=== PATIENT | female | born 1975 | race Caucasian/White ===

== ENCOUNTER 2023-03-13 00:12 | Emergency (ER) | payer MEDICAID, SELFPAY ==
[2023-03-13 00:18] VITALS: BP 141/96; PULSE 80; RESP 17; TEMP 36.9; O2SAT 97; BMI 37.5
[2023-03-13 00:19] VITALS: BP 141/96
--- NOTE | 2023-03-13 00:24 | ECG_ITS ---
The 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
--- NOTE | 2023-03-13 00:47 | ED.CHESTPAI1 ---
HPI - Chest Pain General Chief Complaint: Chest Pain Stated Complaint: CHEST PAIN Time Seen by Provider: 03/13/23 00:36 Source: patient Mode of arrival: Wheelchair Limitations: no limitations History of Present Illness HPI narrative: This 47-year-old female who states she has a history of heart disease and underwent coronary catheterization in [place] earlier this year presents for evaluation of pain in her upper abdomen that radiates up into her chest and states that she has some tingling and numbness of her left 5th finger. The patient states the symptoms started after eating 2 chili dog several days ago. She did not tell her because she did not want to worry him. She has not had any episodes of shortness of breath dizziness or diaphoresis. She does take a proton pump inhibitor. She still has her gallbladder and her states that at one point they thought that her gallbladder was her problem but they ruled that out. She has not had a fever. She states she did have a coughing spell prior to coming to the hospital where she thought she was going to vomit but did not throw up. She has not had any vomiting or diarrhea. I did review prior records and on 06/18/2022 she had a right upper quadrant ultrasound that showed thickening of the gallbladder without stones or pericholecystic fluid. Related Data Home Medications Medication Instructions Recorded Confirmed aspirin 81 mg tablet,delayed mg 03/13/23 release (Lynn Low Dose Aspirin) bumetanide 0.5 mg tablet mg 03/13/23 empagliflozin 10 mg tablet mg 03/13/23 (Jardiance) famotidine 20 mg tablet mg 03/13/23 metoprolol succinate 100 mg mg PO 03/13/23 tablet,extended release 24 hr omeprazole 40 mg capsule,delayed mg 03/13/23 release rosuvastatin 10 mg tablet mg 03/13/23 spironolactone 25 mg tablet mg 03/13/23 Allergies Allergy/AdvReac Type Severity Reaction Status Date / Time codeine AdvReac Mild Nausea Verified 03/13/23 00:25 keflex AdvReac Intermediate Hallucinati Uncoded 03/13/23 00:25 ng Review of Systems ROS Status of ROS 10 or more systems reviewed and unremarkable except as noted in history and below PFSH PFSH Social History Smoking status: Current every day smoker Exam Narrative Exam Narrative: Nurses note and vital signs reviewed and patient is not hypoxic. General: The patient appears well and in no apparent distress. Patient is resting comfortably on cart. Skin: Warm, dry, no pallor noted. There is no rash noted. Head: Normocephalic, atraumatic Eye: Normal conjunctiva, no drainage, EOMI. PERRL. no scleral icterus Ears, Nose, Mouth, and Throat: oral mucosa is moist. edentulous Cardiovascular: Regular Rate and Rhythm Respiratory: Patient is in no distress, no accessory muscle use, lungs are clear to auscultation, no wheezing, rales or rhonchi Back: non-tender, no CVA tenderness bilaterally to percussion. GI: Obese, soft, mild tenderness in the epigastrium and RUQ, no pulsatile masses, bowel sounds are normal Musculoskeletal: The patient has no evidence of calf tenderness, no pitting edema, symmetrical pulses noted bilaterally Neurological: A&O x4, normal speech Psychiatric: Cooperative Constitutional Vital Signs, click to edit/add: Last Vital Signs Temp 98.4 F 03/13/23 00:18 Pulse 80 03/13/23 00:18 Resp 17 03/13/23 00:18 BP 123/78 03/13/23 02:30 Pulse Ox 97 03/13/23 00:18 O2 Del Method Room Air 03/13/23 00:18 Course Vital Signs Vital signs: Vital Signs Temperature 98.4 F 03/13/23 00:18 Pulse Rate 80 03/13/23 00:18 Respiratory Rate 17 03/13/23 00:18 Blood Pressure 141/96 H 03/13/23 00:18 Pulse Oximetry 97 03/13/23 00:18 Oxygen Delivery Method Room Air 03/13/23 00:18 Temperature 98.4 F 03/13/23 00:18 Pulse Rate 80 03/13/23 00:18 Respiratory Rate 17 03/13/23 00:18 Blood Pressure 123/78 03/13/23 02:30 Pulse Oximetry 97 03/13/23 00:18 Oxygen Delivery Method Room Air 03/13/23 00:18 MDM - Chest Pain MDM Narrative Medical decision making narrative: This 47-year-old female who states she has a history of heart disease but had a negative cardiac catheter earlier this year presents for evaluation of pain in her upper abdomen that radiates up into her chest and numbness of her left 5th finger. The pain has been ongoing for the past several days after she ate 2 chili dogs. She has not had any vomiting or diarrhea. She states she is supposed to be on Eliquis but is not currently taking. The reason she is supposed to be on Eliquis is because she had a deep vein thrombosis in her arm after her cardiac cath. The patient's physical exam was benign. Her lungs are clear, pulses are brisk and equal. Abdomen is soft with mild tenderness in the epigastrium and right upper quadrant. She did have an ultrasound of her gallbladder in the recent past that showed gallbladder wall thickening without stones or pericholecystic fluid. Arrival an EKG was done that was a sinus rhythm at 77 beats for minute. She was medicated with 324 mg baby aspirin and IV Pepcid. On reevaluation she states she is feeling somewhat better but was still having some burning in her upper abdomen. She was then medicated with Toradol with control of her pain. She has a normal troponin. Normal d-dimer. Her white blood cell count is elevated at 14 without any sign of infection. Glucose is mildly elevated at 175. The remainder of her electrolytes, LFTs and lipase are normal. After a brief stay in emergency Department she requested to be discharged home because she was feeling better and her needed to get to work. I encouraged her to follow closely with her family physician and monitor her by mouth intake as she may have some degree of gastritis or biliary dyskinesia. I reviewed her chest x-ray and it is clear with mild cardiomegaly, no focal infiltrate and normal mediastinum Medical Records Data Medical records narrative: The [address] [address] Patient Name: CHINMAY HANNAH MRN: [id number] date: 1975 Sex: F Assigned Patient Location: MAIN Current Patient Location: MAIN Accession/Order Number: [id number] Exam Date: 06/18/2022 11:27 Report Date: 06/18/2022 12:36 At the request of: ALISHA MARKER Procedure: US SINGLE QUAD RT UPPER EXAMINATION: US SINGLE QUAD RT UPPER HISTORY: Abdominal pain ; right upper quadrant pain, epigastric pain COMPARISON: No relevant comparison available. TECHNIQUE: Transabdominal evaluation of the right upper quadrant. FINDINGS: LIVER: Normal size and echotexture. Color Doppler demonstrates patent hepatic veins. PORTAL VEIN: Duplex Doppler demonstrates normal hepatopetal flow pattern with flow velocity averaging 27 cm/s. GALLBLADDER: [Compression wall thickening, 4 mm. No stones or free fluid. BILIARY: No abnormal dilation or stones. Common bile duct diameter is within normal limits. PANCREASE: No visible mass, abnormal atrophy, or duct dilation. KIDNEY: No hydronephrosis. No visible mass or stones. Size: 10.3 x 5.3 x 4.1 cm Other: Free fluid within right pleural space. IMPRESSION: 1. Abnormal wall thickening of gallbladder without stones, Momin's sign, or free fluid; chronic versus acute cholecystitis. 2. Small right pleural effusion. Electronically authenticated by: JT GRADY Date: 2022-06-18 12:36 Electronically authenticated by: JT GRADY Date: 06/18/2022 12:36 Lab Data Labs: Lab Results 03/13/23 03/13/23 Range/Units 00:45 00:46 WBC 14.1 H (4.0-11.0) 10^3/uL RBC 5.08 (4.20-5.40) 10^6/uL Hgb 15.6 (12.0-16.0) g/dL Hct 48.2 H (36.0-48.0) % MCV 94.9 (81.0-99.0) fL MCH 30.7 (26.7-34.0) pg MCHC 32.4 (29.9-35.2) g/dL RDW 12.2 (11.0-15.0) % Plt Count 295 (150-450) 10^3/uL MPV 9.7 (9.5-13.5) fL Neut % (Auto) 81.2 H (43.0-75.0) % Lymph % (Auto) 10.3 L (20.5-60.0) % [place] % (Auto) 5.5 (1.7-12.0) % Eos % (Auto) 2.2 (0.9-7.0) % Baso % (Auto) 0.5 (0.2-2.0) % Neut # (Auto) 11.4 H (1.4-6.5) 10^3/uL Lymph # (Auto) 1.5 (1.2-3.8) 10^3/uL [place] # (Auto) 0.8 (0.3-0.8) 10^3/uL Eos # (Auto) 0.3 (0.0-0.7) 10^3/uL Baso # (Auto) 0.1 (0.0-0.1) 10^3/uL Abs Immat Gran (auto) 0.04 H (0.00-0.03) 10^3/uL Imm/Tot Granulo (auto) 0.3 (0.0-0.5) % D-Dimer 0.28 (<=0.59) mg/L FEU Sodium 140 (136-145) mmol/L Potassium 4.1 (3.5-5.1) mmol/L Chloride 103 (98-107) mmol/L Carbon Dioxide 26.9 (21.0-32.0) mmol/L Anion Gap 14.2 BUN 19.0 H (7.0-18.0) mg/dL Creatinine 1.19 H (0.55-1.02) mg/dL Est GFR ( Amer) 58 L (>=60) Est GFR (Non-Af Amer) 48 L (>=60) BUN/Creatinine Ratio 16.0 Glucose 175 H (74-106) mg/dL Calcium 9.2 (8.5-10.1) mg/dL Total Bilirubin 0.2 (0.2-1.0) mg/dL AST 24 (15-37) U/L ALT 25 (14-59) U/L Alkaline Phosphatase 102 (46-116) U/L Troponin I High Sens 7.6 (4.0-51.3) pg/mL Total Protein 8.2 (6.4-8.2) g/dL Albumin 3.8 (3.4-5.0) g/dL Globulin 4.4 g/dL Albumin/Globulin Ratio 0.9 Lipase 53.0 (16.0-77.0) U/L ECG Data Attestation: I personally reviewed and interpreted this ECG as follows: (EKG interpretation sinus rhythm at 77 beats for minute, normal axis, diffusely flattened T waves, no acute ST segment elevation or T-wave inversion) Heart Score History: Slightly/Non-Suspicious ECG: Normal Age: >45-<65 years Risk Factors: 1 or 2 Risk Factors Troponin: <Normal Limit Total Heart Score Recommendations & Risks:: 2 Discharge Plan Discharge Chief Complaint: Chest Pain Clinical Impression: Gastritis, Non-cardiac chest pain Patient Disposition: Home, Self-Care Time of Disposition Decision: 02:48 Condition: Good Prescriptions / Home Meds: No Action metoprolol succinate 100 mg tablet extended release 24 hr PO omeprazole 40 mg capsule,delayed release(DR/EC) aspirin [Lynn Low Dose Aspirin] 81 mg tablet,delayed release (DR/EC) spironolactone 25 mg tablet famotidine 20 mg tablet bumetanide 0.5 mg tablet rosuvastatin 10 mg tablet Jardiance 10 mg tablet Instructions: Gastritis (DC), Diet for Stomach Ulcers and Gastritis (ED), Noncardiac Chest Pain (ED) Stand Alone Forms: Portal Instructions Referrals: Physician,Non-Staff, MD [Primary Care Provider] - 1 week
--- NOTE | 2023-03-13 00:51 | XR_ITS ---
The [place] [id number] Patient Name: CHINMAY HANNAH MRN: [id number] date: 1975 Sex: F Assigned Patient Location: ER Current Patient Location: Accession/Order Number: [id number] Exam Date: 03/13/2023 01:10 Report Date: 03/13/2023 03:10 At the request of: ALISHA MARKER Procedure: XR chest 1V EXAM: XR chest 1V HISTORY: CP COMPARISON: CTA chest, 07/15/2022. TECHNIQUE: AP upright portable chest x-ray. FINDINGS: The heart, mediastinum, lungs and pleural spaces appear within normal limits. XR/XR chest 1V IMPRESSION: Nonacute chest. Electronically authenticated by: DUKE OSMAN Date: 03/13/2023 03:10
[2023-03-13 01:06] LABS: Basophils Absolute Auto 0.1 10^3/uL (0.0-0.1); Basophils Percent Auto 0.5 % (0.2-2.0); Eosinophils Absolute Auto 0.3 10^3/uL (0.0-0.7); Eosinophils Percent Auto 2.2 % (0.9-7.0); Hematocrit 48.2 % (36.0-48.0); Hemoglobin 15.6 g/dL (12.0-16.0); Immature Granulocytes Abs Auto 0.04 10^3/uL (0.00-0.03); Immature Granulocytes Pct Auto 0.3 % (0.0-0.5); Lymphocytes Absolute Auto 1.5 10^3/uL (1.2-3.8); Lymphocytes Percent Auto 10.3 % (20.5-60.0); Mean Corpuscular HGB Conc 32.4 g/dL (29.9-35.2); Mean Corpuscular Hemoglobin 30.7 pg (26.7-34.0); Mean Corpuscular Volume 94.9 fL (81.0-99.0); Mean Platelet Volume 9.7 fL (9.5-13.5); Monocytes Absolute Auto 0.8 10^3/uL (0.3-0.8); Monocytes Percent Auto 5.5 % (1.7-12.0); Neutrophils Absolute Auto 11.4 10^3/uL (1.4-6.5); Neutrophils Percent Auto 81.2 % (43.0-75.0); Platelet Count 295 10^3/uL (150-450); Red Blood Count 5.08 10^6/uL (4.20-5.40); Red Cell Distribution Width 12.2 % (11.0-15.0); White Blood Count 14.1 10^3/uL (4.0-11.0)
[2023-03-13] MEDS: 0.9 % SODIUM CHLORIDE 1,000 ML 125 ML IV (01:08)
[2023-03-13] MEDS: ASPIRIN 81 MG TAB.CHEW 324 MG PO (01:09)
[2023-03-13] MEDS: PANTOPRAZOLE SODIUM 40 MG VIAL IV (01:09)
[2023-03-13 01:26] LABS: Alanine Aminotransferase 25 U/L (14-59); Albumin Globulin Ratio 0.9; Albumin Level 3.8 g/dL (3.4-5.0); Alkaline Phosphatase 102 U/L (46-116); Anion Gap 14.2; Aspartate Amino Transferase 24 U/L (15-37); Bilirubin Total 0.2 mg/dL (0.2-1.0); Calcium 9.2 mg/dL (8.5-10.1); Carbon Dioxide 26.9 mmol/L (21.0-32.0); Chloride 103 mmol/L (98-107); Estimated GFR (African America 58 (>=60); Estimated GFR (Non-African Ame 48 (>=60); Globulin 4.4 g/dL; Glucose 175 mg/dL (74-106); Potassium 4.1 mmol/L (3.5-5.1); Sodium 140 mmol/L (136-145); Total Protein 8.2 g/dL (6.4-8.2); Troponin I High Sensitivity 7.6 pg/mL (4.0-51.3)
[2023-03-13 01:30] VITALS: BP 115/72
[2023-03-13 02:01] VITALS: BP 146/103
[2023-03-13 02:10] LABS: D Dimer 0.28 mg/L FEU (<=0.59)
[2023-03-13 02:30] VITALS: BP 123/78
[2023-03-13] MEDS: KETOROLAC TROMETHAMINE 30 MG/ML VIAL IVP (02:41)
[2023-03-13 02:55] VITALS: BP 123/63; PULSE 78; RESP 15; O2SAT 97
== END 2023-03-13 02:58 | disposition home or self-care (01) ==
PROVIDERS: Emergency Provider Emergency Medicine
DX: R07.89 Other chest pain (principal); K29.70 Gastritis, unspecified, without bleeding; Z79.82 Long term (current) use of aspirin; Z79.899 Other long term (current) drug therapy; F17.200 Nicotine dependence, unspecified, uncomplicated; Z86.718 Personal history of other venous thrombosis and embolism
CPT/HCPCS: 36415; 71045; 80053; 83690; 84484; 85025; 85378; 93005; 96374; 96375; 99285

== ENCOUNTER 2023-06-02 02:52 | Emergency (ER) | payer MEDICAID, SELFPAY ==
[2023-06-02 02:55] VITALS: BP 158/92; PULSE 78; RESP 16; TEMP 36.2; O2SAT 99; BMI 39.7
--- OUTSIDE RECORDS SUMMARY | 2023-06-02 03:03 | XMS_ITS | CCD ---
Author Name Unknown Address [address] [place] [address] Organization [facility] Care Team Providers Care Lab Scientist Name Role Phone PIERSON EDILSON, EDILSON~[phone] PIERSON Attending Unavailable PIERSON EDILSON, EDILSON~[phone] PIERSON Primary Care Unavailable PIERSON EDILSON, EDILSON~[phone] PIERSON Attending Unavailable PIERSON EDILSON, EDILSON~[phone] PIERSON Primary Care Unavailable PIERSON EDILSON, EDILSON~[phone] PIERSON Primary Care Unavailable PIERSON EDILSON, EDILSON~[phone] PIERSON Attending Unavailable MIRELA, ALVA Primary Care Unavailable DR ISACC SABA Attending Unavailable DR ISACC SABA Admitting Unavailable DR ISACC SABA Consulting Unavailable CELINE KO Consulting Unavailable MIRELA, ALVA Primary Care Unavailable LINDSEY, ROBERT Consulting Unavailable LINDSEY, ROBERT Attending Unavailable LINDSEY, ROBERT Admitting Unavailable LIOR JIANG Consulting Unavailable MIRELA, ALVA Primary Care Unavailable LINDSEY, ROBERT Consulting Unavailable LINDSEY, ROBERT Attending Unavailable LINDSEY, ROBERT Admitting Unavailable HAYLEE KILPATRICK Consulting Unavailable NATHAN HARRIS Consulting Unavailable LINDSEY, ROBERT Consulting Unavailable LINDSEY, ROBERT Attending Unavailable LINDSEY, ROBERT Admitting Unavailable MIRELA, ALVA Primary Care Unavailable PAY ., DR LAGOS Admitting Unavailable MIRELA, ALVA Primary Care Unavailable LIZANDRO LATIF Consulting Unavailable PAY ., DR LAGOS Attending Unavailable GELACIO FRAZIER Consulting Unavailable DR ISACC SABA Attending Unavailable DR ISACC SABA Admitting Unavailable MIRELA, ALVA Primary Care Unavailable DR ISACC SABA Consulting Unavailable LIOR JIANG Consulting Unavailable MIRELA, ALVA Primary Care Unavailable BRIAR, DR SHARRI Briggs Attending Unavailable NADERER, DR SHARRI Briggs Admitting Unavailable ROMNEY, DR LIZANDRO Ojeda Consulting Unavailable NADERER, DR SHARRI Briggs Consulting Unavailable LINDSEY, ROBERT Consulting Unavailable EDDY MELGOZA Consulting Unavailable MARKER ., DR BRITO Admitting Unavailable MARKER ., DR BRITO Attending Unavailable ZIKIRSTENER, DR JT Gao Consulting Unavailable MIRELA, ALVA Primary Care Unavailable MARKER ., DR BRITO Consulting Unavailable MARLON ., PENNY Attending Unavailable MARLON ., PENNY Admitting Unavailable MIRELA, ALVA Primary Care Unavailable MARLON ., PENNY Consulting Unavailable OSWALDO QUIROZ Consulting Unavailable MARKER ., DR BRITO Consulting Unavailable MARKER ., DR BRITO Attending Unavailable MIRELA, ALVA Primary Care Unavailable MARKER ., DR BRITO Admitting Unavailable LINDSEY, ROBERT Attending Unavailable LINDSEY, ROBERT Admitting Unavailable LINDSEY, ROBERT Consulting Unavailable MIRELA, ALVA Primary Care Unavailable DILCIA, PEDRO Consulting Unavailable TRINITY ELLIS Consulting Unavailable MARKER ., DR BRITO Admjoselo Unavailable MARKER ., DR BRITO Consulting Unavailable MARKER ., DR BRITO Attending Unavailable MIRELA, ALVA Primary Care Unavailable Mejia Josi CLAROS Primary Care Provider MEJIA, JAVANHAMID Jennifer Referring Unavailable MEJIA, MUHAMID M Primary Care Unavailable SAHDYJAMAR Robles Referring Unavailable MEJIA, MUHAMID M Primary Care Unavailable SHADYJAMAR Referring Unavailable MEJIA, MUHAMID M Primary Care Unavailable TYRON GRANDA Referring Unavailable MEJIA, MUHAMID M Primary Care Unavailable TYRON GRANDA Referring Unavailable MEJIA, MUHAMID M Primary Care Unavailable SHADYJAMAR Attending Unavailable SHADY, JAMAR M Referring Unavailable MEJIA, MUHAMID M Primary Care Unavailable Allergies Allergy Classification Reported Allergen(s) Allergy Type Date of Onset Reaction(s) Facility (7 sources) Codeine; Translations: [CODEINE] Drug Allergy 1 Anaphylaxis [facility] Repository (1 source) Cephalexin Drug Allergy 2 [facility] Repository (5 sources) Cephalexin; Translations: [CEPHALEXIN] Drug Allergy 2 [facility] Medications Current Medications Medication Drug Class(es) Dates Sig (Normalized) Sig (Original) [id number] 200 actuat albuterol 0.09 mg/actuat metered dose inhaler (4 sources) beta2-Adrenergic Agonist Start: 05-12-2022 take 2 puff(s) by inhalation every four hours as needed VENTOLIN HFA 90 mcg/actuation inhaler 2 puffs every 4 (four) hours as needed. 0 05/12/2022 Active apixaban 5 mg oral tablet (5 sources) Factor Xa Inhibitor Start: 11-28-2022 End: 04-03-2023 take 1 tablet by mouth in the morning, then take 1 tablet by mouth at bedtime apixaban (ELIQUIS) 5 mg tablet Take 1 tablet (5 mg total) by mouth in the morning and 1 tablet (5 mg total) before bedtime. 180 tablet 1 04/03/2023 Active aspirin 81 mg delayed release oral tablet (5 sources) Platelet Aggregation Inhibitor, Nonsteroidal Anti-inflammatory Drug Start: 09-16-2022 End: 04-03-2023 take 1 tablet by mouth in the morning aspirin 81 mg Take 1 tablet (81 mg total) by mouth in the morning. 90 tablet 2 04/03/2023 Active bumetanide 0.5 mg oral tablet (5 sources) Loop Diuretic Start: 01-14-2023 End: 03-09-2023 take 1 tablet by mouth twice daily before mealtime bumetanide (BUMEX) 0.5 mg tablet Indications: Primary hypertension , Combined systolic and diastolic congestive heart failure, unspecified HF chronicity (CMS-HCC) , Acute combined systolic and diastolic congestive heart failure (CMS-HCC) , Cardiomegaly TAKE 1 TABLET BY MOUTH TWICE DAILY BEFORE MEALS 60 tablet 10 03/09/2023 Active empagliflozin 10 mg oral tablet (5 sources) Sodium-Glucose Cotransporter 2 Inhibitor Start: 09-03-2022 End: 04-03-2023 take 1 tablet by mouth in the morning empagliflozin (JARDIANCE) 10 mg tablet tablet Take 1 tablet (10 mg total) by mouth in the morning. 90 tablet 1 04/03/2023 Active famotidine 20 mg oral tablet (4 sources) Histamine-2 Receptor Antagonist Start: 06-14-2022 take 1 tablet by mouth in the morning, then take 1 tablet by mouth at bedtime famotidine (PEPCID) 20 mg tablet Take 1 tablet (20 mg total) by mouth in the morning and 1 tablet (20 mg total) before bedtime. 0 06/14/2022 Active 24 hr isosorbide mononitrate 30 mg extended release oral tablet (4 sources) Nitrate Vasodilator Start: 01-14-2023 take 1 tablet by mouth once daily isosorbide mononitrate (IMDUR) 30 mg 24 hr tablet Take 1 tablet (30 mg total) by mouth daily. 90 tablet 2 01/14/2023 Active 24 hr metoprolol succinate 100 mg extended release oral tablet (5 sources) beta-Adrenergic Polo Start: 09-03-2022 End: 04-03-2023 take 1 tablet by mouth every twenty-four hours in the morning metoprolol succinate XL (TOPROL XL) 100 mg 24 hr tablet Take 1 tablet (100 mg total) by mouth in the morning. 90 tablet 1 04/03/2023 Active nystatin 100 unt/mg topical powder (4 sources) Polyene Antifungal Start: 08-28-2022 nystatin (MYCOSTATIN) powder Indications: Candidiasis of skin Apply 1 Application topically in the morning and 1 Application at noon and 1 Application in the evening and 1 Application before bedtime. 15 g 0 08/28/2022 Active omeprazole 40 mg delayed release oral capsule (5 sources) Proton Pump Inhibitor Start: 01-14-2023 End: 05-07-2023 take 1 capsule by mouth in the morning omeprazole (PriLOSEC) 40 mg capsule TAKE 1 CAPSULE BY MOUTH IN THE MORNING 30 capsule 10 05/07/2023 Active ondansetron 4 mg oral tablet (4 sources) Serotonin-3 Receptor Antagonist Start: 07-30-2022 take 1 tablet by mouth every six hours for nausea ondansetron (ZOFRAN) 4 mg tablet take 1 tablet by mouth every 6 hours if needed for nausea or vomiting 0 07/30/2022 Active promethazine hydrochloride 12.5 mg oral tablet (4 sources) Phenothiazine Start: 11-08-2021 take 1 tablet by mouth every six hours as needed for nausea promethazine (PHENERGAN) 12.5 mg tablet Indications: Migraine without status migrainosus, not intractable, unspecified migraine type , Nausea Take 1 tablet (12.5 mg total) by mouth every 6 (six) hours as needed for nausea or vomiting. 30 tablet 0 11/08/2021 Active rosuvastatin calcium 10 mg oral tablet (4 sources) HMG-CoA Reductase Inhibitor Start: 01-14-2023 take 2 tablets by mouth in the morning rosuvastatin (CRESTOR) 10 mg tablet Indications: Primary hypertension , 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) , ASCVD (arteriosclerotic cardiovascular disease) , Dyslipidemia Take 2 tablets (20 mg total) by mouth in the morning. 90 tablet 3 01/14/2023 Active sacubitril 24 mg / valsartan 26 mg oral tablet (5 sources) Angiotensin 2 Receptor Polo Start: 09-15-2022 End: 04-03-2023 take 1 tablet by mouth in the morning sacubitriL-valsarta n (ENTRESTO) 24-26 mg tablet Take 1 tablet by mouth in the morning and 1 tablet before bedtime. 180 tablet 1 04/03/2023 Active spironolactone 25 mg oral tablet (4 sources) Aldosterone Antagonist Start: 01-14-2023 take 1 tablet by mouth in the morning spironolactone (ALDACTONE) 25 mg tablet Take 1 tablet (25 mg total) by mouth in the morning. 30 tablet 6 01/14/2023 Active Problems Active Problems Problem Classification Problem Date Documented Date Episodic/Chronic Abdominal pain (8 sources) Unspecified abdominal pain; Translations: [Epigastric pain] Onset: 06-14-2022 Episodic Aortic and peripheral arterial embolism or thrombosis (4 sources) Thrombosis of arteries of upper extremity; Translations: [Embolism and thrombosis of arteries of the upper extremities] Onset: 09-12-2022 09-14-2022 Chronic Chronic obstructive pulmonary disease and bronchiectasis (2 sources) Bronchitis, not specified as acute or chronic; Translations: [BRONCHITIS NOT SPEC ACUTE/CHRON] Onset: 12-24-2021 Episodic Congestive heart failure; nonhypertensive (19 sources) Heart failure, unspecified; Translations: [Congestive heart failure] Onset: 07-16-2022 03-06-2023 Chronic Coronary atherosclerosis and other heart disease (4 sources) Arteriosclerotic vascular disease; Translations: [Atherosclerotic heart disease of [place] coronary artery without angina pectoris] Onset: 09-12-2022 09-14-2022 Chronic Diabetes mellitus without complication (1 source) Prediabetes; Translations: [PREDIABETES] Onset: 07-16-2022 Episodic Disorders of lipid metabolism (4 sources) Dyslipidemia; Translations: [Hyperlipidemia, unspecified] Onset: 09-12-2022 09-12-2022 Chronic Esophageal disorders (4 sources) Gastroesophageal reflux disease; Translations: [Gastro-esophageal reflux disease without esophagitis] Onset: 06-08-2018 09-14-2022 Chronic Essential hypertension (6 sources) Essential (primary) hypertension; Translations: [Essential hypertension] Onset: 06-08-2018 03-06-2023 Chronic Gastritis and duodenitis (1 source) Gastritis, unspecified, without bleeding; Translations: [GASTRITIS UNS WITHOUT BLEEDING] Onset: 06-18-2022 Episodic Headache; including migraine (1 source) Migraine, unspecified, not intractable, without status migrainosus; Translations: [MIGRAINE UNS NOT INTRACT W/O SM] Onset: 11-08-2021 Chronic Headache; including migraine (3 sources) Headache; including migraine; Translations: [HEADACHE UNSPECIFIED] Onset: 11-06-2021 Hypertension with complications and secondary hypertension (1 source) Hypertensive heart disease with heart failure; Translations: [HTN HEART DISEASE W/HEART FAIL] Onset: 07-16-2022 Chronic Mood disorders (4 sources) Depressive disorder; Translations: [Depression] Onset: 06-08-2018 11-08-2021 Chronic Nausea and vomiting (4 sources) Nausea with vomiting, unspecified; Translations: [NAUSEA WITH VOMITING UNSPECIFIED] Onset: 06-09-2022 Episodic Osteoarthritis (10 sources) Bilateral primary osteoarthritis of knee; Translations: [Unilateral primary osteoarthritis, right hip] Onset: 12-11-2015 09-18-2021 Chronic Other aftercare (1 source) Other usp (current) drug therapy; Translations: [OTH NURSING HOME CURRENT DRUG THERAPY] Onset: 07-16-2022 Episodic Other and ill-defined heart disease (1 source) Cardiomegaly; Translations: [Cardiomegaly] 03-06-2023 Chronic Other connective tissue disease (1 source) Presence of artificial knee joint, bilateral; Translations: [PRESENCE ARTIFICIAL KNEE JNT BILAT] Onset: 09-20-2021 Chronic Other nervous system disorders (1 source) Other chronic pain; Translations: [OTHER CHRONIC PAIN] Onset: 04-24-2022 Chronic Other nutritional; endocrine; and metabolic disorders (1 source) Morbid (severe) obesity due to excess calories; Translations: [MORBID SEVERE OBES D/T EXCESS GUERDA] Onset: 07-16-2022 Chronic Other nutritional; endocrine; and metabolic disorders (1 source) Body mass index (BMI) 39.0-39.9, adult; Translations: [BODY MASS INDEX BMI 39.0-39.9 ADULT] Onset: 07-16-2022 Chronic Other nutritional; endocrine; and metabolic disorders (1 source) Body mass index (BMI) 37.0-37.9, adult; Translations: [BODY MASS INDEX BMI 37.0-37.9 ADULT] Onset: 06-18-2022 Chronic Other nutritional; endocrine; and metabolic disorders (1 source) Body mass index (BMI) 38.0-38.9, adult; Translations: [BODY MASS INDEX BMI 38.0-38.9 ADULT] Onset: 12-24-2021 Chronic Other nutritional; endocrine; and metabolic disorders (1 source) Body mass index (BMI) 40.0-44.9, adult; Translations: [BODY MASS INDEX BMI 40.0-44.9 ADULT] Onset: 09-20-2021 Chronic Other nutritional; endocrine; and metabolic disorders (4 sources) Morbid obesity; Translations: [Morbid (severe) obesity due to excess calories] Onset: 06-08-2018 09-14-2022 Chronic Other screening for suspected conditions (not mental disorders or infectious disease) (7 sources) Other specified abnormal findings of blood chemistry; Translations: [Serum creatinine raised] Onset: 04-24-2022 09-12-2022 Episodic Peripheral and visceral atherosclerosis (5 sources) Occlusion of artery; 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[place] arteries of extremities, other extremity] Onset: 09-30-2022 09-30-2022 Chronic Residual codes; unclassified (4 sources) Obstructive sleep apnea syndrome; Translations: [Obstructive sleep apnea (adult) (pediatric)] Onset: 06-08-2018 09-14-2022 Chronic Spondylosis; intervertebral disc disorders; other back problems (2 sources) Other intervertebral disc degeneration, lumbar region; Translations: [OTH IV DISC DEGEN LUMBAR REGION] Onset: 09-20-2021 Chronic Spondylosis; intervertebral disc disorders; other back problems (1 source) Radiculopathy, lumbar region; Translations: [Radiculopathy, lumbar region] Onset: 05-16-2023 Episodic Substance-related disorders (1 source) Nicotine dependence, cigarettes, uncomplicated; Translations: [NICOTINE DEPEND CIGARETTES UNCOMP] Onset: 07-16-2022 Chronic Unclassified (2 sources) COUGH, UNSPECIFIED; Translations: [COUGH, UNSPECIFIED] Onset: 05-14-2022 Unclassified (3 sources) LOW BACK PAIN, UNSPECIFIED; Translations: [LOW BACK PAIN, UNSPECIFIED] Onset: 09-20-2021 Unclassified (1 source) CONTACT W/AND (SUSP) EXPOS COVID-19; Translations: [CONTACT W/AND (SUSP) EXPOS COVID-19] Onset: 01-24-2022 Past or Other Problems Problem Classification Problem Date Documented Date Episodic/Chronic Fluid and electrolyte disorders (4 sources) Hypokalemia; Translations: [Hypokalemia] Onset: 09-13-2022 09-13-2022 Episodic Lymphadenitis (1 source) Nonspecific lymphadenitis, unspecified; Translations: [NONSPECIFIC LYMPHADENITIS UNS] Onset: 04-04-2022 Episodic Mood disorders (4 sources) Mood disorders Onset: 09-14-2022 09-14-2022 Other connective tissue disease (3 sources) Other specified soft tissue disorders; Translations: [OTHER SPEC SOFT TISSUE DISORDERS] Onset: 04-22-2022 Episodic Other connective tissue disease (4 sources) Pain in right arm; Translations: [Pain in right arm] Onset: 09-12-2022 09-12-2022 Episodic Other ear and sense organ disorders (3 sources) Otalgia, left ear; Translations: [OTALGIA LEFT EAR] Onset: 04-03-2022 Episodic Other nervous system disorders (4 sources) Paresthesia of skin; Translations: [PARESTHESIA OF SKIN] Onset: 01-22-2022 Episodic Other non-traumatic joint disorders (1 source) Pain in left shoulder; Translations: [PAIN IN LEFT SHOULDER] Onset: 01-24-2022 Episodic Other non-traumatic joint disorders (4 sources) Pain in unspecified knee; Translations: [Pain in joint, lower leg] Onset: 06-08-2018 11-08-2021 Episodic Pneumonia (except that caused by tuberculosis or sexually transmitted disease) (1 source) Pneumonia, unspecified organism; Translations: [PNEUMONIA UNSPECIFIED ORGANISM] Onset: 12-24-2021 Episodic Residual codes; unclassified (1 source) Edema, unspecified; Translations: [EDEMA UNSPECIFIED] Onset: 04-24-2022 Episodic Respiratory failure; insufficiency; arrest (adult) (4 sources) Hypercapnic respiratory failure; Translations: [Respiratory failure, unspecified with hypercapnia] Onset: 06-09-2018 11-08-2021 Episodic Unclassified (1 source) COUGH, UNSPECIFIED; Translations: [COUGH, UNSPECIFIED] Onset: 05-11-2022 Unclassified (1 source) LOW BACK PAIN, UNSPECIFIED; Translations: [LOW BACK PAIN, UNSPECIFIED] Onset: 09-13-2021 Results Test Name Value Interpretation Reference Range Facility MR LUMBAR SPINE WO CONTon MR LUMBAR SPINE WO CONT MR LUMBAR SPINE WO CONT MR LUMBAR SPINE WO CONT HISTORY: Lumbar radiculopathy. Pain, persistent despite conservative management. TECHNIQUE: Multiplanar multisequence MR of the lumbar spine was performed prior to and following the uncomplicated administration of ProHance intravenous contrast. COMPARISON: None. FINDINGS: Preserved lumbar vertebral body heights. No substantial listhesis. No suspicious bone marrow replacing process. Questionable nonacute left L4 pars fracture. Trace bone marrow edema about L2-L3, degenerative. Similarly, edema about left L4-5 posterior facet. Conus terminates at L1-2, no distal cord signal change. T12-L1:No substantial focal thecal sac or neural foraminal narrowing. L1-L2:Disc height loss, minimal disc bulge. Minimal thecal sac and neural foraminal narrowing. L2-L3:Disc height loss, marginal disc osteophyte extends the right greater than left foraminal and extra foraminal regions. Ligamentum flavum thickening. Mild thecal sac narrowing. Mild right greater than left neural foraminal narrowing. L3-L4:Diffuse disc bulge extends the left greater than right foraminal and extra foraminal regions. Ligamentum flavum thickening. Mild thecal sac narrowing. Mild left greater than right neural foraminal narrowing, peripheral displacement exiting L3 nerve, without overt impingement [series 7 image #13, annotated]. L4-L5:Diffuse disc bulge, marginal disc osteophyte extends into the right greater than left foraminal and extra foraminal regions. Ligamentum flavum thickening. Mild/moderate thecal sac narrowing. Mild/moderate bilateral neural foraminal narrowing. Posterior facet arthropathy.. L5-S1:Marginal disc osteophyte extends into the right greater than left foraminal and extra foraminal regions, superimposed central disc protrusion. Mild thecal sac narrowing. Mild bilateral neural foraminal narrowing. Bilateral posterior facet arthropathy. Paraspinal soft tissues grossly within normal IMPRESSION: 1. Multilevel discogenic degenerative changes, changes most noted at L2-3 and L4-5. 2. Posterior facet arthropathy about L4-5 and L5-S1. Questionable left L5 pars defect. I, Elvis Maciel MD have personally reviewed the image(s) and agree with and/or edited the report Finalized by Elvis Maciel MD on 05/27/2023 10:23 PM Normal [facility] MAMM SCREENING BILATERAL W C soaping machine back tender 05-15-2023 MAMM SCREENING BILATERAL W CAD MAMM SCREENING BILATERAL W CAD EXAM: MAMM SCREENING BILATERAL W CAD, 05/14/2023 2:55 PM CLINICAL INDICATIONS: Screening, Encounter for screening mammogram for malignant neoplasm of breast. COMPARISON: 05/09/2022 TECHNIQUE: Bilateral digital tomosynthesis MLO and CC views of the breasts were obtained, with creation of synthetic 2D views. Computer aided detection was utilized. FINDINGS: The breasts are almost entirely fatty. There are no suspicious masses, calcifications, or areas of architectural distortions. IMPRESSION: No mammographic evidence of malignancy. BI-RADS: BI-RADS 1 - Negative Recommendation: Routine screening mammogram in 1 year. Finalized by Angelito Mccray MD on 05/15/2023 8:34 AM 1 a MAMM 1 YR Normal [facility] AMYLASEon 07-15-2022 Amylase [Catalytic activity/Vol] 23 U/L Critically low 25-115 [facility] Comment on above: Performed By: #### C RAFY, LENO, LIPA, CMP ####[facility] [id number] Telephone, [place] [address]NkSherrie Coates BNPon 07-15-2022 Natriuretic peptide B (Bld) [Mass/Vol] 26612.0 pg/mL Critically high <=900.0 [facility] Comment on above: Performed By: #### B CERTIFIED ART THERAPIST ####[facility] [id number] Telephone, [place] [address]EnDr. Marcell Coates CARDIAC ISACC 3-6on 3 CK [Catalytic activity/Vol] 72 U/L Normal 26-192 [facility] Comment on above: Performed By: #### B MP #### [facility] [address], [place] [address] Dr. Marcell Coates CK.MB [Mass/Vol] 1.21 ng/mL Normal <=3.60 [facility] Comment on above: Performed By: #### B MP #### [facility] [address] [address] [address] Marcell Coates HSTROP 47.6 pg/mL Normal 4.0-51.3 [facility] Comment on above: Result Comment: CUT- OFF POINTS HAVE BEEN ESTABLISHED BASED ON THE FOURTH UNIVERSAL DEFINITIONS OF MYOCARDIAL INFARCTION. THE UPPER REFERENCE LIMIT (URL) OF TROPONIN, DEFINED THE 99TH PERCENTILE OF cTnI DISTRIBUTION IN A REFERENCE POPULATION, HAS BEEN CONFIRMED THE DECISION THRESHOLD FOR MO DIAGNOSIS. Performed By: #### B MP #### [facility] [address] [address] [address] Marcell Coates CARDIAC ISACC ADMITon 023 CK [Catalytic activity/Vol] 64 U/L Normal 26-192 [facility] Comment on above: Performed By: #### C MADM, LENO, LIPA, CMP ####[facility] [id number] Telephone, [place] [address]CzDr. Marcell Coates CK.MB [Mass/Vol] 1.33 ng/mL Normal <=3.60 [facility] Comment on above: Performed By: #### C MADM, LENO, LIPA, CMP ####[facility] [id number] [place] [id number]. Marcell Coates HSTROP 47.5 pg/mL Normal 4.0-51.3 [facility] Comment on above: Result Comment: CUT- OFF POINTS HAVE BEEN ESTABLISHED BASED ON THE FOURTH UNIVERSAL DEFINITIONS OF MYOCARDIAL INFARCTION. THE UPPER REFERENCE LIMIT (URL) OF TROPONIN, DEFINED THE 99TH PERCENTILE OF cTnI DISTRIBUTION IN A REFERENCE POPULATION, HAS BEEN CONFIRMED THE DECISION THRESHOLD FOR MO DIAGNOSIS. Performed By: #### C MADM, LENO, LIPA, CMP ####[facility] [id number] Telephone, [place] [address]AwDr. Marcell Coates CHASITY 44 ng/mL Normal 9-82 [facility] Comment on above: Performed By: #### C MADM, LENO, LIPA, CMP ####[facility] [id number] [place] [id number]. Marcell Coates CBC AUTO DIFFon 07-15-2022 BASO # 0.1 103/ul Normal 0.0-0.1 [facility] Comment on above: Performed By: #### B MP #### [facility] [address] [address] [address] Marcell Coates Basophils/100 WBC (Bld) 1.0 % Normal 0.2-2.0 [facility] Comment on above: Performed By: #### B MP #### [facility] [address] [place] [address] Dr. Marcell Coates EO # 0.4 103/ul Normal 0.0-0.7 [facility] Comment on above: Performed By: #### B MP #### [facility] [address] [place] [address] Dr. Marcell Coates Eosinophils/100 WBC (Bld) 3.0 % Normal 0.9-7.0 [facility] Comment on above: Performed By: #### B MP #### [facility] [address] [address] [address] Marcell Coates Erythrocyte distribution width (RBC) [Ratio] 14.2 % Normal 11.0-15.0 [facility] Comment on above: Performed By: #### B MP #### [facility] [address] [place] [address] Dr. Marcell Coates Hematocrit (Bld) [Volume fraction] 48.1 % Critically high 36.0-48.0 [facility] Comment on above: Performed By: #### B MP #### [facility] [address] [place] [address] Dr. Marcell Coates Hemoglobin (Bld) [Mass/Vol] 15.7 g/dL Normal 12.0-16.0 [facility] Comment on above: Performed By: #### B MP #### [facility] Laboratory [address] [place] [address] Dr. Marcell Coates IG # 0.03 10e3/ul Normal 0.00-0.03 [facility] Comment on above: Performed By: #### B MP #### [facility] [address] [place] [address] Dr. Marcell Coates IG % 0.2 % Normal 0.0-0.5 [facility] Comment on above: Performed By: #### B MP #### [facility] [address] [place] [address] Dr. Marcell Coates LYMPH # 3.8 103/ul Normal 1.2-3.8 [facility] Comment on above: Performed By: #### B MP #### [facility] [address] [place] [address] Dr. Marcell Coates Lymphocytes/100 WBC (Bld) 30.5 % Normal 20.5-60.0 [facility] Comment on above: Performed By: #### B MP #### [facility] [address] [place] [address] Dr. Marcell Coates MANUAL DIFF REQ NO Normal [facility] Comment on above: Performed By: #### B MP #### [facility] [address] [place] [address] Dr. Marcell Coates MCH (RBC) [Entitic mass] 29.1 pg Normal 26.7-34.0 [facility] Comment on above: Performed By: #### B MP #### [facility] [address] [place] [address] Dr. Marcell Coates MCHC (RBC) [Mass/Vol] 32.6 g/dL Normal 29.9-35.2 [facility] Comment on above: Performed By: #### B MP #### [facility] [address] [place] [address] Dr. Marcell Coates MCV (RBC) [Entitic vol] 89.2 fL Normal 81.0-99.0 [facility] Comment on above: Performed By: #### B MP #### [facility] [address] [address] [address] Marcell Coates MONO # 0.9 103/ul Critically high 0.3-0.[address] [facility] Comment on above: Performed By: #### B MP #### [facility] [address] [address] [address] Marcell Coates Monocytes/100 WBC (Bld) 6.9 % Normal 1.7-12.0 [facility] Comment on above: Performed By: #### B MP #### [facility] [address] [address] [address] Marcell Coates NEUT # 7.3 103/ul Critically high 1.4-6.[address] [facility] Comment on above: Performed By: #### B MP #### [facility] [address] [address] [address] Marcell Coates Neutrophils/100 WBC (Bld) 58.4 % Normal 43.0-75.0 [facility] Comment on above: Performed By: #### B MP #### [facility] [address] [address] [address] Marcell Coates Platelet mean volume (Bld) [Entitic vol] 9.9 fL Normal 9.5-13.5 [facility] Comment on above: Performed By: #### B MP #### [facility] [address] [address] [address] Marcell Coates PLT 288 103/ul Normal 150-450 [facility] Comment on above: Performed By: #### B MP #### [facility] [address] [address] [address] Marcell Coates RBC 5.39 106/ul Normal 4.20-5.40 [facility] Comment on above: Performed By: #### B MP #### [facility] [address] [address] [address] Marcell Coates WBC 12.5 103/ul Critically high 4.0-11.0 [facility] Comment on above: Performed By: #### B MP #### [facility] [address] [address] [address] Marcell Coates CTA CHEST WO W CONon 023 CTA CHEST WO W CON EXAMINATION: CTA CHAMP ST WO W CON HISTORY: SHORTNESS OF BREATH right upper quadrant abdominal pain COMPARISON: CT abdomen pelvis 06/09/2022, CT chest 12/22/2021 TECHNIQUE: CT angiography of the pulmonary arteries following the administration of 100 mL Omnipaque 350 intravenous contrast. Coronal and sagittal MIP (maximum intensity projection) images were performed. 3-D reconstruction. Dose reduction techniques were achieved by using automated exposure control and/or adjustment of mA and/or kV according to patient size and/or use of iterative reconstruction technique. FINDINGS: No evidence for acute pulmonary embolism, thoracic aortic aneurysm, or aortic dissection. Cardiomegaly with moderate pericardial effusion measuring up to 16 mm thick at the right pericardial region. Dilated left atrium measuring at least 5 cm in AP diameter. Central airway is patent. Moderate bilateral upper and lower lung interstitial edema and small right greater than left pleural effusions. No lung consolidation or pneumothorax. Small hiatal hernia. No acute bony abnormality. IMPRESSION: No evidence for acute pulmonary embolism, thoracic aortic aneurysm, or aortic dissection. Cardiomegaly with moderate pericardial effusion measuring up to 16 mm thick at the right pericardial region. Correlate clinically for heart congestion etiology. Moderate bilateral upper and lower lung interstitial edema and small right greater than left pleural effusions. Electronically authenticated by: TRINITY ELLIS Date: 2022-07-15 02:50 Normal [facility] LACTATE/LACTIC ACIDon 2022 Lactate [Moles/Vol] 1.2 mmol/L Normal 0.4-2.0 [facility] Comment on above: Performed By: #### L IPA, LENO, CMP #### [facility] [address] [address] [address] Marcell Coates LIPASEon 07-15-2022 Lipase [Catalytic activity/Vol] 116.0 U/L Normal 73.0-393.0 [facility] Comment on above: Performed By: #### B MP #### [facility] [address] [address] [address] Marcell Coates PROF 14(COMP METB)on 023 Albumin [Mass/Vol] 3.5 g/dL Normal 3.4-5.0 [facility] Comment on above: Performed By: #### C LENO HILLMAN, LIPA, CMP ####[facility] [address] [address]Dr. Marcell Coates Albumin/Globulin [Mass ratio] 1.1 {ratio} Normal [facility] Comment on above: Performed By: #### C LENO HILLMAN, LIPA, CMP ####[facility] [address] [address]Dr. Marcell Coates ALP [Catalytic activity/Vol] 106 U/L Normal 46-116 [facility] Comment on above: Performed By: #### C LENO HILLMAN, LIPA, CMP ####[facility] [address] [address]Dr. Marcell Coates ALT [Catalytic activity/Vol] 31 U/L Normal 14-59 [facility] Comment on above: Performed By: #### C RAFY, LENO, LIPA, CMP ####[facility] [address] [place], [place] [address]Dr. Marcell Coates Anion gap [Moles/Vol] 14.8 mmol/L Normal [facility] Comment on above: Performed By: #### C RAFY, LENO, LIPA, CMP ####[facility] [address] [address]Dr. Marcell Coates AST [Catalytic activity/Vol] 30 U/L Normal 15-37 [facility] Comment on above: Performed By: #### C RAFY, LENO, LIPA, CMP ####[facility] [address] [address]Dr. Marcell Coates Bilirubin [Mass/Vol] 0.4 mg/dL Normal 0.2-1.0 [facility] Comment on above: Performed By: #### C MADM, LENO, LIPA, CMP ####[facility] [address] [address]Dr. Marcell Coates Calcium [Mass/Vol] 8.8 mg/dL Normal 8.5-10.1 [facility] Comment on above: Performed By: #### C MADM, LENO, LIPA, CMP ####[facility] [address] [address]Dr. Marcell Coates Chloride [Moles/Vol] 106 mmol/L Normal 98-107 [facility] Comment on above: Performed By: #### C MADM, LENO, LIPA, CMP ####[facility] [address] [address]Dr. Marcell Coates CO2 [Moles/Vol] 26.6 mmol/L Normal 21.0-32.0 [facility] Comment on above: Performed By: #### C MADM, LENO, LIPA, CMP ####[facility] [address] [place], [place] [address]Dr. Marcell Coates Creatinine [Mass/Vol] 1.11 mg/dL Critically high 0.55-1.02 [facility] Comment on above: Performed By: #### C MADM, LENO, LIPA, CMP ####[facility] [address] [place], [place] [address]Dr. Marcell Coates EGFR-AF JAMAICAN >60 Normal >=60 [facility] Comment on above: Performed By: #### C MADM, LENO, LIPA, CMP ####[facility] [address] [address]Dr. Marcell Caotes EGFR-NON AF JAMAICAN 52 mL/min/1.73m2 Critically low >=60 [facility] Comment on above: Performed By: #### C MADM, LENO, LIPA, CMP ####[facility] [address] [address]Dr. Marcell Coates Globulin (S) [Mass/Vol] 3.1 g/dL Normal [facility] Comment on above: Performed By: #### C MADM, LENO, LIPA, CMP ####[facility] [address] [address]Dr. Marcell Coates Glucose [Mass/Vol] 126 mg/dL Critically high 74-106 [facility] Comment on above: Performed By: #### C MADM, LENO, LIPA, CMP ####[facility] [address] [address]Dr. Marcell Coates Potassium [Moles/Vol] 3.4 mmol/L Critically low 3.5-5.1 [facility] Comment on above: Performed By: #### C MADM, LENO, LIPA, CMP ####[facility] [address] [address]Dr. Marcell Coates Protein [Mass/Vol] 6.6 g/dL Normal 6.4-8.2 [facility] Comment on above: Performed By: #### C MADM, LENO, LIPA, CMP ####[facility] [address] [address]Dr. Marcell Coates Sodium [Moles/Vol] 144 mmol/L Normal 136-145 [facility] Comment on above: Performed By: #### C ANDRESM, LENO, LIPA, CMP ####[facility] [address] [address]Dr. Marcell Coates Urea nitrogen [Mass/Vol] 16.0 mg/dL Normal 7.0-18.0 [facility] Comment on above: Performed By: #### C RAFY, LENO, LIPA, CMP ####[facility] [address] [address]Dr. Marcell Coates Urea nitrogen/Creatinine [Mass ratio] 14.4 mg/mg Normal [facility] Comment on above: Performed By: #### C MADM, LENO, LIPA, CMP ####[facility] [address] [address]Dr. Marcell Coates XR ABD FLAT UP_PA Germaine 07-15 XR ABD FLAT UP_PA CH EXAM: XR ABD FLAT UP_PA CH HISTORY: Pain COMPARISON: Chest x-ray dated 05/11/2022. TECHNIQUE: Single frontal view of the chest as well as upright and supine views of the abdomen FINDINGS: Stable enlarged cardiac silhouette is seen. Mild prominence of the pulmonary vascular markings may be seen, which may represent pulmonary vascular congestion. Please correlate clinically. No significant pleural effusion or obvious pneumothorax is seen. Nonspecific bowel gas pattern is seen. No air-filled distended loops of bowel is seen to suggest bowel obstruction. Large volume of stool seen in the colon. No definite pathologic calcification is seen. No gross pneumoperitoneum is seen. The visualized osseous structures appear unremarkable. IMPRESSION: Mild prominence of the pulmonary vascular markings may be seen, which may represent pulmonary vascular congestion. Please correlate clinically. Large volume of stool seen in the colon. Electronically authenticated by: PEDRO HA Date: 2022-07-14 23:48 Normal [facility] US SINGLE QUAD RT UPPERon US SINGLE QUAD RT UPPER EXAMINATION: US SINGLE QUAD RT UPPER HISTORY: Abdominal pain ; right upper quadrant pain, epigastric pain COMPARISON: No relevant comparison available. TECHNIQUE: Transabdominal evaluation of the right upper quadrant. FINDINGS: LIVER: Normal size and echotexture. Color Doppler demonstrates patent hepatic veins. PORTAL VEIN: Duplex Doppler demonstrates normal hepatopetal flow pattern with flow velocity averaging 27 cm/s. GALLBLADDER: [Compression wall thickening, 4 mm. No stones or free fluid. BILIARY: No abnormal dilation or stones. Common bile duct diameter is within normal limits. PANCREASE: No visible mass, abnormal atrophy, or duct dilation. KIDNEY: No hydronephrosis. No visible mass or stones. Size: 10.3 x 5.3 x 4.1 cm Other: Free fluid within right pleural space. IMPRESSION: 1. Abnormal wall thickening of gallbladder without stones, Momin's sign, or free fluid; chronic versus acute cholecystitis. 2. Small right pleural effusion. Electronically authenticated by: JT GRADY Date: 2022-06-18 12:36 Normal [facility] AMYLASEon 06-14-2022 Amylase [Catalytic activity/Vol] 19 U/L Critically low 25-115 [facility] Comment on above: Performed By: #### L IPA, LENO, CMP #### [facility] [address] [address] [address] Marcell Coates CBC AUTO DIFFon 06-14-2022 BASO # 0.1 103/ul Normal 0.0-0.1 [facility] Comment on above: Performed By: #### B MP #### [facility] [address] [address] [address] Marcell Coates Basophils/100 WBC (Bld) 0.6 % Normal 0.2-2.0 [facility] Comment on above: Performed By: #### B MP #### [facility] [address] [place] [address] Dr. Marcell Coates EO # 0.3 103/ul Normal 0.0-0.7 [facility] Comment on above: Performed By: #### B MP #### [facility] [address] [place] [address] Dr. Marcell Coates Eosinophils/100 WBC (Bld) 1.8 % Normal 0.9-7.0 [facility] Comment on above: Performed By: #### B MP #### [facility] [address] [place] [address] Dr. Marcell Coates Erythrocyte distribution width (RBC) [Ratio] 14.2 % Normal 11.0-15.0 [facility] Comment on above: Performed By: #### B MP #### [facility] [address] [place] [address] Dr. Marcell Coates Hematocrit (Bld) [Volume fraction] 44.9 % Normal 36.0-48.0 [facility] Comment on above: Performed By: #### B MP #### [facility] [address] [place] [address] Dr. Marcell Coates Hemoglobin (Bld) [Mass/Vol] 14.8 g/dL Normal 12.0-16.0 [facility] Comment on above: Performed By: #### B MP #### [facility] [address] [place] [address] Dr. Marcell Coates IG # 0.18 10e3/ul Critically high 0.00-0.03 [facility] Comment on above: Performed By: #### B MP #### [facility] [address] [place] [address] Dr. Marcell Coates IG % 1.3 % Critically high 0.0-0.5 [facility] Comment on above: Performed By: #### B MP #### [facility] [address] [place] [address] Dr. Marcell Coates LYMPH # 3.4 103/ul Normal 1.2-3.8 [facility] Comment on above: Performed By: #### B MP #### [facility] [address] [place] [address] Dr. Marcell Coates Lymphocytes/100 WBC (Bld) 24.4 % Normal 20.5-60.0 [facility] Comment on above: Performed By: #### B MP #### [facility] [address] [place] [address] Dr. Marcell Coates MANUAL DIFF REQ NO Normal [facility] Comment on above: Performed By: #### B MP #### [facility] [address] [place] [address] Dr. Marcell Coates MCH (RBC) [Entitic mass] 29.4 pg Normal 26.7-34.0 [facility] Comment on above: Performed By: #### B MP #### [facility] [address] [place] [address] Dr. Marcell Coates MCHC (RBC) [Mass/Vol] 33.0 g/dL Normal 29.9-35.2 [facility] Comment on above: Performed By: #### B MP #### [facility] [address] [place] [address] Dr. Marcell Coates MCV (RBC) [Entitic vol] 89.3 fL Normal 81.0-99.0 [facility] Comment on above: Performed By: #### B MP #### [facility] [address] [place] [address] Dr. Marcell Coates MONO # 1.1 103/ul Critically high 0.3-0.8 [facility] Comment on above: Performed By: #### B MP #### [facility] [address] [place] [address] Dr. Marcell Coates Monocytes/100 WBC (Bld) 8.1 % Normal 1.7-12.0 [facility] Comment on above: Performed By: #### B MP #### [facility] [address] [place] [address] Dr. Marcell Coates NEUT # 8.9 103/ul Critically high 1.4-6.5 [facility] Comment on above: Performed By: #### B MP #### [facility] [address] [address] [address] Marcell Coates Neutrophils/100 WBC (Bld) 63.8 % Normal 43.0-75.0 [facility] Comment on above: Performed By: #### B MP #### [facility] [address] [address] [address] Marcell Coates Platelet mean volume (Bld) [Entitic vol] 10.2 fL Normal 9.5-13.5 [facility] Comment on above: Performed By: #### B MP #### [facility] [address] [place] [address] Dr. Marcell Coates PLT 284 103/ul Normal 150-450 [facility] Comment on above: Performed By: #### B MP #### [facility] [address] [place] [address] Dr. Marcell Coates RBC 5.03 106/ul Normal 4.20-5.40 [facility] Comment on above: Performed By: #### B MP #### [facility] [address] [address] [address] Marcell Coates WBC 13.9 103/ul Critically high 4.0-11.0 [facility] Comment on above: Performed By: #### B MP #### [facility] [address] [place] [address] Dr. Marcell Coates LIPASEon 06-14-2022 Lipase [Catalytic activity/Vol] 81.0 U/L Normal 73.0-393.0 [facility] Comment on above: Performed By: #### L LENO STERN, CMP #### [facility] [address] [address] [address] Marcell Coates PROF 14(COMP METB)on 023 Albumin [Mass/Vol] 3.5 g/dL Normal 3.4-5.0 [facility] Comment on above: Performed By: #### L LENO STERN, CMP #### [facility] [address] [place] [address] Dr. Marcell Coates Albumin/Globulin [Mass ratio] 1.3 {ratio} Normal [facility] Comment on above: Performed By: #### L LENO STERN, CMP #### [facility] [address] [address] [address] Marcell Coates ALP [Catalytic activity/Vol] 121 U/L Critically high 46-116 [facility] Comment on above: Performed By: #### L LENO STERN, CMP #### [facility] [address] [address] [address] Marcell Coates ALT [Catalytic activity/Vol] 32 U/L Normal 14-59 [facility] Comment on above: Performed By: #### L LENO STERN, CMP #### [facility] [address] [address] [address] Marcell Coates Anion gap [Moles/Vol] 16.4 mmol/L Normal [facility] Comment on above: Performed By: #### L LENO STERN, CMP #### [facility] [address] [address] [address] Marcell Coates AST [Catalytic activity/Vol] 31 U/L Normal 15-37 [facility] Comment on above: Performed By: #### L ELNO STERN, CMP #### [facility] [address] [address] [address] Marcell Coates Bilirubin [Mass/Vol] 0.5 mg/dL Normal 0.2-1.0 [facility] Comment on above: Performed By: #### L LENO STERN, CMP #### [facility] [address] [place] [address] Dr. Marcell Coates Calcium [Mass/Vol] 8.6 mg/dL Normal 8.5-10.1 [facility] Comment on above: Performed By: #### L LENO STERN, CMP #### [facility] [address] [address] [address] Marcell Coates Chloride [Moles/Vol] 104 mmol/L Normal 98-107 [facility] Comment on above: Performed By: #### L LENO STERN, CMP #### [facility] [address] [address] [address] Marcell Coates CO2 [Moles/Vol] 21.2 mmol/L Normal 21.0-32.0 [facility] Comment on above: Performed By: #### L LENO STERN, CMP #### [facility] [address] [address] [address] Marcell Coates Creatinine [Mass/Vol] 1.13 mg/dL Critically high 0.55-1.02 [facility] Comment on above: Performed By: #### L LENO STERN, CMP #### [facility] [address] [address] [address] Marcell Coates EGFR-AF JAMAICAN >60 Normal >=60 [facility] Comment on above: Performed By: #### L LENO STERN, CMP #### [facility] [address] [place] [address] Dr. Marcell Coates EGFR-NON AF JAMAICAN 51 mL/min/1.73m2 Critically low >=60 [facility] Comment on above: Performed By: #### L LENO STERN, CMP #### [facility] [address] [address] [address] Marcell Coates Globulin (S) [Mass/Vol] 2.6 g/dL Normal [facility] Comment on above: Performed By: #### L LENO STERN, CMP #### [facility] [address] [address] [address] Marcell Coates Glucose [Mass/Vol] 139 mg/dL Critically high 74-106 [facility] Comment on above: Performed By: #### L LENO STERN, CMP #### [facility] [address] [address] [address] Marcell Coates Potassium [Moles/Vol] 3.6 mmol/L Normal 3.5-5.1 [facility] Comment on above: Performed By: #### L LENO STERN, CMP #### [facility] [address] [address] [address] Marcell Coates Protein [Mass/Vol] 6.1 g/dL Critically low 6.4-8.2 [facility] Comment on above: Performed By: #### L LEENA LENO, CMP #### [facility] [address] [address] [address] Marcell Coates Sodium [Moles/Vol] 138 mmol/L Normal 136-145 [facility] Comment on above: Performed By: #### L IPA, LENO, CMP #### [facility] [address] [address] [address] Marecll Coates Urea nitrogen [Mass/Vol] 18.0 mg/dL Normal 7.0-18.0 [facility] Comment on above: Performed By: #### L LEENA LENO, CMP #### [facility] [address] [address] [address] Marcell Coates Urea nitrogen/Creatinine [Mass ratio] 15.9 mg/mg Normal [facility] Comment on above: Performed By: #### L LENO STERN, CMP #### [facility] [address] [place] [address] Dr. Marcell Coates TROPONIN, HIGH SENSITIVITYon 06-14-2022 HSTROP 36.3 pg/mL Normal 4.0-51.3 [facility] Comment on above: Result Comment: CUT- OFF POINTS HAVE BEEN ESTABLISHED BASED ON THE FOURTH UNIVERSAL DEFINITIONS OF MYOCARDIAL INFARCTION. THE UPPER REFERENCE LIMIT (URL) OF TROPONIN, DEFINED THE 99TH PERCENTILE OF cTnI DISTRIBUTION IN A REFERENCE POPULATION, HAS BEEN CONFIRMED THE DECISION THRESHOLD FOR MO DIAGNOSIS. Performed By: #### H STROPN ####[facility] [address] [address]Dr. Marcell Coates AMYLASEon 06-09-2022 Amylase [Catalytic activity/Vol] 22 U/L Critically low 25-115 [facility] Comment on above: Performed By: #### B MP #### [facility] [address] [address] [address] Marcell Coates CBC AUTO DIFFon 06-09-2022 BASO # 0.1 103/ul Normal 0.0-0.1 [facility] Comment on above: Performed By: #### C BC #### [facility] [address] [address] [address] Marcell Coates Basophils/100 WBC (Bld) 0.6 % Normal 0.2-2.0 [facility] Comment on above: Performed By: #### C BC #### [facility] [address] [place] [address] Dr. Marcell Coates EO # 0.5 103/ul Normal 0.0-0.7 [facility] Comment on above: Performed By: #### C BC #### [facility] [address] [place] [address] Dr. Marcell Coates Eosinophils/100 WBC (Bld) 4.0 % Normal 0.9-7.0 [facility] Comment on above: Performed By: #### C BC #### [facility] [address] [place] [address] Dr. Marcell Coates Erythrocyte distribution width (RBC) [Ratio] 13.9 % Normal 11.0-15.0 [facility] Comment on above: Performed By: #### C BC #### [facility] [address] [place] [address] Dr. Marcell Coates Hematocrit (Bld) [Volume fraction] 46.2 % Normal 36.0-48.0 [facility] Comment on above: Performed By: #### C BC #### [facility] [address] [place] [address] Dr. Marcell Coates Hemoglobin (Bld) [Mass/Vol] 15.2 g/dL Normal 12.0-16.0 [facility] Comment on above: Performed By: #### C BC #### [facility] [address] [place] [address] Dr. Marcell Coates IG # 0.02 10e3/ul Normal 0.00-0.03 [facility] Comment on above: Performed By: #### C BC #### [facility] [address] [place] [address] Dr. Marcell Coates IG % 0.2 % Normal 0.0-0.5 [facility] Comment on above: Performed By: #### C BC #### [facility] [address] [place] [address] Dr. Marcell Coates LYMPH # 3.8 103/ul Normal 1.2-3.8 [facility] Comment on above: Performed By: #### C BC #### [facility] [address] [place] [address] Dr. Marcell Coates Lymphocytes/100 WBC (Bld) 31.4 % Normal 20.5-60.0 [facility] Comment on above: Performed By: #### C BC #### [facility] [address] [place] [address] Dr. Marcell Coates MANUAL DIFF REQ NO Normal [facility] Comment on above: Performed By: #### C BC #### [facility] [address] [place] [address] Dr. Marcell Coates MCH (RBC) [Entitic mass] 29.6 pg Normal 26.7-34.0 [facility] Comment on above: Performed By: #### C BC #### [facility] [address] [place] [address] Dr. Marcell Coates MCHC (RBC) [Mass/Vol] 32.9 g/dL Normal 29.9-35.2 [facility] Comment on above: Performed By: #### C BC #### [facility] [address] [place] [address] Dr. Marcell Coates MCV (RBC) [Entitic vol] 90.1 fL Normal 81.0-99.0 [facility] Comment on above: Performed By: #### C BC #### [facility] [address] [place] [address] Dr. Marcell Coates MONO # 0.9 103/ul Critically high 0.3-0.[address] [facility] Comment on above: Performed By: #### C BC #### [facility] [address] [place] [address] Dr. Marcell Coates Monocytes/100 WBC (Bld) 7.7 % Normal 1.7-12.0 [facility] Comment on above: Performed By: #### C BC #### [facility] [address] [place] [address] Dr. Marcell Coates NEUT # 6.7 103/ul Critically high 1.4-6.[address] [facility] Comment on above: Performed By: #### C BC #### [facility] [address], [place] [address] Dr. Marcell Coates Neutrophils/100 WBC (Bld) 56.1 % Normal 43.0-75.0 [facility] Comment on above: Performed By: #### C BC #### [facility] [address] [id number] [address] Marcell Coates Platelet mean volume (Bld) [Entitic vol] 9.6 fL Normal 9.5-13.5 [facility] Comment on above: Performed By: #### C BC #### [facility] [address] [id number] Marcell Coates PLT 297 103/ul Normal 150-450 [facility] Comment on above: Performed By: #### C BC #### [facility] [address] [address] [address] Marcell Coates RBC 5.13 106/ul Normal 4.20-5.40 [facility] Comment on above: Performed By: #### C BC #### [facility] [address], [place] [address] Dr. Marcell Coates WBC 11.9 103/ul Critically high 4.0-11.0 [facility] Comment on above: Performed By: #### C BC #### [facility] [address] [place], [place] [id number] Dr. Marcell Coates CT ABD/PELVIS WO CONon 06-09 CT ABD/PELVIS WO CON EXAM: CT ABD/PELVIS WO CON 06/08/2022 11:13 PM EDT OH001 CLINICAL STATEMENT: UNSPECIFIED ABDOMINAL PAIN COMPARISON: No prior studies are available at the time of dictation. TECHNIQUE: Helically acquired images were obtained of the abdomen and pelvis without IV contrast. No oral contrast was administered. AEC is utilized. 2-D reconstructed images are provided. FINDINGS: The gallbladder is unremarkable. There are no radiopaque renal or ureteric calculi. There is no hydronephrosis or hydroureter. The upper abdominal solid organs are unremarkable. There is no bowel obstruction or free air. There is no ascites. There is no evidence of aortic aneurysm. There is no retroperitoneal adenopathy. There is no appendicitis or diverticulitis. There are no pelvic masses or loculated fluid collections. The bladder is decompressed. The lung bases are clear. Multilevel degenerative changes of the lumbosacral spine. There are no destructive bone lesions identified. IMPRESSION: No acute abnormality. Electronically authenticated by: OSWALDO QUIROZ Date: 2022-06-09 01:12 Normal [facility] URINE PROFILEon 3 Bilirubin Ql (U) Negative Normal NEGATIVE [facility] Comment on above: Performed By: #### B MP #### [facility] [address] [place] [address] Dr. Marcell Coates Clarity (U) CLEAR Normal CLEAR [facility] Comment on above: Performed By: #### B MP #### [facility] [address] [place] [address] Dr. Marcell Coates Color (U) LT. YELLOW Normal YELLOW [facility] Comment on above: Performed By: #### B MP #### [facility] [address] [place] [address] Dr. Marcell Coates ERUAHD A micrscopic examination will be performed if indicated. Normal [facility] Comment on above: Performed By: #### B MP #### [facility] [address] [place] [address] Dr. Marcell Coates Glucose Ql (U) Negative Normal NEGATIVE [facility] Comment on above: Performed By: #### B MP #### [facility] [address] [place] [address] Dr. Marcell Coates Hemoglobin Ql (U) Negative Normal NEGATIVE [facility] Comment on above: Performed By: #### B MP #### [facility] [address] [place] [address] Dr. Marcell Coates Ketones Ql (U) Negative Normal NEGATIVE [facility] Comment on above: Performed By: #### B MP #### [facility] [address] [place] [address] Dr. Marcell Coates LEUKOCYTES Negative Normal NEGATIVE [facility] Comment on above: Performed By: #### B MP #### [facility] [address] [place] [address] Dr. Marcell Coates Nitrite Ql (U) Negative Normal NEGATIVE [facility] Comment on above: Performed By: #### B MP #### [facility] [address] [place] [address] Dr. Marcell Coates pH (U) 6.0 [pH] Normal 5-9 [facility] Comment on above: Performed By: #### B MP #### [facility] [address] [place] [address] Dr. Marcell Coates Protein (U) [Mass/Vol] 30 mg/dL Abnormal NEGATIVE/ TRACE [facility] Comment on above: Performed By: #### B MP #### [facility] [address] [place] [address] Dr. Marcell Coates SPEC GRAVITY <=1.005 Abnormal 1.005-<=1.025 [facility] Comment on above: Performed By: #### B MP #### [facility] [address] [place] [address] Dr. Marcell Coates UR MICRO IND NOT INDICATED Normal [facility] Comment on above: Performed By: #### B MP #### [facility] [address] [place] [address] Dr. Marcell Coates Urobilinogen Qn (U) 0.2 {Jl'U}/dL Normal 0.2 - 1. 0 [facility] Comment on above: Performed By: #### B MP #### [facility] [address] [place] [address] Dr. Marcell Coates LIPASEon 06-09-2022 Lipase [Catalytic activity/Vol] 82.0 U/L Normal 73.0-393.0 [facility] Comment on above: Performed By: #### B MP #### [facility] [address] [place] [address] Dr. Marcell Coates PROF 14(COMP METB)on 023 Albumin [Mass/Vol] 3.6 g/dL Normal 3.4-5.0 [facility] Comment on above: Performed By: #### B MP #### [facility] [address] [place] [address] Dr. Marcell Coates Albumin/Globulin [Mass ratio] 1.2 {ratio} Normal [facility] Comment on above: Performed By: #### B MP #### [facility] [address] [place] [address] Dr. Marcell Coates ALP [Catalytic activity/Vol] 92 U/L Normal 46-116 [facility] Comment on above: Performed By: #### B MP #### [facility] [address] [place] [address] Dr. Marcell Coates ALT [Catalytic activity/Vol] 30 U/L Normal 14-59 [facility] Comment on above: Performed By: #### B MP #### [facility] [address] [place] [address] Dr. Marcell Coates Anion gap [Moles/Vol] 12.0 mmol/L Normal [facility] Comment on above: Performed By: #### B MP #### [facility] [address] [place] [address] Dr. Marcell Coates AST [Catalytic activity/Vol] 25 U/L Normal 15-37 [facility] Comment on above: Performed By: #### B MP #### [facility] [address] [place] [address] Dr. Marcell Coates Bilirubin [Mass/Vol] 0.4 mg/dL Normal 0.2-1.0 [facility] Comment on above: Performed By: #### B MP #### [facility] [address] [place] [address] Dr. Marcell Coates Calcium [Mass/Vol] 8.7 mg/dL Normal 8.5-10.1 [facility] Comment on above: Performed By: #### B MP #### [facility] [address] [place] [address] Dr. Marcell Coates Chloride [Moles/Vol] 103 mmol/L Normal 98-107 [facility] Comment on above: Performed By: #### B MP #### [facility] [address] [place] [address] Dr. Marcell Coates CO2 [Moles/Vol] 24.5 mmol/L Normal 21.0-32.0 [facility] Comment on above: Performed By: #### B MP #### [facility] [address] [address] [address] Marcell Coates Creatinine [Mass/Vol] 1.04 mg/dL Critically high 0.55-1.02 [facility] Comment on above: Performed By: #### B MP #### [facility] [address] [address] [address] Marcell Coates EGFR-AF JAMAICAN >60 Normal >=60 [facility] Comment on above: Performed By: #### B MP #### [facility] [address] [address] [address] Marcell Coates EGFR-NON AF J[place]ICAN 56 mL/min/1.73m2 Critically low >=60 [facility] Comment on above: Performed By: #### B MP #### [facility] [address] [place] [address] Dr. Marcell Coates Globulin (S) [Mass/Vol] 3.0 g/dL Normal [facility] Comment on above: Performed By: #### B MP #### [facility] [address] [address] [address] Marcell Coates Glucose [Mass/Vol] 109 mg/dL Critically high 74-106 [facility] Comment on above: Performed By: #### B MP #### [facility] [address] [address] [address] Marcell Coates Potassium [Moles/Vol] 3.5 mmol/L Normal 3.5-5.1 [facility] Comment on above: Performed By: #### B MP #### [facility] [address] [address] [address] Marcell Coates Protein [Mass/Vol] 6.6 g/dL Normal 6.4-8.2 [facility] Comment on above: Performed By: #### B MP #### [facility] [address] [place] [address] Dr. Marcell Coates Sodium [Moles/Vol] 136 mmol/L Normal 136-145 [facility] Comment on above: Performed By: #### B MP #### [facility] [address] [address] [address] Marcell Coates Urea nitrogen [Mass/Vol] 10.0 mg/dL Normal 7.0-18.0 [facility] Comment on above: Performed By: #### B MP #### [facility] [address] [address] [address] Marcell Coates Urea nitrogen/Creatinine [Mass ratio] 9.6 mg/mg Normal [facility] Comment on above: Performed By: #### B MP #### [facility] [address] [address] [address] Marcell Coates XR CHEST 1 Von 05-11-2022 XR CHEST 1 V EXAM: XR CHEST 1 V HISTORY: COUGH COMPARISON: 04/22/2022 and before TECHNIQUE: Chest single view. FINDINGS: Exam is limited by patient body habitus. Lines/tubes/devices: None. Cardiomediastinum: Cardiac silhouette appears stable, mildly to moderately enlarged. Stable mediastinal silhouette. Vasculature: Mild central congestion. Mildly increased interstitial markings can be related to congestion or infiltrates. Lungs/pleura: Hazy opacity over the lung bases likely from overlying soft tissue attenuation. Suspect opacity in the left lung base, which could be related to pleural effusion with adjacent atelectasis/consolidat ion. Possible trace right pleural effusion. No focal consolidation seen on the right. No visualized pneumothorax. Bones/soft tissues: Bony thorax appears grossly unchanged as seen. Regional soft tissues appear unremarkable. IMPRESSION: 1. Stable enlarged cardiac silhouette, could be related to cardiomegaly with or without pericardial effusion. 2. Similar increased interstitial markings, could be related to edema. 3. Possible left basilar pleural/parenchymal disease as described. FOLLOW-UP: Follow-up as clinically warranted. Electronically authenticated by: LIOR JIANG Date: 2022-05-11 03:02 Normal [facility] BNPon 04-22-2022 Natriuretic peptide B (Bld) [Mass/Vol] 9289.0 pg/mL Critically high <=450.0 [facility] Comment on above: Performed By: #### B CERTIFIED ART THERAPIST, BMP #### [facility] [address] [address] [address] Marcell Coates CBC AUTO DIFFon 04-22-2022 BASO # 0.1 103/ul Normal 0.0-0.1 [facility] Comment on above: Performed By: #### L LENO STERN, CMP #### [facility] [address] [address] [address] Marcell Coates Basophils/100 WBC (Bld) 0.6 % Normal 0.2-2.0 [facility] Comment on above: Performed By: #### L LENO STERN, CMP #### [facility] [address] [address] [address] Marcell Coates EO # 0.4 103/ul Normal 0.0-0.7 [facility] Comment on above: Performed By: #### L LENO STERN, CMP #### [facility] [address] [place] [address] Dr. Marcell Coates Eosinophils/100 WBC (Bld) 2.9 % Normal 0.9-7.0 [facility] Comment on above: Performed By: #### L LENO STERN, CMP #### [facility] [address] [place] [address] Dr. Marcell Coates Erythrocyte distribution width (RBC) [Ratio] 14.5 % Normal 11.0-15.0 [facility] Comment on above: Performed By: #### L LENO STERN, CMP #### [facility] [address] [place] [address] Dr. Marcell Coates Hematocrit (Bld) [Volume fraction] 41.6 % Normal 36.0-48.0 [facility] Comment on above: Performed By: #### L LENO STERN, CMP #### [facility] [address] [place] [address] Dr. Marcell Coates Hemoglobin (Bld) [Mass/Vol] 13.1 g/dL Normal 12.0-16.0 [facility] Comment on above: Performed By: #### L LENO STERN, CMP #### [facility] [address] [place] [address] Dr. Marcell Coates IG # 0.05 10e3/ul Critically high 0.00-0.03 [facility] Comment on above: Performed By: #### L IPA, LENO, CMP #### [facility] [address] [place] [address] Dr. Marcell Coates IG % 0.4 % Normal 0.0-0.5 [facility] Comment on above: Performed By: #### L IPA, LENO, CMP #### [facility] [address] [place] [address] Dr. Marcell Coates LYMPH # 3.1 103/ul Normal 1.2-3.8 [facility] Comment on above: Performed By: #### L IPA, LENO, CMP #### [facility] [address] [place] [address] Dr. Marcell Coates Lymphocytes/100 WBC (Bld) 22.1 % Normal 20.5-60.0 [facility] Comment on above: Performed By: #### L IPA, LENO, CMP #### [facility] [address] [place] [address] Dr. Marcell Coates MANUAL DIFF REQ NO Normal [facility] Comment on above: Performed By: #### L IPA, LENO, CMP #### [facility] [address] [place] [address] Dr. Marcell Coates MCH (RBC) [Entitic mass] 29.8 pg Normal 26.7-34.0 [facility] Comment on above: Performed By: #### L IPA, LENO, CMP #### [facility] [address] [place] [address] Dr. Marcell Coates MCHC (RBC) [Mass/Vol] 31.5 g/dL Normal 29.9-35.2 [facility] Comment on above: Performed By: #### L IPA, LENO, CMP #### [facility] [address] [place] [address] Dr. Marcell Coates MCV (RBC) [Entitic vol] 94.5 fL Normal 81.0-99.0 [facility] Comment on above: Performed By: #### L IPA, LENO, CMP #### [facility] [address] [place] [address] Dr. Marcell Coates MONO # 0.9 103/ul Critically high 0.3-0.[address] [facility] Comment on above: Performed By: #### L LENO STERN, CMP #### [facility] [address] [address] [address] Marcell Coates Monocytes/100 WBC (Bld) 6.1 % Normal 1.7-12.0 [facility] Comment on above: Performed By: #### L LENO STERN, CMP #### [facility] [address] [address] [address] Marcell Coates NEUT # 9.5 103/ul Critically high 1.4-6.[address] [facility] Comment on above: Performed By: #### L LENO STERN, CMP #### [facility] [address] [place] [address] Dr. Marcell Coates Neutrophils/100 WBC (Bld) 67.9 % Normal 43.0-75.0 [facility] Comment on above: Performed By: #### L LENO STERN, CMP #### [facility] [address] [place] [address] Dr. Marcell Coates Platelet mean volume (Bld) [Entitic vol] 10.0 fL Normal 9.5-13.5 [facility] Comment on above: Performed By: #### L LENO STERN, CMP #### [facility] [address] [place] [address] Dr. Marcell Coates PLT 285 103/ul Normal 150-450 [facility] Comment on above: Performed By: #### L LENO STERN, CMP #### [facility] [address] [place] [address] Dr. Marcell Coates RBC 4.40 106/ul Normal 4.20-5.40 [facility] Comment on above: Performed By: #### L LENO STERN, CMP #### [facility] [address] [place] [address] Dr. Marcell Coates WBC 13.9 103/ul Critically high 4.0-11.0 [facility] Comment on above: Performed By: #### L LENO STERN, CMP #### [facility] [address] [address] [address] Marcell Coates PROF CHEM 8 (BAS METB)on Anion gap [Moles/Vol] 15.0 mmol/L Normal [facility] Comment on above: Performed By: #### B CERTIFIED ART THERAPIST, BMP #### [facility] [address] [place] [address] Dr. Marcell Coates Calcium [Mass/Vol] 9.1 mg/dL Normal 8.5-10.1 [facility] Comment on above: Performed By: #### B CERTIFIED ART THERAPIST, BMP #### [facility] [address] [place] [address] Dr. Marcell Coates Chloride [Moles/Vol] 107 mmol/L Normal 98-107 [facility] Comment on above: Performed By: #### B CERTIFIED ART THERAPIST, BMP #### [facility] [address] [place] [address] Dr. Marcell Coates CO2 [Moles/Vol] 23.4 mmol/L Normal 21.0-32.0 [facility] Comment on above: Performed By: #### B CERTIFIED ART THERAPIST, BMP #### [facility] [address] [place] [address] Dr. Marcell Coates Creatinine [Mass/Vol] 1.00 mg/dL Normal 0.55-1.02 [facility] Comment on above: Performed By: #### B CERTIFIED ART THERAPIST, BMP #### [facility] [address] [place] [address] Dr. Marcell Coates EGFR-AF J[place]ICAN >60 Normal >=60 [facility] Comment on above: Performed By: #### B CERTIFIED ART THERAPIST, BMP #### [facility] [address] [place] [address] Dr. Marcell Coates EGFR-NON AF JAMAICAN 59 mL/min/1.73m2 Critically low >=60 [facility] Comment on above: Performed By: #### B CERTIFIED ART THERAPIST, BMP #### [facility] [address] [place] [address] Dr. Marcell Coates Glucose [Mass/Vol] 166 mg/dL Critically high 74-106 [facility] Comment on above: Performed By: #### B CERTIFIED ART THERAPIST, BMP #### [facility] [address] [address] [address] Marcell Coates Potassium [Moles/Vol] 3.4 mmol/L Critically low 3.5-5.1 [facility] Comment on above: Performed By: #### B CERTIFIED ART THERAPIST, BMP #### [facility] [address] [address] [address] Marcell Coates Sodium [Moles/Vol] 142 mmol/L Normal 136-145 [facility] Comment on above: Performed By: #### B CERTIFIED ART THERAPIST, BMP #### [facility] [address] [address] [address] Marcell oCates Urea nitrogen [Mass/Vol] 21.0 mg/dL Critically high 7.0-18.0 [facility] Comment on above: Performed By: #### B CERTIFIED ART THERAPIST, BMP #### [facility] [address] [address] [address] Marcell Coates Urea nitrogen/Creatinine [Mass ratio] 21.0 mg/mg Normal [facility] Comment on above: Performed By: #### B CERTIFIED ART THERAPIST, BMP #### [facility] [address] [address] [address] Marcell Coates TROPONIN, HIGH SENSITIVITYon 04-22-2022 HSTROP 48.9 pg/mL Normal 4.0-51.3 [facility] Comment on above: Result Comment: CUT- OFF POINTS HAVE BEEN ESTABLISHED BASED ON THE FOURTH UNIVERSAL DEFINITIONS OF MYOCARDIAL INFARCTION. THE UPPER REFERENCE LIMIT (URL) OF TROPONIN, DEFINED THE 99TH PERCENTILE OF cTnI DISTRIBUTION IN A REFERENCE POPULATION, HAS BEEN CONFIRMED THE DECISION THRESHOLD FOR MO DIAGNOSIS. Performed By: #### H STROPN ####[facility] [id number] [place] [id number]. Marcell Coates XR CHEST 1 Von 04-22-2022 XR CHEST 1 V EXAMINATION: XR CHES T 1 V HISTORY: Bilateral extremity swelling COMPARISON: Portable chest 01/22/2021 TECHNIQUE: Portable chest FINDINGS: In comparison with the prior study the heart is enlarged and there is questionable interstitial thickening. The lung parenchyma is free of consolidation or infiltrate. No pneumothorax or pleural effusion. The cardiac, mediastinal and hilar contours are normal. The visualized osseous structures exhibit no gross abnormality. IMPRESSION: Cardiac enlargement and interstitial thickening Electronically authenticated by: LIZANDRO LATIF Date: 2022-04-22 19:45 Normal [facility] CARDIAC ISACC 3-6on 2 CK [Catalytic activity/Vol] 63 U/L Normal 26-192 [facility] Comment on above: Performed By: #### C MREP ####[facility] [id number] [id number]. Marcell Coates CK.MB [Mass/Vol] 1.16 ng/mL Normal <=3.60 [facility] Comment on above: Performed By: #### C MREP ####[facility] [id number] [id number]. Marcell Coates HSTROP 27.4 pg/mL Normal 4.0-51.3 [facility] Comment on above: Result Comment: CUT- OFF POINTS HAVE BEEN ESTABLISHED BASED ON THE FOURTH UNIVERSAL DEFINITIONS OF MYOCARDIAL INFARCTION. THE UPPER REFERENCE LIMIT (URL) OF TROPONIN, DEFINED THE 99TH PERCENTILE OF cTnI DISTRIBUTION IN A REFERENCE POPULATION, HAS BEEN CONFIRMED THE DECISION THRESHOLD FOR MO DIAGNOSIS. Performed By: #### C MREP ####[facility] [id number] [place] [address]Dr. Marcell Coates CARDIAC ISACC ADMITon 022 CK [Catalytic activity/Vol] 67 U/L Normal 26-192 [facility] Comment on above: Performed By: #### C MADM, BMP ####[facility] [id number] [id number]. Marcell Coates CK.MB [Mass/Vol] 0.84 ng/mL Normal <=3.60 [facility] Comment on above: Performed By: #### C MADM, BMP ####[facility] [facility] [id number] [place] [id number]. Marcell Coates HSTROP 25.4 pg/mL Normal 4.0-51.3 [facility] Comment on above: Result Comment: CUT- OFF POINTS HAVE BEEN ESTABLISHED BASED ON THE FOURTH UNIVERSAL DEFINITIONS OF MYOCARDIAL INFARCTION. THE UPPER REFERENCE LIMIT (URL) OF TROPONIN, DEFINED THE 99TH PERCENTILE OF cTnI DISTRIBUTION IN A REFERENCE POPULATION, HAS BEEN CONFIRMED THE DECISION THRESHOLD FOR MO DIAGNOSIS. Performed By: #### C RAFY BMP ####[facility] [address] [place] [address]Dr. Marcell Coates CHASITY 44 ng/mL Normal 9-82 [facility] Comment on above: Performed By: #### C RAFY BMP ####[facility] [address] [place] [address]Dr. Marcell Coates CBC AUTO DIFFon 01-22-2022 BASO # 0.1 103/ul Normal 0.0-0.1 [facility] Comment on above: Performed By: #### L LENO STERN CMP #### [facility] [address] [place] [address] Dr. Marcell Coates Basophils/100 WBC (Bld) 0.7 % Normal 0.2-2.0 [facility] Comment on above: Performed By: #### L LENO STERN, CMP #### [facility] [address] [place] [address] Dr. Marcell Coates EO # 0.5 103/ul Normal 0.0-0.7 [facility] Comment on above: Performed By: #### L LENO STERN, CMP #### [facility] [address] [place] [address] Dr. Marcell Coates Eosinophils/100 WBC (Bld) 4.4 % Normal 0.9-7.0 [facility] Comment on above: Performed By: #### L ELNO STERN, CMP #### [facility] [address] [place] [address] Dr. Marcell Coates Erythrocyte distribution width (RBC) [Ratio] 13.3 % Normal 11.0-15.0 [facility] Comment on above: Performed By: #### L LENO STERN, CMP #### [facility] [address] [place] [address] Dr. Marcell Coates Hematocrit (Bld) [Volume fraction] 41.9 % Normal 36.0-48.0 [facility] Comment on above: Performed By: #### L LENO STERN, CMP #### [facility] [address] [address] [address] Marcell Coates Hemoglobin (Bld) [Mass/Vol] 14.2 g/dL Normal 12.0-16.0 [facility] Comment on above: Performed By: #### L IPA LENO, CMP #### [facility] [address] [address] [address] Marcell Coates IG # 0.03 10e3/ul Normal 0.00-0.03 [facility] Comment on above: Performed By: #### L IPA LENO, CMP #### [facility] [address] [place] [address] Dr. Marcell Coates IG % 0.2 % Normal 0.0-0.5 [facility] Comment on above: Performed By: #### L LEENA LENO, CMP #### [facility] [address] [place] [address] Dr. Marcell Coates LYMPH # 4.0 103/ul Critically high 1.2-3.[address] [facility] Comment on above: Performed By: #### L LENO STERN, CMP #### [facility] [address] [place] [address] Dr. Marcell Coates Lymphocytes/100 WBC (Bld) 32.9 % Normal 20.5-60.0 [facility] Comment on above: Performed By: #### L LENO STERN, CMP #### [facility] [address] [place] [address] Dr. Marcell Coates MANUAL DIFF REQ NO Normal The [facility] Comment on above: Performed By: #### L LEENA LENO, CMP #### [facility] [address] [address] [address] Marcell Coates MCH (RBC) [Entitic mass] 30.3 pg Normal 26.7-34.0 [facility] Comment on above: Performed By: #### L LEENA LENO, CMP #### [facility] [address] [address] [address] Marcell oCates MCHC (RBC) [Mass/Vol] 33.9 g/dL Normal 29.9-35.2 [facility] Comment on above: Performed By: #### L LENO STERN, CMP #### [facility] [address] [place] [address] Dr. Marcell Coates MCV (RBC) [Entitic vol] 89.5 fL Normal 81.0-99.0 [facility] Comment on above: Performed By: #### L LENO STERN, CMP #### [facility] [address] [place] [address] Dr. Marcell Coates MONO # 0.9 103/ul Critically high 0.3-0.[address] [facility] Comment on above: Performed By: #### L LENO STERN, CMP #### [facility] [address] [place] [address] Dr. Marcell Coates Monocytes/100 WBC (Bld) 7.3 % Normal 1.7-12.0 [facility] Comment on above: Performed By: #### L LENO STERN, CMP #### [facility] [address] [place] [address] Dr. Marcell Coates NEUT # 6.6 103/ul Critically high 1.4-6.[address] [facility] Comment on above: Performed By: #### L LENO STERN, CMP #### [facility] [address] [place] [address] Dr. Marcell Coates Neutrophils/100 WBC (Bld) 54.5 % Normal 43.0-75.0 [facility] Comment on above: Performed By: #### L LENO STERN, CMP #### [facility] [address] [place] [address] Dr. Marcell Coates Platelet mean volume (Bld) [Entitic vol] 10.0 fL Normal 9.5-13.5 [facility] Comment on above: Performed By: #### L LENO STERN, CMP #### [facility] [address] [place] [address] Dr. Marcell Coates PLT 250 103/ul Normal 150-450 [facility] Comment on above: Performed By: #### L LENO STERN, CMP #### [facility] [address] [place] [address] Dr. Marcell Coates RBC 4.68 106/ul Normal 4.20-5.40 [facility] Comment on above: Performed By: #### L LENO STERN, CMP #### [facility] [address] [place], [place] [address] Dr. Marcell Coates WBC 12.1 103/ul Critically high 4.0-11.0 [facility] Comment on above: Performed By: #### L LENO STERN CMP #### [facility] [id number] Marcell Coates [address] HEAD WO CONon 01-22-2022 CT HEAD WO CON NONCONTRAST HEAD CT COMPARISON: Head CT 11/06/2021. CLINICAL HISTORY: Left-sided numbness. TECHNIQUE: Routine noncontrast images of the brain obtained. CT examination of the head without IV contrast. Dose reduction techniques were achieved by using: automated exposure control and/or adjustment of mA and /or kV according to patient size and/or use of iterative reconstruction technique. FINDINGS: Paranasal sinuses and mastoid air cells are clear. Intraorbital contents are unremarkable. No acute bony abnormality. Intracranially, there is no evidence of hemorrhage, mass effect, or midline shift. Ventricles and cisternal spaces are age appropriate. IMPRESSION: No acute intracranial abnormality. Electronically authenticated by: HAYLEE KILPATRICK Date: 2022-01-22 01:46 Normal [facility] PROF CHEM 8 (BAS METB)on Anion gap [Moles/Vol] 13.4 mmol/L Normal [facility] Comment on above: Performed By: #### Coleen HILLMAN BMP ####[facility] [address] [place] [id number]. Marcell Coates Calcium [Mass/Vol] 9.6 mg/dL Normal 8.5-10.1 [facility] Comment on above: Performed By: #### Coleen HILLMAN BMP ####[facility] [address] [place] [id number]. Marcell Coates Chloride [Moles/Vol] 103 mmol/L Normal 98-107 [facility] Comment on above: Performed By: #### Coleen HILLMAN, BMP ####[facility] [address] [place] [id number]. Marcell Coates CO2 [Moles/Vol] 25.4 mmol/L Normal 21.0-32.0 [facility] Comment on above: Performed By: #### Coleen HILLMAN, BMP ####[facility] [address] [place] [id number]. Marcell Coates Creatinine [Mass/Vol] 0.97 mg/dL Normal 0.55-1.02 [facility] Comment on above: Performed By: #### Coleen HILLMAN, BMP ####[facility] [address] [place] [id number]. Marcell Coates EGFR-AF JAMAICAN >60 Normal >=60 [facility] Comment on above: Performed By: #### Coleen HILLMAN, BMP ####[facility] [address]xfbi[address] [place] [id number]. Marcell Coates EGFR-NON AF JAMAICAN >60 Normal >=60 [facility] Comment on above: Performed By: #### Coleen HILLMAN, BMP ####[facility] [address] [place] [id number]. Marcell Coates Glucose [Mass/Vol] 146 mg/dL Critically high 74-106 [facility] Comment on above: Performed By: #### Coleen HILLMAN, BMP ####[facility] [address] [place] [id number]. Marcell Coates Potassium [Moles/Vol] 3.8 mmol/L Normal 3.5-5.1 [facility] Comment on above: Performed By: #### Coleen HILLMAN, BMP ####[facility] [address]kt[address] [place] [id number]. Marcell Coates Sodium [Moles/Vol] 138 mmol/L Normal 136-145 [facility] Comment on above: Performed By: #### Coleen HILLMAN, BMP ####[facility] Jr[address]fvseok[address] [place] [id number]. Marcell Coates Urea nitrogen [Mass/Vol] 19.0 mg/dL Critically high 7.0-18.0 [facility] Comment on above: Performed By: #### Coleen HILLMAN, BMP ####[facility] [address] [place] [id number]. Marcell Coates Urea nitrogen/Creatinine [Mass ratio] 19.6 mg/mg Normal [facility] Comment on above: Performed By: #### C RAFY, BMP ####[facility] [address] [place] [phone]. Marcell Coates XR CHEST 1 Von 01-22-2022 XR CHEST 1 V EXAM: XR CHEST 1 V HISTORY: CHEST PAIN, UNSPECIFIED COMPARISON: Chest radiograph dated 12/22/2021. TECHNIQUE: One view of the chest was obtained. FINDINGS: The cardiac silhouette is stable in size. The lungs are clear. There is no significant pneumothorax or pleural effusion. No acute osseous abnormality is seen. IMPRESSION: 1. No acute cardiopulmonary abnormality. Electronically authenticated by: Minal HARRIS Date: 2022-01-22 01:40 Normal [facility] XR SHOULDER LT 2V or >on XR SHOULDER LT 2V or > EXAM: XR SHOULDER LT 2V or > HISTORY: Paresthesia COMPARISON: None. TECHNIQUE: 3 views of the left shoulder were obtained. FINDINGS: No acute fracture or dislocation is seen. The left humeral head is well-seated on the glenoid. The acromioclavicular and coracoclavicular distances are preserved. There are suspected hypoventilatory changes in the lungs. IMPRESSION: 1. No acute fracture or dislocation of the left shoulder is seen. If there is concern for internal derangement, a nonemergent outpatient MRI is recommended. Electronically authenticated by: Minal HARRIS Date: 2022-01-22 04:36 Normal [facility] CBC AUTO DIFFon 12-22-2021 BASO # 0.1 103/ul Normal 0.0-0.1 [facility] Comment on above: Performed By: #### C BC ####[facility] [address]dsburm[address] [place] [phone]. Marcell Coates Basophils/100 WBC (Bld) 0.6 % Normal 0.2-2.0 [facility] Comment on above: Performed By: #### C BC ####[facility] [address] [place] [address]Dr. Marcell Coates EO # 0.6 103/ul Normal 0.0-0.7 [facility] Comment on above: Performed By: #### C BC ####[facility] [address] [place] [address]Dr. Marcell Coates Eosinophils/100 WBC (Bld) 4.8 % Normal 0.9-7.0 [facility] Comment on above: Performed By: #### C BC ####[facility] [address] [place] [address]Dr. Marcell Coates Erythrocyte distribution width (RBC) [Ratio] 13.5 % Normal 11.0-15.0 [facility] Comment on above: Performed By: #### C BC ####[facility] [address] [place], [place] [address]Dr. Marcell Coates Hematocrit (Bld) [Volume fraction] 43.7 % Normal 36.0-48.0 [facility] Comment on above: Performed By: #### C BC ####[facility] [address] [place], [place] [address]Dr. Marcell Coates Hemoglobin (Bld) [Mass/Vol] 14.4 g/dL Normal 12.0-16.0 [facility] Comment on above: Performed By: #### C BC ####[facility] W[address] [place], [place] [address]Dr. Marcell Coates IG # 0.04 10e3/ul Critically high 0.00-0.03 [facility] Comment on above: Performed By: #### C BC ####[facility] [address] [place] [address]Dr. Marcell oCates IG % 0.3 % Normal 0.0-0.5 [facility] Comment on above: Performed By: #### C BC ####[facility] [address] [place], [place] [address]Dr. Marcell Coates LYMPH # 3.2 103/ul Normal 1.2-3.8 [facility] Comment on above: Performed By: #### C BC ####[facility] [address] [place], [place] [id number]. Marcell Coates Lymphocytes/100 WBC (Bld) 24.6 % Normal 20.5-60.0 [facility] Comment on above: Performed By: #### C BC ####[facility] [address] [place] [address]Dr. Marcell Coates MANUAL DIFF REQ NO Normal [facility] Comment on above: Performed By: #### C BC ####[facility] [address] [place] [address]Dr. Marcell Coates MCH (RBC) [Entitic mass] 29.9 pg Normal 26.7-34.0 [facility] Comment on above: Performed By: #### C BC ####[facility] [address]st[address] [place], [place] [address]Dr. Marcell Coates MCHC (RBC) [Mass/Vol] 33.0 g/dL Normal 29.9-35.2 [facility] Comment on above: Performed By: #### C BC ####[facility] [address] [place], [place] [address]Dr. Marcell Coates MCV (RBC) [Entitic vol] 90.9 fL Normal 81.0-99.0 [facility] Comment on above: Performed By: #### C BC ####[facility] [address]ej[address]ts[address] [place], [place] [address]Dr. Marcell Coates MONO # 1.2 103/ul Critically high 0.3-0.[address] [facility] Comment on above: Performed By: #### C BC ####[facility] [address] [place], [place] [address]Dr. Marcell Coates Monocytes/100 WBC (Bld) 9.1 % Normal 1.7-12.0 [facility] Comment on above: Performed By: #### C BC ####[facility] [address]em[address] [place], [place] [address]Dr. Marcell Coates NEUT # 7.9 103/ul Critically high 1.4-6.[address] [facility] Comment on above: Performed By: #### C BC ####[facility] [address] [place] [address] Marcell Coates Neutrophils/100 WBC (Bld) 60.6 % Normal 43.0-75.0 [facility] Comment on above: Performed By: #### C BC ####[facility] [address] [place] [id number]. Marcell Coates Platelet mean volume (Bld) [Entitic vol] 10.2 fL Normal 9.5-13.5 [facility] Comment on above: Performed By: #### C BC ####[facility] [address] [place] [id number]. Marcell Coates PLT 284 103/ul Normal 150-450 [facility] Comment on above: Performed By: #### C BC ####[facility] [address]nsy[address] [place] [id number]. Marcell Coates RBC 4.81 106/ul Normal 4.20-5.40 [facility] Comment on above: Performed By: #### C BC ####[facility] [address] [place] [id number]. Marcell Coates WBC 13.0 103/ul Critically high 4.0-11.0 [facility] Comment on above: Performed By: #### C BC ####[facility] [address] [place] [id number]. Marcell Coates CTA CHEST WO W CONon 022 CTA CHEST WO W CON EXAMINATION: CTA CHAMP ST WO W CON, 12/22/2021 1:54 AM EDT HISTORY: SHORTNESS OF BREATH COMPARISON: Chest x-ray earlier today TECHNIQUE: CT angiography of the chest was performed with IV contrast. MIP (maximum intensity projection) images or 3D post processing was performed. CT dose reduction technique was used, including Automated Exposure Control. FINDINGS: PULMONARY ARTERIES: There is excellent opacification of the pulmonary vasculature. No abnormal vascular cut-offs or filing defects to suggest presence of pulmonary emboli. Pulmonary trunk measures 2.8 CM. AORTA: Thoracic aorta is normal in course and caliber. Minimal atherosclerotic calcifications. Good enhancement of the aorta without evidence of dissection flap seen. MEDIASTINUM: Thyroid is grossly unremarkable. Trachea and central airways are patent. Heart appears mildly enlarged without pericardial effusion. Minimal coronary arterial calcification. A few mildly prominent mediastinal nodes, may be reactive. Mild peribronchial thickening suggested in the hilar regions without definite hilar adenopathy. PLEURAL CAVITY: No pneumothorax. No pleural effusion. LUNGS: No lobar consolidation is seen. There are a few small areas of groundglass infiltrate noted in the right upper more than left upper and left lower lobes. CHEST WALL/AXILLA: No axillary lymphadenopathy VISUALIZED UPPER ABDOMEN: No acute findings. BONES: No destructive lesions. Mild degenerative changes. IMPRESSION: 1. No evidence of pulmonary embolus or aortic dissection. 2. Heart is mildly enlarged. Minimal coronary arterial and aortic calcification. 3. A few small groundglass infiltrates in the bilateral lungs, likely infectious or inflammatory small airways process. Include atypical infections in the differential. 4. Mild perihilar peribronchial soft tissue thickening, can be seen with bronchitis. Electronically authenticated by: LIOR JIANG Date: 2021-12-22 03:52 Normal [facility] Covid-19 PCR (CVDTBH)on SARS-CoV-2 (COVID-19) RNA RUSSELL+probe Ql (Unsp spec) Not detected Normal NOT DETECTED [facility] Comment on above: Result Comment: When diagnostic testing is negative, the possibility of a false negative should be considered in the context of a patient's recent exposures and the presence of clinical signs and symptoms consistent with SARS-CoV-2. This test is not yet approved or cleared by the [place] FDA. When there are no FDA-approved or cleared tests available, and other criteria are met, FDA can make tests available under an emergency access mechanism called an Emergency Use Authorization (EUA). The EUA for this test is supported by the [place] of Health and Human Service's declaration that circumstances exist to justify the emergency use of in vitro diagnostics for the detection and/or diagnosis of the virus that causes COVID-19. This EUA will remain in effect for the duration of the COVID-19 declaration justifying emergency of IVDs, unless it is terminated or revoked by the FDA (after which the test may no longer be used). Performed By: #### L LENO STERN, CMP #### [facility] [address] [place] [address] Dr. Marcell Coates INFLUENZA A AND B AGon 12-22 INFLUENZA A AG Negative Normal NEGATIVE SEE COMMENT [facility] Comment on above: Performed By: #### I NFLUAB ####[facility] [address]fwvulyaoe[address] [place], [place] [address]Dr. Marcell Coates INFLUENZA B AG Negative Normal NEGATIVE SEE COMMENT [facility] Comment on above: Performed By: #### I NFLUAB ####[facility] [address] [place], [place] [address]Dr. Marcell Coates INFLUPOSH SEE BELOW Normal [facility] Comment on above: Result Comment: NOTE : Live attenuated influenzae vaccine viruses can cause a positive result for a rapid influenza diagnostic test if administered up to 7 days prior to rapid testing. Performed By: #### I NFLUAB ####[facility] [address] [place], [place] [address]Dr. Marcell Coates INFLUPOSHB SEE BELOW Normal [facility] Comment on above: Result Comment: NOTE : Live attenuated influenzae vaccine viruses can cause a positive result for a rapid influenza diagnostic test if administered up to 7 days prior to rapid testing. Performed By: #### I NFLUAB ####[facility] [address] [place], [place] [address]Dr. Marcell Coates INTERNAL CONTROLS Within Normal Limits Normal Wi thin Normal Limits [facility] Comment on above: Performed By: #### I NFLUAB ####[facility] [address] [place], [place] [address]DrSherrie Coates PROF CHEM 8 (BAS METB)on Anion gap [Moles/Vol] 14.3 mmol/L Normal [facility] Comment on above: Performed By: #### B MP #### [facility] [address] [place] [address] Dr. Marcell Coates Calcium [Mass/Vol] 9.0 mg/dL Normal 8.5-10.1 [facility] Comment on above: Performed By: #### B MP #### [facility] [address] [address] [address] Marcell Coates Chloride [Moles/Vol] 105 mmol/L Normal 98-107 [facility] Comment on above: Performed By: #### B MP #### [facility] [address] [address] [address] Marcell Coates CO2 [Moles/Vol] 24.6 mmol/L Normal 21.0-32.0 [facility] Comment on above: Performed By: #### B MP #### [facility] [address] [address] [address] Marcell Coates Creatinine [Mass/Vol] 1.19 mg/dL Critically high 0.55-1.02 [facility] Comment on above: Performed By: #### B MP #### [facility] [address] [address] [address] Marcell Coates EGFR-AF JAMAICAN 59 mL/min/1.73m2 Critically low >=60 [facility] Comment on above: Performed By: #### B MP #### [facility] [address] [address] [address] Marcell Coates EGFR-NON AF J[place]ICAN 48 mL/min/1.73m2 Critically low >=60 [facility] Comment on above: Performed By: #### B MP #### [facility] [address] [address] [address] Marcell Coates Glucose [Mass/Vol] 124 mg/dL Critically high 74-106 [facility] Comment on above: Performed By: #### B MP #### [facility] [address] [address] [address] Marcell Coates Potassium [Moles/Vol] 3.9 mmol/L Normal 3.5-5.1 [facility] Comment on above: Performed By: #### B MP #### [facility] [address] [address] [address] Marcell Coates Sodium [Moles/Vol] 140 mmol/L Normal 136-145 [facility] Comment on above: Performed By: #### B MP #### [facility] [address] [address] [address] Marcell Coates Urea nitrogen [Mass/Vol] 18.0 mg/dL Normal 7.0-18.0 [facility] Comment on above: Performed By: #### B MP #### [facility] [address] [address] [address] Marcell Coates Urea nitrogen/Creatinine [Mass ratio] 15.1 mg/mg Normal [facility] Comment on above: Performed By: #### B MP #### [facility] [address] [address] [address] Marcell Coates XR CHEST 1 Von 12-22-2021 XR CHEST 1 V EXAM: XR CHEST 1 V HISTORY: COUGH COMPARISON: None. TECHNIQUE: Chest single view. FINDINGS: Lines/tubes/devices: None. Cardiomediastinum: Heart size is mildly enlarged. Unremarkable mediastinal silhouette. Vasculature: Mild central vascular congestion. Mildly increased interstitial markings can be related to congestion or infiltrates. Lungs/pleura: No consolidation, sizeable effusion, or visible pneumothorax. Bones/soft tissues: Bony thorax appears grossly intact as seen. IMPRESSION: Mild cardiomegaly. Mild central vascular congestion. Mildly increased interstitial markings can be related to congestion or infiltrates. Electronically authenticated by: LIOR JIANG Date: 2021-12-22 01:41 Normal [facility] CBC AUTO DIFFon 11-07-2021 BASO # 0.1 103/ul Normal 0.0-0.1 [facility] Comment on above: Performed By: #### C BC ####[facility] [address] [place] [address]DrSherrie Coates Basophils/100 WBC (Bld) 1.0 % Normal 0.2-2.0 [facility] Comment on above: Performed By: #### C BC ####[facility] [address] [place] [address]DrSherrie Coates EO # 0.4 103/ul Normal 0.0-0.7 [facility] Comment on above: Performed By: #### C BC ####[facility] [address] [place] [id number] Coates Eosinophils/100 WBC (Bld) 3.7 % Normal 0.9-7.0 [facility] Comment on above: Performed By: #### C BC ####[facility] Wwywxetsvf[address] [place] [address]DrSherrie Coates Erythrocyte distribution width (RBC) [Ratio] 13.8 % Normal 11.0-15.0 [facility] Comment on above: Performed By: #### C BC ####[facility] Owcmhafipl026[address] [place] [address]Dr. Marcell Coates Hematocrit (Bld) [Volume fraction] 45.2 % Normal 36.0-48.0 [facility] Comment on above: Performed By: #### C BC ####[facility] Weygkrpgga4035 [place] [address]Dr. Marcell Coates Hemoglobin (Bld) [Mass/Vol] 15.2 g/dL Normal 12.0-16.0 [facility] Comment on above: Performed By: #### C BC ####[facility] Wotivfqnmw[address] [place], [place] [address]Dr. Marcell Coates IG # 0.03 10e3/ul Normal 0.00-0.03 [facility] Comment on above: Performed By: #### C BC ####[facility] Awslorwmig[address] [place], [place] [address]Dr. Marcell Coates IG % 0.3 % Normal 0.0-0.5 [facility] Comment on above: Performed By: #### C BC ####[facility] Zfeyjrogys[address] [place], [place] [address]DrSherrie Marcell Coates LYMPH # 4.0 103/ul Critically high 1.2-3.[address] [facility] Comment on above: Performed By: #### C BC ####[facility] Flsezgngqg[address] [place], [place] [address]DrSherrie Marcell Coates Lymphocytes/100 WBC (Bld) 34.8 % Normal 20.5-60.0 [facility] Comment on above: Performed By: #### C BC ####[facility] Nmouxvrtjg[address] [place], [place] [address]DrSherrie Marcell Jaxon MANUAL DIFF REQ NO Normal [facility] Comment on above: Performed By: #### C BC ####[facility] Xqrgjrdakh7[address] [place], [place] [address]DrSherrie Ansilvio Coaets MCH (RBC) [Entitic mass] 30.3 pg Normal 26.7-34.0 [facility] Comment on above: Performed By: #### C BC ####[facility] Wnvugdreiz3965 [place] [address]Dr. Marcell Jaxon MCHC (RBC) [Mass/Vol] 33.6 g/dL Normal 29.9-35.2 [facility] Comment on above: Performed By: #### C BC ####[facility] Epsvtpcryl[address] [place], [place] [address]Dr. Marcell Coates MCV (RBC) [Entitic vol] 90.2 fL Normal 81.0-99.0 [facility] Comment on above: Performed By: #### C BC ####[facility] Ykyegdkpvr124[address] [place], [place] [address]Dr. Marcell Coates MONO # 1.0 103/ul Critically high 0.3-0.[address] [facility] Comment on above: Performed By: #### C BC ####[facility] Azcbvzhykb[address] [place], [place] [address]Dr. Marcell Coates Monocytes/100 WBC (Bld) 8.7 % Normal 1.7-12.0 [facility] Comment on above: Performed By: #### C BC ####[facility] Hibkgljkai[address] [place], [place] [address]Dr. Marcell Coates NEUT # 5.9 103/ul Normal 1.4-6.5 [facility] Comment on above: Performed By: #### C BC ####[facility] Kbhcqhleya[address] [place], [place] [address]Dr. Marcell Coates Neutrophils/100 WBC (Bld) 51.5 % Normal 43.0-75.0 [facility] Comment on above: Performed By: #### C BC ####[facility] Gyckbftoxe7[address] [place], [place] [address]Dr. Marcell Coates Platelet mean volume (Bld) [Entitic vol] 9.7 fL Normal 9.5-13.5 [facility] Comment on above: Performed By: #### C BC ####[facility] Vxitmuriwf[address] [place], [place] [id number]. Marcell Coates PLT 326 103/ul Normal 150-450 [facility] Comment on above: Performed By: #### C BC ####[facility] Kohuxzilth0271 Telephone, [place] [address]Fw. Marcell Coates RBC 5.01 106/ul Normal 4.20-5.40 [facility] Comment on above: Performed By: #### C BC ####[facility] Tsiodulwoa4736 Telephone, [place] [address]Xv. Marcell Coates WBC 11.4 103/ul Critically high 4.0-11.0 [facility] Comment on above: Performed By: #### C BC ####[facility] Krdgkfkkqa96[address] [place] [id number]. Marcell Coates CT HEAD WO CONon 11-07-2021 CT HEAD WO CON NONCONTRAST CT SCAN OF THE HEAD CT HEAD WO CON HISTORY: HEADACHE TECHNIQUE: Multiple axial images are taken from the level the vertex down to the base of the skull without the use of IV contrast. Images were then reconstructed in the sagittal and coronal planes. This exam was performed according to our departmental dose-optimization program which includes use of Automated Exposure Control, adjustment of the mA and/or kV according to patient size and/or use of iterative reconstruction technique. COMPARISON: None. FINDINGS: Brain Parenchyma: No intracranial mass. No intracranial hemorrhage. Rivera-white matter within expected limits of normal for patient's age. Posterior fossa: Normal. Midline shift: None Extra-axial fluid collection: None Ventricles: Normal. Mastoid air cells: Normal. Sinuses: Normal. Cranium: No depressed skull fracture. Soft tissues: Normal. Orbits: Normal. IMPRESSION: 1. No noncontrast CT evidence for acute intracranial pathology. 2. If symptoms continue and if clinically indicated, MRI may help better delineate. Electronically authenticated by: CELINE KO Date: 2021-11-06 23:14 Normal [facility] PROF 14(COMP METB)on 022 Albumin [Mass/Vol] 4.1 g/dL Normal 3.4-5.0 [facility] Comment on above: Performed By: #### C MP ####[facility] Tbdybcjffs[address] [place], [place] [address]Dr. Marcell Jaxon Albumin/Globulin [Mass ratio] 1.1 {ratio} Normal [facility] Comment on above: Performed By: #### C MP ####[facility] Ubvkkqwxod3856 [place] [address]Dr. Marcell Jaxon ALP [Catalytic activity/Vol] 85 U/L Normal 46-116 [facility] Comment on above: Performed By: #### C MP ####[facility] Kcwlfghrek[address] [place], [place] [address]Dr. Marcell Jaxon ALT [Catalytic activity/Vol] 21 U/L Normal 14-59 [facility] Comment on above: Performed By: #### C MP ####[facility] Umlmhiesid76[address] [place], [place] [address]Dr. Ansilvio Jaxon Anion gap [Moles/Vol] 14.7 mmol/L Normal [facility] Comment on above: Performed By: #### C MP ####[facility] Xrmsqcnulw998[address] [place], [place] [address]Dr. Marcell Jaxon AST [Catalytic activity/Vol] 18 U/L Normal 15-37 [facility] Comment on above: Performed By: #### C MP ####[facility] Yaxwhzhhau99[address] [place], [place] [address]Dr. Ansilvio Jaxon Bilirubin [Mass/Vol] 0.3 mg/dL Normal 0.2-1.0 [facility] Comment on above: Performed By: #### C MP ####[facility] Xwwmjdlhtb[address] [place], [place] [address]Dr. Marcell Jaxon Calcium [Mass/Vol] 9.3 mg/dL Normal 8.5-10.1 [facility] Comment on above: Performed By: #### C MP ####[facility] Pkthlxeuir62[address] [place], [place] [address]Dr. Marcell Coates Chloride [Moles/Vol] 101 mmol/L Normal 98-107 [facility] Comment on above: Performed By: #### C MP ####[facility] Mzgnvzkszh[address] [place], [place] [address]Dr. Marcell Coates CO2 [Moles/Vol] 22.6 mmol/L Normal 21.0-32.0 [facility] Comment on above: Performed By: #### C MP ####[facility] Jdnkckfomz4853 [place] [address]Dr. Marcell Coates Creatinine [Mass/Vol] 1.25 mg/dL Critically high 0.55-1.02 [facility] Comment on above: Performed By: #### C MP ####[facility] Pglzboockr9852 [place] [address]Dr. Marcell Coates EGFR-AF JAMAICAN 55 mL/min/1.73m2 Critically low >=60 [facility] Comment on above: Performed By: #### C MP ####[facility] Mufqkvmmqd[address] [place], [place] [address]Dr. Marcell Coates EGFR-NON AF JAMAICAN 46 mL/min/1.73m2 Critically low >=60 [facility] Comment on above: Performed By: #### C MP ####[facility] Qvuxrkunan[address] [place], [place] [address]Dr. Marcell Coates Globulin (S) [Mass/Vol] 3.6 g/dL Normal [facility] Comment on above: Performed By: #### C MP ####[facility] Wkjplnpbmg[address] [place], [place] [address]Dr. Marcell Coates Glucose [Mass/Vol] 107 mg/dL Critically high 74-106 [facility] Comment on above: Performed By: #### C MP ####[facility] Tglyywktwq95[address] [place], [place] [address]Dr. Marcell Coates Potassium [Moles/Vol] 3.3 mmol/L Critically low 3.5-5.1 [facility] Comment on above: Performed By: #### C MP ####[facility] Ykiyyjnhkp[address] [place], [place] [address]Dr. Marcell Coates Protein [Mass/Vol] 7.7 g/dL Normal 6.4-8.2 [facility] Comment on above: Performed By: #### C MP ####[facility] Otkutucvlc[address] [place], [place] [address]DrSherrie Coates Sodium [Moles/Vol] 135 mmol/L Critically low 136-145 Th e [facility] Comment on above: Performed By: #### C MP ####[facility] Zeztiykgwt[address]88 [place] [address]Dr. Marcell Coates Urea nitrogen [Mass/Vol] 20.0 mg/dL Critically high 7.0-18.0 [facility] Comment on above: Performed By: #### C MP ####[facility] Srfaxvpeom0805 [place] [address]DrSherrie Coates Urea nitrogen/Creatinine [Mass ratio] 16.0 mg/mg Normal [facility] Comment on above: Performed By: #### C MP ####[facility] Ykksnjmocw9329 [place] [address]Dr. Marcell Coates CBC AUTO DIFFon 09-14-2021 BASO # 0.0 103/ul Normal 0.0-0.1 [facility] Comment on above: Performed By: #### L LENO STERN CMP #### [facility] [address] [place] [address] Dr. Marcell Coates Basophils/100 WBC (Bld) 0.1 % Critically low 0.2-2.0 [facility] Comment on above: Performed By: #### L LENO STERN, CMP #### [facility] [address] [place] [address] [address] Marcell Coates EO # 0.0 103/ul Normal 0.0-0.7 [facility] Comment on above: Performed By: #### L LENO STERN, CMP #### [facility] [address] [place] [address] Dr. Marcell Coates Eosinophils/100 WBC (Bld) 0.0 % Critically low 0.9-7.0 [facility] Comment on above: Performed By: #### L LENO STERN CMP #### [facility] [address] [place] [address] [address] Marcell Coates Erythrocyte distribution width (RBC) [Ratio] 12.8 % Normal 11.0-15.0 [facility] Comment on above: Performed By: #### L LENO STERN, CMP #### [facility] [address] [address] [address] Marcell Coates Hematocrit (Bld) [Volume fraction] 40.8 % Normal 36.0-48.0 [facility] Comment on above: Performed By: #### L IPA, LENO, CMP #### [facility] [address] [address] [address] Marcell Coates Hemoglobin (Bld) [Mass/Vol] 13.2 g/dL Normal 12.0-16.0 [facility] Comment on above: Performed By: #### L IPA, LENO, CMP #### [facility] [address] [place] [address] Dr. Marcell Coates IG # 0.07 10e3/ul Critically high 0.00-0.03 [facility] Comment on above: Performed By: #### L LEENA LENO, CMP #### [facility] [address] [place] [address] Dr. Marcell Coates IG % 0.6 % Critically high 0.0-0.[address] [facility] Comment on above: Performed By: #### L LENO STERN, CMP #### [facility] [address] [place] [address] Dr. Marcell Coates LYMPH # 1.6 103/ul Normal 1.2-3.8 [facility] Comment on above: Performed By: #### L LENO STERN, CMP #### [facility] [address] [place] [address] Dr. Marcell Coates Lymphocytes/100 WBC (Bld) 14.3 % Critically low 20.5-60.0 [facility] Comment on above: Performed By: #### L LEENA LENO, CMP #### [facility] [address] [address] [address] Marcell Coates MANUAL DIFF REQ NO Normal [facility] Comment on above: Performed By: #### L IPA, LENO, CMP #### [facility] [address] [place] [address] Dr. Marcell Coates MCH (RBC) [Entitic mass] 29.8 pg Normal 26.7-34.0 [facility] Comment on above: Performed By: #### L LENO STERN, CMP #### [facility] [address] [place] [address] Dr. Marcell Coates MCHC (RBC) [Mass/Vol] 32.4 g/dL Normal 29.9-35.2 [facility] Comment on above: Performed By: #### L LENO STERN, CMP #### [facility] [address] [place] [address] Dr. Marcell Coates MCV (RBC) [Entitic vol] 92.1 fL Normal 81.0-99.0 [facility] Comment on above: Performed By: #### L LENO STERN, CMP #### [facility] [address] [place] [address] Dr. Marcell Coates MONO # 0.3 103/ul Normal 0.3-0.8 [facility] Comment on above: Performed By: #### L LENO STERN, CMP #### [facility] [address] [place] [address] Dr. Marcell Coates Monocytes/100 WBC (Bld) 2.4 % Normal 1.7-12.0 [facility] Comment on above: Performed By: #### L LENO STERN, CMP #### [facility] [address] [place] [address] Dr. Marcell Coates NEUT # 9.3 103/ul Critically high 1.4-6.[address] [facility] Comment on above: Performed By: #### L LENO STERN, CMP #### [facility] [address] [place] [address] Dr. Marcell Coates Neutrophils/100 WBC (Bld) 82.6 % Critically high 43.0-75.0 [facility] Comment on above: Performed By: #### L LENO STERN, CMP #### [facility] [address] [place] [address] Dr. Marcell Coates Platelet mean volume (Bld) [Entitic vol] 9.8 fL Normal 9.5-13.5 [facility] Comment on above: Performed By: #### L LENO STERN, CMP #### [facility] [address] [address] [address] Marcell Coates PLT 292 103/ul Normal 150-450 [facility] Comment on above: Performed By: #### L LENO STERN, CMP #### [facility] [address] [address] [address] Marcell Coates RBC 4.43 106/ul Normal 4.20-5.40 [facility] Comment on above: Performed By: #### L LENO STERN, CMP #### [facility] [address] [place] [address] Dr. Marcell Coates WBC 11.3 103/ul Critically high 4.0-11.0 [facility] Comment on above: Performed By: #### L LENO STERN, CMP #### [facility] [address] [place] [address] Dr. Marcell Coates PROF CHEM 8 (BAS METB)on Anion gap [Moles/Vol] 13.8 mmol/L Normal [facility] Comment on above: Performed By: #### B MP #### [facility] [address] [place] [address] Dr. Marcell Coates Calcium [Mass/Vol] 8.9 mg/dL Normal 8.5-10.1 [facility] Comment on above: Performed By: #### B MP #### [facility] [address] [place] [address] Dr. Marcell Coates Chloride [Moles/Vol] 102 mmol/L Normal 98-107 [facility] Comment on above: Performed By: #### B MP #### [facility] [address] [place] [address] Dr. Marcell Coates CO2 [Moles/Vol] 24.3 mmol/L Normal 21.0-32.0 [facility] Comment on above: Performed By: #### B MP #### [facility] [address] [place] [address] Dr. Marcell Coates Creatinine [Mass/Vol] 1.15 mg/dL Critically high 0.55-1.02 [facility] Comment on above: Performed By: #### B MP #### [facility] [address] [address] [address] Marcell Coates EGFR-AF JAMAICAN >60 Normal >=60 [facility] Comment on above: Performed By: #### B MP #### [facility] [address] [address] [address] Marcell Coates EGFR-NON AF JAMAICAN 50 mL/min/1.73m2 Critically low >=60 [facility] Comment on above: Performed By: #### B MP #### [facility] [address] [address] [address] Marcell Coates Glucose [Mass/Vol] 317 mg/dL Critically high 74-106 T [facility] Comment on above: Performed By: #### B MP #### [facility] [address] [address] [address] Marcell Coates Potassium [Moles/Vol] 4.1 mmol/L Normal 3.5-5.1 [facility] Comment on above: Performed By: #### B MP #### [facility] [address] [address] [address] Marcell Coates Sodium [Moles/Vol] 136 mmol/L Normal 136-145 [facility] Comment on above: Performed By: #### B MP #### [facility] [address] [address] [address] Marcell Coates Urea nitrogen [Mass/Vol] 25.0 mg/dL Critically high 7.0-18.0 [facility] Comment on above: Performed By: #### B MP #### [facility] [address] [address] [address] Marcell Coates Urea nitrogen/Creatinine [Mass ratio] 21.7 mg/mg Normal [facility] Comment on above: Performed By: #### B MP #### [facility] [address] [address] [address] Marcell Coates CBC AUTO DIFFon 09-13-2021 BASO # 0.1 103/ul Normal 0.0-0.1 [facility] Comment on above: Performed By: #### C BC ####[facility] [address] [place] [address]Dr. Marcell Coates Basophils/100 WBC (Bld) 0.8 % Normal 0.2-2.0 [facility] Comment on above: Performed By: #### C BC ####[facility] [address]rvsiayt[address] [place] [address]Dr. Marcell Coates EO # 0.4 103/ul Normal 0.0-0.7 [facility] Comment on above: Performed By: #### C BC ####[facility] Qeirjytwse[address] [place], [place] [address]Dr. Marcell Coates Eosinophils/100 WBC (Bld) 4.1 % Normal 0.9-7.0 [facility] Comment on above: Performed By: #### C BC ####[facility] Vhtiznrtou[address] [place], [place] [address]Dr. Marcell Coates Erythrocyte distribution width (RBC) [Ratio] 13.3 % Normal 11.0-15.0 [facility] Comment on above: Performed By: #### C BC ####[facility] Vstzyjxsdf[address] [place], [place] [address]Dr. Marcell Coates Hematocrit (Bld) [Volume fraction] 41.5 % Normal 36.0-48.0 [facility] Comment on above: Performed By: #### C BC ####[facility] [address] [place], [place] [address]Dr. Marcell Coates Hemoglobin (Bld) [Mass/Vol] 13.6 g/dL Normal 12.0-16.0 [facility] Comment on above: Performed By: #### C BC ####[facility] Ovejvtnyab[address] [place], [place] [address]Dr. Marcell Coates IG # 0.02 10e3/ul Normal 0.00-0.03 [facility] Comment on above: Performed By: #### C BC ####[facility] Bqrofpfgqh[address] [place], [place] [address]Dr. Marcell Coates IG % 0.2 % Normal 0.0-0.5 [facility] Comment on above: Performed By: #### C BC ####[facility] [address]xf[address]rgub[address] [place] [id number]. Marcell Jaxon LYMPH # 3.9 103/ul Critically high 1.2-3.[address] [facility] Comment on above: Performed By: #### C BC ####[facility] R[address]cywzd[address] [place] [id number]. Marcell Jaxon Lymphocytes/100 WBC (Bld) 37.9 % Normal 20.5-60.0 [facility] Comment on above: Performed By: #### C BC ####[facility] Ifkrsuchum[address] [place] [id number]. Ansilvio Coates MANUAL DIFF REQ NO Normal [facility] Comment on above: Performed By: #### C BC ####[facility] Tsppoomyhy[address] [place] [address]Dr. Marcell Jaxon MCH (RBC) [Entitic mass] 30.2 pg Normal 26.7-34.0 [facility] Comment on above: Performed By: #### C BC ####[facility] [address]eyiinii[address] [place] [address]Dr. Marcell Jaxon MCHC (RBC) [Mass/Vol] 32.8 g/dL Normal 29.9-35.2 [facility] Comment on above: Performed By: #### C BC ####[facility] Xxijghggpy[address] [place] [id number]. Ansilvio Coates MCV (RBC) [Entitic vol] 92.2 fL Normal 81.0-99.0 [facility] Comment on above: Performed By: #### C BC ####[facility] [address]jyqzeds[address] [place] [id number]. Ansilvio Coates MONO # 0.8 103/ul Normal 0.3-0.8 [facility] Comment on above: Performed By: #### C BC ####[facility] Pypbbsqzox[address] [place] [address]Dr. Ansilvio Coates Monocytes/100 WBC (Bld) 8.1 % Normal 1.7-12.0 [facility] Comment on above: Performed By: #### C BC ####[facility] Xkvzljymke8176 [place] [id number]. Marcell Coates NEUT # 5.0 103/ul Normal 1.4-6.5 [facility] Comment on above: Performed By: #### C BC ####[facility] Lfxpcqsmgu37[address] [place] [id number]. Marcell Coates Neutrophils/100 WBC (Bld) 48.9 % Normal 43.0-75.0 [facility] Comment on above: Performed By: #### C BC ####[facility] Zvkgpkkgpu6[address] [place] [id number]. Marcell Jaxon Platelet mean volume (Bld) [Entitic vol] 9.5 fL Normal 9.5-13.5 [facility] Comment on above: Performed By: #### C BC ####[facility] [address]bx[address]xczfj[address] [place] [id number]. Ansilvio Jaxon PLT 288 103/ul Normal 150-450 [facility] Comment on above: Performed By: #### C BC ####[facility] Huoqecuzdi[address] [place] [id number]. Marcell Jaxon RBC 4.50 106/ul Normal 4.20-5.40 [facility] Comment on above: Performed By: #### C BC ####[facility] Evvxbaokdg6595 [place] [id number]. Marcell Coates WBC 10.2 103/ul Normal 4.0-11.0 [facility] Comment on above: Performed By: #### C BC ####[facility] [address]ckvxabb[address] [place] [id number] Marcell Jaxon CRPon 09-13-2021 CRP 1.0 mg/dL Normal <=1.0 [facility] Comment on above: Performed By: #### L LENO STERN, CMP #### [facility] [id number] Marcell Coates Covid-19 PCR (CVDTB)on 08-17 SARS-CoV-2 (COVID-19) RNA RUSSELL+probe Ql (Unsp spec) Not detected Normal NOT DETECTED [facility] Comment on above: Result Comment: When diagnostic testing is negative, the possibility of a false negative should be considered in the context of a patient's recent exposures and the presence of clinical signs and symptoms consistent with SARS-CoV-2. This test is not yet approved or cleared by the [place] FDA. When there are no FDA-approved or cleared tests available, and other criteria are met, FDA can make tests available under an emergency access mechanism called an Emergency Use Authorization (EUA). The EUA for this test is supported by the Humid System Operator of Health and Human Service's declaration that circumstances exist to justify the emergency use of in vitro diagnostics for the detection and/or diagnosis of the virus that causes COVID-19. This EUA will remain in effect for the duration of the COVID-19 declaration justifying emergency of IVDs, unless it is terminated or revoked by the FDA (after which the test may no longer be used). Performed By: #### L LENO STERN CMP #### [facility] [address] [place] [address] Dr. Marcell Coates GLYCOHEMOGLOBIN A1Con 2021 ADA RECOMMENDATION SEE BELOW Normal [facility] Comment on above: Result Comment: ADA RECOMMENDED LIMIT 4.0 - 6.0 ADA THERAPEUTIC TARGET < 7.0 ACTION SUGGESTED > 7.0 Performed By: #### B MP #### [facility] [address] [place] [address] Dr. Marcell Coates Glucose [Mass/Vol] 128 mg/dL Normal [facility] Comment on above: Performed By: #### B MP #### [facility] [address] [place] [address] Dr. Marcell Coates HbA1c (Bld) [Mass fraction] 6.1 % Normal 4.5-6.2 [facility] Comment on above: Performed By: #### B MP #### [facility] [address] [place] [address] Dr. Marcell Coates PROF CHEM 8 (BAS METB)on Anion gap [Moles/Vol] 13.5 mmol/L Normal [facility] Comment on above: Performed By: #### L LENO STERN, CMP #### [facility] [address] [address] [address] Marcell Coates Calcium [Mass/Vol] 8.6 mg/dL Normal 8.5-10.1 [facility] Comment on above: Performed By: #### L LENO STERN, CMP #### [facility] [address] [address] [address] Marcell Coates Chloride [Moles/Vol] 107 mmol/L Normal 98-107 [facility] Comment on above: Performed By: #### L LENO STERN, CMP #### [facility] [address] [place] [address] Dr. Marcell Coates CO2 [Moles/Vol] 25.5 mmol/L Normal 21.0-32.0 [facility] Comment on above: Performed By: #### L LENO STERN, CMP #### [facility] [address] [place] [address] Dr. Marcell Coates Creatinine [Mass/Vol] 1.25 mg/dL Critically high 0.55-1.02 [facility] Comment on above: Performed By: #### L LENO STERN, CMP #### [facility] [address] [address] [address] Marcell Coates EGFR-AF [place] 58 mL/min/1.73m2 Critically low >=60 [facility] Comment on above: Performed By: #### L LNEO STERN, CMP #### [facility] [address] [place] [address] Dr. Marcell Coates EGFR-NON AF [place] 47 mL/min/1.73m2 Critically low >=60 [facility] Comment on above: Performed By: #### L LENO STERN, CMP #### [facility] [address] [address] [address] Marcell Coaets Glucose [Mass/Vol] 154 mg/dL Critically high 74-106 [facility] Comment on above: Performed By: #### L LENO STERN, CMP #### [facility] [address] [place] [address] Dr. Marcell Coates Potassium [Moles/Vol] 4.0 mmol/L Normal 3.5-5.1 [facility] Comment on above: Performed By: #### L LENO STERN, CMP #### [facility] [address] [address] [address] Marcell Coates Sodium [Moles/Vol] 142 mmol/L Normal 136-145 [facility] Comment on above: Performed By: #### L LENO STERN, CMP #### [facility] [address] [address] [address] Marcell Coates Urea nitrogen [Mass/Vol] 18.0 mg/dL Normal 7.0-18.0 [facility] Comment on above: Performed By: #### L LENO STERN, CMP #### [facility] [address] [address] [address] Marcell Coates Urea nitrogen/Creatinine [Mass ratio] 14.4 mg/mg Normal [facility] Comment on above: Performed By: #### L LENO STERN, CMP #### [facility] [address] [address] [address] Marcell Coates SED [facility] ISLANDRENon 2021 SED RATE 16 mm/hr Normal <=20 [facility] Comment on above: Performed By: #### L LENO STERN, CMP #### [facility] [address] [place] [address] Dr. Marcell Coates XR HIP RT 2 3V W PELVISon XR HIP RT 2 3V W PELVIS EXAM: XR HIP RT 2 3V W PELVIS HISTORY: Right hip Pain COMPARISON: None. TECHNIQUE: Frontal view of the pelvis and 2 views of the right hip are obtained. FINDINGS: There is no focal soft tissue abnormality. Osseous mineralization is within normal limits. There is no acute fracture or dislocation. The femoral acetabular joints are normally maintained. Moderate right degenerative changes present with acetabular sclerosis and spurring most significantly superiorly. The sacroiliac joints and pubic symphysis are not abnormally widened. IMPRESSION: 1. No acute fracture or dislocation. 2. Moderate right degenerative change of the hips. Electronically authenticated by: EDDY MELGOZA Date: 2021-09-13 05:33 Normal [facility] XR LSPINE 2_3 VIEWSon 2021 XR LSPINE 2_3 VIEWS EXAMINATION: XR LSPI NE 2_3 VIEWS HISTORY: Pain COMPARISON: No relevant comparison available. FINDINGS: BONES: Levocurvature centered at L2-L3. Mild to moderate degenerative spondylosis most significant at L2-L3. Mild to moderate facet osteoarthropathy most significant at L5-S1. Bilateral hip osteoarthropathy DISC SPACES: Multilevel disc space narrowing most significant L4-L5 PARASPINOUS: Negative. No paraspinous abnormality is seen. OTHER: Negative. IMPRESSION: Mild to moderate degenerative change Electronically authenticated by: LIZANDRO PENDLETON Date: 2021-09-13 07:37 Normal [facility] CBC W/DIFFon 08-09-2020 BASOPHILS ABS AUTO [facility] 0.1 x10E3/uL Normal 0.0-0.2 [facility] Comment on above: Performed By: #### L AB293, LAB17 #### [facility] 1 , BASOPHILS RELATIVE AUTO [facility] 1 % Normal Not Estab. [facility] Comment on above: Performed By: #### L AB293, LAB17 #### [facility] 1 , Eosinophils (Bld) [#/Vol] 0.2 10*3/uL Normal 0.0-0.4 [facility] Comment on above: Performed By: #### L AB293, LAB17 #### [facility] 1 , Eosinophils/100 WBC (Bld) 3 % Normal Not Estab. [facility] Comment on above: Performed By: #### L AB293, LAB17 #### [facility] 1 , Erythrocyte distribution width (RBC) [Ratio] 11.9 % Normal 11.7-15.4 [facility] Comment on above: Performed By: #### L AB293, LAB17 #### [facility] 1 , Hematocrit (Bld) [Volume fraction] 43.8 % Normal 34.0-46.6 [facility] Comment on above: Performed By: #### L AB293, LAB17 #### [facility] , HEMOGLOBIN [facility] 14.9 g/dL Normal 11.1-15.9 [facility] Comment on above: Performed By: #### L AB293, LAB17 #### [facility] 1 , IMMATURE GRANS (ABS) 0.0 x10E3/uL Normal 0.0-0.1 [facility] Comment on above: Performed By: #### L AB293, LAB17 #### [facility] 1 , Immature granulocytes/100 WBC (Bld) 0 % Normal Not Estab. [facility] Comment on above: Performed By: #### L AB293, LAB17 #### [facility] 1 , Lymphocytes (Bld) [#/Vol] 2.4 10*3/uL Normal 0.7-3.1 [facility] Comment on above: Performed By: #### L AB293, LAB17 #### [facility] 1 , Lymphocytes/100 WBC (Bld) 26 % Normal Not Estab. [facility] Comment on above: Performed By: #### L AB293, LAB17 #### [facility] 1 , MCH (RBC) [Entitic mass] 31.2 pg Normal 26.6-33.0 [facility] Comment on above: Performed By: #### L AB293, LAB17 #### [facility] 1 , MCHC (RBC) [Mass/Vol] 34.0 g/dL Normal 31.5-35.7 [facility] Comment on above: Performed By: #### L AB293, LAB17 #### [facility] 1 , MCV [facility] 92 fL Normal 79-97 [facility] Comment on above: Performed By: #### L AB293, LAB17 #### [facility] 1 , Monocytes (Bld) [#/Vol] 0.5 10*3/uL Normal 0.1-0.9 [facility] Comment on above: Performed By: #### L AB293, LAB17 #### [facility] 1 , Monocytes/100 WBC (Bld) 6 % Normal Not Estab. [facility] Comment on above: Performed By: #### L AB293, LAB17 #### [facility] 1 , NEUTROPHIL ABS AUTO [facility] 6.1 x10E3/uL Normal 1.4-7.0 [facility] Comment on above: Performed By: #### L AB293, LAB17 #### [facility] 1 , NEUTROPHILS RELATIVE AUTO [facility] 64 % Normal Not Estab. [facility] Comment on above: Performed By: #### L AB293, LAB17 #### [facility] 1 , PLATELET COUNT [facility] 336 x10E3/uL Normal 150-450 [facility] Comment on above: Performed By: #### L AB293, LAB17 #### [facility] 1 , RED BLOOD CELL COUNT [facility] 4.77 x10E6/uL Normal 3.77-5.28 [facility] Comment on above: Performed By: #### L AB293, LAB17 #### [facility] 1 , WBC (Bld) [#/Vol] 9.4 10*3/uL Normal 3.4-10.8 [facility] Comment on above: Performed By: #### L AB293, LAB17 #### [facility] 1 , COMPREHENSIVE METABOLIC PANE Bulmaro 08-09-2020 Albumin [Mass/Vol] 4.8 g/dL Normal 3.8-4.8 [facility] Comment on above: Order Comment: Relea se to patient->Immediate Performed By: #### L AB293, LAB17 #### [facility] 1 , Albumin/Globulin [Mass ratio] 1.7 {ratio} Normal 1.2-2.2 [facility] Comment on above: Order Comment: Relea se to patient->Immediate Performed By: #### L AB293, LAB17 #### [facility] 1 , ALP [Catalytic activity/Vol] 74 U/L Normal 48-121 [facility] Comment on above: Order Comment: Relea se to patient->Immediate Result Comment: Pl ease note reference interval change Performed By: #### L AB293, LAB17 #### [facility] 1 , ALT [Catalytic activity/Vol] 13 U/L Normal 0-32 [facility] Comment on above: Order Comment: Relea se to patient->Immediate Result Comment: Perf ormed At: 01 [facility] [address] [place], [place] [id number] Aletha Menendez PhD [id number] Performed By: #### L AB293, LAB17 #### [facility] 1 , AST [Catalytic activity/Vol] 17 U/L Normal 0-40 [facility] Comment on above: Order Comment: Relea se to patient->Immediate Performed By: #### L AB293, LAB17 #### [facility] 1 , Bilirubin [Mass/Vol] 0.2 mg/dL Normal 0.0-1.2 [facility] Comment on above: Order Comment: Relea se to patient->Immediate Performed By: #### L AB293, LAB17 #### [facility] 1 , Calcium [Mass/Vol] 9.9 mg/dL Normal 8.7-10.2 [facility] Comment on above: Order Comment: Relea se to patient->Immediate Performed By: #### L AB293, LAB17 #### [facility] 1 , Chloride [Moles/Vol] 102 mmol/L Normal 96-106 [facility] Comment on above: Order Comment: Relea se to patient->Immediate Performed By: #### L AB293, LAB17 #### [facility] 1 , CO2 [Moles/Vol] 22 mmol/L Normal 20-29 [facility] Comment on above: Order Comment: Relea se to patient->Immediate Performed By: #### L AB293, LAB17 #### [facility] 1 , Creatinine [Mass/Vol] 0.85 mg/dL Normal 0.57-1.00 [facility] Comment on above: Order Comment: Relea se to patient->Immediate Performed By: #### L AB293, LAB17 #### [facility] 1 , EGFR IF NONAFRICN AM 82 mL/min/1.73 Normal >59 [facility] Comment on above: Order Comment: Relea se to patient->Immediate Performed By: #### L AB293, LAB17 #### [facility] 1 , GFR/1.73 sq M.predicted among blacks MDRD (S/P/Bld) [Vol rate/Area] 94 mL/min/{1.73_m2} Normal >59 [facility] Comment on above: Order Comment: Relea se to patient->Immediate Result Comment: [facility] currently reports eGFR in compliance with the current recommendations of the National Kidney [employer]. [facility] will update reporting as new guidelines are published from the NKF-ASN Task force. Performed By: #### L AB293, LAB17 #### [facility] 1 , Globulin (S) [Mass/Vol] 2.9 g/dL Normal 1.5-4.5 [facility] Comment on above: Order Comment: Relea se to patient->Immediate Performed By: #### L AB293, LAB17 #### [facility] 1 , Glucose [Mass/Vol] 91 mg/dL Normal 65-99 [facility] Comment on above: Order Comment: Relea se to patient->Immediate Performed By: #### L AB293, LAB17 #### [facility] 1 , Potassium [Moles/Vol] 4.2 mmol/L Normal 3.5-5.2 [facility] Comment on above: Order Comment: Relea se to patient->Immediate Performed By: #### L AB293, LAB17 #### [facility] 1 , Protein [Mass/Vol] 7.7 g/dL Normal 6.0-8.5 [facility] Comment on above: Order Comment: Relea se to patient->Immediate Performed By: #### L AB293, LAB17 #### [facility] 1 , Sodium [Moles/Vol] 139 mmol/L Normal 134-144 [facility] Comment on above: Order Comment: Relea se to patient->Immediate Performed By: #### L AB293, LAB17 #### [facility] 1 , Urea nitrogen [Mass/Vol] 14 mg/dL Normal 6-24 [facility] Comment on above: Order Comment: Relea se to patient->Immediate Performed By: #### L AB293, LAB17 #### [facility] 1 , Urea nitrogen/Creatinine [Mass ratio] 16 mg/mg Normal 9-23 [facility] Comment on above: Order Comment: Relea se to patient->Immediate Performed By: #### L AB293, LAB17 #### [facility] 1 , Encounters Encounter Date Encounter Type Care Provider Facility Start: 05-26-2023 End: 05-27-2023 [facility] Start: 05-16-2023 ambulatory [facility] Start: 05-14-2023 End: 05-15-2023 ambulatory JOSI OSUNA [facility] Start: 05-08-2023 End: 05-09-2023 ambulatory TYRON GRANDA [facility] Start: 05-07-2023 Refill Josi Osuna MD Work Phone: [facility] Start: 05-01-2023 End: 05-16-2023 Orders Only Josi Osuna MD Work Phone: [facility] Comment on above: Encounter for screen ing mammogram for malignant neoplasm of breast (Primary Dx) Start: 04-03-2023 Refill Hiro Kaba RN [facility] Start: 03-06-2023 Refill Josi Osuna MD Work Phone: [facility] Comment on above: Primary hypertension ; Combined systolic and diastolic congestive heart failure, unspecified HF chronicity ([facility]); Acute combined systolic and diastolic congestive heart failure ([facility]); Cardiomegaly Start: 07-29-2022 End: 07-29-[address] ALISHA GALVEZ . Facility:[facility] Start: 07-15-2022 End: 07-15-2022 ambulatory ROBERT PORTILLO Facility:[facility] Start: 07-10-2022 ambulatory EDILSON~[id number] [facility] Start: 06-18-2022 End: 06-19-[address] ALISHA GALVEZ . Facility:[facility] Start: 06-14-2022 ambulatory EDILSON~[id number] [facility] Start: 06-14-2022 End: 06-14-[address] ALISHA GALVEZ . Facility:[facility] Start: 06-09-2022 End: 06-09-2022 ambulatory PENNY MASON . Facility:[facility] Start: 05-14-2022 ambulatory EDILSON~[id number] [facility] Start: 05-11-2022 End: 05-11-[address] ISACC SABA Facility:[facility] Start: 04-22-2022 End: 04-22-[address] YOLIS ARDON . Facility:[facility] Start: 04-03-2022 End: 04-03-2022 ambulatory ROBERT PORTILLO Facility:[facility] Start: 01-22-2022 End: 01-22-2022 ambulatory ALVA DIETZ Facility:[facility] Start: 12-22-2021 End: 12-22-2021 ambulatory ALVA DIETZ Facility:[facility] Start: 11-06-2021 End: 11-07-2021 ambulatory ALVA MIRELA Facility:[facility] Start: 09-13-2021 End: 09-14-2021 ambulatory ALVA DIETZ Facility:[facility] Procedures Date Procedure Procedure Detail Performing Clinician Start: 09-14-2022 Adult depression scr eening assessment Josi Osuna MD Work Phone: Start: 05-09-2022 Mammography Josi As if Work Phone: Plan of Treatment Date Care Activity Detail Author Start: 05-09-2024 Screening for malign ant neoplasm of breast Mammogram [facility] Start: 02-02-2024 Tobacco Counseling Tobacco Counselin g [facility] Start: 11-29-2023 Adult BMI Screening Adult BMI Screen ing [facility] Start: 11-29-2023 Tobacco Screening Tobacco Screening [facility] Start: 09-15-2023 Depression Screening Depression Scre ening [facility] Start: 06-16-2023 End: 06-16-2023 Patient encounter procedure 06/16/2023 3:00 PM EDT Office Visit [facility] [address] [place] [address] [place] [address] Anusha Roberto MD [address] [facility] [address] [place] [address] [facility] Start: 05-14-2023 End: 05-14-2023 Patient encounter procedure 05/14/2023 3:15 PM EST Appointment [facility] D[facility]A [address] [place] [phone] [facility] Start: 05-12-2023 End: 05-12-2023 Patient encounter procedure 05/12/2023 2:45 PM EST [facility] [address] [place] [address] Arrived [facility] Comment on above: Arrived Start: 05-08-2023 Subsequent hospital visit by physician [facility] Start: 05-01-2023 End: 05-01-2024 DBT Breast - bilateral screening Mammography screening bilateral with CAD Imaging Routine Encounter for screening mammogram for malignant neoplasm of breast Expected: 05/01/2023, Expires: 05/01/2024 [facility] Work Phone: Comment on above: Expected: 05/01/2023 , Expires: 05/01/2024 Start: 03-31-2023 End: 03-31-2023 Patient encounter procedure 03/31/2023 11:00 AM EST Office Visit [facility] [address] [place] [phone] [place], [place] [address] [address] [facility] Start: 03-24-2023 End: 03-24-2023 Patient encounter procedure [facility] Start: 11-15-2022 COVID-19 Vaccine ( season) COVID-19 Vaccine ( season) [facility] Start: 11-15-2022 Influenza vaccination Influenza Vacc ine [facility] Start: 05-26-1991 Adult BMI Follow Up Plan Adult BMI Follow Up Plan [facility] Start: 1984 DTaP,Tdap and Td Vaccines (5 - Tdap) DTaP,Tdap and Td Vaccines (5 - Tdap) [facility] Immunizations Immunization Date Immunization Notes Care Provider Fa cility 05-15-2021 influenza, seasonal, injectable Josi Ousna MD Work Phone: [facility] 05-15-2021 influenza virus vaccine, unspecified formulation Josi Osuna MD Work Phone: [facility] 01-02-2021 Influenza, injectabl e, Madin [place] Canine Kidney, quadrivalent with preservative Josi Osuna MD Work Phone: [facility] 11-14-2020 COVID-19, mRNA, LNP- S, PF, 30mcg/0.3mL Dose Josi Osuna MD Work Phone: [facility] 11-26-2018 influenza, injectabl e, quadrivalent, preservative free Josi Osuna MD Work Phone: [facility] 12-03-2007 hepatitis B vaccine, adult dosage Josi Osuna MD Work Phone: [facility] 08-27-2007 hepatitis B vaccine, adult dosage Josi Osuna MD Work Phone: [facility] 07-27-2007 hepatitis B vaccine, adult dosage Josi Osuna MD Work Phone: [facility] 04-16-1982 measles, mumps and rubella virus vaccine Josi Osuna MD Work Phone: [facility] 10-31-1978 diphtheria, tetanus toxoids and pertussis vaccine Josi Osuna MD Work Phone: [facility] 10-31-1978 poliovirus vaccine, unspecified formulation Josi Osuna MD Work Phone: [facility] 12-01-1976 poliovirus vaccine, unspecified formulation Josi Osuna MD Work Phone: [facility] 07-05-1975 diphtheria, tetanus toxoids and pertussis vaccine Josi Osuna MD Work Phone: [facility] 07-05-1975 poliovirus vaccine, unspecified formulation Josi Osuna MD Work Phone: [facility] 09-29-1974 diphtheria, tetanus toxoids and pertussis vaccine Josi Osuna MD Work Phone: [facility] 09-29-1974 measles, mumps and rubella virus vaccine Josi Osuna MD Work Phone: [facility] 09-29-1974 poliovirus vaccine, unspecified formulation Josi Osuna MD Work Phone: [facility] 08-03-1974 diphtheria, tetanus toxoids and pertussis vaccine Josi Osuna MD Work Phone: [facility] 08-03-1974 poliovirus vaccine, unspecified formulation Josi Osuna MD Work Phone: [facility] Payers Date Payer Category Payer Medicaid [id number] 2022 Medicaid [place] [id number] 2022-Present [address] [place] [address] [id number] 1973 Unknown [id number] [id number] 1973 Unknown [id number] 2.16.840.1.193106.3.579.2.5 1973 Unknown [id number] 2.16.840.1.993429.3.579.2.5 1973 Unknown [id number] [id number] 1973 Unknown [id number] 2.16.840.1.470641.3.579.2.5 1973 Unknown [id number] 2.16.840.1.888870.3.579.2.5 1973 Unknown [id number] 2.16.840.1.742091.3.579.2.5 1973 Unknown [id number] 2.16.840.1.441366.3.579.2.5 1973 Unknown [id number] 2.16.840.1.226706.3.579.2.5 93 1973 Unknown [id number] 2.16.840.1.395755.3.579.2.5 93 1973 Unknown [id number] 2.16.840.1.696322.3.579.2.5 93 1973 Unknown [id number] 2.16.840.1.760109.3.579.2.5 93 1973 Unknown [id number] 2.16.840.1.840688.3.579.2.1 286 1973 Unknown [id number] 2.16.840.1.648020.3.579.2.1 286 1973 Unknown [id number] 2.16.840.1.371711.3.579.2.1 286 1973 Unknown [id number] 2.16.840.1.841291.3.579.2.1 286 1973 Unknown [id number] 2.16.840.1.251250.3.579.2.1 286 1973 Unknown [id number] 2.16.840.1.790315.3.579.2.1 286 1959 Unknown [id number] Private Health Insurance [id number] Social History Date Type Detail Facility Start: 08-22-2022 Tobacco smoking stat [facility] Smokes tobacco daily [facility] History of tobacco use Cigarette Smoker P [facility] Start: 08-22-2022 End: 11-28-2022 Cigarettes smoked current (pack per day) - Reported 0.5 [facility] Start: 08-22-2022 Tobacco use and exposure Smoke less tobacco non-user [facility] Start: 11-28-2022 Alcohol intake Lifetime non-d christina (finding) [facility] Start: 09-14-2022 End: 11-28-2022 Alcohol Use Disorder Identification Test - Consumption [AUDIT-C] [facility] How often to you hav e a drink containing alcohol? Never [facility] How many standard dr inks containing alcohol do you have on a typical day? Patient does not drink [facility]le[facility] Brown Start: 1975 Sex Assigned At Not on file P [employer] [facility] Goals Date Patient Goal Desired Activity /State Personal health goal Comment on above: Formatting of this n ote might be different from the original. Evaluation of progress towards goal: safe transition from PMH to TTH Clinical Notes 08-09-2020 to 04-03-2023 Telephone Encounter - Hiro Kaba RN - 04/03/2023 1:08 PM ESTTelephone Encounter - Hiro Kaba RN - 04/03/2023 1:08 PM EST Note Date & Type Note Facility 04-03-2023 Miscellaneous Notes Formattin g of this note might be different from the original. Images from the original note were not included. [facility] in this encounter [facility] 04-03-2023 Telephone encount er Note Images from the original note were not included. [facility] 08-09-2020 Note Encounter Department : [facility] Progress Notes by REMBERTO Mcclellan at 08/09/2020 3:00 PM Author: REMBERTO McclellanService: -Author Type: Nurse Practitioner Filed: 08/09/2020 4:11 PMEncounter Date: 08/09/2020tatus: Signed Sweatband Maker: REMBERTO Mcclellan (Nurse Practitioner) Chinmay Knight [address] [place] [id number] : 45 y.o.: 1975Phone: (home) Encounter Date: 08/09/2020 Assessment Assessment and Plan: ICD-10-CM 1.Essential hypertension [id number] tartrate 37.5 mg Tab CBC W/DIFF Comprehensive Metabolic Panel Diagnoses and all orders for this visit: Essential hypertension (Primary) (Chronic) - metoprolol tartrate 37.5 mg Tab Dispense: 30 tablet; Refill: 6 - CBC W/DIFF - Comprehensive Metabolic Panel Will increase patient metoprolol to 37.5mg and have patient call in 2 week with an update. Will draw some labs in the office today. [facility] Evaluation as of 08/09/2020: -Determined Barrier: Inadequate living arrangements Ernestina Knight has the listed barrier(s) addressed at today's visit. The following plan was discussed and agreed upon at today's visit: Pt to follow plan as described. -Clinical Goal(s): oPatient to maintain blood pressure below 130/80 and to keep a log for the next office visit. (New (Controlled)) Subjective: Chief Complaint Patient presents with -Hypertension Patient concerned about how much blood pressure medication she is taking. Hypertension This is a chronic problem. The current episode started more than 1 year ago. The problem is unchanged. The problem is uncontrolled. Pertinent negatives include no chest pain, headaches, malaise/fatigue, neck pain, orthopnea, palpitations or shortness of breath. The patient is here for the following problems were assessed/reviewed at today's visit. Pertinent data reviewed with patient at visit Current Outpatient Medications Ordered in [facility] MedicationSigDispenseRefill -hydroCHLOROthiazide (HYDRODIURIL) 25 mg tabletTake 25 mg by mouth 2 times a day. -lisinopriL (ZESTRIL) 40 mg tabletTake 40 mg by mouth daily. -metoprolol tartrate 37.5 mg TabTake 37.5 mg by mouth 2 times a day.30 tablet6 -topiramate (TOPAMAX) 25 mg tabletTake 50 mg by mouth daily. No current [facility]-ordered facility-administered medications on file. No Known Allergies Review of Systems Constitutional: Negative for malaise/fatigue. Respiratory: Negative for shortness of breath. Cardiovascular: Negative for chest pain, palpitations and orthopnea. Musculoskeletal: Negative for neck pain. Neurological: Negative for headaches. Objective: Vitals: BP 154/92 Pulse 94 Temp 98.7 ?F (37.1 ?C) Resp 18 Ht 5' 2 (1.575 m) Wt 214 lb (97.1 kg) SpO2 98% BMI 39.14 kg/m? Physical Exam Vitals and nursing note reviewed. Constitutional: Appearance: Normal appearance. HENT: Head: Normocephalic. Right Ear: Tympanic membrane normal. Left Ear: Tympanic membrane normal. Nose: Nose normal. Mouth/Throat: Mouth: Mucous membranes are moist. Pharynx: Oropharynx is clear. Eyes: Extraocular Movements: Extraocular movements intact. Conjunctiva/sclera: Conjunctivae normal. Cardiovascular: Rate and Rhythm: Normal rate and regular rhythm. Pulmonary: Effort: Pulmonary effort is normal. Breath sounds: Normal breath sounds. Musculoskeletal: Cervical back: Normal range of motion. Neurological: General: No focal deficit present. Mental Status: She is alert. Psychiatric: Mood and Affect: Mood normal. Behavior: Behavior normal. Thought Content: Thought content normal. Judgment: Judgment normal. No results found for this or any previous visit (from the past 12 hour(s)). I have reviewed and updated all preliminary medical information for accuracy with the patient and corrected and completed as necessary. Electronically Signed by: Landy SR 08/09/2020 [facility] 08-09-2020 Note Encounter Department : [facility] Progress Notes by REMBERTO Mcclellan at 08/09/2020 3:00 PM Author: REMBERTO McclellanService: -Author Type: Nurse Practitioner Filed: 08/10/2020 9:48 AMEncounter Date: 08/09/2020tatus: Signed Sweatband Maker: REMBERTO Mcclellan (Nurse Practitioner) Please inform patient that her labs are all normal. Please inform her that her kidney function is back to normal [facility] 08-09-2020 Note Encounter Department : [facility] Progress Notes by Maci Holden CMA at 08/09/2020 3:00 PM Author: Maci Holden CMAService: -Author Type: Browning Processor Filed: 08/10/2020 12:44 PMEncounter Date: 08/09/2020tatus: Signed Sweatband Maker: Maci Holden CMA (Browning Processor) Left VM for patient with results and advised to return call with questions or concerns. [facility] Evaluation note Diagnosis Primary hypertension Unspecified essential hypertension Combined systolic and diastolic congestive heart failure, unspecified HF chronicity ([facility]) Acute combined systolic and diastolic congestive heart failure ([facility]) Cardiomegaly [facility] Diagnosis Encounter for screening mammogram for malignant neoplasm of breast- Primary [facility] filedocumented in this encounter [facility] filedocumented in this encounter [facility]ructionsNot on filedocumented in this encounter [facility] SystemInstructionsNot on filedocumented in this [facility] Summary Purpose Family History No Family History Records FoundNo Family History Records FoundNo Family History Records FoundNo Family History Records Found Advance Directives No Advanced Directives Records FoundLatest Code Status on File Code Status Date Activated Date Inactivated Comments Full Code 09/13/2022 10:36 PM 09/15/2022 6:30 PM Code Status History Code Status Date Activated Date Inactivated Comments Full Code 09/12/2022 5:05 PM 09/13/2022 10:01 PM Additional Source Comments INFORMATION SOURCE (unrecogn ized section and content) DATE CREATED AUTHOR 08/12/2020 [facility] DATE CREATED AUTHOR AUTHOR'S ORGANIZ ATION 07/11/2022 [facility] DATE CREATED AUTHOR AUTHOR'S ORGANIZ ATION 07/30/2022 [facility] DATE CREATED AUTHOR AUTHOR'S ORGANIZ ATION 05/28/2023 [facility] Reason for Visit (unrecogniz ed section and content) Reason Comments Med Refill Reason Onset Date Comments Med Refill 04/03/2023 Care Teams (unrecognized sec tion and content) Lab Scientist Relationship Specialty Start Date End Date Josi Osuna MD [address] [place] [address] PCP - General Internal Medicine 09/12/22 Lab Scientist Relationship Specialty Start Date End Date Josi Osuna MD [address] [place] [address] PCP - General Internal Medicine 09/12/22 Lab Scientist Relationship Specialty Start Date End Date Josi Osuna MD [address] [place] [address] PCP - General Internal Medicine 09/12/22 FOR RECORDS PERTAINING TO PATIENTS WHO ARE OR HAVE BEEN ENROLLED IN A CHEMICAL DEPENDENCY/SUBSTANCEABUSE PROGRAM, SOME INFORMATION MAY BE OMITTED. This clinical summary was aggregated from multiple sources. Caution should be exercised in using it in the provision of clinical care. This summary normalizes information from multiple sources, and as a consequence, information in this document may materially change the coding, format and clinical context of patient data. In addition, data may be omitted in some cases. CLINICAL DECISIONS SHOULD BE BASED ON THE PRIMARY CLINICAL RECORDS. [employer] provides no warranty or guarantee of the accuracy or completeness of information in this document.
--- NOTE | 2023-06-02 03:21 | ED_ITS ---
HPI - Back Pain/Injury General Chief Complaint: Back Pain/Injury Stated Complaint: BACK PAIN Time Seen by Provider: 06/02/23 02:59 Source: patient Mode of arrival: walk-in Limitations: no limitations History of Present Illness HPI Narrative: Patient presents with increased low back pain for the last 24 hours that radiates into the right thigh and hip. She localizes the pain to the mid low back with radiation into the right lower back. No injury. She said that she has been having back pain for some time . She is seeing an ortho in [place] and had an MRI last week - has not had follow up to review the report - she is scheduled to see them on 06/04/23. She has been prescribed motrin 800mg and tizanidine 4mg and been taking as scheduled without any improvement. No bowel or bladder dysfunction. No paralysis or LE weakness or new sensory changes in the LE or groin/pelvis. Related Data Home Medications Medication Instructions Recorded Confirmed aspirin 81 mg tablet,delayed 81 mg 03/13/23 release (Lynn Low Dose Aspirin) bumetanide 0.5 mg tablet mg 03/13/23 empagliflozin 10 mg tablet mg 03/13/23 (Jardiance) famotidine 20 mg tablet mg 03/13/23 metoprolol succinate 100 mg mg PO 03/13/23 tablet,extended release 24 hr omeprazole 40 mg capsule,delayed mg 03/13/23 release rosuvastatin 10 mg tablet mg 03/13/23 spironolactone 25 mg tablet mg 03/13/23 apixaban 5 mg tablet (Eliquis) mg 06/02/23 isosorbide mononitrate 30 mg mg PO 06/02/23 tablet,extended release 24 hr tizanidine 4 mg tablet mg 06/02/23 Allergies Allergy/AdvReac Type Severity Reaction Status Date / Time codeine AdvReac Mild Nausea Verified 06/02/23 02:59 keflex AdvReac Intermediate Hallucinati Uncoded 06/02/23 02:59 ng [facility] PFS Social History Smoking status: Current every day smoker Exam Narrative Exam Narrative: Afebrile general: Alert, no acute distress, patient resting comfortably Skin: warm, intact, no pallor noted Head: Normocephalic, atraumatic Eye: Normal conjunctiva Respiratory: No acute distress Abdomen: Morbidly obese. Back: inspection of the back shows no obvious deformity, no swelling, no ecchymosis, contusion, abrasion, swelling, erythema, fluctuance or induration. Tenderness noted to midline lumbar and right paralumbar soft tissue. Straight leg raise on left is negative. Straight leg raise on right is positive. No CVA tenderness noted bilaterally. Musculoskeletal: No deformity noted to bilateral lower extremities. no cyanosi s or mottling noted. normal pulses at DP and PT 2+ bilaterally and symmetrically. Normal 5/5 strength at ankles with dorsiflexion and plantar flexion. Patient is able to ambulate. Normal sensation noted to both lower extremities. Neurological: AAOx4, normal sensory and motor observed. L5-S1 reflexes intact symmetrically. DTR 2+ at patellar bilaterally. Psychiatric: Cooperative and interactive. Constitutional Vital Signs, click to edit/add: Last Vital Signs Temp 97.2 F L 06/02/23 02:55 Pulse 78 06/02/23 02:55 Resp 16 06/02/23 02:55 BP 158/92 H 06/02/23 02:55 Pulse Ox 99 06/02/23 02:55 O2 Del Method Room Air 06/02/23 02:55 Course Vital Signs Vital signs: Vital Signs Temperature 97.2 F L 06/02/23 02:55 Pulse Rate 78 06/02/23 02:55 Respiratory Rate 16 06/02/23 02:55 Blood Pressure 158/92 H 06/02/23 02:55 Pulse Oximetry 99 06/02/23 02:55 Oxygen Delivery Method Room Air 06/02/23 02:55 Temperature 97.2 F L 06/02/23 02:55 Pulse Rate 78 06/02/23 02:55 Respiratory Rate 16 06/02/23 02:55 Blood Pressure 158/92 H 06/02/23 02:55 Pulse Oximetry 99 06/02/23 02:55 Oxygen Delivery Method Room Air 06/02/23 02:55 MDM - Back Pain/Injury MDM Narrative Medical decision making narrative: Patient without neurological deficit to suggest acute cauda equina syndrome or other acute neurosurgical emergency. Patient without history to necessitate CT scanning and already had MRI. No indication for imaging at this time. She was given IM Dilaudid for pain and discharged home. She needs to contact her orthopedist or her PCP later this morning to get prescribed meds, as they are managing her pain, not this ER. Discharge Plan Discharge Stand Alone Forms: Portal Instructions Chief Complaint: Back Pain/Injury Clinical Impression: Lumbar radiculopathy, Acute exacerbation of chronic low back pain Patient Disposition: Home, Self-Care Time of Disposition Decision: 03:28 Prescriptions / Home Meds: No Action metoprolol succinate 100 mg tablet extended release 24 hr PO omeprazole 40 mg capsule,delayed release(DR/EC) aspirin [Lynn Low Dose Aspirin] 81 mg tablet,delayed release (DR/EC) 81 mg spironolactone 25 mg tablet famotidine 20 mg tablet bumetanide 0.5 mg tablet rosuvastatin 10 mg tablet Jardiance 10 mg tablet tizanidine 4 mg tablet isosorbide mononitrate 30 mg tablet extended release 24 hr PO Eliquis 5 mg tablet Instructions: Lumbar Radiculopathy (ED), Back Pain (ED), Lower Back Exercises (ED) Referrals: Physician,Non-Staff, MD [Primary Care Provider] - 1 week
[2023-06-02] MEDS: HYDROMORPHONE HCL 2 MG/ML VIAL IM (03:48)
== END 2023-06-02 04:02 | disposition home or self-care (01) ==
PROVIDERS: Emergency Provider Emergency Medicine
DX: M54.16 Radiculopathy, lumbar region (principal); G89.29 Other chronic pain; M54.50 Low back pain, unspecified; F17.210 Nicotine dependence, cigarettes, uncomplicated; Z79.82 Long term (current) use of aspirin; Z79.01 Long term (current) use of anticoagulants; Z79.899 Other long term (current) drug therapy
CPT/HCPCS: 96372; 99284; J1170

== ENCOUNTER 2023-06-16 14:02 | Outpatient (OUT) | payer MEDICAID, SELFPAY ==
--- OUTSIDE RECORDS SUMMARY | 2023-06-16 14:07 | XMS_ITS | CCD ---
Author Organization [facility] Care Team Providers Care Speech Assistant Name Role Phone PIERSON EDILSON, EDILSON~[phone] PIERSON Attending Unavailable PIERSON EDILSON, EDILSON~[phone] PIERSON Primary Care Unavailable PIERSON EDILSON, EDILSON~[phone] PIERSON Attending Unavailable PIERSON EDILSON, EDILSON~[phone] PIERSON Primary Care Unavailable PIERSON EDILSON, EDILSON~[phone] PIERSON Primary Care Unavailable PIERSON EDILSON, EDILSON~[phone] PIERSON Attending Unavailable MIRELA, ALVA Primary Care Unavailable WANDY, DR ISACC Gao Attending Unavailable WANDY, DR ISACC Gao Admitting Unavailable WANDY, DR ISACC Gao Consulting Unavailable CELINE KO Consulting Unavailable MIRELA, [...] LAGOS Attending Unavailable GELACIO FRAZIER Consulting Unavailable WANDY, DR ISACC Gao Attending Unavailable DR ISACC SABA Admitting Unavailable MIRELA, ALVA Primary Care Unavailable DR ISACC SABA Consulting Unavailable LIOR JIANG Consulting Unavailable MIRELA, ALVA Primary Care Unavailable AZ, DR SHARRI Briggs Attending Unavailable [place], DR SHARRI Briggs Admitting Unavailable DR LIZANDRO PENDLETON V Consulting Unavailable [place], DR SHARRI Briggs Consulting Unavailable LINDSEY, ROBERT Consulting Unavailable EDDY MELGOZA Consulting Unavailable MARKER ., DR BRITO Admitting Unavailable MARKER ., DR BRITO Attending Unavailable MIGUEL A, DR JT Gao Consulting Unavailable MIRELA, ALVA [...] Consulting Unavailable MIRELA, ALVA Primary Care Unavailable PEDRO HA Consulting Unavailable TRINITY ELLIS Consulting Unavailable MARKER ., DR BRITO Admitting Unavailable MARKER ., DR BRITO Consulting Unavailable MARKER ., DR BRITO Attending Unavailable MIRELA, WILEY FORD Primary Care Unavailable Thao Yris CLAROS Primary Care Provider THAO, MUHAMID M Referring Unavailable THAO, MUHAMID M Primary Care Unavailable SHADYJAMAR Referring Unavailable THAO, MUHAMID M Primary Care Unavailable SHADYJAMAR Attending Unavailable SHADY, JAMAR Jennifer Referring Unavailable THAO, MUHAMID M Primary Care Unavailable SHADY, JAMAR Jennifer Referring Unavailable THAO, MUHAMID M Primary Care Unavailable TYRON GRANDA Referring Unavailable THAO, MUHAMID M Primary Care Unavailable TYRON GRANDA Referring Unavailable THAO, MUHAMID M Primary Care Unavailable Allergies Allergy Classification Reported Allergen(s) Allergy Type Date of Onset Reaction(s) Facility (7 sources) Codeine; Translations: [CODEINE] Drug Allergy 1 Anaphylaxis [facility] Repository (1 source) Cephalexin Drug Allergy 2 [facility] Repository (5 sources) Cephalexin; Translations: [CEPHALEXIN] Drug Allergy 2 [facility] Medications Current Medications Medication Drug Class(es) Dates Sig (Normalized) Sig (Original) [id number] 200 actuat albuterol 0.09 mg/actuat metered dose [...] vascular disease; Translations: [Atherosclerotic heart disease of [place] coronary artery without angina pectoris] Onset: 09-12-2022 [...] Other usp (current) drug therapy; Translations: [OTH ZOO CARETAKER CURRENT DRUG THERAPY] Onset: 07-16-2022 Episodic Other [...] Occlusion of artery; 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[place] arteries of extremities, other extremity] Onset: 09-30-2022 [...] Maciel MD on 05/27/2023 10:23 PM Normal [facility] MAMM SCREENING 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 W 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 05-15-2023 MAMM SCREENING BILATERAL W CAD MAMM [...] AM 1 a MAMM 1 YR Normal [facility] AMYLASEon 07-15-2022 Amylase [Catalytic activity/Vol] 23 U/L Critically low 25-115 [facility] Comment on above: Performed By: #### C MADM, LENO, LIPA, CMP ####[facility] [address] [place] [address]DrSherrie Coates BNPon 07-15-2022 Natriuretic peptide B (Bld) [Mass/Vol] 94203.0 pg/mL Critically high <=900.0 [facility] Comment on above: Performed By: #### B HOISTING MACHINE OPERATOR ####[facility] [address] [place] [address]Dr. Marcell Coates CARDIAC ISACC 3-6on 3 CK [Catalytic activity/Vol] 72 U/L Normal 26-192 [facility] Comment on above: Performed By: #### B MP #### [facility] [address] [address] [address] Marcell Coates CK.MB [Mass/Vol] 1.21 ng/mL Normal <=3.60 [facility] Comment on above: Performed By: #### B MP #### [facility] [address] [address] [address] Marcell Coates HSTROP 47.6 pg/mL Normal 4.0-51.3 [facility] Comment on above: Result Comment: CUT- OFF POINTS HAVE BEEN ESTABLISHED BASED ON THE FOURTH UNIVERSAL DEFINITIONS OF MYOCARDIAL INFARCTION. THE UPPER REFERENCE LIMIT (URL) OF TROPONIN, DEFINED THE 99TH PERCENTILE OF cTnI DISTRIBUTION IN A REFERENCE POPULATION, HAS BEEN CONFIRMED THE DECISION THRESHOLD FOR CT DIAGNOSIS. Performed By: #### B MP #### [facility] [address] [address] [address] Marcell Coates CARDIAC ISACC ADMITon 023 CK [Catalytic activity/Vol] 64 U/L Normal 26-192 [facility] Comment on above: Performed By: #### C MADM, LENO, LIPA, CMP ####[facility] [address] [place] [address]Dr. Marcell Coates CK.MB [Mass/Vol] 1.33 ng/mL Normal <=3.60 [facility] Comment on above: Performed By: #### C MADM, LENO, LIPA, CMP ####[facility] [address] [place] [address]Dr. Marcell Coates HSTROP 47.5 pg/mL Normal 4.0-51.3 [facility] Comment on above: Result Comment: CUT- OFF POINTS HAVE BEEN ESTABLISHED BASED ON THE FOURTH UNIVERSAL DEFINITIONS OF MYOCARDIAL INFARCTION. THE UPPER REFERENCE LIMIT (URL) OF TROPONIN, DEFINED THE 99TH PERCENTILE OF cTnI DISTRIBUTION IN A REFERENCE POPULATION, HAS BEEN CONFIRMED THE DECISION THRESHOLD FOR CT DIAGNOSIS. Performed By: #### C MADM, LENO, LIPA, CMP ####[facility] [address] [place] [id number]. Marcell Coates CHASITY 44 ng/mL Normal 9-82 [facility] Comment on above: Performed By: #### C LENO HILLMAN LIPA, CMP ####[facility] [address] [place], [place] [address]QoDr. Marcell Coates CBC AUTO DIFFon 07-15-2022 BASO # 0.1 103/ul Normal 0.0-0.1 [facility] Comment on above: Performed By: #### B MP #### [facility] [address] [address] [address] Marcell Coates Basophils/100 WBC (Bld) 1.0 % Normal 0.2-2.0 [facility] Comment on above: Performed By: #### B MP #### [facility] [address] [address] [address] Marcell Coates EO # 0.4 103/ul Normal 0.0-0.7 [facility] Comment on above: Performed By: #### B MP #### [facility] [address] [address] [address] Marcell Coates Eosinophils/100 WBC (Bld) 3.0 % Normal 0.9-7.0 [facility] Comment on above: Performed By: #### B MP #### [facility] [address] [address] [address] Marcell Coates Erythrocyte distribution width (RBC) [Ratio] 14.2 % Normal 11.0-15.0 [facility] Comment on above: Performed By: #### B MP #### [facility] [address] [address] [address] Marcell Coates Hematocrit (Bld) [Volume fraction] 48.1 % Critically high 36.0-48.0 [facility] Comment on above: Performed By: #### B MP #### [facility] [address] [address] [address] Marcell Coates Hemoglobin (Bld) [Mass/Vol] 15.7 g/dL Normal 12.0-16.0 [facility] Comment on above: Performed By: #### B MP #### [facility] [address] [place] [address] Dr. Marcell Coates IG # 0.03 10e3/ul Normal 0.00-0.03 [facility] Comment on above: Performed By: #### B MP #### [facility] [address] [place] [address] Dr. Marcell Coates IG % 0.2 % Normal 0.0-0.5 [facility] Comment on above: Performed By: #### B MP #### [facility] [address] [place] [address] Dr. Marcell Coates LYMPH # 3.8 103/ul Normal 1.2-3.8 [facility] Comment on above: Performed By: #### B MP #### [facility] [address] [place] [address] Dr. Marcell Coates Lymphocytes/100 WBC (Bld) 30.5 % Normal 20.5-60.0 [facility] Comment on above: Performed By: #### B MP #### [facility] [address] [place] [address] Dr. Marcell Coates MANUAL DIFF REQ NO Normal [facility] Comment on above: Performed By: #### B MP #### [facility] [address] [place] [address] Dr. Marcell Coates MCH (RBC) [Entitic mass] 29.1 pg Normal 26.7-34.0 [facility] Comment on above: Performed By: #### B MP #### [facility] [address] [place] [address] Dr. Marcell Coates MCHC (RBC) [Mass/Vol] 32.6 g/dL Normal 29.9-35.2 [facility] Comment on above: Performed By: #### B MP #### [facility] [address] [place] [address] Dr. Marcell Coates MCV (RBC) [Entitic vol] 89.2 fL Normal 81.0-99.0 [facility] Comment on above: Performed By: #### B MP #### [facility] [address] [address] [address] Marcell Coates MONO # 0.9 103/ul Critically high 0.3-0.8 [facility] Comment on above: Performed By: #### B MP #### [facility] [address] [address] [address] Marcell Coates Monocytes/100 WBC (Bld) 6.9 % Normal 1.7-12.0 [facility] Comment on above: Performed By: #### B MP #### [facility] [address] [address] [address] Marcell Coates NEUT # 7.3 103/ul Critically high 1.4-6.5 [facility] Comment on above: Performed By: #### B MP #### [facility] [address] [place] [address] Dr. Marcell Coates Neutrophils/100 WBC (Bld) 58.4 % Normal 43.0-75.0 [facility] Comment on above: Performed By: #### B MP #### [facility] [address] [place] [address] Dr. Marcell Coates Platelet mean volume (Bld) [Entitic vol] 9.9 fL Normal 9.5-13.5 [facility] Comment on above: Performed By: #### B MP #### [facility] [address] [place] [address] Dr. Marcell Coates PLT 288 103/ul Normal 150-450 [facility] Comment on above: Performed By: #### B MP #### [facility] [address] [place] [address] Dr. Marcell Coates RBC 5.39 106/ul Normal 4.20-5.40 [facility] Comment on above: Performed By: #### B MP #### [facility] [address] [place] [address] Dr. Marcell Coates WBC 12.5 103/ul Critically high 4.0-11.0 [facility] Comment on above: Performed By: #### B MP #### [facility] [address] [place] [address] Dr. Marcell Coates CTA CHEST WO W [...] by: TRINITY ELLIS Date: 2022-07-15 02:50 Normal [facility] LACTATE/LACTIC ACIDon 2022 Lactate [Moles/Vol] 1.2 mmol/L Normal 0.4-2.0 [facility] Comment on above: Performed By: #### L IPA, LENO, CMP #### [facility] [address] [address] [address] Marcell Coates LIPASEon 07-15-2022 Lipase [Catalytic activity/Vol] 116.0 U/L Normal 73.0-393.0 [facility] Comment on above: Performed By: #### B MP #### [facility] [address] [place] [address] Dr. Marcell Coates PROF 14(COMP METB)on 023 Albumin [Mass/Vol] 3.5 g/dL Normal 3.4-5.0 [facility] Comment on above: Performed By: #### C MADM, LENO, LIPA, CMP ####[facility] [address] [place] [address]Dr. Marcell Coates Albumin/Globulin [Mass ratio] 1.1 {ratio} Normal [facility] Comment on above: Performed By: #### C MADM, LENO, LIPA, CMP ####[facility] [address] [place] [address]Dr. Marcell Coates ALP [Catalytic activity/Vol] 106 U/L Normal 46-116 [facility] Comment on above: Performed By: #### C MADM, LENO, LIPA, CMP ####[facility] [address] [place] [address]Dr. Marcell Coates ALT [Catalytic activity/Vol] 31 U/L Normal 14-59 [facility] Comment on above: Performed By: #### C MADM, LENO, LIPA, CMP ####[facility] [address] [place], [place] [address]Dr. Marcell Coates Anion gap [Moles/Vol] 14.8 mmol/L Normal [facility] Comment on above: Performed By: #### C MADM, LENO, LIPA, CMP ####[facility] [address] [place], [place] [address]Dr. Marcell Coates AST [Catalytic activity/Vol] 30 U/L Normal 15-37 [facility] Comment on above: Performed By: #### C MADM, LENO, LIPA, CMP ####[facility] [address] [place], [place] [address]Dr. Marcell Coates Bilirubin [Mass/Vol] 0.4 mg/dL Normal 0.2-1.0 [facility] Comment on above: Performed By: #### C MADM, LENO, LIPA, CMP ####[facility] [address] [place], [place] [address]Dr. Marcell Coates Calcium [Mass/Vol] 8.8 mg/dL Normal 8.5-10.1 [facility] Comment on above: Performed By: #### C MADM, LENO, LIPA, CMP ####[facility] [address] [place] [address]Dr. Marcell Coates Chloride [Moles/Vol] 106 mmol/L Normal 98-107 [facility] Comment on above: Performed By: #### C MADM, LENO, LIPA, CMP ####[facility] [address] [place] [address]Dr. Marcell Coates CO2 [Moles/Vol] 26.6 mmol/L Normal 21.0-32.0 [facility] Comment on above: Performed By: #### C MADM, LENO, LIPA, CMP ####[facility] [address] [place] [address]Dr. Marcell Coates Creatinine [Mass/Vol] 1.11 mg/dL Critically high 0.55-1.02 [facility] Comment on above: Performed By: #### C MADM, LENO, LIPA, CMP ####[facility] [address] [place], [place] [address]Dr. Marcell Coates EGFR-AF CYMRAES >60 Normal >=60 [facility] Comment on above: Performed By: #### C MADM, LENO, LIPA, CMP ####[facility] [address] [place], [place] [address]Dr. Marcell Coates EGFR-NON AF CYMRAES 52 mL/min/1.73m2 Critically low >=60 [facility] Comment on above: Performed By: #### C MADM, LENO, LIPA, CMP ####[facility] [address] [place] [address]Dr. Marcell Coates Globulin (S) [Mass/Vol] 3.1 g/dL Normal [facility] Comment on above: Performed By: #### C MADM, LENO, LIPA, CMP ####[facility] [address] [place] [address]Dr. Marcell Coates Glucose [Mass/Vol] 126 mg/dL Critically high 74-106 [facility] Comment on above: Performed By: #### C MADM, LENO, LIPA, CMP ####[facility] [address] [place], [place] [address]Dr. Marcell Coates Potassium [Moles/Vol] 3.4 mmol/L Critically low 3.5-5.1 [facility] Comment on above: Performed By: #### C LENO HILLMAN, LIPA, CMP ####[facility] [address] [place] [address]Dr. Marcell Coates Protein [Mass/Vol] 6.6 g/dL Normal 6.4-8.2 [facility] Comment on above: Performed By: #### C RAFY, LENO, LIPA, CMP ####[facility] [address] [place] [address]Dr. Marcell Coates Sodium [Moles/Vol] 144 mmol/L Normal 136-145 [facility] Comment on above: Performed By: #### C RAFY, LENO, LIPA, CMP ####[facility] [address] [place] [address]Dr. Marcell Coates Urea nitrogen [Mass/Vol] 16.0 mg/dL Normal 7.0-18.0 [facility] Comment on above: Performed By: #### C RAFY, LENO, LIPA, CMP ####[facility] [address] [place] [address]Dr. Marcell Coates Urea nitrogen/Creatinine [Mass ratio] 14.4 mg/mg Normal [facility] Comment on above: Performed By: #### C RAFY, LENO, LIPA, CMP ####[facility] [address] [place] [address]Dr. Marcell Coates XR ABD FLAT UP_PA Germaine [...] PEDRO HA Date: 2022-07-14 23:48 Normal [facility] US SINGLE QUAD RT UPPERon US [...] JT GRADY Date: 2022-06-18 12:36 Normal [facility] AMYLASEon 06-14-2022 Amylase [Catalytic activity/Vol] 19 U/L Critically low 25-115 [facility] Comment on above: Performed By: #### L IPA, LENO, CMP #### [facility] [address] [address] [address] Marcell Coates CBC AUTO DIFFon 06-14-2022 BASO # 0.1 103/ul Normal 0.0-0.1 [facility] Comment on above: Performed By: #### B MP #### [facility] [address] [place], [place] [address] Dr. Marcell Coates Basophils/100 WBC (Bld) 0.6 % Normal 0.2-2.0 [facility] Comment on above: Performed By: #### B MP #### [facility] [address] [address] [address] Marcell Coates EO # 0.3 103/ul Normal 0.0-0.7 [facility] Comment on above: Performed By: #### B MP #### [facility] [address] [address] [address] Marcell Coates Eosinophils/100 WBC (Bld) 1.8 % Normal 0.9-7.0 [facility] Comment on above: Performed By: #### B MP #### [facility] [address] [place] [address] Dr. Marcell Coates Erythrocyte distribution width (RBC) [Ratio] 14.2 % Normal 11.0-15.0 [facility] Comment on above: Performed By: #### B MP #### [facility] [address] [place] [address] Dr. Marcell Coates Hematocrit (Bld) [Volume fraction] 44.9 % Normal 36.0-48.0 [facility] Comment on above: Performed By: #### B MP #### [facility] [address] [place] [address] Dr. Marcell Coates Hemoglobin (Bld) [Mass/Vol] 14.8 g/dL Normal 12.0-16.0 [facility] Comment on above: Performed By: #### B MP #### [facility] [address] [place] [address] Dr. Marcell Coates IG # 0.18 10e3/ul Critically high 0.00-0.03 [facility] Comment on above: Performed By: #### B MP #### [facility] [address] [place] [address] Dr. Marcell Coates IG % 1.3 % Critically high 0.0-0.5 [facility] Comment on above: Performed By: #### B MP #### [facility] [address] [place] [address] Dr. Marcell Coates LYMPH # 3.4 103/ul Normal 1.2-3.8 [facility] Comment on above: Performed By: #### B MP #### [facility] [address] [place] [address] Dr. Marcell Coates Lymphocytes/100 WBC (Bld) 24.4 % Normal 20.5-60.0 [facility] Comment on above: Performed By: #### B MP #### [facility] [address] [place] [address] Dr. Marcell Coates MANUAL DIFF REQ NO Normal [facility] Comment on above: Performed By: #### B MP #### [facility] [address] [place] [address] Dr. Marcell Coates MCH (RBC) [Entitic mass] 29.4 pg Normal 26.7-34.0 [facility] Comment on above: Performed By: #### B MP #### [facility] [address] [place] [address] Dr. Marcell Coates MCHC (RBC) [Mass/Vol] 33.0 g/dL Normal 29.9-35.2 [facility] Comment on above: Performed By: #### B MP #### [facility] [address] [place] [address] Dr. Marcell Coates MCV (RBC) [Entitic vol] 89.3 fL Normal 81.0-99.0 [facility] Comment on above: Performed By: #### B MP #### [facility] [address] [place] [address] Dr. Marcell Coates MONO # 1.1 103/ul Critically high 0.3-0.8 [facility] Comment on above: Performed By: #### B MP #### [facility] [address] [place] [address] Dr. Marcell Coates Monocytes/100 WBC (Bld) 8.1 % Normal 1.7-12.0 [facility] Comment on above: Performed By: #### B MP #### [facility] [address] [place] [address] Dr. Marcell Coates NEUT # 8.9 103/ul Critically high 1.4-6.5 [facility] Comment on above: Performed By: #### B MP #### [facility] [address] [place] [address] Dr. Marcell Coates Neutrophils/100 WBC (Bld) 63.8 % Normal 43.0-75.0 [facility] Comment on above: Performed By: #### B MP #### [facility] [address] [place] [address] Dr. Marcell Coates Platelet mean volume (Bld) [Entitic vol] 10.2 fL Normal 9.5-13.5 [facility] Comment on above: Performed By: #### B MP #### [facility] [address] [place] [address] Dr. Marcell Coates PLT 284 103/ul Normal 150-450 [facility] Comment on above: Performed By: #### B MP #### [facility] [address] [place] [address] Dr. Marcell Coates RBC 5.03 106/ul Normal 4.20-5.40 [facility] Comment on above: Performed By: #### B MP #### [facility] [address] [place] [address] Dr. Marcell Coates WBC 13.9 103/ul Critically high 4.0-11.0 [facility] Comment on above: Performed By: #### B MP #### [facility] [address] [place] [address] Dr. Marcell Coates LIPASEon 06-14-2022 Lipase [Catalytic activity/Vol] 81.0 U/L Normal 73.0-393.0 [facility] Comment on above: Performed By: #### L LENO STERN CMP #### [facility] [address] [place] [address] Dr. Marcell Coates PROF 14(COMP METB)on 023 Albumin [Mass/Vol] 3.5 g/dL Normal 3.4-5.0 [facility] Comment on above: Performed By: #### L LENO STERN, CMP #### [facility] [address] [place] [address] Dr. Marcell Coates Albumin/Globulin [Mass ratio] 1.3 {ratio} Normal [facility] Comment on above: Performed By: #### L IPA, LENO, CMP #### [facility] [address] [address] [address] Marcell Coates ALP [Catalytic activity/Vol] 121 U/L Critically high 46-116 [facility] Comment on above: Performed By: #### L IPA, LENO, CMP #### [facility] [address] [address] [address] Marcell Coates ALT [Catalytic activity/Vol] 32 U/L Normal 14-59 [facility] Comment on above: Performed By: #### L IPA, LENO, CMP #### [facility] [address] [address] [address] Marcell Coates Anion gap [Moles/Vol] 16.4 mmol/L Normal [facility] Comment on above: Performed By: #### L IPA, LENO, CMP #### [facility] [address] [place] [address] [address] Marcell Coates AST [Catalytic activity/Vol] 31 U/L Normal 15-37 [facility] Comment on above: Performed By: #### L IPA, LENO, CMP #### [facility] [address] [address] [address] Marcell Coates Bilirubin [Mass/Vol] 0.5 mg/dL Normal 0.2-1.0 [facility] Comment on above: Performed By: #### L IPA, LENO, CMP #### [facility] [address] [address] [address] Marcell Coates Calcium [Mass/Vol] 8.6 mg/dL Normal 8.5-10.1 [facility] Comment on above: Performed By: #### L IPA, LENO, CMP #### [facility] [address] [address] [address] Marcell Coates Chloride [Moles/Vol] 104 mmol/L Normal 98-107 [facility] Comment on above: Performed By: #### L IPA, LENO, CMP #### [facility] [address] [place] [address] [address] Marcell Coates CO2 [Moles/Vol] 21.2 mmol/L Normal 21.0-32.0 [facility] Comment on above: Performed By: #### L LENO STERN, CMP #### [facility] [address] [address] [address] Marcell Coates Creatinine [Mass/Vol] 1.13 mg/dL Critically high 0.55-1.02 [facility] Comment on above: Performed By: #### L LEENA LENO, CMP #### [facility] [address] [address] [address] Marcell Coates EGFR-AF CYMRAES >60 Normal >=60 [facility] Comment on above: Performed By: #### L LENO STERN, CMP #### [facility] [address] [place] [address] Dr. Marcell Coates EGFR-NON AF CYMRAES 51 mL/min/1.73m2 Critically low >=60 [facility] Comment on above: Performed By: #### L LENO STERN, CMP #### [facility] [address] [place] [address] Dr. Marcell Coates Globulin (S) [Mass/Vol] 2.6 g/dL Normal [facility] Comment on above: Performed By: #### L LENO STERN, CMP #### [facility] [address] [place] [address] Dr. Marcell Coates Glucose [Mass/Vol] 139 mg/dL Critically high 74-106 [facility] Comment on above: Performed By: #### L LENO STERN, CMP #### [facility] [address] [address] [address] Marcell Coates Potassium [Moles/Vol] 3.6 mmol/L Normal 3.5-5.1 [facility] Comment on above: Performed By: #### L LENO STERN, CMP #### [facility] [address] [place] [address] Dr. Marcell Coates Protein [Mass/Vol] 6.1 g/dL Critically low 6.4-8.2 [facility] Comment on above: Performed By: #### L LENO STERN, CMP #### [facility] [address] [place] [address] Dr. Marcell Coates Sodium [Moles/Vol] 138 mmol/L Normal 136-145 [facility] Comment on above: Performed By: #### L LENO STERN, CMP #### [facility] [address] [place] [address] Dr. Marcell Coates Urea nitrogen [Mass/Vol] 18.0 mg/dL Normal 7.0-18.0 [facility] Comment on above: Performed By: #### L LENO STERN CMP #### [facility] [address] [place] [address] Dr. Marcell Coates Urea nitrogen/Creatinine [Mass ratio] 15.9 mg/mg Normal [facility] Comment on above: Performed By: #### L LENO STERN CMP #### [facility] [address] [place] [address] Dr. Marcell Coates TROPONIN, HIGH SENSITIVITYon 06-14-2022 HSTROP 36.3 pg/mL Normal 4.0-51.3 [facility] Comment on above: Result Comment: CUT- OFF POINTS HAVE BEEN ESTABLISHED BASED ON THE FOURTH UNIVERSAL DEFINITIONS OF MYOCARDIAL INFARCTION. THE UPPER REFERENCE LIMIT (URL) OF TROPONIN, DEFINED THE 99TH PERCENTILE OF cTnI DISTRIBUTION IN A REFERENCE POPULATION, HAS BEEN CONFIRMED THE DECISION THRESHOLD FOR CT DIAGNOSIS. Performed By: #### H STROPN ####[facility] [id number] [address]Dr. Marcell Coates AMYLASEon 06-09-2022 Amylase [Catalytic activity/Vol] 22 U/L Critically low 25-115 [facility] Comment on above: Performed By: #### B MP #### [facility] [address] [place] [address] Dr. Marcell Coates CBC AUTO DIFFon 06-09-2022 BASO # 0.1 103/ul Normal 0.0-0.1 [facility] Comment on above: Performed By: #### C BC #### [facility] [address] [place] [address] Dr. Marcell Coates Basophils/100 WBC (Bld) 0.6 % Normal 0.2-2.0 [facility] Comment on above: Performed By: #### C BC #### [facility] [address] [place] [address] Dr. Marcell Coates EO # 0.5 103/ul Normal 0.0-0.7 [facility] Comment on above: Performed By: #### C BC #### [facility] [address] [place] [address] Dr. Marcell Coates Eosinophils/100 WBC (Bld) 4.0 % Normal 0.9-7.0 [facility] Comment on above: Performed By: #### C BC #### [facility] [address] [place] [address] Dr. Marcell Coates Erythrocyte distribution width (RBC) [Ratio] 13.9 % Normal 11.0-15.0 [facility] Comment on above: Performed By: #### C BC #### [facility] [address] [place] [address] Dr. Marcell Coates Hematocrit (Bld) [Volume fraction] 46.2 % Normal 36.0-48.0 [facility] Comment on above: Performed By: #### C BC #### [facility] [address] [place] [address] Dr. Marcell Coates Hemoglobin (Bld) [Mass/Vol] 15.2 g/dL Normal 12.0-16.0 [facility] Comment on above: Performed By: #### C BC #### [facility] [address] [place] [address] Dr. Marcell Coates IG # 0.02 10e3/ul Normal 0.00-0.03 [facility] Comment on above: Performed By: #### C BC #### [facility] [address] [place] [address] Dr. Marcell Coates IG % 0.2 % Normal 0.0-0.5 [facility] Comment on above: Performed By: #### C BC #### [facility] [address] [place] [address] Dr. Marcell Coates LYMPH # 3.8 103/ul Normal 1.2-3.8 [facility] Comment on above: Performed By: #### C BC #### [facility] [address] [address] [address] Marcell Coates Lymphocytes/100 WBC (Bld) 31.4 % Normal 20.5-60.0 [facility] Comment on above: Performed By: #### C BC #### [facility] [address] [address] [address] Marcell Coates MANUAL DIFF REQ NO Normal [facility] Comment on above: Performed By: #### C BC #### [facility] [address] [place] [address] Dr. Marcell Coates MCH (RBC) [Entitic mass] 29.6 pg Normal 26.7-34.0 [facility] Comment on above: Performed By: #### C BC #### [facility] [address] [place] [address] Dr. Marcell Coates MCHC (RBC) [Mass/Vol] 32.9 g/dL Normal 29.9-35.2 [facility] Comment on above: Performed By: #### C BC #### [facility] [address] [place] [address] Dr. Marcell Coates MCV (RBC) [Entitic vol] 90.1 fL Normal 81.0-99.0 [facility] Comment on above: Performed By: #### C BC #### [facility] [address] [place] [address] Dr. Marcell Coates MONO # 0.9 103/ul Critically high 0.3-0.8 [facility] Comment on above: Performed By: #### C BC #### [facility] [address] [place] [address] Dr. Marcell Coates Monocytes/100 WBC (Bld) 7.7 % Normal 1.7-12.0 [facility] Comment on above: Performed By: #### C BC #### [facility] [address] [place] [address] Dr. Marcell Coates NEUT # 6.7 103/ul Critically high 1.4-6.5 [facility] Comment on above: Performed By: #### C BC #### [facility] [address] [address] [address] Marcell Coates Neutrophils/100 WBC (Bld) 56.1 % Normal 43.0-75.0 [facility] Comment on above: Performed By: #### C BC #### [facility] [address] [address] [address] Marcell Coates Platelet mean volume (Bld) [Entitic vol] 9.6 fL Normal 9.5-13.5 [facility] Comment on above: Performed By: #### C BC #### [facility] [address] [address] [address] Marcell Coates PLT 297 103/ul Normal 150-450 [facility] Comment on above: Performed By: #### C BC #### [facility] [address] [place] [address] Dr. Marcell Coates RBC 5.13 106/ul Normal 4.20-5.40 [facility] Comment on above: Performed By: #### C BC #### [facility] [address] [address] [address] Marcell Coates WBC 11.9 103/ul Critically high 4.0-11.0 [facility] Comment on above: Performed By: #### C BC #### [facility] [address] [place], [place] [id number] Dr. Marcell Coates CT ABD/PELVIS WO CONon [...] OSWALDO QUIROZ Date: 2022-06-09 01:12 Normal [facility] ER URINE PROFILEon 3 Bilirubin Ql (U) Negative Normal NEGATIVE [facility] Comment on above: Performed By: #### B MP #### [facility] [address] [place] [address] Dr. Marcell Coates Clarity (U) CLEAR Normal CLEAR [facility] Comment on above: Performed By: #### B MP #### [facility] [address] [place] [address] Dr. Marcell Coates Color (U) LT. YELLOW Normal YELLOW [facility] Comment on above: Performed By: #### B MP #### [facility] [address] [place] [address] Dr. Marcell ASHTON A micrscopic examination will be performed if indicated. Normal [facility] Comment on above: Performed By: #### B MP #### [facility] [address] [place] [address] Dr. Marcell Coates Glucose Ql (U) Negative Normal NEGATIVE [facility] Comment on above: Performed By: #### B MP #### [facility] [address] [place] [address] Dr. Marcell Coates Hemoglobin Ql (U) Negative Normal NEGATIVE [facility] Comment on above: Performed By: #### B MP #### [facility] [address] [place] [address] Dr. Marcell Coates Ketones Ql (U) Negative Normal NEGATIVE [facility] Comment on above: Performed By: #### B MP #### [facility] [address] [place] [address] Dr. Marcell Coates LEUKOCYTES Negative Normal NEGATIVE [facility] Comment on above: Performed By: #### B MP #### [facility] [address] [place] [address] Dr. Marcell Coates Nitrite Ql (U) Negative Normal NEGATIVE [facility] Comment on above: Performed By: #### B MP #### [facility] [address] [place] [address] Dr. Marcell Coates pH (U) 6.0 [pH] Normal 5-9 [facility] Comment on above: Performed By: #### B MP #### [facility] [address] [place] [address] Dr. Marcell Coates Protein (U) [Mass/Vol] 30 mg/dL Abnormal NEGATIVE/ TRACE [facility] Comment on above: Performed By: #### B MP #### [facility] [address] [place] [address] Dr. Marcell Coates SPEC GRAVITY <=1.005 Abnormal 1.005-<=1.025 [facility] Comment on above: Performed By: #### B MP #### [facility] [address] [place] [address] Dr. Marcell Coates UR MICRO IND NOT INDICATED Normal [facility] Comment on above: Performed By: #### B MP #### [facility] [address] [place] [address] Dr. Marcell Coates Urobilinogen Qn (U) 0.2 {Jl'U}/dL Normal 0.2 - 1. 0 [facility] Comment on above: Performed By: #### B MP #### [facility] [address] [place] [address] Dr. Marcell Coates LIPASEon 06-09-2022 Lipase [Catalytic activity/Vol] 82.0 U/L Normal 73.0-393.0 [facility] Comment on above: Performed By: #### B MP #### [facility] [address] [place] [address] Dr. Marcell Coates PROF 14(COMP METB)on 023 Albumin [Mass/Vol] 3.6 g/dL Normal 3.4-5.0 [facility] Comment on above: Performed By: #### B MP #### [facility] [address] [place] [address] Dr. Marcell Coates Albumin/Globulin [Mass ratio] 1.2 {ratio} Normal [facility] Comment on above: Performed By: #### B MP #### [facility] [address] [address] [address] Marcell Coates ALP [Catalytic activity/Vol] 92 U/L Normal 46-116 [facility] Comment on above: Performed By: #### B MP #### [facility] [address] [address] [address] Marcell Coates ALT [Catalytic activity/Vol] 30 U/L Normal 14-59 [facility] Comment on above: Performed By: #### B MP #### [facility] [address] [place] [address] Dr. Marcell Coates Anion gap [Moles/Vol] 12.0 mmol/L Normal [facility] Comment on above: Performed By: #### B MP #### [facility] [address] [place] [address] Dr. Marcell Coates AST [Catalytic activity/Vol] 25 U/L Normal 15-37 [facility] Comment on above: Performed By: #### B MP #### [facility] [address] [place] [address] Dr. Marcell Coates Bilirubin [Mass/Vol] 0.4 mg/dL Normal 0.2-1.0 [facility] Comment on above: Performed By: #### B MP #### [facility] [address] [place] [address] Dr. Marcell Coates Calcium [Mass/Vol] 8.7 mg/dL Normal 8.5-10.1 [facility] Comment on above: Performed By: #### B MP #### [facility] [address] [place] [address] Dr. Marcell Coates Chloride [Moles/Vol] 103 mmol/L Normal 98-107 [facility] Comment on above: Performed By: #### B MP #### [facility] [address] [place] [address] Dr. Marcell Coates CO2 [Moles/Vol] 24.5 mmol/L Normal 21.0-32.0 [facility] Comment on above: Performed By: #### B MP #### [facility] [address] [address] [address] Marcell Coates Creatinine [Mass/Vol] 1.04 mg/dL Critically high 0.55-1.02 [facility] Comment on above: Performed By: #### B MP #### [facility] [address] [address] [address] Marcell Coates EGFR-AF CYMRAES >60 Normal >=60 [facility] Comment on above: Performed By: #### B MP #### [facility] [address] [address] [address] Marcell Coates EGFR-NON AF CYMRAES 56 mL/min/1.73m2 Critically low >=60 [facility] Comment on above: Performed By: #### B MP #### [facility] [address] [place] [address] Dr. Marcell Coates Globulin (S) [Mass/Vol] 3.0 g/dL Normal [facility] Comment on above: Performed By: #### B MP #### [facility] [address] [place] [address] Dr. Marcell Coates Glucose [Mass/Vol] 109 mg/dL Critically high 74-106 [facility] Comment on above: Performed By: #### B MP #### [facility] [address] [place] [address] Dr. Marcell Coates Potassium [Moles/Vol] 3.5 mmol/L Normal 3.5-5.1 [facility] Comment on above: Performed By: #### B MP #### [facility] [address] [address] [address] Marcell Coates Protein [Mass/Vol] 6.6 g/dL Normal 6.4-8.2 [facility] Comment on above: Performed By: #### B MP #### [facility] [address] [place] [address] Dr. Marcell Coates Sodium [Moles/Vol] 136 mmol/L Normal 136-145 [facility] Comment on above: Performed By: #### B MP #### [facility] [address] [address] [address] Marcell Coates Urea nitrogen [Mass/Vol] 10.0 mg/dL Normal 7.0-18.0 [facility] Comment on above: Performed By: #### B MP #### [facility] [address] [address] [address] Marcell Coates Urea nitrogen/Creatinine [Mass ratio] 9.6 mg/mg Normal [facility] Comment on above: Performed By: #### B MP #### [facility] [address] [address] [address] Marcell Coates XR CHEST 1 Von [...] LIOR JIANG Date: 2022-05-11 03:02 Normal [facility] BNPon 04-22-2022 Natriuretic peptide B (Bld) [Mass/Vol] 9289.0 pg/mL Critically high <=450.0 [facility] Comment on above: Performed By: #### B HOISTING MACHINE OPERATOR, BMP #### [facility] [address] [address] [address] Marcell Coates CBC AUTO DIFFon 04-22-2022 BASO # 0.1 103/ul Normal 0.0-0.1 [facility] Comment on above: Performed By: #### L LENO STERN, CMP #### [facility] [address] [place] [address] Dr. Marcell Coates Basophils/100 WBC (Bld) 0.6 % Normal 0.2-2.0 [facility] Comment on above: Performed By: #### L LENO STERN, CMP #### [facility] [address] [place] [address] Dr. Marcell Coates EO # 0.4 103/ul Normal 0.0-0.7 [facility] Comment on above: Performed By: #### L LENO STERN, CMP #### [facility] [address] [place] [address] Dr. Marcell Coates Eosinophils/100 WBC (Bld) 2.9 % Normal 0.9-7.0 [facility] Comment on above: Performed By: #### L LENO STERN, CMP #### [facility] [address] [place] [address] Dr. Marcell Coates Erythrocyte distribution width (RBC) [Ratio] 14.5 % Normal 11.0-15.0 [facility] Comment on above: Performed By: #### L LENO STERN, CMP #### [facility] [address] [place] [address] Dr. Marcell Coates Hematocrit (Bld) [Volume fraction] 41.6 % Normal 36.0-48.0 [facility] Comment on above: Performed By: #### L LENO STERN, CMP #### [facility] [address] [place] [address] Dr. Marcell Coates Hemoglobin (Bld) [Mass/Vol] 13.1 g/dL Normal 12.0-16.0 [facility] Comment on above: Performed By: #### L LENO STERN, CMP #### [facility] [address] [place] [address] Dr. Marcell Coates IG # 0.05 10e3/ul Critically high 0.00-0.03 [facility] Comment on above: Performed By: #### L LENO STERN, CMP #### [facility] [address] [address] [address] Marcell Coates IG % 0.4 % Normal 0.0-0.5 [facility] Comment on above: Performed By: #### L LEENA LENO, CMP #### [facility] [address] [address] [address] Marcell Coates LYMPH # 3.1 103/ul Normal 1.2-3.8 [facility] Comment on above: Performed By: #### L LENO STERN, CMP #### [facility] [address] [place] [address] Dr. Marcell Coates Lymphocytes/100 WBC (Bld) 22.1 % Normal 20.5-60.0 [facility] Comment on above: Performed By: #### L LENO STERN, CMP #### [facility] [address] [place] [address] Dr. Marcell Coates MANUAL DIFF REQ NO Normal [facility] Comment on above: Performed By: #### L LENO STERN, CMP #### [facility] [address] [place] [address] Dr. Marcell Coates MCH (RBC) [Entitic mass] 29.8 pg Normal 26.7-34.0 [facility] Comment on above: Performed By: #### L LENO STERN, CMP #### [facility] [address] [place] [address] Dr. Marcell Coates MCHC (RBC) [Mass/Vol] 31.5 g/dL Normal 29.9-35.2 [facility] Comment on above: Performed By: #### L LEENA LENO, CMP #### [facility] [address] [place] [address] Dr. Marcell Coates MCV (RBC) [Entitic vol] 94.5 fL Normal 81.0-99.0 [facility] Comment on above: Performed By: #### L LEENA LENO, CMP #### [facility] [address] [place] [address] Dr. Marcell Coates MONO # 0.9 103/ul Critically high 0.3-0.8 [facility] Comment on above: Performed By: #### L IPA LENO, CMP #### [facility] [address] [place] [address] Dr. Marcell Coates Monocytes/100 WBC (Bld) 6.1 % Normal 1.7-12.0 [facility] Comment on above: Performed By: #### L IPA, LENO, CMP #### [facility] [address] [place] [address] Dr. Marcell Coates NEUT # 9.5 103/ul Critically high 1.4-6.5 [facility] Comment on above: Performed By: #### L IPA LENO, CMP #### [facility] [address] [place] [address] Dr. Marcell Coates Neutrophils/100 WBC (Bld) 67.9 % Normal 43.0-75.0 [facility] Comment on above: Performed By: #### L LEENA LENO, CMP #### [facility] [address] [place] [address] Dr. Marcell Coates Platelet mean volume (Bld) [Entitic vol] 10.0 fL Normal 9.5-13.5 [facility] Comment on above: Performed By: #### L LENO STERN, CMP #### [facility] [address] [place] [address] Dr. Marcell Coates PLT 285 103/ul Normal 150-450 [facility] Comment on above: Performed By: #### L LEENA LENO, CMP #### [facility] [address] [place] [address] Dr. Marcell Coates RBC 4.40 106/ul Normal 4.20-5.40 [facility] Comment on above: Performed By: #### L IPA LENO, CMP #### [facility] [address] [place] [address] Dr. Marcell Coates WBC 13.9 103/ul Critically high 4.0-11.0 [facility] Comment on above: Performed By: #### L IPA LENO, CMP #### [facility] [address] [place] [address] Dr. Marcell Coates PROF CHEM 8 (BAS METB)on Anion gap [Moles/Vol] 15.0 mmol/L Normal [facility] Comment on above: Performed By: #### B HOISTING MACHINE OPERATOR, BMP #### [facility] [address] [place] [address] Dr. Marcell Coates Calcium [Mass/Vol] 9.1 mg/dL Normal 8.5-10.1 [facility] Comment on above: Performed By: #### B HOISTING MACHINE OPERATOR, BMP #### [facility] [address] [place] [address] Dr. Marcell Coates Chloride [Moles/Vol] 107 mmol/L Normal 98-107 [facility] Comment on above: Performed By: #### B HOISTING MACHINE OPERATOR, BMP #### [facility] [address] [place] [address] Dr. Marcell Coates CO2 [Moles/Vol] 23.4 mmol/L Normal 21.0-32.0 [facility] Comment on above: Performed By: #### B HOISTING MACHINE OPERATOR, BMP #### [facility] [address] [place] [address] Dr. Marcell Coates Creatinine [Mass/Vol] 1.00 mg/dL Normal 0.55-1.02 [facility] Comment on above: Performed By: #### B HOISTING MACHINE OPERATOR, BMP #### [facility] [address] [place] [address] Dr. Marcell Coates EGFR-AF CYMRAES >60 Normal >=60 [facility] Comment on above: Performed By: #### B HOISTING MACHINE OPERATOR, BMP #### [facility] [address] [place] [address] Dr. Marcell Coates EGFR-NON AF CYMRAES 59 mL/min/1.73m2 Critically low >=60 [facility] Comment on above: Performed By: #### B HOISTING MACHINE OPERATOR, BMP #### [facility] [address] [place] [address] Dr. Marcell Coates Glucose [Mass/Vol] 166 mg/dL Critically high 74-106 [facility] Comment on above: Performed By: #### B HOISTING MACHINE OPERATOR, BMP #### [facility] [address] [place] [address] Dr. Marcell Coates Potassium [Moles/Vol] 3.4 mmol/L Critically low 3.5-5.1 [facility] Comment on above: Performed By: #### B HOISTING MACHINE OPERATOR, BMP #### [facility] [address] [address] [address] Marcell Coates Sodium [Moles/Vol] 142 mmol/L Normal 136-145 [facility] Comment on above: Performed By: #### B HOISTING MACHINE OPERATOR, BMP #### [facility] [address] [address] [address] Marcell Coates Urea nitrogen [Mass/Vol] 21.0 mg/dL Critically high 7.0-18.0 [facility] Comment on above: Performed By: #### B HOISTING MACHINE OPERATOR, BMP #### [facility] [address] [address] [address] Marcell Coates Urea nitrogen/Creatinine [Mass ratio] 21.0 mg/mg Normal [facility] Comment on above: Performed By: #### B HOISTING MACHINE OPERATOR, BMP #### [facility] [address] [address] [address] Marcell Coates TROPONIN, HIGH SENSITIVITYon 04-22-2022 HSTROP 48.9 pg/mL Normal 4.0-51.3 [facility] Comment on above: Result Comment: CUT- OFF POINTS HAVE BEEN ESTABLISHED BASED ON THE FOURTH UNIVERSAL DEFINITIONS OF MYOCARDIAL INFARCTION. THE UPPER REFERENCE LIMIT (URL) OF TROPONIN, DEFINED THE 99TH PERCENTILE OF cTnI DISTRIBUTION IN A REFERENCE POPULATION, HAS BEEN CONFIRMED THE DECISION THRESHOLD FOR CT DIAGNOSIS. Performed By: #### H STROPN ####[facility] [id number] [address]Dr. Marcell Coates XR CHEST 1 Von 04-22-2022 [...] LIZANDRO LATIF Date: 2022-04-22 19:45 Normal [facility] CARDIAC ISACC 3-6on 2 CK [Catalytic activity/Vol] 63 U/L Normal 26-192 [facility] Comment on above: Performed By: #### C MREP ####[facility] [id number] [place], [place] [address]Az. Marcell Coates CK.MB [Mass/Vol] 1.16 ng/mL Normal <=3.60 [facility] Comment on above: Performed By: #### C MREP ####[facility] [id number] [id number]. Marcell Coates HSTROP 27.4 pg/mL Normal 4.0-51.3 [facility] Comment on above: Result Comment: CUT- OFF POINTS HAVE BEEN ESTABLISHED BASED ON THE FOURTH UNIVERSAL DEFINITIONS OF MYOCARDIAL INFARCTION. THE UPPER REFERENCE LIMIT (URL) OF TROPONIN, DEFINED THE 99TH PERCENTILE OF cTnI DISTRIBUTION IN A REFERENCE POPULATION, HAS BEEN CONFIRMED THE DECISION THRESHOLD FOR CT DIAGNOSIS. Performed By: #### C MREP ####[facility] [address] [place] [id number]. Marcell Coates CARDIAC ISACC ADMITon 022 CK [Catalytic activity/Vol] 67 U/L Normal 26-192 [facility] Comment on above: Performed By: #### C MADM, BMP ####[facility] [address] [place], [place] [address]Ii. Marcell Coates CK.MB [Mass/Vol] 0.84 ng/mL Normal <=3.60 [facility] Comment on above: Performed By: #### C MADM, BMP ####[facility] [address]ou[address]kdt[address] [place], [place] [address]Bf. Marcell Coates HSTROP 25.4 pg/mL Normal 4.0-51.3 [facility] Comment on above: Result Comment: CUT- OFF POINTS HAVE BEEN ESTABLISHED BASED ON THE FOURTH UNIVERSAL DEFINITIONS OF MYOCARDIAL INFARCTION. THE UPPER REFERENCE LIMIT (URL) OF TROPONIN, DEFINED THE 99TH PERCENTILE OF cTnI DISTRIBUTION IN A REFERENCE POPULATION, HAS BEEN CONFIRMED THE DECISION THRESHOLD FOR CT DIAGNOSIS. Performed By: #### C MADM, BMP ####[facility] [address] [place] [id number]. Marcell Coates CHASITY 44 ng/mL Normal 9-82 [facility] Comment on above: Performed By: #### C MADM, BMP ####[facility] [address] [place] [id number]. Marcell Coates CBC AUTO DIFFon 01-22-2022 BASO # 0.1 103/ul Normal 0.0-0.1 [facility] Comment on above: Performed By: #### L IPA, LENO, CMP #### [facility] [address] [place] [address] [address] Marcell Coates Basophils/100 WBC (Bld) 0.7 % Normal 0.2-2.0 [facility] Comment on above: Performed By: #### L IPA LENO, CMP #### [facility] [address] [place] [address] Dr. Marcell Coates EO # 0.5 103/ul Normal 0.0-0.7 [facility] Comment on above: Performed By: #### L IPA LENO, CMP #### [facility] [address] [place] [address] Dr. Marcell Coates Eosinophils/100 WBC (Bld) 4.4 % Normal 0.9-7.0 [facility] Comment on above: Performed By: #### L IPA, LENO, CMP #### [facility] [address] [place] [address] Dr. Marcell Coates Erythrocyte distribution width (RBC) [Ratio] 13.3 % Normal 11.0-15.0 [facility] Comment on above: Performed By: #### L IPA, LENO, CMP #### [facility] [address] [place] [address] Dr. Marcell Coates Hematocrit (Bld) [Volume fraction] 41.9 % Normal 36.0-48.0 [facility] Comment on above: Performed By: #### L IPA, LENO, CMP #### [facility] [address] [place] [address] Dr. Marcell Coates Hemoglobin (Bld) [Mass/Vol] 14.2 g/dL Normal 12.0-16.0 [facility] Comment on above: Performed By: #### L LENO STERN, CMP #### [facility] [address] [address] [address] Marcell Coates IG # 0.03 10e3/ul Normal 0.00-0.03 [facility] Comment on above: Performed By: #### L LENO STERN, CMP #### [facility] [address] [address] [address] Marcell Coates IG % 0.2 % Normal 0.0-0.5 [facility] Comment on above: Performed By: #### L LENO STERN, CMP #### [facility] [address] [place] [address] Dr. Marcell Coates LYMPH # 4.0 103/ul Critically high 1.2-3.8 [facility] Comment on above: Performed By: #### L LENO STERN, CMP #### [facility] [address] [place] [address] Dr. Marcell Coates Lymphocytes/100 WBC (Bld) 32.9 % Normal 20.5-60.0 [facility] Comment on above: Performed By: #### L LENO STERN, CMP #### [facility] [address] [place] [address] Dr. Marcell Coates MANUAL DIFF REQ NO Normal [facility] Comment on above: Performed By: #### L LENO STERN, CMP #### [facility] [address] [address] [address] Marcell Coates MCH (RBC) [Entitic mass] 30.3 pg Normal 26.7-34.0 [facility] Comment on above: Performed By: #### L LENO STERN, CMP #### [facility] [address] [address] [address] Marcell Coates MCHC (RBC) [Mass/Vol] 33.9 g/dL Normal 29.9-35.2 [facility] Comment on above: Performed By: #### L LENO STERN, CMP #### [facility] [address] [place] [address] Dr. Marcell Coates MCV (RBC) [Entitic vol] 89.5 fL Normal 81.0-99.0 [facility] Comment on above: Performed By: #### L IPA LENO, CMP #### [facility] [address] [address] [address] Marcell Coates MONO # 0.9 103/ul Critically high 0.3-0.8 [facility] Comment on above: Performed By: #### L IPA, LENO, CMP #### [facility] [address] [place] [address] Dr. Marcell Coates Monocytes/100 WBC (Bld) 7.3 % Normal 1.7-12.0 [facility] Comment on above: Performed By: #### L IPA LENO, CMP #### [facility] [address] [place] [address] Dr. Marcell Coates NEUT # 6.6 103/ul Critically high 1.4-6.5 [facility] Comment on above: Performed By: #### L IPA LENO, CMP #### [facility] [address] [place] [address] Dr. Marcell Coates Neutrophils/100 WBC (Bld) 54.5 % Normal 43.0-75.0 [facility] Comment on above: Performed By: #### L IPA LENO, CMP #### [facility] [address] [place] [address] Dr. Marcell Coates Platelet mean volume (Bld) [Entitic vol] 10.0 fL Normal 9.5-13.5 [facility] Comment on above: Performed By: #### L IPA LENO, CMP #### [facility] [address] [place] [address] Dr. Marcell Coates PLT 250 103/ul Normal 150-450 [facility] Comment on above: Performed By: #### L IPA, LENO, CMP #### [facility] [address] [place] [address] Dr. Marcell Coates RBC 4.68 106/ul Normal 4.20-5.40 [facility] Comment on above: Performed By: #### L LENO STERN, CMP #### [facility] [address] [place], [place] [address] Dr. Marcell Coates WBC 12.1 103/ul Critically high 4.0-11.0 [facility] Comment on above: Performed By: #### L LENO STERN, CMP #### [facility] [address] [place], [place] [address] HEAD WO CONon [...] HAYLEE KILPATRICK Date: 2022-01-22 01:46 Normal [facility] PROF CHEM 8 (BAS METB)on Anion gap [Moles/Vol] 13.4 mmol/L Normal [facility] Comment on above: Performed By: #### C RAFY BMP ####[facility] [address] [place] [address]DrSherrie Coates Calcium [Mass/Vol] 9.6 mg/dL Normal 8.5-10.1 [facility] Comment on above: Performed By: #### C RAFY BMP ####[facility] [address] [place] [address]DrSherrie Coates Chloride [Moles/Vol] 103 mmol/L Normal 98-107 [facility] Comment on above: Performed By: #### C RAFY, BMP ####[facility] [address] [place] [address]DrSherrie Coates CO2 [Moles/Vol] 25.4 mmol/L Normal 21.0-32.0 [facility] Comment on above: Performed By: #### Coleen HILLMAN, BMP ####[facility] [address] [place] [address]Dr. Marcell Coates Creatinine [Mass/Vol] 0.97 mg/dL Normal 0.55-1.02 [facility] Comment on above: Performed By: #### C RAFY, BMP ####[facility] [address] [place] [address]Dr. Ansilvio Jaxon EGFR-AF CYMRAES >60 Normal >=60 [facility] Comment on above: Performed By: #### C RAFY, BMP ####[facility] [address] [place] [address]Dr. Marcell Coates EGFR-NON AF CYMRAES >60 Normal >=60 [facility] Comment on above: Performed By: #### Coleen HILLMAN, BMP ####[facility] [address] [place] [address]Dr. Marcell Coates Glucose [Mass/Vol] 146 mg/dL Critically high 74-106 [facility] Comment on above: Performed By: #### Coleen HILLMAN, BMP ####[facility] [address] [place] [address]Dr. Marcell Coates Potassium [Moles/Vol] 3.8 mmol/L Normal 3.5-5.1 [facility] Comment on above: Performed By: #### Coleen HILLMAN, BMP ####[facility] [address] [place] [address]Dr. Marcell Coates Sodium [Moles/Vol] 138 mmol/L Normal 136-145 [facility] Comment on above: Performed By: #### C RAFY, BMP ####[facility] [address] [place] [address]Dr. Marcell Coates Urea nitrogen [Mass/Vol] 19.0 mg/dL Critically high 7.0-18.0 [facility] Comment on above: Performed By: #### Coleen HILLMAN, BMP ####[facility] [address] [place] [address]Dr. Marcell Coates Urea nitrogen/Creatinine [Mass ratio] 19.6 mg/mg Normal [facility] Comment on above: Performed By: #### C RAFY, [facility] ####[facility] [address] [place] [address]Dr. Marcell Coates XR CHEST 1 Von 01-22-2022 [...] Minal HARRIS Date: 2022-01-22 01:40 Normal [facility] XR SHOULDER LT 2V or >on [...] Minal HARRIS Date: 2022-01-22 04:36 Normal [facility] CBC AUTO DIFFon 12-22-2021 BASO # 0.1 103/ul Normal 0.0-0.1 [facility] Comment on above: Performed By: #### C BC ####[facility] [address] [place] [address]DrSherrie Marcell Coates Basophils/100 WBC (Bld) 0.6 % Normal 0.2-2.0 [facility] Comment on above: Performed By: #### C BC ####[facility] [address] [place] [address]DrSherrie Marcell Coates EO # 0.6 103/ul Normal 0.0-0.7 [facility] Comment on above: Performed By: #### C BC ####[facility] [address]uf[address] [place] [address]Dr. Marcell Coates Eosinophils/100 WBC (Bld) 4.8 % Normal 0.9-7.0 [facility] Comment on above: Performed By: #### C BC ####[facility] [address] [place], [place] [address]Dr. Marcell Coates Erythrocyte distribution width (RBC) [Ratio] 13.5 % Normal 11.0-15.0 [facility] Comment on above: Performed By: #### C BC ####[facility] Rot[address] [place], [place] [address]Dr. Marcell Coates Hematocrit (Bld) [Volume fraction] 43.7 % Normal 36.0-48.0 [facility] Comment on above: Performed By: #### C BC ####[facility] [address] [place], [place] [address]Dr. Marcell Coates Hemoglobin (Bld) [Mass/Vol] 14.4 g/dL Normal 12.0-16.0 [facility] Comment on above: Performed By: #### C BC ####[facility] [address] [place], [place] [address]Dr. Marcell Coates IG # 0.04 10e3/ul Critically high 0.00-0.03 [facility] Comment on above: Performed By: #### C BC ####[facility] [address] [place], [place] [address]Dr. Marcell Coates IG % 0.3 % Normal 0.0-0.5 [facility] Comment on above: Performed By: #### C BC ####[facility] [address]tr[address] [place], [place] [address]Dr. Marcell Coates LYMPH # 3.2 103/ul Normal 1.2-3.8 [facility] Comment on above: Performed By: #### C BC ####[facility] [address] [place], [place] [address]Dr. Marcell Coates Lymphocytes/100 WBC (Bld) 24.6 % Normal 20.5-60.0 [facility] Comment on above: Performed By: #### C BC ####[facility] [address] [place] [address]Dr. Marcell Coates MANUAL DIFF REQ NO Normal [facility] Comment on above: Performed By: #### C BC ####[facility] [address] [place] [address]Dr. Marcell Coates MCH (RBC) [Entitic mass] 29.9 pg Normal 26.7-34.0 [facility] Comment on above: Performed By: #### C BC ####[facility] [address] [place] [address]Dr. Marcell Coates MCHC (RBC) [Mass/Vol] 33.0 g/dL Normal 29.9-35.2 [facility] Comment on above: Performed By: #### C BC ####[facility] [address] [place], [place] [address]Dr. Marcell Coates MCV (RBC) [Entitic vol] 90.9 fL Normal 81.0-99.0 [facility] Comment on above: Performed By: #### C BC ####[facility] [address] [place], [place] [address]Dr. Marcell Coates MONO # 1.2 103/ul Critically high 0.3-0.8 [facility] Comment on above: Performed By: #### C BC ####[facility] [address] [place], [place] [address]Dr. Marcell Coates Monocytes/100 WBC (Bld) 9.1 % Normal 1.7-12.0 [facility] Comment on above: Performed By: #### C BC ####[facility] [address] [place], [place] [address]DrSherrie Coates NEUT # 7.9 103/ul Critically high 1.4-6.5 [facility] Comment on above: Performed By: #### C BC ####[facility] [address] [place], [place] [address]DrSherrie Coates Neutrophils/100 WBC (Bld) 60.6 % Normal 43.0-75.0 [facility] Comment on above: Performed By: #### C BC ####[facility] [address] [place] [address]Dr. Marcell Coates Platelet mean volume (Bld) [Entitic vol] 10.2 fL Normal 9.5-13.5 [facility] Comment on above: Performed By: #### C BC ####[facility] [address] [place], [place] [address]Nw. Marcell Coates PLT 284 103/ul Normal 150-450 [facility] Comment on above: Performed By: #### C BC ####[facility] Q[address]xyefbzp[address] [place], [place] [address]Mz. Marcell Coates RBC 4.81 106/ul Normal 4.20-5.40 [facility] Comment on above: Performed By: #### C BC ####[facility] [address]wg[address] [place] [address]Dr. Marcell Coates WBC 13.0 103/ul Critically high 4.0-11.0 [facility] Comment on above: Performed By: #### C BC ####[facility] V[address] [place], [place] [address]Lt. Marcell Coates CTA CHEST WO W CONon [...] LIOR JIANG Date: 2021-12-22 03:52 Normal [facility] Covid-19 PCR (CVDTB)on SARS-CoV-2 (COVID-19) RNA RUSSELL+probe Ql (Unsp spec) Not detected Normal NOT DETECTED [facility] Comment on above: Result Comment: When [...] for this test is supported by the Water Quality Manager of Health and Human Service's declaration that [...] By: #### L LENO STERN, CMP #### [facility] [address] [place] [address] Dr. Marcell Coates INFLUENZA A AND B AGon 12-22 INFLUENZA A AG Negative Normal NEGATIVE SEE COMMENT [facility] Comment on above: Performed By: #### I NFLUAB ####[facility] [address] [place] [address]Dr. Marcell Coates INFLUENZA B AG Negative Normal NEGATIVE SEE COMMENT [facility] Comment on above: Performed By: #### I NFLUAB ####[facility] [address] [place] [address]Dr. Marcell Coates INFLUPOSH SEE BELOW Normal [facility] Comment on above: Result Comment: NOTE : Live attenuated influenzae vaccine viruses can cause a positive result for a rapid influenza diagnostic test if administered up to 7 days prior to rapid testing. Performed By: #### I NFLUAB ####[facility] [address] [place] [address]Dr. Marcell Coates INFLUPOSHB SEE BELOW Normal [facility] Comment on above: Result Comment: NOTE : Live attenuated influenzae vaccine viruses can cause a positive result for a rapid influenza diagnostic test if administered up to 7 days prior to rapid testing. Performed By: #### I NFLUAB ####[facility] [address] [place], [place] [address]Dr. Marcell Coates INTERNAL CONTROLS Within Normal Limits Normal Wi thin Normal Limits [facility] Comment on above: Performed By: #### I NFLUAB ####[facility] [address] [place], [place] [address]DrSherrie Coates PROF CHEM 8 (BAS METB)on Anion gap [Moles/Vol] 14.3 mmol/L Normal [facility] Comment on above: Performed By: #### B MP #### [facility] [address] [place] [address] Dr. Marcell Coates Calcium [Mass/Vol] 9.0 mg/dL Normal 8.5-10.1 [facility] Comment on above: Performed By: #### B MP #### [facility] [address] [place] [address] [address] Marcell Coates Chloride [Moles/Vol] 105 mmol/L Normal 98-107 [facility] Comment on above: Performed By: #### B MP #### [facility] [address] [place] [address] Dr. Marcell Coates CO2 [Moles/Vol] 24.6 mmol/L Normal 21.0-32.0 [facility] Comment on above: Performed By: #### B MP #### [facility] [address] [place] [address] [address] Marcell Coates Creatinine [Mass/Vol] 1.19 mg/dL Critically high 0.55-1.02 [facility] Comment on above: Performed By: #### B MP #### [facility] [address] [place] [address] [address] Marcell Coates EGFR-AF CYMRAES 59 mL/min/1.73m2 Critically low >=60 [facility] Comment on above: Performed By: #### B MP #### [facility] [address] [place] [address] [address] Marcell Coates EGFR-NON AF CYMRAES 48 mL/min/1.73m2 Critically low >=60 [facility] Comment on above: Performed By: #### B MP #### [facility] [address] [place] [address] [address] Marcell Coates Glucose [Mass/Vol] 124 mg/dL Critically high 74-106 [facility] Comment on above: Performed By: #### B MP #### [facility] [address] [place] [address] [address] Marcell Coates Potassium [Moles/Vol] 3.9 mmol/L Normal 3.5-5.1 [facility] Comment on above: Performed By: #### B MP #### [facility] [address] [place] [address] [address] Marcell Coatse Sodium [Moles/Vol] 140 mmol/L Normal 136-145 [facility] Comment on above: Performed By: #### B MP #### [facility] [address] [place] [address] [address] Marcell Coates Urea nitrogen [Mass/Vol] 18.0 mg/dL Normal 7.0-18.0 [facility] Comment on above: Performed By: #### B MP #### [facility] [address] [place] [address] [address] Marcell Coates Urea nitrogen/Creatinine [Mass ratio] 15.1 mg/mg Normal [facility] Comment on above: Performed By: #### B MP #### [facility] [address] [place], [place] [address] Dr. Marcell Coates XR CHEST 1 Von [...] LIOR JIANG Date: 2021-12-22 01:41 Normal [facility] CBC AUTO DIFFon 11-07-2021 BASO # 0.1 103/ul Normal 0.0-0.1 [facility] Comment on above: Performed By: #### C BC ####[facility] [address]ob[address] [place] [address]DrSherrie Coates Basophils/100 WBC (Bld) 1.0 % Normal 0.2-2.0 [facility] Comment on above: Performed By: #### C BC ####[facility] [address] [place] [address]Dr. Marcell Coates EO # 0.4 103/ul Normal 0.0-0.7 [facility] Comment on above: Performed By: #### C BC ####[facility] [address]urt[address]osp[address] [place], [place] [address]BgSherrie Coates Eosinophils/100 WBC (Bld) 3.7 % Normal 0.9-7.0 [facility] Comment on above: Performed By: #### C BC ####[facility] [address] [place], [place] [address]WlSherrie Coates Erythrocyte distribution width (RBC) [Ratio] 13.8 % Normal 11.0-15.0 [facility] Comment on above: Performed By: #### C BC ####[facility] [address] [place] [address]Dr. Marcell Jaxon Hematocrit (Bld) [Volume fraction] 45.2 % Normal 36.0-48.0 [facility] Comment on above: Performed By: #### C BC ####[facility] N[address]ac[address] [place] [address]Dr. Marcell Coates Hemoglobin (Bld) [Mass/Vol] 15.2 g/dL Normal 12.0-16.0 [facility] Comment on above: Performed By: #### C BC ####[facility] [address] [place], [place] [address]DrSherrie Coates IG # 0.03 10e3/ul Normal 0.00-0.03 [facility] Comment on above: Performed By: #### C BC ####[facility] [address] [place], [place] [address]DrSherrie Coates IG % 0.3 % Normal 0.0-0.5 [facility] Comment on above: Performed By: #### C BC ####[facility] [address] [place], [place] [address]DrSherrie Coates LYMPH # 4.0 103/ul Critically high 1.2-3.8 [facility] Comment on above: Performed By: #### C BC ####[facility] [address]xs[address]dau[address] [place], [place] [address]DrSherrie Coates Lymphocytes/100 WBC (Bld) 34.8 % Normal 20.5-60.0 [facility] Comment on above: Performed By: #### C BC ####[facility] [address] [place], [place] [address]DrSherrie Coates MANUAL DIFF REQ NO Normal [facility] Comment on above: Performed By: #### C BC ####[facility] [address] [place], [place] [address]DrSherrie Coates MCH (RBC) [Entitic mass] 30.3 pg Normal 26.7-34.0 [facility] Comment on above: Performed By: #### C BC ####[facility] [address]pr[address] [place] [address]Dr. Marcell Coates MCHC (RBC) [Mass/Vol] 33.6 g/dL Normal 29.9-35.2 [facility] Comment on above: Performed By: #### C BC ####[facility] F[address]zjgnm[address] [place] [address]Dr. Marcell Jaxon MCV (RBC) [Entitic vol] 90.2 fL Normal 81.0-99.0 [facility] Comment on above: Performed By: #### C BC ####[facility] [address]yxgb[address] [place] [address]Dr. Marcell Coates MONO # 1.0 103/ul Critically high 0.3-0.8 [facility] Comment on above: Performed By: #### C BC ####[facility] [address]em[address]ok[address] [place] [address]Dr. Marcell Coates Monocytes/100 WBC (Bld) 8.7 % Normal 1.7-12.0 [facility] Comment on above: Performed By: #### C BC ####[facility] Y[address]xbpqbft[address] [place] [address]Dr. Marcell Coates NEUT # 5.9 103/ul Normal 1.4-6.5 [facility] Comment on above: Performed By: #### C BC ####[facility] [address]jtztse[address] [place] [address]Dr. Marcell Coates Neutrophils/100 WBC (Bld) 51.5 % Normal 43.0-75.0 [facility] Comment on above: Performed By: #### C BC ####[facility] [address]fflwtsru[address] [place] [address]DrSherrie Marcell Jaxon Platelet mean volume (Bld) [Entitic vol] 9.7 fL Normal 9.5-13.5 [facility] Comment on above: Performed By: #### C BC ####[facility] [address] [place] [address]Dr. Marcell Coates PLT 326 103/ul Normal 150-450 [facility] Comment on above: Performed By: #### C BC ####[facility] Ztevjctpht[address] [place], [place] [address]Pd. Marcell Coates RBC 5.01 106/ul Normal 4.20-5.40 [facility] Comment on above: Performed By: #### C BC ####[facility] [address]kwznrb64[address] [place], [place] [address]Mn. Marcell Coates WBC 11.4 103/ul Critically high 4.0-11.0 [facility] Comment on above: Performed By: #### C BC ####[facility] [address]sshylw[address] [place], [place] [address]Da. Mar[address] HEAD WO CONon 11-07-2021 [...] CELINE KO Date: 2021-11-06 23:14 Normal [facility] PROF 14(COMP METB)on 022 Albumin [Mass/Vol] 4.1 g/dL Normal 3.4-5.0 [facility] Comment on above: Performed By: #### C MP ####[facility] [address]wtfq[address] [place], [place] [address]Ar. Marcell Coates Albumin/Globulin [Mass ratio] 1.1 {ratio} Normal [facility] Comment on above: Performed By: #### C MP ####[facility] [address]in[address] [place] [address]Dr. Marcell Coates ALP [Catalytic activity/Vol] 85 U/L Normal 46-116 [facility] Comment on above: Performed By: #### C MP ####[facility] [address] [place], [place] [address]Dr. Marcell Coates ALT [Catalytic activity/Vol] 21 U/L Normal 14-59 [facility] Comment on above: Performed By: #### C MP ####[facility] By[address]fn[address] [place], [place] [address]Dr. Marcell Coates Anion gap [Moles/Vol] 14.7 mmol/L Normal [facility] Comment on above: Performed By: #### C MP ####[facility] [address] [place], [place] [address]Dr. Marcell Coates AST [Catalytic activity/Vol] 18 U/L Normal 15-37 [facility] Comment on above: Performed By: #### C MP ####[facility] [address]fgsivqu[address] [place], [place] [address]Dr. Marcell Coates Bilirubin [Mass/Vol] 0.3 mg/dL Normal 0.2-1.0 [facility] Comment on above: Performed By: #### C MP ####[facility] [address]sc[address] [place], [place] [address]Dr. Marcell Jaxon Calcium [Mass/Vol] 9.3 mg/dL Normal 8.5-10.1 [facility] System Comment on above: Performed By: #### C MP ####[facility] Cvlxos[address] [place], [place] [address]Dr. Marcell Jaxon Chloride [Moles/Vol] 101 mmol/L Normal 98-107 [facility] Comment on above: Performed By: #### C MP ####[facility] It[address]ub[address] [place], [place] [address]Dr. Marcell Coates CO2 [Moles/Vol] 22.6 mmol/L Normal 21.0-32.0 [facility] Comment on above: Performed By: #### C MP ####[facility] [address] [place] [id number]. Marcell Coates Creatinine [Mass/Vol] 1.25 mg/dL Critically high 0.55-1.02 [facility] Comment on above: Performed By: #### C MP ####[facility] [address] [place] [id number]. Marcell Jaxon EGFR-AF CYMRAES 55 mL/min/1.73m2 Critically low >=60 [facility] Comment on above: Performed By: #### C MP ####[facility] [address] [place] [address]Dr. Marcell Jaxon EGFR-NON AF CYMRAES 46 mL/min/1.73m2 Critically low >=60 [facility] Comment on above: Performed By: #### C MP ####[facility] [address] [place] [address]Dr. Ansilvio Coates Globulin (S) [Mass/Vol] 3.6 g/dL Normal [facility] Comment on above: Performed By: #### C MP ####[facility] [address] [place] [address]Dr. Marcell Jaxon Glucose [Mass/Vol] 107 mg/dL Critically high 74-106 [facility] Comment on above: Performed By: #### C MP ####[facility] [address]hwdh[address] [place] [address]Dr. Marcell Coates Potassium [Moles/Vol] 3.3 mmol/L Critically low 3.5-5.1 [facility] Comment on above: Performed By: #### C MP ####[facility] Ox[address]kgons[address] [place] [address]Dr. Marcell Coates Protein [Mass/Vol] 7.7 g/dL Normal 6.4-8.2 [facility] Comment on above: Performed By: #### C MP ####[facility] [address]qitoc[address] [place] [address]Dr. Marcell Coates Sodium [Moles/Vol] 135 mmol/L Critically low 136-145 [facility] Comment on above: Performed By: #### C MP ####[facility] [address]keabs[address] [place] [address]Dr. Marcell Coates Urea nitrogen [Mass/Vol] 20.0 mg/dL Critically high 7.0-18.0 [facility] Comment on above: Performed By: #### C MP ####[facility] [address] [place] [id number]. Marcell Coates Urea nitrogen/Creatinine [Mass ratio] 16.0 mg/mg Normal [facility] Comment on above: Performed By: #### C MP ####[facility] [address]ufre[address] [place] [address]Dr. Marcell Coates CBC AUTO DIFFon 09-14-2021 BASO # 0.0 103/ul Normal 0.0-0.1 [facility] Comment on above: Performed By: #### L LENO STERN, CMP #### [facility] [address] [place] [address] Dr. Marcell Coates Basophils/100 WBC (Bld) 0.1 % Critically low 0.2-2.0 [facility] Comment on above: Performed By: #### L LENO STERN, CMP #### [facility] [address] [place] [address] Dr. Marcell Coates EO # 0.0 103/ul Normal 0.0-0.7 [facility] Comment on above: Performed By: #### L LENO STERN, CMP #### [facility] [address] [place] [address] Dr. Marcell Coates Eosinophils/100 WBC (Bld) 0.0 % Critically low 0.9-7.0 [facility] Comment on above: Performed By: #### L LENO STERN, CMP #### [facility] [address] [place] [address] Dr. Marcell Coates Erythrocyte distribution width (RBC) [Ratio] 12.8 % Normal 11.0-15.0 [facility] Comment on above: Performed By: #### L LENO STERN, CMP #### [facility] [address] [place] [address] Dr. Marcell Coates Hematocrit (Bld) [Volume fraction] 40.8 % Normal 36.0-48.0 [facility] Comment on above: Performed By: #### L LENO STERN, CMP #### [facility] [address] [place] [address] Dr. Marcell Coates Hemoglobin (Bld) [Mass/Vol] 13.2 g/dL Normal 12.0-16.0 [facility] Comment on above: Performed By: #### L LENO STERN, CMP #### [facility] [address] [place] [address] Dr. Marcell Coates IG # 0.07 10e3/ul Critically high 0.00-0.03 [facility] Comment on above: Performed By: #### L LENO STERN, CMP #### [facility] [address] [place] [address] Dr. Marcell Coates IG % 0.6 % Critically high 0.0-0.5 [facility] Comment on above: Performed By: #### L LENO STERN, CMP #### [facility] [address] [place] [address] Dr. Marcell Coates LYMPH # 1.6 103/ul Normal 1.2-3.8 [facility] Comment on above: Performed By: #### L LENO STERN, CMP #### [facility] [address] [place] [address] Dr. Marcell Coates Lymphocytes/100 WBC (Bld) 14.3 % Critically low 20.5-60.0 [facility] Comment on above: Performed By: #### L LENO STERN, CMP #### [facility] [address] [place] [address] Dr. Marcell Coates MANUAL DIFF REQ NO Normal [facility] Comment on above: Performed By: #### L LENO STERN, CMP #### [facility] [address] [place] [address] Dr. Marcell Coates MCH (RBC) [Entitic mass] 29.8 pg Normal 26.7-34.0 [facility] Comment on above: Performed By: #### L LENO STERN, CMP #### [facility] [address] [place] [address] Dr. Marcell Coates MCHC (RBC) [Mass/Vol] 32.4 g/dL Normal 29.9-35.2 [facility] Comment on above: Performed By: #### L IPA, LENO, CMP #### [facility] [address] [place] [address] Dr. Marcell Coates MCV (RBC) [Entitic vol] 92.1 fL Normal 81.0-99.0 [facility] Comment on above: Performed By: #### L IPA, LENO, CMP #### [facility] [address] [place] [address] Dr. Marcell Coates MONO # 0.3 103/ul Normal 0.3-0.8 [facility] Comment on above: Performed By: #### L IPA, LENO, CMP #### [facility] [address] [place] [address] Dr. Marcell Coates Monocytes/100 WBC (Bld) 2.4 % Normal 1.7-12.0 [facility] Comment on above: Performed By: #### L IPA, LENO, CMP #### [facility] [address] [place] [address] Dr. Marcell Coates NEUT # 9.3 103/ul Critically high 1.4-6.5 [facility] Comment on above: Performed By: #### L IPA, LENO, CMP #### [facility] [address] [place] [address] Dr. Marcell Coates Neutrophils/100 WBC (Bld) 82.6 % Critically high 43.0-75.0 [facility] Comment on above: Performed By: #### L IPA, LENO, CMP #### [facility] [address] [place] [address] Dr. Marcell Coates Platelet mean volume (Bld) [Entitic vol] 9.8 fL Normal 9.5-13.5 [facility] Comment on above: Performed By: #### L IPA, LENO, CMP #### [facility] [address] [place] [address] Dr. Marcell Cotaes PLT 292 103/ul Normal 150-450 [facility] Comment on above: Performed By: #### L LENO STERN, CMP #### [facility] [address] [place] [address] Dr. Marcell Coates RBC 4.43 106/ul Normal 4.20-5.40 [facility] Comment on above: Performed By: #### L LENO STERN, CMP #### [facility] [address] [place] [address] Dr. Marcell Coates WBC 11.3 103/ul Critically high 4.0-11.0 [facility] Comment on above: Performed By: #### L LENO STERN, CMP #### [facility] [address] [place] [address] Dr. Marcell Coates PROF CHEM 8 (BAS METB)on Anion gap [Moles/Vol] 13.8 mmol/L Normal [facility] Comment on above: Performed By: #### B MP #### [facility] [address] [place] [address] Dr. Marcell Coates Calcium [Mass/Vol] 8.9 mg/dL Normal 8.5-10.1 [facility] Comment on above: Performed By: #### B MP #### [facility] [address] [place] [address] Dr. Marcell Coates Chloride [Moles/Vol] 102 mmol/L Normal 98-107 [facility] Comment on above: Performed By: #### B MP #### [facility] [address] [place] [address] Dr. Marcell Coates CO2 [Moles/Vol] 24.3 mmol/L Normal 21.0-32.0 [facility] Comment on above: Performed By: #### B MP #### [facility] [address] [place] [address] Dr. Marcell Coates Creatinine [Mass/Vol] 1.15 mg/dL Critically high 0.55-1.02 [facility] Comment on above: Performed By: #### B MP #### [facility] [address] [place] [address] Dr. Marcell Coates EGFR-AF CYMRAES >60 Normal >=60 [facility] Comment on above: Performed By: #### B MP #### [facility] [address] [place] [address] [address] Marcell Coates EGFR-NON AF CYMRAES 50 mL/min/1.73m2 Critically low >=60 [facility] Comment on above: Performed By: #### B MP #### [facility] [address] [place] [address] [address] Marcell Coates Glucose [Mass/Vol] 317 mg/dL Critically high 74-106 [facility] Comment on above: Performed By: #### B MP #### [facility] [address] [place] [address] [address] Marcell Coates Potassium [Moles/Vol] 4.1 mmol/L Normal 3.5-5.1 [facility] Comment on above: Performed By: #### B MP #### [facility] [address] [place] [address] [address] Marcell Coates Sodium [Moles/Vol] 136 mmol/L Normal 136-145 [facility] Comment on above: Performed By: #### B MP #### [facility] [address] [place] [address] [address] Marcell Coates Urea nitrogen [Mass/Vol] 25.0 mg/dL Critically high 7.0-18.0 [facility] Comment on above: Performed By: #### B MP #### [facility] [address] [place] [address] [address] Marcell Coates Urea nitrogen/Creatinine [Mass ratio] 21.7 mg/mg Normal [facility] Comment on above: Performed By: #### B MP #### [facility] [id number] [address] Marcell Coates CBC AUTO DIFFon 09-13-2021 BASO # 0.1 103/ul Normal 0.0-0.1 [facility] Comment on above: Performed By: #### C BC ####[facility] [address] [place] [address]Dr. Marcell Coates Basophils/100 WBC (Bld) 0.8 % Normal 0.2-2.0 [facility] Comment on above: Performed By: #### C BC ####[facility] [address] [place], [place] [address]Dr. Marcell Coates EO # 0.4 103/ul Normal 0.0-0.7 [facility] Comment on above: Performed By: #### C BC ####[facility] T[address] [place], [place] [address]Dr. Marcell Coates Eosinophils/100 WBC (Bld) 4.1 % Normal 0.9-7.0 [facility] Comment on above: Performed By: #### C BC ####[facility] [address] [place], [place] [address]Dr. Marcell Coates Erythrocyte distribution width (RBC) [Ratio] 13.3 % Normal 11.0-15.0 [facility] Comment on above: Performed By: #### C BC ####[facility] [address] [place], [place] [address]Dr. Marcell Coates Hematocrit (Bld) [Volume fraction] 41.5 % Normal 36.0-48.0 [facility] Comment on above: Performed By: #### C BC ####[facility] [address] [place], [place] [address]Dr. Marcell Coates Hemoglobin (Bld) [Mass/Vol] 13.6 g/dL Normal 12.0-16.0 [facility] Comment on above: Performed By: #### C BC ####[facility] Op[address]fe[address] [place], [place] [address]Dr. Marcell Coates IG # 0.02 10e3/ul Normal 0.00-0.03 [facility] Comment on above: Performed By: #### C BC ####[facility] [address] [place], [place] [address]Dr. Marcell Coates IG % 0.2 % Normal 0.0-0.5 [facility] Comment on above: Performed By: #### C BC ####[facility] [address] [place], [place] [address]DrSherrie Coates LYMPH # 3.9 103/ul Critically high 1.2-3.8 [facility] Comment on above: Performed By: #### C BC ####[facility] [address] [place] [address]Dr. Marcell Coates Lymphocytes/100 WBC (Bld) 37.9 % Normal 20.5-60.0 [facility] Comment on above: Performed By: #### C BC ####[facility] [address]umz[address] [place] [address]DrSherrie Coates MANUAL DIFF REQ NO Normal [facility] Comment on above: Performed By: #### C BC ####[facility] [address] [place] [address]Dr. Marcell Coates MCH (RBC) [Entitic mass] 30.2 pg Normal 26.7-34.0 [facility] Comment on above: Performed By: #### C BC ####[facility] [address] [place], [place] [address]Dr. aMrcell Coates MCHC (RBC) [Mass/Vol] 32.8 g/dL Normal 29.9-35.2 [facility] Comment on above: Performed By: #### C BC ####[facility] [address] [place], [place] [address]DrSherrie Coates MCV (RBC) [Entitic vol] 92.2 fL Normal 81.0-99.0 [facility] Comment on above: Performed By: #### C BC ####[facility] [address] [place], [place] [address]Dr. Marcell Coates MONO # 0.8 103/ul Normal 0.3-0.8 [facility] Comment on above: Performed By: #### C BC ####[facility] I[address] [place], [place] [address]DrSherrie Coates Monocytes/100 WBC (Bld) 8.1 % Normal 1.7-12.0 [facility] Comment on above: Performed By: #### C BC ####[facility] [address] [place], [place] [address]DrSherrie Coates NEUT # 5.0 103/ul Normal 1.4-6.5 [facility] Comment on above: Performed By: #### C BC ####[facility] [address] [place] [address]Dr. Marcell Coates Neutrophils/100 WBC (Bld) 48.9 % Normal 43.0-75.0 [facility] Comment on above: Performed By: #### C BC ####[facility] [address]vpjewz[address] [place] [address]Dr. Marcell Coates Platelet mean volume (Bld) [Entitic vol] 9.5 fL Normal 9.5-13.5 [facility] Comment on above: Performed By: #### C BC ####[facility] [address]ra[address] [place] [address]Dr. Marcell Coates PLT 288 103/ul Normal 150-450 [facility] Comment on above: Performed By: #### C BC ####[facility] [address] [place] [address]Dr. Marcell Coates RBC 4.50 106/ul Normal 4.20-5.40 [facility] Comment on above: Performed By: #### C BC ####[facility] [address] [place] [address]Dr. Marcell Coates WBC 10.2 103/ul Normal 4.0-11.0 [facility] Comment on above: Performed By: #### C BC ####[facility] [address] [place] [address]Dr. Marcell Coates CRPon 09-13-2021 CRP 1.0 mg/dL Normal <=1.0 [facility] Comment on above: Performed By: #### L IPA, LENO, CMP #### [facility] [id number] Marcell Coates [facility]17 SARS-CoV-2 (COVID-19) RNA RUSSELL+probe Ql (Unsp spec) Not detected Normal NOT DETECTED [facility] Comment on above: Result Comment: When [...] for this test is supported by the [place] of Health and Human Service's declaration that [...] By: #### L LENO STERN, CMP #### [facility] [address] [place] [address] Dr. Marcell Coates GLYCOHEMOGLOBIN A1Con 2021 ADA RECOMMENDATION SEE BELOW Normal [facility] Comment on above: Result Comment: ADA RECOMMENDED LIMIT 4.0 - 6.0 ADA THERAPEUTIC TARGET < 7.0 ACTION SUGGESTED > 7.0 Performed By: #### B MP #### [facility] [address] [place] [address] Dr. Marcell Coates Glucose [Mass/Vol] 128 mg/dL Normal [facility] Comment on above: Performed By: #### B MP #### [facility] [address] [place] [address] Dr. Marcell Coates HbA1c (Bld) [Mass fraction] 6.1 % Normal 4.5-6.2 [facility] Comment on above: Performed By: #### B MP #### [facility] [address] [place] [address] Dr. Marcell Coates PROF CHEM 8 (BAS METB)on Anion gap [Moles/Vol] 13.5 mmol/L Normal [facility] Comment on above: Performed By: #### L LENO STERN, CMP #### [facility] [address] [place] [address] Dr. Marcell Coates Calcium [Mass/Vol] 8.6 mg/dL Normal 8.5-10.1 [facility] Comment on above: Performed By: #### L LENO STERN, CMP #### [facility] [address] [place] [address] Dr. Marcell Coates Chloride [Moles/Vol] 107 mmol/L Normal 98-107 [facility] Comment on above: Performed By: #### L LENO STERN, CMP #### [facility] [address] [place] [address] Dr. Marcell Coates CO2 [Moles/Vol] 25.5 mmol/L Normal 21.0-32.0 [facility] Comment on above: Performed By: #### L LENO STERN, CMP #### [facility] [address] [place] [address] Dr. Marcell Coates Creatinine [Mass/Vol] 1.25 mg/dL Critically high 0.55-1.02 [facility] Comment on above: Performed By: #### L LENO STERN, CMP #### [facility] [address] [place] [address] Dr. Marcell Coates EGFR-AF CYMRAES 58 mL/min/1.73m2 Critically low >=60 [facility] Comment on above: Performed By: #### L LENO STERN, CMP #### [facility] [address] [place] [address] Dr. Marcell Coates EGFR-NON AF CYMRAES 47 mL/min/1.73m2 Critically low >=60 [facility] Comment on above: Performed By: #### L LENO STERN, CMP #### [facility] [address] [place] [address] Dr. Marcell Coates Glucose [Mass/Vol] 154 mg/dL Critically high 74-106 [facility] Comment on above: Performed By: #### L LENO STERN, CMP #### [facility] [address] [place] [address] Dr. Marcell Coates Potassium [Moles/Vol] 4.0 mmol/L Normal 3.5-5.1 [facility] Comment on above: Performed By: #### L LENO STERN, CMP #### [facility] [address] [address] [address] Marcell Coates Sodium [Moles/Vol] 142 mmol/L Normal 136-145 [facility] Comment on above: Performed By: #### L LENO STERN, CMP #### [facility] [address] [address] [address] Marcell Coates Urea nitrogen [Mass/Vol] 18.0 mg/dL Normal 7.0-18.0 [facility] Comment on above: Performed By: #### L LENO STERN, CMP #### [facility] [address] [address] [address] Marcell Coates Urea nitrogen/Creatinine [Mass ratio] 14.4 mg/mg Normal [facility] Comment on above: Performed By: #### L LENO STERN, CMP #### [facility] [address] [place] [address] [address] Marcell Coates [facility] SED RATE 16 mm/hr Normal <=20 [facility] Comment on above: Performed By: #### L LENO STERN, CMP #### [facility] [address] [address] [address] Marcell Coates XR HIP RT 2 [...] by: EDDY MELGOZA Date: 2021-09-13 05:33 Normal [facility] XR LSPINE 2_3 VIEWSon 2021 XR [...] by: LIZANDRO PENDLETON Date: 2021-09-13 07:37 Normal [facility] CBC W/DIFFon 08-09-2020 BASOPHILS ABS AUTO [facility] 0.1 x10E3/uL Normal 0.0-0.2 [facility] Comment on above: Performed By: #### L AB293, LAB17 #### [facility] 1 , BASOPHILS RELATIVE AUTO [facility] 1 % Normal Not Estab. [facility] Comment on above: Performed By: #### L AB293, LAB17 #### [facility] 1 , Eosinophils (Bld) [#/Vol] 0.2 10*3/uL Normal 0.0-0.4 [facility] Comment on above: Performed By: #### L AB293, LAB17 #### [facility] 1 , Eosinophils/100 WBC (Bld) 3 % Normal Not Estab. [facility] Comment on above: Performed By: #### L AB293, LAB17 #### [facility] 1 , Erythrocyte distribution width (RBC) [Ratio] 11.9 % Normal 11.7-15.4 [facility] Comment on above: Performed By: #### L AB293, LAB17 #### [facility] 1 , Hematocrit (Bld) [Volume fraction] 43.8 % Normal 34.0-46.6 [facility] Comment on above: Performed By: #### L AB293, LAB17 #### [facility] 1 , HEMOGLOBIN [facility] 14.9 g/dL Normal 11.1-15.9 [facility] Comment on above: Performed By: #### L AB293, LAB17 #### [facility] 1 , IMMATURE GRANS (ABS) 0.0 x10E3/uL Normal 0.0-0.1 [facility] Comment on above: Performed By: #### L AB293, LAB17 #### [facility] 1 , Immature granulocytes/100 WBC (Bld) 0 % Normal Not Estab. [facility] Comment on above: Performed By: #### L AB293, LAB17 #### [facility] 1 , Lymphocytes (Bld) [#/Vol] 2.4 10*3/uL Normal 0.7-3.1 [facility] Comment on above: Performed By: #### L AB293, LAB17 #### [facility] 1 , Lymphocytes/100 WBC (Bld) 26 % Normal Not Estab. [facility] Comment on above: Performed By: #### L AB293, LAB17 #### [facility] 1 , MCH (RBC) [Entitic mass] 31.2 pg Normal 26.6-33.0 [facility] Comment on above: Performed By: #### L AB293, LAB17 #### [facility] 1 , MCHC (RBC) [Mass/Vol] 34.0 g/dL Normal 31.5-35.7 [facility] Comment on above: Performed By: #### L AB293, LAB17 #### [facility] 1 , MCV [facility] 92 fL Normal 79-97 [facility] Comment on above: Performed By: #### L AB293, LAB17 #### [facility] 1 , Monocytes (Bld) [#/Vol] 0.5 10*3/uL Normal 0.1-0.9 [facility] Comment on above: Performed By: #### L AB293, LAB17 #### [facility] 1 , Monocytes/100 WBC (Bld) 6 % Normal Not Estab. [facility] Comment on above: Performed By: #### L AB293, LAB17 #### [facility] 1 , NEUTROPHIL ABS AUTO [facility] 6.1 x10E3/uL Normal 1.4-7.0 [facility] Comment on above: Performed By: #### L AB293, LAB17 #### [facility] 1 , NEUTROPHILS RELATIVE AUTO [facility] 64 % Normal Not Estab. [facility] Comment on above: Performed By: #### L AB293, LAB17 #### [facility] 1 , PLATELET COUNT [facility] 336 x10E3/uL Normal 150-450 [facility] Comment on above: Performed By: #### L AB293, LAB17 #### [facility] 1 , RED BLOOD CELL COUNT [facility] 4.77 x10E6/uL Normal 3.77-5.28 [facility] Comment on above: Performed By: #### L AB293, LAB17 #### [facility] 1 , WBC (Bld) [#/Vol] 9.4 10*3/uL Normal 3.4-10.8 [facility] Comment on above: Performed By: #### L AB293, LAB17 #### [facility] 1 , COMPREHENSIVE METABOLIC PANE Bulmaro 08-09-2020 Albumin [Mass/Vol] 4.8 g/dL Normal 3.8-4.8 [facility] Comment on above: Order Comment: Relea se to patient->Immediate Performed By: #### L AB293, LAB17 #### [facility] 1 , Albumin/Globulin [Mass ratio] 1.7 {ratio} Normal 1.2-2.2 [facility] Comment on above: Order Comment: Relea se to patient->Immediate Performed By: #### L AB293, LAB17 #### [facility] 1 , ALP [Catalytic activity/Vol] 74 U/L Normal 48-121 [facility] Comment on above: Order Comment: Relea se to patient->Immediate Result Comment: Pl ease note reference interval change Performed By: #### L AB293, LAB17 #### [facility] 1 , ALT [Catalytic activity/Vol] 13 U/L Normal 0-32 [facility] Comment on above: Order Comment: Relea se to patient->Immediate Result Comment: Perf ormed At: [address] [facility] [address] [id number] Aletha Menendez PhD [id number] Performed By: #### L AB293, LAB17 #### [facility] 1 , AST [Catalytic activity/Vol] 17 U/L Normal 0-40 [facility] Comment on above: Order Comment: Relea se to patient->Immediate Performed By: #### L AB293, LAB17 #### [facility] 1 , Bilirubin [Mass/Vol] 0.2 mg/dL Normal 0.0-1.2 [facility] Comment on above: Order Comment: Relea se to patient->Immediate Performed By: #### L AB293, LAB17 #### [facility] 1 , Calcium [Mass/Vol] 9.9 mg/dL Normal 8.7-10.2 [facility] Comment on above: Order Comment: Relea se to patient->Immediate Performed By: #### L AB293, LAB17 #### [facility] 1 , Chloride [Moles/Vol] 102 mmol/L Normal 96-106 [facility] Comment on above: Order Comment: Relea se to patient->Immediate Performed By: #### L AB293, LAB17 #### [facility] 1 , CO2 [Moles/Vol] 22 mmol/L Normal 20-29 The [facility] Comment on above: Order Comment: Relea se to patient->Immediate Performed By: #### L [id number], [id number] #### [facility] , Creatinine [Mass/Vol] 0.85 mg/dL Normal 0.57-1.00 [facility] Comment on above: Order Comment: Relea se to patient->Immediate Performed By: #### L [id number], [id number] #### [facility] , EGFR IF NONAFRICN AM 82 mL/min/1.73 Normal >59 [facility] Comment on above: Order Comment: Relea se to patient->Immediate Performed By: #### L [id number], LAB17 #### [facility] , GFR/1.73 sq M.predicted among blacks MDRD (S/P/Bld) [Vol rate/Area] 94 mL/min/{1.73_m2} Normal >59 [facility] Comment on above: Order Comment: Relea se to patient->Immediate Result Comment: [facility] currently reports eGFR in compliance with the current recommendations of the National Kidney Foundation. [facility] will update reporting as new guidelines are published from the NKF-ASN Task force. Performed By: #### L AB293, LAB17 #### [facility] , Globulin (S) [Mass/Vol] 2.9 g/dL Normal 1.5-4.5 [facility] Comment on above: Order Comment: Relea se to patient->Immediate Performed By: #### L AB293, LAB17 #### [facility] , Glucose [Mass/Vol] 91 mg/dL Normal 65-99 [facility] Comment on above: Order Comment: Relea se to patient->Immediate Performed By: #### L AB293, LAB17 #### [facility] , Potassium [Moles/Vol] 4.2 mmol/L Normal 3.5-5.2 [facility] Comment on above: Order Comment: Relea se to patient->Immediate Performed By: #### L AB293, LAB17 #### [facility] , Protein [Mass/Vol] 7.7 g/dL Normal 6.0-8.5 [facility] Comment on above: Order Comment: Relea se to patient->Immediate Performed By: #### L AB293, LAB17 #### [facility] , Sodium [Moles/Vol] 139 mmol/L Normal 134-144 [facility] Comment on above: Order Comment: Relea se to patient->Immediate Performed By: #### L AB293, LAB17 #### [facility] , Urea nitrogen [Mass/Vol] 14 mg/dL Normal 6-24 [facility] Comment on above: Order Comment: Relea se to patient->Immediate Performed By: #### L AB293, LAB17 #### [facility] , Urea nitrogen/Creatinine [Mass ratio] 16 mg/mg Normal 9-23 [facility] Comment on above: Order Comment: Relea se to patient->Immediate Performed By: #### L AB293, LAB17 #### [facility] , Encounters Encounter Date Encounter Type Care Provider Facility Start: 05-26-2023 End: 05-27-2023 ambulatory [facility] Start: 05-16-2023 End: 06-16-2023 ambulatory [facility] Start: 05-14-2023 End: 05-15-2023 ambulatory DARNELLID M THAO [facility] Start: 05-08-2023 End: 05-09-2023 ambulatory TYRON GRANDA [facility] Start: 05-07-2023 Refill Yris Ba MD Work Phone: [facility] Start: 05-01-2023 End: 05-16-2023 Orders Only Yris Ba MD Work Phone: [facility] Comment on above: Encounter for screen ing mammogram for malignant neoplasm of breast (Primary Dx) Start: 04-03-2023 Refill Hiro Kaba RN [facility] Start: 03-06-2023 Refill Yris Ba MD Work Phone: [facility] Comment on above: Primary hypertension ; Combined systolic and diastolic congestive heart failure, unspecified HF chronicity ([facility]); Acute combined systolic and diastolic congestive heart failure ([facility]); Cardiomegaly Start: 07-29-2022 End: 07-29-[address] ALISHA GALVEZ . Facility:[facility] Start: 07-15-2022 End: 07-15-2022 ambulatory ROBERT PORTILLO Facility:[facility] Start: 07-10-2022 ambulatory EDILSON~[id number] 9 [facility] Start: 06-18-2022 End: 06-19-[address] ALISHA GALVEZ . Facility:[facility] Start: 06-14-2022 [id number] [facility] Start: 06-14-2022 End: 06-14-[address] ALISHA GALVEZ . Facility:[facility] Start: 06-09-2022 End: 06-09-2022 ambulatory PENNY MASON . Facility:[facility] Start: 05-14-2022 [facility][id number] [facility] Start: 05-11-2022 End: 05-11-[address] ISACC SABA Facility:[facility] Start: 04-22-2022 End: 04-22-[address] YOLIS ARDON . Facility:[facility] Start: 04-03-2022 End: 04-03-2022 ambulatory ROBERT PORTILLO Facility:[facility] Start: 01-22-2022 End: 01-22-2022 ambulatory ALVA DIETZ Facility:[facility] Start: 12-22-2021 End: 12-22-2021 ambulatory ALVA DIETZ Facility:[facility] Start: 11-06-2021 End: 11-07-2021 ambulatory ALVA DIETZ Facility:[facility] Start: 09-13-2021 End: 09-14-2021 ambulatory ALVA DIETZ Facility:[facility] Procedures Date Procedure Procedure Detail Performing Clinician Start: 09-14-2022 Adult depression scr eening assessment Yris Ba MD Work Phone: Start: 05-09-2022 Mammography Yris As if Work Phone: Plan of Treatment Date Care Activity Detail Author Start: 05-09-2024 Screening for malign ant neoplasm of breast Mammogram [facility] Start: 02-02-2024 Tobacco Counseling Tobacco Counselin g [facility] Start: 11-29-2023 Adult BMI Screening Adult BMI Screen ing [facility] Start: 11-29-2023 Tobacco Screening Tobacco Screening [facility] Start: 09-15-2023 Depression Screening Depression Scre ening [facility] Start: 06-16-2023 End: 06-16-2023 Patient encounter procedure 06/16/2023 3:00 PM EDT Office Visit [facility] [address] [place] [address] [place] [address] [place] [address] [place] [address] [place] [id number] [facility] Start: 05-14-2023 End: 05-14-2023 Patient encounter procedure 05/14/2023 3:15 PM EST Appointment [facility] - [facility] DEXA [address] [place] [id number] [facility] DEXA Start: 05-12-2023 End: 05-12-2023 Patient encounter procedure 05/12/2023 2:45 PM EST Appointment [facility] [address] [place] [address] Arrived [facility] Comment on above: Arrived Start: 05-08-2023 Subsequent hospital visit by physician [facility] Start: 05-01-2023 End: 05-01-2024 DBT Breast - bilateral screening Mammography screening bilateral with CAD Imaging Routine Encounter for screening mammogram for malignant neoplasm of breast Expected: 05/01/2023, Expires: 05/01/2024 [facility] Work Phone: Comment on above: Expected: 05/01/2023 , Expires: 05/01/2024 Start: 03-31-2023 End: 03-31-2023 Patient encounter procedure 03/31/2023 11:00 AM EST Office Visit [facility] [address] [place] [id number] [place], [place] [address] [address] [facility] Start: 03-24-2023 End: 03-24-2023 Patient encounter procedure [facility] Start: 11-15-2022 COVID-19 Vaccine ( season) COVID-19 Vaccine ( season) [facility] Start: 11-15-2022 Influenza vaccination Influenza Vacc ine [facility] Start: 05-26-1991 Adult BMI Follow Up Plan Adult BMI Follow Up Plan [facility] Start: 1984 DTaP,Tdap and Td Vaccines (5 - Tdap) DTaP,Tdap and Td Vaccines (5 - Tdap) [facility] Immunizations Immunization Date Immunization Notes Care Provider Fa cility 05-15-2021 influenza, seasonal, injectable Yris Ba MD Work Phone: [facility] 05-15-2021 influenza virus vaccine, unspecified formulation Yris Ba MD Work Phone: [facility] 01-02-2021 Influenza, injectabl e, [place] Canine Kidney, quadrivalent with preservative Yris Ba MD Work Phone: [facility] 11-14-2020 COVID-19, mRNA, LNP- S, PF, 30mcg/0.3mL Dose Yris Ba MD Work Phone: [facility] 11-26-2018 influenza, injectabl e, quadrivalent, preservative free Yris Ba MD Work Phone: [facility] 12-03-2007 hepatitis B vaccine, adult dosage Yris Ba MD Work Phone: [facility] 08-27-2007 hepatitis B vaccine, adult dosage Yris Ba MD Work Phone: [facility] 07-27-2007 hepatitis B vaccine, adult dosage Yris Ba MD Work Phone: [facility] 04-16-1982 measles, mumps and rubella virus vaccine Yris Ba MD Work Phone: [facility] 10-31-1978 diphtheria, tetanus toxoids and pertussis vaccine Yris Ba MD Work Phone: [facility] 10-31-1978 poliovirus vaccine, unspecified formulation Yris Ba MD Work Phone: [facility] 12-01-1976 poliovirus vaccine, unspecified formulation Yris Ba MD Work Phone: [facility] 07-05-1975 diphtheria, tetanus toxoids and pertussis vaccine Yris Ba MD Work Phone: [facility] 07-05-1975 poliovirus vaccine, unspecified formulation Yris Ba MD Work Phone: [facility] 09-29-1974 diphtheria, tetanus toxoids and pertussis vaccine Yris Ba MD Work Phone: [facility] 09-29-1974 measles, mumps and rubella virus vaccine Yris Ba MD Work Phone: [facility] 09-29-1974 poliovirus vaccine, unspecified formulation Yris Ba MD Work Phone: [facility] 08-03-1974 diphtheria, tetanus toxoids and pertussis vaccine Yris Ba MD Work Phone: [facility] 08-03-1974 poliovirus vaccine, unspecified formulation Yris Ba MD Work Phone: [facility] Payers Date Payer Category Payer Medicaid [id number] 2022 Medicaid [place] [id number] 2022-Present [address] [place] [address] [id number] 1973 Unknown [id number] [id number] 1973 Unknown [id number] 2.16.840.1.699174.3.579.2.5 1973 Unknown [id number] 2.16.840.1.642307.3.579.2.5 93 1973 Unknown [id number] 2.16.840.1.280355.3.579.2.5 1973 Unknown [id number] 2.16.840.1.010537.3.579.2.5 1973 Unknown [id number] 2.16.840.1.261186.3.579.2.5 1973 Unknown [id number] 2.16.840.1.540315.3.579.2.5 1973 Unknown [id number] 2.16.840.1.473767.3.579.2.5 1973 Unknown [id number] 2.16.840.1.689305.3.579.2.5 93 1973 Unknown [id number] 2.16.840.1.196748.3.579.2.5 93 1973 Unknown [id number] 2.16.840.1.562834.3.579.2.5 93 1973 Unknown [id number] 2.16.840.1.740181.3.579.2.5 93 1973 Unknown [id number] 2.16.840.1.267062.3.579.2.1 286 1973 Unknown [id number] 2.16.840.1.485515.3.579.2.1 286 1973 Unknown [id number] 2.16.840.1.342724.3.579.2.1 286 1973 Unknown [id number] 2.16.840.1.028300.3.579.2.1 286 1973 Unknown [id number] 2.16.840.1.125180.3.579.2.1 286 1973 Unknown [id number] 2.16.840.1.055107.3.579.2.1 286 1959 Unknown [id number] Private Health Insurance [id number] Social History Date Type Detail Facility Start: 08-22-2022 Tobacco smoking stat [facility] Smokes tobacco daily [facility] History of tobacco use Cigarette Smoker [facility] Start: 08-22-2022 End: 11-28-2022 Cigarettes smoked current (pack per day) - Reported 0.5 [facility] Start: 08-22-2022 Tobacco use and exposure Smoke less tobacco non-user [facility] Start: 11-28-2022 Alcohol intake Lifetime non-d christina (finding) [facility] Start: 09-14-2022 End: 11-28-2022 Alcohol Use Disorder Identification Test - Consumption [AUDIT-C] [facility] How often to you hav e a drink containing alcohol? Never [facility] How many standard dr inks containing alcohol do you have on a typical day? Patient does not drink [facility] Start: 1975 Sex Assigned At Not on file [facility] [employer] [facility] [employer] Goals Date Patient Goal Desired Activity /State [...] were not included. documented in this encounter [facility] 04-03-2023 Telephone encount er Note Images from the original note were not included. [facility] 08-09-2020 Note Encounter Department : [facility] Progress Notes by REMBERTO Mcclellan at 08/09/2020 3:00 PM Author: REMBERTO McclellanService: -Author Type: Nurse Practitioner Filed: 08/09/2020 4:11 PMEncounter Date: 08/09/2020tatus: Signed Shirt Creaser: REMBERTO Mcclellan (Nurse Practitioner) Chinmay Knight [address] [facility] [address] : 45 y.o.: 1975Phone: (home) Encounter Date: 08/09/2020 Assessment Assessment and Plan: ICD-10-CM 1.Essential hypertension W21rxiduvekjy tartrate 37.5 mg Tab CBC W/DIFF Comprehensive Metabolic Panel Diagnoses and all orders for this visit: Essential hypertension (Primary) (Chronic) - metoprolol tartrate 37.5 mg Tab Dispense: 30 tablet; Refill: 6 - CBC W/DIFF - Comprehensive Metabolic Panel Will increase patient metoprolol to 37.5mg and have patient call in 2 week with an update. Will draw some labs in the office today. [facility] Evaluation as of 08/09/2020: -Determined Barrier: Inadequate [...] at visit Current Outpatient Medications Ordered in [facility] MedicationSigDispenseRefill -hydroCHLOROthiazide (HYDRODIURIL) 25 mg tabletTake 25 mg by mouth 2 times a day. -lisinopriL (ZESTRIL) 40 mg tabletTake 40 mg by mouth daily. -metoprolol tartrate 37.5 mg TabTake 37.5 mg by mouth 2 times a day.30 tablet6 -topiramate (TOPAMAX) 25 mg tabletTake 50 mg by mouth daily. No current [facility]-ordered facility-administered medications on file. No Known [...] necessary. Electronically Signed by: Landy SR 08/09/2020 [facility] 08-09-2020 Note Encounter Department : [facility] Progress Notes by REMBERTO Mcclellan at 08/09/2020 3:00 PM Author: REMBERTO McclellanService: -Author Type: Nurse Practitioner Filed: 08/10/2020 9:48 AMEncounter Date: 08/09/2020tatus: Signed Shirt Creaser: REMBERTO Mcclellan (Nurse Practitioner) Please inform patient that her labs are all normal. Please inform her that her kidney function is back to normal [facility] 08-09-2020 Note Encounter Department : [facility] Progress Notes by Maci Holden CMA at 08/09/2020 3:00 PM Author: Tari Zavala: -Author Type: City Bailiff Filed: 08/10/2020 12:44 PMEncounter Date: 08/09/2020tatus: Signed Shirt Creaser: Maci Holden CMA (City Bailiff) Left VM for patient with results and advised to return call with questions or concerns. [facility] Evaluation note Diagnosis Primary hypertension Unspecified essential hypertension Combined systolic and diastolic congestive heart failure, unspecified HF chronicity ([facility]) Acute combined systolic and diastolic congestive heart failure ([facility]) Cardiomegaly [facility] Encounter for screening mammogram for malignant neoplasm of breast- Primary documented in this [facility] filedocumented in this encounter [facility] on filedocumented in this encounter [facility]Not on filedocumented in this encounter [facility] on filedocumented in this [facility] Summary Purpose Family History No Family [...] section and content) DATE CREATED AUTHOR 08/12/2020 [facility] DATE CREATED AUTHOR AUTHOR'S ORGANIZ ATION 07/11/2022 [facility] DATE CREATED AUTHOR AUTHOR'S ORGANIZ ATION 07/30/2022 [facility] DATE CREATED AUTHOR AUTHOR'S ORGANIZ ATION 06/16/2023 [facility] Reason for Visit (unrecogniz ed section and content) Reason Comments Med Refill Reason Onset Date Comments Med Refill 04/03/2023 Care Teams (unrecognized sec tion and content) Speech Assistant Relationship Specialty Start Date End Date Yris Ba MD [address] [place] [address] PCP - General Internal Medicine 09/12/22 Speech Assistant Relationship Specialty Start Date End Date Yris Ba MD [address] [place] [address] PCP - General Internal Medicine 09/12/22 Speech Assistant Relationship Specialty Start Date End Date Yris Ba MD [address] [place] [address] PCP - General Internal Medicine 09/12/22 FOR [...] BE BASED ON THE PRIMARY CLINICAL RECORDS. [facility]. provides no warranty or guarantee of the accuracy or completeness of information in this document.
--- NOTE | 2023-06-16 14:58 | P.CN_ITS ---
Consult Note: HPI Data of Consult Patient: new to practice Consult date: 06/16/23 Requesting Physician: Kendrick Aguilar MD Primary Care Provider: Non-Staff Physician, Consult Narrative Reason for consult: low back, right leg pain Narrative: 48yof who presents for evaluation. worsening low back pain with radiation into right lower extremity. ongoing for months, but continuing to worsen. imaging shows disc bulging at multiple levels with stenosis at l3-4, l4-5, l5-s1. has engaged in >6 weeks of provider directed home exercise program, with no benefit. uses nsaids, without benefit. has tried cbd gummies, with some benefit. denies adverse med side effects. cc:: CC: Kendrick Aguilar MD Review of Systems ROS Status of ROS 10 or more systems reviewed and unremark able except as noted in history and below PFSH PFSH Social History Smoking status: Current every day smoker Meds Home Medications and Allergies Home Medications ?Medication ?Instructions ?Recorded ?Confirmed ?Type aspirin 81 mg tablet,delayed 81 mg 03/13/23 History release (Lynn Low Dose Aspirin) bumetanide 0.5 mg tablet mg 03/13/23 History empagliflozin 10 mg tablet mg 03/13/23 History (Jardiance) famotidine 20 mg tablet mg 03/13/23 History metoprolol succinate 100 mg mg PO 03/13/23 History tablet,extended release 24 hr omeprazole 40 mg capsule,delayed mg 03/13/23 History release rosuvastatin 10 mg tablet mg 03/13/23 History spironolactone 25 mg tablet mg 03/13/23 History apixaban 5 mg tablet (Eliquis) mg 06/02/23 History isosorbide mononitrate 30 mg mg PO 06/02/23 History tablet,extended release 24 hr tizanidine 4 mg tablet mg 06/02/23 History Allergies Allergy/AdvReac Type Severity Reaction Status Date / Time codeine AdvReac Mild Nausea Verified 06/02/23 02:59 keflex AdvReac Intermediate Hallucinati Uncoded 06/02/23 02:59 ng Exam Narrative Exam Narrative: Psych-alert and oriented x 3. Attentive and appropriate, constitutionally normal, displays normal mood and affect per situation. There are no obvious deficits in memory, reasoning, or intellect.? Skin-no obvious rashes, bruising, erythema noted to the patient's area of pain.? Extremities- extremities are warm with minimal edema and palpable pulses. Lumbar-tenderness to palpation noted in the lumbar spine and paraspinal musculature. Pain is elicited with flexion, extension, and lateral rotation of the lumbar spine. Range of motion is diminished with these motions. Facet loading maneuvers are positive.? Strength-noted to be unremarkable with the exception of decreased strength rated at 4 out of 5 in right quadriceps femoris, anterior tibialis. Sensory-no notable sensory deficits in the bilateral lower extremities to touch or pinprick in all dermatomal distributions with the exception to decreased sensation to the right L3, 4, 5 dermatomal distribution Coordination remains intact.? Gait remains non-antalgic Assessment and Plan Assessment and Plan (1) Lumbar stenosis with neurogenic claudication: Plan 48yof who presents for evaluation. worsening low back and right leg pain. failed conservative measures, as noted. imaging reviewed, as noted. given symptoms and imaging, prudent to attempt right l3-4, l4-5 tfesi under fluoroscopic guidance. will do with ivcs due to extreme anxiety. she is in agreement. meds reviewed. will have her trial lyrica 50mg tid. follow up after procedure.
== END 2023-06-16 14:03 | disposition home or self-care (01) ==
LOC: PM 14:03
PROVIDERS: Visit Provider Anesthesiology
DX: M48.062 Spinal stenosis, lumbar region with neurogenic claudication (principal)
CPT/HCPCS: G0463

== ENCOUNTER 2023-07-07 07:28 | Day surgery (SDC) | payer MEDICAID, SELFPAY ==
--- OUTSIDE RECORDS SUMMARY | 2023-07-07 07:31 | XMS_ITS | CCD ---
Author Organization [facility] Care Team Providers Care Door Cutter Name Role Phone PIERSON EDILSON, EDILSON~[phone] PIERSON Attending Unavailable PIERSON EDILSON, EDILSON~[phone] PIERSON Primary Care Unavailable PIERSON EDILSON, EDILSON~[phone] PIERSON Attending Unavailable PIERSON EDILSON, EDILSON~[phone] PIERSON Primary Care Unavailable PIERSON EDILSON, EDILSON~[phone] PIERSON Primary Care Unavailable PIERSON EDILSON, EDILSON~[phone] PIERSON Attending Unavailable MIRELA, ALVA Primary Care [...] Unavailable WANDY, DR ISACC Gao Admitting Unavailable MIRELA, ALVA Primary Care Unavailable DR ISACC SABA Consulting Unavailable LIOR JIANG Consulting Unavailable MIRELA, ALVA Primary Care Unavailable DR SHARRI BERNARDO Attending Unavailable [place], DR SHARRI Briggs Admitting Unavailable DR LIZANDRO PENDLETON V Consulting Unavailable [place], DR SHARRI Briggs Consulting Unavailable LINDSEY, ROBERT Consulting Unavailable EDDY MELGOZA Consulting Unavailable MARKER ., DR BRITO Admitting Unavailable MARKER ., DR BRITO Attending Unavailable ZIISSAC, DR JT Gao Consulting Unavailable MIRELA, ALVA [...] Unavailable Mejia Josi CLAROS Primary Care Provider [phone] MEJIA, JAVANHAMID M Referring Unavailable MEJIA, MUHAMID M Primary Care Unavailable SHADYJAMAR Referring Unavailable MEJIA, MUHAMID M Primary Care Unavailable SHADYJAMAR Attending Unavailable SHADY, JAMRA M Referring Unavailable MEJIA, MUHAMID M Primary Care Unavailable SHADY, JAMAR M Referring Unavailable MEJIA, MUHAMID M Primary Care Unavailable TYRON GRANDA Referring Unavailable MEJIA, MUHAMID M Primary Care Unavailable TYRON GRANDA Referring Unavailable MEJIA, MUHAMID M Primary Care Unavailable Lauren CLAROS, Kendrick Reaves Attending Unavailable Allergies Allergy Classification Reported Allergen(s) Allergy Type Date of Onset Reaction(s) Facility (7 sources) Codeine; Translations: [CODEINE] Drug Allergy 1 Anaphylaxis [facility] Repository (1 source) Cephalexin Drug Allergy 2 [facility] Repository (5 sources) Cephalexin; Translations: [CEPHALEXIN] Drug Allergy 2 [facility] Medications Current Medications Medication Drug Class(es) Dates Sig (Normalized) Sig (Original) [id number] 200 actuat albuterol 0.09 mg/actuat metered dose [...] vascular disease; Translations: [Atherosclerotic heart disease of [place] coronary artery without angina pectoris] Onset: 09-12-2022 [...] 09-18-2021 Chronic Other aftercare (1 source) Other intermediate manager (current) drug therapy; Translations: [OTH PENITENTIARY CURRENT DRUG THERAPY] Onset: 07-16-2022 Episodic Other [...] Occlusion of artery; 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[place] arteries of extremities, other extremity] Onset: 09-30-2022 [...] Maciel MD on 05/27/2023 10:23 PM Normal [facility] 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 05-15-2023 MAMM SCREENING BILATERAL W CAD MAMM [...] AM 1 a MAMM 1 YR Normal [facility] AMYLASEon 07-15-2022 Amylase [Catalytic activity/Vol] 23 U/L Critically low 25-115 [facility] Comment on above: Performed By: #### C MADM, LENO, LIPA, CMP ####[facility] [place] [address] [place] [address]DrSherrie Coates BNPon 07-15-2022 Natriuretic peptide B (Bld) [Mass/Vol] 24391.0 pg/mL Critically high <=900.0 [facility] Comment on above: Performed By: #### B MEDICAL ASSISTANT FLOAT ####[facility] [address] [place] [id number]. Marcell Coates CARDIAC ISACC 3-6on 3 CK [Catalytic activity/Vol] 72 U/L Normal 26-192 [facility] [place] Comment on above: Performed By: #### B MP #### [facility] Laboratory [address] [address] [address] Marcell Coates CK.MB [Mass/Vol] 1.21 ng/mL Normal <=3.60 [facility] Comment on above: Performed By: #### B MP #### [facility] Laboratory [address] [address] [address] Marcell Coates HSTROP 47.6 pg/mL Normal 4.0-51.3 [facility] Comment on above: Result Comment: CUT- OFF POINTS HAVE BEEN ESTABLISHED BASED ON THE FOURTH UNIVERSAL DEFINITIONS OF MYOCARDIAL INFARCTION. THE UPPER REFERENCE LIMIT (URL) OF TROPONIN, DEFINED THE 99TH PERCENTILE OF cTnI DISTRIBUTION IN A REFERENCE POPULATION, HAS BEEN CONFIRMED THE DECISION THRESHOLD FOR [place] DIAGNOSIS. Performed By: #### B MP #### [facility] [place] Laboratory [address] [address] [address] Marcell Coates CARDIAC ISACC ADMITon 023 CK [Catalytic activity/Vol] 64 U/L Normal 26-192 [facility] Comment on above: Performed By: #### C MADM, LENO, LIPA, CMP ####[facility] [address] [place] [address]Dr. Marcell Coates CK.MB [Mass/Vol] 1.33 ng/mL Normal <=3.60 [facility] Comment on above: Performed By: #### C MADM, LENO, LIPA, CMP ####[facility] [address] [place] [address]Dr. Marcell Coates HSTROP 47.5 pg/mL Normal 4.0-51.3 [facility] [place] Comment on above: Result Comment: CUT- OFF POINTS HAVE BEEN ESTABLISHED BASED ON THE FOURTH UNIVERSAL DEFINITIONS OF MYOCARDIAL INFARCTION. THE UPPER REFERENCE LIMIT (URL) OF TROPONIN, DEFINED THE 99TH PERCENTILE OF cTnI DISTRIBUTION IN A REFERENCE POPULATION, HAS BEEN CONFIRMED THE DECISION THRESHOLD FOR [place] DIAGNOSIS. Performed By: #### C MADM, LENO, LIPA, CMP ####[facility] [address] [place], [place] [address]CqDr. Marcell Coates CHASITY 44 ng/mL Normal 9-82 [facility] [place] Comment on above: Performed By: #### C LENO HILLMAN LIPA, CMP ####[facility] [address] [place], [place] [address]RyDr. Marcell Coates CBC AUTO DIFFon 07-15-2022 BASO # 0.1 103/ul Normal 0.0-0.1 [facility] Comment on above: Performed By: #### B MP #### [facility] Laboratory [address] [address] [address] Marcell Coates Basophils/100 WBC (Bld) 1.0 % Normal 0.2-2.0 [facility] Comment on above: Performed By: #### B MP #### [facility] Laboratory [address] [address] [address] Marcell Coates EO # 0.4 103/ul Normal 0.0-0.7 [facility] Comment on above: Performed By: #### B MP #### [facility] Laboratory [address] [address] [address] Marcell Coates Eosinophils/100 WBC (Bld) 3.0 % Normal 0.9-7.0 [facility] Comment on above: Performed By: #### B MP #### [facility] Laboratory [address] [address] [address] Marcell Coates Erythrocyte distribution width (RBC) [Ratio] 14.2 % Normal 11.0-15.0 [facility] [place] Comment on above: Performed By: #### B MP #### [facility] Laboratory [address] [address] [address] Marcell Coates Hematocrit (Bld) [Volume fraction] 48.1 % Critically high 36.0-48.0 [facility] Comment on above: Performed By: #### B MP #### [facility] Laboratory [address] [address] [address] Marcell Coates Hemoglobin (Bld) [Mass/Vol] 15.7 g/dL Normal 12.0-16.0 [facility] [place] Comment on above: Performed By: #### B MP #### [facility] Laboratory [address] [place] [address] Dr. Marcell Coates IG # 0.03 10e3/ul Normal 0.00-0.03 [facility] Comment on above: Performed By: #### B MP #### [facility] Laboratory [address] [place] [address] Dr. Marcell Coates IG % 0.2 % Normal 0.0-0.5 [facility] Comment on above: Performed By: #### B MP #### [facility] Laboratory [address] [place] [address] Dr. Marcell Coates LYMPH # 3.8 103/ul Normal 1.2-3.8 [facility] Comment on above: Performed By: #### B MP #### [facility] Laboratory [address] [place] [address] Dr. Marcell Coates Lymphocytes/100 WBC (Bld) 30.5 % Normal 20.5-60.0 [facility] Comment on above: Performed By: #### B MP #### [facility] Laboratory [address] [place] [address] Dr. Marcell Coates MANUAL DIFF REQ NO Normal [facility] Comment on above: Performed By: #### B MP #### [facility] Laboratory [address] [place] [address] Dr. Marcell Coates MCH (RBC) [Entitic mass] 29.1 pg Normal 26.7-34.0 [facility] Comment on above: Performed By: #### B MP #### [facility] Laboratory [address] [place] [address] Dr. Marcell Coates MCHC (RBC) [Mass/Vol] 32.6 g/dL Normal 29.9-35.2 [facility] Comment on above: Performed By: #### B MP #### [facility] Laboratory [address] [place] [address] Dr. Marcell Coates MCV (RBC) [Entitic vol] 89.2 fL Normal 81.0-99.0 [facility] Comment on above: Performed By: #### B MP #### [facility] Laboratory [address] [address] [address] Marcell Coates MONO # 0.9 103/ul Critically high 0.3-0.8 The [facility] Comment on above: Performed By: #### B MP #### [facility] Laboratory [address] [address] [address] Marcell Coates Monocytes/100 WBC (Bld) 6.9 % Normal 1.7-12.0 [facility] Comment on above: Performed By: #### B MP #### [facility] Laboratory [address] [address] [address] Marcell Coates NEUT # 7.3 103/ul Critically high 1.4-6.5 [facility] Comment on above: Performed By: #### B MP #### [facility] Laboratory [address] [place] [address] Dr. Marcell Coates Neutrophils/100 WBC (Bld) 58.4 % Normal 43.0-75.0 [facility] Comment on above: Performed By: #### B MP #### [facility] Laboratory [address] [place] [address] Dr. Marcell Coates Platelet mean volume (Bld) [Entitic vol] 9.9 fL Normal 9.5-13.5 [facility] Comment on above: Performed By: #### B MP #### [facility] Laboratory [address] [place] [address] Dr. Marcell Coates PLT 288 103/ul Normal 150-450 [facility] Comment on above: Performed By: #### B MP #### [facility] Laboratory [address] [place] [address] Dr. Marcell Coates RBC 5.39 106/ul Normal 4.20-5.40 [facility] Comment on above: Performed By: #### B MP #### [facility] Laboratory [address] [place] [address] Dr. Marcell Coates WBC 12.5 103/ul Critically high 4.0-11.0 [facility] Comment on above: Performed By: #### B MP #### [facility] Laboratory [address] [place] [address] Dr. Marcell Coates CTA CHEST WO W [...] TRINITY ELLIS Date: 2022-07-15 02:50 Normal [facility] LACTATE/LACTIC ACIDon 2022 Lactate [Moles/Vol] 1.2 mmol/L Normal 0.4-2.0 [facility] Comment on above: Performed By: #### L IPA, LENO, CMP #### [facility] Laboratory [address] [address] [address] Marcell Coates LIPASEon 07-15-2022 Lipase [Catalytic activity/Vol] 116.0 U/L Normal 73.0-393.0 [facility] Comment on above: Performed By: #### B MP #### [facility] Laboratory [address] [place] [address] Dr. Marcell Coates PROF 14(COMP METB)on 023 Albumin [Mass/Vol] 3.5 g/dL Normal 3.4-5.0 [facility] Comment on above: Performed By: #### C MADM, LENO, LIPA, CMP ####[facility] [address] [address]Dr. Marcell Coates Albumin/Globulin [Mass ratio] 1.1 {ratio} Normal [facility] Comment on above: Performed By: #### C MADM, LENO, LIPA, CMP ####[facility] [address] [place] [address]Dr. Marcell Coates ALP [Catalytic activity/Vol] 106 U/L Normal 46-116 [facility] [place] Comment on above: Performed By: #### C MADM, LENO, LIPA, CMP ####[facility] [address] [place], [place] [address]Dr. Marcell Coates ALT [Catalytic activity/Vol] 31 U/L Normal 14-59 [facility] Comment on above: Performed By: #### C MADM, LENO, LIPA, CMP ####[facility] [address] [place], [place] [address]Dr. Marcell Coates Anion gap [Moles/Vol] 14.8 mmol/L Normal [facility] Comment on above: Performed By: #### C MADM, LENO, LIPA, CMP ####[facility] [address] [place], [place] [address]Dr. Marcell Coates AST [Catalytic activity/Vol] 30 U/L Normal 15-37 [facility] Comment on above: Performed By: #### C MADM, LENO, LIPA, CMP ####[facility] [address] [place], [place] [address]Dr. Ansilvio Coates Bilirubin [Mass/Vol] 0.4 mg/dL Normal 0.2-1.0 [facility] Comment on above: Performed By: #### C MADM, LENO, LIPA, CMP ####[facility] [address] [place], [place] [address]Dr. Marcell Coates Calcium [Mass/Vol] 8.8 mg/dL Normal 8.5-10.1 The [facility] Comment on above: Performed By: #### C MADM, LENO, LIPA, CMP ####[facility] [address] [address]Dr. Marcell Coates Chloride [Moles/Vol] 106 mmol/L Normal 98-107 [facility] Comment on above: Performed By: #### C MADM, LENO, LIPA, CMP ####[facility] [address] [place] [address]Dr. Marcell Coates CO2 [Moles/Vol] 26.6 mmol/L Normal 21.0-32.0 [facility] Comment on above: Performed By: #### C MADM, LENO, LIPA, CMP ####[facility] [address] [address]Dr. Marcell Coates Creatinine [Mass/Vol] 1.11 mg/dL Critically high 0.55-1.02 [facility] Comment on above: Performed By: #### C MADM, LENO, LIPA, CMP ####[facility] [address] [place] [address]Dr. Marcell Coates EGFR-AF LIBERIAN >60 Normal >=60 [facility] Comment on above: Performed By: #### C MADM, LENO, LIPA, CMP ####[facility] [place] [address] [place], [place] [address]Dr. Marcell Coates EGFR-NON AF LIBERIAN 52 mL/min/1.73m2 Critically low >=60 [facility] Comment on above: Performed By: #### C MADM, LENO, LIPA, CMP ####[facility] [address] [address]Dr. Marcell Coates Globulin (S) [Mass/Vol] 3.1 g/dL Normal [facility] Comment on above: Performed By: #### C MADM, LENO, LIPA, CMP ####[facility] [address] [place] [address]Dr. Marcell Coates Glucose [Mass/Vol] 126 mg/dL Critically high 74-106 [facility] Comment on above: Performed By: #### C MADM, LENO, LIPA, CMP ####[facility] [address] [address]Dr. Marcell Coates Potassium [Moles/Vol] 3.4 mmol/L Critically low 3.5-5.1 [facility] Comment on above: Performed By: #### C RAFY, LEON, LIPA, CMP ####[facility] [address] [place] [id number]. Marcell Coates Protein [Mass/Vol] 6.6 g/dL Normal 6.4-8.2 [facility] Comment on above: Performed By: #### C MADM, LENO, LIPA, CMP ####[facility] [address] [place] [id number]. Marcell Coates Sodium [Moles/Vol] 144 mmol/L Normal 136-145 [facility] Comment on above: Performed By: #### C ANDRESM, LENO, LIPA, CMP ####[facility] [address] [address]Dr. Marcell Coates Urea nitrogen [Mass/Vol] 16.0 mg/dL Normal 7.0-18.0 [facility] Comment on above: Performed By: #### C RAFY, LENO, LIPA, CMP ####[facility] [address] [place] [address]Dr. Marcell Coates Urea nitrogen/Creatinine [Mass ratio] 14.4 mg/mg Normal [facility] Comment on above: Performed By: #### C RAFY, LENO, LIPA, CMP ####[facility] [address] [place] [address]Dr. Marcell Coates XR ABD FLAT UP_PA Germaine [...] PEDRO HA Date: 2022-07-14 23:48 Normal [facility] US SINGLE QUAD RT UPPERon US SINGLE [...] JT GRADY Date: 2022-06-18 12:36 Normal [facility] AMYLASEon 06-14-2022 Amylase [Catalytic activity/Vol] 19 U/L Critically low 25-115 [facility] Comment on above: Performed By: #### L IPA, LENO, CMP #### [facility] Laboratory [address] [address] [address] Marcell Coates CBC AUTO DIFFon 06-14-2022 BASO # 0.1 103/ul Normal 0.0-0.1 [facility] Comment on above: Performed By: #### B MP #### [facility] Laboratory [address] [address] [address] Marcell Coates Basophils/100 WBC (Bld) 0.6 % Normal 0.2-2.0 [facility] Comment on above: Performed By: #### B MP #### [facility] Laboratory [address] [address] [address] Marcell Coates EO # 0.3 103/ul Normal 0.0-0.7 [facility] Comment on above: Performed By: #### B MP #### [facility] Laboratory [address] [address] [address] Marcell Coates Eosinophils/100 WBC (Bld) 1.8 % Normal 0.9-7.0 [facility] Comment on above: Performed By: #### B MP #### [facility] Laboratory [address] [address] [address] Marcell Coates Erythrocyte distribution width (RBC) [Ratio] 14.2 % Normal 11.0-15.0 [facility] Comment on above: Performed By: #### B MP #### [facility] Laboratory [address] [place] [address] Dr. Marcell Coates Hematocrit (Bld) [Volume fraction] 44.9 % Normal 36.0-48.0 [facility] Comment on above: Performed By: #### B MP #### [facility] Laboratory [address] [address] [address] Marcell Coates Hemoglobin (Bld) [Mass/Vol] 14.8 g/dL Normal 12.0-16.0 [facility] Comment on above: Performed By: #### B MP #### [facility] Laboratory [address] [address] [address] Marcell Coates IG # 0.18 10e3/ul Critically high 0.00-0.03 [facility] Comment on above: Performed By: #### B MP #### [facility] Laboratory [address] [address] [address] Mracell Coates IG % 1.3 % Critically high 0.0-0.5 [facility] Comment on above: Performed By: #### B MP #### [facility] Laboratory [address] [address] [address] Marcell Cotaes LYMPH # 3.4 103/ul Normal 1.2-3.8 [facility] Comment on above: Performed By: #### B MP #### [facility] Laboratory [address] [place] [address] Dr. Marcell Coates Lymphocytes/100 WBC (Bld) 24.4 % Normal 20.5-60.0 [facility] Comment on above: Performed By: #### B MP #### [facility] Laboratory [address] [place] [address] Dr. Marcell Coates MANUAL DIFF REQ NO Normal [facility] Comment on above: Performed By: #### B MP #### [facility] Laboratory [address] [place] [address] Dr. Marcell Coates MCH (RBC) [Entitic mass] 29.4 pg Normal 26.7-34.0 [facility] Comment on above: Performed By: #### B MP #### [facility] Laboratory [address] [place] [address] Dr. Marcell Coates MCHC (RBC) [Mass/Vol] 33.0 g/dL Normal 29.9-35.2 [facility] Comment on above: Performed By: #### B MP #### [facility] Laboratory [address] [place] [address] Dr. Marcell Coates MCV (RBC) [Entitic vol] 89.3 fL Normal 81.0-99.0 [facility] Comment on above: Performed By: #### B MP #### [facility] Laboratory [address] [place] [address] Dr. Marcell Coates MONO # 1.1 103/ul Critically high 0.3-0.8 [facility] Comment on above: Performed By: #### B MP #### [facility] Laboratory [address] [place] [address] Dr. Marcell Coates Monocytes/100 WBC (Bld) 8.1 % Normal 1.7-12.0 [facility] Comment on above: Performed By: #### B MP #### [facility] Laboratory [address] [place] [id number] Dr. Marcell Coates NEUT # 8.9 103/ul Critically high 1.4-6.5 [facility] Comment on above: Performed By: #### B MP #### [facility] [address] [address] [address] Marcell Coates Neutrophils/100 WBC (Bld) 63.8 % Normal 43.0-75.0 [facility] Comment on above: Performed By: #### B MP #### [facility] [address] [address] [address] Marcell Coates Platelet mean volume (Bld) [Entitic vol] 10.2 fL Normal 9.5-13.5 [facility] Comment on above: Performed By: #### B MP #### [facility] [address] [address] [address] Marcell Coates PLT 284 103/ul Normal 150-450 [facility] Comment on above: Performed By: #### B MP #### [facility] [address] [place] [address] Dr. Marcell Coates RBC 5.03 106/ul Normal 4.20-5.40 [facility] Comment on above: Performed By: #### B MP #### [facility] [address] [place] [address] Dr. Marcell Coates WBC 13.9 103/ul Critically high 4.0-11.0 [facility] Comment on above: Performed By: #### B MP #### [facility] [address] [place] [address] Dr. Marcell Coates LIPASEon 06-14-2022 Lipase [Catalytic activity/Vol] 81.0 U/L Normal 73.0-393.0 [facility] Comment on above: Performed By: #### L LENO STERN, CMP #### [facility] [address] [place] [address] Dr. Marcell Coates PROF 14(COMP METB)on 023 Albumin [Mass/Vol] 3.5 g/dL Normal 3.4-5.0 [facility] Comment on above: Performed By: #### L LENO STERN, CMP #### [facility] [address] [place] [address] Dr. Marcell Coates Albumin/Globulin [Mass ratio] 1.3 {ratio} Normal [facility] Comment on above: Performed By: #### L IPA, LENO, CMP #### [facility] [address] [address] [address] Marcell Coates ALP [Catalytic activity/Vol] 121 U/L Critically high 46-116 [facility] Comment on above: Performed By: #### L IPA, LENO, CMP #### [facility] [address] [address] [address] Marcell Coates ALT [Catalytic activity/Vol] 32 U/L Normal 14-59 [facility] Comment on above: Performed By: #### L IPA, LENO, CMP #### [facility] [address] [address] [address] Marcell Coates Anion gap [Moles/Vol] 16.4 mmol/L Normal [facility] Comment on above: Performed By: #### L IPA, LENO, CMP #### [facility] [address] [address] [address] Marcell Coates AST [Catalytic activity/Vol] 31 U/L Normal 15-37 [facility] Comment on above: Performed By: #### L IPA LENO, CMP #### [facility] [address] [address] [address] Marcell Coates Bilirubin [Mass/Vol] 0.5 mg/dL Normal 0.2-1.0 [facility] Comment on above: Performed By: #### L IPA, LENO, CMP #### [facility] [address] [address] [address] Marcell Coates Calcium [Mass/Vol] 8.6 mg/dL Normal 8.5-10.1 [facility] Comment on above: Performed By: #### L IPA, LENO, CMP #### [facility] [address] [address] [address] Marcell Coates Chloride [Moles/Vol] 104 mmol/L Normal 98-107 [facility] Comment on above: Performed By: #### L IPA, LENO, CMP #### [facility] [address] [address] [address] Marcell Coates CO2 [Moles/Vol] 21.2 mmol/L Normal 21.0-32.0 [facility] Comment on above: Performed By: #### L LENO STERN, CMP #### [facility] [address] [place] [address] Dr. Marcell Coates Creatinine [Mass/Vol] 1.13 mg/dL Critically high 0.55-1.02 [facility] Comment on above: Performed By: #### L LENO STERN, CMP #### [facility] [address] [address] [address] Marcell Coates EGFR-AF LIBERIAN >60 Normal >=60 [facility] Comment on above: Performed By: #### L LENO STERN, CMP #### [facility] [address] [place] [address] Dr. Marcell Coates EGFR-NON AF LIBERIAN 51 mL/min/1.73m2 Critically low >=60 [facility] Comment on above: Performed By: #### L LENO STERN, CMP #### [facility] [address] [place] [address] Dr. Marcell Coates Globulin (S) [Mass/Vol] 2.6 g/dL Normal [facility] Comment on above: Performed By: #### L LENO STERN, CMP #### [facility] [address] [place] [address] Dr. Marcell Coates Glucose [Mass/Vol] 139 mg/dL Critically high 74-106 [facility] Comment on above: Performed By: #### L LENO STERN, CMP #### [facility] [address] [place] [address] Dr. Marcell Coates Potassium [Moles/Vol] 3.6 mmol/L Normal 3.5-5.1 [facility] Comment on above: Performed By: #### L LENO STERN, CMP #### [facility] [address] [place] [address] Dr. Marcell Coates Protein [Mass/Vol] 6.1 g/dL Critically low 6.4-8.2 [facility] Comment on above: Performed By: #### L LENO STERN, CMP #### [facility] [address] [address] [address] Marcell Coates Sodium [Moles/Vol] 138 mmol/L Normal 136-145 [facility] Comment on above: Performed By: #### L LENO STERN, CMP #### [facility] [address] [place] [address] Dr. Marcell Coates Urea nitrogen [Mass/Vol] 18.0 mg/dL Normal 7.0-18.0 [facility] Comment on above: Performed By: #### L LENO STERN CMP #### [facility] [address] [place] [address] Dr. Marcell Coates Urea nitrogen/Creatinine [Mass ratio] 15.9 mg/mg Normal [facility] Comment on above: Performed By: #### L LENO STERN CMP #### [facility] [address] [place] [address] Dr. Marcell Coates TROPONIN, HIGH SENSITIVITYon 06-14-2022 HSTROP 36.3 pg/mL Normal 4.0-51.3 [facility] Comment on above: Result Comment: CUT- OFF POINTS HAVE BEEN ESTABLISHED BASED ON THE FOURTH UNIVERSAL DEFINITIONS OF MYOCARDIAL INFARCTION. THE UPPER REFERENCE LIMIT (URL) OF TROPONIN, DEFINED THE 99TH PERCENTILE OF cTnI DISTRIBUTION IN A REFERENCE POPULATION, HAS BEEN CONFIRMED THE DECISION THRESHOLD FOR [place] DIAGNOSIS. Performed By: #### H STROPN ####[facility] [id number] [address] Marcell Coatse AMYLASEon 06-09-2022 Amylase [Catalytic activity/Vol] 22 U/L Critically low 25-115 [facility] Comment on above: Performed By: #### B MP #### [facility] [address] [place] [address] Dr. Marcell Coates CBC AUTO DIFFon 06-09-2022 BASO # 0.1 103/ul Normal 0.0-0.1 [facility] Comment on above: Performed By: #### C BC #### [facility] [address] [place] [address] Dr. Marcell Coates Basophils/100 WBC (Bld) 0.6 % Normal 0.2-2.0 [facility] Comment on above: Performed By: #### C BC #### [facility] [address] [place] [address] Dr. Marcell Coates EO # 0.5 103/ul Normal 0.0-0.7 [facility] Comment on above: Performed By: #### C BC #### [facility] [address] [place] [address] Dr. Marcell Coates Eosinophils/100 WBC (Bld) 4.0 % Normal 0.9-7.0 [facility] Comment on above: Performed By: #### C BC #### [facility] [address] [place] [address] Dr. Marcell Coates Erythrocyte distribution width (RBC) [Ratio] 13.9 % Normal 11.0-15.0 [facility] Comment on above: Performed By: #### C BC #### [facility] [address] [place] [address] Dr. Marcell Coates Hematocrit (Bld) [Volume fraction] 46.2 % Normal 36.0-48.0 [facility] Comment on above: Performed By: #### C BC #### [facility] [address] [place] [address] Dr. Marcell Coates Hemoglobin (Bld) [Mass/Vol] 15.2 g/dL Normal 12.0-16.0 [facility] Comment on above: Performed By: #### C BC #### [facility] [address] [place] [address] Dr. Marcell Coates IG # 0.02 10e3/ul Normal 0.00-0.03 [facility] Comment on above: Performed By: #### C BC #### [facility] [address] [place] [address] Dr. Marcell Coates IG % 0.2 % Normal 0.0-0.5 [facility] Comment on above: Performed By: #### C BC #### [facility] [address] [place] [address] Dr. Marcell Coates LYMPH # 3.8 103/ul Normal 1.2-3.8 [facility] Comment on above: Performed By: #### C BC #### [facility] [address] [address] [address] Marcell Coates Lymphocytes/100 WBC (Bld) 31.4 % Normal 20.5-60.0 [facility] Comment on above: Performed By: #### C BC #### [facility] [address] [place] [address] Dr. Marcell Coates MANUAL DIFF REQ NO Normal [facility] Comment on above: Performed By: #### C BC #### [facility] [address] [place] [address] Dr. Marcell Coates MCH (RBC) [Entitic mass] 29.6 pg Normal 26.7-34.0 [facility] Comment on above: Performed By: #### C BC #### [facility] [address] [place] [address] Dr. Marcell Coates MCHC (RBC) [Mass/Vol] 32.9 g/dL Normal 29.9-35.2 [facility] Comment on above: Performed By: #### C BC #### [facility] [address] [place] [address] Dr. Marcell Coates MCV (RBC) [Entitic vol] 90.1 fL Normal 81.0-99.0 [facility] Comment on above: Performed By: #### C BC #### [facility] [address] [place] [address] Dr. Marcell Coates MONO # 0.9 103/ul Critically high 0.3-0.8 [facility] Comment on above: Performed By: #### C BC #### [facility] [address] [place] [address] Dr. Marcell Coates Monocytes/100 WBC (Bld) 7.7 % Normal 1.7-12.0 [facility] Comment on above: Performed By: #### C BC #### [facility] [address] [place] [address] Dr. Marcell Coates NEUT # 6.7 103/ul Critically high 1.4-6.5 [facility] Comment on above: Performed By: #### C BC #### [facility] [address] [place], [place] [address] Dr. Marcell Coates Neutrophils/100 WBC (Bld) 56.1 % Normal 43.0-75.0 [facility] Comment on above: Performed By: #### C BC #### [facility] [address] [address] [address] Marcell Coates Platelet mean volume (Bld) [Entitic vol] 9.6 fL Normal 9.5-13.5 [facility] Comment on above: Performed By: #### C BC #### [facility] [address] [address] [address] Marcell Coates PLT 297 103/ul Normal 150-450 [facility] Comment on above: Performed By: #### C BC #### [facility] [address] [place] [address] Dr. Marcell Coates RBC 5.13 106/ul Normal 4.20-5.40 [facility] Comment on above: Performed By: #### C BC #### [facility] [address] [id number] [address] Marcell Coates WBC 11.9 103/ul Critically high 4.0-11.0 [facility] Comment on above: Performed By: #### C BC #### [facility] [address] [place], [place] [id number] Dr. Marcell Coates CT ABD/PELVIS WO CONon [...] OSWALDO QUIROZ Date: 2022-06-09 01:12 Normal [facility] ER URINE PROFILEon 3 Bilirubin Ql (U) Negative Normal NEGATIVE [facility] Comment on above: Performed By: #### B MP #### [facility] [address] [place] [address] Dr. Marcell Coates Clarity (U) CLEAR Normal CLEAR [facility] Comment on above: Performed By: #### B MP #### [facility] [address] [place] [address] Dr. Marcell Coates Color (U) LT. YELLOW Normal YELLOW [facility] Comment on above: Performed By: #### B MP #### [facility] [address] [place] [address] Dr. Marcell Coates ERULOR A micrscopic examination will be performed if indicated. Normal [facility] Comment on above: Performed By: #### B MP #### [facility] [address] [place] [address] Dr. Marcell Coates Glucose Ql (U) Negative Normal NEGATIVE [facility] Comment on above: Performed By: #### B MP #### [facility] [address] [place] [address] Dr. Marcell Coates Hemoglobin Ql (U) Negative Normal NEGATIVE [facility] Comment on above: Performed By: #### B MP #### [facility] [address] [place] [address] Dr. Marcell Coates Ketones Ql (U) Negative Normal NEGATIVE [facility] Comment on above: Performed By: #### B MP #### [facility] [address] [place] [address] Dr. Marcell Coates LEUKOCYTES Negative Normal NEGATIVE The [facility] Comment on above: Performed By: #### B MP #### [facility] [address] [place] [address] Dr. Marcell Coates Nitrite Ql (U) Negative Normal NEGATIVE [facility] Comment on above: Performed By: #### B MP #### [facility] [address] [place] [address] Dr. Marcell Coates pH (U) 6.0 [pH] Normal 5-9 [facility] Comment on above: Performed By: #### B MP #### [facility] [address] [place] [address] Dr. Marcell Coates Protein (U) [Mass/Vol] 30 mg/dL Abnormal NEGATIVE/ TRACE [facility] Comment on above: Performed By: #### B MP #### [facility] [address] [place] [address] Dr. Marcell Coates SPEC GRAVITY <=1.005 Abnormal 1.005-<=1.025 [facility] Comment on above: Performed By: #### B MP #### [facility] [address] [place] [address] Dr. Marcell Coates UR MICRO IND NOT INDICATED Normal [facility] Comment on above: Performed By: #### B MP #### [facility] [address] [place] [address] Dr. Marcell Coates Urobilinogen Qn (U) 0.2 {Jl'U}/dL Normal 0.2 - 1. 0 [facility] Comment on above: Performed By: #### B MP #### [facility] [address] [place] [address] Dr. Marcell Coates LIPASEon 06-09-2022 Lipase [Catalytic activity/Vol] 82.0 U/L Normal 73.0-393.0 [facility] Comment on above: Performed By: #### B MP #### [facility] [address] [place] [address] Dr. Marcell Coates PROF 14(COMP METB)on 023 Albumin [Mass/Vol] 3.6 g/dL Normal 3.4-5.0 [facility] Comment on above: Performed By: #### B MP #### [facility] [address] [place] [address] Dr. Marcell Coates Albumin/Globulin [Mass ratio] 1.2 {ratio} Normal [facility] Comment on above: Performed By: #### B MP #### [facility] [address] [address] [address] Marcell Coates ALP [Catalytic activity/Vol] 92 U/L Normal 46-116 [facility] Comment on above: Performed By: #### B MP #### [facility] [address] [address] [address] Marcell Coates ALT [Catalytic activity/Vol] 30 U/L Normal 14-59 [facility] Comment on above: Performed By: #### B MP #### [facility] [address] [address] [address] Marcell Coates Anion gap [Moles/Vol] 12.0 mmol/L Normal [facility] Comment on above: Performed By: #### B MP #### [facility] [address] [place] [address] Dr. Marcell Coates AST [Catalytic activity/Vol] 25 U/L Normal 15-37 [facility] Comment on above: Performed By: #### B MP #### [facility] [address] [place] [address] Dr. Marcell Coates Bilirubin [Mass/Vol] 0.4 mg/dL Normal 0.2-1.0 [facility] Comment on above: Performed By: #### B MP #### [facility] [address] [place] [address] Dr. Marcell Coates Calcium [Mass/Vol] 8.7 mg/dL Normal 8.5-10.1 [facility] Comment on above: Performed By: #### B MP #### [facility] [address] [address] [address] Marcell Coates Chloride [Moles/Vol] 103 mmol/L Normal 98-107 [facility] Comment on above: Performed By: #### B MP #### [facility] [address] [address] [address] Marcell Coates CO2 [Moles/Vol] 24.5 mmol/L Normal 21.0-32.0 [facility] Comment on above: Performed By: #### B MP #### [facility] [address] [address] [address] Marcell Coates Creatinine [Mass/Vol] 1.04 mg/dL Critically high 0.55-1.02 [facility] Comment on above: Performed By: #### B MP #### [facility] [address] [address] [address] Marcell Coates EGFR-AF LIBERIAN >60 Normal >=60 [facility] Comment on above: Performed By: #### B MP #### [facility] [address] [address] [address] Marcell Coates EGFR-NON AF LIBERIAN 56 mL/min/1.73m2 Critically low >=60 [facility] Comment on above: Performed By: #### B MP #### [facility] [address] [address] [address] Marcell Coates Globulin (S) [Mass/Vol] 3.0 g/dL Normal [facility] Comment on above: Performed By: #### B MP #### [facility] [address] [address] [address] Marcell Coates Glucose [Mass/Vol] 109 mg/dL Critically high 74-106 [facility] Comment on above: Performed By: #### B MP #### [facility] [address] [address] [address] Marcell Coates Potassium [Moles/Vol] 3.5 mmol/L Normal 3.5-5.1 [facility] Comment on above: Performed By: #### B MP #### [facility] [address] [address] [address] Marcell Coates Protein [Mass/Vol] 6.6 g/dL Normal 6.4-8.2 [facility] Comment on above: Performed By: #### B MP #### [facility] [address] [address] [address] Marcell Coates Sodium [Moles/Vol] 136 mmol/L Normal 136-145 [facility] Comment on above: Performed By: #### B MP #### [facility] [address] [address] [address] Marcell Coates Urea nitrogen [Mass/Vol] 10.0 mg/dL Normal 7.0-18.0 [facility] Comment on above: Performed By: #### B MP #### [facility] [address] [address] [address] Marcell Coates Urea nitrogen/Creatinine [Mass ratio] 9.6 mg/mg Normal [facility] Comment on above: Performed By: #### B MP #### [facility] [address] [address] [address] Marcell Coates XR CHEST 1 Von [...] LIOR JIANG Date: 2022-05-11 03:02 Normal [facility] BNPon 04-22-2022 Natriuretic peptide B (Bld) [Mass/Vol] 9289.0 pg/mL Critically high <=450.0 [facility] Comment on above: Performed By: #### B MEDICAL ASSISTANT FLOAT, BMP #### [facility] [address] [address] [address] Marcell Coates CBC AUTO DIFFon 04-22-2022 BASO # 0.1 103/ul Normal 0.0-0.1 [facility] Comment on above: Performed By: #### L LENO STERN, CMP #### [facility] [facility] [place] [facility] [address] [place] [address] Dr. Marcell Coates Basophils/100 WBC (Bld) 0.6 % Normal 0.2-2.0 [facility] Comment on above: Performed By: #### L LENO STERN, CMP #### [facility] [address] [place] [address] Dr. Marcell Coates EO # 0.4 103/ul Normal 0.0-0.7 [facility] Comment on above: Performed By: #### L LENO STERN, CMP #### [facility] [address] [place] [address] Dr. Marcell Coates Eosinophils/100 WBC (Bld) 2.9 % Normal 0.9-7.0 [facility] Comment on above: Performed By: #### L LENO STERN, CMP #### [facility] [address] [place] [address] Dr. Marcell Coates Erythrocyte distribution width (RBC) [Ratio] 14.5 % Normal 11.0-15.0 [facility] Comment on above: Performed By: #### L LENO STERN, CMP #### [facility] [address] [place] [address] Dr. Marcell Coates Hematocrit (Bld) [Volume fraction] 41.6 % Normal 36.0-48.0 [facility] Comment on above: Performed By: #### L LENO STERN, CMP #### [facility] [address] [place] [address] Dr. Marcell Coates Hemoglobin (Bld) [Mass/Vol] 13.1 g/dL Normal 12.0-16.0 [facility] Comment on above: Performed By: #### L LENO STERN, CMP #### [facility] [address] [place] [address] Dr. Marcell Coates IG # 0.05 10e3/ul Critically high 0.00-0.03 [facility] Comment on above: Performed By: #### L LENO STERN, CMP #### [facility] [address] [address] [address] Marcell Coates IG % 0.4 % Normal 0.0-0.5 [facility] Comment on above: Performed By: #### L IPA, LENO, CMP #### [facility] [address] [address] [address] Marcell Coates LYMPH # 3.1 103/ul Normal 1.2-3.8 [facility] Comment on above: Performed By: #### L IPA, LENO, CMP #### [facility] [address] [place] [address] Dr. Marcell Coates Lymphocytes/100 WBC (Bld) 22.1 % Normal 20.5-60.0 [facility] Comment on above: Performed By: #### L LEENA LENO, CMP #### [facility] [address] [place] [address] Dr. Marcell Coates MANUAL DIFF REQ NO Normal [facility] Comment on above: Performed By: #### L LEENA LENO, CMP #### [facility] [address] [place] [address] Dr. Marcell Coates MCH (RBC) [Entitic mass] 29.8 pg Normal 26.7-34.0 [facility] Comment on above: Performed By: #### L LEENA LENO, CMP #### [facility] [address] [place] [address] Dr. Marcell Coates MCHC (RBC) [Mass/Vol] 31.5 g/dL Normal 29.9-35.2 [facility] Comment on above: Performed By: #### L IPA LENO, CMP #### [facility] [address] [place] [address] Dr. Marcell Coates MCV (RBC) [Entitic vol] 94.5 fL Normal 81.0-99.0 [facility] Comment on above: Performed By: #### L IPA, LENO, CMP #### [facility] [address] [place] [address] Dr. Marcell Coates MONO # 0.9 103/ul Critically high 0.3-0.8 [facility] Comment on above: Performed By: #### L LENO STERN, CMP #### [facility] [address] [place] [address] Dr. Marcell Coates Monocytes/100 WBC (Bld) 6.1 % Normal 1.7-12.0 [facility] Comment on above: Performed By: #### L LEENA LENO, CMP #### [facility] [address] [place] [address] Dr. Marcell Coates NEUT # 9.5 103/ul Critically high 1.4-6.5 [facility] Comment on above: Performed By: #### L LENO STERN, CMP #### [facility] [address] [place] [address] Dr. Marcell Coates Neutrophils/100 WBC (Bld) 67.9 % Normal 43.0-75.0 [facility] Comment on above: Performed By: #### L LENO STERN, CMP #### [facility] [address] [place] [address] Dr. Marcell Coates Platelet mean volume (Bld) [Entitic vol] 10.0 fL Normal 9.5-13.5 [facility] Comment on above: Performed By: #### L LENO STERN, CMP #### [facility] [address] [place] [address] Dr. Marcell Coates PLT 285 103/ul Normal 150-450 [facility] Comment on above: Performed By: #### L LENO STERN, CMP #### [facility] [address] [place] [address] Dr. Marcell Coates RBC 4.40 106/ul Normal 4.20-5.40 [facility] Comment on above: Performed By: #### L LENO STERN, CMP #### [facility] [address] [place] [address] Dr. Marcell Coates WBC 13.9 103/ul Critically high 4.0-11.0 [facility] Comment on above: Performed By: #### L LENO STERN, CMP #### [facility] [address] [place] [address] Dr. Marcell Coates PROF CHEM 8 (BAS METB)on Anion gap [Moles/Vol] 15.0 mmol/L Normal [facility] Comment on above: Performed By: #### B MEDICAL ASSISTANT FLOAT, BMP #### [facility] [address] [place] [address] Dr. Marcell Coates Calcium [Mass/Vol] 9.1 mg/dL Normal 8.5-10.1 [facility] Comment on above: Performed By: #### B MEDICAL ASSISTANT FLOAT, BMP #### [facility] [address] [place] [address] Dr. Marcell Coates Chloride [Moles/Vol] 107 mmol/L Normal 98-107 [facility] Comment on above: Performed By: #### B MEDICAL ASSISTANT FLOAT, BMP #### [facility] [address] [place] [address] Dr. Marcell Coates CO2 [Moles/Vol] 23.4 mmol/L Normal 21.0-32.0 [facility] Comment on above: Performed By: #### B MEDICAL ASSISTANT FLOAT, BMP #### [facility] [address] [place] [address] Dr. Marcell Coates Creatinine [Mass/Vol] 1.00 mg/dL Normal 0.55-1.02 [facility] Comment on above: Performed By: #### B MEDICAL ASSISTANT FLOAT, BMP #### [facility] [address] [place] [address] Dr. Marcell Coates EGFR-AF LIBERIAN >60 Normal >=60 [facility] Comment on above: Performed By: #### B MEDICAL ASSISTANT FLOAT, BMP #### [facility] [address] [place] [address] Dr. Marcell Coates EGFR-NON AF LIBERIAN 59 mL/min/1.73m2 Critically low >=60 [facility] Comment on above: Performed By: #### B MEDICAL ASSISTANT FLOAT, BMP #### [facility] [address] [place] [address] Dr. Marcell Coates Glucose [Mass/Vol] 166 mg/dL Critically high 74-106 [facility] Comment on above: Performed By: #### B MEDICAL ASSISTANT FLOAT, BMP #### [facility] [address] [address] [address] Marcell Coates Potassium [Moles/Vol] 3.4 mmol/L Critically low 3.5-5.1 [facility] Comment on above: Performed By: #### B MEDICAL ASSISTANT FLOAT, BMP #### [facility] [address] [address] [address] Marcell Coates Sodium [Moles/Vol] 142 mmol/L Normal 136-145 [facility] Comment on above: Performed By: #### B MEDICAL ASSISTANT FLOAT, BMP #### [facility] [address] [address] [address] Marcell Coates Urea nitrogen [Mass/Vol] 21.0 mg/dL Critically high 7.0-18.0 [facility] Comment on above: Performed By: #### B MEDICAL ASSISTANT FLOAT, BMP #### [facility] [address] [address] [address] Marcell Coates Urea nitrogen/Creatinine [Mass ratio] 21.0 mg/mg Normal [facility] Comment on above: Performed By: #### B MEDICAL ASSISTANT FLOAT, BMP #### [facility] [address] [address] [address] Marcell Coates TROPONIN, HIGH SENSITIVITYon 04-22-2022 HSTROP 48.9 pg/mL Normal 4.0-51.3 [facility] Comment on above: Result Comment: CUT- OFF POINTS HAVE BEEN ESTABLISHED BASED ON THE FOURTH UNIVERSAL DEFINITIONS OF MYOCARDIAL INFARCTION. THE UPPER REFERENCE LIMIT (URL) OF TROPONIN, DEFINED THE 99TH PERCENTILE OF cTnI DISTRIBUTION IN A REFERENCE POPULATION, HAS BEEN CONFIRMED THE DECISION THRESHOLD FOR [place] DIAGNOSIS. Performed By: #### H STROPN ####[facility] [id number] [id number]. Marcell Coates XR CHEST 1 Von 04-22-2022 [...] LIZANDRO LATIF Date: 2022-04-22 19:45 Normal The [facility] CARDIAC ISACC 3-6on 2 CK [Catalytic activity/Vol] 63 U/L Normal 26-192 [facility] Comment on above: Performed By: #### C MREP ####[facility] [address] [place], [place] [address]Qj. Marcell Coates CK.MB [Mass/Vol] 1.16 ng/mL Normal <=3.60 [facility] Comment on above: Performed By: #### C MREP ####[facility] [address] [place], [place] [address]Go. Marcell Coates HSTROP 27.4 pg/mL Normal 4.0-51.3 [facility] Comment on above: Result Comment: CUT- OFF POINTS HAVE BEEN ESTABLISHED BASED ON THE FOURTH UNIVERSAL DEFINITIONS OF MYOCARDIAL INFARCTION. THE UPPER REFERENCE LIMIT (URL) OF TROPONIN, DEFINED THE 99TH PERCENTILE OF cTnI DISTRIBUTION IN A REFERENCE POPULATION, HAS BEEN CONFIRMED THE DECISION THRESHOLD FOR [place] DIAGNOSIS. Performed By: #### C MREP ####[facility] [address] [place], [place] [address]Wu. Marcell Coates CARDIAC ISACC ADMITon 022 CK [Catalytic activity/Vol] 67 U/L Normal -192 [facility] Comment on above: Performed By: #### C MADM, BMP ####[facility] [id number] [place], [place] [address]Mf. Marcell Coates CK.MB [Mass/Vol] 0.84 ng/mL Normal <=3.60 [facility] Comment on above: Performed By: #### C MADM, BMP ####[facility] [address] [place], [place] [address]Qe. Marcell Coates HSTROP 25.4 pg/mL Normal 4.0-51.3 [facility] Comment on above: Result Comment: CUT- OFF POINTS HAVE BEEN ESTABLISHED BASED ON THE FOURTH UNIVERSAL DEFINITIONS OF MYOCARDIAL INFARCTION. THE UPPER REFERENCE LIMIT (URL) OF TROPONIN, DEFINED THE 99TH PERCENTILE OF cTnI DISTRIBUTION IN A REFERENCE POPULATION, HAS BEEN CONFIRMED THE DECISION THRESHOLD FOR [place] DIAGNOSIS. Performed By: #### C MADM, BMP ####[facility] [id number] [address]Dr. Marcell Coates CHASITY 44 ng/mL Normal 9-82 [facility] Comment on above: Performed By: #### C MADM, BMP ####[facility] [id number] [id number]. Marcell Coates CBC AUTO DIFFon 01-22-2022 BASO # 0.1 103/ul Normal 0.0-0.1 [facility] Comment on above: Performed By: #### L IPALENO, CMP #### [facility] [address] [address] [address] Marcell Coates Basophils/100 WBC (Bld) 0.7 % Normal 0.2-2.0 [facility] Comment on above: Performed By: #### L LEENA LENO, CMP #### [facility] [address] [place] [address] Dr. Marcell Coates EO # 0.5 103/ul Normal 0.0-0.7 [facility] Comment on above: Performed By: #### L LENO STERN, CMP #### [facility] [address] [place] [address] Dr. Marcell Coates Eosinophils/100 WBC (Bld) 4.4 % Normal 0.9-7.0 [facility] Comment on above: Performed By: #### L LEENA LENO, CMP #### [facility] [address] [place] [address] Dr. Marcell Coates Erythrocyte distribution width (RBC) [Ratio] 13.3 % Normal 11.0-15.0 [facility] Comment on above: Performed By: #### L LENO STERN, CMP #### [facility] [address] [place] [address] Dr. Marcell Coates Hematocrit (Bld) [Volume fraction] 41.9 % Normal 36.0-48.0 [facility] Comment on above: Performed By: #### L IPA LENO, CMP #### [facility] [address] [place] [address] Dr. Marcell Coates Hemoglobin (Bld) [Mass/Vol] 14.2 g/dL Normal 12.0-16.0 [facility] Comment on above: Performed By: #### L LENO STERN, CMP #### [facility] [address] [place] [address] Dr. Marcell Coates IG # 0.03 10e3/ul Normal 0.00-0.03 [facility] Comment on above: Performed By: #### L LENO STERN, CMP #### [facility] [address] [place] [address] Dr. Marcell Coates IG % 0.2 % Normal 0.0-0.5 [facility] Comment on above: Performed By: #### L LENO STERN, CMP #### [facility] [address] [place] [address] Dr. Marcell Coates LYMPH # 4.0 103/ul Critically high 1.2-3.8 [facility] Comment on above: Performed By: #### L LENO STERN, CMP #### [facility] [address] [place] [address] Dr. Marcell Coates Lymphocytes/100 WBC (Bld) 32.9 % Normal 20.5-60.0 [facility] Comment on above: Performed By: #### L LENO STERN, CMP #### [facility] [address] [place] [address] Dr. Marcell Coates MANUAL DIFF REQ NO Normal [facility] Comment on above: Performed By: #### L LENO STERN, CMP #### [facility] [address] [place] [address] Dr. Marcell Coates MCH (RBC) [Entitic mass] 30.3 pg Normal 26.7-34.0 [facility] Comment on above: Performed By: #### L LENO STERN, CMP #### [facility] [address] [place] [address] Dr. Marcell Coates MCHC (RBC) [Mass/Vol] 33.9 g/dL Normal 29.9-35.2 [facility] Comment on above: Performed By: #### L LENO STERN, CMP #### [facility] [address] [place] [address] Dr. Marcell Coates MCV (RBC) [Entitic vol] 89.5 fL Normal 81.0-99.0 [facility] Comment on above: Performed By: #### L IPA, LENO, CMP #### [facility] [address] [place] [address] Dr. Marcell Coates MONO # 0.9 103/ul Critically high 0.3-0.8 [facility] Comment on above: Performed By: #### L IPA, LENO, CMP #### [facility] [address] [place] [address] Dr. Marcell Coates Monocytes/100 WBC (Bld) 7.3 % Normal 1.7-12.0 [facility] Comment on above: Performed By: #### L IPA LENO, CMP #### [facility] [address] [place] [address] Dr. Marcell Coates NEUT # 6.6 103/ul Critically high 1.4-6.5 [facility] Comment on above: Performed By: #### L IPA LENO, CMP #### [facility] [address] [place] [address] Dr. Marcell Coates Neutrophils/100 WBC (Bld) 54.5 % Normal 43.0-75.0 [facility] Comment on above: Performed By: #### L IPA LENO, CMP #### [facility] [address] [place] [address] Dr. Marcell Coates Platelet mean volume (Bld) [Entitic vol] 10.0 fL Normal 9.5-13.5 [facility] Comment on above: Performed By: #### L IPA LENO, CMP #### [facility] [address] [place] [address] Dr. Marcell Coates PLT 250 103/ul Normal 150-450 [facility] Comment on above: Performed By: #### L IPA LENO, CMP #### [facility] [address] [place] [address] Dr. Marcell Coates RBC 4.68 106/ul Normal 4.20-5.40 [facility] Comment on above: Performed By: #### L LENO STERN, CMP #### [facility] [address] [address] [address] Marcell Coates WBC 12.1 103/ul Critically high 4.0-11.0 [facility] Comment on above: Performed By: #### L LENO STERN, CMP #### [facility] [address] [address] [address] HEAD WO CONon [...] HAYLEE KILPATRICK Date: 2022-01-22 01:46 Normal [facility] PROF CHEM 8 (BAS METB)on Anion gap [Moles/Vol] 13.4 mmol/L Normal [facility] Comment on above: Performed By: #### C RAFY BMP ####[facility] [id number] [address]DrSherrie Coates Calcium [Mass/Vol] 9.6 mg/dL Normal 8.5-10.1 [facility] Comment on above: Performed By: #### C RAFY BMP ####[facility] [id number] [address]DrSherrie Coates Chloride [Moles/Vol] 103 mmol/L Normal 98-107 [facility] Comment on above: Performed By: #### C RAFY, BMP ####[facility] [id number] [address]DrSherrie Coates CO2 [Moles/Vol] 25.4 mmol/L Normal 21.0-32.0 [facility] Comment on above: Performed By: #### Coleen HILLMAN, BMP ####[facility] [id number] [address]Dr. Marcell Coates Creatinine [Mass/Vol] 0.97 mg/dL Normal 0.55-1.02 [facility] Comment on above: Performed By: #### Coleen HILLMAN, BMP ####[facility] [address] [address]Dr. Marcell Coates EGFR-AF LIBERIAN >60 Normal >=60 [facility] Comment on above: Performed By: #### Coleen HILLMAN, BMP ####[facility] [id number] [address]Dr. Marcell Coates EGFR-NON AF LIBERIAN >60 Normal >=60 [facility] Comment on above: Performed By: #### Coleen HILLMAN BMP ####[facility] [address] [address]Dr. Marcell Coates Glucose [Mass/Vol] 146 mg/dL Critically high 74-106 [facility] Comment on above: Performed By: #### Coleen HILLMAN, BMP ####[facility] [id number] [place], [place] [address]Dr. Marcell Coates Potassium [Moles/Vol] 3.8 mmol/L Normal 3.5-5.1 [facility] Comment on above: Performed By: #### Coleen HILLMAN, BMP ####[facility] [id number] [address]Dr. Marcell Coates Sodium [Moles/Vol] 138 mmol/L Normal 136-145 [facility] Comment on above: Performed By: #### Coleen HILLMAN, BMP ####[facility] [id number] [address]Dr. Marcell Coates Urea nitrogen [Mass/Vol] 19.0 mg/dL Critically high 7.0-18.0 [facility] Comment on above: Performed By: #### Coleen HILLMAN, BMP ####[facility] [address] [address]Dr. Marcell Coates Urea nitrogen/Creatinine [Mass ratio] 19.6 mg/mg Normal [facility] Comment on above: Performed By: #### C LILLY HILLMAN ####[facility] [address] [id number]. Marcell Coates XR CHEST 1 Von 01-22-2022 [...] Minal HARRIS Date: 2022-01-22 01:40 Normal [facility] XR SHOULDER LT 2V or >on XR [...] Minal HARRIS Date: 2022-01-22 04:36 Normal [facility] CBC AUTO DIFFon 12-22-2021 BASO # 0.1 103/ul Normal 0.0-0.1 [facility] Comment on above: Performed By: #### C BC ####[facility] [id number] [id number]. Marcell Coates Basophils/100 WBC (Bld) 0.6 % Normal 0.2-2.0 [facility] Comment on above: Performed By: #### C BC ####[facility] [address] [id number]. Ansilvio Coates EO # 0.6 103/ul Normal 0.0-0.7 [facility] Comment on above: Performed By: #### C BC ####[facility] [address] [address]Dr. Marcell Coates Eosinophils/100 WBC (Bld) 4.8 % Normal 0.9-7.0 [facility] Comment on above: Performed By: #### C BC ####[facility] [id number] [address] [place], [place] [address]Dr. Marcell Coates Erythrocyte distribution width (RBC) [Ratio] 13.5 % Normal 11.0-15.0 [facility] Comment on above: Performed By: #### C BC ####[facility] Tfrbpax[address] [place], [place] [address]Dr. Marcell Coates Hematocrit (Bld) [Volume fraction] 43.7 % Normal 36.0-48.0 [facility] Comment on above: Performed By: #### C BC ####[facility] Qxvgamegoa[address] [place], [place] [address]Dr. Marcell Coates Hemoglobin (Bld) [Mass/Vol] 14.4 g/dL Normal 12.0-16.0 [facility] Comment on above: Performed By: #### C BC ####[facility] Ummmbajv[address] [place], [place] [address]Dr. Marcell Coates IG # 0.04 10e3/ul Critically high 0.00-0.03 [facility] Comment on above: Performed By: #### C BC ####[facility] Tjqastjzuc[address] [place], [place] [address]Dr. Marcell Coates IG % 0.3 % Normal 0.0-0.5 The [facility] Comment on above: Performed By: #### C BC ####[facility] Klxbmffrce[address] [place], [place] [address]Dr. Marcell Coates LYMPH # 3.2 103/ul Normal 1.2-3.8 The [facility] Comment on above: Performed By: #### C BC ####[facility] Itzsbjudhu[address] [place], [place] [address]Dr. Marcell Jaxon Lymphocytes/100 WBC (Bld) 24.6 % Normal 20.5-60.0 [facility] Comment on above: Performed By: #### C BC ####[facility] [address] [place] [address]Dr. Marcell Coates MANUAL DIFF REQ NO Normal [facility] Comment on above: Performed By: #### C BC ####[facility] O[address]rjwfgdz[address] [place] [phone]. Marcell Coates MCH (RBC) [Entitic mass] 29.9 pg Normal 26.7-34.0 [facility] Comment on above: Performed By: #### C BC ####[facility] [address]viu[address] [address]Dr. Marcell Coates MCHC (RBC) [Mass/Vol] 33.0 g/dL Normal 29.9-35.2 The [facility] Comment on above: Performed By: #### C BC ####[facility] Ebkwjqihce[address] [place], [place] [address]Dr. Marcell Coates MCV (RBC) [Entitic vol] 90.9 fL Normal 81.0-99.0 [facility] Comment on above: Performed By: #### C BC ####[facility] Jhyhuscjwx[address] [place], [place] [address]DrSherrie Coates MONO # 1.2 103/ul Critically high 0.3-0.8 [facility] Comment on above: Performed By: #### C BC ####[facility] Jprqzcymrg[address] [place], [place] [address]Dr. Marcell Coates Monocytes/100 WBC (Bld) 9.1 % Normal 1.7-12.0 The [facility] Comment on above: Performed By: #### C BC ####[facility] Z[address]xsu[address] [place], [place] [address]DrSherrie Coates NEUT # 7.9 103/ul Critically high 1.4-6.5 [facility] Comment on above: Performed By: #### C BC ####[facility] U[address]bxbabx[address] [place], [place] [address]DrSherrie Coates Neutrophils/100 WBC (Bld) 60.6 % Normal 43.0-75.0 [facility] Comment on above: Performed By: #### C BC ####[facility] [address] [place] [phone]. Marcell Coates Platelet mean volume (Bld) [Entitic vol] 10.2 fL Normal 9.5-13.5 [facility] Comment on above: Performed By: #### C BC ####[facility] [address]ls[address]hm[address] [place], [place] [address]As. Marcell Coates PLT 284 103/ul Normal 150-450 [facility] Comment on above: Performed By: #### C BC ####[facility] [address]wv[address] [place] [phone]. Marcell Coates RBC 4.81 106/ul Normal 4.20-5.40 [facility] Comment on above: Performed By: #### C BC ####[facility] Gomsaku[address] [place] [phone]. Marcell Coates WBC 13.0 103/ul Critically high 4.0-11.0 [facility] Comment on above: Performed By: #### C BC ####[facility] [address]xdkmr[address] [place] [phone]. Marcell Coates CTA CHEST WO W CONon [...] LIOR JIANG Date: 2021-12-22 03:52 Normal The [facility] Covid-19 PCR (CVDTB)on SARS-CoV-2 (COVID-19) RNA RUSSELL+probe Ql (Unsp spec) Not detected Normal NOT DETECTED The [facility] Comment on above: Result Comment: When diagnostic [...] for this test is supported by the Manager Skilled of Health and Human Service's declaration that [...] By: #### L LENO STERN, CMP #### [facility] Laboratory [address] [place] [address] Dr. Marcell Coates INFLUENZA A AND B AGon 12-22 INFLUENZA A AG Negative Normal NEGATIVE SEE COMMENT The [facility] Comment on above: Performed By: #### I NFLUAB ####[facility] [address] [place] [address]Dr. Marcell Coates INFLUENZA B AG Negative Normal NEGATIVE SEE COMMENT The [facility] Comment on above: Performed By: #### I NFLUAB ####[facility] D[address]xtmmlzv[address] [place] [address]Dr. Marcell Coates INFLUPOSH SEE BELOW Normal The [facility] Comment on above: Result Comment: NOTE : Live attenuated influenzae vaccine viruses can cause a positive result for a rapid influenza diagnostic test if administered up to 7 days prior to rapid testing. Performed By: #### I NFLUAB ####[facility] [address]co[address] [place], [place] [address]Dr. Marcell Coates INFLUPOSHB SEE BELOW Normal The [facility] Comment on above: Result Comment: NOTE : Live attenuated influenzae vaccine viruses can cause a positive result for a rapid influenza diagnostic test if administered up to 7 days prior to rapid testing. Performed By: #### I NFLUAB ####[facility] Vbvgbavejl[address] [place], [place] [address]Dr. Marcell Coates INTERNAL CONTROLS Within Normal Limits Normal Wi thin Normal Limits The [facility] Comment on above: Performed By: #### I NFLUAB ####[facility] [address]muex[address] [place], [place] [address]Dr. Marcell Coates PROF CHEM 8 (BAS METB)on Anion gap [Moles/Vol] 14.3 mmol/L Normal [facility] Comment on above: Performed By: #### B MP #### [facility] Laboratory [address] [place] [address] Dr. Marcell Coates Calcium [Mass/Vol] 9.0 mg/dL Normal 8.5-10.1 [facility] Comment on above: Performed By: #### B MP #### [facility] Laboratory [address] [place] [address] Dr. Marcell Coates Chloride [Moles/Vol] 105 mmol/L Normal 98-107 The [facility] Comment on above: Performed By: #### B MP #### [facility] Laboratory [address] [place] [address] Dr. Marcell Coates CO2 [Moles/Vol] 24.6 mmol/L Normal 21.0-32.0 [facility] Comment on above: Performed By: #### B MP #### [facility] Laboratory [address] [address] [address] Marcell Coates Creatinine [Mass/Vol] 1.19 mg/dL Critically high 0.55-1.02 [facility] Comment on above: Performed By: #### B MP #### [facility] Laboratory [address] [address] [address] Marcell Coates EGFR-AF LIBERIAN 59 mL/min/1.73m2 Critically low >=60 [facility] Comment on above: Performed By: #### B MP #### [facility] Laboratory [address] [address] [address] Marcell Coates EGFR-NON AF LIBERIAN 48 mL/min/1.73m2 Critically low >=60 [facility] Comment on above: Performed By: #### B MP #### [facility] Laboratory [address] [address] [address] Marcell Coates Glucose [Mass/Vol] 124 mg/dL Critically high 74-106 [facility] Comment on above: Performed By: #### B MP #### [facility] Laboratory [address] [address] [address] Marcell Coates Potassium [Moles/Vol] 3.9 mmol/L Normal 3.5-5.1 [facility] Comment on above: Performed By: #### B MP #### [facility] Laboratory [address] [address] [address] Marcell Coates Sodium [Moles/Vol] 140 mmol/L Normal 136-145 [facility] Comment on above: Performed By: #### B MP #### [facility] Laboratory [address] [address] [address] Marcell Coates Urea nitrogen [Mass/Vol] 18.0 mg/dL Normal 7.0-18.0 [facility] Comment on above: Performed By: #### B MP #### [facility] Laboratory [address] [address] [address] Marcell Coates Urea nitrogen/Creatinine [Mass ratio] 15.1 mg/mg Normal [facility] Comment on above: Performed By: #### B MP #### [facility] Laboratory [id number] Marcell Coates XR CHEST 1 Von [...] LIOR JIANG Date: 2021-12-22 01:41 Normal The [facility] CBC AUTO DIFFon 11-07-2021 BASO # 0.1 103/ul Normal 0.0-0.1 [facility] Comment on above: Performed By: #### C BC ####[facility] [address] [place] [phone] Coates Basophils/100 WBC (Bld) 1.0 % Normal 0.2-2.0 The [facility] Comment on above: Performed By: #### C BC ####[facility] [address] [place] [phone]. Marcell Coates EO # 0.4 103/ul Normal 0.0-0.7 The [facility] Comment on above: Performed By: #### C BC ####[facility] [address]brvik[address] [place], [place] [address]QhSherrie Coates Eosinophils/100 WBC (Bld) 3.7 % Normal 0.9-7.0 The [facility] Comment on above: Performed By: #### C BC ####[facility] [address]re[address]xm[address] [place] [phone] Coates Erythrocyte distribution width (RBC) [Ratio] 13.8 % Normal 11.0-15.0 [facility] Comment on above: Performed By: #### C BC ####[facility] [address]rgk[address] [place] [address]Dr. Marcell Jaxon Hematocrit (Bld) [Volume fraction] 45.2 % Normal 36.0-48.0 [facility] Comment on above: Performed By: #### C BC ####[facility] [address] [place] [address]Dr. Marcell Coates Hemoglobin (Bld) [Mass/Vol] 15.2 g/dL Normal 12.0-16.0 [facility] Comment on above: Performed By: #### C BC ####[facility] [address]vtpliiuh[address] [place], [place] [address]Dr. Marcell Coates IG # 0.03 10e3/ul Normal 0.00-0.03 [facility] Comment on above: Performed By: #### C BC ####[facility] Abrenux[address] [place], [place] [address]Dr. Marcell Coates IG % 0.3 % Normal 0.0-0.5 [facility] Comment on above: Performed By: #### C BC ####[facility] U[address]vgrrrbiw[address] [place], [place] [address]DrSherrie Coates LYMPH # 4.0 103/ul Critically high 1.2-3.8 [facility] Comment on above: Performed By: #### C BC ####[facility] Nagwbrrx[address] [place], [place] [address]Dr. Marcell Coates Lymphocytes/100 WBC (Bld) 34.8 % Normal 20.5-60.0 The [facility] Comment on above: Performed By: #### C BC ####[facility] H[address] [place], [place] [address]DrSherrie Coates MANUAL DIFF REQ NO Normal [facility] Comment on above: Performed By: #### C BC ####[facility] [address]fhuq[address] [place], [place] [address]Dr. Marcell Coates MCH (RBC) [Entitic mass] 30.3 pg Normal 26.7-34.0 [facility] Comment on above: Performed By: #### C BC ####[facility] [address]wt[address] [place] [phone]. Marcell Jaxon MCHC (RBC) [Mass/Vol] 33.6 g/dL Normal 29.9-35.2 The [facility] Comment on above: Performed By: #### C BC ####[facility] [address]ke[address] [place] [phone]. Marcell Coates MCV (RBC) [Entitic vol] 90.2 fL Normal 81.0-99.0 [facility] Comment on above: Performed By: #### C BC ####[facility] [address] [place] [address]Dr. Marcell Coates MONO # 1.0 103/ul Critically high 0.3-0.8 [facility] Comment on above: Performed By: #### C BC ####[facility] G[address]wcy[address] [place] [address]Dr. Marcell Coates Monocytes/100 WBC (Bld) 8.7 % Normal 1.7-12.0 [facility] Comment on above: Performed By: #### C BC ####[facility] [address]hr[address]cpjy[address] [place], [place] [address]Dr. Marcell Coates NEUT # 5.9 103/ul Normal 1.4-6.5 [facility] Comment on above: Performed By: #### C BC ####[facility] [address]ogoexvj[address] [place], [place] [address]Dr. Marcell Coates Neutrophils/100 WBC (Bld) 51.5 % Normal 43.0-75.0 [facility] Comment on above: Performed By: #### C BC ####[facility] Ky[address] [place], [place] [id number] Coates Platelet mean volume (Bld) [Entitic vol] 9.7 fL Normal 9.5-13.5 [facility] Comment on above: Performed By: #### C BC ####[facility] [address]hsxs[address] [place] [phone]. Marcell Coates PLT 326 103/ul Normal 150-450 [facility] Comment on above: Performed By: #### C BC ####[facility] [address]vddo67[address] [place], [place] [address]Yp. Marcell Coates RBC 5.01 106/ul Normal 4.20-5.40 [facility] Comment on above: Performed By: #### C BC ####[facility] [address]fqfiqrn[address] [place], [place] [address]Vl. Marcell Coates WBC 11.4 103/ul Critically high 4.0-11.0 [facility] Comment on above: Performed By: #### C BC ####[facility] [address]gcm[address] [place], [place] [address]Uw. Mar[address] Co[address] CT HEAD WO CONon 11-07-2021 [...] CELINE KO Date: 2021-11-06 23:14 Normal [facility] PROF 14(COMP METB)on 022 Albumin [Mass/Vol] 4.1 g/dL Normal 3.4-5.0 [facility] Comment on above: Performed By: #### C MP ####[facility] [address]xccbnl30[address] [place], [place] [address]Lx. Marcell Coates Albumin/Globulin [Mass ratio] 1.1 {ratio} Normal [facility] Comment on above: Performed By: #### C MP ####[facility] J[address]zqkb[address] [place] [address]Dr. Marcell Coates ALP [Catalytic activity/Vol] 85 U/L Normal 46-116 [facility] Comment on above: Performed By: #### C MP ####[facility] Y[address]fqvkrrh[address] [place] [address]Dr. Marcell Jaxon ALT [Catalytic activity/Vol] 21 U/L Normal 14-59 [facility] Comment on above: Performed By: #### C MP ####[facility] Kj[address]cxc[address] [place], [place] [address]Dr. Marcell Coates Anion gap [Moles/Vol] 14.7 mmol/L Normal [facility] Comment on above: Performed By: #### C MP ####[facility] [address]iezwp[address] [place], [place] [address]Dr. Marcell Coates AST [Catalytic activity/Vol] 18 U/L Normal 15-37 [facility] Comment on above: Performed By: #### C MP ####[facility] Vpqcmspsuv[address] [place], [place] [address]Dr. Ansilvio Jaxon Bilirubin [Mass/Vol] 0.3 mg/dL Normal 0.2-1.0 [facility] Comment on above: Performed By: #### C MP ####[facility] Umphkofsvx[address] [place], [place] [address]Dr. Marcell Coates Calcium [Mass/Vol] 9.3 mg/dL Normal 8.5-10.1 [facility] Comment on above: Performed By: #### C MP ####[facility] [address]lpcdwgt[address] [place], [place] [address]Dr. Marcell Coates Chloride [Moles/Vol] 101 mmol/L Normal 98-107 [facility] Comment on above: Performed By: #### C MP ####[facility] [address]ztnx[address] [place] [address]Dr. Marcell Coates CO2 [Moles/Vol] 22.6 mmol/L Normal 21.0-32.0 [facility] Comment on above: Performed By: #### C MP ####[facility] X[address]qexj[address] [place] [phone]. Marcell Coates Creatinine [Mass/Vol] 1.25 mg/dL Critically high 0.55-1.02 [facility] Comment on above: Performed By: #### C MP ####[facility] [address]prgdns[address] [place] [phone]. Marcell Coates EGFR-AF LIBERIAN 55 mL/min/1.73m2 Critically low >=60 [facility] Comment on above: Performed By: #### C MP ####[facility] [address]otzipp[address] [place] [phone]. Marcell Jaxon EGFR-NON AF LIBERIAN 46 mL/min/1.73m2 Critically low >=60 [facility] Comment on above: Performed By: #### C MP ####[facility] [address]xldcid[address] [place] [phone]. Marcell Jaxon Globulin (S) [Mass/Vol] 3.6 g/dL Normal [facility] Comment on above: Performed By: #### C MP ####[facility] [address]strnajy[address] [place] [phone]. Marcell Jaxon Glucose [Mass/Vol] 107 mg/dL Critically high 74-106 T [facility] Comment on above: Performed By: #### C MP ####[facility] [address]xgifv[address] [place] [phone]. Marcell Jaxon Potassium [Moles/Vol] 3.3 mmol/L Critically low 3.5-5.1 [facility] Comment on above: Performed By: #### C MP ####[facility] [address]zmp[address] [place] [phone]. Marcell Jaxon Protein [Mass/Vol] 7.7 g/dL Normal 6.4-8.2 [facility] Comment on above: Performed By: #### C MP ####[facility] [address]iyfxahn[address] [place] [phone]. Ansilvio Coates Sodium [Moles/Vol] 135 mmol/L Critically low 136-145 [facility] Comment on above: Performed By: #### C MP ####[facility] [address]btxluv[address] [place] [address]Dr. Marcell Coates Urea nitrogen [Mass/Vol] 20.0 mg/dL Critically high 7.0-18.0 [facility] Comment on above: Performed By: #### C MP ####[facility] [address]zfw[address] [place] [address]Dr. Marcell Coates Urea nitrogen/Creatinine [Mass ratio] 16.0 mg/mg Normal [facility] Comment on above: Performed By: #### C MP ####[facility] Fdvqjxwuvm[address] [place] [address]Dr. Marcell Coates CBC AUTO DIFFon 09-14-2021 BASO # 0.0 103/ul Normal 0.0-0.1 [facility] Comment on above: Performed By: #### L LENO STERN, CMP #### [facility] Laboratory [address] [address] [address] Marcell Coates Basophils/100 WBC (Bld) 0.1 % Critically low 0.2-2.0 [facility] Comment on above: Performed By: #### L LENO STERN, CMP #### [facility] Laboratory [address] [place] [address] Dr. Marcell Coates EO # 0.0 103/ul Normal 0.0-0.7 [facility] Comment on above: Performed By: #### L LENO STERN, CMP #### [facility] Laboratory [address] [address] [address] Marcell Coates Eosinophils/100 WBC (Bld) 0.0 % Critically low 0.9-7.0 [facility] Comment on above: Performed By: #### L LENO STERN, CMP #### [facility] Laboratory [address] [place] [address] Dr. Marcell Coates Erythrocyte distribution width (RBC) [Ratio] 12.8 % Normal 11.0-15.0 [facility] Comment on above: Performed By: #### L LENO STERN, CMP #### [facility] Laboratory [address] [place] [address] Dr. Marcell Coates Hematocrit (Bld) [Volume fraction] 40.8 % Normal 36.0-48.0 [facility] Comment on above: Performed By: #### L LENO STERN, CMP #### [facility] Laboratory [address] [place] [address] Dr. Marcell Coates Hemoglobin (Bld) [Mass/Vol] 13.2 g/dL Normal 12.0-16.0 [facility] Comment on above: Performed By: #### L LENO STERN, CMP #### [facility] Laboratory [address] [place] [address] Dr. Marcell Coates IG # 0.07 10e3/ul Critically high 0.00-0.03 [facility] Comment on above: Performed By: #### L LENO STERN, CMP #### [facility] Laboratory [address] [place] [address] Dr. Marcell Coates IG % 0.6 % Critically high 0.0-0.5 [facility] Comment on above: Performed By: #### L LENO STERN, CMP #### [facility] Laboratory [address] [place] [address] Dr. Marcell Coates LYMPH # 1.6 103/ul Normal 1.2-3.8 The [facility] Comment on above: Performed By: #### L LENO STERN, CMP #### [facility] Laboratory [address] [place] [address] Dr. Marcell Coates Lymphocytes/100 WBC (Bld) 14.3 % Critically low 20.5-60.0 [facility] Comment on above: Performed By: #### L LENO STERN, CMP #### [facility] Laboratory [address] [place] [address] Dr. Marcell Coates MANUAL DIFF REQ NO Normal [facility] Comment on above: Performed By: #### L LENO STERN, CMP #### [facility] Laboratory [address] [place] [address] Dr. Marcell Coates MCH (RBC) [Entitic mass] 29.8 pg Normal 26.7-34.0 [facility] Comment on above: Performed By: #### L LENO STERN, CMP #### [facility] [address] [address] [address] Marcell Coates MCHC (RBC) [Mass/Vol] 32.4 g/dL Normal 29.9-35.2 The [facility] Comment on above: Performed By: #### L IPA, LENO, CMP #### [facility] Laboratory [address] [place] [address] Dr. Marcell Coates MCV (RBC) [Entitic vol] 92.1 fL Normal 81.0-99.0 The [facility] Comment on above: Performed By: #### L IPA, LENO, CMP #### [facility] Laboratory [address] [place] [address] Dr. Marcell Coates MONO # 0.3 103/ul Normal 0.3-0.8 The [facility] Comment on above: Performed By: #### L IPA, LENO, CMP #### [facility] Laboratory [address] [place] [address] Dr. Marcell Coates Monocytes/100 WBC (Bld) 2.4 % Normal 1.7-12.0 [facility] Comment on above: Performed By: #### L IPA, LENO, CMP #### [facility] Laboratory [address] [place] [address] Dr. Marcell Coates NEUT # 9.3 103/ul Critically high 1.4-6.5 [facility] Comment on above: Performed By: #### L IPA, LENO, CMP #### [facility] [address] [place] [address] Dr. Marcell Coates Neutrophils/100 WBC (Bld) 82.6 % Critically high 43.0-75.0 The [facility] Comment on above: Performed By: #### L IPA, LENO, CMP #### [facility] [address] [place] [address] Dr. Marcell Coates Platelet mean volume (Bld) [Entitic vol] 9.8 fL Normal 9.5-13.5 [facility] Comment on above: Performed By: #### L IPA, LENO, CMP #### [facility] [address] [place] [address] Dr. Marcell Coates PLT 292 103/ul Normal 150-450 [facility] Comment on above: Performed By: #### L LENO STERN, CMP #### [facility] [address] [place] [address] Dr. Marcell Coates RBC 4.43 106/ul Normal 4.20-5.40 [facility] Comment on above: Performed By: #### L LENO STERN, CMP #### [facility] [address] [place] [address] Dr. Marcell Coates WBC 11.3 103/ul Critically high 4.0-11.0 [facility] Comment on above: Performed By: #### L LENO STERN, CMP #### [facility] [address] [place] [address] Dr. Marcell Coates PROF CHEM 8 (BAS METB)on Anion gap [Moles/Vol] 13.8 mmol/L Normal [facility] Comment on above: Performed By: #### B MP #### [facility] [address] [place] [address] Dr. Marcell Coates Calcium [Mass/Vol] 8.9 mg/dL Normal 8.5-10.1 [facility] Comment on above: Performed By: #### B MP #### [facility] [address] [place] [address] Dr. Marcell Coates Chloride [Moles/Vol] 102 mmol/L Normal 98-107 The [facility] Comment on above: Performed By: #### B MP #### [facility] Laboratory [address] [place] [address] Dr. Marcell Coates CO2 [Moles/Vol] 24.3 mmol/L Normal 21.0-32.0 [facility] Comment on above: Performed By: #### B MP #### [facility] Laboratory [address] [place] [address] Dr. Marcell Coates Creatinine [Mass/Vol] 1.15 mg/dL Critically high 0.55-1.02 [facility] Comment on above: Performed By: #### B MP #### [facility] [address] [place] [address] Dr. Marcell Coates EGFR-AF LIBERIAN >60 Normal >=60 [facility] Comment on above: Performed By: #### B MP #### [facility] Laboratory [address] [address] [address] Marcell Coates EGFR-NON AF LIBERIAN 50 mL/min/1.73m2 Critically low >=60 [facility] Comment on above: Performed By: #### B MP #### [facility] [address] [address] [address] Marcell Coates Glucose [Mass/Vol] 317 mg/dL Critically high 74-106 T [facility] Comment on above: Performed By: #### B MP #### [facility] [address] [address] [address] Marcell Coates Potassium [Moles/Vol] 4.1 mmol/L Normal 3.5-5.1 [facility] Comment on above: Performed By: #### B MP #### [facility] [address] [address] [address] Marcell Coates Sodium [Moles/Vol] 136 mmol/L Normal 136-145 [facility] Comment on above: Performed By: #### B MP #### [facility] [address] [address] [address] Marcell Coates Urea nitrogen [Mass/Vol] 25.0 mg/dL Critically high 7.0-18.0 [facility] Comment on above: Performed By: #### B MP #### [facility] [address] [address] [address] Marcell Coates Urea nitrogen/Creatinine [Mass ratio] 21.7 mg/mg Normal [facility] Comment on above: Performed By: #### B MP #### [facility] [id number] Marcell Coates CBC AUTO DIFFon 09-13-2021 BASO # 0.1 103/ul Normal 0.0-0.1 [facility] Comment on above: Performed By: #### C BC ####[facility] [address] [address]Dr. Marcell Coates Basophils/100 WBC (Bld) 0.8 % Normal 0.2-2.0 [facility] Comment on above: Performed By: #### C BC ####[facility] [address] [place], [place] [address]Dr. Marcell Coates EO # 0.4 103/ul Normal 0.0-0.7 The [facility] Comment on above: Performed By: #### C BC ####[facility] [address] [place], [place] [address]Dr. Marcell Coates Eosinophils/100 WBC (Bld) 4.1 % Normal 0.9-7.0 The [facility] Comment on above: Performed By: #### C BC ####[facility] [address] [place], [place] [address]Dr. Marcell Coates Erythrocyte distribution width (RBC) [Ratio] 13.3 % Normal 11.0-15.0 The [facility] Comment on above: Performed By: #### C BC ####[facility] [address] [place], [place] [address]Dr. Marcell Coates Hematocrit (Bld) [Volume fraction] 41.5 % Normal 36.0-48.0 The [facility] Comment on above: Performed By: #### C BC ####[facility] [address] [place], [place] [address]Dr. Marcell Coates Hemoglobin (Bld) [Mass/Vol] 13.6 g/dL Normal 12.0-16.0 The [facility] Comment on above: Performed By: #### C BC ####[facility] [address] [place], [place] [address]Dr. Marcell Coates IG # 0.02 10e3/ul Normal 0.00-0.03 The [facility] Comment on above: Performed By: #### C BC ####[facility] [address] [place], [place] [address]Dr. Marcell Coates IG % 0.2 % Normal 0.0-0.5 The [facility] Comment on above: Performed By: #### C BC ####[facility] [address] [place], [place] [address]Dr. Marcell Coates LYMPH # 3.9 103/ul Critically high 1.2-3.8 [facility] Comment on above: Performed By: #### C BC ####[facility] [address] [address]Dr. Marcell Coates Lymphocytes/100 WBC (Bld) 37.9 % Normal 20.5-60.0 The [facility] Comment on above: Performed By: #### C BC ####[facility] [address] [place], [place] [address]Dr. Marcell Coates MANUAL DIFF REQ NO Normal [facility] Comment on above: Performed By: #### C BC ####[facility] [address] [place], [place] [address]Dr. Marcell Coates MCH (RBC) [Entitic mass] 30.2 pg Normal 26.7-34.0 The [facility] Comment on above: Performed By: #### C BC ####[facility] [address] [place], [place] [address]Dr. Marcell Coates MCHC (RBC) [Mass/Vol] 32.8 g/dL Normal 29.9-35.2 The [facility] Comment on above: Performed By: #### C BC ####[facility] [address] [place], [place] [address]Dr. Marcell Coates MCV (RBC) [Entitic vol] 92.2 fL Normal 81.0-99.0 The [facility] Comment on above: Performed By: #### C BC ####[facility] [address] [place], [place] [address]Dr. Marcell Coates MONO # 0.8 103/ul Normal 0.3-0.8 The [facility] Comment on above: Performed By: #### C BC ####[facility] [address] [place], [place] [address]Dr. Marcell Coates Monocytes/100 WBC (Bld) 8.1 % Normal 1.7-12.0 The [facility] Comment on above: Performed By: #### C BC ####[facility] [address] [place], [place] [address]Dr. Marcell Coates NEUT # 5.0 103/ul Normal 1.4-6.5 The [facility] Comment on above: Performed By: #### C BC ####[facility] [address] [id number]. Marcell Jaxon Neutrophils/100 WBC (Bld) 48.9 % Normal 43.0-75.0 The [facility] Comment on above: Performed By: #### C BC ####[facility] [address] [id number]. Marcell Coates Platelet mean volume (Bld) [Entitic vol] 9.5 fL Normal 9.5-13.5 The [facility] Comment on above: Performed By: #### C BC ####[facility] [address] [id number]. Marcell Coates PLT 288 103/ul Normal 150-450 The [facility] Comment on above: Performed By: #### C BC ####[facility] [address] [id number]. Marcell Coates RBC 4.50 106/ul Normal 4.20-5.40 The [facility] Comment on above: Performed By: #### C BC ####[facility] [address] [id number]. Marcell Coates WBC 10.2 103/ul Normal 4.0-11.0 The [facility] Comment on above: Performed By: #### C BC ####[facility] [address] [id number]. Marcell Coates CRPon 09-13-2021 CRP 1.0 mg/dL Normal <=1.0 The [facility] Comment on above: Performed By: #### L IPA, LENO, CMP #### [facility] Laboratory [id number] Marcell Coates Covid-19 PCR (CVDTB)on 08-17 SARS-CoV-2 (COVID-19) RNA RUSSELL+probe Ql (Unsp spec) Not detected Normal NOT DETECTED The [facility] Comment on above: Result Comment: When diagnostic [...] for this test is supported by the Manager Skilled of Health and Human Service's declaration that [...] By: #### L LENO STERN CMP #### [facility] Laboratory [address] [place] [address] Dr. Marcell Coates GLYCOHEMOGLOBIN A1Con 2021 ADA RECOMMENDATION SEE BELOW Normal [facility] Comment on above: Result Comment: ADA RECOMMENDED LIMIT 4.0 - 6.0 ADA THERAPEUTIC TARGET < 7.0 ACTION SUGGESTED > 7.0 Performed By: #### B MP #### [facility] Laboratory [address] [place] [address] Dr. Marcell Coates Glucose [Mass/Vol] 128 mg/dL Normal [facility] Comment on above: Performed By: #### B MP #### [facility] Laboratory [address] [place] [address] Dr. Marcell Coates HbA1c (Bld) [Mass fraction] 6.1 % Normal 4.5-6.2 [facility] Comment on above: Performed By: #### B MP #### [facility] Laboratory [address] [place] [address] Dr. Marcell Coates PROF CHEM 8 (BAS METB)on Anion gap [Moles/Vol] 13.5 mmol/L Normal [facility] Comment on above: Performed By: #### L LENO STERN, CMP #### [facility] Laboratory [address] [place] [address] Dr. Marcell Coates Calcium [Mass/Vol] 8.6 mg/dL Normal 8.5-10.1 [facility] Comment on above: Performed By: #### L LENO STERN, CMP #### [facility] Laboratory [address] [place] [address] Dr. Marcell Coates Chloride [Moles/Vol] 107 mmol/L Normal 98-107 [facility] Comment on above: Performed By: #### L LENO STERN, CMP #### [facility] Laboratory [address] [place] [address] Dr. Marcell Coates CO2 [Moles/Vol] 25.5 mmol/L Normal 21.0-32.0 [facility] Comment on above: Performed By: #### L LENO STENR, CMP #### [facility] Laboratory [address] [place] [address] Dr. Marcell Coates Creatinine [Mass/Vol] 1.25 mg/dL Critically high 0.55-1.02 [facility] Comment on above: Performed By: #### L LENO STERN, CMP #### [facility] Laboratory [address] [place] [address] Dr. Marcell Coates EGFR-AF LIBERIAN 58 mL/min/1.73m2 Critically low >=60 [facility] Comment on above: Performed By: #### L LENO STERN, CMP #### [facility] Laboratory [address] [place] [address] Dr. Marcell Coates EGFR-NON AF LIBERIAN 47 mL/min/1.73m2 Critically low >=60 [facility] Comment on above: Performed By: #### L LENO STERN, CMP #### [facility] Laboratory [address] [place] [address] Dr. Marcell Coates Glucose [Mass/Vol] 154 mg/dL Critically high 74-106 [facility] Comment on above: Performed By: #### L LENO STERN, CMP #### [facility] Laboratory [address] [place] [address] Dr. Marcell Coates Potassium [Moles/Vol] 4.0 mmol/L Normal 3.5-5.1 [facility] Comment on above: Performed By: #### L LENO STERN, CMP #### [facility] [address] [address] [address] Marcell Coates Sodium [Moles/Vol] 142 mmol/L Normal 136-145 [facility] Comment on above: Performed By: #### L LENO STERN, CMP #### [facility] [address] [address] [address] Marcell Coates Urea nitrogen [Mass/Vol] 18.0 mg/dL Normal 7.0-18.0 [facility] Comment on above: Performed By: #### L LENO STERN, CMP #### [facility] [address] [address] [address] Marcell Coates Urea nitrogen/Creatinine [Mass ratio] 14.4 mg/mg Normal [facility] Comment on above: Performed By: #### L LENO STERN, CMP #### [facility] [address] [place] [address] Dr. Marcell Coates [facility] SED RATE 16 mm/hr Normal <=20 [facility] Comment on above: Performed By: #### L LENO STERN, CMP #### [facility] Laboratory [address] [place] [address] Dr. Marcell Coates XR HIP RT 2 [...] by: EDDY MELGOZA Date: 2021-09-13 05:33 Normal [facility] XR LSPINE 2_3 VIEWSon 2021 XR LSPINE [...] LIZANDRO PENDLETON Date: 2021-09-13 07:37 Normal [facility] CBC W/DIFFon 08-09-2020 BASOPHILS ABS AUTO [facility] 0.1 x10E3/uL Normal 0.0-0.2 [facility] Comment on above: Performed By: #### L AB293, LAB17 #### [facility] 1 , BASOPHILS RELATIVE AUTO [facility] 1 % Normal Not Estab. [facility] Comment on above: Performed By: #### L AB293, LAB17 #### [facility] 1 , Eosinophils (Bld) [#/Vol] 0.2 10*3/uL Normal 0.0-0.4 [facility] Comment on above: Performed By: #### L AB293, LAB17 #### [facility] 1 , Eosinophils/100 WBC (Bld) 3 % Normal Not Estab. [facility] Comment on above: Performed By: #### L AB293, LAB17 #### [facility] 1 , Erythrocyte distribution width (RBC) [Ratio] 11.9 % Normal 11.7-15.4 [facility] Comment on above: Performed By: #### L AB293, LAB17 #### [facility] 1 , Hematocrit (Bld) [Volume fraction] 43.8 % Normal 34.0-46.6 [facility] Comment on above: Performed By: #### L AB293, LAB17 #### [facility] 1 , HEMOGLOBIN [facility] 14.9 g/dL Normal 11.1-15.9 [facility] Comment on above: Performed By: #### L AB293, LAB17 #### [facility] 1 , IMMATURE GRANS (ABS) 0.0 x10E3/uL Normal 0.0-0.1 [facility] Comment on above: Performed By: #### L [id number], LAB17 #### [facility] 1 , Immature granulocytes/100 WBC (Bld) 0 % Normal Not Estab. [facility] Comment on above: Performed By: #### L AB293, LAB17 #### [facility] 1 , Lymphocytes (Bld) [#/Vol] 2.4 10*3/uL Normal 0.7-3.1 [facility] Comment on above: Performed By: #### L AB293, LAB17 #### [facility] 1 , Lymphocytes/100 WBC (Bld) 26 % Normal Not Estab. [facility] Comment on above: Performed By: #### L AB293, LAB17 #### [facility] 1 , MCH (RBC) [Entitic mass] 31.2 pg Normal 26.6-33.0 [facility] Comment on above: Performed By: #### L AB293, LAB17 #### [facility] 1 , MCHC (RBC) [Mass/Vol] 34.0 g/dL Normal 31.5-35.7 [facility] Comment on above: Performed By: #### L [id number], LAB17 #### [facility] 1 , MCV [facility] 92 fL Normal 79-97 [facility] Comment on above: Performed By: #### L AB293, LAB17 #### [facility] 1 , Monocytes (Bld) [#/Vol] 0.5 10*3/uL Normal 0.1-0.9 [facility] Comment on above: Performed By: #### L AB293, LAB17 #### [facility] 1 , Monocytes/100 WBC (Bld) 6 % Normal Not Estab. [facility] Comment on above: Performed By: #### L AB293, LAB17 #### [facility] 1 , NEUTROPHIL ABS AUTO [facility] 6.1 x10E3/uL Normal 1.4-7.0 [facility] Comment on above: Performed By: #### L AB293, LAB17 #### [facility] 1 , NEUTROPHILS RELATIVE AUTO [facility] 64 % Normal Not Estab. [facility] Comment on above: Performed By: #### L AB293, LAB17 #### [facility] 1 , PLATELET COUNT [facility] 336 x10E3/uL Normal 150-450 [facility] Comment on above: Performed By: #### L [id number], LAB17 #### [facility] 1 , RED BLOOD CELL COUNT [facility] 4.77 x10E6/uL Normal 3.77-5.28 [facility] Comment on above: Performed By: #### L AB293, LAB17 #### [facility] 1 , WBC (Bld) [#/Vol] 9.4 10*3/uL Normal 3.4-10.8 [facility] Comment on above: Performed By: #### L [id number], LAB17 #### [facility] 1 , COMPREHENSIVE METABOLIC PANE Bulmaro 08-09-2020 Albumin [Mass/Vol] 4.8 g/dL Normal 3.8-4.8 [facility] Comment on above: Order Comment: Relea se to patient->Immediate Performed By: #### L [id number], LAB17 #### [facility] 1 , Albumin/Globulin [Mass ratio] 1.7 {ratio} Normal 1.2-2.2 [facility] Comment on above: Order Comment: Relea se to patient->Immediate Performed By: #### L [id number], LAB17 #### [facility] 1 , ALP [Catalytic activity/Vol] 74 U/L Normal 48-121 [facility] Comment on above: Order Comment: Relea se to patient->Immediate Result Comment: Pl ease note reference interval change Performed By: #### L [id number], [id number] #### [facility] , ALT [Catalytic activity/Vol] 13 U/L Normal 0-32 [facility] Comment on above: Order Comment: Relea se to patient->Immediate Result Comment: Perf ormed At: [address] [facility] [address] [id number] Aletha Menendez PhD [id number] Performed By: #### L AB293, LAB17 #### [facility] , AST [Catalytic activity/Vol] 17 U/L Normal 0-40 [facility] Comment on above: Order Comment: Relea se to patient->Immediate Performed By: #### L AB293, LAB17 #### [facility] , Bilirubin [Mass/Vol] 0.2 mg/dL Normal 0.0-1.2 [facility] Comment on above: Order Comment: Relea se to patient->Immediate Performed By: #### L AB293, LAB17 #### [facility] , Calcium [Mass/Vol] 9.9 mg/dL Normal 8.7-10.2 [facility] Comment on above: Order Comment: Relea se to patient->Immediate Performed By: #### L AB293, LAB17 #### [facility] , Chloride [Moles/Vol] 102 mmol/L Normal 96-106 [facility] Comment on above: Order Comment: Relea se to patient->Immediate Performed By: #### L AB293, LAB17 #### [facility] , CO2 [Moles/Vol] 22 mmol/L Normal 20-29 [facility] Comment on above: Order Comment: Relea se to patient->Immediate Performed By: #### L AB293, LAB17 #### [facility] , Creatinine [Mass/Vol] 0.85 mg/dL Normal 0.57-1.00 [facility] Comment on above: Order Comment: Relea se to patient->Immediate Performed By: #### L AB293, LAB17 #### [facility] , EGFR IF NONAFRICN AM 82 mL/min/1.73 Normal >59 [facility] Comment on above: Order Comment: Relea se to patient->Immediate Performed By: #### L AB293, LAB17 #### [facility] , GFR/1.73 sq M.predicted among blacks MDRD (S/P/Bld) [Vol rate/Area] 94 mL/min/{1.73_m2} Normal >59 [facility] Comment on above: Order Comment: Relea se to patient->Immediate Result Comment: [facility] currently reports eGFR in compliance with the current recommendations of the [employer]. [facility] will update reporting as new guidelines are published from the NKF-ASN Task force. Performed By: #### L AB293, LAB17 #### [facility] , Globulin (S) [Mass/Vol] 2.9 g/dL Normal 1.5-4.5 [facility] Comment on above: Order Comment: Relea se to patient->Immediate Performed By: #### L AB293, LAB17 #### [facility] , Glucose [Mass/Vol] 91 mg/dL Normal 65-99 [facility] Comment on above: Order Comment: Relea se to patient->Immediate Performed By: #### L AB293, LAB17 #### [facility] , Potassium [Moles/Vol] 4.2 mmol/L Normal 3.5-5.2 [facility] Comment on above: Order Comment: Relea se to patient->Immediate Performed By: #### L AB293, LAB17 #### [facility] , Protein [Mass/Vol] 7.7 g/dL Normal 6.0-8.5 [facility] Comment on above: Order Comment: Relea se to patient->Immediate Performed By: #### L AB293, LAB17 #### [facility] , Sodium [Moles/Vol] 139 mmol/L Normal 134-144 [facility] Comment on above: Order Comment: Relea se to patient->Immediate Performed By: #### L AB293, LAB17 #### [facility] , Urea nitrogen [Mass/Vol] 14 mg/dL Normal 6-24 [facility] Comment on above: Order Comment: Relea se to patient->Immediate Performed By: #### L AB293, LAB17 #### [facility] , Urea nitrogen/Creatinine [Mass ratio] 16 mg/mg Normal 9-23 [facility] Comment on above: Order Comment: Relea se to patient->Immediate Performed By: #### L AB293, LAB17 #### [facility] , Encounters Encounter Date Encounter Type Care Provider Facility Start: 06-16-2023 End: 06-17-2023 ambulatory Kendrick Aguilar MD Facility:[facility] Start: 05-26-2023 End: 05-27-2023 ambulatory JAMAR CARUSO [facility] Start: 05-16-2023 End: 06-16-2023 ambulatory JAMAR CARUSO [facility] Start: 05-14-2023 End: 05-15-2023 ambulatory JOSI OSUNA [facility] Start: 05-08-2023 End: 05-09-2023 ambulatory TYRON GRANDA [facility] Start: 05-07-2023 Refill Josi Osuna MD Work Phone: [facility] Start: 05-01-2023 End: 05-16-2023 Orders Only Josi Osuna MD Work Phone: [facility] Comment on above: Encounter for screen ing mammogram for malignant neoplasm of breast (Primary Dx) Start: 04-03-2023 Refill Hiro Kaba RN [facility] Start: 03-06-2023 Refill Josi Osuna MD Work Phone: [facility] Comment on above: Primary hypertension ; Combined systolic and diastolic congestive heart failure, unspecified HF chronicity (CMS-HCC); Acute combined systolic and diastolic congestive heart failure ([facility]-HCC); Cardiomegaly Start: 07-29-2022 End: 07-29-[address] ALISHA GALVEZ . Facility:[facility] Start: 07-15-2022 End: 07-15-2022 ambulatory ROBERT PORTILLO Facility:[facility] Start: 07-10-2022 ambulatory EDILSON~[id number] [facility] Start: 06-18-2022 End: 06-19-[address] ALISHA GALVEZ . Facility:[facility] Start: 06-14-2022 ambulatory EDILSON~[id number] PIERSON PIERSON [facility] Start: 06-14-2022 End: 06-14-[address] ALISHA GALVEZ . Facility:[facility] Start: 06-09-2022 End: 06-09-2022 ambulatory PENNY MASON . Facility:[facility] Start: 05-14-2022 [facility][id number] [facility] Start: 05-11-2022 End: 05-11-[address] ISACC SABA Facility:[facility] Start: 04-22-2022 End: 04-22-[address] YOLIS ARDON . Facility:[facility] Start: 04-03-2022 End: 04-03-2022 ambulatory ROBERTTANYA PORTILLO Facility:[facility] Start: 01-22-2022 End: 01-22-2022 ambulatory [...] for malign ant neoplasm of breast Mammogram [facility] Start: 02-02-2024 Tobacco Counseling Tobacco Counselin g [facility] Start: 11-29-2023 Adult BMI Screening Adult BMI Screen ing [facility] Start: 11-29-2023 Tobacco Screening Tobacco Screening [facility] Start: 09-15-2023 Depression Screening Depression Scre ening [facility] Start: 06-16-2023 End: 06-16-2023 Patient encounter procedure 06/16/2023 3:00 PM EDT Office Visit [facility] [address] [place] [address] [place] [address] Anusha Roberto MD [address] [facility] [address] [place] [address] [facility] Start: 05-14-2023 End: 05-14-2023 Patient encounter procedure 05/14/2023 3:15 PM EST Appointment [facility] - M[facility] DEXA [address] [place] [address] [facility] Start: 05-12-2023 End: 05-12-2023 Patient encounter procedure 05/12/2023 2:45 PM EST [facility] [address] [place] [id number] Arrived [facility] Comment on above: Arrived Start: 05-08-2023 Subsequent hospital visit by physician [facility] Start: 05-01-2023 End: 05-01-2024 DBT Breast - bilateral screening Mammography screening bilateral with CAD Imaging Routine Encounter for screening mammogram for malignant neoplasm of breast Expected: 05/01/2023, Expires: 05/01/2024 Shilo Work Phone: Comment on above: Expected: 05/01/2023 , Expires: 05/01/2024 Start: 03-31-2023 End: 03-31-2023 Patient encounter procedure 03/31/2023 11:00 AM EST Office Visit [facility] [address] [place] [id number] Tyron Granda, JOHANA [address] Julien Wh[address] [address] [facility] Start: 03-24-2023 End: 03-24-2023 Patient encounter procedure [facility] Start: 11-15-2022 COVID-19 Vaccine ( season) COVID-19 Vaccine ( season) [facility] Start: 11-15-2022 Influenza vaccination Influenza Vacc ine [facility] Start: 05-26-1991 Adult BMI Follow Up Plan Adult BMI Follow Up Plan [facility] Start: 1984 DTaP,Tdap and Td Vaccines (5 - Tdap) DTaP,Tdap and Td Vaccines (5 - Tdap) [facility] Immunizations Immunization Date Immunization Notes Care Provider Fa cility 05-15-2021 influenza, seasonal, injectable Josi Osuna MD Work Phone: [facility] 05-15-2021 influenza virus vaccine, unspecified formulation Josi Osuna MD Work Phone: [facility] 01-02-2021 Influenza, injectabl e, Madin Fernanda Canine Kidney, quadrivalent with preservative Josi Osuna MD Work Phone: [facility] 11-14-2020 COVID-19, mRNA, LNP- S, PF, 30mcg/0.3mL Dose Josi Osuna MD Work Phone: [facility] 11-26-2018 influenza, injectabl e, quadrivalent, preservative free Josi Osuna MD Work Phone: [facility] 12-03-2007 hepatitis B vaccine, adult dosage Josi Osuna MD Work Phone: [facility] 08-27-2007 hepatitis B vaccine, adult dosage Josi Osuna MD Work Phone: [facility] 07-27-2007 hepatitis B vaccine, adult dosage Josi Osuna MD Work Phone: [facility] 04-16-1982 measles, mumps and rubella virus vaccine Josi Osuna MD Work Phone: [facility] 10-31-1978 diphtheria, tetanus toxoids and pertussis vaccine Josi Osuna MD Work Phone: [facility] 10-31-1978 poliovirus vaccine, unspecified formulation Josi Osuna MD Work Phone: [facility] 12-01-1976 poliovirus vaccine, unspecified formulation Josi Osuna MD Work Phone: [facility] 07-05-1975 diphtheria, tetanus toxoids and pertussis vaccine Josi Osuna MD Work Phone: [facility] 07-05-1975 poliovirus vaccine, unspecified formulation Josi Osuna MD Work Phone: [facility] 09-29-1974 diphtheria, tetanus toxoids and pertussis vaccine Josi Osuna MD Work Phone: [facility] 09-29-1974 measles, mumps and rubella virus vaccine Josi Osuna MD Work Phone: [facility] 09-29-1974 poliovirus vaccine, unspecified formulation Josi Osuna MD Work Phone: [facility] 08-03-1974 diphtheria, tetanus toxoids and pertussis vaccine Josi Osuna MD Work Phone: [facility] 08-03-1974 poliovirus vaccine, unspecified formulation Josi Osuna MD Work Phone: [facility] Payers Date Payer Category Payer Unknown 2022 Medicaid [id number] 2022 Medicaid [place] [id number] 2022-Present [address] [place] [address] [id number] 1973 Unknown [id number] [id number] 1973 Unknown [id number] 2.16.840.1.474603.3.579.2.5 1973 Unknown [id number] 2.16.840.1.864963.3.579.2.5 1973 Unknown [id number] 2.16.840.1.221718.3.579.2.5 1973 Unknown [id number] 2.16.840.1.163389.3.579.2.5 1973 Unknown [id number] 2.16.840.1.528081.3.579.2.5 1973 Unknown [id number] 2.16.840.1.090553.3.579.2.5 1973 Unknown [id number] 2.16.840.1.684938.3.579.2.5 93 1973 Unknown [id number] 2.16.840.1.331009.3.579.2.5 93 1973 Unknown [id number] 2.16.840.1.711656.3.579.2.5 93 1973 Unknown [id number] 2.16.840.1.162036.3.579.2.5 93 1973 Unknown [id number] 2.16.840.1.341432.3.579.2.5 93 1973 Unknown [id number] 2.16.840.1.610389.3.579.2.1 286 1973 Unknown [id number] 2.16.840.1.187707.3.579.2.1 286 1973 Unknown [id number] 2.16.840.1.979902.3.579.2.1 286 1973 Unknown [id number] 2.16.840.1.640618.3.579.2.1 286 1973 Unknown [id number] 2.16.840.1.724199.3.579.2.1 286 1973 Unknown [id number] 2.16.840.1.051817.3.579.2.1 286 1973 Unknown [id number] 2.16.840.1.004937.3.579.2.1 1959 Unknown [id number] Private Health Insurance [id number] Social History Date Type Detail Facility Start: 08-22-2022 [facility] History of tobacco use Cigarette Smoker P [facility] Start: 08-22-2022 End: 11-28-2022 Cigarettes smoked current (pack per day) - Reported 0.5 [facility] Start: 08-22-2022 Tobacco use and exposure Smoke less tobacco non-user [facility] Start: 11-28-2022 Alcohol intake Lifetime non-d christina (finding) [facility] Start: 09-14-2022 End: 11-28-2022 Alcohol Use Disorder Identification Test - Consumption [AUDIT-C] [facility] How often to you hav e a drink containing alcohol? Never [facility] How many standard dr inks containing alcohol do you have on a typical day? Patient does not drink [facility] Start: 1975 Sex Assigned At Not on file P [facility] Goals Date Patient Goal Desired [...] were not included. documented in this encounter [facility] 04-03-2023 Telephone encount er Note Images from the original note were not included. [facility] 08-09-2020 Note Encounter Department : [facility] Progress Notes by REMBERTO Mcclellan at 08/09/2020 3:00 PM Author: REMBERTO McclellanService: -Author Type: Nurse Practitioner Filed: 08/09/2020 4:11 PMEncounter Date: 08/09/2020tatus: Signed Stamp Machine Servicer: REMBERTO Mcclellan (Nurse Practitioner) Karen Knight [address] [place] [address] : 45 y.o.: 1975Phone: (home) Encounter Date: 08/09/2020 Assessment Assessment and Plan: ICD-10-CM 1.Essential hypertension [id number] tartrate 37.5 mg Tab CBC W/DIFF Comprehensive Metabolic Panel Diagnoses and all orders for this visit: Essential hypertension (Primary) (Chronic) - metoprolol tartrate 37.5 mg Tab Dispense: 30 tablet; Refill: 6 - CBC W/DIFF - Comprehensive Metabolic Panel Will increase patient metoprolol to 37.5mg and have patient call in 2 week with an update. Will draw some labs in the office today. [facility] Evaluation as of 08/09/2020: -Determined Barrier: Inadequate [...] at visit Current Outpatient Medications Ordered in [facility] MedicationSigDispenseRefill -hydroCHLOROthiazide (HYDRODIURIL) 25 mg tabletTake 25 mg by mouth 2 times a day. -lisinopriL (ZESTRIL) 40 mg tabletTake 40 mg by mouth daily. -metoprolol tartrate 37.5 mg TabTake 37.5 mg by mouth 2 times a day.30 tablet6 -topiramate (TOPAMAX) 25 mg tabletTake 50 mg by mouth daily. No current [facility]-ordered facility-administered medications on file. No Known [...] necessary. Electronically Signed by: Landy SR 08/09/2020 [facility] 08-09-2020 Note Encounter Department : [facility] Progress Notes by REMBERTO Mcclellan at 08/09/2020 3:00 PM Author: REMBERTO McclellanService: -Author Type: Nurse Practitioner Filed: 08/10/2020 9:48 AMEncounter Date: 08/09/2020tatus: Signed Stamp Machine Servicer: REMBERTO Mcclellan (Nurse Practitioner) Please inform patient that her labs are all normal. Please inform her that her kidney function is back to normal [facility] 08-09-2020 Note Encounter Department : [facility] Progress Notes by Maci Holden CMA at 08/09/2020 3:00 PM Author: Maci Holden CMAService: -Author Type: Vice President Of Brand Management Filed: 08/10/2020 12:44 PMEncounter Date: 08/09/2020tatus: Signed Stamp Machine Servicer: Maci Holden CMA (Vice President Of Brand Management) Left VM for patient with results and advised to return call with questions or concerns. [facility] Evaluation note Diagnosis Primary hypertension Unspecified essential hypertension Combined systolic and diastolic congestive heart failure, unspecified HF chronicity (CMS-HCC) Acute combined systolic and diastolic congestive heart failure (CMS-HCC) Cardiomegaly documented in this encounter [facility]* Diagnosis Encounter for screening mammogram for malignant neoplasm of breast- Primary documented [facility] this [facility] System[facility]ructionsNot on filedocumented in this encounter [facility] SystemInstructionsNot on filedocumented in this encounter [facility] SystemInstructionsNot on filedocumented in this encounter [facility] SystemInstructionsNot on filedocumented in this encounter [facility] Summary Purpose Family History No Family [...] section and content) DATE CREATED AUTHOR 08/12/2020 [facility] DATE CREATED AUTHOR AUTHOR'S ORGANIZ ATION 07/11/2022 [facility] DATE CREATED AUTHOR AUTHOR'S ORGANIZ ATION 07/30/2022 [facility] DATE CREATED AUTHOR AUTHOR'S ORGANIZ ATION 06/16/2023 [facility] DATE CREATED AUTHOR AUTHOR'S ORGANIZ ATION 06/24/2023 [facility] Reason for Visit (unrecogniz ed section and content) Reason Comments Med Refill Reason Onset Date Comments Med Refill 04/03/2023 Care Teams (unrecognized sec tion and content) Door Cutter Relationship Specialty Start Date End Date Josi Osuna MD [address] [place] [address] PCP - General Internal Medicine 09/12/22 Door Cutter Relationship Specialty Start Date End Date Josi Osuna MD [address] [place] [address] PCP - General Internal Medicine 09/12/22 Door Cutter Relationship Specialty Start Date End Date Josi Osuna MD [address] [place] [address] PCP - General Internal Medicine 09/12/22 FOR [...] BE BASED ON THE PRIMARY CLINICAL RECORDS. [facility]. provides no warranty or guarantee of the accuracy or completeness of information in this document.
[2023-07-07 07:47] VITALS: BP 147/62; PULSE 75; TEMP 36.6; O2SAT 99
[2023-07-07] MEDS: 0.9 % SODIUM CHLORIDE 500 ML IV (08:04)
--- NOTE | 2023-07-07 08:49 | P.ON_ITS ---
Date of procedure: 07/07/23 Pre-op diagnosis: Lumbar stenosis with neurogenic claudication Post-op diagnosis: same as pre-op Procedure: Procedure: Right L3-4, L4-5 transforaminal epidural steroid injection Medications: Bupivacaine 0.25% 2cc, lidocaine 2% 1cc, dexamethasone 10mg The patient was seen and examined in the preoperative holding area.? Informed consent was obtained and placed on the chart.? Patient was brought to the medical procedure unit and placed in the prone position where a timeout was completed verifying the correct patient, procedure site, position, and planned special equipment using sterile aseptic technique.? Under direct fluoroscopic visualization a 25-gauge Quincke tipped spinal needle was advanced to the designated neural foramen where contrast dye was injected to show adequate spread.? The needle was inserted at level right L3-4. There was no evidence of vascular or adverse uptake.? Epidural spread was appreciated.? The above- mentioned injectate was then placed in a 1.5 mL aliquot preceded by negative aspiration.? The needle was removed. The needle was inserted and the procedure repeated at level right L4-5.? The surgery site was covered.? Patient was taken to the postprocedural recovery area and monitored for an appropriate length of time before found suitable for discharge in the accompaniment of a responsible adult. Anesthesia: MAC Surgeon: Kendrick Aguilar Pathology: none sent Condition: stable Disposition: no change
[2023-07-07] MEDS: BUPIVACAINE HCL 0.25% PF 25 MG/10 ML VIAL INJ (08:51)
[2023-07-07] MEDS: DEXAMETHASONE SOD PHOS 10 MG/ML VIAL INJ (08:51)
[2023-07-07] MEDS: 0.9 % SODIUM CHLORIDE 10 ML SYRINGE - SALINE FLUSH INJ (08:51)
[2023-07-07 08:52] VITALS: BP 162/91; PULSE 69; TEMP 36.8; O2SAT 97
[2023-07-07] MEDS: LIDOCAINE HCL 2% PF 100 MG/5 ML VIAL 3 ML INJ (08:52)
[2023-07-07] MEDS: IOHEXOL 240 MG/ML - 10 ML VIAL 24 MG INJ (08:52)
[2023-07-07 09:00] VITALS: BP 153/102; PULSE 71; TEMP 36.8; O2SAT 98
== END 2023-07-07 09:18 | disposition home or self-care (01) ==
PROVIDERS: Visit Provider Anesthesiology
PROC: (CPT 1992; principal; 2023-07-07 08:30)
DX: M48.062 Spinal stenosis, lumbar region with neurogenic claudication (principal)
CPT/HCPCS: 64483; 64484; J1100; J2704; Q9966

== ENCOUNTER 2024-03-15 20:29 | Emergency (ER) | payer MEDICAID, SELFPAY ==
[2024-03-15 20:34] VITALS: BP 136/93; PULSE 88; TEMP 36.4; O2SAT 97; BMI 39.9
--- OUTSIDE RECORDS SUMMARY | 2024-03-15 20:38 | XMS_ITS | CCD ---
Author Organization [facility] Informat ion Partnership [facility] Care Team Providers Care 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 Name Role Phone PIERSON EDILSON, [phone] PIERSON Attending Unavailable PIERSON EDILSON, EDILSON~[phone] PIERSON Primary Care Unavailable PIERSON EDILSON, [phone] PIERSON Attending Unavailable PIERSON EDILSON, EDILSON~[phone] PIERSON Primary Care Unavailable PIERSON EDILSON, EDILSON~[phone] PIERSON Primary Care Unavailable PIERSON EDILSON, [phone] PIERSON Attending Unavailable MIRELA, ALVA Primary Care [...] ROBERT Admitting Unavailable HAYLEE KILPATRICK Consulting Unavailable KIMBERLY NATHAN Consulting Unavailable LINDSEY, ROBERT Consulting Unavailable LINDSEY, [...] Care Unavailable DR SHARRI BERNARDO Attending Unavailable NADERER, DR SHARRI Briggs Admitting Unavailable BATTLET[place], DR LIZANDRO Ojeda Consulting Unavailable NADERER, DR SHARRI Briggs Consulting Unavailable LINDSEY, ROBERT Consulting Unavailable EDDY MELGOZA Consulting Unavailable MARKER ., DR BRITO Admitting Unavailable MARKER ., DR BRITO Attending Unavailable ZIEBER, DR JT Gao Consulting Unavailable MIRELA, ALVA [...] Mejia Josi CLAROS Primary Care Provider MEJIA, MUHAMID M Referring Unavailable MEJIA, MUHAMID M Primary Care Unavailable SHADYJAMAR Referring Unavailable MEJIA, MUHAMID M Primary Care Unavailable SHADYJAMAR Attending Unavailable SHADY, JAMAR M Referring Unavailable MEJIA, MUHAMID M Primary Care Unavailable SHADYJAMAR Referring Unavailable MEJIA, MUHAMID M Primary Care Unavailable TYRON WAGNER Referring Unavailable MEJIA, MUHAMID M Primary Care Unavailable TYRON WAGNER Referring Unavailable MEJIA, MUHAMID M Primary Care Unavailable DEWAYNE Hernadez Primary Care Provide r Ly, DO Natalie Gonzalez Attending Provider [phone] Claudine Jay Primary Care Provider LyDO Natalie Attending Provider DEWAYNE Hernadez Primary Care Provide r DEWAYNE Hernadez Referring Provider MD Fletcher Flores Attending Provider TRAVIS BOWSER Attending Unavailabl e JOSI BA Referring Unavailable SATYA, CLAUDINE C Primary Care Unavailable Ly, Natalie Gonzalez Admitting Unavailable Kastor, Claudine Isabell Referring Unavailab le Kastor, Claudine Isabell Primary Care Unavailab le LyNatalie Attending Unavailable Kastor, Claudine Isabell Primary Care Unavailab le Ly, Natalie Gonzalez Attending Unavailable Ly, Natalie Gonzalez Admitting Unavailable Kastor, Claudine Isabell Primary Care Unavailab le Fletcher Flores Attending Unavailab Fletcher Polk Admitting Unavailab le Duarte REMBERTO, Lesley Roldan Attending Darcy Waterman MD, Maged Kaplan Attending Estee Aguilar MD, Kendrick Reaves Attending Unavailable Lauren CLAROS, Kendrick Reaves Attending Unavailable Duarte REMBERTO, Lesley Roldan Attending Darcy Waterman MD, Maged Kaplan Attending Estee Waterman MD, Maged Kaplan Attending Estee perry Allergies Allergy Classification Reported Allergen(s) Allergy Type Date of Onset Reaction(s) Facility (17 sources) Codeine; Translations: [CODEINE] Drug Allergy 1 [address]axis [facility] Repository (1 source) Cephalexin Drug Allergy 2 [facility] Repository (14 sources) Cephalexin; Translations: [CEPHALEXIN] Drug Allergy 2 [facility] (1 source) Cephalexin Drug Allergy 4 [facility] Repository Medications Current Medications Medication Drug Class(es) Dates Sig (Normalized) Sig (Original) [id number] 200 actuat albuterol 0.09 mg/actuat metered dose inhaler (10 sources) beta2-Adrenergic Agonist Start: 05-12-2022 take 2 puff(s) by inhalation every four hours as needed VENTOLIN HFA 90 mcg/actuation inhaler 2 puffs every 4 (four) hours as needed. 05/12/2022 Active apixaban 5 mg oral tablet (11 sources) Factor Xa Inhibitor Start: 10-10-2023 End: 01-06-2024 take 1 tablet by mouth once daily Apixaban (Eliquis) 5 mg tablet Active 5 MG PO Daily November 06, 2023 12:00am Start: 11-28-2022 End: 04-03-2023 take 1 tablet by mouth in the morning, then take 1 tablet by mouth at bedtime apixaban (ELIQUIS) 5 mg tablet Take 1 tablet (5 mg total) by mouth in the morning and 1 tablet (5 mg total) before bedtime. 180 tablet 1 04/03/2023 Active aspirin 81 mg delayed release oral tablet (13 sources) Platelet Aggregation Inhibitor, Nonsteroidal Anti-inflammatory Drug Start: 11-06-2023 take 1 tablet by mouth once daily in the morning aspirin 81 mg take 1 tablet by mouth every morning 30 tablet 10 12/05/2023 Active Start: 09-16-2022 End: 04-03-2023 take 1 tablet by mouth in the morning aspirin 81 mg Take 1 tablet (81 mg total) by mouth in the morning. 90 tablet 2 04/03/2023 Active bumetanide 0.5 mg oral tablet (13 sources) Loop Diuretic Start: 01-14-2023 End: 03-09-2023 take 0.5 mg by mouth twice daily Bumetanide Active 0.5 MG PO Twice daily November 06, 2023 12:00am empagliflozin 10 mg oral tablet (13 sources) Sodium-Glucose Cotransporter 2 Inhibitor Start: 09-03-2022 End: 04-03-2023 take 1 tablet by mouth once daily Empagliflozin (Jardiance) 10 mg tablet Active 10 MG PO Daily November 06, 2023 12:00am famotidine 20 mg oral tablet (10 sources) Histamine-2 Receptor Antagonist Start: 06-14-2022 take 1 tablet by mouth in the morning, then take 1 tablet by mouth at bedtime famotidine (PEPCID) 20 mg tablet Take 1 tablet (20 mg total) by mouth in the morning and 1 tablet (20 mg total) before bedtime. 06/14/2022 Active 24 hr isosorbide mononitrate 30 mg extended release oral tablet (13 sources) Nitrate Vasodilator Start: 11-05-2023 End: 02-03-2024 take 1 tablet by mouth once daily isosorbide mononitrate (IMDUR) 30 mg 24 hr tablet Indications: Cardiomyopathy, unspecified type (CMS-HCC) TAKE 1 TABLET BY MOUTH ONCE DAILY 90 tablet 3 02/03/2024 Active Start: 01-14-2023 take 1 tablet by marisol th once daily isosorbide mononitrate (IMDUR) 30 mg 24 hr tablet Take 1 tablet (30 mg total) by mouth daily. 90 tablet 2 01/14/2023 Active losartan potassium 25 mg oral tablet (2 sources) Angiotensin 2 Receptor Polo Start: 01-06-2024 take 1 tablet by mouth in the morning losartan (COZAAR) 25 mg tablet Take 1 tablet (25 mg total) by mouth in the morning. 90 tablet 2 01/06/2024 Active osmotic 24 hr metFORMIN hydrochloride 500 mg extended release oral tablet (2 sources) Biguanide take 1 tablet by mouth once daily at breakfast metFORMIN (FORTAMET) 500 MG (OSM) 24 hr tablet Take 1 tablet (500 mg total) by mouth daily with breakfast. Active 24 hr metoprolol succinate 100 mg extended release oral tablet (13 sources) beta-Adrenergic Polo Start: 11-06-2023 take 100 mg by mouth once daily Metoprolol Succinate Active 100 MG PO Daily November 06, 2023 12:00am Start: 09-03-2022 End: 04-03-2023 take 1 tablet by mouth every twenty-four hours in the morning metoprolol succinate XL (TOPROL XL) 100 mg 24 hr tablet Take 1 tablet (100 mg total) by mouth in the morning. 90 tablet 1 04/03/2023 Active nystatin 100 unt/mg topical powder (10 sources) Polyene Antifungal Start: 08-28-2022 nystatin (MYCOSTATIN) powder Indications: Candidiasis of skin Apply 1 Application topically in the morning and 1 Application at noon and 1 Application in the evening and 1 Application before bedtime. 15 g 08/28/2022 Active omeprazole 40 mg delayed release oral capsule (13 sources) Proton Pump Inhibitor Start: 01-14-2023 End: 05-07-2023 take 40 mg by mouth once daily Omeprazole Active 40 MG PO Daily November 06, 2023 12:00am ondansetron 4 mg oral tablet (10 sources) Serotonin-3 Receptor Antagonist Start: 07-30-2022 take 1 tablet by mouth every six hours for nausea ondansetron (ZOFRAN) 4 mg tablet take 1 tablet by mouth every 6 hours if needed for nausea or vomiting 07/30/2022 Active pregabalin 100 mg oral capsule (2 sources) Start: 11-06-2023 take 100 mg by mouth once daily Pregabalin Active 100 MG PO Daily November 06, 2023 12:00am promethazine hydrochloride 12.5 mg oral tablet (10 sources) Phenothiazine Start: 11-08-2021 take 1 tablet by mouth every six hours as needed for nausea promethazine (PHENERGAN) 12.5 mg tablet Indications: Migraine without status migrainosus, not intractable, unspecified migraine type , Nausea Take 1 tablet (12.5 mg total) by mouth every 6 (six) hours as needed for nausea or vomiting. 30 tablet 11/08/2021 Active rosuvastatin calcium 10 mg oral tablet (12 sources) HMG-CoA Reductase Inhibitor Start: 11-06-2023 take 20 mg by mouth once daily Rosuvastatin Active 20 MG PO Daily November 06, 2023 12:00am Start: 08-15-2023 rosuvastatin ( CRESTOR) 10 mg tablet Indications: Primary hypertension , 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) , ASCVD (arteriosclerotic cardiovascular disease) , Dyslipidemia TAKE 2 TABLETS BY MOUTH EACH MORNING 60 tablet 10 08/15/2023 Active Start: 01-14-2023 take 2 tablets by mo uth in the morning rosuvastatin (CRESTOR) 10 mg tablet Indications: Primary hypertension , 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) , ASCVD (arteriosclerotic cardiovascular disease) , Dyslipidemia Take 2 tablets (20 mg total) by mouth in the morning. 90 tablet 3 01/14/2023 Active sacubitril 24 mg / valsartan 26 mg oral tablet (9 sources) Angiotensin 2 Receptor Polo Start: 09-15-2022 End: 01-06-2024 take 1 tablet by mouth in the morning sacubitriL-valsartan (ENTRESTO) 24-26 mg tablet Take 1 tablet by mouth in the morning and 1 tablet before bedtime. 180 tablet 1 04/03/2023 01/06/2024 Discontinued spironolactone 25 mg oral tablet (13 sources) Aldosterone Antagonist Start: 01-14-2023 End: 01-02-2024 take 1 tablet by mouth in the morning spironolactone (ALDACTONE) 25 mg tablet take 1 tablet by mouth in the morning 30 tablet 10 01/02/2024 Active Problems Active Problems Problem Classification Problem Date Documented Date Episodic/Chronic Abdominal pain (8 sources) Unspecified abdominal pain; Translations: [Epigastric pain] Onset: 06-14-2022 Episodic Aortic and peripheral arterial embolism or thrombosis (10 sources) Thrombosis of arteries of upper extremity; Translations: [Embolism and thrombosis of arteries of the upper extremities] Onset: 09-12-2022 09-14-2022 Chronic Chronic obstructive pulmonary disease and bronchiectasis (2 sources) Bronchitis, not specified as acute or chronic; Translations: [BRONCHITIS NOT SPEC ACUTE/CHRON] Onset: 12-24-2021 Episodic Congestive heart failure; nonhypertensive (20 sources) Heart failure, unspecified; Translations: [Congestive heart failure] Onset: 07-16-2022 03-06-2023 Chronic Coronary atherosclerosis and other heart disease (10 sources) Arteriosclerotic vascular disease; Translations: [Atherosclerotic heart disease of [place] coronary artery without angina pectoris] Onset: 09-12-2022 09-14-2022 Chronic Diabetes mellitus without complication (1 source) Prediabetes; Translations: [PREDIABETES] Onset: 07-16-2022 Episodic Disorders of lipid metabolism (10 sources) Dyslipidemia; Translations: [Hyperlipidemia, unspecified] Onset: 09-12-2022 09-12-2022 Chronic Esophageal disorders (10 sources) Gastroesophageal reflux disease; Translations: [Gastro-esophageal reflux disease without esophagitis] Onset: 06-08-2018 09-14-2022 Chronic Essential hypertension (16 sources) Essential (primary) hypertension; Translations: [Essential hypertension] [...] W/HEART FAIL] Onset: 07-16-2022 Chronic Mood disorders (10 sources) Depressive disorder; Translations: [Depression] Onset: 06-08-2018 11-08-2021 Chronic Nausea and vomiting (4 sources) Nausea with vomiting, unspecified; Translations: [NAUSEA WITH VOMITING UNSPECIFIED] Onset: 06-09-2022 Episodic Osteoarthritis (20 sources) Bilateral primary osteoarthritis of knee; Translations: [Unilateral primary osteoarthritis, right hip] Onset: 12-11-2015 09-18-2021 Chronic Other aftercare (1 source) Other assistant terminal manager (current) drug therapy; Translations: [OTH PENITENTIARY CURRENT DRUG THERAPY] Onset: 07-16-2022 Episodic Other and ill-defined heart disease (1 source) Cardiomegaly; Translations: [Cardiomegaly] 03-06-2023 Chronic Other connective tissue disease (1 source) Presence of artificial knee joint, bilateral; Translations: [PRESENCE ARTIFICIAL KNEE JNT BILAT] Onset: 09-20-2021 Chronic Other lower respiratory disease (6 sources) Dyspnea; Translations: [Shortness of breath] 01-06-2024 Episodic Other lower respiratory disease (1 source) Shortness of breath; Translations: [Shortness of breath] Onset: 01-06-2024 Episodic Other nervous system disorders (1 source) Other [...] Chronic Other nutritional; endocrine; and metabolic disorders (10 sources) Morbid obesity; Translations: [Morbid (severe) obesity due to excess calories] Onset: 06-08-2018 09-14-2022 Chronic Eva-; endo-; and myocarditis; cardiomyopathy (except that caused by tuberculosis or sexually transmitted disease) (1 source) Cardiomyopathy; Translations: [Cardiomyopathy, unspecified] 02-03-2024 Chronic Peripheral and visceral atherosclerosis (11 sources) Occlusion of artery; 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[place] arteries of extremities, other extremity] Onset: 09-30-2022 09-30-2022 Chronic Residual codes; unclassified (10 sources) Obstructive sleep apnea syndrome; Translations: [Obstructive [...] Documented Date Episodic/Chronic Fluid and electrolyte disorders (10 sources) Hypokalemia; Translations: [Hypokalemia] Onset: 09-13-2022 09-13-2022 Episodic Lymphadenitis (1 source) Nonspecific lymphadenitis, unspecified; Translations: [NONSPECIFIC LYMPHADENITIS UNS] Onset: 04-04-2022 Episodic Mood disorders (10 sources) Mood disorders Onset: 09-14-2022 09-14-2022 Other connective tissue disease (3 sources) Other specified soft tissue disorders; Translations: [OTHER SPEC SOFT TISSUE DISORDERS] Onset: 04-22-2022 Episodic Other connective tissue disease (10 sources) Pain in right arm; Translations: [Pain [...] Onset: 01-24-2022 Episodic Other non-traumatic joint disorders (10 sources) Pain in unspecified knee; Translations: [Pain in joint, lower leg] Onset: 06-08-2018 11-08-2021 Episodic Other screening for suspected conditions (not mental disorders or infectious disease) (14 sources) Other specified abnormal findings of blood chemistry; Translations: [Serum creatinine raised] Onset: 04-24-2022 09-12-2022 Episodic Pneumonia (except that caused by tuberculosis or sexually transmitted disease) (1 source) Pneumonia, unspecified organism; Translations: [PNEUMONIA UNSPECIFIED ORGANISM] Onset: 12-24-2021 Episodic Residual codes; unclassified (1 source) Edema, unspecified; Translations: [EDEMA UNSPECIFIED] Onset: 04-24-2022 Episodic Respiratory failure; insufficiency; arrest (adult) (10 sources) Hypercapnic respiratory failure; Translations: [Respiratory failure, unspecified with hypercapnia] Onset: 06-09-2018 11-08-2021 Episodic Unclassified (1 source) COUGH, UNSPECIFIED; Translations: [COUGH, UNSPECIFIED] Onset: 05-11-2022 Unclassified (1 source) LOW BACK PAIN, UNSPECIFIED; Translations: [LOW BACK PAIN, UNSPECIFIED] Onset: 09-13-2021 Results Test Name Value Interpretation Reference Range Facility Capillary blood glucose melissa urement by glucometer (mass/volume)Ordered By: Natalie Garcia on 12-09-2023 Glucose [Mass/Vol] 137 mg/dL Normal [facility] Comment on above: Random Glucose Refer ence Range is dependent on time and content of last meal. Glucose of more than 200 mg/dL in a nonstressed, ambulatory subject supports the diagnosis of Diabetes Mellitus. Result Comment: [facility] om Glucose Reference Range is dependent on time and content of last meal. Glucose of more than 200 mg/dL in a nonstressed, ambulatory subject supports the diagnosis of Diabetes Mellitus. Performed By: #### G LULS #### Point of Care testing , Glucose Poct Glucometerson 0 12-09-2023 Commemt1 Glu2: Cleaned Meter Normal [facility] Comment on above: Result Comment: PERF ORMED BY: [facility] [address] [place] [address] PATHOLOGIST YARD SPOTTER CASSIDY LEONARDO M.D. Performed By: #### G LULS #### Point of Care testing , [place] 12-09-2023 L Specimen: [id number] Received: 12/09/23 Status: LILIANA Olson Num: [id number] Spec Type: Surgical Subm Dr: Natalie Garcia DO Tissues: A Colon Biopsy (SIGMOID POLYPS) Procedures: HE/2, Gross/Micro L4 Age/ Patient Sex Location Account Attending Physician Karen Knight 48/F [id number] Natalie Garcia DO SPEC NUM: [id number] RECD: 12/09/23 STATUS: LILIANA OLSON NUM: [id number] ANGUS: 12/09/[address]: Natalie Garcia DO ENTERED: 12/09/[address] [facility] DR: SPEC TYPE: Surgical DEPT: S ENTERED BY: [id number] RECV BY: [id number] ORDERED: HE/2, Gross/Micro L4 ORDERED: HE/2, Gross/Micro L4 Pathological Diagnosis Colon, sigmoid, polypectomy: - Fragments of hyperplastic polyp and tubular adenoma. Clinical Information Screen Gross Description Received in formalin with the patient's name and sigmoid polyps and consists of four sandy tissue fragments ranging from 0.1 to 0.3 cm in greatest dimension. The specimen is filtered entirely submitted in cassette A1. Microscopic Description Microscopic examination is performed. CPT Codes 32461 -------- -------- Specimen: [id number] Received: 12/09/23 Status: LILIANA Olson Num: [id number] Spec Type: Surgical Subm Dr: Natalie Garcia DO Tissues: A Colon Biopsy (SIGMOID POLYPS) Procedures: HE/Carlitos, Gross/Micro L4 -------- Patient: EugeneKaren M [id number] (Continued) -------- Signed (signature on file) Jeremy Spencer MD 12/15/23 1447 Normal [facility] No Panel InformationOrdered By: Natalie Garcia on 12-09-2023 Bedside Glucose Comment Glu2: cleaned meter [facility] MR LUMBAR SPINE WO CONTon MR LUMBAR [...] Maciel MD on 05/27/2023 10:23 PM Normal [facility] MAMM SCREENING BILATERAL W C eviscerator 05-15-2023 MAMM SCREENING BILATERAL W CAD MAMM [...] AM 1 a MAMM 1 YR Normal [facility] AMYLASEon 07-15-2022 Amylase [Catalytic activity/Vol] 23 U/L Critically low 25-[address] [facility] Comment on above: Performed By: #### C MADM, LENO, LIPA, CMP ####[facility] [address] [place] [id number]. Marcell Coates BNPon 07-15-2022 Natriuretic peptide B (Bld) [Mass/Vol] 40170.0 pg/mL Critically high <=900.[address] [facility] Comment on above: Performed By: #### B SALVAGE MACHINE OPERATOR ####[facility] [address] [id number]. Marcell Coates CARDIAC ISACC 3-6on 3 CK [Catalytic activity/Vol] 72 U/L Normal 26-[address] [facility] Comment on above: Performed By: #### B MP #### [facility] [address] [address] [address] Marcell Coates CK.MB [Mass/Vol] 1.21 ng/mL Normal <=3.60 [facility] Comment on above: Performed By: #### B MP #### [facility] [address] [address] [address] Marcell Coates HSTROP 47.6 pg/mL Normal 4.0-51.[address] [facility] Comment on above: Result Comment: CUT- OFF POINTS HAVE BEEN ESTABLISHED BASED ON THE FOURTH UNIVERSAL DEFINITIONS OF MYOCARDIAL INFARCTION. THE UPPER REFERENCE LIMIT (URL) OF TROPONIN, DEFINED THE 99TH PERCENTILE OF cTnI DISTRIBUTION IN A REFERENCE POPULATION, HAS BEEN CONFIRMED THE DECISION THRESHOLD FOR NC DIAGNOSIS. Performed By: #### B MP #### [facility] [address] [address] [address] Marcell Coates CARDIAC ISACC ADMITon 023 CK [Catalytic activity/Vol] 64 U/L Normal 26-[address] [facility] Comment on above: Performed By: #### C MADM, LENO, LIPA, CMP ####[facility] [address] [address]DrSherrie Coates CK.MB [Mass/Vol] 1.33 ng/mL Normal <=3.60 [facility] Comment on above: Performed By: #### C MADM, LENO, LIPA, CMP ####[facility] [address] [place] [address]DrSherrie Coates HSTROP 47.5 pg/mL Normal 4.0-51.[address] [facility] Comment on above: Result Comment: CUT- OFF POINTS HAVE BEEN ESTABLISHED BASED ON THE FOURTH UNIVERSAL DEFINITIONS OF MYOCARDIAL INFARCTION. THE UPPER REFERENCE LIMIT (URL) OF TROPONIN, DEFINED THE 99TH PERCENTILE OF cTnI DISTRIBUTION IN A REFERENCE POPULATION, HAS BEEN CONFIRMED THE DECISION THRESHOLD FOR NC DIAGNOSIS. Performed By: #### C MADM, LENO, LIPA, CMP ####[facility] [address] [address]Dr. Marcell Coates CHASITY 44 ng/mL Normal 9-[address] [facility] Comment on above: Performed By: #### C MADM, LENO, LIPA, CMP ####[facility] [address] [place], [place] [address]QtDr. Marcell Coates CBC AUTO DIFFon 07-15-2022 BASO # 0.1 103/ul Normal 0.0-0.1 [facility] Comment on above: Performed By: #### B MP #### [facility] [address] [id number] Marcell Coates Basophils/100 WBC (Bld) 1.0 % Normal 0.2-2.0 [facility] Comment on above: Performed By: #### B MP #### [facility] [address] [address] [address] Marcell Coates EO # 0.4 103/ul Normal 0.0-0.7 [facility] Comment on above: Performed By: #### B MP #### [facility] [address] [address] [address] Marcell Coates Eosinophils/100 WBC (Bld) 3.0 % Normal 0.9-7.0 [facility] Comment on above: Performed By: #### B MP #### [facility] [address] [address] [address] Marcell Coates Erythrocyte distribution width (RBC) [Ratio] 14.2 % Normal 11.0-15.0 [facility] Comment on above: Performed By: #### B MP #### [facility] [address] [address] [address] Marcell Coates Hematocrit (Bld) [Volume fraction] 48.1 % Critically high 36.0-48.0 [facility] Comment on above: Performed By: #### B MP #### [facility] [address] [address] [address] Marcell Coates Hemoglobin (Bld) [Mass/Vol] 15.7 g/dL Normal 12.0-16.0 [facility] Comment on above: Performed By: #### B MP #### [facility] [address] [address] [address] Marcell Coates IG # 0.03 10e3/ul Normal 0.00-0.03 [facility] Comment on above: Performed By: #### B MP #### [facility] [address] [place] [address] Dr. Marcell Coates IG % 0.2 % Normal 0.0-0.5 [facility] Comment on above: Performed By: #### B MP #### [facility] [address] [place] [address] Dr. Marcell Coates LYMPH # 3.8 103/ul Normal 1.2-3.8 [facility] Comment on above: Performed By: #### B MP #### [facility] [address] [place] [address] Dr. Marcell Coates Lymphocytes/100 WBC (Bld) 30.5 % Normal 20.5-60.0 [facility] Comment on above: Performed By: #### B MP #### [facility] [address] [place] [address] Dr. Marcell Coates MANUAL DIFF REQ NO Normal [facility] Comment on above: Performed By: #### B MP #### [facility] [address] [place] [address] Dr. Marcell Coates MCH (RBC) [Entitic mass] 29.1 pg Normal 26.7-34.0 [facility] Comment on above: Performed By: #### B MP #### [facility] [address] [place] [address] Dr. Marcell Coates MCHC (RBC) [Mass/Vol] 32.6 g/dL Normal 29.9-35.2 [facility] Comment on above: Performed By: #### B MP #### [facility] [address] [place] [address] Dr. Marcell Coates MCV (RBC) [Entitic vol] 89.2 fL Normal 81.0-99.[address] [facility] Comment on above: Performed By: #### B MP #### [facility] [address] [place] [address] Dr. Marcell Coates MONO # 0.9 103/ul Critically high 0.3-0.8 [facility] Comment on above: Performed By: #### B MP #### [facility] [address] [address] [address] Marcell Coates Monocytes/100 WBC (Bld) 6.9 % Normal 1.7-12.0 [facility] Comment on above: Performed By: #### B MP #### [facility] [address] [address] [address] Marcell Coates NEUT # 7.3 103/ul Critically high 1.4-6.5 [facility] [place] Comment on above: Performed By: #### B MP #### [facility] [address] [address] [address] Marcell Coates Neutrophils/100 WBC (Bld) 58.4 % Normal 43.0-75.0 [facility] Comment on above: Performed By: #### B MP #### [facility] [address] [place] [address] Dr. Marcell Coates Platelet mean volume (Bld) [Entitic vol] 9.9 fL Normal 9.5-13.5 [facility] Comment on above: Performed By: #### B MP #### [facility] [address] [address] [address] Marcell Coates PLT 288 103/ul Normal 150-[address] [facility] Comment on above: Performed By: #### B MP #### [facility] [address] [place] [address] Dr. Marcell Coates RBC 5.39 106/ul Normal 4.20-5.[address] [facility] Comment on above: Performed By: #### B MP #### [facility] [address] [place] [address] Dr. Marcell Coates WBC 12.5 103/ul Critically high 4.0-11.0 [facility] Comment on above: Performed By: #### B MP #### [facility] [address] [place] [address] Dr. Marcell Coates CTA CHEST WO W CONon 01-2 023 CTA CHEST WO W CON EXAMINATION: CTA CHEST WO W CON HISTORY: SHORTNESS OF BREATH [...] TRINITY ELLIS Date: 2022-07-15 02:50 Normal [facility] LACTATE/LACTIC ACIDon 2022 Lactate [Moles/Vol] 1.2 mmol/L Normal 0.4-2.0 [facility] Comment on above: Performed By: #### L IPA, LENO, CMP #### [facility] [address] [address] [address] Marcell Coates LIPASEon 07-15-2022 Lipase [Catalytic activity/Vol] 116.0 U/L Normal 73.0-393.0 [facility] Comment on above: Performed By: #### B MP #### [facility] [address] [place], [place] [address] Dr. Marcell Coates PROF 14(COMP METB)on 023 Albumin [Mass/Vol] 3.5 g/dL Normal 3.4-5.0 [facility] Comment on above: Performed By: #### C MADM, LENO, LIPA, CMP ####[facility] [address] [place], [place] [address]RlDr. Marcell Coates Albumin/Globulin [Mass ratio] 1.1 {ratio} Normal [facility] Comment on above: Performed By: #### C ANDRESM, LENO, LIPA, CMP ####[facility] [address] [address]Dr. Marcell Coates ALP [Catalytic activity/Vol] 106 U/L Normal 46-116 [facility] Comment on above: Performed By: #### C MADM, LENO, LIPA, CMP ####[facility] [address] [address]Dr. Marcell Coates ALT [Catalytic activity/Vol] 31 U/L Normal 14-59 [facility] Comment on above: Performed By: #### C ANDRESM, LENO, LIPA, CMP ####[facility] [address] [address]Dr. Marcell Coates Anion gap [Moles/Vol] 14.8 mmol/L Normal [facility] Comment on above: Performed By: #### C MADM, LENO, LIPA, CMP ####[facility] [address] [place], [place] [address]Dr. Marcell Coates AST [Catalytic activity/Vol] 30 U/L Normal 15-37 [facility] Comment on above: Performed By: #### C MADM, LENO, LIPA, CMP ####[facility] [address] [address]Dr. Marcell Coates Bilirubin [Mass/Vol] 0.4 mg/dL Normal 0.2-1.0 [facility] Comment on above: Performed By: #### C MADM, LENO, LIPA, CMP ####[facility] [address] [address]Dr. Marcell Coates Calcium [Mass/Vol] 8.8 mg/dL Normal 8.5-10.1 [facility] Comment on above: Performed By: #### C MADM, LENO, LIPA, CMP ####[facility] [address] [address]Dr. Ansilvio Coates Chloride [Moles/Vol] 106 mmol/L Normal 98-107 [facility] Comment on above: Performed By: #### C MADM, LENO, LIPA, CMP ####[facility] [address] [address]Dr. Marcell Coates CO2 [Moles/Vol] 26.6 mmol/L Normal 21.0-32.0 [facility] Comment on above: Performed By: #### C MADM, LENO, LIPA, CMP ####[facility] [address] [place], [place] [address]Dr. Marcell Coates Creatinine [Mass/Vol] 1.11 mg/dL Critically high 0.55-1.02 [facility] Comment on above: Performed By: #### C MADM, LENO, LIPA, CMP ####[facility] [address] [place], [place] [address]Dr. Marcell Coates EGFR-AF MALDIVIAN >60 Normal >=60 [facility] Comment on above: Performed By: #### C MADM, LENO, LIPA, CMP ####[facility] [address] [place], [place] [address]Dr. Marcell Coates EGFR-NON AF MALDIVIAN 52 mL/min/1.73m2 Critically low >=[address] [facility] Comment on above: Performed By: #### C RAFY, LENO, LIPA, CMP ####[facility] [address] [place], [place] [address]Dr. Marcell Coates Globulin (S) [Mass/Vol] 3.1 g/dL Normal [facility] Comment on above: Performed By: #### C MADM, LENO, LIPA, CMP ####[facility] [address] [address]Dr. Marcell Coates Glucose [Mass/Vol] 126 mg/dL Critically high 74-106 [facility] Comment on above: Performed By: #### C MADM, LENO, LIPA, CMP ####[facility] [address] [place], [place] [address]Dr. Marcell Coates Potassium [Moles/Vol] 3.4 mmol/L Critically low 3.5-5.[address] [facility] Comment on above: Performed By: #### C MADM, LENO, LIPA, CMP ####[facility] [address] [place], [place] [address]Hs. Marcell Coates Protein [Mass/Vol] 6.6 g/dL Normal 6.4-8.2 [facility] Comment on above: Performed By: #### C MADM, LENO, LIPA, CMP ####[facility] [address] [place], [place] [address]Xt. Marcell Coates Sodium [Moles/Vol] 144 mmol/L Normal 136-145 [facility] Comment on above: Performed By: #### C MADM, LENO, LIPA, CMP ####[facility] [address] [address]Dr. Marcell Coates Urea nitrogen [Mass/Vol] 16.0 mg/dL Normal 7.0-18.0 [facility] Comment on above: Performed By: #### C MADM, LENO, LIPA, CMP ####[facility] [address] [address]Dr. Marcell Coates Urea nitrogen/Creatinine [Mass ratio] 14.4 mg/mg Normal [facility] Comment on above: Performed By: #### C MADM, LENO, LIPA, CMP ####[facility] [address] [id number]. Marcell Coates XR ABD FLAT UP_PA Germaine [...] in the colon. Electronically authenticated by: PEDRO LITTLERYLAN Date: 2022-07-14 23:[address] [facility] US SINGLE QUAD RT UPPERon US [...] JT GRADY Date: 2022-06-18 12:[address] [facility] AMYLASEon 06-14-2022 Amylase [Catalytic activity/Vol] 19 U/L Critically low 25-[address] [facility] Comment on above: Performed By: #### L IPA, LENO, CMP #### [facility] [address] [address] [address] Marcell Coates CBC AUTO DIFFon 06-14-2022 BASO # 0.1 103/ul Normal 0.0-0.1 [facility] Comment on above: Performed By: #### B MP #### [facility] [address] [address] [address] Marcell Coates Basophils/100 WBC (Bld) 0.6 % Normal 0.2-2.[address] [facility] Comment on above: Performed By: #### B MP #### [facility] [address] [address] [address] Marcell Coates EO # 0.3 103/ul Normal 0.0-0.[address] [facility] Comment on above: Performed By: #### B MP #### [facility] [address] [address] [address] Marcell Coates Eosinophils/100 WBC (Bld) 1.8 % Normal 0.9-7.0 [facility] Comment on above: Performed By: #### B MP #### [facility] [address] [address] [address] Marcell Coates Erythrocyte distribution width (RBC) [Ratio] 14.2 % Normal 11.0-15.0 [facility] Comment on above: Performed By: #### B MP #### [facility] [address] [place] [address] Dr. Marcell Coates Hematocrit (Bld) [Volume fraction] 44.9 % Normal 36.0-48.0 [facility] Comment on above: Performed By: #### B MP #### [facility] [address] [place] [address] Dr. Marcell Coates Hemoglobin (Bld) [Mass/Vol] 14.8 g/dL Normal 12.0-16.0 [facility] Comment on above: Performed By: #### B MP #### [facility] [address] [place] [address] Dr. Marcell Coates IG # 0.18 10e3/ul Critically high 0.00-0.03 [facility] Comment on above: Performed By: #### B MP #### [facility] [address] [place] [address] Dr. Marcell Coates IG % 1.3 % Critically high 0.0-0.5 [facility] Comment on above: Performed By: #### B MP #### [facility] [address] [place] [address] Dr. Marcell Coates LYMPH # 3.4 103/ul Normal 1.2-3.8 [facility] Comment on above: Performed By: #### B MP #### [facility] [address] [place] [address] Dr. Marcell Coates Lymphocytes/100 WBC (Bld) 24.4 % Normal 20.5-60.[address] [facility] Comment on above: Performed By: #### B MP #### [facility] [address] [place] [address] Dr. Marcell Coates MANUAL DIFF REQ NO Normal [facility] [place] Comment on above: Performed By: #### B MP #### [facility] [address] [place] [address] Dr. Marcell Coates MCH (RBC) [Entitic mass] 29.4 pg Normal 26.7-34.0 [facility] Comment on above: Performed By: #### B MP #### [facility] [address] [place] [address] Dr. Marcell Coates MCHC (RBC) [Mass/Vol] 33.0 g/dL Normal 29.9-35.2 [facility] Comment on above: Performed By: #### B MP #### [facility] [address] [place] [address] Dr. Marcell Coates MCV (RBC) [Entitic vol] 89.3 fL Normal 81.0-99.0 [facility] Comment on above: Performed By: #### B MP #### [facility] [address] [place] [address] Dr. Marcell Coates MONO # 1.1 103/ul Critically high 0.3-0.8 [facility] Comment on above: Performed By: #### B MP #### [facility] [address] [place] [address] Dr. Marcell Coates Monocytes/100 WBC (Bld) 8.1 % Normal 1.7-12.0 [facility] Comment on above: Performed By: #### B MP #### [facility] [address] [place] [address] Dr. Marcell Coates NEUT # 8.9 103/ul Critically high 1.4-6.5 [facility] [place] Comment on above: Performed By: #### B MP #### [facility] [address] [place] [address] Dr. Marcell Coates Neutrophils/100 WBC (Bld) 63.8 % Normal 43.0-75.0 [facility] Comment on above: Performed By: #### B MP #### [facility] [address] [address] [address] Marcell Coates Platelet mean volume (Bld) [Entitic vol] 10.2 fL Normal 9.5-13.5 [facility] Comment on above: Performed By: #### B MP #### [facility] [address] [place] [address] Dr. Marcell Coates PLT 284 103/ul Normal 150-[address] [facility] Comment on above: Performed By: #### B MP #### [facility] [address] [address] [address] Marcell Coates RBC 5.03 106/ul Normal 4.20-5.40 [facility] Comment on above: Performed By: #### B MP #### [facility] [address] [place] [address] Dr. Marcell Coates WBC 13.9 103/ul Critically high 4.0-11.0 [facility] Comment on above: Performed By: #### B MP #### [facility] [address] [place] [address] Dr. Marcell Coates LIPASEon 06-14-2022 Lipase [Catalytic activity/Vol] 81.0 U/L Normal 73.0-393.0 [facility] Comment on above: Performed By: #### L LENO STERN, CMP #### [facility] [address] [place] [address] Dr. Marcell Coates PROF 14(COMP METB)on 023 Albumin [Mass/Vol] 3.5 g/dL Normal 3.4-5.0 [facility] Comment on above: Performed By: #### L LENO STERN, CMP #### [facility] [address] [place] [address] Dr. Marcell Coates Albumin/Globulin [Mass ratio] 1.3 {ratio} Normal [facility] Comment on above: Performed By: #### L LENO STERN, CMP #### [facility] [address] [place] [address] Dr. Marcell Coates ALP [Catalytic activity/Vol] 121 U/L Critically high 46-116 [facility] Comment on above: Performed By: #### L IPA, LENO, CMP #### [facility] [address] [place] [address] Dr. Marcell Coates ALT [Catalytic activity/Vol] 32 U/L Normal 14-59 [facility] Comment on above: Performed By: #### L IPA, LENO, CMP #### [facility] [address] [place] [address] Dr. Marcell Coates Anion gap [Moles/Vol] 16.4 mmol/L Normal [facility] Comment on above: Performed By: #### L IPA LENO, CMP #### [facility] [address] [place] [address] Dr. Marcell Coates AST [Catalytic activity/Vol] 31 U/L Normal 15-37 [facility] Comment on above: Performed By: #### L IPA LENO, CMP #### [facility] [address] [place] [address] Dr. Marcell Coates Bilirubin [Mass/Vol] 0.5 mg/dL Normal 0.2-1.0 [facility] Comment on above: Performed By: #### L IPA LENO, CMP #### [facility] [address] [place] [address] Dr. Marcell Coates Calcium [Mass/Vol] 8.6 mg/dL Normal 8.5-10.1 [facility] Comment on above: Performed By: #### L IPA LENO, CMP #### [facility] [address] [place] [address] Dr. Marcell Coates Chloride [Moles/Vol] 104 mmol/L Normal 98-107 [facility] Comment on above: Performed By: #### L IPA LENO, CMP #### [facility] [address] [place] [address] Dr. Marcell Coates CO2 [Moles/Vol] 21.2 mmol/L Normal 21.0-32.0 [facility] Comment on above: Performed By: #### L IPA LENO, CMP #### [facility] [address] [place] [address] Dr. Marcell Coates Creatinine [Mass/Vol] 1.13 mg/dL Critically high 0.55-1.02 [facility] Comment on above: Performed By: #### L LENO STERN, CMP #### [facility] [address] [address] [address] Marcell Coates EGFR-AF MALDIVIAN >60 Normal >=60 [facility] Comment on above: Performed By: #### L LENO STERN, CMP #### [facility] [address] [address] [address] Marcell Coates EGFR-NON AF MALDIVIAN 51 mL/min/1.73m2 Critically low >=60 [facility] Comment on above: Performed By: #### L LENO STERN, CMP #### [facility] [address] [place] [address] Dr. Marcell Coates Globulin (S) [Mass/Vol] 2.6 g/dL Normal [facility] Comment on above: Performed By: #### L LENO STERN, CMP #### [facility] [address] [place] [address] Dr. Marcell Coates Glucose [Mass/Vol] 139 mg/dL Critically high 74-106 [facility] Comment on above: Performed By: #### L LENO STERN, CMP #### [facility] [address] [place] [address] Dr. Marcell Coates Potassium [Moles/Vol] 3.6 mmol/L Normal 3.5-5.1 [facility] Comment on above: Performed By: #### L LENO STERN, CMP #### [facility] [address] [place] [address] Dr. Marcell Coates Protein [Mass/Vol] 6.1 g/dL Critically low 6.4-8.2 [facility] Comment on above: Performed By: #### L LENO STERN, CMP #### [facility] [address] [address] [address] Marcell Coates Sodium [Moles/Vol] 138 mmol/L Normal 136-145 [facility] Comment on above: Performed By: #### L LENO STERN, CMP #### [facility] [address] [address] [address] Marcell Coates Urea nitrogen [Mass/Vol] 18.0 mg/dL Normal 7.0-18.0 [facility] Comment on above: Performed By: #### L LENO STERN, CMP #### [facility] [address] [address] [address] Marcell Coates Urea nitrogen/Creatinine [Mass ratio] 15.9 mg/mg Normal [facility] Comment on above: Performed By: #### L LENO STERN, CMP #### [facility] [address] [address] [address] Marcell Coates TROPONIN, HIGH SENSITIVITYon 06-14-2022 HSTROP 36.3 pg/mL Normal 4.0-51.3 [facility] Comment on above: Result Comment: CUT- OFF POINTS HAVE BEEN ESTABLISHED BASED ON THE FOURTH UNIVERSAL DEFINITIONS OF MYOCARDIAL INFARCTION. THE UPPER REFERENCE LIMIT (URL) OF TROPONIN, DEFINED THE 99TH PERCENTILE OF cTnI DISTRIBUTION IN A REFERENCE POPULATION, HAS BEEN CONFIRMED THE DECISION THRESHOLD FOR NC DIAGNOSIS. Performed By: #### H STROPN ####[facility] [address] [place] [address]Dr. Marcell Coates AMYLASEon 06-09-2022 Amylase [Catalytic activity/Vol] 22 U/L Critically low 25-115 [facility] Comment on above: Performed By: #### B MP #### [facility] [address] [address] [address] Marcell Coates CBC AUTO DIFFon 06-09-2022 BASO # 0.1 103/ul Normal 0.0-0.1 [facility] Comment on above: Performed By: #### C BC #### [facility] [address] [address] [address] Marcell Coates Basophils/100 WBC (Bld) 0.6 % Normal 0.2-2.[address] [facility] Comment on above: Performed By: #### C BC #### [facility] [address] [address] [address] Marcell Coates EO # 0.5 103/ul Normal 0.0-0.7 [facility] Comment on above: Performed By: #### C BC #### [facility] [address] [place] [address] Dr. Marcell Coates Eosinophils/100 WBC (Bld) 4.0 % Normal 0.9-7.0 [facility] Comment on above: Performed By: #### C BC #### [facility] [address] [place] [address] Dr. Marcell Coates Erythrocyte distribution width (RBC) [Ratio] 13.9 % Normal 11.0-15.0 [facility] Comment on above: Performed By: #### C BC #### [facility] [address] [place] [address] Dr. Marcell Coates Hematocrit (Bld) [Volume fraction] 46.2 % Normal 36.0-48.0 [facility] Comment on above: Performed By: #### C BC #### [facility] [address] [place] [address] Dr. Marcell Coates Hemoglobin (Bld) [Mass/Vol] 15.2 g/dL Normal 12.0-16.0 [facility] Comment on above: Performed By: #### C BC #### [facility] [address] [place] [address] Dr. Marcell Coates IG # 0.02 10e3/ul Normal 0.00-0.03 [facility] Comment on above: Performed By: #### C BC #### [facility] [address] [place] [address] Dr. Marcell Coates IG % 0.2 % Normal 0.0-0.[address] [facility] Comment on above: Performed By: #### C BC #### [facility] [address] [place] [address] Dr. Marcell Coates LYMPH # 3.8 103/ul Normal 1.2-3.[address] [facility] Comment on above: Performed By: #### C BC #### [facility] [address] [place] [address] Dr. Marcell Coates Lymphocytes/100 WBC (Bld) 31.4 % Normal 20.5-60.0 [facility] Comment on above: Performed By: #### C BC #### [facility] [address] [place] [address] Dr. Marcell Coates MANUAL DIFF REQ NO Normal [facility] [place] Comment on above: Performed By: #### C BC #### [facility] [address] [place] [address] Dr. Marcell Coates MCH (RBC) [Entitic mass] 29.6 pg Normal 26.7-34.0 [facility] Comment on above: Performed By: #### C BC #### [facility] [address] [place] [address] Dr. Marcell Coates MCHC (RBC) [Mass/Vol] 32.9 g/dL Normal 29.9-35.2 [facility] Comment on above: Performed By: #### C BC #### [facility] [address] [place] [address] Dr. Marcell Coates MCV (RBC) [Entitic vol] 90.1 fL Normal 81.0-99.0 [facility] Comment on above: Performed By: #### C BC #### [facility] [address] [place] [address] Dr. Marcell Coates MONO # 0.9 103/ul Critically high 0.3-0.8 [facility] [place] Comment on above: Performed By: #### C BC #### [facility] [address] [place] [address] Dr. Marcell Coates Monocytes/100 WBC (Bld) 7.7 % Normal 1.7-12.[address] [facility] Comment on above: Performed By: #### C BC #### [facility] [address] [place] [address] Dr. Marcell Coates NEUT # 6.7 103/ul Critically high 1.4-6.5 [facility] [place] Comment on above: Performed By: #### C BC #### [facility] [address] [place] [address] Dr. Marcell Coates Neutrophils/100 WBC (Bld) 56.1 % Normal 43.0-75.[address] [facility] Comment on above: Performed By: #### C BC #### [facility] [address] [place], [place] [address] Dr. Marcell Coates Platelet mean volume (Bld) [Entitic vol] 9.6 fL Normal 9.5-13.5 [facility] Comment on above: Performed By: #### C BC #### [facility] [address] [place], [place] [address] Dr. Marcell Coates PLT 297 103/ul Normal 150-[address] [facility] Comment on above: Performed By: #### C BC #### [facility] [address] [place], [place] [address] Dr. Marcell Coates RBC 5.13 106/ul Normal 4.20-5.[address] [facility] Comment on above: Performed By: #### C BC #### [facility] [address] [place] [address] [address] [address] Marcell Coates WBC 11.9 103/ul Critically high 4.0-11.0 [facility] Comment on above: Performed By: #### C BC #### [facility] [address] [place] [address] ABD/PELVIS WO CONon [...] No acute abnormality. Electronically authenticated by: OSWALDO SAID Date: 2022-06-09 01:12 Normal [facility] ER URINE PROFILEon 3 Bilirubin Ql (U) Negative Normal NEGATIVE [facility] Comment on above: Performed By: #### B MP #### [facility] [address] [place] [address] Dr. Marcell Coates Clarity (U) CLEAR Normal CLEAR [facility] Comment on above: Performed By: #### B MP #### [facility] [address] [address] [address] Marcell Coates Color (U) LT. YELLOW Normal YELLOW [facility] Comment on above: Performed By: #### B MP #### [facility] [address] [place] [address] Dr. Marcell ASHTON A micrscopic examination will be performed if indicated. Normal [facility] Comment on above: Performed By: #### B MP #### [facility] [address] [place] [address] Dr. Marcell Coates Glucose Ql (U) Negative Normal NEGATIVE [facility] [place] [facility] Comment on above: Performed By: #### B MP #### [facility] [address] [place] [address] Dr. Marcell Coates Hemoglobin Ql (U) Negative Normal NEGATIVE [facility] Comment on above: Performed By: #### B MP #### [facility] [address] [place] [address] Dr. Marcell Coates Ketones Ql (U) Negative Normal NEGATIVE [facility] [place] [facility] Comment on above: Performed By: #### B MP #### [facility] [address] [place] [address] Dr. Marcell Coates LEUKOCYTES Negative Normal NEGATIVE [facility] Comment on above: Performed By: #### B MP #### [facility] [address] [place] [address] Dr. Marcell Coates Nitrite Ql (U) Negative Normal NEGATIVE [facility] [place] [facility] Comment on above: Performed By: #### B MP #### [facility] [address] [place] [address] Dr. Marcell Coates pH (U) 6.0 [pH] Normal 5-9 [facility] Comment on above: Performed By: #### B MP #### [facility] [address] [place] [address] Dr. Marcell Coates Protein (U) [Mass/Vol] 30 mg/dL Abnormal NEGAT CASEY/ TRACE [facility] Comment on above: Performed By: #### B MP #### [facility] [address] [place] [address] Dr. Marcell Coates SPEC GRAVITY <=1.005 Abnormal 1.005-<=1.025 [facility] Comment on above: Performed By: #### B MP #### [facility] [address] [place] [address] Dr. Marcell Coates UR MICRO IND NOT INDICATED Normal [facility] Comment on above: Performed By: #### B MP #### [facility] [facility] [address] [place] [address] Dr. Marcell Coates Urobilinogen Qn (U) 0.2 {Jl'U}/dL Normal 0.2 - 1. 0 [facility] Comment on above: Performed By: #### B MP #### [facility] [address] [place] [address] Dr. Marcell Coates LIPASEon 06-09-2022 Lipase [Catalytic activity/Vol] 82.0 U/L Normal 73.0-393.0 [facility] Comment on above: Performed By: #### B MP #### [facility] [address] [place] [address] Dr. Marcell Coates PROF 14(COMP METB)on 023 Albumin [Mass/Vol] 3.6 g/dL Normal 3.4-5.0 [facility] Comment on above: Performed By: #### B MP #### [facility] [address] [place] [address] Dr. Marcell Coates Albumin/Globulin [Mass ratio] 1.2 {ratio} Normal [facility] Comment on above: Performed By: #### B MP #### [facility] [address] [place] [address] Dr. Marcell Coates ALP [Catalytic activity/Vol] 92 U/L Normal 46-116 [facility] Comment on above: Performed By: #### B MP #### [facility] [address] [place] [address] Dr. Marcell Coates ALT [Catalytic activity/Vol] 30 U/L Normal 14-59 [facility] Comment on above: Performed By: #### B MP #### [facility] [address] [address] [address] Marcell Coates Anion gap [Moles/Vol] 12.0 mmol/L Normal Th [facility] Comment on above: Performed By: #### B MP #### [facility] [address] [place] [address] Dr. Marcell Coates AST [Catalytic activity/Vol] 25 U/L Normal 15-37 [facility] Comment on above: Performed By: #### B MP #### [facility] [address] [place] [address] Dr. Marcell Coates Bilirubin [Mass/Vol] 0.4 mg/dL Normal 0.2-1.0 [facility] Comment on above: Performed By: #### B MP #### [facility] [address] [place] [address] Dr. Marcell Coates Calcium [Mass/Vol] 8.7 mg/dL Normal 8.5-10.1 [facility] Comment on above: Performed By: #### B MP #### [facility] [address] [address] [address] Marcell Coates Chloride [Moles/Vol] 103 mmol/L Normal 98-107 [facility] Comment on above: Performed By: #### B MP #### [facility] [address] [address] [address] Marcell Coates CO2 [Moles/Vol] 24.5 mmol/L Normal 21.0-32.0 [facility] Comment on above: Performed By: #### B MP #### [facility] [address] [place] [address] Dr. Marcell Coates Creatinine [Mass/Vol] 1.04 mg/dL Critically high 0.55-1.02 [facility] Comment on above: Performed By: #### B MP #### [facility] [address] [address] [address] Marcell Coates EGFR-AF MALDIVIAN >60 Normal >=60 [facility] Comment on above: Performed By: #### B MP #### [facility] [address] [address] [address] Marcell Coates EGFR-NON AF MALDIVIAN 56 mL/min/1.73m2 Critically low >=60 [facility] Comment on above: Performed By: #### B MP #### [facility] [address] [address] [address] Marcell Coates Globulin (S) [Mass/Vol] 3.0 g/dL Normal [facility] Comment on above: Performed By: #### B MP #### [facility] [address] [address] [address] Marcell Coates Glucose [Mass/Vol] 109 mg/dL Critically high 74-106 [facility] Comment on above: Performed By: #### B MP #### [facility] [address] [address] [address] Marcell Coates Potassium [Moles/Vol] 3.5 mmol/L Normal 3.5-5.1 [facility] Comment on above: Performed By: #### B MP #### [facility] [address] [address] [address] Marcell Coates Protein [Mass/Vol] 6.6 g/dL Normal 6.4-8.2 [facility] Comment on above: Performed By: #### B MP #### [facility] [address] [address] [address] Marcell Coates Sodium [Moles/Vol] 136 mmol/L Normal 136-145 [facility] Comment on above: Performed By: #### B MP #### [facility] [address] [address] [address] Marcell Coates Urea nitrogen [Mass/Vol] 10.0 mg/dL Normal 7.0-18.0 [facility] Comment on above: Performed By: #### B MP #### [facility] [address] [address] [address] Marcell Coates Urea nitrogen/Creatinine [Mass ratio] 9.6 mg/mg Normal [facility] Comment on above: Performed By: #### B MP #### [facility] [address] [address] [address] Marcell Coates XR CHEST 1 Von [...] be related to pleural effusion with adjacent atelectasis/consolida tion. Possible trace right pleural effusion. No focal [...] LIOR JIANG Date: 2022-05-11 03:[address] [facility] BNPon 04-22-2022 Natriuretic peptide B (Bld) [Mass/Vol] 9289.0 pg/mL Critically high <=450.[address] [facility] Comment on above: Performed By: #### B SALVAGE MACHINE OPERATOR, BMP #### [facility] [address] [place] [address] Dr. Marcell Coates CBC AUTO DIFFon 04-22-2022 BASO # 0.1 103/ul Normal 0.0-0.1 [facility] Comment on above: Performed By: #### L IPA, LENO, CMP #### [facility] [address] [address] [address] Marcell Coates Basophils/100 WBC (Bld) 0.6 % Normal 0.2-2.[address] [facility] Comment on above: Performed By: #### L LENO STERN, CMP #### [facility] [address] [place] [address] Dr. Marcell Coates EO # 0.4 103/ul Normal 0.0-0.[address] [facility] Comment on above: Performed By: #### L LENO STERN, CMP #### [facility] [address] [place] [address] Dr. Marcell Coates Eosinophils/100 WBC (Bld) 2.9 % Normal 0.9-7.[address] [facility] Comment on above: Performed By: #### L LENO STERN, CMP #### [facility] [address] [place] [address] Dr. Marcell Coates Erythrocyte distribution width (RBC) [Ratio] 14.5 % Normal 11.0-15.0 [facility] Comment on above: Performed By: #### L LENO STERN, CMP #### [facility] [address] [place] [address] Dr. Marcell Coates Hematocrit (Bld) [Volume fraction] 41.6 % Normal 36.0-48.0 [facility] Comment on above: Performed By: #### L LENO STERN, CMP #### [facility] [address] [place] [address] Dr. Marcell Coates Hemoglobin (Bld) [Mass/Vol] 13.1 g/dL Normal 12.0-16.[address] [facility] Comment on above: Performed By: #### L LENO STERN, CMP #### [facility] [address] [place] [address] Dr. Marcell Coates IG # 0.05 10e3/ul Critically high 0.00-0.03 [facility] Comment on above: Performed By: #### L LENO STERN, CMP #### [facility] [address] [place] [address] Dr. Marcell Coates IG % 0.4 % Normal 0.0-0.5 [facility] Comment on above: Performed By: #### L IPA, LENO, CMP #### [facility] [address] [place] [address] Dr. Marcell Coates LYMPH # 3.1 103/ul Normal 1.2-3.8 [facility] Comment on above: Performed By: #### L IPA, LENO, CMP #### [facility] [address] [place] [address] Dr. Marcell Coates Lymphocytes/100 WBC (Bld) 22.1 % Normal 20.5-60.0 [facility] Comment on above: Performed By: #### L IPA, LENO, CMP #### [facility] [address] [place] [address] Dr. Marcell Coates MANUAL DIFF REQ NO Normal [facility] Comment on above: Performed By: #### L IPA, LENO, CMP #### [facility] [address] [place] [address] Dr. Marcell Coates MCH (RBC) [Entitic mass] 29.8 pg Normal 26.7-34.0 [facility] Comment on above: Performed By: #### L IPA, LENO, CMP #### [facility] [address] [place] [address] Dr. Marcell Coates MCHC (RBC) [Mass/Vol] 31.5 g/dL Normal 29.9-35.[address] [facility] Comment on above: Performed By: #### L IPA, LENO, CMP #### [facility] [address] [place] [address] Dr. Marcell Coates MCV (RBC) [Entitic vol] 94.5 fL Normal 81.0-99.[address] [facility] Comment on above: Performed By: #### L IPA, LENO, CMP #### [facility] [address] [place] [address] Dr. Marcell Coates MONO # 0.9 103/ul Critically high 0.3-0.8 [facility] Comment on above: Performed By: #### L IPA, LENO, CMP #### [facility] [address] [place] [address] Dr. Marcell Coates Monocytes/100 WBC (Bld) 6.1 % Normal 1.7-12.0 [facility] Comment on above: Performed By: #### L LENO STERN, CMP #### [facility] [address] [address] [address] Marcell Coates NEUT # 9.5 103/ul Critically high 1.4-6.5 [facility] [place] Comment on above: Performed By: #### L LENO STERN, CMP #### [facility] [address] [place] [address] Dr. Marcell Coates Neutrophils/100 WBC (Bld) 67.9 % Normal 43.0-75.0 [facility] Comment on above: Performed By: #### L LENO STERN, CMP #### [facility] [address] [place] [address] Dr. Marcell Coates Platelet mean volume (Bld) [Entitic vol] 10.0 fL Normal 9.5-13.5 [facility] Comment on above: Performed By: #### L LENO STERN, CMP #### [facility] [address] [place] [address] Dr. Marcell Coates PLT 285 103/ul Normal 150-450 [facility] Comment on above: Performed By: #### L LENO STERN, CMP #### [facility] [address] [place] [address] Dr. Marcell Coates RBC 4.40 106/ul Normal 4.20-5.40 [facility] Comment on above: Performed By: #### L LENO STERN, CMP #### [facility] [address] [place] [address] Dr. Marcell Coates WBC 13.9 103/ul Critically high 4.0-11.0 [facility] Comment on above: Performed By: #### L LENO STERN, CMP #### [facility] [address] [place] [address] Dr. Marcell Coates PROF CHEM 8 (BAS METB)on Anion gap [Moles/Vol] 15.0 mmol/L Normal [facility] Comment on above: Performed By: #### B SALVAGE MACHINE OPERATOR, BMP #### [facility] [address] [address] [address] Marcell Coates Calcium [Mass/Vol] 9.1 mg/dL Normal 8.5-10.1 [facility] Comment on above: Performed By: #### B SALVAGE MACHINE OPERATOR, BMP #### [facility] [address] [address] [address] Marcell Coates Chloride [Moles/Vol] 107 mmol/L Normal 98-107 [facility] Comment on above: Performed By: #### B SALVAGE MACHINE OPERATOR, BMP #### [facility] [address] [address] [address] Marcell Coates CO2 [Moles/Vol] 23.4 mmol/L Normal 21.0-32.0 [facility] Comment on above: Performed By: #### B SALVAGE MACHINE OPERATOR, BMP #### [facility] [address] [place] [address] Dr. Marcell Coates Creatinine [Mass/Vol] 1.00 mg/dL Normal 0.55-1.02 [facility] Comment on above: Performed By: #### B SALVAGE MACHINE OPERATOR, BMP #### [facility] [address] [place] [address] Dr. Marcell Coates EGFR-AF MALDIVIAN >60 Normal >=60 [facility] Comment on above: Performed By: #### B SALVAGE MACHINE OPERATOR, BMP #### [facility] [address] [place] [address] Dr. Marcell Coates EGFR-NON AF MALDIVIAN 59 mL/min/1.73m2 Critically low >=60 [facility] Comment on above: Performed By: #### B SALVAGE MACHINE OPERATOR, BMP #### [facility] [address] [place] [address] Dr. Marcell Coates Glucose [Mass/Vol] 166 mg/dL Critically high 74-106 [facility] Comment on above: Performed By: #### B SALVAGE MACHINE OPERATOR, BMP #### [facility] [address] [address] [address] Marcell Coates Potassium [Moles/Vol] 3.4 mmol/L Critically low 3.5-5.1 [facility] Comment on above: Performed By: #### B SALVAGE MACHINE OPERATOR, BMP #### [facility] [address] [place], [place] [address] Dr. Marcell Coates Sodium [Moles/Vol] 142 mmol/L Normal 136-145 [facility] Comment on above: Performed By: #### B SALVAGE MACHINE OPERATOR, BMP #### [facility] [address] [place], [place] [address] Dr. Marcell Coates Urea nitrogen [Mass/Vol] 21.0 mg/dL Critically high 7.0-18.0 [facility] Comment on above: Performed By: #### B SALVAGE MACHINE OPERATOR, BMP #### [facility] [address] [place], [place] [address] Dr. Marcell Coates Urea nitrogen/Creatinine [Mass ratio] 21.0 mg/mg Normal [facility] Comment on above: Performed By: #### B SALVAGE MACHINE OPERATOR, BMP #### [facility] [address] [address] [address] Marcell Coates TROPONIN, HIGH SENSITIVITYon 04-22-2022 HSTROP 48.9 pg/mL Normal 4.0-51.3 [facility] Comment on above: Result Comment: CUT- OFF POINTS HAVE BEEN ESTABLISHED BASED ON THE FOURTH UNIVERSAL DEFINITIONS OF MYOCARDIAL INFARCTION. THE UPPER REFERENCE LIMIT (URL) OF TROPONIN, DEFINED THE 99TH PERCENTILE OF cTnI DISTRIBUTION IN A REFERENCE POPULATION, HAS BEEN CONFIRMED THE DECISION THRESHOLD FOR NC DIAGNOSIS. Performed By: #### H STROPN ####[facility] [address] [place], [place] [address]EaDr. Marcell Coates XR CHEST 1 Von 04-22-2022 [...] LIZANDRO LATIF Date: 2022-04-22 19:45 Normal [facility] CARDIAC ISACC 3-6on 2 CK [Catalytic activity/Vol] 63 U/L Normal 26-192 [facility] Comment on above: Performed By: #### C MREP ####[facility] [address] [address]Dr. Marcell Coates CK.MB [Mass/Vol] 1.16 ng/mL Normal <=3.60 [facility] Comment on above: Performed By: #### C MREP ####[facility] [address] [address]Dr. Marcell Coates HSTROP 27.4 pg/mL Normal 4.0-51.[address] [facility] Comment on above: Result Comment: CUT- OFF POINTS HAVE BEEN ESTABLISHED BASED ON THE FOURTH UNIVERSAL DEFINITIONS OF MYOCARDIAL INFARCTION. THE UPPER REFERENCE LIMIT (URL) OF TROPONIN, DEFINED THE 99TH PERCENTILE OF cTnI DISTRIBUTION IN A REFERENCE POPULATION, HAS BEEN CONFIRMED THE DECISION THRESHOLD FOR NC DIAGNOSIS. Performed By: #### C MREP ####[facility] [address] [place], [place] [address]Dr. Marcell Coates CARDIAC ISACC ADMITon 022 CK [Catalytic activity/Vol] 67 U/L Normal 26-192 [facility] Comment on above: Performed By: #### C RAFY BMP ####[facility] [address] [place], [place] [address]Dr. Marcell Coates CK.MB [Mass/Vol] 0.84 ng/mL Normal <=3.60 [facility] Comment on above: Performed By: #### C MADM, BMP ####[facility] [address] [place], [place] [address]Dr. Marcell Coates HSTROP 25.4 pg/mL Normal 4.0-51.[address] [facility] Comment on above: Result Comment: CUT- OFF POINTS HAVE BEEN ESTABLISHED BASED ON THE FOURTH UNIVERSAL DEFINITIONS OF MYOCARDIAL INFARCTION. THE UPPER REFERENCE LIMIT (URL) OF TROPONIN, DEFINED THE 99TH PERCENTILE OF cTnI DISTRIBUTION IN A REFERENCE POPULATION, HAS BEEN CONFIRMED THE DECISION THRESHOLD FOR NC DIAGNOSIS. Performed By: #### C MADM, BMP ####[facility] [address] [place], [place] [address]Dr. Marcell Coates CHASITY 44 ng/mL Normal 9-[address] [facility] Comment on above: Performed By: #### C MADM, BMP ####[facility] [address] [address]Dr. Marcell Coates CBC AUTO DIFFon 01-22-2022 BASO # 0.1 103/ul Normal 0.0-0.1 [facility] Comment on above: Performed By: #### L ELNO STERN, CMP #### [facility] [address] [place] [address] Dr. Marcell Coates Basophils/100 WBC (Bld) 0.7 % Normal 0.2-2.[address] [facility] Comment on above: Performed By: #### L LENO STERN, CMP #### [facility] [address] [place] [address] Dr. Marcell Coates EO # 0.5 103/ul Normal 0.0-0.[address] [facility] Comment on above: Performed By: #### L LENO STERN, CMP #### [facility] [address] [place] [address] Dr. Marcell Coates Eosinophils/100 WBC (Bld) 4.4 % Normal 0.9-7.0 [facility] Comment on above: Performed By: #### L LENO STERN, CMP #### [facility] [address] [place] [address] Dr. Marcell Coates Erythrocyte distribution width (RBC) [Ratio] 13.3 % Normal 11.0-15.0 [facility] Comment on above: Performed By: #### L LENO STERN, CMP #### [facility] [address] [place] [address] Dr. Marcell Coates Hematocrit (Bld) [Volume fraction] 41.9 % Normal 36.0-48.[address] [facility] Comment on above: Performed By: #### L LENO STERN, CMP #### [facility] [address] [place] [address] Dr. Marcell Coates Hemoglobin (Bld) [Mass/Vol] 14.2 g/dL Normal 12.0-16.[address] [facility] Comment on above: Performed By: #### L LENO STERN, CMP #### [facility] [address] [address] [address] Marcell Coates IG # 0.03 10e3/ul Normal 0.00-0.03 [facility] Comment on above: Performed By: #### L IPA, LENO, CMP #### [facility] [address] [address] [address] Marcell Coates IG % 0.2 % Normal 0.0-0.[address] [facility] Comment on above: Performed By: #### L IPA, LENO, CMP #### [facility] [address] [address] [address] Marcell Coates LYMPH # 4.0 103/ul Critically high 1.2-3.8 [facility] Comment on above: Performed By: #### L IPA, LENO, CMP #### [facility] [address] [place] [address] Dr. Marcell Coates Lymphocytes/100 WBC (Bld) 32.9 % Normal 20.5-60.0 [facility] Comment on above: Performed By: #### L IPA, LENO, CMP #### [facility] [address] [address] [address] Marcell Coates MANUAL DIFF REQ NO Normal [facility] Comment on above: Performed By: #### L IPA, LENO, CMP #### [facility] [address] [address] [address] Marcell Coates MCH (RBC) [Entitic mass] 30.3 pg Normal 26.7-34.0 [facility] Comment on above: Performed By: #### L IPA, LENO, CMP #### [facility] [address] [address] [address] Marcell Coates MCHC (RBC) [Mass/Vol] 33.9 g/dL Normal 29.9-35.2 [facility] Comment on above: Performed By: #### L IPA, LENO, CMP #### [facility] [address] [place] [address] Dr. Marcell Coates MCV (RBC) [Entitic vol] 89.5 fL Normal 81.0-99.0 [facility] Comment on above: Performed By: #### L IPA LENO, CMP #### [facility] [address] [place] [address] Dr. Marcell Coates MONO # 0.9 103/ul Critically high 0.3-0.8 [facility] Comment on above: Performed By: #### L IPA, LENO, CMP #### [facility] [address] [place] [address] Dr. Marcell Coates Monocytes/100 WBC (Bld) 7.3 % Normal 1.7-12.0 [facility] Comment on above: Performed By: #### L IPA, LENO, CMP #### [facility] [address] [place] [address] Dr. Marcell Coates NEUT # 6.6 103/ul Critically high 1.4-6.5 [facility] Comment on above: Performed By: #### L IPA LENO, CMP #### [facility] [address] [place] [address] Dr. Marcell Coates Neutrophils/100 WBC (Bld) 54.5 % Normal 43.0-75.[address] [facility] Comment on above: Performed By: #### L IPA LENO, CMP #### [facility] [address] [place] [address] Dr. Marcell Coates Platelet mean volume (Bld) [Entitic vol] 10.0 fL Normal 9.5-13.5 [facility] Comment on above: Performed By: #### L LEENA LENO, CMP #### [facility] [address] [place] [address] Dr. Marcell Coates PLT 250 103/ul Normal 150-[address] [facility] Comment on above: Performed By: #### L IPA LENO, CMP #### [facility] [address] [place] [address] Dr. Marcell Coates RBC 4.68 106/ul Normal 4.20-5.[address] [facility] Comment on above: Performed By: #### L IPA LENO, CMP #### [facility] [address] [place] [address] Dr. Marcell Coates WBC 12.1 103/ul Critically high 4.0-11.0 [facility] Comment on above: Performed By: #### L LENO STERN, CMP #### [facility] [address] [address] [address] HEAD WO CONon [...] HAYLEE KILPATRICK Date: 2022-01-22 01:[address] [facility] PROF CHEM 8 (BAS METB)on Anion gap [Moles/Vol] 13.4 mmol/L Normal [facility] Comment on above: Performed By: #### Coleen HILLMAN BMP ####[facility] [address] [address]Dr. Marcell Coates Calcium [Mass/Vol] 9.6 mg/dL Normal 8.5-10.1 [facility] Comment on above: Performed By: #### Coleen HILLMAN, BMP ####[facility] [address] [address]Dr. Marcell Coates Chloride [Moles/Vol] 103 mmol/L Normal 98-[address] [facility] Comment on above: Performed By: #### Coleen HILLMAN, BMP ####[facility] [address] [address]Dr. Marcell Coates CO2 [Moles/Vol] 25.4 mmol/L Normal 21.0-32.0 [facility] Comment on above: Performed By: #### Coleen HILLMAN, BMP ####[facility] [address] [id number]. Marcell Coates Creatinine [Mass/Vol] 0.97 mg/dL Normal 0.55-1.02 [facility] Comment on above: Performed By: #### Coleen HILLMAN, BMP ####[facility] [address] [place], [place] [address]Go. Marcell Coates EGFR-AF MALDIVIAN >60 Normal >=60 [facility] Comment on above: Performed By: #### C RAFY, BMP ####[facility] [address] [place] [id number]. Marcell Coates EGFR-NON AF MALDIVIAN >60 Normal >=60 [facility] Comment on above: Performed By: #### Coleen HILLMAN, BMP ####[facility] [address] [place] [id number]. Marcell Coates Glucose [Mass/Vol] 146 mg/dL Critically high 74-106 [facility] Comment on above: Performed By: #### Coleen HILLMAN, BMP ####[facility] [address] [place] [id number]. Marcell Coates Potassium [Moles/Vol] 3.8 mmol/L Normal 3.5-5.1 [facility] Comment on above: Performed By: #### Coleen HILLMAN, BMP ####[facility] [address] [place] [id number]. Marcell Coates Sodium [Moles/Vol] 138 mmol/L Normal 136-145 [facility] Comment on above: Performed By: #### Coleen HILLMAN, BMP ####[facility] [address] [place] [id number]. Marcell Coates Urea nitrogen [Mass/Vol] 19.0 mg/dL Critically high 7.0-18.0 [facility] Comment on above: Performed By: #### Coleen HILLMAN, BMP ####[facility] [address] [place] [id number]. Marcell Coates Urea nitrogen/Creatinine [Mass ratio] 19.6 mg/mg Normal [facility] Comment on above: Performed By: #### C MADM, BMP ####[facility] [address] [place] [id number]. Marcell Coates XR CHEST 1 Von 01-22-2022 [...] Minal HARRIS Date: 2022-01-22 01:[address] [facility] XR SHOULDER LT 2V or >on [...] Minal HARRIS Date: 2022-01-22 04:[address] [facility] CBC AUTO DIFFon 12-22-2021 BASO # 0.1 103/ul Normal 0.0-0.[address] [facility] Comment on above: Performed By: #### C BC ####[facility] [address] [place] [address]Dr. Marcell Coates Basophils/100 WBC (Bld) 0.6 % Normal 0.2-2.[address] [facility] Comment on above: Performed By: #### C BC ####[facility] [address] [place] [id number] Coates EO # 0.6 103/ul Normal 0.0-0.[address] [facility] Comment on above: Performed By: #### C BC ####[facility] [address] [place] [id number] Coates Eosinophils/100 WBC (Bld) 4.8 % Normal 0.9-7.0 [facility] Comment on above: Performed By: #### C BC ####[facility] [address] [place] [address]Dr. Marcell Coates Erythrocyte distribution width (RBC) [Ratio] 13.5 % Normal 11.0-15.0 [facility] Comment on above: Performed By: #### C BC ####[facility] Pfpllrrvzv[address] [place], [place] [address]Dr. Marcell Coates Hematocrit (Bld) [Volume fraction] 43.7 % Normal 36.0-48.[address] [facility] Comment on above: Performed By: #### C BC ####[facility] Nqzjxpvj[address] [place], [place] [address]Dr. Marcell Coates Hemoglobin (Bld) [Mass/Vol] 14.4 g/dL Normal 12.0-16.[address] [facility] Comment on above: Performed By: #### C BC ####[facility] Givtxzpmxy[address] [place], [place] [address]Dr. Marcell Coates IG # 0.04 10e3/ul Critically high 0.00-0.03 [facility] Comment on above: Performed By: #### C BC ####[facility] Comhljtnbj[address] [place], [place] [address]Dr. Marcell Coates IG % 0.3 % Normal 0.0-0.5 [facility] Comment on above: Performed By: #### C BC ####[facility] Wwonlfdrgb[address] [place], [place] [address]Dr. Marcell Coates LYMPH # 3.2 103/ul Normal 1.2-3.[address] [facility] Comment on above: Performed By: #### C BC ####[facility] Okdneabefh6[address] [place], [place] [address]Dr. Marcell Coates Lymphocytes/100 WBC (Bld) 24.6 % Normal 20.5-60.[address] [facility] Comment on above: Performed By: #### C BC ####[facility] [address] [place] [address]. Ansilvio Coates MANUAL DIFF REQ NO Normal [facility] [place] Comment on above: Performed By: #### C BC ####[facility] [address]xv[address]iflknb[address] [place] [address]Dr. Marcell Coates MCH (RBC) [Entitic mass] 29.9 pg Normal 26.7-34.[address] [facility] Comment on above: Performed By: #### C BC ####[facility] Ipkfqhuwbr[address] [place], [place] [address]Dr. Marcell Jaxon MCHC (RBC) [Mass/Vol] 33.0 g/dL Normal 29.9-35.[address] [facility] Comment on above: Performed By: #### C BC ####[facility] Typnlhcerq[address] [place], [place] [address]Dr. Marcell Jaxon MCV (RBC) [Entitic vol] 90.9 fL Normal 81.0-99.[address] [facility] Comment on above: Performed By: #### C BC ####[facility] Zrdlkcttlk[address] [place], [place] [address]Dr. Marcell Jaxon MONO # 1.2 103/ul Critically high 0.3-0.8 [facility] [place] Comment on above: Performed By: #### C BC ####[facility] Phkzzqivac[address] [place], [place] [address]Dr. Ansilvio Coates Monocytes/100 WBC (Bld) 9.1 % Normal 1.7-12.[address] [facility] Comment on above: Performed By: #### C BC ####[facility] Ozkgtzdbhb[address] [place], [place] [address]Dr. Ansilvio Jaxon NEUT # 7.9 103/ul Critically high 1.4-6.5 [facility] [place] Comment on above: Performed By: #### C BC ####[facility] Zyvnutynwj[address] [place], [place] [address]Dr. Marcell Coates Neutrophils/100 WBC (Bld) 60.6 % Normal 43.0-75.[address] [facility] Comment on above: Performed By: #### C BC ####[facility] Nruckfbjys27[address] [place], [place] [address]Dr. Marcell Coates Platelet mean volume (Bld) [Entitic vol] 10.2 fL Normal 9.5-13.[address] [facility] Comment on above: Performed By: #### C BC ####[facility] Xguisqotyr[address] [place], [place] [address]Vf. Marcell Coates PLT 284 103/ul Normal 150-[address] [facility] Comment on above: Performed By: #### C BC ####[facility] Fqrdpqwlcj1042 [place], [place] [address]Gu. Marcell Coates RBC 4.81 106/ul Normal 4.20-5.[address] [facility] Comment on above: Performed By: #### C BC ####[facility] Nqkgnrbpdb0831 [place], [place] [address]Bm. Marcell Coates WBC 13.0 103/ul Critically high 4.0-11.0 [facility] Comment on above: Performed By: #### C BC ####[facility] Meygkvlupk034[address] [place], [place] [address]Dy. Marcell Coates CTA CHEST WO W CONon 022 CTA CHEST WO W CON EXAMINATION: CTA CHEST WO W CON, 12/22/2021 1:54 AM EDT [...] LIOR JIANG Date: 2021-12-22 03:[address] [facility] Covid-19 PCR (CVDTB)on SARS-CoV-2 (COVID-19) RNA RUSSELL+probe Ql (Unsp spec) Not detected Normal NOT DETECTED [facility] Comment on above: Result Comment: When [...] for this test is supported by the [place] of Health and Human Service's declaration that [...] longer be used). Performed By: #### L IPA, LENO, CMP #### [facility] [address] [place], [place] [address] Dr. Marcell Coates INFLUENZA A AND B AGon 12-22 INFLUENZA A AG Negative Normal NEGATIVE SEE COMMENT [facility] Comment on above: Performed By: #### I NFLUAB ####[facility] Qqbfofhrbw0580 [place], [place] [address]BoDr. Marcell Coates INFLUENZA B AG Negative Normal NEGATIVE SEE COMMENT [facility] Comment on above: Performed By: #### I NFLUAB ####[facility] [address] [place] [address]Dr. Marcell Coates INFLUPOSH SEE BELOW Normal [facility] Comment on above: Result Comment: NOTE : Live attenuated influenzae vaccine viruses can cause a positive result for a rapid influenza diagnostic test if administered up to 7 days prior to rapid testing. Performed By: #### I NFLUAB ####[facility] [address]dxelvg[address] [place] [address]Dr. Marcell Coaets INFLUPOSHB SEE BELOW Normal [facility] Comment on above: Result Comment: NOTE : Live attenuated influenzae vaccine viruses can cause a positive result for a rapid influenza diagnostic test if administered up to 7 days prior to rapid testing. Performed By: #### I NFLUAB ####[facility] Ghoqzgqgiw[address] [place], [place] [address]Dr. Marcell Coates INTERNAL CONTROLS Within Normal Limits Normal Wi thin Normal Limits [facility] Comment on above: Performed By: #### I NFLUAB ####[facility] Hwalmprtus[address] [place] [address]DrSherrie Coates PROF CHEM 8 (BAS METB)on Anion gap [Moles/Vol] 14.3 mmol/L Normal [facility] Comment on above: Performed By: #### B MP #### [facility] [address] [place] [address] [address] Marcell Coates Calcium [Mass/Vol] 9.0 mg/dL Normal 8.5-10.1 [facility] Comment on above: Performed By: #### B MP #### [facility] [address] [place] [address] [address] Marcell Coates Chloride [Moles/Vol] 105 mmol/L Normal 98-107 [facility] Comment on above: Performed By: #### B MP #### [facility] [address] [place] [address] [address] Marcell Coates CO2 [Moles/Vol] 24.6 mmol/L Normal 21.0-32.0 [facility] Comment on above: Performed By: #### B MP #### [facility] [address] [place] [address] [address] Marcell Coates Creatinine [Mass/Vol] 1.19 mg/dL Critically high 0.55-1.02 [facility] Comment on above: Performed By: #### B MP #### [facility] [address] [place] [address] [address] Marcell Coates EGFR-AF MALDIVIAN 59 mL/min/1.73m2 Critically low >=60 [facility] Comment on above: Performed By: #### B MP #### [facility] [address] [place] [address] [address] Marcell Coates EGFR-NON AF MALDIVIAN 48 mL/min/1.73m2 Critically low >=60 [facility] Comment on above: Performed By: #### B MP #### [facility] [address] [place] [address] [address] Marcell Coates Glucose [Mass/Vol] 124 mg/dL Critically high 74-106 T [facility] Comment on above: Performed By: #### B MP #### [facility] [address] [place] [address] [address] Marcell Coates Potassium [Moles/Vol] 3.9 mmol/L Normal 3.5-5.1 [facility] Comment on above: Performed By: #### B MP #### [facility] [address] [place] [address] [address] Marcell Coates Sodium [Moles/Vol] 140 mmol/L Normal 136-145 [facility] Comment on above: Performed By: #### B MP #### [facility] [address] [place] [address] [address] Marcell Coates Urea nitrogen [Mass/Vol] 18.0 mg/dL Normal 7.0-18.0 [facility] Comment on above: Performed By: #### B MP #### [facility] [address] [place] [address] [address] Marcell Coates Urea nitrogen/Creatinine [Mass ratio] 15.1 mg/mg Normal [facility] Comment on above: Performed By: #### B MP #### [facility] [address] [place] [id number] Marcell Coates XR CHEST 1 Von [...] LIOR JIANG Date: 2021-12-22 01:[address] [facility] CBC AUTO DIFFon 11-07-2021 BASO # 0.1 103/ul Normal 0.0-0.1 [facility] Comment on above: Performed By: #### C BC ####[facility] [address] [place] [address]Dr. Marcell Coates Basophils/100 WBC (Bld) 1.0 % Normal 0.2-2.[address] [facility] Comment on above: Performed By: #### C BC ####[facility] Rnxfnadyxx7206 [place] [address]Dr. Marcell Coates EO # 0.4 103/ul Normal 0.0-0.[address] [facility] Comment on above: Performed By: #### C BC ####[facility] Wldrxvdaza36[address] [place] [address]Dr. Marcell Coates Eosinophils/100 WBC (Bld) 3.7 % Normal 0.9-7.[address] [facility] Comment on above: Performed By: #### C BC ####[facility] Onwufmnxqi[address] [place] [address]Dr. Marcell Coates Erythrocyte distribution width (RBC) [Ratio] 13.8 % Normal 11.0-15.[address] [facility] Comment on above: Performed By: #### C BC ####[facility] Ktmelnerae[address] [place] [address]Dr. Marcell Coates Hematocrit (Bld) [Volume fraction] 45.2 % Normal 36.0-48.0 [facility] Comment on above: Performed By: #### C BC ####[facility] Igcqgicwxp65[address] [place] [address]DrSherrie Nolansilvio Jaxon Hemoglobin (Bld) [Mass/Vol] 15.2 g/dL Normal 12.0-16.[address] [facility] Comment on above: Performed By: #### C BC ####[facility] Mksvfxlezx[address] [place], [place] [address]DrSherrie Coates IG # 0.03 10e3/ul Normal 0.00-0.03 [facility] Comment on above: Performed By: #### C BC ####[facility] Kcmhpzpqdz[address] [place], [place] [address]DrSherrie Coates IG % 0.3 % Normal 0.0-0.5 [facility] Comment on above: Performed By: #### C BC ####[facility] Auargiptde[address] [place], [place] [address]DrSherrie Coates LYMPH # 4.0 103/ul Critically high 1.2-3.8 [facility] [place] Comment on above: Performed By: #### C BC ####[facility] Pqqlupqfwj[address] [place], [place] [address]DrSherrie Coates Lymphocytes/100 WBC (Bld) 34.8 % Normal 20.5-60.0 [facility] Comment on above: Performed By: #### C BC ####[facility] Zigoadlqhl[address] [place], [place] [address]DrSherrie Coates MANUAL DIFF REQ NO Normal [facility] [place] Comment on above: Performed By: #### C BC ####[facility] Xbptiumejx4522[address] [place], [place] [address]DrSherrie Coates MCH (RBC) [Entitic mass] 30.3 pg Normal 26.7-34.[address] [facility] Comment on above: Performed By: #### C BC ####[facility] Cgswdrbwqa2216[address] [place], [place] [address]DrSherrie Coates MCHC (RBC) [Mass/Vol] 33.6 g/dL Normal 29.9-35.[address] [facility] Comment on above: Performed By: #### C BC ####[facility] Daoyaqtnwy[address]654 [place] [address]DrSherrie Coates MCV (RBC) [Entitic vol] 90.2 fL Normal 81.0-99.[address] [facility] Comment on above: Performed By: #### C BC ####[facility] Fgwnkiabad[address] [place], [place] [address]DrSherrie Coates MONO # 1.0 103/ul Critically high 0.3-0.8 [facility] [place] Comment on above: Performed By: #### C BC ####[facility] Kwbrnbynvy[address] [place], [place] [address]DrSherrie Coates Monocytes/100 WBC (Bld) 8.7 % Normal 1.7-12.[address] [facility] Comment on above: Performed By: #### C BC ####[facility] Sphxfcpado0420[address] [place], [place] [address]DrSherrie Coates NEUT # 5.9 103/ul Normal 1.4-6.[address] [facility] Comment on above: Performed By: #### C BC ####[facility] Vpugwctqwl[address] [place], [place] [address]DrSherrie Coates Neutrophils/100 WBC (Bld) 51.5 % Normal 43.0-75.[address] [facility] Comment on above: Performed By: #### C BC ####[facility] Yrsnfsdujm6617[address] [place], [place] [address]DrSherrie Coates Platelet mean volume (Bld) [Entitic vol] 9.7 fL Normal 9.5-13.[address] [facility] Comment on above: Performed By: #### C BC ####[facility] Lwqazkgewq[address] [place], [place] [address]DrSherrie Coates PLT 326 103/ul Normal 150-[address] [facility] Comment on above: Performed By: #### C BC ####[facility] Gpavwfbdxv[address] [place], [place] [address]DrSherrie Coates RBC 5.01 106/ul Normal 4.20-5.40 [facility] Comment on above: Performed By: #### C BC ####[facility] Tuxsbsgyvw6186 [place], [place] [address]Fu. Marcell Jaxon WBC 11.4 103/ul Critically high 4.0-11.0 [facility] Comment on above: Performed By: #### C BC ####[facility] Bokmfsjwiz[address] [place] [id number] Marcell Coates CT HEAD WO CONon 11-07-2021 [...] CELINE KO Date: 2021-11-06 23:[address] [facility] PROF 14(COMP METB)on 022 Albumin [Mass/Vol] 4.1 g/dL Normal 3.4-5.0 [facility] Comment on above: Performed By: #### C MP ####[facility] Iwqurmrnry27[address] [place], [place] [address]PkSherrie Coates Albumin/Globulin [Mass ratio] 1.1 {ratio} Normal [facility] Comment on above: Performed By: #### C MP ####[facility] [address]prfir[address] [place] [id number] Coates ALP [Catalytic activity/Vol] 85 U/L Normal 46-116 [facility] Comment on above: Performed By: #### C MP ####[facility] Rqaklqutsx14[address] [place] [address]Dr. Marcell Coates ALT [Catalytic activity/Vol] 21 U/L Normal 14-59 [facility] Comment on above: Performed By: #### C MP ####[facility] Gerhkyufgz[address] [place] [address]Dr. Marcell Coates Anion gap [Moles/Vol] 14.7 mmol/L Normal Th [facility] Comment on above: Performed By: #### C MP ####[facility] Gukqczxdzk4[address] [place], [place] [address]Dr. Marcell Coates AST [Catalytic activity/Vol] 18 U/L Normal 15-37 [facility] Comment on above: Performed By: #### C MP ####[facility] Ysuuznjihu[address] [place], [place] [address]Dr. Marcell aJxon Bilirubin [Mass/Vol] 0.3 mg/dL Normal 0.2-1.0 [facility] Comment on above: Performed By: #### C MP ####[facility] Hsjkbcxgxx[address] [place], [place] [address]Dr. Marcell Jaxon Calcium [Mass/Vol] 9.3 mg/dL Normal 8.5-10.1 [facility] Comment on above: Performed By: #### C MP ####[facility] Cbabcwzudq[address] [place], [place] [address]Dr. Marcell Jaxon Chloride [Moles/Vol] 101 mmol/L Normal 98-[address] [facility] Comment on above: Performed By: #### C MP ####[facility] Pat[address]udgn[address] [place], [place] [address]Dr. Marcell Jaxon CO2 [Moles/Vol] 22.6 mmol/L Normal 21.0-32.0 [facility] Comment on above: Performed By: #### C MP ####[facility] [address]esh[address] [place], [place] [address]Dr. Marcell Jaxon Creatinine [Mass/Vol] 1.25 mg/dL Critically high 0.55-1.02 [facility] Comment on above: Performed By: #### C MP ####[facility] Dbdkmycehd7164 [place] [address]Dr. Marcell Coates EGFR-AF MALDIVIAN 55 mL/min/1.73m2 Critically low >=60 [facility] Comment on above: Performed By: #### C MP ####[facility] Ytvxlwnqke[address] [place] [address]Dr. Marcell Coates EGFR-NON AF MALDIVIAN 46 mL/min/1.73m2 Critically low >=60 [facility] Comment on above: Performed By: #### C MP ####[facility] [address]pcea[address] [place] [address]Dr. Marcell Coates Globulin (S) [Mass/Vol] 3.6 g/dL Normal [facility] Comment on above: Performed By: #### C MP ####[facility] [address]ralnewuy[address] [place] [address]Dr. Marcell Coates Glucose [Mass/Vol] 107 mg/dL Critically high 74-106 T [facility] Comment on above: Performed By: #### C MP ####[facility] Qkfaurhawd[address] [place] [address]Dr. Marcell Coates Potassium [Moles/Vol] 3.3 mmol/L Critically low 3.5-5.1 [facility] Comment on above: Performed By: #### C MP ####[facility] Skfybfgnvs27[address] [place] [address]Dr. Marcell Coates Protein [Mass/Vol] 7.7 g/dL Normal 6.4-8.2 [facility] Comment on above: Performed By: #### C MP ####[facility] [address]lojxiyeop[address] [place] [address]Dr. Marcell Coates Sodium [Moles/Vol] 135 mmol/L Critically low 136-145 Th [facility] Comment on above: Performed By: #### C MP ####[facility] Shnvwvbizm22[address] [place] [address]Dr. Marcell Coates Urea nitrogen [Mass/Vol] 20.0 mg/dL Critically high 7.0-18.0 [facility] Comment on above: Performed By: #### C MP ####[facility] Zfdkzeskcj80[address] [place] [address]Dr. Marcell Coates Urea nitrogen/Creatinine [Mass ratio] 16.0 mg/mg Normal [facility] Comment on above: Performed By: #### C MP ####[facility] Sf[address]wvwkzcs[address] [place] [address]Dr. Marcell Coates CBC AUTO DIFFon 09-14-2021 BASO # 0.0 103/ul Normal 0.0-0.1 [facility] Comment on above: Performed By: #### L LENO STERN, CMP #### [facility] [address] [place] [address] Dr. Marcell Coates Basophils/100 WBC (Bld) 0.1 % Critically low 0.2-2.0 [facility] Comment on above: Performed By: #### L LENO STERN, CMP #### [facility] [address] [place] [address] Dr. Marcell Coates EO # 0.0 103/ul Normal 0.0-0.[address] [facility] Comment on above: Performed By: #### L LENO STERN, CMP #### [facility] [address] [place] [address] Dr. Marcell Coates Eosinophils/100 WBC (Bld) 0.0 % Critically low 0.9-7.0 [facility] Comment on above: Performed By: #### L LENO STERN, CMP #### [facility] [address] [place] [address] Dr. Marcell Coates Erythrocyte distribution width (RBC) [Ratio] 12.8 % Normal 11.0-15.[address] [facility] Comment on above: Performed By: #### L LENO STERN, CMP #### [facility] [address] [place] [address] Dr. Marcell Coates Hematocrit (Bld) [Volume fraction] 40.8 % Normal 36.0-48.0 [facility] Comment on above: Performed By: #### L LENO STERN, CMP #### [facility] [address] [place] [address] [address] Marcell Coates Hemoglobin (Bld) [Mass/Vol] 13.2 g/dL Normal 12.0-16.0 [facility] Comment on above: Performed By: #### L IPA, LENO, CMP #### [facility] [address] [place] [address] Dr. Marcell Coates IG # 0.07 10e3/ul Critically high 0.00-0.03 [facility] Comment on above: Performed By: #### L IPA, LENO, CMP #### [facility] [address] [place] [address] Dr. Marcell Coates IG % 0.6 % Critically high 0.0-0.5 [facility] Comment on above: Performed By: #### L LEENA LENO, CMP #### [facility] [address] [place] [address] Dr. Marcell Coates LYMPH # 1.6 103/ul Normal 1.2-3.[address] [facility] Comment on above: Performed By: #### L LENO STERN, CMP #### [facility] [address] [place] [address] Dr. Marcell Coates Lymphocytes/100 WBC (Bld) 14.3 % Critically low 20.5-60.0 [facility] Comment on above: Performed By: #### L LEENA LENO, CMP #### [facility] [address] [place] [address] Dr. Marcell Coates MANUAL DIFF REQ NO Normal [facility] [place] Comment on above: Performed By: #### L IPA LENO, CMP #### [facility] [address] [place] [address] Dr. Marcell Coates MCH (RBC) [Entitic mass] 29.8 pg Normal 26.7-34.0 [facility] Comment on above: Performed By: #### L IPA, LENO, CMP #### [facility] [address] [place] [address] Dr. Marcell Coates MCHC (RBC) [Mass/Vol] 32.4 g/dL Normal 29.9-35.2 [facility] Comment on above: Performed By: #### L LENO STERN, CMP #### [facility] [address] [place] [address] Dr. Marcell Coates MCV (RBC) [Entitic vol] 92.1 fL Normal 81.0-99.0 [facility] Comment on above: Performed By: #### L LENO STERN, CMP #### [facility] [address] [place] [address] Dr. Marcell Coates MONO # 0.3 103/ul Normal 0.3-0.[address] [facility] Comment on above: Performed By: #### L LENO STERN, CMP #### [facility] [address] [place] [address] Dr. Marcell Coates Monocytes/100 WBC (Bld) 2.4 % Normal 1.7-12.[address] [facility] Comment on above: Performed By: #### L LENO STERN, CMP #### [facility] [address] [place] [address] Dr. Marcell Coates NEUT # 9.3 103/ul Critically high 1.4-6.5 [facility] [place] Comment on above: Performed By: #### L LENO STERN, CMP #### [facility] [address] [place] [address] Dr. Marcell Coates Neutrophils/100 WBC (Bld) 82.6 % Critically high 43.0-75.[address] [facility] Comment on above: Performed By: #### L LENO STERN, CMP #### [facility] [address] [place] [address] Dr. Marcell Coates Platelet mean volume (Bld) [Entitic vol] 9.8 fL Normal 9.5-13.[address] [facility] Comment on above: Performed By: #### L LENO STERN, CMP #### [facility] [address] [place] [address] Dr. Marcell Coates PLT 292 103/ul Normal 150-[address] [facility] Comment on above: Performed By: #### L LENO STERN, CMP #### [facility] [address] [place] [address] Dr. Marcell Coates RBC 4.43 106/ul Normal 4.20-5.40 [facility] Comment on above: Performed By: #### L LENO STERN, CMP #### [facility] [address] [place] [address] [address] Marcell Coates WBC 11.3 103/ul Critically high 4.0-11.0 [facility] Comment on above: Performed By: #### L LENO STERN, CMP #### [facility] [address] [place] [address] [address] Marcell Coates PROF CHEM 8 (BAS METB)on Anion gap [Moles/Vol] 13.8 mmol/L Normal [facility] Comment on above: Performed By: #### B MP #### [facility] [address] [place] [address] Dr. Marcell Coates Calcium [Mass/Vol] 8.9 mg/dL Normal 8.5-10.1 [facility] Comment on above: Performed By: #### B MP #### [facility] [address] [place] [address] [address] Marcell Coates Chloride [Moles/Vol] 102 mmol/L Normal 98-107 [facility] Comment on above: Performed By: #### B MP #### [facility] [address] [place] [address] [address] Marcell Coates CO2 [Moles/Vol] 24.3 mmol/L Normal 21.0-32.0 [facility] Comment on above: Performed By: #### B MP #### [facility] [address] [place] [address] [address] Marcell Coates Creatinine [Mass/Vol] 1.15 mg/dL Critically high 0.55-1.02 [facility] Comment on above: Performed By: #### B MP #### [facility] [address] [place] [address] Dr. Marcell Coates EGFR-AF MALDIVIAN >60 Normal >=60 [facility] Comment on above: Performed By: #### B MP #### [facility] [address] [place] [address] [address] Marcell Coates EGFR-NON AF MALDIVIAN 50 mL/min/1.73m2 Critically low >=60 [facility] Comment on above: Performed By: #### B MP #### [facility] [address] [place] [address] [address] Marcell Coates Glucose [Mass/Vol] 317 mg/dL Critically high 74-106 T [facility] [place] Comment on above: Performed By: #### B MP #### [facility] [address] [address] [address] Marcell Coates Potassium [Moles/Vol] 4.1 mmol/L Normal 3.5-5.1 [facility] Comment on above: Performed By: #### B MP #### [facility] [address] [address] [address] Marcell Coates Sodium [Moles/Vol] 136 mmol/L Normal 136-145 [facility] Comment on above: Performed By: #### B MP #### [facility] [address] [address] [address] Marcell Coates Urea nitrogen [Mass/Vol] 25.0 mg/dL Critically high 7.0-18.0 [facility] Comment on above: Performed By: #### B MP #### [facility] [address] [address] [address] Marcell Coates Urea nitrogen/Creatinine [Mass ratio] 21.7 mg/mg Normal [facility] Comment on above: Performed By: #### B MP #### [facility] [address] [address] [address] Marcell Coates CBC AUTO DIFFon 09-13-2021 BASO # 0.1 103/ul Normal 0.0-0.1 [facility] Comment on above: Performed By: #### C BC ####[facility] [address] [address]Dr. Marcell Coates Basophils/100 WBC (Bld) 0.8 % Normal 0.2-2.0 [facility] Comment on above: Performed By: #### C BC ####[facility] [address] [address]Dr. Marcell Coates EO # 0.4 103/ul Normal 0.0-0.[address] [facility] Comment on above: Performed By: #### C BC ####[facility] [address] [place], [place] [address]Dr. Marcell Coates Eosinophils/100 WBC (Bld) 4.1 % Normal 0.9-7.[address] [facility] Comment on above: Performed By: #### C BC ####[facility] [address] [place], [place] [address]Dr. Marcell Coates Erythrocyte distribution width (RBC) [Ratio] 13.3 % Normal 11.0-15.[address] [facility] Comment on above: Performed By: #### C BC ####[facility] [address] [place], [place] [address]Dr. Marcell Coates Hematocrit (Bld) [Volume fraction] 41.5 % Normal 36.0-48.[address] [facility] Comment on above: Performed By: #### C BC ####[facility] [address] [place], [place] [address]Dr. Marcell Coates Hemoglobin (Bld) [Mass/Vol] 13.6 g/dL Normal 12.0-16.[address] [facility] Comment on above: Performed By: #### C BC ####[facility] [address] [place], [place] [address]Dr. Marcell Coates IG # 0.02 10e3/ul Normal 0.00-0.[address] [facility] Comment on above: Performed By: #### C BC ####[facility] [address] [place], [place] [address]Dr. Marcell Coates IG % 0.2 % Normal 0.0-0.[address] [facility] Comment on above: Performed By: #### C BC ####[facility] [address] [place], [place] [address]Dr. Marcell Coates LYMPH # 3.9 103/ul Critically high 1.2-3.8 The [facility] Comment on above: Performed By: #### C BC ####[facility] [address] [id number]. Marcell Jaxon Lymphocytes/100 WBC (Bld) 37.9 % Normal 20.5-60.[address] [facility] Comment on above: Performed By: #### C BC ####[facility] [address] [address]Dr. Ansilvio Coates MANUAL DIFF REQ NO Normal [facility] Comment on above: Performed By: #### C BC ####[facility] [address] [id number]. Marcell Jaxon MCH (RBC) [Entitic mass] 30.2 pg Normal 26.7-34.[address] [facility] Comment on above: Performed By: #### C BC ####[facility] [address] [place], [place] [address]Dr. Marcell Jaxon MCHC (RBC) [Mass/Vol] 32.8 g/dL Normal 29.9-35.[address] [facility] Comment on above: Performed By: #### C BC ####[facility] [address] [address]Dr. Ansilvio Coates MCV (RBC) [Entitic vol] 92.2 fL Normal 81.0-99.[address] [facility] Comment on above: Performed By: #### C BC ####[facility] [address] [place], [place] [address]Dr. Marcell Coates MONO # 0.8 103/ul Normal 0.3-0.[address] [facility] Comment on above: Performed By: #### C BC ####[facility] [address] [address]Dr. Ansilvio Coates Monocytes/100 WBC (Bld) 8.1 % Normal 1.7-12.[address] [facility] Comment on above: Performed By: #### C BC ####[facility] [address] [place], [place] [address]Dr. Marcell Coates NEUT # 5.0 103/ul Normal 1.4-6.[address] [facility] Comment on above: Performed By: #### C BC ####[facility] [address] [id number]. Marcell Coates Neutrophils/100 WBC (Bld) 48.9 % Normal 43.0-75.[address] [facility] Comment on above: Performed By: #### C BC ####[facility] [address] [id number]. Marcell Coates Platelet mean volume (Bld) [Entitic vol] 9.5 fL Normal 9.5-13.[address] [facility] Comment on above: Performed By: #### C BC ####[facility] [address] [id number]. Marcell Jaxon PLT 288 103/ul Normal 150-[address] [facility] Comment on above: Performed By: #### C BC ####[facility] [address] [address]Dr. Marcell Jaxon RBC 4.50 106/ul Normal 4.20-5.[address] [facility] Comment on above: Performed By: #### C BC ####[facility] [address] [id number]. Marcell Coates WBC 10.2 103/ul Normal 4.0-11.[address] [facility] Comment on above: Performed By: #### C BC ####[facility] [address] [id number]. Marcell Jaxon CRPon 09-13-2021 CRP 1.0 mg/dL Normal <=1.[address] [facility] Comment on above: Performed By: #### L LENO STERN, CMP #### [facility] [address] [address] [address] Marcell Coates Covid-19 PCR (CVDTB)on 08-17 SARS-CoV-2 (COVID-19) RNA RUSSELL+probe Ql (Unsp spec) Not detected Normal NOT DETECTED [facility] Comment on above: Result Comment: When [...] for this test is supported by the [employer] Operator of Health and Human Service's declaration [...] By: #### L LENO STERN, CMP #### [facility] [address] [place] [address] Dr. Marcell Coates GLYCOHEMOGLOBIN A1Con 2021 ADA RECOMMENDATION SEE BELOW Normal [facility] Comment on above: Result Comment: ADA RECOMMENDED LIMIT 4.0 - 6.0 ADA THERAPEUTIC TARGET < 7.0 ACTION SUGGESTED > 7.0 Performed By: #### B MP #### [facility] [address] [place] [address] Dr. Marcell Coates Glucose [Mass/Vol] 128 mg/dL Normal [facility] Comment on above: Performed By: #### B MP #### [facility] [address] [place] [address] Dr. Marcell Coates HbA1c (Bld) [Mass fraction] 6.1 % Normal 4.5-6.2 [facility] Comment on above: Performed By: #### B MP #### [facility] [address] [place] [address] Dr. Marcell Coates PROF CHEM 8 (BAS METB)on Anion gap [Moles/Vol] 13.5 mmol/L Normal [facility] Comment on above: Performed By: #### L LENO STERN, CMP #### [facility] [address] [place] [address] Dr. Marcell Coates Calcium [Mass/Vol] 8.6 mg/dL Normal 8.5-10.1 [facility] Comment on above: Performed By: #### L LENO STERN, CMP #### [facility] [address] [address] [address] Marcell Coates Chloride [Moles/Vol] 107 mmol/L Normal 98-107 [facility] Comment on above: Performed By: #### L LENO STERN, CMP #### [facility] [address] [address] [address] Marcell Coates CO2 [Moles/Vol] 25.5 mmol/L Normal 21.0-32.0 [facility] Comment on above: Performed By: #### L LENO STERN, CMP #### [facility] [address] [address] [address] Marcell Coates Creatinine [Mass/Vol] 1.25 mg/dL Critically high 0.55-1.02 [facility] Comment on above: Performed By: #### L LENO STERN, CMP #### [facility] [address] [address] [address] Marcell Coates EGFR-AF MALDIVIAN 58 mL/min/1.73m2 Critically low >=60 [facility] Comment on above: Performed By: #### L LENO STERN, CMP #### [facility] [address] [address] [address] Marcell Coates EGFR-NON AF MALDIVIAN 47 mL/min/1.73m2 Critically low >=60 [facility] Comment on above: Performed By: #### L LENO STERN, CMP #### [facility] [address] [address] [address] Marcell Coates Glucose [Mass/Vol] 154 mg/dL Critically high 74-106 [facility] Comment on above: Performed By: #### L LENO STERN, CMP #### [facility] [address] [address] [address] Marcell Coates Potassium [Moles/Vol] 4.0 mmol/L Normal 3.5-5.1 [facility] Comment on above: Performed By: #### L LENO STERN, CMP #### [facility] [address] [address] [address] Marcell Coates Sodium [Moles/Vol] 142 mmol/L Normal 136-145 [facility] Comment on above: Performed By: #### L LENO STERN, CMP #### [facility] [address] [address] [address] Marcell Coates Urea nitrogen [Mass/Vol] 18.0 mg/dL Normal 7.0-18.0 [facility] Comment on above: Performed By: #### L IPA LENO, CMP #### [facility] [address] [address] [address] Marcell Coates Urea nitrogen/Creatinine [Mass ratio] 14.4 mg/mg Normal [facility] Comment on above: Performed By: #### L LEENA LENO, CMP #### [facility] [address] [place] [address] Dr. Marcell Coates [facility] 16 mm/hr Normal <=20 [facility] Comment on above: Performed By: #### L LENO STERN, CMP #### [facility] [address] [place] [address] Dr. Marcell Coates XR HIP RT 2 [...] EDDY MELGOZA Date: 2021-09-13 05:33 Normal [facility] XR LSPINE 2_3 VIEWSon 2021 XR LSPINE 2_3 VIEWS EXAMINATION: XR LSPINE 2_3 VIEWS HISTORY: Pain COMPARISON: No relevant [...] LIZANDRO PENDLETON Date: 2021-09-13 07:[address] [facility] CBC W/DIFFon 08-09-2020 BASOPHILS ABS AUTO [facility] 0.1 x10E3/uL Normal 0.0-0.2 [facility] Comment on above: Performed By: #### L AB293, LAB17 #### [facility] 1 , BASOPHILS RELATIVE AUTO [facility] 1 % Normal Not Estab. [facility] Comment on above: Performed By: #### L AB293, LAB17 #### [facility] 1 , Eosinophils (Bld) [#/Vol] 0.2 10*3/uL Normal 0.0-0.4 [facility] Comment on above: Performed By: #### L AB293, LAB17 #### [facility] 1 , Eosinophils/100 WBC (Bld) 3 % Normal Not Estab. [facility] Comment on above: Performed By: #### L AB293, LAB17 #### [facility] 1 , Erythrocyte distribution width (RBC) [Ratio] 11.9 % Normal 11.7-15.4 [facility] Comment on above: Performed By: #### L AB293, LAB17 #### [facility] 1 , Hematocrit (Bld) [Volume fraction] 43.8 % Normal 34.0-46.6 [facility] Comment on above: Performed By: #### L AB293, LAB17 #### [facility] 1 , HEMOGLOBIN [facility] 14.9 g/dL Normal 11.1-15.9 [facility] Comment on above: Performed By: #### L AB293, LAB17 #### [facility] 1 , IMMATURE GRANS (ABS) 0.0 x10E3/uL Normal 0.0-0.1 [facility] Comment on above: Performed By: #### L AB293, LAB17 #### [facility] 1 , Immature granulocytes/100 WBC (Bld) 0 % Normal Not Estab. [facility] Comment on above: Performed By: #### L AB293, LAB17 #### [facility] 1 , Lymphocytes (Bld) [#/Vol] 2.4 10*3/uL Normal 0.7-3.1 [facility] Comment on above: Performed By: #### L AB293, LAB17 #### [facility] 1 , Lymphocytes/100 WBC (Bld) 26 % Normal Not Estab. [facility] Comment on above: Performed By: #### L AB293, LAB17 #### [facility] 1 , MCH (RBC) [Entitic mass] 31.2 pg Normal 26.6-33.0 [facility] Comment on above: Performed By: #### L AB293, LAB17 #### [facility] 1 , MCHC (RBC) [Mass/Vol] 34.0 g/dL Normal 31.5-35.7 [facility] Comment on above: Performed By: #### L AB293, LAB17 #### [facility] 1 , MCV [facility] 92 fL Normal 79-97 [facility] Comment on above: Performed By: #### L AB293, LAB17 #### [facility] 1 , Monocytes (Bld) [#/Vol] 0.5 10*3/uL Normal 0.1-0.9 [facility] Comment on above: Performed By: #### L AB293, LAB17 #### [facility] 1 , Monocytes/100 WBC (Bld) 6 % Normal Not Estab. [facility] Comment on above: Performed By: #### L AB293, LAB17 #### [facility] 1 , NEUTROPHIL ABS AUTO [facility] 6.1 x10E3/uL Normal 1.4-7.0 [facility] Comment on above: Performed By: #### L AB293, LAB17 #### [facility] 1 , NEUTROPHILS RELATIVE AUTO [facility] 64 % Normal Not Estab. [facility] Comment on above: Performed By: #### L AB293, LAB17 #### [facility] 1 , PLATELET COUNT [facility] 336 x10E3/uL Normal 150-450 [facility] Comment on above: Performed By: #### L AB293, LAB17 #### [facility] 1 , RED BLOOD CELL COUNT [facility] 4.77 x10E6/uL Normal 3.77-5.28 [facility] Comment on above: Performed By: #### L AB293, LAB17 #### [facility] 1 , WBC (Bld) [#/Vol] 9.4 10*3/uL Normal 3.4-10.8 [facility] Comment on above: Performed By: #### L AB293, LAB17 #### [facility] 1 , COMPREHENSIVE METABOLIC PANE Bulmaro 08-09-2020 Albumin [Mass/Vol] 4.8 g/dL Normal 3.8-4.8 [facility] Comment on above: Order Comment: Relea se to patient->Immediate Performed By: #### L AB293, LAB17 #### [facility] 1 , Albumin/Globulin [Mass ratio] 1.7 {ratio} Normal 1.2-2.2 [facility] Comment on above: Order Comment: Relea se to patient->Immediate Performed By: #### L AB293, LAB17 #### [facility] 1 , ALP [Catalytic activity/Vol] 74 U/L Normal 48-121 [facility] Comment on above: Order Comment: Relea se to patient->Immediate Result Comment: Pl ease note reference interval change Performed By: #### L AB293, LAB17 #### [facility] 1 , ALT [Catalytic activity/Vol] 13 U/L Normal 0-32 [facility] Comment on above: Order Comment: Relea se to patient->Immediate Result Comment: Perf ormed At: [address] [facility] [address] [id number] Aletha Menendez PhD [id number] Performed By: #### L AB293, LAB17 #### [facility] 1 , AST [Catalytic activity/Vol] 17 U/L Normal 0-40 [facility] Comment on above: Order Comment: Relea se to patient->Immediate Performed By: #### L AB293, LAB17 #### [facility] 1 , Bilirubin [Mass/Vol] 0.2 mg/dL Normal 0.0-1.2 [facility] Comment on above: Order Comment: Relea se to patient->Immediate Performed By: #### L AB293, LAB17 #### [facility] 1 , Calcium [Mass/Vol] 9.9 mg/dL Normal 8.7-10.2 [facility] Comment on above: Order Comment: Relea se to patient->Immediate Performed By: #### L AB293, LAB17 #### [facility] 1 , Chloride [Moles/Vol] 102 mmol/L Normal 96-106 [facility] Comment on above: Order Comment: Relea se to patient->Immediate Performed By: #### L AB293, LAB17 #### [facility] 1 , CO2 [Moles/Vol] 22 mmol/L Normal 20-29 [facility] Comment on above: Order Comment: Relea se to patient->Immediate Performed By: #### L AB293, LAB17 #### [facility] 1 , Creatinine [Mass/Vol] 0.85 mg/dL Normal 0.57-1.00 [facility] Comment on above: Order Comment: Relea se to patient->Immediate Performed By: #### L AB293, LAB17 #### [facility] 1 , EGFR IF NONAFRICN AM 82 mL/min/1.73 Normal >59 [facility] Comment on above: Order Comment: Relea se to patient->Immediate Performed By: #### L AB293, LAB17 #### [facility] 1 , GFR/1.73 sq M.predicted among blacks MDRD (S/P/Bld) [Vol rate/Area] 94 mL/min/{1.73_m2} Normal >59 [facility] Comment on above: Order Comment: Relea se to patient->Immediate Result Comment: [facility] currently reports eGFR in compliance with the current recommendations of the [employer] Kid[employer]. [facility] will update reporting as new guidelines are published from the NKF-ASN Task force. Performed By: #### L AB293, LAB17 #### [facility] 1 , Globulin (S) [Mass/Vol] 2.9 g/dL Normal 1.5-4.5 [facility] Comment on above: Order Comment: Relea se to patient->Immediate Performed By: #### L AB293, LAB17 #### [facility] 1 , Glucose [Mass/Vol] 91 mg/dL Normal 65-99 [facility] Comment on above: Order Comment: Relea se to patient->Immediate Performed By: #### L AB293, LAB17 #### [facility] 1 , Potassium [Moles/Vol] 4.2 mmol/L Normal 3.5-5.2 [facility] Comment on above: Order Comment: Relea se to patient->Immediate Performed By: #### L AB293, LAB17 #### [facility] 1 , Protein [Mass/Vol] 7.7 g/dL Normal 6.0-8.5 [facility] Comment on above: Order Comment: Relea se to patient->Immediate Performed By: #### L AB293, LAB17 #### [facility] 1 , Sodium [Moles/Vol] 139 mmol/L Normal 134-144 [facility] Comment on above: Order Comment: Relea se to patient->Immediate Performed By: #### L AB293, LAB17 #### [facility] 1 , Urea nitrogen [Mass/Vol] 14 mg/dL Normal 6-24 [facility] Comment on above: Order Comment: Relea se to patient->Immediate Performed By: #### L AB293, LAB17 #### [facility] 1 , Urea nitrogen/Creatinine [Mass ratio] 16 mg/mg Normal 9-23 [facility] Comment on above: Order Comment: Relea se to patient->Immediate Performed By: #### L AB293, LAB17 #### [facility] 1 , Vital Signs Date Time Vital Sign Value Performing Clinician Rip siu 01-06-2024 11:030400 Body height 157.5 cm Travis Bowser MD Work Phone: [facility] [employer] [facility] 01-06-2024 11:03-0400 Body mass index (BMI) [Ratio] 38.59 kg/m2 Travis Bowser MD Work Phone: [facility] [employer] [facility] 01-06-2024 11:03040 Body weight 95.71 kg Travis Bowser MD Work Phone: [facility] [employer] [facility] 01-06-2024 11:03-0400 Diastolic blood pressure 79 mm[Hg] Travis Bowser MD Work Phone: [facility] [employer] [facility] 01-06-2024 11:03-0400 Heart rate 70 /min Travis Bowser MD Work Phone: [facility] 01-06-2024 11:03-0400 SaO2% (BldA) [Mass fraction] 93 % Travis Bowser MD Work Phone: [facility] 01-06-2024 11:03-0400 Systolic blood pressure 127 mm[Hg] Travis Bowser MD Work Phone: [facility] 12-09-2023 13:25-0400 Diastolic blood pressure 68 mm[Hg] SALVAGE MACHINE OPERATOR-C Claudine Kastor Work Phone: [facility] 12-09-2023 13:25-0400 Heart rate 66 /min SALVAGE MACHINE OPERATOR-C Claudine Kastor Work Phone: [facility] 12-09-2023 13:25-0400 Respiratory rate 18 /min SALVAGE MACHINE OPERATOR-C Claudine Kastor Work Phone: [facility] 12-09-2023 13:25-0400 SaO2% (BldA) [Mass fraction] 100 % SALVAGE MACHINE OPERATOR-C Claudine Kastor Work Phone: [facility] 12-09-2023 13:25-0400 Systolic blood pressure 128 mm[Hg] SALVAGE MACHINE OPERATOR-C Claudine Kastor Work Phone: [facility] 12-09-2023 10:51-0400 Body height 157.48 cm SALVAGE MACHINE OPERATOR-C Claudine Kastor Work Phone: [facility] 12-09-2023 10:51-0400 Body weight 97.52 kg SALVAGE MACHINE OPERATOR-C Claudine Kastor Work Phone: [facility] 11-06-2023 08:51-0400 Body height 157.48 cm DEWAYNE Hernadez Work Phone: [facility] 11-06-2023 08:51-0400 Body weight 97.06 kg DEWAYNE Hernadez Work Phone: [facility] Encounters Encounter Date Encounter Type Care Provider Facility Start: 02-27-2024 End: 02-27-2024 ambulatory Maged Waterman MD Facility:[facility] Start: 02-05-2024 End: 02-05-2024 ambulatory Lesley Ylui Lanza PAD MAKING MACHINE OPERATOR-SIMULATION ANALYST Facility:[facility] Start: 01-30-2024 End: 02-03-2024 Refill Romeo Lisa Darlene VASQUEZ-SIMULATION ANALYST [facility] Phone[facility] Comment on above: Med Refill Start: 01-29-2024 End: 01-29-2024 ambulatory Maged Waterman MD Facility:[facility] Start: 01-06-2024 End: 01-06-2024 ambulatory TRAVIS BOWSER [facility] Start: 01-06-2024 End: 01-06-2024 Office outpatient visit 25 minutes Travis Bowser MD Work Phone: [facility] Comment on above: Primary hypertension (Primary Dx); Left ventricular failure ([facility]); 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 heart failure ([facility]); Shortness of breath; Acute systolic congestive heart failure ([facility]); Acute on chronic HFrEF (heart failure with reduced ejection fraction) ([facility]) Start: 01-02-2024 End: 01-02-2024 Telephone encounter Michelle Goodwin MA [facility] Start: 01-01-2024 End: 01-07-2024 Refill Josi Ba MD Work Phone: [facility] Comment on above: Med Refill Start: 12-26-2023 End: 12-26-2023 Telephone encounter Mary Vance CMA [facility] Start: 12-22-2023 Registered Recurring DEWAYNE Hernadez Work Phone: [facility] Start: 12-22-2023 ambulatory Claudine Isabell Satya Facility:[facility] Start: 12-17-2023 Non-patient / Non-visit SALVAGE MACHINE OPERATOR-C Claudine Kastor Work Phone: [facility] Work Phone: Start: 12-12-2023 End: 12-12-2023 ambulatory Maged Waterman MD Facility:[facility] Start: 12-09-2023 Non-patient / Non-visit SALVAGE MACHINE OPERATOR-C Claudine Kastor Work Phone: [facility] Work Phone: Start: 12-09-2023 End: 12-09-2023 Admission to same day surgery center SALVAGE MACHINE OPERATOR-C Claudine Kastor Work Phone: [facility] Work Phone: Start: 12-09-2023 End: 12-09-2023 ambulatory SALVAGE MACHINE OPERATOR-C Claudine Whyte Kastor Work Phone: [facility] Work Phone: Start: 11-27-2023 End: 11-27-2023 ambulatory Lesley Lanza APRN-SIMULATION ANALYST Facility:[facility] Start: 11-06-2023 End: 11-06-2023 ambulatory SALVAGE MACHINE OPERATOR-C Claudine Godfreytor Work Phone: [facility] Work Phone: Start: 11-06-2023 End: 11-06-2023 Departed Referred SALVAGE MACHINE OPERATOR-C Claudine Kastor Work Phone: [facility] Work Phone: Start: 09-29-2023 Non-patient / Non-visit SALVAGE MACHINE OPERATOR-C Claudine Kastor Work Phone: [facility] Work Phone: Start: 07-07-2023 End: 07-07-2023 ambulatory [facility] Start: 06-16-2023 End: 06-16-2023 ambulatory Kendrick Aguilar MD Facility[facility] Start: 05-26-2023 End: 05-27-2023 ambulatory JAMAR Rodriguez [facility] Start: 05-16-2023 End: 06-16-2023 ambulatory JAMAR Rodriguez SHADY [facility] Start: 05-14-2023 End: 05-15-2023 ambulatory JOSI BA [facility] Start: 05-08-2023 End: 05-09-2023 ambulatory TYRON WAGNER [facility] Start: 05-07-2023 Refill Josi Ba MD Work Phone: [facility] Start: 05-01-2023 End: 05-16-2023 Orders Only Josi Ba MD Work Phone: [facility] Comment on above: Encounter for screen ing mammogram for malignant neoplasm of breast (Primary Dx) Start: 04-03-2023 Refill Hiro Kaba RN [facility] Start: 03-06-2023 Refill Josi Ba MD Work Phone: [facility] Comment on above: Primary hypertension ; Combined systolic and diastolic congestive heart failure, unspecified HF chronicity ([facility]); Acute combined systolic and diastolic congestive heart failure ([facility]); Cardiomegaly Start: 07-29-2022 End: 07-29-[address] ALISHA GALVEZ . Facility:[facility] Start: 07-15-2022 End: 07-15-2022 ambulatory ROBERT PORTILLO Facility:[facility] Start: 07-10-2022 ambulatory EDILSON~[id number] KENNA PIERSON [facility] Start: 06-18-2022 End: 06-19-[address] ALISHA GALVEZ . Facility:[facility] Start: 06-14-2022 ambulatory EDILSON~[id number] KENNA PIERSON [facility] Start: 06-14-2022 End: 06-14-[address] ALISHA GALVEZ . Facility:[facility] Start: 06-09-2022 End: 06-09-2022 ambulatory PENNY MASON . Facility:[facility] Start: 05-14-2022 ambulatory [id number] KNENA WAGGONER [facility] Start: 05-11-2022 End: 05-11-[address] ISACC SABA Facility:[facility] Start: 04-22-2022 End: 04-22-[address] YOLIS ARDON . Facility:[facility] Start: 04-03-2022 End: 04-03-2022 ambulatory ROBERT PORTILLO Facility:[facility] Start: 01-22-2022 End: 01-22-2022 ambulatory ALVA MIRELA Facility:[facility]1 Start: 12-22-2021 End: 12-22-2021 ambulatory ALVA MIRELA Facility:[facility]1 Start: 11-06-2021 End: 11-07-2021 ambulatory ALVA MIRELA Facility:[facility]1 Start: 09-13-2021 End: 09-14-2021 ambulatory ALVA MIRELA Facility:[facility]1 Procedures Date Procedure Procedure Detail Performing Clinician Start: 01-06-2024 Follow-up visit Follow-up BOLIVAR BOWSER Start: 12-09-2023 Screening colonoscopy N P-C Claudine Hernadez Work Phone: Start: 05-14-2023 Mammography Mary ayala CMA Start: 09-14-2022 Adult depression scr eening assessment Josi Ba MD Work Phone: Start: 05-09-2022 Mammography Josi As if Work Phone: Plan of Treatment Date Care Activity Detail Author Start: 05-14-2025 Screening for malign ant neoplasm of breast [facility] Start: 01-05-2025 Adult BMI Screening [facility] Start: 05-14-2024 Adult BMI Screening Adult [facility] Screen ing [facility] Start: 05-09-2024 Screening for malign ant neoplasm of breast [facility]ammogram [facility] Start: 02-02-2024 Tobacco Counseling Tobacco Counselin g [facility] Start: 01-06-2024 End: 01-05-2025 Echo complete W/O contrast Echo complete W/O contrast Echocardiography Routine Primary hypertension Left ventricular failure (CMS-HCC) 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) Shortness of breath Expected: 01/06/2024, Expires: 01/05/2025 [facility] Work Phone: Comment on above: Expected: 01/06/2024 , Expires: 01/05/2025 Start: 01-06-2024 End: 01-05-2025 NM Heart Perfusion W stress and W radionuclide IV Nuc stress Lexiscan Cardiac Services Routine Primary hypertension Left ventricular failure (CMS-HCC) 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) Shortness of breath Expected: 01/06/2024, Expires: 01/05/2025 [facility] Comment on above: Expected: 01/06/2024 , Expires: 01/05/2025 Start: 01-06-2024 End: 01-06-2024 Patient encounter procedure 01/06/2024 11:00 AM EDT Office Visit [facility] [address] [place] [phone] Travis Bowser MD Formerly [facility], [id number] [place] [address] [facility] Start: 12-09-2023 [facility] Start: 11-29-2023 Adult BMI Screening Adult BMI Screen ing [facility] [employer] [facility] Start: 11-29-2023 Tobacco Screening Tobacco Screening [facility] Start: 11-16-2023 COVID-19 Vaccine ( season) COVID-19 Vaccine ( season) [facility] Start: 11-16-2023 COVID-19 Vaccine ( season) COVID-19 Vaccine ( season) [facility] Start: 11-16-2023 Influenza vaccination Influenza Vacc ine [facility] Start: 09-15-2023 Depression Screening Depression Scre ening [facility] Start: 06-16-2023 End: 06-16-2023 Patient encounter procedure 06/16/2023 3:00 PM EDT Office Visit [facility] [address] [place] [phone] Anusha Roberto MD [address] [facility] [address] [place] [id number] [facility] Start: 05-26-2023 Administration of varicella zoster vaccine Zoster (Shingles) Vaccine (1 of 2) [facility] Start: 05-14-2023 End: 05-14-2023 Patient encounter procedure 05/14/2023 3:15 PM EST Appointment [facility]A [address] [place] [id number] [facility] Start: 05-12-2023 End: 05-12-2023 Patient encounter procedure 05/12/2023 2:45 PM EST Appointment [facility] [address] [place] [phone] Arrived [facility] Comment on above: Arrived Start: 05-08-2023 Subsequent hospital visit by physician [facility] Start: 05-01-2023 End: 05-01-2024 DBT Breast - bilateral screening Mammography screening bilateral with CAD Imaging Routine Encounter for screening mammogram for malignant neoplasm of breast Expected: 05/01/2023, Expires: 05/01/2024 [facility] Work Phone: Comment on above: Expected: 05/01/2023 , Expires: 05/01/2024 Start: 03-31-2023 End: 03-31-2023 Patient encounter procedure 03/31/2023 11:00 AM EST Office Visit [facility] [address] [place] [phone] Tyron Wagner PA [address] [place] [address] [facility] Start: 03-24-2023 End: 03-24-2023 Patient encounter procedure [facility] Start: 11-15-2022 COVID-19 Vaccine ( season) COVID-19 Vaccine ( season) [facility] Start: 11-15-2022 Influenza vaccination Influenza Vacc ine [facility] Start: 05-26-1991 Adult BMI Follow Up Plan Adult BMI F ollow Up Plan [facility] Start: 1984 DTaP,Tdap and Td Vaccines (5 - Tdap) DTaP,Tdap and Td Vaccines (5 - Tdap) [facility] Patient Education Colon Polypect eduardo (DC) Know your Meds [facility] Work Phone: Immunizations Immunization Date Immunization Notes Care Provider Fa cility 05-15-2021 influenza, seasonal, injectable Josi Ba MD Work Phone: [facility] 05-15-2021 influenza virus vaccine, unspecified formulation Josi Ba MD Work Phone: [facility] 01-02-2021 Influenza, injectabl e, Madin Fernanda Canine Kidney, quadrivalent with preservative Josi Ba MD Work Phone: [facility] 11-14-2020 COVID-19, mRNA, LNP- S, PF, 30mcg/0.3mL Dose Josi Ba MD Work Phone: [facility] 11-26-2018 influenza, injectabl e, quadrivalent, preservative free Josi Ba MD Work Phone: [facility] 12-03-2007 hepatitis B vaccine, adult dosage Josi Ba MD Work Phone: [facility] 08-27-2007 hepatitis B vaccine, adult dosage Josi Ba MD Work Phone: [facility] 07-27-2007 hepatitis B vaccine, adult dosage Josi Ba MD Work Phone: [facility] 04-16-1982 measles, mumps and rubella virus vaccine Josi Ba MD Work Phone: [facility] 10-31-1978 diphtheria, tetanus toxoids and pertussis vaccine Josi Ba MD Work Phone: [facility] 10-31-1978 poliovirus vaccine, unspecified formulation Josi Ba MD Work Phone: [facility] 12-01-1976 poliovirus vaccine, unspecified formulation Josi Ba MD Work Phone: [facility] 07-05-1975 diphtheria, tetanus toxoids and pertussis vaccine Josi Ba MD Work Phone: [facility] 07-05-1975 poliovirus vaccine, unspecified formulation Josi Ba MD Work Phone: [facility] 09-29-1974 diphtheria, tetanus toxoids and pertussis vaccine Josi Ba MD Work Phone: [facility] 09-29-1974 measles, mumps and rubella virus vaccine Josi Ba MD Work Phone: [facility] 09-29-1974 poliovirus vaccine, unspecified formulation Josi Ba MD Work Phone: [facility] 08-03-1974 diphtheria, tetanus toxoids and pertussis vaccine Josi Ba MD Work Phone: [facility] 08-03-1974 poliovirus vaccine, unspecified formulation Josi Ba MD Work Phone: [facility] Payers Date Payer Category Payer Self-pay 2023 Unknown 2022 Medicaid [id number] 2022 Medicaid [id number] 1975 Unknown [id number] 2.16.84 0.1.101658.3.579.2.593 1973 Unknown [id number] 2.16.84 0.1.741784.3.579.2.593 1973 Unknown [id number] 2.16.84 0.1.672881.3.579.2.593 1973 Unknown [id number] 2.16.84 0.1.436209.3.579.2.593 1973 Unknown [id number] 2.16.84 0.1.729897.3.579.2.593 1973 Unknown [id number] 2.16.84 0.1.267875.3.579.2.593 1973 Unknown [id number] 2.16.84 0.1.488679.3.579.2.593 1973 Unknown [id number] 2.16.84 0.1.117680.3.579.2.593 1973 Unknown [id number] 2.16.84 0.1.016877.3.579.2.593 1973 Unknown [id number] 2.16.84 0.1.455122.3.579.2.593 1973 Unknown [id number] 2.16.84 0.1.973397.3.579.2.593 1973 Unknown [id number] 2.16.84 0.1.940040.3.579.2.593 1973 Unknown [id number] 2.16.8 40.1.093429.3.579.2.1286 1973 Unknown [id number] .16.8 40.1.125132.3.579.2.1286 1973 Unknown [id number] 2.16.8 40.1.364981.3.579.2.1286 1973 Unknown [id number] 2.16.8 40.1.252298.3.579.2.1286 1973 Unknown [id number] .16.8 40.1.026521.3.579.2.1286 1973 Unknown [id number] 2.16.8 40.1.221877.3.579.2.1286 1973 Unknown [id number] 2.16.8 40.1.482950.3.579.2.1286 1973 Unknown [id number] 2.16. 840.1.975021.3.579.2.196 1973 Unknown [id number] 2.16. 840.1.298683.3.579.2.196 1973 Unknown [id number] 2.16. 840.1.203075.3.579.2.196 1973 Unknown [id number] 2.16. 840.1.828716.3.579.2.196 1973 Unknown [id number] 2.16. 840.1.897014.3.579.2.196 1973 Unknown [id number] 2.16. 840.1.296138.3.579.2.196 1973 Unknown [id number] 2.16. 840.1.430763.3.579.2.196 1959 Unknown [id number] Private Health Insurance [id number] Unknown [id number] 2.16.8 40.1.827239.3.579.2.531 Unknown [id number] 2.16.8 40.1.184038.3.579.2.531 Unknown [id number] 2.16.8 40.1.921490.3.579.2.531 Social History Date Type Detail Facility Start: 08-22-2022 [facility] History of tobacco use Cigarette Smoker P [facility] Start: 08-22-2022 End: 01-06-2024 Cigarettes smoked current (pack per day) - Reported 0.5 [facility] Start: 08-22-2022 Tobacco use and exposure Smoke less tobacco non-user [facility] Start: 11-28-2022 End: 05-14-2023 Alcohol intake Lifetime non-drinker (finding) [facility] Start: 09-14-2022 End: 01-06-2024 Alcohol Use Disorder Identification Test - Consumption [AUDIT-C] [facility] How often to you hav e a drink containing alcohol? Never [facility] How many standard dr inks containing alcohol do you have on a typical day? Patient does not drink [facility] Start: 1975 Sex Assigned At Not on file P [facility] Start: 12-09-2023 Tobacco smoking stat [facility] Smoker (finding) [facility] Start: 1975 Sex Assigned At Female F [facility] Start: 10-20-2014 Sex Female (finding) [facility] Goals Date Patient Goal Desired Activity /State Personal health goal Comment on above: Formatting of this n ote might be different from the original. Evaluation of progress towards goal: safe transition from PMH to TTH Clinical Notes 08-09-2020 to 01-06-2024 Travis Bowser MD - 01/06/2024 11:00 AM EDTTelephone Encounter - Michelle Goodwin MA - 01/02/2024 11:55 AM EDTTelephone Encounter - Michelle Goodwin MA - 01/02/2024 11:55 AM EDT Note Date & Type Note Facility 01-06-2024 History of Presen t illness Narrative Karen Griffithsheldon Knight Date of visit: 01/06/2024 Date of : 1975 Age: 48 y.o. Patient Active Problem List Diagnosis Knee pain, chronic Degenerative arthritis of left knee Hypertension Morbid obesity ([facility]) Osteoarthritis Depression GERD (gastroesophageal reflux disease) ABBEY (obstructive sleep apnea) Respiratory failure with hypercapnia ([facility]) Combined systolic and diastolic congestive heart failure ([facility]) Left ventricular failure ([facility]) Right arm pain ASCVD (arteriosclerotic cardiovascular disease) Dyslipidemia Acute on chronic HFrEF (heart failure with reduced ejection fraction) ([facility]) 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 180 tablet 0 aspirin 81 mg take 1 tablet by mouth every morning 30 tablet 10 bumetanide (BUMEX) 0.5 mg tablet TAKE 1 TABLET BY MOUTH TWICE DAILY BEFORE MEALS 60 tablet 10 empagliflozin (JARDIANCE) 10 mg tablet tablet Take 1 tablet (10 mg total) by mouth in the morning. 90 tablet 1 famotidine (PEPCID) 20 mg tablet Take 1 tablet (20 mg total) by mouth in the morning and 1 tablet (20 mg total) before bedtime. isosorbide mononitrate (IMDUR) 30 mg 24 hr tablet take 1 tablet by mouth once daily 90 tablet 0 metFORMIN (FORTAMET) 500 MG (OSM) 24 hr tablet Take 1 tablet (500 mg total) by mouth daily with breakfast. metoprolol succinate XL (TOPROL XL) 100 mg 24 hr tablet Take 1 tablet (100 mg total) by mouth in the morning. 90 tablet 1 nystatin (MYCOSTATIN) powder Apply 1 Application topically in the morning and 1 Application at noon and 1 Application in the evening and 1 Application before bedtime. 15 g 0 omeprazole (PriLOSEC) 40 mg capsule TAKE 1 CAPSULE BY MOUTH IN THE MORNING 30 capsule 10 ondansetron (ZOFRAN) 4 mg tablet take 1 tablet by mouth every 6 hours if needed for nausea or vomiting promethazine (PHENERGAN) 12.5 mg tablet Take 1 tablet (12.5 mg total) by mouth every 6 (six) hours as needed for nausea or vomiting. 30 tablet 0 rosuvastatin (CRESTOR) 10 mg tablet TAKE 2 TABLETS BY MOUTH EACH MORNING 60 tablet 10 spironolactone (ALDACTONE) 25 mg tablet take 1 tablet by mouth in the morning 30 tablet 10 VENTOLIN HFA 90 mcg/actuation inhaler 2 puffs every 4 (four) hours as needed. sacubitriL-valsartan (ENTRESTO) 24-26 mg tablet Take 1 tablet by mouth in the morning and 1 tablet before bedtime. (Patient not taking: Reported on 01/06/2024) 180 tablet 1 No current facility-administered medications for this visit. Chief Complaint Patient presents with Follow-up Congestive Heart Failure History of Present Illness Karen Knight was seen in follow-up in the [facility] office. Records are reviewed. She is a 48-year-old obese woman with diabetes, modest essential hypertension, nonischemic cardiomyopathy, small-vessel obstructive coronary artery disease. She initially presented in August of 2022 with worsening breathlessness pedal edema and chest pain. Echocardiogram revealed ejection fraction on the order of 25-30% with [id number] tricuspid regurgitation and estimates of elevation right-sided pressures. She was transferred to [facility] underwent cardiac catheterization ultimately through a right femoral artery approach. Right radial approach was attempted although this suggested that the right radial artery was thrombosed. She was placed ultimately on Eliquis by vascular surgery. She was started on guideline directed therapy although never wound up starting be Entresto due to cost. She has been good about taking her diuretics and has not had further problems with volume overload. She has been lost to cardiology and vascular follow-up since She continues to have a vague chest pain sensation and was referred for stress testing by ?. She was only able to walk 3 minutes on a standard Ted protocol without ischemia and stress test was stopped. She reports overall that she is feeling reasonably well. She denies palpitations syncope or near-syncope. Past Medical History: Diagnosis Date Arthritis CHF (congestive heart failure) ([facility]) Diabetes mellitus type 2, controlled ([facility]) GERD (gastroesophageal reflux disease) Hypertension Obesity Shortness of breath No data recorded No data recorded No data recorded Past Surgical History: Procedure Laterality Date Coronary angiogram and right heart and left ventricular gram/pressure N/A 09/03/2022 Performed by Victor Hugo Jiménez MD at [facility] HYSTERECTOMY OOPHORECTOMY REPLACEMENT TOTAL KNEE BILATERAL Family History Problem Relation Age of Onset Breast cancer Mother 67 Heart disease Mother Gerardo Breast Cancer Mother No Known Problems Father No Known Problems Sister Social History Socioeconomic History Marital status: Spouse name: Not on file Number of children: Not on file Years of education: Not on file Highest education level: Not on file Occupational History Not on file Tobacco Use Smoking status: Every Day Current packs/day: 0.50 Types: Cigarettes Smokeless tobacco: Never Vaping Use Vaping status: Never Used Substance and Sexual Activity Alcohol use: Never Drug use: Never Sexual activity: Defer Partners: Male control/protection: Surgical Other Topics Concern Caffeine Use Yes Social History Narrative Not on file Social Drivers of Health Financial Resource Strain: Not on file Food Insecurity: No Food Insecurity (11/28/2022) Hunger Screening Food Insecurity - Worry: Never True Food Insecurity - Inability: Never True Transportation Needs: Not on file Physical Activity: Not on file Stress: Not on file Social Connections: Not on file Interpersonal Safety: Not on file Housing Instability: Not on file Review of Systems Review of Systems Constitutional: Negative for malaise/fatigue and weight gain. HENT: Negative for hearing loss and nosebleeds. Eyes: Negative for blurred vision and double vision. Respiratory: Negative for shortness of breath, sleep disturbances due to breathing and wheezing. Endocrine: Negative for polydipsia. Skin: Negative for color change, itching and rash. Musculoskeletal: Negative for back pain, falls, joint swelling, muscle cramps and muscle weakness. Gastrointestinal: Negative for heartburn, hematochezia and melena. Genitourinary: Negative for hematuria. Neurological: Negative for dizziness, headaches, light-headedness, loss of balance, numbness, seizures and tremors. Psychiatric/Behavioral: Negative for altered mental status, depression and memory loss. CARDIOVASCULAR: Please review HPI. Physical Examination General appearance: Alert, oriented and cooperative. In no acute distress. Skin: Warm and dry to touch. Head: Normocephalic, without obvious abnormality, atraumatic. Ears, Nose, Mouth, Throat: Throat clear without erythema or exudate. Dentition intact. Eyes: Conjunctivae unremarkable, EOM intact. Neck: No JVD, No carotid bruit. Neck supple, trachea midline. Respiratory: Clear to auscultation bilaterally, no use of accessory muscles. Cardiovascular: RRR with normal S1 and S2 with no murmurs. Gastrointestinal: Soft, non-tender. Bowel sounds normal. Musculoskeletal: No peripheral edema. Absent right radial pulse. Brisk ulnar pulse. Good capillary refill fingers and thumb Neurologic: Oriented to time, person and place, affect appropriate. No focal/major motor defects noted. Psychiatric: Appropriate mood, memory and judgement. VITAL SIGNS: Ht 157.5 cm (5' 2 ) Wt 95.7 kg (211 lb) LMP (LMP Unknown) BMI 38.59 kg/m Orders Placed or Reconciled This Encounter Medications metFORMIN (FORTAMET) 500 MG (OSM) 24 hr tablet Sig: Take 1 tablet (500 mg total) by mouth daily with breakfast. There are no discontinued medications. IMPRESSIONS/PLAN 1. Primary hypertension 2. Left ventricular failure (CMS-HCC) 3. 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) 4. Shortness of breath 1. Nonischemic dilated cardiomyopathy. She actually has not particularly volume overloaded. She is not able to afford Entresto and I have started her on Cozaar 25 daily. I would continue her on the spironolactone and metoprolol succinate. I have made no change in her current diuretic. Repeat echocardiogram to re discuss AICD placement is pending. She has declined to consider this in the past 2. Chronic systolic congestive failure as noted 3. Chest pain. She has small-vessel obstructive coronary disease. I have rescheduled her stress testing with Lexiscan. 4. She has evidence of pulmonary hypertension although at the time her wedge was markedly elevated. Hopefully will be able to get and estimates of PA systolic pressures on echo 5. Encouraged to quit smoking 6. Dyslipidemia on therapy 7. Now chronically occluded right radial artery. I have discontinued the Eliquis TODAYS ORDERS No orders of the defined types were placed in this encounter. FOLLOW UP No follow-ups on file. PCP: CLAUDINE HERNADEZ APRN-LANRE Referring Physician: Josi Ba MD [address] [facility] [place] [address] documented in this encounter [facility] 01-02-2024 Miscellaneous Notes Called patient to remind them to bring their most current copy of their medication list with them to their appt. Patient verbalizes understanding. documented in this encounter [facility] 01-02-2024 Telephone encounter Note Called patient to remind them to bring their most current copy of their medication list with them to their appt. Patient verbalizes understanding. [facility] 01-01-2024 Miscellaneous Notes Discontinued at visit with FRS on 01/05 documented in this encounter [facility] 01-01-2024 Telephone encounter Note Discontinued at visit with FRS on 10/22 [facility] 12-26-2023 Miscellaneous Notes PHONED PT TO SCHEDULE APPT PER [facility], LM ON VM TO CALL OFFICE TO SCHEDULE APPT. documented in this encounter [facility] 12-26-2023 Telephone encounter Note PHONED PT TO SCHEDULE APPT PER [facility], MISAEL ON VM TO CALL OFFICE TO SCHEDULE APPT. [facility] 12-09-2023 Procedure note [facility] 04-03-2023 Miscellaneous Notes Images from the original note were not included. documented in this encounter [facility] 04-03-2023 Telephone encounter Note Images from the original note were not included. [facility] 08-09-2020 Note Encounter Department : [facility] Progress Notes by REMBERTO Mcclellan at 08/09/2020 3:00 PM Author: REMBERTO McclellanService: -Author Type: Nurse Practitioner Filed: 08/09/2020 4:11 PMEncounter Date: 08/09/2020tatus: Signed Wire Threader: REMBERTO Mcclellan (Nurse Practitioner) Karen Stein [address] [place] [address] : 45 y.o.: 1975Phone: (home) Encounter Date: 08/09/2020 Assessment Assessment and Plan: ICD-10-CM 1.Essential hypertension [id number] tartrate 37.5 mg Tab CBC W/DIFF Comprehensive Metabolic Panel Diagnoses and all orders for this visit: Essential hypertension (Primary) (Chronic) - metoprolol tartrate 37.5 mg Tab Dispense: 30 tablet; Refill: 6 - CBC W/DIFF - Comprehensive Metabolic Panel Will increase patient metoprolol to 37.5mg and have patient call in 2 week with an update. Will draw some labs in the office today. [facility] Evaluation as of 08/09/2020: -Determined Barrier: Inadequate [...] at visit Current Outpatient Medications Ordered in [facility] MedicationSigDispenseRefill -hydroCHLOROthiazide (HYDRODIURIL) 25 mg tabletTake 25 mg by mouth 2 times a day. -lisinopriL (ZESTRIL) 40 mg tabletTake 40 mg by mouth daily. -metoprolol tartrate 37.5 mg TabTake 37.5 mg by mouth 2 times a day.30 tablet6 -topiramate (TOPAMAX) 25 mg tabletTake 50 mg by mouth daily. No current [facility]-ordered facility-administered medications on file. No Known [...] necessary. Electronically Signed by: Landy SR 08/09/2020 [facility] 08-09-2020 Note Encounter Department : [facility] Progress Notes by REMBERTO Mcclellan at 08/09/2020 3:00 PM Author: REMBERTO McclellanSermaritae: -Author Type: Nurse Practitioner Filed: 08/10/2020 9:48 AMEncounter Date: 08/09/2020tatus: Signed Wire Threader: REMBERTO Mcclellan (Nurse Practitioner) Please inform patient that her labs are all normal. Please inform her that her kidney function is back to normal [facility] 08-09-2020 Note Encounter Department : [facility] Progress Notes by Maci Holden CMA at 08/09/2020 3:00 PM Author: Maci Holden CMAService: -Author Type: Wireless Watcher Filed: 08/10/2020 12:44 PMEncounter Date: 08/09/2020tatus: Signed Wire Threader: Maci Holden CMA (Wireless Watcher) Left VM for patient with results and advised to return call with questions or concerns. [facility] Evaluation note Diagnosis Primary hypertension Unspecified essential hypertension Combined systolic and diastolic congestive heart failure, unspecified HF chronicity (CMS-HCC) Acute combined systolic and diastolic congestive heart failure (CMS-HCC) Cardiomegaly documented in this encounter [facility]* Diagnosis Encounter for screening mammogram for malignant neoplasm of breast- Primary [facility] in this encounter [facility] noteNo assessment information available [facility] Work Phone: Evaluation note* Diagnosis Primary hypertension- Primary Unspecified essential hypertension Left ventricular failure (CMS-HCC) Left heart failure 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) Shortness of breath Acute systolic congestive heart failure (CMS-HCC) Acute on chronic HFrEF (heart failure with reduced ejection fraction) (CMS-HCC) documented in this encounter [facility]* Diagnosis Cardiomyopathy, unspecified type (CMS-HCC)- Primary documented in this encounter [facility] SystemHistory and physical note Author Natalie Garcia [facility] December 09, 2023 12:25pm Note Date/Time December 09, 2023 11:55am [facility] [address] [place] [address] Gastroenterology H&P Signed Patient: Karen Knight MR#: [id number] : 1975 Acct:[id number] Age/Sex: 48 / F Adm Date: 4 Loc: Room: Type: [facility] Attending Dr: Natalie Garcia DO Copies to: DO Claudine Etienne [facility]~ Date of Service: 12/09/2023 HISTORY & PHYSICAL: Patient's history with special attention to the cardiovascular, pulmonary systems and the current problem was reviewed with the patient immediately prior to the procedure. Present medications and doses reviewed in the EMR. Allergies and pertinent laboratory tests were also reviewedat this time in the EMR. The physical examination, as below, was then performed. Indication, assessment and HPI: 48-year-old female who presents for screening colonoscopy. last colonoscopy several yrs ago. Family history of GI malignancy? No PHYSICAL EXAMINATION General appearance: cooperative, NAD Skin: No jaundice, no rash or lesions Head: NCAT Eyes: Anicteric Neck: Supple Lungs: Normal respiratory effort, no use of accessory muscles Abdomen: Soft, nondistended Neuro: No focal deficits, Ox3. REVIEW OF SYSTEMS Constitutional: Denies malaise, fevers Cardiovascular: Denies chest pain, palpitations Respiratory: Denies shortness of breath, wheezing Gastrointestinal: As per HPI Genitourinary: Denies dysuria, polyuria Musculoskeletal: Denies joint swelling, joint stiffness Neurological: Denies confusion, numbness, tingling Endocrine: Denies fatigue Written informed consent obtained from the patient. Risks (including but not limited to perforation, infection, bloating, bleeding, need for emergent surgeryand loss of life), benefits and alternatives explained and questions answered. The patient verbalized understanding. Based on history patient is an appropriate candidate for the procedure. Natalie Garcia DO Present medication and doses reviewed in the EMR Documented By: Natalie Garcia DO 12/09/23 1154 Signed By: <Electronically signed by Natalie Garcia DO> 12/09/23 1225 [facility] Work Phone: InstructionsNot on filedocumented in this encounter [facility] filed[facility] in [facility] filedocumented in this encounter [facility] on filedocumented in this encounter [facility]Not on filedocumented in this encounter [facility] on filedocumented in this encounter [facility] on filedocumented in this encounter [facility] Summary Purpose Family History No Family History Records Found Relationship Condition Age at Onset Recorded Date/T lanre mother Heart disease Unknown brother Congestive heart failure Unknown father Congestive heart failure Unknown family member Diabetes mellitus Unknown Advance Directives No Advanced Directives Records FoundLatest Code Status on File Code Status Date Activated Date Inactivated Comments Full Code 09/13/2022 10:36 PM 09/15/2022 6:30 PM Code Status History Code Status Date Activated Date Inactivated Comments Full Code 09/12/2022 5:05 PM 09/13/2022 10:01 PM Advance Directive Response Recorded Date/ Time Advance Directives No November 06, 2023 9:07am Date Activated Date Inactivated Comments 09/13/2022 10:36 PM 09/15/2022 6:30 PM Date Activated Date Inactivated Comments 09/12/2022 5:05 PM 09/13/2022 10:01 PM Date Activated Date Inactivated Comments 09/13/2022 10:36 PM 09/15/2022 6:30 PM Date Activated Date Inactivated Comments 09/12/2022 5:05 PM 09/13/2022 10:01 PM Chief Complaint and Reason for Visit Chief Complaint Screening Screening Chief Complaint Screening Screening Screening Amb Documentation BH Additional Source Comments INFORMATION SOURCE (unrecogn ized section and content) DATE CREATED AUTHOR 08/12/2020 [facility] DATE CREATED AUTHOR AUTHOR'S ORGANIZ ATION 07/11/2022 [facility] DATE CREATED AUTHOR AUTHOR'S ORGANIZ ATION 07/30/2022 [facility] DATE CREATED AUTHOR AUTHOR'S ORGANIZ ATION 06/16/2023 [facility] DATE CREATED AUTHOR AUTHOR'S ORGANIZ ATION [facility]/2024 [facility] DATE CREATED AUTHOR AUTHOR'S ORGANIZ ATION 01/09/2024 [facility] DATE CREATED AUTHOR AUTHOR'S ORGANIZ ATION 03/08/2024 [facility] Reason for Visit (unrecogniz ed section and content) Reason Comments Med Refill Reason Onset Date Comments Med Refill 04/03/2023 Reason Comments Follow-up Congestive Heart Failure Care Teams (unrecognized sec tion and content) Team Status: Active Member Role Status Dates DEWAYNE Quick Primary Care Provider Act casey Team Status: Inactive Member Role Status Dates Natalie Garcia DO Attending Provider Active St art: November 06, 2023 End: November 06, 2023 DEWAYNE Quick Primary Care Provider, Referring Provider Active Start: November 06, 2023 End: November 06, 2023 Team Status: Inactive Member Role Status Dates DEWAYNE Quick Primary Care Provider Act casey Start: December 09, 2023 End: December 09, 2023 Natalie Garcia DO Attending Provider Active St art: December 09, 2023 End: December 09, 2023 Team Status: Active Member Role Status Dates DEWAYNE Quick Primary Care Provider Active Start: November 162023 Natalie Garcia DO Attending Provider, Other Provider Active Start: December 09, 2023 Team Status: Active Member Role Status Dates DEWAYNE Quick Primary Care Provider Act casey Start: December 17, 2023 Leah Hess LPN Attending Provider Active St art: December 17, 2023 Team Status: Active Member Role Status Dates DEWAYNE Quick Primary Care Provider Act casey Start: December 22, 2023 Fletcher Flores MD Attending Provider Active Start: December 22, 2023 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 Relationship Specialty Start Date End Date Josi Ba MD [address] [place] [address] PCP - General Internal Medicine 09/12/22 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 Relationship Specialty Start Date End Date Josi Ba MD [address] [place] [address] PCP - General Internal Medicine 09/12/22 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 Relationship Specialty Start Date End Date Josi Ba MD [address] [place] [address] PCP - General Internal Medicine 09/12/22 Team Status: Active Member Role Status Dates Natalie Garcia DO Attending Provider Active St art: September 29, 2023 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 Relationship Specialty Start Date End Date Josi aB MD [address] [place] [address] PCP - General Internal Medicine 09/12/22 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 Relationship Specialty Start Date End Date Josi Ba MD [address] [place] [address] PCP - General Internal Medicine 09/12/22 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 Relationship Specialty Start Date End Date Claudine Hernadez APRN-CNP [address] [place] [address] PCP - General Nurse Practitioner 01/06/24 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 Relationship Specialty Start Date End Date Claudine Hernadez APRN-CNP [address] [place] [address] PCP - General Nurse Practitioner 01/06/24 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 Relationship Specialty Start Date End Date Claudine Hernadez APRN-CNP [address] [place] [address] PCP - General Nurse Practitioner 01/06/24 FOR RECORDS PERTAINING TO PATIENTS WHO ARE [...] BE BASED ON THE PRIMARY CLINICAL RECORDS. [facility] [employer] [facility]. provides no warranty or guarantee of the accuracy or completeness of information in this document.
--- NOTE | 2024-03-15 20:40 | XR_ITS ---
The [address] [address] Patient Name: CHINMAY HANNAH MRN: [id number] date: 1975 Sex: F Assigned Patient Location: ER Current Patient Location: ED.MAIN Accession/Order Number: [id number] Exam Date: 03/15/2024 21:12 Report Date: 03/15/2024 21:37 At the request of: ALISHA MARKER Procedure: XR chest 2V EXAMINATION: XR chest 2V HISTORY: cough COMPARISON: No relevant comparison available. FINDINGS: LUNGS: No significant pulmonary parenchymal abnormalities. VASCULATURE: No increased pulmonary vasculature. PLEURA: No pneumothorax, effusion, or pleural thickening. CARDIAC: No cardiomegaly or cardiac silhouette abnormality. MEDIASTINUM: No visible mass or adenopathy. BONES: No fracture or visible bone lesion. OTHER: Negative. XR/XR chest 2V IMPRESSION: 1. No acute cardiopulmonary process. Electronically authenticated by: JT GRADY Date: 03/15/2024 21:37
--- NOTE | 2024-03-15 20:40 | ED.URI1 ---
HPI - URI/Sore Throat General Chief Complaint: Upper Respiratory Infection Stated Complaint: SORE THROAT Time Seen by Provider: 03/15/24 20:35 Source: patient Limitations: no limitations History of Present Illness HPI Narrative: This 48-year-old female presents for evaluation of fever, cough, body aches, headache and pain in her chest with coughing for the past 2 days. She also states that her tongue hurts. She denies any specific shortness of breath. She has intermittently taken Tylenol for her pain. She is on Eliquis. She denies any nausea vomiting or diarrhea. She denies any flank pain or urinary symptoms. She does not have any neck pain or stiffness. She does not have any skin rash. Related Data Home Medications ?Medication ?Instructions ?Recorded ?Confirmed aspirin 81 mg tablet,delayed 81 mg PO DAILY 03/13/23 03/15/24 release (Lynn Low Dose Aspirin) bumetanide 0.5 mg tablet 1 mg PO DAILY 03/13/23 03/15/24 empagliflozin 10 mg tablet 10 mg PO DAILY 03/13/23 03/15/24 (Jardiance) metoprolol succinate 100 mg 100 mg PO DAILY 03/13/23 07/07/23 tablet,extended release 24 hr omeprazole 40 mg capsule,delayed 40 mg PO DAILY 03/13/23 07/07/23 release rosuvastatin 10 mg tablet 20 mg PO DAILY 03/13/23 07/07/23 spironolactone 25 mg tablet 25 mg PO DAILY 03/13/23 07/07/23 isosorbide mononitrate 30 mg 30 mg PO DAILY 06/02/23 03/15/24 tablet,extended release 24 hr Allergies Allergy/AdvReac Type Severity Reaction Status Date / Time codeine AdvReac Mild Nausea Verified 03/15/24 20:37 keflex AdvReac Intermediate Hallucinati Uncoded 03/15/24 20:37 ng Review of Systems ROS Status of ROS 10 or more systems reviewed and unremarkable except as noted in history and below [facility] Medical History (Updated 03/15/24 @ 21:25 by Khushbu Hernandez MD) Osteoarthritis ?M19.90 - Unspecified osteoarthritis, unspecified site (ICD-10) Heartburn ?R12 - Heartburn (ICD-10) Smoker ?F17.200 - Nicotine dependence, unspecified, uncomplicated (ICD-10) HTN (hypertension) ?I10 - Essential (primary) hypertension (ICD-10) CHF (congestive heart failure) ?I50.9 - Heart failure, unspecified (ICD-10) Surgical History (Updated 07/07/23 @ 13:37 by Sonya Denis RN) History of hysterectomy ?Z90.710 - Acquired absence of both cervix and uterus (ICD-10) History of shoulder surgery ?Z98.890 - Other specified postprocedural states (ICD-10) History of knee replacement ?Z96.659 - Presence of unspecified artificial knee joint (ICD-10) Social History Smoking status: Current every day smoker Little interest or pleasure in doing things: not at all Feeling down, depressed, or hopeless: not at all Exam Narrative Exam Narrative: Vital signs and Nursing Notes reviewed: Patient is afebrile with a normal pulse, blood pressure is mildly elevated 136/93, she is not hypoxic with pulse ox of 97% on room air General: Awake, alert, oriented, no acute distress, overweight female, she is speaking complete sentences. There is no muffled sound to her voice HEENT: Normocephalic atraumatic, mucous membranes are moist and pink, there is a coating on the tongue that may be thrush, eyes are clear, normal conjunctiva, vision is grossly intact, posterior pharynx is erythematous with a normal-appearing uvula, no sign of any peritonsillar abscess or swelling of the tongue, uvula or pharyngeal soft tissues. Her speech is clear, there is no pooling of secretions, trismus or drooling. Neck: Supple, no meningeal signs, mild anterior cervical lymphadenopathy Chest: Lungs are clear to auscultation with good air entry, there is no wheezing rhonchi or rales appreciated no accessory muscle use, patient is speaking in complete sentences-no chest wall tenderness to palpation CVS: Regular rate and rhythm S1-S2, no murmurs rubs or gallops, pulses are brisk and equal bilaterally ABD: Soft, nondistended, nontender, no rebound guarding or rigidity, bowel sounds are normal, no pulsatile masses appreciated Extremities: Moving all extremities, no lower extremity tenderness or swelling noted, negative Homans' sign, pulses are brisk and equal bilaterally Skin: Normal in appearance without rash,pallor, petechiae or purpura Neuro: No focal deficits Constitutional Vital Signs, click to edit/add: Last Vital Signs Temp 97.6 F 03/15/24 20:34 Pulse 88 03/15/24 20:34 Resp 18 03/15/24 20:34 BP 136/93 H 03/15/24 20:34 Pulse Ox 97 03/15/24 20:34 O2 Del Method Room Air 03/15/24 20:34 Course Vital Signs Vital signs: Vital Signs Temperature 97.6 F 03/15/24 20:34 Pulse Rate 88 03/15/24 20:34 Respiratory Rate 18 03/15/24 20:34 Blood Pressure 136/93 H 03/15/24 20:34 Pulse Oximetry 97 03/15/24 20:34 Oxygen Delivery Method Room Air 03/15/24 20:34 Temperature 97.6 F 03/15/24 20:34 Pulse Rate 88 03/15/24 20:34 Respiratory Rate 18 03/15/24 20:34 Blood Pressure 136/93 H 03/15/24 20:34 Pulse Oximetry 97 03/15/24 20:34 Oxygen Delivery Method Room Air 03/15/24 20:34 MDM - URI/Sore Throat MDM Narrative Medical decision making narrative: This 48-year-old female with a history of type 2 diabetes, hypertension, hyperlipidemia presents for evaluation of 2 days of sore throat, nasal congestion and a cough. He has not had a fever or chills. She states that her tongue hurts. She has a coating on her tongue which is questionable thrush. She was medicated emergency department with Tylenol and a dose of Diflucan as nystatin is not available at this time. She is negative for strep, flu and COVID-19. Two-view chest x-ray was reviewed by myself and does not show any acute infiltrate. She was medicated with a dose of amoxicillin for the pharyngitis and will be discharged home with amoxicillin and nystatin suspension for the thrush. She was encouraged room plenty of fluids monitor her blood glucose closely and return the emergency department as needed for ongoing or worsening symptoms. Lab Data Labs: Lab Results 03/15/24 Range/Units 20:42 Influenza Type A Ag Negative Influenza Type B Ag Negative SARS-CoV-2 Ag (CV2AG) Negative (NEGATIVE) Streptococcus Screen Negative Discharge Plan Discharge Chief Complaint: Upper Respiratory Infection Clinical Impression: Pharyngitis, Oral thrush Patient Disposition: Home, Self-Care Time of Disposition Decision: 21:24 Condition: Good Prescriptions / Home Meds: No Action metoprolol succinate 100 mg tablet extended release 24 hr 100 mg PO DAILY omeprazole 40 mg capsule,delayed release(DR/EC) 40 mg PO DAILY aspirin [Lynn Low Dose Aspirin] 81 mg tablet,delayed release (DR/EC) 81 mg PO DAILY spironolactone 25 mg tablet 25 mg PO DAILY bumetanide 0.5 mg tablet 1 mg PO DAILY rosuvastatin 10 mg tablet 20 mg PO DAILY Jardiance 10 mg tablet 10 mg PO DAILY isosorbide mononitrate 30 mg tablet extended release 24 hr 30 mg PO DAILY Print Language: Maltese Instructions: Pharyngitis (ED), Oral Candidiasis (ED) Referrals: Physician,Non-Staff, MD [Primary Care Provider] - 1 week
[2024-03-15 21:00] LABS: Internal Control Within Normal Limits; Strep A Antigen Screen Negative
[2024-03-15] MEDS: ACETAMINOPHEN 325 MG TABLET 650 MG PO (21:01)
[2024-03-15 21:07] LABS: Influenza Virus A Antigen Negative; Influenza Virus B Antigen Negative; Internal Control Within Normal Limits; SARS-CoV-2 Ag NEGATIVE (NEGATIVE)
[2024-03-15] MEDS: AMOXICILLIN 500 MG CAPSULE PO (21:35)
[2024-03-15] MEDS: FLUCONAZOLE 150 MG TABLET PO (21:36)
[2024-03-16 09:46] LABS: BOX Test Reference Lab FIRELANDS
--- NOTE | 2024-03-22 12:28 | PC.NURSE ---
Strep culture reviewed by Loida VAUGHN. patient was already placed on nystatin and amoxil. no change in treatment.
== END 2024-03-15 21:40 | disposition home or self-care (01) ==
PROVIDERS: Emergency Provider Emergency Medicine
DX: J02.9 Acute pharyngitis, unspecified (principal); B37.0 Candidal stomatitis; Z79.01 Long term (current) use of anticoagulants; Z90.710 Acquired absence of both cervix and uterus; F17.200 Nicotine dependence, unspecified, uncomplicated; E11.9 Type 2 diabetes mellitus without complications; I10 Essential (primary) hypertension; E78.5 Hyperlipidemia, unspecified; Z79.84 Long term (current) use of oral hypoglycemic drugs
CPT/HCPCS: 36415; 71046; 87070; 87081; 87804; 87811; 87880; 99284

== ENCOUNTER 2024-05-08 04:52 | Emergency (ER) | payer MEDICAID, SELFPAY ==
[2024-05-08 04:56] VITALS: BP 187/89; PULSE 80; TEMP 36.7; O2SAT 98; BMI 39.9
--- OUTSIDE RECORDS SUMMARY | 2024-05-08 04:58 | XMS_ITS | CCD ---
Author Organization [facility]iniSy[facility] Care Team Providers Care Registered Nurse Nursery Name Role Phone PIERSON EDILSON, EDILSON~[phone] PIERSON Attending Unavailable PIERSON EDILSON, EDILSON~[phone] PIERSON Primary Care Unavailable PIERSON EDILSON, EDILSON~[phone] PIERSON Attending Unavailable PIERSON EDILSON, EDILSON~[phone] PIERSON Primary Care Unavailable PIERSON EDILSON, EDILSON~[phone] PIERSON Primary Care Unavailable PIERSON EDILSON, EDILSON~[phone] PIERSON Attending Unavailable MIRELA, ALVA Primary Care [...] Admitting Unavailable MIRELA, ALVA Primary Care Unavailable SABA, DR ISACC Gao Consulting Unavailable LIOR JIANG Consulting Unavailable MIRELA, ALVA Primary Care Unavailable NADERER, DR SHARRI Briggs Attending Unavailable NADERER, DR SHARRI Briggs Admitting Unavailable HELDER, DR LIZANDRO Ojeda Consulting Unavailable NADERER, DR [...] Attending Unavailable MIRELA, ALVA Primary Care Unavailable THAO, MUHAMID M Referring Unavailable THAO, MUHAMID M Primary Care Unavailable SHADY, JAMAR M Referring Unavailable THAO, MUHAMID M Primary Care Unavailable SHADY, JAMAR M Attending Unavailable SHADY, JAMAR M Referring Unavailable THAO, MUHAMID M Primary Care Unavailable SHADY, JAMAR M Referring Unavailable THAO, MUHAMID M Primary Care Unavailable TYRON WAGNER Referring Unavailable THAO, MUHAMID M Primary Care Unavailable TYRON WAGNER Referring Unavailable THAO, MUHAMID M Primary Care Unavailable DEWAYNE Hernadez Primary Care Provide r DO Natalie Garcia Attending Provider [phone] DO Natalie Garcia Attending Provider [phone] DEWAYNE Hernadez Primary Care Provide r DEWAYNE Hernadez Referring Provider MD Fletcher Flores Attending Provider [phone] TRAVIS BOWSER Attending Unavailabl e THAOJOSI M Referring Unavailable KASTOR, CLAUDINE C Primary Care Unavailable Kastor, Claudine Isabell Primary Care Unavailab le Ly, Natalie L Attending Unavailable Ly, Natalie L Admitting Unavailable Marker, Khushbu Frederick Attending Unavailable Marker, Khushbu Frederick Admitting Unavailable Kastor, Claudine Isabell Primary Care Unavailab le Fletcher Flores Attending Unavailab le Fletcher Flores Admitting Unavailab le Ly, Natalie L Admitting Unavailable Kastor, Claudine Isabell Referring Unavailab le Kastor, Claudine Isabell Primary Care Unavailab le Ly, Natalie Gonzalez Attending Unavailable Marker DO, Khushbu Frederick Attending Provider [phone] Lauren CLAROS, Kendrick Reaves Attending Unavailable Lauren CLAROS, Kendrick Reaves Attending Unavailable [place] RECESSING MACHINE OPERATOR-BOOM WORKER, Lesley Roldan Attending U salina Lanza APRN-BOOM WORKER, Lesley Roldan Attending U salina Waterman MD, Murali Kaplan Attending Estee Waterman MD, Murali Kaplan Attending Estee Lanza APRN-BOOM WORKER, Lesley Roldan Attending U salina Waterman MD, Murali Kaplan Attending Estee perry Provider, None Primary Care Unavailable Travis Bowser Attending Unavailabl e Travis Bowser Admitting Unavailabl e Provider, None Primary Care Unavailable Thao Santana Attending Unavailable Thao Santana Admitting Unavailable Provider, None Primary Care Unavailable Romeo Resendez Attending Unavailable Romeo Resendez Admitting Unavailable Provider, None Primary Care Unavailable [place] Attending Unavailable [place], Lesley M Admitting Unavailable Provider, None Primary Care Unavailable [place], Lesley M Attending Unavailable [place], Lesley M Admitting Unavailable [place], Lesley M Attending Unavailable [place], Lesley M Admitting Unavailable Provider, None Primary Care Unavailable Provider, None Primary Care Unavailable [place], Lesley M Attending Unavailable [place], Lesley M Admitting Unavailable Provider, None Primary Care Unavailable MURALI WATERMAN Attending Unavailable MURALI WATERMAN Admitting Unavailable Provider, None Primary Care Unavailable MURALI WATERMAN Attending Unavailable MURALI WATERMAN Admitting Unavailable Provider, None Primary Care Unavailable MURALI WATERMAN Attending Unavailable MURALI WATERMAN Admitting Unavailable Provider, None Primary Care Unavailable Romeo Meneses Attending Unavaila ble Romeo Meneses Admitting Unavaila ble Provider, None Primary Care Unavailable Claudine Hernadez Attending Unavailable Claudine Hernadez Admitting Unavailable Josi Ba MD Primary Care Provider Claudine Jay Primary Care Provider JESSE BECKMAN Referring Unavailable Allergies Allergy Classification Reported Allergen(s) Allergy Type Date of Onset Reaction(s) Facility (20 sources) Codeine; Translations: [CODEINE] Drug Allergy 1 Anaphylaxis [facility] Repository (2 sources) Cephalexin; Translations: [Keflex] Drug Allergy 2 [facility] Repository (20 sources) Cephalexin; Translations: [CEPHALEXIN] Drug Allergy 2 Hallucinations [facility] Repository (1 source) ALLERGIES NOT ON FILE; Translations: [ALLERGIES NOT ON FILE] Propensity to adverse reactions (disorder) [facility] Repository Medications Current Medications Medication Drug Class(es) Dates Sig (Normalized) Sig (Original) [id number] 200 actuat albuterol 0.09 mg/actuat metered dose inhaler (17 sources) beta2-Adrenergic Agonist Start: 05-12-2022 take 2 puff(s) by inhalation every four hours as needed VENTOLIN HFA 90 mcg/actuation inhaler 2 puffs every 4 (four) hours as needed. 05/12/2022 Active apixaban 5 mg oral tablet (20 sources) Factor Xa Inhibitor Start: 11-28-2022 End: 01-06-2024 take 1 tablet by mouth in the morning, then take 1 tablet by mouth at bedtime apixaban (ELIQUIS) 5 mg tablet Take 1 tablet (5 mg total) by mouth in the morning and 1 tablet (5 mg total) before bedtime. 180 tablet 10/10/2023 01/06/2024 Discontinued aspirin 81 mg delayed release oral tablet (20 sources) Platelet Aggregation Inhibitor, Nonsteroidal Anti-inflammatory Drug Start: 09-16-2022 End: 12-05-2023 take 1 tablet by mouth once daily in the morning aspirin 81 mg take 1 tablet by mouth every morning 30 tablet 10 12/05/2023 Active bumetanide 0.5 mg oral tablet (20 sources) Loop Diuretic Start: 01-14-2023 End: 03-09-2023 [...] 03/09/2023 Active empagliflozin 10 mg oral tablet (20 sources) Sodium-Glucose Cotransporter 2 Inhibitor Start: 09-03-2022 End: 04-03-2023 take 1 tablet by mouth in the morning empagliflozin (JARDIANCE) 10 mg tablet tablet Take 1 tablet (10 mg total) by mouth in the morning. 90 tablet 1 04/03/2023 Active famotidine 20 mg oral tablet (17 sources) Histamine-2 Receptor Antagonist Start: 06-14-2022 take 1 tablet by mouth in the morning, then take 1 tablet by mouth at bedtime famotidine (PEPCID) 20 mg tablet Take 1 tablet (20 mg total) by mouth in the morning and 1 tablet (20 mg total) before bedtime. 06/14/2022 Active 24 hr isosorbide mononitrate 30 mg extended release oral tablet (20 sources) Nitrate Vasodilator Start: 01-14-2023 End: 02-03-2024 take 1 tablet by mouth once daily isosorbide mononitrate (IMDUR) 30 mg 24 hr tablet Indications: Cardiomyopathy, unspecified type ([facility]) TAKE 1 TABLET BY MOUTH ONCE DAILY 90 tablet 3 02/03/2024 Active losartan potassium 25 mg oral tablet [...] succinate 100 mg extended release oral tablet (20 sources) beta-Adrenergic Polo Start: 11-06-2023 take 1 tablet by mouth once daily Metoprolol Succinate 100 mg tablet extended release 24 hr Active 100 MG PO Daily November 05, 2023 11:00pm Start: 09-03-2022 End: 04-03-2023 take 1 tablet by mouth every twenty-four hours in the morning metoprolol succinate XL (TOPROL XL) 100 mg 24 hr tablet Take 1 tablet (100 mg total) by mouth in the morning. 90 tablet 1 04/03/2023 Active nystatin 100 unt/mg topical powder (17 sources) Polyene Antifungal Start: 08-28-2022 nystatin (MYCOSTATIN) powder Indications: Candidiasis of skin Apply 1 Application topically in the morning and 1 Application at noon and 1 Application in the evening and 1 Application before bedtime. 15 g 08/28/2022 Active omeprazole 40 mg delayed release oral capsule (20 sources) Proton Pump Inhibitor Start: 01-14-2023 End: 05-07-2023 take 1 capsule by mouth in the morning omeprazole (PriLOSEC) 40 mg capsule TAKE 1 CAPSULE BY MOUTH IN THE MORNING 30 capsule 10 05/07/2023 Active ondansetron 4 mg oral tablet (17 sources) Serotonin-3 Receptor Antagonist Start: 07-30-2022 take 1 tablet by mouth every six hours for nausea ondansetron (ZOFRAN) 4 mg tablet take 1 tablet by mouth every 6 hours if needed for nausea or vomiting 07/30/2022 Active pregabalin 100 mg oral capsule (3 sources) Start: 11-06-2023 take 1 capsule by mouth once daily Pregabalin 100 mg capsule Active 100 MG PO Daily November 05, 2023 11:00pm promethazine hydrochloride 12.5 mg oral tablet (17 sources) Phenothiazine Start: 11-08-2021 take 1 tablet by mouth every six hours as needed for nausea promethazine (PHENERGAN) 12.5 mg tablet Indications: Migraine without status migrainosus, not intractable, unspecified migraine type , Nausea Take 1 tablet (12.5 mg total) by mouth every 6 (six) hours as needed for nausea or vomiting. 30 tablet 11/08/2021 Active rosuvastatin calcium 10 mg oral tablet (20 sources) HMG-CoA Reductase Inhibitor Start: 11-06-2023 take 20 mg by mouth once daily Rosuvastatin Active 20 MG PO Daily November 06, 2023 12:00am Start: 01-14-2023 End: 08-15-2023 rosuvastatin (CRESTOR) 10 mg tablet Indications: Primary hypertension , 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 heart failure ([facility]) , ASCVD (arteriosclerotic cardiovascular disease) , Dyslipidemia TAKE 2 TABLETS BY MOUTH EACH MORNING 60 tablet 08/15/2023 Active sacubitril 24 mg / valsartan 26 mg oral tablet (16 sources) Angiotensin 2 Receptor Polo Start: 09-15-2022 End: 01-06-2024 take 1 tablet by mouth in the morning sacubitriL-valsartan (ENTRESTO) 24-26 mg tablet Take 1 tablet by mouth in the morning and 1 tablet before bedtime. 180 tablet 1 04/03/2023 01/06/2024 Discontinued spironolactone 25 mg oral tablet (20 sources) Aldosterone Antagonist Start: 01-14-2023 End: 01-02-2024 take 1 tablet by mouth in the morning spironolactone (ALDACTONE) 25 mg tablet take 1 tablet by mouth in the morning 30 tablet 01/02/2024 Active Problems Active Problems Problem Classification Problem Date Documented Date Episodic/Chronic Abdominal pain (8 sources) Unspecified abdominal pain; Translations: [Epigastric pain] Onset: 06-14-2022 Episodic Aortic and peripheral arterial embolism or thrombosis (17 sources) Thrombosis of arteries of upper extremity; Translations: [Embolism and thrombosis of arteries of the upper extremities] Onset: 09-12-2022 09-14-2022 Chronic Chronic obstructive pulmonary disease and bronchiectasis (2 sources) Bronchitis, not specified as acute or chronic; Translations: [BRONCHITIS NOT SPEC ACUTE/CHRON] Onset: 12-24-2021 Episodic Congestive heart failure; nonhypertensive (20 sources) Heart failure, unspecified; Translations: [Left ventricular failure, unspecified] Onset: 07-16-2022 08-01-2022 Chronic Coronary atherosclerosis and other heart disease (18 sources) Arteriosclerotic vascular disease; Translations: [Atherosclerotic heart disease of [place] coronary artery without angina pectoris] Onset: 09-12-2022 09-14-2022 Chronic Diabetes mellitus without complication (1 source) Prediabetes; Translations: [PREDIABETES] Onset: 07-16-2022 Episodic Disorders of lipid metabolism (18 sources) Dyslipidemia; Translations: [Hyperlipidemia, unspecified] Onset: 09-12-2022 09-12-2022 Chronic Esophageal disorders (17 sources) Gastroesophageal reflux disease; Translations: [Gastro-esophageal reflux disease without esophagitis] Onset: 06-08-2018 09-14-2022 Chronic Essential hypertension (20 sources) Essential (primary) hypertension; Translations: [Hypertensive disorder] Onset: 06-08-2018 09-14-2022 Chronic Gastritis and duodenitis (1 source) Gastritis, [...] W/HEART FAIL] Onset: 07-16-2022 Chronic Mood disorders (17 sources) Depressive disorder; Translations: [Depression] Onset: 06-08-2018 11-08-2021 Chronic Nausea and vomiting (4 sources) Nausea with vomiting, unspecified; Translations: [NAUSEA WITH VOMITING UNSPECIFIED] Onset: 06-09-2022 Episodic Osteoarthritis (20 sources) Bilateral primary osteoarthritis of knee; Translations: [Unilateral primary osteoarthritis, right hip] Onset: 12-11-2015 09-18-2021 Chronic Other aftercare (1 source) Other detention (current) drug therapy; Translations: [[employer] TECHNOLOGY PROFESSOR CURRENT DRUG THERAPY] Onset: 07-16-2022 Episodic Other and ill-defined heart disease (1 source) Cardiomegaly; Translations: [Cardiomegaly] 03-06-2023 Chronic Other connective tissue disease (1 source) Presence of artificial knee joint, bilateral; Translations: [PRESENCE ARTIFICIAL KNEE JNT BILAT] Onset: 09-20-2021 Chronic Other lower respiratory disease (1 source) Shortness [...] Chronic Other nutritional; endocrine; and metabolic disorders (17 sources) Morbid obesity; Translations: [Morbid (severe) obesity due to excess calories] Onset: 06-08-2018 09-14-2022 Chronic Eva-; endo-; and myocarditis; cardiomyopathy (except that caused by tuberculosis or sexually transmitted disease) (1 source) Cardiomyopathy; Translations: [Cardiomyopathy, unspecified] 02-03-2024 Chronic Peripheral and visceral atherosclerosis (19 sources) Unspecified atherosclerosis of [place] arteries of extremities, other extremity; Translations: [Occlusion of artery] Onset: 09-30-2022 09-30-2022 Chronic Residual codes; unclassified (17 sources) Obstructive sleep apnea syndrome; Translations: [Obstructive [...] Documented Date Episodic/Chronic Fluid and electrolyte disorders (17 sources) Hypokalemia; Translations: [Hypokalemia] Onset: 09-13-2022 09-13-2022 Episodic Lymphadenitis (1 source) Nonspecific lymphadenitis, unspecified; Translations: [NONSPECIFIC LYMPHADENITIS UNS] Onset: 04-04-2022 Episodic Mood disorders (17 sources) Mood disorders Onset: 09-14-2022 09-14-2022 Other connective tissue disease (3 sources) Other specified soft tissue disorders; Translations: [OTHER SPEC SOFT TISSUE DISORDERS] Onset: 04-22-2022 Episodic Other connective tissue disease (17 sources) Pain in right arm; Translations: [Pain in right arm] Onset: 09-12-2022 09-12-2022 Episodic Other ear and sense organ disorders (3 sources) Otalgia, left ear; Translations: [OTALGIA LEFT EAR] Onset: 04-03-2022 Episodic Other lower respiratory disease (6 sources) Dyspnea; Translations: [Shortness of breath] 01-06-2024 Episodic Other nervous system disorders (4 sources) Paresthesia of skin; Translations: [PARESTHESIA OF SKIN] Onset: 01-22-2022 Episodic Other non-traumatic joint disorders (1 source) Pain in left shoulder; Translations: [PAIN IN LEFT SHOULDER] Onset: 01-24-2022 Episodic Other non-traumatic joint disorders (17 sources) Pain in unspecified knee; Translations: [Pain in joint, lower leg] Onset: 06-08-2018 11-08-2021 Episodic Other screening for suspected conditions (not mental disorders or infectious disease) (20 sources) Other specified abnormal findings of blood chemistry; Translations: [Encounter for screening mammogram for malignant neoplasm of breast] Onset: 04-24-2022 09-12-2022 Episodic Pneumonia (except that caused by tuberculosis or sexually transmitted disease) (1 source) Pneumonia, unspecified organism; Translations: [PNEUMONIA UNSPECIFIED ORGANISM] Onset: 12-24-2021 Episodic Residual codes; unclassified (1 source) Edema, unspecified; Translations: [EDEMA UNSPECIFIED] Onset: 04-24-2022 Episodic Respiratory failure; insufficiency; arrest (adult) (17 sources) Hypercapnic respiratory failure; Translations: [Respiratory failure, unspecified with hypercapnia] Onset: 06-09-2018 11-08-2021 Episodic Unclassified (1 source) COUGH, UNSPECIFIED; Translations: [COUGH, UNSPECIFIED] Onset: 05-11-2022 Unclassified (1 source) LOW BACK PAIN, UNSPECIFIED; Translations: [LOW BACK PAIN, UNSPECIFIED] Onset: 09-13-2021 Results Test Name Value Interpretation Reference Range Facility Progress Note - Provideron 0 04-12-2024 Progress Note - Provider [id number] [id number] Summary[facility] 04-06-2024 Coding Summary HTMLBase 64 [id number] WQ+[id number] 1kZ3MXAXsAPdrbAJEKNPn DUoShmxKeFR4rlUVrVJRu IC8+IJ7eAMGpGygsfQOgn 7B3zYU3B41iid9iLStutE J5MNVfIiTcljjyx7lorQe 6IDcuNmluOyBt OYTwkW41AWT3rC81Gs94q IYggEOep5hfhVl9UtKfNW JsZZS9yCphYThfk6PjMFW pL71txCIha6C1 VMNoaLgkpULpIfXttDO7y G4bDJpmdcayg3svpsanUq m4dg73qBAwe5B9rPG2I8Q nkoU6MTHxfTRi WvqiwOXBsC7fyudgv0zlo cioBkCsFVKrDBx2BFg0UF RemAyfCyGnMP07RSN8CIH fcyXlO6EgZRFq yDdxDnM6h4A4Qj4WY9IZV ycpV8MMGJYVIWsdwXD+PC 25qi90G6MeHelgLqd1FRF eOGT0uUT3oU9w HQEvICrcw1J4pAW8M2Nnd oUafc9ki3tmNINkRAvpM8 9aiQMry0X6ZZJxiGL5XWF muMjoPsHjnA97 Oyc+BVExeDiwr5ByVkufj 7nxj3ndlCx5GpqmZOBvqt XieRkgFHA8i5ZpAa4mSHV scMN6xMC9nI6z FsYxSgP0GJlxH895EvSxf DSrBmoxV31oE7SxfCO+PH TlQjg3CRCnxOqyRS3yA4E hZGRpbmctbGVm vMrpJS4lOVSsqwbyMYJdj O9kDSFfU4w7GaFwEzX4WY inH7DhGXRjjkwdTu20aF1 zCpKqZiX4HCva X4UiccQ6XCTsdPFrABtjV QF8S51fz6E3XTUpJOByAP F0bBG4oX8xoKhlchteoSJ mdDsgdmVydGlj XUcuVTinW801SPObwThfR kNvZGluZyBEYXRlOiAgMD EvMjEvMjAyNTwvdGQ+PHR jNTR0fLbuUCJq cZXvDOjlQj5cxVsqdGovC Z9rRDOfkydyXLVfcM4bJY SomRFvtTkkDJ1ePFVvmnl pm392GhEuXMF2 GKZxkKJtN0QwcD6mCoJdY ZCpIPCmD9CaqJQaDMcpQ0 60VBsrVfO6VXErowFuB6F sLWFsaWduOiB0 c9G6Dg5Ig4RgsbakS6Bvq COhMmWeBsmrTCz9D7KhBx wvdHI+FL11LOOeXM63OUs 8EIS4eShrWKjy BTLqP3IjpR7mRxOkWWYvL GRkOyc+PHRhYmxlIHdpZH RoPScxMDAlJyBzdHlsZT0 hCo6sYTFtBFAt zQgduLQrRlFga5rhODKpZ DvwGW3cjDotL6FspOP9GA Gad3n8Gi08V35lI3YdsGN +TYWosTY2eVM5 gN2uYwQtKzQ8GKrmO271D mCkjFIfZcoki6nwp6ptmE k0UnV0JHOziyMnlYlcWOZ 2j7UcLw67Y19x IHdpZHRoPSIxNSUiIHZhb Zvicq7epH6pYp9+PGNvbC J5iDN5rW2rQlQbBrY9FYx xS806QrMwjAMz Gbkxc5adp7uwhYc6KbVcZ VSiofPlgCtcQNH1h9AeFe 89I7JqwLmba1OqFiw3nw4 8jLZir5I7mQT2 D9UoGUSjxkmqyKGyjQqdG J4bBZUxakmiKFRdvU3iLJ VfD1e7FpQwIkI2MXanE1N logA6IYUiwJNj HOIcrBTIhG5osxpoh5jof xknCzQkHHYfMOe9OMu6BV LfkBvnByYfVGK9DxV4PKX 0hSGqsC2xeCgv atizlU8yMdf+SAH3vQZys PBXQC9qIeuscOT+PHRkIH S2wTtuWEriWGDflL1jDNO iP4d9OyYoXgS6 DNveM9AfjlD2IQUmxZGrQ KJarMEEhY7itmqqq5jjte qcVtVdCDWwTCx6VUq1LFC saWduOiBsZWZ0 GkY7LTO5qHLxuF4bhLczk pyumW4yWvk+QmlydGggRG T3ASo0K2ThHht5GHWahOo zZG3cwUKwJGuk Xg3zqTeksQkdYC6vNMKia jcsj655RmVaw9jhBGYfpH EfKTuxJAW9M68ng8E1SAD rFBUyTXP5vNZ4 mG7hpJghfkdznQZhdFxso qLndJkzPLslGVxsZ877IX PkmTsxHyOnAVm7R4BsDlu 3HEHqcQnlNZ8m jVHuTPmaSn7dvBjtbLvgV F5yFWLgjwmeq728WyVju8 bbCTDshKMqGLylRUT9D39 da4I4BPJoOCDn WWE8qJS2aQ9phVvgyaooz GVmdDsgdmVydGljYWwtYW rdJ347VSJqwBrsHhIsnNr 3M8EhJfq8ZVEc dMdvJC9faGPdJAlwOi3fc EyijMmiMN0vITJklxerv9 09IoZfq5ixCCWwiETzRVb eVJB3R21aa5A8 OPZrCYZlPNF6qDE8dJ8qf GlnbjogbGVmdDsgdmVydG exXHgaFArhC979NNAkiTv nPlBhdGllbnQg RIunFGq3U0ThCxihqQB+P H37AUUoHM75bQEvnOCws9 hizTh6MgYmDLFkMKU1jYu hANohh1ThOUIu S51rbERny6J2PJLepNhbn MRqCaHcgVD5cJ5hQGberf xvp1urkuxtOjvhy2gldd1 4hF64K29kCLvn ZHRoPSIzMCUiIHZhbGlnb j6goJ8jIx3+DKJfgIG9jE G2aT3xJYGySiQ0VWcfR53 9InRvcCIvPjxj q4ght3iboQk2WhI3KZJbo xHctEipLRH2b4HsIl54F9 9sIHdpZHRoPSIyMCUiIHZ onScqfm8pjF7n Ii8+KRMeiJS4sZN2fH5iT qMpGyG8LYorE161BoCsxA JtBkmjG56jF0OsgOH+PHR zOml9XSLrxOer KY7wiBZiIBezNv1rPPY4Y aZlJjGpIRhyX8SgDRLmgy hpofothKM4RGMcGGKuwY7 1Xv8wxVdlGCWz zMAMrC9wyyimx4zgxglhX bVqBECrXIz9MEb5JSDccL vsFjQuXPZ9PzG0YAY8kHD ilC2ylIcanvpm dM2xT0NbVUTxgjjeDc68j W6eGdOnDpO4ZSitFbt+SE SAIN0NROTTXYGXTSRtCCP VAK03BN35aIZo g2S0mVE9K3CiDADykrmge frwgSA5LBOgSPYjlM45kS XjNQxpTq9by9Q7e913JWN yRJNvzM29Is8u tYpjTYYfgLBLiX4zjiqvz 3tbtzowFuAdNULgTMz9TB r6EGLahDxfWaDnBJZ1PmB 4VYH9vYXftF3c dLyipuhhwT7bUdw+MDMvM NIdQWu7BCmndAO+PHRkIH H6aJqeIBnaPDXtgT6lUPR gA6h6BfNkChX1 YNszM2UlPXNyyqtrCc67c R4nVfExEgZ2VVpgY7Pwim Y0FFVqzERqSZjmWCX9Z23 qs7O4NFGoULGy OWG3iXX0rS3raHdxusdmw GVmdDsgdmVydGljYWwtYW qiJ624OYWcwWudNlTdZHl wMSAsYT06ZN88 mVGpl6S6vOB1M2YqZRQlg dwwhceltBB1VZYsSWRhvV 81fFGgCAbtGw9no1O8j84 6FPXgWSKakT70 Gr1sjKjbQZZceCGSzL8pa tfqr2ahctxmCtOpJFWsDI t3VNr0XDThsVlfUqXeRRL 6CfM3DVA2yETt sN4cuSpenqyshC7tJlw+R bATKXbAQR72FX25gCCrp6 G3yEY8B6PzPJUymgebwct tuLV8YGZfLNZx hA23kLRgPLglNe5dk2E6d 965GARwPVLazN18Jh1fnX lnJQYqnLEWzS2jdibwk4y vcjogIzAwMDAw OPe5VXd6XLKosSucYrRbG AX6OcV4LLM2kSIhxI5rnZ ssikiymF0zBcy+Z8U3Z9U kPjwvdHI+PC90 GYBqKE95xZCrpIPxa2dje It8EyBlQGJgNEW7pNjiKG iya9LkMJGpR75vlRZsd4G 6IGNvbGxhcHNl VbAnuLK6hC7aIGyhunniq 5odofkzFfhqt6uonr53lN 52V88sRBawPPDeCEEjHMH ySOSubLnmya0b nS6rOh3+ALGftUC0zHE1o R6xToXuVoB4OKazJ796Jd OysHFaArkfh8bhy6sifEu 9IjIwJSIgdmFs qQpmZJZ6u8QiZw69R28pB HdpZHRoPSIyMCUiIHZhbG suws6yhL1fJy3+JO7vz0v ufk07nR37nRH+ SIMjAYZ2lCvvZTyvOZOod X1vDQtzBfT6RXFsSmLtoR 47rGIvPHmeAp2aiUqeuXv dFX5vTYVmciel s850GqAmq6zjSHYwdCRbE VvbXNB3L13qn5S2IOOdGG FnNUU5iZO5bE5faVfgzms gbGVmdDsgdmVy tSqcNDynDAzcJ806ICEtn HrpLhZixMLlS3znciQTZT 1lOjwvdGQ+WHCvOEI9pGg xOEnvNNPmvS5z BGDdK7b8AtZaCgU3FDcgL 0EssvL5TILnjEIzXKDdoN HHpK9zdtkqw6wvxesbNyJ yMKLtOIj6GCf2 WGJqiIibEzZbPUV7BhK3T QP6oRAupK0ybQvvytkifY 9wOyc+RklOOjwvdGQ+PHR jTSM5rVemNZay EUYvjZ4eLVYgH9h1KcMbP cC0NAmnC0BlzkN3EGAxeM GmNMMplBMYvV3htqvmn4p vcjogIzAwMDAw JHx8LXp9BIJkaCypAyQrI SO8WqB7HVJ5mSAesR8wjN qodwlmwX8yApx+TVJOOjw vdGQ+PHRkIHN0 xDrjMVagJRIlzK3vONHeT 0l1LhRiUqJ3NBgzQ1Stni Y3NFOryAViQEYaiUJBvA2 flzmlq2lpjvad HkKoPVHeLFu1DMj1CKIpo LjvAaCxGFV7ZiC8FWE3fW WooN9cgLvnkyannE8tMzn +YTQ8XHO3XZ06 MR61F6BvJqlitKQszTH+P HRhYmxlIHdpZHRoPScxMD RnXsBflGyxVZ3iIi8yLCY yLWNvbGxhcHNl OiB (more content not included)... [facility] Strep A Culture Onlyon 03-15 Strep A Culture Only Strep A Only Cult No Group A Beta Streptococcus Isolated 2 Days ORGANISM: Ana albicans (O:CANALB) Quantity of Growth Moderate Growth PERFORMED BY: [facility] [place] [id number] PATHOLOGIST DETECTIVE WEN DAVIS M.D. Normal [facility] Comment on above: Performed By: #### C LOI #### [facility] [address] [place] [address] [facility] Coding Summaryon 03-08-2024 Coding Summary HTMLBase 64 YqpybckzRJw8cEb+PGhlY WQ+YA4FTBQtY86ehWPnlL 0bV1YKEXfMPzdvEFPFSQe WZoYdruSwSK8yhTWdPZGy IC8+BZ2qTZJlLllftMKou 8U9aBY5U22rvo8rFWtfhW L5DFDaCgQvgegrr8exyVz 6IDcuNmluOyBt CMSwfI43BCJ9fW79Hu59f GSghCEjj8yirRv0QaQsIU NnVSB6yZczORzbf9BqRZG zO93mwNTcv0G2 XIGjnKcspBWuUcPiqPN1n R0lGLidvbulk8yctnxdLi r6zp31eDHoh9T3vPC9H9D ybyH2SNHtiJFa QyoesHJHnT5rcaeun5gow wmaEcMzCXVaHCk5UZc4WR TosDzpVfFgPL80KVF1YIZ ysiLfZ6NeYZCp ySleOnI4u2F8Rp3EC9EBN ruvW1AQXOEPQAqbiHV+PC 61rv83O0KkBiaaPgv2BLV yFWU2aPI3xQ6f IAQbPFzbc2W9lQC1N4Bjq fEgpd3vd6svOMWjMIenB5 8jyJTmp4R2BIKgjCR6JLN frLliFkYvnC96 Oyc+HRZlcNely8BgGpiiw 9xxs3aceNp9DfbiZQMrvf BdjBbeDYP4i8MqEv9kJZR llKR1wEA1dT2k FnHbDmH8MEhrY398MfIml VVgVdxzU85jX6WtwXY+PH AoKcx2DMMrkYgwDF7xV6L hZGRpbmctbGVm gBwkQN4iFPMkttzvBBLtn J5yFPBfV7g2FsBiGjN5VA zdW0MeNIJfylqcDv28tF5 dErMeHcH6DHuv D0AhmjV6ATSzlGTvXDayG ZD1W87av1T4IKKtBVBeBR A9oLB8iJ5npSsqiykejAO mdDsgdmVydGlj MAhoKDgvJ933KIGceHuxI kNvZGluZyBEYXRlOiAgMT IvMjMvMjAyNDwvdGQ+PHR lHFE2kXawGOQz gRJkXFeeBz0jyAmdoEraL A7gMSBwvygvFZHmpQ9dNG WtqSDauGipVF1mVOSvwrc qu903UhEwBLW9 GAIbgTGrD8PrqL3lZoKeJ HAaIBYjP7LlxVTxVAfxK9 07WRmjNeJ6SHIddnUlI0J sLWFsaWduOiB0 s4G7Kr6Qp6PkzantQ0Yrv BPiCfUvAhhzANd6J5MyGy wvdHI+AQ36RAHpQY91QYy 4WIW6xQyhUDej OMZuE8SnmS1uTpQjPFNiJ GRkOyc+PHRhYmxlIHdpZH RoPScxMDAlJyBzdHlsZT0 nJt4hAQZzGOSn qJqyuBNzRmUve9yzFPYuB JbmFW1csTejC3YadKU3FQ Rag1e0Cf59Y00yU6IowLJ +IOUqeLK4yDV7 uV8sYbXgJlX2CScuU190I oDdyNVrZdnmp9sin6abaL t2PxA6AHLcwcRffKawLEU 0l3EvKf81O32p IHdpZHRoPSIxNSUiIHZhb Lctok1yfB1qOz6+PGNvbC W1aKQ0hV5fViGeYzH4VMn bP981UcCluABm Xhecb0quc1gfsZf6BgLwR IHdxpNruHfpVRW6m4HjFq 83S4AavHxvm7PyXnf0es5 6sDTqe4S5uOA1 H2OjGIVpnrvijZPshOghQ V6iGQNyoznvBFRymQ3rKT VuH9r2JvBcXwP9VElaE2T zqnZ1MQXruHTm ACBpoKZUzI5nchgkv3num pxiAkDwOMEpHQv0VQj9RV JcvOvfOdOyUOF4OlE0WMX 7gQHmbN0hqIuz zotqrQ5cSuz+JYE0jYByu SUJVC5dPdvuyWU+PHRkIH M2bAgrYDbdODDxgT4wQZC cV8d0EoSeTkW0 ZSrpQ5QplaJ1JOCmwUJlR SNxxZCBfP8cmbrbw3ljjg fqPwHuEMGuQMk5AJr0ECZ saWduOiBsZWZ0 NcO2PZU6xEVwlE4nbZfei yadcE7rMxv+QmlydGggRG P9CRe1Z6QnVyu3GPIyjIe zPB4erEFqGHvf Ut6svEesmYknNJ9uHRJim clty428WiWik6faYYFacM UuEQtiSYE7S29uf3K9KFB qSWLeSWK8fLF7 aY3mnWvshwnddLZzaZgur [id number] EdoTkbWhJeKNo8K2SvMgk 4FZWrnUtbDK8y xKYtVQqlPu0ihKsxzCfeK N2uMFZtmluph851VeKtc5 feGWUoxKGkLTtfGVD1M67 fp8I8MOQrPKOj JPB3tMQ2gW9koZuqrliez GVmdDsgdmVydGljYWwtYW ivL179INKgvDqhTlTjzJb 0I3TfImw5OOCp sQziIV9peDWwRStyXs4ht IbatWymZH3pYZOjuoprn0 71JsDkg5xwJXPffGUgFHz wIRS2L53tq0X2 JDGdJDZbQWX1sPF0sS8ms GlnbjogbGVmdDsgdmVydG hgIGexJBagZ622WVEcvEw nPlBhdGllbnQg GTldLEj8P2EfIlmusZV+P A23USXoWG54aFKasXFie7 wtxTa3FzCrGFAfFHY6yNk dTCzch8AeHDJp O41oeWPaw2H2DGGoqCqsd MKlEnPedXV6gM1fOLpxzf aov2frccymZbrsd6jmmu8 4pT17K83uBHnp ZHRoPSIzMCUiIHZhbGlnb i7szC1jAk6+OMUnaNO6jL F1oO7bGMUdDhB1LUxiR51 9InRvcCIvPjxj l2hju9jckCz4QxQ7GKTtl dUtwXofLUD2m4TxTf52U2 9sIHdpZHRoPSIyMCUiIHZ hcMyshe0zuB5m Ii8+CDLkeFQ2nNC1pC4pY jMhKwS7JUxyK477QnWvuD EnTnlvN81mF2HtzTO+PHR cTnc7DQPijJgb JI1juNUvCOefVe7fLJX7B jXfCmLmSPsoK2WcLHHcsy zkwgkqgNO5DGVbJHMkzR7 2Uu3lgPhoVOCd yIEThZ4gejkia0zyfyawW iNlGXWfBMk3PTt1DZUjvE azLrBdBAQ2QvM2CUN2cEX onY3ghAgyztdu jI7uI1JjBSGnxhtuTv13n C0xBxMqJvR7IAeqIgy+SE STKA6MMGOQBGQRJCLpPSO UCZ57YI23cFBq v4Y8fSQ2M6IySJCxjeoqc ekgpBD2VJNpDCTlxS40hZ VfCLvhTn4om7E8c073IRM vBBUloK12Wl3k zOzyGNBgoVDHiA7ynxjnx 3xtqnlsXeRlJNArEUx4SB u4XRJobIscDgNrGIT0RtI 5SDM4gPQgsR3g pJouoxxnkR9uBwx+MDMvM QIiSBj1EAfnnJJ+PHRkIH K6mYneEUijJZTezL8vRFD pK4z9GoYkSwC9 LUdtF6FrERYvdugmWi08c X9lXeRmQzN7MFiqG5Hygb O2ZOAilIGeHWtbKPA2F27 ra9V5WOKbATCn NJX4xKJ6qO3ujGsshlfcl GVmdDsgdmVydGljYWwtYW keE917QACwoMsgNkYiCTb hEFZgFE11PC61 oTEpt7V1kIE0J7HiJXFdf wkgxvnrzYV4EZLiVEHssB 95hIOgPKtoDi9yb9G4a90 1QAPiJRDktM06 Sz7ovGkqXTRzqFCJmY1cd uuan3ihqzhzMrYyLXJcMG z1VKn7OELzmQlmFjAhALW 8IsL4FYC2cRZz sM5icWhioqvtqD3uDbb+R fDSTStCOI93YI98fUWjt3 O1oEA3A8XpBKJelkwkhqb wqGV2FNLuRFOt kX63yZWqHDimCn2be2Y7q 631FPNwYVDylG53Ax4ddY rcSVPzsGGCxI5wyptrx6z vcjogIzAwMDAw DGt1IEs8SPFtzRjhSyRoF TO9NlJ1GSH4yVBspE7dhJ pkhqrliZ4yVoa+VDA8TDU 2xkqmtot2M6Dz PjwvdHI+HW60MQClTF00n BTpoGMfn5knfOq6BkJrGB GwTKU5pBhuWPsew2KxQAO eW92snYWoy7K5 QLLoqWjlvNYxKrErsIH3g U6ySDteafahd2uzjendVv pba3snaj21oN05E90rHRl pZHRoPSIzMCUi ZSCgfPhmfg1buQ6rBi1+P DZiqYM7cWO8lN2fPpAyYd L5ZRlsU299EsNjmHAaQmu rb4jie3xvgOb4 MeUoWVUtyqRtvRceQHE7z 6IsEo56D81lMUhxOPAuQP ObCIBcITWrlQkzza6xvO6 wIi8+QH3wm8lr fc52mF44xUR+UBVpLUP2s PrdMVdmEMOecX9aLDnxAe S4WBPzCdYibV98nBGrOJc fRs4xrCzncRvg GP6vXGSdvrorb911LaQjd 5wzTYVoiVEvBVydAQA7O6 9de7Z3CEUqMDPwZZL5hHA 4fS2zuEyvqxnn bGVmdDsgdmVydGljYWwtY WyoZ552CLLenRtlYgKovT DcX7jnpaLFYZ9lWaeyoIP +FUKlBHO3mAsc FLizECQagH4fVLVnF0e6P xGoSxO0SMydE5HmoqF4LF DhrKUmSXUvdARSmR7idke ey0xalpvvGxOg OWUiKMp6DOc3GOSmgAfkB cDzLFO3CfV2RQK4xIMubW 7tbYuyjgpdiH1uWvz+Rkl OOjwvdGQ+PHRk XLJ0gQosSKsxNBWxcF5lQ HDxV9z2ZqNaCwD1HYllK2 DtbvF1XLNjiKNyVSXkyXC VgU6ruzcqg1ky xbelHmRpUZKrESe1VMg1D JWrdRtoKvAwOOL9UkQ1FB B2lUWbiD5anKawcgxjmC2 wOyc+TVJOOjwv dGQ+TFVhHBB8yRkgJNqiV ENfaW6qRHTcU5u4ByKzOk E4CArpO0OaclH2SQJbhCU lIWAupMQGlR3d olvey5ghmrggWlSlZNFrI Xz2ZAw8AIZxjQuyYxUvUP X3FnV8OLJ3jIUbjX5agRf mkgehgC5hPdm+ VPB8DVH9CG15JS81I8HjV jwvdGFibGU+PHRhYmxlIH dpZHRoPScxMDAlJyBzdHl dAJ3mMb1pYDEk LWN (more content not included)... [facility] Coding Summaryon 03-03-2024 Coding Summary HTMLBase 64 ShxhwknaFCl3tPh+PGhlY WQ+BE4VKRFpQ32xvRVbhL 0pG4KEWMiVDwvnURFKRMp ZYpYiyhYsKP8yaYTaHCRl IC8+PQ9zSMToAxvghCFpp 4I5aJV1N90dvc4zUXlmaN P9QGGsHzMzfjufv2dufLg 6IDcuNmluOyBt XVXsuW15YHW5uP16Oo96n YSflNRvf8zahVh9PvPxVN EdSWS9xPizUWusg3HrTXK kA33sqLGix0L5 IKXutDtccPWyDaWzsTA0d E8mSVujcgktv9txgedxCd z0eo18fZRdt6K5mTI6P5Q nrmZ5MMWgaQAt XmlfaDXJoD9uqvmcm7bhi fxiAvXpGZJsRZp1OVh2MD MfrMtwOoUlGK44AUT3OAO iraIhQ0NmDVQf xVmhWjM0e9M7Ar6SM4RIE epiY3CHGJHBUZscmZK+PC 63ef50O4ZnMgijPal2NZC rFKL7tXL2rQ2s TMUmMEovf4O7nGV9V8Ymi aQort1ec6sgYNOaMZayK5 1gsNLnt1U8CWReeGG2GBD mdYnkMyJwyT29 Oyc+YOQxyPmti3JnUbaoo 6brq8gpxUo5EilfEEFljn TwiGzhDOC0y9SzSu5iZNE jtPI0vXQ7mQ0k YpEyGpX3FBqjR984GdLwj ULoUqtmA77lV8LykFU+PH XmMav9UBKpdEakQO0dR1F hZGRpbmctbGVm kHgcFD0nURXonyokSRSmh R0dENMdW4y1MjUdAiZ6KZ moS5YpUONrwpurGh48aK9 dRkLdXcQ8ZGwf L7SpwxL1SAMisNXmUYsyS WY2E12jq3F6EALbCOWxPQ L6bJV9aC9xdLuoqfnjcVR mdDsgdmVydGlj ADflUGoqZ276GXEtaMngC kNvZGluZyBEYXRlOiAgMT IvMTgvMjAyNDwvdGQ+PHR kOLY2zBjdESWf sILvOLodPk4hpEcbbRdzK K1jPLBppqqeJTXqqR4lYN PbzEPupXbcQI5zKXSxcaq zr731WxHjODG7 AUWqeRLzJ8TqdQ2wKeXmC FPnMDRoU9WfiIImXHnrC0 33ARruNfY2BVDdhsRdF7U sLWFsaWduOiB0 w6U0Gl1Tn7ZtjsxgR0Jhc GVbWbZpVrvqTZk7L3VfBx wvdHI+RL93QFTfVZ77PNd 1VOA5hXlvVFqz SCSiJ7UyvT9gRaBcMOXlA GRkOyc+PHRhYmxlIHdpZH RoPScxMDAlJyBzdHlsZT0 yZb0wJKUoAZJc jYqvvZFhXlIzu3veIUQvD MtcKV5rmAlcN9GfnSM5IJ Rlj6k7Yb92V02nL1QhcVS +KKQeuCO5mGQ4 sP3aIlSrWnT2WOsrV491H sNviQRmTsdcs4cop7vlrW g5ErI1XFLntnAkhRhaFJT 3y2DnMe87J12m IHdpZHRoPSIxNSUiIHZhb Wdzok1irW0dTw8+PGNvbC F7cIC2cX1qDmLiZgG9UHb mQ834JgEthKJa Unczu6lte5oklHq3XbXpY OJroeRitEqpZFY0b8QyGk 32U6YyrRmcc0DdNlt8xt8 7mYNct3G0vAK1 X9ChUEXilxkkzBMtkOplT T2sGMTulrymCJDbbQ1hIR LuG5g9QcOsQqQ6PIezO0W wcdO1IWBrhSQg PNMysFHYaV7dzbhak3bpf efvKgSwOPOvUSc5CCf5YV EqdEipKlVaCYJ2NdW0XWZ 3aYHvvA3jaBiw jkijlI1hHfg+AAI2bXUly KLZCZ9oMicoqZH+PHRkIH S2bUdxLNuzKCDixE3oFOD fL6m9OmIjIjX7 GTmsS9HtpgO7SYNrcELrT FCytGQJiG0raktdr6nveh bzSfNhQICkTBs9IFp1LJP saWduOiBsZWZ0 RlY9YWP5iXScwF5ymJqbh erjjC7vEuu+QmlydGggRG I1BSz0O6UyFgp6PXQsnId lJZ3hyPLlKUyn Zs9ddXwybOgzZM6zXHMhq widw504JzXtf5kjQGEpiZ VzIFuvXTB4H61le3R6HEG fJLGaLLR7tQW0 fW6buBvqhshtdCJquCegi eWmdNjiGGumQRejG436GA EmcZujHvUzDJp1F1ZfFdd 0XGZotYvpLT6c zJImOOcyJi7piUotgXbuS X9dFIWobpqfu872JaIpx8 zhYPFobRYsJCstTHE5T14 ii3T9EPMmGQYi XHP2kIK2uH4tsPeznisdj GVmdDsgdmVydGljYWwtYW omC128TVHdcLcsCpUzvUv 5R1UlFrl9IYVv mHvyNC7jsYErNBsfPy1zt NvwnNnuUD9bMXRlnhgyi1 13OvMkn2pcVOJqlOEmTQv jLMI8V83od2N2 VBAeFHQfXDS9cWL6wZ2hf GlnbjogbGVmdDsgdmVydG clDGjsFXwjF000AWJqpLe nPlBhdGllbnQg QWpdEUw7U7RrKwqchKM+P B19ZNZwOB10aFNcpHVcr4 miwCi5GoXtBOSoSCP4jSl mWRmib3DkDRBs D17thCIrs7D9MLHgmAekv TWyTzJviDG2pU2kKDnuhv pnn5ibgecfAmhsl6qvjk4 5fU91B09yMSgd ZHRoPSIzMCUiIHZhbGlnb b3ylY2uPo3+YLRhfMU3bH A8zZ2bPCBrMyK9IJmdO00 9InRvcCIvPjxj p4vwp2lymPo1RoG3GBExx aLmtSzaBFO2f9StRt70T6 9sIHdpZHRoPSIyMCUiIHZ sgAerzd9hmA9g Ii8+HJUzdBC7oCJ5iI4mE bBrHdF4MOijZ111BiElwB AfSlmwN77iI2PrkYR+PHR gIes2IEWggYgn RQ8haWQpTWadZn8nQQY3P bSpYuKhFGcwM0PqMBVysg trxcqjgME4MQIbDYVrxC3 7Ly8gjGwcLWMq eDYGjY9tukagn8jgrwlzQ iEpRJUpHLy8DYb1MBEwxZ hfEsXnNIA4CeR4EEW6tID aiM6zeWhxgitk fN7gJ7PfEFMltqgrVr54j U0iKwBnBuK1MAqfHrf+SE BHLN3ZFJJTAWBGZPYmKCM PAU08MH46wLCw q4O5rNR1I8YvABZdbzvld xfhrTA7NEDnPKVmzN81yS LqEStlBc3kr7M4o403DKF uGBNpbS18Pk0u hXimLXVcoLCAxA6leanyu 7eqzmakPiMtRFBkUTx7SU y4SQNdpHexPsSoTPT9YkR 1FTS2cZJhzM3v yBkhlwgmqQ9kGtr+MDMvM ZFfVSk7DGlzaKS+PHRkIH P6dXuxYFaeIFDzeY3vHCX xT8q6JfSpLnA4 MZkoM6FtBATwycpfGu31i E1gYpMzUlG9BIcuJ8Ekbq Z4QTRubDNaCZzmBGX9T78 fe7P6HGKeUAIe JWM9hXS4qR4lcJmncubwo GVmdDsgdmVydGljYWwtYW ruB368LGLquAewTgVbXVb nDJZrZI59AA91 mWOte8V9eZY8G2NmNNRjz giwpbyqdVH1BEHwKTKkrU 95aHKoGWwcXh9wn3V2k66 0NVFzWCQioF78 Gq8idHxrQFJnwEXPjA9bx rbfb8wqtbupKcMcYYXnTV c7ODa6AYPklWzxZgFePKF 2LsM1CWB2zGXe rA9brVjlipeboO3mKtk+R zATYDgZOR63LO75jZXyc4 K4oJP3O6KfOTDhuzifjuv gfPT2KLVkZFJk jD96sCMyRBraJf5ba6G6z 601ZEOzVUEglV74Yp7irN xbUGIqhIRDuH1idyzvn1k vcjogIzAwMDAw EDk8KXx6TMFqsReyXxFgR MB6EpZ9YFT6gCRvrW3jsL cjprxcsZ6cUgm+LCI8NZF 5bdsvwkg1Q3Rl PjwvdHI+QA61XPPuKY70j IZhhXGlq4pcfJe3QuHsSB QrBDE9uUxxTVorq6EcBYR tG35uiDTfo7B7 ELBrqKuvfZAiGnKdxFB3v B7hZWsivcgyq7xwfvcsUw mwo5feid02jR48Y73zFKz pZHRoPSIzMCUi JFVswUmpfd1voK5uMj1+P WDnxPV7zDD1qI2yUrWnOs K5SAxlN525NgVxwMOvDvm rg3xnv7jmpVk7 RjJnKZMailZicKncLII7w 6ZnNa30N74vJEaoTPPxJK EdUZFxDFSnvVdikd8dgU5 wIi8+WW2nr4hy xs15jF37tUA+IJVdAYR6n MieMTmwGTBudU6yEXgfWr X3VOGiBhBjfW05kQXmJLd bAg7wyUpfbRye YC9oEJMyypbsq085ZgEvk 0syDJFskIOtPUgeFZU7M8 8cq7M4CEJpVESfNBI1gJF 8bP0xuLrxsejg bGVmdDsgdmVydGljYWwtY HatB613HZCaeTyjEfTvcP KbH7ktaqGOKX5fVshaaMC +ROMpOED9jIuo CEwoGLZicM1qTHYwM4e7B dVcGqR1VIqrP5GpijX4LV NleBGeMEPehLYDmG0wvey qg4gkieszKoDv MWYxWQe9CQf6WAIlbKqgY tFjDGI3MsE9MPF1rBCnkU 4pbCttthjqvP4aQxz+Rkl OOjwvdGQ+PHRk YWC7qCgyZJtdWSCgkL3iC NSbP1e6IuBfYdS2QDkyE9 DgmbY4KMVchZCmITLfqBE AtV4dpdfff7os ljwiQpSvVANmQYz4TQb0G GTlsPqxVqPcSGV5HbT9AZ A5xAKxrQ1tiGeuqcxfbQ9 wOyc+TVJOOjwv dGQ+BBUuQDA8tNpmNWnaJ UNqaZ6wVZCmO4w4QdZrVg S8BUurQ1NfmtP1LSSznLG jPWNcwUCAqA4d wwnef0rqhmleYtDaYYGaQ Qk3HHr6ZNFgvCwsWkSwSO F2XeE2KZA9lNUfkQ8shZx zehmvxD7gEhm+ QPP3QFW2OH33CT72P2LxP jwvdGFibGU+PHRhYmxlIH dpZHRoPScxMDAlJyBzdHl rLO2bLc8kRHGz LWN (more content not included)... [facility] Consent [facility] 03-01-2024 Consent Forms [id number]. [id number] [facility] Anesthesia Noteon 02-27-2024 Anesthesia Note Patient: CHINMAY KNIGHT Age: 48 years Sex: FEMALE : 1975 Associated Diagnoses: None Author: Shahab Rivera MD Postoperative Information Anesthetic utilized: Monitored anesthesia care. Health Status Allergies: Allergic Reactions (All) Moderate Keflex- Pruritus. Unknown Codeine- No reactions were documented. Canceled/Inactive Reactions (All) No known allergies Physical Examination Vital Signs (last 24 hrs) Last Charted Temp Temporal L 36 DegC (FEB 26:48) Heart Rate Monitored 70 bpm (FEB 26:) Resp Rate 18 br/min (FEB 26:) SBP H 146 mmHg (FEB 26:) DBP H 92 mmHg (FEB 26:) Weight 98.2 kg (FEB 26:48) Assessment Anesthetic outcome No anesthetic complications noted. Patient discharged prior to post-anesthesia visit. No known anesthesia issues. Uneventful MAC. . [Electronically Signed on: 02/27/2024 10:36 EST] Shahab Rivera MD [Verified on: 02/27/2024 10:36 EST] Shahab Rivera MD [facility] Anesthesia Note Patient: CHINMAY KNIGHT Age: 48 years Sex: FEMALE : 1975 Associated Diagnoses: None Author: Shahab Rivera MD Preoperative Information Anesthesia history: Patient history: No nausea and vomiting with anesthesia, No prior anesthesia problems, No problems with local anesthetics. Review of Systems Constitutional: Negative. Respiratory: No shortness of breath. Cardiovascular: No chest pain. Health Status Allergies: Allergic Reactions (All) Moderate Keflex- Pruritus. Unknown Codeine- No reactions were documented. Canceled/Inactive Reactions (All) No known allergies Current medications: Home Medications (10) Active Aspirin Low Dose 81 mg oral delayed release tablet 81 mg = 1 tab(s), Oral, Daily bumetanide 0.5 mg oral tablet 0.5 mg = 1 tab(s), Oral, BID isosorbide mononitrate 30 mg oral tablet, extended release 30 mg = 1 tab(s), Oral, qAM Jardiance 10 mg oral tablet 10 mg = 1 tab(s), Oral, qAM metFORMIN 500 mg oral tablet 500 mg = 1 tab(s), Oral, BID Metoprolol Succinate ER 100 mg oral tablet, extended release 100 mg = 1 tab(s), Oral, Daily omeprazole 40 mg oral delayed release capsule 40 mg = 1 cap(s), Oral, Daily pregabalin 100 mg oral capsule 100 mg = 1 cap(s), Oral, TID rosuvastatin 10 mg oral tablet 10 mg = 1 tab(s), Oral, Daily spironolactone 25 mg oral tablet 25 mg = 1 tab(s), Oral, Daily Problem list: All Problems No Chronic Problems / Cerner NKP Tobacco user / SNOMED CT 959903951 / Probable Histories Family History: No family history items have been selected or recorded. Procedure history: Facet joint nerve block ([id number]) on 01/30/2024 at 48 Years. Comments: 01/30/2024 10:50 REJI - Renee Dean MA Bilateral L345 Foot ([id number]). Social History Electronic Cigarette/Vaping Assessment Electronic Cigarette Use: Use, within last 90 days. Type: Nicotine infused. Comment: Reports occasional use Alcohol Assessment Use: Current. Comment: Reports occasional social use Tobacco Assessment Current everyday tobacco user Tobacco Use:. 1ppd per day. Substance Abuse Assessment Substance use: Never. . Social & Psychosocial Habits Alcohol 02/05/2024 Alcohol Use: Current Comment: Reports occasional social use - 09/01/2023 15:07 - Charmaine Loja RN Substance Use 02/05/2024 Substance use: Never Tobacco 02/05/2024 Smoking tobacco use: Current everyday tobacco Number used per day: 1ppd Electronic Cigarette/Vaping 02/05/2024 Electronic Cigarette Use: Use, within last 90 days Type: Nicotine infused Comment: Reports occasional use - 09/01/2023 15:08 - Charmaine Loja RN . Physical Examination Vital Signs (last 24 hrs) Last Charted Temp Temporal L 36 DegC (FEB 26:48) Heart Rate Peripheral 77 bpm (FEB 26:) Resp Rate 16 br/min (FEB 26) SBP H 147 mmHg (FEB 26) DBP H 87 mmHg (FEB 26:) Weight 98.2 kg (FEB 26:) General: Alert and oriented, No acute distress. Airway: Mallampati classification: III (soft palate, base of uvula visible). Mouth: Adequate opening, Dentures ( Upper and lower dentures ). Respiratory: Respirations are non-labored. Cardiovascular: Normal rate, Regular rhythm. Neurologic: Alert, Oriented. Review / Management Laboratory Results Plan [place] [employer] (ASA) physical status classification: Class III. Anesthetic Preoperative Plan Anesthesia: Monitored anesthesia care. Anesthetic plan, risks, benefits, and alternatives discussed with the patient and/or family. Patient verbalized understanding. Informed consent was given. Consent was signed by the patient. [Electronically Signed on: 02/27/2024 08:40 EST] Shahab Rivera MD [Verified on: 02/27/2024 08:40 EST] Shahab Rivera MD [facility] Inpatient Patient Summaryon 02-27-2024 Inpatient [place] [address] Patient Discharge Instructions Name: CHINMAY KNIGHT : 1975 Patient Address: [address] [address] Primary Care Provider: Name: Provider, None Phone: After you are discharged if you find you have any questions, please, call [phone] ext [phone] to speak to a nurse. Discharge Diagnosis: Prescription Information: If you have been given a prescription for narcotics, seek immediate medical attention if you have any difficulty breathing or any sudden status changes such as confusion and sleepiness. If you or anyone you know is experiencing suicidal thoughts, mental health, alcohol and/or drug addiction problems; contact the [facility] 07/10 Crisis Hotline -Text 4HHMJ df 618452. If you received any narcotics, sedation, or any other medication that causes drowsiness for the next 24 hours, unless otherwise directed: ? Do not drive a car. ? Do not operate machinery such as power tools, lawn mowers, drills, sewing machines, or stoves ? Avoid alcoholic beverages and drugs for allergies, nerves, or sleep ? Do not make important personal or business decisions or sign any legal documents [facility] would like to thank you for allowing us to assist you with your healthcare needs. The following includes patient education materials and information regarding your injury/illness. CHINMAY KNIGHT has been given the following list of follow-up instructions, prescriptions, and patient education materials: Follow-up Instructions Medications During the course of your visit, your medication list was updated with the most current information. The details of those changes are reflected below: Medications to Continue That Have Not Changed Other Medications aspirin (Aspirin Low Dose 81 mg oral delayed release tablet) 1 tab(s) Oral (given by mouth) every day. bumetanide (bumetanide 0.5 mg oral tablet) 1 tab(s) Oral (given by mouth) 2 times per day. empagliflozin (Jardiance 10 mg oral tablet) 1 tab(s) Oral (given by mouth) once a day (in the morning). isosorbide mononitrate (isosorbide mononitrate 30 mg oral tablet, extended release) 1 tab(s) Oral (given by mouth) once a day (in the morning). metFORMIN (metFORMIN 500 mg oral tablet) 1 tab(s) Oral (given by mouth) 2 times per day. metoprolol (Metoprolol Succinate ER 100 mg oral tablet, extended release) 1 tab(s) Oral (given by mouth) every day. omeprazole (omeprazole 40 mg oral delayed release capsule) 1 cap(s) Oral (given by mouth) every day. pregabalin (pregabalin 100 mg oral capsule) 1 cap(s) Oral (given by mouth) 3 times per day for 30 Days. Refills: 0. rosuvastatin (rosuvastatin 10 mg oral tablet) 1 tab(s) Oral (given by mouth) every day. spironolactone (spironolactone 25 mg oral tablet) 1 tab(s) Oral (given by mouth) every day. It is important to always keep an active list of medications available so that you can share with other providers and manage your medications appropriately. As an additional courtesy, we are also providing you with your final active medications list that you can keep with you. aspirin (Aspirin Low Dose 81 mg oral delayed release tablet) 1 tab(s) Oral (given by mouth) every day. bumetanide (bumetanide 0.5 mg oral tablet) 1 tab(s) Oral (given by mouth) 2 times per day. empagliflozin (Jardiance 10 mg oral tablet) 1 tab(s) Oral (given by mouth) once a day (in the morning). isosorbide mononitrate (isosorbide mononitrate 30 mg oral tablet, extended release) 1 tab(s) Oral (given by mouth) once a day (in the morning). metFORMIN (metFORMIN 500 mg oral tablet) 1 tab(s) Oral (given by mouth) 2 times per day. metoprolol (Metoprolol Succinate ER 100 mg oral tablet, extended release) 1 tab(s) Oral (given by mouth) every day. omeprazole (omeprazole 40 mg oral delayed release capsule) 1 cap(s) Oral (given by mouth) every day. pregabalin (pregabalin 100 mg oral capsule) 1 cap(s) Oral (given by mouth) 3 times per day for 30 Days. Refills: 0., OARRS reviewed 02/05/2024 rosuvastatin (rosuvastatin 10 mg oral tablet) 1 tab(s) Oral (given by mouth) every day. spironolactone (spironolactone 25 mg oral tablet) 1 tab(s) Oral (given by mouth) every day. Take only the medications listed above. Contact your doctor prior to taking any medications not on this list. Diet & Activity Patient Activity Level: Patient Diet: Patient Activity Restrictions: Comment: Patient education materials, if any, will display below Viruses or Bacteria What?s got you sick? Antibiotics only treat bacterial infections. Viral illnesses cannot be treated with antibiotics. When an antibiotic is not prescribed, ask your healthcare professional for tips on how to relieve symptoms and feel better. Usual Cause Illness Viruses Bacteria Antibiotic Needed Cold/Runny Nose NO Bronchitis/Chest Cold (in otherwise (more content not included)... Normal [facility] MAGR Intraoperative Recordon 02-27-2024 MAGR Intraoperative Record MAGR Intra-Op Record Summary Primary Physician: MURALI WATERMAN MD Finalized Date/Time: 02/27/24 09:06:32 Pt. Name: CHINMAY KNIGHT/Sex: 1975 FEMALE Med Rec #: [id number] Physician: MURALI WATERMAN MD Financial #: [id number] Pt. Type: D Room/Bed: / Admit/Disch: 02/27/24 06:37:50 - Institution: Case Times MAGR Entry 1 Patient In Room Time 02/27/24 08:41:00 Out Room Time 02/27/24 09:06:00 Anesthesia Start Time 02/27/24 08:40:00 Stop Time 02/27/24 09:06:00 Surgery Start Time 02/27/24 08:45:00 Stop Time 02/27/24 09:04:00 Last Modified By: Noemy Bermudez RN 02/27/24 09:06:27 Case Attendance MAGR Entry 1 Entry 2 Entry 3 Case Attendee Shahab Rivera MD, Monica MA Kokinda, Diane RN Role Performed Anesthesiologist of Air Chipper Air Chipper Record Time In 02/27/24 08:41:00 02/27/24 08:41:00 02/27/24 08:41:00 Time Out 02/27/24 09:06:00 02/27/24 09:06:00 02/27/24 09:06:00 Procedure Radiofrequency Radiofrequency Radiofrequency Ablation(Bilateral) Ablation(Bilateral) Ablation(Bilateral) Last Modified By: Noemy Bermudez RN, Diane RN Kokinda, Diane RN 02/27/24 09:06:20 02/27/24 09:06:20 02/27/24 09:06:20 Entry 4 Entry 5 Entry 6 Case Attendee Maine García RN, James RT (R) Merlin Lemos RT (R) Role Performed Air Chipper Solid Waste Technician Solid Waste Technician Time In 02/27/24 08:41:00 02/27/24 08:41:00 02/27/24 08:41:00 Time Out 02/27/24 09:06:00 02/27/24 09:06:00 02/27/24 09:06:00 Procedure Radiofrequency Radiofrequency Radiofrequency Ablation(Bilateral) Ablation(Bilateral) Ablation(Bilateral) Last Modified By: Noemy Bermudez RN, Diane RN Kokinda, Diane RN 02/27/24 09:06:20 02/27/24 09:06:20 02/27/24 09:06:20 Entry 7 Entry 8 Case Attendee Rukhsana Bang CST, THOMAS F MD Role Performed Scrub Personnel Surgeon - Primary Time In 02/27/24 08:41:00 02/27/24 08:41:00 Time Out 02/27/24 09:06:00 02/27/24 09:06:00 Procedure Radiofrequency Radiofrequency Ablation(Bilateral) Ablation(Bilateral) Last Modified By: Noemy Bermudez RN, Diane RN 02/27/24 09:06:20 02/27/24 09:06:20 Surgical Procedures MAGR Pre-Care Text: A.20 Verifies operative procedure, surgical site, and laterality Im.150 Develops individualized plan of care Entry 1 Procedure Radiofrequency Ablation Primary Procedure Yes Primary Surgeon MURALI WATERMAN MD Modifiers Bilateral Surgeon Comment BILATERAL LUMBAR Start 02/27/24 08:45:00 RADIOFREQUENCY ABLATION L3, L4, L5 Stop 02/27/24 09:04:00 Anesthesia Type MAC Surgical Service Pain Management Wound Class Clean Technique Details Closure Technique N/A Entire procedure No was performed via laparoscope or robotic assistance Last Modified By: Noemy Bermudez RN 02/27/24 09:06:22 Post-Care Text: O.730 The patient's care is consistent with the individualized perioperative plan of care General Case Data MAGR Pre-Care Text: A.350.1 Classifies surgical wound Entry 1 Case Information OR MAGR OR 02 Case Level None Wound Class Clean Specialty Pain Management ASA Class 3 Diagnosis Preop Diagnosis LUMBAR PAIN Postop Same As Preop Yes Postop Diagnosis LUMBAR PAIN Blunt or No Is the procedure No penetrating injury considered occured prior to Emergent/Urgent? the start of the procedure: Last Modified By: Noemy Bermudez RN 02/27/24 09:06:23 Post-Care Text: O.760 Patient receives consistent and comparable care regardless of the setting Time Out MAGR Entry 1 Procedure(s) Radiofrequency Ablation(Bilateral) Time Out Checklist Verifications Team Introductions Yes Confirmed Identity, Yes Completed Procedure, Incision Site, and Consent(s) Presence of Yes Site Verification, Yes Necessary Site Marking, Site Procedural Marking Equipment, Devices, Alternative, and/or and Implants Site Marking Verified Exception in Accordance with Facility Policy Anesthesia Review Antibiotic Received n/a All Anesthesia Yes Within an Concerns Addressed Appropriate Time Interval Prior to Surgical Incision Surgeon Review Anticipated Blood Yes Expected Case Yes Loss Risk Addressed Duration Addressed Critical and Yes Non-Routine Steps to be Performed Addressed Nurse Review Equipment Yes Fire Risk Yes Checks/Concerns Assessment Addressed Completed and Interventions Performed Diagnostic and Yes Sterilization n/a Radiological Test Concerns Addressed Results Displayed are Appropriate and Labeled Other Concerns n/a Addressed Time Out Shahab Rivera MD, Time Out Time 02/27/24 08:44:00 Participants Guilherme Cornell RT (R), Renee Dean MA, [place], Regina CSFA LOG CHIPPER, MURALI WATERMAN MD, Noemy Bermudez RN, Merlin Lemos RT (R) Last Modified By: Noemy Bermudez RN 02/27/24 08:44:35 Patient Positioning MAGR Pre-Care Text: A.280 Identifies baseline musculoskeletal status Im.40 Positions the patient Im.80 Applies (more content not included)... Normal [facility] MAGR Preoperative Recordon 1 04-29-2023 MAGR Preoperative Record MAGR Pre-Op Record Summary Primary Physician: MURALI WATERMAN MD Finalized Date/Time: 02/27/24 09:17:57 Pt. Name: CHINMAY KNIGHT /Sex: 1975 FEMALE Med Rec #: [id number] Physician: MURALI WATERMAN MD Financial #: [id number] Pt. Type: D Room/Bed: / Admit/Disch: 02/27/24 06:37:50 - Institution: Pre-Op Case Times MAGR Pre-Care Text: Patient will be optimally prepared for surgery. Patient is free from s/s of injury. Provide information to patient/family related to plan of care. Verify patient allergies. Confirm identity and verify consent before the operative or invasive procedure. Entry 1 Patient Arrival Time 02/27/24 06:42:00 Preop Departure 02/27/24 08:25:00 Last Modified By: Marta Sousa RN 02/27/24 09:17:54 Post-Care Text: Patient is prepared mentally and physically and is ready for surgery. The patient remains free from s/s of injury. Patient/family express understanding of plan of care and participate in decisions affecting his or her perioperrative plan of care. Allergies documented appropriately. Patient identifiers and consent correct. General Comments: Pt arrives to psw ambulatory. PT denies cp, sob, cough or flu like symptoms. PT denies pacemaker/defibillato r or sleep apnea. Finalized By: Marta Sousa RN Document Signatures Signed By: Marta Sousa RN 02/27/24 09:17 [facility] POCT Glucose Levelon 024 Glucose [Mass/Vol] 195 mg/dL High [address] [place] [address] Comment on above: Result Comment: OPR_ ID=[email or web address],TGC FLAG = False,Meter:[id number] Pit Slagman:[id number] [address] Performed By: #### 4 [id number] ####[facility] (DEFAULT)[address] [place] [address] Glucose [Mass/Vol] 211 mg/dL High [address] [place] [address] Comment on above: Result Comment: OPR_ ID=IN_LIST,TGC FLAG = False,Meter:[id number] Pit Slagman:[id number] [address] Performed By: #### [id number] ####[facility] (DEFAULT)[address] [place] [id number] Patient Handouton 02-27-2024 Patient Handout [facility] Progress Note - Provideron 1 04-12-2023 Progress Note - Provider [id number]#1. [id number] [facility] Coding Summaryon 02-10-2024 Coding Summary HTMLBase 64 AmofysrjKRx8iJo+PGhlY WQ+ZN6MMFMtU01cpZSewF 8bU0WWMZbERyfgRUOWITv RZkHzgwKhVS9vbQVbTZGk IC8+EY7tGSMhEwyhvLScy 6C2bMK3T02kie1wSPyhtE B4JRLmWnTnmkwvp1ndcVh 6IDcuNmluOyBt OQZkwZ97JQX5kU04To69t BRpxIEdr5ypiTz0XpNdPP PxTRS7eKywSZctk7OrUZY bS73xlGLwn7Z5 UPJupBjtbKEiRcCgqBP6m Y5xSVuzwdafo4ccjtowOo n1ww81hWEbj0O9gHO6D3P ixmR6DSYobXMi WrynqJGQsT1ripjmf6mbk vvuXkHxGXWnRFc0CYe9KL GrbGovRhOsCE01JJK9TFZ tdfZsK6ItRPHg vToiHoU4p3I2Rp5LJ1LHA opnF2JNSZFUIEeyyMM+PC 02jk98B0IxWqiiGmf1UIT eECC4kXY2tQ3u FKSkSXckj1M0xFN9N1Oix qXifp8zk1zoWQRyTUoeS5 1ixMNgj7Q4SWQcmRN4BLR dcWklQpUrvD59 Oyc+AGEqeUagq2DfGybwa 5wdb4drdVy1YuniTCEdqq AnrQdgRSF6k3GzSu7mLNC yaRN2aTY6eI9b FtTfLnS1WCnyB237RdYzp QNrQlsxQ76gR9FcqQR+PH PzErl8JSLcjRhsJM2fM4D hZGRpbmctbGVm xKykQQ6oQFQxdbvfLOUys G3kOHPyE1e3TgXvPnU3BX orS5XxWSOfpisqGi63dZ2 fEqIzKnI4CLcl M7LxvjE7DQAusWChCBicZ OG8H74bc5V4XPBiOPWdFU T1uVT6yL4chWktskudfFF mdDsgdmVydGlj HTjsVJulC923QBIhkLxgF kNvZGluZyBEYXRlOiAgMT EvMjYvMjAyNDwvdGQ+PHR yVHO9xOnkAWEd aEWaIBlsOz1shWsvdRcnK P3fYMYkprzeIQIwlE7tFU NzeCHvyWbxED3tVJZsnvq mq056MnRhSGL5 AVPdmXXgM9KffY0jWcOdW ZJrHNBtC0UiaSCsMGiwS5 85IMkaNmA8ASAiixYzC1V sLWFsaWduOiB0 g3P8Rh1Rp6NrhfejA5Dmo PPnCeHwEpedWUh6Q7OyWs wvdHI+TI15ILToII61POx 1XUP6fAgjFInx KZCyZ0GpsJ6bOzVyAUHfX GRkOyc+PHRhYmxlIHdpZH RoPScxMDAlJyBzdHlsZT0 aDh1iWSYyROAh vDvofGWqAjQym9gcSYGqU ZyoGZ8bzSgeD6VctFL2ME Kre8e6Ex68M97cP1NdzRP +TGEpnHJ4qIT6 iY7lPtUqZbE5TTwuL841A yQcwBQtQomrj5feq8zxhM q6JdR7YMNbexLloYdbQBZ 0z3VtKz34E01n IHdpZHRoPSIxNSUiIHZhb Modnu1iuX9pZj0+PGNvbC Q0sLR3nO0mJfWkWrP8XYc uX163FyKyxHGg Qoczk6sfn5rfgNv4TsZmT OAgbsZdoZqoASH8s3YlJt 48E4RuiRait0KcXqj4ly6 9iYBkn4D7tAW4 E0QsLRWdplmsnGOrzTptE X7xRNVipxmlBNHtaQ8qZR QvP0s8ArGdTnF1SBcwA0W ujgY0DUZtcTIw SYIlrHKSlL8jjbkvr2req pekMoRiCEMjNJl3WEr4CO WsgIjqAtOzPUR4YoC8BMU 5zTWgtY5taHxx gmkrvG4gShx+AIS9uYNqs NTWKQ4nFkysaCS+PHRkIH E6gDjhAKdcYGHxbE6jETX lE2p6ChBpRaP2 QVdkH4TdmmR6ENQfkSYnY CDtvJETzA0uqadjl5sloz bqMdQuBTZkEOe6YDv8BGF saWduOiBsZWZ0 KvS6ZIM9iHAmgG2kuGlhn pxowC5kDsk+QmlydGggRG P8VQm7L4FaNee6FQMdjOt bXN0haOEwZPvj Kw8bxHgyeEqvXY4jGCNrw ddic418FvSuk9keNRJkyO NaPOwkFNW3A27sm2C5RHR aLABtBQK6zPE4 bI5vjWtupevtwWXdaDdzy jHqnUlsBPabIXfgY685QO QcgHnnLzJcAWr0I2RwMgc 3WHCneEeaBM6o hPGrVYgxNu2ydRgwfVxmN Q9qVOVbgjqal869SxBgl4 tuCTWeiQXqHVehHRT1I66 fs1H1SWOrLLQe KHX1xEX4tS1ioTbozkbio GVmdDsgdmVydGljYWwtYW xqN842FKJyaPjqKiKnfYb 2X6JnTsv7VMGn sByqMT3krOPvPKmhLv0ya ShrhOfcBH4cBEZrhwdxb1 62FqIml1yaLZEnbIDeCRx eAGZ1N82cs2L2 TWIiIWYiVOO0qBL8oM6za GlnbjogbGVmdDsgdmVydG szBHazRCeaX819FOCrqNc nPlBhdGllbnQg KKdmOCj8K1WhQgmfhXV+P N43YIHwDQ58wXJqaBYsw9 wirEy4TkDhNPXeVSF6wSv sOHcni4CwBQBq T43unVLuw1Z8GRSvhQlrf CEjMuLpsUA3rP4dENfkvi eyg9gxiiswMwtws7lonu0 9sI85I33jNEkc ZHRoPSIzMCUiIHZhbGlnb h7qtP3eCk5+PXKxcJL0sF Y6mJ7eFPHyNyQ5JPxpM81 9InRvcCIvPjxj b1rsq4cgjOs9ZpD6BUUhd xNdgJzjCNJ4q4XoHx64L8 9sIHdpZHRoPSIyMCUiIHZ ryKuwzz8qcQ1l Ii8+JEGglCD3qXB0jO8gJ tPdKpI3BPqsI647JiYbhD TyRnloF11yG3BmbOW+PHR nRjz1EJUhzDpf VI6ljQJlVIoiCq0pFOQ2Y lTkLjWjKJjgI6HpECGyjy vgvbcpkOJ4DBUoKYVtkA4 2Ap4umPgvHHJq cDKQwW7izatmp6tkegerX bPsETIgCEn2WKw3ZKZjfW glQsUyHLS0KyZ4IRW2kTS mbF6wfZeuynxf vG6nB7TzWVTesaoeCe68x T6lXlEcHkP8JDheXvt+SE IGRW8PRZJBDAEMLMJgVWH TCK52HE37oQTv m5V4eQD7C7OdOGYyhphcf njvqZR5HMUkEZRogO03zD XdWSefIc7jx4K2i004TCA tYSRfeB34Cj3i pWujINQlcVOBqD2eienzm 1chddoxJdZoCPCbUFj7LU u6EEDckFkuBcPjOHP4IsM 5AWV7pGNqpS9x tPuyjtvmbR0oDim+MDMvM UPrTMu8YNpjiQD+PHRkIH S2fMkjTWamXNSoiE2cVOO eO2l8RmGaLmN4 SKguV1HxSOMdnmtkMy80x A9dLzRbRlW7QFqhN6Bkkf O6PRFxkIEhYXikEXJ5W41 pt7O5QAMeKCOv NNA4nAR2hE6srQpkutxsg GVmdDsgdmVydGljYWwtYW geP518XDIujVvqTrDxYLe tXIJcBE80AU28 bXCbp5E6hNH3V9ZpGWGsy gcveugbwDB4XBVfWUGgxK 70nXGxNKllCj2cx3O0w05 4STWuNXGssQ79 Iz4imUiyBZIexVXSlR7zy dqnf9hvbvwjUpKmUWKbOR v8RQx7WOXxbYdyInOnPNL 4PyK9RYG7eIOb wR4gbPhoaddqvE9qTfs+R aJNJGvGLR66EK22rHWcq3 I3kOK7P3TaDWFofxltuvj cbAB3LTDsUMHg cO60rOCuVHsfHl4yp2D8i 340LKBeUNSifR32Ep9lzW xwAXZnzSKHlB7xpumry4a vcjogIzAwMDAw BKm1MUq0WJKqoWruIpCyD HQ0JdL8QFZ7xRSktG7zgP wtxwthaN4pUqg+JYX2YTN 2ukipmfi5Y0Aw PjwvdHI+AD16SGKlDL02o RNuoUKwh0eowOo5RyLgFA RsCXN4vDlaUHcev2DbESD bA14fvAApu0R2 WISmfRwmgBZyJgXftGX0k S4hGLwricvky4fddwqnPi neo3paez85bO33V67yYRk pZHRoPSIzMCUi ZTNahZlcou0cgJ5kZa2+P OLyxAV7yEM3tS8cMoZiNp I1FMbeO952UdSeePEoFav hz3iqe3fbuBj7 MwWvVPFgxwSqoYpxQBJ4d 6FqSq71R30kXScsOHYpKU SbCXBdKXFnzMnrvc6xoP9 wIi8+DN7xj5dx ez18cZ24zWZ+WURuNRM1p BlsUFrkANKcjH0vMAthFs T3SLRrCkLkyW58fWMxJQd xVa8uzDdaoFwx GV6cYHMwezbwt923NePay 8dySYKwsDVtKTueWRT6S3 6kw7P1OPJmQUUrNDY6aIA 0jV4whZulxzzo bGVmdDsgdmVydGljYWwtY TohD774JVSqlSreCvUmnZ WeR2ivwdMVIE0jKpbgyFU +MTKsQZB0wPom BDdxKQCxtU8eKWRyW3k7W fPtWaO2KPvbO4SeuyG3WT ApqBBlQRBafGLKeE8zmnk rm8vecruzCeFx RQNgVUu6KCa2ULDtqJczA vFlDTV7GyF8QAH4rRVtoN 3kqZysofgkxQ8hFva+Rkl OOjwvdGQ+PHRk FAT5qWbuATukLFDnhX7aX AUwG3r1XxSdJeV7BGrvO6 NfbiZ3QUVvlBSfDUWzhSW BjE2dnijzu3vw jdttQeWmYFHxGJa3PLx3B ZEmyRezTsLkJHF0AmM7FL C2rZGftI5inVlsmqaffX3 wOyc+TVJOOjwv dGQ+OESfTZK1hHpvWCjaR ZGgqC0bIJJeB5t1CfRoJl F6XWvtB5NsucP1NGTcfRJ eHALjuWGOjN6c emlpn8dmwqbnRdUnRJOeB Sa7OTu6USTfyAfzMpLsJY Y2HuQ7BEK8aLMdeY3snNl lkezggW8qVpg+ TQB4ZRL7WA06NC15N8SrO jwvdGFibGU+PHRhYmxlIH dpZHRoPScxMDAlJyBzdHl sOQ4wXl4wQVCb LWN (more content not included)... [facility] Coding Summaryon 02-09-2024 Coding Summary HTMLBase 64 ZrlmzzumYCc6rYg+PGhlY WQ+WF9UKTNsD50csMQgyC 4xR6XVXVsIPrweKSZUZIc NCpItwvYsWT1oaIBtYCQw IC8+RW6uPENsWuruhXOqs 6K8jMP9G47jfo5iYKzidC Z0RNYkBjYazzkcq3valIe 6IDcuNmluOyBt YJDksE38EBE3dJ60Hs12n XWztUQnf4gpoQh3RqArEA UwVVB4hZzcCWceh6VbHZU yB61moUGsd6O4 RNLyqDidqJZnLcEqtXL7c K0gWWtaafdwk3vogcodAh s4rx84nFAuq0N3uWQ8L3Y xutW2NOUmjCBi AohrxLBJbG9dmxxlx5lzp wmsIfJwMPQyBIt0TMi7UU QbuYezPmLfKE58EPB0SUF qelFiA6FxWMXs eZhwMnG6e2P4Bz3BE9GMW ygjG2CSTXOCFAprrZP+PC 15sw70U1LlHrgwDot2JPE kLPS6xHB0vP5s DOVsAAwmv1O3dAM0P3Mld jUsmi8kq1vbOCGsEAfhU1 8lfEJgn1X9VIMjyOT8EWT fbPxbJzVeyF12 Oyc+ILRurBydh9IwXqtco 2qrm2gagEx4KkagBQHagn RkwRzpDUP0g7YlAs3vCTP qaHP2eXG8vB8p VqWlQxO7JXrzB455HqMds LJrWovdS00jS9XjoQP+PH QdNsc7CQXtrMrrKG2zN5M hZGRpbmctbGVm xWtgQW0oRLVcvcdbJSEbx U1tGZVwK7m2QnHgSbZ9MB cpH7DsHLXmcutaHp00hQ6 zMhJoHnL5LNxn P7NhujH2OHVqdEEbPJmyQ BB8Z19ht3M3EOCrAMPgAD L1kUS5iW1toIaerrnthVY mdDsgdmVydGlj FDpqJFdlY445TGZnvSadM kNvZGluZyBEYXRlOiAgMT EvMjUvMjAyNDwvdGQ+PHR bNTV5aDnvKSBe uUTeHOnzIu9kqAmwcRfxB V6wEWGkalsxRNKyuF6mDZ JuiCMbiNthRM8dFTZungo aq483AbEpJUG0 YXEevUEfB1PnhS0pShNyJ XVaHLPtU3DkaMRuNXiuY8 61FBseYqU5GDDvwqXmN4Y sLWFsaWduOiB0 j5R6Wq8Xf4JabtehM2Jyf QTjLqWgSacrSTl6N9IbAv wvdHI+TD97RLQvRU04SRp 0ECG1pFpeFGcj KSLsA5EhkY0uGbAxEWYuL GRkOyc+PHRhYmxlIHdpZH RoPScxMDAlJyBzdHlsZT0 dYc4yPZPvWPAn bBfupGCqGsSrn8mnJOOiU ZvxYV2etOhsF2LvqWM9JI Zuq6e9Af98A12lF7CheOR +PONwqCD3aJI1 iO2pGbEdNxY9LSryF332J qExbROrGwggk3ccc4eyaX o4CaJ6UOXnofKniZalKWR 7p0VcGu81E71x IHdpZHRoPSIxNSUiIHZhb Lnmih7wkD6kTd0+PGNvbC M4bCA8nC1zKqLaInV9VHa zK854JxAflQSk Acofp6xax2orhRl5UvDlJ EQuidQffKzlTOS8m3MkRp 02V8VowDgse6ToJwr2me2 5eMMvl1D0tQF8 X6ZeJPZoptmprXPvoXhzI G6dKCFxkrxpVUTzeD1wXV PqY4s5YrToTfO5CJmcM7Y zevG5SOUdcSBh NXMnuIJBbZ9hvwizs5wlf gxqVcGiDPUmUZg9TXh2OW XqoPzdMeUmWXE9YjU6FSV 7aGRkeP7jfDlj njarnL3uIaz+VIB3iZYzt KFRQK0wIwzdvME+PHRkIH E9tVduWOzqXHEuiK8kKAK eX7g7LqMtEpH0 CQpjO1SsjqX9NOBizUBkI VYruCHPqQ8nnqgqy4ofxj bzSnSmZKMcCYk3SYt5DXB saWduOiBsZWZ0 PfW1TVU9tTJmbI6taFfep ckbgN5cDna+QmlydGggRG L2RZc4B4DaRcm8MRVcgIs pRG2tiKFrGPev Bu7zkLjhtDnpUS2qHEJxq well430VbCqp8wsMBQnpW CjRHpcNKD1G03lh7I4XPE qXKHuGFL2wNC2 oC1tcJodbefcaWVtnLzqo sOpxDjeEUqlJRnnE536UY JpsQywXdDlUTq5R4RsArc 0FRNacDuiRO4u lTQiHRacPh6esUoclHwxS P8sVZYjecxqh374AbGok3 gkTBFgoMJeMDjqKUZ2J88 yc4Q7GNRcCWQn SKR9fQL0wH3xlZtblnxpn GVmdDsgdmVydGljYWwtYW lmT243FSAnjAffPiOdkIf 6M1OqRxp5FDGj jEpgJV2liYVcYIceKk1sr TtrzEdzAY6jAIIzwghge7 52RtEpa0ojEGLgxHJmKHm rGZW6J84ao6Z7 FUPyUCYlSZW4fYK1wF7zy GlnbjogbGVmdDsgdmVydG hlADzpNOihZ495QCDoaFo nPlBhdGllbnQg DDbiNCb6A6ZjTohltWD+P Y50AIRvRN40pKPytSQkf0 afcCl3GiWcFJVbGVQ8vTo lCOhph5XsZXDr Q11gnEViy2X6HIDyjYqxm VYeUoOduMS4wL5yYFsoxd wqg1pvuztyYvupp4aswq4 4nA33I21oJXhl ZHRoPSIzMCUiIHZhbGlnb d5ovC9wVo9+YUMudXN2sE O0wV4wTUEgVrD0WHorM90 9InRvcCIvPjxj o9bje1ckvCa3AhF8ORGfa tTorGpnEHC4t9WcEr34C8 9sIHdpZHRoPSIyMCUiIHZ weUmiim5krN6b Ii8+HLXfzRO4bKY4iE2yE sBlEaF0RNogQ335HzWidU WeTlqmJ43tG3AkaXR+PHR xGli3XHGdrLjt WT3ueZLrKRuqZg8nWFR8Q pJsWoYwBVurG8PiGBEgdd wtfblegDD1VPGmDCMxxL6 6Cn4faAguNZGv jXYIoH6dzwned1tbfagsD nGjRMPiIHr3DCk3PBTvlB ccFcTdQCJ3EtW8DGB7rIP isN2tfAakyxss zB1cH4HgWSBjnsocCh69y C8xRcSzZpD4IDhgSmf+SE TUJW3OPRGOEXQWAZHwGVL RBV76GY15kZQy a5S7lIV6F2UhZIZwyyhtg rtrkQJ6OGKyNLAsuE33zY WlLLunKb6ei6Z4n794IOH mVFYpwN16Pi0c lKvmVDAbrHUSnJ6vurrao 5qammiqYsWlKISbCEy3JQ m9MBJfcWueZvVeGBX7XrQ 3YUQ5wTPpjN5c tZjtxatstH3lCvq+MDMvM WFhAKa4YKmolBK+PHRkIH G2eMgjBDraRLImcH8oSNK iU5t1LpIkQbQ2 BAjoW1BnYOAuivdxDm39l P6sZxByBiG9RJydW2Guvd O6VHYibKEzXQkkDCB4C63 tk3L5GZTvFVWs ASE8qVK1bS9qoKwswwtja GVmdDsgdmVydGljYWwtYW swS537YKRbpJvaTiFgOIn bOGHwWV20QS42 pDJld0B5mAG8H8WfUNFcj dniaxkdcDV7MFGiRCWcyW 34kEErBKqyOq7ww6C1n35 8QRYuGIQzpU93 Ci8vpDgiTKYmpDIWaD1fv oxji2qfskghIdLpORAjRJ d2NVk8SZPhvFznEhRoDIL 1BtB1NQA0rABy eV4tfXpkajvtiZ5nXtk+R ySWKWlXNL83TP73vAVwr2 K9eAL4O6KeQKEcvnjsgcg ouEU2FELuCGZl zT37wOIzBUxiTr2ig1I2x 867YZVhDOSnqC79Tk2lfL dzNEEbgTHWgR7syxole1g vcjogIzAwMDAw KZr1HWn5OWEzwDhbWdRlZ XX7AgS9QYF7xLEtwT6dsB swqdvcqR1zRhb+N4R1X2Z kPjwvdHI+PC90 HEDcUH62hIWfgURmx8obc Ru1VlXoLNTnLKJ6sIjsQD kzv8TzCSLgQ39icUUkc8F 6IGNvbGxhcHNl GcTitWB4wI3gKPvekzypj 5hpkzmkKsnxd6dmwu76qO 56O34vJBttKDEjXMUqTOS zECZczKdvkq7n lN7gWn9+XXArkOZ7eGX4x D4cPpBmMeJ1DXcuU262Wt EqeSMqWsghv0pgw6ksbDy 9IjIwJSIgdmFs fRnsUVB2u0IiTi42R63zX HdpZHRoPSIyMCUiIHZhbG yvnc2ahQ7mAp8+IR5eo6n iad75xZ84zZL+ PNTgOEC4yLkgQHvfBGIiu H6vXFjuRpZ9JMLtNcEuvS 24zHRcNEdmXn7wkIjlbGz hTQ4rGZNwafpe q716NeApz7ktKIGeiULwY FqsDGX9M81kc2X7WEAoWV IdPIU4aPV8iI3afOtobgb gbGVmdDsgdmVy pYvnSHjsJYgaV329TIEqr CndWrXmdBYnT1risoSWPA 1lOjwvdGQ+KZCsOJN7pHw mRMhrLLIbfC9m QRXyX5n0HgShJeK4XIgiM 0MzcoI6OWViiWGdGLIajJ UCbT8ickbou2mdvajtDeQ dQYWfNQt8WCg1 UZQcnCfzDxGiQEP6TnU3L LG2rEEphO4yaOgwbazepO 9wOyc+RklOOjwvdGQ+PHR uUAE0zXbmJCih PTKxtW1zROBjS4m4CnImH lS9ZDhxD3RteeE6OLHorC JkGSAfzQTJsK3jwkkzq6g vcjogIzAwMDAw ZBf8MQu2ICTvzDpaGhYdG PG4QyL9WFE6yOXldL9coI nazwtusY4mDlb+TVJOOjw vdGQ+PHRkIHN0 aMhqAPmrZJSkgR7pUSJiD 5s8IdBlOvZ1LVrcI3Kkxu G7JYLyzARvYMDhlIYBtB8 tmzobk8ofpbdw TwAnEUVaWFn7FJd3TQCwu KuoMiYwXNE4TyD3GFP9kO EnhS7wcUepdscycV7qUyr +TRM4AFM3KW11 KZ07Z8IoEhwcmNRybJW+P HRhYmxlIHdpZHRoPScxMD BzZpCytAdcWO3dXr2iAEB yLWNvbGxhcHNl OiB (more content not included)... [facility]ent [facility] 02-02-2024 Consent Forms [id number]#[id number] [facility] Inpatient Patient Summaryon 01-30-2024 Inpatient Patient Summary [facility] [address] [id number] Patient Discharge Instructions Name: CHINMAY KNIGHT : 1975 Patient Address: [address] [id number] Primary Care Provider: Name: Provider, None Phone: After you are discharged if you find you have any questions, please, call [phone] ext [phone] to speak to a nurse. Discharge Diagnosis: Prescription Information: If you have been given a prescription for narcotics, seek immediate medical attention if you have any difficulty breathing or any sudden status changes such as confusion and sleepiness. If you or anyone you know is experiencing suicidal thoughts, mental health, alcohol and/or drug addiction problems; contact the [facility] 07/10 Crisis Hotline -text [id number] qp [phone]. If you received any narcotics, sedation, or any other medication that causes drowsiness for the next 24 hours, unless otherwise directed: ? Do not drive a car. ? Do not operate machinery such as power tools, lawn mowers, drills, sewing machines, or stoves ? Avoid alcoholic beverages and drugs for allergies, nerves, or sleep ? Do not make important personal or business decisions or sign any legal documents [facility] would like to thank you for allowing us to assist you with your healthcare needs. The following includes patient education materials and information regarding your injury/illness. CHINMAY KNIGHT has been given the following list of follow-up instructions, prescriptions, and patient education materials: Follow-up Instructions Medications During the course of your visit, your medication list was updated with the most current information. The details of those changes are reflected below: Medications to Continue That Have Not Changed Other Medications ALPRAZolam (Xanax 0.5 mg oral tablet) take 1-2 tab(s) Oral 1 hour prior to procedure. Refills: 0. aspirin (Aspirin Low Dose 81 mg oral delayed release tablet) 1 tab(s) Oral (given by mouth) every day. bumetanide (bumetanide 0.5 mg oral tablet) 1 tab(s) Oral (given by mouth) 2 times per day. empagliflozin (Jardiance 10 mg oral tablet) 1 tab(s) Oral (given by mouth) once a day (in the morning). fluconazole (Diflucan 150 mg oral tablet) 1 tab(s) Oral (given by mouth) once. Take one tab now and repeat in three days. Refills: 0. isosorbide mononitrate (isosorbide mononitrate 30 mg oral tablet, extended release) 1 tab(s) Oral (given by mouth) once a day (in the morning). metFORMIN (metFORMIN 500 mg oral tablet) 1 tab(s) Oral (given by mouth) 2 times per day. metoprolol (Metoprolol Succinate ER 100 mg oral tablet, extended release) 1 tab(s) Oral (given by mouth) every day. omeprazole (omeprazole 40 mg oral delayed release capsule) 1 cap(s) Oral (given by mouth) every day. pregabalin (Lyrica 100 mg oral capsule) 1 cap(s) Oral (given by mouth) 3 times per day. pregabalin (pregabalin 100 mg oral capsule) 1 cap(s) Oral (given by mouth) 3 times per day for 30 Days. Refills: 0. rosuvastatin (rosuvastatin 10 mg oral tablet) 1 tab(s) Oral (given by mouth) every day. spironolactone (spironolactone 25 mg oral tablet) 1 tab(s) Oral (given by mouth) every day. It is important to always keep an active list of medications available so that you can share with other providers and manage your medications appropriately. As an additional courtesy, we are also providing you with your final active medications list that you can keep with you. ALPRAZolam (Xanax 0.5 mg oral tablet) take 1-2 tab(s) Oral 1 hour prior to procedure. Refills: 0. aspirin (Aspirin Low Dose 81 mg oral delayed release tablet) 1 tab(s) Oral (given by mouth) every day. bumetanide (bumetanide 0.5 mg oral tablet) 1 tab(s) Oral (given by mouth) 2 times per day. empagliflozin (Jardiance 10 mg oral tablet) 1 tab(s) Oral (given by mouth) once a day (in the morning). fluconazole (Diflucan 150 mg oral tablet) 1 tab(s) Oral (given by mouth) once. Take one tab now and repeat in three days. Refills: 0. isosorbide mononitrate (isosorbide mononitrate 30 mg oral tablet, extended release) 1 tab(s) Oral (given by mouth) once a day (in the morning). metFORMIN (metFORMIN 500 mg oral tablet) 1 tab(s) Oral (given by mouth) 2 times per day. metoprolol (Metoprolol Succinate ER 100 mg oral tablet, extended release) 1 tab(s) Oral (given by mouth) every day. omeprazole (omeprazole 40 mg oral delayed release capsule) 1 cap(s) Oral (given by mouth) every day. pregabalin (Lyrica 100 mg oral capsule) 1 cap(s) Oral (given by mouth) 3 times per day. pregabalin (pregabalin 100 mg oral capsule) 1 cap(s) Oral (given by mouth) 3 times per day for 30 Days. Refills: 0., OARRS reviewed 11/27/23 rosuvastatin (rosuvastatin 10 mg oral tablet) 1 tab(s) Oral (given by mouth) every day. spironolactone (spironolactone 25 mg oral tablet) 1 tab(s) Oral (given by mouth) every day. Take onl (more content not included)... [facility] Intraoperative Record [facility]R Intra-Op Record Summary Primary Physician: MURALI WATERMAN MD Finalized Date/Time: 01/30/24 10:23:16 Pt. Name: CHINMAY KNIGHT/Sex: 1975 FEMALE Med Rec #: [id number] Physician: MURALI WATERMAN MD Financial #: [id number] Pt. Type: D Room/Bed: / Admit/Disch: 01/30/24 09:04:47 - Institution: Case Times MAGR Entry 1 Patient In Room Time 01/30/24 10:14:00 Out Room Time 01/30/24 10:23:00 Anesthesia Start Time 01/30/24 10:16:00 Stop Time 01/30/24 10:20:00 Surgery Start Time 01/30/24 10:16:00 Stop Time 01/30/24 10:20:00 Last Modified By: Maine García RN 01/30/24 10:23:12 Case Attendance MAGR Entry 1 Entry 2 Entry 3 Case Attendee Renee Dean MA, Kelly RN Rukhsana Bang CST Role Performed Air Chipper Air Chipper Scrub Personnel Time In 01/30/24 10:14:00 01/30/24 10:14:00 01/30/24 10:14:00 Time Out 01/30/24 10:22:00 01/30/24 10:22:00 01/30/24 10:22:00 Procedure Medial Branch Medial Branch Medial Branch Block(Bilateral) Block(Bilateral) Block(Bilateral) Last Modified By: Maine García RN, Erica RN Baumer, Erica RN 01/30/24 10:20:27 01/30/24 10:20:27 01/30/24 10:20:27 Entry 4 Entry 5 Entry 6 Case Attendee Aaron Dias THOMAS F MD Baumer, Erica RN Role Performed Scrub Personnel Surgeon - Primary Air Chipper Time In 01/30/24 10:14:00 01/30/24 10:14:00 01/30/24 10:14:00 Time Out 01/30/24 10:22:00 01/30/24 10:22:00 01/30/24 10:22:00 Procedure Medial Branch Medial Branch Medial Branch Block(Bilateral) Block(Bilateral) Block(Bilateral) Last Modified By: Maine García RN, Erica RN Baumer, Erica RN 01/30/24 10:20:27 01/30/24 10:20:27 01/30/24 10:20:27 Entry 7 Case Attendee Georgina Rodriguez RT (R) Role Performed Solid Waste Technician Time In 01/30/24 10:14:00 Time Out 01/30/24 10:22:00 Procedure Medial Branch Block(Bilateral) Last Modified By: Maine García RN 01/30/24 10:20:27 Surgical Procedures MAGR Pre-Care Text: A.20 Verifies operative procedure, surgical site, and laterality Im.150 Develops individualized plan of care Entry 1 Procedure Medial Branch Block Primary Procedure Yes Primary Surgeon MURALI WATERMAN MD Modifiers Bilateral Surgeon Comment BILATERAL LUMBAR MEDIAL Start 01/30/24 10:16:00 BRANCH BLOCK L3, L4, L5 Stop 01/30/24 10:20:00 Anesthesia Type Local Surgical Service Pain Management Wound Class Clean Technique Details Closure Technique N/A Entire procedure No was performed via laparoscope or robotic assistance Last Modified By: Maine García RN 01/30/24 10:20:29 Post-Care Text: O.730 The patient's care is consistent with the individualized perioperative plan of care General Case Data MAGR Pre-Care Text: A.350.1 Classifies surgical wound Entry 1 Case Information OR MAGR OR 02 Case Level None Wound Class Clean Specialty Pain Management ASA Class 3 Diagnosis Preop Diagnosis LUMBAR PAIN Postop Same As Preop Yes Postop Diagnosis LUMBAR PAIN Blunt or No Is the procedure No penetrating injury considered occured prior to Emergent/Urgent? the start of the procedure: Last Modified By: Maine García RN 01/30/24 10:14:29 Post-Care Text: O.760 Patient receives consistent and comparable care regardless of the setting Time Out MAGR Entry 1 Procedure(s) Medial Branch Block(Bilateral) Time Out Checklist Verifications Team Introductions Yes Confirmed Identity, Yes Completed Procedure, Incision Site, and Consent(s) Presence of Yes Site Verification, Yes Necessary Site Marking, Site Procedural Marking Equipment, Devices, Alternative, and/or and Implants Site Marking Verified Exception in Accordance with Facility Policy Anesthesia Review Antibiotic Received n/a All Anesthesia Case does not involve Within an Concerns Addressed an anesthesia Appropriate Time professional Interval Prior to Surgical Incision Surgeon Review Anticipated Blood No Expected Case No Loss Risk Addressed Duration Addressed Critical and No Non-Routine Steps to be Performed Addressed Nurse Review Equipment Yes Fire Risk Yes Checks/Concerns Assessment Addressed Completed and Interventions Performed Diagnostic and n/a Sterilization n/a Radiological Test Concerns Addressed Results Displayed are Appropriate and Labeled Other Concerns n/a Addressed Time Out Georgina Rodriguez RT Time Out Time 01/30/24 10:15:00 Participants (R), Rukhsana Bang CST, Renee Dean MA, MURALI WATERMAN MD, Maine García RN, Hyacinth Clark RN Last Modified By: Maine García RN 01/30/24 10:16:24 Patient Positioning MAGR Pre-Care Text: A.280 Identifies baseline musculoskeletal status Im.40 Positions the patient Im.80 Applies safety devices Entry 1 Procedure Medial Branch Body Position Prone Block(Bilateral) Left Arm Position Resting at Side Right Arm Position Resting at Side Left Leg Position Extended Right (more content not included)... [facility] Preoperative Record MAGR Pre-Op Record Summary Primary Physician: MURALI WATERMAN MD Finalized Date/Time: 01/30/24 10:30:46 Pt. Name: CHINMAY KNIGHT /Sex: 1975 FEMALE Med Rec #: [id number] Physician: MURALI WATERMAN MD Financial #: [id number] Pt. Type: D Room/Bed: / Admit/Disch: 01/30/24 09:04:47 - 01/30/24 10:30:00 Institution: Pre-Op Case Times MAGR Pre-Care Text: Patient will be optimally prepared for surgery. Patient is free from s/s of injury. Provide information to patient/family related to plan of care. Verify patient allergies. Confirm identity and verify consent before the operative or invasive procedure. Entry 1 Patient Arrival Time 01/30/24 09:14:00 Preop Departure 01/30/24 10:08:00 Last Modified By: Marta Sousa RN 01/30/24 10:30:44 Post-Care Text: Patient is prepared mentally and physically and is ready for surgery. The patient remains free from s/s of injury. Patient/family express understanding of plan of care and participate in decisions affecting his or her perioperrative plan of care. Allergies documented appropriately. Patient identifiers and consent correct. General Comments: Pt arrives to [facility]. Pt denies SOB,cp,cough and flu like symptoms. Pt also denies pacemaker,defibrillat or. Pt does have sleep apnea. Pt is a diabetic Finalized By: Marta Sousa RN Document Signatures Signed By: Marta Sousa RN 01/30/24 10:30 [facility] POCT Glucose Levelon 024 Glucose [Mass/Vol] 125 mg/dL High 74-118 [facility] Comment on above: Result Comment: OPR_ ID=[email or web address],TGC FLAG = False,Meter:[id number] Pit Slagman:[id number] Ager Jacey Performed By: #### [id number] ####[facility] (DEFAULT)[address] [place] [address] Patient Handouton 01-30-2024 Patient Handout Normal [facility] Coding Summaryon 01-19-2024 Coding Summary HTMLBase 64 NczjcjkwXFy6eNr+PGhlY WQ+NY7LFEMvZ72zjULvzN 1fA4VZBDeFNbjoFBQPFHx DCwWyksMzMC1qiIUjALFa IC8+MN9lFNFqStlbhJBry 5M1iAY1B61cmq6pSYbhtJ Q6SPSsEbUrabtdw9ifqAn 6IDcuNmluOyBt RPYjvS99YPJ1qC54Af90u SCrgAIuu9muxZa0NeCmFA AiAPS9kJufQJcbj9GhRTT sV62wrOSwo6A3 EXRxiAyqyVAcWpWlqZR7l K7dPGqtxwkag0hmzmvkOx z7zh55kZKlv4W2sGP1Z3G uaoO6JHStmBUf NqekfLEVsS6smrufz8htg jecGfUrCWFeEBa9JSk4NO DnnApwMjFjGH14LCK0UWB spqQeS6EnOPFx aNdnAnC4w4R8Zf1HB2DGL lldL8VNQJJIVAjujQR+PC 36gm17U2ElXovnLhi9VTO mALM9fYU2bT3c CRTyPCrap3S8tQO0S1Dyu mDhyb0wn2wlZRNxQNgjJ9 8jwLIfc0E1OAErnMA6TTT ajGhyTrFblJ96 Oyc+GEXaqAoal2ZzCvvov 9gak4oudIh6EfhbAALhdw EyoCktRHB2c2TtPi8zXPX izCC2uGT9lU0e LkMaNsH6AWjkD414VlPst PQjTqdzU16qA6NevIE+PH BdHgp3UVEidThfSX1tQ1U hZGRpbmctbGVm vHmiBN5zUFCiiqhhXOGni T4iCICxP2c6FeQlDyS8XI kkQ3GeNPNvdumzAq99fI3 tEqNmCrA3FDcc Q4LouvW6YMXsaJPzMGnjL LZ3S55nr2Q1FFTzRRPuRS P4mEH4lH7ekRmwtalyoNJ mdDsgdmVydGlj YUfoDOmyW556ICAahHnsE kNvZGluZyBEYXRlOiAgMT EvMDQvMjAyNDwvdGQ+PHR iHRT3tCdgZVHb jXDeIKanJd2nvRkotGjdO U0fCIInfejpNCPisL3mZI PqkQBicRzbPA3qZVPmmcr bg481CfLyOCV8 GMAtaIRaD0PdoB5wIjCqH DQySBBbO1WqmNDoNCnuK5 89JKklSkP9IWTfizYrU7K sLWFsaWduOiB0 o6G0Yn2Cx9VkqvhmM3Tvz XAaSxCaUhoqEOs0A9SdKr wvdHI+DM10DOCmTF32GZc 3BVX5zCyxTJfs HAGdT1SliL9mEpRsSFCrK GRkOyc+PHRhYmxlIHdpZH RoPScxMDAlJyBzdHlsZT0 lDo1xXYRpVJZh hThmmJTbScYkl8rwFZQqK MlnAE2heJtdW3XbeGF0PF Ulj9d1Mv44Z08kL1XsuTB +AYXhwQU5sXH8 tY5iVrPhKmG3HXsgG255M xNeaDDdGezcm9ucs8soaM c1PxW4RIZsucQqbJhkZJY 5m0KnEr65E35h IHdpZHRoPSIxNSUiIHZhb Hxcml0yfW9hLw6+PGNvbC J9qFR1vK9gXyZjDaZ0CMi vP721FyAhtJIo Eytgr1gqb3phmIv3OsYeU DKawgTscZugJET1h6QuJi 61T4XdeVwbj5LkHdm7il2 1dVPux8J9dCJ2 W2KmLUScveszaLRarEezE B1eJDGqekcaDCYqsC4sIQ ObM5p8KpJrLaH2TEfwC1T evkG0VIUxoJMj LQRzeTWQrF9jxzqww5kbk vjlFmJiRCYaFJj4MUl5JX IofXbtPfAtNUF8VnY5KRF 6qYEvfY4eeIch whmsaE2dLld+KCR1bIWkj ASNNT5dXzbpsFL+PHRkIH V0kAssRJtoNNPflU2dFOP xJ1d9EdStRvT3 DQklA8FdrtX0ZJTjtTGwF AQufZRKvW1vowqhn4nles fpCgVrXVIvLGk7BTr6UXH saWduOiBsZWZ0 BtE9IIZ4gAUrgU9jzHnoi mtmpV4vDfx+QmlydGggRG G1SLp2P5EvMsc0WRSjgMg vGU2ugEUcCPqc Mz8rlOggpAegVN3pTGBde lfji743RuEdb1ahELDrkD PaANamVHU8T85ww5D1NQP mWDIzKQX4lAJ3 yG8raWnqotjqgPLnzHrbe sZgyMvsYVrdNNjyA610QP IodNffPqHfGXb5D5DwMil 2KVZkgStzYF4b tEAiGXicIo4pbWvjdYuuI A2ePNCnzjmga913IrIze8 zdCFQlhRXcPDmvTTW5I67 kr7U9YRFlBFYg NBZ0sAT0uW5tkFthoprcs GVmdDsgdmVydGljYWwtYW tfM490EPTxbEmfKpBppAr 7B7KdEqw5NFEt jCskDJ8sdQNhFVczJy6rn RlykPxrYW3oAXAwjiqll5 44SgLxx5nzXJJtjSZxQPk iIOG7C55mg6R0 HRUjIRUzEKN7tDA7yT8js GlnbjogbGVmdDsgdmVydG qgNWibFOnbX066AGIoqXq nPlBhdGllbnQg GWwjJDz9T3AvOtoksED+P V79EXKlAI94tHNmaUHlr7 rbmTz2PxLfFMCpYNC0gWm iZMbil3WlAOAa K36wjXRtz5A7FYLbrHhhf WYmDvPgsIG7wF7sPBaxpj jzw0mcnfkdOawol0qytg8 7eZ34G47rXPmc ZHRoPSIzMCUiIHZhbGlnb s4peD5mVy2+WUWiaEE9yB Q2vH1lRUBnXaU4UKtpJ41 9InRvcCIvPjxj z7uyq8avvBd4QjY7XDJze zXvmElwDDS7b6RjAo64J9 9sIHdpZHRoPSIyMCUiIHZ lxNexyu6rlT8d Ii8+RXVmgXT8tRO6qL9pT pDdNnT2AChtB263TqTldL HoZsraB82iL1MfoVP+PHR nBfp3SOItqNdx UU4tiWUbUQqjEw7hUOT4E pKgClRyBUwiX2LxKFWkqk bxisbdaAT2YFHyPGKtcH7 8Sb0wgTcoSJPd iUKUzO6nvekkc0kmtcesH dFtUKAuDNq8TTz6DUTamD xgBwJcYRD8RmL1YMK0yVJ gmB1kvTpkqcji yW5wZ4SuAGSuswitDn84x C5nPkImEtX4PNbxKge+SE JTYU3CSAPNBDZYSIFpSSH TRD85VD22zYPf u1U5gVQ7E0PkPBRyeziul ilijIW4WZRuSGStiH32iV LtVAtkQt6dd2C2s090YFP pHJZhtM70Qx1u kHceWFPczULQmX4cvleds 3mdurvtIaSxXPKjLAq4YD a8JBYquCanUxKyGNP3CcS 6BHN6gKVtqH5h hCaevjctpT4qGep+MDMvM PPuIUj9ADxweHY+PHRkIH Y7bCxfZQmpDUUfkE6zCOA qJ0a8QcSqWmC9 QAvfL7IoYGTlnqiiBe37d W1tIuSjZzA9IOixX5Bpww X5ZOUrkZNmHXwtPUU8Y78 ko8L5QENwTRHo PHR7lMG0zR5npHiikwbky GVmdDsgdmVydGljYWwtYW ltB430MMZqzAvwTsByFLn vJQQoKP04ZH82 fZAvt9I1qVZ7H4RzHGBtk vqwmzikbSI1YQWlGCNhmC 65oBZyHCnfPo7nz8V5b92 7RDUtAHYvzG82 Qq9mrWuiDSQlmIJQzG4bk nuok0gukgjeOuHgXQIbBD k7RGk3DTMzzZljByAdJIZ 0RjQ3ALF7fVEa zW2cuBatimllxE0tQco+R pACHSkANC73WA46sWHap4 W5iCG8X1JwIQVljojipip zgJL4EALzMVUv sP80wFXwJFtjWp4fs0H6q 663WPAkQGJqnS30Gu8zrF tpFILenHPWuV6jwwxud1a vcjogIzAwMDAw ASm0OQd2VDPrxAciQyMkU HT6NzR5TOX8lTMuwA4ksW wmpzsqdD6mZae+E5T3sEM 0aWVudCBpbiBh IEJlZDwvdGQ+YL10jw07C 6CbMedeJet1ZVWzYYB9vJ X2fP9cVWTkVLnde6X8iRX 5H1SqerLanl0v g0zaFZArFBfwF27upZAir 6I3QGHucBA4XYVbfKhmCt XorZ90Hen+JVQfiWfte8J eKwrdf6feq0ta eSu5PdLnARZlyzEulUsgM OM6x2KdJs21Q52yINzaQE RoPSIzMCUiIHZhbGlnbj0 yoD0mMf6+PGNv sNA6mIQ6dC0eDjZtFhX8V EzvU147JwHwiMLeIcszf8 kqf3eszBl8KkPzUEHgbsF aoNonOJP8y3As Ru67C7TgbIful9MoFlw2f w81aGEut5P0hKL3E7KiUG JfdkxweVNwzTlmGI0tPJT uchnuFSZpkM1r YQQtK6w0RbVgObX7OSbbI 9GikfB0AIAbdOFlLFZjaT EMbA9ehfzja0joqknuFxU gBCEvDZn7HOr2 FSObkSoyGsEsSQM3FvX2S FY1eEIeaR1ueRlewitdwI 9wOyc+CLi5c4twuXKaRR6 ufYE5BS12CM37 tRMbt8J8eZR0V1KvNQTmp eqcnawysPK8LMGhVZNyaT 95Sr5hjJytAg7tFXGwKLK 9JSTtnPVlK6Pt pM0jQgCmRVJmTKZlS8Dqn YHmYTeaI540DUvmZgM5MC WaacSoS9WsEGZhcLauEmF 1u1I4If7GDF57 AO76SK77kASbk7H7tBO9X 6JsWLIkavngywnsuOD2XG YfBWJhiH58Ky1xmMsnHe5 mUBKfHZH9SPBs qNJnH5OdaU4tJlLaMLHhA AYlA9VguQFyFAtrK501DN mfCaY1CNWtwaFxV9ExHMC gqPjuToF9b6J6 Iw7HRz04OJ51MH39yLZhv 0L3gVX5T9KzAZFtkxnnes fsrJK1WMCgKHBapL22Gl2 doLsrTb1iPKHi BYL8HSYfiXBbD2BhcJ1uK ySmHFUmWVKtC7VduMXiOZ wiB697IAyuAxX8LCNmaeB cL6CmPVVqpNlu ScL9e1N8Jd8SAIizdjl3Y 3RkPjwvdHI+ZC47AJSmCV 84aOBxvJCsr6zxnPm7TqR rQJFqLKH9xAns PSd (more content not included)... [facility] 01-08-2024 Provider Orders [id number] [facility]24 Consent Forms [id number]#[facility]. [facility]24 Stress Test [id number]#1 .[facility] 01-05-2024 CV Stress ECG _Patient was brought to the cardiac testing area. Resting blood pressure was 168/98 with a pulse of 72 in sinus rhythm. Baseline cardiogram shows sinus rhythm with nonspecific ST changes. Patient was able exercised 3 minutes and 3 seconds on a standard Ted protocol terminated secondary to fatigue. Maximal heart rate was 116 bpm which is less than 80% of maximum predicted heart rate. There were no ischemic ECG changes. Impression: 1. Indeterminate Ted exercise stress test secondary to inability to achieve 85% of maximum predicted heart rate. 2. No ECG evidence of ischemia at 75% maximum predicted heart rate. 3. Poor exercise tolerance Final Signed (Electronic Signature): Travis Bowser MD 01/05/24 11:24 a Technologist: BRENDAN [facility] Coding Summaryon 12-29-2023 Coding Summary HTMLBase 64 WshkkujtDIx8sOr+PGhlY WQ+RI1BMAQmB03zmCTklB 6oJ9EVXFfQYdfdGLYJFBm DNnDsifMmDM6huLNrLISh IC8+LR1tDYGiRqhioAGdf 3Y2eQY9I95dfq9qFRdznS D2PFPoRmNsthebe0xtjSd 6IDcuNmluOyBt UEBhrZ38ZSQ6yI48Cf67v WQbzYIjb9bcwVr5SdJvYO SiQDI6hNldLBpgp1VbDBW iO35ctUUxj2O0 LKGcoQprsIQrPwPhgLH3e H0eDAhgfhbft7bswdqqEy u3aq86gTKua4T5oIM6N7L ovdE6KJClnMUt AcixzWCMaZ2qxxozk6hyv kfeNuSfORCqZMc1TRk2FM YgtDmoYwIiFY67TXQ4TFW ialGaN0NpJDQi iXoaPhG3j4L5Ki3GJ5LAG gmdN7SAURMPQQqdgDY+PC 80qz93W8NsBliaEmm0CZU xKKV1iOO8xW2i MRIjZWcow0P0eMR5V7Vuy nCnoy2ay7qaDGFuVTijK7 4sxIWgd1C0PNBgiDO2HXP haCwuCvXhnM29 Oyc+EXHxqItiv3ErIcbgc 6lao0aabQm7MxvvJIIoai EseUtsPCR7b9KbFj1nYRO jiTS2pZD3vE8y BfOmHcZ9HYiwZ251BtGcf FAyEutvU94kG8HvaKL+PH ZbVsz2WNGxaLzhXM6tT9O hZGRpbmctbGVm aMvsVM0pRPQrmnnlCEWlh N2bNMFoK9h7QpVxHeC9DQ pcH8QcKBGgrfdqXh48bR7 hGfDpTzX6VUbm S9GimpD2WDGtuMEdVQzrW TL8O81gs9O8UEYyRZCrGC F7uDH6bY0lcYahjsumeIE mdDsgdmVydGlj YFcgJHiyR168CRNtbZgaV kNvZGluZyBEYXRlOiAgMT AvMTQvMjAyNDwvdGQ+PHR eHSQ3kBraUPIv aSUfFYtfVf3itRyzwEgkY Q3bUEXlukilKCXilZ5oJV FhrWPbmJelZN6uFEXmuea mb725DnZrMKD3 IFGjdGAeR7MsvW5iLuAeJ UTcZZOyE7KblQZaZBdxD5 19TOmhSsZ0STNygiPgP4X sLWFsaWduOiB0 h8X3Fw2Zg4MfewhzB8Ewv KMgPbZxLsxjKVe0P5ZxTn wvdHI+EB24MXFcPT26CQp 2ALK7sEmrUQvo TJXbB4RrhJ4wGgVpDNApK GRkOyc+PHRhYmxlIHdpZH RoPScxMDAlJyBzdHlsZT0 nWe4mCFHtIZCt eTzpsRDdYxRam4hvGLInC LqqQN8icOdyA3CncLT4FO Laf2e1Re95T35zU6OvjJH +ZUQzwOK2eQK6 fS9cBtJvHlD0DFiqJ021K yZxoQMgOojbk3hny8xwdX a4WrP2WVEtxjAdbLjrYBS 1q0IzMv16B32l IHdpZHRoPSIxNSUiIHZhb Ruruu6lxN2lNl6+PGNvbC R9tBZ5qZ7wEnMrFmG8GUt eE119XpYdbVPl Nvksz3kyu0utuCm5SmKkD MFwqeJlfDarJWV8f8YeRr 55W7TpwMszl6TqBhm7ix4 9bXYno2O8aGC4 K5FoQMSzivcfmNNlqVkcL R2xNGIhgtdtADAbzM2kQK XxS6x5ImHyOiX4LUpmI6M qfrH1VCRjeOBb CKTsdATPwH8waxpsk4prf exhUhRhEBXlEXu2NRo0KS OyoYiqWgPqOYQ3NuJ1TKM 2dGTgwB9lzTso swskfB7oZmk+MFI1dTUsu IFZZJ9hFwztuLG+PHRkIH X6dZkvTQjdVOAwmZ9mOLG gO3e9SfQuWoN7 VUicN2RsigO9UFJqnLDkQ SSpxXVGlS5ghevsc8xuvh xoMtYcCCXhXDw3GAk8CKH saWduOiBsZWZ0 KsP1VIQ5oLCdaC7ahWuba zheoH4sMyb+QmlydGggRG F6PRk9I4BjYun1HNPgwEl sBN3ugYJaWWig Lb1pcGzyqEacEH3xLFSxm rgsl362FaZam4ohEYTolF OvTImsBYM7R30pz6K9ZAR nYXIwOWZ3pKH6 eP3rkCsbiqhwnLVvkUlmt eYolPydQEizJYnmZ875YM VxnXkgIdEvIPo1J0EdDqm 1MFVjgVweJW5l aWMlOVfhOp8vcJjzsYtrA C4kJXZbydhfo764LyFol5 tvKRVwwQHbWVvsCIE0S94 zz4T1EPXgJEBj CNK0pNF9bA9auIfnowzcw GVmdDsgdmVydGljYWwtYW goB069ZCZpyEjyFdRykBq 5F7WtZll7HIJy gWszND9pvWFxPJhlXi4ut WczgJzjUK0tXQXjsslvi5 90RcGbl9avZUQqqIQnNDi rCET2R18sr3G4 NXElJGWrQEZ4oQV7vR1kl GlnbjogbGVmdDsgdmVydG erQWwtYBrgZ741BITysBr nPlBhdGllbnQg SBxmFEf2X4QaJnibhVU+P A27EJXiYW82tJVviIKsa9 mzkQj3NkQmSZBbYCY9sJl fLJzxg1NsPKRl C69prGQax8M0PZTqyExhi JLvIjQecHV8aB2lDLrglf vob4mifezkRtqxx7ryxf4 9aZ22I46fWDee ZHRoPSIzMCUiIHZhbGlnb s2mpG9xJt4+WXRxtOT0pS I3sO0fHNOwUnZ9OObfJ40 9InRvcCIvPjxj i8wwz8rblDq1UkW6NFZif bEsaFrtUTT3t9IdSo08V7 9sIHdpZHRoPSIyMCUiIHZ hvLammb1msP7c Ii8+ZZEqkEQ5nSM1pA5zC xVjWtQ9EGkiU206CeUxgQ BkGltcU01pY9DydIT+PHR uBqn2FUFvtWjp ND5ihAGfQQwhMj7nTLO1C oEhFgLvFEwfG0MsREZxue zrumjgqCD7XQClGMYxkW3 5Hy0rbNnlARVb jASYeW7okwmsy4hzfetzH rHiINWxIRy3XZa5QPCouR nhQwMyUBE9XuC3MEJ7rZD kfE2bfVrtqlco yV6yG4LdPLVptqxxEg52k X6hBgGdVpR9VEggQjj+SE LTUN3NNHKPCLZABQKaERS DDN89FU21kKPh b3R3uMD2G5CxEIPbjyuwe qmkcYU0IGRuTPZddD69hL SyLTmxFl1ym7T0p600GOL gRXUrmF15Dd9y uHnyRMNraKJGcJ6pidwho 6dwedkeLoMdVHZrXGz9TL a9YGFdfEssJxQuGUM7AwQ 2DSQ2tUIhwK4s sRorcdwffF2sPup+MDMvM FSpUAu5PUyqgKE+PHRkIH W8aCbeSFkpGPDxjN5kJGU dP1z7FbPhPpT0 FNxsP4UbPGWtwsoqCl59v P9jKcObRcK4UUviO8Pxnf A3BVVepEReZQzbLGH0K21 hg8Y9TLHpOWId HII6rYZ9oI8dhYszedoxd GVmdDsgdmVydGljYWwtYW shA496BSHitCnoCeVfRPy lPABuRT05OW02 gKRgw9Y3pFJ1M2NcEZMyz yxbquoqbIV7BTHwPIJkwB 93gGMrWAnwFb0py8M4y42 2DFAiEVXzgQ43 Ws4vxZxlKXRvgZYHuF9le fbmh9zdvaosDfRiRFMeNB s4ETs1YZOxdIicSsNyJTB 3KiS0MUI2xQWa zI6bdPrfdrhvrK6nPcx+R jSHHGoQQZ71SK36yHDsa5 X0uFX2Q7FeAWSqcbjzmlr qqPK1LXDiBJEs rB24zIArUKsuQs5rc1O9f 858EWLhRBKxdK81Gr5peR xvPNOttUTGmA7ridbfr0w vcjogIzAwMDAw EDl1HPg9LHNpiOqrFhTxD SL9LpB6HJL8lCQbpU3rkC grlawcvC2bOyf+PLK2EZY 4ohpygwn7J8Nu PjwvdHI+CQ78BCDiKZ34e DDvqPNgq7zbhUo1DiSeHZ OhGFX8gYvmTIccm6LqHLT dN31hrFKjo5U4 VVSlcVqrfVLyWuGtyOK2z N9cMMekdaikg5lzzyzuJy jbr0rkty65oB46J15lBVt pZHRoPSIzMCUi HRFegJaozb1caP1tJf4+P NQwaMJ6uNC5iH2tWqHnJu A7EUnsB110JkLjbPNmPcc zy4csd7qshTd1 QuQnNEDdynMvdPmtVJR4r 5JfZv41D74tSBnzDEBcSR UzNDTgFAHcrIdwmu4rnU6 wIi8+VG3dm5qa af03cH12uPM+KRBdSIW6p WogERynWUVlxX0jZWpzJe I1AFXuQzFlkA46fOToMBf uCb9pfQarzZrh ZY7tTMPawojsr275DtPrz 7vyCNUpdWArPXkcBSW6S7 4oa4J5CKSqMVEhBKD6zVF 4zQ3wfGnujjyk bGVmdDsgdmVydGljYWwtY YisQ330PXTzgOgiEiWqjP GuL0djveGHCC9xCwhftXM +SYFaBSC0xGda CMasMHItsT1vJPSdL3m7F dSgLqQ8DLudW3RtnvQ1VZ MyoPUdXQEdbYPJoL0obfi rx1iwwnvbPgOx KWSaATa1TFm4XPJjgBjaV cYaHHT9TtZ1BZA3wFFjwC 7yuMwimvvvnU3wMyr+Rkl OOjwvdGQ+PHRk SKW6mDiwEJkoUGZcvE3hV FGiZ7l2PzQcGnT7YTgzU1 ZkljL7GTQgeWHxIMPxjTO YzV0ttybig7gl emuaHmXyCJCdRKr6ZXt6R EVqpJbqErQbKLH7DjB3RF I2uLQupQ1qmCpobyuhyD2 wOyc+TVJOOjwv dGQ+URIgSWQ6bFoxAYduZ ANxuF3dRHJwK1f4KfSyNr X2WCscN6LdwfP7UANveHE nTDAfjZOYyD9i grasx9phbwrcXpOxUPShT Ww5WZa3FAOlcRnfTqKsDO G7UnK8MFL5mAOruG1jzBf kujfzbV3iVnw+ OIJ1PSH5SS06QG17M3LoA jwvdGFibGU+PHRhYmxlIH dpZHRoPScxMDAlJyBzdHl tVI6rYw9kCYJt LWN (more content not included)... [facility] 12-29-2023 Provider Orders [id number]#1 .[id number] [facility] Progress Note - Nurseon 12-15 Progress Note - Nurse Patient left voicemail notifying office of her shoulder pain. Patient reports pain started two days ago without injury. Patient reports bruise on the front of her shoulder with a knot. Reports she was seen by her PCP yesterday and her PCP recommended she call pain management. Called patient back and scheduled follow up appointment. Recommended patient seek treatment in Urgent care or ER if the pain becomes unmanageable. [Electronically Signed on: 12/26/2023 10:51 EDT] Felicia Sauceda RN [Verified on: 12/26/2023 10:51 EDT] Felicia Sauceda RN [facility] Consent Formson 12-15-2023 Consent Forms [id number]#1. 00OTGTIFF [facility] Inpatient Patient Summaryon 12-12-2023 Inpatient [place] [address] Patient Discharge Instructions Name: CHINMAY KNIGHT : 1975 Patient Address: [address] [address] Primary Care Provider: Name: Provider, None Phone: After you are discharged if you find you have any questions, please, call [phone] ext [phone] to speak to a nurse. Discharge Diagnosis: Prescription Information: If you have been given a prescription for narcotics, seek immediate medical attention if you have any difficulty breathing or any sudden status changes such as confusion and sleepiness. If you or anyone you know is experiencing suicidal thoughts, mental health, alcohol and/or drug addiction problems; contact the [facility] 07/10 Crisis Hotline -Text 4HIJC al 660038. If you received any narcotics, sedation, or any other medication that causes drowsiness for the next 24 hours, unless otherwise directed: ? Do not drive a car. ? Do not operate machinery such as power tools, lawn mowers, drills, sewing machines, or stoves ? Avoid alcoholic beverages and drugs for allergies, nerves, or sleep ? Do not make important personal or business decisions or sign any legal documents [facility] would like to thank you for allowing us to assist you with your healthcare needs. The following includes patient education materials and information regarding your injury/illness. CHINMAY KNIGHT has been given the following list of follow-up instructions, prescriptions, and patient education materials: Follow-up Instructions Medications During the course of your visit, your medication list was updated with the most current information. The details of those changes are reflected below: Medications to Continue That Have Not Changed Other Medications apixaban (Eliquis 5 mg oral tablet) 1 tab(s) Oral (given by mouth) 2 times per day. aspirin (Aspirin Low Dose 81 mg oral delayed release tablet) 1 tab(s) Oral (given by mouth) every day. bumetanide (bumetanide 0.5 mg oral tablet) 1 tab(s) Oral (given by mouth) 2 times per day. empagliflozin (Jardiance 10 mg oral tablet) 1 tab(s) Oral (given by mouth) once a day (in the morning). fluconazole (Diflucan 150 mg oral tablet) 1 tab(s) Oral (given by mouth) once. Take one tab now and repeat in three days. Refills: 0. isosorbide mononitrate (isosorbide mononitrate 30 mg oral tablet, extended release) 1 tab(s) Oral (given by mouth) once a day (in the morning). metoprolol (Metoprolol Succinate ER 100 mg oral tablet, extended release) 1 tab(s) Oral (given by mouth) every day. omeprazole (omeprazole 40 mg oral delayed release capsule) 1 cap(s) Oral (given by mouth) every day. pregabalin (Lyrica 100 mg oral capsule) 1 cap(s) Oral (given by mouth) 3 times per day. pregabalin (pregabalin 100 mg oral capsule) 1 cap(s) Oral (given by mouth) 3 times per day for 30 Days. Refills: 0. rosuvastatin (rosuvastatin 10 mg oral tablet) 1 tab(s) Oral (given by mouth) every day. spironolactone (spironolactone 25 mg oral tablet) 1 tab(s) Oral (given by mouth) every day. It is important to always keep an active list of medications available so that you can share with other providers and manage your medications appropriately. As an additional courtesy, we are also providing you with your final active medications list that you can keep with you. apixaban (Eliquis 5 mg oral tablet) 1 tab(s) Oral (given by mouth) 2 times per day. aspirin (Aspirin Low Dose 81 mg oral delayed release tablet) 1 tab(s) Oral (given by mouth) every day. bumetanide (bumetanide 0.5 mg oral tablet) 1 tab(s) Oral (given by mouth) 2 times per day. empagliflozin (Jardiance 10 mg oral tablet) 1 tab(s) Oral (given by mouth) once a day (in the morning). fluconazole (Diflucan 150 mg oral tablet) 1 tab(s) Oral (given by mouth) once. Take one tab now and repeat in three days. Refills: 0. isosorbide mononitrate (isosorbide mononitrate 30 mg oral tablet, extended release) 1 tab(s) Oral (given by mouth) once a day (in the morning). metoprolol (Metoprolol Succinate ER 100 mg oral tablet, extended release) 1 tab(s) Oral (given by mouth) every day. omeprazole (omeprazole 40 mg oral delayed release capsule) 1 cap(s) Oral (given by mouth) every day. pregabalin (Lyrica 100 mg oral capsule) 1 cap(s) Oral (given by mouth) 3 times per day. pregabalin (pregabalin 100 mg oral capsule) 1 cap(s) Oral (given by mouth) 3 times per day for 30 Days. Refills: 0., OARRS reviewed 11/27/23 rosuvastatin (rosuvastatin 10 mg oral tablet) 1 tab(s) Oral (given by mouth) every day. spironolactone (spironolactone 25 mg oral tablet) 1 tab(s) Oral (given by mouth) every day. Take only the medications listed above. Contact your doctor prior to taking any medications not on this list. Diet & Activity Patient Activity Level: Patient Diet: Patient Activity Restrictions: Comment: Dallin (more content not included)... [facility]R Intraoperative Recordon 12-12-2023 MAGR Intraoperative Record MAGR Intra-Op Record Summary Primary Physician: MURALI WATERMAN MD Finalized Date/Time: 12/12/23 12:39:40 Pt. Name: CHINMAY KNIGHT /Sex: 1975 FEMALE Med Rec #: [id number] Physician: MURALI WATERMAN MD Financial #: [id number] Pt. Type: D Room/Bed: / Admit/Disch: 12/12/23 11:37:50 - Institution: Case Times MAGR Entry 1 Patient In Room Time 12/12/23 12:31:00 Out Room Time 12/12/23 12:39:00 Anesthesia Start Time 12/12/23 12:34:00 Stop Time 12/12/23 12:38:00 Surgery Start Time 12/12/23 12:34:00 Stop Time 12/12/23 12:38:00 Last Modified By: Crissy Arnold RN 12/12/23 12:39:20 Case Attendance MAGR Entry 1 Entry 2 Entry 3 Case Attendee Renee Dean MA, Kelly RN Heintschel, Sara L RT (R) Role Performed Air Chipper Air Chipper Solid Waste Technician Time In 12/12/23 12:31:00 12/12/23 12:31:00 12/12/23 12:31:00 Time Out 12/12/23 12:39:00 12/12/23 12:39:00 12/12/23 12:39:00 Procedure Medial Branch Medial Branch Medial Branch Block(Bilateral) Block(Bilateral) Block(Bilateral) Last Modified By: Catalina RN, Crissy Enriquezp RN, Crissy Zoep RN, Crissy 12/12/23 12:39:37 12/12/23 12:39:37 12/12/23 12:39:37 Entry 4 Entry 5 Entry 6 Case Attendee Georgina Rodriguez RT (R) Aaron Dias THOMAS F MD Role Performed Solid Waste Technician Scrub Personnel Surgeon - Primary Time In 12/12/23 12:31:00 12/12/23 12:31:00 12/12/23 12:31:00 Time Out 12/12/23 12:39:00 12/12/23 12:39:00 12/12/23 12:39:00 Procedure Medial Branch Medial Branch Medial Branch Block(Bilateral) Block(Bilateral) Block(Bilateral) Last Modified By: Catalina RN, Crissy Arnold RN, Crissy Arnold RN, Crissy 12/12/23 12:39:37 12/12/23 12:39:37 12/12/23 12:39:37 Entry 7 Entry 8 Entry 9 Case Attendee Noemy Bermudez RN RN, Agatha Diaz RT (R) M CT Role Performed Air Chipper Air Chipper Solid Waste Technician Time In 12/12/23 12:31:00 12/12/23 12:31:00 12/12/23 12:31:00 Time Out 12/12/23 12:39:00 12/12/23 12:39:00 12/12/23 12:39:00 Procedure Medial Branch Medial Branch Medial Branch Block(Bilateral) Block(Bilateral) Block(Bilateral) Last Modified By: Catalina RN, Crissy Arnold RN, Crissy Arnold RN, Crissy 12/12/23 12:39:37 12/12/23 12:39:37 12/12/23 12:39:37 Surgical Procedures MAGR Pre-Care Text: A.20 Verifies operative procedure, surgical site, and laterality Im.150 Develops individualized plan of care Entry 1 Procedure Medial Branch Block Primary Procedure Yes Primary Surgeon MURALI WATERMAN MD Modifiers Bilateral Surgeon Comment BILATERAL LUMBAR MEDIAL Start 12/12/23 12:34:00 BRANCH BLOCK L3, L4, L5 Stop 12/12/23 12:38:00 Anesthesia Type Local Surgical Service Pain Management Wound Class Clean Technique Details Closure Technique N/A Entire procedure No was performed via laparoscope or robotic assistance Last Modified By: Crissy Arnold RN 12/12/23 12:39:30 Post-Care Text: O.730 The patient's care is consistent with the individualized perioperative plan of care General Case Data MAGR Pre-Care Text: A.350.1 Classifies surgical wound Entry 1 Case Information OR MAGR OR 02 Case Level None Wound Class Clean Specialty Pain Management ASA Class N/A Diagnosis Preop Diagnosis LUMBAR PAIN Postop Same As Preop Yes Postop Diagnosis LUMBAR PAIN Blunt or No Is the procedure No penetrating injury considered occured prior to Emergent/Urgent? the start of the procedure: Last Modified By: Crissy Arnold RN 12/12/23 12:35:06 Post-Care Text: O.760 Patient receives consistent and comparable care regardless of the setting Time Out MAGR Entry 1 Procedure(s) Medial Branch Block(Bilateral) Time Out Checklist Verifications Team Introductions Yes Confirmed Identity, Yes Completed Procedure, Incision Site, and Consent(s) Presence of Yes Site Verification, Yes Necessary Site Marking, Site Procedural Marking Equipment, Devices, Alternative, and/or and Implants Site Marking Verified Exception in Accordance with Facility Policy Anesthesia Review Antibiotic Received n/a All Anesthesia Case does not involve Within an Concerns Addressed an anesthesia Appropriate Time professional Interval Prior to Surgical Incision Surgeon Review Anticipated Blood No Expected Case No Loss Risk Addressed Duration Addressed Critical and No Non-Routine Steps to be Performed Addressed Nurse Review Equipment Yes Fire Risk Yes Checks/Concerns Assessment Addressed Completed and Interventions Performed Diagnostic and n/a Sterilization n/a Radiological Test Concerns Addressed Results Displayed are Appropriate and Labeled Other Concerns n/a Addressed Time Out Barb Ruiz RT Time Out Time 12/12/23 12:33:00 Participants (R), Aaron Dias, Renee Dean MA, MURALI WATERMAN MD, Hyacinth Clark RN, Catalina MATA, Mayur Woodward Sarah E RT (R) M CT Last Modified By: Crissy Arnold RN 12/12/23 12:33 (more content not included)... [facility] MAGR Preoperative Recordon 0 12-12-2023 MAGR Preoperative Record MAGR Pre-Op Record Summary Primary Physician: MURALI WATERMAN MD Finalized Date/Time: 12/12/23 12:51:12 Pt. Name: CHINMAY KNIGHT /Sex: 1975 FEMALE Med Rec #: [id number] Physician: MURALI WATERMAN MD Financial #: [id number] Pt. Type: D Room/Bed: / Admit/Disch: 12/12/23 11:37:50 - Institution: Pre-Op Case Times MAGR Pre-Care Text: Patient will be optimally prepared for surgery. Patient is free from s/s of injury. Provide information to patient/family related to plan of care. Verify patient allergies. Confirm identity and verify consent before the operative or invasive procedure. Entry 1 Patient Arrival Time 12/12/23 11:47:00 Preop Departure 12/12/23 12:23:00 Last Modified By: Megan Hamlin RN 12/12/23 12:51:10 Post-Care Text: Patient is prepared mentally and physically and is ready for surgery. The patient remains free from s/s of injury. Patient/family express understanding of plan of care and participate in decisions affecting his or her perioperrative plan of care. Allergies documented appropriately. Patient identifiers and consent correct. General Comments: Pt arrives to [facility]. Pt denies SOB,cp ,cough and flu like symptoms. pr also denies pacemaker,defibrillat or. Pt does have sleep apneabut does not use machine. Pt is a diabetic Finalized By: Megan Hamlin RN Document Signatures Signed By: Megan Hamlin RN 12/12/23 12:51 Normal [facility] POCT Glucose Levelon 024 Glucose [Mass/Vol] 137 mg/dL High 74-118 [facility] Comment on above: Result Comment: OPR_ ID=[email or web address],TGC FLAG = False,Meter:[id number] Pit Slagman:[id number] B[address] Mari Performed By: #### [id number] ####[facility] (DEFAULT)[address] [place] [address] Patient Handouton 12-12-2023 Patient Handout Normal [facility] Capillary blood glucose melissa urement by glucometer (mass/volume)Ordered By: Natalie Garcia on 12-09-2023 Glucose [Mass/Vol] 137 mg/dL Normal [facility] Comment on above: Random Glucose Refer ence Range is dependent on time and content of last meal. Glucose of more than 200 mg/dL in a nonstressed, ambulatory subject supports the diagnosis of Diabetes Mellitus. Result Comment: Paia Glucose Reference Range is dependent on time and content of last meal. Glucose of more than 200 mg/dL in a nonstressed, ambulatory subject supports the diagnosis of Diabetes Mellitus. Performed By: #### G LULS #### Point of Care testing , Glucose Poct Glucometerson 0 12-09-2023 Commemt1 Glu2: Cleaned Meter Normal [facility] Comment on above: Result Comment: PERF ORMED BY: [facility] [address] [place] [address] PATHOLOGIST DETECTIVE CASSIDY LEONARDO M.D. Performed By: #### G LULS #### Point of Care testing , [place] 12-09-2023 L Specimen: [id number] Received: 12/09/23 Status: LILIANA Olson Num: [id number] Spec Type: Surgical Subm Dr: Natalie Garcia DO Tissues: A Colon Biopsy (SIGMOID POLYPS) Procedures: HE/2, Gross/Micro L4 Age/ Patient Sex Location Account Attending Physician Chinmay Knight 48/F [id number] Natalie Garcia DO SPEC NUM: [id number] RECD: 12/09/23 STATUS: LILIANA OLSON NUM: [id number] ANGUS: 12/09/[address]: Natalie Garcia DO ENTERED: 12/09/[address] [facility] [address]: SPEC TYPE: Surgical DEPT: S ENTERED BY: [id number] RECV BY: [id number] ORDERED: HE/2, Gross/Micro L4 ORDERED: HE/2, Gross/Micro [...] Description Microscopic examination is performed. CPT Codes 73374 -------- -------- Specimen: [id number] Received: 12/09/23 Status: LILIANA Olson Num: [id number] Spec Type: Surgical Subm Dr: Natalie Garcia DO Tissues: A Colon Biopsy (SIGMOID POLYPS) Procedures: Chris SORIA/Charles L4 -------- Patient: Chinmay Knight [id number] (Continued) -------- Signed (signature on file) Jeremy Spencer MD 12/15/23 4742 Normal [facility] No Panel InformationOrdered By: Natalie Garcia on 12-09-2023 Bedside Glucose Comment Glu2: cleaned meter [facility] Consent Formson 12-04-2023 Consent Forms [id number]#1. [facility] Cont[facility] Substances Agreem entson 12-04-2023 Controlled Substances Agreements [id number]#1 .00[facility] Outside Recordson 12-04-2023 Outside Records [id number]#1. 00[facility] Progress Note - Provideron 0 12-04-2023 Progress Note - Provider [id number]#1. 00[facility] Coding Summaryon 12-03-2023 Coding Summary HTMLBase 64 NbkieiakWVl5wRc+PGhlY WQ+GE7XXFOvY20zuYJijP 5kI9IVTFwUGrhlAKKUBRm KMnShnbGbOJ0lgQVvBYUr IC8+HZ3hFNBaBqbjtGCwz 3J6kHH0Y87unt1pBHvuyS T6OLKuApEozzfvq8hocWt 6IDcuNmluOyBt SGUbnR46ZGE8xR26Bt73a GLpkIMbn8xusFm0RlBiDQ SjOMQ3wRciEGnnv3PoJWZ aY99heGNus1K6 CCUorEwnmKSoAgTlxVB8f D7zTUdbhxppg3sotberSu j0sq69pTXov4Z8kRV3R8K hejV4UIJcpFJa ZuiucDQJeX8cvkqfe1kgu ltzQqFlGFHrKBn4RFd9BD IotRnkQuKuCS04UTJ0KYD szxZyH1OwQRFx hDzhPvH4z5Z8Ou5RM9UYH thsE7IAIRRWEXloxPJ+PC 77oy55U2RxPrnzIps5ZWN zEEI2uLM8vP6q IQCzFWjuv5H1sGS0Q6Ncc hIudp4bt3dzBRYgYPueL1 6qdNKxd8I3BQQxzRK3SPJ qiMkuOoUrhC71 Oyc+HXYxvZrrh7OxJzbii 7ylw9thnTe5UtpqZSSbgu IeeOouKGW4b5TwAd0bUMV qzBE5yPM4sW7b HeZiJvY3RByxI557CjNvk MDbMywgA66iV7AhqZE+PH OwEbv6KOGoyCinIH0xS7B hZGRpbmctbGVm xHyfVW7vFLKmmilaSUJkd H9aSDTuW1e5BeWlLcL2WD lfN4KaKBPepaidNz09fY2 oVhMdMgN2BRmy Q7XgfbY8FHXpcVZhWTccE NE1L93jo8P8SRVrGREzJI E5wLC4hT4ywCixczgfqIY mdDsgdmVydGlj WAqyYUwrX885OUZrjVfvT kNvZGluZyBEYXRlOiAgMD kvMTgvMjAyNDwvdGQ+PHR rOTZ8yXbuLDEi fHJtTUzpEn0koSiedJllW U2tOLJgzomfZKEetH2qXT SgkWIyxQkkYY1ePSNbhbs is657VzCjQSS0 JQJaiPClH4HbmB0rWaVfR EFzOIMeB3MpzJZjCIjwL4 36ZNdaRtM9GZObvoVrF4K sLWFsaWduOiB0 f0F1Kk4Ve4WwspwdR1Pol HWaAbWnYuawBRj4E3CtVg wvdHI+DP24WPNlBB75UTw 2SGQ0hXyuRYsg ZMImK9CozS6bBrYxMKSdO GRkOyc+PHRhYmxlIHdpZH RoPScxMDAlJyBzdHlsZT0 yQh0bMCVsSLTj fYqzoIDnKwUzd7ljUWYjU ZbhVU5czVdzU8CmnRZ2FR Fns4c2Xo90E95dX2KlmPN +BVEnpRM4cZF0 bX3hUhGwZcX6KSamN983A iQwcCMhJrpoj1kyk9pcuO j0RiQ5MKAavlLzfDtkWTK 2i3RwYg97H31f IHdpZHRoPSIxNSUiIHZhb Zyhlf8nlG9zWr6+PGNvbC Y8aHR3kG0tBlDzPvJ8QGo rB691VzLutBVw Unabz5jgm0eugWk8JfDwJ UWcxoUhkMotKIV3y5DrSo 51P3CbfBvvr0FsErl6fo1 6aRQob0H2sLU6 B9JcFDPfkqiakYGohSssS T1eVZUfbjjsEOFnxO4eHM MvR4l9LcRdQfI9SMiqB7A tuqG8MOFivTLg QJCtsMVAnU2tssoef2tyy wntItPhRLDvXLa4OEd4FP UvuZfhOlUbAAY8BrJ9CCD 4sDAjxP1aeFwl snkpgP7vIna+JXX8tDBya SKXXV2aSarttQS+PHRkIH O9yMpqVZfvTXCxwX8hJOE qV0n6OoKqUeI9 FUvoJ7XwleG0THFwrCUgA UNubBHIsI7axoopu6ztri roQcZfAEYzCTw7ENr7QSX saWduOiBsZWZ0 YeL7IEW7zJTbrX7woVsby mopdJ0fFsk+QmlydGggRG X7YRn5K7JvGya7RTEmfZz fHD1loVYzSEdv Ys4ynHrhmFpuFO8gOWGgt ofri653BwUjh8usLSUdsY ZpHTfwYPY0R52aw5I0RBW zOIYkVCT7eTX4 kG8exQkwexbaxHLjdZscc aDngZqcTPzvTEqjX109IQ DczCqjGlZeNYw3U1DwCnl 2UBOceCynCJ1o tJMkGApaRw3gfSqyaTnwD P1sCRKgkwgkr655KjEqj2 rjCDDboQVjSFyyIRR0E11 lj3V2EHAaOWMu LRZ8zOP6rY6ooTxtfjrbn GVmdDsgdmVydGljYWwtYW kwW749PLQkzXrfGaMojTu 5N7VnIal4OCAj kZzvSL1syHAcXZwgZu1ij WvnaTzkDR0iRLMyihhjl0 97FpQyi3nhCGJyyQOyDBd dZNW0P53bp5P1 HSQuBJNsEWH4oVU4hU8js GlnbjogbGVmdDsgdmVydG fpOGgcSYriV849ESVmcDv nPlBhdGllbnQg KEaoZNl0Q0HnPbvqeKH+P O92LCJyGV12aNJncOMkk0 alsAw4LmIkVHMrYOM4fUz bCUaqk8RrPSWh K98xqYUgo3A0QFBzkLyzl JSjBiYrcFE4rC8wYRldtb ohs3ruqlwdBcoye6zhuy5 1oO58H87eSSfw ZHRoPSIzMCUiIHZhbGlnb g9qxJ7nBw2+LMLftZE9fO C1iU0aXDBmWmE3DHuxN48 9InRvcCIvPjxj b3esy6alvMv9PrE0VSPwp fKcfFbgPWG0q5OhAr65K7 9sIHdpZHRoPSIyMCUiIHZ zeXfjps0sdY4j Ii8+HLFdmSP3xNP6bI4dO fCfRxF1VJtbS308EoDebO NnQltfK82cM6SleUH+PHR lNyr9EOIcfIca PQ7thJCyYIikGv7rYXW1K mBlYiKuYHdgZ1NxLJLlws neqjichXJ9SGFpZRXxiZ8 5Gj0pgRpaEEKi gBOEbM2pwmhpu9pjcyxqJ lUcCURwXYu7BKy4USTttC jyAdKhZCZ8WuL6ZPD4mNR byO1cmQunkxth mS4jT2NhCRAbxausNs58g S1fRcXuInH5GXxwLpl+SE BODK8VBNFENNDVQQWbFOV NXJ71OO26wYAu r6X5yQR6I0JiZBObkmlpl pylpBI9ZTAbLYJnrC31nM PfGQzaWf7ju2D7q827RJK wSTNndH19Yp6c uDdjBLRzuESOxA8hgftko 8ucsfzvJdAwNPNbUNd6RV g3EWNhkBciMpAlJPD9XjE 1QCE5zXXesI3u aWcdlpqqaD5dCpm+MDMvM JQgBNq0PGmfqKJ+PHRkIH T0yZjtBSpiUWXwzU5aIUW rL6p4EkArSiE3 ZIylI9VbUWPgfzqxQk32a G7sEuUxZvE5QYapB1Stlc K2EPQvvPLkKKqvNZK2T39 id7E1HNOhLDOe VTE0lAI7eT0dnAfymbdan GVmdDsgdmVydGljYWwtYW eoU207ZNAjcKyaCrYuFUv jISNsBS35QP57 lVZra3X5kXZ5R7FpYMVpa trktfmnmGG2CBTyWLWwlD 64rJCgQJakZv9yc4X4w85 5WVUrJRUnmP08 Il9gvJlvMJCacPDSkZ8mc selp8uzybnlHbSvKZWzRY j1QHz9CMQagYwbPtTpQVR 6VfN7DCJ0oXRa wF7kmVacblqpoD8gWyq+R jVEVAvZPM34QT22rIUcx0 P6sDR2D0NyERFhprpkvpf tfWR8ZKBcITSc hE34bTJbLMwlCg6wl8Y5g 203CBQjDOSqgS21Qv4szW fvLZNtyECJmF3fwnvnx4w vcjogIzAwMDAw HTk8XMl8JGGnuDtdFiHdA LS3FpI0LLT1qHQzbE0unC tgmulplF3eJij+C8X2Z3X kPjwvdHI+PC90 AGEuND54pMLshGHzh6emt Sb2ByEuFNXdUOC0sBmyIZ dok8ImIVViI91huFEkj1Q 6IGNvbGxhcHNl EmCygAN5cV8wLMjdlmfmm 9qvlmpjIlgoy2hwui67bU 62T99cLXznJLPtRDHyHRX pXLGihHavrb9p rB0iLl5+ZEYyaRL6xXG6z A7xOuGnUpS9KKnkE346Ix SfoEOrFtcms9rhz5qsgRs 9IjIwJSIgdmFs dPolKZN5u9FjKd31P49vA HdpZHRoPSIyMCUiIHZhbG zyft4dmK8lQc1+YV9kg3i lnp17hF23aJK+ IOJiVYN7aMcvXAacVFSsy K0lCHanZmO2LFXwGwPplA 30tKXkHMxiMp7zfCjhqUj oQD1cQXIgbpyh f465LvQkq9quENDawFWbQ KcsAYW5R51lm6I9DSRlHU NiISD2tIW4yI6qvMzugws gbGVmdDsgdmVy iUpeKAjzPUsaQ521RTJsh QfbWuSgnEVoY6hliiWZJK 1lOjwvdGQ+GZUvPCV1oHa nDNqcPGPssC6h VTVoG2u4WwJkDyB3EZzpG 9BzqfP8IBEtrZBfZZOhsW DDiB2avfuye4kotwaaMnQ qHJHvWNm2IDf4 BDYouOfsIaDhOCK1KsB2O HS8pHYfjS3nnIpppnwqzQ 9wOyc+RklOOjwvdGQ+PHR rYMO9nDxbGTux OLOqsZ9tDVZuD4a1GfHrH vF0YUsvF5UtesQ1DIQfiL RlDDPviMMBbV7bpucyl7u vcjogIzAwMDAw IYf7IIe3YIBgoZccXdBbC SM5AxO7JUW8xSInwH3kzM dplcnorD8eFcs+TVJOOjw vdGQ+PHRkIHN0 qCzrGKbxCVHcgP7uTMHgF 2n6UoHyJuH1RDgrQ1Dcrx F2RDJvfAGfYNFbyJITyH1 cxuaga2qxqivc DmVtNQRcNEd3JEi6IESdz IzmAaRkZJO0ZmC8UOM5fW EedR7zrTvvkvhviH2jQao +SNJ4TNN1UM10 LD39K0WrVpbfaIJacCO+P HRhYmxlIHdpZHRoPScxMD FwXuGzcTewMP6iGs1jPUG yLWNvbGxhcHNl OiB (more content not included)... [facility] Coding Summaryon 09-15-2023 Coding Summary HTMLBase 64 YtliznclCKn5gJx+PGhlY WQ+KG7LMZSoG12ibQDlwC 9oG1RVAPzCOvlmNRBKMHo BNvIbwkPnPX9imHZtJLRr IC8+SA2lINZxFgtfuHQqi 0Z4iMZ1S33tdw9iCBmrkM D0SHBcEsXvmjasp8cliZj 6IDcuNmluOyBt IGCdnS01TXT6dW33Qf61d UTsnCOey4dghFi5DoUwOR SsXGU7qLedDHdzo2LkTHE tZ91ipXQrt8Q1 YVMxqCoquQQvRsFzbTT0z Y1rDXshadqkj3mybzawWa g7xx29eZCnc0G2yGT1Q0V qnkZ9BOXguBTm YroyeAPKtN0hqxhul9gys uyuUdImDKPqXPn6AAg6ZU ZhdDcaTjBmQZ40YFB7IDW qcjWmG3XtNNLn bMzgBqX4g9O1Hb2LL0MUH lrmU1YNWVWSDIvblWZ+PC 83nz26L8AhWddjYow6BDY nBXG3lEF2nO8w LANyVPgnw7N7fNO5D7Gbz xUnxx4db3lcBWYcAZleZ0 5xiFVqh9D7ORWxfVC7BHU unCukZkWlaA01 Oyc+ZYLmcCeys6UlLcxsk 5knn8ivnNh6HnooHGSxrs WbwLgsWUP3u3DtNw0cSGM ihZI6eMX1rD6w NiHvIgO8QZksM833WzJai DBzXxgaO21yN2FofHP+PH LzKws9TZOudUacFJ2kI1U hZGRpbmctbGVm vHggTA5bCNNomyooVSWox X3lJXTrA6c3GmHnFnJ7CF ifD4McJGDjxxaqVr10cU6 oYqXgXcT6EKic M7PvrpX5FBIkpHMbASzsW YF0A32zr3G1TLCiNNUvSH C3tQQ1oB2ckAacbupsnTM mdDsgdmVydGlj YHeaSDwgA969DKMdgQqgN kNvZGluZyBEYXRlOiAgMD cvMDEvMjAyNDwvdGQ+PHR uDKK2sApoFJRq zNKdCQrzVx0zcMpauXvbP N5iJZQuwotuODIpoE8yHH UliXUgvHjbQA4cTODxpzi gy619AwQlVIT5 HKDxoXIeJ7AhuK8iVoTaK PImMRXtF0VefWOpHEndA7 44GFduZqO7DXHnaiUeO6K sLWFsaWduOiB0 x0I5Kg1Vr1GcxepxL1Yps BTfVkJiVzhvIJe6W3ZpTf wvdHI+YY65WBWcBU62GFi 7RGR6aRvfQRhr SKVsL3XpgR3aNkOhXFTwY GRkOyc+PHRhYmxlIHdpZH RoPScxMDAlJyBzdHlsZT0 zXz6rMVLcGMVw vMisjSSpFdJsn6wqFPUmE LqfEM2gqJgdV1WrpWC5IN Spp3e4Ii51Z81fB9WerZM +WTDmuDB9dZN8 sM2xGzHlEzI9NAxjT945L dMwvSYvXsycj2dvp0byyM e4GmN3AYIpvzJwrJjlEIT 1a9QlOg71B96y IHdpZHRoPSIxNSUiIHZhb Drkrr8uvX9wYx6+PGNvbC Q7eVC2nL0hWgBpBiA2QBg xE688JzJdvZLa Rknru3yts1peuBo9SnAmP YZodsXizHqtOYT8j9OrAf 79K4LkrUobc8PrQwp9vx0 3nVSwz0Y1pJS6 R7BkAWOpbykicAUghEhwE S5xUHIqoqwcTWFriS8vEM BxJ1m1JeQvOxF2RBcwM1D wprG8VTNpxGDh DPRehNKYkD9tullwr9ulz yonKsXlRBPhWEy3VZu2PY LpkDggXpHvRYZ2NiN5YNT 9jSTgdH8tjEql xazmtL4nLma+ZTS5fEZao KAESC6tJfkgeLD+PHRkIH U9aCrpMBqhZJLrkR2hHAK yD3e2MfBuZpG8 ZPtbZ1IgoeH0LACltBQzC OVioVUIrZ3zcfspy5jylc rnYeLmKOMgHRx4KWp9KGW saWduOiBsZWZ0 MaF1NJP9zAPbwS1caKjmt dgkgX0mGwo+QmlydGggRG A7TGg6M3RyVdz9ULLzpIt bMB6aaWBjZYyx Zc2wcYukjMmnOB1zEVJqy nsjj999UhWam2mqBELpqG TzDXfjSTI5W78we4N5ZPP gCJTfSOO7xAQ1 gC1chXlutqcafICqiHisl wRgbCedUHxmXKhbK512AQ XymKzgIpUqTJc7Q1KpTxy 0EWJcbUahXK6e qATgGRzcUh6taNcyxAklS B7lKWDfriiug396QnZjb8 siHRDynYQpVLruUIY5H39 dv1M3HOFdRUKl RLI4vGQ7bX4ugPlyyupgz GVmdDsgdmVydGljYWwtYW pcB924RSKpaDfjGdFvvEp 3V3QzGzx1MBYq mSrmPO6cdUXkRZabJc1dy KkeoRccFS6dQGGfvcrsb0 99CvFma5qwBEBfbDCeDEx qAPM5U72eq8H2 XHAlEXQqAPC0tTV7yH7hy GlnbjogbGVmdDsgdmVydG vpVVclFWdqA051TDVkiVg nPlBhdGllbnQg RQblWEl8V1HfBqkzkZE+P N83WHEiKB07nBGnjFNjc9 nvfYx0WrLwVJSxQON0lNe rIJjjo7VgMJUm J54yjIHvu3M6DLHjfPllk BQzSoTcpGN0vQ0zOXqjia hch0xddgjcNicip5aids7 4aC77Z62pXGax ZHRoPSIzMCUiIHZhbGlnb g9lhE3hXy0+RYHnvVO0iI Q4qY2bEGNsRcT4OExtI30 9InRvcCIvPjxj b9wbd2bksCq4IeD1AITwy jGkkGilTGQ5e4TjBo89E1 9sIHdpZHRoPSIyMCUiIHZ whJlwba6lxC1m Ii8+OJKrpLL9kAY7vB7qL zVmScX7RUpgU860EiJxoW McIxsxX51wQ9BjjZD+PHR oHgz2TGCkrJqw RM8zqVVrMXunNu9nJPF7U mThOyVnPAxdM0StTDFkvc cappwadXM6UIMxHUAqfY1 3Xj5qpWmvVXWs jJEIrS6yofayr2kzqkixP fZnHGVqFAe1IKx5ELEmtK ypTsFlXVB2XyO7MXR1fIE atE5bhVaiqezd hC3fU7ThBKZscrydQb36n I0wTaTjTjY6ECxuWhh+SE WSZS5ZGBLJEDWPAGIzMVQ UTB23AR61fDZx e2G6rKO7J6HjJZPulazgw pvugPQ1CVOpCKEzfT33sF BxFQsyJr2dk5Y8h186LRI zZHPhkS43Ni5c xUysHJEzkWEHeF7ypygju 8pzdnggNrRlJYFiBXi3WW p7MXPkwQmaXhHlXTX6ZyX 6QVR0qOAueX2s bIxvwblbgF7kBnb+MDMvM VIbJJu3INntaNB+PHRkIH U0rWiqEZhcVOAngU6mIRE gP7t2FhZdRuD0 SEryT8SwIGSlhybnBe01x I9kWiCvVmT5MIoeL4Xnja J7PRCnyNZxURhvJEZ2J60 oz3B2KZBxDCVk HYH9jQK7fW7grOjfeiptn GVmdDsgdmVydGljYWwtYW fxK339FRXfxXsbCgWmIHv gOPKnTY13YK04 dMPak0A8fLN3S9MoWJTcv erfphkhrGJ0GLDgGTRwiO 38cYJwZOanZm6xw9S1a43 0OJOzUPOubN04 Tf6wiYxkXUTqbFORlB8kc lkjc5xhozmaDdDxLTXxWZ u5HQj3PSFdtDryPqDwPRH 7KmD5TLA9mKZg uS6akTygykebaC9qMlo+R fHDLRmYZM47FM29nBThb5 R6dGS1Y5TcOFGesgblftd srGP6GMPcPMSy uJ00uETaVSljHo6cs8U9l 456UPOfLMWbdA93Dw8lnH neKTSjfNCQgM8jzairh7k vcjogIzAwMDAw NKg3FCj8DXKrbFnyVjUnH AG3VwD3BHX0pAIbgU9wcH cedpwesM7fLnj+J3N9R4L kPjwvdHI+PC90 BDZrOV28qOBcaFJzt1tfi Su8ZhGjLUEiUNZ8aNkxDN fvh5FcAETqY83xgOTxv8I 6IGNvbGxhcHNl QsRvyPK5qI5rYGeupqcfz 1gjeytxDlfej4tdgc93hA 09G03fIJpmJQKrDIEqJDQ yYRFzvOgbyg4b fU1hUo5+NCYocWB0tJC1i V6oErTaRbG6RBkmZ716Tp RjkIHkKumlj6eya8rjhSa 9IjIwJSIgdmFs tGerNBX4a7TxOc48M94vB HdpZHRoPSIyMCUiIHZhbG typt9otL4jLq4+PW2om8n ifo02fS31yBY+ EBTbNSB0zUarJCubFXRsq W9kTIcwQaV0JDXjWuVmtS 92jWHoXJrnYu4ekRfqwOv pDV2eMUIbhaix n349DzHqo7szTAZjoEBcN VfvUGG6Q22vg6W5ISVyUT TfSLC0sUW2lJ7fkKqcnay gbGVmdDsgdmVy lErzOJyjMUbxD281JCOva JvbJeQnqMRxL6xtvlIQYE 1lOjwvdGQ+ZKKaNAK1yNq vSImlRHDlfK6j XAUqP1k9ZnJaNlN0NLinJ 5CcvsK5OYMttRGoRRBtiI XUfC0gajkiq3lgtdsjPlK pPVTrAKg8NHy5 HINifLomEwGnIGQ0PvE5K YP9vKBavW4xiCrarppvjT 9wOyc+RklOOjwvdGQ+PHR hCSE8kKyeVGgs FTYnuN5nDYPsI3c9MwYeZ xL5QBycB0BgujW8LQRnzH WdGQKzdXDJaB3kchbbu2y vcjogIzAwMDAw XSg3BGm6NSGzzEwkPgFyO JH9GyQ9QWQ2lRQtoX1ieA glyfuqkC7pCvi+TVJOOjw vdGQ+PHRkIHN0 nKaaRFrhNJVydA6cSPVqN 3a9ClWxAfL7EVpeK2Dlhe B6EJJpzNFmJHUpiVHLyY8 cmexcg1whbtay DyInIPEhOGd2CWh6SEZea UbeBzMwQQC6MsJ2TST2dI ZkqT5nrXrsiwipxV2mPiu +NFK9EMG6TE72 OX48R0MhStiyzAEqsVG+P HRhYmxlIHdpZHRoPScxMD OwFxPhnQbiZK2oXl0bCFS yLWNvbGxhcHNl OiB (more content not included)... Normal [facility] C Urineon 09-03-2023 C Urine Urine Culture ordere d as a result of parameters set on specific urine dip and urine microsopic results. Mixed skin, or urogenital wally. Clinically insignificant Normal [facility] Comment on above: Performed By: #### 5 [id number] ####[facility] (DEFAULT)[address] [place] [address] ED Clinical Summaryon 2023 ED Clinical Summary [facility] ? Urgent Care [address] [place] [address] Clinical Summary PERSON INFORMATION Name: CHINMAY KNIGHT Age: 48 Years Sex: FEMALE : 1975 MRN: Acct#: Visit Reason: UC - Genital Itching/Lesions; UC - Urinary Frequency; GENITAL ITCHINESS Arrival: 09/01/2023 14:44:59 Discharge: 09/01/2023 15:34:00 LOS: 000 00:50 Check In: 09/01/2023 14:44:59 Checkout: 09/01/2023 15:34:00 Address: [address] [facility] [id number] PCP: Provider, None PROVIDER INFORMATION Provider Role Assigned Unassigned Romeo Meneses ED PA 09/01/2023 14:49:39 Freedom RN, Charmaine Gonzalez ED Nurse 09/01/2023 14:49:45 VITALS INFORMATION Vital Sign Triage Latest Temperature Tympanic Temperature Temporal Artery Pulse Rate O2 Sat 96 % 96 % Respiratory Rate Blood Pressure /80 mmHg /80 mmHg MEDICAL INFORMATION Medications Given: Allergy Information: Keflex; codeine PHYSICIAN DOCUMENTATION DISCHARGE INFORMATION: Discharge Disposition: Home Discharge Location: Home PATIENT EDUCATION INFORMATION Instructions: Vaginal Yeast Infection, Adult Follow-Up: With: Address: When: Follow up with primary care provider Within 3 to 5 days Comments: Diagnosis is vaginal yeast infection and abnormal urinalysis. From history and discussion we are treating for vaginal yeast infection. I provided you with oral medication and vaginal suppositories use as prescribed. Urinalysis is negative for acute infection, but will be cultured, any positive findings we will notify you. Follow-up with your own primary care provider for reevaluation of your complaints and diagnoses. Return for worsening symptoms or concerns. DIAGNOSIS: 1:Yeast infection of the vagina; 2:Abnormal urinalysis Patient Understands: Yes - Patient/family/caregi marcello verbalizes understanding of instructions given Comment: Normal [facility] ED Patient Summaryon 024 ED Patient Summary [facility] ? Urgent Care [address] [place] [id number] PATIENT DISCHARGE INSTRUCTIONS Patient Information Name: CHINMAY KNIGHT Age: 48 Years Date of : 1975 Reason For Visit: UC - Genital Itching/Lesions; UC - Urinary Frequency; GENITAL ITCHINESS Arrival Time: 09/01/2023 14:44:59 Primary Care Physician: Provider, None Attending Physician: Romeo Meneses Comment: Patient Education With: Address: When: Follow up with primary care provider Within 3 to 5 days Comments: Diagnosis is vaginal yeast infection and abnormal urinalysis. From history and discussion we are treating for vaginal yeast infection. I provided you with oral medication and vaginal suppositories use as prescribed. Urinalysis is negative for acute infection, but will be cultured, any positive findings we will notify you. Follow-up with your own primary care provider for reevaluation of your complaints and diagnoses. Return for worsening symptoms or concerns. Vaginal Yeast Infection, Adult Vaginal yeast infection is a condition that causes vaginal discharge as well as soreness, swelling, and redness (inflammation) of the vagina. This is a common condition. Some women get this infection frequently. What are the causes? This condition is caused by a change in the normal balance of the yeast (Ana) and normal bacteria that live in the vagina. This change causes an overgrowth of yeast, which causes the inflammation. What increases the risk? The condition is more likely to develop in women who: ? Take antibiotic medicines. ? Have diabetes. ? Take control pills. ? Are . ? Douche often. ? Have a weak body defense system (immune system). ? Have been taking steroid medicines for a long time. ? Frequently wear tight clothing. What are the signs or symptoms? Symptoms of this condition include: ? White, thick, creamy vaginal discharge. ? Swelling, itching, redness, and irritation of the vagina. The lips of the vagina (labia) may be affected as well. ? Pain or a burning feeling while urinating. ? Pain during sex. How is this diagnosed? This condition is diagnosed based on: ? Your medical history. ? A physical exam. ? A pelvic exam. Your health care provider will examine a sample of your vaginal discharge under a microscope. Your health care provider may send this sample for testing to confirm the diagnosis. How is this treated? This condition is treated with medicine. Medicines may be agbz-kxo-dycinlq or prescription. You may be told to use one or more of the following: ? Medicine that is taken by mouth (orally). ? Medicine that is applied as a cream (topically). ? Medicine that is inserted directly into the vagina (suppository). Follow these instructions at home: ? Take or apply dppy-lky-vomsmjk and prescription medicines only as told by your health care provider. ? Do not use tampons until your health care provider approves. ? Do not have sex until your infection has cleared. Sex can prolong or worsen your symptoms of infection. Ask your health care provider when it is safe to resume sexual activity. ? Keep all follow-up visits. This is important. How is this prevented? ? Do not wear tight clothes, such as pantyhose or tight pants. ? Wear breathable cotton underwear. ? Do not use douches, perfumed soap, creams, or powders. ? Wipe from front to back after using the toilet. ? If you have diabetes, keep your blood sugar levels under control. ? Ask your health care provider for other ways to prevent yeast infections. Contact a health care provider if: ? You have a fever. ? Your symptoms go away and then return. ? Your symptoms do not get better with treatment. ? Your symptoms get worse. ? You have new symptoms. ? You develop blisters in or around your vagina. ? You have blood coming from your vagina and it is not your menstrual period. ? You develop pain in your abdomen. Summary ? Vaginal yeast infection is a condition that causes discharge as well as soreness, swelling, and redness (inflammation) of the vagina. ? This condition is treated with medicine. Medicines may be rxqh-vec-dhetbfl or prescription. ? Take or apply ssxu-obl-blghhcx and prescription medicines only as told by your health care provider. ? Do not douche. Resume sexual activity or use of tampons as instructed by your health care provider. ? Contact a health care provider if your symptoms do not get better with treatment or your symptoms go away and then return. This information is not intended to replace advice given to you by your health care provider. Make sure you discuss any questions you have with your health care provider. Document Revised: 05/21/2021 Document Reviewed: 05/21/2021 [employer] Patient Education ? 2022 [employer] Medication In (more content not included)... [facility] UA [id number] 09-01-2023 UA Bacteria Rare [facility] Comment on above: Order Comment: Urina lysis Microscopic order added on by Discern Expert Rules system. Performed By: #### 5 [id number], [id number] ####[facility] (DEFAULT)[address] [place] [address] UA RBC 3-5 [facility] Comment on above: Order Comment: Urina lysis Microscopic order added on by Discern Expert Rules system. Performed By: #### 5 [id number], [id number] ####[facility] (DEFAULT)[address] [place] [address] UA Squam Epi Few [facility] Comment on above: Order Comment: Urina lysis Microscopic order added on by [employer] Expert Rules system. Performed By: #### 5 [id number], [id number] ####[facility] (DEFAULT)[address] [place] [address] UA WBC 25-30 [facility] Comment on above: Order Comment: Urina lysis Microscopic order added on by [employer] Expert Rules system. Performed By: #### 5 [id number], [id number] ####[facility] (DEFAULT)[address] [place] [address] UA w Culture if Ind Standard on 09-01-2023 Breakpoint UA [facility] Comment on above: Performed By: #### 5 [id number], [id number] ####[facility] (DEFAULT)[address] [place] [address] Color (U) Yellow [facility] Comment on above: Performed By: #### 5 [id number], [id number], [id number] ####[facility] (DEFAULT)[address] [place] [address] Culture? Indicated Invalid Interpretation [facility] Comment on above: Result Comment: Resu lt created by rule GL_MAGR_ADD_UA_CULT Result created by rule GL_MAGR_ADD_UA_CULT Result created by rule GL_MAGR_ADD_UA_CULT1 Result created by rule GL_MAGR_ADD_UA_CULT Performed By: #### 5 [id number], [id number] ####[facility] (DEFAULT)[address] [place] [address] Glucose (U) [Mass/Vol] mg/dL Normal [facility] Comment on above: Performed By: #### 5 [id number], [id number], [id number] ####[facility] (DEFAULT)[address] [place] [address] Ketones Ql (U) Negative Normal [facility] Comment on above: Performed By: #### 5 [id number], [id number], [id number] ####[facility] (DEFAULT)[address] [place] [address] Micro? Indicated Invalid Interpretation Code [facility] Comment on above: Result Comment: Resu lt created by rule GL_MAGR_ADD_UA_MICRO Performed By: #### 5 [id number], [id number], [id number] ####[facility] (DEFAULT)[address] [place] [address] UA Bilirubin Negative Normal [facility] Comment on above: Performed By: #### 5 [id number], [id number], [id number] ####[facility] (DEFAULT)[address] [place] [address] UA Blood Negative Normal NEGATIVE [facility] Comment on above: Performed By: #### 5 [id number], [id number], [id number] ####[facility] (DEFAULT)[address] [place] [address] UA Clarity CLEAR Normal CLEAR [facility] Comment on above: Performed By: #### 5 [id number], [id number], [id number] ####[facility] (DEFAULT)[address] [place] [address] UA Leuk Est SMALL Abnormal NEGATIVE [facility] Comment on above: Performed By: #### 5 [id number], [id number], [id number] ####[facility] (DEFAULT)[address] [place] [address] UA Nitrite Negative Normal NEGATIVE [facility] Comment on above: Performed By: #### 5 [id number], [id number], [id number] ####[facility] (DEFAULT)[address] [place] [address] 21712 UA pH 6.0 Normal 5-8 [facility] Comment on above: Performed By: #### 5 [id number], [id number], [id number] ####[facility] (DEFAULT)[address] [place] [address]8098 UA Protein Negative Normal NEGATIVE [facility] Comment on above: Performed By: #### 5 [id number], [id number], [id number] ####[facility] (DEFAULT)[address] [place] [address] UA Spec Grav >=1.030 Normal 1.001-1.035 [facility] Comment on above: Performed By: #### 5 [id number], [id number], [id number] ####[facility] (DEFAULT)[address] [place] [address] UA Urobilinogen 0.2 mg/dL Normal 0.2-1.0 [facility] Comment on above: Performed By: #### 5 [id number], [id number], [id number] ####[facility] (DEFAULT)[address] [place] [address] Urine Source Clean Catch Normal [facility] Comment on above: Performed By: #### 5 [id number], [id number], [id number] ####[facility] (DEFAULT)[address] [place] [address] Urgent Care [place] 024 Urgent Care Record [facility] ? Urgent Care [address] [place] [address] PATIENT DISCHARGE INSTRUCTIONS Patient Information Name: CHINMAY KNIGHT Age: 48 Years Date of : 1975 Reason For Visit: Itching; GENITAL ITCHINESS Arrival Time: 09/01/2023 14:44:59 Primary Care Physician: Provider, None Attending Physician: Romeo Meneses Comment: Visit Diagnosis: Diagnoses This Visit Abnormal urinalysis (R82.90) Itching ([id number]) Yeast infection of the vagina (B37.31) If you received any narcotics, sedation, or any other medication that causes drowsiness for the next 24 hours, unless otherwise directed: ? Do not drive a car. ? Do not operate machinery such as power tools, lawn mowers, drills, sewing machines, or stoves ? Avoid alcoholic beverages and drugs for allergies, nerves, or sleep ? Do not make important personal or business decisions or sign any legal documents With: Address: When: Follow up with primary care provider Within 3 to 5 days Comments: Diagnosis is vaginal yeast infection and abnormal urinalysis. From history and discussion we are treating for vaginal yeast infection. I provided you with oral medication and vaginal suppositories use as prescribed. Urinalysis is negative for acute infection, but will be cultured, any positive findings we will notify you. Follow-up with your own primary care provider for reevaluation of your complaints and diagnoses. Return for worsening symptoms or concerns. Medication Information: The exam and treatment you received today in the [facility] were for an urgent problem and are not intended as complete care. It is important for you to follow up with a doctor, nurse practitioner, or physician?s medical assistant ob gyn for ongoing care. If your symptoms become worse or you do not improve as expected and you are unable to reach your usual health care provider, you should return to the Emergency Department, we are available 24 hours a day. For those patients who have received Radiology results, the interpretation of your X-ray as given to you by our Urgent Care physician is only a preliminary report. The Radiologist will review your films and if there is a change in the diagnosis you will be notified by phone. Please make sure you have provided a working phone number so we can reach you if necessary. In the event that you had a lab culture while you were a patient in the Urgent Care, you will be notified by phone if there is a need to change your antibiotic. Please make sure you have provided a working phone number so we can reach you if necessary. [facility] has provided you with a complete list of medications post discharge. 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 Any specific questions regarding your chronic medications and dosages should be discussed with your primary care physician(s) and/or pharmacist. New Medications [id number], [address], [place] [id number], [phone] fluconazole (Diflucan 150 mg oral tablet) 1 tab(s) Oral (given by mouth) once. Take one tab now and repeat in three days. Refills: 0. miconazole topical (Micon 7 vaginal suppository) 1 suppository(ies) Vaginal once a day (at bedtime) for 7 Days. Refills: 0. Additional medications on your home medication list not specifically addressed. Please contact the ordering physician if you have questions about these medications. apixaban (Eliquis 5 mg oral tablet) 1 tab(s) Oral (given by mouth) 2 times per day. aspirin (Aspirin Low Dose 81 mg oral delayed release tablet) 1 tab(s) Oral (given by mouth) every day. bumetanide (bumetanide 0.5 mg oral tablet) 1 tab(s) Oral (given by mouth) 2 times per day. empagliflozin (Jardiance 10 mg oral tablet) 1 tab(s) Oral (given by mouth) once a day (in the morning). isosorbide mononitrate (isosorbide mononitrate 30 mg oral tablet, extended release) 1 tab(s) Oral (given by mouth) once a day (in the morning). metoprolol (Metoprolol Succinate ER 100 mg oral tablet, extended release) 1 tab(s) Oral (given by mouth) every day. omeprazole (omeprazole 40 mg oral delayed release capsule) 1 cap(s) Oral (given by mouth) every day. pregabalin (pregabalin 100 mg oral capsule) 1 cap(s) Oral (given by mouth) 3 times per day. rosuvastatin (rosuvastatin 10 mg oral tablet) 1 tab(s) Oral (given by mouth) every day. spironolactone (spironolactone 25 mg oral tablet) 1 tab(s) Oral (given by mouth) every day. Visit Information Allergies: Substance Reaction Symptoms Type Comments codeine Drug Keflex Pruritus Drug Vital Signs: Vitals and Measurements this Visit (last charted value for your 09/01/2023 visit) No vitals and measurements documented Problems List: Problem Onset Comments Tobacco user Patient Education Vaginal Yeast Infection, Adult (Inserted Image. Un (more content not included)... [facility] Coding Summaryon 08-21-2023 Coding Summary HTMLBase 64 UhqygxawWNp9yHk+PGhlY WQ+CA6CPYXzN79xdEVunS 1qJ9PWKWuLZceiHNMNIJy IBkHtjnQbFC6rxEUnDCDa IC8+SZ6hVWPbJrltoXItg 0R9jUO6G59nzt0wYNslpO X1NXClAnVssqfbp8cuwUq 6IDcuNmluOyBt MRQdcL59JYC6rR19Cn04f UCveTWlt8wunQm4WdRwTV NpVST3aZypQDzqs9JpBKH oK05nnBWdm1T6 PIHieBylgDDyDaWggRW5a Z8sBHbjwnsyo0juygbyJs o8rd52tCAgf6H4rKK5N7Y nzvP0WYRwjWLc FsslePDEqQ4hzlbtc8ceu ldjEjZjSUUzTIc8XIo1EO QwaTtqBeZjOD31MLH6WGM kurUlY2FeEQWj hCtaUaD9b9M1Pg0YA2UYM tyaA6AFEESCDRnvhCQ+PC 09iu46A3MrLpicZwl6JDQ wWSH2uQR4eN6p RMUrIShtt9L8pBP7O8Wom fLkji4ac5ydGSFxAKsaT0 8reLSlu9I6YFCknTO4XQW yaVjiSsRyoC25 Oyc+AYVwmTbwr1MjBlbfg 1gte3dxqUb3YhbjDJMwbd KyzExdTZM4p8ZzLe4iBGD otWJ9iNM3zI2q XiAtYlL9VKlxO963FlXcg IFcHkauJ88pX9GtrZY+PH BkXee9OCVfwLgvGK1rB1K hZGRpbmctbGVm oWurMU1bXOPgpcltZPRuj Q0iCWJfY7d5CaTzJsX2TI gbF7RzWTGlbgmpGa26hN2 mNmKsWaU8ITnr G6AzhlV0VGUxbRMkUTicZ JR7A94gr9U8FZPjYIUvXD F2oOI9yG3qzUuxnhlcvFY mdDsgdmVydGlj PFdmKZtuF047EIXffWqtG kNvZGluZyBEYXRlOiAgMD YvMDYvMjAyNDwvdGQ+PHR xNNG7xPknLNRi dCKnNHqlOq7xwCrnhDkzE C2zTUAxiffuZYEhhV9wOQ EouFXxiXnnAI6gMLSarbz dr352ZdSkGOI0 MAUysCJnT9UauN9gBpZmG CBdMBCrQ3IngWSgAFnkD0 26PGeqPkZ7TWYhxoAiW4E sLWFsaWduOiB0 c6T1Xd0Vh4NyswpaV8Ysz VLuBjKeDnfrICp8J6IxIs wvdHI+WL19WGBrPM34YHz 3DGK3bNzcTKkz YXVvR8JtvP6jIiIpSZMpP GRkOyc+PHRhYmxlIHdpZH RoPScxMDAlJyBzdHlsZT0 sFc5nINKyXPRk kKequILhMfGcq9qzMFNjK UkmTR2qrTioV3FqbOG1EI Lyd3l4Ql28P33aA5FkbWY +XBDctZV9hWP6 jG9hKvArMvX9ISezP628A cBjwSNlOqqzn1qao9ufvY o7LtL4XLDumaGojHjrIJW 1d8HkXa78G24n IHdpZHRoPSIxNSUiIHZhb Rebwk6rvS4hSl3+PGNvbC Y3kMP7bM0zJmBjSuF0ZHa hS645YwYtdSQl Sfupr3vcy8wbyEe4CnMjY PAsmcCmmGevPCF6a2BtJz 70O2ZphItok3SqXfb5cc0 5gKTtj3U1mWZ8 H0QuXAPhhvpsnGTsiDefT T4zQFYlpjmqUCDmwH3zQX UgQ1q4JrHtUeK4BZraT9U txtZ0LWMvtKWc MXKbuCVZxE6ylirsc3osy dkvZxDtLNZcHCr7ITm3GB KwyAyzGzBoLKY5GpZ4NYP 3lCPazT3ceAkz nbdzuK0bRsg+OBS4pLUlx OLHLZ8qOiuvyKA+PHRkIH B4cZxiRHytFLFfvM3pINA nX9a8SxPlOvX8 AXwgJ3FtnlJ1YPJcjBJtM KFyvXYWnK7bphasl4axiu rwFuVjMTQoNMe5JHf4UKG saWduOiBsZWZ0 WaJ2CKX0vUQucC3qkGqbk bctzT9hGwt+QmlydGggRG T6CWr3N7ZeZjw9DEAssSx cIF5flXLeFTad Ak3pwQkfcLtlTN4sNQQlw hdlc356JvNjs0jwOGPhrX NxCQmmRVZ1E51un0X9LQB fOZMsBNR8kGC0 wJ1czFwqhlqolBNocHgxu fHgrRqyLNyhCMvtI007ZG ZwyOrtCpBiZZf9L9SjWen 3BWVpyFcvDP4h dKXfAWviOk6huNiqoNtfW I6iKVGixfmqr368LhNlp8 hsAWWlwCPhOIkpVGY8R86 qh1N1CRRgHSMz ACL2aEO2rI8zvDktcuapk GVmdDsgdmVydGljYWwtYW tjH350JBZujCzpRjBhqFe 7M6RjXoq9ZQLi vMbwKP8vlVQgZKlbRt1yb NwbxGpfTL8bYDOfzffdg3 69RsOow3wpRYWohCWhCRm qWMC8S59zh0P5 CVPcTYBqBMR2yVF7hA7jb GlnbjogbGVmdDsgdmVydG iyPXvsFXwkG946KSZwmFl nPlBhdGllbnQg QBiiBTc1R0QySbtcxGR+P U18CVTmDH95lVRbiPRcw3 burDv0CgNsODQjRFB0mSn yHVgmg1CjKGBi O85fgGCug9Z5RBNrsOiou KLhMpEjrYJ6cP3zFQrwbs rhq7kizeccHkche7snhi7 8gV87D02bMAxk ZHRoPSIzMCUiIHZhbGlnb s0hwA1kTs9+BVPrgFD7sR X7oG0lOLWgAyR3WPqsR82 9InRvcCIvPjxj q2ogw9xxlPl0IoV9ZQLwz qVsrYxoPXP0f7NmHl24P5 9sIHdpZHRoPSIyMCUiIHZ quQeshz2jkA7j Ii8+FRYdiAS4qFQ4qU8kC fYqHvZ6CAfjK023ZzAekC AaCihyC48lA2PsnNC+PHR lPnn8FCZkeGxp YR3ffFNsYZrwSb8pDXB6J hSzXmFlGEjjR6BhLAXatl tzqvuutFN9AFGfFQJczA3 4Ln7vwWjdUCBv hWMEaB5dqgqie7xambtjV nJhXSQqKWg7BYq8CYHmlK okAkPzIAC8LbS7VQZ2bNF qeZ7azJglktdu hP1fE4UkSEEousofBt12z Y6hWsLhInI9RDnbAot+SE XIWY8AFHQVDCNSGPQiTAi vdGQ+PHRkIHN0 mXguBWuwEPCrjA2gMGDwG 3j8SgRqAcP8AVjhD7FlCB EtkxjwEz66iZ3iFmGwSeN 0VQxaW8VjrtY7 HHPtgKEiIWarOFL0M43yp 8T8SZMbGDRkWKS3fBC9hG 1hbGlnbjogbGVmdDsgdmV ydGljYWwtYWxp F479XKBqpMhyKqObQwHzP cU1UcM5Q5DmTvq8EKHmpW ouDV3foSDhXIioKe7edOn zoFaaGZ3bCLMr cwbiKBKxqF6lCJUixSRhb TaeEF2aJOLyxutfg109Gz NlBPK4DHUdtVSeF1CiyF5 yOiAjMDAwMDAw T1NeaCCgPZmuB259TQklJ oN8PBJbxwRxN5XfPGVpuC vrOfV7d5G5Sp03BUGPDTF yczwvdGQ+PHRk FIJ5pAtqNKcfKSMzaO5yC TXbI5e2AmCnFkP6NRzwY9 LeHMRoyfuhSm78eZ4iOiH kUzU3UKhcB8Ku vfP8LNCthPWyBKrfIEU1T 34rm0B0XQEfDRVmWPU5cI S6qP4lyYrblmybyAAhhFt gdmVydGljYWwt SRfiL887AJUgnHugUoWKR UFMRTwvdGQ+GSUqVYT9jY viBBunNJZnlY3jZTRyA1s 5TlHwUrS6CNnc G4VnKHNouyxxGz40xH6iD zQgIlY1ERbzC1SdxeY9QW SyeMNnBInqTYK4L51it1W 8PTFzSPLpHBQ5 tGR9wU0joUjfucftsXThi DsgdmVydGljYWwtYWxpZ2 21VQBbnUrjRlKtZKGyGZ7 jeTwvdGQ+PC90 to34J6VuRoahKyc5GZWhH RS9uKM4nE3yHQPiZTtbd6 I8jGB1Q5JbgiLefe8lf9w dWLEzELvpM70y iSDrc0O7KDTodGE3PMHtc MboZgNfhU59Kbh+PGNvbG yic5QgYajaa8slf5jqfAp 9IjMwJSIgdmFs vLjpKXJ1u9UwLo71Q54bW HdpZHRoPSIzMCUiIHZhbG auez1mxU0kZv8+PGNvbCB 8sND9aI7wRaAa CuV5OHbaW618BiTwsCViD jvcd9brm4wwwWs3SwNfAY ZhkrTemMbyJUW4a7HzCa0 6S9YzpPwdr8Wb Uor8ph29yCUnu1C8uES4F 3BhZGRpbmctbGVmdDogMC 1yJHFvwvygCGPfgN4pFAL eD1f2YxYzPpA2 FQvrG6BbdoU2QQOeqFAhZ BZskSFDdO6qpbpue7mfhm amAwGdSRJkVLw2MLe1DGU saWduOiBsZWZ0 AzI6HMP2mMVheE1edRpzb ebsnT1rMfv+HOk4y3yzkM AkNN9kfFO6EF63GJ97sRB nx1O7oNG5P1Ul RGWqrsamkmkptNV0DDEjR ESeyW35Ba8faSfrSa4zXR BrXLU7WBJreDFvP9KdmJ4 yOiAjMDAwMDAw M2DwrZSgZVknE159RHgxU rO1EQTxxkDyF2XeOJTrxE pyDfJ4n1F1Ja5OUF97DG7 6EJ44gYQyv6I0 uWQ2O5ZiSTLpoltjmvfoe GE3TIHhZYBszA26Gp5wpH lnZp4gDPGzFBV8RBOqcAM jI5KylM8hEiSz JGZbUWPfS6CgvUCpBTzxJ 175IZxvSzU8XOBrawMgV4 OyUVEydNxdIaN1p5B4Tm5 NJd89FV19BY34 xGVvr0R4tSL2T8HbAYJjo qtccugjrII7TQOvKWBghB 78Ol5poIltTy9iHHYsMAE 1CJSefTZaU0Cc xP3kVbChJPQyGCWcQ4Nkk FUbNTfjY923CTehLbD6SJ LfdfCtP7WxGFVolHooBtH 2o1X8Fw0YZRkj apo2Q1OcFrumaOF+PC90Y GYeXP68pQEvlQOtb3vdlJ q9JkFsYSIeKDX8eLvpKQk hl1KxMIFsM48i bGF (more content not included)... [facility] Coding Summaryon 07-31-2023 Coding Summary HTMLBase 64 IqehvvikPXk5rFw+PGhlY WQ+IS5LQUFwZ72vnDAzyG 8aT4NNGRiJXsikLUJYLPm XZlFqexNbWU6jaPCtMDQu IC8+OG7lMOHwUsolqLAnw 1U8aQX4T78dhd4vCUxwzT B9QYLjHlYhlzieq8hdlSj 6IDcuNmluOyBt QDRreL31ZVW7yG33Sn13x KWqsVQiq4qonWq0XpFbEW FfRRL4kRyeVHcjq0SnYVP yN06hqDVoj3V2 DNAsyGivdOAkHiPflXH0k X2sNFahrcaap2llmsnqWp h0ec10iTLkp3P5oQP4R3Z ykjH0OKBeeOYl IdchqVARwX7usnygi3rkr xagKyQxXKZzUHz6TBw7PZ JivIydNfRsGO30HON9EBV jgeKkS2WpXQKh nAxqZyQ1n0T9Bt4PL5MHR ooqM7AFJLZPRXoutFL+PC 61kf96B0TrFcycBqp8GBR nLAK1gSA0aE8s BYQcYJvic3A4eJW6Z0Gza hDyfs4ae3hwOWMpEFpmB8 2udNBxl8E0MHHykUP7NYN yeUjzMkDwgL84 Oyc+EUWzhXjwb4PmFasyp 0lyb5scoPb5QxrnIVFipy RmyIusPXP3z5CmMy4pEES isGG7mMU6cF6e QzYxRrJ5PJxqB401HvRxm ZGkCaibX44tP5XrqYT+PH AdBnz9KIFfsMxpGO0mE1Y hZGRpbmctbGVm fIjkKQ7rDSNmcvpsWPTmg L8rJXKuN3o4GrUlWqS4TY stK7EzVAFdthseUz66uL0 zVuUqViV5EBzp C4XcaqR7WBVrsQUqMLpvN DE5I41hu5F7GUMpOMLkHW W6nKW3oO8koVvdldomhVV mdDsgdmVydGlj CIamDVrnR722KMZdxWyzS kNvZGluZyBEYXRlOiAgMD UvMTYvMjAyNDwvdGQ+PHR tLXI9mMgrPLSb lYPlQOxjEq1aoZtmkGxqL O4rCXFusfiiRQRlzU2jLB AbyPSkqEliWZ2jWRKabrg us933SgSoDTB4 XNYvrKHaU0TyjE6wBwUcC QLvJJGqQ0HojCGmINnxA4 58VVhhCnA8BENkhwYyY1M sLWFsaWduOiB0 e4G2Gj1Ot3NejrchV7Gli GSoFlWkBobpZFg1Q3FaWl wvdHI+WB95ZXGeGW60UIf 5VOK8rArsXXma OQQzA5BeuI0xXmKxVPXjG GRkOyc+PHRhYmxlIHdpZH RoPScxMDAlJyBzdHlsZT0 vIx9nCBDvHCUk aYbxzSJlNvJoa0esOHNnK NadFJ9fdIufT7CuvTF1VQ Ios7q5Nn55J14kC1JblRD +XHNrqPY9kXS9 xM2sOnQsBdQ5CIviV455U xHryXWjMajyd7yvd4keoA y9IlM6HYMxgjEyhVwiPWD 3j0YbIw12G93h IHdpZHRoPSIxNSUiIHZhb Mvrxv9ebP9cNr2+PGNvbC P0tTL0dW2yObQnKdM7BJs wJ751UwIimTFl Yixoa6enz2qdtQc1OdLmU TDoyeLttWyrPPR4s8KdYs 07M8XxvNjxo7EcVdf0dl7 9dJJex8C1zUG1 F7XzNIWgporvkCRwnJpsM X4yHVKudljaAXUrpX9aCU EaF4c1MiXmKcF8JOjfT8X rlrB4JCDtyIIk ECShhZPTsT2lmikvy3mfk tffZpLhNSCoKZu6HBw6AB JvwMilKjOoPAT7CoF6JAB 6oORfeK8mmNmn cpwcvW1aJcx+LBI7yFPex VPEYI5qEtcutPT+PHRkIH N4nFnxWKupTHHjuZ5zDFH jA0i5PsPbWpJ9 WSmdJ7AwdeT3AMRgcKMyX SSsrPUOrX7yiiipf3vnkh arTrElJZJzFCd0XRs0KXQ saWduOiBsZWZ0 WuF5JUU2rNVbdN9dqSyci pfjfE1uYze+QmlydGggRG R7FHa3E3JvFps2THOcbDl wLZ4ncKCeONds Uo3grPvveKiwZQ3dRHEdm fpoa124BjMfb6mlYVWgaH DlWIpsSKE2P26wo2F9LDO iYYJfUBA7kEA4 oV1tsUnrifqawEZipPnvq iLlmWfcBQluBXjhT476QQ YrcFpeEtJbSVz9D5VhNfb 6NHQudGbvSK2a rHDfJWftVa8ecDijpVybJ L8hQKPhgdyuh211HdEtw1 cnNOSpxYJbGBjyZCG6P42 zy5V3RVFxGRVy HAK0xZD2jV3eyQkiyflgq GVmdDsgdmVydGljYWwtYW daS951JSXcpRbtDqYulOu 8O0FjNob7NIKm bDnpTB4llFLmUQopWi1xt VuwyKcqLP1aOFNcdntmi7 79YvHsb6juWEDrpJGtNTe uHSJ6B76eq5E0 HUXlWSDjCDD7rUQ4zX0el GlnbjogbGVmdDsgdmVydG vkQKdeGVkuD768STRbpFt nPlBhdGllbnQg HVpdJZo7P6GzSrrvoAT+P G69UFUvSM60lOVttQGdt7 iryHo0QeBmYLShDJX5tRn jWAkzn7BhUNSz P00xyOAqw9B8XIGttItjv JXuRlBqtNZ8uD6kJZoubk cno9qokgspXlmex1xqdl7 7qV69A80nAZpk ZHRoPSIzMCUiIHZhbGlnb r8shV8dYj9+ACQbgGQ4xB X6lL3cGOOeUtJ5IVfvH41 9InRvcCIvPjxj b3eqi7agsTy1EoF1XKXdf pRacCeoYRS1t9CsJx60P0 9sIHdpZHRoPSIyMCUiIHZ xyOtcfn4qnR1a Ii8+XFRxdAK5iBZ3fO9oN oIsIsV7RXojR650BwLmmB VjMghmW75bH7XieFP+PHR tFha9YDZqwLfy YF8dcOHnNWgzAx2cNBR6G kEbIoAiZQirD2XzMBVzgb mageopdHT6FXVoJGQxiY3 7Jn0mcEroZQPe xAYTkU5nedmmh6bpfkvvP xOsGWKtMZk3VRl1QQKmuC omGcGvJAG5QpK7BTW1cKZ uiE6whSruantq zA0gR8NlMAWbmffiSz53u A5oWcLfExA3MZuvJpk+SE KFQM2RWDFTLZFQLHYyWAw vdGQ+PHRkIHN0 nMvfXGhxPEQsgK4xYYMaZ 4z1RaVdPyD6SZjaI4TjZB DtcxcbPy90yE8lBlUxZuN 6SHacN8CghsW5 HWWzpLImEFluNOS2T87hf 3M7XCXqHHOxCXY9aKX3yV 1hbGlnbjogbGVmdDsgdmV ydGljYWwtYWxp M099KPPjnMswTcBtZlCbZ vO9GhF2K1BpOwl5OCRxkH jaTG9lrSBoLPtbUw6ouBi tdMbfVW8xFDTy upbgBYXagV1vEJNkhABkz ZihIK4uXTUfzpccs547Xk CjMTD8LVKbnCVkA2ZueL4 yOiAjMDAwMDAw E4ZyxHGxYDywW474SWdtR tV3HWSlcgFqR5OwMPTfyL czJiS2o3Y3Rw66DFSQHQC yczwvdGQ+PHRk KNE6bBpaCFtuQZLweK0tM CZcI6p9CwSnYcS8SNgaR1 UcKBTmqiatGv00rE9pPqR sKaC1BEmwX3Lq jkE1OTBroOYzDAxzBWG9L 50qs4C6VBCdRZIeHLL5vJ F2oP3qmWujfztllJHpmZg gdmVydGljYWwt OVzmQ399EEHazTqaVqGZW UFMRTwvdGQ+IGOjKEH9oM swFTunGWScpU3gYCCqM4d 2WeCcQpG4AAen Q4LuNZSojwomLq95aN6cF zLfQmD5HCjsV0QvmrS1FX OhcWDkXNphDRZ3P18rc7J 1SSGyGMUePBA6 zSZ5nF3gdWppfvvnaLFnc DsgdmVydGljYWwtYWxpZ2 05TGVnjDtoSmKoGSOiJH2 jeTwvdGQ+PC90 fm01U7UfVudjJax8DAFmG UL4uAN3nA4tIBEzWRfat3 Y8eGM3Y9XgylThqw5pr7e xMZWmHNcbM89r mMLap1F4MEFwcZK8UEMqx QrbYhPijL49Szp+PGNvbG wbd8WcNmtct0kxm5szrPj 9IjMwJSIgdmFs mShjMQH0v4OlSq67O65yS HdpZHRoPSIzMCUiIHZhbG aqif8keJ3uKd7+PGNvbCB 5uDN5cT8zPsJf ZyD7HOisR283EuVklGYbS jlqe4tjx2wvoGu4EjIfQY YwwbKprEbzXMU2z2KoLy4 3N2PzlKmgc4Dv Bxs9el36pRXbg9I9oAK3H 3BhZGRpbmctbGVmdDogMC 8sEOBnajlzDENzrO2eSHR eF6q3QkTtQgF0 EPgrN6HajrM0CYIswHHhV YMflLQPxY9mljjso9qsht ysUeLtORBeOLd4OWc6UJH saWduOiBsZWZ0 HgH1WNX2mZJvrP2fsCzee bvggM6vKxt+HWv2i1fcjY DmRY7zpHJ0ZC71UD31aFH ic4I2gLP9F2Jn MMLivtsiokuewRL5EXRzE XQeoW17Fa6lxKxfWk3zXY KzTAG5BTOmmBKkB6QqfA2 yOiAjMDAwMDAw Y5BovJIwTGdrQ314RWdyV iQ2LIIriyCkK8CeFIHduI faHyT1e8K8Jt8BPU33LF1 9VI81ySBwc3Q9 dDV7K8LqZAVwlkmgnhnyk ZH5TDXmLHLupB38Kv8raV nuUa5yDKRzQEY5WSPwkVS pZ7DfrJ9tSmAq XRHwQLEeW9PdyKUfJYveW 189UWwgYlY2KIWwfcVoO4 SrVNAhyTmxVpD8d5P5Bv7 IIg28GR53EY16 zZPle4W9pRQ8R7WvQFLjv zdaxjgxfLQ0HRBgQXXgcS 60Uz0lsSwxLc3tHAAqODK 6XYZgjABwB4Sh nI0cEwRfQGTrBZOuP0Sow TApRSneY619JBbsOoV2WX BmphSpL4ZnIKRplTokFxE 2i5E5Kb0XYFoi avi8X7BdWbitbKM+PC90Y HIkPT97iFJklHOdu3dpzB h4NhZvVPYcJMA2yDbxEFe xa3DhCPTgS01j bGF (more content not included)... [facility] Coding Summary HTMLBase 64 LnkirvytHJp7aNc+PGhlY WQ+PG4KKOJfF38evZUnxH 1wQ9JRKXpGYiluJSOZVUw NHrNjruLsXI3psFLlFFTt IC8+OY8eIWAfVjvpoNMjc 7E6dQM9G87cin8dOGejpI A7BBQpAnYxqpahk2nybWl 6IDcuNmluOyBt TUXstU69QSR0aJ12Tp00k VKugVZls1goxSa4PyUpPV IpMRT5xUbrKJivl1DuPNQ vS36qcZGzx9I2 JFZflDrhlMTlMuHqrFQ4s L2zTLsvqirzk8elsaihQj z5kn05eJGit3D8jNT7O2F hqsW6CCLbcLXj WejaoLHVuS1rdinmb9cmj apcMqHdRDEjDRz1FTg6VP ExnNmkSwOvJP45UKZ1LNF eywNoS2XfMOUj sGfbXrQ2e8R9Ms8MO0DWN fnwH6BURLXTXVdbiQL+PC 01ez57A0LaLppoMfh3MXX eRNF7mDS6eD7c AKPxCChnu6K6yFZ2K5Dnj dRsik9qn9ilNZUiTNkkL9 6wkOUcz1B0TNSqqWW1DWG xzAguLcXetA69 Oyc+AFZfsHsyn1PuUutlm 0opd7zdiBw3NpukSMGyhf AxpErvYAD1l0TxRh2uRZU nnZH7bGF6mO0i NcLwNjH2DLcvY307FgWln VPhKaltV12aR5AmjHA+PH DbEjf8ROPyeLdoWN9zV0I hZGRpbmctbGVm tRyfHA8rTKZmbkjbZMQgn P3pAEYbH6u3RuVzKjH3OT ftO0XvIHYvahltBv59eY5 oPbTbVkE1OXxb M0AxhkG5NFEvjBDjLBtcL RI0E34ik6B7CRQsRVJlGW D2oXF7bJ0uwElksasxuFP mdDsgdmVydGlj EUldTRzxF799ZQZvhGxkN kNvZGluZyBEYXRlOiAgMD UvMTYvMjAyNDwvdGQ+PHR bAXA2iAaeVMEt tMCyZRvvIb2hcXfmvTypG B8bAFAfrcljWIDrsD6kGD DmuVQynJmdKO5uFLBovsz fk259XuWdGMU3 YPLpaNGaV5DzlL0rIbJxF MHkPAFbK0VkgCNbYJzkS7 46QIlpPvQ1SJIgpwRhG5A sLWFsaWduOiB0 x0Y8Ae3Sq1KhqlbrK5Srs JJnGaJnUdjvIHk1G4BhDv wvdHI+CH14XJVzAY37IPt 5JKH3rLbkCTjb ALGcS9XyaX6qRdVrKEHwV GRkOyc+PHRhYmxlIHdpZH RoPScxMDAlJyBzdHlsZT0 uDp6uCMLmUTXg kXwpbEIoKdHeh6luNRZmY PahER9dlGkpW5WulHF2JN Vsg4d1Ba13J72uK7IsoQQ +MLWmrTI3oOG8 qT5jCgAfXjS0EGmgE720Z yFqaVVsRjzvn5ysg5ajdY e6PpB3EFNrniEbuQlkLVL 3z0YcNm43S72y IHdpZHRoPSIxNSUiIHZhb Txjfe7frV0rBw3+PGNvbC K4kLZ3oG9lFeZnKvK7XUf vZ211AzLjgBVs Aclkd3gdt5ntvDp8EcGlG DWpgiCuzHdyIXZ9k2CeKu 70H9OtkUlre7EbBxs1ul8 9vCYph2U4bVW9 S2SyRMAcdivjjCEjmMvjI J6uGRDjldjyNXRymT5yLI OwK6t9XmGkBfL6TOzvZ1N yqkD1ZOCnnRXz ZUVioYTJpR5edbskc9rqb mfsIqFdNQJcBOh7GFj3QI QfkXyoYsRaWOY8HfE2QHX 0rYAloA5tvQfe bczvaA4mXca+VIB6nTAqw EZCZI1lRpwwrKB+PHRkIH A5dHsjGNeiWXSbqK0rUXR qN5q4GaXeLdD0 XYjgA4LgvmC5BJFzqDEdJ NFfzYWQxR8nkwglh0droq jkCmBoXLJdMVj7PFy3KVL saWduOiBsZWZ0 MoA9WGC4iEUvgS3ilIubx lwubF3yKkj+QmlydGggRG G2KEb7E8PqAue6YXSgfIa mAZ2xnPGyYYvx Xu1neGjjaDybYU1wPUKfb suue573WlTxg3xvSJBcnG ExRQajNDG0U44ib8S8JDE wMOAoJNA1xKV1 yJ6xfOeanzfypCZjiSrxa zNmyWtrZJcsELncL937CH RxmGffDwJuPBc1L2DrRuo 5MOZimQjmFL0o oGWtJRmxFm5xbPirsSxkB A4qNEDpatwey727AkYtp1 nnNBQnhUWiTFlqYLO6N36 qk2L6GZIgQUJu LWM4qNB8dU3wzHjhadjri GVmdDsgdmVydGljYWwtYW doI499XKRxqBauJzCvkAl 7H0DrYip8PKGu rShkWX6igWRvTNqiMm7hh VdljFiySK7tHETqbixgn9 31IdGmj9fsYGKdpKMpXHt pWEW8G98aa3U3 YVVjDSQiEAF1sIJ7rJ3za GlnbjogbGVmdDsgdmVydG sbDYokIUrfV552RUXemBy nPlBhdGllbnQg XJxyTPw9F6NcKdctvAO+P Z54RKZcQN73hAJcbQKhv8 qaiMm3HhUsNQWzOJK8oAe hMBpji1LiMDZv Y24tsTMhp6Z4DEQseUfbd GSkIiCpgJL6bQ7dGIwsps nbp9dfcvsoHikdi7pxxc8 3fX30O00yMVkx ZHRoPSIzMCUiIHZhbGlnb m3gcG6jEc6+RRBxyUE6eX H2tJ3cIZJhPkU9EEerM25 9InRvcCIvPjxj u2slf0qfaBh5AeV3JZGdz rYhlRyeYUW7h1MdCl06K8 9sIHdpZHRoPSIyMCUiIHZ qpNwnht9auA0n Ii8+IXSddLY4aXJ6jD8iR dPgLsV8JDttU128RrSwvA HvEgwaJ01mZ8RhiWJ+PHR yAmu5UUTjhMhp OZ6bpDFoLFwtHc3mAJN0Y dQiViDvRWlgV5UxXQEhos cgjtzeiEM2AWMuYWYjoE3 8Cr7brHciSHCe mMJFoX6hocbvp1krrexxP oZbGDOuUVr5MLr0CKPlxZ unXhYzOWT9EgV9EGG8qRS yhH1gtKwkhidz xR6zB5CpLAWiaepzNk42u L6pMpYwYjD7VNaiTeh+SE ORJN3ZZAWFTVDBTOJnYQr vdGQ+PHRkIHN0 cBysAVxoTEBtqD4lMFPoD 6q9FcVfRqU5KJmhM0MpDP GiiiwcHl31rC8pJzKvWyV 1JWzpJ7TszwJ7 HMXphCRmNYgsYHT7E13us 0F2XWQdVQCuFCB6yGX0sY 1hbGlnbjogbGVmdDsgdmV ydGljYWwtYWxp J238JPAutNlfKbJgSjZgM nX6MmM2W4CaHle2XTPakT yeEB3nyQKgVQpuPw7jhNp orTkuON5qLKPn gkrmQPTibW9cKASgzXEsq RzgWV6rXMBrufnix099Ll HfTZW2FXTxmVMmQ8UlvS5 yOiAjMDAwMDAw F4KelYTcXZtlE508DMjfQ iY7LKKfbqMzZ5VmVDFseG xoNwD2a3G9Kt52XGKXYMU yczwvdGQ+PHRk OEG4xZafYBmrDHIrjB5zC HPyD9m7ZdHuVsQ9LMgmM9 PkLUPjztahTy57oQ3aPrN mAuC3UByvZ2Dk eqG6UQKjqAQuRPknTWA7U 21vr1M1RKVgGDGnOPI3wN N2oK4rzQmvewcwiNLewCu gdmVydGljYWwt TGizL886GEQylPmoPfOXP UFMRTwvdGQ+AVHvSXU7rW mvTXnpFDNghG4cQWHrZ4d 1BoJjSjT4CDel J0HcLCXxkuqsQy97cA2pX aTxIwQ1HUhhB7MncxE5NL OenNDgXResGDX7L10kt6X 4FFOdRBUrHBO3 yOG0yH7ecTxfwokhzVOoz DsgdmVydGljYWwtYWxpZ2 52HIRjbZvwCeSvDQYlKA5 jeTwvdGQ+PC90 dk71N7EuDvvuQma1OYYmI GZ9fOV5oK4aHGPaCOsot4 E4sVI5G8CyxmGkdh2vo6j xTQWzHGcaB97n fXLni6X9XLPpvHL7XAIwz PciEaBiuG81Nbu+PGNvbG did4HpZtohu8ooi7lzpGb 9IjMwJSIgdmFs gEhaHUI0j7TpBm84V20rG HdpZHRoPSIzMCUiIHZhbG mhnh8mwN7iHe7+PGNvbCB 8aVK6qV5zBiZo MkS3PWudV537OcQhqLSyD srwn1yqr6kfiVs3CjJbAL CjfwDqxLocXXE0e1AkTb4 5V9DtcRgbd7Kn Ruh2sk16zMIya2T7eDX2S 3BhZGRpbmctbGVmdDogMC 5aXFKivmgbSHYiyD7aFTY pU2o7XnYlPmZ1 OHcaT5FgcsG5YBUmdKRyQ IHycHNCmU0boxflj5wbxe fdUkFnDIOyKPk8WUb7RSN saWduOiBsZWZ0 WuL5YVJ3eHDdkC7imOruw fsfuH4oJnr+BYz6h9bmlS XzOO7gyMI2XN79RD40pWS kq6A9lYJ9I2Uw HCXpxtsqqblkeXC8EHYkN NFoiV82Mm1sbBwtMp8dXV LsABI3GGLtlFAsC2GanZ6 yOiAjMDAwMDAw B7UvoFXpXNbvU312ZOvjY iX5AKIttxUjI9UkDNDkbT dwSxD2m8F7Az8LJE26XK0 7SL70yVTpq5O2 aOD7D8EfOEHcrzniwwbke CK1MKXhJQQeqA64Hp6soJ kjHc0rBMFyLRJ6BWMhhQP tY6LeuF0yCgLn HPOvTFFdD3XsiYPcZMcvL 024IZowPbS6BDGwnlUwC3 ZjEJQzwLesHcS5m5D0Ru9 VEn77ZN72ZZ38 xGJfp9X9fEZ5Z8MtCDBuw zgqviwapQB4EEAnFXYwhP 14Ms4sxDguZa1jWAAcMKE 9HKBcnSNkM5Rj oF5yMfTwHPVdVQSyS9Xnb RIpKKnzJ825UOmjJjH6ZH KdfwSpC9QoEJNyuBgzEnI 7b7C7Ho8UJMbg apf7U8JkYykwhHA+PC90Y ZIlFU65yUWkjYUzr3rlrN e1RmBbTVOyFIU6iHdoSJt gm8RoUSLkJ15y bGF (more content not included)... [facility] Coding Queryon 07-26-2023 Coding Query The diagnosis of S/P foot surgery is an accessory diagnosis and is not covered by Medicaid. Can you please review and add additional diagnosis information - if there isn't anything definitive you can add the patient's signs and symptoms to the ED note. Thanks. Thao Santana MD [Transcribed on: 07/26/2023 14:52 EDT] [facility] Consent Formson 07-25-2023 Consent Forms [id number] [facility] ED Clinical Summaryon 2023 ED Clinical Summary [facility] - Emergency Department [address] [place] [address] ED Clinical Summary PERSON INFORMATION Name: CHINMAY KNIGHT Age: 48 Years Sex: FEMALE : 1975 MRN: Acct#: Visit Reason: Upper respiratory infection; Facial pain; Facial swelling; Cough; COUGH, HEADACHE, FACIAL SWELLING Arrival: 07/24/2023 21:29:22 Discharge: 07/25/2023 01:01:00 LOS: 000 03:32 Check In: 07/24/2023 21:29:22 Checkout:07/25/2023 01:01:00 Address: [address] [facility] [address] PCP: Provider, None PROVIDER INFORMATION Provider Role Assigned Unassigned Baljit Cope [employer] Nurse 07/24/2023 21:33:10 Romeo Resendez DO ED Provider 07/24/2023 21:33:55 VITALS INFORMATION Vital Sign Triage Latest Temperature Tympanic Temperature Temporal Artery Pulse Rate 84 bpm 78 bpm O2 Sat 99 % 99 % Respiratory Rate 18 br/min 18 br/min Blood Pressure /89 mmHg /89 mmHg MEDICAL INFORMATION Medications Given: Medication Dose Route clindamycin 600 mg IV Piggyback Sodium Chloride 0.9% intravenous solution 1,000 mL 1000 mL Initial Volume 125 mL/hr IV Left Antecubital Fossa ketorolac 30 mg IV Push iohexol (Omnipaque 350 100 ml) 350 mg IV Push insulin regular 5 unit(s) IV Push Allergy Information: No known allergies PHYSICIAN DOCUMENTATION DISCHARGE INFORMATION: Discharge Disposition: Home Discharge Location: Home PATIENT EDUCATION INFORMATION Instructions: Sinus Infection, Adult, Lbvv-yh-Ipnz; Diabetes Mellitus and Nutrition, Adult; Hyperglycemia, Lsgg-oe-Wtos Follow-Up: With: Address: When: Romeo Addison [address] [place] [address] Business (1) In 2 days 07/27/2023 With: Address: When: [facility] [place] [facility] In 2 days 07/26/2023 Comments: home you have a sinus infection; warm compresses take the antibiotic ibuprofen for discomfort reduce your smoking; recheck: [facility], 48 hours, walk in 9 am-7 pm you have a physician in [place]. Continue with that physician, until you locate a physician around here. You may call DR ADDISON'S office, here in [facility], to see about continuing with him. watch your diet, as a diabetic you need to be careful about what you eat You are welcomed to return anytime, especially if fever, increased pain, vomiting [facility] BRIEN< ER PHYSICIAN< [facility] DIAGNOSIS: Facial swelling; Hyperglycemia; Sinusitis, acute Patient Understands: Yes - Patient/family/caregi marcello verbalizes understanding of instructions given Comment: Normal [facility] ED Patient Summaryon 024 ED Patient Summary [facility] - Emergency Department [address] [place] [address] PATIENT DISCHARGE INSTRUCTIONS Patient Information Name: CHINMAY KNIGHT Age: 48 Years Date of : 1975 Reason For Visit: Upper respiratory infection; Facial pain; Facial swelling; Cough; COUGH, HEADACHE, FACIAL SWELLING Arrival Time: 07/24/2023 21:29:22 Primary Care Physician: Provider, None Attending Physician: Romeo Resendez DO Comment: Visit Diagnosis: Diagnoses This Visit Cough ([id number]) Facial pain ([id number]) Facial swelling ([id number]) Facial swelling (R22.0) Hyperglycemia (R73.9) Sinusitis, acute (J01.90) Upper respiratory infection ([id number]) The Pharmacy at [facility] is open Friday through Friday from 9A to 6P and Friday and Friday from 9A to 5P Prescription Information: If you have been given a prescription for narcotics, seek immediate medical attention if you have any difficulty breathing or any sudden status changes such as confusion and sleepiness. If you or anyone you know is experiencing suicidal thoughts, mental health, alcohol and/or drug addiction problems; contact the [facility] 07/10 Crisis Hotline -Text 4HCCY to 074630. If you received any narcotics, sedation, or any other medication that causes drowsiness for the next 24 hours, unless otherwise directed: ? Do not drive a car. ? Do not operate machinery such as power tools, lawn mowers, drills, sewing machines, or stoves ? Avoid alcoholic beverages and drugs for allergies, nerves, or sleep ? Do not make important personal or business decisions or sign any legal documents With: Address: When: Romeo Addison [address] [place], [place] [id number] Business (1) In 2 days 07/27/2023 With: Address: When: [facility] In 2 days 07/26/2023 Comments: home you have a sinus infection; warm compresses take the antibiotic ibuprofen for discomfort reduce your smoking; recheck: [facility], 48 hours, walk in 9 am-7 pm you have a physician in [place]. Continue with that physician, until you locate a physician around here. You may call DR ADDISON'S office, here in [facility], to see about continuing with him. watch your diet, as a diabetic you need to be careful about what you eat You are welcomed to return anytime, especially if fever, increased pain, vomiting T H BRIEN< ER PHYSICIAN< [facility] Medication Information: The exam and treatment you received today in the [facility] Emergency Department were for an urgent problem and are not intended as complete care. It is important for you to follow up with a doctor, nurse practitioner, or physician?s medical assistant ob gyn for ongoing care. If your symptoms become worse or you do not improve as expected and you are unable to reach your usual health care provider, you should return to the Emergency Department, we are available 24 hours a day. For those patients who have received Radiology results, the interpretation of your X-ray as given to you by our Emergency Department physician is only a preliminary report. The Radiologist will review your films and if there is a change in the diagnosis you will be notified by phone. Please make sure you have provided a working phone number so we can reach you if necessary. In the event that you had a lab culture while you were a patient in the Emergency Department, you will be notified by phone if there is a need to change your antibiotic. Please make sure you have provided a working phone number so we can reach you if necessary. [facility] Emergency Department has provided you with a complete list of medications post discharge. 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 Any specific questions regarding your chronic medications and dosages should be discussed with your primary care physician(s) and/or pharmacist. New Medications [id number], [address], [place] [id number], [phone] clindamycin (clindamycin 300 mg oral capsule) 1 cap(s) Oral (given by mouth) 2 times a day (scheduled) for 6 Days. Refills: 0. Medications to Continue That Have Not Changed Other Medications apixaban (Eliquis 5 mg oral tablet) 1 tab(s) Oral (given by mouth) 2 times a day (scheduled). aspirin (Aspirin Low Dose 81 mg oral delayed release tablet) bumetanide (bumetanide 0.5 mg oral tablet) empagliflozin (Jardiance 10 mg oral tablet) isosorbide mononitrate (isosorbide mononitrate 30 mg oral tablet, extended release) metoprolol (Metoprolol Succinate ER 100 mg oral tablet, extended release) omeprazole (omeprazole 40 mg oral delayed release capsule) pregabalin (pregabalin 100 mg oral capsule) rosuvastatin (rosuvastatin 10 mg oral tablet) spironolactone (s (more content not included)... Normal [facility] HgbA1c Standardon 07-25-2023 .Hb 15.6 Invalid Interpretation Code [facility] Comment on above: Performed By: #### 1 [id number], [id number], 1206440358, 2922929, 64062565, 4332020171, [id number] ####[facility] (DEFAULT)[address] [place] [address] .Hgb A1c 1.18 g/dL Invalid Interpretation Code [facility] Comment on above: Performed By: #### 1 [id number], [id number], 8515426933, 3511644, 99285016, 7656101975, [id number] ####[facility] (DEFAULT)[address] [place] [address] Glucose [Mass/Vol] 212 mg/dL Invalid Interpretation Code [facility] Comment on above: Performed By: #### 1 [id number], [id number], 8010085559, 6431853, 30952283, 9498117651, 8973738294 ####[facility] (DEFAULT)[address] [place] [address] HbA1c (Bld) [Mass fraction] 9.0 % High 4.6-6.2 [facility] Comment on above: Performed By: #### 1 [id number], 8035466655, 3033748877, 1501662, 11220977, 4583343051, 8200057604 ####[facility] (DEFAULT)[address] [place] [address] POCT Glucose Levelon 024 Glucose [Mass/Vol] 267 mg/dL High 74-118 [facility] Comment on above: Result Comment: OPR_ ID=[email or web address],TGC FLAG = False,Meter:[id number] Pit Slagman:Alonso Smiley Performed By: #### 4 [id number] ####[facility] (DEFAULT)[address] [place] [address] .Auto Diff 07-24-2023 Auto [place] % 8 % Normal -12 [facility] Comment on above: Performed By: #### 1 [id number], 3564769076, 1445987813, 2244289, 76873298, 5816366380, 6031372811 #### [facility] (DEFAULT) [address] [place] [address] Baso Abs# 0.1 x10 Normal 0.0-0.2 [facility] Comment on above: Performed By: #### 1 [id number], 1994674593, 1523510333, 3013286, 09392755, 1549624582, 4917838548 #### [facility] (DEFAULT) [address] [place] [address] Basophils/100 WBC (Bld) 0.8 % Normal 0.2-2.0 [facility] Comment on above: Performed By: #### 1 [id number], 4780622155, 8909982338, 9447976, 84090944, 3421703912, 4479347369 #### [facility] (DEFAULT) [address] [place] [address] Eos Abs# 0.3 x10 Normal 0.0-0.4 [facility] Comment on above: Performed By: #### 1 [id number], 2789427904, 5834425068, 1885072, 65244158, 3210929551, 8597700413 #### [facility] (DEFAULT) [address] [place] [address] Eosinophils/100 WBC (Bld) 2.3 % Normal 0.9-4.0 [facility] Comment on above: Performed By: #### 1 [id number], 7872676173, 9713976539, 0948415, 90716882, 1296388777, 7416417422 #### [facility] (DEFAULT) [address] [place] [address]291 Lymph Abs# 2.6 x10 Normal 1.3-2.9 [facility] Comment on above: Performed By: #### 1 634783752, 7248099378, 6841343539, 3396790, 74345864, 7892347127, 9073521825 #### [facility] (DEFAULT) [address] [place] [address]76 Lymphocytes/100 WBC (Bld) 18 % Normal 14-48 [facility] Comment on above: Performed By: #### 1 [id number], 0752465053, 7968453144, 0682997, 81092009, 4433089597, 6238274186 #### [facility] (DEFAULT) [address] [place] [address] [place] Abs# 1.1 x10 High 0.0-0.8 [facility] Comment on above: Performed By: #### 1 [id number], 0454713585, 0672756115, 4309341, 17650488, 9673872905, 9363879391 #### [facility] (DEFAULT) [address] [place], [place] [address] Neut Abs# 10.1 x10 High 1.5-9.2 [facility] Comment on above: Performed By: #### 1 029639114, 5427767688, 6130781863, 0996414, 05864976, 2087020869, 9951338358 #### [facility] (DEFAULT) [address] [place], [place] [address] Neutrophils/100 WBC (Bld) 71 % Normal 44-88 [facility] Comment on above: Performed By: #### 1 909092300, 8284518390, 3696611327, 0280365, 76677707, 1282738955, 8838528707 #### [facility] (DEFAULT) [address] [place], [place] [address] CBC w/ Auto Diffon 4 Erythrocyte distribution width (RBC) [Ratio] 14.2 % Normal 11.5-15.0 [facility] Comment on above: Performed By: #### 1 619798925, 3959318558, 9433355790, 6114321, 81359857, 6173218292, 7708992212 #### [facility] (DEFAULT) [address] [place], [place] [address] Hematocrit (Bld) [Volume fraction] 45.4 % High 33.7-40.4 [facility] Comment on above: Performed By: #### 1 [id number], 3751710139, 4749186995, 7402053, 83985875, 7736162495, 1041526188 #### [facility] (DEFAULT) [address] [place] [address]88 Hemoglobin (Bld) [Mass/Vol] 15.1 g/dL Normal 11.3-15.9 [facility] Comment on above: Performed By: #### 1 353458041, 7811474028, 0181490985, 9215225, 46879817, 0545169456, 2465159552 #### [facility] (DEFAULT) [address] [place] [address] Man Diff? Auto Invalid Interpretation Code [facility] Comment on above: Performed By: #### 1 407543419, 6527664133, 6168034540, 5605538, 41254564, 3930136872, 4445699192 #### [facility] (DEFAULT) [address] [place] [address] MCH (RBC) [Entitic mass] 30 pg Normal 24-34 [facility] Comment on above: Performed By: #### 1 433773982, 0992055036, 7190784583, 0953898, 11561248, 5751396775, 9870281928 #### [facility] (DEFAULT) [address] [place] [address] MCHC (RBC) [Mass/Vol] 33 g/dL Normal 26-[address] [facility] Comment on above: Performed By: #### 1 179105861, 3299310123, 8075621069, 1347781, 22687654, 2463023235, 1283921584 #### [facility] (DEFAULT) [address] [place] [address] 13940 MCV (RBC) [Entitic vol] 92 fL Normal 81-100 [facility] Comment on above: Performed By: #### 1 077710016, 1350180594, 6806628736, 5911198, 95492378, 1999288722, 8741461903 #### [facility] (DEFAULT) [address] [place] [address] 25982 Platelet 275 x10 Normal 138-427 [facility] Comment on above: Performed By: #### 1 119843122, 2447117710, 6348138313, 2245971, 51534156, 3563266175, 2573476859 #### [facility] (DEFAULT) [address] [place] [address] Platelet mean volume (Bld) [Entitic vol] 9.0 fL Normal 6.3-10.2 [facility] Comment on above: Performed By: #### 1 060650211, 0688486619, 5926250894, 5340847, 08291649, 3614912429, 9121919291 #### [facility] (DEFAULT) [address] [place] [address] RBC 4.93 x10 Normal 3.70-5.30 [facility] Comment on above: Performed By: #### 1 034324457, 5988197369, 0416914238, 2581325, 24046226, 0933156754, 1988060346 #### [facility] (DEFAULT) [address] [place] [address] WBC 14.3 x10 High 3.5-10.5 [facility] Comment on above: Performed By: #### 1 390437489, 6621041974, 1841541691, 5270843, 30941482, 1225393284, 8922222418 #### [facility] (DEFAULT) [address] [place] [address] [facility] Standardon 07-24-2023 eGFR Non AA 48 mL/min/1.73m2 Invalid Interpretation Code [facility] Comment on above: Performed By: #### 1 468178963, 2227175614, 9848985047, 7151188, 29594090, 7384569454, 1368904465 ####[facility] (DEFAULT)[address] [place] [address] 45053 eGFR AA 58 mL/min/1.73m2 Invalid Interpretation Code [facility] Comment on above: Performed By: #### 1 794198642, 8051618055, 7083733199, 2256683, 44449157, 1949378446, 9686791199 ####[facility] (DEFAULT)[address] [place] [address] Albumin [Mass/Vol] 4.4 g/dL Normal 3.5-5.0 [facility] Comment on above: Performed By: #### 1 418075068, 1640560694, 3720716594, 8530304, 56745212, 1085604817, 9039541666 ####[facility] (DEFAULT)[address] [place] [address] 64458 Albumin/Globulin [Mass ratio] 0.9 {ratio} Low 1.4-2.6 [facility] Comment on above: Performed By: #### 1 044304279, 8644677741, 6894485729, 1834051, 32543554, 5182542696, 3499531262 ####[facility] (DEFAULT)[address] [place] [address] Alk Phos 107 IU/L High 32-91 [facility] Comment on above: Performed By: #### 1 673116977, 8233339483, 1339147759, 6828631, 24144299, 5356343220, 6264404897 ####[facility] (DEFAULT)[address] [place] [address] ALT [Catalytic activity/Vol] 16.0 U/L Normal 14.0-54.0 [facility] Comment on above: Performed By: #### 1 755521092, 2503701289, 8741807447, 2428912, 37278648, 5001253128, 2103745513 ####[facility] (DEFAULT)[address] [place] [address] Anion gap [Moles/Vol] 12.8 mmol/L Normal 5.0-19.0 [facility] Comment on above: Performed By: #### 1 992113810, 7232036051, 9656823417, 5630962, 33967127, 6220709369, 1975105017 ####[facility] (DEFAULT)[address] [place] [address] 08582 AST [Catalytic activity/Vol] 17 U/L Normal 15-41 [facility] Comment on above: Performed By: #### 1 081241207, 2548813622, 1683894416, 7317579, 94787493, 8698450039, 8135376495 ####[facility] (DEFAULT)[address] [place] [address] Bili Total 0.3 mg/dL Normal 0.3-1.2 [facility] Comment on above: Performed By: #### 1 651826392, 9782784584, 2917952619, 3656588, 66750604, 1055235985, 4455095423 ####[facility] (DEFAULT)[address] [place] [address] 84768 Calcium [Mass/Vol] 9.5 mg/dL Normal 8.9-10.3 [facility] Comment on above: Performed By: #### 1 459185158, 3003745285, 8949822327, 0373375, 09575603, 6217234019, 7304879716 ####[facility] (DEFAULT)[address] [place] [address]5039 Chloride [Moles/Vol] 102 mmol/L Normal 101-111 [facility] Comment on above: Performed By: #### 1 094287935, 7434877811, 3154080033, 4951124, 13302331, 2554752950, 2119356832 ####[facility] (DEFAULT)[address] [place] [address] 74538 CO2 [Moles/Vol] 27 mmol/L Normal 21-32 [facility] Comment on above: Performed By: #### 1 599743984, 8150060915, 5779281105, 9084384, 55388026, 3955419217, 4681864267 ####[facility] (DEFAULT)[address] [place] [address]497 Creatinine [Mass/Vol] 1.19 mg/dL Normal 0.60-1.[address] [facility] Comment on above: Performed By: #### 1 449517261, 1254264035, 7327262615, 2001364, 62087160, 8433409819, 1224276566 ####[facility] (DEFAULT)[address] [place] [address] 25216 Globulin (S) [Mass/Vol] 4.6 g/dL High 1.5-4.3 [facility] Comment on above: Performed By: #### 1 270404373, 7331500844, 3652434181, 1872342, 81477590, 5338660965, 1352970988 ####[facility] (DEFAULT)[address] [place] [address] 61716 Glucose [Mass/Vol] 301.0 mg/dL High 74.0-118.0 [facility] Comment on above: Performed By: #### 1 313735814, 5222517957, 5815258618, 4481241, 51450821, 5982331639, 6375998072 ####[facility] (DEFAULT)[address] [place] [address] 31815 Osmolality 289 mOsm/L Invalid Interpretation Code [facility] Comment on above: Performed By: #### 1 503640059, 3492492132, 0185321937, 6684043, 31773793, 7980530037, 1155323227 ####[facility] (DEFAULT)[address] [place] [address] 46504 Potassium [Moles/Vol] 3.8 mmol/L Normal 3.6-5.[address] [facility] Comment on above: Performed By: #### 1 908751695, 7707068944, 3055234849, 7237499, 19946570, 1545894773, 8799540901 ####[facility] (DEFAULT)[address] [place] [address] 62221 Protein [Mass/Vol] 9.0 g/dL High 6.5-8.1 [facility] Comment on above: Performed By: #### 1 470637492, 6478308716, 7962459088, 6293660, 40777782, 9206151555, 0519576279 ####[facility] (DEFAULT)[address] [place] [address] 95209 Sodium [Moles/Vol] 138.0 mmol/L Normal 136.0-144.[address] [facility] Comment on above: Performed By: #### 1 062736631, 3629316499, 3639202538, 1995140, 68373014, 1038715606, 6324614221 ####[facility] (DEFAULT)[address] [place] [address] Urea nitrogen [Mass/Vol] 19 mg/dL Normal 8-26 [facility] Comment on above: Performed By: #### 1 742904529, 6962003945, 3250464624, 4338540, 76941097, 5768580722, 0803971772 ####[facility] (DEFAULT)[address] [place] [address] Urea nitrogen/Creatinine [Mass ratio] 15.9 mg/mg Normal 4.6-16.2 [facility] Comment on above: Performed By: #### 1 756144757, 2827789129, 4348253114, 3537795, 43988563, 4799661940, 2427896916 ####[facility] (DEFAULT)[address] [place] [address] CT Maxillofacial w/ Contrast on 07-24-2023 CT Maxillofacial w/ Contrast EXAMINATION: CT Maxillofacial w/ Contrast HISTORY: swelling right face COMPARISON: None. TECHNIQUE: Axial CT scans of the maxillofacial structures were obtained after IV administration of contrast. MPR images were obtained. Dose reduction techniques were achieved by using automated exposure control and/or adjustment of mA and/or kV according to patient size and/or use of iterative reconstruction technique. FINDINGS: The visualized intracranial contents appear normal. Intraorbital contents appear normal. Opacification of the frontal recesses and near-complete opacification of the ethmoidal air cells bilaterally. An air-fluid level in the right maxillary sinus. Partial opacification of the left maxilla sinus with an air-fluid level. The computer methods analyst spaces, parotid glands and parapharyngeal spaces appear normal. The nasopharynx, oropharynx and visualized hypopharynx show no abnormal mass or mucosal thickening. A 0.7 x 0.9 cm benign lipoma in the right longus colli muscle superiorly. The oral tongue appears normal. The visualized submandibular glands and the visualized floor of the mouth appear normal. No abnormal fluid collection to suggest an abscess. The patient is edentulous. Middle ear cavities and left mastoid air clear. Canal wall up right mastoidectomy is shown. IMPRESSION: Air-fluid levels in the maxillary sinuses. In a proper clinical presentation, this finding may represent acute sinusitis. Near complete opacification of the ethmoidal air cells bilaterally. The patient is edentulous. No evidence of an abscess. Final Dictated by: Remy Norwood MD Dictated DT/TM: 07/24/23 11:55 Signed (Electronic Signature): Remy Norwood MD 07/25/23 0:04 am Technologist: MONTSE Lion [facility] ED Note - Physicianon 2023 ED Note - Physician Patient: CHINMAY KNIGHT Age: 48 years Sex: FEMALE : 1975 Associated Diagnoses: Facial swelling; Hyperglycemia; Sinusitis, acute Author: Romeo Resendez DO Basic Information Time seen: Date & time 07/24/2023 22:12:00. History source: Patient. Arrival mode: Private vehicle, walking. History limitation: None. History of Present Illness The patient presents with This patient, states that she is a nondiabetic, but is on Jardiance, and has a history of some cardiac issues, presents to the emergency room left facial congestion and swelling she states it is just uncomfortable particularly on the right side of her face. She states she has not had this before, she has had all her teeth out she states she does not believe it is her teeth. She states that this has been present for about a week and slowly increase in her right face, she has been really congested, she has not seen her physician, who is in [place], she is now living in for [place] because she had a break-up with her . She denies any trauma. She states that she is not short of breath, she has had occasional cough, has been nonproductive to productive mostly a little bit of yellow. She denies any vomiting, diarrhea, urinary symptomatology, she denies generalized headaches, she denies any chest pain. On exam, she is pleasant alert, seen in room #7, gives her own history, appears uncomfortable, but not writhing around the bed, with fullness over the right maxillary sinus, there is no lesions inside the mouth, she is a dentulous, neck is supple, there is no anterior posterior supraclavicular nodes, there is no open sores around her face area, face is symmetric to move. Her pharynx is otherwise symmetric, no RPA PPA or AIR TRAFFIC CONTROLLER, tympanic membrane canal pinna and mastoids are normal, there are no anterior posterior supraclavicular nodes, her lungs are clear there is no expiratory wheeze or rales or rhonchi or paradoxical chest motion, heart rate and rhythm is regular PMI left chest, the abdomen is soft line discomfort, somewhat overweight, skin is warm and dry, and so I told her we would obtain a CT of the face to make sure this as to whether this is sinus or dental or some other cause, and we would also check her labs so forth. Her neurologic exam symmetric and intact, and her diabetes history was not apparent to her. She did not know why she was taken Jardiance. There is diabetes in the family.. Medical Decision Making Orders Launch Orders Laboratory: CMP Standard (Order): Blood, Stat collect, 07/24/2023 22:21 EDT, Lab Collect CBC w/ Auto Diff (Order): Blood, Stat collect, 07/24/2023 22:21 EDT, Lab Collect Pharmacy: clindamycin (Order): 600 mg, IV Piggyback, Acid Wash Operator ketorolac (Order): 30 mg, IV Push, Once Sodium Chloride 0.9% intravenous solution 1000 mL (Order): 125 mL/hr, IV Radiology: XR Chest 2 Views (Order): 07/24/2023 22:21 EDT Stat, cough, Allow Modification Per Radiologist, Transport Mode: Wheelchair CT Maxillofacial w/ Contrast (Order): 07/24/2023 22:23 EDT Stat, swelling right face, Allow Modification Per Radiologist, Transport Mode: Cart, No, Launch Orders Patient Care: Glucose POC (RE) (Order): 07/24/2023 23:38 EDT, Launch Orders Pharmacy: insulin regular (Order): 5 unit(s), IV Push, Once, Launch Orders Laboratory: A1c Standard (Order): Blood, Stat collect, 07/25/2023 0:07 EDT, Lab Collect. Results review: Interpretation Abnormal results 14.3 wbc. 301 glu, Recheck glucose of 276 after insulin. Chest X-Ray: No acute disease process, interpretation by Emergency Physician. Radiology results: CT demonstrates sinusitis, with soft tissue swelling over the right maxillary sinus which would be consistent with sinusitis.. Reexamination/ Reevaluation Vital signs Patient felt better after treatment, was discharged home with instructions, and she states she does not have a doctor I told her to make sure she follows up with her doctor in [place] until such time as she does develop relationship with a physician in this area. [place] is not that far away. Impression and Plan Diagnosis Facial swelling (SWA61-NZ R22.0, Discharge, Medical) Hyperglycemia (SZC36-LK R73.9, Discharge, Medical) Sinusitis, acute (YHT20-PS J01.90, Discharge, Medical) Plan Condition: Improved. Disposition: Discharged: time 07/25/2023 00:52:00. Prescriptions Patient was given the following educational materials: Hyperglycemia, Rubq-cf-Jwpd, Diabetes Mellitus and Nutrition, Adult, Diabetes Mellitus and Nutrition, Adult, Hyperglycemia, Anjs-ve-Jnyc, Sinus Infection, Adult, Isiv-cn-Vday. Follow up with: Romeo Addison In 2 days 07/27/2023; [facility] In 2 days 07/26/2023 home you have a sinus infection; warm compresses take the antibiotic ibuprofen for discomfort reduce your smoking; recheck: [facility], 48 hours, walk in 9 am-7 pm you have a physician in [place]. Continue with that physician, until you locate a physician around he (more content not included)... [facility] ED Note-Nursingon 07-24-2023 ED Note-Nursing private vehicle arrival from home with c/o cough with facial swelling and pain for one week. expiratory wheezing appreciated t/o. maintains ra saturation. rr even unlabored. eliquis rx r/t pmh that includes dvt to left arm. gown provided. afebrile. tolerating po. tolerated 20g via us guided to left ac. please see emar. pending imaging. oriented to call light. no distress. [facility] 07-24-2023 Tube Collected Yes Invalid Interpretation Code [facility] Comment on above: Performed By: #### 1 [id number], [id number], 7237806108, 4303299, 53298356, 0392867813, [id number] #### [facility] (DEFAULT) [address] [place] [address]3612 POCT Glucose Levelon 024 Glucose [Mass/Vol] 318 mg/dL High 74-118 [facility] Comment on above: Result Comment: OPR_ ID=IN_LIST,TGC FLAG = False,Meter:[id number] Pit Slagman:Alisa Morley Performed By: #### 4 [id number] #### [facility] (DEFAULT) [address] [place] [address] 61392 XR Chest 2 Viewson XR Chest 2 Views EXAM: XR Chest 2 Views HISTORY: Cough. COMPARISON: March 13, 2023. TECHNIQUE: PA and lateral views of the chest. FINDINGS: The lungs are clear of consolidations and no effusions are identified. The heart size is at the upper limits of normal and the osseous structures appear intact. IMPRESSION: 1. No acute pulmonary findings. 2. Borderline cardiomegaly. Final Dictated by: Lizandro Hinkle MD Dictated DT/TM: 07/24/23 11:32 Signed (Electronic Signature): Lizandro Hinkle MD 07/24/23 11:34 p Technologist: SUSAN Lion [facility] ED Clinical Summaryon 2023 ED Clinical Summary [facility] - Emergency Department [address] [place] [address] ED Clinical Summary PERSON INFORMATION Name: CHINMAY KNIHGT Age: 48 Years Sex: FEMALE : 1975 MRN: Acct#: Visit Reason: Foot pain; LT SWOLLEN AND BRUISED, PAINFUL Arrival: 07/21/2023 13:58:12 Discharge: 07/21/2023 15:30:00 LOS: 000 01:32 Check In: 07/21/2023 13:58:12 Checkout:07/21/2023 15:30:00 Address: [address] [facility] [id number] PCP: Provider, None PROVIDER INFORMATION Provider Role Assigned Unassigned Thao Santana MD ED Provider 07/21/2023 14:01:58 Chary Berry RN ED Nurse 07/21/2023 14:40:44 VITALS INFORMATION Vital Sign Triage Latest Temperature Tympanic Temperature Temporal Artery 37 DegC Pulse Rate 90 bpm 90 bpm O2 Sat 99 % 99 % Respiratory Rate 20 br/min 20 br/min Blood Pressure /106 mmHg /106 mmHg MEDICAL INFORMATION Medications Given: Allergy Information: No known allergies PHYSICIAN DOCUMENTATION DISCHARGE INFORMATION: Discharge Disposition: Home Discharge Location: Home PATIENT EDUCATION INFORMATION Instructions: Foot Sprain Follow-Up: With: Address: When: Provider, None [address] [place] [address] Within 3 to 5 days DIAGNOSIS: 1:S/P foot surgery Patient Understands: Yes - Patient/family/caregi marcello verbalizes understanding of instructions given Comment: Normal [facility] ED Patient Summaryon 024 ED Patient Summary [facility] - Emergency Department [address] [place] [id number] PATIENT DISCHARGE INSTRUCTIONS Patient Information Name: CHINMAY KNIGHT Age: 48 Years Date of : 1975 Reason For Visit: Foot pain; LT SWOLLEN AND BRUISED, PAINFUL Arrival Time: 07/21/2023 13:58:12 Primary Care Physician: Provider, None Attending Physician: Thao Santana MD Comment: Visit Diagnosis: Diagnoses This Visit Foot pain ([id number]) S/P foot surgery (Z98.890) The Pharmacy at [facility] is open Friday through Friday from 9A to 6P and Friday and Friday from 9A to 5P Prescription Information: If you have been given a prescription for narcotics, seek immediate medical attention if you have any difficulty breathing or any sudden status changes such as confusion and sleepiness. If you or anyone you know is experiencing suicidal thoughts, mental health, alcohol and/or drug addiction problems; contact the [facility] 07/10 Crisis Hotline -Text 1PZEO ra 220092. If you received any narcotics, sedation, or any other medication that causes drowsiness for the next 24 hours, unless otherwise directed: ? Do not drive a car. ? Do not operate machinery such as power tools, lawn mowers, drills, sewing machines, or stoves ? Avoid alcoholic beverages and drugs for allergies, nerves, or sleep ? Do not make important personal or business decisions or sign any legal documents With: Address: When: Provider, None [address] [place] [address] Within 3 to 5 days Medication Information: The exam and treatment you received today in the [facility] Emergency Department were for an urgent problem and are not intended as complete care. It is important for you to follow up with a doctor, nurse practitioner, or physician?s medical assistant ob gyn for ongoing care. If your symptoms become worse or you do not improve as expected and you are unable to reach your usual health care provider, you should return to the Emergency Department, we are available 24 hours a day. For those patients who have received Radiology results, the interpretation of your X-ray as given to you by our Emergency Department physician is only a preliminary report. The Radiologist will review your films and if there is a change in the diagnosis you will be notified by phone. Please make sure you have provided a working phone number so we can reach you if necessary. In the event that you had a lab culture while you were a patient in the Emergency Department, you will be notified by phone if there is a need to change your antibiotic. Please make sure you have provided a working phone number so we can reach you if necessary. [facility] Emergency Department has provided you with a complete list of medications post discharge. 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 Any specific questions regarding your chronic medications and dosages should be discussed with your primary care physician(s) and/or pharmacist. Additional medications on your home medication list not specifically addressed. Please contact the ordering physician if you have questions about these medications. apixaban (Eliquis 5 mg oral tablet) 1 tab(s) Oral (given by mouth) 2 times a day (scheduled). Visit Information Allergies: Substance Reaction Symptoms Type Comments No known allergies Drug Vital Signs: Vitals and Measurements this Visit (last charted value for your 07/21/2023 visit) Vital Signs This Visit Temperature Temporal Artery: 37 DegC Peripheral Pulse Rate: 90 bpm Respiratory Rate: 20 br/min Systolic Blood Pressure: 165 mmHg Diastolic Blood Pressure: 106 mmHg SpO2: 99 % Oxygen Therapy: Room air Measurements This Visit Height/Length Measured: 152.40 cm Weight Measured: 117.93 kg Weight Dosin.930 kg Body Mass Index: 50.78 kg/m2 Problems List: Problem Onset Comments No Problems found Patient Education Foot Sprain A foot sprain is an injury to one of the ligaments in the feet. Ligaments are strong tissues that connect bones to each other. The ligament can be stretched too much. In some cases, it may tear. A tear can be either partial or complete. The severity of the sprain depends on how much of the ligament was damaged or torn. What are the causes? This condition is usually caused by suddenly twisting or pivoting your foot. What increases the risk? You are more likely to develop this condition if: ? You play a sport, such as basketball or football. ? You exercise or play a sport without first warming up your muscles. ? You start a new workout or sport. ? You suddenly increase how long or hard you exercise or play a sport. ? You have injured your foot or ankle before. What are the signs or symptoms? Symptoms of this condition start soon after an (more content not included)... [facility] XR Foot Complete Lefton XR Foot Complete Left EXAM: XR Foot Complete Left HISTORY: trauam COMPARISON: None. TECHNIQUE: 3 views of the right foot. FINDINGS: Distal tibial and fibular fixation hardware is noted, appears grossly intact. No acute fracture or dislocation. Mild degenerative change of the first metatarsophalangeal joint. No radiodense foreign body, or appreciable soft tissue gas. IMPRESSION: No acute osseous abnormality. 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 Marcell Coates BNPon 07-15-2022 Natriuretic peptide B (Bld) [Mass/Vol] 57366.0 pg/mL Critically high <=900.0 [facility] Comment on above: Performed By: #### B APPLIANCE MECHANIC ####[facility] [address] [place] [address]Dr. Marcell Coates CARDIAC ISACC 3-6on 3 CK [Catalytic activity/Vol] 72 U/L Normal 26-192 [facility] Comment on above: Performed By: #### B MP #### [facility] [address] [place] [address] [address] Marcell HERNÁNDEZ.MB [Mass/Vol] 1.21 ng/mL Normal <=3.60 [facility] Comment on above: Performed By: #### B MP #### [facility] [address] [place] [address] [address] Marcell Coates HSTROP 47.6 pg/mL Normal 4.0-51.3 [facility] Comment on above: Result Comment: CUT- OFF POINTS HAVE BEEN ESTABLISHED BASED ON THE FOURTH UNIVERSAL DEFINITIONS OF MYOCARDIAL INFARCTION. THE UPPER REFERENCE LIMIT (URL) OF TROPONIN, DEFINED THE 99TH PERCENTILE OF cTnI DISTRIBUTION IN A REFERENCE POPULATION, HAS BEEN CONFIRMED THE DECISION THRESHOLD FOR NM DIAGNOSIS. Performed By: #### B MP #### [facility] [address] [place] [address] [address] Marcell Coates CARDIAC SIACC ADMITon 023 CK [Catalytic activity/Vol] 64 U/L Normal 26-192 [facility] Comment on above: Performed By: #### C LENO HILLMAN, LIPA, CMP ####[facility] [address] [place] [address]Dr. Marcell Coates CK.MB [Mass/Vol] 1.33 ng/mL Normal <=3.60 [facility] Comment on above: Performed By: #### C RAFY, LENO, LIPA, CMP ####[facility] [address] [place] [address]Dr. Marcell Coates HSTROP 47.5 pg/mL Normal 4.0-51.3 [facility] Comment on above: Result Comment: CUT- OFF POINTS HAVE BEEN ESTABLISHED BASED ON THE FOURTH UNIVERSAL DEFINITIONS OF MYOCARDIAL INFARCTION. THE UPPER REFERENCE LIMIT (URL) OF TROPONIN, DEFINED THE 99TH PERCENTILE OF cTnI DISTRIBUTION IN A REFERENCE POPULATION, HAS BEEN CONFIRMED THE DECISION THRESHOLD FOR NM DIAGNOSIS. Performed By: #### C ANDRESM, LENO, LIPA, CMP ####[facility] [address] [place] [address]Dr. Marcell Coates CHASITY 44 ng/mL Normal 9-82 [facility] Comment on above: Performed By: #### C LENO HILLMAN, LIPA, CMP ####[facility] [address] [place] [address]Dr. Marcell Coates CBC AUTO DIFFon 07-15-2022 BASO # 0.1 103/ul Normal 0.0-0.1 [facility] Comment on above: Performed By: #### B MP #### [facility] [address] [place] [address] Dr. Marcell Coates Basophils/100 WBC (Bld) 1.0 % Normal 0.2-2.0 [facility] Comment on above: Performed By: #### B MP #### [facility] [address] [place] [address] Dr. Marcell Coates EO # 0.4 103/ul Normal 0.0-0.7 [facility] Comment on above: Performed By: #### B MP #### [facility] [address] [place] [address] Dr. Marcell Coates Eosinophils/100 WBC (Bld) 3.0 % Normal 0.9-7.0 [facility] Comment on above: Performed By: #### B MP #### [facility] [address] [place] [address] Dr. Marcell Coates Erythrocyte distribution width (RBC) [Ratio] 14.2 % Normal 11.0-15.0 [facility] Comment on above: Performed By: #### B MP #### [facility] [address] [place] [address] Dr. Marcell Coates Hematocrit (Bld) [Volume fraction] 48.1 % Critically high 36.0-48.0 [facility] Comment on above: Performed By: #### B MP #### [facility] [address] [place] [address] Dr. Marcell Coates Hemoglobin (Bld) [Mass/Vol] 15.7 g/dL Normal 12.0-16.0 [facility] Comment on above: Performed By: #### B MP #### [facility] [address] [place] [address] Dr. Marcell Coates IG # 0.03 10e3/ul Normal 0.00-0.03 [facility] Comment on above: Performed By: #### B MP #### [facility] [address] [place] [address] Dr. Marcell Coates IG % 0.2 % Normal 0.0-0.5 [facility] Comment on above: Performed By: #### B MP #### [facility] [address] [place] [address] Dr. Marcell Coates LYMPH # 3.8 103/ul Normal 1.2-3.8 [facility] Comment on above: Performed By: #### B MP #### [facility] [address] [place] [address] Dr. Marcell Coates Lymphocytes/100 WBC (Bld) 30.5 % Normal 20.5-60.0 [facility] Comment on above: Performed By: #### B MP #### [facility] [address] [place] [address] Dr. Marcell Coates MANUAL DIFF REQ NO Normal [facility] Comment on above: Performed By: #### B MP #### [facility] [address] [place] [address] Dr. Marcell Coates MCH (RBC) [Entitic mass] 29.1 pg Normal 26.7-34.0 [facility] Comment on above: Performed By: #### B MP #### [facility] [address] [place] [address] Dr. Marcell Coates MCHC (RBC) [Mass/Vol] 32.6 g/dL Normal 29.9-35.2 [facility] Comment on above: Performed By: #### B MP #### [facility] [address] [place] [address] Dr. Marcell Coates MCV (RBC) [Entitic vol] 89.2 fL Normal 81.0-99.0 [facility] Comment on above: Performed By: #### B MP #### [facility] [address] [place] [address] Dr. Marcell Coates MONO # 0.9 103/ul Critically high 0.3-0.8 [facility] Comment on above: Performed By: #### B MP #### [facility] [address] [place] [address] Dr. Marcell Coates Monocytes/100 WBC (Bld) 6.9 % Normal 1.7-12.0 [facility] Comment on above: Performed By: #### B MP #### [facility] [address] [place] [address] Dr. Marcell Coates NEUT # 7.3 103/ul Critically high 1.4-6.5 [facility] Comment on above: Performed By: #### B MP #### [facility] [address] [place] [address] Dr. Marcell Coates Neutrophils/100 WBC (Bld) 58.4 % Normal 43.0-75.0 [facility] Comment on above: Performed By: #### B MP #### [facility] [address] [place] [address] Dr. Marcell Coates Platelet mean volume (Bld) [Entitic vol] 9.9 fL Normal 9.5-13.5 [facility] Comment on above: Performed By: #### B MP #### [facility] [address] [place] [address] [address] Marcell Coates PLT 288 103/ul Normal 150-450 [facility] Comment on above: Performed By: #### B MP #### [facility] [address] [place] [address] [address] Marcell Coates RBC 5.39 106/ul Normal 4.20-5.40 [facility] Comment on above: Performed By: #### B MP #### [facility] [address] [place] [address] [address] Marcell Coates WBC 12.5 103/ul Critically high 4.0-11.0 [facility] Comment on above: Performed By: #### B MP #### [facility] [address] [place] [address] [address] Marcell Coates CTA CHEST WO W [...] by: TRINITY ELLIS Date: 2022-07-15 02:50 Normal [facility] LACTATE/LACTIC ACIDon 2022 Lactate [Moles/Vol] 1.2 mmol/L Normal 0.4-2.0 [facility] Comment on above: Performed By: #### L IPA, LENO, CMP #### [facility] [address] [address] [address] Marcell Coates LIPASEon 07-15-2022 Lipase [Catalytic activity/Vol] 116.0 U/L Normal 73.0-393.0 [facility] Comment on above: Performed By: #### B MP #### [facility] [address] [address] [address] Marcell Coates PROF 14(COMP METB)on 023 Albumin [Mass/Vol] 3.5 g/dL Normal 3.4-5.0 [facility] Comment on above: Performed By: #### C MADM, LENO, LIPA, CMP ####[facility] [address] [place] [id number] Coates Albumin/Globulin [Mass ratio] 1.1 {ratio} Normal [facility] Comment on above: Performed By: #### C MADM, LENO, LIPA, CMP ####[facility] [address] [place] [id number]. Marcell Coates ALP [Catalytic activity/Vol] 106 U/L Normal 46-116 [facility] Comment on above: Performed By: #### C MADM, LENO, LIPA, CMP ####[facility] [address] [place] [id number]. Marcell Coates ALT [Catalytic activity/Vol] 31 U/L Normal 14-59 [facility] Comment on above: Performed By: #### C MADM, LENO, LIPA, CMP ####[facility] [address] [place] [id number] Coates Anion gap [Moles/Vol] 14.8 mmol/L Normal [facility] Comment on above: Performed By: #### C MADM, LENO, LIPA, CMP ####[facility] [address] [place] [address]Dr. Marcell Coates AST [Catalytic activity/Vol] 30 U/L Normal 15-37 [facility] Comment on above: Performed By: #### C MADM, LENO, LIPA, CMP ####[facility] [address] [place] [address]Dr. Marcell Coates Bilirubin [Mass/Vol] 0.4 mg/dL Normal 0.2-1.0 [facility] Comment on above: Performed By: #### C MADM, LENO, LIPA, CMP ####[facility] [address] [place], [place] [address]Dr. Marcell Coates Calcium [Mass/Vol] 8.8 mg/dL Normal 8.5-10.1 [facility] Comment on above: Performed By: #### C MADM, LENO, LIPA, CMP ####[facility] [address] [place], [place] [address]Dr. Marcell Coates Chloride [Moles/Vol] 106 mmol/L Normal 98-107 [facility] Comment on above: Performed By: #### C MADM, LENO, LIPA, CMP ####[facility] [address] [place], [place] [address]Dr. Marcell Coates CO2 [Moles/Vol] 26.6 mmol/L Normal 21.0-32.0 [facility] Comment on above: Performed By: #### C MADM, LENO, LIPA, CMP ####[facility] [address] [place] [address]Dr. Marcell Coates Creatinine [Mass/Vol] 1.11 mg/dL Critically high 0.55-1.02 [facility] Comment on above: Performed By: #### C MADM, LENO, LIPA, CMP ####[facility] [address] [place] [address]Dr. Marcell Coates EGFR-AF EGYPTIAN >60 Normal >=60 [facility] Comment on above: Performed By: #### C MADM, LENO, LIPA, CMP ####[facility] [address] [place] [address]Dr. Marcell Coates EGFR-NON AF EGYPTIAN 52 mL/min/1.73m2 Critically low >=60 [facility] Comment on above: Performed By: #### C MADM, LENO, LIPA, CMP ####[facility] [address] [place] [address]Dr. Marcell Coates Globulin (S) [Mass/Vol] 3.1 g/dL Normal [facility] Comment on above: Performed By: #### C MADM, LENO, LIPA, CMP ####[facility] [address] [place] [address]Dr. Marcell Coates Glucose [Mass/Vol] 126 mg/dL Critically high 74-106 [facility] Comment on above: Performed By: #### C MADJennifer, LENO, LIPA, CMP ####[facility] [address] [place] [address]Dr. Marcell Coates Potassium [Moles/Vol] 3.4 mmol/L Critically low 3.5-5.1 [facility] Comment on above: Performed By: #### C MADM, LENO, LIPA, CMP ####[facility] [address] [place] [address]Dr. Marcell Coates Protein [Mass/Vol] 6.6 g/dL Normal 6.4-8.2 [facility] Comment on above: Performed By: #### C MADM, LENO, LIPA, CMP ####[facility] [address] [place] [address]Dr. Marcell Coates Sodium [Moles/Vol] 144 mmol/L Normal 136-145 [facility] Comment on above: Performed By: #### C MADM, LENO, LIPA, CMP ####[facility] [address] [place] [address]Dr. Marcell Coates Urea nitrogen [Mass/Vol] 16.0 mg/dL Normal 7.0-18.0 [facility] Comment on above: Performed By: #### C MADJennifer, LENO, LIPA, CMP ####[facility] [address] [place], [place] [address]Ou. Marcell Coates Urea nitrogen/Creatinine [Mass ratio] 14.4 mg/mg Normal [facility] Comment on above: Performed By: #### C MADM, LENO, LIPA, CMP ####[facility] [address] [place], [place] [address]Gy. Marcell Coates XR ABD FLAT UP_PA Germaine [...] PEDRO HA Date: 2022-07-14 23:48 Normal [facility] US SINGLE QUAD RT UPPERon US [...] JT GRADY Date: 2022-06-18 12:36 Normal [facility] AMYLASEon 06-14-2022 Amylase [Catalytic activity/Vol] 19 U/L Critically low 25-115 [facility] Comment on above: Performed By: #### L IPA, LENO, CMP #### [facility] [address] [address] [address] Marcell Coates CBC AUTO DIFFon 06-14-2022 BASO # 0.1 103/ul Normal 0.0-0.1 [facility] Comment on above: Performed By: #### B MP #### [facility] [address] [place] [address] Dr. Marcell Coates Basophils/100 WBC (Bld) 0.6 % Normal 0.2-2.0 [facility] Comment on above: Performed By: #### B MP #### [facility] [address] [address] [address] Marcell Coates EO # 0.3 103/ul Normal 0.0-0.7 [facility] Comment on above: Performed By: #### B MP #### [facility] [address] [place] [address] Dr. Marcell Coates Eosinophils/100 WBC (Bld) 1.8 % Normal 0.9-7.0 [facility] Comment on above: Performed By: #### B MP #### [facility] [address] [place] [address] Dr. Marcell Coates Erythrocyte distribution width (RBC) [Ratio] 14.2 % Normal 11.0-15.0 [facility] Comment on above: Performed By: #### B MP #### [facility] [address] [place] [address] Dr. Marcell Coates Hematocrit (Bld) [Volume fraction] 44.9 % Normal 36.0-48.0 [facility] Comment on above: Performed By: #### B MP #### [facility] [address] [address] [address] Marcell Coates Hemoglobin (Bld) [Mass/Vol] 14.8 g/dL Normal 12.0-16.0 [facility] Comment on above: Performed By: #### B MP #### [facility] [address] [address] [address] Marcell Coates IG # 0.18 10e3/ul Critically high 0.00-0.03 [facility] Comment on above: Performed By: #### B MP #### [facility] [address] [address] [address] Marcell Coates IG % 1.3 % Critically high 0.0-0.5 [facility] Comment on above: Performed By: #### B MP #### [facility] [address] [address] [address] Marcell Coates LYMPH # 3.4 103/ul Normal 1.2-3.8 [facility] Comment on above: Performed By: #### B MP #### [facility] [address] [address] [address] Marcell Coates Lymphocytes/100 WBC (Bld) 24.4 % Normal 20.5-60.0 [facility] Comment on above: Performed By: #### B MP #### [facility] [address] [address] [address] Marcell Coates MANUAL DIFF REQ NO Normal [facility] Comment on above: Performed By: #### B MP #### [facility] [address] [address] [address] Marcell Coates MCH (RBC) [Entitic mass] 29.4 pg Normal 26.7-34.0 [facility] Comment on above: Performed By: #### B MP #### [facility] [address] [address] [address] Marcell Coates MCHC (RBC) [Mass/Vol] 33.0 g/dL Normal 29.9-35.2 [facility] Comment on above: Performed By: #### B MP #### [facility] [address] [address] [address] Marcell Coates MCV (RBC) [Entitic vol] 89.3 fL Normal 81.0-99.0 [facility] Comment on above: Performed By: #### B MP #### [facility] [address] [address] [address] Marcell Coates MONO # 1.1 103/ul Critically high 0.3-0.8 [facility] Comment on above: Performed By: #### B MP #### [facility] [address] [address] [address] Marcell Coates Monocytes/100 WBC (Bld) 8.1 % Normal 1.7-12.0 [facility] Comment on above: Performed By: #### B MP #### [facility] [address] [place] [address] Dr. Marcell Coates NEUT # 8.9 103/ul Critically high 1.4-6.5 [facility] Comment on above: Performed By: #### B MP #### [facility] [address] [place] [address] Dr. Marcell Coates Neutrophils/100 WBC (Bld) 63.8 % Normal 43.0-75.0 [facility] Comment on above: Performed By: #### B MP #### [facility] [address] [place], [place] [address] Dr. Marcell Coates Platelet mean volume (Bld) [Entitic vol] 10.2 fL Normal 9.5-13.5 [facility] Comment on above: Performed By: #### B MP #### [facility] [address] [place] [address] Dr. Marcell Coates PLT 284 103/ul Normal 150-450 [facility] Comment on above: Performed By: #### B MP #### [facility] [address] [place] [address] Dr. Marcell Coates RBC 5.03 106/ul Normal 4.20-5.40 [facility] Comment on above: Performed By: #### B MP #### [facility] [address] [place] [address] Dr. Marcell Coates WBC 13.9 103/ul Critically high 4.0-11.0 [facility] Comment on above: Performed By: #### B MP #### [facility] [address] [address] [address] Marcell Coates LIPASEon 06-14-2022 Lipase [Catalytic activity/Vol] 81.0 U/L Normal 73.0-393.0 [facility] Comment on above: Performed By: #### L IPA LENO, CMP #### [facility] [address] [place] [address] Dr. Marcell Coates PROF 14(COMP METB)on 023 Albumin [Mass/Vol] 3.5 g/dL Normal 3.4-5.0 [facility] Comment on above: Performed By: #### L IPA LENO, CMP #### [facility] [address] [place] [address] Dr. Marcell Coates Albumin/Globulin [Mass ratio] 1.3 {ratio} Normal [facility] Comment on above: Performed By: #### L IPA LENO, CMP #### [facility] [address] [place] [address] Dr. Marcell Coates ALP [Catalytic activity/Vol] 121 U/L Critically high 46-116 [facility] Comment on above: Performed By: #### L IPA LENO, CMP #### [facility] [address] [place] [address] Dr. Marcell Coates ALT [Catalytic activity/Vol] 32 U/L Normal 14-59 [facility] Comment on above: Performed By: #### L IPA LENO, CMP #### [facility] [address] [place] [address] Dr. Marcell Coates Anion gap [Moles/Vol] 16.4 mmol/L Normal [facility] Comment on above: Performed By: #### L IPA, LENO, CMP #### [facility] [address] [address] [address] Marcell Coates AST [Catalytic activity/Vol] 31 U/L Normal 15-37 [facility] Comment on above: Performed By: #### L IPA, LENO, CMP #### [facility] [address] [address] [address] Marcell Coates Bilirubin [Mass/Vol] 0.5 mg/dL Normal 0.2-1.0 [facility] Comment on above: Performed By: #### L IPA, LENO, CMP #### [facility] [address] [place] [address] Dr. Marcell Coates Calcium [Mass/Vol] 8.6 mg/dL Normal 8.5-10.1 [facility] Comment on above: Performed By: #### L IPA, LENO, CMP #### [facility] [address] [address] [address] Marcell Coates Chloride [Moles/Vol] 104 mmol/L Normal 98-107 [facility] Comment on above: Performed By: #### L IPA LENO, CMP #### [facility] [address] [place] [address] Dr. Marcell Coates CO2 [Moles/Vol] 21.2 mmol/L Normal 21.0-32.0 [facility] Comment on above: Performed By: #### L IPA LENO, CMP #### [facility] [address] [place] [address] Dr. Marcell Coates Creatinine [Mass/Vol] 1.13 mg/dL Critically high 0.55-1.02 [facility] Comment on above: Performed By: #### L IPA LENO, CMP #### [facility] [address] [place] [address] Dr. Marcell Coates EGFR-AF EGYPTIAN >60 Normal >=60 [facility] Comment on above: Performed By: #### L IPA, LENO, CMP #### [facility] [address] [place] [address] Dr. Marcell Coates EGFR-NON AF EGYPTIAN 51 mL/min/1.73m2 Critically low >=60 [facility] Comment on above: Performed By: #### L IPA, LENO, CMP #### [facility] [address] [place] [address] Dr. Marcell Coates Globulin (S) [Mass/Vol] 2.6 g/dL Normal [facility] Comment on above: Performed By: #### L LENO STERN, CMP #### [facility] [address] [place] [address] Dr. Marcell Coates Glucose [Mass/Vol] 139 mg/dL Critically high 74-106 [facility] Comment on above: Performed By: #### L LENO STERN, CMP #### [facility] [address] [place] [address] Dr. Marcell Coates Potassium [Moles/Vol] 3.6 mmol/L Normal 3.5-5.1 [facility] Comment on above: Performed By: #### L LENO STERN, CMP #### [facility] [address] [place] [address] Dr. Marcell Coates Protein [Mass/Vol] 6.1 g/dL Critically low 6.4-8.2 [facility] Comment on above: Performed By: #### L LENO STERN, CMP #### [facility] [address] [place] [address] Dr. Marcell Coates Sodium [Moles/Vol] 138 mmol/L Normal 136-145 [facility] Comment on above: Performed By: #### L LENO STERN, CMP #### [facility] [address] [place] [address] Dr. Marcell Coates Urea nitrogen [Mass/Vol] 18.0 mg/dL Normal 7.0-18.0 [facility] Comment on above: Performed By: #### L LENO STERN, CMP #### [facility] [address] [place] [address] Dr. Marcell Coates Urea nitrogen/Creatinine [Mass ratio] 15.9 mg/mg Normal [facility] Comment on above: Performed By: #### L LENO STERN, CMP #### [facility] [address] [place] [address] Dr. Marcell Coates TROPONIN, HIGH SENSITIVITYon 06-14-2022 HSTROP 36.3 pg/mL Normal 4.0-51.3 [facility] Comment on above: Result Comment: CUT- OFF POINTS HAVE BEEN ESTABLISHED BASED ON THE FOURTH UNIVERSAL DEFINITIONS OF MYOCARDIAL INFARCTION. THE UPPER REFERENCE LIMIT (URL) OF TROPONIN, DEFINED THE 99TH PERCENTILE OF cTnI DISTRIBUTION IN A REFERENCE POPULATION, HAS BEEN CONFIRMED THE DECISION THRESHOLD FOR NM DIAGNOSIS. Performed By: #### H STROPN ####[facility] [id number] [address]Dr. Marcell Coates AMYLASEon 06-09-2022 Amylase [Catalytic activity/Vol] 22 U/L Critically low 25-115 [facility] Comment on above: Performed By: #### B MP #### [facility] [address] [address] [address] Marcell Coates CBC AUTO DIFFon 06-09-2022 BASO # 0.1 103/ul Normal 0.0-0.1 [facility] Comment on above: Performed By: #### C BC #### [facility] [address] [place] [address] Dr. Marcell Coates Basophils/100 WBC (Bld) 0.6 % Normal 0.2-2.0 [facility] Comment on above: Performed By: #### C BC #### [facility] [address] [place] [address] Dr. Marcell Coates EO # 0.5 103/ul Normal 0.0-0.7 [facility] Comment on above: Performed By: #### C BC #### [facility] [address] [place] [address] Dr. Marcell Coates Eosinophils/100 WBC (Bld) 4.0 % Normal 0.9-7.0 [facility] Comment on above: Performed By: #### C BC #### [facility] [address] [place] [address] Dr. Marcell Coates Erythrocyte distribution width (RBC) [Ratio] 13.9 % Normal 11.0-15.0 [facility] Comment on above: Performed By: #### C BC #### [facility] [address] [place] [address] Dr. Marcell Coates Hematocrit (Bld) [Volume fraction] 46.2 % Normal 36.0-48.0 [facility] Comment on above: Performed By: #### C BC #### [facility] [address] [place] [address] Dr. Marcell Coates Hemoglobin (Bld) [Mass/Vol] 15.2 g/dL Normal 12.0-16.0 [facility] Comment on above: Performed By: #### C BC #### [facility] [address] [place] [address] Dr. Marcell Coates IG # 0.02 10e3/ul Normal 0.00-0.03 [facility] Comment on above: Performed By: #### C BC #### [facility] [address] [place] [address] Dr. Marcell Coates IG % 0.2 % Normal 0.0-0.5 [facility] Comment on above: Performed By: #### C BC #### [facility] [address] [place] [address] Dr. Marcell Coates LYMPH # 3.8 103/ul Normal 1.2-3.8 [facility] Comment on above: Performed By: #### C BC #### [facility] [address] [place] [address] Dr. Marcell Coates Lymphocytes/100 WBC (Bld) 31.4 % Normal 20.5-60.0 [facility] Comment on above: Performed By: #### C BC #### [facility] [address] [place] [address] Dr. Marcell Coates MANUAL DIFF REQ NO Normal [facility] Comment on above: Performed By: #### C BC #### [facility] [address] [place] [address] Dr. Marcell Coates MCH (RBC) [Entitic mass] 29.6 pg Normal 26.7-34.0 [facility] Comment on above: Performed By: #### C BC #### [facility] [address] [place] [address] Dr. Marcell Coates MCHC (RBC) [Mass/Vol] 32.9 g/dL Normal 29.9-35.2 [facility] Comment on above: Performed By: #### C BC #### [facility] [address] [address] [address] Marcell Coates MCV (RBC) [Entitic vol] 90.1 fL Normal 81.0-99.0 [facility] Comment on above: Performed By: #### C BC #### [facility] [address] [place] [address] Dr. Marcell Coates MONO # 0.9 103/ul Critically high 0.3-0.8 [facility] Comment on above: Performed By: #### C BC #### [facility] [address] [place] [address] Dr. Marcell Coates Monocytes/100 WBC (Bld) 7.7 % Normal 1.7-12.0 [facility] Comment on above: Performed By: #### C BC #### [facility] [address] [place] [address] Dr. Marcell Coates NEUT # 6.7 103/ul Critically high 1.4-6.5 [facility] Comment on above: Performed By: #### C BC #### [facility] [address] [place] [address] Dr. Marcell Coates Neutrophils/100 WBC (Bld) 56.1 % Normal 43.0-75.0 [facility] Comment on above: Performed By: #### C BC #### [facility] [address] [place] [address] Dr. Marcell Coates Platelet mean volume (Bld) [Entitic vol] 9.6 fL Normal 9.5-13.5 [facility] Comment on above: Performed By: #### C BC #### [facility] [address] [place] [address] Dr. Marcell Coates PLT 297 103/ul Normal 150-450 [facility] Comment on above: Performed By: #### C BC #### [facility] [address] [place] [address] Dr. Marcell Coates RBC 5.13 106/ul Normal 4.20-5.40 [facility] Comment on above: Performed By: #### C BC #### [facility] [address] [place] [address] Dr. Marcell Coates WBC 11.9 103/ul Critically high 4.0-11.0 [facility] Comment on above: Performed By: #### C BC #### [facility] [address] [place] [address] ABD/PELVIS WO CONon [...] OSWALDO QUIROZ Date: 2022-06-09 01:12 Normal [facility] ER URINE PROFILEon 3 Bilirubin Ql (U) Negative Normal NEGATIVE [facility] Comment on above: Performed By: #### B MP #### [facility] [address] [place] [address] Dr. Marcell Coates Clarity (U) CLEAR Normal CLEAR [facility] Comment on above: Performed By: #### B MP #### [facility] [address] [place] [address] Dr. Marcell Coates Color (U) LT. YELLOW Normal YELLOW [facility] Comment on above: Performed By: #### B MP #### [facility] [address] [place] [address] Dr. Marcell Coates ERUAHD A micrscopic examination will be performed if indicated. Normal [facility] Comment on above: Performed By: #### B MP #### [facility] [address] [address] [address] Marcell Coates Glucose Ql (U) Negative Normal NEGATIVE [facility] Comment on above: Performed By: #### B MP #### [facility] [address] [address] [address] Marcell Coates Hemoglobin Ql (U) Negative Normal NEGATIVE [facility] Comment on above: Performed By: #### B MP #### [facility] [address] [address] [address] Marcell Coates Ketones Ql (U) Negative Normal NEGATIVE [facility] Comment on above: Performed By: #### B MP #### [facility] [address] [place] [address] Dr. Marcell Coates LEUKOCYTES Negative Normal NEGATIVE [facility] Comment on above: Performed By: #### B MP #### [facility] [address] [place] [address] Dr. Marcell Coates Nitrite Ql (U) Negative Normal NEGATIVE [facility] Comment on above: Performed By: #### B MP #### [facility] [address] [place] [address] Dr. Marcell Coates pH (U) 6.0 [pH] Normal 5-9 [facility] Comment on above: Performed By: #### B MP #### [facility] [address] [place] [address] Dr. Marcell Coates Protein (U) [Mass/Vol] 30 mg/dL Abnormal NEGAT CASEY/ TRACE [facility] Comment on above: Performed By: #### B MP #### [facility] [address] [place] [address] Dr. Marcell Coates SPEC GRAVITY <=1.005 Abnormal 1.005-<=1.02 5 [facility] Comment on above: Performed By: #### B MP #### [facility] [address] [place] [address] Dr. Marcell Coates UR MICRO IND NOT INDICATED Normal [facility] Comment on above: Performed By: #### B MP #### [facility] [address] [place] [address] Dr. Marcell Coates Urobilinogen Qn (U) 0.2 {Jl'U}/dL Normal 0.2 - 1. 0 [facility] Comment on above: Performed By: #### B MP #### [facility] [address] [place] [address] Dr. Marcell Coates LIPASEon 06-09-2022 Lipase [Catalytic activity/Vol] 82.0 U/L Normal 73.0-393.0 [facility] Comment on above: Performed By: #### B MP #### [facility] [address] [place] [address] Dr. Marcell Coates PROF 14(COMP METB)on 023 Albumin [Mass/Vol] 3.6 g/dL Normal 3.4-5.0 [facility] Comment on above: Performed By: #### B MP #### [facility] [address] [place] [address] Dr. Marcell Coates Albumin/Globulin [Mass ratio] 1.2 {ratio} Normal [facility] Comment on above: Performed By: #### B MP #### [facility] [address] [place] [address] Dr. Marcell Coates ALP [Catalytic activity/Vol] 92 U/L Normal 46-116 [facility] Comment on above: Performed By: #### B MP #### [facility] [address] [place] [address] Dr. Marcell Coates ALT [Catalytic activity/Vol] 30 U/L Normal 14-59 [facility] Comment on above: Performed By: #### B MP #### [facility] [address] [place] [address] Dr. Marcell Coates Anion gap [Moles/Vol] 12.0 mmol/L Normal [facility] Comment on above: Performed By: #### B MP #### [facility] [address] [place] [address] Dr. Marcell Coates AST [Catalytic activity/Vol] 25 U/L Normal 15-37 [facility] Comment on above: Performed By: #### B MP #### [facility] [address] [address] [address] Marcell Coates Bilirubin [Mass/Vol] 0.4 mg/dL Normal 0.2-1.0 [facility] Comment on above: Performed By: #### B MP #### [facility] [address] [address] [address] Marcell Coates Calcium [Mass/Vol] 8.7 mg/dL Normal 8.5-10.1 [facility] Comment on above: Performed By: #### B MP #### [facility] [address] [address] [address] Marcell Coates Chloride [Moles/Vol] 103 mmol/L Normal 98-107 [facility] Comment on above: Performed By: #### B MP #### [facility] [address] [place] [address] Dr. Marcell Coates CO2 [Moles/Vol] 24.5 mmol/L Normal 21.0-32.0 [facility] Comment on above: Performed By: #### B MP #### [facility] [address] [address] [address] Marcell Coates Creatinine [Mass/Vol] 1.04 mg/dL Critically high 0.55-1.02 [facility] Comment on above: Performed By: #### B MP #### [facility] [address] [place] [address] Dr. Marcell Coates EGFR-AF EGYPTIAN >60 Normal >=60 [facility] Comment on above: Performed By: #### B MP #### [facility] [address] [place] [address] Dr. Marcell Coates EGFR-NON AF EGYPTIAN 56 mL/min/1.73m2 Critically low >=60 [facility] Comment on above: Performed By: #### B MP #### [facility] [address] [place] [address] Dr. Marcell Coates Globulin (S) [Mass/Vol] 3.0 g/dL Normal [facility] Comment on above: Performed By: #### B MP #### [facility] [address] [address] [address] Marcell Coates Glucose [Mass/Vol] 109 mg/dL Critically high 74-106 [facility] Comment on above: Performed By: #### B MP #### [facility] [address] [address] [address] Marcell Coates Potassium [Moles/Vol] 3.5 mmol/L Normal 3.5-5.1 [facility] Comment on above: Performed By: #### B MP #### [facility] [address] [address] [address] Marcell Coates Protein [Mass/Vol] 6.6 g/dL Normal 6.4-8.2 [facility] Comment on above: Performed By: #### B MP #### [facility] [address] [address] [address] Marcell Coates Sodium [Moles/Vol] 136 mmol/L Normal 136-145 [facility] Comment on above: Performed By: #### B MP #### [facility] [address] [address] [address] Marcell Coates Urea nitrogen [Mass/Vol] 10.0 mg/dL Normal 7.0-18.0 [facility] Comment on above: Performed By: #### B MP #### [facility] [address] [address] [address] Marcell Coates Urea nitrogen/Creatinine [Mass ratio] 9.6 mg/mg Normal [facility] Comment on above: Performed By: #### B MP #### [facility] [address] [address] [address] Marcell Coates XR CHEST 1 Von [...] LIOR JIANG Date: 2022-05-11 03:02 Normal [facility] BNPon 04-22-2022 Natriuretic peptide B (Bld) [Mass/Vol] 9289.0 pg/mL Critically high <=450.0 [facility] Comment on above: Performed By: #### B APPLIANCE MECHANIC, BMP #### [facility] [address] [place] [address] Dr. Marcell Coates CBC AUTO DIFFon 04-22-2022 BASO # 0.1 103/ul Normal 0.0-0.1 [facility] Comment on above: Performed By: #### L LENO STERN, CMP #### [facility] [address] [place] [address] Dr. Marcell Coates Basophils/100 WBC (Bld) 0.6 % Normal 0.2-2.0 [facility] Comment on above: Performed By: #### L LENO STERN, CMP #### [facility] [address] [place] [address] Dr. Marcell Coates EO # 0.4 103/ul Normal 0.0-0.7 [facility] Comment on above: Performed By: #### L LENO STERN, CMP #### [facility] [address] [place] [address] Dr. Marcell Coates Eosinophils/100 WBC (Bld) 2.9 % Normal 0.9-7.0 [facility] Comment on above: Performed By: #### L LENO STERN, CMP #### [facility] [address] [place] [address] Dr. Marcell Coates Erythrocyte distribution width (RBC) [Ratio] 14.5 % Normal 11.0-15.0 [facility] Comment on above: Performed By: #### L LENO STERN, CMP #### [facility] [address] [place] [address] Dr. Marcell Coates Hematocrit (Bld) [Volume fraction] 41.6 % Normal 36.0-48.0 [facility] Comment on above: Performed By: #### L LENO STERN, CMP #### [facility] [address] [place] [address] Dr. Marcell Coates Hemoglobin (Bld) [Mass/Vol] 13.1 g/dL Normal 12.0-16.0 [facility] Comment on above: Performed By: #### L LENO STERN, CMP #### [facility] [address] [place] [address] Dr. Marcell Coates IG # 0.05 10e3/ul Critically high 0.00-0.03 [facility] Comment on above: Performed By: #### L LENO STERN, CMP #### [facility] [address] [place] [address] Dr. Marcell Coates IG % 0.4 % Normal 0.0-0.5 [facility] Comment on above: Performed By: #### L LENO STERN, CMP #### [facility] [address] [place] [address] Dr. Marcell Coates LYMPH # 3.1 103/ul Normal 1.2-3.8 [facility] Comment on above: Performed By: #### L LENO STERN, CMP #### [facility] [address] [place] [address] Dr. Marcell Coates Lymphocytes/100 WBC (Bld) 22.1 % Normal 20.5-60.0 [facility] Comment on above: Performed By: #### L LENO STERN, CMP #### [facility] [address] [place] [address] Dr. Marcell Coates MANUAL DIFF REQ NO Normal [facility] Comment on above: Performed By: #### L LENO STERN, CMP #### [facility] [address] [place] [address] Dr. Marcell Coates MCH (RBC) [Entitic mass] 29.8 pg Normal 26.7-34.0 [facility] Comment on above: Performed By: #### L IPA, LENO, CMP #### [facility] [address] [place] [address] Dr. Marcell Coates MCHC (RBC) [Mass/Vol] 31.5 g/dL Normal 29.9-35.2 [facility] Comment on above: Performed By: #### L IPA, LENO, CMP #### [facility] [address] [place] [address] Dr. Marcell Coates MCV (RBC) [Entitic vol] 94.5 fL Normal 81.0-99.0 [facility] Comment on above: Performed By: #### L IPA LENO, CMP #### [facility] [address] [place] [address] Dr. Marcell Coates MONO # 0.9 103/ul Critically high 0.3-0.8 [facility] Comment on above: Performed By: #### L IPA LENO, CMP #### [facility] [address] [place] [address] Dr. Marcell Coates Monocytes/100 WBC (Bld) 6.1 % Normal 1.7-12.0 [facility] Comment on above: Performed By: #### L IPA LENO, CMP #### [facility] [address] [place] [address] Dr. Marcell Coates NEUT # 9.5 103/ul Critically high 1.4-6.5 [facility] [facility] Comment on above: Performed By: #### L IPA, LENO, CMP #### [facility] [address] [place] [address] Dr. Marcell Coates Neutrophils/100 WBC (Bld) 67.9 % Normal 43.0-75.0 [facility] Comment on above: Performed By: #### L IPA, LENO, CMP #### [facility] [address] [place] [address] Dr. Marcell Coates Platelet mean volume (Bld) [Entitic vol] 10.0 fL Normal 9.5-13.5 [facility] Comment on above: Performed By: #### L LENO STERN, CMP #### [facility] [address] [place] [address] Dr. Marcell Coates PLT 285 103/ul Normal 150-450 [facility] Comment on above: Performed By: #### L LENO STERN, CMP #### [facility] [address] [place] [address] Dr. Marcell Coates RBC 4.40 106/ul Normal 4.20-5.40 [facility] Comment on above: Performed By: #### L LENO STERN, CMP #### [facility] [address] [place] [address] Dr. Marcell Coates WBC 13.9 103/ul Critically high 4.0-11.0 [facility] Comment on above: Performed By: #### L LENO STERN, CMP #### [facility] [address] [place] [address] Dr. Marcell Coates PROF CHEM 8 (BAS METB)on Anion gap [Moles/Vol] 15.0 mmol/L Normal [facility] Comment on above: Performed By: #### B APPLIANCE MECHANIC, BMP #### [facility] [address] [place] [address] Dr. Marcell Coates Calcium [Mass/Vol] 9.1 mg/dL Normal 8.5-10.1 [facility] Comment on above: Performed By: #### B APPLIANCE MECHANIC, BMP #### [facility] [address] [place] [address] Dr. Marcell Coates Chloride [Moles/Vol] 107 mmol/L Normal 98-107 [facility] Comment on above: Performed By: #### B APPLIANCE MECHANIC, BMP #### [facility] [address] [place] [address] Dr. Marcell Coates CO2 [Moles/Vol] 23.4 mmol/L Normal 21.0-32.0 [facility] Comment on above: Performed By: #### B APPLIANCE MECHANIC, BMP #### [facility] [address] [address] [address] Marcell Coates Creatinine [Mass/Vol] 1.00 mg/dL Normal 0.55-1.02 [facility] Comment on above: Performed By: #### B APPLIANCE MECHANIC, BMP #### [facility] [address] [place] [address] Dr. Marcell Coates EGFR-AF EGYPTIAN >60 Normal >=60 [facility] Comment on above: Performed By: #### B APPLIANCE MECHANIC, BMP #### [facility] [address] [address] [address] Marcell Coates EGFR-NON AF EGYPTIAN 59 mL/min/1.73m2 Critically low >=60 [facility] Comment on above: Performed By: #### B APPLIANCE MECHANIC, BMP #### [facility] [address] [place] [address] Dr. Marcell Coates Glucose [Mass/Vol] 166 mg/dL Critically high 74-106 [facility] Comment on above: Performed By: #### B APPLIANCE MECHANIC, BMP #### [facility] [address] [place] [address] Dr. Marcell Coates Potassium [Moles/Vol] 3.4 mmol/L Critically low 3.5-5.1 [facility] Comment on above: Performed By: #### B APPLIANCE MECHANIC, BMP #### [facility] [address] [place] [address] Dr. Marcell Coates Sodium [Moles/Vol] 142 mmol/L Normal 136-145 [facility] Comment on above: Performed By: #### B APPLIANCE MECHANIC, BMP #### [facility] [address] [place] [address] Dr. Marcell Coates Urea nitrogen [Mass/Vol] 21.0 mg/dL Critically high 7.0-18.0 [facility] Comment on above: Performed By: #### B APPLIANCE MECHANIC, BMP #### [facility] [address] [place] [address] Dr. Marcell Coates Urea nitrogen/Creatinine [Mass ratio] 21.0 mg/mg Normal [facility] Comment on above: Performed By: #### B APPLIANCE MECHANIC, BMP #### [facility] [address] [address] [address] Marcell Coates TROPONIN, HIGH SENSITIVITYon 04-22-2022 HSTROP 48.9 pg/mL Normal 4.0-51.3 [facility] Comment on above: Result Comment: CUT- OFF POINTS HAVE BEEN ESTABLISHED BASED ON THE FOURTH UNIVERSAL DEFINITIONS OF MYOCARDIAL INFARCTION. THE UPPER REFERENCE LIMIT (URL) OF TROPONIN, DEFINED THE 99TH PERCENTILE OF cTnI DISTRIBUTION IN A REFERENCE POPULATION, HAS BEEN CONFIRMED THE DECISION THRESHOLD FOR NM DIAGNOSIS. Performed By: #### H STROPN ####[facility] [address] [address]Dr. Marcell Coates XR CHEST 1 Von 04-22-2022 [...] LIZANDRO LATIF Date: 2022-04-22 19:45 Normal [facility] CARDIAC ISACC 3-6on 2 CK [Catalytic activity/Vol] 63 U/L Normal 26-192 [facility] Comment on above: Performed By: #### C MREP ####[facility] [address] [address]Dr. Marcell Coates CK.MB [Mass/Vol] 1.16 ng/mL Normal <=3.60 [facility] Comment on above: Performed By: #### C MREP ####[facility] [address] [address]Dr. Marcell Coates HSTROP 27.4 pg/mL Normal 4.0-51.3 [facility] Comment on above: Result Comment: CUT- OFF POINTS HAVE BEEN ESTABLISHED BASED ON THE FOURTH UNIVERSAL DEFINITIONS OF MYOCARDIAL INFARCTION. THE UPPER REFERENCE LIMIT (URL) OF TROPONIN, DEFINED THE 99TH PERCENTILE OF cTnI DISTRIBUTION IN A REFERENCE POPULATION, HAS BEEN CONFIRMED THE DECISION THRESHOLD FOR NM DIAGNOSIS. Performed By: #### C MREP ####[facility] [address] [place], [place] [address]Wl. Marcell Coates CARDIAC ISACC ADMITon 022 CK [Catalytic activity/Vol] 67 U/L Normal 26-192 [facility] Comment on above: Performed By: #### C MADM, BMP ####[facility] [address] [id number]. Marcell Coates CK.MB [Mass/Vol] 0.84 ng/mL Normal <=3.60 [facility] Comment on above: Performed By: #### C MADM, BMP ####[facility] [address] [place] [id number]. Marcell Coates HSTROP 25.4 pg/mL Normal 4.0-51.3 [facility] Comment on above: Result Comment: CUT- OFF POINTS HAVE BEEN ESTABLISHED BASED ON THE FOURTH UNIVERSAL DEFINITIONS OF MYOCARDIAL INFARCTION. THE UPPER REFERENCE LIMIT (URL) OF TROPONIN, DEFINED THE 99TH PERCENTILE OF cTnI DISTRIBUTION IN A REFERENCE POPULATION, HAS BEEN CONFIRMED THE DECISION THRESHOLD FOR NM DIAGNOSIS. Performed By: #### C MADM, BMP ####[facility] [address] [place] [id number]. Marcell Coates CHASITY 44 ng/mL Normal 9-82 [facility] Comment on above: Performed By: #### C MADM, BMP ####[facility] [address] [place] [id number] Coates CBC AUTO DIFFon 01-22-2022 BASO # 0.1 103/ul Normal 0.0-0.1 [facility] Comment on above: Performed By: #### L IPA, LENO, CMP #### [facility] [address] [address] [address] Marcell Coates Basophils/100 WBC (Bld) 0.7 % Normal 0.2-2.0 [facility] Comment on above: Performed By: #### L IPA, LENO, CMP #### [facility] [address] [address] [address] Marcell Coates EO # 0.5 103/ul Normal 0.0-0.7 [facility] Comment on above: Performed By: #### L LENO STERN, CMP #### [facility] [address] [place] [address] Dr. Marcell Coates Eosinophils/100 WBC (Bld) 4.4 % Normal 0.9-7.0 [facility] Comment on above: Performed By: #### L LENO STERN, CMP #### [facility] [address] [place] [address] Dr. Marcell Coates Erythrocyte distribution width (RBC) [Ratio] 13.3 % Normal 11.0-15.0 [facility] Comment on above: Performed By: #### L LENO STERN, CMP #### [facility] [address] [place] [address] Dr. Marcell Coates Hematocrit (Bld) [Volume fraction] 41.9 % Normal 36.0-48.0 [facility] Comment on above: Performed By: #### L LENO STERN, CMP #### [facility] [address] [place] [address] Dr. Marcell Coates Hemoglobin (Bld) [Mass/Vol] 14.2 g/dL Normal 12.0-16.0 [facility] Comment on above: Performed By: #### L LENO STENR, CMP #### [facility] [address] [place] [address] Dr. Marcell Coates IG # 0.03 10e3/ul Normal 0.00-0.03 [facility] Comment on above: Performed By: #### L LENO STERN, CMP #### [facility] [address] [place] [address] Dr. Marcell Coates IG % 0.2 % Normal 0.0-0.5 [facility] Comment on above: Performed By: #### L LENO STERN, CMP #### [facility] [address] [place] [address] Dr. Marcell Coates LYMPH # 4.0 103/ul Critically high 1.2-3.8 [facility] Comment on above: Performed By: #### L LENO STERN, CMP #### [facility] [address] [place] [address] Dr. Marcell Coates Lymphocytes/100 WBC (Bld) 32.9 % Normal 20.5-60.0 [facility] Comment on above: Performed By: #### L LENO STERN, CMP #### [facility] [address] [place] [address] Dr. Marcell Coates MANUAL DIFF REQ NO Normal [facility] Comment on above: Performed By: #### L LENO STERN, CMP #### [facility] [address] [address] [address] Marcell Coates MCH (RBC) [Entitic mass] 30.3 pg Normal 26.7-34.0 [facility] Comment on above: Performed By: #### L LENO STERN, CMP #### [facility] [address] [place] [address] Dr. Marcell Coates MCHC (RBC) [Mass/Vol] 33.9 g/dL Normal 29.9-35.2 [facility] Comment on above: Performed By: #### L LENO STERN, CMP #### [facility] [address] [place] [address] Dr. Marcell Coates MCV (RBC) [Entitic vol] 89.5 fL Normal 81.0-99.0 [facility] Comment on above: Performed By: #### L LENO STERN, CMP #### [facility] [address] [place] [address] Dr. Marcell Coates MONO # 0.9 103/ul Critically high 0.3-0.8 [facility] Comment on above: Performed By: #### L LENO STERN, CMP #### [facility] [address] [place] [address] Dr. Marcell Coates Monocytes/100 WBC (Bld) 7.3 % Normal 1.7-12.0 [facility] Comment on above: Performed By: #### L LENO STERN, CMP #### [facility] [address] [place] [address] Dr. Marcell Coates NEUT # 6.6 103/ul Critically high 1.4-6.5 [facility] Comment on above: Performed By: #### L LENO STERN, CMP #### [facility] [address] [address] [address] Marcell Coates Neutrophils/100 WBC (Bld) 54.5 % Normal 43.0-75.0 [facility] Comment on above: Performed By: #### L IPA LENO, CMP #### [facility] [address] [address] [address] Marcell Coates Platelet mean volume (Bld) [Entitic vol] 10.0 fL Normal 9.5-13.5 [facility] Comment on above: Performed By: #### L LEENA LENO, CMP #### [facility] [address] [address] [address] Marcell Coates PLT 250 103/ul Normal 150-450 [facility] Comment on above: Performed By: #### L LEENA LENO, CMP #### [facility] [address] [address] [address] Marcell Coates RBC 4.68 106/ul Normal 4.20-5.40 [facility] Comment on above: Performed By: #### L LENO STERN, CMP #### [facility] [address] [address] [address] Marcell Coates WBC 12.1 103/ul Critically high 4.0-11.0 [facility] Comment on above: Performed By: #### L LENO STERN, CMP #### [facility] [address] [place] [address] HEAD WO CONon [...] acute intracranial abnormality. Electronically authenticated by: HAYLEE GLENNYANJALI Date: 2022-01-22 01:46 Normal [facility] PROF CHEM 8 (BAS METB)on Anion gap [Moles/Vol] 13.4 mmol/L Normal [facility] Comment on above: Performed By: #### C RAFY, BMP ####[facility] [address] [address]Dr. Marcell Coates Calcium [Mass/Vol] 9.6 mg/dL Normal 8.5-10.1 [facility] Comment on above: Performed By: #### C RAFY, BMP ####[facility] [address] [address]Dr. Marcell Coates Chloride [Moles/Vol] 103 mmol/L Normal 98-107 [facility] Comment on above: Performed By: #### C RAFY, BMP ####[facility] [address] [place], [place] [address]Dr. Marcell Coates CO2 [Moles/Vol] 25.4 mmol/L Normal 21.0-32.0 [facility] Comment on above: Performed By: #### C RAFY, BMP ####[facility] [address] [place], [place] [address]Dr. Marcell Coates Creatinine [Mass/Vol] 0.97 mg/dL Normal 0.55-1.02 [facility] Comment on above: Performed By: #### C RAFY, BMP ####[facility] [address] [address]Dr. Ansilvio Jaxon EGFR-AF EGYPTIAN >60 Normal >=60 [facility] Comment on above: Performed By: #### C RAFY, BMP ####[facility] [address] [address]Dr. Marcell Coates EGFR-NON AF EGYPTIAN >60 Normal >=60 [facility] Comment on above: Performed By: #### C RAFY, BMP ####[facility] [address] [place], [place] [address]Dr. Marcell Coates Glucose [Mass/Vol] 146 mg/dL Critically high 74-106 [facility] Comment on above: Performed By: #### C RAFY, BMP ####[facility] [address] [address]Dr. Marcell Coates Potassium [Moles/Vol] 3.8 mmol/L Normal 3.5-5.1 [facility] Comment on above: Performed By: #### C RAFY, BMP ####[facility] [address] [address]Dr. Marcell Coates Sodium [Moles/Vol] 138 mmol/L Normal 136-145 [facility] Comment on above: Performed By: #### C RAFY, BMP ####[facility] [address] [address]Dr. Marcell Coates Urea nitrogen [Mass/Vol] 19.0 mg/dL Critically high 7.0-18.0 [facility] Comment on above: Performed By: #### Coleen HILLMAN, BMP ####[facility] [address] [address]Dr. Marcell Coates Urea nitrogen/Creatinine [Mass ratio] 19.6 mg/mg Normal [facility] Comment on above: Performed By: #### C RAFY, BMP ####[facility] [address] [place], [place] [address]Dr. Marcell Coates XR CHEST 1 Von 01-22-2022 [...] Minal HARRIS Date: 2022-01-22 01:40 Normal [facility] XR SHOULDER LT 2V or >on [...] Minal HARRIS Date: 2022-01-22 04:36 Normal [facility] CBC AUTO DIFFon 12-22-2021 BASO # 0.1 103/ul Normal 0.0-0.1 [facility] Comment on above: Performed By: #### C BC ####[facility] [address] [address]Dr. Marcell Coates Basophils/100 WBC (Bld) 0.6 % Normal 0.2-2.0 [facility] Comment on above: Performed By: #### C BC ####[facility] [address] [place], [place] [address]Dr. Marcell Coates EO # 0.6 103/ul Normal 0.0-0.7 [facility] Comment on above: Performed By: #### C BC ####[facility] [address] [place], [place] [address]Dr. Marcell Coates Eosinophils/100 WBC (Bld) 4.8 % Normal 0.9-7.0 [facility] Comment on above: Performed By: #### C BC ####[facility] [address] [place], [place] [address]Dr. Marcell Coates Erythrocyte distribution width (RBC) [Ratio] 13.5 % Normal 11.0-15.0 [facility] Comment on above: Performed By: #### C BC ####[facility] [address] [place], [place] [address]Dr. Marcell Coates Hematocrit (Bld) [Volume fraction] 43.7 % Normal 36.0-48.0 [facility] Comment on above: Performed By: #### C BC ####[facility] [address] [place], [place] [address]Dr. Marcell Coates Hemoglobin (Bld) [Mass/Vol] 14.4 g/dL Normal 12.0-16.0 [facility] Comment on above: Performed By: #### C BC ####[facility] [address] [address]DrSherrie Coates IG # 0.04 10e3/ul Critically high 0.00-0.03 [facility] Comment on above: Performed By: #### C BC ####[facility] [address] [address]DrSherrie Coates IG % 0.3 % Normal 0.0-0.5 [facility] Comment on above: Performed By: #### C BC ####[facility] [address] [address]DrSherrie Coates LYMPH # 3.2 103/ul Normal 1.2-3.8 [facility] Comment on above: Performed By: #### C BC ####[facility] [address] [place] [address]DrSherrie Coates Lymphocytes/100 WBC (Bld) 24.6 % Normal 20.5-60.0 [facility] Comment on above: Performed By: #### C BC ####[facility] [address] [place] [address]DrSherrie Coates MANUAL DIFF REQ NO Normal [facility] Comment on above: Performed By: #### C BC ####[facility] [address] [id number] Coates MCH (RBC) [Entitic mass] 29.9 pg Normal 26.7-34.0 [facility] Comment on above: Performed By: #### C BC ####[facility] [address] [id number] Coates MCHC (RBC) [Mass/Vol] 33.0 g/dL Normal 29.9-35.2 [facility] Comment on above: Performed By: #### C BC ####[facility] [address] [place] [id number] Coates MCV (RBC) [Entitic vol] 90.9 fL Normal 81.0-99.0 [facility] Comment on above: Performed By: #### C BC ####[facility] [address] [place] [id number]. Marcell Coates MONO # 1.2 103/ul Critically high 0.3-0.8 [facility] Comment on above: Performed By: #### C BC ####[facility] [address] [id number]. Marcell Coates Monocytes/100 WBC (Bld) 9.1 % Normal 1.7-12.0 [facility] Comment on above: Performed By: #### C BC ####[facility] [address] [place] [address]Dr. Marcell Coates NEUT # 7.9 103/ul Critically high 1.4-6.5 [facility] Comment on above: Performed By: #### C BC ####[facility] [address] [place] [address]Dr. Marcell Coates Neutrophils/100 WBC (Bld) 60.6 % Normal 43.0-75.0 [facility] Comment on above: Performed By: #### C BC ####[facility] [address] [place], [place] [address]Dr. Marcell Coates Platelet mean volume (Bld) [Entitic vol] 10.2 fL Normal 9.5-13.5 [facility] Comment on above: Performed By: #### C BC ####[facility] [address] [place] [id number]. Marcell Coates PLT 284 103/ul Normal 150-450 [facility] Comment on above: Performed By: #### C BC ####[facility] [address] [id number]. Ansilvio Jaxon RBC 4.81 106/ul Normal 4.20-5.40 [facility] Comment on above: Performed By: #### C BC ####[facility] [address] [place] [id number]. Marcell Coates WBC 13.0 103/ul Critically high 4.0-11.0 [facility] Comment on above: Performed By: #### C ####[facility] [address] [place], [place] [address]HoSherrie Coates CTA CHEST WO W CONon 022 [...] LIOR JIANG Date: 2021-12-22 03:52 Normal [facility] Covid-19 PCR (CVDTBH)on SARS-CoV-2 (COVID-19) RNA RUSSELL+probe Ql (Unsp spec) Not detected Normal NOT DETECTED [facility] Comment on above: Result Comment: When [...] for this test is supported by the [place] of [employer] and Human Service's declaration that [...] By: #### L LENO STERN, CMP #### [facility] [address] [place], [place] [address] Dr. Marcell Coates INFLUENZA A AND B AGon 12-22 INFLUENZA A AG Negative Normal NEGATIVE SEE COMMENT [facility] Comment on above: Performed By: #### I NFLUAB ####[facility] [address] [place] [address]DrSherrie Coates INFLUENZA B AG Negative Normal NEGATIVE SEE COMMENT [facility] Comment on above: Performed By: #### I NFLUAB ####[facility] [address] [place] [id number]. Marcell Coates INFLUPOSH SEE BELOW Normal [facility] Comment on above: Result Comment: NOTE : Live attenuated influenzae vaccine viruses can cause a positive result for a rapid influenza diagnostic test if administered up to 7 days prior to rapid testing. Performed By: #### I NFLUAB ####[facility] [address] [place], [place] [address]Cd. Marcell Coates INFLUPOSHB SEE BELOW Normal [facility] Comment on above: Result Comment: NOTE : Live attenuated influenzae vaccine viruses can cause a positive result for a rapid influenza diagnostic test if administered up to 7 days prior to rapid testing. Performed By: #### I NFLUAB ####[facility] [address] [place] [address]Dr. Marcell Coates INTERNAL CONTROLS Within Normal Limits Normal Wi thin Normal Limits [facility] Comment on above: Performed By: #### I NFLUAB ####[facility] [address] [place] [address]Dr. Marcell Coates PROF CHEM 8 (BAS METB)on Anion gap [Moles/Vol] 14.3 mmol/L Normal [facility] Comment on above: Performed By: #### B MP #### [facility] [address] [address] [address] Marcell Coates Calcium [Mass/Vol] 9.0 mg/dL Normal 8.5-10.1 [facility] Comment on above: Performed By: #### B MP #### [facility] [address] [address] [address] Marcell Coates Chloride [Moles/Vol] 105 mmol/L Normal 98-107 [facility] Comment on above: Performed By: #### B MP #### [facility] [address] [address] [address] Marcell Coates CO2 [Moles/Vol] 24.6 mmol/L Normal 21.0-32.0 [facility] Comment on above: Performed By: #### B MP #### [facility] [address] [address] [address] Marcell Coates Creatinine [Mass/Vol] 1.19 mg/dL Critically high 0.55-1.02 [facility] Comment on above: Performed By: #### B MP #### [facility] [address] [address] [address] Marcell Coates EGFR-AF EGYPTIAN 59 mL/min/1.73m2 Critically low >=60 [facility] Comment on above: Performed By: #### B MP #### [facility] [address] [address] [address] Marcell Coates EGFR-NON AF EGYPTIAN 48 mL/min/1.73m2 Critically low >=60 [facility] Comment on above: Performed By: #### B MP #### [facility] [address] [address] [address] Marcell Coates Glucose [Mass/Vol] 124 mg/dL Critically high 74-106 [facility] Comment on above: Performed By: #### B MP #### [facility] [address] [address] [address] Marcell Coates Potassium [Moles/Vol] 3.9 mmol/L Normal 3.5-5.1 [facility] Comment on above: Performed By: #### B MP #### [facility] [address] [address] [address] Marcell Coates Sodium [Moles/Vol] 140 mmol/L Normal 136-145 [facility] Comment on above: Performed By: #### B MP #### [facility] [address] [address] [address] Marcell Coates Urea nitrogen [Mass/Vol] 18.0 mg/dL Normal 7.0-18.0 [facility] Comment on above: Performed By: #### B MP #### [facility] [address] [address] [address] Marcell Coates Urea nitrogen/Creatinine [Mass ratio] 15.1 mg/mg Normal [facility] Comment on above: Performed By: #### B MP #### [facility] [address] [address] [address] Marcell Coates XR CHEST 1 Von [...] by: LIOR JIANG Date: 2021-12-22 01:41 Normal [facility] CBC AUTO DIFFon 11-07-2021 BASO # 0.1 103/ul Normal 0.0-0.1 [facility] Comment on above: Performed By: #### C BC ####[facility] [address] [id number]. Marecll Coates Basophils/100 WBC (Bld) 1.0 % Normal 0.2-2.0 [facility] Comment on above: Performed By: #### C BC ####[facility] [address] [place], [place] [id number]. Marcell Coates EO # 0.4 103/ul Normal 0.0-0.7 [facility] Comment on above: Performed By: #### C BC ####[facility] [address] [id number]. Marcell Coates Eosinophils/100 WBC (Bld) 3.7 % Normal 0.9-7.0 [facility] Comment on above: Performed By: #### C BC ####[facility] [address]nmr[address] [place], [place] [address]Dr. Marcell Coates Erythrocyte distribution width (RBC) [Ratio] 13.8 % Normal 11.0-15.0 [facility] Comment on above: Performed By: #### C BC ####[facility] Zzbqsrtfn[address] [place], [place] [address]Dr. Marcell Coates Hematocrit (Bld) [Volume fraction] 45.2 % Normal 36.0-48.0 [facility] Comment on above: Performed By: #### C BC ####[facility] [address] [place], [place] [address]Dr. Marcell Coates Hemoglobin (Bld) [Mass/Vol] 15.2 g/dL Normal 12.0-16.0 [facility] Comment on above: Performed By: #### C BC ####[facility] Alztbmxv[address] [place], [place] [address]Dr. Marcell Coates IG # 0.03 10e3/ul Normal 0.00-0.03 [facility] Comment on above: Performed By: #### C BC ####[facility] Rjjldataor[address] [place], [place] [address]Dr. Marcell Coates IG % 0.3 % Normal 0.0-0.5 [facility] Comment on above: Performed By: #### C BC ####[facility] [address] [id number]. Marcell Coates LYMPH # 4.0 103/ul Critically high 1.2-3.8 [facility] Comment on above: Performed By: #### C BC ####[facility] [address] [id number]. Marcell Coates Lymphocytes/100 WBC (Bld) 34.8 % Normal 20.5-60.0 [facility] Comment on above: Performed By: #### C BC ####[facility] [address] [address]Dr. Marcell Coates MANUAL DIFF REQ NO Normal [facility] Comment on above: Performed By: #### C BC ####[facility] [address] [address]Dr. Marcell Coates MCH (RBC) [Entitic mass] 30.3 pg Normal 26.7-34.0 [facility] Comment on above: Performed By: #### C BC ####[facility] [address]fc[address] [id number]. Marcell Coates MCHC (RBC) [Mass/Vol] 33.6 g/dL Normal 29.9-35.2 [facility] Comment on above: Performed By: #### C BC ####[facility] [address] [id number]. Marcell Coates MCV (RBC) [Entitic vol] 90.2 fL Normal 81.0-99.0 [facility] Comment on above: Performed By: #### C BC ####[facility] [address] [id number]. Marcell Coates MONO # 1.0 103/ul Critically high 0.3-0.8 [facility] Comment on above: Performed By: #### C BC ####[facility] [address] [address]Dr. Marcell Coates Monocytes/100 WBC (Bld) 8.7 % Normal 1.7-12.0 [facility] Comment on above: Performed By: #### C BC ####[facility] [address] [address]Dr. Marcell Coates NEUT # 5.9 103/ul Normal 1.4-6.5 [facility] Comment on above: Performed By: #### C BC ####[facility] [address] [address]Dr. Marcell Coates Neutrophils/100 WBC (Bld) 51.5 % Normal 43.0-75.0 [facility] Comment on above: Performed By: #### C BC ####[facility] [address] [address]Dr. Marcell Coates Platelet mean volume (Bld) [Entitic vol] 9.7 fL Normal 9.5-13.5 [facility] Comment on above: Performed By: #### C BC ####[facility] [address] [address]Dr. Marcell Coates PLT 326 103/ul Normal 150-450 [facility] Comment on above: Performed By: #### C BC ####[facility] [address] [id number]. Marcell Coates RBC 5.01 106/ul Normal 4.20-5.40 [facility] Comment on above: Performed By: #### C BC ####[facility] [address] [address]Dr. Marcell Coates WBC 11.4 103/ul Critically high 4.0-11.0 [facility] Comment on above: Performed By: #### C BC ####[facility] [address] [address]Dr. Marcell Coates CT HEAD WO CONon 11-07-2021 [...] CELINE KO Date: 2021-11-06 23:14 Normal [facility] PROF 14(COMP METB)on 022 Albumin [Mass/Vol] 4.1 g/dL Normal 3.4-5.0 [facility] Comment on above: Performed By: #### C MP ####[facility] [address] [address]Dr. Marcell Coates Albumin/Globulin [Mass ratio] 1.1 {ratio} Normal [facility] Comment on above: Performed By: #### C MP ####[facility] [address] [address]Dr. Marcell Coates ALP [Catalytic activity/Vol] 85 U/L Normal 46-116 [facility] Comment on above: Performed By: #### C MP ####[facility] [address] [address]Dr. Marcell Coates ALT [Catalytic activity/Vol] 21 U/L Normal 14-59 [facility] Comment on above: Performed By: #### C MP ####[facility] [address] [address]Dr. Marcell Coates Anion gap [Moles/Vol] 14.7 mmol/L Normal [facility] Comment on above: Performed By: #### C MP ####[facility] [address] [address]Dr. Marcell Coates AST [Catalytic activity/Vol] 18 U/L Normal 15-37 [facility] Comment on above: Performed By: #### C MP ####[facility] [address] [id number]. Marcell Coates Bilirubin [Mass/Vol] 0.3 mg/dL Normal 0.2-1.0 [facility] Comment on above: Performed By: #### C MP ####[facility] [address] [address]Dr. Marclel Coates Calcium [Mass/Vol] 9.3 mg/dL Normal 8.5-10.1 [facility] Comment on above: Performed By: #### C MP ####[facility] [address] [place], [place] [address]Dr. Marcell Coates Chloride [Moles/Vol] 101 mmol/L Normal 98-107 [facility] Comment on above: Performed By: #### C MP ####[facility] [address]vs[address] [place], [place] [address]Dr. Marcell Coates CO2 [Moles/Vol] 22.6 mmol/L Normal 21.0-32.0 [facility] Comment on above: Performed By: #### C MP ####[facility] Cpvriv[address]pe[address] [place], [place] [address]Dr. Marcell Coates Creatinine [Mass/Vol] 1.25 mg/dL Critically high 0.55-1.02 [facility] Comment on above: Performed By: #### C MP ####[facility] X[address]wjp[address] [place], [place] [address]Dr. Marcell Coates EGFR-AF EGYPTIAN 55 mL/min/1.73m2 Critically low >=60 [facility] Comment on above: Performed By: #### C MP ####[facility] [address] [address]Dr. Marcell Coates EGFR-NON AF EGYPTIAN 46 mL/min/1.73m2 Critically low >=60 [facility] Comment on above: Performed By: #### C MP ####[facility] [address]ms[address] [place], [place] [address]Dr. Marcell Coates Globulin (S) [Mass/Vol] 3.6 g/dL Normal [facility] Comment on above: Performed By: #### C MP ####[facility] [address] [id number]. Marcell Coates Glucose [Mass/Vol] 107 mg/dL Critically high 74-106 [facility] Comment on above: Performed By: #### C MP ####[facility] [address] [place], [place] [address]Dk. Marcell Coates Potassium [Moles/Vol] 3.3 mmol/L Critically low 3.5-5.1 [facility] Comment on above: Performed By: #### C MP ####[facility] [address] [address]Dr. Marcell Coates Protein [Mass/Vol] 7.7 g/dL Normal 6.4-8.2 [facility] Comment on above: Performed By: #### C MP ####[facility] [address] [address]Dr. Marcell Coates Sodium [Moles/Vol] 135 mmol/L Critically low 136-145 [facility] Comment on above: Performed By: #### C MP ####[facility] [address] [address]Dr. Marcell Coates Urea nitrogen [Mass/Vol] 20.0 mg/dL Critically high 7.0-18.0 [facility] Comment on above: Performed By: #### C MP ####[facility] [address] [address]DrSherrie Coates Urea nitrogen/Creatinine [Mass ratio] 16.0 mg/mg Normal [facility] Comment on above: Performed By: #### C MP ####[facility] [address] [id number] Coates CBC AUTO DIFFon 09-14-2021 BASO # 0.0 103/ul Normal 0.0-0.1 [facility] Comment on above: Performed By: #### L IPA, LENO, CMP #### [facility] [id number] Marcell Coates Basophils/100 WBC (Bld) 0.1 % Critically low 0.2-2.0 [facility] Comment on above: Performed By: #### L LENO STERN, CMP #### [facility] [address] [place] [address] Dr. Marcell Coates EO # 0.0 103/ul Normal 0.0-0.7 [facility] Comment on above: Performed By: #### L LENO STERN, CMP #### [facility] [address] [place] [address] Dr. Marcell Coates Eosinophils/100 WBC (Bld) 0.0 % Critically low 0.9-7.0 [facility] Comment on above: Performed By: #### L LENO STERN, CMP #### [facility] [address] [place] [address] Dr. Marcell Coates Erythrocyte distribution width (RBC) [Ratio] 12.8 % Normal 11.0-15.0 [facility] Comment on above: Performed By: #### L LENO STERN, CMP #### [facility] [address] [place] [address] Dr. Marcell Coates Hematocrit (Bld) [Volume fraction] 40.8 % Normal 36.0-48.0 [facility] Comment on above: Performed By: #### L LENO STERN, CMP #### [facility] [address] [place] [address] Dr. Marcell Coates Hemoglobin (Bld) [Mass/Vol] 13.2 g/dL Normal 12.0-16.0 [facility] Comment on above: Performed By: #### L LENO STERN, CMP #### [facility] [address] [place] [address] Dr. Marcell Coates IG # 0.07 10e3/ul Critically high 0.00-0.03 [facility] Comment on above: Performed By: #### L LENO STERN, CMP #### [facility] [address] [place] [address] Dr. Marcell Coates IG % 0.6 % Critically high 0.0-0.5 [facility] Comment on above: Performed By: #### L LENO STERN, CMP #### [facility] [address] [address] [address] Marcell Coates LYMPH # 1.6 103/ul Normal 1.2-3.8 [facility] Comment on above: Performed By: #### L LENO STERN, CMP #### [facility] [address] [place] [address] Dr. Marcell Coates Lymphocytes/100 WBC (Bld) 14.3 % Critically low 20.5-60.0 [facility] Comment on above: Performed By: #### L LENO STERN, CMP #### [facility] [address] [address] [address] Marcell Coates MANUAL DIFF REQ NO Normal [facility] Comment on above: Performed By: #### L LENO STERN, CMP #### [facility] [address] [place] [address] Dr. Marcell Coates MCH (RBC) [Entitic mass] 29.8 pg Normal 26.7-34.0 [facility] Comment on above: Performed By: #### L LENO STERN, CMP #### [facility] [address] [place] [address] Dr. Marcell Coates MCHC (RBC) [Mass/Vol] 32.4 g/dL Normal 29.9-35.2 [facility] Comment on above: Performed By: #### L LENO STERN, CMP #### [facility] [address] [place] [address] Dr. Marcell Coates MCV (RBC) [Entitic vol] 92.1 fL Normal 81.0-99.0 [facility] Comment on above: Performed By: #### L LENO STERN, CMP #### [facility] [address] [place] [address] Dr. Marcell Coates MONO # 0.3 103/ul Normal 0.3-0.8 [facility] Comment on above: Performed By: #### L LENO STERN, CMP #### [facility] [address] [place] [address] Dr. Marcell Coates Monocytes/100 WBC (Bld) 2.4 % Normal 1.7-12.0 [facility] Comment on above: Performed By: #### L IPALENO, CMP #### [facility] [address] [address] [address] Marcell Coates NEUT # 9.3 103/ul Critically high 1.4-6.5 [facility] Comment on above: Performed By: #### L IPA LENO, CMP #### [facility] [address] [place] [address] Dr. Marcell Coates Neutrophils/100 WBC (Bld) 82.6 % Critically high 43.0-75.0 [facility] Comment on above: Performed By: #### L LENO STERN, CMP #### [facility] [address] [place] [address] Dr. Marcell Coates Platelet mean volume (Bld) [Entitic vol] 9.8 fL Normal 9.5-13.5 [facility] Comment on above: Performed By: #### L ELNO STERN, CMP #### [facility] [address] [place] [address] Dr. Marcell Coates PLT 292 103/ul Normal 150-450 [facility] Comment on above: Performed By: #### L LENO STERN, CMP #### [facility] [address] [place] [address] Dr. Marcell Coates RBC 4.43 106/ul Normal 4.20-5.40 [facility] Comment on above: Performed By: #### L LENO STERN, CMP #### [facility] [address] [place] [address] Dr. Marcell Coates WBC 11.3 103/ul Critically high 4.0-11.0 [facility] Comment on above: Performed By: #### L LENO SETRN, CMP #### [facility] [address] [place] [address] Dr. Marcell Coates PROF CHEM 8 (BAS METB)on Anion gap [Moles/Vol] 13.8 mmol/L Normal [facility] Comment on above: Performed By: #### B MP #### [facility] [address] [place] [address] Dr. Marcell Coates Calcium [Mass/Vol] 8.9 mg/dL Normal 8.5-10.1 [facility] Comment on above: Performed By: #### B MP #### [facility] [address] [address] [address] Marcell Coates Chloride [Moles/Vol] 102 mmol/L Normal 98-107 [facility] Comment on above: Performed By: #### B MP #### [facility] [address] [address] [address] Marcell Coates CO2 [Moles/Vol] 24.3 mmol/L Normal 21.0-32.0 [facility] Comment on above: Performed By: #### B MP #### [facility] [address] [place] [address] Dr. Marcell Coates Creatinine [Mass/Vol] 1.15 mg/dL Critically high 0.55-1.02 [facility] Comment on above: Performed By: #### B MP #### [facility] [address] [address] [address] Marcell Coates EGFR-AF EGYPTIAN >60 Normal >=60 [facility] Comment on above: Performed By: #### B MP #### [facility] [address] [place] [address] Dr. Marcell Coates EGFR-NON AF EGYPTIAN 50 mL/min/1.73m2 Critically low >=60 [facility] Comment on above: Performed By: #### B MP #### [facility] [address] [address] [address] Marcell Coates Glucose [Mass/Vol] 317 mg/dL Critically high 74-106 [facility] Comment on above: Performed By: #### B MP #### [facility] [address] [address] [address] Marcell Coates Potassium [Moles/Vol] 4.1 mmol/L Normal 3.5-5.1 [facility] Comment on above: Performed By: #### B MP #### [facility] [address] [address] [address] Marcell Coates Sodium [Moles/Vol] 136 mmol/L Normal 136-145 [facility] Comment on above: Performed By: #### B MP #### [facility] [address] [address] [address] Marcell Coates Urea nitrogen [Mass/Vol] 25.0 mg/dL Critically high 7.0-18.0 [facility] Comment on above: Performed By: #### B MP #### [facility] [address] [address] [address] Marcell Coates Urea nitrogen/Creatinine [Mass ratio] 21.7 mg/mg Normal [facility] Comment on above: Performed By: #### B MP #### [facility] [address] [address] [address] Marcell Coates CBC AUTO DIFFon 09-13-2021 BASO # 0.1 103/ul Normal 0.0-0.1 [facility] Comment on above: Performed By: #### C BC ####[facility] [address] [place], [place] [address]Dr. Marcell Coates Basophils/100 WBC (Bld) 0.8 % Normal 0.2-2.0 [facility] Comment on above: Performed By: #### C BC ####[facility] [address] [place], [place] [address]Dr. Marcell Coates EO # 0.4 103/ul Normal 0.0-0.7 [facility] Comment on above: Performed By: #### C BC ####[facility] [address] [place], [place] [address]Dr. Marcell Coates Eosinophils/100 WBC (Bld) 4.1 % Normal 0.9-7.0 [facility] Comment on above: Performed By: #### C BC ####[facility] [address]unghbf[address] [place], [place] [address]DrSherrie Coates Erythrocyte distribution width (RBC) [Ratio] 13.3 % Normal 11.0-15.0 [facility] Comment on above: Performed By: #### C BC ####[facility] Itktmztpnl[address] [place], [place] [address]DrSherrie Coates Hematocrit (Bld) [Volume fraction] 41.5 % Normal 36.0-48.0 [facility] Comment on above: Performed By: #### C BC ####[facility] [address] [address]DrSherrie Marcell Coates Hemoglobin (Bld) [Mass/Vol] 13.6 g/dL Normal 12.0-16.0 [facility] Comment on above: Performed By: #### C BC ####[facility] [address] [place], [place] [address]DrSherrie Coates IG # 0.02 10e3/ul Normal 0.00-0.03 [facility] Comment on above: Performed By: #### C BC ####[facility] [address]iyh[address] [place], [place] [address]DrSherrie Coates IG % 0.2 % Normal 0.0-0.5 [facility] Comment on above: Performed By: #### C BC ####[facility] [address] [place], [place] [address]DrSherrie Coates LYMPH # 3.9 103/ul Critically high 1.2-3.8 [facility] Comment on above: Performed By: #### C BC ####[facility] [address] [place], [place] [address]DrSherrie Ansilvio Coates Lymphocytes/100 WBC (Bld) 37.9 % Normal 20.5-60.0 [facility] Comment on above: Performed By: #### C BC ####[facility] [address] [place], [place] [address]DrSherrie Coates MANUAL DIFF REQ NO Normal [facility] Comment on above: Performed By: #### C BC ####[facility] [address]qnbgbp[address] [place], [place] [address]DrSherrie Coates MCH (RBC) [Entitic mass] 30.2 pg Normal 26.7-34.0 [facility] Comment on above: Performed By: #### C BC ####[facility] [address]oriq[address] [place], [place] [address]DrSherrie Coates MCHC (RBC) [Mass/Vol] 32.8 g/dL Normal 29.9-35.2 [facility] Comment on above: Performed By: #### C BC ####[facility] [address] [address]DrSherrie Coates MCV (RBC) [Entitic vol] 92.2 fL Normal 81.0-99.0 [facility] Comment on above: Performed By: #### C BC ####[facility] [address]mp[address] [place], [place] [address]DrSherrie Coates MONO # 0.8 103/ul Normal 0.3-0.8 [facility] Comment on above: Performed By: #### C BC ####[facility] [address]oxyrrf[address] [place], [place] [address]DrSherrie Coates Monocytes/100 WBC (Bld) 8.1 % Normal 1.7-12.0 [facility] Comment on above: Performed By: #### C BC ####[facility] Ntkvhtsy[address] [place], [place] [address]Dr. Marcell Coates NEUT # 5.0 103/ul Normal 1.4-6.5 [facility] Comment on above: Performed By: #### C BC ####[facility] [address]xoc[address] [place], [place] [address]DrSherrie Coates Neutrophils/100 WBC (Bld) 48.9 % Normal 43.0-75.0 [facility] Comment on above: Performed By: #### C BC ####[facility] [address]stakudoha[address] [place], [place] [address]DrSherrie Coates Platelet mean volume (Bld) [Entitic vol] 9.5 fL Normal 9.5-13.5 [facility] Comment on above: Performed By: #### C BC ####[facility] [address]xvi[address] [place], [place] [address]DrSherrie Coates PLT 288 103/ul Normal 150-450 [facility] Comment on above: Performed By: #### C BC ####[facility] [address]iusyct[address] [place], [place] [address]DrSherrie Coates RBC 4.50 106/ul Normal 4.20-5.40 [facility] Comment on above: Performed By: #### C BC ####[facility] [address] [id number] Coates WBC 10.2 103/ul Normal 4.0-11.0 [facility] Comment on above: Performed By: #### C BC ####[facility] [address] [place], [place] [address]PrSherrie Coates CRPon 09-13-2021 CRP 1.0 mg/dL Normal <=1.0 [facility] Comment on above: Performed By: #### L LENO STERN CMP #### [facility] [address] [address] [address] Marcell Coates Covid-19 PCR ([facility])on 08-17 SARS-CoV-2 (COVID-19) RNA RUSSELL+probe Ql (Unsp spec) Not detected Normal NOT DETECTED [facility] Comment on above: Result Comment: When [...] for this test is supported by the Inspector Scales of Health and Human Service's declaration that [...] By: #### L LENO STERN CMP #### [facility] [address] [address] [address] Marcell Coates GLYCOHEMOGLOBIN A1Con 2021 ADA RECOMMENDATION SEE BELOW Normal [facility] Comment on above: Result Comment: ADA RECOMMENDED LIMIT 4.0 - 6.0 ADA THERAPEUTIC TARGET < 7.0 ACTION SUGGESTED > 7.0 Performed By: #### B MP #### [facility] [address] [place] [address] Dr. Marcell Coates Glucose [Mass/Vol] 128 mg/dL Normal [facility] Comment on above: Performed By: #### B MP #### [facility] [address] [address] [address] Marcell Coates HbA1c (Bld) [Mass fraction] 6.1 % Normal 4.5-6.2 [facility] Comment on above: Performed By: #### B MP #### [facility] [address] [place] [address] Dr. Marcell Coates PROF CHEM 8 (BAS METB)on Anion gap [Moles/Vol] 13.5 mmol/L Normal [facility] Comment on above: Performed By: #### L LENO STERN, CMP #### [facility] [address] [place] [address] Dr. Marcell Coates Calcium [Mass/Vol] 8.6 mg/dL Normal 8.5-10.1 [facility] Comment on above: Performed By: #### L LENO STERN, CMP #### [facility] [address] [place] [address] Dr. Marcell Coates Chloride [Moles/Vol] 107 mmol/L Normal 98-107 [facility] Comment on above: Performed By: #### L LENO STERN, CMP #### [facility] [address] [place] [address] Dr. Marcell Coates CO2 [Moles/Vol] 25.5 mmol/L Normal 21.0-32.0 [facility] Comment on above: Performed By: #### L LENO STERN, CMP #### [facility] [address] [place] [address] Dr. Marcell Coates Creatinine [Mass/Vol] 1.25 mg/dL Critically high 0.55-1.02 [facility] Comment on above: Performed By: #### L LENO STERN, CMP #### [facility] [address] [place], [place] [id number] Dr. Marcell Coates EGFR-AF EGYPTIAN 58 mL/min/1.73m2 Critically low >=60 [facility] Comment on above: Performed By: #### L LENO STERN, CMP #### [facility] [address] [place] [address] Dr. Marcell Coates EGFR-NON AF EGYPTIAN 47 mL/min/1.73m2 Critically low >=60 [facility] Comment on above: Performed By: #### L LENO STERN, CMP #### [facility] [address] [place] [address] Dr. Marcell Coates Glucose [Mass/Vol] 154 mg/dL Critically high 74-106 [facility] Comment on above: Performed By: #### L LENO STERN, CMP #### [facility] [address] [place] [address] Dr. Marcell Coates Potassium [Moles/Vol] 4.0 mmol/L Normal 3.5-5.1 [facility] Comment on above: Performed By: #### L LENO STERN, CMP #### [facility] [address] [place] [address] Dr. Marcell Coates Sodium [Moles/Vol] 142 mmol/L Normal 136-145 [facility] Comment on above: Performed By: #### L LENO STERN, CMP #### [facility] [address] [place] [address] Dr. Marcell Coates Urea nitrogen [Mass/Vol] 18.0 mg/dL Normal 7.0-18.0 [facility] Comment on above: Performed By: #### L LENO STERN, CMP #### [facility] [address] [place] [address] Dr. Marcell Coates Urea nitrogen/Creatinine [Mass ratio] 14.4 mg/mg Normal [facility] Comment on above: Performed By: #### L LENO STERN, CMP #### [facility] [address] [place] [address] Dr. Marcell Coates SED RATE [facility] 2021 SED RATE 16 mm/hr Normal <=20 [facility] Comment on above: Performed By: #### L IPA, LENO, CMP #### [facility] [address] [address] [address] Marcell Coates XR HIP RT 2 [...] EDDY MELGOZA Date: 2021-09-13 05:33 Normal [facility] XR LSPINE 2_3 VIEWSon 2021 XR [...] LIZANDRO PENDLETON Date: 2021-09-13 07:37 Normal [facility] CBC W/DIFFon 08-09-2020 BASOPHILS ABS AUTO [facility] 0.1 x10E3/uL Normal 0.0-0.2 [facility] Comment on above: Performed By: #### L [id number], LAB17 #### [facility] 1 , BASOPHILS RELATIVE AUTO [facility] 1 % Normal Not Estab. [facility] Comment on above: Performed By: #### L [id number], LAB17 #### [facility] 1 , Eosinophils (Bld) [#/Vol] 0.2 10*3/uL Normal 0.0-0.4 [facility] Comment on above: Performed By: #### L [id number], LAB17 #### [facility] 1 , Eosinophils/100 WBC (Bld) 3 % Normal Not Estab. [facility] Comment on above: Performed By: #### L [id number], LAB17 #### [facility] 1 , Erythrocyte distribution width (RBC) [Ratio] 11.9 % Normal 11.7-15.4 [facility] Comment on above: Performed By: #### L [id number], LAB17 #### [facility] 1 , Hematocrit (Bld) [Volume fraction] 43.8 % Normal 34.0-46.6 [facility] Comment on above: Performed By: #### L [id number], LAB17 #### [facility] 1 , HEMOGLOBIN [facility] 14.9 g/dL Normal 11.1-15.9 [facility] Comment on above: Performed By: #### L [id number], LAB17 #### [facility] 1 , IMMATURE GRANS (ABS) 0.0 x10E3/uL Normal 0.0-0.1 [facility] Comment on above: Performed By: #### L [id number], LAB17 #### [facility] 1 , Immature granulocytes/100 WBC (Bld) 0 % Normal Not Estab. [facility] Comment on above: Performed By: #### L [id number], LAB17 #### [facility] 1 , Lymphocytes (Bld) [#/Vol] 2.4 10*3/uL Normal 0.7-3.1 [facility] Comment on above: Performed By: #### L [id number], LAB17 #### [facility] 1 , Lymphocytes/100 WBC (Bld) 26 % Normal Not Estab. [facility] Comment on above: Performed By: #### L [id number], LAB17 #### [facility] 1 , MCH (RBC) [Entitic mass] 31.2 pg Normal 26.6-33.0 [facility] Comment on above: Performed By: #### L [id number], LAB17 #### [facility] 1 , MCHC (RBC) [Mass/Vol] 34.0 g/dL Normal 31.5-35.7 [facility] Comment on above: Performed By: #### L [id number], LAB17 #### [facility] 1 , MCV [facility] 92 fL Normal 79-97 [facility] Comment on above: Performed By: #### L [id number], LAB17 #### [facility] 1 , Monocytes (Bld) [#/Vol] 0.5 10*3/uL Normal 0.1-0.9 [facility] Comment on above: Performed By: #### L [id number], LAB17 #### [facility] 1 , Monocytes/100 WBC (Bld) 6 % Normal Not Estab. [facility] Comment on above: Performed By: #### L AB293, LAB17 #### [facility] 1 , NEUTROPHIL ABS AUTO [facility] 6.1 x10E3/uL Normal 1.4-7.0 [facility] Comment on above: Performed By: #### L [id number], LAB17 #### [facility] 1 , NEUTROPHILS RELATIVE AUTO [facility] 64 % Normal Not Estab. [facility] Comment on above: Performed By: #### L AB293, LAB17 #### [facility] 1 , PLATELET COUNT [facility] 336 x10E3/uL Normal 150-450 [facility] Comment on above: Performed By: #### L [id number], LAB17 #### [facility] 1 , RED BLOOD CELL COUNT [facility] 4.77 x10E6/uL Normal 3.77-5.28 [facility] Comment on above: Performed By: #### L [id number], LAB17 #### [facility] 1 , WBC (Bld) [#/Vol] 9.4 10*3/uL Normal 3.4-10.8 [facility] Comment on above: Performed By: #### L AB293, LAB17 #### [facility] 1 , COMPREHENSIVE METABOLIC PANE Bulmaro 08-09-2020 Albumin [Mass/Vol] 4.8 g/dL Normal 3.8-4.8 [facility] Comment on above: Order Comment: Relea se to patient->Immediate Performed By: #### L AB293, LAB17 #### [facility] 1 , Albumin/Globulin [Mass ratio] 1.7 {ratio} Normal 1.2-2.2 [facility] Comment on above: Order Comment: Relea se to patient->Immediate Performed By: #### L AB293, LAB17 #### [facility] 1 , ALP [Catalytic activity/Vol] 74 U/L Normal 48-121 [facility] Comment on above: Order Comment: Relea se to patient->Immediate Result Comment: Pl ease note reference interval change Performed By: #### L AB293, LAB17 #### [facility] 1 , ALT [Catalytic activity/Vol] 13 U/L Normal 0-32 [facility] Comment on above: Order Comment: Relea se to patient->Immediate Result Comment: Perf ormed At: [address] [id number] Aletha Menendez PhD [id number] Performed By: #### L [id number], LAB17 #### [facility] 1 , AST [Catalytic activity/Vol] 17 U/L Normal 0-40 [facility] Comment on above: Order Comment: Relea se to patient->Immediate Performed By: #### L AB293, LAB17 #### [facility] 1 , Bilirubin [Mass/Vol] 0.2 mg/dL Normal 0.0-1.2 [facility] Comment on above: Order Comment: Relea se to patient->Immediate Performed By: #### L AB293, LAB17 #### [facility] 1 , Calcium [Mass/Vol] 9.9 mg/dL Normal 8.7-10.2 [facility] Comment on above: Order Comment: Relea se to patient->Immediate Performed By: #### L AB293, LAB17 #### [facility] 1 , Chloride [Moles/Vol] 102 mmol/L Normal 96-106 [facility] Comment on above: Order Comment: Relea se to patient->Immediate Performed By: #### L AB293, LAB17 #### [facility] 1 , CO2 [Moles/Vol] 22 mmol/L Normal 20-29 [facility] Comment on above: Order Comment: Relea se to patient->Immediate Performed By: #### L AB293, LAB17 #### [facility] 1 , Creatinine [Mass/Vol] 0.85 mg/dL Normal 0.57-1.00 [facility] Comment on above: Order Comment: Relea se to patient->Immediate Performed By: #### L AB293, LAB17 #### [facility] 1 , EGFR IF NONAFRICN AM 82 mL/min/1.73 Normal >59 [facility] Comment on above: Order Comment: Relea se to patient->Immediate Performed By: #### L [id number], LAB17 #### [facility] 1 , GFR/1.73 sq M.predicted among blacks MDRD (S/P/Bld) [Vol rate/Area] 94 mL/min/{1.73_m2} Normal >59 [facility] Comment on above: Order Comment: Relea se to patient->Immediate Result Comment: [facility] currently reports eGFR in compliance with the current recommendations of the [employer] Kid[employer]. [facility] will update reporting as new guidelines are published from the NKF-ASN Task force. Performed By: #### L AB293, LAB17 #### [facility] 1 , Globulin (S) [Mass/Vol] 2.9 g/dL Normal 1.5-4.5 [facility] Comment on above: Order Comment: Relea se to patient->Immediate Performed By: #### L AB293, LAB17 #### [facility] 1 , Glucose [Mass/Vol] 91 mg/dL Normal 65-99 [facility] Comment on above: Order Comment: Relea se to patient->Immediate Performed By: #### L AB293, LAB17 #### [facility] 1 , Potassium [Moles/Vol] 4.2 mmol/L Normal 3.5-5.2 [facility] Comment on above: Order Comment: Relea se to patient->Immediate Performed By: #### L AB293, LAB17 #### [facility] 1 , Protein [Mass/Vol] 7.7 g/dL Normal 6.0-8.5 [facility] Comment on above: Order Comment: Relea se to patient->Immediate Performed By: #### L AB293, LAB17 #### [facility] 1 , Sodium [Moles/Vol] 139 mmol/L Normal 134-144 [facility] Comment on above: Order Comment: Relea se to patient->Immediate Performed By: #### L AB293, LAB17 #### [facility] 1 , Urea nitrogen [Mass/Vol] 14 mg/dL Normal - [facility] Comment on above: Order Comment: Relea se to patient->Immediate Performed By: #### L AB293, LAB17 #### [facility] 1 , Urea nitrogen/Creatinine [Mass ratio] 16 mg/mg Normal - [facility] Comment on above: Order Comment: Relea se to patient->Immediate Performed By: #### L AB293, LAB17 #### [facility] 1 , Vital Signs Date Time Vital Sign Value Performing Clinician Rip siu 01-06-2024 11:03-0400 Body height 157.5 cm Travis Bowser MD Work Phone: [facility] 01-06-2024 11:03-0400 Body mass index (BMI) [Ratio] 38.59 kg/m2 Travis Bowser MD Work Phone: [facility] 01-06-2024 11:03-0400 Body weight 95.71 kg Travis Bowser MD Work Phone: [facility] 01-06-2024 11:03-0400 Diastolic blood pressure 79 mm[Hg] Travis Bowser MD Work Phone: [facility] 01-06-2024 11:03-0400 Heart rate 70 /min Travis Bowser MD Work Phone: [facility] 01-06-2024 11:03-0400 SaO2% (BldA) [Mass fraction] 93 % Travis Bowser MD Work Phone: [facility] 01-06-2024 11:03-0400 Systolic blood pressure 127 mm[Hg] Travis Bowser MD Work Phone: [facility] 12-09-2023 13:25-0400 Diastolic blood pressure 68 mm[Hg] DEWAYNE Hernadez Work Phone: [facility] 12-09-2023 13:25-0400 Heart rate 66 /min APPLIANCE MECHANIC-C Claudine Kastor Work Phone: [facility] 12-09-2023 13:25-0400 Respiratory rate 18 /min APPLIANCE MECHANIC-C Claudine Kastor Work Phone: [facility] 12-09-2023 13:25-0400 SaO2% (BldA) [Mass fraction] 100 % APPLIANCE MECHANIC-C Claudine Kastor Work Phone: [facility] 12-09-2023 13:25-0400 Systolic blood pressure 128 mm[Hg] APPLIANCE MECHANIC-C Claudine Kastor Work Phone: [facility] 12-09-2023 10:51-0400 Body height 157.48 cm APPLIANCE MECHANIC-C Claudine Kastor Work Phone: [facility] 12-09-2023 10:51-0400 Body weight 97.52 kg APPLIANCE MECHANIC-C Claudine Kastor Work Phone: [facility] 11-06-2023 08:51-0400 Body height 157.48 cm APPLIANCE MECHANIC-C Claudine Kastor Work Phone: [facility] 11-06-2023 08:51-0400 Body weight 97.06 kg APPLIANCE MECHANIC-C Claudine Kastor Work Phone: [facility] Encounters Encounter Date Encounter Type Care Provider Facility Start: 04-30-2024 End: 04-30-2024 ambulatory J[facility] Start: 04-01-2024 End: 04-01-2024 ambulatory None Provider Facility:[facility] Start: 03-31-2024 End: 04-01-2024 ambulatory Lesley Lanza APRN-BOOM WORKER Facility:[facility] Start: 03-15-2024 End: 03-15-2024 ambulatory Khushbu Hernandez Facility:[facility] Start: 03-15-2024 End: 03-15-2024 Departed Referred Khushbu Hernandez DO Work Phone: [facility] Start: 02-27-2024 End: 02-27-2024 ambulatory None Provider Facility:[facility] Start: 02-27-2024 End: 02-27-2024 ambulatory Murali Waterman MD Facility:[facility] Start: 02-11-2024 End: 02-11-2024 ambulatory None Provider Facility:[facility] Start: 02-05-2024 End: 02-05-2024 ambulatory None Provider Facility:[facility] Start: 02-05-2024 End: 02-05-2024 ambulatory Lesley Yuli Myla RECESSING MACHINE OPERATOR-BOOM WORKER Facility:[facility] Start: 01-30-2024 End: 02-03-2024 Refill Romeo Colon APRN-BOOM WORKER Work Phone: [facility] Comment on above: Med Refill Start: 01-30-2024 End: 01-30-2024 ambulatory None Provider Facility:[facility] Start: 01-29-2024 End: 01-29-2024 ambulatory Murali Waterman MD Facility:[facility] Start: 01-06-2024 End: 01-06-2024 ambulatory TRAVIS BOWSER [facility] Start: 01-06-2024 End: 01-06-2024 Office outpatient visit 25 minutes Travis Bowser MD Work Phone: [facility] Comment on above: Primary hypertension (Primary Dx); Left ventricular failure (CMS-HCC); 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); Shortness of breath; Acute systolic congestive heart failure (CMS-HCC); Acute on chronic HFrEF (heart failure with reduced ejection fraction) ([facility]-HCC) Start: 01-05-2024 End: 01-09-2024 ambulatory None Provider Facility:[facility] Start: 01-02-2024 End: 01-02-2024 Telephone encounter Michelle Goodwin MA [facility] Start: 01-01-2024 End: 01-07-2024 Refill Josi Ba MD Work Phone: [facility] Comment on above: Med Refill Start: 12-26-2023 End: 12-26-2023 Telephone encounter Mary Vance CMA [facility] Start: 12-22-2023 Registered Recurring APPLIANCE MECHANIC-C Claudinerod Godfreyjose Work Phone: [facility] Start: 12-22-2023 ambulatory Claudine Rhodes acility:[facility] Start: 12-17-2023 Non-patient / Non-visit APPLIANCE MECHANIC-C Claudine Satya Work Phone: [facility] Work Phone: Start: 12-12-2023 End: 12-12-2023 ambulatory None Provider Facility:[facility] Start: 12-12-2023 End: 12-12-2023 ambulatory Murali Waterman MD Facility:[facility] Start: 12-09-2023 Non-patient / Non-visit APPLIANCE MECHANIC-C Claudine Satya Work Phone: [facility] Work Phone: Start: 12-09-2023 End: 12-09-2023 Admission to same day surgery center APPLIANCE MECHANIC-C Claudine Satya Work Phone: [facility] Work Phone: Start: 12-09-2023 End: 12-09-2023 ambulatory APPLIANCE MECHANIC-C Claudine Hernadez Work Phone: [facility] Work Phone: Start: 12-04-2023 End: 12-05-2023 Refill Zara Bazan RECESSING MACHINE OPERATOR-BOOM WORKER Work Phone: [facility] Start: 11-27-2023 End: 11-27-2023 ambulatory None Provider Facility:[facility] Start: 11-27-2023 End: 11-27-2023 ambulatory Lesley Lanza RECESSING MACHINE OPERATOR-BOOM WORKER Facility:[facility] Start: 11-06-2023 End: 11-06-2023 ambulatory APPLIANCE MECHANIC-C Claudine Hernadez Work Phone: [facility] Work Phone: Start: 11-06-2023 End: 11-06-2023 Departed Referred APPLIANCE MECHANIC-C Claudine Hernadez Work Phone: [facility] Work Phone: Start: 11-03-2023 End: 11-05-2023 Refill Aubrey Sanchez RECESSING MACHINE OPERATOR-BOOM WORKER Work Phone: [facility] Comment on above: Med Refill Start: 10-09-2023 End: 10-10-2023 Refill Germnaia Hameed RN [facility] Comment on above: Med Refill Start: 09-29-2023 Non-patient / Non-visit APPLIANCE MECHANIC-Coleen Hernadez Work Phone: [facility] Work Phone: Start: 09-01-2023 End: 09-01-2023 ambulatory None Provider Facility:[facility] Start: 08-15-2023 End: 08-18-2023 Refill Janell Rivera RECESSING MACHINE OPERATOR-BOOM WORKER Work Phone: [facility] Comment on above: Med Refill Start: 07-24-2023 End: 07-25-2023 Emergency department patient visit None Provider Facility:[facility] Start: 07-21-2023 End: 07-21-2023 Emergency department patient visit None Provider Facility:[facility] Start: 07-07-2023 End: 07-07-2023 ambulatory [facility] Start: 06-16-2023 End: 06-16-2023 ambulatory Kendrick Aguilar MD Facility: [facility] Start: 05-26-2023 End: 05-27-2023 [facility] Start: 05-16-2023 End: 06-16-2023 ambulatory JAMAR M SHADY [facility] Start: 05-14-2023 End: 05-15-2023 ambulatory JOSI BA [facility] Start: 05-08-2023 End: 05-09-2023 ambulatory TYRON WAGNER [facility] Start: 05-07-2023 Refill Josi Ba MD Work Phone: [facility] Start: 05-01-2023 End: 05-16-2023 ambulatory JAMAR CARUSO [facility] Comment on above: Encounter for screen ing mammogram for malignant neoplasm of breast (Primary Dx) Start: 04-03-2023 Refill Hiro Kaba RN [facility] Start: 03-07-2023 Refill Aubrey Velazquez sser RECESSING MACHINE OPERATOR-BOOM WORKER Work Phone: [facility] Comment on above: Med Refill Start: 03-06-2023 Refill Josi Ba MD Work Phone: [facility] Comment on above: Primary hypertension ; Combined systolic and diastolic congestive heart failure, unspecified HF chronicity (CMS-HCC); Acute combined systolic and diastolic congestive heart failure (CMS-HCC); Cardiomegaly Start: 07-29-2022 End: 07-29-[address] KHUSHBU HERNANDEZ . Facility:[facility] Start: 07-15-2022 End: 07-15-2022 ambulatory ROBERT DIAS Facility:[facility] Start: 07-10-2022 ambulatory EDILSON~[id number] KENNA PIERSON EDILSON [facility] Start: 06-18-2022 End: 06-19-[address] KHUSHBU HERNANDEZ . Facility:[facility] Start: 06-14-2022 ambulatory EDILSON~[id number] KENNA PIERSON EDILSON [facility] Start: 06-14-2022 End: 06-14-[address] KHUSHBU HERNANDEZ . Facility:[facility] Start: 06-09-2022 End: 06-09-2022 ambulatory PENNY MASON . Facility:[facility] Start: 05-14-2022 ambulatory EDILSON~[id number] KENNA WAGGONER [facility] Start: 05-11-2022 End: 05-11-[address] ISACC SABA Facility:[facility] Start: 04-22-2022 End: 04-22-[address] YOLIS ARDON . Facility:[facility] Start: 04-03-2022 End: 04-03-2022 ambulatory ROBERT DIAS Facility:[facility] Start: 01-22-2022 End: 01-22-2022 ambulatory ALVAOlivia DIETZ Facility:[facility] Start: 12-22-2021 End: 12-22-2021 ambulatory ALVA MIRELA Facility:[facility] Start: 11-06-2021 End: 11-07-2021 ambulatory ALVA MIRELA Facility:[facility] Start: 09-13-2021 End: 09-14-2021 ambulatory ALVA MIRELA Facility:[facility] Procedures Date Procedure Procedure Detail Performing Clinician Start: 01-06-2024 Follow-up visit Follow-up BOLIVAR BOWSER Start: 12-09-2023 Screening colonoscopy N P-C Claudine Hernadez Work Phone: Start: 05-14-2023 Mammography Janell Rivera RECESSING MACHINE OPERATOR-BOOM WORKER Work Phone: Start: 09-14-2022 Adult depression scr eening assessment Aubrey Sanchez RECESSING MACHINE OPERATOR-BOOM WORKER Work Phone: Start: 05-09-2022 Mammography Aubrey byers RECESSING MACHINE OPERATOR-BOOM WORKER Work Phone: Plan of Treatment Date Care Activity Detail Author Start: 05-14-2025 Screening for malign ant neoplasm of breast Mammogram [facility] Start: 01-05-2025 Adult [facility] Start: 05-14-2024 Adult BMI Screening Adult BMI Screen ing [employer] [facility] Start: 05-09-2024 Screening for malign ant neoplasm of breast [facility] Start: 03-15-2024 Group A Streptococcu s Culture Group A Streptococcus Culture [facility] Start: 02-02-2024 Tobacco Counseling Tobacco Counselin g [facility] Start: 01-06-2024 End: 01-05-2025 Echo complete W/O contrast Echo complete W/O contrast Echocardiography Routine Primary hypertension Left ventricular failure (CMS-HCC) 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) Shortness of breath Expected: 01/06/2024, Expires: 01/05/2025 [email or web address] Work Phone: Comment on above: Expected: 01/06/2024 , Expires: 01/05/2025 Start: 01-06-2024 End: 01-05-2025 NM Heart Perfusion W stress and W radionuclide IV Nuc stress [facility] Routine Primary hypertension Left ventricular failure (CMS-HCC) 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) Shortness of breath Expected: 01/06/2024, Expires: 01/05/2025 [facility] Comment on above: Expected: 01/06/2024 , Expires: 01/05/2025 Start: 01-06-2024 End: 01-06-2024 Patient encounter procedure 01/06/2024 11:00 AM EDT Office Visit [facility] [address] [place] [phone] Travis Bowser MD [address] [place] [address] [facility] Start: 12-09-2023 [facility] Start: 11-29-2023 Adult BMI Screening Adult BMI Screen ing [facility] [employer] [facility] Start: 11-29-2023 Tobacco Screening Tobacco Screening [facility] [employer] [employer] [facility] Start: 11-16-2023 COVID-19 Vaccine ( season) COVID-19 Vaccine ( season) [facility] Start: 11-16-2023 COVID-19 Vaccine ( season) COVID-19 Vaccine ( season) [facility] [employer] [facility] Start: 11-16-2023 Influenza vaccination Influenza Vacc ine [facility] Start: 09-15-2023 Depression Screening [facility] Start: 06-16-2023 End: 06-16-2023 Patient encounter procedure 06/16/2023 3:00 PM EDT Office Visit [facility] [phone] [place] [phone] Anusha Roberto MD [facility] [address] [place] [id number] [facility] Start: 05-26-2023 Administration of varicella zoster vaccine Zoster (Shingles) Vaccine (1 of 2) [facility] Start: 05-14-2023 End: 05-14-2023 Patient encounter procedure 05/14/2023 3:15 PM EST Appointment [facility] - M[facility]ogram DEXA [address] [place] [id number] [facility] DEXA Start: 05-12-2023 End: 05-12-2023 Patient encounter procedure 05/12/2023 2:45 PM EST Appointment [facility] [address] [place] [phone] Arrived [facility] Comment on above: Arrived Start: 05-08-2023 Subsequent hospital visit by physician [facility] Start: 05-01-2023 End: 05-01-2024 DBT Breast - bilateral screening Mammography screening bilateral with CAD Imaging Routine Encounter for screening mammogram for malignant neoplasm of breast Expected: 05/01/2023, Expires: 05/01/2024 Shilo Work Phone: Comment on above: Expected: 05/01/2023 , Expires: 05/01/2024 Start: 03-31-2023 End: 03-31-2023 Patient encounter procedure 03/31/2023 11:00 AM EST Office Visit [facility] [address] [place] [phone] Tyron Wagner PA [address] [place] [phone] [facility] Start: 03-24-2023 End: 03-24-2023 Patient encounter procedure [facility] Start: 11-15-2022 COVID-19 Vaccine ( season) COVID-19 Vaccine ( season) [facility] [employer] [facility] Start: 11-15-2022 Influenza vaccination Influenza Vacc ine [facility] Start: 05-26-1991 Adult BMI Follow Up Plan Adult BMI F ollow Up Plan [facility] Start: 1984 DTaP,Tdap and Td Vaccines (5 - Tdap) DTaP,Tdap and Td Vaccines (5 [facility]ap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 Occurrences starting 10/10/2023 until 10/08/2024 [facility] Comment on above: 1 Occurrences starti ng 10/10/2023 until 10/08/2024 End: 10-08-2024 Lipid panel Lipid panel Lab Routine 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 Occurrences starting 10/10/2023 until 10/08/2024 [facility] Comment on above: 1 Occurrences starti ng 10/10/2023 until 10/08/2024 End: 10-08-2024 Magnesium [Mass/volume] in Serum or Plasma Magnesium Lab Routine 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 Occurrences starting 10/10/2023 until 10/08/2024 [facility] Comment on above: 1 Occurrences starti ng 10/10/2023 until 10/08/2024 Patient Education Colon Polypect eduardo (DC) Know your Meds [facility] Work Phone: Immunizations Immunization Date Immunization Notes Care Provider Sabrina richey 05-15-2021 influenza, seasonal, injectable Mischell Laura RECESSING MACHINE OPERATOR-BOOM WORKER Work Phone: [facility] 05-15-2021 influenza virus vaccine, unspecified formulation Mischell Laura RECESSING MACHINE OPERATOR-BOOM WORKER Work Phone: [facility] 01-02-2021 Influenza, injectabl e, Madin Fernanda Canine Kidney, quadrivalent with preservative Mischell Laura RECESSING MACHINE OPERATOR-BOOM WORKER Work Phone: [facility] 11-14-2020 COVID-19, mRNA, LNP- S, PF, 30mcg/0.3mL Dose Mischell Laura RECESSING MACHINE OPERATOR-BOOM WORKER Work Phone: [facility] 11-26-2018 influenza, injectabl e, quadrivalent, preservative free Mischell Laura RECESSING MACHINE OPERATOR-BOOM WORKER Work Phone: [facility] 12-03-2007 hepatitis B vaccine, adult dosage Mischell Laura RECESSING MACHINE OPERATOR-BOOM WORKER Work Phone: [facility] 08-27-2007 hepatitis B vaccine, adult dosage Mischell Laura RECESSING MACHINE OPERATOR-BOOM WORKER Work Phone: [facility] 07-27-2007 hepatitis B vaccine, adult dosage Mischell Laura RECESSING MACHINE OPERATOR-BOOM WORKER Work Phone: [facility] 04-16-1982 measles, mumps and rubella virus vaccine Mischell Laura RECESSING MACHINE OPERATOR-BOOM WORKER Work Phone: [facility] 10-31-1978 diphtheria, tetanus toxoids and pertussis vaccine Mischell Laura RECESSING MACHINE OPERATOR-BOOM WORKER Work Phone: [facility] 10-31-1978 poliovirus vaccine, unspecified formulation Mischell Laura RECESSING MACHINE OPERATOR-BOOM WORKER Work Phone: [facility] 12-01-1976 poliovirus vaccine, unspecified formulation Mischell Laura RECESSING MACHINE OPERATOR-BOOM WORKER Work Phone: [facility] 07-05-1975 diphtheria, tetanus toxoids and pertussis vaccine Mischell Laura RECESSING MACHINE OPERATOR-BOOM WORKER Work Phone: [facility] 07-05-1975 poliovirus vaccine, unspecified formulation Mischell Laura RECESSING MACHINE OPERATOR-BOOM WORKER Work Phone: [facility] 09-29-1974 diphtheria, tetanus toxoids and pertussis vaccine Mischell Laura RECESSING MACHINE OPERATOR-BOOM WORKER Work Phone: [facility] 09-29-1974 measles, mumps and rubella virus vaccine Mischell Laura RECESSING MACHINE OPERATOR-BOOM WORKER Work Phone: [facility] 09-29-1974 poliovirus vaccine, unspecified formulation Mischell Laura RECESSING MACHINE OPERATOR-BOOM WORKER Work Phone: [facility] 08-03-1974 diphtheria, tetanus toxoids and pertussis vaccine Mischell Laura RECESSING MACHINE OPERATOR-BOOM WORKER Work Phone: [facility] 08-03-1974 poliovirus vaccine, unspecified formulation Mischell Laura RECESSING MACHINE OPERATOR-BOOM WORKER Work Phone: [facility] Payers Date Payer Category Payer Self-pay 2023 Unknown 2022 Medicaid [id number] 2022 Medicaid [id number] 1975 Unknown [id number] 2.16.84 0.1.301045.3.579.2.593 1975 Unknown [id number] 2.16.84 0.1.099304.3.579.2.593 1973 Unknown [id number] 2.16.84 0.1.254476.3.579.2.593 1973 Unknown [id number] 2.16.84 0.1.434157.3.579.2.593 1973 Unknown [id number] 2.16.84 0.1.155698.3.579.2.593 1973 Unknown [id number] 2.16.84 0.1.954142.3.579.2.593 1973 Unknown [id number] 2.16.84 0.1.159758.3.579.2.593 1973 Unknown [id number] 2.16.84 0.1.902969.3.579.2.593 1973 Unknown [id number] 2.16.84 0.1.409394.3.579.2.593 1973 Unknown [id number] 2.16.84 0.1.165913.3.579.2.593 1973 Unknown [id number] 2.16.84 0.1.663646.3.579.2.593 1973 Unknown [id number] 2.16.84 0.1.448291.3.579.2.593 1973 Unknown [id number] 2.16.8 40.1.969068.3.579.2.1286 1973 Unknown [id number] 2.16.8 40.1.806502.3.579.2.1286 1973 Unknown [id number] 2.16.8 40.1.642905.3.579.2.128 1973 Unknown [id number] 2.16.8 40.1.963244.3.579.2.128 1973 Unknown [id number] 2.16.8 40.1.500708.3.579.2.128 1973 Unknown [id number] 2.16.8 40.1.209183.3.579.2.128 1973 Unknown [id number] 2.16.8 40.1.064090.3.579.2.128 1973 Unknown [id number] 2.16. 840.1.135590.3.579.2.196 1973 Unknown [id number] 2.16. 840.1.679979.3.579.2.196 1973 Unknown [id number] 2.16. 840.1.121094.3.579.2. 1973 Unknown [id number] 2.16. 840.1.192338.3.579.2. 1973 Unknown [id number] 2.16. 840.1.613100.3.579.2. 1973 Unknown [id number] 2.16. 840.1.941386.3.579.2. 1973 Unknown [id number] 2.16. 840.1.640162.3.579.2. 1973 Unknown [id number] 2.16. 840.1.457811.3.579.2. 1973 Unknown [id number] 2.16.8 40.1.017735.3.579.2. 1973 Unknown [id number] 2.16.8 40.1.010446.3.579.2. 1973 Unknown [id number] 2.16.8 40.1.722021.3.579.2. 1973 Unknown [id number] 2.16.8 40.1.737662.3.579.2. 1973 Unknown [id number] 2.16.8 40.1.891326.3.579.2. 1973 Unknown [id number] 2.16.8 40.1.952928.3.579.2. 1973 Unknown [id number] 2.16.8 40.1.939009.3.579.2. 1973 Unknown [id number] 2.16.8 40.1.070087.3.579.2. 1973 Unknown [id number] 2.16.8 40.1.747702.3.579.2.718 1973 Unknown [id number] 2.16.8 40.1.664278.3.579.2.718 1973 Unknown [id number] 2.16.8 40.1.172601.3.579.2.718 1973 Unknown [id number] 2.16.8 40.1.786570.3.579.2.718 1959 Unknown [id number] Private Health Insurance [id number] Unknown [id number] 2.16.8 40.1.531634.3.579.2.531 Unknown [id number] 2.16.8 40.1.614790.3.579.2.531 Unknown [id number] 2.16.8 40.1.107411.3.579.2.531 Unknown [id number] 2.16.8 40.1.473174.3.579.2.531 Social History Date Type Detail Facility Start: 12-09-2023 End: 12-09-2023 Tobacco smoking status NHIS Smoker (finding) [facility] Start: 1975 Sex Assigned At Female F [facility] Start: 03-17-2024 Sex Patient sex un known (finding) [facility] Start: 08-22-2022 Tobacco smoking stat [facility] Smokes tobacco daily [facility] History of tobacco use Cigarette Smoker P [facility] Start: 08-22-2022 End: 01-06-2024 Cigarettes smoked current (pack per day) - Reported 0.5 [facility] Start: 08-22-2022 Tobacco use and exposure Smoke less tobacco non-user [facility] Start: 11-28-2022 End: 05-14-2023 Alcohol intake Lifetime non-drinker (finding) [facility] Start: 09-14-2022 End: 01-06-2024 Alcohol Use Disorder Identification Test - Consumption [AUDIT-C] [facility] How often to you hav e a drink containing alcohol? Never [facility] How many standard dr inks containing alcohol do you have on a typical day? Patient does not drink [facility] [employer] [facility] Start: 1975 Sex Assigned At Not on file P [employer] [facility] Start: 10-20-2014 Sex Female (finding) [facility] Goals Date Patient Goal Desired Activity /State Personal health goal Comment on above: Formatting of this n ote might be different from the original. Evaluation of progress towards goal: safe transition from PMH to TTH Clinical Notes 08-09-2020 to 03-01-2024 Travis Bowser MD - 01/06/2024 11:00 AM EDTTelephone Encounter - Michelle Goodwin MA - 01/02/2024 11:55 AM EDTTelephone Encounter - Michelle Goodwin MA - 01/02/2024 11:55 AM EDT Note Date & Type Note Facility 03-01-2024 Note [id number] Note [facility] SURGERY Clinical Discharge Summary PERSON INFORMATION Name CHINMAY KNIGHT Age 48 Years 1975 Sex FEMALE Language Kuwaiti PCP Provider, None Marital Status Other Med Service Pain Management Surgery Acct# Arrival 02/27/2024 06:37:50 Visit Reason LUMBAR PAIN Acuity LOS 007 17:50 Address: [address] [place] [address] Comment: PROVIDER INFORMATION VITALS INFORMATION Vital Sign Triage Latest Temp Oral Temp Temporal Temp Intravascular Temp Axillary Temp Rectal 02 Sat 100 % 100 % Respiratory Rate Peripheral Pulse Rate Apical Heart Rate Blood Pressure / 87 mmHg / 87 mmHg Comment: MEDICAL INFORMATION Allergy Info: Keflex; codeine Prescriptions Given: aspirin (Aspirin Low Dose 81 mg oral delayed release tablet) 1 tab(s) Oral (given by mouth) every day. bumetanide (bumetanide 0.5 mg oral tablet) 1 tab(s) Oral (given by mouth) 2 times per day. empagliflozin (Jardiance 10 mg oral tablet) 1 tab(s) Oral (given by mouth) once a day (in the morning). isosorbide mononitrate (isosorbide mononitrate 30 mg oral tablet, extended release) 1 tab(s) Oral (given by mouth) once a day (in the morning). metFORMIN (metFORMIN 500 mg oral tablet) 1 tab(s) Oral (given by mouth) 2 times per day. metoprolol (Metoprolol Succinate ER 100 mg oral tablet, extended release) 1 tab(s) Oral (given by mouth) every day. omeprazole (omeprazole 40 mg oral delayed release capsule) 1 cap(s) Oral (given by mouth) every day. pregabalin (pregabalin 100 mg oral capsule) 1 cap(s) Oral (given by mouth) 3 times per day for 30 Days. Refills: 0., OARRS reviewed 02/05/2024 rosuvastatin (rosuvastatin 10 mg oral tablet) 1 tab(s) Oral (given by mouth) every day. spironolactone (spironolactone 25 mg oral tablet) 1 tab(s) Oral (given by mouth) every day. Medication List: Medications to Continue That Have Not Changed Other Medications aspirin (Aspirin Low Dose 81 mg oral delayed release tablet) 1 tab(s) Oral (given by mouth) every day. bumetanide (bumetanide 0.5 mg oral tablet) 1 tab(s) Oral (given by mouth) 2 times per day. empagliflozin (Jardiance 10 mg oral tablet) 1 tab(s) Oral (given by mouth) once a day (in the morning). isosorbide mononitrate (isosorbide mononitrate 30 mg oral tablet, extended release) 1 tab(s) Oral (given by mouth) once a day (in the morning). metFORMIN (metFORMIN 500 mg oral tablet) 1 tab(s) Oral (given by mouth) 2 times per day. metoprolol (Metoprolol Succinate ER 100 mg oral tablet, extended release) 1 tab(s) Oral (given by mouth) every day. omeprazole (omeprazole 40 mg oral delayed release capsule) 1 cap(s) Oral (given by mouth) every day. pregabalin (pregabalin 100 mg oral capsule) 1 cap(s) Oral (given by mouth) 3 times per day for 30 Days. Refills: 0. rosuvastatin (rosuvastatin 10 mg oral tablet) 1 tab(s) Oral (given by mouth) every day. spironolactone (spironolactone 25 mg oral tablet) 1 tab(s) Oral (given by mouth) every day. Medications to Continue That Have Not Changed Other Medications aspirin (Aspirin Low Dose 81 mg oral delayed release tablet) 1 tab(s) Oral (given by mouth) every day. bumetanide (bumetanide 0.5 mg oral tablet) 1 tab(s) Oral (given by mouth) 2 times per day. empagliflozin (Jardiance 10 mg oral tablet) 1 tab(s) Oral (given by mouth) once a day (in the morning). isosorbide mononitrate (isosorbide mononitrate 30 mg oral tablet, extended release) 1 tab(s) Oral (given by mouth) once a day (in the morning). metFORMIN (metFORMIN 500 mg oral tablet) 1 tab(s) Oral (given by mouth) 2 times per day. metoprolol (Metoprolol Succinate ER 100 mg oral tablet, extended release) 1 tab(s) Oral (given by mouth) every day. omeprazole (omeprazole 40 mg oral delayed release capsule) 1 cap(s) Oral (given by mouth) every day. pregabalin (pregabalin 100 mg oral capsule) 1 cap(s) Oral (given by mouth) 3 times per day for 30 Days. Refills: 0. rosuvastatin (rosuvastatin 10 mg oral tablet) 1 tab(s) Oral (given by mouth) every day. spironolactone (spironolactone 25 mg oral tablet) 1 tab(s) Oral (given by mouth) every day. Medications to Continue That Have Not Changed Other Medications aspirin (Aspirin Low Dose 81 mg oral delayed release tablet) 1 tab(s) Oral (given by mouth) every day. bumetanide (bumetanide 0.5 mg oral tablet) 1 tab(s) Oral (given by mouth) 2 times per day. empagliflozin (Jardiance 10 mg oral tablet) 1 tab(s) Oral (given by mouth) once a day (in the morning). isosorbide mononitrate (isosorbide mononitrate 30 mg oral tablet, extended release) 1 tab(s) Oral (given by mouth) once a day (in the morning). metFORMIN (metFORMIN 500 mg oral tablet) 1 tab(s) Oral (given by mouth) 2 times per day. metoprolol (Metoprolol Succinate ER 100 mg oral tablet, extended release) 1 tab(s) Oral (given by mouth) every day. omeprazole (omeprazole 40 mg oral delayed release capsule) 1 cap(s) Oral (given by mouth) every day. pregabalin (more content not included)... [facility] 02-26-2024 Note [id number] The patient?s history of present illness, physical findings and plan of care have been reviewed. There are no changes. [Electronically Signed on: 02/27/2024 07:33 EST] MURALI [place] MD [Electronically Signed on: 02/27/2024 07:26 EST] Renee Dean MA [Verified on: 02/27/2024 07:33 EST] MURALI [place] MD [Transcribed on: 02/26/2024 12:31 EST] [facility] 02-02-2024 Note [id number] [facility] 01-30-2024 Note [facility] SURGERY Clinical Discharge Summary PERSON INFORMATION Name CHINMAY KNIGHT Age 48 Years 1975 Sex FEMALE Language Kuwaiti PCP Provider, None Marital Status Other Med Service Pain Management Surgery Acct# Arrival 01/30/2024 09:04:47 Visit Reason LUMBAR PAIN Acuity LOS 003 19:01 Address: [address] [facility] [facility] [address] Comment: PROVIDER INFORMATION VITALS INFORMATION Vital Sign Triage Latest Temp Oral Temp Temporal Temp Intravascular Temp Axillary Temp Rectal 02 Sat 97 % 97 % Respiratory Rate Peripheral Pulse Rate Apical Heart Rate Blood Pressure / 79 mmHg / 79 mmHg Comment: MEDICAL INFORMATION Allergy Info: Keflex; codeine Prescriptions Given: ALPRAZolam (Xanax 0.5 mg oral tablet) take 1-2 tab(s) Oral 1 hour prior to procedure. Refills: 0. aspirin (Aspirin Low Dose 81 mg oral delayed release tablet) 1 tab(s) Oral (given by mouth) every day. bumetanide (bumetanide 0.5 mg oral tablet) 1 tab(s) Oral (given by mouth) 2 times per day. empagliflozin (Jardiance 10 mg oral tablet) 1 tab(s) Oral (given by mouth) once a day (in the morning). fluconazole (Diflucan 150 mg oral tablet) 1 tab(s) Oral (given by mouth) once. Take one tab now and repeat in three days. Refills: 0. isosorbide mononitrate (isosorbide mononitrate 30 mg oral tablet, extended release) 1 tab(s) Oral (given by mouth) once a day (in the morning). metFORMIN (metFORMIN 500 mg oral tablet) 1 tab(s) Oral (given by mouth) 2 times per day. metoprolol (Metoprolol Succinate ER 100 mg oral tablet, extended release) 1 tab(s) Oral (given by mouth) every day. omeprazole (omeprazole 40 mg oral delayed release capsule) 1 cap(s) Oral (given by mouth) every day. pregabalin (Lyrica 100 mg oral capsule) 1 cap(s) Oral (given by mouth) 3 times per day. pregabalin (pregabalin 100 mg oral capsule) 1 cap(s) Oral (given by mouth) 3 times per day for 30 Days. Refills: 0., OARRS reviewed 11/27/23 rosuvastatin (rosuvastatin 10 mg oral tablet) 1 tab(s) Oral (given by mouth) every day. spironolactone (spironolactone 25 mg oral tablet) 1 tab(s) Oral (given by mouth) every day. Medication List: Medications to Continue That Have Not Changed Other Medications ALPRAZolam (Xanax 0.5 mg oral tablet) take 1-2 tab(s) Oral 1 hour prior to procedure. Refills: 0. aspirin (Aspirin Low Dose 81 mg oral delayed release tablet) 1 tab(s) Oral (given by mouth) every day. bumetanide (bumetanide 0.5 mg oral tablet) 1 tab(s) Oral (given by mouth) 2 times per day. empagliflozin (Jardiance 10 mg oral tablet) 1 tab(s) Oral (given by mouth) once a day (in the morning). fluconazole (Diflucan 150 mg oral tablet) 1 tab(s) Oral (given by mouth) once. Take one tab now and repeat in three days. Refills: 0. isosorbide mononitrate (isosorbide mononitrate 30 mg oral tablet, extended release) 1 tab(s) Oral (given by mouth) once a day (in the morning). metFORMIN (metFORMIN 500 mg oral tablet) 1 tab(s) Oral (given by mouth) 2 times per day. metoprolol (Metoprolol Succinate ER 100 mg oral tablet, extended release) 1 tab(s) Oral (given by mouth) every day. omeprazole (omeprazole 40 mg oral delayed release capsule) 1 cap(s) Oral (given by mouth) every day. pregabalin (Lyrica 100 mg oral capsule) 1 cap(s) Oral (given by mouth) 3 times per day. pregabalin (pregabalin 100 mg oral capsule) 1 cap(s) Oral (given by mouth) 3 times per day for 30 Days. Refills: 0. rosuvastatin (rosuvastatin 10 mg oral tablet) 1 tab(s) Oral (given by mouth) every day. spironolactone (spironolactone 25 mg oral tablet) 1 tab(s) Oral (given by mouth) every day. Medications to Continue That Have Not Changed Other Medications ALPRAZolam (Xanax 0.5 mg oral tablet) take 1-2 tab(s) Oral 1 hour prior to procedure. Refills: 0. aspirin (Aspirin Low Dose 81 mg oral delayed release tablet) 1 tab(s) Oral (given by mouth) every day. bumetanide (bumetanide 0.5 mg oral tablet) 1 tab(s) Oral (given by mouth) 2 times per day. empagliflozin (Jardiance 10 mg oral tablet) 1 tab(s) Oral (given by mouth) once a day (in the morning). fluconazole (Diflucan 150 mg oral tablet) 1 tab(s) Oral (given by mouth) once. Take one tab now and repeat in three days. Refills: 0. isosorbide mononitrate (isosorbide mononitrate 30 mg oral tablet, extended release) 1 tab(s) Oral (given by mouth) once a day (in the morning). metFORMIN (metFORMIN 500 mg oral tablet) 1 tab(s) Oral (given by mouth) 2 times per day. metoprolol (Metoprolol Succinate ER 100 mg oral tablet, extended release) 1 tab(s) Oral (given by mouth) every day. omeprazole (omeprazole 40 mg oral delayed release capsule) 1 cap(s) Oral (given by mouth) every day. pregabalin (Lyrica 100 mg oral capsule) 1 cap(s) Oral (given by mouth) 3 times per day. pregabalin (pregabalin 100 mg oral capsule) 1 cap(s) Oral (given by mouth) 3 times per day for 30 Days. Refills: 0. rosuvastatin (rosuvastatin 10 mg oral tablet) 1 tab( (more content not included)... [facility] 01-06-2024 History of Presen t illness Narrative Chinmay Knight Date of visit: 01/06/2024 Date of : 1975 Age: 48 y.o. Patient Active Problem List Diagnosis Knee pain, chronic Degenerative arthritis of left knee Hypertension Morbid obesity ([facility]) Osteoarthritis Depression GERD (gastroesophageal reflux disease) ABBYE (obstructive sleep apnea) Respiratory failure with hypercapnia ([facility]) Combined systolic and diastolic congestive heart failure ([facility]) Left ventricular failure ([facility]) Right arm pain ASCVD (arteriosclerotic cardiovascular disease) Dyslipidemia Acute on chronic HFrEF (heart failure with reduced ejection fraction) ([facility]) Radial artery thrombosis ([facility] Elevated serum creatinine Hypokalemia CHF (congestive heart failure) ([facility]) Occlusion of right radial artery ([facility]) Shortness of breath Allergies Allergen Reactions Codeine [...] Congestive Heart Failure History of Present Illness Chinmay Knight was seen in follow-up in the [facility] office. Records are reviewed. She is a 48-year-old obese woman with diabetes, modest essential hypertension, nonischemic cardiomyopathy, small-vessel obstructive coronary artery disease. She initially presented in August of 2022 with worsening breathlessness pedal edema and chest pain. Echocardiogram revealed ejection fraction on the order of 25-30% with [id number] tricuspid regurgitation and estimates of elevation right-sided pressures. She was transferred to [facility] underwent cardiac catheterization ultimately through a right [...] Diagnosis Date Arthritis CHF (congestive heart failure) ([facility]) Diabetes mellitus type 2, controlled ([facility]) GERD (gastroesophageal reflux disease) Hypertension Obesity Shortness of breath No data recorded No data recorded No data recorded Past Surgical History: Procedure Laterality Date Coronary angiogram and right heart and left ventricular gram/pressure N/A 09/03/2022 Performed by Victor Hugo Jiménez MD at [facility] HYSTERECTOMY OOPHORECTOMY REPLACEMENT TOTAL [...] APRN-LANRE Referring Physician: Josi Ba MD [address] [facility] [place] [address] documented in this encounter [facility] 01-02-2024 Miscellaneous Notes Called patient to remind them to bring their most current copy of their medication list with them to their appt. Patient verbalizes understanding. documented in this encounter [facility] 01-02-2024 Telephone encounter Note Called patient to remind them to bring their most current copy of their medication list with them to their appt. Patient verbalizes understanding. [facility] 01-01-2024 Miscellaneous Notes Discontinued at visit with FRS on 01/05 documented in this encounter [facility] 01-01-2024 Telephone encounter Note Discontinued at visit with FRS on 01/05 [facility] 12-26-2023 Miscellaneous Notes [facility] TO [facility]EDU[facility] APPT. documented in this encounter [facility] 12-26-2023 Telephone encounter Note PHONED PT TO SCHEDULE APPT [facility] MISAEL ON VM TO CALL OFFICE TO SCHEDULE APPT. [facility] 12-22-2023 Note Patient called repor ting her relief obtained after the procedure performed on 12/12/2023. Patient states she felt greater than 80% relief for two hours after the procedure. [Electronically Signed on: 12/22/2023 15:12 EDT] Agatha Solorzano [Verified on: 12/22/2023 15:12 EDT] Agatha Solorzano [facility] 12-15-2023 Note [id number] [facility] 12-12-2023 Note [facility] SURGERY Clinical Discharge Summary PERSON INFORMATION Name CHINMAY KNIGHT Age 48 Years 1975 Sex FEMALE Language Kuwaiti PCP Provider, None Marital Status Other Med Service Pain Management Surgery Acct# Arrival 12/12/2023 11:37:50 Visit Reason LUMBAR PAIN Acuity LOS 002 02:44 Address: [address] [facility] [place] [id number] Comment: PROVIDER INFORMATION VITALS INFORMATION Vital Sign Triage Latest Temp Oral Temp Temporal Temp Intravascular Temp Axillary Temp Rectal 02 Sat 96 % 96 % Respiratory Rate Peripheral Pulse Rate Apical Heart Rate Blood Pressure / 81 mmHg / 81 mmHg Comment: MEDICAL INFORMATION Allergy Info: Keflex; codeine Prescriptions Given: apixaban (Eliquis 5 mg oral tablet) 1 tab(s) Oral (given by mouth) 2 times per day. aspirin (Aspirin Low Dose 81 mg oral delayed release tablet) 1 tab(s) Oral (given by mouth) every day. bumetanide (bumetanide 0.5 mg oral tablet) 1 tab(s) Oral (given by mouth) 2 times per day. empagliflozin (Jardiance 10 mg oral tablet) 1 tab(s) Oral (given by mouth) once a day (in the morning). fluconazole (Diflucan 150 mg oral tablet) 1 tab(s) Oral (given by mouth) once. Take one tab now and repeat in three days. Refills: 0. isosorbide mononitrate (isosorbide mononitrate 30 mg oral tablet, extended release) 1 tab(s) Oral (given by mouth) once a day (in the morning). metoprolol (Metoprolol Succinate ER 100 mg oral tablet, extended release) 1 tab(s) Oral (given by mouth) every day. omeprazole (omeprazole 40 mg oral delayed release capsule) 1 cap(s) Oral (given by mouth) every day. pregabalin (Lyrica 100 mg oral capsule) 1 cap(s) Oral (given by mouth) 3 times per day. pregabalin (pregabalin 100 mg oral capsule) 1 cap(s) Oral (given by mouth) 3 times per day for 30 Days. Refills: 0., [facility] reviewed 11/27/23 rosuvastatin (rosuvastatin 10 mg oral tablet) 1 tab(s) Oral (given by mouth) every day. spironolactone (spironolactone 25 mg oral tablet) 1 tab(s) Oral (given by mouth) every day. Medication List: Medications to Continue That Have Not Changed Other Medications apixaban (Eliquis 5 mg oral tablet) 1 tab(s) Oral (given by mouth) 2 times per day. aspirin (Aspirin Low Dose 81 mg oral delayed release tablet) 1 tab(s) Oral (given by mouth) every day. bumetanide (bumetanide 0.5 mg oral tablet) 1 tab(s) Oral (given by mouth) 2 times per day. empagliflozin (Jardiance 10 mg oral tablet) 1 tab(s) Oral (given by mouth) once a day (in the morning). fluconazole (Diflucan 150 mg oral tablet) 1 tab(s) Oral (given by mouth) once. Take one tab now and repeat in three days. Refills: 0. isosorbide mononitrate (isosorbide mononitrate 30 mg oral tablet, extended release) 1 tab(s) Oral (given by mouth) once a day (in the morning). metoprolol (Metoprolol Succinate ER 100 mg oral tablet, extended release) 1 tab(s) Oral (given by mouth) every day. omeprazole (omeprazole 40 mg oral delayed release capsule) 1 cap(s) Oral (given by mouth) every day. pregabalin (Lyrica 100 mg oral capsule) 1 cap(s) Oral (given by mouth) 3 times per day. pregabalin (pregabalin 100 mg oral capsule) 1 cap(s) Oral (given by mouth) 3 times per day for 30 Days. Refills: 0. rosuvastatin (rosuvastatin 10 mg oral tablet) 1 tab(s) Oral (given by mouth) every day. spironolactone (spironolactone 25 mg oral tablet) 1 tab(s) Oral (given by mouth) every day. Medications to Continue That Have Not Changed Other Medications apixaban (Eliquis 5 mg oral tablet) 1 tab(s) Oral (given by mouth) 2 times per day. aspirin (Aspirin Low Dose 81 mg oral delayed release tablet) 1 tab(s) Oral (given by mouth) every day. bumetanide (bumetanide 0.5 mg oral tablet) 1 tab(s) Oral (given by mouth) 2 times per day. empagliflozin (Jardiance 10 mg oral tablet) 1 tab(s) Oral (given by mouth) once a day (in the morning). fluconazole (Diflucan 150 mg oral tablet) 1 tab(s) Oral (given by mouth) once. Take one tab now and repeat in three days. Refills: 0. isosorbide mononitrate (isosorbide mononitrate 30 mg oral tablet, extended release) 1 tab(s) Oral (given by mouth) once a day (in the morning). metoprolol (Metoprolol Succinate ER 100 mg oral tablet, extended release) 1 tab(s) Oral (given by mouth) every day. omeprazole (omeprazole 40 mg oral delayed release capsule) 1 cap(s) Oral (given by mouth) every day. pregabalin (Lyrica 100 mg oral capsule) 1 cap(s) Oral (given by mouth) 3 times per day. pregabalin (pregabalin 100 mg oral capsule) 1 cap(s) Oral (given by mouth) 3 times per day for 30 Days. Refills: 0. rosuvastatin (rosuvastatin 10 mg oral tablet) 1 tab(s) Oral (given by mouth) every day. spironolactone (spironolactone 25 mg oral tablet) 1 tab(s) Oral (given by mouth) every day. Medications to Continue That Have Not Changed Other Medications apixaban (Eliquis 5 mg oral tablet) 1 tab(s) Oral (given by mouth) 2 times per day. aspirin (Aspirin Low Dose 81 m (more content not included)... [facility] 12-11-2023 Note [id number] The history of present illness has been reviewed. There are no changes document. [Electronically Signed on: 12/12/2023 11:54 EDT] MURALI WATERMAN MD [Verified on: 12/12/2023 11:54 EDT] MURALI WATERMAN MD [Transcribed on: 12/11/2023 13:21 EDT] [facility] 12-09-2023 Procedure note [facility] 11-03-2023 Miscellaneous Notes Please sign and route. Thank you CAITLIN 11/28/22 - Letter mailed documented in this encounter [facility] 11-03-2023 Telephone encounter Note Please sign and route. Thank you CAITLIN 11/28/22 - Letter mailed [facility] 10-09-2023 Miscellaneous Notes Received call from [facility] unsure how a refill was sent with [facility] context, she is a patient of [facility]. OV 11/28/22 CBC and CMP 09/15/22 Labs pended, message sent ot patient in mychart Lab work needs diagnosis. Thanks. 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 OV 11/28/22 CBC and CMP 09/15/22 Labs pended, message sent ot patient in mychart [facility] 10-09-2023 Telephone encounter Note [facility] work needs diagnosis. [facility]. 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 This is a common condition. Some women get this infection frequently. What are the causes? This condition is caused by a change in the normal balance of the yeast (Ana) and normal bacteria that live in the vagina. This change causes an overgrowth of yeast, which causes the inflammation. What increases the risk? The condition is more likely to develop in women who: ? Take antibiotic medicines. ? Have diabetes. ? Take control pills. ? Are . ? Douche often. ? Have a weak body defense system (immune system). ? Have been taking steroid medicines for a long time. ? Frequently wear tight clothing. What are the signs or symptoms? Symptoms of this condition include: ? White, thick, creamy vaginal discharge. ? Swelling, itching, redness, and irritation of the vagina. The lips of the vagina (labia) may be affected as well. ? Pain or a burning feeling while urinating. ? Pain during sex. How is this diagnosed? This condition is diagnosed based on: ? Your medical history. ? A physical exam. ? A pelvic exam. Your health care provider will examine a sample of your vaginal discharge under a microscope. Your health care provider may send this sample for testing to confirm the diagnosis. How is this treated? This condition is treated with medicine. Medicines may be wanc-mha-rkxhqqi or prescription. You may be told to use one or more of the following: ? Medicine that is taken by mouth (orally). ? Medicine that is applied as a cream (topically). ? Medicine that is inserted directly into the vagina (suppository). Follow these instructions at home: ? Take or apply okme-hsw-jvopcaw and prescription medicines only as told by your health care provider. ? Do not use tampons until your health care provider approves. ? Do not have sex until your infection has cleared. Sex can prolong or worsen your symptoms of infection. Ask your health care provider when it is safe to resume sexual activity. ? Keep all follow-up visits. This is important. How is this prevented? ? Do not wear tight clothes, such as pantyhose or tight pants. ? Wear breathable cotton underwear. ? Do not use douches, perfumed soap, creams, or powders. ? Wipe from front to back after using the toilet. ? If you have diabetes, keep your blood sugar levels under control. ? Ask your health care provider for other ways to prevent yeast infections. Contact a health care provider if: ? You have a fever. ? Your symptoms go away and then return. ? Your symptoms do not get better with treatment. ? Your symptoms get worse. ? You have new symptoms. ? You develop blisters in or around your vagina. ? You have blood coming from your vagina and it is not your menstrual period. ? You develop pain in your abdomen. Summary ? Vaginal yeast infection is a condition that causes discharge as well as soreness, swelling, and redness (inflammation) of the vagina. ? This condition is treated with medicine. Medicines may be wwav-dtv-nucxwud or prescription. ? Take or apply dbft-zxw-qzixaer and prescription medicines only as told by your health care provider. ? Do not douche. Resume sexual activity or use of tampons as instructed by your health care provider. ? Contact a health care provider if your symptoms do not get better with treatment or your symptoms go away and then return. This information is not intended to replace advice given to you by your health care provider. Make sure you discuss any questions you have with your health care provider. Document Revised: 05/21/2021 Document Reviewed: 05/21/2021 [employer] Patient Education ? 2022 [employer]yo. [facility] 08-15-2023 Miscellaneous Notes pcp name on rx. Sending to pcp office for refill. documented in this encounter [facility] [employer] [facility] 08-15-2023 Telephone encounter Note pcp name on rx. Sending to pcp office for refill. [facility] 07-25-2023 Note Education Materials Endocrinology Diabetes Mellitus and Nutrition, Adult When you have diabetes, or diabetes mellitus, it is very important to have healthy eating habits because your blood sugar (glucose) levels are greatly affected by what you eat and drink. Eating healthy foods in the right amounts, at about the same times every day, can help you: ? Manage your blood glucose. ? Lower your risk of heart disease. ? Improve your blood pressure. ? Reach or maintain a healthy weight. What can affect my meal plan? Every person with diabetes is different, and each person has different needs for a meal plan. Your health care provider may recommend that you work with a dietitian to make a meal plan that is best for you. Your meal plan may vary depending on factors such as: ? The calories you need. ? The medicines you take. ? Your weight. ? Your blood glucose, blood pressure, and cholesterol levels. ? Your activity level. ? Other health conditions you have, such as heart or kidney disease. How do carbohydrates affect me? Carbohydrates, also called carbs, affect your blood glucose level more than any other type of food. Eating carbs raises the amount of glucose in your blood. It is important to know how many carbs you can safely have in each meal. This is different for every person. Your dietitian can help you calculate how many carbs you should have at each meal and for each snack. How does alcohol affect me? Alcohol can cause a decrease in blood glucose (hypoglycemia), especially if you use insulin or take certain diabetes medicines by mouth. Hypoglycemia can be a life-threatening condition. Symptoms of hypoglycemia, such as sleepiness, dizziness, and confusion, are similar to symptoms of having too much alcohol. ? Do not drink alcohol if: ? Your health care provider tells you not to drink. ? You are , may be , or are planning to become . ? If you drink alcohol: ? Limit how much you have to: ? 0?1 drink a day for women. ? 0?2 drinks a day for men. ? Know how much alcohol is in your drink. In the [place] one drink equals one 12 oz bottle of beer (355 mL), one 5 oz glass of wine (148 mL), or one 1? oz glass of hard liquor (44 mL). ? Keep yourself hydrated with water, diet soda, or unsweetened iced tea. Keep in mind that regular soda, juice, and other mixers may contain a lot of sugar and must be counted as carbs. What are tips for following this plan? Reading food labels ? Start by checking the serving size on the Nutrition Facts label of packaged foods and drinks. The number of calories and the amount of carbs, fats, and other nutrients listed on the label are based on one serving of the item. Many items contain more than one serving per package. ? Check the total grams (g) of carbs in one serving. ? Check the number of grams of saturated fats and trans fats in one serving. Choose foods that have a low amount or none of these fats. ? Check the number of milligrams (mg) of salt (sodium) in one serving. Most people should limit total sodium intake to less than 2,300 mg per day. ? Always check the nutrition information of foods labeled as low-fat or nonfat. These foods may be higher in added sugar or refined carbs and should be avoided. ? Talk to your dietitian to identify your daily goals for nutrients listed on the label. Shopping ? Avoid buying canned, pre-made, or processed foods. These foods tend to be high in fat, sodium, and added sugar. ? Shop around the outside edge of the grocery store. This is where you will most often find fresh fruits and vegetables, bulk grains, fresh meats, and fresh dairy products. Cooking ? Use low-heat cooking methods, such as baking, instead of high-heat cooking methods, such as deep frying. ? Cook using healthy oils, such as olive, canola, or sunflower oil. ? Avoid cooking with butter, cream, or high-fat meats. Meal planning ? Eat meals and snacks regularly, preferably at the same times every day. Avoid going long periods of time without eating. ? Eat foods that are high in fiber, such as fresh fruits, vegetables, beans, and whole grains. ? Eat 4?6 oz (112?168 g) of lean protein each day, such as lean meat, chicken, fish, eggs, or tofu. One ounce (oz) (28 g) of lean protein is equal to: ? 1 oz (28 g) of meat, chicken, or fish. ? 1 egg. ? ? cup (62 g) of tofu. ? Eat some foods each day that contain healthy fats, such as avocado, nuts, seeds, and fish. What foods should I eat? Fruits Berries. Apples. Oranges. Peaches. Apricots. Plums. Grapes. Mangoes. Papayas. Pomegranates. Kiwi. Cherries. Vegetables Leafy greens, including lettuce, spinach, kale, chard, carl greens, mustard greens, and cabbage. Beets. Cauliflower. Broccoli. Carrots. Green beans. Tomatoes. Peppers. Onions. Cucumbers. Craig sprouts. Grains Whole grains, such as whole-wheat or whole-grain bread, crackers, tortillas, cereal, and pasta. (more content not included)... [facility] 07-21-2023 Note Education Materials Orthopedics Foot Sprain A foot sprain is an injury to one of the ligaments in the feet. Ligaments are strong tissues that connect bones to each other. The ligament can be stretched too much. In some cases, it may tear. A tear can be either partial or complete. The severity of the sprain depends on how much of the ligament was damaged or torn. What are the causes? This condition is usually caused by suddenly twisting or pivoting your foot. What increases the risk? You are more likely to develop this condition if: ? You play a sport, such as basketball or football. ? You exercise or play a sport without first warming up your muscles. ? You start a new workout or sport. ? You suddenly increase how long or hard you exercise or play a sport. ? You have injured your foot or ankle before. What are the signs or symptoms? Symptoms of this condition start soon after an injury and include: ? Pain, especially in the arch of your foot. ? Bruising. ? Swelling. ? Being unable to walk or use your foot to support body weight. How is this diagnosed? This condition is diagnosed with a medical history and physical exam. You may also have imaging tests, such as: ? X-rays to check for broken bones (fractures). ? An MRI to see if the ligament is torn. How is this treated? Treatment for this condition depends on the severity of the sprain. Mild sprains and major sprains can be treated with: ? Rest, ice, pressure (compression), and elevation (RICE). Elevation means raising your injured foot. ? Keeping your foot in a fixed position (immobilization) for a period of time. This is done if your ligament is overstretched or partially torn. Your health care provider will apply a bandage, splint, or walking boot to keep your foot from moving until it heals. ? Using crutches or a scooter for a few weeks to avoid bearing weight on your foot while it is healing. ? Physical therapy exercises to improve movement and strength in your foot. Major sprains may also be treated with: ? Surgery. This is done if your ligament is fully torn and a procedure is needed to reconnect it to the bone. ? A cast or splint. This will be needed after surgery. A cast or splint will need to stay on your foot while it heals. Follow these instructions at home: If you have a bandage, splint, or boot: ? Wear it as told by your health care provider. Remove it only as told by your health care provider. ? Loosen it if your toes tingle, become numb, or turn cold and blue. ? Keep it clean and dry. If you have a cast: ? Do not put pressure on any part of the cast until it is fully hardened. This may take several hours. ? Do not stick anything inside the cast to scratch your skin. Doing that increases your risk for infection. ? Check the skin around the cast every day. Tell your health care provider about any concerns. ? You may put lotion on dry skin around the edges of the cast. Do not put lotion on the skin underneath the cast. ? Keep it clean and dry. Bathing ? Do not take baths, swim, or use a hot tub until your health care provider approves. Ask your health care provider if you may take showers. You may only be allowed to take sponge baths. ? If the bandage, splint, boot, or cast is not waterproof: ? Do not let it get wet. ? Cover it with a watertight covering when you take a bath or shower. Managing pain, stiffness, and swelling ? If directed, put ice on the injured area. To do this: ? If you have a removable bandage, splint, or boot, remove it as told by your health care provider. ? Put ice in a plastic bag. ? Place a towel between your skin and the bag, or between your cast and the bag. ? Leave the ice on for 20 minutes, 2?3 times per day. ? Remove the ice if your skin turns bright red. This is very important. If you cannot feel pain, heat, or cold, you have a greater risk of damage to the area. ? Move your toes often to reduce stiffness and swelling. ? Elevate the injured area above the level of your heart while you are sitting or lying down. Activity ? Do not use the injured foot to support your body weight until your health care provider says that you can. Use crutches or a scooter as told by your health care provider. ? Ask your health care provider what activities are safe for you. Do exercises as told by your health care provider. ? Gradually increase how much and how far you walk until your health care provider says it is safe to return to full activity. Driving ? Ask your health care provider if the medicine prescribed to you requires you to avoid driving or using machinery. ? Ask your health care provider when it is safe to drive if you have a bandage, splint, boot, or cast on your foot. General instructions ? Take yxdo-azp-rhysdmr and prescription medicines only as told by your health care provider. ? When you can walk without pain, w (more content not included)... [facility] 04-03-2023 Miscellaneous Notes Images from the original note were not included. documented in this encounter [facility] [employer] 04-03-2023 Telephone encounter Note Images from the original note were not included. [facility] [employer] [facility] 08-09-2020 Note Encounter Department : [facility]IMARY [facility] Progress Notes by LandyREMBERTO Zamudio at 08/09/2020 3:00 PM Author: REMBERTO McclellanService: -Author Type: Nurse Practitioner Filed: 08/09/2020 4:11 PMEncounter Date: 08/09/2020tatus: Signed Key Account Manager: REMBERTO Mcclellan (Nurse Practitioner) Chinmay Knight [address] [facility] [id number] : 45 y.o.: 1975Phone: (home) Encounter Date: 08/09/2020 Assessment Assessment and Plan: ICD-10-CM 1.Essential hypertension [id number] tartrate 37.5 mg Tab CBC W/DIFF Comprehensive Metabolic Panel Diagnoses and all orders for this visit: Essential hypertension (Primary) (Chronic) - metoprolol tartrate 37.5 mg Tab Dispense: 30 tablet; Refill: 6 - CBC W/DIFF - Comprehensive Metabolic Panel Will increase patient metoprolol to 37.5mg and have patient call in 2 week with an update. Will draw some labs in the office today. [facility] Evaluation as of 08/09/2020: -Determined Barrier: [...] at visit Current Outpatient Medications Ordered in [facility] MedicationSigDispenseRefill -hydroCHLOROthiazide (HYDRODIURIL) 25 mg tabletTake 25 mg by mouth 2 times a day. -lisinopriL (ZESTRIL) 40 mg tabletTake 40 mg by mouth daily. -metoprolol tartrate 37.5 mg TabTake 37.5 mg by mouth 2 times a day.30 tablet6 -topiramate (TOPAMAX) 25 mg tabletTake 50 mg by mouth daily. No current [facility]-ordered facility-administered medications on file. No [...] necessary. Electronically Signed by: Landy SR 08/09/2020 [facility] 08-09-2020 Note Encounter Department : [facility] PHYSICIAN [facility] PRIMARY CARE Progress Notes by REMBERTO Mcclellan at 08/09/2020 3:00 PM Author: REMBERTO McclellanService: -Author Type: Nurse Practitioner Filed: 08/10/2020 9:48 AMEncounter Date: 5/26/2021Status: Signed Key Account Manager: REMBERTO Mcclellan (Nurse Practitioner) Please inform patient that her labs are all normal. Please inform her that her kidney function is back to normal [facility] 08-09-2020 Note Encounter Department : [facility] Progress Notes by Maci Holden CMA at 08/09/2020 3:00 PM Author: Maci Holden CMAService: -Author Type: [employer] Filed: 08/10/2020 12:44 PMEncounter Date: 08/09/2020tatus: Signed Key Account Manager: Maci Holden CMA ([employer]) Left VM for patient with results and advised to return call with questions or concerns. [facility] Evaluation note No assessment inform [facility] Work Phone: Evaluation note Diagnosis Primary hypertension Unspecified essential hypertension Combined systolic and diastolic congestive heart failure, unspecified HF chronicity ([facility]) Acute combined systolic and diastolic congestive heart failure ([facility]) Cardiomegaly documented in this encounter [facility] Diagnosis Primary hypertension Unspecified essential hypertension 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 heart failure ([facility]) ASCVD (arteriosclerotic cardiovascular disease) Unspecified cardiovascular disease Dyslipidemia Other and unspecified hyperlipidemia documented in this encounter [facility] Diagnosis Encounter for screening mammogram for malignant neoplasm of breast- Primary documented in this encounter [facility] Diagnosis 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)- Primary Occlusion of right radial artery ([facility]) Embolism and thrombosis of unspecified artery documented in this encounter [facility] Diagnosis Primary hypertension- Primary Unspecified essential hypertension Left ventricular failure (CMS-HCC) Left heart failure 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) Shortness of breath Acute systolic congestive heart failure ([facility]) Acute on chronic HFrEF (heart failure with reduced ejection fraction) ([facility]) documented in this encounter [facility] Diagnosis Cardiomyopathy, unspecified type ([facility])- Primary documented in this encounter [facility] System[facility] and [facility] note Author Natalie Garcia [facility] December 09, 2023 12:25pm Note Date/Time December 09, 2023 11:55am [facility] [address] [place] [address] Gastroenterology H&P Signed Patient: Chinmay Knight MR#: [id number] : 1975 Acct:[id number] Age/Sex: 48 / F Adm Date: 4 Loc: Room: Type: [facility] Attending Dr: Natalie Garcia DO Copies to: Natalie Garcia DO Claudine Whyte Epifaniojose BOOM WORKER~ Date of Service: 12/09/2023 HISTORY & PHYSICAL: [...] EMR Documented By: Natalie Garcia DO 12/09/23 1150 Signed By: <Electronically signed by Natalie Garcia DO> 12/09/23 0222 [facility] Work Phone: InstructionsNot on filedocumented in [...] [facility] Summary Purpose Family History Relationship Condition Age at Onset Recorded Date/T lanre mother Heart disease Unknown brother Congestive heart failure Unknown father Congestive heart failure Unknown family member Diabetes mellitus Unknown Advance Directives Advance Directive Response Recorded Date/ Time Advance Directives No November 06, 2023 9:07am Advance Directive Response Recorded Date/ Time Advance Directives No November 06, 2023 8:07am Latest Code Status on File Code Status Date Activated Date Inactivated Comments Full Code 09/13/2022 10:36 PM 09/15/2022 6:30 PM Code Status History Code Status Date Activated Date Inactivated Comments Full Code 09/12/2022 5:05 PM 09/13/2022 10:01 PM Date [...] Complaint Screening Screening Screening Amb Documentation BH Chief Complaint Admit Date Unknown March 15, 2024 8:42pm Additional Source Comments INFORMATION SOURCE (unrecogn ized section and content) DATE CREATED AUTHOR 08/12/2020 [facility] DATE CREATED AUTHOR AUTHOR'S ORGANIZ ATION 07/11/2022 [facility] DATE CREATED AUTHOR AUTHOR'S ORGANIZ ATION 07/30/2022 [facility] DATE CREATED AUTHOR AUTHOR'S ORGANIZ ATION 06/16/2023 [facility] DATE CREATED AUTHOR AUTHOR'S ORGANIZ ATION 01/08/2024 [facility] DATE CREATED AUTHOR AUTHOR'S ORGANIZ ATION 03/18/2024 [facility] DATE CREATED AUTHOR AUTHOR'S ORGANIZ ATION 04/10/2024 [facility] DATE CREATED AUTHOR AUTHOR'S ORGANIZ ATION 04/13/2024 [facility] DATE CREATED AUTHOR AUTHOR'S ORGANIZ ATION 05/05/2024 [facility] Care Teams (unrecognized sec tion and content) Team Status: Active Member Role Status Dates Claudine Hernadez NP-C Primary Care Provider Act casey Team Status: Inactive Member Role Status Dates Natalie Garcia DO Attending Provider Active St art: November 06, 2023 End: November 06, 2023 Claudine Hernadez NP-Coleen Primary Care Provider, Referring Provider Active Start: November 06, 2023 End: November 06, 2023 Team Status: Inactive Member Role Status Dates JOSIAH QuickC Primary Care Provider Act casey Start: December 09, 2023 End: December 09, 2023 Natalie Garcia DO Attending Provider Active St art: December 09, 2023 End: December 09, 2023 Team Status: Active Member Role Status Dates Claudine Hernadez NP-C Primary Care Provider Active Start: November 162023 Natalie Garcia DO Attending Provider, Other Provider Active Start: December 09, 2023 Team Status: Active Member Role Status Dates JOSIAH QuickC Primary Care Provider Act casey Start: December 17, 2023 Leah Hess LPN Attending Provider Active St art: December 17, 2023 Team Status: Active Member Role Status Dates Claudine Hernadez NP-C Primary Care Provider Act casey Start: December 22, 2023 Fletcher Flores MD Attending Provider Active Start: December 22, 2023 Team Status: Active Member Role Status Dates Natalie Garcia DO Attending Provider Active St art: Mary 15th, 2024 Team Status: Inactive Member Role Status Dates Khushbu Frederick Mary , DO Attending Provider Active Start: March 15, 2024 End: March 15, 2024 Registered Nurse Nursery Relationship Specialty Start Date End Date Josi Ba MD [address] [place] [id number] PCP - General Internal Medicine 09/12/22 Registered Nurse Nursery Relationship Specialty Start Date End Date Josi Ba MD [address], [place] [address] PCP - General Internal Medicine 09/12/22 Registered Nurse Nursery Relationship Specialty Start Date End Date Josi Ba MD [address], [place] [address] PCP - General Internal Medicine 09/12/22 Registered Nurse Nursery Relationship Specialty Start Date End Date Josi Ba MD [address], [place] [address] PCP - General Internal Medicine 09/12/22 Registered Nurse Nursery Relationship Specialty Start Date End Date Josi Ba MD [address], [place] [address] PCP - General Internal Medicine 09/12/22 Registered Nurse Nursery Relationship Specialty Start Date End Date Josi Ba MD [address], [place] [address] PCP - General Internal Medicine 09/12/22 Registered Nurse Nursery Relationship Specialty Start Date End Date Claudine Hernadez, RECESSING MACHINE OPERATOR-BOOM WORKER [address] [place] [id number] PCP - General Nurse Practitioner 01/06/24 Registered Nurse Nursery Relationship Specialty Start Date End Date Claudine Hernadez REMBERTO [address]orne [address] [place] [address] PCP - General Nurse Practitioner 01/06/24 Registered Nurse Nursery Relationship Specialty Start Date End Date Satya Claudine REMBERTO [address]orne [address] [place] [address] PCP - General Nurse Practitioner 01/06/24 Goals (unrecognized section and content) Goals may be documented in a n alternate section Reason for Visit (unrecogniz ed section and content) Reason Comments Med Refill Reason Onset Date Comments Med Refill 04/03/2023 Reason Onset Date Comments Med Refill 10/09/2023 Reason Comments Follow-up Congestive Heart Failure FOR RECORDS PERTAINING TO PATIENTS WHO ARE [...] BE BASED ON THE PRIMARY CLINICAL RECORDS. [facility]. provides no warranty or guarantee of the accuracy or completeness of information in this document.
--- NOTE | 2024-05-08 05:17 | ED.GENADUL1 ---
HPI HPI - General Adult General Chief complaint: Back Pain/Injury Stated complaint: back pain Time Seen by Provider: 05/08/24 05:03 Source: patient Mode of arrival: walk-in Limitations: no limitations History of Present Illness HPI narrative: 48-year-old female to the emergency department with chief complaint of chronic back pain. Patient reports that for several years she has had back pain for which she has seen pain management. She has undergone ablations. She has been on several different medications. She reports nothing has worked for her. She reports that she was losing sleep tonight due to the pain and decided something needed to be done and she would come to the emergency department. She reports that she has an upcoming appointment with a spine surgeon, is in the process of establishing with a new pain management group but she does not believe the old one was helping her, recently switched primary care to Monisha Brody. Patient reports that nothing has helped her pain. She denies any bowel/bladder incontinence or retention. No change in her symptoms today. No falls or injuries. Related Data Home Medications ?Medication ?Instructions ?Recorded ?Confirmed aspirin 81 mg tablet,delayed 81 mg PO DAILY 03/13/23 05/08/24 release (Lynn Low Dose Aspirin) bumetanide 0.5 mg tablet 1 mg PO DAILY 03/13/23 05/08/24 empagliflozin 10 mg tablet 10 mg PO DAILY 03/13/23 05/08/24 (Jardiance) metoprolol succinate 100 mg 100 mg PO DAILY 03/13/23 05/08/24 tablet,extended release 24 hr omeprazole 40 mg capsule,delayed 40 mg PO DAILY 03/13/23 05/08/24 release rosuvastatin 10 mg tablet 20 mg PO DAILY 03/13/23 05/08/24 spironolactone 25 mg tablet 25 mg PO DAILY 03/13/23 05/08/24 isosorbide mononitrate 30 mg 30 mg PO DAILY 06/02/23 05/08/24 tablet,extended release 24 hr Previous Rx's ?Medication ?Instructions ?Recorded cyclobenzaprine 10 mg tablet 10 mg PO BID PRN muscle spasm #10 05/08/24 tabs Allergies Allergy/AdvReac Type Severity Reaction Status Date / Time codeine AdvReac Mild Nausea Verified 03/15/24 20:37 keflex AdvReac Intermediate Hallucinati Uncoded 03/15/24 20:37 ng Opioid HPI Opioid Management Most Recent Opioid Data: Last Pain Scale 8 05/08/24 05:05 05/08/24 Review of Systems ROS Status of ROS 10 or more systems reviewed and unremarkable except as noted in history and below [facility] Medical History (Updated 05/08/24 @ 05:16 by Jefferson Parada MD) Osteoarthritis ?M19.90 - Unspecified osteoarthritis, unspecified site (ICD-10) Heartburn ?R12 - Heartburn (ICD-10) Smoker ?F17.200 - Nicotine dependence, unspecified, uncomplicated (ICD-10) HTN (hypertension) ?I10 - Essential (primary) hypertension (ICD-10) CHF (congestive heart failure) ?I50.9 - Heart failure, unspecified (ICD-10) Surgical History (Updated 07/07/23 @ 13:37 by Sonya Denis RN) History of hysterectomy ?Z90.710 - Acquired absence of both cervix and uterus (ICD-10) History of shoulder surgery ?Z98.890 - Other specified postprocedural states (ICD-10) History of knee replacement ?Z96.659 - Presence of unspecified artificial knee joint (ICD-10) Social History Smoking status: Current every day smoker Little interest or pleasure in doing things: not at all Feeling down, depressed, or hopeless: not at all Exam Narrative Exam Narrative: VITALS: I have reviewed the triage vital signs. GENERAL: Morbidly obese adult female in no distress NEURO: Alert and oriented. Moves all extremities. Sensation intact in the upper and lower extremities. Normal gait. EYES: PERRL. No scleral icterus or conjunctival injection. No discharge. HENT: Normocephalic, atraumatic. Hearing is grossly intact. Nares grossly patent and without discharge. Mucous membranes moist. NECK: No JVD. Patient moves neck without restriction. CARDIO: Rhythm regular. Normal rate. Pulses equal bilaterally in the upper and lower extremity. No lower extremity edema. PULM: No respiratory distress. No conversational dyspnea. GI/: Abdomen is soft and non-tender. Normoactive bowel sounds. EXTREMITIES: Symmetric muscle bulk. No joint swelling. No clubbing, cyanosis, or deformity. SKIN: Warm and dry. Normal turgor. No rash or lesions appreciated. PSYCH: Mood, affect, and interaction is appropriate to the setting. Constitutional Vital Signs, click to edit/add: Last Vital Signs Temp 98.1 F 05/08/24 04:56 Pulse 80 05/08/24 04:56 Resp 20 05/08/24 04:56 BP 187/89 H 05/08/24 04:56 Pulse Ox 98 05/08/24 04:56 O2 Del Method Room Air 05/08/24 04:56 Course Vital Signs Vital signs: Vital Signs Temperature 98.1 F 05/08/24 04:56 Pulse Rate 80 05/08/24 04:56 Respiratory Rate 20 05/08/24 04:56 Blood Pressure 187/89 H 05/08/24 04:56 Pulse Oximetry 98 05/08/24 04:56 Oxygen Delivery Method Room Air 05/08/24 04:56 Temperature 98.1 F 05/08/24 04:56 Pulse Rate 80 05/08/24 04:56 Respiratory Rate 20 05/08/24 04:56 Blood Pressure 187/89 H 05/08/24 04:56 Pulse Oximetry 98 05/08/24 04:56 Oxygen Delivery Method Room Air 05/08/24 04:56 Medical Decision Making MDM Narrative Medical decision making narrative: 48-year-old female to the emergency department with chief complaint of chronic back pain. Vital stable, the patient is afebrile. History and exam do not reveal any evidence of cord compressing lesion/cauda equina syndrome. Her pain is chronic in nature. She has seen several different providers across different systems for this. She has had ablations with pain management. By her own admission she reports that nothing has worked to help her pain in the past. She reports dissatisfaction with how her caregivers have treated her pain. Long discussion was had with the patient about chronic pain and the appropriateness of treatment in the emergency department for chronic pain. She would like a shot of something to get her pain level down and may be something for home until she can see her primary care doctor. I believe this is reasonable. She is given a shot of Norflex and prescribed Flexeril. I do not believe that narcotic pain medications are appropriate in this patient's care at this time. Return precautions were discussed. She already has spine surgery/pain management/PCP follow-up scheduled upcoming. All questions were answered. The patient was discharged home. Medical Records Medical records reviewed: Yes I reviewed the patient's medical records Discharge Plan Discharge Chief Complaint: Back Pain/Injury Clinical Impression: Chronic back pain Patient Disposition: Home, Self-Care Time of Disposition Decision: 05:16 Condition: Good Mode of Transportation: Private Vehicle Prescriptions / Home Meds: New cyclobenzaprine 10 mg tablet 10 mg PO BID PRN (Reason: muscle spasm) Qty: 10 0RF No Action metoprolol succinate 100 mg tablet extended release 24 hr 100 mg PO DAILY omeprazole 40 mg capsule,delayed release(DR/EC) 40 mg PO DAILY aspirin [Lynn Low Dose Aspirin] 81 mg tablet,delayed release (DR/EC) 81 mg PO DAILY spironolactone 25 mg tablet 25 mg PO DAILY bumetanide 0.5 mg tablet 1 mg PO DAILY rosuvastatin 10 mg tablet 20 mg PO DAILY Jardiance 10 mg tablet 10 mg PO DAILY isosorbide mononitrate 30 mg tablet extended release 24 hr 30 mg PO DAILY Print Language: Estonian Instructions: Chronic Pain (ED), Non-pharmacological Pain Management Therapies for Adults (ED) Additional Instructions: Call the office of your primary care doctor to arrange for follow-up within the above-stated timeframe. Your ED visit was focused on your acute issue and does not replace primary care. You should review your labs, imaging, and diagnoses from this ED visit with your primary care physician. There may be non-emergent/ incidental findings that need further evaluation. You should review your vital signs including blood pressure with your PCP. If you were prescribed medications you should discuss possible side-effects and drug interactions with your pharmacist. Call 911 or go to the nearest Emergency Department if you develop any new or worsening symptoms. Seek immediate medical attention if you develop: increasing pain, numbness, tingling, weakness, loss of motion in your arms or legs, loss of control of your urine or stool, fever, abdominal pain, chest pain, shortness of breath, or any new or worsening symptoms. Referrals: MONISHA BRODY [Nurse Practitioner] - 1 week
[2024-05-08] MEDS: ORPHENADRINE 60 MG/ 2 ML VIAL IM (05:27)
[2024-05-08 05:28] VITALS: BP 164/90
== END 2024-05-08 05:30 | disposition home or self-care (01) ==
PROVIDERS: Emergency Provider Student in an Organized Health Care Education/Training Program; PCP Internal Medicine
DX: M54.50 Low back pain, unspecified (principal)
CPT/HCPCS: 96372; 99284; J2360

== ENCOUNTER 2024-06-10 14:04 | Emergency (ER) | payer MEDICAID, SELFPAY ==
[2024-06-10] VITALS (10 sets, daily range): BP systolic 170–200; BP diastolic 90–115; PULSE 70–94; TEMP 36.7; O2SAT 92–98; BMI 39.3
--- NOTE | 2024-06-10 14:15 | ECG_ITS ---
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 Measurements Intervals [place] Rate: 72 P: 17 MN: 172 QRS: 69 QRSD: 94 T: 90 QT: 402 QTc: 427 Interpretive Statements 1100 Sinus rhythm [address] depression [address] & [place] abnormality Abnormal ECG Compared to ECG 03/13/2023 00:24:03 No significant changes Electronically Signed On 06-11-2024 19:18:33 EDT by LOPEZ LOVE M.D.
--- NOTE | 2024-06-10 14:16 | ED_ITS ---
HPI - Abdominal Pain General Chief Complaint: Abdominal Pain Stated Complaint: DIARRHEA NAUSEA Time Seen by Provider: 06/10/24 14:06 Source: patient and family Mode of arrival: walk-in History of Present Illness HPI narrative: Patient is a 49-year-old female who presents to the emergency department today for epigastric abdominal pain that began yesterday. She denies fevers, cough or congestion. She reports feeling nauseous but has not had any vomiting. She had an episode of diarrhea yesterday with no blood in her stool. She states the pain does not radiate although she has chronic back pain so it is difficult for her to tell. She did not take any medications prior to arrival. She is noted to be hypertensive at arrival, she did not take her blood pressure medication today. She reports a previous hysterectomy, no history of other abdominal surgeries. Related Data Home Medications ?Medication ?Instructions ?Recorded ?Confirmed aspirin 81 mg tablet,delayed 81 mg PO DAILY 03/13/23 05/08/24 release (Lynn Low Dose Aspirin) bumetanide 0.5 mg tablet 1 mg PO DAILY 03/13/23 05/08/24 empagliflozin 10 mg tablet 10 mg PO DAILY 03/13/23 05/08/24 (Jardiance) metoprolol succinate 100 mg 100 mg PO DAILY 03/13/23 05/08/24 tablet,extended release 24 hr omeprazole 40 mg capsule,delayed 40 mg PO DAILY 03/13/23 05/08/24 release rosuvastatin 10 mg tablet 20 mg PO DAILY 03/13/23 05/08/24 spironolactone 25 mg tablet 25 mg PO DAILY 03/13/23 05/08/24 isosorbide mononitrate 30 mg 30 mg PO DAILY 06/02/23 05/08/24 tablet,extended release 24 hr Previous Rx's ?Medication ?Instructions ?Recorded cyclobenzaprine 10 mg tablet 10 mg PO BID PRN muscle spasm #10 05/08/24 tabs hyoscyamine sulfate 0.125 mg 0.125 mg PO Q6H PRN abdominal pain 06/10/24 tablet (Levsin) #12 tabs ondansetron 4 mg disintegrating 4 mg PO Q6H PRN nausea and 06/10/24 tablet vomiting #12 tabs Allergies Allergy/AdvReac Type Severity Reaction Status Date / Time codeine AdvReac Mild Nausea Verified 03/15/24 20:37 keflex AdvReac Intermediate Hallucinati Uncoded 03/15/24 20:37 ng Review of Systems ROS Constitutional Denies: fever or chills Ears, nose, mouth, and throat Denies: throat pain or nasal congestion Cardiovascular Denies: chest pain Respiratory Denies: shortness of breath Gastrointestinal Reports: abdominal pain and nausea; Denies: vomiting or diarrhea Musculoskeletal Denies: back pain Integumentary/Breast Denies: rash Neurological Denies: numbness in extremities or weakness in extremities Hematologic/Lymphatic Denies: easy bruising or easy bleeding PFSH PFS Medical History (Updated 06/10/24 @ 16:11 by JOHANA Houser) Osteoarthritis ?M19.90 - Unspecified osteoarthritis, unspecified site (ICD-10) Heartburn ?R12 - Heartburn (ICD-10) Smoker ?F17.200 - Nicotine dependence, unspecified, uncomplicated (ICD-10) HTN (hypertension) ?I10 - Essential (primary) hypertension (ICD-10) CHF (congestive heart failure) ?I50.9 - Heart failure, unspecified (ICD-10) Surgical History (Updated 07/07/23 @ 13:37 by Sonya Denis RN) History of hysterectomy ?Z90.710 - Acquired absence of both cervix and uterus (ICD-10) History of shoulder surgery ?Z98.890 - Other specified postprocedural states (ICD-10) History of knee replacement ?Z96.659 - Presence of unspecified artificial knee joint (ICD-10) Social History Smoking status: Current every day smoker Little interest or pleasure in doing things: not at all Feeling down, depressed, or hopeless: not at all Exam Narrative Exam Narrative: Gen.: Awake, alert, in no distress Head: Normocephalic, atraumatic ENT: Moist mucous membranes Respiratory: No respiratory distress Gastrointestinal: Abdomen is soft, obese, tender in the epigastrium and right u pper quadrant with no guarding or rebound Extremities: Moves extremities equally Psych: Normal mood and affect Neuro: No focal neuro deficit Skin: Warm, dry, intact Constitutional Vital Signs, click to edit/add: Last Vital Signs Temp 98.1 F 06/10/24 14:08 Pulse 70 06/10/24 15:29 Resp 12 06/10/24 15:29 BP 170/90 H 06/10/24 16:07 Pulse Ox 98 06/10/24 15:29 Course Vital Signs Vital signs: Vital Signs Temperature 98.1 F 06/10/24 14:08 Pulse Rate 82 06/10/24 14:08 Respiratory Rate 18 06/10/24 14:08 Blood Pressure 200/109 H 06/10/24 14:08 Pulse Oximetry 97 06/10/24 14:08 Temperature 98.1 F 06/10/24 14:08 Pulse Rate 70 06/10/24 15:29 Respiratory Rate 12 06/10/24 15:29 Blood Pressure 170/90 H 06/10/24 16:07 Pulse Oximetry 98 06/10/24 15:29 MDM - Abdominal Pain MDM Narrative Medical decision making narrative: Patient treated with IV fluids and medication for pain. Laboratory studies reviewed and noted within normal limits including bilirubin and LFTs, lipase. CT of the abdomen and pelvis with no evidence of acute process. Patient may be having biliary colic, she should follow closely with her PCP for reevaluation to determine if she needs a HIDA scan. She is on omeprazole at home and will be given Levsin and Zofran. Follow-up with PCP and return to the ER if symptoms change or worsen SHARED APC VISIT, PHYSICIAN ATTESTATION: [id number] I performed a substantive part of the MDM during the patient?s E/M visit. I personally evaluated and examined the patient. I personally made or approved the documented management plan and acknowledge its risk of complications. Medical Records Attestation: I reviewed the patient's medical records. Lab Data Attestation: I reviewed the patient's lab results. Labs: Lab Results 06/10/24 06/10/24 Range/Units 14:34 15:22 WBC 10.6 (4.0-11.0) 10^3/uL RBC 5.08 (4.20-5.40) 10^6/uL Hgb 15.7 (12.0-16.0) g/dL Hct 47.0 (36.0-48.0) % MCV 92.5 (81.0-99.0) fL MCH 30.9 (26.7-34.0) pg MCHC 33.4 (29.9-35.2) g/dL RDW 12.9 (11.0-15.0) % Plt Count 281 (150-450) 10^3/uL MPV 10.0 (9.5-13.5) fL Neut % (Auto) 60.7 (43.0-75.0) % Lymph % (Auto) 27.2 (20.5-60.0) % Stevens % (Auto) 7.8 (1.7-12.0) % Eos % (Auto) 3.1 (0.9-7.0) % Baso % (Auto) 0.9 (0.2-2.0) % Neut # (Auto) 6.4 (1.4-6.5) 10^3/uL Lymph # (Auto) 2.9 (1.2-3.8) 10^3/uL Stevens # (Auto) 0.8 (0.3-0.8) 10^3/uL Eos # (Auto) 0.3 (0.0-0.7) 10^3/uL Baso # (Auto) 0.1 (0.0-0.1) 10^3/uL Abs Immat Gran (auto) 0.03 (0.00-0.03) 10^3/uL Imm/Tot Granulo (auto) 0.3 (0.0-0.5) % Sodium 141 (136-145) mmol/L Potassium 3.7 (3.5-5.1) mmol/L Chloride 104 (98-107) mmol/L Carbon Dioxide 27.0 (21.0-32.0) mmol/L Anion Gap 13.7 BUN 18.0 (7.0-18.0) mg/dL Creatinine 1.27 H (0.55-1.02) mg/dL Est GFR ( Amer) 54 L (>=60 mL/min/1.73m^2) Est GFR (Non-Af Amer) 44 L (>=60 mL/min/1.73m^2) BUN/Creatinine Ratio 14.2 Glucose 145 H (74-106) mg/dL Lactate 1.5 (0.4-2.0) mmol/L Calcium 9.4 (8.5-10.1) mg/dL Total Bilirubin 0.3 (0.2-1.0) mg/dL AST 20 (15-37) U/L ALT 25 (14-59) U/L Alkaline Phosphatase 112 (46-116) U/L Troponin I High Sens 10.4 (4.0-51.3) pg/mL Total Protein 7.9 (6.4-8.2) g/dL Albumin 4.0 (3.4-5.0) g/dL Globulin 3.9 g/dL Albumin/Globulin Ratio 1.0 Lipase 55.0 (16.0-77.0) U/L Urine Color Lt. yellow (YELLOW) Urine Clarity Sl cloudy (CLEAR) Urine pH 6.0 (5.0-9.0) Ur Specific [place] 1.010 (1.005-1.025) Urine Protein Trace (NEG/TRACE) mg/dL Urine Glucose (UA) >=1000 A (NEGATIVE) mg/dL Urine Ketones Negative (NEGATIVE) mg/dL Urine Occult Blood Negative (NEGATIVE) Urine Nitrite Negative (NEGATIVE) Urine Bilirubin Negative (NEGATIVE) Urine Urobilinogen 0.2 (0.2-1.0) EU/dL Ur Leukocyte Esterase Negative (NEGATIVE) Urine RBC 0-2 (0-2) #/HPF Urine WBC 0-2 A (NONE SEEN) #/HPF Ur Squamous Epith Cells Many A (NONE/RARE) #/LPF Urine Crystals None seen (None Seen) #/HPF Urine Bacteria Large A (NONE SEEN) #/HPF Urine Casts None seen (NONE SEEN) #/LPF Urine Mucus Trace A (NONE SEEN) Ur Culture Indicated? Yes-[facility] [place] CT scan - abdomen: Attestation: I have reviewed the pertinent imaging results. ECG Data Attestation: I personally reviewed and interpreted this ECG as follows: Discharge Plan Discharge Chief Complaint: Abdominal Pain Clinical Impression: Abdominal pain Patient Disposition: Home, Self-Care Time of Disposition Decision: 16:11 Condition: Good Prescriptions / Home Meds: New hyoscyamine sulfate [Levsin] 0.125 mg tablet 0.125 mg PO Q6H PRN (Reason: abdominal pain) Qty: 12 0RF ondansetron 4 mg tablet,disintegrating 4 mg PO Q6H PRN (Reason: nausea and vomiting) Qty: 12 0RF No Action cyclobenzaprine 10 mg tablet 10 mg PO BID PRN (Reason: muscle spasm) Qty: 10 0RF metoprolol succinate 100 mg tablet extended release 24 hr 100 mg PO DAILY omeprazole 40 mg capsule,delayed release(DR/EC) 40 mg PO DAILY aspirin [Lynn Low Dose Aspirin] 81 mg tablet,delayed release (DR/EC) 81 mg PO DAILY spironolactone 25 mg tablet 25 mg PO DAILY bumetanide 0.5 mg tablet 1 mg PO DAILY rosuvastatin 10 mg tablet 20 mg PO DAILY Jardiance 10 mg tablet 10 mg PO DAILY isosorbide mononitrate 30 mg tablet extended release 24 hr 30 mg PO DAILY Print Language: [place] Instructions: Acute Abdominal Pain (ED) Referrals: LEONORA LR [Primary Care Provider] - 1 week
[2024-06-10] MEDS: 0.9 % SODIUM CHLORIDE 1,000 ML 999 ML IV (14:42)
[2024-06-10] MEDS: HYDROMORPHONE HCL 0.5 MG/0.5 ML SYRINGE IV (14:42)
[2024-06-10] MEDS: ONDANSETRON PF 4 MG/2 ML VIAL IV (14:43)
[2024-06-10] MEDS: HYOSCYAMINE SULFATE 0.125 MG TAB.SUBL SL (14:43)
[2024-06-10 14:49] LABS: Basophils Absolute Auto 0.1 10^3/uL (0.0-0.1); Basophils Percent Auto 0.9 % (0.2-2.0); Eosinophils Absolute Auto 0.3 10^3/uL (0.0-0.7); Eosinophils Percent Auto 3.1 % (0.9-7.0); Hemoglobin 15.7 g/dL (12.0-16.0); Immature Granulocytes Abs Auto 0.03 10^3/uL (0.00-0.03); Immature Granulocytes Pct Auto 0.3 % (0.0-0.5); Lymphocytes Absolute Auto 2.9 10^3/uL (1.2-3.8); Lymphocytes Percent Auto 27.2 % (20.5-60.0); Mean Corpuscular HGB Conc 33.4 g/dL (29.9-35.2); Mean Corpuscular Hemoglobin 30.9 pg (26.7-34.0); Mean Corpuscular Volume 92.5 fL (81.0-99.0); Monocytes Absolute Auto 0.8 10^3/uL (0.3-0.8); Monocytes Percent Auto 7.8 % (1.7-12.0); Neutrophils Absolute Auto 6.4 10^3/uL (1.4-6.5); Neutrophils Percent Auto 60.7 % (43.0-75.0); Platelet Count 281 10^3/uL (150-450); Red Blood Count 5.08 10^6/uL (4.20-5.40); Red Cell Distribution Width 12.9 % (11.0-15.0); White Blood Count 10.6 10^3/uL (4.0-11.0)
[2024-06-10 15:10] LABS: Lactate/Lactic Acid 1.5 mmol/L (0.4-2.0)
[2024-06-10 15:16] LABS: Alanine Aminotransferase 25 U/L (14-59); Alkaline Phosphatase 112 U/L (46-116); Anion Gap 13.7; Aspartate Amino Transferase 20 U/L (15-37); BUN Creatinine Ratio 14.2; Bilirubin Total 0.3 mg/dL (0.2-1.0); Calcium 9.4 mg/dL (8.5-10.1); Chloride 104 mmol/L (98-107); Estimated GFR (African America 54 (>=60 mL/min/1.73m^2); Estimated GFR (Non-African Ame 44 (>=60 mL/min/1.73m^2); Globulin 3.9 g/dL; Glucose 145 mg/dL (74-106); Potassium 3.7 mmol/L (3.5-5.1); Sodium 141 mmol/L (136-145); Total Protein 7.9 g/dL (6.4-8.2); Troponin I High Sensitivity 10.4 pg/mL (4.0-51.3)
[2024-06-10 15:36] LABS: Bilirubin Urine NEGATIVE (NEGATIVE); Blood Urine NEGATIVE (NEGATIVE); Clarity Urine SL CLOUDY (CLEAR); Color Urine LT. YELLOW (YELLOW); Glucose Urine UA >=1000 mg/dL (NEGATIVE); Ketones Urine NEGATIVE (NEGATIVE); Leukocyte Esterase Urine NEGATIVE (NEGATIVE); Nitrite Urine NEGATIVE (NEGATIVE); Protein Urine TRACE mg/dL (NEG/TRACE); Urobilinogen Urine 0.2 EU/dL (0.2-1.0)
[2024-06-10 15:45] LABS: Bacteria Urine LARGE #/HPF (NONE SEEN); Cast Seen? NONE SEEN #/LPF (NONE SEEN); Crystals Seen? None Seen #/HPF (None Seen); Mucus Urine TRACE (NONE SEEN); RBC Urine 0-2 #/HPF (0-2); Squamous Epithelial Cell Urine MANY #/LPF (NONE/RARE); Urine Culture Indicated YES-FRMC; WBC Urine 0-2 #/HPF (NONE SEEN)
== END 2024-06-10 16:25 | disposition home or self-care (01) ==
PROVIDERS: Physician Assistant; Emergency Provider Emergency Medicine; PCP Internal Medicine
DX: R10.13 Epigastric pain (principal); Z90.710 Acquired absence of both cervix and uterus; Z96.659 Presence of unspecified artificial knee joint; F17.200 Nicotine dependence, unspecified, uncomplicated; R19.7 Diarrhea, unspecified
CPT/HCPCS: 36415; 74177; 80053; 81001; 83605; 83690; 84484; 85025; 87086; 93005; 96361; 96374; 96375; 99285; J1171; J2405; Q9967

== ENCOUNTER 2024-07-01 09:48 | Outpatient (OUT) | payer MEDICAID, SELFPAY ==
--- OUTSIDE RECORDS SUMMARY | 2024-07-01 10:00 | XMS_ITS | CCD ---
Author Organization [facility] [place] CliniSynj Care Team Providers Care Formula Mixer Name Role Phone PIERSON EDILSON, EDILSON~[phone] PIERSON Attending Unavailable PIERSON EDILSON, EDILSON~[phone] PIERSON Primary Care Unavailable PIERSON EDILSON, EDILSON~[phone] PIERSON Attending Unavailable PIERSON EDILSON, EDILSON~[phone] PIERSON Primary Care Unavailable PIERSON EDILSON, EDILSON~[phone] PIERSON Primary Care Unavailable PIERSON EDILSON, EDILSON~[phone] PIERSON Attending Unavailable MIRELA, ALVA Primary Care [...] Admitting Unavailable MIRELA, ALVA Primary Care Unavailable WANDY, DR ISACC Gao Consulting Unavailable LIOR JIANG Consulting Unavailable MIRELA, ALVA Primary Care Unavailable [place], DR SHARRI Briggs Attending Unavailable [place], DR SHARRI Briggs Admitting Unavailable HELDER, DR LIZANDRO Ojeda Consulting Unavailable DR SHARRI BERNARDO Consulting Unavailable LINDSEY, ROBERT Consulting Unavailable EDDY MELGOZA Consulting Unavailable MARKER ., DR BRITO Admitting Unavailable MARKER ., DR BRITO Attending Unavailable ZIKIRSTENER, DR JT Gao Consulting Unavailable MIRELA, ALVA Primary Care Unavailable MARKER ., DR BRITO Consulting Unavailable MARLON ., PENNY Attending Unavailable MARLON ., PENNY Admitting Unavailable MIRELA, ALVA Primary Care Unavailable MARLON ., PENNY Consulting Unavailable SAID, BINOR Consulting Unavailable MARKER ., DR BRITO Consulting [...] Unavailable THAO, MUHAMID M Primary Care Unavailable SHADYBIANCAON M Referring Unavailable THAO, MUHAMID M Primary Care Unavailable TYRON WAGNER Referring Unavailable THAO, MUHAMID M Primary Care Unavailable PECLANDONPATYRON DURAN Referring Unavailable THAO, MUHAMID M Primary Care Unavailable Satya, BUSINESS PLANNING ANALYST-C Claudine Isabell Primary Care Provide r Ly, DO Natalie Gonzalez Attending Provider Ly, DO Natalie Gonzalez Attending Provider Satya BUSINESS PLANNING ANALYST-C Claudine Isabell Primary Care Provide r DIMITRIOS Hernadez-C Claudine Isabell Referring Provider MD Fletcher Flores Attending Provider TRAVIS BOWSER Attending Unavailabl e THAO, MUHAMID M Referring Unavailable KASTOR, CLAUDINE C Primary Care Unavailable Marker Khushbu RAYO Attending Provider Lauren CLAROS, Kendrick Reaves Attending Unavailable Lauren CLAROS, Kendrick Reaves Attending Unavailable [place] MANAGER POKER-PURE CULTURE OPERATOR, Lesley Roldan Attending U salina [place] MANAGER POKER-PURE CULTURE OPERATOR, Lesley Roldan Attending U salina Waterman MD, Murali Kaplan Attending Estee Waterman MD, Murali Kaplan Attending Estee labjeet [place] MANAGER POKER-PURE CULTURE OPERATOR, Lesley Roldan Attending U salina Waterman MD, Murali Kaplan Attending Estee perry Provider, None Primary Care Unavailable Travis Bowser R Attending Unavailabl e Nick, Travis R Admitting Unavailabl e Provider, None Primary Care Unavailable Thao Santana Attending Unavailable Thao Santana Admitting Unavailable Provider, None Primary Care Unavailable Romeo Resendez Attending Unavailable Romeo Resendez Admitting Unavailable Provider, None Primary Care Unavailable [place], Lesley M Attending Unavailable [place], Lesley M Admitting Unavailable Provider, None Primary Care Unavailable [place], Lesley M Attending Unavailable [place], Lesley M Admitting Unavailable [place], Lesley M Attending Unavailable [place], Lesley M Admitting Unavailable Provider, None Primary Care Unavailable Provider, None Primary Care Unavailable [place], Lesley M Attending Unavailable [place], Lesley M Admitting Unavailable Provider, None Primary Care Unavailable MURALI WATERMAN F Attending Unavailable KINDL, MURALI F Admitting Unavailable Provider, None Primary Care Unavailable KINDL, MURALI F Attending Unavailable KINDL, MURALI F Admitting Unavailable Provider, None Primary Care Unavailable KINDLisa MURALI F Attending Unavailable KINDL, MURALI F Admitting Unavailable Provider, None Primary Care Unavailable Romeo Meneses Attending Unavaila ble Romeo Meneses Admitting Unavaila ble Provider, None Primary Care Unavailable Claudine Hernadez Attending Unavailable Claudine Hernadez Admitting Unavailable Josi Ba MD Primary Care Provider Claudine Jay Primary Care Provider JESSE BECKMAN Referring Unavailable Khushbu Hernandez DO Attending Provider [phone] Kerri Varela PA-C Attending Provider [phone] LyNatalie L Admitting Unavailable Radha Natalie L Attending Unavailable Claudine Hernadez Primary Care Unavailab jeet MarkerKhushbu Admitting Unavailable Marker, Khushbu Frederick Attending Unavailable Kerri Varela Admitting Unavailable Kerri Varela Attending Unavailable Fletcher Flores Admitting Unavailab le MarkFletcher shanks Attending Unavailab le Kastor, Claudine Isabell Primary Care Unavailab le Ly, Natalie Gonzalez Admitting Unavailable Ly, Natalie Gonzalez Attending Unavailable [facility] Referring Unavailab le KastorClaudine Primary Care Unavailab le Allergies Allergy Classification Reported Allergen(s) Allergy Type Date of Onset Reaction(s) Facility (20 sources) Codeine; Translations: [CODEINE] Drug Allergy 1 Anaphylaxis [facility] Repository (2 sources) Cephalexin; Translations: [Keflex] Drug Allergy 2 [facility] Repository (20 sources) Cephalexin; Translations: [CEPHALEXIN] Drug Allergy 2 Hallucinations [facility] Repository (1 source) ALLERGIES NOT ON FILE; Translations: [ALLERGIES NOT ON FILE] Propensity to adverse reactions (disorder) [facility] Repository Medications Current Medications Medication Drug Class(es) Dates Sig (Normalized) Sig (Original) [id number] 200 actuat albuterol 0.09 mg/actuat metered dose [...] MG PO Daily November 06, 2023 12:00am aspirin 81 mg delayed release oral tablet (20 sources) Platelet Aggregation Inhibitor, Nonsteroidal Anti-inflammatory Drug Start: 09-16-2022 End: 12-05-2023 take 1 tablet by mouth once daily Aspirin 81 mg tablet,delayed release (DR/EC) Active 81 MG PO Daily November 06, 2023 12:00am bumetanide 0.5 mg oral tablet (20 sources) Loop Diuretic Start: 11-06-2023 take 1 tablet by mouth twice daily Bumetanide 0.5 mg tablet Active 0.5 MG PO Twice daily November 06, 2023 12:00am Start: 01-14-2023 End: 03-09-2023 take 1 tablet [...] (20 sources) Sodium-Glucose Cotransporter 2 Inhibitor Start: 11-06-2023 take 1 tablet by mouth [...] 02-03-2024 take 1 tablet by mouth once daily, then take 1 tablet by mouth every twenty-four hours Isosorbide Mononitrate 30 mg tablet extended release 24 hr Active 30 MG PO Daily November 06, 2023 12:00am losartan potassium 25 mg oral tablet (2 [...] hr Active 100 MG PO Daily November 06, [...] capsule (20 sources) Proton Pump Inhibitor Start: 11-06-2023 take 1 capsule by mouth once daily Omeprazole 40 mg capsule,delayed release(DR/EC) Active 40 MG PO Daily November 06, 2023 12:00am Start: 01-14-2023 End: 05-07-2023 take 1 capsule [...] 07/30/2022 Active pregabalin 100 mg oral capsule (4 sources) Start: 11-06-2023 take 1 capsule by mouth once daily Pregabalin 100 mg capsule Active 100 MG PO Daily November 06, 2023 12:00am promethazine hydrochloride 12.5 mg oral tablet (17 [...] sources) HMG-CoA Reductase Inhibitor Start: 11-06-2023 take 2 tablets by mouth once daily Rosuvastatin 10 mg tablet Active 20 MG PO Daily November 06, 2023 12:00am Start: 11-06-2023 take 20 mg by mouth [...] End: 01-02-2024 take 1 tablet by mouth once daily Spironolactone 25 mg tablet Active 25 MG PO Daily November 06, 2023 12:00am Problems Active Problems Problem Classification Problem Date [...] vascular disease; Translations: [Atherosclerotic heart disease of [place] coronary artery without angina pectoris] Onset: 09-12-2022 [...] 09-18-2021 Chronic Other aftercare (1 source) Other termite control servicer (current) drug therapy; Translations: [OTH CARE HOME CURRENT DRUG THERAPY] Onset: 07-16-2022 Episodic [...] visceral atherosclerosis (19 sources) Unspecified atherosclerosis of [place] arteries of extremities, other extremity; Translations: [Occlusion [...] Test Name Value Interpretation Reference Range Facility Urine Cultureon 06-10-2024 Bacteria identified Cx Nom (U) <9,000 colonies/ml mixed bacterial skin contaminants 2 Days PERFORMED BY: [facility] [address] [place] [address] PATHOLOGIST STRUCTURAL ARCHITECT WEN DAVIS M.D. Normal [facility] Comment on above: Performed By: #### C UU #### [facility] [address] [id number] [facility] Progress Note - Provideron 0 04-12-2024 Progress Note - Provider [id number] [email or web address] C[facility] Summaryon 04-06-2024 Coding Summary HTMLBase 64 JxvaikyjXNa0kDw+PGhlY WQ+XT9FXNBmY32heHOirO 7hS0NNTBbPVfjpKBBNAEy OQlFgjiIoRO2brJCrBCBp IC8+SS8zUAKuEkreiSZlp 5Y7bCC2S45pjl7cLVorgH F3GCHxWzInzqfyd2hkzTr 6IDcuNmluOyBt GFNlbA94GQG2tE28Mb19g OCclGSdy2nzbRo7QfSrIE YsXJN9gViqNUzpe9RkONF vG03emULyk9B0 JZKxvPlpsDSlOrHriXJ2l M8hLGoazftvz3spnljrQc u2wk80dEAyn1U6cAR4G1L mtsW2ATFojDOn IlyyaNTTuR0jbcyfp5hsb utnXyXcPSDyPUr8ZXq7RD XviOncQvNwEV43YRX9XJZ zlpNaN7JqTZBo kUjpDmH2u7P2Kl1KH8PGS iedT0ANMXWNSFbrzAP+PC 06rz23L9VcKnjkJyp6DSE oRON0bVO3bJ2r QWZxLQmpt4Y7rHL7N1Lkt wOghw1dd1fsZNSrAHpgP8 5tpWZzf8P6ZMQwtZB5EWE xnFlfGjEuaK93 Oyc+ZKVmhEbgk1MmLkkmt 3tjj3mvuWd2YnktXGHtfl XwfTijQBT8o4QnXo4gVLR biHC7ePS4iD5v BiNvKsD0EXufQ075DwKvj AYgHnvvH07jL7WwvSX+PH ZlCto5OQLkeNwpFG0kP2I hZGRpbmctbGVm eYlrFZ8vFWKhhuczRIQyj G8oVJYyF3l3FdVyHzU8ZX dtQ6EnNGGvzvyvDn76eC4 uPxHhXfH9ZDrg W3JffyW7IEUntLXwPJyaJ ON4G82fi5J6ZYWkGYZqSW Z0fEU9oN4cdJjsdqoodCU mdDsgdmVydGlj HQtiBVwgI391YLWmdNmoO kNvZGluZyBEYXRlOiAgMD EvMjEvMjAyNTwvdGQ+PHR uCEF8pRebAYVf xGUwPGsjWp4rkIamaBbtC U9kGDQqtppaPHTznD9oIY JtvPAuiZneWH8gMNFbuab ax207WmHoUBR8 ALUqhEZcM8PybX2nHiCkD KPwWNQtN0HtnGJkHFqmV9 23ZUkqWjA6UIIzhlJfC9W sLWFsaWduOiB0 p4L6Jm4Nu1ZryataB9Yyn VYeClUyMubuQPh0M3ReCs wvdHI+TQ58YZWbKS00ITb 6IRG9nVnbRClf IAXmI2QbiP1bVdDqGQWwN GRkOyc+PHRhYmxlIHdpZH RoPScxMDAlJyBzdHlsZT0 fCz3oLTZeRCEv nLlzjFEsEwMrb1bvBYXjF MjpSH2hyHfhO4KbhXQ9RX Zsk8r1Pd82R70eS3FleWQ +CVBhnDO8kFG0 bT7nZsJyPqJ0GShbF305I nWncSAfYvgid8ikd2ychN a5RxL2MAVvscQkrZtvUMF 0r9ZkMg68U76x IHdpZHRoPSIxNSUiIHZhb Rwnpb3boV0pCw8+PGNvbC T8oIH9wS0dZwTpTbQ2ORi pL943GpCrvLWj Dsued6rmm7qyfWr9QrJwW EDodsEmlEucJTS3h0HiQz 65Z1TemUomb2KpRsr9gu7 7eCNzb9P6sGH5 W7EaUDEnhrucoTUsuCxtZ J9bXPVytprrDBXhuB7gWL KiA8g0UgLqXqL6SHyqI9B ctbZ1KKZziATx NEOzeHQUyS4ranaws4vtg zhtCoLpVAOfYPy9QOb9TW NofDtvAdBrZNO2LgH8ZNC 4iCRvhP2pnSgr nbomaG3pJce+MBN0bXAxy OSPCN0eQnwmlHP+PHRkIH N1zIhvUIjePTVffN2jRMA pT7i2ZfBkAzI2 OHacA3FylmY2FQEmqSRkE IJfoYZHsG9chjezq0nqit ncDrArMVEdEZq6VBe0OWS saWduOiBsZWZ0 KuY5IHN5nXApaE9ljJmld qileH7vRbx+QmlydGggRG Z6VWc3E4PzRxq3TZQslOe nCU9flWWjWRfz Ke8uaEcikMtqHP9bCBMed wvhm068GyMpm7jtTJDjvO QtVCfbEYB0G17ha4N7SFH vKJZfOKT4fSR9 uP1axFyhfkkvoWIxpUfrj bBgoFwsTXjsBWiaG500SV LxwVdcVhGjVLj3K4VxGtv 3GXGwvEpjHL9k oIIpQRqkKf2tdWzmjPxaZ W4dTLHbwklwk594EwDjk9 esSYNedJVeFHsjSCJ6G76 hu9E3LPIfGHHw OPI3aTQ6lP0itGcocxspi GVmdDsgdmVydGljYWwtYW tdI725DXMyhFmrPzAyeKd 9V9FcBfs6DBLf pSvwYT3nnHFnXHazNz4hn ShskDznFX0vOSXfbhonz1 95PnQrr5mgWYOrbFFcEMi bXJP6P40ca5C1 CYDlLMCoLEF0gAL0dH7un GlnbjogbGVmdDsgdmVydG llYXnyZJgiV734PNJkxSn nPlBhdGllbnQg OUunLDl8M7LqCmxleJO+P B56ZHRoHI30hASgtVWnm2 fkqTj5FwTfGYOrFPW3wWx dEQowh2YgOBAj Q85qoFIsi1N3RJIeqCxsf TIeHqYpuHF9nO5pXVtdhh awt6gajpplYfaph4epnw2 8zN07E33mVIvn ZHRoPSIzMCUiIHZhbGlnb m4uoF5sIz7+UWVwrVU1vK A2hT6xRBZeDnY7ZGwcZ05 9InRvcCIvPjxj x7zqt6ithHq9FoD1RQVrr rFcyRjiLMT5i5ZsSb50N2 9sIHdpZHRoPSIyMCUiIHZ gpJqirh4hzD2w Ii8+XTMwyCK7qPR2cV2yT iJmAfB9PArtW094DlGilL NjNybzM90xP3PewCH+PHR oSyc9TKFtuGla VV9fbYIyVVziKu8nRJW4P hNqAuHyHNebE9VdMRLbyn xwptdnhJJ5JKIlLGNuvQ7 7Re7gbZtiXIOr yNZVeG7nytpwp4chyhtaK gVfTTOtTZq5VJw8UYAqyK swYiAfXZM0NhA9QHU6wZY xlD5kkAqtnaip kX5bP9AiCHQmftqwYt13d A1kXuCrBxI7WZmzBsr+SE RSYR1CUCALVWXLXZQoGVA FYM91UK56hNOl p7A6uIE8W4KrIIJcwcfgl uadvXK0ULUbAJOwhL92cF KfDHmnJk5ff8W0b906MFE gAKHwpG21Fv9t qXbxIYVdcPCWqY9imkjtb 8kiqdqtGmIbKPQyKNl4KW e6UOWqhYvrTlVeDMB3XxM 9IFW5nFDnnI5f lFywcrwksY1pYks+MDMvM LIyFVi7EYsmbSA+PHRkIH Z3fTzbFFpoYKBsfQ2oULA pS5o2UbAoLyY0 RFrpR0ExVGMiznacQh36v T4xZcNvWiY6FWvzE4Yane H1MNPjkQOoOZxpQGG5V65 bh6Y0JUFjLZFf LTH2dBZ8lS3ihBcxwpbko GVmdDsgdmVydGljYWwtYW ikG093RFTuqYuxRhSqWDa nFHTwDZ92JS56 pMOsn9S4lIU5S2IsXSVnf gxjvsvqvDX6ZCHhPYGunV 83hWPoCPovAq3tp8S6a29 6JUItSOIgvH21 Sf1ujAjcDWIaoVKRrX3vf mciv1xckoqvUiIqNPUbIX q8XVy7YBJzwDdoVvShBQY 3SoP8XBF9iMTp tK8isFdxinlvkQ8uBvo+R sQDXGnGGT09IR74pHVuv6 Q9zIC8Y0WlDANmzfkfkyl ewNL2AUPrYAKn sW21xINdSIqxXk1hl6B2t 722HXTeDAQvzK32Ra2bsO geFGCoyCPIyJ6bokmph4x vcjogIzAwMDAw PRq1HFj0RWUizGxdDkJbC TM1KnC5YSK0hUBysY3kaP plddhfnK0bTtv+S4G2I8O kPjwvdHI+PC90 BGEgES66gEUjnRAko0ims Pb7VlYyAGPaFPF9zUnqOZ mhq9TlOLMyV62wvFOzl6O 6IGNvbGxhcHNl JyEwoBN1dE0hJWcusbkrq 9meohucLqtml3gclv95cG 15K55zFHnqXVZxXZXkPLY bXEJftXoseq5u tU5tXm1+GXZfcZE4pEX1v M6qJbJwLzT1PSnfP665Kr CplBCkFyoax6fwr1wkeFr 9IjIwJSIgdmFs nUeiINJ8m9XuTh97H81pN HdpZHRoPSIyMCUiIHZhbG nlru6lkM7dLs1+NW3jk6e nup00rF22qPK+ IYQiZVW2jLdbBSxrPPKkz P3nAJheJnI1SGKlUzKvkZ 23pTDdRUfvEw5txWvoeOr nUQ6aEHDbzvhx p404BbQwy7xqRSRwyXPgU WsuXNY0Y22cf0U3GUSoEC FwTEX1oZF3oC2inCyismv gbGVmdDsgdmVy sIhsKBprVWydG479MWSln JcdJgIfkLBzO6skpfXRDI 1lOjwvdGQ+XCHxLZF6gQk cITktBPJhoA2n DQXdZ6k1JtFpQcS4TXkwY 9XkjlE4QQYhgZYwCVYunL DEiX2nucpyv5irtaqmPpD lGNFdILp1KMi3 LJWevPejNdWhAAO1TjC9U SQ7dUHmkW7dkInkaegljA 9wOyc+RklOOjwvdGQ+PHR zKRE1jYpsDNfj LJZskY8pVNGjK9v8NfDuP oL3SVsiF4QjgxX3ICHkxR RtSCTfqPEUcY4aojsxk4q vcjogIzAwMDAw XHi6IIo3BJXitLgbYoPcY YK5EwB3ARA9nYLhbZ1zrX rbbwlvpV4fOqo+TVJOOjw vdGQ+PHRkIHN0 bSpmEYwrPPQiyK1dUZTgR 1a6RaAgMiN9VTyzD6Eqhc D3NTEpuNTqNCIlfAGOhV4 xcuteq4crgbrj KmDwIFBzDAs3TBv2DBNkj OdvDmFiNHJ3DuK8AVR2iR QmaB1orSxbdyjhmB9hTld +EYT3HAE6VF41 SM30X9MvCxwugVYulQZ+P HRhYmxlIHdpZHRoPScxMD FzKqWzhAmrUT8sRw4hOVU yLWNvbGxhcHNl OiB (more content not included)... Normal [facility] S. pyogenes Org specific cx Ql (Unsp spec)Ordered By: Khushbu Marker on 03-15-2024 Group A Streptococcus Culture Abnormal [facility] Strep A Culture Onlyon 03-15 Strep A Culture Only Strep A Only Cult No Group A Beta Streptococcus Isolated 2 Days ORGANISM: Ana albicans (O:CANALB) Quantity of Growth Moderate Growth PERFORMED BY: [place] [address] PATHOLOGIST STRUCTURAL ARCHITECT WEN DAVIS M.D. Normal [facility] Comment on above: Performed By: #### C USTA #### [address] Coding Summaryon 03-08-2024 Coding Summary HTMLBase 64 OsennzxeOKc0wTp+PGhlY WQ+XQ0DYLJdJ00xiLSfxL 2bY4FTERqMZhukEUCDGFn HYvRdxcIxWD7fuVSeEYVn IC8+RA3rANCwOeevmZNub 3G6cTR3E43frr6vMOfykX Z0LRWzMdTvjqixo8ylfKr 6IDcuNmluOyBt UXQqkC61MZC1fO87Oa63r QYhoINdb2loeLx9RgSbOV UcHXV6uTtzHAusu9WkNRB qW56uzQOat6M8 DNTvfYpkxIWhCtPskAX4b H9fLLfxucxmy1tflmkjSu k6fz38fJWly2G6xNR3W1L myoB8XCHsnITe QutuiHRLoI7jyhyzw1bwf temRoSnMQWrMAn5GRe1LM LkrGwlXgDeZX61SQH1YDJ axkRhI0JoLLZx iFlkSkI1c8H4Nw8LJ9GMV lzvA2WEROLTWLdjvDW+PC 70dr81Q3YqTflcOyf7VEJ lYDR8dBY1sO2a QNHaMSbph4L2sPB6Z3Uje dWfwc1bb2nrLQLnGSqbM4 3faYYio5E9TAAruED2GWJ odLoeFmMtdP52 Oyc+NTSaiVtwh3RzHapay 5dhb6wqxHh2FfizPIVean JtgScyHAF5z4UpSq4rMRF jzGA9wPJ2iW4u MwZsDhB5RNzjP594ZnDzx YZgLrahC83jX5GskWH+PH GxQvt8FBEpeMhhRY2fY5Z hZGRpbmctbGVm hNydWC3iZNLjftgnLMAlc U1gHWCrK8e6RrDyJrW5AR ffZ0JaQXRchddvTi01vI9 bCiGrXrQ8DWku Z2SewcH9GRVqhTDnGXdfI LC9R21oz2M5WAIyJAIaZJ R0bPH1uI2krXdpuzwyxCF mdDsgdmVydGlj AEqhOQakR250WUFkvQjtG kNvZGluZyBEYXRlOiAgMT IvMjMvMjAyNDwvdGQ+PHR wHWX5qHkkMMEm hNTcERsvTo7tzIylrAjmN Q8rYMWujpdfTZQvnZ6cDH KitYJsjHxvLI5sFBEgwor ji710JuXeEQF8 ZUKoqTKyP5SzeL1jXgDyK AIvCVXpM0SmoLEnRCihF1 54NXxzIeW0RQGfoyXmT7H sLWFsaWduOiB0 t6G6Ex4Lf7KespbxE7Uyo XSgUeSaYsdoRKl9H0QrUb wvdHI+BL43ASFpHW41CPj 0TTG2cUsmWLbf PUXyL0FetH7rLpTpORWiP GRkOyc+PHRhYmxlIHdpZH RoPScxMDAlJyBzdHlsZT0 gWo7xYLUdGNDq gSkunLBsJdMkx7iwDUNjD VxuGR3wlCxyV4QowHA1HG Wnp1m1Nu39D73vQ6HkgNB +NFMunVN9kCU1 fJ4sPiVrPxP4XOucP287F pLpiXMhEpwzg5efe6rcrH n8TtC4KNZzcsRchFhgOFI 8s2YpHs37C15z IHdpZHRoPSIxNSUiIHZhb Lzwek6ieG2qXn5+PGNvbC S6dDA6dI2bLrNpWaH1BLw fF765YxIsfFKn Wofge1mid7ntaEj3UpOlL ETtviDpdQvyJNP7c7CdQd 41E7WiyTubp4FjCwn5ba8 8tWNrx3S9zLC6 J0OnEDHwiaznnKEwbGijK Q6hMAGauxybKCTqhL1wTM OkX3d7AdHrUrZ6IMhmO0H bitK3FBOdlEAd NPNacGNEwU5dmjfkd6uxq vvvVpChBPDbPHe3QGf9CR BmiOsoQgAiQOE5RdU3GQE 6mQZehT0exBdg yatusH2rDil+KKG4eRTaw TPWDC3xAzwtqAT+PHRkIH S9cFbqDUcoAFPryZ0qJIK sE5i9LnUdPoT6 SNawL6MbzfL3ODJvePYyD HFscUVIjK3rmxddh6chiw raQxFyCKLmZDf4HHb6JDL saWduOiBsZWZ0 UyX0EYY7rNGlgN1fdMuzc kvceY1nCae+QmlydGggRG K3MAb2S6QaGeh2VCZrmMg gPO9qwOFdJPfa Th6xyOwsnZypYZ9eIPAwt refl482LpCiy5jdDNWbuX QxFKwxCZA1L43zn8G0AIU uQWLoMNF0fPQ4 aX8osBhepevjhHEcmImlb hKouEegWJjqTLplC066TX UtsJyxTiRkIDp7S7AoHwp 2IFQcfTxlMV3q fIHbJHrsJa8yfPsqaSzpC I2oHVAuanwog514GzNhy4 icSMJmrNWkBBsfFPB5K92 bm2B1JHItDSLi NOV8lFF7yK6ffFlwdbicd GVmdDsgdmVydGljYWwtYW cbI556FJWjpUvfQgDorXs 2A0QoBov4IRKe kOajBE6nqGJgFFvsSq7bb OseeTluZO7aEIZijqtbm1 55EcBlp6euSOYhnKOyODn iXSL0C76ib3A0 CHSzRHLlRBU3dIG5bX3xr GlnbjogbGVmdDsgdmVydG wkPGtbTMcpB356DVCtuGw nPlBhdGllbnQg TXouRUi9S1BqAryxyBH+P V58PKXvWG31vEYabAZhu7 bwhIe0PeGcNTCqEAR5dTi jOUyuf2SeECSu X42ihCZgp1A5IAEffTuqm OHeQjRzyXE5hA3kDZgoie quc6uhinbxBtxdh9ytqu9 7kV79H56nTBot ZHRoPSIzMCUiIHZhbGlnb m9ajH5eJu0+ONWvvER7iY F0kG2nMYSyEjW6OPdnL84 9InRvcCIvPjxj j2nmq1mvhYg8ZoS6TUEim aTogSnoJTD5i1QbHc84U0 9sIHdpZHRoPSIyMCUiIHZ spGoyis8ktW8c Ii8+PYXjzTC7jMV5dP4zH lDyTtZ0XXbxI037HcWwbK NdShqdK97wK4IpsTO+PHR oAks8PWTgfObl HA3mhSShZHqvMc7uSLY2M rAfAwWnXValT7MmIXGlbg rtkelpdAO3NHNgAFJisY8 4Ni2nzCzuXKBo uQZKaZ9mtnodd5bbzympF xHsSSErJQi0CYy6TCKrfE jnOgBhOTD6CaY8UUJ9vFF eiQ9scFobvxwu vM8pG0ZqQPFpnqbaDs44p S1cYoKfIzO0BPjoDdb+SE GPSJ8VGRMQQAVWSBVjKFC CPQ79GJ44oRAk c8W2wOP2U0XtXVBmebztd ihpbBR1DWChCGEjgP00lE AkFIznRe5ni8Y9d118SIW xURVmpP53Sh9t hHdzAZGryLOAdT7nupztl 2gpqnhhTsYvJSTlNTh0ED g8AZFrgUorOkQiYIF5ArF 2SZN8nMVfvZ4n lMzlfgibmC0dOzo+MDMvM AUbQYi2NFumlUB+PHRkIH F9vLkiARpdPVKrhV2wNGC xN7t3VuIkRnE0 TIysB2PwJIOtukclNn67v U2bUoMuRqM0XLjeK0Xdzg W9YABukZByZUjbUJG1I16 dp5P7KJSqZYMc FCJ3qKL1rJ2owSzvqxpos GVmdDsgdmVydGljYWwtYW unE526LOLhsJsbQcRjRPc dOMOyDO70BN70 zNOot6B1wCE3A8IbABYwf wuwfzbmmWS6QKTmFSQlzK 47rSPcMMzwBr2us4J4z17 7UFZkYYYqoV03 Qy0fuZdwJYYjrYDWcB2nx xgko5yxvzzmDsLrECAmNB x6JGu3JZCtzVniGsBbSQF 2NoN5OAA5dGSw oW9kxQnstbnamI5nOgu+R rSKAHkIJY40SP38cTUlg7 Z6kKH4D6IlMBUjmpwnsnp jpOK5UGOdRTGo mI01oDFhWKkkFe6hf7C1l 176VAAsHTPrvA38Fx1kzJ caIAOaqMTUqL2zsxqni9c vcjogIzAwMDAw ITw0UVr1YZGwfAhbTkCtO TQ4DfF8EUZ3fKWlxJ8qpS nddiozzW7jSww+LRB6WUS 4dnmxyvj9C8Gv PjwvdHI+MZ07IPSpJC23v KKpoODpu4vzlTg2ZnIdDD VrKYQ9uVydVVsgl6OcMEE yN69wbCTah8Y2 MMTdrCyftIBnNfDceKT2j W2bZEybvaxzh6yocxxiMk qse1nsqa53qD25E58fEUt pZHRoPSIzMCUi UZFrvOaryw1ypK7lFr9+P GPebGD6qFC4gM4bVnMeAj V6TKtgR961QlMsxEAbZzd rf7ymo6rwzMb9 IiCtUCDppcZdrHkjOTT7f 7EyLe02D73iZTxbWUAmAW XwVTIlZCBlrUxqtp9efS7 wIi8+YH6bp3gm xg95qA95hVI+MBMoCXW3d NxfTAorMIAqjX2rFOcrLl P2FGArUmTgrB36rESoMEt aIg9zwBmrhRaw DA3mHWTzufsxw004UqLwn 9doNKLdwWKhKJhmDSS6Y8 2vi8J4TZBsVWJgWKS1tYJ 4eD3kkHmmsvkw bGVmdDsgdmVydGljYWwtY YkpL966BYUrvBsqEeWhsG JiQ9uqxsLGYO0cKpccnJE +ZMKwSQO7gIuw AWzhJFPzbP6kOVPqG2c4U gZxPgO8QFihX6QvjzB2CU KmvNRqGSFnzJLPfN8goom so9hmvtylDgLa OQGkYAg0FLs5DWCyqEwrM iDlNZD1SxE3DAK1xNLotF 0fbCozcznwsZ6nFod+Rkl OOjwvdGQ+PHRk VEQ8iRppTMvgAEGtvV1mB WTmC8t3MzNhYjE0LMunA7 FszaI1TAZngWVeUKJwySE GgP0eynzgp6iu zrqmBiQiFRCwZNt9SHx2H GPirEpmOuJlQPQ4MnH6HJ T1hURjxN1bsCnpnmlhrQ7 wOyc+TVJOOjwv dGQ+TLNoZAU3lQwyVSrzD PBbvT3wVCUzG8q5HgWxOk D5DLfmA2TlzwD7RHMipGB mEPGtqOJXlJ4m gwioh6azlgtaXhTaFCMcJ Vf7AFy1UGSzxFacQoVwPN F5QoM1KVO3iPMerQ8riXq vihfjnI4eQai+ STG4HZG8IT19IH47C9GgX jwvdGFibGU+PHRhYmxlIH dpZHRoPScxMDAlJyBzdHl kKK9uXs0uKQRv LWN (more content not included)... [facility] Coding Summaryon 03-03-2024 Coding Summary HTMLBase 64 StbdbayvAXc1vOs+PGhlY WQ+CK7EUTEiC48mgXIgsS 5mE5QMWZmYHegwBIJEGNt DZhPadbVuBP3rkIKtJBVx IC8+JE2vPHOfSnlfjMNen 1X8cIM6J22kpa2gZZcxwQ M8KKDbEbYptbxnp3cynLf 6IDcuNmluOyBt NKEryH61VNS3xE60Pf87f AVnlEHnf5zvlMv6MuInWT JlSFR5eTpxHVzkf0ApHKN cH61qfFZoc4W1 UYGfjRxdaKZcPnXqvMS4o N5kITxrbrzyb5txodnyJk v4ot00rDQep0G0nQU5P0E fozT9MNQlmEOa KqxwhGLPcI5abjyln2dkq rqvEsOaWWUhNUz3QSg0XQ OlzQsaTwAzYT43ZFS0HNG uarZwI1KaUCAn iSnbAqN9m1C3Ai9BP4XOV humW9ZUEOXFTGoymVV+PC 32hh81A8WdTnaxFpv4BZQ jCGF8zNF5wW2q KMSbMArsu8M2sHG5C0Nqr wWaxt9bu1mwRDLyKRteN3 0sjXTzt4K2MXVfmKL9TXV yyRpxEhOmiG75 Oyc+LHPdyOxpe6LoJorhs 4gem6nicEf5CoywBVRsdv UogHtdOQY2d2EoQj0yVMB abTA4gZV8hB9b EaNkLqI1BDotN968HfQia LUsWfrdA43wQ2EtfMH+PH TdNxj0JYUmdAdzUW7cC0U hZGRpbmctbGVm qSrwTX5oEKCdfowuVRTin H2kXSBoR5x9CdMxOfJ9SK llQ8OfNOYthaecNn25zP4 yOoDbSyX3EQyy R2CduaI5DQChsHOhZDcwR MZ8R52nv3V3NZZmYSLfJO P7hAZ2qW1vjBsyxmyivOC mdDsgdmVydGlj TVsiMEyvS853KNOrsYenT kNvZGluZyBEYXRlOiAgMT IvMTgvMjAyNDwvdGQ+PHR oJSQ3eSfyEBNf yGJbNYqbDk4hxUafiQqzI K5tCVXolgjoPFFqiB1uMN TcgRCmrQczMR7uRWXpciy xt868PnQsWXA2 WENwsLZpL8CxnQ7jQlBpR KHcYOGrX2NtkXWjITgeF1 92MPioLvK6EFAkevWoD2G sLWFsaWduOiB0 r7J2Qh5Js3ZytlsqZ7Mvt IAwUpHuDlpoARg0V2RkKh wvdHI+AP68IPRxNE82QTm 0SYA2jAplDDjc EMIrF0RdeA2oFfOdODFiO GRkOyc+PHRhYmxlIHdpZH RoPScxMDAlJyBzdHlsZT0 xTo7aHTCmRRKo cQbciQQmLsMex4qsNPGhB JaiGQ6gkNcwW5VgvLQ0WM Ear1q6Sh50D62mG6GapQK +ZYWdrTQ5eFP0 vL3jGqSmMdR4SCneG944O lQuwYXrRfylp5azb0cdwW b4JuR9VWArwmGrsHneKGW 8k8LmAx30X74v IHdpZHRoPSIxNSUiIHZhb Ryulf8asM4zCe1+PGNvbC Z3zPE0iQ6rUlGeNjK5IWm oI977KpQzgKEr Latid5bqp3xehKi5UaEzK FMaheVrbZqrDJR2p7MsGb 67D2CtlCxda6AyJtz4tb9 6xLNyk6A3aGI0 E3RdYEMiufeczHVvlUqfJ M0zNDGxulbgNRKtsA2iVR BoK0s3CdSwCaN2YOpuO8I vqoE7QULnqJCp RYEstZRTrS5zhiwnb1ony qgqIsVlKROjXZo5NXn6PF CwsNwfMsUuMZH8TnQ2SEU 4nQRccN3cyYzo wywzbI4gFcg+DOO5rZEoh HOSYX0uTnpkgZV+PHRkIH N9fNwrAJofIGGaaI2uGJY dQ4k2WgTeMbU9 PFxpY8JhvsI2XNYkoQZaV JPgsIOJaT2qzookr8ozmu rsMhCsPNJdWKl9UUd7TDJ saWduOiBsZWZ0 MkJ9ZOM2iEGcvL3kyUqhi hlozV7qEzi+QmlydGggRG Q9JQd1G7DpVft1DENotVv eBH1lcYRuZRyx Qg2vfNwlaBchRK5bNNNcj rvxq902HvPkv2ubMRIjiX AhZHorZVH1T50ib8M9ULZ uLMObAAF5wQY6 fH6amSxoxzuycJNagWrzt oHlfEfyKUvvHMafP506WO LouVrmGvLjDMm6P8JmMcj 1ZEAlbLipDO1h mUEiHYbqDm8utReyqVwaN V0uFGOzclntl328JkInw9 ieGSLjcIBbZBxmCKK6Y63 oy2T2JYDxJMCg ZPP1aMW6pE4jtLhtzaiyg GVmdDsgdmVydGljYWwtYW nvK836XSJbkYdpYlRkrGi 6A9UeHza4PJDn nTftQU3miBGuMCqyFq6ak IoxzYndUN2mAUSnbxlpr0 89QvDiq0pnFVTzaPEdJXi rWEB8E45pd9M0 DUUzMHXvHLT2rJH1cK3si GlnbjogbGVmdDsgdmVydG skFOoaCAwsS543GFJruKl nPlBhdGllbnQg OCpnXYl8U2XzGvmxdQV+P N62WVRrCV80iZThhOUwd2 nlwSm2RoMbPZHbHDH7hYk xWSkqq1AoGHWr H86qbCGlz8J2SMHoaTwsi JUeFwQxjOH3cC9jPLaidq vop3csukjiMtyeg1lpdv3 6tK16C44hQAsb ZHRoPSIzMCUiIHZhbGlnb h7kuG5vVe5+KIGmrQF3kZ V5bS1yPEPuVwJ3XVbiH96 9InRvcCIvPjxj n2njs0eomHh4AoJ3UVVyh tGffByzOEB3g8VfKd36U6 9sIHdpZHRoPSIyMCUiIHZ ugOwgpr1xaZ8z Ii8+HRHnlTL9eHY3eC1bN jJsKeK6NManU102AxJbbL ArOorlN48qA8XlpIW+PHR iKrx2RBIxxWcy SK4wtEKzBQbxTd8uGYE7N gTaHmHyQDrmV7YgUMEvdw oudvsccMU3GFQhBXQouL0 6Ow8jjZhzIFRi yOLUpP2tqiosy4hwkbgpP gKzHMViLQp0ODw8WLVzoO soTxBcZBF5HdR1EEL0lLY hsA6ebNjtbyio uA1uJ2QjKZPujmhtZr85f F6vFnWxCmO0RCwdUhu+SE DGBL7KSIUSFTLIETJcHQW RBA00DD73rWUl u2L6xTA8N6RyZNWgnezdu qcmsKU1YDZvDWIowI30aU ZoIKupGq2xb2Y5a476BLJ xZWKbnW25Zi6x tLuvQTHwyLEBoJ9snkodi 5zktxckYgAdZIQqUWs5BQ d7PTJueAmyHrWoSCN0SwT 8ZDD5jXPuaV2n yMogjopcyC9cVzt+MDMvM YBiGEp5ZHxaaJL+PHRkIH Z1sYdlOYhgFKAdjN4iFLZ uO2a6AfVnTmO1 NHnmY9ZwNTVddxkqNu79r K0rXnQfRgY6WAtnD3Aamo J7NJFjcSMgHKelDJC4H09 vn3T5BBMrDHJz YOL2zTH1fX1gzBsboqjif GVmdDsgdmVydGljYWwtYW hzO538AXBmyDhuUtApUXf eZASpYO97OP04 vOAwh8P5tHC1R6AmLZFjp ihxjdcmyPN3CZQqUAMzyL 98lCLfACxdNa2px9V3g02 2JPJaAPHziD40 Hv7ygBoxVZJgxPBYtQ5hs rrxt2ugiobqIhOjERPxDK h9MTi0DSRvhVdvYoSpBHX 2RmC4GQA8kSPp wJ0spUukelptyE8pVqh+R hVJBDsVAS12ET30pPBjf6 J5zME6U6XwAWHaidpksas doWN8CWPxSYUg cP29dCXnZDhbAi3ix2U2b 137EZBlPYWkyR91Gr6vzI scXFKgyRPLjZ9pocbib2f vcjogIzAwMDAw JXw7HVd4JFCagMkgBnNiS TZ8ZmB2HUY9mABayD9nzN iogcltcA8gHyd+DXB7MQU 9jtejxqb7Z2Wg PjwvdHI+VG58EHMoFL13m PJvtMFve2uljXy6RnSvUW QxNTE7qDeoKTmld6DyUZX uX51vkLOtm3K0 XEBbkEqxqWBuIwCckOC1p E1aPSzfsbqjo1fdmqagIx exu2rqvx31kJ14N17iOFx pZHRoPSIzMCUi PBAvuLatke0htV2gEt4+P WZrsMG2gRD7mS0aXzNjDc H1EJxpX103QySmrZPeAme do7uvb8pvjJu6 OwHvKUUbjbKwkGylBQL1n 9IjLh95B80lSRqgPBFxLG LeWSEaJDMlsYcpti9dnF5 wIi8+VL2lb2ov qb60gN35bTA+EUHjTPH7k CgaMJpgQXKtaS3bHOvtBn J2VHDnEtEmsW13cZFsLSb iGx7alBotdRib OI0kNEPazufur475BoJtx 6gnTXNmqUZvRNpuNKW7E7 9bn5W0POGyMPQsZPD9pDM 8pI4luEvcbted bGVmdDsgdmVydGljYWwtY XlcB084XNIqoUspBxRhlT BmY5mvxyAJFQ6iSyslxTM +IUQmKFM1bVdu RIssLXZppW1vKJSnZ2j7Q mDtMdG9SOxlC9OsbkD4OG TyxKImJNSbxOGLjB1jniy uu8cesfbdQlDh MMQwVMt8DQh9GOKjmDeqT tGwYGL5CyA7APU7qRJbpT 9bmVakapulvR0tFyh+Rkl OOjwvdGQ+PHRk AWR8iZrqFMwvSLDmiM6oY ZDfE1m7XwKoPbA5LVuzV9 UwpaP8OYJkhIXiXWHxlXU KkF4gsshje0sg fyxzUsYgDBLsSBf8ECo0G BQjdUmkNxTwBTD1BvX2RC G2vXRnaI9ixVfbzziejF9 wOyc+TVJOOjwv dGQ+VZDhHVJ7fAznOWmdM PCqhT5dADSwJ9m2ToYdNk X7DJemJ0CzwmK6NOYemDA zNONozVHMfH0v sgvcs6xuvhewNmXgDDRcP Vf6HBk4SJZlzZkfOhBrLA V4MvF4UNQ6oAVyxC2ouYu aokxfmP8cMam+ URS2FVX2HN05XE81H1FyF jwvdGFibGU+PHRhYmxlIH dpZHRoPScxMDAlJyBzdHl hXK0uAc6rQVKq LWN (more content not included)... [facility] Consent Formson 03-01-2024 Consent Forms [id number]. 00OTGTIFF [facility] Anesthesia Noteon 02-27-2024 Anesthesia Note Patient: CHINMAY [...] Charted Temp Temporal L 36 DegC (FEB 26 06:48) Heart Rate Monitored 70 bpm (FEB 26:) [...] on: 02/27/2024 10:36 EST] Shahab Rivera MD [facility] Anesthesia Note Patient: CHINMAY KNIGHT Age: 48 [...] Cerner NKP Tobacco user / SNOMED CT [id number] / Probable Histories Family History: No family history items have been selected or recorded. Procedure history: Facet joint nerve block ([id number]) on 01/30/2024 at 48 Years. Comments: 01/30/2024 10:50 REJI - Renee Dean MA Bilateral L345 Foot ([id number]). Social History Electronic Cigarette/Vaping Assessment Electronic Cigarette [...] Reports occasional use - 09/01/2023 15:08 - Freedom MATA, Charmaine Balderas Physical Examination Vital Signs (last 24 hrs) Last Charted Temp Temporal L 36 DegC (FEB 26:48) Heart Rate Peripheral 77 bpm (FEB 26:48) Resp Rate 16 br/min (FEB 26:) SBP H 147 mmHg (FEB 26:) DBP H 87 mmHg (FEB 26:) Weight 98.2 kg (FEB 26:) General: Alert and oriented, No acute distress. Airway: Mallampati classification: III (soft palate, base of uvula visible). Mouth: Adequate opening, Dentures ( Upper and lower dentures ). Respiratory: Respirations are non-labored. Cardiovascular: Normal rate, Regular rhythm. Neurologic: Alert, Oriented. Review / Management Laboratory Results Plan [place] [employer] (ASA) physical status classification: Class III. Anesthetic Preoperative Plan Anesthesia: Monitored anesthesia care. Anesthetic plan, risks, benefits, and alternatives discussed with the patient and/or family. Patient verbalized understanding. Informed consent was given. Consent was signed by the patient. [Electronically Signed on: 02/27/2024 08:40 EST] Shahab Rivera MD [Verified on: 02/27/2024 08:40 EST] Shahab Rivera MD [facility] Inpatient Patient Summaryon 02-27-2024 Inpatient Patient Summary [place] [id number] Patient Discharge Instructions Name: CHINMAY KNIGHT : 1975 Patient Address: [address] [address] Primary Care Provider: Name: Provider, None Phone: After you are discharged if you find you have any questions, please, call [phone] ext [phone] to speak to a nurse. Discharge Diagnosis: Prescription Information: If you have been given a prescription for narcotics, seek immediate medical attention if you have any difficulty breathing or any sudden status changes such as confusion and sleepiness. If you or anyone you know is experiencing suicidal thoughts, mental health, alcohol and/or drug addiction problems; contact the [facility] 07/10 Crisis Hotline -Text 4HOPE to 405451. If you received any narcotics, sedation, or [...] business decisions or sign any legal documents [facility] would like to thank you for allowing [...] (in otherwise (more content not included)... Normal [facility] MAGR Intraoperative Recordon 02-27-2024 MAGR Intraoperative Record MAGR Intra-Op Record Summary Primary Physician: MURALI WATERMAN MD Finalized Date/Time: 02/27/24 09:06:32 Pt. Name: CAMDEN CHINMAY FLOYD /Sex: 1975 FEMALE Med Rec #: [id number] Physician: MURALI WATERMAN MD Financial #: [id number] Pt. Type: D Room/Bed: / Admit/Disch: 02/27/24 [...] Kokinda, Diane RN Role Performed Anesthesiologist of Silk Screen Cutter Silk Screen Cutter Record Time In 02/27/24 08:41:00 02/27/24 08:41:00 02/27/24 08:41:00 Time Out 02/27/24 09:06:00 02/27/24 09:06:00 02/27/24 09:06:00 Procedure Radiofrequency Radiofrequency Radiofrequency Ablation(Bilateral) Ablation(Bilateral) Ablation(Bilateral) Last Modified By: Noemy Bermudez RN, Diane RN Kokinda, Diane RN 02/27/24 09:06:20 02/27/24 09:06:20 02/27/24 09:06:20 Entry 4 Entry 5 Entry 6 Case Attendee Maine García RN Guilherme Cornell RT (R) Merlin Lemos RT (R) Role Performed Silk Screen Cutter Seasonal Driver Seasonal Driver Time In 02/27/24 08:41:00 02/27/24 08:41:00 02/27/24 08:41:00 Time Out 02/27/24 09:06:00 02/27/24 09:06:00 02/27/24 09:06:00 Procedure Radiofrequency Radiofrequency Radiofrequency Ablation(Bilateral) Ablation(Bilateral) Ablation(Bilateral) Last Modified By: Noemy Bermudez RN, Diane RN Kokinda, Diane RN 02/27/24 09:06:20 02/27/24 09:06:20 02/27/24 09:06:20 Entry 7 Entry 8 Case Attendee Rukhsana Bang MILIEU THERAPIST MURALI WATERMAN MD Role Performed Scrub Personnel Surgeon - [...] (R), Renee Dean MA, Truitt, Regina CSFA MILIEU THERAPIST, MURALI WATERMAN MD, Noemy Bermudez RN, Merlin Lemos RT (R) Last Modified By: Noemy Bermudez RN 02/27/24 08:44:35 Patient Positioning MAGR Pre-Care Text: A.280 Identifies baseline musculoskeletal status Im.40 Positions the patient Im.80 Applies (more content not included)... Normal [facility] MAGR Preoperative Recordon 1 04-29-2023 MAGR Preoperative Record MAGR Pre-Op Record Summary Primary Physician: MURALI WATERMAN MD Finalized Date/Time: 02/27/24 09:17:57 Pt. Name: CHINMAY KNIGHT FLOYD /Sex: 1975 FEMALE Med Rec #: [id number] Physician: MURALI WATERMAN MD Financial #: [id number] Pt. Type: D Room/Bed: / Admit/Disch: 02/27/24 [...] consent correct. General Comments: [facility] arrives to [facility] ambulatory. PT denies cp, sob, cough or flu like symptoms. PT denies pacemaker/defibillato r or sleep apnea. Finalized By: Marta Sousa RN Document Signatures Signed By: Marta Sousa RN 02/27/24 09:17 [facility] POCT Glucose Levelon 024 Glucose [Mass/Vol] 195 mg/dL High [address] [place] [address] Comment on above: Result Comment: OPR_ ID=IN_LIST,TGC FLAG = False,Meter:[id number] Structural Rigger:[id number] [address] Performed By: #### 4 [id number] ####[facility] (DEFAULT)[address] [place] [id number] Glucose [Mass/Vol] 211 mg/dL High [address] [place] [address] Comment on above: Result Comment: OPR_ ID=IN_LIST,TGC FLAG = False,Meter:[id number] Structural Rigger:[id number] [address] Performed By: #### 4 [id number] ####[facility] (DEFAULT)[address] [place] [address] Patient Handouton 02-27-2024 Patient Handout [facility] Progress Note - Provideron 1 04-12-2023 Progress Note - Provider [id number]. [id number] [facility] Coding Summaryon 02-10-2024 Coding Summary HTMLBase 64 OjlefcbpCMg4qYi+PGhlY WQ+TW1SPSZmS15loFXacR 4cN0QJOVhEYsztTYTCSPm TOdSplgLcJN9jiNAzGMBe IC8+XF4eSGScGorbjSBhj 2C1dYT0T65zpw7jPJxntI B7FJXpVeAetcjwx3trqHw 6IDcuNmluOyBt AKHhzK75PPZ9jM35Rd46s VDsoKWim5xlkFd0LvBpNP JeZGR3xNheXLkyf0CbSFL rL57lqOQvc0A2 DEDoeQxabFUfMkRndTW8p T9oKSxfzfwox3qedjmkCw u4wp57oMIul2D4qDR0W3E mkjA3QQEwhARg RlnneTHHhA6zuvozi3nil ssuFaEvRYOfHJa2PUe6TQ XacUsfVzGeQR07HBC3ESV lxcMbG1UkZXQh tGejYxT5r5J4Fq7II7VBF rhmJ2KQEANCBVgriYZ+PC 64ld35Y6JcGclvCdl3SOZ eLBY5uCE3cW0s QGExLRsxm8V5lJU2R9Wkc nCtkq6yl1oaVNSlUGlyM8 1jyCAcc6Q5PNLlsUI0PMD fqJeuKdJrsV26 Oyc+AJXekNkvw6AsOvamm 7inu3lnoTs7NqnxFNVgnq JicVlhLTH4t1MoIe5gSEB bzUR2rCZ8fF4f VnSeXeI5DQhiX021KoKiq DCeGewzU41iF3JzzKR+PH IgZqm6IDSifQtjSG7qP3G hZGRpbmctbGVm fEyxRC9uDSEdxoxnSTSdl H0kFANpV9p3IbHeZzA6GT gyL8DbELIaylsjLt61zR1 dBfGbAbW0AKyy W7VwjwX2MCXccJQpNDjbZ QK3M95of8I8JHScVJJrFE F9tRZ8mX6lxWijuvaysGK mdDsgdmVydGlj YSiiXLllV042OLBfvKzfJ kNvZGluZyBEYXRlOiAgMT EvMjYvMjAyNDwvdGQ+PHR nEDP8jPquBWSq cJRcCGubEy8gdHpfuKvzB G8iQFOwyohmHPMkaB7bMO HagTJmyGjiHU7eTOSnagg st837UlYbCSJ3 IMAvsURpW1BzaD7oFrBuT LPaVEGpV2QesXNwJVivC5 57MIahEbU2ZTEwvoByO7V sLWFsaWduOiB0 h7Y9Ht3Pe9OkeueaI1Ngv LGlPeXjQpbuRUd9U7NbJi wvdHI+RF85SQRvEL12KXb 5RUD9qVxvKGjg ARYcX1YjiW8rRaJtXOWyS GRkOyc+PHRhYmxlIHdpZH RoPScxMDAlJyBzdHlsZT0 cNf7cLJXdQEZs pSgvvRDtHdNcc1gaCJQlZ NkxDT3wtZuxR5MdpOH2AM Zlm2k0Ep35G77qF4IawZZ +IOLcoII1kYU0 nY8cYvSwIlW2USctH453O jJcyAQuOngwr8tos7tasD z1VcH9LTKqvmEocMhxPZP 2n7NkHu51K27z IHdpZHRoPSIxNSUiIHZhb Pgefo9fcP3iKd8+PGNvbC Z3kNK7xW7fWxWpXaB7NCi hC670UbThbPXs Szhiy9luz2uqrLo7HxGwE OZxkgTxaIduBXL2a3ArVs 33Y2ImbDnxq1OaMaz3zi6 6rEFhf3V7dKV7 V2IwGZOaalkfbYCseSltW N2bWHEnamnmCAUhmQ0pAB CyK6n7TrVgKzA9STjhB6M fesZ0LMEwrUMo KGVitGZNoY2aerwdm5evv ajsRgHzATPmAFy3UEx9NJ TylIvhFpItSXH3BpG6WKL 3kVAzpW0xpTme vgktqH7fWfb+PWL1qMBjk TYYAS7jJdfbzXE+PHRkIH F4jEgxJKlwMQDnwL1uQKE lR7q9YjBzEvB3 GWaoS4WzzfV9XYAwkOTuL HElnXCFoR7fkqcdc8eqbh tmGfXlRCKfZQh3KWe1LVA saWduOiBsZWZ0 WxO6WKU8uMJbeV0opTgzu qgyoD5xCdk+QmlydGggRG O3BOh4W6JgBfb2CMZnfCe pRD8ebECeWUdi Cr2uuQcuxRxoXA9rSJCtt vbfg261HmKkd4doDIRbtS ZlVUitCIK2H87oq3N7HUF iIHEnKFV2wJJ8 oS5slLzjaxejdJTbyBihw oDpaQqfDGnhHSbcI792XQ DkmHqjWcVjAMv0D5TeEcu 9ZKRpoUroHG8b eDMbBZvxSy0guFrymTeaG N2wKOQpivdcc082EyLry6 geEFSbmZTvLQeoOXM7I48 pn6P9OEMrWSXf SFR2kXX8fH5wrWmfjiixw GVmdDsgdmVydGljYWwtYW mmJ073CGKcsZvlCuBiqSg 8I4ImLwx4YHVm pGqzSJ5hqDTzVJaxOq7an YdtrZqvBB0uKJLdacexm2 51SwNpi9ypNZWidLCeUTe wMJC2K39ue0Y2 YBUgGSKoNOF9zST3yZ6wi GlnbjogbGVmdDsgdmVydG vwCQbuVQjrD400UOSewDo nPlBhdGllbnQg SSxoOUr5P1AvYeeziQH+P H78UJMuML48wBXuzOJrn9 fkoSk7ZiAmTSEpYZR0bVj xDRoxr9RnNYIj G98ddHVoa6J8VKEjhHozz BRaLwIjnWE0vB7xSGnbek nnu8eodimiWraqq3sduo8 5oR58T34iDEed ZHRoPSIzMCUiIHZhbGlnb q9igS9gFt4+HRKbtZD5qR W0eU3uCANkVmC8GEviY27 9InRvcCIvPjxj b6hoz2apuIz6AaJ6PIFef dJwtEbvRHL2e8YmWl39V6 9sIHdpZHRoPSIyMCUiIHZ ktLpmcj8jnW5b Ii8+XDFnjMN9hQU5tO0aJ iSjSaQ6VBfpY263KkXktW ThHdjjH77lP2LcjVW+PHR rKaw0VVWrtXiv BM3nbTAuLSexMm3nMQI5E xKqShMlLSniH9IlLNAofi ctvcyjxMT5IFNgSEPikB9 7Iz4fzHnmIVDk xMJWnP3nmjlfl0lnowiuH kPiNZYmVMg0WAu3UEBbfH svRhIrVFZ0TfD2JBT4cDK dxY4vyQxobozq nY2rS0UzCBIpmozaIm80i A7yImEqHaT6PWjwCzr+SE TOWA9RNEYPHTJFGGPwKTQ BZN03YG43bZHh b3F5bTO2Q8YgRFIckpblq zwwuLK7PYVdMKOynC36pR IuJOyvPw5mj9J7v052HYV hTHBbvT08Fq2q dBlpZLKbpXDGiH4szfzjv 0kxvlakLiIzZENaZFt8WT a8QZUvmYjzZmIeUYS3DgP 6LDR1xXDbtI3z tHcthnpblE8eBxd+MDMvM HIuCGr3SYtktJD+PHRkIH V1hOkcMEvtISJviS1pNAP bN7z0AkJwHqU6 JKxlD2QoLYNiqwghKl43e V1zHpItLyD5HSycD2Iuiz T0SKPemDYzVOfmDDS3B50 qb4C3HSEeAEEg VJH0fLE5uH2cyMzamekhw GVmdDsgdmVydGljYWwtYW djN334MLDqnYjtCsBoTGk gRGIuOD97PI91 rVCtx7I2zJO0M1OdOWPpc bvgkccxkVX3EFHjTEEryH 43eXXzRKwhXq3ye0D2l10 6CGQwYFOweG14 Yu0hiMnrAOYifGIDgV2fj fbfz9fzyhakOmOrUGYcZM r0DOz5DMPnxSyoHcKyZJV 9QoN8ZVA6sHCg dL5wnTbvkqswjI1pRhl+R mTXYLbFAV54ML01hAYzn0 E7qSF1H8TwAAAhmiuurad mxPP8HSYeDODc wR63vTQoEYlzKr4dy7H5j 182NLAoPDVvwS90Sg2arH uiMADgkBAFqY9ezduuq2v vcjogIzAwMDAw EJa8UKl6OVOkwRbuEqBlM LZ7NjR6YEN3tDLkwE2zoB tlorbmbU8hMqc+BJW9WJB 0tjfmlyg3E2Sw PjwvdHI+ZM49AACgRP73h OIaoLZao3rzdSq3VgWaZG AaHZI0rXpiCEnbl7TvIUM rO31zuOLsd8Y9 SFIycAlftKRjMnYsbDQ9c P1fMPqllouue8ntivbwHo msf1ytfj25fB14G82pROy pZHRoPSIzMCUi YKShfXfepj7alD0aGk2+P XFxnPQ7xWA4lZ9aMbVjTj A6ZEqhY325BiPmfKTxDpt ov3lfq9mbjMf7 BkRkEMItwnNknOgfIBZ2r 4FbCt14L81vOQeuXIFaWO TuLUVwDMZzgNaoyv9ohU3 wIi8+WK8qq6eg lh30rU73aYS+FMUlNST3w XwuEFimTGTesU3xVRqzQj O9HZWnDoGclE78sFXxUYh kHi6ahDgigDst VG9mWJZgpcrqv104ZpBuq 1kcIBLkbIEoSEysLPN0P7 8ql0X9YJAwBVLmSWU0zGL 0yP4iwInyakgq bGVmdDsgdmVydGljYWwtY IrrM414KOEupVaqJkYqzK VcY4pzrnUPIP9mBwcgaCQ +XBAeCCK4tUwp ZHauFJPxzE8vIWJmH6e5J rRdPwZ1YUdeA7BicyU3PO PgtPGjHECgxFWPgE8cpuk os7gpodrbNtPb WTNyZMs0CVk8ADSsvApsE hLxLRL0WnK1QZR0aFNhlN 9gyOsscanurW7bUgv+Rkl OOjwvdGQ+PHRk JQP4uVrzONxgQYYphC6bG VUpR0q1GqWdGvM6YGxtH2 CkvdE2VZSupLJtEPLjbVW LlH9ewxiub3wg bafbNnUlMZNaNKn6ZKb5Y VAelDvxAgMqNDI9ZtP7VD R7cRSyuM6leOrofvtahB5 wOyc+TVJOOjwv dGQ+RFFcGCC9kHqnTPsrD QHttU6pMLLgU9b5UpXvYv I3LDzeO2FqslZ1DYQroTU gLCWvsHSUvP1f onoxc6jxfywxMjLyFXEeN Bo0WCy4IBFxkMrsFcNpSK R1HfJ3WDI3qVCffZ0nyIg vxuarsK4aGmf+ WNA7QMP3GX52MY05V7WsZ jwvdGFibGU+PHRhYmxlIH dpZHRoPScxMDAlJyBzdHl vYA6dUj4vHJYq LWN (more content not included)... [facility] Coding Summaryon 02-09-2024 Coding Summary HTMLBase 64 MzpsgfowXJn3lJs+PGhlY WQ+AQ0DXOEeN71lkTGifJ 7sL3ZEHKiLZvctIGETXKw LWkQvyqQnTY3bbHWeHANy IC8+TK0zMYQoEdlkcRCwp 0D3yJV8P37ydi9oERpxaL K7ENUzJaVsfsbcy7oalXw 6IDcuNmluOyBt RVJynR38QBR6xF59Ds90k EEtkJUye6ruzHj2JlJzKY SoZGW3pJvhDIvrb6GzQYJ uT68anGZdy5H9 IEPzxUstaNJaGmSgnBE2d N9mGTawvpasv5qkibisBa x9uy36tCKgl5O9xSR5G6K oghH1RQKwwSRs EbzgePFBoE1idpbfy8adg hzvJwVrWMJxMVn7CPo9CI FepJdwYnJqZN41NSJ4WCC mxmYwC3TqSYBx tFtmQzZ9k8Z0Hb3JJ6QNL rjnY0CQKGONSMvzhZC+PC 67rf91A9TzDtknEdr6DGT yFEQ1bHH5sI2f YLZfCRmim1W5zAY6J5Obv uFehf3ck5dlPHUnAGksG6 5ckPCuy5E1BIMvjFS3HFL mdEbxLfFxsY98 Oyc+OTYfkWdlc1WzRljss 9eik4pesYs7IepjBXWfhm BuaQebNMH2p8AcHn5aCAU atKU0qKY7nC1i OyFlJhG3XBqaW966LoVom DVyGvdoD39iT5FxzOR+PH SnYtj9YYBxvXqsMH2bK6X hZGRpbmctbGVm uDcoER0uZJZnfqbkYJRhr U0yPTCvV6h3YsGuPqR5TC ncX1KaSGMswkelFi30xB5 aKeAtOiH1CIdt P9KivvL0QKKgfKOmAVvbX JI1I24wb4Y2PSUaHDBfVM I3fZU6mE4ceUczcqvxbGB mdDsgdmVydGlj PCehINgbC514JOKveYmdJ kNvZGluZyBEYXRlOiAgMT EvMjUvMjAyNDwvdGQ+PHR uSAW3tTdvAEDw aYHxBEsxTz5jjZphlQfpA A8sFEHstccxZSTizJ1hWB EgeKGkfGauLS2zVHHokhy ke974YvNcQSF3 UKFydBBiP1YvvN5aDhOxC PUvMTXvU9YyvQMcVAtdQ5 91JJuxUsQ2IALnyjXhM5X sLWFsaWduOiB0 s2F7Vj4Qh8LsoukoR5Iwp HCgYsLmVxjzFLu5D5UfXd wvdHI+BM72LIGjUW09SYl 8FHN7mYspMToa RTBgZ0MdtZ6dTwFuNPHeS GRkOyc+PHRhYmxlIHdpZH RoPScxMDAlJyBzdHlsZT0 sOx2pFFFyIGIs kCwacHIyBcVsq0vpFQDnZ YrtJN6wjHfiZ1UptZJ7AH Kpp9w0Mf61Z31xA7CilYK +ZXXzsZK5uYM8 pE8cKgGrFmP6LVknW917K lSgiEByXjgrq2oew0nmpO n7YwP9OXEdhxCbiWjhCBM 2d6CfAj18N75t IHdpZHRoPSIxNSUiIHZhb Ravld3fiI6aIn4+PGNvbC A0iWW7eF7oEfRdHtO2MTv qY541TdDhiOSa Bcycv6ecc5yjfKf0PsMhG EVjvsRitSlzLGT8n1BpIc 57U7JhfKbbp3KdHmm8xf5 3gQXyd6Q3nUJ1 D3QaWRJwmppdeSHwgZtoA Q3jHYIxwegxCRDxrS1sQK QcE0h0HoCgLlX3PZunS6F btcU0CIUcvIBx VLOuhXIUyS3osyobe5tei frzIyUrKYKoYDk7MVl5AJ IkqKvgVuXjEXW0RvE2LII 5zTEjjH4igPjj ncogbW5aTec+POZ2jOAmm RNSWO6zAjjpmGJ+PHRkIH C0kVxjKSmvJMSydE4pUCI yJ2d8BcXwZnF0 TSiyA1GdajE2WWZrhXIcX KMciYIMjJ6qvgbvb0ltmr viTbHpGQHuRVw8BUm8ZVY saWduOiBsZWZ0 AiM2FMY4jKXmyQ4pwJjat keixG7lPqv+QmlydGggRG L5YAq3A3MbXhr3KLEfmOn xYI8bpPSrIJxn Jb9oqIpmzWahQB6wXPQlo ipnz041WbKtz4lgCSRuoT GfTOgbWNF6O30sz7B8UUY sHMFzSTA0eYB6 zA6vlApigkhrkXYwtYsfc sOjlCceMQfuGHofZ167EC QhzIfhDyYcJBo4K1OiCcn 7WYOplLswSD2n fZTzLZseEx4pvYrduYsdI L2lRZXjpkqxt567PxVin4 ynLYEpwQEaIVfmWVG2S65 bm7W5VSBlXOOo NHP2nZN3iR9iqDuuwkbls GVmdDsgdmVydGljYWwtYW uoK037TVPwmQvkJwEcrAu 2A3LuUtz5YKSy kNxeCM1hyVUzQIdqQy9om SdgzUstIR8oTTTteoqkd5 75ErGwm5tkDEJddTEvRCz zSNX9C85lz6G9 IPLnKGBcSPW1sZJ8cU4ya GlnbjogbGVmdDsgdmVydG gdENtlDCcsT358NXVbsNe nPlBhdGllbnQg TJiqOSj0J4UvInrksXY+P K07ARZnUY26tVGrzHFer0 boeFv0IwOgSCUfMPH1bLk wVPbba0JiQGSh Y23eaTSwg9F3METmxDpza FEoBwScjPC8eH5pFRwgtt fvr5acgzlyJkkvg0vmqp0 9lM64K73xJWsq ZHRoPSIzMCUiIHZhbGlnb n0ioU5sHf8+RIXaeOA4vI A0dA5aUGIwAnS2JSgxY65 9InRvcCIvPjxj g1gsa4wohWf2UzB3MDCqe xAaiAkrRYM1y1RmRd03K6 9sIHdpZHRoPSIyMCUiIHZ plZnlpg6ekS6k Ii8+SADwhZG9yIN4lF5dM iVlTyG0GMqpV727YbNcpH GcGsiiO86cP1LieJT+PHR fUll4BQPmjXlj YS6wqHIaBLbrEp2bXVA4N xQyVcDvGJquO6QoUPAwxn gvnjueuIH1AFXyQGNuhK9 6Bp7thOgsMWWi dXXQtJ9qenwfr9tfqqazX cMdKVSpJGl8KQz1AQDflY gmHqCmGAL1JiT6CXS2gNW ibW5ssAfffyib xD7wA7FnAYHccproGe05g U3xZwTaBsV2ELojPcq+SE FIOT6IKSZPYBKNUOKpKCA TLM56WI71vNZv q8A8iMA5Z4NrOBWxnknkw nljmXU7RUQyMUMdqU48hL LcSBuhIb5ex4C2t864PHG mVPJmnL25Du7l rStzLKRerZVGvV0ynnhmf 7pofbmkSeEpOEIbCSk5NY h3HKTgwXowZpDrZBJ0MlX 9RVU9mKZmuM9u cGwwelcxgU0eHzy+MDMvM FXxGFy9DKqqsME+PHRkIH U8iVejLPicJJTjzM1hTJM bO2s1OxVvLkY8 ADniH4IqKQFgpxnlYz74d W4pFlHwZwF5KVfgQ3Wxdt P1XRGewZZlPHqxCWI9P82 ph3R2ZFMfFACx CGY0uAJ6vM9ihPfoyxnlb GVmdDsgdmVydGljYWwtYW nqF805TMSdhYrhDkZgCKr bTMQpDX93HK34 uTXui6B7xXU3P2YlZZVwx uobrbyzmJV4MGXbFZTulF 21sYJnUTzjFk6fj6P3s78 5DVEoQMLzwR75 Ge8xqJotPTRqtQYLfQ9cm mhyy4ghmgmiImBhJXRnFR b9EKk8BIQmmPgfXaPaVVD 6NoS4MBF6sYGo kB7eiOpyehxtvW1pOyb+R jJSPGzTPM54HU80lGNkf9 F6gUC5K4LtXAEdvpqrdiq njVK3YOQpEDAi lC93hQYcRYmfUa8om4P6a 109OHOjFMVlmM95Ok2qzA czWOKezSCAlU1cdwnmy2k vcjogIzAwMDAw QAz6DCh4ZVDueFfaTdZrN OE8ChS6GCU9bCUrfM1mhK dtuxjlxN1yHak+K5X6Y3G kPjwvdHI+PC90 VQKxLA02cIDbuKWpm1npx Ui7SoEnNSRgSEE0hYrgFT jih1NsRAQfY89buCBxu0Y 6IGNvbGxhcHNl GdJmtWY0iX2kLNbwvrpza 3tlkvbvBgckb2pukz68fH 70R14mNWpcDPUfKUSvZYK cVUAhaAfcus8d zP6jVx1+OZWibEA3cDB7u O4tPfAdXsL3MGoeG758Tv JqvBSuNlbik0zkg9duqCd 9IjIwJSIgdmFs hYwfSFH3e9LzJj34M01rV HdpZHRoPSIyMCUiIHZhbG xocf0esJ5bQb0+LM8iw9d wzm06dX73tNV+ GOLeKNV5mIvlWZapXUArp V9vXHcmIiZ4PQPjTtIgeY 76eUBkYBfqDj2xeSlduOv gBU7tJAUjofto j216PaYbh9rdITUfjZJkE KdkVWJ4C83wf1L3WXSzRA GuHNA2cAJ4iI0tjBacmju gbGVmdDsgdmVy nJaoGXpnCKnaK335JFJaa LscAnVttZEzN4rrbzPRIC 1lOjwvdGQ+DYLtFTX4wLd rDFruBCSdxK4u USWrC9e7DaYfPiN6FYdlO 2GirmK9XLIjaLUhZBWewN DNkI8abzqmr2dcfnmlTsC rUTHeDLg2SQx1 EZQuiKrzDcMgYAO8LvT6T KI7aSEulT5vaHchkfzleY 9wOyc+RklOOjwvdGQ+PHR sOXT9aCevYRhp AZImyU2tFDJuB3z1KkXsU zW9HKcqA7UsdrD6HVOoiH SqUBLrdKPPzR6npgixz9y vcjogIzAwMDAw ZVt8CAg5VIRloGqrJtLbP DE7UwO5HSB2jXBgxN0doI uxilxirQ6aHnp+TVJOOjw vdGQ+PHRkIHN0 vMngNQhwSFJnqG0dUDXaY 1v1SmUoSpA9VYjqV1Trbd M7JZHqoKQbXVJepNTKxS1 duktwf0erewkl OfYjQQItOJp7OKu3CFUzp QnvDxHeLZU4HfK2HER1pS ExiM7vrNwwqoyyzH2hIvk +ANL4VJU8VN62 IT85Q1XvWwsdlIQfdDU+P HRhYmxlIHdpZHRoPScxMD FoZwWqcQzrYP4fDc5sUOI yLWNvbGxhcHNl OiB (more content not included)... [facility] Consent Formson 02-02-2024 Consent Forms [id number]. [id number] [facility] Inpatient Patient Summaryon 01-30-2024 [place] [address] Patient Discharge Instructions Name: CHINMAY KNIGHT : 1975 Patient Address: [address] [address] Primary Care Provider: Name: Provider, None Phone: After you are discharged if you find you have any questions, please, call [phone] ext [phone] to speak to a nurse. Discharge Diagnosis: Prescription Information: If you have been given a prescription for narcotics, seek immediate medical attention if you have any difficulty breathing or any sudden status changes such as confusion and sleepiness. If you or anyone you know is experiencing suicidal thoughts, mental health, alcohol and/or drug addiction problems; contact the [facility] 07/10 Crisis Hotline -Text 4HPXR cv [phone]. If you received any narcotics, sedation, or [...] business decisions or sign any legal documents [facility] would like to thank you for allowing [...] Take onl (more content not included)... Normal [facility] MAGR Intraoperative Recordon 01-30-2024 MAGR Intraoperative Record MAGR Intra-Op Record Summary Primary Physician: MURALI WATERMAN MD Finalized Date/Time: 01/30/24 10:23:16 Pt. Name: CHINMAY KNIGHT /Sex: 1975 FEMALE Med Rec #: [id number] Physician: MURALI WATERMAN MD Financial #: [id number] Pt. Type: D Room/Bed: / Admit/Disch: 01/30/24 [...] Case Attendee Renee Dean MA, Kelly RN Truitt, Regina CSFA CST Role Performed Silk Screen Cutter Silk Screen Cutter Scrub Personnel Time In 01/30/24 10:14:00 01/30/24 [...] Role Performed Scrub Personnel Surgeon - Primary Silk Screen Cutter Time In 01/30/24 10:14:00 01/30/24 10:14:00 01/30/24 10:14:00 Time Out 01/30/24 10:22:00 01/30/24 10:22:00 01/30/24 10:22:00 Procedure Medial Branch Medial Branch Medial Branch Block(Bilateral) Block(Bilateral) Block(Bilateral) Last Modified By: Maine García RN, Erica RN Baumer, Erica RN 01/30/24 10:20:27 01/30/24 10:20:27 01/30/24 10:20:27 Entry 7 Case Attendee Georgina Rodriguez RT (R) Role Performed Seasonal Driver Time In 01/30/24 10:14:00 Time Out 01/30/24 [...] Time 01/30/24 10:15:00 Participants (R), Rukhsana Bang MILIEU THERAPIST, Renee Dean MA, MURALI WATERMAN MD, [place] [...] Position Extended Right (more content not included)... [facility] Pre-Op Record Summary Primary Physician: MURALI WATERMAN MD Finalized Date/Time: 01/30/24 10:30:46 Pt. Name: CHINMAY KNIGHT/Sex: 1975 FEMALE Med Rec #: [id number] Physician: MURALI WATERMAN MD Financial #: [id number] Pt. Type: D Room/Bed: / Admit/Disch: 01/30/24 [...] Signed By: Marta Sousa RN 01/30/24 10:30 [facility] POCT Glucose Levelon 024 Glucose [Mass/Vol] 125 mg/dL High 74-118 [facility] Comment on above: Result Comment: OPR_ ID=[email or web address],TGC FLAG = False,Meter:[id number] Structural Rigger:[id number] Ager Jacey Performed By: #### [id number] ####[facility] (DEFAULT)[address] [place] [address] Patient Handouton 01-30-2024 Patient Handout [facility] Coding Summaryon 01-19-2024 Coding Summary HTMLBase 64 IfjovnuiWUk2pXe+PGhlY WQ+GH1LMLQkO73plUAdfW 8gZ2ZWFZgUHstaMKKVUUa GTeBbmiBlVY0bqIBoMINp IC8+DC0hQLPqLbdftLXpj 5M3mWW3V05qgs6tQVtmyC U9DWZkKtUdzxpxw3fglTe 6IDcuNmluOyBt HNTnnQ23QKL7jX04Mn96j NBdiXOfd9iaoSr5QfEvUQ MoOYA5gAnvXQavr2QaMBS qF31gqLMmk1U1 BPOjwEzydJJcOmHfcBV6y U7wMXzjjvsef0vovnheVu j2jh27nBLqa4Y9hUV6W5Z wmxQ2PVHpqUFi XovrxEUOpS2mavgzb1fcr fcmTbUqZWQqUTy5BUj8OA CzlQkpOhNxOS52HGE8XYE tsuOcT8KlMOZg eBntAvQ6u6M6Ju2VN2QAC snlH9ZHEQRKFOaqsFS+PC 10my86R1NiMrscCcp6MES gBTE2kNU1uC0f KCZoNCawp3D6sPQ1R8Xcv rEwdn1rs6pkSEUgKQmqL4 8dsXZdb9Y9ZEUoiKI8OZN aeYruTxQqxN73 Oyc+HJNiyJjim8YmNkoyq 5rnx1vlcAj1BgleJAZeax UscNyiCVC1l2OcPi2hDSU stFE5bHX7fQ5h PtLmKsV8SHvlT792HsDyx YOcApwpE01dF9UyuUY+PH OdHyu6CJOnwIcbXC6iZ9N hZGRpbmctbGVm rGzvNY0jZOOmozepBDFog M6gJZIrK2v8PbPuXtD7XK tkE1FvJXTssdwhYi20jJ8 cDpVoBbL6QEbr N2ApafA9GQZpsLDmSWvkW GC1Y50jz2A5EIGlNCRvWP E1dRL6nK8oyNzubwdkrEI mdDsgdmVydGlj PZjbBWvzY503NDSwmBiuI kNvZGluZyBEYXRlOiAgMT EvMDQvMjAyNDwvdGQ+PHR vFDY3sPqzZSZm tIJfCObtEq3myXewlPjaH S4gZPHokobkWDRzoS6fGQ GnhQTheOwmVY5eEUJutqy wd380BhZaNPY9 XIHwoDZqM6YjwW8jLgHqL YVaBPCfE3OpcXCbUHuyS7 39FSsgHwU0JTOroxMxN3E sLWFsaWduOiB0 s8L5Is9La2WmznkpF1Buz YIpHwXiSgffSTb5W3SkWl wvdHI+NW96MHAjFU69SFp 5DXR0kAotGJor HAOfQ6GosD3sGtPaQZRmP GRkOyc+PHRhYmxlIHdpZH RoPScxMDAlJyBzdHlsZT0 xTe0rHRIjKFEn dYezsNJyXiDdj3nlUDFgX HlpSV3koRbyD9ZwaHV9OK Tcv0p8Vu68X43uZ1AwuQW +PDRmbVF7zFI5 nH8bZiPhLxY1BBgiM290N yQbrGHwZgvfm2vxc5eurU l4GtV0MXLneoOwsGbiWVX 5h4YiUh14E61i IHdpZHRoPSIxNSUiIHZhb Aeokb4dnG6wVx8+PGNvbC X3bRR0aB0dTyQvSnL3RYl lB214PcJzsMYf Pjhvq1hyi4dvzFm0PfUpM FOydzDmzNstHQO6c1WuXx 27V4ZlmVppr2KtIov3uf4 5jEMpd5D3yJR5 F0OlMEWaqhqclZXulBcbK B6zNCCrignxVDCcaB5sZK GgR8e9QbYeNvF1VWlqB7Z jceH3DRLjeCCx AIJrqAEOeC3licpdm6ckt lgtHaKoXDEiXRz4KPy2OK KflYbmQeVtYXV9NnV0YER 0mOMisD2obMqu kuxzjC1aOkb+QEM8gVJpc RIEDX2mVxnbrQS+PHRkIH L7zLuwFJjpRVQzvZ2sJIJ qJ0w3JrPjZwG8 MItfT5AoccZ3OQHzwACwR GGvbYUHtF3mdsxpw1hpen fqThMhBCTjISe5ESv4CQW saWduOiBsZWZ0 FwI9WSS2qMHdbU6qePari eyiaC8bAer+QmlydGggRG O5JMm9S1UhPmm7UIPmoLd mMQ0yzUBxNIyt Ws2zeCvxqLzeUK9bARFvn mobo693CwPbn9trYYFjhW IbSHqqYFG6A36ig4Q8UYN oUOMtQJM7gHJ6 lJ6awVpfefzuwFFxfMpey iUtkJcrUVeyUYboG858ZL MpwVodNiExCJr3W3JpVsp 1SQNulOyrGM6s uSLbEUkwQr6iuPmmgGqpV T9xIMGejvbcq235ThWdu2 jxLPWlxFRwUIwmRVD0E37 km6P6FEDeWGTn DJE0zJZ2wI9jtLbixmumg GVmdDsgdmVydGljYWwtYW nhL402ALOfyCmdRyHmqRr 6M9ZdNqb2TAXm nCqkVQ1juUIhFTiwPh8rp BzohRrjQV0eFYNfssiwh3 76CbIsk5uyJZRxaSKxTZi lELF2M24gx2A9 PDSxMKErHTS8sST0fI7cc GlnbjogbGVmdDsgdmVydG luQSrjGXwhL029PMDbbYf nPlBhdGllbnQg MXikAKi0D4ZaBzhtjDO+P K84BKBfIM25xXEejXKak5 dtsNm4VnRmCIWuHVC4yWp bVPgvu7UrCWBk H43tfOIpk2V9NBSyjBmtp BGuEqYtbIG7wR0wRXhbif tja3ywtypuYuoer3vikd0 3rJ53F48eWBin ZHRoPSIzMCUiIHZhbGlnb s7pzY1rGb9+HAHtfGO0iX O2lP2dQMJkYdE4UWblM82 9InRvcCIvPjxj e8kbx0qaiJc8GlA6VYXlm vDulFuhHLP6n5LjVa78M6 9sIHdpZHRoPSIyMCUiIHZ hlJfkds4qvS6v Ii8+IRMvxIW3rAK6iH4lZ mPmUyN9REcaE898FdBzwF XfPsvuL69iD3ZyuSL+PHR gVby7XAMknSsh KF2axBCcPJnxIh1zKPV1B yYpEaCvSUaaV3GlPZMhkp mucjxufFZ9THXeGOHynF7 9Co4qgKjjGVOc iNWKqT5bdalwk4tfndlmX lBwZOSwCJc2WNx7PJKdwH joRmFjIHK7XqQ7ECF2xCZ zjJ6qqOfgllti sB7hH9NuLVOwglahFj61v E0hHeLsHtS1WLdiMwk+SE HIOY3VKUJTGARVLVOrGYM TLB41PS12oXUp b7G7bDB9F0IuQDVyehwam gfapNZ1HJRqCWIkdS15wK AyEEutWs1nj3M2h505YJW eZGMvmH39Rz6a zBwzIZEjkABYdC4sgajic 0lluyiaTeVbDSOgHUx2DU h2RMHeiQuxQkCqLJR1AxA 8YZC0xYFdvS8i aPbnqpzgbQ1bCpu+MDMvM ZHoBKn1QVcbsCU+PHRkIH T1cIezIHnrPNFnpM9kIJU pX3p3NgUcRjE1 OOxdT6QuTXDcoclbAx91r U6rKwPjReP8KKrmJ7Solb X3KBJveBEyFIclART7M72 ku2B5TFRqJWLj ZGJ5bGT9nU5iiVhzryzbm GVmdDsgdmVydGljYWwtYW opJ043GVGxzBdvXwHxDPl lHRRuVI24AP15 qPCzd7Y8uEP4X7VqVJWri gokjyfccWX1SJOqEROjsN 04fGDyJZklPv3gk7T7i94 0TNWeZPGhjZ90 Dh7hsHthWEZspEXHgL7pf ijrh8ydlhqcGpKjEARaVC s8DYx2QDRjoQdsOiWkZNN 8BlY3IMQ9oOQl sX8xtJqogoiisR8xZrt+R yIGXYnVAW66AS43kAOrx4 U7fDR8I8JtUJGumvpzfoj knVW2WRFeSVGc rO18bRHkMQbxTd4bx6V4k 617LQBwOQPusX19Zs1zbE zdNLNmlASJxD6zxabed6i vcjogIzAwMDAw VPi6HFt6QGMplGelInBtD DV5CcB2PSU8yNSytH2lgH tpsalmjM5iPlo+Q2I3wBD 0aWVudCBpbiBh IEJlZDwvdGQ+VV08do63L 8BsNfbvSic2VGSxTTJ6bZ J6fH3cVTLoLGpsa4M0xKV 6F4SinpHyeg9c i3euNRYuEQtnV54kvHXfo 2E9CCNykLE1OBCspLkaQd GcfK64Gnr+ZXJabWayq1E tVykgl8xnw5db lJw1GyJhDUIvgwSivUsgG LR7a8KhJw71V19fZCfrQW RoPSIzMCUiIHZhbGlnbj0 xcZ4hBm5+PGNv kDY0yKU0dI1dUsRsCrB1S YmxI581TcVbnWWmIerrb5 pld1yfyMy9SbUpYHPecqV qcUlhGOF7z9Xo Bx80M7FpoYolt7RuRtl6r o73gXFhq8H0aGZ7L1OjEK OfcnxoiNDrtMuzBE9oHFO nmolpUTQjeB3k FXReO3w2QzWiFoH5DKcgI 6AptuW8UTYkxRDyJNQqkL YDsT0yqdiuq7oopaxsQaW wHGJlLEj8PIo5 LOSouAuhEbZiSEX1TnO5P TP2cNDglC6dgGodigjgyU 9wOyc+ULx4v7bccCEwKT2 tcLN0VR29CZ76 cQLml0O3pBH4A7QhYOYil roewefazCT3SAQdQOCcpD 80Gd9odTpoBv8zITZdIEK 1VBOjnZZmJ0Dj zY3nIpVjMOSkHPSgG7Clr LChOBirW249GXgxNeO1HR MibqHyR2GtAGSxrIpcRaU 2v8H2Np3PPB97 NS40AQ36rJAea4B2hEK2R 1PeIVHrgwkrgovnaQB3HD DkCIPncK07Gw1jaOliWm8 nCCEbDMA5USLb eTJkF2CemZ1uMaJyUGWgQ HSgK7NunJBbXJmnC838XG qgXfK3GSTfwwUgN0OpUBP cgCtkVjV0m4I0 Fq5BAj93JV60HJ73wZJbt 7E8uYE6G5XgLKOnmnevwt bpaFG1HVSxNDKeaM38Tx5 igJjhTl2tXXWh MFZ1ZDVlkFJnU4ArsI3sB bRuNVIaEPGdN8TqiGAeJI kuB456ESqgAnE7OWJforD jH5TbGWDncOxg DuX3m2O9Et1YDFnwhyf3Z 3RkPjwvdHI+EY68YECwQV 40bZPsiHTeu3kdwXb7EfQ rXQTfYBD1tXvc PSd (more content not included)... [facility] Provider Orderson 01-08-2024 Provider Orders [id number] #1.00OTGTIFF [facility] Consent Formson 01-06-2024 Consent Forms [id number]#1. 00OTGTIFF [facility] Stress Teston 01-06-2024 Stress Test [id number]#1 .00OTGTIFF [facility] CV Stress ECGon 01-05-2024 CV Stress ECG [...] Travis Bowser MD 01/05/24 11:24 a Technologist: [facility] Coding Summaryon 12-29-2023 Coding Summary HTMLBase 64 LdsodzxyAPi8uJs+PGhlY WQ+SS2VRKByC99hrWUmtL 2cC6LJKKrLYuytHHLEEWg GVxQagdZuYO0cvOWjAUWn IC8+EY2lTZRiIoqwyGJak 6G1dHL2S52npw4mGVuyyC G8HVAsTlGqzenfm0vqtVi 6IDcuNmluOyBt NEKcjG88VMM4lB22Xl22j BZurGHnc3sapVo0RiRgVQ YtRUD5nUkjHTrcf9GsTZA qP88gfVZyx4C8 LRTqhEeqbBZfEnEqpSE8n G1rWDwjhyirv4abyqyhDo y1ty07qGEgq8T4cAF4I8T neeL6EZHtdCLb LiineWCRdP0chthsc1wrt zerGpHbQALqAVy8UHz7SN XweDynVrQtTA92CPN1CLO lluQqJ6AkTVFk aDtpHoX8r9I8Ax4ST4EHK wciV1PTFWDZEXpwaOQ+PC 95bp80Z9EzMxrfCiq1BDV qLCM3kOY2fP2l CIHxGCmyi7A9wYA4P1Iir rPjjx7sa1vhCZJqDUseY9 8huEGeg1B4VYAijPC1JGG bmXmbYqQmxV90 Oyc+CSMybPkfa3KxMmvxz 5dmd9wngPm1BdxfHCInmz QriLumBGO2h7GcWp0gJKJ jcSV7aBA0wG9e LfAbIvF5PLmoT467BtZrv FFmOqwmH58jM5AtcPS+PH KaReu1TPFzdUuhNQ7tA3F hZGRpbmctbGVm dAamMZ8zZLPrgnelOEXwv S4oRMThT3s8JnFfAeW7GL ueO2GmJTUbvmqsTr38qI3 hAfYlSgN4WRcw U0ZguuO7UEYukDMlESprW PW6S58pd7V0BFHuPKOmLG L1ySO4oZ8ykMakiktzePO mdDsgdmVydGlj ARjxWOaoG914HRUoqShyJ kNvZGluZyBEYXRlOiAgMT AvMTQvMjAyNDwvdGQ+PHR pRTL7xDrmSRCu tPSmPVklMc7wnVfsnXpyW G4tKLGemwnyXYFexM3aRC WvpMNptIhlWT1lCXYeydv em326UqQuRFL1 LMNeuMTdR7IwrP8tPpQsD CLtGYVfY9YbhEAdNRtoJ4 15RVynXnG5GBFgdcEcB5M sLWFsaWduOiB0 u5S9Zv6Gz0UkufshE8Frp XGfJfZrBbsoGLy6M5ZhVg wvdHI+TR01CGMgGX90ZBc 5ESM4zOatJIhc URLeA8HofK0dJdAjQXWjW GRkOyc+PHRhYmxlIHdpZH RoPScxMDAlJyBzdHlsZT0 sYw6sIYRlRGCg fGcfxTRaMzMah8deDXSrG VclIC5siQchU2PhpUZ2GV Tlw1z2Am83N16bC0HnpYH +XVVohQU7kJL1 tL8kAyAwVjT5ROmrI507J fQnfEQdJfehp7qes9rieM o9BhH6YUQhvyUfyLohLKF 5q9BhAm70N63t IHdpZHRoPSIxNSUiIHZhb Bqcfv3roK3mXs4+PGNvbC T4wJG4dV4uGmLqKpU9GGt sL280DkJvxEDr Fketd2ovx4vfxLc9MjPaL GYirnVnvTqjWDL9d4VcOx 94V6OqmNmwi4XmQga1rz3 4gKTcs5N7wHU1 U5PmJCTbplrzqUYguLthI V9xAROskugmWUYpnE5bWA PrW7b4RxBzQhF5FSzcA1U jxeE0ZWBzjQKi DQTzrGBPlJ8qbwkht0lfz azcJuBaDZQaZBs3LOv4CE JgkQijXcGyAUB5YtY7VKY 3dERkoI4wcHst uoowaV9qJqh+CYU4bYCun AIEUB7wMiwzsAL+PHRkIH X2yBrqULzgPWItjB1nPFU nS1w1YpUsFjO6 QTfeV8OekyA4BIMxeNTuW IIxaDESsW9ugphue0pwig laHsHuEFMwINp6HOx3ZGO saWduOiBsZWZ0 KwX4CQO3iIDctT3mlXtxy xpxzT8mDer+QmlydGggRG K5IIl6L0VqHdg6UUQcxVr sCO7enBQpGIco Pu9ubKkfdZnvWG4nUGUon jbml728GvIyj7dhAPUqoX IcOFvpAEG2C61xb2V4CXJ hHKZdIPK5tOZ0 kN4peSpxrelqfIDezKeni eShhHkeSLzeHPsrK779CL BtaAzdKtUyEKr2Z5JeRfx 5TSPqjTczVW3w hVKcBFeiFc8pzIojxDwbM I3oUDLvedvfu302ViMee0 alAURbsSRnYUseQJI9E40 zi3Q0TWRoJPFc IBU7jLD9fT2xtIbcnvslv GVmdDsgdmVydGljYWwtYW agZ568QFAkwVpmAySukYw 7X7ZfFox1RELq kLbtTH3hvPGdIOvnZf2ku ZoamEqtYH7fHISmsufcr8 66ZcVkb4iiTPIqbOMgKRv kAVL9C10ru4J4 GXDdNTNcJHL2uLD5gK7vi GlnbjogbGVmdDsgdmVydG aeQXvxMKfjD864VMBiuOd nPlBhdGllbnQg TRrlEEa4L8BzAhikfNZ+P M29DMHnOQ39jCTpuRClc6 kuuAb4AzBrKLNmWEC7kBr mAFhfb4VqVGNx A27laSSzg8T1AZKjgSxst HVyKiEfxDK9tT1zJXuait apf3rzqbnkMbkib6byik7 1eX65X78xFOlp ZHRoPSIzMCUiIHZhbGlnb c5lyN6vDr6+YXKduKM6eJ B5cM0nCRUsOnH7IArxP29 9InRvcCIvPjxj t5wmi7oxuRx6JvE9XEKsd vIqxRthKUC5p1DrXt54T7 9sIHdpZHRoPSIyMCUiIHZ kpQualx1hfP9e Ii8+OKRaiFL3dUM5oI4tY dZjLwW4GGguJ044XyYaoC CmSdaiO86iF8JuqGO+PHR lBjh3HHJgsQjl OH5arIFiYZstXc4gWWJ5M gMwCbCkODslF5MsMSEzew ztvbtrxHN7BJHdLPZhrF1 5Rx3kjPxvHXWf yRKJgQ6wggqvt8xwaupyW xXxQCBoJPw9SLt2GPVnxG nfKsLkIGD7HlP1LUY0sZO vwL0inHunxoyu oX9uG1BsCQWqjdrlCp19d T0eDsAtYyO2THukMow+SE WHKZ7CWBSMIPYFZVEeTYH YGM98FI97hEMb y9H6xWT3T5FxKWDfdjcin pxnjED5FRBdEEMpfN49mX DoIYmuLe3et1O3h222WNG dMRZylM25Oy9z eIkpOYOycRRWdL5goqzwh 8lrongpIxAkNZXxIRo1KR d8PJSdmDfuVzVkWAS7GpF 8DLN4zBUuzA3f vFxvunqumX3rYuk+MDMvM EFlPLd5GRptkKT+PHRkIH P5wFddOFbeUFIwxT3yYIB uI7c4IfSyYtA7 VUuyF0WsYQZppcenMu31m I4tQlTdExK8TCibA5Bpnn B2YZQibEOeFNriVFU1V81 vj8M5KNRnFAZj ANT0sDN5pD5ylIxxtvtnc GVmdDsgdmVydGljYWwtYW wyQ217WVFfiKxgMaFcRXk wKPXaUV42MM73 zDTny2V1eME3E6SyPDDna agefhdkoTD5UYNtLRUwtZ 84kZWqGOipSj5co1S4z19 1MPClYHRhgQ71 Il7dhIquUWQbtUZJmT1cw xyfy3kuuzlhDsKyVEDgQJ o9BNk3OPRyjOtaWsLpRFS 2ZrY4JFN0mSOf zF6hhSnererglB6wRjp+R bKWEGdVNK95YO90rCYde3 O2vSP5J5XmAHZlrywnjte qsDM1SWEqUGKv aV15mIPkZJsiBg7if4E0l 853XPMwZZMpdE68Wq3luT dfDVRvlMFOaR2oqskot9w vcjogIzAwMDAw TSo4JBb5WJVvsLeuSpBuX HB0KdP3ARI5xMNhdR0muP xwnhiafW9zZkd+WZP3LFW 9zbyqekw1J9Oe PjwvdHI+AH82RSXkAF09n HSnuEXez8dijMb5MuWdOW IbJUN9jCuuQIudl5HcLCM vV32smEEdq8G2 QTPskIaxgQEmLdEhgCD8j O6hMNjbakewa3nosnkfOx lpz6qsjk18eV86H28kFUc pZHRoPSIzMCUi OYHytXfgun3lqC0eZh7+P UJauVJ4kXK6gF0jNbKxEi U0KRncQ755KnDuvCHhPgd eb5bvr5tspQw4 JxTeSEQstwHzfXdiFAZ1n 4DtJh93S84aTDhwKCSgOV XfUPVyBJOodNgmvp6yqQ1 wIi8+OM1gm2fs eg01nD41pPX+NJYqZDW4t QepZXngDEJvqN5vVGrtWv W0XJBhPnUpaZ23yGWmFFo jYi8fgYuwvYex GA9uKHGnvzgxe525RsXra 5vuAVNsaWEfPYiuEFJ9V7 2xt2B5YWAlYXQvLPE9zRF 4mD7tvFclmsrt bGVmdDsgdmVydGljYWwtY LnjA198FLQjpRlkEuUzrV TiK7mdhaESKZ8eAazkfIE +VPZgFRN6nPyb PBblNSUfwN2fTIJtG1l2N qSjGxS6NMlhN2MdznS9RE WniKZpIWRhzUDMgQ1sqgh aw4neygveRqFj DWYpKWf3KPc3IWRfzAywH fAaDVD2DeV9QDC2vWQjxA 3tvHdkxxsctW4zVox+Rkl OOjwvdGQ+PHRk GFI0nHnxZJjwXHFsgD3jI ERuS0q6FgZtLfI5UVzzO3 QghqV9XEHwfPDpQJWpzLH WhO1nirwnz8at cwopPwMxJSXgRQx3KUr1K RKvfNitItDdGNU6AoV7SX P7hOKxjD5gsOngfkqjtP0 wOyc+TVJOOjwv dGQ+BOZeDJG6xOtrJEttQ KQdlI5yQLXbE0p6FtKwQm F0AEouP9CanuV7ZQJjlHA lXFBttKGFxN2m mlngl2yymhzwNsXcRALeQ Nn0BZj0FWOwyFmsPtHbHS C8PpY9TEO9sCGxlR3czSy phuwtgP0oIbf+ FBQ1APR5YP40JH84I4HkC jwvdGFibGU+PHRhYmxlIH dpZHRoPScxMDAlJyBzdHl cRV1ySu3yBCYv LWN (more content not included)... [facility] Provider Orderson 12-29-2023 Provider Orders [id number]#1 .00OTGTIFF [facility] Progress Note - Nurseon 12-15 Progress Note [...] Sauceda RN [Verified on: 12/26/2023 10:51 EDT] Sohail MATA, Felicia Kate [facility] Consent Formson 12-15-2023 Consent Forms [id number]#1. 00OTGTIFF [facility] Inpatient Patient Summaryon 12-12-2023 Inpatient Patient Summary [place] [id number] [place] [id number] Patient Discharge Instructions Name: CHINMAY KNIGHT : 1975 Patient Address: [address] [address] Primary Care Provider: Name: Provider, None Phone: After you are discharged if you find you have any questions, please, call [phone] ext [phone] to speak to a nurse. Discharge Diagnosis: Prescription Information: If you have been given a prescription for narcotics, seek immediate medical attention if you have any difficulty breathing or any sudden status changes such as confusion and sleepiness. If you or anyone you know is experiencing suicidal thoughts, mental health, alcohol and/or drug addiction problems; contact the [facility] 07/10 Crisis Hotline -Text 4HCSF ka 342021. If you received any narcotics, sedation, or [...] business decisions or sign any legal documents [facility] would like to thank you for allowing [...] Restrictions: Comment: [place]in (more content not included)... Normal [facility] MAGR Intraoperative Recordon 12-12-2023 MAGR Intraoperative Record MAGR Intra-Op Record Summary Primary Physician: MURALI WATERMAN MD Finalized Date/Time: 12/12/23 12:39:40 Pt. Name: CHINMAY KNIGHT FLOYD Bae./Sex: 1975 FEMALE Med Rec #: [id number] Physician: MURALI WATERMAN MD Financial #: [id number] Pt. Type: D Room/Bed: / Admit/Disch: 12/12/23 11:37:50 - Institution: Case Times MAGR Entry 1 Patient In Room Time 12/12/23 12:31:00 Out Room Time 12/12/23 12:39:00 Anesthesia Start Time 12/12/23 12:34:00 Stop Time 12/12/23 12:38:00 Surgery Start Time 12/12/23 12:34:00 Stop Time 12/12/23 12:38:00 Last Modified By: Catalina RN, Crissy 12/12/23 12:39:20 Case Attendance MAGR Entry 1 Entry 2 Entry 3 Case Attendee Renee Dean MA, Kelly RN Heintschel, Sara L RT (R) Role Performed Silk Screen Cutter Silk Screen Cutter Seasonal Driver Time In 12/12/23 12:31:00 12/12/23 12:31:00 12/12/23 12:31:00 Time Out 12/12/23 12:39:00 12/12/23 12:39:00 12/12/23 12:39:00 Procedure Medial Branch Medial Branch Medial Branch Block(Bilateral) Block(Bilateral) Block(Bilateral) Last Modified By: Catalina RN, Crissy Arnold RN, Crissy Arnold RN, Crissy 12/12/23 12:39:37 12/12/23 12:39:37 12/12/23 12:39:37 Entry 4 Entry 5 Entry 6 Case Attendee Georgina Rodriguez RT (R) Aaron Dias THOMAS F MD Role Performed Seasonal Driver Scrub Personnel Surgeon - Primary Time In 12/12/23 12:31:00 12/12/23 12:31:00 12/12/23 12:31:00 Time Out 12/12/23 12:39:00 12/12/23 12:39:00 12/12/23 12:39:00 Procedure Medial Branch Medial Branch Medial Branch Block(Bilateral) Block(Bilateral) Block(Bilateral) Last Modified By: Catalina RN, Crissy Arnold RN, Crissy Arnold RN, Crissy 12/12/23 12:39:37 12/12/23 12:39:37 12/12/23 12:39:37 Entry 7 Entry 8 Entry 9 Case Attendee KoNoemy gonzalez RN, RN, Agatha Diaz RT (R) M CT Role Performed Silk Screen Cutter Silk Screen Cutter Seasonal Driver Time In 12/12/23 12:31:00 12/12/23 12:31:00 12/12/23 12:31:00 Time Out 12/12/23 12:39:00 12/12/23 12:39:00 12/12/23 12:39:00 Procedure Medial Branch Medial Branch Medial Branch Block(Bilateral) Block(Bilateral) Block(Bilateral) Last Modified By: Catalina MTAA, Crissy Arnold RN, Crissy Hernandez RN 12/12/23 12:39:37 12/12/23 12:39:37 12/12/23 12:39:37 Surgical [...] RN 12/12/23 12:33 (more content not included)... [facility] Preoperative Recordon 0 12-12-2023 [facility] Preoperative Record [facility] Pre-Op Record Summary Primary Physician: MURALI WATERMAN MD Finalized Date/Time: 12/12/23 12:51:12 Pt. Name: CHINMAY KNIGHT MAE /Sex: 1975 FEMALE Med Rec #: [id number] Physician: MURALI WATERMAN MD Financial #: [id number] Pt. Type: D Room/Bed: / Admit/Disch: 12/12/23 [...] By: Megan Hamlin RN 12/12/23 12:51 Normal [facility] POCT Glucose Levelon 024 Glucose [Mass/Vol] 137 mg/dL High 74-118 [facility] Comment on above: Result Comment: OPR_ ID=[email or web address],TGC FLAG = False,Meter:[id number] Structural Rigger:Abhijeet Mari Performed By: #### [id number] ####[facility] (DEFAULT)[address] [place] [address] Patient Handouton 12-12-2023 Patient Handout Normal [facility] Capillary blood glucose melissa urement by glucometer (mass/volume)Ordered By: Natalie Garcia on 12-09-2023 Glucose [Mass/Vol] 137 mg/dL Normal [facility] Comment on above: Random Glucose Refer ence Range is dependent on time and content of last meal. Glucose of more than 200 mg/dL in a nonstressed, ambulatory subject supports the diagnosis of Diabetes Mellitus. Result Comment: [place] Glucose Reference Range is dependent on time and content of last meal. Glucose of more than 200 mg/dL in a nonstressed, ambulatory subject supports the diagnosis of Diabetes Mellitus. Performed By: #### G LULS #### Point of Care testing , Glucose Poct Glucometerson 0 12-09-2023 Commemt1 Glu2: Cleaned Meter Normal [facility] Comment on above: Result Comment: PERF ORMED BY: [facility] [address] [place] [address] PATHOLOGIST STRUCTURAL ARCHITECT CASSIDY LEONARDO M.D. Performed By: #### G LULS #### Point of Care testing , [place] 12-09-2023 L Specimen: [id number] Received: 12/09/23 Status: SOUT Req Num: [id number] Spec Type: Surgical Subm Dr: Natalie Garcia DO Tissues: A Colon Biopsy (SIGMOID POLYPS) Procedures: HE/2, Gross/Micro L4 Age/ Patient Sex Location Account Attending Physician Chinmay Knight 48/F [id number] Natalie Garcia DO SPEC NUM: [id number] RECD: 12/09/23 STATUS: LILIANA OLSON NUM: [id number] ANGUS: 12/09/[address] [facility] [address]: Natalie Garcia DO ENTERED: 12/09/[address] [facility] [address]: SPEC TYPE: Surgical DEPT: S ENTERED BY: [id number] RECV BY: [id number] ORDERED: HE/2, Gross/Micro L4 ORDERED: HE/2, Gross/Micro [...] Description Microscopic examination is performed. CPT Codes 97813 -------- -------- Specimen: [id number] Received: 12/09/23 Status: LILIANA Olson Num: [id number] Spec Type: Surgical Subm Dr: Natalie Garcia DO Tissues: A Colon Biopsy (SIGMOID POLYPS) Procedures: HE/2, Gross/Micro L4 -------- Patient: Chinmay Knight [id number] (Continued) -------- Signed (signature on file) Jeremy Spencer MD 12/15/23 1447 Normal [facility] No Panel InformationOrdered By: Natalie Garcia on 12-09-2023 Bedside Glucose Comment Glu2: cleaned meter [facility] Consent Formson 12-04-2023 Consent Forms [id number]#1. 00OTGTIFF [facility] Controlled Substances Agreem entson 12-04-2023 Controlled Substances Agreements [id number]#1 .00OTGTIFF [facility] Outside Recordson 12-04-2023 Outside Records [id number]#1. 00OTGTIFF [facility] Progress Note - Provideron 0 12-04-2023 Progress Note - Provider [id number]#[facility]. [facility] 12-03-2023 Coding Summary HTMLBase 64 KutikzbpEKd3kYy+PGhlY WQ+NF1AHVYrS57vpDXdzG 2yZ8ERGBrVEeqxFONVMGi BJpWvsjKgND5ydNHpHCBk IC8+KB7sRLRiJxiiaJAxt 4W5qAN2Z33lmx8hIQlygY J0MYDbNcImtayea3suzUa 6IDcuNmluOyBt JPKnqZ78AUV6cY40Lf81x OTljRPtp8safZe9YyFyIQ CpSKG7mQiwZZquj0OoQYL iR78fbEGec8T0 TMTwkGngyMQuDeBahPH5d W5mIIjguzzaz6msaxycUl q5yy98lYBmj4V2sXX2W3D tgqN0MFYqfIEw ReyzoPOWjL5sfomqk3ahe zwdQvTyWKXfQEt8WSj1LZ AibRqjZzDpQL14ENV7FQA mxqAuB1OcXGEp xMrlGeL2t7G5Rh9IC0POH pvuB5TSPDNNQQejcFY+PC 28ba58Y8ZqVpzeKdu7RZJ oLSR6pRF1dS2s YIVbAWqps0B6yIR5X2Xge yQmuj4qe0uyNVZrJOoyI7 0gwTDpt4W0MZQecKC5DOJ xvNpdAoUbkR18 Oyc+MXOabIdzf3VvLwzhr 2tak1vioMy6SjsiNJZkfq HfaMgyUQP1g8AlFm5lIYI lcYZ0jRV2fV9l HdMwCgL8QGnyV400LaZjr VEaPipuE26nI8CehFH+PH WdQfc0BNFnmBzmZV8jC6J hZGRpbmctbGVm fEtoBP3oTBExepkeWTHif M8hKIKxA7o6FtNqXqE7TF rsW5ZtFYFaeoncRu71lJ2 qNvUhAwJ4XShp I8PnnmL4IXNguPCoYKqmH CD4P34tp4Y1SBVdURSzHA T6oOW1xE9fiKjmwtbrxRU mdDsgdmVydGlj QTxdVVxbO522TDDtvChmA kNvZGluZyBEYXRlOiAgMD kvMTgvMjAyNDwvdGQ+PHR kCRD3aXpqJQMr kBWiNGwbOf7edGvqoYnlG Q1sONKscjlhLMGzbS4aMS CwrKZfgCiyRN7xLWWgpdq do239GePcRJC7 OXTemWHcY4ClsI7hPyQtG RBdMMDtA6LxoLOcWTmtX0 27YSanIyA6YBKhtvFwZ4M sLWFsaWduOiB0 x6Z2Ga3Pl3IrgajoE4Amr JYeUcFlZbadOMl2B0GaDu wvdHI+AE74KZIuJY27JRm 1UIU2yDebCPle XYUcS8EojU9hSrHzCOQrK GRkOyc+PHRhYmxlIHdpZH RoPScxMDAlJyBzdHlsZT0 iMh2zARYaFISd qBpqbNBvPvXxb0ixOFItW DbjNI1oaRjsU5BblTL7IF Tys7i8Ey55I57yM6TftIZ +NCGqpOS5cAI0 qM9hVvZkMcY9YOqbH537M uCagKRbJathv5vgz0falW k6HuS7BPCaceIgwObaUFK 0d9CmVa86W20v IHdpZHRoPSIxNSUiIHZhb Kyxmg9ydT5kSx0+PGNvbC G0iLK1nE1lYbQvHcN7JUu sA075SlXyxSVk Qjfmt3qrb0blyWe1DuDwX OKbdpMyvFwbIQY6s6MbGd 95J8VkrDene4HcTyv3wo5 9rZMdq8S3oIT4 J4QcJKMflcasdSKsuVioN X8uGUMidxxlCMOywW6tTA ZbN3g6KpEwSuU1BBbhP0K vioC7KINtlEKk IYFysZIJrM7rzmfkr3twu yowAbGmFCNeKFb5LTt5KS ElsWnwYfQgFUA9NkO7IVS 4zBSzpS1drSxk vrqfzQ6xEvh+SGB3fJXbp SEXFR7oYrcjvOS+PHRkIH U9iVvtKKngNBZriT5cSTL nR2j7GkMwSkC3 JYieI1YxgsI1UOIzlVGaX EQsrQFPdO7bsaryr6nmzx uyXiPoLOCfPCx0XKy6EPT saWduOiBsZWZ0 VpN0JIZ9bKOtdT8wsTugc ekxpO8fCcj+QmlydGggRG E3AEl0F8YlThj5DPAigMt vDA1lkNMhYXjl Ur5csGfcxBqyBQ1dHDRec xqwi715ZtNkr9vgPRWbyJ TsLVqlLNK6O36ic8Q0WDH mIZHxFYX1bUD5 fG1ujKnxvskgfUVyvIbui gVhxZceRPkyKMxmN003CD WuaLjsGhSuNUp3B2XeHwu 9WVXpmJjySW4q vEPjJNccKw0mzTgrtTodR X4qFQLjdkoup865HvBgs1 sgPPBtmQVdWXniYHW1V92 zc8H0UIGmDPUp VUG8fLA4rG2nlStrofwix GVmdDsgdmVydGljYWwtYW qcN854ZEImaHvoSwEdcYp 2L7EnVsn2GEZt fJpcEG5cxINoTNihWw4ip AidkCcuOW8aGYGdzhqjy7 27XrSys5ucUFAzqVNhBKo yHHE7G65sj0Z9 QJEiRRIbIZJ5bOE2fS9yc GlnbjogbGVmdDsgdmVydG xrIPseKFduM651MFSxoGm nPlBhdGllbnQg EDokOPx8H7MlKybenZP+P V68OODsUC14qDEbyZRcy0 atmWx0YjVwMMDpTOP4hEc eVQior2XdBIBz K36qqXCcx9Q8TTWyoDntq JDwXjOkkNV4kB5qRRovod gdp2ujdpqiPdlrl8xucb5 9eV56Q38gSFan ZHRoPSIzMCUiIHZhbGlnb r4gwF0iSq1+BHFhdPJ7fE W5sI6yUTTlPuU7WHjwN70 9InRvcCIvPjxj l8jju4khxKx6ReF7FZQdj iFebWoeJUX8d2KgPr99Z7 9sIHdpZHRoPSIyMCUiIHZ epKbtjf4qiD1m Ii8+OTPdxQW7dXE0gO9kI cUuWnN4OVzqG449NrFxtF OcGpstV70pS7OefZU+PHR qNps7PWVrdHbv TS9naDJjTBkrLp4fWPE6I iFkYpJyNNovA4AqVXYxgz gpavykqTJ8MKRdJRFbyV6 7Ex0kuVuqKZDa pPROqN0olybvx3ycezjfQ jZoPDBbPVt9UVl3JHMfqD ooIcRwPHC3WxL0OEM0gKE roE3akYyugzfn eT5tJ0ChURLsxsdsZe95g G2pIaZfUbM0VCjoJfi+SE DWNJ2ASXOYZYTZKDBaNAE YCA41JH73yDQp n0M8rIS5F4FcFINmpxdcw aycjAQ1KFDtBQQiiV49rL PwIVkxRy1ur1T4o257RID fVUCjhB07Hj8g yQpgAFQhbRDApZ9xpobwf 8dmpgujGjCpICQkKVl5ZZ b1YQOzyDsaFuTnTDN1CfM 9CZV5wOEvfH8s kBqykjikhK2iGly+MDMvM QGsNXg9IVlpmTQ+PHRkIH F8lBzsCToqHCEhjN6yZPM bM6x7YyEaUcC7 OXimS8IvJEBmjgoeYw78o N2iInRyXsY5LOzyJ9Doaa U7SWMoyKBzWNmrOWO6M53 gi5W7OAEaXYMq VDR3cNX5yR4ciTtlyglef GVmdDsgdmVydGljYWwtYW vvR575WJWhiZaqYrSePKq jSVGzKS67DI05 vKUkt7D2wVI6H7OsQHTgk ctfnnpfxGD9HXAfWEVyfQ 16gVTmVFahNo4it7U3a67 0QSLvAUNfmF40 Ix3pvQvqOISyzAVNxV4qn emer4foftreMjRrOICfLP e8DYg7HDCzeXzgFaKjJNS 2NiG6VWS9qCKq sK7ndSjphvagiS8wMga+R dOWJAeRHU10BK57gTDvb9 R8wFK5S6SfWZUvhfuknbz yzAX1VOOmPMIp aY05iYKeWWznTh0ms1R1c 949UFZqRFHpoH80Uk9rzK qrXGIqjFKRiM8txebkj4m vcjogIzAwMDAw WGm1NUd3OKUwtUtaGyWlD DS3XcJ2NXP0aBXbbC0csA ltesabdQ4uJtw+S1N5M4F kPjwvdHI+PC90 NBPqIV49wMUxpWFwi4nad Vc5GzYgUVYzJBB8sAdxXZ xrr5EvHCTfD76isWZor2V 6IGNvbGxhcHNl RsTieTU7xO9mCKkykpcho 2gfxuybMrplk8gtdh92rG 18L17zJDmgDARpAJQgEEV dVYYqnLuzwy5m yW0aEq5+GXPgyPD2uUZ1m K7iVqAiJdF3IFqwQ029Oi RszFJtKlvja0wpj8mfwTy 9IjIwJSIgdmFs oRlqBID8t7OrIn08P16yL HdpZHRoPSIyMCUiIHZhbG jhsh2fdB2nUg1+HX2wp7u ivf87hV26xBF+ SAAcEBJ6fNkvVOzqYPHnh H8qRLcxGtB6KEJrItWdcT 03rWCpOIckMp1rvTejlTe jBN7mZQOtdxvi l997ZeFtm6ksHORalRYeK WyjHPR8V98zm5B5FLImYJ YeBIC2cJN5cU2ykLyqbgx gbGVmdDsgdmVy dKzfXFmjHAfvF213ONInh EumLnQibSInM2ubolITYZ 1lOjwvdGQ+MRWfIDX2gDt yGHgfEFPpmL5u QJDpI3y2GiZwXcS7BUysM 3GmapS4PTNkhVFkMXVbjF QQoL4nqbzth1kaqamyPaA bWVLlQZm6HNy2 JKMdxKizFjCzKRJ5GrV0X GD6cZNeoF1ooSetiopliO 9wOyc+RklOOjwvdGQ+PHR mOHK2gPkuWFkv ODRqpS4nBFFjI6e3DyWjR lF1WVyxO7NlfdK1YZNvrU HdVYJqyCJGkN6nxkxiv8g vcjogIzAwMDAw RLm4VBo3RVYhmJihLmDzZ XZ7AzG2AOL1sJDeuC9uzI xcbuapgU9nEth+TVJOOjw vdGQ+PHRkIHN0 zFnoGQdkVNYweL9eLZUgI 3b1CrBcYvD5VRlsU5Ehxc B4XJLlyJZqARTevLGRkP8 mghmfu8rpmept NsNuQAToDNl4KKr0MTSqw UshXgXaGCU6HjJ2IQF2cT PuvS9oeTeavzaraY0xWto +VJI8MML5XH90 UW14W7TwMgwkzQZctAW+P HRhYmxlIHdpZHRoPScxMD CuQlHfjJjsNS5wUg7kQZY yLWNvbGxhcHNl OiB (more content not included)... [facility] Coding Summaryon 09-15-2023 Coding Summary HTMLBase 64 ZcauvotnJNp3mFk+PGhlY WQ+JP3FXJIcF35orYIykB 4tQ0BSSVsJKtysHDAFFOs RGoUttpUwHI7kmZOdFAOv IC8+FD0yNEEgIdgncNBmv 0G3hLI7S09yoz7oNOjvfO U2COUqTqKokiqyh3ypxPx 6IDcuNmluOyBt KXBahL86OJF5pI31Il65k ZRjrBNod0psySh5XiFyNR RsMJL2kXexYOiia6XkXFH cA59hkIIjy7B8 BENsxUwhoXPpMoIsjXX6i N8bYWkwcczfz1lybregBn r2yp43mGPoh6M9zAE4H1D uwyA8XWAqlJYd FboodUBFhZ0faodts0pal hbtXdKeZQKfMZh6JAt8YZ DgxPieFaHxIR96JBM4HZZ dxiYtJ8KfTWEi bNvsCsX7g5W0Wn5FJ0KLH mbxK3ZOINQUGEpitAP+PC 72zp02S7WkXnnjYqz7ULU iCJY0sZS7lV4q IGOnXJure4Z3uDR0R3Zyo mOfyi3rx3vgYXLrMWwrT9 6erDWjt1Z7IZDqoXA4EOQ veXjwWhZaeP24 Oyc+AKHcgPtod4RgFbtrg 7rym1gbnAa5ConyMMMnxj WjdUasPSH9m8LwXu9uEXY xvVP0cDS6nS7b GnIjAdQ8XCljD476HhSvt RKkYefnV15tS8PycFC+PH IfGsn2CHBjfAlaER7zH5W hZGRpbmctbGVm qDmpGT0jACWyhqpcPJYcu R5yDNKyY1x0EbYoJbD9IM faV2WcHNMulbcsKu72uG2 rIwMqAbL1OAsc W3AyogQ2BORndRYsOMomS RZ7Z24bn1F2AFGaZPEePS L2rWC9zX9viMjbpesfaVJ mdDsgdmVydGlj RLwaYKlrT823TFSwsYunH kNvZGluZyBEYXRlOiAgMD cvMDEvMjAyNDwvdGQ+PHR zZTP5gIwoYNNv gZEiMGrcXs7imLujuEwpE G8pWUPzxnndWSJenD9mHA ShjUVshLniGM0eUQCeqfd au947IvMaRPW8 RYEfoNQmW3TyfI9kDjIfT LLrBAQrI9YjuDIjIYjdG8 44ECumQrW9PKSkfnMtD2Q sLWFsaWduOiB0 e8V2Oo1Fy3DvyejpW6Rqk FLlHfOrOpdlYOr7E6RiRf wvdHI+RJ80YCLdOE27RHi 7OCR9wEulDTsw LWBaE4MuwM5jQgBzMXLtW GRkOyc+PHRhYmxlIHdpZH RoPScxMDAlJyBzdHlsZT0 kHo7qHHJgAOKi zHlztJMgLcZkk2avJSYuI PpqBB6kyOsmM6BoaYS3OE Neu5n4Qm52N37wV7IoeUP +NRVnrWQ1kSK0 xM9eQsOzLcJ0TVyuN202B uCutBXiHbvpm3vap4lvvO q9DoT4APUeceJgjIqmVQN 6j8FrGt87C01q IHdpZHRoPSIxNSUiIHZhb Tenfw4fsW6bXy1+PGNvbC I8dER7kM2jNrCwLkH4TSr xM207ZsFdzRXy Mfbat3udz0pdiAr9CsLxJ EEigwFykXkpQTA2j2UjSj 27C1EukKfwx4YeZvb0gr9 1uWRyy2W2xUY6 I7EoFXBodmpekHRbhHacU J1wISYemyhhODAlrT6nHN NtM0k2FiCpHrO2OJmyR1I rrgF1DCDulFMs YFIsdRLWkF4dlxpkg8vhz jvoYpKqFWDmPEp7TWx5IW BziUmuQaAbOZK9WnA0LZM 3gOLmtZ9icZqx hsjpaE8zXfu+XNA4aWJio AYILT5rHiwtwVM+PHRkIH G9vSjyAYytQRSykB2pCSL iV3b5XhAsDwG8 BXfwF9VnqkO9RDTryAJcS RKnaKYRbX9aotifv3hzat kkEoCjLMKcLRe9AOx0PBY saWduOiBsZWZ0 TqY1ANG3wNDlrM0fxMsug twgmG5fAst+QmlydGggRG Z8BLu4K6RwFkf7DATccDe xIW0ovIPfYJpe Xk3laSosxAdgER5lFCPwl dyui244KjMqe2vhQRTqbJ JlSQsbZXP5B40cb4P6MBH sUHMwYSK9hON1 eT6fnNrmfmsphDBsoXdtt oUaxDzuKCzyZNzmF539ZK VfiZypTbNqOGy4E5WwOhi 6ZVVfuZvlVM1f rMOaWKxgSx9ilFewuGqzW G7sWLOqlohov866CyOqb0 psLCNhfHEcQIaiRMO2M84 kc6G6ZZFgLYQs NDE6ySC2cM3ecItorvbhd GVmdDsgdmVydGljYWwtYW tqD359LVPryXinNuDbdEq 1Y3NfNmu4JQEd kVvxKL0nsHSpOJiqLz8rv YrwwLzgAA2jYHJtkwwxa6 36RhVya2lwIKWupKAgTJw hAFD9E07nw1F0 RPEfMSKdLFP5wPS2fU7mw GlnbjogbGVmdDsgdmVydG tzOAirGMphK325FWLvuHo nPlBhdGllbnQg ICuhFNx4M8BqFrbgkAC+P I63AAHxBB26eLJvzPXsk6 rbdKf8KrQrFVLmTPQ0mLf jDAamk2FgDGKz M78zbHBmm8H8YPFxiBitu NFjNvLdiBX8rB8dSYrsgb zdu6romovqYaxhh2ugnd9 3lR02H60oHXcr ZHRoPSIzMCUiIHZhbGlnb z1ifR6wBo3+GEJzkMU6dD G4yX9tMNKfNtA2NPhjZ31 9InRvcCIvPjxj f6ddj8bkeQk3AmM8NDVvd cJhnBeeRSH0c7KkEv95Q8 9sIHdpZHRoPSIyMCUiIHZ ylKwyob0lmZ2i Ii8+BPVnqCN6cPQ3qF6xS jZzTuG0TBpqE402HkYbgX OlLsicX81dH8QvvZC+PHR sCgr7DKXkfIbv OR6yzERlAGlbPc2nSTX5Y mTeBaJaGMezP9QdYYNpyo glpnapxII7DFOoQJDfwC8 6Ok1xkEgeVPEw bQDJaO5gcufeo2zffomkM aSsHCVcCRm6PXw9MZElaH prMeTtNWP7SuL6DAD5hAS nyY6ciInpxnwk bZ9lU2FkBJLbyeswIa91s P9bIyWqGqO2POrnRqu+SE LCUG0STAWUYNRDPNGuYDB CHL33GN58qEBq v2U8iMN1I8VhJPXppkpsm bpvwYO7VMPbGYHocE70tS IvZHcpAj2vg1R5a852VQX dFTGxwN58Ll7f iXtnMIYxiBDKeI1lfcmbd 1pxaputFgJhFVFlMNa6CF l9ZTJvrJcgJkJjUOJ7DnE 1FKM4pNBpwB3s lDyoevoolL0gUcl+MDMvM AKiEPl1RJfpmFQ+PHRkIH V8nXwzFIvgECRqxY0kTSU sD9c2UySoFiX9 KInlG1BzOTWbanbvDi48x M5zCgOlAqF1KScdB1Ohrm P5PKAayISeFAgbHQV8U81 bz1I4XRDvEKVg TIX3jSZ8eT7clZxoguenw GVmdDsgdmVydGljYWwtYW duG763JCSfdDlvEoWwFIq gQKGnNZ55KH28 iZUva6S7uUT5K3CrRRBwh gaclbpvpVY4ODHkPZBbeX 64dUHsVWekEn8mp4S3s95 6EMExPAQloG51 Dh8aoSiiONCsuYKXmV4dx xede2jafossMmWfRPHjWS t5FSs6MPNnuDeuXzFnUVG 0IbX6AOT1hBZh xZ8sbAlsjrpxdK5rUeu+R fCNCZxVQV16SE84aRWul6 S3uAT5N0XxEIXvtmrzedk usBM9HAHmEVCi pM22zPOlNHneHb3en4I6u 306AHKvEDDyiF15Qi2enH evSYAupQRQkD5cfboit2o vcjogIzAwMDAw NCo8CRk7GRRmoAbfHiTxW AX7MoJ6ROT1eKSdcT8fcK gylmazgH1jHdw+V0E6J0T kPjwvdHI+PC90 UDLiGE69vJFqiZClo3dxv Jv8QnIpNIFwZOT2iKayCS iha6LpFAOgK06idRQbh0R 6IGNvbGxhcHNl SiZdfXA1iY0cFShodayvm 8oooyriOnyqd8hwwc01wZ 73B82tEQzlOUGfCIUeXAW zCMPkqSotpw8r yY7zRv3+TYPxcKF4xBD8v W0qXnFiIyW0ATjrB341Eu VxnXCrUfple4xuf6viaTm 9IjIwJSIgdmFs zIbpDCD5b9AyGq21J94kR HdpZHRoPSIyMCUiIHZhbG dvor6niB8tCj5+ZW9aa9z djn65aT36xHE+ QAYnJLZ1xLpyJBzmMFAbg Z0bZCcpEuD5MRKcLkPvsY 87jLPaARdmMj2znBbeaAl oLX4pREVkiwfj e882WaGqd4bfQJJgqTUeK XhsILQ1V98ns5U4GNGwYL RxFCV7pST0yN9nuIdauug gbGVmdDsgdmVy wHaaCByqKEtsU811QSRaa WjcQqCgyLDhY6xepiJIZP 1lOjwvdGQ+IWZlDAS6cVy pBGkrKSEciU7i TRTjY2a8UuIoShA0HQogV 9ObdyZ3WPKsuXTaAHRlvA YTmU3vullwi5scltytQpY wFLNxMCo7DDv8 TQVdtSmuPeQbYMC5FrC4Z TL1hJSocX7zcXuhwcbmtJ 9wOyc+RklOOjwvdGQ+PHR pGFB9pJxvHNpd ACXbgP7gORXsS1r2IiJgU tD9WYgrX3YgkxN7PGDfqF MeLEGtrDOElJ3jzbzvv9f vcjogIzAwMDAw YEz5GAx2SKZanNylEjXxQ KK7WnE2HHP8dIJmuH9drN kusnpuxZ6kIoa+TVJOOjw vdGQ+PHRkIHN0 eRqsCMjsFMHqsY2vHPJbW 3g4KaZjCvY2ZAqoG8Csbt V1BWZinIIyZXBciJKZgL1 uuvhuj0cmptnm QlXiNETcTRq3VHr7YEApe SmzTgSjBJC5CdV5FBE5nJ JmlA5sbGkxifepvX3yIum +UPO8DCM4IO55 FJ27H1JnYsydiDLhpDH+P HRhYmxlIHdpZHRoPScxMD QsYyFleDybWX6jVn9nOBL yLWNvbGxhcHNl OiB (more content not included)... Normal [facility] C Urineon 09-03-2023 C Urine Urine Culture ordere d as a result of parameters set on specific urine dip and urine microsopic results. Mixed skin, or urogenital wally. Clinically insignificant Normal [facility] Comment on above: Performed By: #### 5 [id number], [id number] ####[facility] (DEFAULT)[address] [place] [address] ED Clinical Summaryon 2023 ED Clinical Summary [facility] ? Urgent Care [address] [place] [address] Clinical Summary PERSON INFORMATION Name: CHINMAY KNIGHT Age: 48 Years Sex: FEMALE : 1975 MRN: Acct#: Visit Reason: UC - Genital Itching/Lesions; UC - Urinary Frequency; GENITAL ITCHINESS Arrival: 09/01/2023 14:44:59 Discharge: 09/01/2023 15:34:00 LOS: 000 00:50 Check In: 09/01/2023 14:44:59 Checkout: 09/01/2023 15:34:00 Address: [address] [address] PCP: Provider, None PROVIDER INFORMATION Provider Role [...] verbalizes understanding of instructions given Comment: Normal [facility] ED Patient Summaryon 024 ED Patient Summary [facility] ? Urgent Care [address] [place] [address] PATIENT DISCHARGE INSTRUCTIONS Patient Information Name: CHINMAY [...] is treated with medicine. Medicines may be wrzm-sil-lhqpukf or prescription. You may be told to use one or more of the following: ? Medicine that is taken by mouth (orally). ? Medicine that is applied as a cream (topically). ? Medicine that is inserted directly into the vagina (suppository). Follow these instructions at home: ? Take or apply ietz-cfg-vlhhtsd and prescription medicines only as told by [...] is treated with medicine. Medicines may be bnql-fdc-fvyctey or prescription. ? Take or apply oqyy-nei-dbyyhte and prescription medicines only as told by [...] provider. Document Revised: 05/21/2021 Document Reviewed: 05/21/2021 [employer] Patient Education ? 2022 Compound Time. Medication In (more content not included)... [facility] UA Rtsmo1cl 09-01-2023 UA Bacteria Rare [facility] Comment on above: Order Comment: Urina lysis Microscopic order added on by Desmos Expert Rules system. Performed By: #### 5 [id number], [id number] ####[facility] (DEFAULT)[address] [place] [address] UA RBC 3-5 [facility] Comment on above: Order Comment: Urina lysis Microscopic order added on by [employer] Expert Rules system. Performed By: #### 5 [id number], [id number] ####[facility] (DEFAULT)[address] [place] [address] UA Squam Epi Few [facility] Comment on above: Order Comment: Urina lysis Microscopic order added on by [employer] Expert Rules system. Performed By: #### 5 [id number], [id number], [id number] ####[facility] (DEFAULT)[address] [place] [address] UA WBC 25-30 [facility] Comment on above: Order Comment: Urina lysis Microscopic order added on by Discern Expert Rules system. Performed By: #### 5 [id number], [id number] ####[facility] (DEFAULT)[address] [place] [address]2063 UA w Culture if Ind Standard on 09-01-2023 Breakpoint UA [facility] Comment on above: Performed By: #### 5 [id number], [id number], [id number] ####[facility] (DEFAULT)[address] [place] [address]909 Color (U) Yellow [facility] Comment on above: Performed By: #### 5 [id number], [id number], [id number] ####[facility] (DEFAULT)[address] [place] [address]678 Culture? Indicated Invalid Interpretation Code [facility] Comment on above: Result Comment: Resu lt created by rule GL_MAGR_ADD_UA_CULT Result created by rule GL_MAGR_ADD_UA_CULT Result created by rule GL_MAGR_ADD_UA_CULT1 Result created by rule GL_MAGR_ADD_UA_CULT Performed By: #### 5 [id number], [id number], [id number] ####[facility] (DEFAULT)[address] [place] [address]245 Glucose (U) [Mass/Vol] mg/dL Normal [facility] Comment on above: Performed By: #### 5 [id number], [id number], [id number] ####[facility] (DEFAULT)[address] [place] [address] 05617 Ketones Ql (U) Negative [facility] Comment on above: Performed By: #### 5 [id number], [id number], [id number] ####[facility] (DEFAULT)[address] [place] [address] 70305 Micro? Indicated Invalid Interpretation Code [facility] Comment on above: Result Comment: Resu lt created by rule GL_MAGR_ADD_UA_MICRO Performed By: #### 5 [id number], [id number], [id number] ####[facility] (DEFAULT)[address] [place] [address]10 UA Bilirubin Negative Normal [facility] Comment on above: Performed By: #### 5 [id number], [id number], [id number] ####[facility] (DEFAULT)[address] [place] [address] 63217 UA Blood Negative Normal NEGATIVE [facility] Comment on above: Performed By: #### 5 [id number], [id number], [id number] ####[facility] (DEFAULT)[address] [place] [address] 79111 UA Clarity CLEAR Normal CLEAR [facility] Comment on above: Performed By: #### 5 [id number], [id number], [id number] ####[facility] (DEFAULT)[address] [place] [address] 13751 UA Leuk Est SMALL Abnormal NEGATIVE [facility] Comment on above: Performed By: #### 5 [id number], [id number], [id number] ####[facility] (DEFAULT)[address] [place] [address]26[address] UA Nitrite Negative Normal NEGATIVE [facility] Comment on above: Performed By: #### 5 [id number], [id number], [id number] ####[facility] (DEFAULT)[address] [place] [address] 18922 UA pH 6.0 Normal 5-8 [facility] Comment on above: Performed By: #### 5 [id number], [id number], [id number] ####[facility] (DEFAULT)[address] [place] [address] 62346 UA Protein Negative Normal NEGATIVE [facility] Comment on above: Performed By: #### 5 [id number], [id number], [id number] ####[facility] (DEFAULT)[address] [place] [address] 47453 UA Spec Grav >=1.030 Normal 1.001-1.035 [facility] Comment on above: Performed By: #### 5 [id number], [id number], [id number] ####[facility] (DEFAULT)[address] [place] [address] UA Urobilinogen 0.2 mg/dL Normal 0.2-1.0 [facility] Comment on above: Performed By: #### 5 [id number], [id number], [id number] ####[facility] (DEFAULT)[address] [place] [address] 53397 Urine Source Clean Catch Normal [facility] Comment on above: Performed By: #### 5 [id number], [id number], [id number] ####[facility] (DEFAULT)[address] [place] [address] Urgent Care Rec[facility] 024 Urgent Care Record [facility] ? Urgent Care [address] [place] [address] PATIENT DISCHARGE INSTRUCTIONS Patient Information Name: CHINMAY KNIGHT Age: 48 Years Date of : 1975 Reason For Visit: Itching; GENITAL ITCHINESS Arrival Time: 09/01/2023 14:44:59 Primary Care Physician: Provider, None Attending Physician: Romeo Meneses Comment: Visit Diagnosis: Diagnoses This Visit Abnormal urinalysis (R82.90) Itching ([id number]) Yeast infection of the vagina (B37.31) If [...] and treatment you received today in the [facility] were for an urgent problem and are not intended as complete care. It is important for you to follow up with a doctor, nurse practitioner, or physician?s fleet assistant for ongoing care. If your symptoms become [...] so we can reach you if necessary. [facility] has provided you with a complete list of medications post discharge. 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 Any specific questions regarding your chronic medications and dosages should be discussed with your primary care physician(s) and/or pharmacist. New Medications [id number], [address], [place] [id number], [phone] fluconazole (Diflucan 150 mg oral tablet) 1 [...] (Inserted Image. Un (more content not included)... [facility] Coding Summaryon 08-21-2023 Coding Summary HTMLBase 64 CsjqhwjsPCy1xUt+PGhlY WQ+LE3EPYNwO73qoQDlgD 9gG5BRIDyQLoiyDINIHGv VXuDbmuXkIL3ndQGmHLNy IC8+DQ2gOEXpKedspGVhh 2W0dOH5D37xda3xXVwujV K8DWJcSiQjyguwf8ebhQj 6IDcuNmluOyBt MUHytT81KYI2wQ21Ii60q ALbjGScp6zbiYc6ErGaKD SeBYV8fYigAOans9VcCOI yU38xkMPrp7M0 SMRnfObvvZTaDzNeePU4c T4nFEctbfsis4uonzxmZz d8vf01vOOdc8P8bKA6T0T rcaD2BVVtlXBs VhgqzZMFyN7hfflrn1xks dwwHzHjQNZvAZw9JYl9RE YzbNrwIqMlLP84SEI5QGU ulgDyA3SfHUSa uUvhJgL5r8B1Cz6FK1NVJ sgnR7OHCMCLNBldaYL+PC 15tf23M5BeIrrsCpe9VWV jZAB3gOU0xL0y CFMqPAboi2P3hWU5X4Rkt cNxfd0ha4zwBPUiMSoiJ1 1htKSvq7H2SXIhvGV2XJQ gnMagXyPprO36 Oyc+HMQgyCbou8OpWrgeh 3jwb2zkxKf7IsckLJGpuq GziHzjHFU0s4IbEf6lHSD skJO9mML7vH4e UxYrNjG1JArrG579GgPfl IZeAtruT01wI9QzuSW+PH XnPwb7TVQbeCueXU6eX2G hZGRpbmctbGVm qFymJH5nQUCyarxnCMIgh Q6vBGYqB5n0PkFmFdC0OE waI1XcNMHwzodjTv66xA5 hQpAiGkF7BZvs T9VcjpO1QSQvjKKvAGkyA PS7B35co0G5TKAtFDItVK J6wPO1zD5vwBbicdjnbQL mdDsgdmVydGlj ZCunPRrdF948KLXlaNdoH kNvZGluZyBEYXRlOiAgMD YvMDYvMjAyNDwvdGQ+PHR yIOK4yPwhMUPn mNMwYMxkXn6ihVdjrTztI E8aEWDfsaqsJAXytB2qPW BxcRWnxYbvVL0fIJLsair kt584RhHjLLZ5 YCPuvJSwP2AtzF6vLpExR MCwSDRcQ5PsnKOlYUncE7 75XGkuSnN4DRQetpLoO7T sLWFsaWduOiB0 b0V2Hl5Om9NgivqeC3Pql ZMuBmChYywbOEn3A4AuCe wvdHI+ES76FHZwCU19BSu 1DHU9lItdUQuh TJDiF3QknU7pTnOuQXEuV GRkOyc+PHRhYmxlIHdpZH RoPScxMDAlJyBzdHlsZT0 bCi8sCTOzVFOr cLideSSkCyUqi9rdJGCzY BkyXB4viBhgF2WmwHU4MR Wmm0c4Da26Y92nG2MptLH +XSJsaIA5pLV4 vS0oRhAtAlF9BRnwO796D eMghSPsBnpkw4aii9ddnE s1RdL3SARqnrXrbYkoCBX 7b1BrSj38I70a IHdpZHRoPSIxNSUiIHZhb Okrck4ajD2sLl2+PGNvbC Q8fWH5qF5qRiBdWrI5STc lK065SoGtbFCf Iwqfu5unh6jseXj0JnYkC KLxotYdwLzoKDQ1d4ExWl 72D3XgzJgju9SnCgs5fm6 3hIAwd2M3tWN6 V2OdCPJznuwgpBObtPllF G5fOECptzzwKBTmmV5jNN DoU0r8HxJlVhX5QYxiO2C zwuL6LUHkiPPo JMRqeVKQrG7afuqfq8lyb hofQdGpCNLhRQg4CUn7XW BopKviVkEtIGJ5BdM4GJD 2cCOgoH8xvLan cqupqT7yUeb+IYE6fRBnf QMUFV1fXuywyTC+PHRkIH T8bHyiBFdkTQHbdM4hQDA kG4v6MsKcPhU5 MDqqY9ZozkM1GNAboTIzR PRbyOOVlZ5hivctn7nzhh ypRpAjNTMfEKi0DTe7HXY saWduOiBsZWZ0 SiV8LEE1tJXcvQ8ogCvcl suxbI2sWnw+QmlydGggRG S2CWc8E0NgCvh2ICFjsWm oUO5xgGTlHGlb Pb7rfEzawWshAP5mAMZcu jijo460QoSph5lhIAAdvQ RhNDbkETZ9M53ac1X6POA uSGPcRWN4eNZ2 aH7yzGpuxorijRInbGamo eDtjIjmUOukLYokO179NL AviYidZsBwECt1K5DuDyc 6BNMivNyzLW4t xXCuLSqgCw5zeJhprYfhM P1qWWZzaevto348VzCzv0 qqYPXytFZsHHqyTRZ2P47 mr2N8TDWwNTCi KHR8qRV5nQ6svNskwefdl GVmdDsgdmVydGljYWwtYW hjH056PGPrbYhzGzIkuZo 9J5MtKje1VUWi iLvrTB2vaLUmRNijFl8yj VclgNzpEA9lELNlcpduq9 49UsXug7fhBKTmeJZqIPt yDEU3M93wz4T6 EJPdBBOsOMA2eRA7kR2ko GlnbjogbGVmdDsgdmVydG yfKEyqKLnmJ117XSJebGe nPlBhdGllbnQg SEqrSNl6D9NjZknzoLK+P O90HDLpAG09yBTyfEGdy4 utfXe8PfAjOKKlUIB9uBq aWQqbg8UaGKYd X43twEIjz3N0WIYtiKizw LQhInAebWB4kV9uHUshcb oqr2wryuwiMqzca8aglx4 8kZ16P73hYYck ZHRoPSIzMCUiIHZhbGlnb n9wyO2kAn5+UDNkwRX7kM E2xP2wWGWtCjE6IGkdO04 9InRvcCIvPjxj j5yzm8brrVz7OkT0BENno tDthNadUBB6n9ZvTx75N4 9sIHdpZHRoPSIyMCUiIHZ jrNadhm4sfA7p Ii8+YBHuoDQ1jZK5gG2vQ mZsMuW6VIksA437CrWqoS ZwJwapJ08dP9TscJS+PHR wUwa9GISnyKjv CM7dtTQsJMbyTm9vLOQ5A nSvQoTxRDcxA4BzUAMigb tlkazaaIO5XHNzQHLffE7 1Uz1tfYxnGBAz eXKMgO1kktlkw3qdpwtxU gOxOCFgMJe2KAj1TIBchC byJpErFFS3NxT2XLK7mSJ dvI7ebEqxvgeo hM9fB1EnOSVqouodLb77m C9fZoEfVhP3JAzhXin+SE IUCV1OXNBOTJPRFACfLWd vdGQ+PHRkIHN0 jKyqCZyoWNIzlP2tXYZdE 7c6FzPpFbG1OEwqQ9DhLE NuknaaDk37eS4xEqEtXcI 3WHvfS3BwzlQ6 HOClbXDtIGbxXGN8N56pw 8P5VDIwNPMiICG9jSV5rM 1hbGlnbjogbGVmdDsgdmV ydGljYWwtYWxp S281DYEqoQfuCvVmKhTcA jJ8YwH5W6ZjMqa7MAExnE zlWB4eeRLlNZddLa6jjUm bfXhxVO4vWINh zavmDKDhaD6hVEXmlYVck QsvDN9xTORakxacr657He BcQXS1ITViiBYxE7LheM7 yOiAjMDAwMDAw R6WweWTnMNvdP115FKewH iV5ELMrpmYmO8ItVMTfqH tpEoL8h0Z8Ww14VHYKYXA yczwvdGQ+PHRk APU8aJhjETniGMWpnI4dZ GEtZ6g1UsOsDqG4RCczC8 CvBQFgqxwwTp49aP7mGmU uKyZ2MOvsW7Zw cvI8VYTtkAZuVIkpBXF2S 95kf7E5GNRhNHDfDPA4tV T8aW3faJypzwpcuLUxuHz gdmVydGljYWwt VYkpN653DJOvaXxvTrPIQ UFMRTwvdGQ+ZEInLVL9lM kuKMkcHGImtW5aPNCmK0w 4ApOcAiJ3ENxb S5CpIVGuzyjqIl75aC2aJ cBoFsU4ULeaT2VqpyX5SJ EvbUByPZvaEAB4H90tw1X 8TQWwPDHyMDG5 hYJ7vI2auGppievswDXfi DsgdmVydGljYWwtYWxpZ2 95CCUhkCroLqLkYUZkJG4 jeTwvdGQ+PC90 cc53E1FwXbgxVhk5OZLkF OV1yKO1cF0eUXEjJNwlc9 V8zXP9I4SiwsOyfh4vn5k fQTWbGKnuU63j jQDvd1J1TXSkkXB2EBHyv LjmShRkuO32Gdi+PGNvbG ixr8VeMoxpk5wyh1pfkAb 9IjMwJSIgdmFs pExeUPW3f8UfZn29N27oO HdpZHRoPSIzMCUiIHZhbG gmrp4nvO9tPd7+PGNvbCB 8mTL0bI2oWxFq ZeZ6FFuuA488MsPqwCXgF krpl6yrn6tjfHn4NkFzTH MpnaGowUpsKGH2n0NvSs3 2K8LurQnld1Ps Pnq0sj85aENmi9X2hKZ1M 3BhZGRpbmctbGVmdDogMC 7pHHUtvqonWXRmlH1aIMV vW8q3SoBzHfI4 LMaeY7JimpS5ETQwtDRjZ MIpbECCqJ6usnbuf1szjf zcNiLaMVSyBAs8GDc7BKS saWduOiBsZWZ0 ArU4HLK6lRVrfO3zfUejp cpzwA9aWra+JSa7t2eieJ DaLD9mqHS6NB82AF28cKF rr7W5nDV9D6Mf KVAkvseunbimhJP5KEZrX HAdmB06Un9sfEarZw9uVU OzEUP7HTPhwVZsF4VrlH8 yOiAjMDAwMDAw R4InrOBjYNziY908IFmjH gX8GRKjkzNvB8YzYHEpuW ubAfN7a9K0Uz7IIJ30CN4 6AY15eDJic8R8 nQM2K6OgKYHultkjrrkwt YQ2WSMlUYOssE62Dk7vwI gpCy2wTAAxXOB7GDNdcJR sM1ZfyG4kKqCh RCRuOVTrO2BesKIoVWigZ 135BByvMxN5KLPtgkPuP4 IkTFBsnRizJgY4b4A6Xk0 ZBe61TS51TW20 rUCdv4L7hXC8X0AcBOJrz xwdsjbxzLD6ULJqUFIvvA 02Mk8vyIjyPh2qSFMjTWN 7MMMuiGKuO9Jm rI3eAePeZMFoDNNlH7Zrb LLfSUxmJ069OPytUvH4IB OtwmWvO2ZdCUYzvDibLsH 6z4T4Wu9VVQpt dts9V1SfAhejaBU+PC90Y WYaMC18kOTboXCpg4ohvR w7MzEmDSJkXCG4sBdcPOc gq6TxNPLeF89x bGF (more content not included)... [facility] Coding Summaryon 07-31-2023 Coding Summary HTMLBase 64 FmqqzlhfIGp4gVu+PGhlY WQ+WI8BNRZoF76ivFBqaN 6jK2RTMDvEAayzEYLIVRp KGaShvzAoUG4tdJArOYUp IC8+ZL6aVHCrResufIMhu 2F1sTD5M69baq2wSEfgoR O9HGHqYuYtdscqs6gvmRa 6IDcuNmluOyBt IWNbmY85HIM1lR19Ld76t NHbjXCap9aqrJf7KaIqOY IoCPA1hWrxKIfsq1IyZOQ eG45lzXGek9D5 YHKynEnuwBJbBnOulCA1r H4oURafjrbqn4lglpgtBe p4wp47qWYcm0U3pKO9B1Q hihP1PATsnLQm WslnhGAOrK4jrqisz4tjh eecKbSaJVSkEGo8TSy8BU WxwGtbYtQmMU59SNX3GGW ghrVrR6LgAKIy vKgxEbK5d1O4Kp1DF0CNF oupJ3NPKRAXVSrdjFS+PC 52lj17U9XrHolkWkz5UWM mVHA7dQK4qU3c DJYgNGtju5Z2nHG5B4Ejy sWnmf6st5zhHRYsXHpbH7 1zzCWog9F1BWPifRJ4HEN gzIcqExRuuH23 Oyc+UJRlgXrir7OxMqxhk 9jmr7phhTq0OixkCGNqdf JylWazVSB0f1ZrSb0gYNG wgFK2vZK9fN1u WeWvSlA0PEubZ418MnApi XNgRqvqV72vJ8XshOK+PH BoQcv2IKKaxEvuYE0aB5N hZGRpbmctbGVm uPzdJD7rCPHrivrpSAYbt L3wSJOhV6t0PsXgSiQ8EC kbD6XhAUBrugnbMv34iC0 hBcKhFeB3QCok D4DvlaD7EZDoaSLzAKopY JQ9F82jw2T7IJCgICCfSI R7pAU8rC0enBtjxbwfiVK mdDsgdmVydGlj OYjcQUimD460ZKZsoFibQ kNvZGluZyBEYXRlOiAgMD UvMTYvMjAyNDwvdGQ+PHR jMED2aSgzDYGo oFOfGGouEs5cnHvepVcuD T8fGCVcogirBDJkwN4tGJ YzuIXfmCtmMJ7fJTGyihr it368KvTgQZC1 EBEwuRJeJ4IcoC9tIsHiN ZClLYApA5JtbYYuUYzvV3 99FBvhSwI3PUZghsZyF4Q sLWFsaWduOiB0 u5B6Kn5Oh5DgmqbfZ6Afc ZIfWbOzBpdpFOg9V1LxHu wvdHI+LQ89IBUoQH68JAb 2WPY1eAelDLug UBQhR6JswM0wXlDwDXYxM GRkOyc+PHRhYmxlIHdpZH RoPScxMDAlJyBzdHlsZT0 bZa3lHJFhLSLa tHrlsBPzCbHxl8ihSGCkA JhkWA2rwZfoQ8SbjXU4GF Igh3y7Kg71H30qU3StfOW +QGYotBO1fCE6 eR7bSdDsQoJ1XOywA640U kZphEQyCfkot8jom3mwdO m2WzA0GATrkbOpnHcjACO 4g1ZdPk19Z81z IHdpZHRoPSIxNSUiIHZhb Phqll8gkZ0vYa6+PGNvbC A7wMU2cE7qGfZnTtE3GNy iI054YkSzgSBt Aorrq2mbe9skkFb1AnBzN DVkaaYsbImdVHV5v5XuPv 59E6ExmMcwo9OlUoa7wd5 4xVOjv3P0iJV0 H6BlQCMzbilbsYFhwAuyZ Q2lASVlysivQXWgmI9nVY XqK1z1CzUdCmU9IEjqK6Y zufQ7IVCcmXFf YKLkaVWYqV1hjujsj2xof onyNwVdBSIxBQz2LZg6HH EerQfiFrXrNQU5ImG0FZK 7rHGrjO7khZjv fprvwS5lSul+MCA3rJIwi SQGPW7fZbqchVL+PHRkIH G3wTygWDjxGRLtdS3mJST pM9f0LpYnQbX3 EEbhS8VviqU2GAMolQGcG OTqsTMIoC8qlnxtd0lzce gmNnEsKUHjJSb0KUq8BYQ saWduOiBsZWZ0 EkM2BMC9mTMtgU2onZyav gqvvX6qRex+QmlydGggRG V9PYy2F1LrTde4ZPLrxQk mPR5frXTgPElm Or9yqLmnjRieVW6uCQRpt jpcq954WcCcm6zyIFJpnZ WyJNajXWF9J18ai9N3ZVQ tVHSyXRM0zXG7 zH7moGulfbwkrWMouZoog jUwpBroZRfyAOiiV190DR ZulTkjHkYpZAg9U4MrTrx 9NZPryQeiLU0x fKCjBSytNx9koFojlExcL Y5gSCFhiddnb867DuUbs6 wvSUUnkPQpXQxyZRQ8Z42 xb8W8OTAyYZUr BLN6zVF4rL7erBvvylcru GVmdDsgdmVydGljYWwtYW jkT288MLQblLfsNfUbePk 3Z9OwZsi7YAJh xNasMN7dhOJfLSshQz9dd FkysFrdPT7oUUQfchkjt3 71MkPcr8wgEZRthTNmPQa mFYT0F66vo1U5 BEMtHKAkVOE4cHW0vC2yh GlnbjogbGVmdDsgdmVydG viPThwHGvtF209YTIhrCt nPlBhdGllbnQg TZhyUPp2B3CpImxugAH+P A39ACGxLV31rGDabWBfk8 qyuBt0VeZhGJHdFTH5sIu rERkvc4JiEDMf R96ywLVyg6D8KXUqjZxzm FSxSeDayDL7yF4wZValko ath7vehafrZwwlv2uiac7 2rA19B72eMFoh ZHRoPSIzMCUiIHZhbGlnb p5vxB5qHk5+LYKhnNI4jB Q0hJ1wQTZwRzS7SHgfF65 9InRvcCIvPjxj p9mfk5oooQd6XhM9AFKrp jVhzDqvVBP4k5MjBh52Y2 9sIHdpZHRoPSIyMCUiIHZ ckQdyzi7cnM1s Ii8+JENufYV9yQW0eW7gT gCsVsF0VFhwU890YcLeeG JlNsfnW62tG2XeaEV+PHR gXrn7TSPrnEdq BI4chPKkTDidQe2fWGE8G mOjDwRxYDweV9GpQLAdkz marmoxyYF1OZWzJFQoiZ3 3Xx6gmAyqQQXr dTSJyA0mocefp1dsytqwO qHiCEQiCMu8PZt7UUCceJ spSgMyPXG4JeR7STE0wCL rvM0ayWtpamjb tZ9xN7MpFGJfsbsgTw72v K6lEsYsDmW6IFygYgq+SE SAEK1RFKLXOECXVQHuNSs vdGQ+PHRkIHN0 jBxhTBifUDCilQ5bSDFdR 5h9JgUjTrE7LCoiY4FwWJ FocubhPi06mV2wBxHoMhQ 5NSqjX8QwtmJ5 LQDtqYXdPKwfMIZ7M84by 8I9ZBYjNYTbMXV3mQH3mQ 1hbGlnbjogbGVmdDsgdmV ydGljYWwtYWxp W531HWQsdJpkFwWkTaPsL rE0BlQ7F6MfUih6JSPkiN nuZI0caKWtPNlcLd7byKy gbBxeYB5dJFLm audyRJTntW1uQLZaaDNhy MimMU0wDMIcqsujq517Ol XuAKA2APQjiQNuO0RnrS2 yOiAjMDAwMDAw E3NzwOPnXKzsV714DAvlW mP7PGDunmUnP3YdJGApnA cdBmB5i6X2Ve14YYIMNCH yczwvdGQ+PHRk GFP5aAsvUZhsZMNbjW9lD KXgN3n3QaZzWdJ5CKdrJ0 EcABZnnkuxRl17mU2sJyB yLvU8GWoeN9Eh rmL8TDJhmIMpXJzkLJH1T 78rj1P8QWKiLEOwLDG2jI A3zH4gwTaucgvzbPAzpFz gdmVydGljYWwt MSlhB616BLNkaByoCpRJT UFMRTwvdGQ+RBCiKMW3lE qaGSgnYNLghX8oEEBiB2s 8LaTmFmX5EOrn Q5JaJUWhfcsuLn37eJ0nC yMlErY2EYafF9WzllW7OC UycZYjNBwmRWT7Z12nb4Z 2FUHyQJSqCNP1 sBC9pH2zyWjrfyowcZXgs DsgdmVydGljYWwtYWxpZ2 54HSZglPafAcItACYsQD2 jeTwvdGQ+PC90 fv82D4CuLeolPhv2UBSfE CE7dFL5rZ7xZYXhYFwon3 O6iMG5M6WcawNyyh7yb9i gYYQrSBsvY40m sPRwd6S1BEUgdYA3QXHng JanUcDgeA14Brz+PGNvbG qkx6GvFyytw4tgq3nmzJe 9IjMwJSIgdmFs iOwlSSM5x9SsNs82E65eN HdpZHRoPSIzMCUiIHZhbG wibf7uqP0bJn0+PGNvbCB 1zEL0zV6xYuVc WyF5FHmuJ224SaZrqMKdV jgjn8sls5sjrDy9MwIqOP YdedHhtDzdZOP0n2SsCo9 9V8EnsZros5Il Urw9ir56sCCmh7B2uXR9O 3BhZGRpbmctbGVmdDogMC 4cRCEbpjllCTKurO2pDNK qX5u9EuThPyW7 XLtvH3VhtuF9FMJfyHBoT KXeyJCGaD5qtljxi0axxd gwMlFhXFAsCZn6BAp5HXL saWduOiBsZWZ0 GrA8KSC4aODoiJ9evVpso ckhuO5fTwy+GUj8i0wmvG TsVT7ybPB8TP13NG12mGO ev6S0nKZ8S2Ht OHAwmxpuutadeLD9IVByZ QMliL88Ph4foKfuEn4rVO SoUPW1LNHbwGSmP1OftX6 yOiAjMDAwMDAw S7TgxLItBUswO699URqzI vR3KNTnjxUqP2KfYOKbyP usObJ7j3F6Jm3QGY26LL5 1AB09eQChs1O5 kKL3V2IlOXNynhoggaukz EO9QGLhQSResM70Nn0rbF boSj2oFBSwACF7ZKSanCK hV7YxpZ3cItYy JBIlIJBnN5KtbOLxJIoiT 678PTxbYxX8UGMfyqQdI2 LkCNAekOztIrM8w6Z6Qv9 YFq31IA55EL60 rVZfq8O3kTR1S2YbIOXjc ddekjipeTX8LCNwSYJszJ 53Zj7omWfxAw3fBFUwYGH 4VARzxVMlM0Zo lK1uYsWfEWMeTBWaQ2Rwh ECiGSwsQ761SRmyQgG2PT DjsgYrW8QdXFBhcKtzVlI 3d8M0Jt1GISsu qug9W7YtAlwgeUL+PC90Y JWzQV90pPUryPYai1nynX g3ZgCfAHPoSRU3vDgrVPy zk8MiPMNvU91q bGF (more content not included)... [facility] Coding Summary HTMLBase 64 HmhzpihbQXp8kTu+PGhlY WQ+HB6TXADsL63zaOOvdG 9bU1XLDSoOEcxmHLRJVVc ZLkWfrkHpVN3kxLTnKHXh IC8+HR5sAPZuCaoqhDEkz 2W3fOI9O03leh9pMLnyxB B7LZQxGpMtbmsau3modGu 6IDcuNmluOyBt PYNwvK22RPX5gD21Kz41m VWfoWPfg3wieRo0BbKiGX XaKZR6wIilEOays0SuLJN aZ96ldFNvf8W1 HFJbiBbawOOlUePaoRH8h V2oNLbuymwjb0odbfrjJt e3gl31tHGva6H8zDU8N1S epnD8HFYbjYGk EtkstEVWvU3uoipuv2fpr nruCiJoFYEyHJb0RTd8LX JoqTgnLbJjSJ78CGS5FDT kxhOkS1SqIYUa oTfxVaD4p6Y1Bg7HV0HLS cdaN8XIJICKDDuujSV+PC 26yq20P7KsMqjaOmj2FHN nAUA7fAG3zM4l OAAuJYzod7H7wXG1H0Cyf uZdnh9oy9joRNPkMVcnY3 9koXNfd0Z6KEVdxVV3LWQ heVocHsYzgZ26 Oyc+ICBcfTjhs5JfLdlhd 2ota6faiMt5QwvhJSNzwh BazHciJYP0n8JnIo3yAOJ wtXZ9lMB2pC7h JeAsZfM4NGsoN748ZhJqz SOoOaunR90sB0CxfRK+PH CuYjq7SDJvnGhkIA5xQ9G hZGRpbmctbGVm fMgkRN8pPOBlirnaLZEmq I1hJFDgV8w5VjSsDkG7KB rnG4TvJJNcchnpSj49fJ5 sDnKaMmN4ECjf R9PzyyB6SWXyrAAgYKasZ FN3U22fs8P7WBXpSQPsYE E0qVC0yZ5cdMnrwxjztSF mdDsgdmVydGlj HWtyDLajW648ZXBkoGwmR kNvZGluZyBEYXRlOiAgMD UvMTYvMjAyNDwvdGQ+PHR cFXV5xLepZZAa oUNsUJsoMx4hgIiexOryJ X2fJPDxdaeuJSQtdQ1vOF PefKFarNgqSH7jZYLeuck yx870QoRqARV8 KCGkwZAyH4CcvU6uAjCdH JXaLVEzI5EyzMIwKWheD8 61AZkiShN1SGFkptTeP0F sLWFsaWduOiB0 f3J9Yx2Wn4MjajwyV0Mha AGcTeMfOheqYXn5Z7SjEq wvdHI+HA25VQEiXU78DAp 5QKC7mBujSQbg QNGnX8WvwT8rAnYiUWBmI GRkOyc+PHRhYmxlIHdpZH RoPScxMDAlJyBzdHlsZT0 oPu9aDWHiSAAx tOkgeTFcAmHru0guAEEyV AvvZX8mrQtqR0IqlNP9XM Wgi9r5Jb42H67eA7ChpEW +EXHmqHI5dSF6 nD4qWhHjSwY9GTslO634K dQyxPRjIkxor8qfs2vjpM u9OkT2GHUqogDcsSfuYOJ 1j6FpTb90L33p IHdpZHRoPSIxNSUiIHZhb Atigy8mpJ9tWx1+PGNvbC M3zHR3qJ9eWxSuWkM1FCh uV356YcIdcDSm Gxslm0swj2owaXd1UeKvO ZJwmyOtqBeqAMU7d3EvBo 48W1IfwNatf6SlVis0hi3 0gTYya4O1lSU3 E6DoCOOiikhnbRMtnRtnT Q6tSAFggktbFCFxdT2eWX YtC7d9DfDwFwO8BAvuA3O lbkZ5ESXfbNBz HPKgmNUZtT4rkitqu7mkx btnSeBxCJZjJJu4POj5FP AdoTrjCuWfITX9VbE5KHD 4lBIsiL1oqGdw ucxorS2vNqy+TEI2kIQga PTYWP7rYrloiTD+PHRkIH D0sIgwFRqgWDGwzE0cBFE aE5k0QqTzJrC7 WVewE1XbbrA6YGEkvFQtS ZVdqOQFqP3lvqydz0ndbh qiJgRtRAEkJMf1YJu0XAT saWduOiBsZWZ0 ZwE6DEJ4dBZnxX1epUgpv ghedI6aRdy+QmlydGggRG X5WCb1P8UwKyb6ESAoiUd pXP6dgLAxEGia Rw2oiHghfJnbCJ0qRGPqm ldwf508JjYzw8pvFSFgfM QpVYpyWWK7Z49dl5W2FNS gFANiAKT7dYW0 vP8iiWkqelftiEFtdOgun bImtIluEPtfULcrN384RU FutAoyDdFqPHp6U0DwLqw 5LWLozDoiZV3f xTReLTycJi0rmHonfWkiP A8tAIGillhjp595NpUrf8 oeHKCiqZTlNBkzPLH1Z93 wl9O9MYBeKCTn GDJ3nQE5yI7vbKqboekja GVmdDsgdmVydGljYWwtYW ryT131RQHzjBqdBrErfVz 3Q4SfCth3WURq gOgsJM5kzOYyZJmwCl3ty UxblMkmWJ5tRKGizlvyg4 09YmEgu0diEZSwrFXcAIy sLOG5G66sa6C7 DAMkERQhPRP1kRA2qB5sq GlnbjogbGVmdDsgdmVydG ryHPvjPOesA615YVPpuYz nPlBhdGllbnQg MBkuYUm7J7RaRydyxNK+P O30RCQjVW95dQFwhDKfi4 sqhAo3CtWyNFByPOZ4sQj fFKcle5GkJHVn G79vgSPnw2P1WZQisBcyb XNkYeSjuPC1dR2cUPhadk zcn7tlxflqKrkvp5mnks0 6jJ17Z53jKNcf ZHRoPSIzMCUiIHZhbGlnb i1ooM8lJb0+HSSizHQ6vI O4qZ2nAUHvYfP0PVvhD43 9InRvcCIvPjxj w1whq3mnpSa0YtL4CLTto lZjsRxnAWB9m8HoFd17W1 9sIHdpZHRoPSIyMCUiIHZ qdYyqqj2btO7r Ii8+DLIrtLK8yMJ4eH1jT mQrQxY4KGqkR287BhDgvF TjOnhzF22iV1XedVX+PHR tNxu4SKChoVse FC3wlRBvCJobGp6vDTS0Y hBbWgShSQhuC9EyEBXwdd gpjgbotMY2QLYbUZGymF6 5Ak7xoPgmEODi sWPCyA9zmrulv5bwvrsjV rRzTCNqBQt3IAv1VVJbxS biMqCoUVA3VvJ7PFV0vCT fgM2zcJmochkc aG1oE2DnMVVpddxpBc49g B3xEpZgGtQ8XLnzUit+SE SLVE4SFFVRHEYOWIAoROp vdGQ+PHRkIHN0 pAjfPAznZGVppJ5mJZImT 0x9TdFgNrP0YWitC4WeEI KvddspGv25jM2iWyMyGeC 4GDsqY6DbezI8 NKMevWYqUWkdZAE8V42gh 2J5PYUwNMWpTXF0nYK0lD 1hbGlnbjogbGVmdDsgdmV ydGljYWwtYWxp R297HHUlqUbgDeNeDuFgE eW6NaW9A8PjPpn7ANVukJ ihHF4kpWBmDQyrEh3vsGx opFyrES4xRWRq snoyESOuzC9oTKJlrRYgu XqsMX0vQQIyblkcp878Hu VcNNI7JGUalQTeI0RuiJ4 yOiAjMDAwMDAw O5LnkZObETvcC389QEdaU kJ8TYAczxSxN1XhOTPtwJ xwKgV9h6Q8Ey64FCMACVL yczwvdGQ+PHRk WIV7fPlzGPikTMQzpW1mO ELiC3c5VwMuPgQ5HRcxC7 QsAPDwsguiCd23fG7iFrU zEcX3STwpW5Dr ixG1ZPCsuINhYItrDVS6W 42mw4A1IQDuTEIbLNQ6aX Z3kL3saKrjoidoyCMzxXx gdmVydGljYWwt EAliA621GTEruChwHsIIJ UFMRTwvdGQ+ZNFmCFL4zD wnVJlmNGZjyY0oILZjD9o 6JnVoKbS2BEjd H0YcEKSgzwqfOt22cB3pY yYfOtD2ZAzcB1VionY5EU YcwWUmZOczEZT0M90zt1J 0GQOuDIBtEEI7 sSZ9lE0uxBxgpdascFFtl DsgdmVydGljYWwtYWxpZ2 59GHMzuUrjRzZxYAJlBD8 jeTwvdGQ+PC90 rd65V2WnDiqdCvv5VITjQ PG0oJS3aI3gJTRjMLqdr5 E5rIE1G5GnyrDzyt6lz7q kSVMwVFecW52p zTFbi3H6YROwjJB4XLHcb RtkKxDmyR82Xmp+PGNvbG bka9SjXaphv3smh0shySb 9IjMwJSIgdmFs oMlxHKC4y5TiHr58I62bO HdpZHRoPSIzMCUiIHZhbG kyqz4hxE3kFn7+PGNvbCB 9iGK3xJ2uJgWg PzA4YMfpZ525OuPyoQEpP dtlg3atp8odqYb6HnIuCE LqbfJoaEyaDBF3r0PwJo4 9A7OowDlnv6Sk Htu2wf08cEZwl5J1iYA1A 3BhZGRpbmctbGVmdDogMC 9wQCLqkeaxSJYbvK6eSCA aP1b5CxUnWwJ2 WLeoL0EyyfY1FAHkfYPtG RPewHJRiW3hofprg0henr zhKgEkBWSvLYr4XFu9VBR saWduOiBsZWZ0 LyK8HIW2iBComL5ipPgvw ixpkQ8tMlg+TZz2c1hvwF VmUX2pdFN3ED34ZR07eHT xb3M5lXT5X5Yb UPUopikmuvpmqWO6GXOnD SLhtR97Gl6rhIetOk1vHI GaXDX6KVIniGPyK5DayR2 yOiAjMDAwMDAw Y6PmuEItFFypF554PYtxQ jN7PPQhgaIkG8UwCQQqwN jbTzP6s2R2Za8AZH00EU4 7GA91mBFpt7G3 mTW4Y5TsIRIvfbwejvhfp IU3MFXbIUMfyZ58Zx6huK ucNh4wJLMbIPE4LQRqtWU hZ5AxgS9pXxCl YUFzZYTxV9QsbDQsJOqfA 169FAniOpP9WJZkgoWlS5 KvBWDpoGuyEaK5s7Q3Oa4 [id number] hWLuj3K0rDM3D7NaZCOfj yqlxoauxIG4DDThHIYfaB 83El3icKvfTu7pATJqUWE 3MSGsqTSnV8Xg aX5pOuBwKBOhHEAbD7Zjk TCiNZgcX906EGyhDqJ9NV RiwuEaN1RmGRHnnBomVnQ 5p8H2Tg8ALTzt uqe5W3UwKktnjPL+PC90Y OEgCX62gUYleMBbt4aleX g4DrAnWSKuLYZ0pJtdJYt qg1HtUJRaB04o bGF (more content not included)... [facility] Coding Queryon 07-26-2023 Coding Query The diagnosis of S/P foot surgery is an accessory diagnosis and is not covered by Medicaid. Can you please review and add additional diagnosis information - if there isn't anything definitive you can add the patient's signs and symptoms to the ED note. Thanks. Thao Santana MD [Transcribed on: 07/26/2023 14:52 EDT] [facility] Consent Formson 07-25-2023 Consent Forms [id number]. 00OTGTIFF [facility] ED Clinical Summaryon 2023 ED Clinical Summary [facility] - Emergency Department [address] [place], [place] [id number] ED Clinical Summary PERSON INFORMATION Name: CHINMAY KNIGHT Age: 48 Years Sex: FEMALE : 1975 MRN: Acct#: Visit Reason: Upper respiratory infection; Facial pain; Facial swelling; Cough; COUGH, HEADACHE, FACIAL SWELLING Arrival: 07/24/2023 21:29:22 Discharge: 07/25/2023 01:01:00 LOS: 000 03:32 Check In: 07/24/2023 21:29:22 Checkout:07/25/2023 01:01:00 Address: [address] [facility] [address] PCP: Provider, None PROVIDER INFORMATION Provider Role Assigned Unassigned Baljit Cope SOUNDSCRIBER MECHANIC Nurse 07/24/2023 21:33:10 Romeo Resendez DO ED [...] PATIENT EDUCATION INFORMATION Instructions: Sinus Infection, Adult, Lluk-xp-Rvzh; Diabetes Mellitus and Nutrition, Adult; Hyperglycemia, Wyvr-zi-Tcff Follow-Up: With: Address: When: Romeo Addison [address] [place] [address] [id number] [facility] () In 2 days 07/27/2023 With: Address: When: [facility] In 2 days 07/26/2023 Comments: home you have a sinus infection; warm compresses take the antibiotic ibuprofen for discomfort reduce your smoking; recheck: [facility], 48 hours, walk in 9 am-7 pm you have a physician in [place]. Continue with that physician, until you locate a physician around here. You may call DR ADDISON'S office, here in [facility], to see about continuing with him. watch your diet, as a diabetic you need to be careful about what you eat You are welcomed to return anytime, especially if fever, increased pain, vomiting T H BRIEN< ER PHYSICIAN< H B Alyssa DIAGNOSIS: Facial swelling; Hyperglycemia; Sinusitis, acute Patient Understands: Yes - Patient/family/caregi marcello verbalizes understanding of instructions given Comment: Normal [facility] ED Patient Summaryon 024 ED Patient Summary [facility] - Emergency Department [address] [place] [address] PATIENT DISCHARGE INSTRUCTIONS Patient Information Name: CHINMAY KNIGHT Age: 48 Years Date of : 1975 [facility]: [id number] Reason For Visit: Upper respiratory infection; Facial pain; Facial swelling; Cough; COUGH, HEADACHE, FACIAL SWELLING Arrival Time: 07/24/2023 21:29:22 Primary Care Physician: Provider, None Attending Physician: Romeo Resendez DO Comment: Visit Diagnosis: Diagnoses This Visit Cough ([id number]) Facial pain ([id number]) Facial swelling ([id number]) Facial swelling (R22.0) Hyperglycemia (R73.9) Sinusitis, acute (J01.90) Upper respiratory infection ([id number]) The Pharmacy at [facility] is open Friday through Friday from [...] alcohol and/or drug addiction problems; contact the [facility] 07/10 Crisis Hotline -Text 4HQUS ql [phone]. If you received any narcotics, sedation, or [...] any legal documents With: Address: When: Romeo Milanaartur [address] [place], [place] [id number] Business (1) In 2 days 07/27/2023 With: Address: When: [facility] In 2 days 07/26/2023 Comments: home you have a sinus infection; warm compresses take the antibiotic ibuprofen for discomfort reduce your smoking; recheck: [facility], 48 hours, walk in 9 am-7 pm you have a physician in [place]. Continue with that physician, until you locate a physician around here. You may call DR ADDISON'S office, here in [facility], to see about continuing with him. watch your diet, as a diabetic you need to be careful about what you eat You are welcomed to return anytime, especially if fever, increased pain, vomiting T H RILEYLEY< ER PHYSICIAN< H Raj [facility] Medication Information: The exam and treatment you received today in the [facility] Emergency Department were for an urgent problem and are not intended as complete care. It is important for you to follow up with a doctor, nurse practitioner, or physician?s fleet assistant for ongoing care. If your symptoms become [...] so we can reach you if necessary. [facility] Emergency Department has provided you with a complete list of medications post discharge. 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 Any specific questions regarding your chronic medications and dosages should be discussed with your primary care physician(s) and/or pharmacist. New Medications [id number], [address], [place] [id number], [phone] clindamycin (clindamycin 300 mg oral capsule) 1 [...] spironolactone (s (more content not included)... Normal [facility] HgbA1c Standardon 07-25-2023 .Hb 15.6 Invalid Interpretation Code [facility] Comment on above: Performed By: #### 1 [id number], [id number], 3605546619, 0320520, 30173747, 8501673658, 6536414792 ####[facility] (DEFAULT)[address] [place] [address] .Hgb A1c 1.18 g/dL Invalid Interpretation Code [facility] Comment on above: Performed By: #### 1 [id number], 4946829827, 1773378147, 8994800, 66808350, 6137444291, 8402443269 ####[facility] (DEFAULT)[address] [place] [address] Glucose [Mass/Vol] 212 mg/dL Invalid Interpretation Code [facility] Comment on above: Performed By: #### 1 [id number], 8386605035, 8881685105, 6494781, 90694656, 2062928561, 5879383305 ####[facility] (DEFAULT)[address] [place] [address] HbA1c (Bld) [Mass fraction] 9.0 % High 4.6-6.2 [facility] Comment on above: Performed By: #### 1 [id number], 0344529149, 5518226927, 8369520, 87177511, 4161958655, 4110801034 ####[facility] (DEFAULT)[address] [place] [address] POCT Glucose Levelon 024 Glucose [Mass/Vol] 267 mg/dL High 74-118 [facility] Comment on above: Result Comment: OPR_ ID=[email or web address],TGC FLAG = False,Meter:[id number] Structural Rigger:89Zhen Avinary Smiley Performed By: #### 4 [id number] ####[facility] (DEFAULT)[address] [place] [address] .Auto Diff 07-24-2023 Auto [place] % 8 % Normal -12 [facility] Comment on above: Performed By: #### 1 [id number], 0339661396, 2822115565, 6573739, 74331004, 6064605625, 9349085120 #### [facility] (DEFAULT) [address] [place] [address] Baso Abs# 0.1 x10 Normal 0.0-0.2 [facility] Comment on above: Performed By: #### 1 [id number], 6465233686, 7700778832, 6262177, 73443446, 1401561317, 7020677156 #### [facility] (DEFAULT) [address] [place] [address] Basophils/100 WBC (Bld) 0.8 % Normal 0.2-2.0 [facility] Comment on above: Performed By: #### 1 122707681, 9841596208, 5427669588, 2634159, 07079417, 0585131145, 9037304847 #### [facility] (DEFAULT) [address] [place] [address] Eos Abs# 0.3 x10 Normal 0.0-0.4 [facility] Comment on above: Performed By: #### 1 993521658, 8295216828, 0435028905, 1516377, 33640725, 3169063598, 9306413572 #### [facility] (DEFAULT) [address] [place] [address] Eosinophils/100 WBC (Bld) 2.3 % Normal 0.9-4.0 [facility] Comment on above: Performed By: #### 1 337950714, 8957575911, 7600552668, 7772144, 25256978, 7913541990, 0405102384 #### [facility] (DEFAULT) [address] [place] [address] Lymph Abs# 2.6 x10 Normal 1.3-2.9 [facility] Comment on above: Performed By: #### 1 935506199, 7970301985, 6811589420, 8658233, 37662969, 1813102554, 8305006152 #### [facility] (DEFAULT) [address] [place] [address] Lymphocytes/100 WBC (Bld) 18 % Normal 14-48 [facility] Comment on above: Performed By: #### 1 702684818, 7634216845, 2730962283, 9486844, 86066901, 6256020601, 9218370079 #### [facility] (DEFAULT) [address] [place] [address] [place] Abs# 1.1 x10 High 0.0-0.8 [facility] Comment on above: Performed By: #### 1 927073158, 8591061936, 0827931774, 1126794, 31338693, 0426555525, 2783362318 #### [facility] (DEFAULT) [address] [place] [address] Neut Abs# 10.1 x10 High 1.5-9.2 [facility] Comment on above: Performed By: #### 1 069517058, 1519435697, 4709504087, 1964956, 96753989, 8026092748, 7300279818 #### [facility] (DEFAULT) [address] [place] [address] Neutrophils/100 WBC (Bld) 71 % Normal 44-88 [facility] Comment on above: Performed By: #### 1 665712556, 0851891461, 2105543798, 1218001, 13800553, 0613082866, 2763920164 #### [facility] (DEFAULT) [address] [place] [address] CBC w/ Auto Diffon 4 Erythrocyte distribution width (RBC) [Ratio] 14.2 % Normal 11.5-15.0 [facility] Comment on above: Performed By: #### 1 993048407, 3120819914, 8964725364, 6392890, 63202561, 2116605062, 2980722568 #### [facility] (DEFAULT) [address] [place] [address] Hematocrit (Bld) [Volume fraction] 45.4 % High 33.7-40.4 [facility] Comment on above: Performed By: #### 1 952020496, 6191825190, 1148188842, 1592497, 40729691, 0972709344, 3260618837 #### [facility] (DEFAULT) [address] [place] [address] Hemoglobin (Bld) [Mass/Vol] 15.1 g/dL Normal 11.3-15.9 [facility] Comment on above: Performed By: #### 1 142072188, 6065409009, 7089739433, 2802893, 09968579, 5528656350, 6484049766 #### [facility] (DEFAULT) [address] [place] [address] Man Diff? Auto Invalid Interpretation Code [facility] Comment on above: Performed By: #### 1 766425236, 3144288166, 4585143963, 5709654, 69616574, 9334534874, 1836532635 #### [facility] (DEFAULT) [address] [place] [address] MCH (RBC) [Entitic mass] 30 pg Normal 24-34 [facility] Comment on above: Performed By: #### 1 061176776, 1217762872, 4376684737, 0206344, 41260534, 2603948877, 7976922798 #### [facility] (DEFAULT) [address] [place] [address] MCHC (RBC) [Mass/Vol] 33 g/dL Normal 26-37 [facility] Comment on above: Performed By: #### 1 470246150, 1936576338, 3837356193, 4525235, 58966468, 3543510238, 8857739996 #### [facility] (DEFAULT) [address] [place] [address] MCV (RBC) [Entitic vol] 92 fL Normal 81-100 [facility] Comment on above: Performed By: #### 1 419385330, 8416528259, 7172370270, 0216838, 50954075, 6540216969, 7130303029 #### [facility] (DEFAULT) [address] [place] [address] Platelet 275 x10 Normal 138-427 [facility] Comment on above: Performed By: #### 1 733234548, 3975743912, 1719127818, 9559622, 22829477, 7221965717, 6861915761 #### [facility] (DEFAULT) [address] [place] [address] Platelet mean volume (Bld) [Entitic vol] 9.0 fL Normal 6.3-10.2 [facility] Comment on above: Performed By: #### 1 196252579, 4334840125, 3383741980, 0821296, 78392712, 6303749935, 1171941612 #### [facility] (DEFAULT) [address] [place] [address] RBC 4.93 x10 Normal 3.70-5.30 [facility] Comment on above: Performed By: #### 1 765911366, 5619695624, 2176570435, 6322593, 61728703, 2084365843, 4553036344 #### [facility] (DEFAULT) [address] [place] [address] WBC 14.3 x10 High 3.5-10.5 [facility] Comment on above: Performed By: #### 1 588178997, 0892098890, 1768406178, 4688698, 25028018, 7981415090, 7688701921 #### [facility] (DEFAULT) [address] [place] [address] CMP Standardon 07-24-2023 eGFR Non AA 48 mL/min/1.73m2 Invalid Interpretation Code [facility] Comment on above: Performed By: #### 1 750871935, 1135312857, 0027417714, 7313521, 62549831, 4973965062, 2381704809 ####[facility] (DEFAULT)[address] [place] [address]003 eGFR AA 58 mL/min/1.73m2 Invalid Interpretation Code [facility] Comment on above: Performed By: #### 1 640199748, 8290502793, 4403689096, 9133399, 81240709, 5653229226, 6052810991 ####[facility] (DEFAULT)[address] [place] [address]8761 Albumin [Mass/Vol] 4.4 g/dL Normal 3.5-5.0 [facility] Comment on above: Performed By: #### 1 055561405, 6457603475, 6872353133, 9431310, 23578209, 9278499584, 4534222911 ####[facility] (DEFAULT)[address] [place] [address]009 Albumin/Globulin [Mass ratio] 0.9 {ratio} Low 1.4-2.6 [facility] Comment on above: Performed By: #### 1 386156743, 8260162342, 1438336291, 2046782, 23691387, 8182775198, 8886484604 ####[facility] (DEFAULT)[address] [place] [address] 36072 Alk Phos 107 IU/L High 32-91 [facility] Comment on above: Performed By: #### 1 255809813, 5610946209, 8662220787, 1024672, 39730532, 0192161515, 6353898559 ####[facility] (DEFAULT)[address] [place] [address] 94265 ALT [Catalytic activity/Vol] 16.0 U/L Normal 14.0-54.0 [facility] Comment on above: Performed By: #### 1 185726748, 1862315222, 7277743546, 5203215, 59679685, 6378591069, 2300909722 ####[facility] (DEFAULT)[address] [place] [address]139 Anion gap [Moles/Vol] 12.8 mmol/L Normal 5.0-19.0 [facility] Comment on above: Performed By: #### 1 679016149, 9141597472, 4478735396, 5362539, 03199030, 7213173482, 0201658261 ####[facility] (DEFAULT)[address] [place] [address] AST [Catalytic activity/Vol] 17 U/L Normal 15-41 [facility] Comment on above: Performed By: #### 1 810339589, 5859222877, 1428571736, 9778470, 77147129, 8313159167, 1902050861 ####[facility] (DEFAULT)[address] [place] [address] Bili Total 0.3 mg/dL Normal 0.3-1.2 [facility] Comment on above: Performed By: #### 1 354083789, 1299582989, 3577790900, 3342713, 54446456, 5840629441, 0239790827 ####[facility] (DEFAULT)[address] [place] [address]166 Calcium [Mass/Vol] 9.5 mg/dL Normal 8.9-10.3 [facility] Comment on above: Performed By: #### 1 558920528, 5072378572, 1768844689, 6933039, 96071661, 2516747990, 2310106381 ####[facility] (DEFAULT)[address] [place] [address]1794 Chloride [Moles/Vol] 102 mmol/L Normal 101-111 [facility] Comment on above: Performed By: #### 1 637420492, 8290474910, 2859568822, 6796480, 58298670, 7550213467, 8255409204 ####[facility] (DEFAULT)[address] [place] [address] 04659 CO2 [Moles/Vol] 27 mmol/L Normal 21-32 [facility] Comment on above: Performed By: #### 1 679418669, 9327612909, 0083271266, 4525414, 85513653, 4243269695, 8094922673 ####[facility] (DEFAULT)[address] [place] [address] 89236 Creatinine [Mass/Vol] 1.19 mg/dL Normal 0.60-1.30 [facility] Comment on above: Performed By: #### 1 594288186, 6348855693, 6764663871, 6387343, 32136330, 6726874473, 9957040510 ####[facility] (DEFAULT)[address] [place] [address]160 Globulin (S) [Mass/Vol] 4.6 g/dL High 1.5-4.3 [facility] Comment on above: Performed By: #### 1 058812886, 5753169359, 0926762101, 5121793, 63336531, 4528859455, 8026204184 ####[facility] (DEFAULT)[address] [place] [address] 10184 Glucose [Mass/Vol] 301.0 mg/dL High 74.0-118.0 [facility] Comment on above: Performed By: #### 1 430131456, 1985196824, 6310857535, 9170187, 82053149, 9546956478, 8401280379 ####[facility] (DEFAULT)[address] [place] [address] 07773 Osmolality 289 mOsm/L Invalid Interpretation Code [facility] Comment on above: Performed By: #### 1 223541625, 8642425050, 7390370915, 9931587, 60278442, 4476820825, 0742587853 ####[facility] (DEFAULT)[address] [place] [address] 64958 Potassium [Moles/Vol] 3.8 mmol/L Normal 3.6-5.1 [facility] Comment on above: Performed By: #### 1 324853415, 7077747425, 0311304800, 7018050, 60557460, 9506047133, 8423512841 ####[facility] (DEFAULT)[address] [place] [address] 83477 Protein [Mass/Vol] 9.0 g/dL High 6.5-8.1 [facility] Comment on above: Performed By: #### 1 785781743, 0820044726, 4239463836, 1977716, 68641951, 1016341275, 9394928023 ####[facility] (DEFAULT)[address] [place] [address] 92269 Sodium [Moles/Vol] 138.0 mmol/L Normal 136.0-144.0 [facility] Comment on above: Performed By: #### 1 248884362, 6529242249, 3556137816, 4646682, 10495719, 2106142065, 3255312412 ####[facility] (DEFAULT)[address] [place] [address] 54469 Urea nitrogen [Mass/Vol] 19 mg/dL Normal 8-26 [facility] Comment on above: Performed By: #### 1 547866960, 0612974325, 6729302567, 1792443, 97896429, 2024927910, 9310259579 ####[facility] (DEFAULT)[address] [place] [address] 77825 Urea nitrogen/Creatinine [Mass ratio] 15.9 mg/mg Normal 4.6-16.2 [facility] Comment on above: Performed By: #### 1 198707754, 1663029091, 9037902606, 2649390, 92645172, 1842528150, 8291643670 ####[facility] (DEFAULT)[address] [place] [address] Maxillofacial w/ Contrast on 07-24-2023 CT [...] maxilla sinus with an air-fluid level. The molder hand spaces, parotid glands and parapharyngeal spaces appear [...] MD 07/25/23 0:04 am Technologist: MONTSE Lion [facility] ED Note - Physicianon 2023 ED Note [...] not seen her physician, who is in [place], she is now living in for [place] because she had a break-up with her [...] is otherwise symmetric, no RPA PPA or BASKET FILLER, tympanic membrane canal pinna and mastoids are [...] Pharmacy: clindamycin (Order): 600 mg, IV Piggyback, Anchor Tacker ketorolac (Order): 30 mg, IV Push, Once [...] she follows up with her doctor in [place] until such time as she does develop relationship with a physician in this area. [place] is not that far away. Impression and Plan Diagnosis Facial swelling (ZBX95-SH R22.0, Discharge, Medical) Hyperglycemia (QKN12-RE R73.9, Discharge, Medical) Sinusitis, acute (ZKA62-ZD J01.90, Discharge, Medical) Plan Condition: Improved. Disposition: Discharged: time 07/25/2023 00:52:00. Prescriptions Patient was given the following educational materials: Hyperglycemia, Zqwp-ap-Vran, Diabetes Mellitus and Nutrition, Adult, Diabetes Mellitus and Nutrition, Adult, Hyperglycemia, Mnza-sx-Kzhc, Sinus Infection, Adult, Hdxn-mq-Gkus. Follow up with: Romeo Addison In 2 days 07/27/2023; [facility] In 2 days 07/26/2023 home you have a sinus infection; warm compresses take the antibiotic ibuprofen for discomfort reduce your smoking; recheck: [facility], 48 hours, walk in 9 am-7 pm you have a physician in [place]. Continue with that physician, until you locate a physician around he (more content not included)... Normal [facility] ED Note-Nursingon 07-24-2023 ED Note-Nursing private vehicle [...] imaging. oriented to call light. no distress. Normal [facility] Extra Greenon 07-24-2023 Tube Collected Yes Invalid Interpretation Code [facility] Comment on above: Performed By: #### 1 [id number], 8536336037, 9326082247, 8860069, 05060093, 4843213539, 6769912102 #### [facility] (DEFAULT) [address] [place] [address] POCT Glucose Levelon 024 Glucose [Mass/Vol] 318 mg/dL High 74-118 [facility] Comment on above: Result Comment: OPR_ ID=[email or web address],TGC FLAG = False,Meter:[id number] Structural Rigger:Alisa Morley Performed By: #### 4 [id number] #### [facility] (DEFAULT) [address] [place] [address]1872 XR Chest 2 Viewson XR Chest 2 [...] Hinkle MD 07/24/23 11:34 p Technologist: SUSAN [facility] ED Clinical Summaryon 2023 ED Clinical Summary [facility] Emergency Department [address] [place] [address] ED Clinical Summary PERSON INFORMATION Name: CHINMAY KNIGHT Age: 48 Years Sex: FEMALE : 1975 MRN: Acct#: Visit Reason: Foot pain; LT SWOLLEN AND BRUISED, PAINFUL Arrival: 07/21/2023 13:58:12 Discharge: 07/21/2023 15:30:00 LOS: 000 01:32 Check In: 07/21/2023 13:58:12 Checkout:07/21/2023 15:30:00 Address: [address] [facility] [address] PCP: Provider, None PROVIDER INFORMATION Provider Role Assigned Unassigned Thao Santana MD ED Provider 07/21/2023 14:01:58 Kristi RN, Chary Rodriguez ED Nurse 07/21/2023 14:40:44 VITALS INFORMATION Vital [...] Sprain Follow-Up: With: Address: When: Provider, None [address] [place] [address] Within 3 to 5 days DIAGNOSIS: 1:S/P foot surgery Patient Understands: Yes - Patient/family/caregi marcello verbalizes understanding of instructions given Comment: [facility] ED Patient Summaryon 024 ED Patient Summary [facility] Emergency Department [address] [place] [id number] PATIENT DISCHARGE INSTRUCTIONS Patient Information Name: CHINMAY KNIGHT Age: 48 Years Date of : 1975 Reason For Visit: Foot pain; LT SWOLLEN AND BRUISED, PAINFUL Arrival Time: 07/21/2023 13:58:12 Primary Care Physician: Provider, None Attending Physician: Thao Santana MD Comment: Visit Diagnosis: Diagnoses This Visit Foot pain (325390820) S/P foot surgery (Z98.890) The Pharmacy at [facility] is open Friday through Friday from [...] alcohol and/or drug addiction problems; contact the [facility] 07/10 Crisis Hotline -Text 9BTIB to [phone]. If you received any narcotics, sedation, or [...] legal documents With: Address: When: Provider, None [address] [place] [address] Within 3 to 5 days Medication Information: The exam and treatment you received today in the [facility] Emergency Department were for an urgent problem and are not intended as complete care. It is important for you to follow up with a doctor, nurse practitioner, or physician?s fleet assistant for ongoing care. If your symptoms become [...] so we can reach you if necessary. [facility] has provided you with a complete list of medications post discharge. Please inform your junior software engineer/provider of your visit and for further instruction [...] soon after an (more content not included)... Normal [facility] XR Foot Complete Lefton 05-0 XR Foot Complete Left EXAM: XR Foot [...] MD 07/21/23 3:01 pm Technologist: Travis DAVIS [facility] MR LUMBAR SPINE WO CONTon MR LUMBAR [...] Maciel MD on 05/27/2023 10:23 PM Normal 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 AMYLASEon 07-15-2022 Amylase [Catalytic activity/Vol] 23 U/L Critically low 25-115 [facility] Comment on above: Performed By: #### C MADM, LENO, LIPA, CMP ####[facility] [address] [place] [id number] Coates BNPon 07-15-2022 Natriuretic peptide B (Bld) [Mass/Vol] 19813.0 pg/mL Critically high <=900.0 [facility] Comment on above: Performed By: #### B BUSINESS PLANNING ANALYST ####[facility] [address] [place] [id number] Coates CARDIAC ISACC 3-6on 3 CK [Catalytic activity/Vol] 72 U/L Normal 26-192 [facility] [facility] Comment [facility]: Performed By: #### B MP #### [facility] [address] [address] [address] Marcell Coates CK.MB [Mass/Vol] 1.21 ng/mL Normal <=3.60 [facility] Comment on above: Performed By: #### B MP #### [facility] [address] [address] [address] Marcell Coates HSTROP 47.6 pg/mL Normal 4.0-51.3 [facility] Comment on above: Result Comment: CUT- OFF POINTS HAVE BEEN ESTABLISHED BASED ON THE FOURTH UNIVERSAL DEFINITIONS OF MYOCARDIAL INFARCTION. THE UPPER REFERENCE LIMIT (URL) OF TROPONIN, DEFINED THE 99TH PERCENTILE OF cTnI DISTRIBUTION IN A REFERENCE POPULATION, HAS BEEN CONFIRMED THE DECISION THRESHOLD FOR [facility] DIAGNOSIS. Performed By: #### B MP #### [facility] [address] [address] [address] Marcell Coates CARDIAC ISACC ADMITon 023 CK [Catalytic activity/Vol] 64 U/L Normal 26-192 [facility] Comment on above: Performed By: #### C LENO HILLMAN, LIPA, CMP ####[facility] [address] [address]Dr. Marcell Coates CK.MB [Mass/Vol] 1.33 ng/mL Normal <=3.60 [facility] Comment on above: Performed By: #### C MADM, LENO, LIPA, CMP ####[facility] [address] [address]Dr. Marcell Coates HSTROP 47.5 pg/mL Normal 4.0-51.3 [facility] Comment on above: Result Comment: CUT- OFF POINTS HAVE BEEN ESTABLISHED BASED ON THE FOURTH UNIVERSAL DEFINITIONS OF MYOCARDIAL INFARCTION. THE UPPER REFERENCE LIMIT (URL) OF TROPONIN, DEFINED THE 99TH PERCENTILE OF cTnI DISTRIBUTION IN A REFERENCE POPULATION, HAS BEEN CONFIRMED THE DECISION THRESHOLD FOR [facility] DIAGNOSIS. Performed By: #### C MADM, LENO, LIPA, CMP ####[facility] [address] [id number]. Marcell Coates CHASITY 44 ng/mL Normal 9-82 [facility] Comment on above: Performed By: #### C RAFY, LENO, DANIELLA, CMP ####[facility] [address] [id number]. Marcell Coates CBC AUTO DIFFon 07-15-2022 BASO # 0.1 103/ul Normal 0.0-0.1 [facility] Comment on above: Performed By: #### B MP #### [facility] [address] [address] [address] Marcell Coates Basophils/100 WBC (Bld) 1.0 % Normal 0.2-2.0 [facility] Comment on above: Performed By: #### B MP #### [facility] [address] [address] [address] Marcell Coates EO # 0.4 103/ul Normal 0.0-0.7 [facility] Comment on above: Performed By: #### B MP #### [facility] [address] [address] [address] Marcell Coates Eosinophils/100 WBC (Bld) 3.0 % Normal 0.9-7.0 [facility] Comment on above: Performed By: #### B MP #### [facility] [address] [address] [address] Marcell Coates Erythrocyte distribution width (RBC) [Ratio] 14.2 % Normal 11.0-15.0 [facility] Comment on above: Performed By: #### B MP #### [facility] [address] [address] [address] Marcell Caotes Hematocrit (Bld) [Volume fraction] 48.1 % Critically high 36.0-48.0 [facility] Comment on above: Performed By: #### B MP #### [facility] [address] [address] [address] Marcell Coates Hemoglobin (Bld) [Mass/Vol] 15.7 g/dL Normal 12.0-16.0 [facility] Comment on above: Performed By: #### B MP #### [facility] [address] [place] [address] Dr. Marcell Coates IG # 0.03 10e3/ul Normal 0.00-0.03 [facility] Comment on above: Performed By: #### B MP #### [facility] [address] [place] [address] Dr. Marcell Coates IG % 0.2 % Normal 0.0-0.5 [facility] Comment on above: Performed By: #### B MP #### [facility] [address] [place] [address] Dr. Marcell Coates LYMPH # 3.8 103/ul Normal 1.2-3.8 [facility] Comment on above: Performed By: #### B MP #### [facility] [address] [place] [address] Dr. Marcell Coates Lymphocytes/100 WBC (Bld) 30.5 % Normal 20.5-60.0 [facility] Comment on above: Performed By: #### B MP #### [facility] [address] [place] [address] Dr. Marcell Coates MANUAL DIFF REQ NO Normal [facility] Comment on above: Performed By: #### B MP #### [facility] [address] [place] [address] Dr. Marcell Coates MCH (RBC) [Entitic mass] 29.1 pg Normal 26.7-34.0 [facility] Comment on above: Performed By: #### B MP #### [facility] [address] [place] [address] Dr. Marcell Coates MCHC (RBC) [Mass/Vol] 32.6 g/dL Normal 29.9-35.2 [facility] Comment on above: Performed By: #### B MP #### [facility] [address] [place] [address] Dr. Marcell Coates MCV (RBC) [Entitic vol] 89.2 fL Normal 81.0-99.0 [facility] Comment on above: Performed By: #### B MP #### [facility] [address] [address] [address] Marcell Coates MONO # 0.9 103/ul Critically high 0.3-0.8 [facility] Comment on above: Performed By: #### B MP #### [facility] [address] [place] [address] Dr. Marcell Coates Monocytes/100 WBC (Bld) 6.9 % Normal 1.7-12.0 [facility] Comment on above: Performed By: #### B MP #### [facility] [address] [place] [address] Dr. Marcell Coates NEUT # 7.3 103/ul Critically high 1.4-6.5 [facility] Comment on above: Performed By: #### B MP #### [facility] [address] [place] [address] Dr. Marcell Coates Neutrophils/100 WBC (Bld) 58.4 % Normal 43.0-75.0 [facility] Comment on above: Performed By: #### B MP #### [facility] [address] [place] [address] Dr. Marcell Coates Platelet mean volume (Bld) [Entitic vol] 9.9 fL Normal 9.5-13.5 [facility] Comment on above: Performed By: #### B MP #### [facility] [address] [place] [address] Dr. Marcell Coates PLT 288 103/ul Normal 150-450 [facility] Comment on above: Performed By: #### B MP #### [facility] [address] [place] [address] Dr. Marcell Coates RBC 5.39 106/ul Normal 4.20-5.40 [facility] Comment on above: Performed By: #### B MP #### [facility] [address] [place] [address] Dr. Marcell Coates WBC 12.5 103/ul Critically high 4.0-11.0 [facility] Comment on above: Performed By: #### B MP #### [facility] [address] [place] [address] Dr. Marcell Coates CTA CHEST WO W CONon 05-01-2 023 CTA CHEST WO W CON EXAMINATION: [...] TRINITY ELLIS Date: 2022-07-15 02:50 Normal [facility] LACTATE/LACTIC ACIDon 2022 Lactate [Moles/Vol] 1.2 mmol/L Normal 0.4-2.0 [facility] Comment on above: Performed By: #### L IPA, LENO, CMP #### [facility] [address] [address] [address] Marcell Coates LIPASEon 07-15-2022 Lipase [Catalytic activity/Vol] 116.0 U/L Normal 73.0-393.0 [facility] Comment on above: Performed By: #### B MP #### [facility] [address] [address] [address] Marcell Coates PROF 14(COMP METB)on 023 Albumin [Mass/Vol] 3.5 g/dL Normal 3.4-5.0 [facility] Comment on above: Performed By: #### C MADM, LENO, LIPA, CMP ####[facility] [address] [address]Dr. Marcell Coates Albumin/Globulin [Mass ratio] 1.1 {ratio} Normal [facility] Comment on above: Performed By: #### C MADM, LENO, LIPA, CMP ####[facility] [address] [address]Dr. Marcell Coates ALP [Catalytic activity/Vol] 106 U/L Normal 46-116 [facility] Comment on above: Performed By: #### C MADM, LENO, LIPA, CMP ####[facility] [address] [address]Dr. Marcell Coates ALT [Catalytic activity/Vol] 31 U/L Normal 14-59 [facility] Comment on above: Performed By: #### C MADM, LENO, LIPA, CMP ####[facility] [address] [place], [place] [address]Dr. Marcell Coates Anion gap [Moles/Vol] 14.8 mmol/L Normal [facility] Comment on above: Performed By: #### C MADM, LENO, LIPA, CMP ####[facility] [address] [place], [place] [address]Dr. Marcell Coates AST [Catalytic activity/Vol] 30 U/L Normal 15-37 [facility] Comment on above: Performed By: #### C MADM, LENO, LIPA, CMP ####[facility] [address] [place], [place] [address]Dr. Marcell Coates Bilirubin [Mass/Vol] 0.4 mg/dL Normal 0.2-1.0 [facility] Comment on above: Performed By: #### C MADM, LENO, LIPA, CMP ####[facility] [address] [place], [place] [address]Dr. Marcell Coates Calcium [Mass/Vol] 8.8 mg/dL Normal 8.5-10.1 [facility] Comment on above: Performed By: #### C MADM, LENO, LIPA, CMP ####[facility] [address] [address]Dr. Marcell Coates Chloride [Moles/Vol] 106 mmol/L Normal 98-107 [facility] Comment on above: Performed By: #### C MADM, LENO, LIPA, CMP ####[facility] [address] [address]Dr. Marcell Coates CO2 [Moles/Vol] 26.6 mmol/L Normal 21.0-32.0 [facility] Comment on above: Performed By: #### C MADM, LENO, LIPA, CMP ####[facility] [address] [address]Dr. Marcell Coates Creatinine [Mass/Vol] 1.11 mg/dL Critically high 0.55-1.02 [facility] Comment on above: Performed By: #### C MADM, LENO, LIPA, CMP ####[facility] [address] [place], [place] [address]Dr. Marcell Coates EGFR-AF [facility] >60 Normal >=60 [facility] Comment on above: Performed By: #### C MADM, LENO, LIPA, CMP ####[facility] [address] [place], [place] [address]Dr. Marcell Coates EGFR-NON AF [facility] 52 mL/min/1.73m2 Critically low >=60 [facility] Comment on above: Performed By: #### C MADM, LENO, LIPA, CMP ####[facility] [address] [address]Dr. Marcell Coates Globulin (S) [Mass/Vol] 3.1 g/dL Normal [facility] Comment on above: Performed By: #### C MADM, LENO, LIPA, CMP ####[facility] [address] [address]Dr. Marcell Coates Glucose [Mass/Vol] 126 mg/dL Critically high 74-106 [facility] Comment on above: Performed By: #### C MADM, LENO, LIPA, CMP ####[facility] [address] [address]Dr. Marcell Coates Potassium [Moles/Vol] 3.4 mmol/L Critically low 3.5-5.1 [facility] Comment on above: Performed By: #### C LENO HILLMAN LIPA, CMP ####[facility] [address] [employer], [place] [address]Cu. Marcell Coates Protein [Mass/Vol] 6.6 g/dL Normal 6.4-8.2 [facility] Comment on above: Performed By: #### C LENO HILLMAN LIPA, CMP ####[facility] [address] [employer], [place] [address]Vg. Marcell Coates Sodium [Moles/Vol] 144 mmol/L Normal 136-145 [facility] Comment on above: Performed By: #### C LENO HILLMAN LIPA, CMP ####[facility] [address] [employer], [place] [address]Bo. Marcell Coates Urea nitrogen [Mass/Vol] 16.0 mg/dL Normal 7.0-18.0 [facility] Comment on above: Performed By: #### C LENO HILLMAN LIPA, CMP ####[facility] [address] [id number]. Marcell Coates Urea nitrogen/Creatinine [Mass ratio] 14.4 mg/mg Normal [facility] Comment on above: Performed By: #### C LENO HILLMAN, LIPA, CMP ####[facility] [address] [id number]. Marcell Coates XR ABD FLAT UP_PA Germaine [...] PEDRO HA Date: 2022-07-14 23:48 Normal [facility] US SINGLE QUAD RT UPPERon [...] JT GRADY Date: 2022-06-18 12:36 Normal [facility] AMYLASEon 06-14-2022 Amylase [Catalytic activity/Vol] 19 U/L Critically low 25-115 [facility] Comment on above: Performed By: #### L IPA, LENO, CMP #### [facility] [address] [address] [address] Marcell Coates CBC AUTO DIFFon 06-14-2022 BASO # 0.1 103/ul Normal 0.0-0.1 [facility] Comment on above: Performed By: #### B MP #### [facility] [address] [place], [place] [address] Dr. Marcell Coates Basophils/100 WBC (Bld) 0.6 % Normal 0.2-2.0 [facility] Comment on above: Performed By: #### B MP #### [facility] [address] [place] [address] Dr. Marcell Coates EO # 0.3 103/ul Normal 0.0-0.7 [facility] Comment on above: Performed By: #### B MP #### [facility] [address] [place] [address] Dr. Marcell Coates Eosinophils/100 WBC (Bld) 1.8 % Normal 0.9-7.0 [facility] Comment on above: Performed By: #### B MP #### [facility] [address] [place] [address] Dr. Marcell Coates Erythrocyte distribution width (RBC) [Ratio] 14.2 % Normal 11.0-15.0 [facility] Comment on above: Performed By: #### B MP #### [facility] [address] [place] [address] Dr. Marcell Coates Hematocrit (Bld) [Volume fraction] 44.9 % Normal 36.0-48.0 [facility] Comment on above: Performed By: #### B MP #### [facility] [address] [place] [address] Dr. Marcell Coates Hemoglobin (Bld) [Mass/Vol] 14.8 g/dL Normal 12.0-16.0 [facility] Comment on above: Performed By: #### B MP #### [facility] [address] [place] [address] Dr. Marcell Coates IG # 0.18 10e3/ul Critically high 0.00-0.03 [facility] Comment on above: Performed By: #### B MP #### [facility] [address] [place] [address] Dr. Marcell Coates IG % 1.3 % Critically high 0.0-0.5 [facility] Comment on above: Performed By: #### B MP #### [facility] [address] [place] [address] Dr. Marcell Coates LYMPH # 3.4 103/ul Normal 1.2-3.8 [facility] Comment on above: Performed By: #### B MP #### [facility] [address] [address] [address] Marcell Coates Lymphocytes/100 WBC (Bld) 24.4 % Normal 20.5-60.0 [facility] Comment on above: Performed By: #### B MP #### [facility] [address] [address] [address] Marcell Coates MANUAL DIFF REQ NO Normal [facility] Comment on above: Performed By: #### B MP #### [facility] [address] [place] [address] Dr. Marcell Coates MCH (RBC) [Entitic mass] 29.4 pg Normal 26.7-34.0 [facility] Comment on above: Performed By: #### B MP #### [facility] [address] [place] [address] Dr. Marcell Coates MCHC (RBC) [Mass/Vol] 33.0 g/dL Normal 29.9-35.2 [facility] Comment on above: Performed By: #### B MP #### [facility] [address] [place] [address] Dr. Marcell Coates MCV (RBC) [Entitic vol] 89.3 fL Normal 81.0-99.0 [facility] Comment on above: Performed By: #### B MP #### [facility] [address] [place] [address] Dr. Marcell Coates MONO # 1.1 103/ul Critically high 0.3-0.8 [facility] Comment on above: Performed By: #### B MP #### [facility] [address] [place] [address] Dr. Marcell Coates Monocytes/100 WBC (Bld) 8.1 % Normal 1.7-12.0 [facility] Comment on above: Performed By: #### B MP #### [facility] [address] [place] [address] Dr. Marcell Coates NEUT # 8.9 103/ul Critically high 1.4-6.5 [facility] Comment on above: Performed By: #### B MP #### [facility] [address] [place] [address] Dr. Marcell Coates Neutrophils/100 WBC (Bld) 63.8 % Normal 43.0-75.0 [facility] Comment on above: Performed By: #### B MP #### [facility] [address] [place] [address] Dr. Marcell Coates Platelet mean volume (Bld) [Entitic vol] 10.2 fL Normal 9.5-13.5 [facility] Comment on above: Performed By: #### B MP #### [facility] [address] [place] [address] Dr. Marcell Coates PLT 284 103/ul Normal 150-450 [facility] Comment on above: Performed By: #### B MP #### [facility] [address] [place] [address] Dr. Marcell Coates RBC 5.03 106/ul Normal 4.20-5.40 [facility] Comment on above: Performed By: #### B MP #### [facility] [address] [place] [address] Dr. Marcell Coates WBC 13.9 103/ul Critically high 4.0-11.0 [facility] Comment on above: Performed By: #### B MP #### [facility] [address] [place] [address] Dr. Marcell Coates LIPASEon 06-14-2022 Lipase [Catalytic activity/Vol] 81.0 U/L Normal 73.0-393.0 [facility] Comment on above: Performed By: #### L LENO STERN CMP #### [facility] [address] [place] [address] Dr. Marcell Coates PROF 14(COMP METB)on 023 Albumin [Mass/Vol] 3.5 g/dL Normal 3.4-5.0 [facility] Comment on above: Performed By: #### L LENO STERN, CMP #### [facility] [address] [place] [address] Dr. Marcell Cotaes Albumin/Globulin [Mass ratio] 1.3 {ratio} Normal [facility] Comment on above: Performed By: #### L IPA, LENO, CMP #### [facility] [address] [address] [address] Marcell Coates ALP [Catalytic activity/Vol] 121 U/L Critically high 46-116 [facility] Comment on above: Performed By: #### L IPA, LENO, CMP #### [facility] [address] [address] [address] Marcell Coates ALT [Catalytic activity/Vol] 32 U/L Normal 14-59 [facility] Comment on above: Performed By: #### L IPA, LENO, CMP #### [facility] [address] [address] [address] Marcell Coates Anion gap [Moles/Vol] 16.4 mmol/L Normal [facility] Comment on above: Performed By: #### L IPA, LENO, CMP #### [facility] [address] [address] [address] Marcell Coates AST [Catalytic activity/Vol] 31 U/L Normal 15-37 [facility] Comment on above: Performed By: #### L IPA LENO, CMP #### [facility] [address] [address] [address] Marcell Coates Bilirubin [Mass/Vol] 0.5 mg/dL Normal 0.2-1.0 [facility] Comment on above: Performed By: #### L IPA, LENO, CMP #### [facility] [address] [address] [address] Marcell Coates Calcium [Mass/Vol] 8.6 mg/dL Normal 8.5-10.1 [facility] Comment on above: Performed By: #### L IPA, LENO, CMP #### [facility] [address] [address] [address] Marcell Coates Chloride [Moles/Vol] 104 mmol/L Normal 98-107 [facility] Comment on above: Performed By: #### L IPA, LENO, CMP #### [facility] [address] [address] [address] Marcell Coates CO2 [Moles/Vol] 21.2 mmol/L Normal 21.0-32.0 [facility] Comment on above: Performed By: #### L IPA LENO, CMP #### [facility] [address] [address] [address] Marcell Coates Creatinine [Mass/Vol] 1.13 mg/dL Critically high 0.55-1.02 [facility] Comment on above: Performed By: #### L IPA LENO, CMP #### [facility] [address] [place] [address] Dr. Marcell Coates EGFR-AF [facility] >60 Normal >=60 [facility] Comment on above: Performed By: #### L IPA LENO, CMP #### [facility] [address] [place] [address] Dr. Marcell Coates EGFR-NON AF [facility] 51 mL/min/1.73m2 Critically low >=60 [facility] Comment on above: Performed By: #### L IPA LENO, CMP #### [facility] [address] [place] [address] Dr. Marcell Coates Globulin (S) [Mass/Vol] 2.6 g/dL Normal [facility] Comment on above: Performed By: #### L LEENA LENO, CMP #### [facility] [address] [place] [address] Dr. Marcell Coates Glucose [Mass/Vol] 139 mg/dL Critically high 74-106 [facility] Comment on above: Performed By: #### L LEENA LENO, CMP #### [facility] [address] [place] [address] Dr. Marcell Coates Potassium [Moles/Vol] 3.6 mmol/L Normal 3.5-5.1 [facility] Comment on above: Performed By: #### L IPA LENO, CMP #### [facility] [address] [place] [address] Dr. Marcell Coates Protein [Mass/Vol] 6.1 g/dL Critically low 6.4-8.2 [facility] Comment on above: Performed By: #### L IPA LENO, CMP #### [facility] [address] [place] [address] Dr. Marcell Coates Sodium [Moles/Vol] 138 mmol/L Normal 136-145 [facility] Comment on above: Performed By: #### L LENO STERN CMP #### [facility] [address] [address] [address] Marcell Coates Urea nitrogen [Mass/Vol] 18.0 mg/dL Normal 7.0-18.0 [facility] Comment on above: Performed By: #### L LENO STERN, CMP #### [facility] [address] [place] [address] Dr. Marcell Coates Urea nitrogen/Creatinine [Mass ratio] 15.9 mg/mg Normal [facility] Comment on above: Performed By: #### L LENO STERN CMP #### [facility] [address] [place] [address] Dr. Marcell Coates TROPONIN, HIGH SENSITIVITYon 06-14-2022 HSTROP 36.3 pg/mL Normal 4.0-51.3 [facility] Comment on above: Result Comment: CUT- OFF POINTS HAVE BEEN ESTABLISHED BASED ON THE FOURTH UNIVERSAL DEFINITIONS OF MYOCARDIAL INFARCTION. THE UPPER REFERENCE LIMIT (URL) OF TROPONIN, DEFINED THE 99TH PERCENTILE OF cTnI DISTRIBUTION IN A REFERENCE POPULATION, HAS BEEN CONFIRMED THE DECISION THRESHOLD FOR [facility]. Performed By: #### H STROPN ####[facility] [address] [address]Dr. Marecll Coates AMYLASEon 06-09-2022 Amylase [Catalytic activity/Vol] 22 U/L Critically low 25-115 [facility] Comment on above: Performed By: #### B MP #### [facility] [address] [place] [address] Dr. Marcell Coates CBC AUTO DIFFon 06-09-2022 BASO # 0.1 103/ul Normal 0.0-0.1 [facility] Comment on above: Performed By: #### C BC #### [facility] [address] [place] [address] Dr. Marcell Coates Basophils/100 WBC (Bld) 0.6 % Normal 0.2-2.0 [facility] Comment on above: Performed By: #### C BC #### [facility] [address] [address] [address] Marcell Coates EO # 0.5 103/ul Normal 0.0-0.7 [facility] Comment on above: Performed By: #### C BC #### [facility] [address] [place] [address] Dr. Marcell Coates Eosinophils/100 WBC (Bld) 4.0 % Normal 0.9-7.0 [facility] Comment on above: Performed By: #### C BC #### [facility] [address] [place] [address] Dr. Marcell Coates Erythrocyte distribution width (RBC) [Ratio] 13.9 % Normal 11.0-15.0 [facility] Comment on above: Performed By: #### C BC #### [facility] [address] [place] [address] Dr. Marcell Coates Hematocrit (Bld) [Volume fraction] 46.2 % Normal 36.0-48.0 [facility] Comment on above: Performed By: #### C BC #### [facility] [address] [place] [address] Dr. Marcell Coates Hemoglobin (Bld) [Mass/Vol] 15.2 g/dL Normal 12.0-16.0 [facility] Comment on above: Performed By: #### C BC #### [facility] [address] [place] [address] Dr. Marcell Coates IG # 0.02 10e3/ul Normal 0.00-0.03 [facility] Comment on above: Performed By: #### C BC #### [facility] [address] [place] [address] Dr. Marcell Coates IG % 0.2 % Normal 0.0-0.5 [facility] Comment on above: Performed By: #### C BC #### [facility] [address] [place] [address] Dr. Marcell Coates LYMPH # 3.8 103/ul Normal 1.2-3.8 [facility] Comment on above: Performed By: #### C BC #### [facility] [address] [place] [address] Dr. Marcell Coates Lymphocytes/100 WBC (Bld) 31.4 % Normal 20.5-60.0 [facility] Comment on above: Performed By: #### C BC #### [facility] [address] [place] [address] Dr. Marcell Coates MANUAL DIFF REQ NO Normal [facility] Comment on above: Performed By: #### C BC #### [facility] [address] [place] [address] Dr. Marcell Coates MCH (RBC) [Entitic mass] 29.6 pg Normal 26.7-34.0 [facility] Comment on above: Performed By: #### C BC #### [facility] [address] [place] [address] Dr. Marcell Coates MCHC (RBC) [Mass/Vol] 32.9 g/dL Normal 29.9-35.2 [facility] Comment on above: Performed By: #### C BC #### [facility] [address] [place] [address] Dr. Marcell Coates MCV (RBC) [Entitic vol] 90.1 fL Normal 81.0-99.0 [facility] Comment on above: Performed By: #### C BC #### [facility] [address] [place] [address] Dr. Marcell Coates MONO # 0.9 103/ul Critically high 0.3-0.8 [facility] Comment on above: Performed By: #### C BC #### [facility] [address] [place] [address] Dr. Marcell Coates Monocytes/100 WBC (Bld) 7.7 % Normal 1.7-12.0 [facility] Comment on above: Performed By: #### C BC #### [facility] [address] [place] [address] Dr. Marcell Coates NEUT # 6.7 103/ul Critically high 1.4-6.5 [facility] Comment on above: Performed By: #### C BC #### [facility] [address] [place] [address] Dr. Marcell Coates Neutrophils/100 WBC (Bld) 56.1 % Normal 43.0-75.0 [facility] Comment on above: Performed By: #### C BC #### [facility] [address] [place] [address] Dr. Marcell Coates Platelet mean volume (Bld) [Entitic vol] 9.6 fL Normal 9.5-13.5 [facility] Comment on above: Performed By: #### C BC #### [facility] [address] [place] [address] Dr. Marcell Coates PLT 297 103/ul Normal 150-450 [facility] Comment on above: Performed By: #### C BC #### [facility] [address] [place] [address] Dr. Marcell Coates RBC 5.13 106/ul Normal 4.20-5.40 [facility] Comment on above: Performed By: #### C BC #### [facility] [address] [place] [address] Dr. Marcell Coates WBC 11.9 103/ul Critically high 4.0-11.0 [facility] Comment on above: Performed By: #### C BC #### [facility] [address] [place] [address] ABD/PELVIS WO CONon [...] OSWALDO QUIROZ Date: 2022-06-09 01:12 Normal [facility] ER URINE PROFILEon 3 Bilirubin Ql (U) Negative Normal NEGATIVE [facility] Comment on above: Performed By: #### B MP #### [facility] [address] [place] [address] Dr. Marcell Coates Clarity (U) CLEAR Normal CLEAR [facility] Comment on above: Performed By: #### B MP #### [facility] [address] [place] [address] Dr. Marcell Coates Color (U) LT. YELLOW Normal YELLOW [facility] Comment on above: Performed By: #### B MP #### [facility] [address] [place] [address] Dr. Marcell ASHTON A micrscopic examination will be performed if indicated. Normal [facility] Comment on above: Performed By: #### B MP #### [facility] [address] [place] [address] Dr. Marcell Coates Glucose Ql (U) Negative Normal NEGATIVE [facility] Comment on above: Performed By: #### B MP #### [facility] [address] [place] [address] Dr. Marcell Coates Hemoglobin Ql (U) Negative Normal NEGATIVE [facility] Comment on above: Performed By: #### B MP #### [facility] [address] [place] [address] Dr. Marcell Coates Ketones Ql (U) Negative Normal NEGATIVE [facility] Comment on above: Performed By: #### B MP #### [facility] [address] [place] [address] Dr. Marcell Coates LEUKOCYTES Negative Normal NEGATIVE [facility] Comment on above: Performed By: #### B MP #### [facility] [address] [place] [address] Dr. Marcell Coates Nitrite Ql (U) Negative Normal NEGATIVE [facility] Comment on above: Performed By: #### B MP #### [facility] [address] [place] [address] Dr. Marcell Coates pH (U) 6.0 [pH] Normal 5-9 [facility] Comment on above: Performed By: #### B MP #### [facility] [address] [address] [address] Marcell Coates Protein (U) [Mass/Vol] 30 mg/dL Abnormal NEGAT CASEY/ TRACE [facility] Comment on above: Performed By: #### B MP #### [facility] [address] [place] [address] Dr. Marcell Coates SPEC GRAVITY <=1.005 Abnormal 1.005-<=1.02 5 [facility] Comment on above: Performed By: #### B MP #### [facility] [address] [place] [address] Dr. Marcell Coates UR MICRO IND NOT INDICATED Normal [facility] Comment on above: Performed By: #### B MP #### [facility] [address] [place] [address] Dr. Marcell Coates Urobilinogen Qn (U) 0.2 {Jl'U}/dL Normal 0.2 - 1. 0 [facility] Comment on above: Performed By: #### B MP #### [facility] [address] [place] [address] Dr. Marcell Coates LIPASEon 06-09-2022 Lipase [Catalytic activity/Vol] 82.0 U/L Normal 73.0-393.0 [facility] Comment on above: Performed By: #### B MP #### [facility] [address] [place] [address] Dr. Marcell Coates PROF 14(COMP METB)on 023 Albumin [Mass/Vol] 3.6 g/dL Normal 3.4-5.0 [facility] Comment on above: Performed By: #### B MP #### [facility] [address] [place] [address] Dr. Marcell Coates Albumin/Globulin [Mass ratio] 1.2 {ratio} Normal [facility] Comment on above: Performed By: #### B MP #### [facility] [address] [place] [address] Dr. Marcell Coates ALP [Catalytic activity/Vol] 92 U/L Normal 46-116 [facility] Comment on above: Performed By: #### B MP #### [facility] [address] [address] [address] Marcell Coates ALT [Catalytic activity/Vol] 30 U/L Normal 14-59 [facility] Comment on above: Performed By: #### B MP #### [facility] [address] [place] [address] Dr. Marcell Coates Anion gap [Moles/Vol] 12.0 mmol/L Normal [facility] Comment on above: Performed By: #### B MP #### [facility] [address] [place] [address] Dr. Marcell Coates AST [Catalytic activity/Vol] 25 U/L Normal 15-37 [facility] Comment on above: Performed By: #### B MP #### [facility] [address] [place] [address] Dr. Marcell Coates Bilirubin [Mass/Vol] 0.4 mg/dL Normal 0.2-1.0 [facility] Comment on above: Performed By: #### B MP #### [facility] [address] [place] [address] Dr. Marcell Coates Calcium [Mass/Vol] 8.7 mg/dL Normal 8.5-10.1 [facility] Comment on above: Performed By: #### B MP #### [facility] [address] [place] [address] Dr. Marcell Coates Chloride [Moles/Vol] 103 mmol/L Normal 98-107 [facility] Comment on above: Performed By: #### B MP #### [facility] [address] [place] [address] Dr. Marcell Coates CO2 [Moles/Vol] 24.5 mmol/L Normal 21.0-32.0 [facility] Comment on above: Performed By: #### B MP #### [facility] [address] [address] [address] Marcell Coates Creatinine [Mass/Vol] 1.04 mg/dL Critically high 0.55-1.02 [facility] Comment on above: Performed By: #### B MP #### [facility] [address] [address] [address] Marcell Coates EGFR-AF [facility] >60 Normal >=60 [facility] Comment on above: Performed By: #### B MP #### [facility] [address] [address] [address] Marcell Coates EGFR-NON AF [facility] 56 mL/min/1.73m2 Critically low >=60 [facility] Comment on above: Performed By: #### B MP #### [facility] [address] [place] [address] Dr. Marcell Coates Globulin (S) [Mass/Vol] 3.0 g/dL Normal [facility] Comment on above: Performed By: #### B MP #### [facility] [address] [place] [address] Dr. Marcell Coates Glucose [Mass/Vol] 109 mg/dL Critically high 74-106 [facility] Comment on above: Performed By: #### B MP #### [facility] [address] [place] [address] Dr. Marcell Coates Potassium [Moles/Vol] 3.5 mmol/L Normal 3.5-5.1 [facility] Comment on above: Performed By: #### B MP #### [facility] [address] [address] [address] Marcell Coates Protein [Mass/Vol] 6.6 g/dL Normal 6.4-8.2 [facility] Comment on above: Performed By: #### B MP #### [facility] [address] [place] [address] Dr. Marcell Coates Sodium [Moles/Vol] 136 mmol/L Normal 136-145 [facility] Comment on above: Performed By: #### B MP #### [facility] [address] [address] [address] Marcell Coates Urea nitrogen [Mass/Vol] 10.0 mg/dL Normal 7.0-18.0 [facility] Comment on above: Performed By: #### B MP #### [facility] [address] [address] [address] Marcell Coates Urea nitrogen/Creatinine [Mass ratio] 9.6 mg/mg Normal [facility] Comment on above: Performed By: #### B MP #### [facility] [address] [address] [address] Marcell Coates XR CHEST 1 Von [...] LIOR JIANG Date: 2022-05-11 03:02 Normal [facility] BNPon 04-22-2022 Natriuretic peptide B (Bld) [Mass/Vol] 9289.0 pg/mL Critically high <=450.0 [facility] Comment on above: Performed By: #### B BUSINESS PLANNING ANALYST, BMP #### [facility] [address] [address] [address] Marcell Coates CBC AUTO DIFFon 02-06-2023 BASO # 0.1 103/ul Normal 0.0-0.1 [facility] Comment on above: Performed By: #### L LENO STERN, CMP #### [facility] [address] [place] [address] Dr. Marcell Coates Basophils/100 WBC (Bld) 0.6 % Normal 0.2-2.0 [facility] Comment on above: Performed By: #### L LENO STERN, CMP #### [facility] [address] [place] [address] Dr. Marcell Coates EO # 0.4 103/ul Normal 0.0-0.7 [facility] Comment on above: Performed By: #### L LENO STERN, CMP #### [facility] [address] [place] [address] Dr. Marcell Coates Eosinophils/100 WBC (Bld) 2.9 % Normal 0.9-7.0 [facility] Comment on above: Performed By: #### L LENO STERN, CMP #### [facility] [address] [place] [address] Dr. Marcell Coates Erythrocyte distribution width (RBC) [Ratio] 14.5 % Normal 11.0-15.0 [facility] Comment on above: Performed By: #### L LENO STERN, CMP #### [facility] [address] [place] [address] Dr. Marcell Coates Hematocrit (Bld) [Volume fraction] 41.6 % Normal 36.0-48.0 [facility] Comment on above: Performed By: #### L LENO STERN, CMP #### [facility] [address] [place] [address] Dr. Marcell Coates Hemoglobin (Bld) [Mass/Vol] 13.1 g/dL Normal 12.0-16.0 [facility] Comment on above: Performed By: #### L LENO STERN, CMP #### [facility] [address] [place] [address] Dr. Marcell Coates IG # 0.05 10e3/ul Critically high 0.00-0.03 [facility] Comment on above: Performed By: #### L LENO STERN, CMP #### [facility] [address] [address] [address] Marcell Coates IG % 0.4 % Normal 0.0-0.5 [facility] Comment on above: Performed By: #### L LEENA LENO, CMP #### [facility] [address] [address] [address] Marcell Coates LYMPH # 3.1 103/ul Normal 1.2-3.8 [facility] Comment on above: Performed By: #### L LENO STERN, CMP #### [facility] [address] [place] [address] Dr. Marcell Coates Lymphocytes/100 WBC (Bld) 22.1 % Normal 20.5-60.0 [facility] Comment on above: Performed By: #### L LENO STERN, CMP #### [facility] [address] [place] [address] Dr. Marcell Coates MANUAL DIFF REQ NO Normal [facility] Comment on above: Performed By: #### L LENO STERN, CMP #### [facility] [address] [place] [address] Dr. Marcell Coates MCH (RBC) [Entitic mass] 29.8 pg Normal 26.7-34.0 [facility] Comment on above: Performed By: #### L LENO STERN, CMP #### [facility] [address] [place] [address] Dr. Marcell Coates MCHC (RBC) [Mass/Vol] 31.5 g/dL Normal 29.9-35.2 [facility] Comment on above: Performed By: #### L LENO STERN, CMP #### [facility] [address] [place] [address] Dr. Marcell Coates MCV (RBC) [Entitic vol] 94.5 fL Normal 81.0-99.0 [facility] Comment on above: Performed By: #### L LEENA LENO, CMP #### [facility] [address] [place] [address] Dr. Marcell Coates MONO # 0.9 103/ul Critically high 0.3-0.8 [facility] Comment on above: Performed By: #### L IPA LENO, CMP #### [facility] [address] [place] [address] Dr. Marcell Coates Monocytes/100 WBC (Bld) 6.1 % Normal 1.7-12.0 [facility] Comment on above: Performed By: #### L IPA LENO, CMP #### [facility] [address] [place] [address] Dr. Marcell Coates NEUT # 9.5 103/ul Critically high 1.4-6.5 [facility] Comment on above: Performed By: #### L IPA LENO, CMP #### [facility] [address] [place] [address] Dr. Marcell Coates Neutrophils/100 WBC (Bld) 67.9 % Normal 43.0-75.0 [facility] Comment on above: Performed By: #### L LENO STERN, CMP #### [facility] [address] [place] [address] Dr. Marcell Coates Platelet mean volume (Bld) [Entitic vol] 10.0 fL Normal 9.5-13.5 [facility] Comment on above: Performed By: #### L LENO STERN, CMP #### [facility] [address] [place] [address] Dr. Marcell Coates PLT 285 103/ul Normal 150-450 [facility] Comment on above: Performed By: #### L LEENA LENO, CMP #### [facility] [address] [place] [address] Dr. Marcell Coates RBC 4.40 106/ul Normal 4.20-5.40 [facility] Comment on above: Performed By: #### L IPA LENO, CMP #### [facility] [address] [place] [address] Dr. Marcell Coates WBC 13.9 103/ul Critically high 4.0-11.0 [facility] Comment on above: Performed By: #### L IPA LENO, CMP #### [facility] [address] [place] [address] Dr. Marcell Coates PROF CHEM 8 (BAS METB)on Anion gap [Moles/Vol] 15.0 mmol/L Normal [facility] Comment on above: Performed By: #### B BUSINESS PLANNING ANALYST, BMP #### [facility] [address] [place] [address] Dr. Marcell Coates Calcium [Mass/Vol] 9.1 mg/dL Normal 8.5-10.1 [facility] Comment on above: Performed By: #### B BUSINESS PLANNING ANALYST, BMP #### [facility] [address] [place] [address] Dr. Marcell Coates Chloride [Moles/Vol] 107 mmol/L Normal 98-107 [facility] Comment on above: Performed By: #### B BUSINESS PLANNING ANALYST, BMP #### [facility] [address] [place] [address] Dr. Marcell Coates CO2 [Moles/Vol] 23.4 mmol/L Normal 21.0-32.0 [facility] Comment on above: Performed By: #### B BUSINESS PLANNING ANALYST, BMP #### [facility] [address] [place] [address] Dr. Marcell Coates Creatinine [Mass/Vol] 1.00 mg/dL Normal 0.55-1.02 [facility] Comment on above: Performed By: #### B BUSINESS PLANNING ANALYST, BMP #### [facility] [address] [place] [address] Dr. Marcell Coates EGFR-AF [facility] >60 Normal >=60 [facility] Comment on above: Performed By: #### B BUSINESS PLANNING ANALYST, BMP #### [facility] [address] [place] [address] Dr. Marcell Coates EGFR-NON AF [facility] 59 mL/min/1.73m2 Critically low >=60 [facility] Comment on above: Performed By: #### B BUSINESS PLANNING ANALYST, BMP #### [facility] [address] [place] [address] Dr. Marcell Coates Glucose [Mass/Vol] 166 mg/dL Critically high 74-106 [facility] Comment on above: Performed By: #### B BUSINESS PLANNING ANALYST, BMP #### [facility] [address] [place] [address] Dr. Marcell Coates Potassium [Moles/Vol] 3.4 mmol/L Critically low 3.5-5.1 [facility] Comment on above: Performed By: #### B BUSINESS PLANNING ANALYST, BMP #### [facility] [address] [address] [address] Marcell Coates Sodium [Moles/Vol] 142 mmol/L Normal 136-145 [facility] Comment on above: Performed By: #### B BUSINESS PLANNING ANALYST, BMP #### [facility] [address] [address] [address] Marcell Coates Urea nitrogen [Mass/Vol] 21.0 mg/dL Critically high 7.0-18.0 [facility] Comment on above: Performed By: #### B BUSINESS PLANNING ANALYST, BMP #### [facility] [address] [address] [address] Marcell Coates Urea nitrogen/Creatinine [Mass ratio] 21.0 mg/mg Normal [facility] Comment on above: Performed By: #### B BUSINESS PLANNING ANALYST, BMP #### [facility] [address] [address] [address] Marcell Coates TROPONIN, HIGH SENSITIVITYon 04-22-2022 HSTROP 48.9 pg/mL Normal 4.0-51.3 [facility] Comment on above: Result Comment: CUT- OFF POINTS HAVE BEEN ESTABLISHED BASED ON THE FOURTH UNIVERSAL DEFINITIONS OF MYOCARDIAL INFARCTION. THE UPPER REFERENCE LIMIT (URL) OF TROPONIN, DEFINED THE 99TH PERCENTILE OF cTnI DISTRIBUTION IN A REFERENCE POPULATION, HAS BEEN CONFIRMED THE DECISION THRESHOLD FOR [facility] DIAGNOSIS. Performed By: #### H STROPN ####[facility] [address] [address]Dr. Marcell Coates XR CHEST 1 Von 04-22-2022 [...] LIZANDRO LATIF Date: 2022-04-22 19:45 Normal [facility] CARDIAC ISACC 3-6on 2 CK [Catalytic activity/Vol] 63 U/L Normal 26-192 [facility] Comment on above: Performed By: #### C MREP ####[facility] [address] [employer], [place] [address]Xi. Marcell Coates CK.MB [Mass/Vol] 1.16 ng/mL Normal <=3.60 [facility] Comment on above: Performed By: #### C MREP ####[facility] [address] [employer], [place] [address]Dn. Marcell Coates HSTROP 27.4 pg/mL Normal 4.0-51.3 [facility] Comment on above: Result Comment: CUT- OFF POINTS HAVE BEEN ESTABLISHED BASED ON THE FOURTH UNIVERSAL DEFINITIONS OF MYOCARDIAL INFARCTION. THE UPPER REFERENCE LIMIT (URL) OF TROPONIN, DEFINED THE 99TH PERCENTILE OF cTnI DISTRIBUTION IN A REFERENCE POPULATION, HAS BEEN CONFIRMED THE DECISION THRESHOLD FOR [facility] DIAGNOSIS. Performed By: #### C MREP ####[facility] [address] [id number]. Marcell Coates CARDIAC ISACC ADMITon 022 CK [Catalytic activity/Vol] 67 U/L Normal 26-192 [facility] Comment on above: Performed By: #### C MADM, BMP ####[facility] [address] [employer], [place] [address]Ez. Marcell Coates CK.MB [Mass/Vol] 0.84 ng/mL Normal <=3.60 [facility] Comment on above: Performed By: #### C MADM, BMP ####[facility] [address] [employer], [place] [address]So. Marcell Coates HSTROP 25.4 pg/mL Normal 4.0-51.3 [facility] Comment on above: Result Comment: CUT- OFF POINTS HAVE BEEN ESTABLISHED BASED ON THE FOURTH UNIVERSAL DEFINITIONS OF MYOCARDIAL INFARCTION. THE UPPER REFERENCE LIMIT (URL) OF TROPONIN, DEFINED THE 99TH PERCENTILE OF cTnI DISTRIBUTION IN A REFERENCE POPULATION, HAS BEEN CONFIRMED THE DECISION THRESHOLD FOR [facility] DIAGNOSIS. Performed By: #### C MADM, BMP ####[facility] [address] [id number]. Marcell Coates CHASITY 44 ng/mL Normal 9-82 [facility] Comment on above: Performed By: #### C MADM, BMP ####[facility] [address] [id number]. Marcell Coates CBC AUTO DIFFon 01-22-2022 BASO # 0.1 103/ul Normal 0.0-0.1 [facility] Comment on above: Performed By: #### L IPA LENO, CMP #### [facility] [address] [address] [address] Marcell Coates Basophils/100 WBC (Bld) 0.7 % Normal 0.2-2.0 [facility] Comment on above: Performed By: #### L IPA LENO, CMP #### [facility] [address] [place] [address] Dr. Marcell Coates EO # 0.5 103/ul Normal 0.0-0.7 [facility] Comment on above: Performed By: #### L IPA LENO, CMP #### [facility] [address] [place] [address] Dr. Marcell Coates Eosinophils/100 WBC (Bld) 4.4 % Normal 0.9-7.0 [facility] Comment on above: Performed By: #### L IPA LENO, CMP #### [facility] [address] [place] [address] Dr. Marcell Coates Erythrocyte distribution width (RBC) [Ratio] 13.3 % Normal 11.0-15.0 [facility] Comment on above: Performed By: #### L IPA LENO, CMP #### [facility] [address] [place] [address] Dr. Marcell Coates Hematocrit (Bld) [Volume fraction] 41.9 % Normal 36.0-48.0 [facility] Comment on above: Performed By: #### L IPA, LENO, CMP #### [facility] [address] [place] [address] Dr. Marcell Coates Hemoglobin (Bld) [Mass/Vol] 14.2 g/dL Normal 12.0-16.0 [facility] Comment on above: Performed By: #### L LENO STERN, CMP #### [facility] [address] [place] [address] Dr. Marcell Coates IG # 0.03 10e3/ul Normal 0.00-0.03 [facility] Comment on above: Performed By: #### L LENO STERN, CMP #### [facility] [address] [place] [address] Dr. Marcell Coates IG % 0.2 % Normal 0.0-0.5 [facility] Comment on above: Performed By: #### L LENO STERN, CMP #### [facility] [address] [place] [address] Dr. Marcell Coates LYMPH # 4.0 103/ul Critically high 1.2-3.8 [facility] Comment on above: Performed By: #### L LENO STERN, CMP #### [facility] [address] [place] [address] Dr. Marcell Coates Lymphocytes/100 WBC (Bld) 32.9 % Normal 20.5-60.0 [facility] Comment on above: Performed By: #### L LENO STERN, CMP #### [facility] [address] [place] [address] Dr. Marcell Coates MANUAL DIFF REQ NO Normal [facility] Comment on above: Performed By: #### L LENO STERN, CMP #### [facility] [address] [place] [address] Dr. Marcell Coates MCH (RBC) [Entitic mass] 30.3 pg Normal 26.7-34.0 [facility] Comment on above: Performed By: #### L LENO STERN, CMP #### [facility] [address] [place] [address] Dr. Marcell Coates MCHC (RBC) [Mass/Vol] 33.9 g/dL Normal 29.9-35.2 [facility] Comment on above: Performed By: #### L LENO STERN, CMP #### [facility] [address] [place] [address] Dr. Marcell Coates MCV (RBC) [Entitic vol] 89.5 fL Normal 81.0-99.0 [facility] Comment on above: Performed By: #### L IPA LENO, CMP #### [facility] [address] [place] [address] Dr. Marcell Coates MONO # 0.9 103/ul Critically high 0.3-0.8 [facility] Comment on above: Performed By: #### L IPA LENO, CMP #### [facility] [address] [place] [address] Dr. Marcell Coates Monocytes/100 WBC (Bld) 7.3 % Normal 1.7-12.0 [facility] Comment on above: Performed By: #### L IPA LENO, CMP #### [facility] [address] [place] [address] Dr. Marcell Coates NEUT # 6.6 103/ul Critically high 1.4-6.5 [facility] Comment on above: Performed By: #### L IPA LENO, CMP #### [facility] [address] [place] [address] Dr. Marcell Coates Neutrophils/100 WBC (Bld) 54.5 % Normal 43.0-75.0 [facility] Comment on above: Performed By: #### L IPA LENO, CMP #### [facility] [address] [place] [address] Dr. Marcell Coates Platelet mean volume (Bld) [Entitic vol] 10.0 fL Normal 9.5-13.5 [facility] Comment on above: Performed By: #### L IPA LENO, CMP #### [facility] [address] [place] [address] Dr. Marcell Coates PLT 250 103/ul Normal 150-450 [facility] Comment on above: Performed By: #### L IPA LENO, CMP #### [facility] [address] [place] [address] Dr. Marcell Coates RBC 4.68 106/ul Normal 4.20-5.40 [facility] Comment on above: Performed By: #### L LENO STERN, CMP #### [facility] [address] [address] [address] Marcell Coates WBC 12.1 103/ul Critically high 4.0-11.0 [facility] Comment on above: Performed By: #### L LENO STERN, CMP #### [facility] [address] HEAD WO CONon [...] HAYLEE KILPATRICK Date: 2022-01-22 01:46 Normal [facility] PROF CHEM 8 (BAS METB)on Anion gap [Moles/Vol] 13.4 mmol/L Normal [facility] Comment on above: Performed By: #### C RAFY BMP ####[facility] [address] [address]DrSherrie Coates Calcium [Mass/Vol] 9.6 mg/dL Normal 8.5-10.1 [facility] Comment on above: Performed By: #### C RAFY BMP ####[facility] [address] [address]DrSherrie Coates Chloride [Moles/Vol] 103 mmol/L Normal 98-107 [facility] Comment on above: Performed By: #### C RAFY, BMP ####[facility] [address] [address]DrSherrie Coates CO2 [Moles/Vol] 25.4 mmol/L Normal 21.0-32.0 [facility] Comment on above: Performed By: #### Coleen HILLMAN, BMP ####[facility] [address] [address]Dr. Marcell Coates Creatinine [Mass/Vol] 0.97 mg/dL Normal 0.55-1.02 [facility] Comment on above: Performed By: #### Coleen HILLMAN, BMP ####[facility] [address] [id number]. Marcell Coates EGFR-AF [facility] >60 Normal >=60 [facility] Comment on above: Performed By: #### Coleen HILLMAN, BMP ####[facility] [address] [address]Dr. Marcell Coates EGFR-NON AF [facility] >60 Normal >=60 [facility] Comment on above: Performed By: #### Coleen HILLMAN, BMP ####[facility] [address] [address]Dr. Marcell Coates Glucose [Mass/Vol] 146 mg/dL Critically high 74-106 [facility] Comment on above: Performed By: #### Coleen HILLMAN, BMP ####[facility] [address] [address]Dr. Marcell Coates Potassium [Moles/Vol] 3.8 mmol/L Normal 3.5-5.1 [facility] Comment on above: Performed By: #### Coleen HILLMAN, BMP ####[facility] [address] [address]Dr. Marcell Coates Sodium [Moles/Vol] 138 mmol/L Normal 136-145 [facility] Comment on above: Performed By: #### Coleen HILLMAN, BMP ####[facility] [address] [address]Dr. Marcell Coates Urea nitrogen [Mass/Vol] 19.0 mg/dL Critically high 7.0-18.0 [facility] Comment on above: Performed By: #### Coleen HILLMAN, BMP ####[facility] [address] [address]Dr. Marcell Coates Urea nitrogen/Creatinine [Mass ratio] 19.6 mg/mg Normal [facility] Comment on above: Performed By: #### C RAFY [facility] ####[facility] [address] [id number]. Marcell Coates XR CHEST 1 Von 01-22-2022 [...] Minal HARRIS Date: 2022-01-22 01:40 Normal [facility] XR SHOULDER LT 2V or [...] Minal HARRIS Date: 2022-01-22 04:36 Normal [facility] CBC AUTO DIFFon 12-22-2021 BASO # 0.1 103/ul Normal 0.0-0.1 [facility] Comment on above: Performed By: #### C BC ####[facility] [address] [address]DrSherrie Marcell Coates Basophils/100 WBC (Bld) 0.6 % Normal 0.2-2.0 [facility] Comment on above: Performed By: #### C BC ####[facility] Bec[address] [phone]. Ansilvio Coates EO # 0.6 103/ul Normal 0.0-0.7 [facility] Comment on above: Performed By: #### C BC ####[facility] [address] [address]Dr. Marcell Coates Eosinophils/100 WBC (Bld) 4.8 % Normal 0.9-7.0 [facility] Comment on above: Performed By: #### C BC ####[facility] T[address] [place], [place] [address]Dr. Marcell Coates Erythrocyte distribution width (RBC) [Ratio] 13.5 % Normal 11.0-15.0 [facility] Comment on above: Performed By: #### C BC ####[facility] Nakkaoionl[address] [place], [place] [address]Dr. Marcell Coates Hematocrit (Bld) [Volume fraction] 43.7 % Normal 36.0-48.0 [facility] Comment on above: Performed By: #### C BC ####[facility] Ltjgynymcl[address] [place], [place] [address]Dr. Marcell Coates Hemoglobin (Bld) [Mass/Vol] 14.4 g/dL Normal 12.0-16.0 [facility] Comment on above: Performed By: #### C BC ####[facility] Idvyxaixzw[address] [place], [place] [address]Dr. Marcell Coates IG # 0.04 10e3/ul Critically high 0.00-0.03 [facility] Comment on above: Performed By: #### C BC ####[facility] Iebl[address]ffm[address] [place], [place] [address]Dr. Marcell Coates IG % 0.3 % Normal 0.0-0.5 [facility] Comment on above: Performed By: #### C BC ####[facility] [address]mgjvaqt[address] [place], [place] [address]Dr. Marcell Coates LYMPH # 3.2 103/ul Normal 1.2-3.8 [facility] Comment on above: Performed By: #### C BC ####[facility] G[address]qz[address] [place], [place] [address]Dr. Marcell Jaxon Lymphocytes/100 WBC (Bld) 24.6 % Normal 20.5-60.0 [facility] Comment on above: Performed By: #### C BC ####[facility] [address] [address]Dr. Marcell Coates MANUAL DIFF REQ NO Normal [facility] Comment on above: Performed By: #### C BC ####[facility] [address] [phone]. Marcell Coates MCH (RBC) [Entitic mass] 29.9 pg Normal 26.7-34.0 [facility] Comment on above: Performed By: #### C BC ####[facility] [address] [address]Dr. Marcell Coates MCHC (RBC) [Mass/Vol] 33.0 g/dL Normal 29.9-35.2 [facility] Comment on above: Performed By: #### C BC ####[facility] Reoteswpij[address] [place], [place] [address]Dr. Marcell Coates MCV (RBC) [Entitic vol] 90.9 fL Normal 81.0-99.0 [facility] Comment on above: Performed By: #### C BC ####[facility] Ftowocstpj[address] [place], [place] [address]Dr. Marcell Coates MONO # 1.2 103/ul Critically high 0.3-0.8 [facility] Comment on above: Performed By: #### C BC ####[facility] Inw[address]rbay[address] [place], [place] [address]Dr. Marcell Coates Monocytes/100 WBC (Bld) 9.1 % Normal 1.7-12.0 [facility] Comment on above: Performed By: #### C BC ####[facility] [address]mzu[address] [place], [place] [address]DrSherrie Coates NEUT # 7.9 103/ul Critically high 1.4-6.5 [facility] Comment on above: Performed By: #### C BC ####[facility] Qlfjwghlyl[address] [place], [place] [address]DrSherrie Coates Neutrophils/100 WBC (Bld) 60.6 % Normal 43.0-75.0 [facility] Comment on above: Performed By: #### C BC ####[facility] [address] [phone]. Marcell Coates Platelet mean volume (Bld) [Entitic vol] 10.2 fL Normal 9.5-13.5 [facility] Comment on above: Performed By: #### C BC ####[facility] [address] [employer], [place] [address]Za. Marcell Coates PLT 284 103/ul Normal 150-450 [facility] Comment on above: Performed By: #### C BC ####[facility] [address] [phone]. Marcell Coates RBC 4.81 106/ul Normal 4.20-5.40 [facility] Comment on above: Performed By: #### C BC ####[facility] [address] [phone]. Marcell Coates WBC 13.0 103/ul Critically high 4.0-11.0 [facility] Comment on above: Performed By: #### C BC ####[facility] [address] [phone]. Marcell Coates CTA CHEST WO W CONon [...] LIOR JIANG Date: 2021-12-22 03:52 Normal [facility] Covid-19 PCR (CVDTB)on SARS-CoV-2 (COVID-19) RNA RUSSELL+probe Ql (Unsp spec) Not detected Normal NOT DETECTED [facility] Comment on above: Result Comment: [...] for this test is supported by the [employer] of Health and Human Service's declaration that [...] By: #### L LENO STERN, CMP #### [facility] [address] [place] [address] Dr. Marcell Coates INFLUENZA A AND B AGon 12-22 INFLUENZA A AG Negative Normal NEGATIVE SEE COMMENT [facility] Comment on above: Performed By: #### I NFLUAB ####[facility] [address] [address]Dr. Marcell Coates INFLUENZA B AG Negative Normal NEGATIVE SEE COMMENT [facility] Comment on above: Performed By: #### I NFLUAB ####[facility] [address] [address]Dr. Marcell Coates INFLUPOSH SEE BELOW Normal [facility] Comment on above: Result Comment: NOTE : Live attenuated influenzae vaccine viruses can cause a positive result for a rapid influenza diagnostic test if administered up to 7 days prior to rapid testing. Performed By: #### I NFLUAB ####[facility] [address] [address]Dr. Marcell Coates INFLUPOSHB SEE BELOW Normal [facility] Comment on above: Result Comment: NOTE : Live attenuated influenzae vaccine viruses can cause a positive result for a rapid influenza diagnostic test if administered up to 7 days prior to rapid testing. Performed By: #### I NFLUAB ####[facility] [address] [place], [place] [address]DrSherrie Coates INTERNAL CONTROLS Within Normal Limits Normal Wi thin Normal Limits [facility] Comment on above: Performed By: #### I NFLUAB ####[facility] [address] [place], [place] [address]Dr. Marcell Coates PROF CHEM 8 (BAS METB)on Anion gap [Moles/Vol] 14.3 mmol/L Normal [facility] Comment on above: Performed By: #### B MP #### [facility] [address] [place] [address] Dr. Marcell Coates Calcium [Mass/Vol] 9.0 mg/dL Normal 8.5-10.1 [facility] Comment on above: Performed By: #### B MP #### [facility] [address] [place] [address] Dr. Marcell Coates Chloride [Moles/Vol] 105 mmol/L Normal 98-107 [facility] Comment on above: Performed By: #### B MP #### [facility] [address] [place] [address] Dr. Marcell Coates CO2 [Moles/Vol] 24.6 mmol/L Normal 21.0-32.0 [facility] Comment on above: Performed By: #### B MP #### [facility] [address] [address] [address] Marcell Coates Creatinine [Mass/Vol] 1.19 mg/dL Critically high 0.55-1.02 [facility] Comment on above: Performed By: #### B MP #### [facility] [address] [address] [address] Marcell Coates EGFR-AF [facility] 59 mL/min/1.73m2 Critically low >=60 [facility] Comment on above: Performed By: #### B MP #### [facility] [address] [address] [address] Marcell Coates EGFR-NON AF [facility] 48 mL/min/1.73m2 Critically low >=60 [facility] Comment on above: Performed By: #### B MP #### [facility] [address] [address] [address] Marcell Coates Glucose [Mass/Vol] 124 mg/dL Critically high 74-106 [facility] Comment on above: Performed By: #### B MP #### [facility] [address] [address] [address] Marcell Coates Potassium [Moles/Vol] 3.9 mmol/L Normal 3.5-5.1 [facility] Comment on above: Performed By: #### B MP #### [facility] [address] [address] [address] Marcell Coates Sodium [Moles/Vol] 140 mmol/L Normal 136-145 [facility] Comment on above: Performed By: #### B MP #### [facility] [address] [address] [address] Marcell Coates Urea nitrogen [Mass/Vol] 18.0 mg/dL Normal 7.0-18.0 [facility] Comment on above: Performed By: #### B MP #### [facility] [address] [address] [address] Marcell Coates Urea nitrogen/Creatinine [Mass ratio] 15.1 mg/mg Normal [facility] Comment on above: Performed By: #### B MP #### [facility] [id number] Marcell Coates XR CHEST 1 Von [...] LIOR JIANG Date: 2021-12-22 01:41 Normal [facility] CBC AUTO DIFFon 11-07-2021 BASO # 0.1 103/ul Normal 0.0-0.1 [facility] Comment on above: Performed By: #### C BC ####[facility] [address] [phone] Coates Basophils/100 WBC (Bld) 1.0 % Normal 0.2-2.0 [facility] Comment on above: Performed By: #### C BC ####[facility] [address] [phone]. Marcell Coates EO # 0.4 103/ul Normal 0.0-0.7 [facility] Comment on above: Performed By: #### C BC ####[facility] [address] [employer], [place] [address]TiSherrie Coates Eosinophils/100 WBC (Bld) 3.7 % Normal 0.9-7.0 [facility] Comment on above: Performed By: #### C BC ####[facility] [address] [phone] Coates Erythrocyte distribution width (RBC) [Ratio] 13.8 % Normal 11.0-15.0 [facility] Comment on above: Performed By: #### C BC ####[facility] [address] [address]Dr. Ansilvio Jaxon Hematocrit (Bld) [Volume fraction] 45.2 % Normal 36.0-48.0 [facility] Comment on above: Performed By: #### C BC ####[facility] [address] [address]Dr. Marcell Coates Hemoglobin (Bld) [Mass/Vol] 15.2 g/dL Normal 12.0-16.0 [facility] Comment on above: Performed By: #### C BC ####[facility] [address] [place], [place] [address]Dr. Marcell Coates IG # 0.03 10e3/ul Normal 0.00-0.03 [facility] Comment on above: Performed By: #### C BC ####[facility] [address]rrbrf[address] [place], [place] [address]Dr. Marcell Coates IG % 0.3 % Normal 0.0-0.5 [facility] Comment on above: Performed By: #### C BC ####[facility] G[address]oznaeia[address] [place], [place] [address]DrSherrie Coates LYMPH # 4.0 103/ul Critically high 1.2-3.8 [facility] Comment on above: Performed By: #### C BC ####[facility] [address] [place], [place] [address]Dr. Marcell Coates Lymphocytes/100 WBC (Bld) 34.8 % Normal 20.5-60.0 [facility] Comment on above: Performed By: #### C BC ####[facility] E[address] [place], [place] [address]DrSherrie Coates MANUAL DIFF REQ NO Normal [facility] Comment on above: Performed By: #### C BC ####[facility] [address] [place], [place] [address]DrSherrie Coates MCH (RBC) [Entitic mass] 30.3 pg Normal 26.7-34.0 [facility] Comment on above: Performed By: #### C BC ####[facility] [address] [phone]. Marcell Jaxon MCHC (RBC) [Mass/Vol] 33.6 g/dL Normal 29.9-35.2 [facility] Comment on above: Performed By: #### C BC ####[facility] [address]adsgnq94[address] [place] [phone]. Marcell Coates MCV (RBC) [Entitic vol] 90.2 fL Normal 81.0-99.0 [facility] Comment on above: Performed By: #### C BC ####[facility] [address]uz[address]jqj[address] [place] [phone]. Marcell Coates MONO # 1.0 103/ul Critically high 0.3-0.8 [facility] Comment on above: Performed By: #### C BC ####[facility] [address] [address]Dr. Marcell Coates Monocytes/100 WBC (Bld) 8.7 % Normal 1.7-12.0 [facility] Comment on above: Performed By: #### C BC ####[facility] [address]xlnig[address] [place], [place] [address]Dr. Marcell Coates NEUT # 5.9 103/ul Normal 1.4-6.5 [facility] Comment on above: Performed By: #### C BC ####[facility] [address] [place], [place] [address]Dr. Marcell Coates Neutrophils/100 WBC (Bld) 51.5 % Normal 43.0-75.0 [facility] Comment on above: Performed By: #### C BC ####[facility] [address] [place], [place] [address]DrSherrie Coates Platelet mean volume (Bld) [Entitic vol] 9.7 fL Normal 9.5-13.5 [facility] Comment on above: Performed By: #### C BC ####[facility] [address] [place], [place] [address]Dr. Marcell Coates PLT 326 103/ul Normal 150-450 [facility] Comment on above: Performed By: #### C BC ####[facility] [address]pf[address]34[address] [employer], [place] [address]Bg. Marcell Coates RBC 5.01 106/ul Normal 4.20-5.40 [facility] Comment on above: Performed By: #### C BC ####[facility] [address]ia[address] [employer], [place] [address]Cq. Marcell Coates WBC 11.4 103/ul Critically high 4.0-11.0 [facility] Comment on above: Performed By: #### C BC ####[facility] Jen[address]beu[address] [employer], [place] [address]Oq. Mar[address] Co[address] CT HEAD WO CONon 11-07-2021 [...] CELINE KO Date: 2021-11-06 23:14 Normal [facility] PROF 14(COMP METB)on 022 Albumin [Mass/Vol] 4.1 g/dL Normal 3.4-5.0 [facility] Comment on above: Performed By: #### C MP ####[facility] [address]wf[address] [employer], [place] [address]Ab. Marcell Coates Albumin/Globulin [Mass ratio] 1.1 {ratio} Normal [facility] Comment on above: Performed By: #### C MP ####[facility] [address] [address]Dr. Marcell Coates ALP [Catalytic activity/Vol] 85 U/L Normal 46-116 [facility] Comment on above: Performed By: #### C MP ####[facility] [address]wo[address] [address]Dr. Marcell Jaxon ALT [Catalytic activity/Vol] 21 U/L Normal 14-59 [facility] Comment on above: Performed By: #### C MP ####[facility] [address] [address]Dr. Marcell Coates Anion gap [Moles/Vol] 14.7 mmol/L Normal [facility] Comment on above: Performed By: #### C MP ####[facility] [address] [place], [place] [address]Dr. Marcell Jaxon AST [Catalytic activity/Vol] 18 U/L Normal 15-37 [facility] Comment on above: Performed By: #### C MP ####[facility] [address]ijkupul[address] [place], [place] [address]Dr. Marcell Jaxon Bilirubin [Mass/Vol] 0.3 mg/dL Normal 0.2-1.0 [facility] Comment on above: Performed By: #### C MP ####[facility] [address]rtszcw[address] [place], [place] [address]Dr. Ansilvio Jaxon Calcium [Mass/Vol] 9.3 mg/dL Normal 8.5-10.1 [facility] Comment on above: Performed By: #### C MP ####[facility] [address] [address]Dr. Marcell Coates Chloride [Moles/Vol] 101 mmol/L Normal 98-107 [facility] Comment on above: Performed By: #### C MP ####[facility] [address]ne[address] [address]Dr. Marcell Coates CO2 [Moles/Vol] 22.6 mmol/L Normal 21.0-32.0 [facility] Comment on above: Performed By: #### C MP ####[facility] [address] [phone]. Marcell Coates Creatinine [Mass/Vol] 1.25 mg/dL Critically high 0.55-1.02 [facility] Comment on above: Performed By: #### C MP ####[facility] [address]fezen[address] [phone]. Marcell Coates EGFR-AF [facility] 55 mL/min/1.73m2 Critically low >=60 [facility] Comment on above: Performed By: #### C MP ####[facility] [address]cgtfiuc[address] [phone]. Marcell Jaxon EGFR-NON AF [facility] 46 mL/min/1.73m2 Critically low >=60 [facility] Comment on above: Performed By: #### C MP ####[facility] [address] [phone]. Marcell Jaxon Globulin (S) [Mass/Vol] 3.6 g/dL Normal [facility] Comment on above: Performed By: #### C MP ####[facility] Wmqcomwpjw[address] [phone]. Marcell Jaxon Glucose [Mass/Vol] 107 mg/dL Critically high 74-106 T [facility] Comment on above: Performed By: #### C MP ####[facility] Lgszsuqgwc6751 [place] [id number]. Marcell Jaxon Potassium [Moles/Vol] 3.3 mmol/L Critically low 3.5-5.1 [facility] Comment on above: Performed By: #### C MP ####[facility] Ucygzmherg48[address] [place] [id number]. Marcell Jaxon Protein [Mass/Vol] 7.7 g/dL Normal 6.4-8.2 [facility] Comment on above: Performed By: #### C MP ####[facility] Prekpoudkc1228 [place] [id number]. Ansilvio Coates Sodium [Moles/Vol] 135 mmol/L Critically low 136-145 Th [facility] Comment on above: Performed By: #### C MP ####[facility] [address]wnfiojgnv[address] [place] [address]Dr. Marcell Coates Urea nitrogen [Mass/Vol] 20.0 mg/dL Critically high 7.0-18.0 [facility] Comment on above: Performed By: #### C MP ####[facility] Ccdubwexgm38[address] [place] [address]Dr. Marcell Coates Urea nitrogen/Creatinine [Mass ratio] 16.0 mg/mg Normal [facility] Comment on above: Performed By: #### C MP ####[facility] [address]dtjy[address] [place] [address]Dr. Marcell Coates CBC AUTO DIFFon 09-14-2021 BASO # 0.0 103/ul Normal 0.0-0.1 [facility] Comment on above: Performed By: #### L LENO STERN, CMP #### [facility] [address] [place] [address] [address] Marcell Coates Basophils/100 WBC (Bld) 0.1 % Critically low 0.2-2.0 [facility] Comment on above: Performed By: #### L LENO STERN, CMP #### [facility] [address] [place] [address] Dr. Marcell Coates EO # 0.0 103/ul Normal 0.0-0.7 [facility] Comment on above: Performed By: #### L LENO STERN, CMP #### [facility] [address] [place] [address] [address] Marcell Coates Eosinophils/100 WBC (Bld) 0.0 % Critically low 0.9-7.0 [facility] Comment on above: Performed By: #### L LENO STERN, CMP #### [facility] [address] [place] [address] Dr. Marcell Coates Erythrocyte distribution width (RBC) [Ratio] 12.8 % Normal 11.0-15.0 [facility] Comment on above: Performed By: #### L LENO STERN, CMP #### [facility] [address] [place] [address] Dr. Marcell Coates Hematocrit (Bld) [Volume fraction] 40.8 % Normal 36.0-48.0 [facility] Comment on above: Performed By: #### L LENO STERN, CMP #### [facility] [address] [place] [address] Dr. Marcell Coates Hemoglobin (Bld) [Mass/Vol] 13.2 g/dL Normal 12.0-16.0 [facility] Comment on above: Performed By: #### L LENO STERN, CMP #### [facility] [address] [place] [address] Dr. Marcell Coates IG # 0.07 10e3/ul Critically high 0.00-0.03 [facility] Comment on above: Performed By: #### L LENO STERN, CMP #### [facility] [address] [place] [address] Dr. Marcell Coates IG % 0.6 % Critically high 0.0-0.5 [facility] Comment on above: Performed By: #### L LENO STERN, CMP #### [facility] [address] [place] [address] Dr. Marcell Coates LYMPH # 1.6 103/ul Normal 1.2-3.8 [facility] Comment on above: Performed By: #### L LENO STERN, CMP #### [facility] [address] [place] [address] Dr. Marcell Coates Lymphocytes/100 WBC (Bld) 14.3 % Critically low 20.5-60.0 [facility] Comment on above: Performed By: #### L LENO STERN, CMP #### [facility] [address] [place] [address] Dr. Marcell Coates MANUAL DIFF REQ NO Normal [facility] Comment on above: Performed By: #### L LENO STERN, CMP #### [facility] [address] [place] [address] Dr. Marcell Coates MCH (RBC) [Entitic mass] 29.8 pg Normal 26.7-34.0 [facility] Comment on above: Performed By: #### L LENO STERN, CMP #### [facility] [address] [place] [address] [address] Marcell Coates MCHC (RBC) [Mass/Vol] 32.4 g/dL Normal 29.9-35.2 [facility] Comment on above: Performed By: #### L IPA, LENO, CMP #### [facility] [address] [place] [address] Dr. Marcell Coates MCV (RBC) [Entitic vol] 92.1 fL Normal 81.0-99.0 [facility] Comment on above: Performed By: #### L IPA, LENO, CMP #### [facility] [address] [place] [address] Dr. Marcell Coates MONO # 0.3 103/ul Normal 0.3-0.8 [facility] Comment on above: Performed By: #### L IPA, LENO, CMP #### [facility] [address] [place] [address] Dr. Marcell Coates Monocytes/100 WBC (Bld) 2.4 % Normal 1.7-12.0 [facility] Comment on above: Performed By: #### L IPA, LENO, CMP #### [facility] [address] [place] [address] Dr. Marcell Coates NEUT # 9.3 103/ul Critically high 1.4-6.5 [facility] Comment on above: Performed By: #### L IPA, LENO, CMP #### [facility] [address] [place] [address] Dr. Marcell Coates Neutrophils/100 WBC (Bld) 82.6 % Critically high 43.0-75.0 [facility] Comment on above: Performed By: #### L IPA, LENO, CMP #### [facility] [address] [place] [address] Dr. Marcell Coates Platelet mean volume (Bld) [Entitic vol] 9.8 fL Normal 9.5-13.5 [facility] Comment on above: Performed By: #### L IPA, LENO, CMP #### [facility] [address] [place] [address] Dr. Marcell Coates PLT 292 103/ul Normal 150-450 [facility] Comment on above: Performed By: #### L LENO STERN, CMP #### [facility] [address] [place] [address] Dr. Marcell Coates RBC 4.43 106/ul Normal 4.20-5.40 [facility] Comment on above: Performed By: #### L LENO STERN, CMP #### [facility] [address] [place] [address] Dr. Marcell Coates WBC 11.3 103/ul Critically high 4.0-11.0 [facility] Comment on above: Performed By: #### L LENO STERN, CMP #### [facility] [address] [place] [address] Dr. Marcell Coates PROF CHEM 8 (BAS METB)on Anion gap [Moles/Vol] 13.8 mmol/L Normal [facility] Comment on above: Performed By: #### B MP #### [facility] [address] [place] [address] Dr. Marcell Coates Calcium [Mass/Vol] 8.9 mg/dL Normal 8.5-10.1 [facility] Comment on above: Performed By: #### B MP #### [facility] [address] [place] [address] Dr. Marcell Coates Chloride [Moles/Vol] 102 mmol/L Normal 98-107 [facility] Comment on above: Performed By: #### B MP #### [facility] [address] [place] [address] Dr. Marcell Coates CO2 [Moles/Vol] 24.3 mmol/L Normal 21.0-32.0 [facility] Comment on above: Performed By: #### B MP #### [facility] [address] [place] [address] Dr. Marcell Coates Creatinine [Mass/Vol] 1.15 mg/dL Critically high 0.55-1.02 [facility] Comment on above: Performed By: #### B MP #### [facility] [address] [place] [address] Dr. Marcell Coates EGFR-AF [facility] >60 Normal >=60 [facility] Comment on above: Performed By: #### B MP #### [facility] [address] [place] [address] [address] Marcell Coates EGFR-NON AF [facility] 50 mL/min/1.73m2 Critically low >=60 [facility] Comment on above: Performed By: #### B MP #### [facility] [address] [place] [address] [address] Marcell Coates Glucose [Mass/Vol] 317 mg/dL Critically high 74-106 [facility] Comment on above: Performed By: #### B MP #### [facility] [address] [place] [address] [address] Marcell Coates Potassium [Moles/Vol] 4.1 mmol/L Normal 3.5-5.1 [facility] Comment on above: Performed By: #### B MP #### [facility] [address] [place] [address] [address] Marcell Coates Sodium [Moles/Vol] 136 mmol/L Normal 136-145 [facility] Comment on above: Performed By: #### B MP #### [facility] [address] [place] [address] [address] Marcell Coates Urea nitrogen [Mass/Vol] 25.0 mg/dL Critically high 7.0-18.0 [facility] Comment on above: Performed By: #### B MP #### [facility] [address] [place] [address] [address] Marcell Coates Urea nitrogen/Creatinine [Mass ratio] 21.7 mg/mg Normal [facility] Comment on above: Performed By: #### B MP #### [facility] [address] [place] [address] [address] Marcell Coates CBC AUTO DIFFon 09-13-2021 BASO # 0.1 103/ul Normal 0.0-0.1 [facility] Comment on above: Performed By: #### C BC ####[facility] [address] [place] [address]Dr. Marcell Coates Basophils/100 WBC (Bld) 0.8 % Normal 0.2-2.0 [facility] Comment on above: Performed By: #### C BC ####[facility] [address] [place], [place] [address]Dr. Marcell Coates EO # 0.4 103/ul Normal 0.0-0.7 [facility] Comment on above: Performed By: #### C BC ####[facility] [address] [place], [place] [address]Dr. Marcell Coates Eosinophils/100 WBC (Bld) 4.1 % Normal 0.9-7.0 [facility] Comment on above: Performed By: #### C BC ####[facility] [address]mf[address]vx[address] [place], [place] [address]Dr. Marcell Coates Erythrocyte distribution width (RBC) [Ratio] 13.3 % Normal 11.0-15.0 [facility] Comment on above: Performed By: #### C BC ####[facility] [address]arr[address] [place], [place] [address]Dr. Marcell Coates Hematocrit (Bld) [Volume fraction] 41.5 % Normal 36.0-48.0 [facility] Comment on above: Performed By: #### C BC ####[facility] [address] [place], [place] [address]Dr. Marcell Coates Hemoglobin (Bld) [Mass/Vol] 13.6 g/dL Normal 12.0-16.0 [facility] Comment on above: Performed By: #### C BC ####[facility] [address] [place], [place] [address]Dr. Marcell Coates IG # 0.02 10e3/ul Normal 0.00-0.03 [facility] Comment on above: Performed By: #### C BC ####[facility] [address] [place], [place] [address]Dr. Marcell Coates IG % 0.2 % Normal 0.0-0.5 [facility] Comment on above: Performed By: #### C BC ####[facility] Ev[address]fld[address] [place], [place] [address]Dr. Marcell Coates LYMPH # 3.9 103/ul Critically high 1.2-3.8 [facility] Comment on above: Performed By: #### C BC ####[facility] [address]ssyusdec8[address] [place] [address]DrSherrie Coates Lymphocytes/100 WBC (Bld) 37.9 % Normal 20.5-60.0 [facility] Comment on above: Performed By: #### C BC ####[facility] T[address]xrowqtg[address] [place], [place] [address]DrSherrie Coates MANUAL DIFF REQ NO Normal [facility] Comment on above: Performed By: #### C BC ####[facility] [address]fe[address] [place], [place] [address]DrSherrie Coates MCH (RBC) [Entitic mass] 30.2 pg Normal 26.7-34.0 [facility] Comment on above: Performed By: #### C BC ####[facility] [address] [place], [place] [address]DrSherrie Coates MCHC (RBC) [Mass/Vol] 32.8 g/dL Normal 29.9-35.2 [facility] Comment on above: Performed By: #### C BC ####[facility] [address] [place], [place] [address]DrSherrie Coates MCV (RBC) [Entitic vol] 92.2 fL Normal 81.0-99.0 [facility] Comment on above: Performed By: #### C BC ####[facility] [address]uniuxelrq[address] [place], [place] [address]DrSherrie Coates MONO # 0.8 103/ul Normal 0.3-0.8 [facility] Comment on above: Performed By: #### C BC ####[facility] R[address]zfebsob[address] [place], [place] [address]DrSherrie Coates Monocytes/100 WBC (Bld) 8.1 % Normal 1.7-12.0 [facility] Comment on above: Performed By: #### C BC ####[facility] [address] [place], [place] [address]DrSherrie Coates NEUT # 5.0 103/ul Normal 1.4-6.5 [facility] Comment on above: Performed By: #### C BC ####[facility] [address]fpfdqlfy16[address] [place] [id number]. Marcell Coates Neutrophils/100 WBC (Bld) 48.9 % Normal 43.0-75.0 [facility] Comment on above: Performed By: #### C BC ####[facility] Wffurzdsgq7048 [place] [id number]. Marcell Coates Platelet mean volume (Bld) [Entitic vol] 9.5 fL Normal 9.5-13.5 [facility] Comment on above: Performed By: #### C BC ####[facility] Injgexvnrl4524 [place] [id number]. Marcell Coates PLT 288 103/ul Normal 150-450 [facility] Comment on above: Performed By: #### C BC ####[facility] Aoprlaadzp3732 [place] [id number]. Marcell Coates RBC 4.50 106/ul Normal 4.20-5.40 [facility] Comment on above: Performed By: #### C BC ####[facility] Fnlcltfhin4827 [place] [id number]. Marcell Coates WBC 10.2 103/ul Normal 4.0-11.0 [facility] Comment on above: Performed By: #### C BC ####[facility] Brourxjzfm9207 [place] [id number]. Marcell Caotes CRPon 09-13-2021 CRP 1.0 mg/dL Normal <=1.0 [facility] Comment on above: Performed By: #### L IPA, LENO, CMP #### [facility] [address] [place] [address] [address] Marcell Coates Covid-19 PCR (CVDTB)on 08-17 SARS-CoV-2 (COVID-19) RNA RUSSELL+probe Ql (Unsp spec) Not detected Normal NOT DETECTED [facility] Comment on above: Result Comment: [...] for this test is supported by the [place] of [employer] and Human Service's declaration that [...] longer be used). Performed By: #### L ELNO STERN, CMP #### [facility] [address] [place] [address] Dr. Marcell Coates GLYCOHEMOGLOBIN A1Con 2021 ADA RECOMMENDATION SEE BELOW Normal [facility] Comment on above: Result Comment: ADA RECOMMENDED LIMIT 4.0 - 6.0 ADA THERAPEUTIC TARGET < 7.0 ACTION SUGGESTED > 7.0 Performed By: #### B MP #### [facility] [address] [place] [address] Dr. Marcell Coates Glucose [Mass/Vol] 128 mg/dL Normal [facility] Comment on above: Performed By: #### B MP #### [facility] [address] [place] [address] Dr. Marcell Coates HbA1c (Bld) [Mass fraction] 6.1 % Normal 4.5-6.2 [facility] Comment on above: Performed By: #### B MP #### [facility] [address] [place] [address] Dr. Marcell Coates PROF CHEM 8 (BAS METB)on Anion gap [Moles/Vol] 13.5 mmol/L Normal [facility] Comment on above: Performed By: #### L LENO STERN, CMP #### [facility] [address] [place] [address] Dr. Marcell Coates Calcium [Mass/Vol] 8.6 mg/dL Normal 8.5-10.1 [facility] Comment on above: Performed By: #### L LENO STERN, CMP #### [facility] [address] [place] [address] [address] Marcell Coates Chloride [Moles/Vol] 107 mmol/L Normal 98-107 [facility] Comment on above: Performed By: #### L LENO STERN, CMP #### [facility] [address] [address] [address] Marcell Coates CO2 [Moles/Vol] 25.5 mmol/L Normal 21.0-32.0 [facility] Comment on above: Performed By: #### L LENO STERN, CMP #### [facility] [address] [place] [address] Dr. Marcell Coates Creatinine [Mass/Vol] 1.25 mg/dL Critically high 0.55-1.02 [facility] Comment on above: Performed By: #### L LENO STERN, CMP #### [facility] [address] [place] [address] Dr. Marcell Coates EGFR-AF [facility] 58 mL/min/1.73m2 Critically low >=60 [facility] Comment on above: Performed By: #### L LENO STERN, CMP #### [facility] [address] [place] [address] Dr. Marcell Coates EGFR-NON AF [facility] 47 mL/min/1.73m2 Critically low >=60 [facility] Comment on above: Performed By: #### L LENO STERN, CMP #### [facility] [address] [place] [address] Dr. Marcell Coates Glucose [Mass/Vol] 154 mg/dL Critically high 74-106 [facility] Comment on above: Performed By: #### L LENO STERN, CMP #### [facility] [address] [place] [address] Dr. Marcell Coates Potassium [Moles/Vol] 4.0 mmol/L Normal 3.5-5.1 [facility] Comment on above: Performed By: #### L LENO STERN, CMP #### [facility] [address] [place] [address] [address] Marcell Coates Sodium [Moles/Vol] 142 mmol/L Normal 136-145 [facility] Comment on above: Performed By: #### L LEENA LENO, CMP #### [facility] [address] [place] [address] [address] Marcell Coates Urea nitrogen [Mass/Vol] 18.0 mg/dL Normal 7.0-18.0 [facility] Comment on above: Performed By: #### L LENO STERN, CMP #### [facility] [address] [place] [address] [address] Marcell Coates Urea nitrogen/Creatinine [Mass ratio] 14.4 mg/mg Normal [facility] Comment on above: Performed By: #### L LENO STERN, CMP #### [facility] [address] [place] [address] Dr. Marcell Coates [facility] 16 mm/hr Normal <=20 [facility] Comment on above: Performed By: #### L LENO STERN, CMP #### [facility] [address] [address] [address] Marcell Coates XR HIP RT 2 [...] by: EDDY MELGOZA Date: 2021-09-13 05:33 Normal [facility] XR LSPINE 2_3 VIEWSon 2021 XR LSPINE [...] LIZANDRO PENDLETON Date: 2021-09-13 07:37 Normal [facility] CBC W/DIFFon 08-09-2020 BASOPHILS ABS AUTO [facility] 0.1 x10E3/uL Normal 0.0-0.2 [facility] Comment on above: Performed By: #### L AB293, LAB17 #### [facility] 1 , BASOPHILS RELATIVE AUTO [facility] 1 % Normal Not Estab. [facility] Comment on above: Performed By: #### L AB293, LAB17 #### [facility] 1 , Eosinophils (Bld) [#/Vol] 0.2 10*3/uL Normal 0.0-0.4 [facility] Comment on above: Performed By: #### L AB293, LAB17 #### [facility] 1 , Eosinophils/100 WBC (Bld) 3 % Normal Not Estab. [facility] Comment on above: Performed By: #### L AB293, LAB17 #### [facility] 1 , Erythrocyte distribution width (RBC) [Ratio] 11.9 % Normal 11.7-15.4 [facility] Comment on above: Performed By: #### L AB293, LAB17 #### [facility] 1 , Hematocrit (Bld) [Volume fraction] 43.8 % Normal 34.0-46.6 [facility] Comment on above: Performed By: #### L AB293, LAB17 #### [facility] 1 , HEMOGLOBIN [facility] 14.9 g/dL Normal 11.1-15.9 [facility] Comment on above: Performed By: #### L AB293, LAB17 #### [facility] 1 , IMMATURE GRANS (ABS) 0.0 x10E3/uL Normal 0.0-0.1 [facility] Comment on above: Performed By: #### L AB293, LAB17 #### [facility] 1 , Immature granulocytes/100 WBC (Bld) 0 % Normal Not Estab. [facility] Comment on above: Performed By: #### L AB293, LAB17 #### [facility] 1 , Lymphocytes (Bld) [#/Vol] 2.4 10*3/uL Normal 0.7-3.1 [facility] Comment on above: Performed By: #### L AB293, LAB17 #### [facility] 1 , Lymphocytes/100 WBC (Bld) 26 % Normal Not Estab. [facility] Comment on above: Performed By: #### L AB293, LAB17 #### [facility] 1 , MCH (RBC) [Entitic mass] 31.2 pg Normal 26.6-33.0 [facility] Comment on above: Performed By: #### L AB293, LAB17 #### [facility] 1 , MCHC (RBC) [Mass/Vol] 34.0 g/dL Normal 31.5-35.7 [facility] Comment on above: Performed By: #### L AB293, LAB17 #### [facility] 1 , MCV [facility] 92 fL Normal 79-97 [facility] Comment on above: Performed By: #### L AB293, LAB17 #### [facility] 1 , Monocytes (Bld) [#/Vol] 0.5 10*3/uL Normal 0.1-0.9 [facility] Comment on above: Performed By: #### L AB293, LAB17 #### [facility] 1 , Monocytes/100 WBC (Bld) 6 % Normal Not Estab. [facility] Comment on above: Performed By: #### L AB293, LAB17 #### [facility] 1 , NEUTROPHIL ABS AUTO [facility] 6.1 x10E3/uL Normal 1.4-7.0 [facility] Comment on above: Performed By: #### L AB293, LAB17 #### [facility] 1 , NEUTROPHILS RELATIVE AUTO [facility] 64 % Normal Not Estab. [facility] Comment on above: Performed By: #### L AB293, LAB17 #### [facility] 1 , PLATELET COUNT [facility] 336 x10E3/uL Normal 150-450 [facility] Comment on above: Performed By: #### L AB293, LAB17 #### [facility] 1 , RED BLOOD CELL COUNT [facility] 4.77 x10E6/uL Normal 3.77-5.28 [facility] Comment on above: Performed By: #### L AB293, LAB17 #### [facility] 1 , WBC (Bld) [#/Vol] 9.4 10*3/uL Normal 3.4-10.8 [facility] Comment on above: Performed By: #### L AB293, LAB17 #### [facility] 1 , COMPREHENSIVE METABOLIC PANE Bulmaro 08-09-2020 Albumin [Mass/Vol] 4.8 g/dL Normal 3.8-4.8 [facility] Comment on above: Order Comment: Relea se to patient->Immediate Performed By: #### L AB293, LAB17 #### [facility] 1 , Albumin/Globulin [Mass ratio] 1.7 {ratio} Normal 1.2-2.2 [facility] Comment on above: Order Comment: Relea se to patient->Immediate Performed By: #### L AB293, LAB17 #### [facility] 1 , ALP [Catalytic activity/Vol] 74 U/L Normal 48-121 [facility] Comment on above: Order Comment: Relea se to patient->Immediate Result Comment: Pl ease note reference interval change Performed By: #### L AB293, LAB17 #### [facility] 1 , ALT [Catalytic activity/Vol] 13 U/L Normal 0-32 [facility] Comment on above: Order Comment: Relea se to patient->Immediate Result Comment: Perf ormed At: [address] [facility] [address] [id number] Aletha Menendez PhD [id number] Performed By: #### L AB293, LAB17 #### [facility] 1 , AST [Catalytic activity/Vol] 17 U/L Normal 0-40 [facility] Comment on above: Order Comment: Relea se to patient->Immediate Performed By: #### L AB293, LAB17 #### [facility] 1 , Bilirubin [Mass/Vol] 0.2 mg/dL Normal 0.0-1.2 [facility] Comment on above: Order Comment: Relea se to patient->Immediate Performed By: #### L AB293, LAB17 #### [facility] 1 , Calcium [Mass/Vol] 9.9 mg/dL Normal 8.7-10.2 [facility] Comment on above: Order Comment: Relea se to patient->Immediate Performed By: #### L AB293, LAB17 #### [facility] 1 , Chloride [Moles/Vol] 102 mmol/L Normal 96-106 [facility] Comment on above: Order Comment: Relea se to patient->Immediate Performed By: #### L AB293, LAB17 #### [facility] 1 , CO2 [Moles/Vol] 22 mmol/L Normal 20-29 [facility] Comment on above: Order Comment: Relea se to patient->Immediate Performed By: #### L AB293, LAB17 #### [facility] 1 , Creatinine [Mass/Vol] 0.85 mg/dL Normal 0.57-1.00 [facility] Comment on above: Order Comment: Relea se to patient->Immediate Performed By: #### L AB293, LAB17 #### [facility] 1 , EGFR IF NONAFRICN AM 82 mL/min/1.73 Normal >59 [facility] Comment on above: Order Comment: Relea se to patient->Immediate Performed By: #### L AB293, LAB17 #### [facility] 1 , GFR/1.73 sq M.predicted among blacks MDRD (S/P/Bld) [Vol rate/Area] 94 mL/min/{1.73_m2} Normal >59 [facility] Comment on above: Order Comment: Relea se to patient->Immediate Result Comment: [facility] currently reports eGFR in compliance with the current recommendations of the [employer]. [facility] will update reporting as new guidelines are published from the NKF-ASN Task force. Performed By: #### L AB293, LAB17 #### [facility] , Globulin (S) [Mass/Vol] 2.9 g/dL Normal 1.5-4.5 [facility] Comment on above: Order Comment: Relea se to patient->Immediate Performed By: #### L AB293, LAB17 #### [facility] 1 , Glucose [Mass/Vol] 91 mg/dL Normal 65-99 [facility] Comment on above: Order Comment: Relea se to patient->Immediate Performed By: #### L AB293, LAB17 #### [facility] 1 , Potassium [Moles/Vol] 4.2 mmol/L Normal 3.5-5.2 [facility] Comment on above: Order Comment: Relea se to patient->Immediate Performed By: #### L AB293, LAB17 #### [facility] 1 , Protein [Mass/Vol] 7.7 g/dL Normal 6.0-8.5 [facility] Comment on above: Order Comment: Relea se to patient->Immediate Performed By: #### L AB293, LAB17 #### [facility] 1 , Sodium [Moles/Vol] 139 mmol/L Normal 134-144 [facility] Comment on above: Order Comment: Relea se to patient->Immediate Performed By: #### L AB293, LAB17 #### [facility] 1 , Urea nitrogen [Mass/Vol] 14 mg/dL Normal 6-24 [facility] Comment on above: Order Comment: Relea se to patient->Immediate Performed By: #### L AB293, LAB17 #### [facility] 1 , Urea nitrogen/Creatinine [Mass ratio] 16 mg/mg Normal 9-23 [facility] Comment on above: Order Comment: Relea se to patient->Immediate Performed By: #### L AB293, LAB17 #### [facility] 1 , Vital Signs Date Time Vital Sign Value Performing Clinician Rip siu 01-06-2024 11:03-0400 Body height 157.5 cm Travis Bowser MD Work Phone: [employer] 01-06-2024 11:03-0400 Body mass index (BMI) [Ratio] 38.59 kg/m2 Travis Bowser MD Work Phone: [facility] [employer] [facility] 01-06-2024 11:03-0400 Body weight 95.71 kg Travis Bowser MD Work Phone: [facility] [employer] [facility] 01-06-2024 11:03-0400 Diastolic blood pressure 79 mm[Hg] Travis Bowser MD Work Phone: [facility] 01-06-2024 11:03-0400 Heart rate 70 /min Travis Bowser MD Work Phone: [facility] 01-06-2024 11:03-0400 SaO2% (BldA) [Mass fraction] 93 % Travis Bowser MD Work Phone: [facility] 01-06-2024 11:03-0400 Systolic blood pressure 127 mm[Hg] Travis Bowser MD Work Phone: [facility] 12-09-2023 13:25-0400 Diastolic blood pressure 68 mm[Hg] BUSINESS PLANNING ANALYST-C Claudine Kastor Work Phone: [facility] 12-09-2023 13:25-0400 Heart rate 66 /min BUSINESS PLANNING ANALYST-C Claudine Kastor Work Phone: [facility] 12-09-2023 13:25-0400 Respiratory rate 18 /min BUSINESS PLANNING ANALYST-C Claudine Kastor Work Phone: [facility] 12-09-2023 13:25-0400 SaO2% (BldA) [Mass fraction] 100 % BUSINESS PLANNING ANALYST-C Claudine Kastor Work Phone: [facility] 12-09-2023 13:25-0400 Systolic blood pressure 128 mm[Hg] BUSINESS PLANNING ANALYST-C Claudine Kastor Work Phone: [facility] 12-09-2023 10:51-0400 Body height 157.48 cm BUSINESS PLANNING ANALYST-C Claudine Kastor Work Phone: [facility] 12-09-2023 10:51-0400 Body weight 97.52 kg BUSINESS PLANNING ANALYST-C Claudine Hernadez Work Phone: [facility] 11-06-2023 08:51-0400 Body height 157.48 cm BUSINESS PLANNING ANALYST-C Claudine Hernadez Work Phone: [facility] 11-06-2023 08:51-0400 Body weight 97.06 kg BUSINESS PLANNING ANALYST-C Claudine Hernadez Work Phone: [facility] Encounters Encounter Date Encounter Type Care Provider Facility Start: 06-10-2024 End: 06-10-2024 ambulatory Kerri Varela [facility] Work Phone: Start: 06-10-2024 End: 06-10-2024 Departed Referred Khushbu Marker DO Work Phone: [facility] Start: 04-30-2024 End: 04-30-2024 ambulatory JESSE [facility] Start: 04-01-2024 End: 04-01-2024 ambulatory None Provider [facility] Start: 03-31-2024 End: 04-01-2024 ambulatory Lesley SR Facility:[facility] Start: 03-15-2024 End: 03-15-2024 ambulatory Khushbu Hernandez [facility] Work Phone: Start: 03-15-2024 End: 03-15-2024 Departed Referred Khushbu Marker DO Work Phone: [facility] Start: 02-27-2024 End: 02-27-2024 ambulatory None Provider [facility] Start: 02-27-2024 End: 02-27-2024 ambulatory Murali Waterman MD Facility:[facility] Start: 02-11-2024 End: 02-11-2024 ambulatory None Provider [facility] Start: 02-05-2024 End: 02-05-2024 ambulatory None Provider Facility:[facility] Start: 02-05-2024 End: 02-05-2024 ambulatory Lesley Lanza MANAGER POKER-PURE CULTURE OPERATOR Facility:[facility] Start: 01-30-2024 End: 02-03-2024 Refill Romeo Colon MANAGER POKER-PURE CULTURE OPERATOR Work Phone: [facility] Comment on above: Med Refill Start: 01-30-2024 End: 01-30-2024 ambulatory None Provider [facility] Start: 01-29-2024 End: 01-29-2024 ambulatory Murali Waterman MD Facility:[facility] Start: 01-06-2024 End: 01-06-2024 ambulatory TRAVIS BOWSER [facility] Start: 01-06-2024 End: 01-06-2024 Office outpatient visit 25 minutes [facility] Comment on above: Primary hypertension (Primary Dx); Left ventricular failure (CMS-HCC); 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); Shortness of breath; Acute systolic congestive heart failure (CMS-HCC); Acute on chronic HFrEF (heart failure with reduced ejection fraction) ([facility]-H[facility]) Start: 01-05-2024 End: 01-09-2024 ambulatory None Provider [facility] Start: 01-02-2024 End: 01-02-2024 Telephone encounter Michelle Goodwin MA [facility] Start: 01-01-2024 End: 01-07-2024 Refill Josi Ba MD Work Phone: [facility] Comment on above: Med Refill Start: 12-26-2023 End: 12-26-2023 Telephone encounter Mary Vance CMA [facility] Start: 12-22-2023 Registered Recurring DEWAYNE Hernadez Work Phone: [facility] Start: 12-22-2023 ambulatory Fletcher Rhodes acility:[facility] Start: 12-17-2023 Non-patient / Non-visit DEWAYNE Hernadez Work Phone: [facility] Work Phone: Start: 12-12-2023 End: 12-12-2023 ambulatory None Provider Facility:[facility] Start: 12-12-2023 End: 12-12-2023 ambulatory Murali Waterman MD Facility:[facility] Start: 12-09-2023 Non-patient / Non-visit BUSINESS PLANNING ANALYST-C Claudine Hernadez Work Phone: [facility] Work Phone: Start: 12-09-2023 End: 12-09-2023 Admission to same day surgery center BUSINESS PLANNING ANALYST-C Claudine Hernadez Work Phone: [facility] Work Phone: Start: 12-09-2023 End: 12-09-2023 ambulatory BUSINESS PLANNING ANALYST-C Claudine Hernadez Work Phone: [facility] Work Phone: Start: 12-04-2023 End: 12-05-2023 Refill Zara Bazan MANAGER POKER-PURE CULTURE OPERATOR Work Phone: [facility] Start: 11-27-2023 End: 11-27-2023 ambulatory None Provider [facility] Start: 11-27-2023 End: 11-27-2023 ambulatory Lesley Lanza MANAGER POKER-PURE CULTURE OPERATOR Facility:[facility] Start: 11-06-2023 End: 11-06-2023 ambulatory BUSINESS PLANNING ANALYST-C Claudine Hernadez Work Phone: [facility] Work Phone: Start: 11-06-2023 End: 11-06-2023 Departed Referred BUSINESS PLANNING ANALYST-C Claudine Hernadez Work Phone: [facility] Work Phone: Start: 11-03-2023 End: 11-05-2023 Refill Aubrey Sanchez MANAGER POKER-PURE CULTURE OPERATOR Work Phone: [facility] Comment on above: Med Refill Start: 10-09-2023 End: 10-10-2023 Refill Germania [facility] Comment on above: Med Refill Start: 09-29-2023 Non-patient / Non-visit DEWAYNE Hernadez Work Phone: [facility] Work Phone: Start: 09-01-2023 End: 09-01-2023 ambulatory None Provider Facility[facility] Start: 08-15-2023 End: 08-18-2023 Refill Janell Rivera APRN-PURE CULTURE OPERATOR Work Phone: [facility] Comment on above: Med Refill Start: 07-24-2023 End: 07-25-2023 Emergency department patient visit None Provider Facility:[facility] Start: 07-21-2023 End: 07-21-2023 Emergency department patient visit None Provider Facility:[facility] Start: 07-07-2023 End: 07-07-2023 ambulatory Kendrick Aguilar MD Facility:[facility] Start: 06-16-2023 End: 06-16-2023 ambulatory Kendrick Aguilar MD Facility:[facility] Start: 05-26-2023 End: 05-27-2023 ambulatory JAMAR M [facility] Start: 05-16-2023 End: 06-16-2023 ambulatory JAMAR [facility] Start: 05-14-2023 End: 05-15-2023 ambulatory JOSI BA [facility] Start: 05-08-2023 End: 05-09-2023 ambulatory TYRON WAGNER [facility] Start: 05-07-2023 Refill Josi aB MD Work Phone: [facility] Start: 05-01-2023 End: 05-16-2023 ambulatory [facility] Comment on above: Encounter for screen ing mammogram for malignant neoplasm of breast (Primary Dx) Start: 04-03-2023 Refill Hiro Kaba RN [facility] Start: 03-07-2023 Refill Aubrey Velazquez sser MANAGER POKER-PURE CULTURE OPERATOR Work Phone: [facility] Comment on above: Med Refill Start: 03-06-2023 Refill Josi Ba MD Work Phone: [facility] Comment on above: Primary hypertension ; Combined systolic and diastolic congestive heart failure, unspecified HF chronicity (CMS-HCC); Acute combined systolic and diastolic congestive heart failure (CMS-HCC); Cardiomegaly Start: 07-29-2022 End: 07-29-[address] KHUSHBU HERNANDEZ . Facility:[facility] Start: 07-15-2022 End: 07-15-2022 ambulatory ROBERT DIAS Facility:[facility] Start: 07-10-2022 ambulatory EDILSON~[id number] [facility] Start: 06-18-2022 End: 06-19-[address] KHUSHBU HERNANDEZ . Facility:[facility] Start: 06-14-2022 ambulatory EDILSON~[id number] [facility] Start: 06-14-2022 End: 06-14-[address] KHUSHBU HERNANDEZ . Facility:[facility] Start: 06-09-2022 End: 06-09-2022 ambulatory PENNY MASON . Facility:[facility] Start: 05-14-2022 ambulatory EDILSON~[id number] [facility] Start: 05-11-2022 End: 05-11-[address] ISACC SABA Facility:[facility] Start: 04-22-2022 End: 04-22-[address] YOLIS ARDON . Facility:[facility] Start: 04-03-2022 End: 04-03-2022 ambulatory ROBERT DIAS Facility:[facility] Start: 01-22-2022 End: 01-22-2022 ambulatory ALVA DIETZ Facility:[facility] Start: 12-22-2021 End: 12-22-2021 ambulatory ALVA DIETZ Facility:[facility] Start: 11-06-2021 End: 11-07-2021 ambulatory [facility] Facility: Start: 09-13-2021 End: 09-14-2021 ambulatory [facility] Facility: Procedures Date Procedure Procedure Detail Performing Clinician Start: 03-15-2024 Streptococcus pyogen es culture Khushbu Marker DO Work Phone: Start: 01-06-2024 Follow-up visit Follow-up BOLIVAR HERNÁNDEZ Murray BOWSER Start: 12-09-2023 Screening colonoscopy N P-C Claudine Hernadez Work Phone: Start: 05-14-2023 Mammography Janell Rivera MANAGER POKER-PURE CULTURE OPERATOR Work Phone: Start: 09-14-2022 Adult depression scr eening assessment Modestoadriana Sanchez MANAGER POKER-PURE CULTURE OPERATOR Work Phone: Start: 05-09-2022 Mammography Christinnicole byers MANAGER POKER-PURE CULTURE OPERATOR Work Phone: Plan of Treatment Date Care Activity Detail Author Start: 05-14-2025 Screening for malign ant neoplasm of breast Mammogram [facility] Start: 01-05-2025 Adult BMI Screening Adult BMI Screen ing [facility] [employer] [facility] Start: 06-10-2024 Urine culture [facility] Start: 06-10-2024 Bacteria identified in Urine by Culture Urine Culture [facility] Start: 05-14-2024 Adult BMI Screening Adult BMI Screen ing [facility] [employer] [facility] Start: 05-09-2024 Screening for malign ant neoplasm [facility] Start: 03-15-2024 Group A Streptococcu s Culture Group A Streptococcus Culture [facility] Start: 02-02-2024 Tobacco Counseling [facility] Start: 01-06-2024 End: 01-05-2025 Echo complete W/O contrast Echo complete W/O contrast Echocardiography Routine Primary hypertension Left ventricular failure (CMS-HCC) 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) Shortness of breath Expected: 01/06/2024, Expires: 01/05/2025 [employer] Work Phone: Comment on above: Expected: 01/06/2024 , Expires: 01/05/2025 Start: 01-06-2024 End: 01-05-2025 NM Heart Perfusion W stress and W radionuclide IV Nuc stress [facility] Routine Primary hypertension Left ventricular failure (CMS-HCC) 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) Shortness of breath Expected: 01/06/2024, Expires: 01/05/[address] [facility] Comment on above: Expected: 01/06/2024 , Expires: 01/05/2025 Start: 01-06-2024 End: 01-06-2024 Patient encounter procedure 01/06/2024 11:00 AM EDT [facility] [address] [place] [id number] Travis Bowser MD [address] [place], [place] [id number] [facility] Start: 12-09-2023 [facility] Start: 11-29-2023 Adult BMI Screening Adult BMI Screen ing [facility] Start: 11-29-2023 Tobacco Screening Tobacco Screening [facility] Start: 11-16-2023 COVID-19 Vaccine ( season) COVID-19 Vaccine ( season) [facility] Start: 11-16-2023 COVID-19 Vaccine ( season) COVID-19 Vaccine ( season) [facility] Start: 11-16-2023 Influenza vaccination Influenza Vacc ine [facility] Start: 09-15-2023 Depression Screening Depression Scre ening [facility] Start: 06-16-2023 End: 06-16-2023 Patient encounter procedure 06/16/2023 3:00 PM EDT Office Visit [facility] [address] [place] [address] [place] [address] Anusha Roberto MD [address] [facility] [address] [place] [address] [facility] Start: 05-26-2023 Administration of varicella zoster vaccine Zoster (Shingles) Vaccine (1 of 2) [facility] Start: 05-14-2023 End: 05-14-2023 Patient encounter procedure 05/14/2023 3:15 PM EST Appointment [facility] - Mammogram DEXA [address] [place] [id number] [facility] - [facility] DEXA Start: 05-12-2023 End: 05-12-2023 Patient encounter procedure 05/12/2023 2:45 PM EST Appointment [facility] [address] [facility] [place] [address] Arrived [facility] Comment on above: Arrived Start: 05-08-2023 Subsequent hospital visit by physician [facility] Start: 05-01-2023 End: 05-01-2024 DBT Breast - bilateral screening Mammography screening bilateral with CAD Imaging Routine Encounter for screening mammogram for malignant neoplasm of breast Expected: 05/01/2023, Expires: 05/01/2024 [facility] Work Phone: Comment on above: Expected: 05/01/2023 , Expires: 05/01/2024 Start: 03-31-2023 End: 03-31-2023 Patient encounter procedure 03/31/2023 11:00 AM EST Office Visit [facility] [address] [place] [phone] Tyron Wagner, PA [address] Wh[address] [address] [facility] Start: 03-24-2023 End: 03-24-2023 Patient encounter procedure [facility] Start: 11-15-2022 COVID-19 Vaccine ( season) COVID-19 Vaccine ( season) [facility] Start: 11-15-2022 Influenza vaccination Influenza Vacc ine [facility] Start: 05-26-1991 Adult BMI Follow Up Plan Adult BMI F [facility]llow Up [email or web address] Start: 1984 DTaP,Tdap and Td Vaccines (5 - Tdap) DTaP,Tdap and Td Vaccines (5 - Tdap) [email or web address] End: 10-08-2024 CBC panel - Blood by Automated count CBC Lab Routine 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 Occurrences starting 10/10/2023 until 10/08/2024 [employer] Work Phone: Comment on above: 1 Occurrences starti ng 10/10/2023 until 10/08/2024 End: 10-08-2024 Comprehensive metabolic 2000 panel - Serum or Plasma Comprehensive metabolic panel Lab Routine 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 Occurrences starting 10/10/2023 until 10/08/2024 [employer] Comment on above: 1 Occurrences starti ng 10/10/2023 until 10/08/2024 End: 10-08-2024 Lipid panel Lipid panel Lab Routine 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 Occurrences starting 10/10/2023 until 10/08/2024 [employer] Comment on above: 1 Occurrences starti ng 10/10/2023 until 10/08/2024 End: 10-08-2024 Magnesium [Mass/volume] in Serum or Plasma Magnesium Lab Routine 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 Occurrences starting 10/10/2023 until 10/08/2024 [email or web address] Comment on above: 1 Occurrences starti ng 10/10/2023 until 10/08/2024 Patient Education Colon Polypect eduardo (ABEBE) Know your [facility] Work Phone: Immunizations Immunization Date Immunization Notes Care Provider Sabrina richey 05-15-2021 influenza, seasonal, injectable Aubrey Sanchez MANAGER POKER-PURE CULTURE OPERATOR [email or web address] 05-15-2021 influenza virus vaccine, unspecified formulation Mischell Laura MANAGER POKER-PURE CULTURE OPERATOR Work Phone: [facility] 01-02-2021 Influenza, injectabl e, Madin Fernanda Canine Kidney, quadrivalent with preservative Mischell Laura MANAGER POKER-PURE CULTURE OPERATOR Work Phone: [facility] 11-14-2020 COVID-19, mRNA, LNP- S, PF, 30mcg/0.3mL Dose Mischell Laura MANAGER POKER-PURE CULTURE OPERATOR Work Phone: [facility] 11-26-2018 influenza, injectabl e, quadrivalent, preservative free Mischell Laura MANAGER POKER-PURE CULTURE OPERATOR Work Phone: [facility] 12-03-2007 hepatitis B vaccine, adult dosage Mischell Laura MANAGER POKER-PURE CULTURE OPERATOR Work Phone: [facility] 08-27-2007 hepatitis B vaccine, adult dosage Mischell Laura MANAGER POKER-PURE CULTURE OPERATOR Work Phone: [facility] 07-27-2007 hepatitis B vaccine, adult dosage Mischell Laura MANAGER POKER-PURE CULTURE OPERATOR Work Phone: [facility] 04-16-1982 measles, mumps and rubella virus vaccine Mischell Laura MANAGER POKER-PURE CULTURE OPERATOR Work Phone: [facility] 10-31-1978 diphtheria, tetanus toxoids and pertussis vaccine Mischell Laura MANAGER POKER-PURE CULTURE OPERATOR Work Phone: [facility] 10-31-1978 poliovirus vaccine, unspecified formulation Mischell Laura MANAGER POKER-PURE CULTURE OPERATOR Work Phone: [facility] 12-01-1976 poliovirus vaccine, unspecified formulation Mischell Laura MANAGER POKER-PURE CULTURE OPERATOR Work Phone: [facility] 07-05-1975 diphtheria, tetanus toxoids and pertussis vaccine Mischell Laura MANAGER POKER-PURE CULTURE OPERATOR Work Phone: [facility] 07-05-1975 poliovirus vaccine, unspecified formulation Mischell Laura MANAGER POKER-PURE CULTURE OPERATOR Work Phone: [facility] 09-29-1974 diphtheria, tetanus toxoids and pertussis vaccine Mischell Laura MANAGER POKER-PURE CULTURE OPERATOR Work Phone: [facility] 09-29-1974 measles, mumps and rubella virus vaccine Mischell Laura MANAGER POKER-PURE CULTURE OPERATOR Work Phone: [facility] 09-29-1974 poliovirus vaccine, unspecified formulation Mischell Laura MANAGER POKER-PURE CULTURE OPERATOR Work Phone: [facility] 08-03-1974 diphtheria, tetanus toxoids and pertussis vaccine Mischell Laura MANAGER POKER-PURE CULTURE OPERATOR Work Phone: [facility] 08-03-1974 poliovirus vaccine, unspecified formulation Mischell Laura MANAGER POKER-PURE CULTURE OPERATOR Work Phone: [facility] Payers Date Payer Category Payer Self-pay 2023 Unknown 2022 Medicaid [id number] 2022 Medicaid [id number] 1973 Unknown [id number] .16.84 0.1.206453.3.579.2.593 1973 Unknown [id number] .16.84 0.1.847927.3.579.2.593 1973 Unknown [id number] .16.84 0.1.261880.3.579.2.593 1973 Unknown [id number] .16.84 0.1.464760.3.579.2.593 1973 Unknown [id number] .16.84 0.1.269901.3.579.2.593 1973 Unknown [id number] .16.84 0.1.898659.3.579.2.593 1973 Unknown [id number] 2.16.84 0.1.995391.3.579.2.593 1973 Unknown [id number] 2.16.84 0.1.836051.3.579.2.593 1973 Unknown [id number] 2.16.84 0.1.048208.3.579.2.593 1973 Unknown [id number] 2.16.84 0.1.313855.3.579.2.593 1973 Unknown [id number] 2.16.84 0.1.462880.3.579.2.593 1973 Unknown [id number] 2.16.84 0.1.829124.3.579.2.593 1973 Unknown [id number] 2.16.8 40.1.016521.3.579.2.1286 1973 Unknown [id number] 2.16.8 40.1.547445.3.579.2.1286 1973 Unknown [id number] 2.16.8 40.1.625834.3.579.2.1286 1973 Unknown [id number] 2.16.8 40.1.544020.3.579.2.1286 1973 Unknown [id number] 2.16.8 40.1.365915.3.579.2.1286 1973 Unknown [id number] 2.16.8 40.1.702839.3.579.2.1286 1973 Unknown [id number] 2.16.8 40.1.993798.3.579.2.1286 1973 Unknown [id number] 2.16. 840.1.318047.3.579.2.196 1973 Unknown [id number] 2.16. 840.1.546728.3.579.2.196 1973 Unknown [id number] 2.16. 840.1.606853.3.579.2.196 1973 Unknown [id number] 2.16. 840.1.689453.3.579.2. 1973 Unknown [id number] 2.16. 840.1.505402.3.579.2. 1973 Unknown [id number] 2.16. 840.1.488766.3.579.2. 1973 Unknown [id number] 2.16. 840.1.897828.3.579.2. 1973 Unknown [id number] 2.16. 840.1.435599.3.579.2. 1973 Unknown [id number] 2.16.8 40.1.875425.3.579.2. 1973 Unknown [id number] 2.16.8 40.1.225290.3.579.2. 1973 Unknown [id number] 2.16.8 40.1.189688.3.579.2. 1973 Unknown [id number] 2.16.8 40.1.047275.3.579.2. 1973 Unknown [id number] 2.16.8 40.1.510915.3.579.2. 1975 Unknown [id number] 2.16.8 40.1.806557.3.579.2. 1975 Unknown [id number] 2.16.8 40.1.096644.3.579.2. 1975 Unknown [id number] 2.16.8 40.1.180639.3.579.2. 1975 Unknown [id number] 2.16.8 40.1.277687.3.579.2. 1975 Unknown [id number] 2.16.8 40.1.053841.3.579.2. 1975 Unknown [id number] 2.16.8 40.1.106675.3.579.2.718 1975 Unknown [id number] 2.16.8 40.1.759244.3.579.2.718 1959 Unknown [id number] Private Health Insurance [id number] Unknown [id number] 2.16.8 40.1.788921.3.579.2.531 Unknown [id number] 2.16.8 40.1.212632.3.579.2.531 Unknown [id number] 2.16.8 40.1.999110.3.579.2.531 Unknown [id number] 2.16.8 40.1.077970.3.579.2.531 Unknown [id number] 2.16.8 40.1.296730.3.579.2.531 Social History Date Type Detail Facility Start: 12-09-2023 End: 12-09-2023 Tobacco smoking status NHIS Smoker (finding) [facility] Start: 1975 Sex Assigned At Female F [facility] Start: 03-17-2024 Sex Patient sex un known (finding) [facility] Start: 08-22-2022 Tobacco smoking stat [facility] Smokes tobacco daily [facility] History of tobacco use Cigarette Smoker P [facility] Start: 08-22-2022 End: 01-06-2024 Cigarettes smoked current (pack per day) - Reported 0.[address] [facility] Start: 08-22-2022 Tobacco use and exposure Smoke less tobacco non-user [facility] Start: 11-28-2022 End: 05-14-2023 Alcohol intake Lifetime non-drinker (finding) [facility] Start: 09-14-2022 End: 01-06-2024 Alcohol Use Disorder Identification Test - Consumption [AUDIT-C] [facility] How often to you hav e a drink containing alcohol? Never [facility] How many standard dr inks containing alcohol do you have on a typical day? Patient does not drink [facility] Start: 1975 Sex Assigned At Not on file P [facility] Start: 10-20-2014 End: 06-12-2024 Sex Female (finding) [facility] Goals Date Patient Goal Desired Activity [...] Date & Type Note Facility 03-01-2024 Note [id number] SURGERY Clinical Discharge Summary PERSON INFORMATION Name CHINMAY KNIGHT Age 48 Years 1975 Sex FEMALE Language Russian PCP Provider, None Marital Status Other Med Service Pain Management Surgery Acct# Arrival 02/27/2024 06:37:50 Visit Reason LUMBAR PAIN Acuity LOS 007 17:50 Address: [address] [address] Comment: PROVIDER INFORMATION VITALS INFORMATION Vital Sign [...] every day. pregabalin (more content not included)... [facility] 02-26-2024 Note [id number] The patient?s history of present illness, physical findings and plan of care have been reviewed. There are no changes. [Electronically Signed on: 02/27/2024 07:33 EST] MURALI WATERMAN MD [Electronically Signed on: 02/27/2024 07:26 EST] Renee Dean MA [Verified on: 02/27/2024 07:33 EST] MURALI WATERMAN MD [Transcribed on: 02/26/2024 12:31 EST] [facility] 02-02-2024 Note [id number] [facility] 01-30-2024 Note [facility] SURGERY Clinical Discharge Summary PERSON INFORMATION Name CHINMAY KNIGHT Age 48 Years 1975 Sex FEMALE Language Russian PCP Provider, None Marital Status Other Med Service Pain Management Surgery Acct# Arrival 01/30/2024 09:04:47 Visit Reason LUMBAR PAIN Acuity LOS 003 19:01 Address: [address] [facility] [address] Comment: PROVIDER INFORMATION VITALS INFORMATION Vital Sign [...] tablet) 1 tab( (more content not included)... [facility] 01-06-2024 History of Presen t illness Narrative Chinmay Knight Date of visit: 01/06/2024 Date of : 1975 Age: 48 y.o. Patient Active Problem List Diagnosis Knee pain, chronic Degenerative arthritis of left knee Hypertension Morbid obesity ([facility]) Osteoarthritis Depression GERD (gastroesophageal reflux disease) ABBEY (obstructive sleep apnea) Respiratory failure with hypercapnia ([facility]) Combined systolic and diastolic congestive heart failure ([facility]) Left ventricular failure ([facility]) Right arm pain ASCVD (arteriosclerotic cardiovascular disease) Dyslipidemia Acute on chronic HFrEF (heart failure with reduced ejection fraction) ([facility]) 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 Records are reviewed. She is a 48-year-old obese woman with diabetes, modest essential hypertension, nonischemic cardiomyopathy, small-vessel obstructive coronary artery disease. She initially presented in August of 2022 with worsening breathlessness pedal edema and chest pain. Echocardiogram revealed ejection fraction on the order of 25-30% with pdpq-wo-ixwsipyn tricuspid regurgitation and estimates of elevation right-sided pressures. She was transferred to [facility] underwent cardiac catheterization ultimately through a right [...] Diagnosis Date Arthritis CHF (congestive heart failure) ([facility]) Diabetes mellitus type 2, controlled ([facility]) GERD (gastroesophageal reflux disease) Hypertension Obesity Shortness of breath No data recorded No data recorded No data recorded Past Surgical History: Procedure Laterality Date Coronary angiogram and right heart and left ventricular gram/pressure N/A 09/03/2022 Performed by Victor Hugo Jiménez MD at [facility] CARD[facility] CATH LABS HYSTERECTOMY OOPHORECTOMY REPLACEMENT TOTAL [...] UP No follow-ups on file. PCP: CLAUDINE HERNADEZ, MANAGER POKER-PURE CULTURE OPERATOR Referring Physician: Josi Ba MD [address] [facility] [address] documented in this encounter [facility] 01-02-2024 Miscellaneous Notes Called patient to remind them to bring their most current copy of their medication list with them to their appt. Patient verbalizes understanding. documented in this encounter [facility] 01-02-2024 Telephone encounter Note Called patient to remind them to bring their most current copy of their medication list with them to their appt. Patient verbalizes understanding. [facility] 01-01-2024 Miscellaneous Notes Discontinued at visit with FRS on 01/05 documented in this encounter [facility] 01-01-2024 Telephone encounter Note Discontinued at visit with FRS on 01/[address] [facility] 12-26-2023 Miscellaneous Notes PHONED PT TO SCHEDULE APPT PER [facility], ON TO CALL OFFICE TO SCHEDULE APPT. documented in this encounter [facility] 12-26-2023 Telephone encounter Note PHONED PT TO SCHEDULE APPT PER [facility], LM ON VM TO CALL OFFICE TO SCHEDULE APPT. [facility] 12-22-2023 Note Patient called [facility] ting her relief obtained after the procedure performed on 12/12/2023. Patient states she felt greater than 80% relief for two hours after the procedure. [Electronically Signed on: 12/22/2023 15:12 EDT] SolorzanoAgatha [Verified on: 12/22/2023 15:12 EDT] SolorzanoAgatha [facility] 12-15-2023 Note [id number] [facility] 12-12-2023 Note [facility] SURGERY Clinical Discharge Summary PERSON INFORMATION Name CHINMAY KNIGHT Age 48 Years 1975 Sex FEMALE Language Russian PCP Provider, None Marital Status Other Med Service Pain Management Surgery Acct# Arrival 12/12/2023 11:37:50 Visit Reason LUMBAR PAIN Acuity LOS 002 02:44 Address: [address] [facility] [address] Comment: PROVIDER INFORMATION VITALS INFORMATION Vital Sign [...] Dose 81 m (more content not included)... [facility] 12-11-2023 Note [id number] The history of present illness has been reviewed. There are no changes document. [Electronically Signed on: 12/12/2023 11:54 EDT] MURALI WATERMAN MD [Verified on: 12/12/2023 11:54 EDT] MURALI WATERMAN MD [Transcribed on: 12/11/2023 13:21 EDT] [facility] 12-09-2023 Procedure note [facility] 11-03-2023 Miscellaneous Notes Please sign and route. Thank you CAITLIN 11/28/22 - Letter mailed documented in this encounter [facility] [employer] [facility] 11-03-2023 Telephone encounter Note Please sign and route. Thank you CAITLIN 11/28/22 - [facility] 10-09-2023 Miscellaneous Notes Received call from [facility] unsure how a refill was sent with [facility] context, she is a patient of [facility]. OV 11/28/22 CBC and CMP 09/15/22 Labs pended, message sent ot patient in mychart Lab work needs diagnosis. Thanks. 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 OV 11/28/22 CBC and CMP 09/15/22 Labs pended, message sent ot patient [facility]chart [facility] 10-09-2023 Telephone encounter Note Lab work needs diagnosis. Thanks. 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 09-01-2023 Note Patient Education Ma terials Follows:and [...] is treated with medicine. Medicines may be etkz-ovp-xkdcbme or prescription. You may be told to use one or more of the following: ? Medicine that is taken by mouth (orally). ? Medicine that is applied as a cream (topically). ? Medicine that is inserted directly into the vagina (suppository). Follow these instructions at home: ? Take or apply qusg-sao-vdlxino and prescription medicines only as told by [...] is treated with medicine. Medicines may be cmnq-utt-wobvdpz or prescription. ? Take or apply fzjj-gom-oslkhez and prescription medicines only as told by [...] provider. Document Revised: 05/21/2021 Document Reviewed: 05/21/2021 [employer] Patient Education ? 2022 Compound Time. [facility] 08-15-2023 Miscellaneous Notes pcp name on rx. Sending to pcp office for refill. documented [facility] this encounter [facility]23 Telephone encounter Note pcp name on rx. Sending to pcp office for refill. [facility] 07-25-2023 Note Education Materials Endocrinology Diabetes [...] Carrots. Green beans. Tomatoes. Peppers. Onions. Cucumbers. [place] sprouts. Grains Whole grains, such as whole-wheat or whole-grain bread, crackers, tortillas, cereal, and pasta. (more content not included)... [facility] 07-21-2023 Note Education Materials Orthopedics Foot Sprain [...] on your foot. General instructions ? Take qqle-dgg-fycsftc and prescription medicines only as told by your health care provider. ? When you can walk without pain, w (more content not included)... [facility] 04-03-2023 Miscellaneous Notes Images from the original note were not included. documented in this encounter [facility] 04-03-2023 Telephone encounter Note Images from the original note were not included. [facility] 08-09-2020 Note Encounter Department : [facility] Progress Notes by REMBERTO Mcclellan at 08/09/2020 3:00 PM Author: REMBERTO McclellanService: -Author Type: Nurse Practitioner Filed: 08/09/2020 4:11 PMEncounter Date: 08/09/2020tatus: Signed Singing Messenger: REMBERTO Mcclellan (Nurse Practitioner) Chinmay Knight [address] [facility] [address] : 45 y.o.: 1975Phone: (home) Encounter Date: 08/09/2020 Assessment Assessment and Plan: ICD-10-CM 1.Essential hypertension U87iieppjtqfk tartrate 37.5 mg Tab CBC W/DIFF Comprehensive Metabolic Panel Diagnoses and all orders for this visit: Essential hypertension (Primary) (Chronic) - metoprolol tartrate 37.5 mg Tab Dispense: 30 tablet; Refill: 6 - CBC W/DIFF - Comprehensive Metabolic Panel Will increase patient metoprolol to 37.5mg and have patient call in 2 week with an update. Will draw some labs in the office today. [facility] Evaluation as of 08/09/2020: -Determined Barrier: Inadequate [...] at visit Current Outpatient Medications Ordered in [facility] MedicationSigDispenseRefill -hydroCHLOROthiazide (HYDRODIURIL) 25 mg tabletTake 25 mg by mouth 2 times a day. -lisinopriL (ZESTRIL) 40 mg tabletTake 40 mg by mouth daily. -metoprolol tartrate 37.5 mg TabTake 37.5 mg by mouth 2 times a day.30 tablet6 -topiramate (TOPAMAX) 25 mg tabletTake 50 mg by mouth daily. No current Epic-ordered facility-administered medications on file. No Known Allergies [...] necessary. Electronically Signed by: Landy SR 08/09/2020 [facility] 08-09-2020 Note Encounter Department : [facility] Progress Notes by REMBERTO Mcclellan at 08/09/2020 3:00 PM Author: REMBERTO McclellanService: -Author Type: Nurse Practitioner Filed: 08/10/2020 9:48 AMEncounter Date: 08/09/2020tatus: Signed Singing Messenger: REMBERTO Mcclellan (Nurse Practitioner) Please inform patient that her labs are all normal. Please inform her that her kidney function is back to normal [facility] 08-09-2020 Note Encounter Department : [facility] Progress Notes by Maci Holden CMA at 08/09/2020 3:00 PM Author: Maci Holden CMAService: -Author Type: Supervisor [employer]ing [employer] P[employer] Filed: 08/10/2020 12:44 PMEncounter Date: 08/09/2020tatus: Signed Singing Messenger: Maci Holden CMA (Supervisor Buffing And Pasting) Left for patient with results and advised to return call with questions or concerns. [facility] Evaluation note No assessment inform ation available [facility] Work Phone: Evaluation note Diagnosis Primary hypertension Unspecified essential hypertension Combined systolic and diastolic congestive heart failure, unspecified HF chronicity (CMS-HCC) Acute combined systolic and diastolic congestive heart failure (CMS-HCC) Cardiomegaly [facility] Primary hypertension Unspecified essential hypertension 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) ASCVD (arteriosclerotic cardiovascular disease) Unspecified cardiovascular disease Dyslipidemia Other and unspecified hyperlipidemia [facility] Diagnosis Encounter for screening mammogram for malignant neoplasm of breast- Primary [facility] Diagnosis 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)- Primary Occlusion of right radial artery (CMS-HCC) Embolism and thrombosis of unspecified artery [facility] Diagnosis Primary hypertension- Primary Unspecified essential hypertension Left ventricular failure (CMS-HCC) Left heart failure 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) Shortness of breath Acute systolic congestive heart failure (CMS-HCC) Acute on chronic HFrEF (heart failure with reduced ejection fraction) (CMS-HCC) [facility] Diagnosis Cardiomyopathy, unspecified type (CMS-HCC)- Primary [facility] Author Natalie Garcia [facility] December 09, 2023 12:25pm Note Date/Time December 09, 2023 11:55am [facility] [address] [place] [address] Gastroenterology H&P Signed Patient: Chinmay Knight MR#: [id number] : 1975 Acct:[id number] Age/Sex: 48 / F Adm Date: 4 Loc: Room: Type: [facility] Attending Dr: Natalie Garcia DO Copies to: Natalie Garcia DO Claudine Hernadez PURE CULTURE OPERATOR~ Date of Service: 12/09/2023 HISTORY & PHYSICAL: [...] signed by Natalie Garcia DO> 12/09/23 1225 [facility] Work Phone: InstructionsNot on filedocumented [...] Unknown Advance Directives No Advanced Directives Records Found Advance Directive Response Recorded Date/ Time Advance [...] Admit Date Unknown March 15, 2024 8:42pm Chief Complaint Admit Date Unknown March 15, 2024 8:42pm Unknown June 10, 2024 3:2 2pm Additional Source Comments INFORMATION SOURCE (unrecogn ized section and content) DATE CREATED AUTHOR 08/12/2020 [facility] DATE CREATED AUTHOR 'S ORGANIZ ATION 07/11/2022 [facility] DATE CREATED AUTHOR 'S ORGANIZ ATION 07/30/2022 [facility] DATE CREATED AUTHOR AUTHOR'S ORGANIZ ATION 06/16/2023 [facility] DATE CREATED AUTHOR AUTHOR'S ORGANIZ ATION 01/08/2024 [facility] DATE CREATED AUTHOR AUTHOR'S ORGANIZ ATION 04/10/2024 [facility] DATE CREATED AUTHOR AUTHOR'S ORGANIZ ATION 04/13/2024 [facility] DATE CREATED AUTHOR AUTHOR'S ORGANIZ ATION 05/05/2024 [facility] DATE CREATED AUTHOR AUTHOR'S ORGANIZ ATION 06/13/2024 [facility] Care Teams (unrecognized sec tion and content) Team Status: Active Member Role Status Dates Claudine Hernadez NP-C Primary Care Provider Act casey Team Status: Inactive Member Role Status Dates Natalie Garcia DO Attending Provider Active St art: November 06, 2023 End: November 06, 2023 Claudine Hernadez NP-C Primary Care Provider, Referring Provider Active Start: November 06, 2023 End: November 06, 2023 Team Status: Inactive Member Role Status Dates Claudine Hernadez NP-C [...] Provider Active St art: September 29, 2023 Team Status: Inactive Member Role Status Dates Khushbu Hernandez DO Attending Provider Active Start: March 15, 2024 End: March 15, 2024 Formula Mixer Relationship Specialty Start Date End Date Josi Ba MD [address] [place] [place] [address] PCP - General Internal Medicine 09/12/22 Formula Mixer Relationship Specialty Start Date End Date Josi Ba MD [address] [place] [address] PCP - General Internal Medicine 09/12/22 Formula Mixer Relationship Specialty Start Date End Date Josi Ba MD [address] [place] [place] [address] PCP - General Internal Medicine 09/12/22 Formula Mixer Relationship Specialty Start Date End Date Josi Ba MD [address] [place] [address] PCP - General Internal Medicine 09/12/22 Formula Mixer Relationship Specialty Start Date End Date Josi Ba MD [address] [place] [address] PCP - General Internal Medicine 09/12/22 Formula Mixer Relationship Specialty Start Date End Date Josi Ba MD [address] [place] [address] PCP - General Internal Medicine 09/12/22 Formula Mixer Relationship Specialty Start Date End Date Claudine Hernadez, MANAGER POKER-PURE CULTURE OPERATOR [address] [place] [id number] PCP - General Nurse Practitioner 01/06/24 Formula Mixer Relationship Specialty Start Date End Date Claudine Hernadez MANAGER POKERMARKELL [address] [place] [address] PCP - General Nurse Practitioner 01/06/24 Formula Mixer Relationship Specialty Start Date End Date Claudine Hernadez REMBERTO [address] [place] [address] PCP - General Nurse Practitioner 01/06/24 Team Status: Inactive Member Role Status Dates Kerri Varela PA-C Attending Provider Active Start: June 10, 2024 End: June 10, 2024 Goals (unrecognized section and content) Goals may be documented in a n alternate sectionGoals may be documented in an alternate section Reason for Visit (unrecogniz ed [...] BE BASED ON THE PRIMARY CLINICAL RECORDS. [employer] provides no warranty or guarantee of the accuracy or completeness of information in this document.
[2024-07-01 10:22] LABS: Basophils Absolute Auto 0.1 10^3/uL (0.0-0.1); Basophils Percent Auto 0.7 % (0.2-2.0); Eosinophils Absolute Auto 0.3 10^3/uL (0.0-0.7); Eosinophils Percent Auto 2.9 % (0.9-7.0); Hematocrit 45.9 % (36.0-48.0); Hemoglobin 15.3 g/dL (12.0-16.0); Immature Granulocytes Abs Auto 0.04 10^3/uL (0.00-0.03); Immature Granulocytes Pct Auto 0.4 % (0.0-0.5); Lymphocytes Absolute Auto 2.4 10^3/uL (1.2-3.8); Lymphocytes Percent Auto 22.7 % (20.5-60.0); Mean Corpuscular HGB Conc 33.3 g/dL (29.9-35.2); Mean Corpuscular Hemoglobin 30.5 pg (26.7-34.0); Mean Corpuscular Volume 91.6 fL (81.0-99.0); Mean Platelet Volume 9.9 fL (9.5-13.5); Monocytes Absolute Auto 0.6 10^3/uL (0.3-0.8); Monocytes Percent Auto 5.8 % (1.7-12.0); Neutrophils Absolute Auto 7.1 10^3/uL (1.4-6.5); Neutrophils Percent Auto 67.5 % (43.0-75.0); Platelet Count 288 10^3/uL (150-450); Red Blood Count 5.01 10^6/uL (4.20-5.40); Red Cell Distribution Width 13.2 % (11.0-15.0); White Blood Count 10.5 10^3/uL (4.0-11.0)
[2024-07-01 11:15] LABS: Alanine Aminotransferase 23 U/L (14-59); Albumin Level 3.8 g/dL (3.4-5.0); Alkaline Phosphatase 101 U/L (46-116); Anion Gap 10.5; Aspartate Amino Transferase 14 U/L (15-37); BUN Creatinine Ratio 14.6; Bilirubin Total 0.3 mg/dL (0.2-1.0); Calcium 9.3 mg/dL (8.5-10.1); Carbon Dioxide 29.1 mmol/L (21.0-32.0); Chloride 104 mmol/L (98-107); Chol HDL Ratio 3.6; Cholesterol 189 mg/dL (<=200); Estimated GFR (African America 56 (>=60 mL/min/1.73m^2); Estimated GFR (Non-African Ame 46 (>=60 mL/min/1.73m^2); Free T3 2.82 pg/mL (2.18-3.98); Globulin 3.8 g/dL; Glucose 199 mg/dL (74-106); HDL Cholesterol 52 mg/dL (40-60); Potassium 3.6 mmol/L (3.5-5.1); Sodium 140 mmol/L (136-145); Thyroid Stimulating Hormone 1.682 uIU/mL (0.358-3.740); Total Protein 7.6 g/dL (6.4-8.2); Triglycerides 197 mg/dL (<=150); VLDL CHOLESTEROL 39.4 mg/dL
[2024-07-01 11:41] LABS: Estimated Average Glucose 166 mg/dL; Glycohemoglobin A1C 7.4 % (4.5-6.2)
[2024-07-02 03:07] LABS: Insulin 37.1 uIU/mL (2.6-24.9)
== END 2024-07-01 09:49 | disposition home or self-care (01) ==
LOC: LAB 09:52
PROVIDERS: PCP Nurse Practitioner Family; Visit Provider Nurse Practitioner Family
DX: E11.9 Type 2 diabetes mellitus without complications (principal)
CPT/HCPCS: 36415; 80053; 80061; 82306; 83036; 83525; 83540; 84436; 84443; 84481; 85025

== ENCOUNTER 2024-09-25 01:11 | Emergency (ER) | payer MEDICAID, SELFPAY ==
[2024-09-25 01:15] VITALS: PULSE 84; TEMP 36.6; O2SAT 98; BMI 39.3
--- OUTSIDE RECORDS SUMMARY | 2024-09-25 01:19 | XMS_ITS | CCD ---
Author Organization [facility] Care Team Providers Care Access Control Specialist Name Role Phone PIERSON EDILSON, EDILSON~[phone] PIERSON Attending Unavailable PIERSON EDILSON, EDILSON~[phone] PIERSON Primary Care Unavailable PIERSON EDILSON, EDILSON~[phone] PIRESON Attending Unavailable PIERSON EDILSON, EDILSON~[phone] PIERSON Primary Care Unavailable PIERSON EDILSON, EDILSON~[phone] PIERSON Primary Care Unavailable PIERSON EDILSON, EDILSON~[phone] PIERSON Attending Unavailable MIRELA, ALVA Primary Care [...] LAGOS Attending Unavailable GELACIO FRAZIER Consulting Unavailable WADNY, DR ISACC Gao Attending Unavailable WANDY, DR ISACC Gao Admitting Unavailable MIRELA, ALVA Primary Care Unavailable DR ISACC SABA Consulting Unavailable LIOR JIANG Consulting Unavailable MIRELA, ALVA Primary Care Unavailable DR SHARRI BERNARDO Attending Unavailable [place], DR SHARRI Briggs Admitting Unavailable DR LIZANDRO PENDLETON V Consulting Unavailable DR SHARRI BERNARDO Consulting Unavailable LINDSEY, ROBERT Consulting Unavailable EDDY MELGOZA Consulting Unavailable MARKER ., DR BRITO Admitting Unavailable MARKER ., DR BRIOT Attending Unavailable ZIEBER, DR JT Gao Consulting Unavailable MIRELA, ALVA Primary Care Unavailable MARKER ., DR BRITO Consulting Unavailable MARLON ., PENNY Attending Unavailable MARLON ., PENNY Admitting Unavailable MIRELA, ALVA Primary Care Unavailable MARLON ., PENNY Consulting Unavailable RICHIE, OSWALDO Consulting Unavailable MARKER ., DR BRITO Consulting [...] MUHAMID M Primary Care Unavailable TYRON WAGNER W Referring Unavailable THAO, MUHAMID M Primary Care Unavailable PECLANDONPATYRON DURAN W Referring Unavailable THAO, MUHAMID M Primary Care Unavailable Satya, DRUM SANDER OFFBEARER-C Claudine Isabell Primary Care Provide r DO Natalie Garcia Attending Provider DO Natalie Garcia Attending Provider DIMITRIOS Hernadez-Coleen Staples Isabell Primary Care Provide r DEWAYNE Hernadez Referring Provider MD Fletcher Flores Attending Provider TRAVIS BOWSER Attending Unavailabl e THAO, MUHAMID M Referring Unavailable KASTOR, CLAUDINE C Primary Care Unavailable Marker Khushbu RAYO Attending Provider [phone] Lauren CLAROS, Kendrick Reaves Attending Unavailable Lauren CLAROS, Kendrick Reaves Attending Unavailable [place] OVERNIGHT HOUSEPERSON-LANRE, Lesley Roldan Attending U salina [place] OVERNIGHT HOUSEPERSON-INFECTION CONTROL SPECIALIST, Lesley Roldan Attending U salina Waterman MD, Murali Kaplan Attending Estee Waterman MD, Murali Kaplan Attending Estee Lanza APRN-LANRE, Lesley Roldan Attending U [place] Waterman MD, Murali Kaplan Attending Estee perry Provider, None Primary Care Unavailable Travis Bowser Attending Unavailabl e NickTravis rodriguez R Admitting Unavailabl e Provider, None Primary Care Unavailable Thao Santana Attending Unavailable Thao Santana Admitting Unavailable Provider, None Primary Care Unavailable Romeo Resendez Attending Unavailable Romeo Resendez Admitting Unavailable Provider, None Primary Care Unavailable [place], Lesley M Attending Unavailable [place], Lesley M Admitting Unavailable Provider, None Primary Care Unavailable [place], Lesley M Attending Unavailable [place], Lesley M Admitting Unavailable [place], Lesley M Attending Unavailable [place], Lesley M Admitting Unavailable Provider, None Primary Care Unavailable Provider, None Primary Care Unavailable [place], Lesley M Attending Unavailable [place], Lesley M Admitting Unavailable Provider, None Primary Care Unavailable KINDLisa, MURALI F Attending Unavailable KINDL, MURALI F [...] Care Provider Claudine Jay Primary Care Provider [phone] Unavailable Primary Care Provider Unavailabl e Khushbu Hernandez DO Attending Provider [phone] Kerri Varela PA-C Attending Provider [phone] Ly, Natalie L Admitting Unavailable Ly, Natalie L Attending Unavailable KastorClaudine Isabell Primary Care Unavailab jeet MarkerKhushbu Yoly Admitting Unavailable Marker, Khushbu Yoly Attending Unavailable GresmoothfrankAlexaie Admitting Unavailable Gresmoothfrank, Kerri Attending Unavailable MarkFletcher summers Admitting Unavailab le MarkFletcher mcneil Attending Unavailab le [facility] Unavailab le Ly, Natalie L Admitting Unavailable Ly, Natalie Gonzalez Attending Unavailable Kastor, Claudine Gonzalesine Referring Unavailab le Kastor, [facility] Unavailab le BECKMANCATHIEJESSE Referring Unavailable BECKMAN, JESSE Attending Unavailable Allergies Allergy Classification Reported Allergen(s) Allergy Type Date of Onset Reaction(s) Facility (20 sources) Codeine; Translations: [CODEINE] Drug Allergy 1 Anaphylaxis [facility] Repository (2 sources) Cephalexin; Translations: [Keflex] Drug Allergy 2 [facility] Repository (20 sources) Cephalexin; Translations: [CEPHALEXIN] Drug Allergy 2 Hallucinations [facility] Repository (1 source) ALLERGIES NOT ON FILE; Translations: [ALLERGIES NOT ON FILE] Propensity to adverse reactions (disorder) [facility] Repository Medications Current Medications Medication Drug Class(es) Dates Sig (Normalized) Sig (Original) [id number] 200 actuat albuterol 0.09 mg/actuat metered dose inhaler (19 sources) beta2-Adrenergic Agonist Start: 05-12-2022 take 2 [...] 04/03/2023 Active famotidine 20 mg oral tablet (19 sources) Histamine-2 Receptor Antagonist Start: 06-14-2022 take [...] 24 hr tablet Indications: Cardiomyopathy, unspecified type ([facility]) TAKE 1 TABLET BY MOUTH ONCE DAILY 90 tablet 3 02/03/2024 Active losartan potassium 25 mg oral tablet (4 sources) Angiotensin 2 Receptor Polo Start: 01-06-2024 take 1 tablet by mouth in the morning losartan (COZAAR) 25 mg tablet Take 1 tablet (25 mg total) by mouth in the morning. 90 tablet 2 01/06/2024 Active osmotic 24 hr metFORMIN hydrochloride 500 mg extended release oral tablet (4 sources) Biguanide take 1 tablet by mouth [...] 04/03/2023 Active nystatin 100 unt/mg topical powder (19 sources) Polyene Antifungal Start: 08-28-2022 nystatin (MYCOSTATIN) [...] 05/07/2023 Active ondansetron 4 mg oral tablet (19 sources) Serotonin-3 Receptor Antagonist Start: 07-30-2022 take [...] 12:00am promethazine hydrochloride 12.5 mg oral tablet (19 sources) Phenothiazine Start: 11-08-2021 take 1 tablet by mouth every six hours as needed for nausea promethazine (PHENERGAN) 12.5 mg tablet Indications: Migraine without status migrainosus, not intractable, unspecified migraine type , Nausea Take 1 tablet (12.5 mg total) by mouth every 6 (six) hours as needed for nausea or vomiting. 30 tablet 11/08/2021 Active sacubitril 24 mg / valsartan 26 [...] the morning 30 tablet 10 01/02/2024 Active Completed/Discontinued Medications Medication Drug Class(es) Dates Sig (Normalized) Sig (Original) rosuvastatin calcium 10 mg oral tablet (20 sources) HMG-CoA Reductase Inhibitor Start: 11-06-2023 take 20 mg by mouth once daily Rosuvastatin Active 20 MG PO Daily November 06, 2023 12:00am Start: 01-14-2023 End: 08-31-2024 rosuvastatin (CRESTOR) 10 mg tablet Indications: Primary hypertension , 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) , ASCVD (arteriosclerotic cardiovascular disease) , Dyslipidemia TAKE TWO (2) TABLETS BY MOUTH EACH MORNING *LAB WORK NEEDS COMPLETED* 180 tablet 08/31/2024 Active Problems Active Problems Problem Classification Problem Date Documented Date Episodic/Chronic Abdominal pain (8 sources) Unspecified abdominal pain; Translations: [Epigastric pain] Onset: 06-14-2022 Episodic Aortic and peripheral arterial embolism or thrombosis (19 sources) Thrombosis of arteries of upper extremity; [...] Chronic Coronary atherosclerosis and other heart disease (20 sources) Arteriosclerotic vascular disease; Translations: [Atherosclerotic heart disease of [place] coronary artery without angina pectoris] Onset: 09-12-2022 09-14-2022 Chronic Diabetes mellitus without complication (1 source) Prediabetes; Translations: [PREDIABETES] Onset: 07-16-2022 Episodic Disorders of lipid metabolism (20 sources) Dyslipidemia; Translations: [Hyperlipidemia, unspecified] Onset: 09-12-2022 09-12-2022 Chronic Esophageal disorders (19 sources) Gastroesophageal reflux disease; Translations: [Gastro-esophageal reflux [...] W/HEART FAIL] Onset: 07-16-2022 Chronic Mood disorders (19 sources) Depressive disorder; Translations: [Depression] Onset: 06-08-2018 11-08-2021 Chronic Nausea and vomiting (4 sources) Nausea with vomiting, unspecified; Translations: [NAUSEA WITH VOMITING UNSPECIFIED] Onset: 06-09-2022 Episodic Osteoarthritis (20 sources) Bilateral primary osteoarthritis of knee; Translations: [Unilateral primary osteoarthritis, right hip] Onset: 12-11-2015 09-18-2021 Chronic Other aftercare (1 source) Other longterm (current) drug therapy; Translations: [OTH PARTNER CURRENT DRUG THERAPY] Onset: 07-16-2022 Episodic Other and ill-defined heart disease (1 source) Cardiomegaly; Translations: [Cardiomegaly] 03-06-2023 Chronic Other connective tissue disease (1 source) Presence of artificial knee joint, bilateral; Translations: [PRESENCE ARTIFICIAL KNEE JNT BILAT] Onset: 09-20-2021 Chronic Other lower respiratory disease (1 source) Shortness of breath; Translations: [Shortness of breath] Onset: 01-06-2024 Episodic Other lower respiratory disease (8 sources) Dyspnea; Translations: [Shortness of breath] 01-06-2024 Episodic Other nervous system disorders (1 [...] Chronic Other nutritional; endocrine; and metabolic disorders (19 sources) Morbid obesity; Translations: [Morbid (severe) obesity due to excess calories] Onset: 06-08-2018 09-14-2022 Chronic Eva-; endo-; and myocarditis; cardiomyopathy (except that caused by tuberculosis or sexually transmitted disease) (1 source) Cardiomyopathy; Translations: [Cardiomyopathy, unspecified] 02-03-2024 Chronic Peripheral and visceral atherosclerosis (20 sources) Unspecified atherosclerosis of [place] arteries of extremities, other extremity; Translations: [Occlusion of artery] Onset: 09-30-2022 09-30-2022 Chronic Residual codes; unclassified (19 sources) Obstructive sleep apnea syndrome; Translations: [Obstructive [...] Documented Date Episodic/Chronic Fluid and electrolyte disorders (19 sources) Hypokalemia; Translations: [Hypokalemia] Onset: 09-13-2022 09-13-2022 Episodic Lymphadenitis (1 source) Nonspecific lymphadenitis, unspecified; Translations: [NONSPECIFIC LYMPHADENITIS UNS] Onset: 04-04-2022 Episodic Mood disorders (19 sources) Mood disorders Onset: 09-14-2022 09-14-2022 Other connective tissue disease (3 sources) Other specified soft tissue disorders; Translations: [OTHER SPEC SOFT TISSUE DISORDERS] Onset: 04-22-2022 Episodic Other connective tissue disease (19 sources) Pain in right arm; Translations: [Pain [...] Onset: 01-24-2022 Episodic Other non-traumatic joint disorders (19 sources) Pain in unspecified knee; Translations: [Pain [...] 04-24-2022 Episodic Respiratory failure; insufficiency; arrest (adult) (19 sources) Hypercapnic respiratory failure; Translations: [Respiratory failure, unspecified with hypercapnia] Onset: 06-09-2018 11-08-2021 Episodic Unclassified (1 source) COUGH, UNSPECIFIED; Translations: [COUGH, UNSPECIFIED] Onset: 05-11-2022 Unclassified (1 source) LOW BACK PAIN, UNSPECIFIED; Translations: [LOW BACK PAIN, UNSPECIFIED] Onset: 09-13-2021 Results Test Name Value Interpretation Reference Range Facility Office Visiton 07-14-2024 Follow-up visit [id number] Cameron Knighte 1975 F Date Provider Department Center 07/14/2024 JESSE MCGRAW ONC DCC No family history on file Level of Service:70782 [place] OFFICE/OUTPATIENT NEW LOW MDM 30 MINUTES Normal [facility] Urine Cultureon 06-10-2024 Bacteria identified Cx Nom (U) <9,000 colonies/ml mixed bacterial skin contaminants 2 Days PERFORMED BY: [facility] [address] [place] [address] PATHOLOGIST INDOOR PLANT TECHNICIAN WEN DAVIS M.D. Normal [facility] Comment on above: Performed By: #### C UU #### [facility] [place] [address] Progress Note - Provideron 0 04-12-2024 Progress Note - Provider [phone] [id number] [facility] Coding Summaryon 04-06-2024 Coding Summary HTMLBase 64 MnhxxytsBTe6tYl+PGhlY WQ+ZY5PBLEwO74ojDWfdH 8dS8NUOScAMrunIESYVYx YLlTvrlBpBE0cwWVoGJAk IC8+KS0gNXKrPayyfEAav 6I6lAK1E69dhw0nWXpznB N9NKKmOhRkraitf7bplTn 6IDcuNmluOyBt PXMdkQ09GPY2tF70Yv62z PPcwPOlc7rcaRn4IeCpOI LaAGK4uGzjQRzsr9NfINF wJ24lnSMyo4O4 CQNzzGzgaGBxVkVilKS0r P2kDCkgeopod3tdtcrwPx c1av39xRJxw8O3zFU5F0N vgfQ8COVnwUCa JhihbQDYcX8buyepk9gku coyFsYfPGWrWJk1WPn6TO KlyDpaLmJmJU74EQT5AYA rrrDrJ1RzPDIw jKinDuD2i7C5Ag8ZK2GYE qwjB3ICLBCPUBnikZG+PC 29yo83J3YnOpjbCxs8BCB aHSZ2dSN7lL4y BROqLKqvd7O8tIN4Q2Stu nKayu3aw5dnGJSqJEkmK6 5lqYOmv3N4MZFbfJI9XBT ytSpaXuNtzF67 Oyc+GEObwYmmn8PgAsiql 6tbq2vmoVq1AfgfDBMfye MzrHweXHW0i3DvGh1xQYC vcNI3zUI6wA7p CoMeBsZ3YFosD531MqFac MAsMujiV94aS8XxsZX+PH GlJvb4UUHawUkxFF0yQ5Z hZGRpbmctbGVm fLmwKV7jQQVnckdqUPHjb T7hNCXkO5o0JiOqJnL2QE azT8TmUNYfyghoOl07cH8 fYsXtGqK1GGic F6BbnzW3AEBfgQUnAYnnM SG6H71hj4G0AFFaNVAuKA W9bRP3yZ7liDuhmpzmnMI mdDsgdmVydGlj AEctNCzeS220HTJhxUakO kNvZGluZyBEYXRlOiAgMD EvMjEvMjAyNTwvdGQ+PHR cWJW5qHubAAGf sABrRWzyUr9xlGaitTglG P1gLPDuwpulZNDltF2uKT IgtNYquKwhAZ8pBMRabjo ix722QnFfNYQ1 JSHtiNCyA2KyeV2kBoStE WAbZLZkL4LvyOSzFCbnF6 91CClvYcY8IKMsbhTaL4Z sLWFsaWduOiB0 r2Z4Ta6Ml7WearznF4Yvb FPyXyMrTpdlBSc8G3UtMq wvdHI+VG15FTTeXA39IZe 9NKT4rFysZNqg JTOmZ2BpfN7qMiJxVDZvD GRkOyc+PHRhYmxlIHdpZH RoPScxMDAlJyBzdHlsZT0 tTr6kVQVkNNTz lCtocPJeNqAho9hnTYCxN IlhFI0pfDpeQ1PfiKL3YY Zwc3g1En36T45nW0DezOK +HFNhnNP7cBD5 uZ6kBtHyLmI6QTqxE133A qCupSZmSihwm3mod5qeaR f6SoA8LCIgtjHlxJusTEG 3j6JzMb52K95q IHdpZHRoPSIxNSUiIHZhb Udbnb9ysJ0fJe3+PGNvbC Q3xVI1bT3mNyCzDwK2EXp bH479AfWoeESy Wtnrx4voa0cgtQe0ZyUnH YFqqmKudVmbIWT5j1HiGu 87F5ZogEapy6NiFsh0pu0 3lLLef0K3iMW6 V8XlVJLntyowzPJtsTyoA N3zJLJodnupLRTtyD6zPZ ZzH8q6HiNoYsH8JYkwA6Q eniO0YKRczQKy HSHwcLZFzD9aihidk7eom cetNgSzATEhZTz8MRh4DM EnbRfkZgEoZSW7RoC9ZJA 1gWMwaB2mdXwx bylxqN2zPoe+XDH2zLNut NGANN8dIxoynIE+PHRkIH Y4tWgbLJraSGPrmO7lOOP iJ6w7HkHhYeA5 RPmgT0EzagC4MOCjvFMtJ NPjcIVAkT3lcutpk1nnrb dsEzIzMPRnXMu8XSu3GDS saWduOiBsZWZ0 PaM3JEP4cAJleS4vaIfml ehkeA2wQee+QmlydGggRG O0WTe9Y8NpKxk8WYIcuXd tSJ3kcHRdKMfy Vb6jwOzlnQktCQ7kARHxn imoy084XdOec3ywPNDpyW UwQVkoDCU8Z01cj5P9WLO yYHPaPSY0rLT1 sG5qkWjjyztbbMAxhFopp qRpjOjnJPqsNKktQ326QV IemTrbYqSzAGl0K6WaVgz 0AFFzlQqgDN0p mBWvTKgfVa9lkXawlYyvC V1qLLYehxvmi831CpJks1 ntSSPdqCUtSNljKZD9N77 xg2H6CIUqURBo GHC2vIX3hQ0qiWxsnelhz GVmdDsgdmVydGljYWwtYW huM934NZVrzUqxZgVzlVm 8Q4PuSyl3ZBZp iGisJX2xqROyNOpaYc2tj CntfFnvRN7gTWRkkiyly6 07EjRfe3xqAAHrsAWqDGd tVOY4V09lw8V7 ZMUnEBFuCHW7xFH6sS2ay GlnbjogbGVmdDsgdmVydG cnDNsnMStkS174YVXqrDj nPlBhdGllbnQg PMsnYSq2Z8YwWuwamQL+P P29LETkKF51yUXayCDgw6 atnCt2DjBdOCBiHFT1qIa tHSxia7PwTNBw K53txNRdr3M1EGSjpYkxp HJvSqMceDV8nE6lOMipmr anw4mmmojjVwnlc6qdvk7 6cA99T84dNPwq ZHRoPSIzMCUiIHZhbGlnb g5ecB8yMz0+CPWgeSP6oN S7wM7jCRWtZxJ5SHwdV26 9InRvcCIvPjxj z0lyj9aoeEp6WeP2YDDup lCfiPpfERX4f9QoFp10C5 9sIHdpZHRoPSIyMCUiIHZ hyLkegx9hhW0y Ii8+KWVfiMT9aGE9lM5uL vTiPoI3LTgcG247EvMonS NsVqybU35eF3HyjBK+PHR gVpl1NETlvKbk RN3niESsDGokOk0wGAO4X nRuFyOlQZbwE5WlCGXtaq nxnauncZV7RRUtRBFprK3 3By0nhNubXHHs pWAJbK1wyqtwk8rgybghB cMzYGBmRHh5ZRl3BGXteL erVwIcOWO8CpE6FTJ6uYZ kfE9hkDkkirbd qZ7fG3FyBOVyxnwbTu39k A4uUbGhAnK8DXhmPpz+SE GEGB9CZTXCDYRYJCZuLVY DIU56PX78sOEk j5W5jGD7K4VcEZKgklygk hgmrJF1SAFmKKGthS74zJ TrRLozZo2lb4I7a599HZL jUPEluX77Aq0u fLbfTTVdgFGQuD9yzqhgc 7mrjtlpOkQpBNVoPHl0MT d3ZPZkvBkkQnYlWFB6EqX 2MUJ5cRYjwF8o kBrwpfbchD9sYzp+MDMvM TEfXDj1LHlxbLO+PHRkIH J2qOzmUXwxTYQtnU1sCDA gC7f4HbXqTzB6 MLfdI7TxLEXechgaYa73q P2mXbOiJsF9AIeoB7Ychy B4PMSodRRbFQoyFTB9B37 ay8C1TGHfBSPe IVG3uEX6jN2smKzipgodr GVmdDsgdmVydGljYWwtYW vkO875KPAnxGdsGuGuBFz uGQIcVN90CI36 oBBwf9P6hPJ8A7EcDHOlk dwabbiuyRZ2TVGpPWGdlN 60dNXiNRcmRk0fi5P6d57 4FFZxYUJkiJ77 Do5bkJqsUSEfnVXRsA2qg kyqi4uqcaruGlUuODSsMY k5PYg0JZWeqMtlFiOfRQZ 3OxM3DWO9mSOg lP8bwJbgpilxvC6oOpb+R jSRFOfNRM60EV45uFCuc4 O6wNA8M3XcOTVhhnutzeb uoYM1JRTuKVCi cD75nNGmUNzwJz5rk3A1v 814VEMbCHVhjF74Fd8qiR iiBAKjyYBFtG8fsrvto0f vcjogIzAwMDAw LCj6FZj9YMStxRxcZsYzJ WA2TvH8CQV5bVAjvT3jqD ujzdklqL0bJge+O9R5W2V kPjwvdHI+PC90 HJTnLY66zHPbfIOfh6vel Bo4IuHcIEDnKSS0wFthXD frf6IgBLYlA48hmFRfm7X 6IGNvbGxhcHNl YhYwoEE5wP7dOZmykenas 1oztosrGpupr7yfhy91mS 21Y38hGGwyGWFqWLUfWEM xSMTprYmdse4l fM8yMz5+LGMroEM1lMF2t X5yOsCdMgU4KLmbN385Nn SjqMZeFcytm4anv2bhnTf 9IjIwJSIgdmFs pWqxDSO7i3ZdYe84R34tK HdpZHRoPSIyMCUiIHZhbG icdv0pjU7iSb0+XQ7fs0k tup08bZ17fRF+ EHQeYWK8rKdzHNjlCWJig B4uCZvyFeZ8LNPgDpFajG 29uTVwJOomZt3eoFescZv oNM8rTTOnorij k981DeSlp7olZSPkyVAoT WmyGRZ7V86bm3Q9VBMmUP ZjKWQ9uHO4uJ7ynFelxug gbGVmdDsgdmVy wMexZQmrUCkjZ119NWFsz JbsMzDlkPPwA5rqobGVGG 1lOjwvdGQ+TCUbOBZ1jFi aPOhtLRYvdM1q GSPkY7a8QrNrNjQ1BUpwU 8QnkxQ2IDMqiGNjYMFzeY BKuK1btrpar3cynrknKxT aXWByAAr4QVk5 NDRgqHeyWmTgTUA8UwX9E VV9yEYxhO2vgMbmnejqwX 9wOyc+RklOOjwvdGQ+PHR pFCL1eVbiKUls HXGiqN8xHYYhT9f4GjPfE lL3UNwyG1UjaxY9OWEkwM NzRYNoxBGFkQ9ylvfqn5i vcjogIzAwMDAw SIt3NHr7ZIZekLadEtLlM VC2KeK0PWM7zOFeeJ3ggM mmwonmcR8dAea+TVJOOjw vdGQ+PHRkIHN0 bRpmCYkmGSQlcB7wBJKtP 2q2SjFvJiL5KHrqQ1Xmrw T5FVDzkJFuZONbfHIDuI7 gukzye9qnfvbc TwCsKTRxLUz4UXb1ELLha FbuXkCuFDC0CfH6OXC7iW BfqN0wtPeblhtsoZ9uFaq +JQD6XLX3BI07 ZS42F1WsZwfvcVIxvRL+P HRhYmxlIHdpZHRoPScxMD KqFgVgjEfoAY8gYo0rCPF yLWNvbGxhcHNl OiB (more content not included)... Normal [facility] S. pyogenes Org specific cx Ql (Unsp spec)Ordered By: Khushbu Marker on 03-15-2024 Group A Streptococcus Culture Abnormal [facility] Strep A Culture Onlyon 03-15 Strep A Culture Only Strep A Only Cult No Group A Beta Streptococcus Isolated 2 Days ORGANISM: Ana albicans (O:CANALB) Quantity of Growth Moderate Growth PERFORMED BY: [place] [address] PATHOLOGIST INDOOR PLANT TECHNICIAN WEN DAVIS M.D. Normal [facility] Comment on above: Performed By: #### [facility] #### [address] Coding Summaryon 03-08-2024 Coding Summary [facility] MmvsnclkXWs8dHn+PGhlY WQ+RR7FJOPzO59eoUNeuW 0aG3QDCAeZLefhNSARXOc PJmTfueLzRQ0gzDSfJDXv IC8+LM9aPMHbXnpksYVch 8B4nGX9L85wbl5xJYngjA L6HOCmFnHueoxcw0xdlQr 6IDcuNmluOyBt SCHmwI51BHE3iU45Wq50u OEqbMKhr3vxcRp1ZkEbMR JfXGO1hHpcHKuwp7KxANU rJ83pfBVuk0C5 YAHrnZsrkQBrQcWatJC6c A3rLFmbkogop8xwuyjgJz x7qw03hELfq0Z5wRD8M3P cyhB2ZIPliPLx FfbptJZQbR2lytmzz9gao lgbUbYjRJDqRSo4NWo5BH WuyRgmEgAyRI37VTQ7ZKX cesVlT9LoNYSr bXexXbB7x7Q1Nz4DX4MHB vnsL8LVZWRBHSandET+PC 76oa56T7EvSoluGpa3WQP aLWX9mEG3iI5u DNSeIMciz6G7pNW5H3Kmk hTrxk7mp1lzFUXdFDweJ3 7wyDYre8I8XCVelCJ4UNK pzJofHrZgoP37 Oyc+XAXzqBgwy0QuLwdjb 1uux7msvNq0PtuaAFKrlg BpzPkmQXA5k0ThWw3iTBG upVD9tFR5wE5r SkMjZtL3KRuuM451LuIii HSiJlgkM35cZ8DiwZT+PH LnNbf7DTTqzWtfQW0iZ1Q hZGRpbmctbGVm qBckWP9iBCRaavbnNYWjd P1kDWRyH0w7KzIuAsN6GG pzP4OpUSKhhfxyIg85wU3 cAeNbFfT6PYxy E5VedcW9MIEhuNBrYNtuG QG1E44cd4Z8NHTmXTWrXQ H0hVL2sL7ghPjtjecdfRH mdDsgdmVydGlj AIbxFHybB506MXTnzKlaX kNvZGluZyBEYXRlOiAgMT IvMjMvMjAyNDwvdGQ+PHR pIJP0kHyaNVIk bPYxASuwYo6hoAgnbVaxE U0lSNMjurieKYXlrK8gMB TucVLbiBgtFU4gTLLayle yg797XeMoOVC2 PCDzwUStH1SayB5mFdQrE ZQyKQGtV3LdrPAzPIyoY5 20RHkcVcP0LCCwfxLlE1T sLWFsaWduOiB0 y7V7Lx6Im7ZxtczvR9Bua OAlUuIlIoadJMt3K4UmQk wvdHI+RU72FAGqHJ04ULo 0CMH2oEjfPXmh KKEfR0BewE3wRhLwEGYmB GRkOyc+PHRhYmxlIHdpZH RoPScxMDAlJyBzdHlsZT0 fCj9zACIwBEUr oYakiGHdJeKtp7ceGWNeK YdjYL6wiCktT1DutLT9GU Rem5o6Qa00U11yO0EcsOZ +UFYpoTN3qQI2 sB2xYbXoXjZ7DDizM606M eJloIKnLfttu3mcl1cdaB d5EmL5GXFedlYomJmkXFH 3a8WnNw71T51o IHdpZHRoPSIxNSUiIHZhb Qhddm5bhC7eSh2+PGNvbC X1vHQ1kG2kFuIkHaW2VVf uD156DwLwcPDa Ezceu8pty3uwfFj9ZaGnC OMcncHzcBxdVZL3u1ApNe 40Q3TsuIund6XwIir9tt8 6sULkj3Y1sQD2 S9GcHZRrpeefuCSqcPkvP X1uDNIobxxfBOIvbH2hWY YoW7u0KtPcQqZ3JQgmC1M fdcY5IFUplPGb HHGkhDXRgV8oaithb3dgn ixyIxPiEONfFJl7XGq0RQ NuqGlgZcTcTRL9QgP1NUU 0wEBvvW7myWie qqrxeN0kTbe+QUX6iPCiv CKJXQ2fLjmbcBY+PHRkIH A7gCvdCOesRYIggM9hBMU bM3y0EcKfYgU2 ICghQ3LzbkV5YGHegVUlR LHucZTXaS5lbkfip0baqj gxIrTnPXYbPFj0SRc6NSI saWduOiBsZWZ0 CuJ6EJN5eCWacM2gkSfwm gyrkR0tJrb+QmlydGggRG B9NHu3Z4YmTtp0SPHacLq jGY9giLHqTGvn Ho3jmHqfoWydMK8qWEJov iefp806SyUtq8tlUAQveK JjJLosNLD7X96dl3K1RIT fYBQlUOL6lHM7 rY7hzBzlzmqppGInrGymu aUcaSgvMNotHNuxZ455CX JikNobOtDhBPx3M7LjSfw 0OSCrwTrzBQ3b cEArWFjcZy7eqIipjByaR R8oKKCohavwz372IuYqi5 jeCFSbjUMbCHvlELL2B10 yd0I0PLRnKGXi SSN0rLO6aE7shGqkshhzn GVmdDsgdmVydGljYWwtYW ryN314NBGbzGzoRbDvkXe 1Q8BtOxw6IXOu jRwaBC5ptEFzXWbkCz6sd UphqEwkYK4aQFNcdjgce3 45LiUbf0paTEHiaSAsOZt kIDM7L04ek4G5 OFSiTFOiKIT3uVF5dI3bc GlnbjogbGVmdDsgdmVydG wgPGouCMnjG567AVKxzZt nPlBhdGllbnQg SKjvHBg2X6VwNickfSU+P C37IDWkQK21qLFoyBEdx8 idpTy3VaNuODJrTLX3mAc gUKzxh8WzMSRv X55xjIEsv2S8VXDvdAsbq AKlBpFfbKE4uH2fBBqmcz feq2nxwfuwJucts6ajor4 8bB69D23hMMlq ZHRoPSIzMCUiIHZhbGlnb c3keI3tCn2+EHKqvIE1dJ Q4gP6dGXYsKeV9QOixH57 9InRvcCIvPjxj g2uvq4vwvRi9TzN2BDVvv yRleRxbNEF5b0OkAf12Q1 9sIHdpZHRoPSIyMCUiIHZ whLsgqn7gaS9m Ii8+DLAndTF0mRW3oI7xV wWrQjE3ERtrT848DaIejU EeYqayJ46fK5PjjIK+PHR eQjm9UEMjmSjm GE9huHLbGExnBb3uKGC0M yMwMlGrLCzbS6NySSAnbj ajujbvhPV1RXCzRKZxuZ4 4Gt1zzYmfQUDc tMKMaA5fqqjuo3ycuwjgL jAyWPTkVMi0UTq8DTJqqU psLcVaPHN6QkK3DZX8tUE wtM9cvYreswsp gP1aT7QcLXLxaebnSg07l G9yRqSoJrL2XKayJwr+SE DMSD8YIXZXDXDCVNHeBQC EUW98KW06dIJb c2Q8kLB8L6SdDHWrglijw mosgAL8WNEtQFEhlI77bB YhSEuuLs8dy2M8j556DBS cGWPtdM72Zk8u sNzvQZTrxNHCiX0lazato 2wdsigqSsRkZJLzKRy4LO m4WBYviJwfDzKyDUY0QoR 5SWC2jKJztG4v zRuqcfbrdU6vCkb+MDMvM ZLeQWs9JYqirME+PHRkIH P8hQcwUUgtSXScmC0tZGM kK0m6BsXvCxA0 NCegW7VzTXEdjlthGf37q D5zTbHeZcR6TUbjR7Brlt W4PSLwzXHxLTvnRNE2S12 lq2I9VFAfIWHc HTJ6kCG6bG1lbSrqjfyic GVmdDsgdmVydGljYWwtYW inU028ICKvhUtxKwSiNUi fTCPkUF20PC35 kLOjd9G9xJQ4F5RvTPNyv qgtnjpmlVY8VBRkZMDtnH 54wWAyNXbqBt7xi6J3g43 6WWChFBQttI68 Of1feYwgJZLqmEEJpY6zb jzua8ftlugjXdCxITOjIT u3BHj0TKWqtJfqQzNnUED 7TdV7VMW5tEYt tE1ucEeiuqxgrV1tLam+R eNGCAxRLN30UX59lTUby5 U6eNW7P2QmGKBnsyzxurf unJV5SKTbRBKp rW45cDGgCGmgKj8sn6X6w 318AZVjRXOdzM26Dl3mnG oqGYWjjKLUbV4qepsxc9j vcjogIzAwMDAw YEl9EAe6ZSQdpGfsJsDjG RI3UsV4FSW4jSZpeN5ysT ypweucqI0sYxx+JHF7EFF 1fhwqooh8V8Vu PjwvdHI+IQ03XCUkMJ76w YPdaAXel9jzpKb3QwChPL OuPLE7nGxyDVxhu1WmWLK sQ47qbFOmj0K5 FPHirAohoSEiZsBiwQX1k U7dZNbijkspv6nmfutdBx bjm0frhq59aQ15M80vCJg pZHRoPSIzMCUi SXAjiGkvpk4cyD3xUd6+P XHhcDY4eYA8hN6pSjJvVo L2YGunI695QiGvfHBfJge pq8yhj1ndePx1 AtXuSHMeixRcvAirLYY5t 6TyFs69J35yPIsaYSUsUJ SbVGPcRDXmpUvfqd6xmA7 wIi8+SD0wb6lb jc65cN92sNN+QLQrWLK1q RfnKVswSZHhjQ1xEHmsIl M4LAGpUwMutB27rWYyGCc eZi8nnKkwaXam SA9vEXZewnaqe109FpEpa 2ehIFBdbYBbMVjcARE1S5 6hz8N9POWxCDZfFGQ4xOU 3oO4voAlwncbq bGVmdDsgdmVydGljYWwtY OeaE045KVDzqCyhOhTqyT EwL0ctppZUDE8xVvsgvIN +FGJuTYQ5pMat PGacSEGkbZ9oOCMoC1q4E oTjBoF1MSnmO9EkwdT0XB HlpJZgRUXegYIBoW7ueog ps8wrxgdxKeRa EJPlPNc6YHr0ZMPbhDreE xLvUJR2ZuW3PKC2uORpmT 6gaBvuxsjysU9zNon+Rkl OOjwvdGQ+PHRk SOF2zBorRGwzAVZkyD4tF VTiV6h5TfXhSjR0ZHonG2 NnynB7XOKprZBcAXOacZG VeY4fienjt2zc acvrLbNyKJOkLAg3EZu4Y WXuoQtqIiNmEQM0AtU3GI A4mTAxgR6xjYpijeamfH6 wOyc+TVJOOjwv dGQ+STFnKFF2nSxtTQlaC UGnnL2sMLAvE5z4PvSmVn J9FIgvW4AsslG7HDCilOI eEBRxvTXUzO0x txisr5lxpweuWxAjKDSaK Fq3USz8UCTorUcnVxAhKC F8UtF0ZXF7uGRulA1yfNr dqmbpyM6xOxl+ TQN0IEI1HY73SX90S3GwP jwvdGFibGU+PHRhYmxlIH dpZHRoPScxMDAlJyBzdHl wWT1gFs2gIERu LWN (more content not included)... [facility] Coding Summaryon 03-03-2024 Coding Summary HTMLBase 64 ZrzlupmhKKl1aTg+PGhlY WQ+DW0NPAZyY25fsHIgdZ 7gP4WBJXxKMwamZZTLLLo KWdVlfzFqDR8uuXZlZKZp IC8+XB3nZEBiSpnieKGnh 5Q6tXR4K06elm4lBMjdzY R4ZYJgWoQpngsyx1tumDu 6IDcuNmluOyBt GLLhlP48WFB2qN42Tc89q PWggLDze6umiUl4BeOpQX PjANT9gIokVYcrt9ReKZL kP63zwTPzt5M1 JZRdcFtceSMsRyQzlUO5t P4oPAwsxdvbx5vabmotLx m4fy17zULrq6M2iHR6O2Y efeA9ZVItrMOr MyouxJCQkK5wfpiqg1xzd mcmMpFhBLUzQWh7WUp0WG XjyEmxXnThQE26IUT8BCD mwvUiB6YjBTNv jKkiInN6p1I8If1WC0HRY wytM2TQKNUQXQidkIV+PC 98cr54S0HcXpoiTbv5PHF sKBJ4jLF6qL8c TCZlTBxum1S5oDY4F2Lww pAkrm7xo4rlJBEfBTuwC5 7yzNIjk6Y4QEUinJL1JOX oxYtdUuYmpV13 Oyc+JOMffUwqt1XjAtifh 6mzm3wtcVo0PmnbRUKprh JhfAxoEVT7n5DaTe5nDBR vyGN7hAT5nL3e ReTsWrL3NVreV476ArMnc OTjImouG88vZ3VskRQ+PH KdPzb1TGJriTssPR0bC5X hZGRpbmctbGVm iFesMC3bGRDjmkcnKBJwz X9nSYIsJ6l7HqLmSbU8HL klV6LuLYTcwgbzGy93wM6 jGzQcWjV5NSos X9TsqwX5BCNdxQIwOTggA UV1Q84zy9A1YINqQUGwPK L3gSG1aK1cbWebnjuctRZ mdDsgdmVydGlj LUrtPFikJ932AMGbmBsmU kNvZGluZyBEYXRlOiAgMT IvMTgvMjAyNDwvdGQ+PHR rLRL1yYcgLPWz dEMqBYqcPp1ubCcdnLvuQ E0hFXZcmogmPPOohF8iOQ UczOFoiUxyKP8bHNGlvoy wa517LtJyZDD3 JJHswKRkO1SylS8qNwUrX LToNKJqJ5RedPYkJYqyX2 07GCgqPbQ2DSAtbdCsT1C sLWFsaWduOiB0 d1U3Fc5He7ZdwxpuK7Xov IEgCgGaMsyeGBv4K7LeXa wvdHI+UV44NKPsZT34IPi 2IFD8vJsyMJss ROBvN8LthK4dRwHvTFLrQ GRkOyc+PHRhYmxlIHdpZH RoPScxMDAlJyBzdHlsZT0 iJo9sSAHuNCCv aDsxiASaTkLbz9mxHSSfA ScmSL5qyFypU3ZrzKD6UJ Viq1l5Wv11Z45oR2GevGE +QLUzlJM8oEK0 wR7pWeJuVxL0WAngL030Z rSnyCZrAaxaf6yiw3loyF y2HfW6SKKxklKqyZlaLHS 2k0DnLt49V12y IHdpZHRoPSIxNSUiIHZhb Gapul6paW0kIy6+PGNvbC Y1mUB8kC6eVvJcFrI7ELw eM124PxLyaORu Zfvfe0zml4mbeTx3MzNlH XZyoaUbhDfzRDV7l3PkPp 16Z8LklTsrl1FzPlq8cf8 9xKUtc2O3hTJ4 G0DwIASyjkzzoUTuoAcaG V8eQNFsmhlhQIZdiF3hAD EmJ1v2DkVmZqW5VDorB5I iimR6WOQkxZKm YSJqiCKStZ3vlozty0ayu cqqThFhEXAuUHr5PZs1HV WbdFivRpElHXN6XxB8JAF 8fGJkiV6cxEso mlrraG1sTeq+XSG0gARhd YRFES1hDquuhWS+PHRkIH P6cMsxLPzhRMXwuW3yQIK jR5j1GhZxGnE8 YYuiD7LbyaO3UAYonOQvR ENdsUHLdC0jcmzqi1nffl lfVgLdWZEhUFt6VSy2IVP saWduOiBsZWZ0 JsP4RMG5lSJeoR7uoFfdp xcopY7cSqs+QmlydGggRG R7MLo9V7SfPqp9GKOrvCx mWF2lsLBxXKrv Gi9ajXijbTofWQ0wHWWsw nsgz755DbRgf6zrRWWcaM GdLYaeSBU4Y45mg6B8GZM qEWDjCUN9uNW9 zA4kvFklwfvxaDQwqYlta gExxFkbKWncFYqaA290DF MnsFyfUiBwJQi4T9UyXmt 4EXKhoIveLP7i mGIdRVodHv5rxQilfKzrD R8uASNrdfwlk744CnSoq5 ksJVKtfKLqFFswUID9A53 tj6W9XSNjZGTc KOH1dCH9bC3mxLnemrxwg GVmdDsgdmVydGljYWwtYW vuG886WETdzFqpCdZasMp 2S1CkHlj3TJKv eXtkMF8onFGoISfyAi6iq AqbaMwkPA6fNKDeduchp7 19JqGxu8ftZPTxqPQeJEc zLGS8D66lv0T9 QTYzKDQzKDN3gHA9sO0gi GlnbjogbGVmdDsgdmVydG fwQTuxNNwfZ909DVEiaVz nPlBhdGllbnQg IPwwTAs0R0NhFgsikJO+P W93TOFyVY09fPFysAKkj5 vecJe0CpSaAREbXSD1tOh xETpwj4MgHAXb S05boMEjs7M8ACYdmJfsj HAmLmJweVA9mV0gHRwyzb juh3nvlrzyMnmhs6vgqg8 5aT48V55oXUmy ZHRoPSIzMCUiIHZhbGlnb c6zuU3iWw5+UDXfcDY6dP G6oM4eBADqVfW1ERcoH54 9InRvcCIvPjxj k4xtm2rvmKx0FfN7RKIjc qBjiYoyYGW1f6XtFj49U1 9sIHdpZHRoPSIyMCUiIHZ lcJwnuk1weH5l Ii8+FYLdbEK4yYN5wD6pC zOlLeK2HPkvG180ZtZouO NkBnfsG88aP2YxnBB+PHR yGjz6ECDfsMsu KC5gdWVsQJlsZy1pAOC2C tZfLiYlMYlfX4IzGQZuio fllktzdHZ0KHGuAGAafH8 0Kq4qvFduTFFh qNXOiT5egstjh2zekllbZ vSsCSUaLXl2BTk3YHSpzE tsLtLpVQY1LhP2TZV8fEI hwF1ibPqkiynv oO2sR6TjSRVtonjtXc64n Y1jOxSdIjS5CRdsBmc+SE AIBX5KXMIAKQFDFAVpTSK LUT04SY79gIBp v0R7qUZ3L9RsBDWlqtlxw sykmWM7KROmXQGedN16gX TnXLqiHr9hz0W7v398HEO xOWRnqH43Zm9d aSvtPKSpwZADvF8ujnlft 7zlufjpWbAuPKFrJVu3MD v5WZTnmVvsUxYfWYK8ElM 4TRQ0gGCtwM6m qFxjzwrtwA0hOem+MDMvM MUzPCf2MVudkGI+PHRkIH F1gDciZLdrMVLwlL0xWPM uN2j4DpNuRaN8 KLzkD5DuJXGthqtvZp30l P5gGuObZqY0PXhzZ9Bspi D3BPUyeVPyYVlrULO9M00 zv5N5GEMbTSLb XLA7yCW3fM8jpPwmusyys GVmdDsgdmVydGljYWwtYW rkJ931QUWnrQkwYyNpHEh sDMDgQI08PJ44 qMLln3G9pYY0N1FhCTCrf cyecsjpeHL0VJPdVPJcrU 54hWFvEKgnCp9ep8B7o43 0VINvCOSqyH39 Tb9dkXlcWTWarJBAyC9kx iuqy4fxsqtzRsKqWAPhMF v3CJq2ZSApfYnoIoSjKCX 0AoL6NCM2fJTd sO0isTrsleepsX2bHtq+R uQCLYjIIN29XT50rGCif9 O0fEQ2N1MsTJIxqskiadd pzKG2CUPlWZKi uM34dFXmYDstMm6sx4O5t 676SMCnGVKgnT08Ui2waW biAXRvxUFKiT5vkwrok8j vcjogIzAwMDAw ALc2OUx5EDHibAmgAjMzD CU6GeX1HXR3hRMrgX1dnH mhlmlnmT0fDev+NMP7BHS 3erupgge2A7Nu PjwvdHI+AS47XGGaFH76v AGybGBgt1pbzSx8GjMiTB AmJMT3zCzaZSvsb0DtUFN cG98xnTGcu5I7 NPQncTtacSZqZcEcqHG6h C3jOFpbhrnef0duraumTx zwi1ekei87eB81G63fPNf pZHRoPSIzMCUi IMLpmIqxcy6bvJ5gTm8+P KNuoSF1qAY4wN3zHgUrJh K5PLoaZ889StUsqDQwUse ol1age3tbsSq7 HhQoIUSlbpCtqGedJXD0l 5SjAd16O28qMIkjVRQoFD QbBQFlVRXpuHbdjn5ryE2 wIi8+GB3qe5rs rf18fU85yXG+TIHoVHC6l JfgRMwpNMBhdQ2vZTmeRe E8TUFaErZikA50dMVvWLv pHx2joFnthTik VA7fPTZgdtybg597EsKvq 3ljWTDgmOBwKMcpUGO3I0 5zy9I6XLTtVWMyPGE5eMI 6fI0pdWsxcfag bGVmdDsgdmVydGljYWwtY QgtT069RBLdiLwvTnQtkL VeL3vlitOZJO4mIcqvzIU +FTDdNUN8cCat NAmsVNOstP6lMXKmS2e1M kMqRyH4YElgT6DhocS4TA QkdVWiNOKzoOHLhI6wjza os0rvhesbZqBa JVJsRFc1XOs1NUZnkCgvM uExOTC6RhC6COI3vLDojH 9jkBxosekqdL4lSgz+Rkl OOjwvdGQ+PHRk TYD0cKidWLpjIOSfrL8yU LTtJ3x5RcIwIuH8HGdwW4 EaknR9BNEmlWYyWIJwlXR MtQ2rpbllr4fk wumrOuIvHMPgMTf5LZa3S NLqrAseKjEbUDM5EvY9FX I0aLVbcK1nbJkvlaymfC4 wOyc+TVJOOjwv dGQ+WABmKLQ0pWcjKKfmN GBnvU5xHLWrL6m5MjBfHk T4WUgxH5OwnyZ3GSZfzLJ sTFMplNHLkY8s xfkvv4ljwymoVeSqBZJxD Cy3SKe8JJRqbCopLwJoQD N8IjI7LNT6mGDblQ1ruPd bexectD5tSky+ ILI5KLZ7RU41UO76Y4KyL jwvdGFibGU+PHRhYmxlIH dpZHRoPScxMDAlJyBzdHl cUV8bCm7wSKPk LWN (more content not included)... [facility] Consent Formson 03-01-2024 Consent Forms [id number]. [email or web address] [facility] Anesthesia Noteon 02-27-2024 Anesthesia Note Patient: CHINMAY KNIGHT Age: 48 years Sex: FEMALE : 1975 Associated Diagnoses: None Author: Shahab Rivear MD Postoperative Information Anesthetic utilized: Monitored anesthesia [...] mmHg (FEB 26:) Weight 98.2 kg (FEB 26 06:48) Assessment Anesthetic outcome No anesthetic complications noted. Patient discharged prior to post-anesthesia visit. No known anesthesia issues. Uneventful MAC. . [Electronically Signed on: 02/27/2024 10:36 EST] Shahab Rivera MD [Verified on: 02/27/2024 10:36 EST] Shahab Rivera MD [facility] Anesthesia Note Patient: CHINMAY KNIGHT Age: [...] Cerner NKP Tobacco user / SNOMED CT [id number] / Probable Histories Family History: No family history items have been selected or recorded. Procedure history: Facet joint nerve block ([id number]) on 01/30/2024 at 48 Years. Comments: 01/30/2024 10:50 REJI - Renee Dean MA Bilateral L345 Foot ([id number]). Social History Electronic Cigarette/Vaping Assessment Electronic Cigarette [...] (FEB 26:48) Resp Rate 16 br/min (FEB 26:48) SBP H 147 mmHg (FEB 26:48) DBP H 87 mmHg (FEB 26:48) Weight 98.2 kg (FEB 26:48) General: Alert and oriented, No acute distress. Airway: Mallampati classification: III (soft palate, base of uvula visible). Mouth: Adequate opening, Dentures ( Upper and lower dentures ). Respiratory: Respirations are non-labored. Cardiovascular: Normal rate, Regular rhythm. Neurologic: Alert, Oriented. Review / Management Laboratory Results Plan [place] [employer] Anesthesi[employer] (ASA) physical status classification: Class III. Anesthetic Preoperative Plan Anesthesia: Monitored anesthesia care. Anesthetic plan, risks, benefits, and alternatives discussed with the patient and/or family. Patient verbalized understanding. Informed consent was given. Consent was signed by the patient. [Electronically Signed on: 02/27/2024 08:40 EST] Shahab Rivera MD [Verified on: 02/27/2024 08:40 EST] Shahab Rivera MD Normal [facility] Inpatient Patient Summaryon 02-27-2024 Inpatient [place] [address] Patient Discharge Instructions Name: CHINMAY KNIGHT : 1975 Patient Address: [address] [address] Primary Care Provider: Name: Provider, None Phone: After you are discharged if you find you have any questions, please, call [phone] ext [phone] to speak to a nurse. Discharge Diagnosis: Prescription Information: If you have been given a prescription for narcotics, seek immediate medical attention if you have any difficulty breathing or any sudden status changes such as confusion and sleepiness. If you or anyone you know is experiencing suicidal thoughts, mental health, alcohol and/or drug addiction problems; contact the [facility] 07/10 Crisis Hotline -Text 4HJLE to 176637. If you received any narcotics, sedation, or [...] business decisions or sign any legal documents [facility] would like to thank you for [...] (in otherwise (more content not included)... Normal [facility] MAGR Intraoperative Recordon 02-27-2024 MAGR Intraoperative Record MAGR Intra-Op Record Summary Primary Physician: MURALI WATERMAN MD Finalized Date/Time: 02/27/24 09:06:32 Pt. Name: CHINMAY KNIGHT FLOYD /Sex: 1975 FEMALE Med Rec #: [id number] Physician: MURALI WATERMAN MD Financial #: [id number] Pt. Type: D Room/Bed: / Admit/Disch: 02/27/24 [...] Kokinda, Diane RN Role Performed Anesthesiologist of Architectural Technologist Architectural Technologist Record Time In 02/27/24 08:41:00 02/27/24 08:41:00 02/27/24 08:41:00 Time Out 02/27/24 09:06:00 02/27/24 09:06:00 02/27/24 09:06:00 Procedure Radiofrequency Radiofrequency Radiofrequency Ablation(Bilateral) Ablation(Bilateral) Ablation(Bilateral) Last Modified By: Noemy Bermudez RN, Diane RN Kokinda, Diane RN 02/27/24 09:06:20 02/27/24 09:06:20 02/27/24 09:06:20 Entry 4 Entry 5 Entry 6 Case Attendee Maine García RN Guilherme Cornell RT (R) Merlin Lemos RT (R) Role Performed Architectural Technologist Upholstery Sewer Upholstery Sewer Time In 02/27/24 08:41:00 02/27/24 08:41:00 02/27/24 08:41:00 Time Out 02/27/24 09:06:00 02/27/24 09:06:00 02/27/24 09:06:00 Procedure Radiofrequency Radiofrequency Radiofrequency Ablation(Bilateral) Ablation(Bilateral) Ablation(Bilateral) Last Modified By: Noemy Bermudez RN, Diane RN Kokinda, Diane RN 02/27/24 09:06:20 02/27/24 09:06:20 02/27/24 09:06:20 Entry 7 Entry 8 Case Attendee Rukhsana Bang [employer] MURALI WATERMAN MD Role Performed Scrub Personnel [...] (R), Renee Dean MA, Truitt, Regina [employer], MURALI WATERMAN MD, Noemy Bermudez RN, Merlin Lemos RT (R) Last Modified By: Noemy Bermudez RN 02/27/24 08:44:35 Patient Positioning MAGR Pre-Care Text: A.280 Identifies baseline musculoskeletal status Im.40 Positions the patient Im.80 Applies (more content not included)... [facility] 04-29-[facility]23 MAGR Preoperative Record MAGR Pre-Op Record Summary Primary Physician: MURALI WATERMAN MD Finalized Date/Time: 02/27/24 09:17:57 Pt. Name: EUGENE CHINMAY FLOYD /Sex: 1975 FEMALE Med Rec #: [id number] Physician: MURALI WATERMAN MD Financial #: [id number] Pt. Type: D Room/Bed: / Admit/Disch: 02/27/24 [...] consent correct. General Comments: [facility] ambulatory. PT denies cp, sob, cough or flu like symptoms. PT denies pacemaker/defibillato r or sleep apnea. Finalized By: Marta Sousa RN Document Signatures Signed By: Marta Sousa RN 02/27/24 09:17 [facility] POCT Glucose Levelon 024 Glucose [Mass/Vol] 195 mg/dL High [address] [place] [address] Comment on above: Result Comment: OPR_ ID=IN_LIST,TGC FLAG = False,Meter:[id number] Telephony Engineer:1277 [address] Sidsel Performed By: #### 4 [id number] ####[facility] (DEFAULT)[address] [place] [address] Glucose [Mass/Vol] 211 mg/dL High [address] [place] [address] Comment on above: Result Comment: OPR_ ID=IN_LIST,TGC FLAG = False,Meter:[id number] Telephony Engineer:[id number] Halblaub Sidsel Performed By: #### 4 [id number] ####[facility] (DEFAULT)[address] [place] [address] Patient Handouton 02-27-2024 Patient Handout [facility] Progress Note - Provideron 1 04-12-2023 Progress Note - Provider [id number]. [email or web address] 02-10-2024 Coding Summary HTMLBase 64 AbqwppmvSQz2cPk+PGhlY WQ+KX5ESIJkO04gjQKblK 6pC5SOJBrKGomvYCKXELs DLtEgowSlYG6muBOaEPIq IC8+JT4nGUHpLblokTDzk 6N6mKA3A65map1nDEymvW T4WFDpQaYiqegoq9vmbYg 6IDcuNmluOyBt QEUrcI79BLX4bY21Gr37t ZOaiQAvr6jiaUe6ZjRyBE FqULQ7vCqlTQhfs0IbYFS kR58maFUvg1R5 TYCygBfqtLPsWdOboCX5o B3zIEceoyiie3hapdbsRo w1ym12nKZka6K7hVA0Q0Z bjjN1PMOdeTCr EreorVWDcB6owscda9rva ndjVdZaWGNdUIk9WXm4XO FkyJmmUcUeQQ65VSD0TVG thbMpJ4QqAHXu qApxVlU7c7D1Tw1RX2YBI cemU6HBOTIATIbchMA+PC 92um23D0IdOlljAyd2GNG sCTQ1iAT8qZ0e OPPdJHguz6N8gRF0D7Fib kAdwn3zr6rvJOOxYGgxP9 2siXImo7I8LYOyyHW0HVB moUvjFxGqzI08 Oyc+RABkxZrbu7CwYgbsl 7dvl8tosKs5EpkqESAfdr YnlHqbFLH5i8ZvTz0wFBU cfRO1cVJ6vA7l SaVtJvC6FAtyS601MiJmg HSkTlbxF75qR0XbtJN+PH QjCmp8ROJqjGhnYN5sE4L hZGRpbmctbGVm uQudVI4aZSWepzfmKPYbd C2aYBWuA0e7ZeUwTiF4AV iuT5LyTYYabhjoXq35vF6 vUiMtVuZ9WAek F6PmqwO1QVBhgETvTMesU ED6W22qv3L5IIPuEKGbLI H0wMU4xY9wvTxybqqxqJZ mdDsgdmVydGlj MYtnFQupW042QPTirCcnG kNvZGluZyBEYXRlOiAgMT EvMjYvMjAyNDwvdGQ+PHR kZPW9nRkbALId tYMtKYayAs7jzRrtiVjmI W2hFNCyvzxeRXInkS1gHP IsbSSdsOrqLF7pLMCshfd oo241PuCzMQM2 ZVCrhETwN2ThsE6tFzDbW YJuJAJgL6AegITgYLaqO1 67WXkyXiL8PJAilmOjI3F sLWFsaWduOiB0 a2R5Rd4Qv8TcgvmzS6Urd SOqVaYcFyugVEw1U9YcBi wvdHI+AK95RRMcUB43WVk 5VGM4rIqkIDvp YBLzF2TwrX0xOhOxEMHhW GRkOyc+PHRhYmxlIHdpZH RoPScxMDAlJyBzdHlsZT0 wXt0iWGJaULFi xEhohDWpOpUfg7pnJKEiM HpmKB0rpJbzJ1GreVO7WM Zzu7t3Cv89G94qH0XptHL +QGBdkTG1uLR0 eW9yUkTiAtQ9KNpyS641E jAohANsQeewv9ndc9swjU s2HjP4DQHuwwPebZbzSFW 6o4EfQr44W19k IHdpZHRoPSIxNSUiIHZhb Zyxfu1hsW7uQa4+PGNvbC X9sJC1yH4lSbTaTsQ5JOq nB970DmOhtFSn Sqjlh1ybx1lfbHb0MpFiS RQzpeNfaMgvQLK4t4NjJc 58F7PwfKbeb1UoNqy7xs6 2aIBur4L2oEK1 R8DsELQymvbamOLbiWxhK L8qSRBgoswnYMPckO1kIV MyA2f4UfMyGfA0EXxtX5O ugqK1HQHcmYCi ARIytCBIcY9thdvlf2mdz jgzUmWvYBSvKBx5PDi9BC ZaiGjyNiLoYWY3BjH2LIG 7uVYlzR3vwGwk nvjcgQ6yEmq+JCT9lBBsy ZANYM1iUisqzNC+PHRkIH Q4uCufCOobEDPwuU3dAYX mP9j8MeHvIvO3 RQywN0QvogR5KMGrmHDpI EUamBNMnC9xxyumr0qgbk qmYrImSHLzNDv8LVg6QWA saWduOiBsZWZ0 YcJ0UTF1lLQzaB9doHrlb banxS9vQnj+QmlydGggRG Y7LMg3X0YoKsz1LYIysBj fEE0fqCHwDMzw Sx2itHayrBgsMB6yCNQat segv644YvWdm9qlQAGffD XzFArrZVC9X01kz7C1GPA hKIHuCZS3cYI7 wQ8lkXbyquyyeAPpmCehh cYlmNdpNXtpXNomK122LD HhiGyuKaBsLYw9V4ShAho 3CXUtuMbiGP1j zYBkUDvgWj2itVkiiVyfA P5hNJGkvwevc695MwZua1 qyUQJcfVLfJCzjBFV9V55 js6W0XEXpSJFx CBY6xEP1zM5scHiueaflu GVmdDsgdmVydGljYWwtYW xvN758YHXcfWtsObNlnWs 1F9ZgZke3STTt wAobDR8eaZEpGGiqVk3ue NmvpHjvSO4cGZNhyffev3 69VqDnl4bmBGMxcCJpDRc yYKW3B46td9X6 OOOgWZQkZLH8jSI3rP4sk GlnbjogbGVmdDsgdmVydG ukPEnmJRteJ831GCQhdYl nPlBhdGllbnQg TSogQAt6H7UvVdaguQW+P E78ECBvEI60uFWiyAEei0 bdmDs0ZxXeDTYdIBQ3rTm iGDppp1JbJDIu H27njOJam9Z8HRZzlAyfo IOeJsLlxHH5fM2kVPeevb qdy9sgeopoJdtcw2grwn6 2yZ36G94mALhk ZHRoPSIzMCUiIHZhbGlnb s4wdE1yQj9+WZJioIE3oO N4uX6mVTPtWkO0EZvpA10 9InRvcCIvPjxj i3xri2hugOx6XpB0ELLms qTwhPomWLL1z7RyGr32C2 9sIHdpZHRoPSIyMCUiIHZ abVlior6wjY5v Ii8+NDYngRZ8vWK0rY2yO xGwAvS1JHyfB841DxXkuT AbVjvbP44xJ2TwpEV+PHR mQfy6GRDjeRff JS0jrPNhTXdrYl8hGKQ5X fGtGmSlSEbyP8VlLKDvig qiouirgKZ3ZZXiMQUrjM0 7Zo8ikVfbFOKg xWWUyD2unqfen6xjmqasE yEhKPXtKHf0HSw5TSUkmR obZhZbRNJ5EjS4MVV8kSW xcD3irIkfzzec wC7vG7YhDVAcblmbEh98s G4kAdTqPkW1LLxbQkz+SE RDMF2AEEIEMNDMDPXoKPA HDH82VR60rAQm u5P0aKQ7K8HaPZDrpkova oligTA2ITBxEXTbdC95eN LyQHbpHb8sp5P2b838YZR yDRMyiQ23Na7p jZoiPECsnCKKpC5thyoit 8cdnogtAbSrGOWzAGk3CT v2IDGhyOujMdStTZI8AoV 5BUM0mYWkmU9u gZrtrfrftA2vGzs+MDMvM TBzBDu6MDtfnLE+PHRkIH A6gLpuJWrjDTGibK0vOWO jF0p6HrSdJqJ6 IBbbX8BrGZDgcsutKt54t D4bHkHuQkA5PCpfL5Iagd P7DANxzWSkXEbyHDY9L17 kb5P5NSCdCAUx WMA0sNJ2qC9fwJdfhrqcs GVmdDsgdmVydGljYWwtYW rdU691TPKydJlzFqGaMTl sQMXeUD62VW46 jIEbe9U1hPE4V0ZxPLZsy uckpxyttHH6ZMJbWCViuV 82qMNkCYjrJz3fp2F0z42 8AOQaWEKrkE42 Sb9rkHkwKENcfKIYyL8au uikn5ohskruVuSfERBiZR q5LCn9CAWdxDrwNxNjRUG 0ZgT6IIK2aAIj uT9rxJwsfiwidX1kBjh+R nHKLZaVSU17VB49hTXqu7 U2bES5I2IrDALdsokovhi inTY9UJIfITIl jG84lSAeEGuzJw8ms8D3d 618LHJiZZOmvI14Xb6nnJ nkYXCrvGZLlJ3dnfwet5u vcjogIzAwMDAw AIv0TRx6INHlhPyuNnKtV ER9NnX7BBX4gLAnmZ3dyK iawfkelA0fJof+PYV6DIK 7ebfovyn1K1Rl PjwvdHI+CO40SFTrWM64l YCnuNRlw4hztOt3JvPbZX LzUKI5zLdjFBfkn6KaJXB vA25jpKUgb3T0 CPHroCrglUDpLkPzdOT1z S0cCHedxeycg3ksxtrsRn inu7gwqz37wM52A90tGYb pZHRoPSIzMCUi ZVLmiBslkh4zhX4sAc9+P QRcvWC5pEA6xX1hLbXuBe L3LJfcI866KfBuqCSxCwf lz1dhb6ggeXt1 AfUzIKSzuzKjsMxxLTT3p 2WlPo92I25vYVjhQCBlCJ BnTRKpKZBnlZbdif1efR3 wIi8+BX2vw5gc ng61mA25cCW+FKHbULN6o PfkKAheEUIqaY0nYHjqGx K2TMPjMzZgaC01lTBmHGv nRy3ymZfbbMow JL7gNLUsjxwmg519TjKsb 1exFRDukWLaVIrbIMB9J0 4gi9P5JBKiUHAtXWN5vZU 8nB1ujStpxyvo bGVmdDsgdmVydGljYWwtY CzrA194UTEfrUytUqRwqF QzV9omqoDMNP2mAiibaSO +UGKmFPQ2vYnp KLkhVYNyoZ7uUJXsC8l3H nLzGlD5VZjrI6VbvxV1EG XxkGReKQWqwUJDlL8elou vt5veparmZgZx KSPgEKj6RDd3OGPvdIiyW qLlNWU2NiJ6QDN3qQKexJ 8utDsfihhwxC7eZcn+Rkl OOjwvdGQ+PHRk KLK6kOhjMQmyYKPesO1mV EJlG5c0PmFmEiV7OIeqD5 EbjrP8EFPkfHGrWPSqtIM WtO2ojdefg8ug inrcEwLqBQHnUUl5KCf0P EJvmCydWlNkWQL4IdD8MN E1eLXapW3rlOshdttpeG5 wOyc+TVJOOjwv dGQ+YRMeFWZ3uGeoRXkmR IPijZ4aHMWiO3g7TnMnVs V5IItqS8GtyhP9NNFaqIE fZCFqlTQQcU4o ztcxo0rnykdsLbOmHKXbW Qw3DXf8SJZjrEbnCxXzIP Y1SdD5ESF7aTSjaZ1tmVx hxlvdqY1xEjf+ CGZ3POG8AQ94QJ60F4MuM jwvdGFibGU+PHRhYmxlIH dpZHRoPScxMDAlJyBzdHl aCF6oVq9jBNHo LWN (more content not included)... [facility] Coding Summaryon 02-09-2024 Coding Summary HTMLBase 64 XgnlguquWZg0dUz+PGhlY WQ+JF3HICFvC69reRXoxN 7zY0RUEBiXBiavAJJEPMo PDhWdnhJcPE7geMHfUILm IC8+AN4hXDUpXgyleMFwv 4Z2bUN0L03mrt4lRFvvhA L4OIRlSoQxqiwaf4cxwYl 6IDcuNmluOyBt REMbzD85KSG8oY33Dd92o SWpuIHmd2djmKb3XfPkTM CwLPG4bDxqOHhrw3UvCFW fK60paMQie3A7 SSAstKmcdWSgKuRxxOK6r G7tAUzfnqqqx8coxowoFc b2nr95mGHnx9B0tMO0A9X cdhU1PQArnGVs GfgwpUYDeN2reldnj0rtj zhwBcOfUMUeWWr8CEw8UJ DepXbeAiSkBD50KGM1ERA rddHuD2XgYREq xAnmFpA1w1S7Hr9LY0TJR itlV4THMQGKNSfblKA+PC 19df21M8YoIfvyJfm2WUT mPTX3iHB1kZ0d URPaPWjnt7P8nOU9U2Fbu sNazl3kw4jmROYlNVtxN9 7beWNhd6X2KUBxhAI8XEJ mmLlaXoZxdY02 Oyc+TTEdbPqmp6RgCfjfi 6huy5bzzQb5ClqeFNMijk WjyEoaTXD0e3AsXg2dIPX coNB7iCD8iB3p IjEvMhE6QErtF957NlUmm VCeTycxW99dE8XtnIE+PH KnIew1JNTodPbgPE7iN4S hZGRpbmctbGVm zConMJ7bRDOcovjyPLVgj X2vBYVvO8z6XgMfCyY7PO rxJ0RpCJFvkiisEe87hW1 kGyQnXyX0TPbm D1WosbC6JMSxoJMlZVcmN HQ2D33so3W6YIXgSIMyGO Y6nTZ5vP2reOjqvvhmcSM mdDsgdmVydGlj DAfuWMsmJ407QXMlvLjtC kNvZGluZyBEYXRlOiAgMT EvMjUvMjAyNDwvdGQ+PHR qZND6nJgpQVNj uTBrRVqgUo0lsQaxyLojT C0rNWGznvlsHFDcaQ0jLI RlkZRlkCohUX4iFQEqqbo zh042MyIsPGI2 LLKxdOKgM5KrqZ8sQpIsS PZoHJMpH6ZkfYDhFBloR2 15BUqlPvO6RUTvpeTnA3M sLWFsaWduOiB0 i7B8Qb3Gd2CkfffnU9Deq CIxZwErTtezSWi3V9QiQl wvdHI+AS84DCVgCX52YRa 4OFC8wNzwICgv PRCrU9SwzK0iBgMpIJBzO GRkOyc+PHRhYmxlIHdpZH RoPScxMDAlJyBzdHlsZT0 mIc2pQOBzCIFo yCqdqVTxZuPzn5mjFRDiW TlgFI3oaEzkU0ZuxDK5SH Cja9q0Rp57J18gI4DqzCW +VILzuDS0jPM0 cU1zIfBnRxA7EEpsT895Y mVfjDSaNsqaj3ehi0fouV e8WfC7IXUjdeZieCifUUX 6x3SoPm85E43m IHdpZHRoPSIxNSUiIHZhb Fpswl6euR3wXn5+PGNvbC R8sQV8eQ0yEhWbCzA4RPi bE744JsVerBZg Etkcz0fpo8arhNz8ZpByL XPltyMgnSapITG3z3HgOk 72H9RaeLqav7LdYle3fz3 5vJYkf9O8zJL4 D3NqLWNagefbaSBzqMhzO U8eCEFwwdgpBOAktO1mXY VyT6e8IbWlXbC0NXpsF6D ujoH2JAUwjROl YNCljJWYwH2arpbvq6lxr fkeMjRqTYAuOUs4MDc7VV EsgLwiPyNlDVC9HnU3QCN 9mDAdcR2ukWyo sxwnxO6gApp+CZZ6yUHbu TZFQL0iMgwveJU+PHRkIH S8qYokAKdxGTWgwT5vCQA hI7j8VtNcFhQ4 XYxgX0AigzD8IQSwdRFmE PZwpBNIzI2sqapyq8qrjy ufMhNqKLUjKWh9AOj6AYZ saWduOiBsZWZ0 NxO6IEC5dTEnfG8tbVqlv xlboF7aOom+QmlydGggRG U3UIg4T5YzWad1CVXvkIz lXY7hcNXcVGzn Vm0xeLcpuKlgHT7hEISqc gkis371OtZic2jcGZKivF LaPQnhMWI5W40am8I9OEH dOPUjJLJ1bCG2 tV4exRkjfqcieOXffJqqb nVkoNdoCFbsAZqwR736EM ImwPdoAsVfCCa3L3UfKua 0KHWfmHqfIT8k fHZbYQrzIx1xxXkxzPxeF H2uGUWynbxco118OkKhc4 znKVUhuNJpTFktPDQ6E47 qj1U9YJPoCOUr QHD5pNN2zL8lzGpuuzcqn GVmdDsgdmVydGljYWwtYW uzC401VQFspDhaAnLrrOk 8P5LyDwh8URTc fMwbMH6mfVVnXNzkJo4ee KyopZtsCQ9sFCFgkovde3 60LxNgi3raQWPvzNBvSZe vRIR7E50et5A7 TCFjQQByIMK0pZY9gO7ov GlnbjogbGVmdDsgdmVydG bjIIepAIvdA272UXDsrRc nPlBhdGllbnQg BYtvSDh7S6NbLknkpIN+P X88YEEzZL23gWBkmBQnz0 hcgHt5HqLdKEEmSSX8kFe iSDhfa3VvAACq A20leENic7R4GEAwwYccu KNcWbQwbWL6lB4aRYihzf fex2rwcrvlKhcbd8sqwr7 5kQ13R20rDLlz ZHRoPSIzMCUiIHZhbGlnb r1ohW5yXc4+WMAgcKQ6eL A9fC4oLSOwBqT7WHxqE96 9InRvcCIvPjxj x1psc3thzNb7HiT6KCNlh vYxnIvkOAE3b8NzIe98Q2 9sIHdpZHRoPSIyMCUiIHZ mwPrwqb9piG5m Ii8+JZEvgQF6eZW0cB9vD lTuJsS0LSzfD930AaErwU NpAtltW19cA6PicAB+PHR gAvj3EWQwoTbq RO7ztHJnGCarAf1kOTK6L tWwYxYbTGqcY4ZcKYBnch rgdahvuOG5FLEvRLFspX5 3Tb8pyWtgKXCr cRMBgU5vqzcgm2qyashuW nGgBGRcZYd7IQw0PCVpqH seXbOeEZG4JvY8KNJ5gQM mdS8viJqxyhaw uT5iX8GfFJLwdravNv12d H3pFhFpPlO0FXxqIql+SE WNWZ2KCTGGXZTNSRPfNDC YDU37LK52tKSu o9O1kLQ1R1SnAAPuoouxk sbzaRU5WJDeROAomJ47cP PzVHvkEv2kh0H1n904EXT hAVSqaT68Yi2j eOyiPHTyoDWUkL2xlmyqk 5ckiobrVcLkCJVkWIc1UM h1ADBzxTldGxIbKYZ8SkP 0TGR1pHWxdH5e xIjpsgbqcF6wOcm+MDMvM QYoXUi8BEtbmDR+PHRkIH S2tRtjCKuyBYCeoF3dLQK lD1c6XmWzXpY1 KKvxH9DsPNHlngmzNs77b D0ySrYqFjW7BQwiV1Yuso W8ELReiBXjETvaCVJ1G23 nt6U9NDMbZUHt AWU3gNI0gI2drVcpsgirs GVmdDsgdmVydGljYWwtYW cvK178ULHaeXmxCyBlEOt gYYSbBR81ZT34 pZEsn0Q9mNS1B6KnMBPsi oedllfsqND2HGUdLJLhdJ 94eFEhKVrjGu7bn5Y2l75 0HIPxIGCnvF28 Li5kcOknEUVqeRMKcL0kn zmvi1qudiebAcQtDXSdPH o9GBy5RPOcgAtoTaUwRYS 3VoC2XSE9eOBq wM9jeZkvrbseeE2aCxg+R gOZEHyYTN93FZ96oFXvo7 D6vOF6J4SqDCJawnswgvz aiEA6JVBmDHUk pQ32rOFtIUwjXe5tf3Y8z 246WJUpMLAnjE52Wl4zvF mvRYQgbUDAhO8jhuggw1d vcjogIzAwMDAw VPk6UMv9FFYozLuuYsLbG WN9IyC7ASC3nGBviE7ggV qribdleJ8vOni+H7T8J6Y kPjwvdHI+PC90 ORSuUC30bUWocQHpl4hgw Ad9JaKgBIAzXXR8vUudRB uck1YwXQPyZ75yyVKlu3A 6IGNvbGxhcHNl ReHxaBP9hT2cJEdiamryh 2mbjrjtCmoif2tziy47yC 55T46cRRynMLRvKXSeRVY ePZAbpBvnsy6b hP3yCs1+ANSxbTI5qRV1q R5wWgPpYqD2AJxwW463Ty WhxCRjWrzuz0mzg6azjLm 9IjIwJSIgdmFs tEtxAQG4t4HhKw34H61xL HdpZHRoPSIyMCUiIHZhbG vidd0ehP2eJa5+JU7kb4v vho61iR13aJO+ RJYdKNK3iKpjTXtuOZCru Y2zOMyvCoN6ZQDaRjNvsN 18eNWbMAsmXl2seNbysRf fAE6dLWOjsiww z469PwSmx9idGCFgcDRmJ EkwZEL0U83ab0M9SBFeEL IzFDK9wOI8aL1utSnnlwb gbGVmdDsgdmVy bQnbMIvcLJrvT677QLHgx AkrUlWkmTClA2epqoBBDA 1lOjwvdGQ+GJOxVPB3dNf tABciVYFacE9l AKLnM6x8BmWtNmN0CIsxT 5ZialH6YQOpwFAxLZRrqW OKvT2isapjn1lplfngSeU iBLVcFKl8TIx8 LWSlzCdmSsPeJOD3LpV0J MK3vUNefK4vmRnzrmbufV 9wOyc+RklOOjwvdGQ+PHR kTWO3sNgdIZfg VJCjpS3oIIQcU5y6ZaMkY oS3BLtrU2IoyqE5KXJfnT KiLZYkgPJMwJ9dxboil9q vcjogIzAwMDAw RPd0NUs7IBIxxBgwBnIvG TM9WeH2QBK5qHEcfV2wqC gfndvcjV4kKlg+TVJOOjw vdGQ+PHRkIHN0 gFskSEslKSZtzD4zMDFeQ 8n6PqEvZvR7YZnuD3Vrcp P4ZNQmbFImMRPemTXUzF5 pjdnko1eqdqdq JhNjAZXuVIf5VKj5DFBgg FuaTfWwWMN2IyZ6TGB9oU DecV7byFwazshxkE8iTcp +VHW2RRE3QY25 CS36O8KrTlcomNDdsDZ+P HRhYmxlIHdpZHRoPScxMD GqSxIviTtaMV3nRa3iQKN yLWNvbGxhcHNl OiB (more content not included)... [facility] Consent Formson 02-02-2024 Consent Forms [id number]. [id number] [facility] Inpatient Patient Summaryon 01-30-2024 Inpatient Patient Summary [facility] [address] [place] [address] Patient Discharge Instructions Name: CHINMAY KNIGHT : 1975 Patient Address: [address] [address] Primary Care Provider: Name: Provider, None Phone: After you are discharged if you find you have any questions, please, call [phone] ext [phone] to speak to a nurse. Discharge Diagnosis: Prescription Information: If you have been given a prescription for narcotics, seek immediate medical attention if you have any difficulty breathing or any sudden status changes such as confusion and sleepiness. If you or anyone you know is experiencing suicidal thoughts, mental health, alcohol and/or drug addiction problems; contact the [facility] 07/10 Crisis Hotline -Text 4HOPE tx 420552. If you received any narcotics, sedation, or [...] business decisions or sign any legal documents [facility] would like to thank you for allowing us to assist you with your healthcare needs. The following includes patient education materials and information regarding your injury/illness. EUGENE CHINMAY BARRIENTOS has been given the following list of [...] Take onl (more content not included)... Normal [facility] MAGR Intraoperative Recordon 01-30-2024 MAGR Intraoperative Record MAGR Intra-Op Record Summary Primary Physician: MURALI WATERMAN MD Finalized Date/Time: 01/30/24 10:23:16 Pt. Name: CHINMAY KNIGHT /Sex: 1975 FEMALE Med Rec #: [id number] Physician: MRUALI WATERMAN MD Financial #: [id number] Pt. Type: D Room/Bed: / Admit/Disch: 01/30/24 [...] RN Truitt, Regina CSFA CST Role Performed Architectural Technologist Architectural Technologist Scrub Personnel Time In 01/30/24 10:14:00 01/30/24 [...] Role Performed Scrub Personnel Surgeon - Primary Architectural Technologist Time In 01/30/24 10:14:00 01/30/24 10:14:00 01/30/24 10:14:00 Time Out 01/30/24 10:22:00 01/30/24 10:22:00 01/30/24 10:22:00 Procedure Medial Branch Medial Branch Medial Branch Block(Bilateral) Block(Bilateral) Block(Bilateral) Last Modified By: Maine García RN, Erica RN Baumer, Erica RN 01/30/24 10:20:27 01/30/24 10:20:27 01/30/24 10:20:27 Entry 7 Case Attendee Georgina Rodriguez RT (R) Role Performed Upholstery Sewer Time In 01/30/24 10:14:00 Time Out 01/30/24 [...] Concerns n/a Addressed Time Out Georgina Rodriguez Roverto RT Time Out Time 01/30/24 10:15:00 Participants (R), Rukhsana Bang [employer], Renee Dean MA, MURALI WATERMAN MD, [place] [...] Extended Right (more content not included)... [facility] Pre-Op Record Summary Primary Physician: MURALI WATERMAN MD Finalized Date/Time: 01/30/24 10:30:46 Pt. Name: CHINMAY KNIGHT/Sex: 1975 FEMALE Med Rec #: [id number] Physician: MURALI WATERMAN MD Financial #: [id number] Pt. Type: D Room/Bed: / Admit/Disch: 01/30/24 [...] Signed By: Marta Sousa RN 01/30/24 10:30 [facility] POCT Glucose Levelon 024 Glucose [Mass/Vol] 125 mg/dL High 74-118 [facility] Comment on above: Result Comment: OPR_ ID=[email or web address],TGC FLAG = False,Meter:[phone] Telephony Engineer:[id number] Ager Jacey Performed By: #### 4 [id number] ####[facility] (DEFAULT)[address] [place] [address] Patient Handouton 01-30-2024 Patient Handout [facility] Coding Summaryon 01-19-2024 Coding Summary HTMLBase 64 XsjfvzxzNCe4nVs+PGhlY WQ+BB2NZOPhE47rlOLleO 8pJ1GNUTwGNmzmIGKKMAr NJdBcfiMsBW4xkWAgOCBn IC8+QO3rYNWfWzessTBln 0R6uDF1M46zcl0yEZfxpT O7DIJxCzRvqnnvz9ffvGk 6IDcuNmluOyBt RKNkvG67ONJ1sK91Ig21d XKuiXMio7xtpNf8XtEhBZ MaGAE5mUlvMSnqo9XhHLV nI76bpTPdn6C6 JGYbdFeumLCmJmDqgKN8m V9hBMwdhyhsg2scejmkXd y5dh99tNPkm6M0jZJ0X5I oogR2JEIxaBUc BjhegCATiT8jyukox0slw tclFuPxVEYaNQl6GRe8DG ZdiUzkMpYmXY82SXY3GWZ gqzOgU3QdKDOo aQioHdR8g4N9Qg3ZB9KLU vijG0VMNYKRHLbqiCC+PC 49bs91O1KnBwppYul5UJL sEOZ5fQP0oN0k QFVrKYjkq1Q3vQA6K7Pyu nSgqa0lo2zzGKMvAPllF9 6lpCKxn3Y0DQMtdWA0WZD vrUnqJiBhnZ35 Oyc+RCNumGkhj6FyJpnvr 5uyi7uvcWn1MtwxQECjlx GenKwzWYL5d6MmEq7fCWG wrAF2mPK0nH5c YiNgVmC3RMwuQ133NuZdg JVzLytrW54iS6NieAJ+PH MeOxq0KMVmhTvxBA1fR5C hZGRpbmctbGVm tAsmUC0zLPOddsjlBWPmu V0gUSCxA2i4IcEfSuB5QJ lzX8BtGRItimzgJx94wW8 gTyBlKmD0DVvf H5DujxA0SGXhnYWwXLcdL DK4I23tj0D1NGTzMZMgBF B4oGF6xH9upIlicnwyfIZ mdDsgdmVydGlj XRdaOTyfO610KCLwgCciG kNvZGluZyBEYXRlOiAgMT EvMDQvMjAyNDwvdGQ+PHR gMQN3oRpkJJNr jPBaFGdcMl2amDvlrSohY V4zNFFmaoxgQKMxiI9mDC FkwROfrGxaGK5dRVAqvql jm993FeOaFBZ6 BHUidUKcM7JjoA6qYzQtV VHdRRTkX0QryNRoUCynS9 33TQrkAnF4DKZrlsTzG0Q sLWFsaWduOiB0 t5M2Vr3Mn0WxscozM0Cie UBqUsTvRwjdQHa4O0AlBl wvdHI+AT12OARwSU64VYo 6UWH0nGtmVWje QFIvM0QfgE0nFfElPDLpQ GRkOyc+PHRhYmxlIHdpZH RoPScxMDAlJyBzdHlsZT0 sQu1vUBAdSJYs jVxvgSYyZxVvp0yaJQKpB OyfRP2xuJpnD7VupJX3LL Izt8r5Jc09I06gF4FyaTD +YTWavZE9aXR8 wX5fHkTpHiC2XVqyX563T rCmeWUnHhekl6pzr6teoW z7ZqR3MZTvbwPhcZkuTWQ 6v1ArDg36D06j IHdpZHRoPSIxNSUiIHZhb Zgzkc3apN9gOy9+PGNvbC Z9yCW5uE7bKeQgFuQ0BNh jH564GkUjwKZk Iqivs3ogh0pciCe8WmMrS JEpbbRftLzrYSO7w9HwNd 14K9VobNuwe8IyOdf5ep4 5kBCto1P1rFN9 M9HgVWCswnqalLBewXxnH O7wEQPcxpnzYYLehF1dOC AvR6l0DkHiPpT4DTwmR3R qbkN0YZCneOLj FMTpySMBtX7bznrkl7hzh kuzOfLlPGOlLPf4FEe5ZP LbpEdvJkTkATX1RbU5DAL 4vAPupO7ywBjc owlpaI2iYoh+JTU5tPPyb DDVKH9gTolztEB+PHRkIH K5gCsrNRqiRXNiqA0bNYP oO3k9JoHyQyL7 ZSklG3DiipP7PGLpwRIlV JBbrAFQnI5ockejc9ekph oaEaBtXMDyBRu6CUi9UQN saWduOiBsZWZ0 PnB5OUI8fSBujI3aeQmzo svkjM5xNhc+QmlydGggRG K9GBw9W0CaRow8DUIbyQu kEI5bwFOtNEod Ih1hmAaliEzgHB0lAJZju mzyi017YyLzl0lePNNemN XtFPduOUP5T66zv0U3ISM hMLMrYFL7bGI4 iZ9mbUrxjkyujSOaqVuim xHbsNenLZkgVMbgP771DD PxeQrkJoEgGMk2S8KwGrr 4RMGvyMhhLB4z qKLwSClmCc6stGifnQdgA Y6kFXEctqxzf158LbZgb5 srWFMwwDVwMFrkFRC0T85 fe9K6PHGdPZCg EQN2lHK0aL2zjXnhhcweg GVmdDsgdmVydGljYWwtYW cfR069WLGpnAeaXyJygEc 5R0PpRjp6ZFPg qWftRE5liPTlEOktSv6jh TlfcCpqVP0nGCBoofris7 17SiSem3vrGLFcqOFfJIf nOCY2A82jh6Q8 RFIwVLXfYEN9wUU0oC7ws GlnbjogbGVmdDsgdmVydG tjTWhzUYwsC031MMAdmJh nPlBhdGllbnQg PMjaFLn5V0PgTyzrkQP+P F78ANKiGA76oIYrjMEcs1 oqmLf3KbCnRTMkIFY8pPn cAMtzz8RxXAKz B39xtWSnh7N2WWMooPurc UHeBpWgyCA8vG7oVQcodd yjn1xtnyzdCxrns6stfu1 3mM13F99rQPoh ZHRoPSIzMCUiIHZhbGlnb a7bjL4iHo5+YBKdbNE5kL B8fP7bSPDiDjN9ADjkP54 9InRvcCIvPjxj h8jwu1jdvNk6GaZ9SMAnc oShpChhRKY9y3EzDd78M5 9sIHdpZHRoPSIyMCUiIHZ feXkowy2qjG1h Ii8+SYMhwUB9hBM4rL3tG gGvKpY7EZxnD243ZkDmiD CzYjamP19eJ8ManVM+PHR vWmx2AHPrcXub WT3juHNhQEpcJi8rZPR1L aNyNzFvMGbsK2FsAALjoi qgqkzocEP8DCEbRCXlmV9 9Sb5nbDwxWTDg uKTQvA7jxpvra1gknrpyV dKyICGiWZv9KVh4BVHmlI cqJsDvLKE0ArZ1ZMY5jBR oxK9fhPsalovs zI1yK7KaAIXzshexXn85b X3fQaFgTwI8LRrmUae+SE OBOM5CWXLLFVJTRVFxLUN BPM50WE22lTMc v4S0mAO1E6ZeYQDorbgzf jakhKJ5EDBrECNutB43cK HmXNvtUs3dp7U7a250YRL mSTWkrK72Gk2c vRegVIDsbMNTcN1gdlrco 2bntqsgAlLxQERqOLt8FY k2RNYriLfjQsJxTJM5KxC 8UHR6vMYprL2g iEmcycqzyC6cTra+MDMvM ZAjAKw0DFxrqWY+PHRkIH Y5iYqePXeqYKCjmK7aJTS vG0r3OiYsMeC2 QIkdN7WxVBDllefsIq69i Q2tZuOpVzW0JShnK9Zjpa K8FNUisDSyVYfcEBR9X72 sm9E7VUKtHTPe JAZ8qOD8hS6gyFfyvpeum GVmdDsgdmVydGljYWwtYW jqC551WQHklYljDlMtIWq tLCPbDD60AL90 jSSuk3L1dTH5T2BbYQWxz rwwxguasBV1FNSmVIXrwG 52sAQmLWfbQl2mx9H1x89 8CGZuYTFzfX06 Jg8kxTsgOVJzoQJWoZ6pf yzdp9aqrcieLuLvONOtVT e4JCh9HQYupVpuVyMfCVR 0NxO4PNV1xJTp tN8byXsasujftN1wLdj+R fMCKKnWKC17JC38cANgg6 L1lWO1P4TvUBFlljmtqrp dyXS3MGKlQRCy iT72pQZeWChpWm6pm6Z9x 375ZFMrCUEouP23Oi1bzU hzIYGfqBEAoO1rsfwni5q vcjogIzAwMDAw FJi1ABg6VKGogOanYeLyQ JS0LcH9RPM8vHZltJ2oyE jguhutuV4wWsn+W3A8vJY 0aWVudCBpbiBh IEJlZDwvdGQ+YB98iu51K 7WmXmijGdh4LDWvLSS1pH P9kO2xAWUrXFldq8K4yWQ 0K7EvkbTsmk5g h0opBZCcUCvlZ65vyQMpn 7B7QNTrhOF3OONdjAssRn XqtZ23Nzv+HIPwpLhuo0W hOeemz0pkg6qi gDe2VuDbPTIjvmNbmOmdI GG8g7FiQt84K84oRDojUC RoPSIzMCUiIHZhbGlnbj0 ouC1kMh4+PGNv eRN7uRO3tK4wKaHhBoR6Z EzoV884ZaHvhIYoEiwif7 ypt3ayvCw6LfGuFSQxcyV stWwjGKI7r0Mt Ho13N3SoqRqmk7QsAhx4v c09qWFhx5G5sOE8B0SdWT PqwdbncXBayPllRR7pYXU ipzboWJSknF7w YGNrF8c3XsPzSpX9PGhqZ 6HrvgU2XSRrkHUdFUEaeN VOrP5rrrpqs6lxoyluQuT aVWThROs6YAi2 GGCtfCjxBoPkYQS1VoC8P QL1yRIxdB4byKuenqjfnN 9wOyc+PLi2l8gkcUHbHE2 ezRC2JV37NE25 hSGfj8Q7yFV1P2EgUJTfg ziaxmicqYF2ENPcYBVusM 96Re0rsChsOy4rBXSdYMR 4VSUwsFWdW7Nr jA4uTrUgVKPoTQExB9Qdb YAlOGigG513DYygCvU3IF OxyhOlI2VmPGHclTdrFcH 7n4S7Xw0OSU97 RW71YP24uCMlv0G2iEQ2Z 5YkZYTlxvshcyswlRH5PA PsDACohV56Yd6alWsoJw6 uWBFxUUD9BOQp nSOnG8HrjR7jBzIyGEDtY MQlV8WnkWZzLOalI923VZ yvHoR2UCKudrPtJ0OnRDM rtEppTeC3x7J6 Cq7PBu47RZ62YK86ePXhd 1K6pGK2U4LaQECghhbiks ghgAU0TDLnPOPorB88Nt1 ryRbyDv4lIHLr OPQ4ABQrhVWjD8SqdM0oU bAmIEXdEVVcN9OobNKpID yxN676KWzbPzL4HUZdplB sK3WcYWRooLmt BuW2y3E6Vh9YZFlmuye5R 3RkPjwvdHI+ZV47IXFeOV 08aDTrzFQis5vgjPb6IoJ nEUJeJGI0fOnb PSd (more content not included)... [facility] Provider Orderson 01-08-2024 Provider Orders [id number] #1.00OTGTIFF [facility] Consent Formson 01-06-2024 Consent Forms [id number]#1. 00OTGTIFF [facility] Stress Teston 01-06-2024 Stress Test [id number]#1 .00OTGTIFF [facility] CV Stress ECGon 01-05-2024 CV Stress [...] Bowser MD 01/05/24 11:24 a Technologist: BRENDAN Lion [facility] Coding Summaryon 12-29-2023 Coding Summary HTMLBase 64 KixortfvZYd7xVz+PGhlY WQ+QH3EAUZwI06ixQUndF 0pO2VMAFvVObfaHDCYHTf XXeDjyxVjPP7ahMRxUKNg IC8+UC5iXFVsYcszvOYko 7A7jWF2E93zim4gWRoubK P6UMEgQxNphmyxg0eohIu 6IDcuNmluOyBt CLKkgA01GDD5yL18Lu32m JXryCVhf1hwxZe6NsWvSI WdEIX5oSyhIBlrz1FsXLW lB09amCYbe8H9 ZPXdqKibtMKzDsOgyZZ9g X5cMJipkhuuy9hejgsuIw h3vb34pIJdz5Z6yJE4Z8H hadU8MJGtfQIg HhvljBLKcW7fsqdie9bxz cluXuDxSEZeCAy7ZEb9RW DdtOmzDeZnKW66EDS9WMY vrzHcB4EzAKJl tAcqOpW6s8F2Aa4HB2UTS ltpU3NKVYLJXJrqqUK+PC 71wu25U6CoHtpfScv5MXP dGHN2qEG0zQ6z HCEfPYxsw2C3iIB9B7Gcm gHyfx6km8fkNSExCEwnM0 3ltTBlr5L7HORebFO7TUL eoBcpMdHaqC74 Oyc+MHVxuCwsy0JdHrgvx 3ygc4tttXx0YnjkCMTtee EboKvpCXU0h5RcWi7eKRJ pcGP9pLF9qZ9m UsRwYqI0VXegV959PpFcc LKoScsbU30fH2MhcAP+PH BwIbg2JKJoyZmeCV0tE5F hZGRpbmctbGVm dUqdQD7pUCFakhnwHUSlq C9eLVLmU7k1RwEiHuG3TV ljP7BrMGOnokpaAn15oU7 iOfCpWiO1AHft C7NhuaE7IJNvoZKxMJbqM BF0E72kw7Y3PXKkNQDtZZ J3iVT3rE1nbHatwukvyQX mdDsgdmVydGlj MBniBKmfZ340RTGejQcfT kNvZGluZyBEYXRlOiAgMT AvMTQvMjAyNDwvdGQ+PHR sLRQ3hJrxYVAl dBYqELvaRr8bqWtdxLdkR X2kANCozokeUQIdqC3bON LppHLdnDqfAE7sFCRhlpo lw762KrXwYCB8 DVHciPWaB1KlhQ5vGcNlH QYmFOTqV5FxtTInHDorM0 46GNmlZvQ3BQIkjsRlF4E sLWFsaWduOiB0 e1H7Uf8Vx0CdxvxpL7Cby XBgRjYjLbobXAe8L5FiTc wvdHI+II35ZZJkCY10PUq 2TDM6rTetJGcs JVNtF9HoiY6oJhSePUSjS GRkOyc+PHRhYmxlIHdpZH RoPScxMDAlJyBzdHlsZT0 uUz7gZCAkCZXl eFoazYZdDtTdc8jsIZSnH XpgPS8qdDjdD4OrtNA0DT Tym5m4Gb21D72wB7WzaUL +ATObzQC2eHZ6 zE5nCoWmAfA8UIznH065Z lNcbJLwKauda3pzm8uljZ s1IhR3IKStcwKamObdLGP 7b1MqMs14D40b IHdpZHRoPSIxNSUiIHZhb Sitkq7tqG4lWf0+PGNvbC P2rFY5nG6aAkQbNuF7JYy fE969CuVcuXWr Ehktm5nth0spvBw8ZvSlN KVdmgFemQkxBTG1w4QsTh 99L5YthYjcq2DpWlw3of1 5mNFzy4T7wPK3 C1WgUOPnzaqppQKcaVcnW A0wTZWsgkncDFJffN7pGQ BaU2u7IyVbNyA4RIhyY6T hbqX2IZHssJQr TXGpoCHCiS7jjafjk3nkf djiDoOyECRfZAz8JYq1LS YvyDidMqZvJNW2DsR5XXG 1aWBklP6leLde eslqoP5sUtt+PTP0bCUoy GEANZ9fHbiabLA+PHRkIH N7bXazTQylTIEnxW5fEDI eO7e9IzGhGtQ8 ZQaxX2SybvP2WASxoGWqJ MEapHCDsZ4hbtvii7lsth zbOaAcJPPrMEs6JCs3AWM saWduOiBsZWZ0 SuB6DGQ4oCQjyH3jsIqfn ffglL4aBrp+QmlydGggRG Z4WMj8Z7IrOcl9SUVuvOn fDS8cjKGzMNcz Yj9tnDambNtyVN3hNFLis lsuc568BgLef5brDSCogO GmNTzxXAO7C75pk2E7QEV hXMTnAKA6vNO2 yA5eqDwwrqwarNLmcRhhh bBnrKkgQHssGJrcY983IN YmnTwxZgQaEQn2U8ZpNgh 0WWWycGumIT2l qFUqYAqmNy9xgMascTuaX S1kXGEbwpjhh490PeUou6 ecKLBaiPBjBWvaHDS9M26 vl8R4WFFuVXDr CQD3eCQ9iW5rmMmjmujsg GVmdDsgdmVydGljYWwtYW xcZ600BRJilOkvKiYdiCo 7U6EkEsb0MQHh fHuoCL1mmGUlZOkvOd8xc DygcGduMU8tSYBflesec5 27TcPwb7zwQQPdnDVsVTh fUVG7R57sh5W0 MUNdJFDvNZC2qQR5kY3tv GlnbjogbGVmdDsgdmVydG hvEBzsBRduR616CZKuyLt nPlBhdGllbnQg ECsxQMf3M8BzXsdxqTH+P C68XJRdTT23fQTmvYCkf3 hvhRo9FwPwXJOvSGJ6yNr zPLzmf6HmDBWa L52clJOkt2X6CLNdhAngm EGkYvIraZY1sZ3aGIqkwr xsd7ahtfknOixzf9girs5 5kU16J39xCZss ZHRoPSIzMCUiIHZhbGlnb h1poV3rMj0+KUOkfIF8cZ M6xC0eGLHlFdV3NWpxB97 9InRvcCIvPjxj u7olr9gwjBk3MlZ7IXHek bCvvLdkNSM9u9TdQq71H1 9sIHdpZHRoPSIyMCUiIHZ itQxzhp2ybB3x Ii8+GJOiyWA2yQQ2mR2uK kRrHyR9PEbcY764PkMtvG NvEfnaA36lC4OrhRM+PHR yCwh2KZAxrCxy HR5aeWYuEWgwVz0vBIP8N fFpGmYgPHdjO9KqLXOvks bxbmalwLY1EMRlKLRqmU5 1Py1vnOcbHKOl pFNEfM7xzddbw0zxkwnbP jLyIRNvSTv9KYl0ULHboP qvMsOmLMZ1RhA5VUY7hCC hsE5hnYfhnfkj pY6hR0ZrWRBwbyqcTn07d C0mGmVnVtI6ETxpFbc+SE FZTA8EIAFSBKXMMAEfFAG BQM85GC19cRNr b2C3eZQ5W3EmALItuqiks fudgKT4HYMrLNXzvU39zV CrEOttGp8ed2F3l687LZP lXEXfuP50Ox8g mIlrPXGzzGNLeL3ghowxz 6ruxcgtQnXmEWFaNEi2KW h3HREtsDzeVjIpJTB3XtL 4EYR7tAYeqT8m aTvijfqfgQ5uCjq+MDMvM HAmSOl5YFjozRI+PHRkIH Y8tXjtJTafWJOccF7jCNE sW7y9HtVrGwQ8 DJisA2KqSWPvlvxhMt05s T8nLvOvJdY6BCrzV3Nnyn Q1YNBpmKEsWFjrLUC8N28 qx7R6AUEoEYDf PDD2sIS9qL3waAvizlazf GVmdDsgdmVydGljYWwtYW hwL184NLNijUpdEsWqEFo wLYZePK12UC06 fNJqw5C6fZP0T0UhKEJch wazfmdsdLQ3MDRvPYIyhR 87jKDiFTeyLi6bf9W0o76 1TEVxMQXsxW77 Ij6eaOhoJKCisNGBwH0sd riot9bkdppeHwVfZOMiPU m4VEm7BFWuqFhjItAlNBI 5LkT5WDF9tZEg aD5nuAjstiletR1cLus+R tOFPQrRRC38WD91eEOch1 X7cDU2B8OgEWQptmhugfp xjGQ6LTMzSIWa cS43zWVbZZawDg3hl2O4d 353ECKcJRCtoP84Fu0ooX iwREYsgCCZeS6fohwon6k vcjogIzAwMDAw WGe0DMz5ZJWyyEusQtXmD HM9GjQ6QFQ8tFTfgU9zwS bhjggjjI4hOop+CKF1NZQ 9wqjqdch2A6Qe PjwvdHI+UV90HUPkWE60l HNllPUxw2yiqWv5SfKeBF GsXIM3kKnpYWndb4BzYCY qY87ttIDaz1M0 ASAkyDjgtLFjRwOuwTK8i I0bCUftqzusb7sdzydfPz uem9yklt78lI86A07fBKc pZHRoPSIzMCUi UYEhkVunrq2vqF0aKv8+P KSbdQL8vOX4rN9iXnLyOs Y3FPhfG123SfYkiCBxAma yk9ugg5wasAd1 UiEfVGUgigWmiXzkSIO1i 6ZkCw83J28mZNxaXPMkHE FzGNTnNOYwaXnybe3nbR5 wIi8+VV4tc2hn fa33sG36tHS+RDCmCBJ6x IvzMYsgNJEjfJ4zFZieQk T1EITpQsWoyH35vPNpQWc aGh6hgZaesEts ZH2fNYIjjbqbu305PhHrx 4azWCUmaYEoLKvuPEK8I0 8jm2D9XNMhTGIqMSP1hKQ 3bA8fiIsewxop bGVmdDsgdmVydGljYWwtY HayL596NCMnqOvvYtEhgO QgO8dcgfBWKJ2tWxtpxKC +SGWaZUY4hZca UZijJPThrT0xOXUaX1e4X cMeJyG8BFgwD9ZvwuD5SX MyvZTbRYChzCZXeP3tlax gx5rfxbmcUcOn JZIcGWh9LYb5YMAcrYkjE lGsITX6VfB4JSG2eDUfgR 9scZuimyxitO0oCzr+Rkl OOjwvdGQ+PHRk OXH6vDnxYPdoMAJdaQ4fJ RKpS4f2UeOuGqS0HJyzT5 LcgzX8ZVRjsWFyMDHxbTG MpM2kvxayb5nl tbrwYvPuERHwALc0PEx1W NDlzKhmXmGlLQW3KmC2TJ N9jJCivK1ixJtzmwdkrM8 wOyc+TVJOOjwv dGQ+JEVxSGR5vBoiSUlvC MVduY9zEZAdE0g0BbNeMn R0RRuqY4ToegK7ZABfxJC vSSPezPFPxL1d uuhin2trgkauPyXiWCQuC Ff1VTo0UQBqdIppBqFzIF F3ElM7CDX0pBOvxH4tzLl yuuohkU8oRmm+ JFZ7XVZ9PM63QP59Q6DuA jwvdGFibGU+PHRhYmxlIH dpZHRoPScxMDAlJyBzdHl oZW9tCk0xWQTg LWN (more content not included)... [facility] Provider Orderson 12-29-2023 Provider Orders [id number]#1 .[id number] [facility] Progress Note - Nurseon 12-15 Progress [...] on: 12/26/2023 10:51 EDT] Sohail MATA, Felicia Love [facility] Consent Formson 12-15-2023 Consent Forms [id number]#1. 00OTGTIFF [facility] Inpatient Patient Summaryon 12-12-2023 Inpatient Patient Summary [facility] [address] [id number] Patient Discharge Instructions Name: CHINMAY KNIGHT : 1975 Patient Address: [address] [address] Primary Care Provider: Name: Provider, Stewart Phone: After you are discharged if you find you have any questions, please, call [phone] ext [phone] to speak to a nurse. Discharge Diagnosis: Prescription Information: If you have been given a prescription for narcotics, seek immediate medical attention if you have any difficulty breathing or any sudden status changes such as confusion and sleepiness. If you or anyone you know is experiencing suicidal thoughts, mental health, alcohol and/or drug addiction problems; contact the [facility] 07/10 Crisis Hotline -Text 4HVPT eg [phone]. If you received any narcotics, sedation, or [...] business decisions or sign any legal documents [facility] would like to thank you for [...] Comment: Dallin (more content not included)... Normal [facility] MAGR Intraoperative Recordon 12-12-2023 MAGR Intraoperative Record MAGR Intra-Op Record Summary Primary Physician: MURALI WATERMAN MD Finalized Date/Time: 12/12/23 12:39:40 Pt. Name: CHINMAY KNIGHT/Sex: 1975 FEMALE Med Rec #: [id number] Physician: MURALI WATERMAN MD Financial #: [id number] Pt. Type: D Room/Bed: / Admit/Disch: 12/12/23 11:37:50 - Institution: Case Times MAGR Entry 1 Patient In Room Time 12/12/23 12:31:00 Out Room Time 12/12/23 12:39:00 Anesthesia Start Time 12/12/23 12:34:00 Stop Time 12/12/23 12:38:00 Surgery Start Time 12/12/23 12:34:00 Stop Time 12/12/23 12:38:00 Last Modified By: Catalina MATA, Crissy 12/12/23 12:39:20 Case Attendance MAGR Entry 1 Entry 2 Entry 3 Case Attendee Renee Dean MA, Kelly RN Heintschel, Sara L RT (R) Role Performed Architectural Technologist Architectural Technologist Upholstery Sewer Time In 12/12/23 12:31:00 12/12/23 12:31:00 12/12/23 12:31:00 Time Out 12/12/23 12:39:00 12/12/23 12:39:00 12/12/23 12:39:00 Procedure Medial Branch Medial Branch Medial Branch Block(Bilateral) Block(Bilateral) Block(Bilateral) Last Modified By: Catalina RN, Crissy Arnold RN, Crissy Arnold RN, Crissy 12/12/23 12:39:37 12/12/23 12:39:37 12/12/23 12:39:37 Entry 4 Entry 5 Entry 6 Case Attendee Georgina Rodriguez RT (R) Aaron Dias THOMAS F MD Role Performed Upholstery Sewer Scrub Personnel Surgeon - Primary Time In [...] Diaz RT (R) M CT Role Performed Architectural Technologist Architectural Technologist Upholstery Sewer Time In 12/12/23 12:31:00 12/12/23 12:31:00 12/12/23 12:31:00 Time Out 12/12/23 12:39:00 12/12/23 12:39:00 12/12/23 12:39:00 Procedure Medial Branch Medial Branch Medial Branch Block(Bilateral) Block(Bilateral) Block(Bilateral) Last Modified By: Catalina MATA, Crissy Arnold RN, Crissy Hernandez RN 12/12/23 [...] RN 12/12/23 12:33 (more content not included)... [facility] 12-12-2023 MAGR Preoperative Record MAGR Pre-Op Record Summary Primary Physician: MURALI WATERMAN MD Finalized Date/Time: 12/12/23 12:51:12 Pt. Name: CHINMAY KNIGHT MAE /Sex: 1975 FEMALE Med Rec #: [id number] Physician: MURALI WATERMAN MD Financial #: [id number] Pt. Type: D Room/Bed: / Admit/Disch: 12/12/23 [...] By: Megan Hamlin RN 12/12/23 12:51 Normal [facility] POCT Glucose Levelon 024 Glucose [Mass/Vol] 137 mg/dL High 74-118 [facility] Comment on above: Result Comment: OPR_ ID=[email or web address],TGC FLAG = False,Meter:[id number] Telephony Engineer:[id number] Ager Jacey Performed By: #### [id number] ####[facility] (DEFAULT)[address] [place] [address] Patient Handouton 12-12-2023 Patient Handout Normal [facility] Capillary blood glucose melissa urement by glucometer (mass/volume)Ordered By: Natalie Garcia on 12-09-2023 Glucose [Mass/Vol] 137 mg/dL Normal [facility] Comment on above: Random Glucose Refer ence Range is dependent on time and content of last meal. Glucose of more than 200 mg/dL in a nonstressed, ambulatory subject supports the diagnosis of Diabetes Mellitus. Result Comment: Tony Glucose Reference Range is dependent on time and content of last meal. Glucose of more than 200 mg/dL in a nonstressed, ambulatory subject supports the diagnosis of Diabetes Mellitus. Performed By: #### G LULS #### Point of Care testing , Glucose Poct Glucometerson 0 12-09-2023 Commemt1 Glu2: Cleaned Meter Normal [facility] Comment on above: Result Comment: PERF ORMED BY: [facility] [address] [place] [address] PATHOLOGIST INDOOR PLANT TECHNICIAN CASSIDY LEONARDO M.D. Performed By: #### G LULS #### Point of Care testing , [place] 12-09-2023 L Specimen: [id number] Received: 12/09/23-1640 Status: SOUT Req Num: [id number] Spec Type: Surgical Subm Dr: Natalie Garcia, DO Tissues: A Colon Biopsy (SIGMOID POLYPS) Procedures: HE/2, Gross/Micro L4 Age/ Patient Sex Location Account Attending Physician Chinmay Knight 48/F [id number] Natalie Garcia DO SPEC NUM: [id number] RECD: 12/09/23 STATUS: MAXCynthia OLSON NUM: [id number] ANGUS: 12/09/[address] [facility] [address]: Natalie Garcia DO ENTERED: 12/09/[address] [facility] [address]: SPEC TYPE: Surgical DEPT: S ENTERED BY: [id number] RECV BY: [id number] ORDERED: HE/2, Gross/Micro L4 ORDERED: HE/2, Gross/Micro [...] Description Microscopic examination is performed. CPT Codes 44914 -------- -------- Specimen: [id number] Received: 12/09/23 Status: LILIANA Kayy Num: [id number] Spec Type: Surgical Subm Dr: Natalie Garcia DO Tissues: A Colon Biopsy (SIGMOID POLYPS) Procedures: HE/2, Gross/Micro L4 -------- Patient: Chinmay Knight [id number] (Continued) -------- Signed (signature on file) Jeremy Spencer MD 12/15/23 1447 Normal [facility] No Panel InformationOrdered By: Natalie Garcia on 12-09-2023 Bedside Glucose Comment Glu2: cleaned meter [facility] Consent Formson 12-04-2023 Consent Forms [id number]#[facility]. [facility] Cont[facility] Substances Agreem entson 12-04-2023 Controlled Substances Agreements [id number]#1 .[facility] Outside Recordson 12-04-2023 Outside Records [id number]#1. [facility] Progress Note - Provideron 0 12-04-2023 Progress Note - Provider [id number]#1. [facility] Coding Summaryon 12-03-2023 Coding Summary HTMLBase 64 YayfuinnEMp0pPv+PGhlY WQ+XU5NFVQhF76avLTuaM 6rK2WMBIyZLdhuPTCLEUq GShIyfuHcTD8sbIMtLETk IC8+CX3oMGKdYqlcsSMyh 9X6zGG4R51zff5iUMmhsT L9CPOnAeXmxxhvs8esrWo 6IDcuNmluOyBt OVTneD34UCC1zV63Ne02v FVxxYXqz0idgYa9SaOkAO HeOWU0cNzbTNvvf9OaWUZ mO35yhXCeb2R5 TJOioTnllQCpIfNluYN8r L3vTVxxzryrn5sbsoipRw p2ph73uGJrr2E9bJS9O5F eopD4GNChfVTw FnbyqHLKbK6tjopjr2wpm ftzNvGcYAJwZKb4JTa0TY AbrVhxKhFeDB85ZCW9SRV avsXlI9EiPDVh cTgtAsL3v5Q1Pb2AA5HYV vptC3GPFXKWDBevlPU+PC 31ev81F9FyBpnfLwf4GHR gGDP0mCX5fO4h JAZtKVqqg0J3aVQ5D4Azk nSvyz5bs5veCQZcTCvrM2 5swJMmp5Z2HWHhlGE7AAO bfTujMlEjkG64 Oyc+BMCrsMhjo7TbTbdmq 4njp4crmQu4BqnbMEMvzy GtlPiwBRC4h6LsZw0oKXS qnWK7mWX8eE4y SyPzJaT8PWuzV031NhHzd TLfGmkgD06cA3GqbYS+PH CaYhf7OXAjcFwuFF3wZ7T hZGRpbmctbGVm vMyoRF4xDTFgzyywTPMqz S9qTJYjN2j1JnGuOwV3UJ rsQ7UyRQYsrvpdFa66qN4 zPtFnTsS5BQfs N4EsxhP8GYYadTEsCPmoE ZQ3C82ma9L2UZQjQYOdLK X8gMD1xK7ujErigfmzbFB mdDsgdmVydGlj ORhhXMjpB476HIXnqGdkB kNvZGluZyBEYXRlOiAgMD kvMTgvMjAyNDwvdGQ+PHR wURD9zPqqQSOj eEDvWZjrSa6guVouqWolW N9oFZJzcvydAERjpC0iTN EuiNVwzFgpRJ2oJQSutsw ju920OnXpEKY3 AYJhpWXvE6BgrX2iNoHzX RBwUGXoL3QwrMNcLCpzQ2 38TRmxOxD2SCLmfuEwA9W sLWFsaWduOiB0 y4I2Gg9Qb2ZrzgneK9Kbh BLiFyFnHytbOFy7R2QxGr wvdHI+VV23ABXcQW55SRf 2SIT7vTpiRDaf WVKrB3KmjP0nSnDkYTDeO GRkOyc+PHRhYmxlIHdpZH RoPScxMDAlJyBzdHlsZT0 jQq6kLVRbGEOh tBnihQGyXvSnb7qoVFSpC GpnLX2imXazY1IbfCK6JN Fsi9w6Ux11G09vI0TiuHI +NMXvdDI5mMR3 vW5wAmEfBjA7SGyoM579V bUkjPVaYcstg7dwp1dprU g5BfP0ARPtcxYnnQyuZIJ 5s9ZoSo90P28w IHdpZHRoPSIxNSUiIHZhb Zixip1wvO7uXi1+PGNvbC I2mIW6dD3fAeHzFiO4XZm rF311UzVzpGTz Gvvlo1xno7fqjFq5VnSqV MPdtxRnaMsoRUW6k1XlKz 25Q1QwzHmaa9BmBex4pv8 0iQLny6M2uMK6 W2XpWIOhwsnwsKAwsYmhV Q4qFAQaedprGABxfL8wNK TmP1r9NiRvTdC8ANhiY5Z huxZ3VBQzfXEk NQFqvODXiI3gedztx9itf ecvMbKgEDKsRYc8VPk0JP TyxDneFhNqXFM0NmC2URX 0rPEzbT2rkZkg ezsssM1gPpc+JJF0nZYgp OZKFW5lAbttdSP+PHRkIH P0cZynQJqzFBZpgD8kOXO eE6d6YdBhWlP4 JDonU1CdmrR9OSVuqGHxH UPwmIKNvL6irmhjz0zeku omOyReFOCtHHb5FWd0FLJ saWduOiBsZWZ0 VaZ7LWP0xRYxsL4ryWjhq pwfyP1yTdh+QmlydGggRG S6BBm0P5PvTsb6ZNQfnHd aGK3nvUXpDBda Aj7iiFiikGoiXQ6sSYVkb dojg192KtMdp8wnNHMtnG EkJNolUQQ2Z32py5Q7MYP gCPGaSCZ5kQU9 zK2yeMwqksxadEAmoDqig kMoyWaoSUlvQHyfK088QX ArgHcfNzGsTJe1W2UdOla 2RQTcfAzsMW6p zRKpPJdnIb1ebCuxaGvuA D8qBHBqoxrtl247WbUpo4 ixURXdsIXfCChfDSK7I40 vw5S7GHIlIRFj LAJ3vLI3uN0xnOejwixpr GVmdDsgdmVydGljYWwtYW xmA455CCQdaGpyQiAoxKc 7O6HbJap3FGXj nLxuDD4bjIYwEFnhGn6yi KfldDpwSZ4tMQXnjysxi4 37NuRlx3erNIZhoOSzGEj oRNO9W57ul9D8 YSVuYEAvFQK0aVO7vK6co GlnbjogbGVmdDsgdmVydG rpAUsnXMbhZ908YVXenPp nPlBhdGllbnQg CBfyPJe5X3SaKhsgpRS+P A75OLZcJE00hQFizQPmb1 auxQm5CzBaLHTpHPJ6gNx gVYmll4IjOFEv I36iuRSra4H8MKZcrLhik DQpLbCxeKF5hD9vDVnbex efo2tcgfvrWtqnv9bqvn6 9pA41X26jWFvj ZHRoPSIzMCUiIHZhbGlnb c5ikR6nMg6+UJBedCG2hF U4wZ0qUUGdBaS5CYfzM26 9InRvcCIvPjxj e5kuu8kfbUx4VzZ0QWEzj vMieTwzOIB0o4IcVz57L4 9sIHdpZHRoPSIyMCUiIHZ gyKljrd4czP1i Ii8+DYUauCH6nZT8sI6mF eDtPzD3TPqgE520KdUxaF GrXwneD18gL7WijUI+PHR xKxb4ODUugHmt RO6xgGKxIVdqUg0gNHK1C iLuXiAtTCmgV6XjODGuyq yslytshAC6CAGtYARjnP4 5Ic8heNtpNSNv mRGHeV3sbhqsw7ohkztxO aQiRFOoEGf5CZf5TBHqpI rzPaToSDX2BwC0EOI9zYD fkJ9veEkduynu eP3oN8GsXIYtuevmKd05u B8oKvHfZpI1ZNqaLff+SE FGEL8CAQNKQYPOGZRfVBH CMW13PR33wEIu p3O4kAR2Y9HtPWXzesidb dgisBB9TMHjTXBwlZ27wZ JdKGbxVp9go6B2r597PNA cXLNakA56Ad0t kOesPGHzmFSCvG9fiogct 1xtrslxWlSxNRAkZQg9XM e9FXGlpKnoQgPdEXT5MqH 7AIM9xEKqzK0x dFzamgdouQ8rVym+MDMvM OTqIPn4BXsoaCH+PHRkIH R2tNnvSIekWEIzrT9iPST dM9o9RvIyYdQ6 LBarV6GtBCIwmzalSw72c U1nFvRcMrY6HSboO2Fzym E4AOSbrKCrOXtzSSH9H10 au5F1ZHPnROEs FJZ8qLJ0sI7ttRczqvrzh GVmdDsgdmVydGljYWwtYW nxD264HSTrwXaiPbYfCRw yTZCxKY04VI52 rQNvn2Q5sYB6M8LhYIMkk mxhuulezEF9KFDbPOKrqR 49aKQzCDblAn0no0T9y77 4MOKdKEVpcH32 Fu1dwPcfZKHytYAAoT4zp zwiw5lnnmswDoAhJROiVD r2GXb0KEEvjEhwOdSqKWE 4ZgM7PTN6hXIw dG8khEshyxxmqW2hYdr+R hZYEJyCJR80QH38lGOrr2 Z6vBA8Z5JnRJGxqsvmnnm seIF3HNDoWVWg cV01zOWbXLytRb4sj6L4l 137DBPuWDXegK73Ww1vfX tzTSTswJLKyU4qaelzr1k vcjogIzAwMDAw SUt8ADt8EYKyiVgfRmIqH GF8MaB9XZK0zJJshY3lhB mnkgrouZ9aXbk+W8Q7G6J kPjwvdHI+PC90 OUBsAY48rSLtvLSdh6box Bw9SxKsWWTlKSZ2jCdeEH qyi0NgTSTxD93swHSto5G 6IGNvbGxhcHNl ExZhhUU9fB0cMEjigkpcm 8kiszpwDxtpz9yqxa55cA 59K02mFJguPYNjRWXeRIZ fCOJccHtofg5h yJ3vLs1+BJChjRG1hSR4f A6cXhUuWzH3IJgnI605Gc TbyJElDilke2ktn6kwkHt 9IjIwJSIgdmFs nOthMPL4t2KwJc12Y14rT HdpZHRoPSIyMCUiIHZhbG xkka4ccO5cSo0+HD0xg7r bqa21cJ82iPK+ QPMvPOE5gTgjDEreXOCty S7rGEfnDaK5FCUnPeIgsD 73qOXlSOwnFo8unXdchVt xMV7kBWSjxnyt w469JeDqw8isVJSkdMBmZ QosKCL9L85ri3S8AAEeOD FuEYX9qHU1kB5tkOzjljh gbGVmdDsgdmVy nBezKUqfMSydC247HJJgk FwcTwVfmDMkH4dpukXTOS 1lOjwvdGQ+GJVhLTC4mUl dZDclSBDkdT2c NKFrV0g1YvIkOwO6ULpuO 4GtbtW5OFFpjPFeZRRkcO IMxC2hyezyw9ucpvlaZfT oTZToMYe8GLh3 FFObbLroIjPwLOQ7UqH6U AE1hQPhvN0oxElflwhvsW 9wOyc+RklOOjwvdGQ+PHR nDGR6aTrfYRgi XIKyrL2mGYHvS5r7LbImM sH2JUxvH6JmwnI7BOJhuU DuTBOtbQYWfZ5qvsvdu2w vcjogIzAwMDAw WXm2LVj7TZBxbVehMrVeV NV2MuZ2CCR7bURvaN7htK yfsaqboB6gTrm+TVJOOjw vdGQ+PHRkIHN0 mPucRKciNWVlsV2pXVXwV 7c2QkTwKiC4VJnzG4Wubp U3MLLjdIRyUTVycIPJoN4 whdnoh1oiqann DyAnXCLfDXp4XFu3TXZfm ShkNwOxIZK0TuD3LRN9wA XguO1kkSxseafbfQ1zSgi +BZF2YZZ5RW68 KB67W0KkZnvvkPNcaEG+P HRhYmxlIHdpZHRoPScxMD ZvSnEktNohNI4sPp7pUQM yLWNvbGxhcHNl OiB (more content not included)... [facility] Coding Summaryon 09-15-2023 Coding Summary HTMLBase 64 IxdsevsyQSj6kGk+PGhlY WQ+PV6PVPPcC29fqNHrpP 2bM4CSMTdIGqjhRIUENYx XPlXhejMgBZ9rrOLgLMWr IC8+DK9vRMFlAnsosNUld 1N9qDR5U85xwj9wOMzumH M9FUAuAbRlyoubw6wruEl 6IDcuNmluOyBt DOBujR64SAD6cU57Eh51a FWbzBFfw2nquJm8JwLxFN LiFLC8bQcwPPtvg3YlNJB cB29syXTlx6E1 VHLldGzurWQrBjTbtGW2a O5vXMucwklgx4ybwgxvIq w9kc79aGXhm0O3aLH3W7F pyxF6FBJhjBFr BlbnwRSVnV8tmskfd4iss ykoLuGxOVZfXXe2MPb5UL FkfZuhHnYmMU58WNN5XOQ zqaLvA8CdBOJl gPdqUpT9b7J4Hx3RF0QVE sndQ1UYDRWFAGucxQG+PC 89rx06L9IaFkxjRov2EQJ oEVU2kKU2nV1n CIBfBIlwa0G7hHB1T8Amq aQaar5zf6vnUZQhKEjvC3 0toGLbz7Z1QIKokUY7TSA fkTnzOnSeeI37 Oyc+EQJvgJlcg9GdMpnqd 3pmb2awgEp6NfmjKRXyrb QaoHddIZN7m6UlPf2pSHB xjQO4vQR1jH9k NcCmAeF3VJdmP004IbWlq ZWvDxmkQ32vG5SvqQC+PH IcMxm5CXRdyWxtHF4bF6J hZGRpbmctbGVm zJirBK8tYTSafzvtCYJzw O7kDJCoV0f4EhDuNeB9QX vdJ8VjLBBhgmckUb96pK4 lZwVoNaG7FFar N3KhcyB0MQXmkBMgJPwpG DK0X25zo0U9JYBeAYLrFH P2gYT3dK5zzGbxseusxOD mdDsgdmVydGlj MGrhXEfdG487NGEgoKoeM kNvZGluZyBEYXRlOiAgMD cvMDEvMjAyNDwvdGQ+PHR yPRE1yIyxNYTr pTSqEZgxHk6rxMfauRsyZ Q2vIWVwfssoDRWuxW9tOA SntSVvvOljON3zEDBkmay vk799GlNgOTA3 PPXglDJqL4GpiQ4fWsOgE GYaMBOaD9GtiZIoWYieM5 07UCgoNyQ2LCBvudPxV5Q sLWFsaWduOiB0 c1M0Hj6Qx0UhyebaE9Cbc XMhAuHtTzveSMw2E8OzBe wvdHI+AK90GTScFE91MSw 5ETQ3nZhxAZta TMZaG4VpjH6qBqXfIKXgE GRkOyc+PHRhYmxlIHdpZH RoPScxMDAlJyBzdHlsZT0 gMx2kCYOqWKIq rDdcsWDkOnDne3srPLGuQ BcbHX9yfOmqT6JppHT5PL Azz0o1Aw87P05tX5EwsAZ +YNIwxUA8wLX0 qL0oShIwDmK2AScgE807S mDhjVNcVyjej4yhv4glbZ h0GeJ9ADCvndTimUagCTP 4p9KtYf48C96h IHdpZHRoPSIxNSUiIHZhb Acdxm7irS0gKh5+PGNvbC Z0uGX6xC7pRqJzWpG6GTy uL186UnJlxARn Fddrj8mco4hqnTj9CpNwH RIdeaKshVtbXTF2l5QoDl 54J0MfaHbey6BkCyf5bo7 5jAGpk2P1lNP4 K0XdGWBqqcgbyHAuvFmkY N5cZXNiziakOICrhV4oDE IsO1s1NiVfMuB2MMqaZ8N sefH6AXEmoMSs FWKuaJODwL9rjpnhc8hpe ludPoZhKBTjNQg4OUt0CU AcdLhoRwElZRX8VvH9NRZ 0tBFpwG6cyZoo csfyjY0lDkh+ROH8nQShp WRQKD7xCywpbWP+PHRkIH F2lQvaWYgzNQBbpI4oPXM kU6b5MzFrFcY3 JIojV9JxpgX0UAJvmJCkD GQwsCOVzL4jxaogz1nzhw kuPrTtNNFvFMl5MMv1CJC saWduOiBsZWZ0 XqL5FCX2pIOpjD0ktZsta mbqmZ3zNmw+QmlydGggRG I2HUt3O4HbKac7FAXiqDc eRC7yiANsTIut Jb5wrPpaqHkvVT4qJDKnj fpqf887NfFix7ipXFGuuH FcZHhgLVH0V89ln5R4MDM nFZEpKFP5tXJ4 mG5ibYjrsqtrhNKmwVujb uKioHruTAcbAJcpK033DL JvfYsyAyAnIJf4C8ZuHyf 3MSQrjIifJU8m fIXoVWbcNz0nbNowcDqtD Q7xZWEajcixy756YfDcr7 bfSRKekDHjGUfxOVO3V70 hy9Q7UEIdKQJl JNF0pFU9kS1wfEunhhdhy GVmdDsgdmVydGljYWwtYW euN769AOFduWbwCkWwdYm 2B4PmPwy5FNUi vYoiDL9agJHtTTrkDx4ac TsvxUmgNI8hXUGiuxitv6 29IjHbn1gkDSXvkVUtBFl nGGW1Q29qm0L6 RPFmGACsHMW6uXO1jP0in GlnbjogbGVmdDsgdmVydG oxMZdbUJejM088KQJfpRw nPlBhdGllbnQg JPvrTCe0R4EnWwbqqJZ+P R41ZLQxJR08uLUdaGIed5 xhlFc3KoFjMJEnOEF4oFl vHOmwh3TxUUYb D96pkYJgd1V6JYYmxYoji GKpFsYfzFW9aT0vQKltcp xdd3nhskzbMwccf6aidp0 2bK28N16aMEia ZHRoPSIzMCUiIHZhbGlnb c8bfN3jQd0+OUOpvOT4dS E5lW3oQNTiSpL8UByiK84 9InRvcCIvPjxj t3olo9rweCc6EoB0LJQqk aTgwXukTOQ7g5UlMx18V3 9sIHdpZHRoPSIyMCUiIHZ mtXagjq3hoO7n Ii8+SHWgiFW9fLJ3lE8tD eQeJhL1GLdkU504LrTknS GlJlhrR02dT5FmtBC+PHR fSnk9HMOxsRrv QX3uhBPyHQvpPp4kJHS0M nPuWxDhJInvM5CcTAJpsp kxcwxsjXI7SWZhRUDksG6 0Rf3oyBtkQRGr pFDJcO2oapecl6oosxvuT aPfHXSgGPr8KGt3JVRhjQ lrRhWmFSF2NbN1ULQ4pMA cbJ7qgQrlvcek yW5hJ5YnSCEpkjiwFi84u Q6hKqGiPxX2OMufLqg+SE BWCX3PWLQOEIGNEUKpODO CCI77JM46cWVx m3F0xIO0S2RxAWPqdbrah xgieTP9WSSvIFTdlH26aS KgHWhyGi4qf4Q3h581SKG dWKCdwB95Nt4a dJytMLGozJZZeV0agdoxs 4lvgopxYmFkTPPhNUi4LC w2RRZfmHfnShGbILA6RiV 6QLC5zGLanU2w mKgbjrfadF5oKoo+MDMvM QDkHJn6PPyjeSZ+PHRkIH R4wHbwWIvqCSFebV1xPBD zV0t3KqAvTzT9 OFkfM2AzYABkhtkuGi34p Y1eWqSqFyW1AMxbD2Uvbx R9JXHqjGGmBCdvGIY2R01 iy9C4FWLnIUTf TAZ3fHW5aK4fsHslbmxka GVmdDsgdmVydGljYWwtYW voQ354UOAdzRfgZtUqJSz cWUBrDW41EA41 uRTtw8S2vQW5I7XyTFJry qalgozjwUD3OWJaAUNbuO 88qBWsXQfeAj7sd1V9f23 2PWIaPHAquQ56 Ys1ygVbqXNCgnIVTaC9ev daoz2irnkfcVqEqFIJdIX h0PMd9SCMfaNpfEbUeNWT 3AdA7BYX1zAWh dO8jmNbwgrlygM2wFmu+R fASLIkORX70ZO53uCRhg5 Z5jEP5S8QeNIHxwmdhotw sfDS2EAMqAZRx nW73xIGtJYrcMr1ac4G2w 476ATDlTVDumE01Ch6zbQ tfSRDssPHFcD1luiyxe6y vcjogIzAwMDAw QDq2OLl6XIPkjEsoWfKoA VI3LpT1YMO0mJHzdU3xvQ iwtbocdS2fXny+H7S6X9H kPjwvdHI+PC90 CXDhFH46oSIwpRDwt6ubt Yh7PoOoDQBdJNT6zVdjAQ koj5CfSSXbZ32avJZwa8X 6IGNvbGxhcHNl NhLryBX4dB1lGRyppiyvd 4fztdiaEskev8zevv42cE 44J74yZQdnICQePEPlVHR zMOYedZpjvk6o kT4hRj7+EAJtbLN6hUA3b F0iTvEzQoL1IFhtH372Nx AyaFAtAbzzj8luf5lmtQi 9IjIwJSIgdmFs wQbbHFP6w8NbOv73N73xM HdpZHRoPSIyMCUiIHZhbG kdgz1dsQ0nAa2+SA2iw5n ycs66dM33bSG+ UUFzPYU1rRunYUogIORny H3zIJuwRfY9SHMhSsVuiC 55uIOsYHuaYs2ktRxhxNu qQK9bNBEdakrj n980EfPix2snKWNsaQWhN NnbHJT0N17zv3E0ZISmJO KjMIZ1iMN8wI5npFfmsvq gbGVmdDsgdmVy uVhjHXsdNQpoZ054SYRup LrbWyYnqPZvA9fxsuAZFW 1lOjwvdGQ+GBNgRMQ6eHh wNBanHJFwoB3h RGDsX8g7NrPxKrP8FZweE 7UmqhG8UGVwfHVzWJXplT FMtW3vsoyuh3tnmlgkLbT oAEQoYQg3SMo4 HKXgzYuoWaQuVTL7ReO0Q YH8rRMocM5mlUxfkujoqB 9wOyc+RklOOjwvdGQ+PHR aIOX5lUjnAGwe YHNpgG2lOETzK6i0FhCuD iK8TVaxE7GhnbG7VOCciN DpLPVvyAUIsM3hdvouj0x vcjogIzAwMDAw XWr8MBz9VTFwvUdgKhCqP TE0RjL7EAF2xZXzsH9riW nkscbatH6xHig+TVJOOjw vdGQ+PHRkIHN0 rEdxKVydYKQiuD7oPRJoU 3p7FlEeDiT4LBynY3Dcun A0GAWphBNjFATgnXCIeT0 ipuscv8byueha XrOzRORqEPa3SLb0HSHyw YdgDlFbQXK7FzM3NIC6uZ AxzN9iwQsqtfuexV3nRnl +YPS9OEY7MB24 EM07R3RxReulsPOzjXV+P HRhYmxlIHdpZHRoPScxMD TgNhVmnYhfZI7bXx9lLEF yLWNvbGxhcHNl OiB (more content not included)... Normal [facility] C Urineon 09-03-2023 C Urine Urine Culture ordere d as a result of parameters set on specific urine dip and urine microsopic results. Mixed skin, or urogenital wally. Clinically insignificant Normal [facility] Comment on above: Performed By: #### 5 [id number], [id number] ####[facility] (DEFAULT)[address] [place] [address] ED Clinical Summaryon 2023 ED Clinical Summary [facility] ? Urgent Care [address] [place] [address] Clinical Summary PERSON INFORMATION Name: CHINMAY KNIGHT Age: 48 Years Sex: FEMALE : 1975 MRN: Acct#: Visit Reason: UC - Genital Itching/Lesions; UC - Urinary Frequency; GENITAL ITCHINESS Arrival: 09/01/2023 14:44:59 Discharge: 09/01/2023 15:34:00 LOS: 000 00:50 Check In: 09/01/2023 14:44:59 Checkout: 09/01/2023 15:34:00 Address: [address] [address] PCP: Provider, None PROVIDER INFORMATION Provider Role Assigned Unassigned Romeo Meneses ED PA 09/01/2023 14:49:39 [place] RNCharmaine ED Nurse 09/01/2023 14:49:45 VITALS INFORMATION Vital [...] verbalizes understanding of instructions given Comment: Normal [facility] ED Patient Summaryon 024 ED Patient Summary [facility] ? Urgent Care [address] [place] [address] PATIENT DISCHARGE INSTRUCTIONS Patient Information Name: CHINMAY KNIGHT Age: 48 Years Date of : 1975 [facility]: [id number] Reason For Visit: UC - Genital Itching/Lesions; [...] is treated with medicine. Medicines may be vtmm-tbi-eefxdgu or prescription. You may be told to use one or more of the following: ? Medicine that is taken by mouth (orally). ? Medicine that is applied as a cream (topically). ? Medicine that is inserted directly into the vagina (suppository). Follow these instructions at home: ? Take or apply jdrq-kio-awhqtcl and prescription medicines only as told by [...] is treated with medicine. Medicines may be yqej-elr-wptzmsi or prescription. ? Take or apply vapt-hez-qhsapdy and prescription medicines only as told by [...] provider. Document Revised: 05/21/2021 Document Reviewed: 05/21/2021 [employer] Patient Education ? 2022 [facility] [facility]. Medication In (more content not included)... [facility] UA Rlwtl0ce 09-01-2023 UA Bacteria Rare [facility] Comment on above: Order Comment: Urina lysis Microscopic order added on by [employer] Expert Rules system. Performed By: #### 5 [id number], [id number], [id number] ####[facility] (DEFAULT)[address] [place] [address] UA RBC 3-5 [facility] Comment on above: Order Comment: Urina lysis Microscopic order added on by [employer] Rules system. Performed By: #### 5 [id number], [id number], [id number] ####[facility] (DEFAULT)[address] [place] [address] UA Squam Epi Few [facility] Comment on above: Order Comment: Urina lysis Microscopic order added on by [employer] Rules system. Performed By: #### 5 [id number], [id number], [id number] ####[facility] (DEFAULT)[address] [place] [address] UA WBC 25-30 [facility] Comment on above: Order Comment: Urina lysis Microscopic order added on by [employer] Rules system. Performed By: #### 5 [id number], [id number], [id number] ####[facility] (DEFAULT)[address] [place] [address] UA w Culture if Ind Standard on 09-01-2023 Breakpoint UA [facility] Comment on above: Performed By: #### 5 [id number], [id number], [id number] ####[facility] (DEFAULT)[address] [place] [address] Color (U) Yellow Normal [facility] Comment on above: Performed By: #### 5 [id number], [id number], [id number] ####[facility] (DEFAULT)[address] [place] [address] Culture? Indicated Invalid Interpretation Code [facility] Comment on above: Result Comment: Resu lt created by rule GL_MAGR_ADD_UA_CULT Result created by rule GL_MAGR_ADD_UA_CULT Result created by rule GL_MAGR_ADD_UA_CULT1 Result created by rule GL_MAGR_ADD_UA_CULT Performed By: #### 5 [id number], [id number], [id number] ####[facility] (DEFAULT)[address] [place] [address] Glucose (U) [Mass/Vol] mg/dL Normal [facility] Comment on above: Performed By: #### 5 [id number], [id number], [id number] ####[facility] (DEFAULT)[address] [place] [address] Ketones Ql (U) Negative Normal [facility] Comment on above: Performed By: #### 5 [id number], [id number], [id number] ####[facility] (DEFAULT)[address] [place] [address] Micro? Indicated Invalid Interpretation Code [facility] Comment on above: Result Comment: Resu lt created by rule GL_MAGR_ADD_UA_MICRO Performed By: #### 5 [id number], [id number], [id number] ####[facility] (DEFAULT)[address] [place] [address] UA Bilirubin Negative Normal [facility] Comment on above: Performed By: #### 5 [id number], [id number], [id number] ####[facility] (DEFAULT)[address] [place] [address] UA Blood Negative Normal NEGATIVE [facility] Comment on above: Performed By: #### 5 [id number], [id number], [id number] ####[facility] (DEFAULT)[address] [place] [address] UA Clarity CLEAR Normal CLEAR [facility] Comment on above: Performed By: #### 5 [id number], [id number], [id number] ####[facility] (DEFAULT)[address] [place] [address] UA Leuk Est SMALL Abnormal NEGATIVE [facility] Comment on above: Performed By: #### 5 [id number], [id number], [id number] ####[facility] (DEFAULT)[address] [place] [address] UA Nitrite Negative Normal NEGATIVE [facility] Comment on above: Performed By: #### 5 [id number], [id number], [id number] ####[facility] (DEFAULT)[address] [place] [address] UA pH 6.0 Normal 5-8 [facility] Comment on above: Performed By: #### 5 [id number], [id number], [id number] ####[facility] (DEFAULT)[address] [place] [address] UA Protein Negative Normal NEGATIVE [facility] Comment on above: Performed By: #### 5 [id number], [id number], [id number] ####[facility] (DEFAULT)[address] [place] [address] UA Spec Grav >=1.030 Normal 1.001-1.035 [facility] Comment on above: Performed By: #### 5 [id number], [id number], [id number] ####[facility] (DEFAULT)[address] [place] [address] UA Urobilinogen 0.2 mg/dL Normal 0.2-1.0 [facility] Comment on above: Performed By: #### 5 [id number], [id number], [id number] ####[facility] (DEFAULT)[address] [place] [address] Urine Source Clean Catch Normal [facility] Comment on above: Performed By: #### 5 [id number], [id number], [id number] ####[facility] (DEFAULT)[address] [place] [address] Urgent Care Recordon 024 Urgent Care Record [facility] ? Urgent Care [address] [place] [address] PATIENT DISCHARGE INSTRUCTIONS Patient Information Name: CHINMAY KNIGHT Age: 48 Years Date of : 1975 Reason For Visit: Itching; GENITAL ITCHINESS Arrival Time: 09/01/2023 14:44:59 Primary Care Physician: Provider, None Attending Physician: Romeo Meneses Comment: Visit Diagnosis: Diagnoses This Visit Abnormal urinalysis (R82.90) Itching ([id number]) Yeast infection of the vagina (B37.31) If [...] and treatment you received today in the [facility] were for an urgent problem and are not intended as complete care. It is important for you to follow up with a doctor, nurse practitioner, or physician?s assistant in nursing for ongoing care. If your symptoms become [...] we can reach you if necessary. [facility] has provided you with a complete list of medications post discharge. Please inform your detention attendant/provider of your visit and for further instruction on these medications. Any specific questions regarding your chronic medications and dosages should be discussed with your primary care physician(s) and/or pharmacist. New Medications [id number], [address], [place] [id number], [phone] fluconazole (Diflucan 150 mg oral tablet) 1 [...] (Inserted Image. Un (more content not included)... [facility] Coding Summaryon 08-21-2023 Coding Summary [facility] BrfforrzWXl2pSq+PGhlY WQ+RX5QOQUlM58esCPnxS 9aX7ZIBQxBOdyeMZJRFVx POdAbwzPsAF8ecIItLDLe IC8+JE3iCUCoVlwwzXUvh 8E4qLG8G62jkw6yGVjfxW I5EDQdZoDilbrvo6tmcYd 6IDcuNmluOyBt DWCnnQ35XHY5vX99Lx77w KDlyZNgt5efvMy1BsHvHE PdIWK4dXycBCkwu7GwQLA aA81opDElq4C0 JITaxNokvYCaXfMlvFY1f A1pYQucrevxh2ccrfaxId k5wj40vTIuo2W5vLP2H2A mtvZ2QXZthKMy PjbtfXJVpT2bzuktc8zvu tteBkRlBXRdSWw6THm6SY AeqKouSvWfHR15SIL9BRZ ytpOgW9MyTUEu uLlnVbK1u5R8Lm2IZ6EYO pbfN2TDOYKDQYyjeOV+PC 34hh53R6UqWavvVfu9PZM iOTB7aIP2wI2r WULiDHplk1T3cCL2S4Evk cOuul1jk2agLSZzEKfcK0 0haXNkl6D4AHGqsFJ4GFE tmMgvTjFjeE85 Oyc+DBApjZzsq3CrUjdlj 7jgz1alwFy4QdqzMOKcvq XnzKccITG1r2VuEx5cCEX uoLG1sQM1cX5p UpVgCmV9DBgqE900TdUed XOtPtnsQ39wQ1XymPE+PH UxYvj5UZPlfCrqIM7tP3O hZGRpbmctbGVm rCctRF7oLPRhvufgDXWrf I2sGCRhH8a9RiXxWpS9HT rjF1KmHKMoufguNk26pL7 gApOlGmZ1RFoe D4JsrxZ5XNDsiUFbBFzxZ AL0A01tv3D0YCDhNOCsHQ M3wZP6qK0ewXvoupobgGT mdDsgdmVydGlj CDjjTShqA852EYXvhAswF kNvZGluZyBEYXRlOiAgMD YvMDYvMjAyNDwvdGQ+PHR cPXO9tQqaQZRr cKArEYlaSm5bsPeizAdyH G2hVGNsuabwBUQqrS9yAT ObwPHpyIhbDL6vGJHsfby wc647SuBzFUX2 ORKdhRRkR3UrsR5eHaJeR JKzUVMtN9GjnFKfHTkjI9 85OCzgMqA3UFWacsSuV1Z sLWFsaWduOiB0 r9L4Mn5Pq8FnknpiJ3Qdn GZhSaOaScxiCWg9N5DpHz wvdHI+GL96MBTsRM44BPl 7VSN9fXleTKrl EJZtS7ZmwQ2jItPmZSAzQ GRkOyc+PHRhYmxlIHdpZH RoPScxMDAlJyBzdHlsZT0 rDo7oGKNuONBa cQdksWZmDpZev4ogKUJrZ VlzFW2ukDywI5JpgTY2II Uun3y4Yi83C29qQ8RogPU +YDPavUY4tGL7 wI1qRhTcYnL3ZWnfQ108T eDdzNQcPgauh2kds4qjuS n7ToU9BIAozhWubOzdINJ 5v4TpHk81N67s IHdpZHRoPSIxNSUiIHZhb Cmnux4ydF4eKw9+PGNvbC T4kPY3gS9pHfFzPcW2XFj bB478WbEcjCQx Ldand9ssg0sxpHc3WsCeY DHwpuZpbUkcBHV1r0AqKm 31P3KwdDjpy2XmWim3jd7 2tYWru1R1zJJ8 F6NkLUXdfvqqrRJugBoqG G7aKVBmbzkoAUYmeI3nVE MfW6y1WeKbIjW2DLfiI6R oscA1LBIolANj JUXsxJNChX9lbzsrw8jch nygWlWiVWSwQMs5SUs0JR FmzNizHxMwBZT1QgH1JFG 8hHCcdR2gpWlc fcjtgT4fAuq+EMW2pMXkg DUSJL8tZxzibQA+PHRkIH B1eQajSBmcHAEumR3bASI gM3r3OsQhMzW0 QHtlP3QqivP1LIShiZHnP JGwvVERaY6jfpcgg8ilyi ymUjIuUENrVHv3MDx1SZL saWduOiBsZWZ0 LeS0IFB5aHBdaC4nuEpix ndtuG8vXfc+QmlydGggRG R8OZa4E8WoXgt4JPSpbAb nHR5jwKNyVIkb Ja0auCczwUhdMX6gQRLaj hmop462DsFul7twAIKntF XaGGdeNTX4U03ow9C0USY bKVKkUDH5iZR5 aU2zqQyjnbkmhIEplNslq fQcsNpmZDsoELcvB240JR FgiMsoAePiJGw6U8AeRqi 0CPNvkYcnAG0z dHFrFLywAu7tdMlvjAdoM T5dEHOtahxtc542SlDrt6 kiXEQohSOdTMscTES1P91 ie9N7BVFdGJOq TQC2nQE4aR2urWwwuuqwr GVmdDsgdmVydGljYWwtYW dwP285JTZdoEsbYmLzcGy 1V0CvIur6SIBm aGsgIY1wxGLjFPzaRg1et TwjpLbrCA9oWCCyvihtm1 03NqWjp7ipQWGpsUCqCLn wHID8I80gt1Y6 ABGpQVHhNHW1oXD3qZ3dk GlnbjogbGVmdDsgdmVydG uiMLyvSMzyI444FJXerQw nPlBhdGllbnQg FMbqIRf5V7KeFqcicCT+P W17GXAkFH74wOWdrQIhm9 ffzXd5MkHoFGSeHYS7qMm fDXgqq7DmFEHf W91dvMTxj6X6QSOhfWoto RJlMmOcpRD0iL2zSQnspo xkb9upjeimNfnwt8apyw3 8oF31R09wZOlq ZHRoPSIzMCUiIHZhbGlnb e5bjZ4mNe1+GWInyRN1pQ B4bB0dNOTtHyQ4ASppO61 9InRvcCIvPjxj d9uoe5rurOl2WqL4KMPqd hZeeJamSCZ0j2ArYj93X5 9sIHdpZHRoPSIyMCUiIHZ gyBwdri0kcU7m Ii8+WCMtoAF5oBA9hI7oD uVkIqC4JOpoK056GcDciP MsFaolL24gA6YzmVP+PHR oEgt2NMWrsQcb IZ1jiBHqSWtsCj0jICK1O fLiLpEwBAhoW0JfCEWydk awsrspeBM8NURzPFYpoW4 7Xu9rfGbtSERh nQTAzK3zjrddr3eitrcjJ qHpHCGlQYm0OYf2UKPgzG hsKfElYMY2BcT1YGL6pYG hoS1rpLtkfltz eY9nL8JaHBDivtijJg91c W5rJwCrVrX2NNccYzz+SE AHJC7BMIXEWFIQYFXtPFr vdGQ+PHRkIHN0 zRugKSqrFRLiyY1iJGBwX 1p8HbJnIhA1ZXcvB2QkJS UpmnvcQg32wT5yFvAxTjZ 0LLooP8VheyM3 WRAkjRWmBZklPBA8N99kd 6T0HWNsNRCjCEM7fNR3eF 1hbGlnbjogbGVmdDsgdmV ydGljYWwtYWxp S496GASbjPzjDzOpBpZdP fA3JcV6H9MyIrf2UIScrY tlUU7ouAVzMKbuAi3sjMg nnYshRE2aYIUu nsusKZZhcZ9kZITunTIus FhgWO1cRJQduizza199Mr VlIPU6MCWhdKFuV3YxbY6 yOiAjMDAwMDAw J4XvvTHpZNcfP068ALifX zT5XJXeuiVvX6AdTRVigZ wvUyU1y2K0Vq53NSQUHVA yczwvdGQ+PHRk YUH7xRxkLNebMBOvwN3aO JVzO8p2JfBmTlK1QVyyF4 EaOOXqbukiOh82nA0jQsP uAjN9MNjvZ6Of guW3QSRiwQFbIPoiZSA7M 42vs7N2EUIpPWUtARU8gJ B8nT4neCgawwxzoUBelVu gdmVydGljYWwt RZsuP808YPPkxCmeTdQGH UFMRTwvdGQ+RWByLPX6tM beWVpkSAKoaR3yZRPnJ2f 8HgBwWoN0LWsf I5SjMASqsbjyLr58kS6nX vYkAnL8FLkoZ8StznI7TV QzuRMiTDxcEGT4J25qr6L 4CYApWQLbXYL8 dDG7kV9mdWvaotcgoQOvl DsgdmVydGljYWwtYWxpZ2 00NCJpxJgaWxDfVHPaXW7 jeTwvdGQ+PC90 ai44R3PdVybePlk7IDIpM TO2eXB7zN2hNOGiYTzth9 Q4wKH6E2TnniTagr5tf7g eUTEwZBgcZ77v wAZzn2G2GVYnzFV9SBUip UguItMfnD10Mwx+PGNvbG lcc2GtMviss8mla5zyuAp 9IjMwJSIgdmFs lJczPJR7y2WqBd84Z79bP HdpZHRoPSIzMCUiIHZhbG yyhk8lqY9lCz9+PGNvbCB 3qFG6hH1jQvCa KbG8TRzvF672CzRxpCTfT dgwm0czd5ayhIz4ArQiLK MocsPuiRaaQOS3v2CcAv8 4A6BgfUmof7Cu Qzy8ze46iXIaq0I8sKZ6K 3BhZGRpbmctbGVmdDogMC 0hTWIiakdjLQGmfO5rFRD kV7v1GbTxUiK0 XKiyB4IaqrY7UHUquQHtD SUllVILyK6zefras4ateh wbFvGjDGGgAFi0QNk3QSC saWduOiBsZWZ0 WyT4SKK5dYHyhM6msPppa ehpkS6sWrc+ZAc4c4tlyR FgPW8ajHH2JN20MG91kEA ja5J1hXQ2U1Dt GMFazujvibmvzQI2IEAcZ DZsjV30Ub2rtHwwOf3fBI WmHPT9PHLkgKCbL7RsmL8 yOiAjMDAwMDAw U7ApyXVnFPeyI750DWyuW xU2HVOhimTzM8ByKBVdnC sbTeT5f7K8Gn2QNQ36NW3 7AK29fNTdf1P4 cNN1A7AgXIRrzoxgnhhic CZ0SVFjCBYpaO61Xi0fdL mvFg1cNWKwEAP2JQGuxIO jM3RuaP6fDzBo RDAsULDmK6CmvPDoNMkxS 449RTzbFaH8SCZgmlTrB5 MbEPHxtHkcFpB6y7J9Of2 DJe23IQ87EO34 rPIzy2J8lQM6U1AnUMXvk qhygnjzcNT2FWMwANObcY 94Gx7wfUmsHa9rEIBqCDN 4EWRksGVjR5Ep dE7zOnVvZMHtFMMcY4Caz EPuKBpzY285ZDypTsL9HS BsepEyZ8TtHFXnmNatCdM 0j1A0Aw1IRUbu zka7R3ZvPesmeMM+PC90Y CVnXO32fRHluNIyr1kgbE o7SlYvADHnOYJ7iJgaPPq uz5PpIBSmX48l bGF (more content not included)... [facility] Coding Summaryon 07-31-2023 Coding Summary HTMLBase 64 KtgdtzrqZVe5cIz+PGhlY WQ+TB0NQMXcZ61lyWLpeD 2sD5EXZKcMLtgbHNLXVVu ZSbAembTpIF1tjQCgBDTy IC8+DH7vUBFlUcfbsPWnq 9K3yWM6U24fxw1tIKkidF G3ALTyAfWhoggbh7xfkKl 6IDcuNmluOyBt DEJgcY50YJO2nZ89Tw56u KLnmSOkq8khaJi0QjRaGB MwHTF6nDagYDmru3VyXCL sU73rgAIab9V2 ODVfvJdxeLCeWvOvvXM6p P5aGIphgdzyu8dkcpdjAj h7kf77gFMta8X7lTL0H9E vvpE3UWBldKYd GdemcVXBxL2rgfgma2neh gpoPeLmSMFlHIr7JYt6GY CzaBtuBsNmAO65VPT0VQS ttqLlE0CkXPBg aKvkFxB6t7O6Po0CL9HBA sgaZ5WKROUMDSbgeOQ+PC 76vr48L4VbUafnXyk3BSJ jDUC0pRA7jD3g JVJhRYzqo4S0mPX6R6Prv yUwtt1km1pmUBDlLXppK6 2epQUtg9M3DCJonSD2AKY gxEqiUpTxyL58 Oyc+SGOfvOpkf9JsWgeoe 3ktr6enbBd5NqrmPZQxlt MgfAcyBPB2f2OnSk0fLXY dzSA7zJR7jF0v CbQaHoP8IOunQ176FkUus XGqEfibH33pR1PctJI+PH VlVla9IEFqgSjyWP9oX5Z hZGRpbmctbGVm iNszAA8cREGprfcfXAAcw W7aMIMjV3t3VuEwDlZ8OA ilC4IoUTOgepuoAe62fM2 wWpCsBmJ6ABco B4QalrK0CRGfjZIhCQsbS KK6U21jw8R5ZEVhOAVuWW V0cUD6vI2bxFwazaipqDP mdDsgdmVydGlj KOkwESibN088VUHyfRytH kNvZGluZyBEYXRlOiAgMD UvMTYvMjAyNDwvdGQ+PHR zGAI9dTpkUTWa zTEeLAqjMt5upXhaoNjmB O3lTCZowqnkAGNvuB6hNQ ZkoRQllBkgMX3sTBUnaxu mb938QmBdOFU2 JBSwgBAoN1TavQ4mNmQaI RFpRKEhG1ThrNXaRKpfT8 35TVnkRmY8MYZmmtDlX8X sLWFsaWduOiB0 b3X9Mw3Kh4UpskxvY0Oif XRvMaDjImabVPi4W5SzNl wvdHI+JY78ILWlGH34XXd 5DQY1pZcvRCqs LZEsZ2IfyL5mGgTwWUTbS GRkOyc+PHRhYmxlIHdpZH RoPScxMDAlJyBzdHlsZT0 dSc1iLODlSWBl uWwndNJoHzYsl6xnQPWwD AomLC5ioDxkD6SjuEH9IZ Fyh5w1Pc04E97lA9ShuLR +IDWxkLU1jHX0 sI4kBaCbIgL6PExbT836K cTpmWXnRbxoz7pig0xbdL x5ZkD9CBQptbPvxLrwHAH 8n6ViRp72I00w IHdpZHRoPSIxNSUiIHZhb Znmqf4sxA0pDj9+PGNvbC F1tSU3lK6yDjXtJtP9HFs fK423RzBpwHCs Hxews1umq1hfgXt2AeAaU RErgvWogPdzFOC9t9SoIl 24Q1PhfAjen0CgNhd3ch3 3oNVcb0E3iES9 J2TmSVLqhjvkpSHevFyfV P4dAJZquvdoCOGqnR6oGQ ZqK5o4TeBzLmD1MVabU7A dpnP2AAWoeOKt RJVnsSIFwU2gepvwc1rrz kprVwKhPAKjPGh9PWr8AS VpqQomUfYzEXJ0MyS4GTX 5fSRfkN2edTep pwcsvP3oAgx+BAC4bGMwf TYWLO6fMsgzdFG+PHRkIH Z5eUhgKQroHEGqiC5kPFO aL5n6UuMbWgK6 UNqqB0JpmjB9FSBlrABkQ TYerYVQgZ5bjtria7xkaj gyZcAeLHEeZZp5TQv3LJU saWduOiBsZWZ0 LsM5SVU1gCPnkJ3mfAqoa tsbcV8gAcj+QmlydGggRG T0PJe5Z3XsRgr7PCBeqRw rQX9glWJhQCbt Sp0tuUiehNopRC9rZUNtr kwbb223ObMzj5aiWKFvhY WmUDdwWYI4A31ns2I9PPQ tPDNdDKE3nSE7 wY2joWqubifniVOpeTtcy hPkkXawUJomYLjdV040OS HaiKuxVaAgRHw0O6FdLzc 1OZFemWelTB0b mQInKDknEe4heEvteAgcY Q3yWFRokdzpl258VfTav4 btJOWdhQWoZRqcGSG3R42 mg1J9YCIhZGDw GYY3tQU1wB4ueDoxboyme GVmdDsgdmVydGljYWwtYW vuG686LWYdfJliRxPgaUq 9O5PlPny8SOXn nNwhZJ8gdKOvMPcxPe5ol ScrdLhbDP9zLIPlrjulb3 48WqNes2ndSKBovXExFFl wXQH0L87ho5U7 NLVlMYWzLDM3jKM6kE1bq GlnbjogbGVmdDsgdmVydG exKStxIOhhG433TQNkzJk nPlBhdGllbnQg UXytGEb3N0VbVfewaZN+P Z55YYSkOM44fSMwkYWap2 labNi2UzQaFJLxWHT1oId uIKsnw6FnBLCo X99ejHUtj3H8JYWnnGyus YKbQwEudID4lL2xXBmsly gml2bgfdacTyboy7nszq5 6dF45V00aCYdu ZHRoPSIzMCUiIHZhbGlnb t2uvD6hOb7+TTIvmDT7pI C0mX1tYMLkMyA5CZygY28 9InRvcCIvPjxj k0dmf5igqEt7PjJ4ALZnz vHhgDxdHCC3e8ZbMb60N5 9sIHdpZHRoPSIyMCUiIHZ ypNhdbf2obP6u Ii8+EZChfVF4zRI6fH5uY tGmYwX4YPgsI632QzXdlA PnReuiU48kG1RcmDO+PHR zVwe9ZRGfcRqt MR4zkOBiRPwnBo3zDAI6J aUmEqYnPMbgL1EnLIWapc ydzenizQL5BGWmSKMnkK8 6Kl9taOtbYXBy jTTFkT4mslklq7fqyypoH kXpSTKdFCc0HPe0VHHyiC yjEwMuDSZ8ZaU8EVW4iRQ wqZ3ajEbgmfaq dR0mZ2YbDJRgvbkaSp74c A6eCuMzAmZ2LDvcSxi+SE KEYW4DPWOVEZJRKPVrAGg vdGQ+PHRkIHN0 eFwhAVpzRWQanC0kLCXiA 7t1OuOrLgW7EUrhF5SfMQ YrfufgFz70oS3cEiMvWuR 0QJnfN9OgqiM0 JTBvlTTpSLzaUQN9G37id 6L9OBBaBUCfWSO5xBA5kG 1hbGlnbjogbGVmdDsgdmV ydGljYWwtYWxp U033OKHrfKeuNxEjBfZoQ gQ3JoF2I2DiSxs4RDYbeT puGD0ctYIoXMixHn7uvOx meUdpTQ0rGKDl xleyUCKkfB1nCJYpfRVze FgaPR8sIWBbqsdwz152Ub RpLVQ1OAKvwILwR5WzyZ5 yOiAjMDAwMDAw H7GsqLUhEAvhP697KTkfY tM7YWMeojFvV6SqJANhiW jzHwS0r7K4Na70GNCSIXM yczwvdGQ+PHRk UQN5jOiyBOriYRHcnE6vI IVcL1j7NpBdCoQ8WFlyS0 YtIZWfmdrcHz42xJ3cAdW oYbT0MTzcO3Oh gjO7ELAoqFHdQRmnUYM3X 74pj7Y3IQTiVAMxIGH4mL E8mD1cpLmhozeleJGqqYi gdmVydGljYWwt QGtgF451XWGqyDioEaWEN UFMRTwvdGQ+LVYnCOV5oI ciFUqyCIFarL1qZGFuO5r 2ZpZaViQ9ZTfu S4HsEDAsnjucIx24vT4xF jXcAmO9FMpzK4KwqtR3VT QneTBmBUndKVJ1Y96fm1N 8YTFmQJXrKHK0 dYM0vR1umRakoqpsuLTdy DsgdmVydGljYWwtYWxpZ2 70WYRyhJygCxZtQXTlQF0 jeTwvdGQ+PC90 ab45S1JjHlnyYuy2SBXbT UU0bOJ7lJ0sAEZeZRthi5 R5mZP6H9NiywNlkf2kz1c bKCFhNBhnM23z qEBev7S1HJQyfPV6UWNio BfxMqOgqB89Yyd+PGNvbG prq3FyJffot9jct3loaMo 9IjMwJSIgdmFs yCfhDCD1n8PqPs31W57xN HdpZHRoPSIzMCUiIHZhbG vdwr7fiG5tQz2+PGNvbCB 5bAO2zQ9aEdPy UpO3WYfwA647UzUvqWHsU rntq3dko6ctqPl6OvVzGY AodwNmdSdaFEZ3n6LdDp2 7A4NwaYiem0Qa Hhz9bz52dVZgh0T9nKI5W 3BhZGRpbmctbGVmdDogMC 9mSITfdhgwXSOqbV3bOSW jO2v4YjKlMsA5 QQjeT4BuaiZ0HRSuwPTlT WZgsXXXeY2dmnodp0whss glBrZrBAHtWIc9JDx6ZAZ saWduOiBsZWZ0 PvD2GXR0xIYaiM6cqKbjs tdmvT2lSjb+NEm6x3vszW EhDD0dlNL5YW44AJ29iBK ua9I0pKZ5E0Fp JCLmvkqztlbfiRR9AXKmF BJrcY13Bm8pwGhhIe1mRC PqOAN9FUCnrICkQ9AzjI0 yOiAjMDAwMDAw V6HebOKyLCgiV195CDalA zJ0MODkowJkL3GbMTUbrD rsOgA5e6E5Zc7HMB67SP5 6AZ72sOZjq3O7 oXD5M6QhHLVpqikzynaib EV6NBNiIFTkbO47Tv1giO mvBr3aWDPoGTW7OAWfdJW qI1TlzE8iCiHv TZQjFOLeU8IegTOiNQenD 544AEfsDeY2ZLPauuMrN6 ZrUWZufYqtDwU2z0S5Sx8 DOj97SD27WD95 jNZti0K9uOG0A9HfEDAhf jfppnjzhWQ5DOEsTFYxgK 31Mk3avOodRm1tFBXqMWD 1RHPytQTcU6Zn uY5xFxVpTJRxWUSeE1Jty OBgNKjnD999MOjjGmE3XU TmikYeM7ZsNJHplHssRpV 6i0S9Br4KULwe okm1G6FpPirbbGD+PC90Y SAjNF38oICcvYCgu3mmpY h9WpVwNGNsHRO3rHanJCh fi3DwUAAbR86c bGF (more content not included)... [facility] Coding Summary HTMLBase 64 LfzcdkrjEEd8iAl+PGhlY WQ+VB9HYLDwE87jeXKxkO 7jQ5CAZPkSEumvLRXGORc KZsLmzoBzTG5lvKWsSZZz IC8+HV5vWKSuCyguaLFzs 3Z3dPF0T41cvj9iOUqigB K1FKOvQbFwbqllk7dhgTq 6IDcuNmluOyBt KQGzhT58MZH2uF31Jb24n UNhoOSsf1bvuTg8FzDhKK IiTRJ0rZtsHCrzt9KtLXR wF59xpUVpn4A6 QVZzxSydmBSkJjJwyJW6k V8zUOtfkaywk8jrgmupPt u9ez88fGLho2G4ySU9Z1H qaxK5CRAvrZTg HpncpADGkK2sggshc7ljw fjkKmIjRKRcPWt6XRa6UG YvxRfkZrBeYQ34KGI2WDV xefUrG4KjZCKr aXucWlN1w1K5Fp2RU3FOM qspY4KMJXVOTEchsUM+PC 08hx65N2VjMeltNwe7ICV aQLB5oGC8eQ6m RLTsPBhes6X5nHW3N9Exp aVgjk4zc3owTSZgQIqsU8 3sgSXom0Y7SHOeaJW3XKQ fiUxcXrCpnA18 Oyc+XYDksFxcp6XgMhsez 4qpi6clgOn3EajgPOYzpi UubGocOJB4c3JgOs5bOZF dqUA8lCV4cK0u NyVoCmF2HLzhC728OfGgj TJvCetmS06nB4UofEP+PH LjErs6UGHprNeiYB2zY0U hZGRpbmctbGVm dLdxVC1iOIYguescCXOvb G4tPXGzS5m9AbTfSoT4QN kzU8EeOCHxpsosQu86rW5 sDjCdQuQ9KYqx W4IftpW1QVZlfNYpRMezO RB5W41ay1S3NLDgJSCjHH K9jKL6pX2oyBnqeuhvsZF mdDsgdmVydGlj MAjiQDhcW537BBFwmToxA kNvZGluZyBEYXRlOiAgMD UvMTYvMjAyNDwvdGQ+PHR wQOA2jNplGYOc eAQlQPwlDh3weZntmDyfK U7wWXHkebssZDZzmN1tKZ OlxRFlbUqbHN0mCFNnqcj zu025MaZiPFW9 OEKoaAKsF9EojB6iQvObT UNvRJFtX3FpkUIsSWgyL7 23IAntYbH3VLGqlwRnC3R sLWFsaWduOiB0 u6S9Xd7Le5LoulovE2Fid WOjObTxJnbuEJp8S1YgEz wvdHI+JS49ZUHhTE87QBt 3UCM0mEvuFMjn HQXgV3EmxB1wQiRjCUPzW GRkOyc+PHRhYmxlIHdpZH RoPScxMDAlJyBzdHlsZT0 dOf9dASLcNJDw zEanaUAiWpOqm8ebQCYsX CteXX5rfAyuE0QwfEB9IN Iqn1j0Cd61Q19dP9JtxQC +PLQtlOU2tOL1 vR0oUaJqLjL0JMxyL311Z iCjuOPgGnjjh4dtx5chtW o7RtP7IOQvjeBewJucWWI 9m6HxMa10K86m IHdpZHRoPSIxNSUiIHZhb Aqmmt5ruJ2qQe3+PGNvbC L8yCN9tN2cYcUfPiD9JHu mY452FxShfGTc Uiseu1yvm1nmoVq7IrDeV MPkeeLqlLgzMMI1l0LvYb 25N1NieOmqs2RwJsb7df0 9bCRtr5H5pDL8 L5NwHSZmaixnrXEteHryJ T7bSTWmcplhSBUurD6vUA ExD2h7NfXfMvU8DSxgF8L xaaQ9XQQxaHFo QTAmhLBFbX4ugeksv3bns pmtBhQxOLMiTNx3DFu2CU EuuDtoMkWvEKS6CrR4SQK 2oMZocF0akZkw ijrjjT9nMwo+SOR7pUIjv WGKPY0oUycrlAE+PHRkIH W1gOofYJaqCZKxdN1oEVX jO2v9MoUjAtC8 OIrpR2NlvlA2RJWitQKkM LGqaEAHcU5vkirfj7ncby hzUpUnEFNkWUh3DEh2SPG saWduOiBsZWZ0 AsS7RAD4qBSviJ8qvFwvr zvxrY4vJaw+QmlydGggRG X0SHi0F9MgMln1WIKskOe dLL5rcJJhCDib Kq2qjBfwsXlcNP0nBNYoc svpy993ZfXmx2ltLVXknE PbCPzqVMR9G16vo3D0HJM lDODhPFP2wFB0 aN0ieFnqrxpngABosJrzs uNosBmdZPhvYDjgA915KS SqgLdnOmRfEMt2A9AyDbm 5WCAolXqnPQ4m cPXnLVfkOe3sgQsanWwoE O1uNUYjcnqzi159PjQew7 qoGOWyqWUyTGdxMAM5B60 dn1H4TKLtXAQs PIP8iLF5mU4meJztpfeoh GVmdDsgdmVydGljYWwtYW hjU670CSCilCduRfKeqKf 5A5ThOlc4USWo iZgbJS3xqSKlFRdwVx5ol WqyhBxuUV6xFGHymlwln0 01RiHoj5boMNTdfBCkCGe qEDN3X70dh8X6 VWVhAUXjMOH6hCT9nY9lg GlnbjogbGVmdDsgdmVydG saTQneREqiB665UDCigZg nPlBhdGllbnQg XAhmZNu6G0PaEwoxlIZ+P U13WKQiCQ02gIKzzVEhi5 uxoCe5LlDrJPHxQEV8nRn jBEkqz0EbCBWn O13zqYZjh4K2QZWdqHpde VDnVdFyhHZ7zQ2bNYntco gai2bmszdzTghxw2alew7 2sK37Q98xQFdo ZHRoPSIzMCUiIHZhbGlnb w0spO3cAr5+PGVwzMN2oV O6kJ3yXLUeCkD8XMtyW10 9InRvcCIvPjxj j3ppm6txoFa5DxI5CFPte oBgkLfpPMM9j0FgOw00W0 9sIHdpZHRoPSIyMCUiIHZ hrSyuwq5vcH5p Ii8+HIArySM0wMK0gG8eS wKgZkJ6IGclT061GiIfaS IkQrvgP06oN0QgfRK+PHR bUcx6HSWouBuj IB8fxAOlCJgbQs0zAPV9C xNePpOrXZzcI4OpESCeud ghvskzbBF2GKOtPUOnoR9 8Me4jjPlfGGIk dRARqG7ikyymt3hiwmhoN bYnPTFbHRs5ALt8CYLoeN xoYqZkVSX5YoQ7CNG1jUP mwV1isSopegfw xC7bQ7SvUZEljpngFk24c G4vHuPhXjH2ORnbUgp+SE EABH9NLHYDISGWWZEoZYx vdGQ+PHRkIHN0 oGuwNGcvJZAyoV5oEAPfJ 8s5LvZiXkJ3JMthM4MgXH RkyiayIf57aP3ePaWsDhM 5WSwbT1OgouN8 TAAysJHzXXgxKTM0F19ys 1Z1DZVcDYReMHS4cHL5eX 1hbGlnbjogbGVmdDsgdmV ydGljYWwtYWxp T413HIIhgXbaEzTxBpBgL qW0IjG3J1EvCnh0CDOueO exUN9qkMYsDYgmTw5odJr buOhuUB5tUGPs qdzuMNHhnE4lMTEqmGNeo IfjVU1hGBQrxmkop408Qb EbZQU6OXDpoVSzH5UtjT0 yOiAjMDAwMDAw B8OhdJMgKBmpQ971KSzxN nU3ODTspzTlI6QxNDKrsB sbCwD2y1E8Py12EJIJBOF yczwvdGQ+PHRk JLM7cVtpSSswDOZjsZ3aG AJpM5y6ViIxJkZ2JAplA8 HnCBZadztjHy67gU8qXoK eIoJ6IJayR3Ff pkU3DSMtjQMcYMbnQVO3S 90ce7B2BZKlOXVkTIJ9dJ Y4yL8tgIwcvoidgIYjxHp gdmVydGljYWwt XXrzC041ZNDxgLedTnYQJ UFMRTwvdGQ+CKEvJBW1rS wmWLnjGSIswN9lYNIaD9n 9ZuFuLiQ7KFsg Z5BlFXOuirvaGr60gG5yL vAeCmS6HZffU1JlovI9CC BzcKBhMZarPJY7P65de1Y 9RVEtDYZiSCK8 eBK1tF2soDojrlmzcYTsd DsgdmVydGljYWwtYWxpZ2 36GUWinUfkFcHfQOBiBG1 jeTwvdGQ+PC90 tt82Y1TkEluzWye8YYSjF DN9dSP7fR2dJMOhLEvse6 T9jBW8W1PixlVeej7wj7c jMZUjUTeuJ76y tWZjj9R2TVDmeFX6PXMsj MbaQxLdqE96Jhy+PGNvbG fen3PrLpcik9uyu4lnfWr 9IjMwJSIgdmFs jSfyYFO6a4BrWj93F26sR HdpZHRoPSIzMCUiIHZhbG kprs3qtR9sBy1+PGNvbCB 4vIT8nH8qHmAb TsT7KFrcV579WuPjmLPxT qxrn2lyg1zkaAh8ErFfNL SyyxEkoOfzKFV5b2KwQo9 2C8RioBvis5Mk Ytz3di39fEYdy8K1sQJ2P 3BhZGRpbmctbGVmdDogMC 4xKHFnhholMSIobA7kOQT uK1p9BiRmNgZ0 CCsfF1CvprW4CKFxyAIcH YBesFHFxN5gailth9ahmr jjGfEfUASrRXm6PXr5YQN saWduOiBsZWZ0 ImQ2GPL5kGHoxX2duHvew qfufP4fZzq+SOc8r6busD UrZO8azSI5KJ29DQ74bNS op4P8hZG7M4Lv YEVshvozenqnyKT0HDXxB LQxkN21Qf4rmZduPc3dOU AyKNY1PZTtzPPeU9IvoP6 yOiAjMDAwMDAw O6VumBEdPPstN546CFivI jG6MOUuzpCtY3SpEEUyjV dkCuR8y8N6Gc8RHG66GG9 7NF05xYIsj2Z4 xBH4C4FdVTHpqqzckvpfn IV6KMBqQVPdtN76Hq5spK gkTc2bAPDvFDQ2QXPwnLP rO5UxqL1zBfMd LZUdSDUbU0UmqGHeFLkoS 758JTpiBvD7LSIaghQnF8 HtESKjpUlqNbZ7t5T9Aq7 RIo70AD84GN32 cWNss1P6aAA9V0AxKXVzg xghzrwenKF5FQKpFCSwmP 76Dv0dxPeaGv9jCYVjDNG 2LUEirGCrQ1Wx gH2xWwCmVLUbFJNcX9Btt GPpJFzpU008BIioGbM1DC QdfjIfE7OqQYYrdTvaBkM 9p3E6Lr2KLKwk efb7J0PxUsadiEB+PC90Y KKpFS37cOPokJWiu7iyuJ o4PvIfWVDcYOE3uPtbCEr ru2AjWFBaA21b bGF (more content not included)... [facility] Coding Queryon 07-26-2023 Coding Query The diagnosis of S/P foot surgery is an accessory diagnosis and is not covered by Medicaid. Can you please review and add additional diagnosis information - if there isn't anything definitive you can add the patient's signs and symptoms to the ED note. Thanks. Thao Santana MD [Transcribed on: 07/26/2023 14:52 EDT] [facility] Consent Formson 07-25-2023 Consent Forms [id number] [facility] ED Clinical Summaryon 2023 ED Clinical Summary [facility] - Emergency Department [address] [place] [address] ED Clinical Summary PERSON INFORMATION Name: CHINMAY KNIGHT Age: 48 Years Sex: FEMALE : 1975 MRN: Acct#: Visit Reason: Upper respiratory infection; Facial pain; Facial swelling; Cough; COUGH, HEADACHE, FACIAL SWELLING Arrival: 07/24/2023 21:29:22 Discharge: 07/25/2023 01:01:00 LOS: 000 03:32 Check In: 07/24/2023 21:29:22 Checkout:07/25/2023 01:01:00 Address: [address] [facility] [address] PCP: Provider, None PROVIDER INFORMATION Provider Role Assigned Unassigned Baljit Cope FASHION DESIGN PROFESSOR Nurse 07/24/2023 21:33:10 Romeo Resendez DO ED [...] PATIENT EDUCATION INFORMATION Instructions: Sinus Infection, Adult, [id number]; Diabetes Mellitus and Nutrition, Adult; Hyperglycemia, [id number] Follow-Up: With: Address: When: Romeo Addison [address] [place] [address] [facility] (1) In 2 days 07/27/2023 With: Address: When: [facility] In 2 days 07/26/2023 Comments: home you have a sinus infection; warm compresses take the antibiotic ibuprofen for discomfort reduce your smoking; recheck: [facility], 48 hours, walk in 9 am-7 pm you have a physician in [place]. Continue with that physician, until you locate a physician around here. You may call DR ADDISON'S office, here in [facility], to see about continuing with him. watch your diet, as a diabetic you need to be careful about what you eat You are welcomed to return anytime, especially if fever, increased pain, vomiting T H OMLEY< ER PHYSICIAN< H B [facility] DIAGNOSIS: Facial swelling; Hyperglycemia; Sinusitis, acute Patient Understands: Yes - Patient/family/caregi marcello verbalizes understanding of instructions given Comment: Normal [facility] ED Patient Summaryon 024 ED Patient Summary [facility] - Emergency Department [address] [place] [id number] PATIENT DISCHARGE INSTRUCTIONS Patient Information Name: CHINMAY KNIGHT Age: 48 Years Date of : 1975 Reason For Visit: Upper respiratory infection; Facial pain; Facial swelling; Cough; COUGH, HEADACHE, FACIAL SWELLING Arrival Time: 07/24/2023 21:29:22 Primary Care Physician: Provider, None Attending Physician: Romeo Resendez DO Comment: Visit Diagnosis: Diagnoses This Visit Cough ([id number]) Facial pain ([id number]) Facial swelling ([id number]) Facial swelling (R22.0) Hyperglycemia (R73.9) Sinusitis, acute (J01.90) Upper respiratory infection ([id number]) The Pharmacy at [facility] is open Friday through Friday from 9A [...] alcohol and/or drug addiction problems; contact the [facility] 07/10 Crisis Hotline -Text 9QWOL vu [phone]. If you received any narcotics, sedation, or [...] legal documents With: Address: When: Romeo Addison [address] [place] [address] Business ([employer] In 2 days 07/27/2023 With: Address: When: [facility] In 2 days 07/26/2023 Comments: home you have a sinus infection; warm compresses take the antibiotic ibuprofen for discomfort reduce your smoking; recheck: [facility], 48 hours, walk in 9 am-7 pm you have a physician in [place]. Continue with that physician, until you locate a physician around here. You may call DR ADDISON'S office, here in [facility], to see about continuing with him. watch your diet, as a diabetic you need to be careful about what you eat You are welcomed to return anytime, especially if fever, increased pain, vomiting T H OMLEY< ER PHYSICIAN< H B [facility] Medication Information: The exam and treatment you received today in the [facility] Emergency Department were for an urgent problem and are not intended as complete care. It is important for you to follow up with a doctor, nurse practitioner, or physician?s assistant in nursing for ongoing care. If your symptoms become [...] so we can reach you if necessary. [facility] Emergency Department has provided you with a complete list of medications post discharge. Please inform your detention attendant/provider of your visit and for further instruction on these medications. Any specific questions regarding your chronic medications and dosages should be discussed with your primary care physician(s) and/or pharmacist. New Medications [id number], [address], [place] [id number], [phone] clindamycin (clindamycin 300 mg oral capsule) 1 [...] spironolactone (s (more content not included)... Normal [facility] HgbA1c Standardon 07-25-2023 .Hb 15.6 Invalid Interpretation Code [facility] Comment on above: Performed By: #### 1 [id number], [id number], [id number], 8173014, 16846709, 8284915370, [id number] ####[facility] (DEFAULT)[address] [place] [address] .Hgb A1c 1.18 g/dL Invalid Interpretation Code [facility] Comment on above: Performed By: #### 1 [id number], [id number], [id number], 9042709, 80846538, 6038390290, [id number] ####[facility] (DEFAULT)[address] [place] [address] Glucose [Mass/Vol] 212 mg/dL Invalid Interpretation Code [facility] Comment on above: Performed By: #### 1 [id number], [id number], [id number], 5951432, 08064114, 0017249685, [id number] ####[facility] (DEFAULT)[address] [place] [address] HbA1c (Bld) [Mass fraction] 9.0 % High 4.6-6.2 [facility] Comment on above: Performed By: #### 1 [id number], [id number], 2097091496, 8731033, 49369490, 7617654460, [id number] ####[facility] (DEFAULT)[address] [place] [address] POCT Glucose Levelon 024 Glucose [Mass/Vol] 267 mg/dL High 74-118 [facility] Comment on above: Result Comment: OPR_ ID=[email or web address],TGC FLAG = False,Meter:[id number] Telephony Engineer:89Zhen Prisca Smiley Performed By: #### 4 [id number] ####[facility] (DEFAULT)[address] [place] [address] .Auto Diff 1on 07-24-2023 Auto [place] % 8 % Normal 12 [facility] Comment on above: Performed By: #### 1 [id number], [id number], 9942215289, 8034798, 22149352, 4864398614, 1709916049 #### [facility] (DEFAULT) [address] [place] [address] Baso Abs# 0.1 x10 Normal 0.0-0.2 [facility] Comment on above: Performed By: #### 1 [id number], 5665478552, 8782320997, 7245778, 68348324, 3990839666, [id number] #### [facility] (DEFAULT) [address] [place] [address] Basophils/100 WBC (Bld) 0.8 % Normal 0.2-2.0 [facility] Comment on above: Performed By: #### 1 [id number], 1091364753, 8263099984, 9544018, 76160566, 9704574543, [id number] #### [facility] (DEFAULT) [address] [place] [address] Eos Abs# 0.3 x10 Normal 0.0-0.4 [facility] Comment on above: Performed By: #### 1 [id number], 1772078797, 8895297786, 8635101, 35233115, 0868074615, [id number] #### [facility] (DEFAULT) [address] [place] [address] Eosinophils/100 WBC (Bld) 2.3 % Normal 0.9-4.0 [facility] Comment on above: Performed By: #### 1 [id number], 3879097904, 9313812459, 7714836, 08894976, 6064396818, 6901482918 #### [facility] (DEFAULT) [address] [place] [address] Lymph Abs# 2.6 x10 Normal 1.3-2.9 [facility] Comment on above: Performed By: #### 1 [id number], 3834997243, 0647568647, 8569904, 19014644, 9022858474, 0167295410 #### [facility] (DEFAULT) [address] [place] [address] Lymphocytes/100 WBC (Bld) 18 % Normal 14-48 [facility] Comment on above: Performed By: #### 1 [id number], 8555563651, 4976508379, 9187732, 01643100, 3761935604, 4555183484 #### [facility] (DEFAULT) [address] [place] [address] [place] Abs# 1.1 x10 High 0.0-0.8 [facility] Comment on above: Performed By: #### 1 [id number], 3107389709, 1097333370, 6360367, 79830779, 2569920872, 7971203982 #### [facility] (DEFAULT) [address] [place] [address] Neut Abs# 10.1 x10 High 1.5-9.2 [facility] Comment on above: Performed By: #### 1 [id number], 3141247598, 7374149801, 9153439, 17733671, 7793013156, 8144211427 #### [facility] (DEFAULT) [address] [place] [address] Neutrophils/100 WBC (Bld) 71 % Normal 44-88 [facility] Comment on above: Performed By: #### 1 [id number], 2986235357, 6102660135, 0408369, 36517537, 4204978457, 1337253397 #### [facility] (DEFAULT) [address] [place] [address] CBC w/ Auto Diffon 4 Erythrocyte distribution width (RBC) [Ratio] 14.2 % Normal 11.5-15.0 [facility] Comment on above: Performed By: #### 1 [id number], 0069826709, 6605905160, 5999997, 09764400, 0086760566, 9934909040 #### [facility] (DEFAULT) [address] [place] [address] Hematocrit (Bld) [Volume fraction] 45.4 % High 33.7-40.4 [facility] Comment on above: Performed By: #### 1 [id number], 3611921686, 5807278368, 7559640, 86885549, 5495618638, 4052798672 #### [facility] (DEFAULT) [address] [place] [address] Hemoglobin (Bld) [Mass/Vol] 15.1 g/dL Normal 11.3-15.9 [facility] Comment on above: Performed By: #### 1 [id number], 2198803909, 5969389382, 8039560, 75319373, 5063478721, 4869989671 #### [facility] (DEFAULT) [address] [place] [address] Man Diff? Auto Invalid Interpretation Code [facility] Comment on above: Performed By: #### 1 [id number], 6910989894, 9848102322, 5042003, 58839653, 3194867131, 8984926117 #### [facility] (DEFAULT) [address] [place] [address] MCH (RBC) [Entitic mass] 30 pg Normal 24-34 [facility] Comment on above: Performed By: #### 1 [id number], 5909534381, 2521237158, 3703159, 26394890, 4787086674, 7551987345 #### [facility] (DEFAULT) [address] [place] [address] MCHC (RBC) [Mass/Vol] 33 g/dL Normal 26-37 [facility] Comment on above: Performed By: #### 1 [id number], 7561015406, 9362086049, 8855926, 33263189, 4320531795, 7145698556 #### [facility] (DEFAULT) [address] [place] [address] MCV (RBC) [Entitic vol] 92 fL Normal 81-100 [facility] Comment on above: Performed By: #### 1 [id number], 0395392814, 5452515002, 1601941, 85297953, 1621376136, 4832641751 #### [facility] (DEFAULT) [address] [place] [address] Platelet 275 x10 Normal 138-427 [facility] Comment on above: Performed By: #### 1 [id number], 9331881720, 5149212887, 8156259, 73483869, 1338430664, 3442993145 #### [facility] (DEFAULT) [address] [place] [address] Platelet mean volume (Bld) [Entitic vol] 9.0 fL Normal 6.3-10.2 [facility] Comment on above: Performed By: #### 1 [id number], 6979546152, 1648444627, 4439389, 92893781, 6420609642, 7670452257 #### [facility] (DEFAULT) [address] [place] [address] RBC 4.93 x10 Normal 3.70-5.30 [facility] Comment on above: Performed By: #### 1 [id number], 3807870981, 8970176977, 4905037, 09189870, 4764448353, 7050070503 #### [facility] (DEFAULT) [address] [place] [address] WBC 14.3 x10 High 3.5-10.5 [facility] Comment on above: Performed By: #### 1 [id number], 9577948353, 2491124133, 3886637, 62318566, 9146757849, 3872046547 #### [facility] (DEFAULT) [address] [place] [address] CMP Standardon 07-24-2023 eGFR Non AA 48 mL/min/1.73m2 Invalid Interpretation Code [facility] Comment on above: Performed By: #### 1 [id number], 4891567419, 1633777267, 8409739, 42106531, 6936788045, 3057283841 ####[facility] (DEFAULT)[address] [place] [address] eGFR AA 58 mL/min/1.73m2 Invalid Interpretation Code [facility] Comment on above: Performed By: #### 1 [id number], 7862467548, 5299024463, 6608629, 55167414, 4973889244, 6238905111 ####[facility] (DEFAULT)[address] [place] [address] Albumin [Mass/Vol] 4.4 g/dL Normal 3.5-5.0 [facility] Comment on above: Performed By: #### 1 [id number], [id number], 3811353200, 7941307, 27987677, 2320517049, [id number] ####[facility] (DEFAULT)[address] [place] [address] Albumin/Globulin [Mass ratio] 0.9 {ratio} Low 1.4-2.6 [facility] Comment on above: Performed By: #### 1 [id number], [id number], 2968293039, 4934080, 59850134, 3300846579, 1207946193 ####[facility] (DEFAULT)[address] [place] [address] 00691 Alk Phos 107 IU/L High 32-91 [facility] Comment on above: Performed By: #### 1 [id number], [id number], 4289624895, 2857871, 71936465, 1915216986, 7690550948 ####[facility] (DEFAULT)[address] [place] [address] ALT [Catalytic activity/Vol] 16.0 U/L Normal 14.0-54.0 [facility] Comment on above: Performed By: #### 1 [id number], 5905277901, 7065858422, 8248099, 58014406, 3870559185, 8105865404 ####[facility] (DEFAULT)[address] [place] [address] 52704 Anion gap [Moles/Vol] 12.8 mmol/L Normal 5.0-19.0 [facility] Comment on above: Performed By: #### 1 [id number], 8432843237, 4068218060, 7567664, 88349355, 7021970992, 5795393185 ####[facility] (DEFAULT)[address] [place] [address] 14832 AST [Catalytic activity/Vol] 17 U/L Normal 15-41 [facility] Comment on above: Performed By: #### 1 [id number], 7737914866, 0681508642, 1751168, 18885361, 7541710444, 6517667296 ####[facility] (DEFAULT)[address] [place] [address] 56525 Bili Total 0.3 mg/dL Normal 0.3-1.2 [facility] Comment on above: Performed By: #### 1 [id number], 0292315687, 9981270888, 8440097, 19577348, 5875898593, 0669714286 ####[facility] (DEFAULT)[address] [place] [address] 63647 Calcium [Mass/Vol] 9.5 mg/dL Normal 8.9-10.3 [facility] Comment on above: Performed By: #### 1 [id number], 0204269676, 2118392497, 6864875, 57901244, 9386097636, 6811166602 ####[facility] (DEFAULT)[address] [place] [address] 26269 Chloride [Moles/Vol] 102 mmol/L Normal 101-111 [facility] Comment on above: Performed By: #### 1 [id number], 0195411969, 9380718251, 4450474, 46113385, 2350620907, 6459816394 ####[facility] (DEFAULT)[address] [place] [address] 69322 CO2 [Moles/Vol] 27 mmol/L Normal 21-32 [facility] Comment on above: Performed By: #### 1 [id number], 1845174843, 0184631921, 8270955, 55503098, 5556428160, 6137954734 ####[facility] (DEFAULT)[address] [place] [address] 32794 Creatinine [Mass/Vol] 1.19 mg/dL Normal 0.60-1.30 [facility] Comment on above: Performed By: #### 1 [id number], 1613394827, 3097599720, 8330089, 04047169, 2736698447, 4311134127 ####[facility] (DEFAULT)[address] [place] [address] 73601 Globulin (S) [Mass/Vol] 4.6 g/dL High 1.5-4.3 [facility] Comment on above: Performed By: #### 1 [id number], 4094608305, 2330227899, 8027372, 99844784, 1506515727, 0383273752 ####[facility] (DEFAULT)[address] [place] [address] 32902 Glucose [Mass/Vol] 301.0 mg/dL High 74.0-118.0 [facility] Comment on above: Performed By: #### 1 [id number], 6530700430, 3056854129, 2795388, 81494754, 2382548794, 8567584439 ####[facility] (DEFAULT)[address] [place] [address] 96838 Osmolality 289 mOsm/L Invalid Interpretation Code [facility] Comment on above: Performed By: #### 1 [id number], 7922674599, 0398940823, 6912945, 98068731, 1891621411, 8110116592 ####[facility] (DEFAULT)[address] [place] [address] 82999 Potassium [Moles/Vol] 3.8 mmol/L Normal 3.6-5.1 [facility] Comment on above: Performed By: #### 1 [id number], 7738024503, 6311588370, 4766463, 20558733, 2108502578, 7911853340 ####[facility] (DEFAULT)[address] [place] [address] 61432 Protein [Mass/Vol] 9.0 g/dL High 6.5-8.1 [facility] Comment on above: Performed By: #### 1 [id number], 3944983848, 2629115296, 0620307, 01256630, 5587285152, 1923962416 ####[facility] (DEFAULT)[address] [place] [address] 08261 Sodium [Moles/Vol] 138.0 mmol/L Normal 136.0-144.0 [facility] Comment on above: Performed By: #### 1 [id number], 2805241516, 7422758952, 2735295, 25498310, 6089900465, 5575400030 ####[facility] (DEFAULT)[address] [place] [address] 26064 Urea nitrogen [Mass/Vol] 19 mg/dL Normal 8-26 [facility] Comment on above: Performed By: #### 1 [id number], 3205232852, 8858503173, 8859821, 75933918, 7197210241, 6452450609 ####[facility] (DEFAULT)[address] [place] [address] 19591 Urea nitrogen/Creatinine [Mass ratio] 15.9 mg/mg Normal 4.6-16.2 [facility]. [facility] Comment on above: Performed By: #### 1 [id number], [id number], [id number], [id number], [id number] ####[facility] (DEFAULT)[address] [place] [address] Maxillofacial w/ Contrast on 07-24-2023 CT [...] maxilla sinus with an air-fluid level. The license inspector spaces, parotid glands and parapharyngeal spaces appear [...] Norwood MD 07/25/23 0:04 am Technologist: MONTSE [facility] ED Note - Physicianon 2023 ED [...] not seen her physician, who is in [place], she is now living in for [place] because she had a break-up with her [...] is otherwise symmetric, no RPA PPA or LIVESTOCK TRADER, tympanic membrane canal pinna and mastoids are [...] Pharmacy: clindamycin (Order): 600 mg, IV Piggyback, Electronics Tester ketorolac (Order): 30 mg, IV Push, Once [...] she follows up with her doctor in [place] until such time as she does develop relationship with a physician in this area. [place] is not that far away. Impression and Plan Diagnosis Facial swelling (CNP76-DG R22.0, Discharge, Medical) Hyperglycemia (OPI10-HB R73.9, Discharge, Medical) Sinusitis, acute (UFZ29-WE J01.90, Discharge, Medical) Plan Condition: Improved. Disposition: Discharged: time 07/25/2023 00:52:00. Prescriptions Patient was given the following educational materials: Hyperglycemia, Sava-fq-Pplx, Diabetes Mellitus and Nutrition, Adult, Diabetes Mellitus and Nutrition, Adult, Hyperglycemia, Uprt-zu-Akfz, Sinus Infection, Adult, Unwo-xa-Mryk. Follow up with: Romeo Addison In 2 days 07/27/2023; [facility] In 2 days 07/26/2023 home you have a sinus infection; warm compresses take the antibiotic ibuprofen for discomfort reduce your smoking; recheck: [facility], 48 hours, walk in 9 am-7 pm you have a physician in [place]. Continue with that physician, until you locate a physician around he (more content not included)... [facility] ED Note-Nursingon 07-24-2023 ED Note-Nursing private vehicle [...] imaging. oriented to call light. no distress. [facility] Extra Greenon 07-24-2023 Tube Collected Yes Invalid Interpretation Code [facility] Comment on above: Performed By: #### 1 [id number], [id number], [id number], [id number] #### [facility] (DEFAULT) [address] [place] [address] POCT Glucose Levelon 024 Glucose [Mass/Vol] 318 mg/dL High 74-118 [facility] Comment on above: Result Comment: OPR_ ID=[id number],TGC FLAG = False,Meter:[id number] Telephony Engineer:Alisa Morley Performed By: #### 4 [id number] #### [facility] (DEFAULT) [address] [place] [address] XR Chest 2 Viewson XR Chest 2 [...] Hinkle MD 07/24/23 11:34 p Technologist: SUSAN [facility] ED Clinical Summaryon 2023 ED Clinical Summary [facility] Emergency Department [address] [place] [id number] ED Clinical Summary PERSON INFORMATION Name: CHINMAY KNIGHT Age: 48 Years Sex: FEMALE : 1975 MRN: Acct#: Visit Reason: Foot pain; LT SWOLLEN AND BRUISED, PAINFUL Arrival: 07/21/2023 13:58:12 Discharge: 07/21/2023 15:30:00 LOS: 000 01:32 Check In: 07/21/2023 13:58:12 Checkout:07/21/2023 15:30:00 Address: [address] [facility] [address] PCP: Provider, None PROVIDER INFORMATION Provider Role [...] Sprain Follow-Up: With: Address: When: Provider, None [address] [place], [place] [id number] Within 3 to 5 days DIAGNOSIS: 1:S/P foot surgery Patient Understands: Yes - Patient/family/caregi marcello verbalizes understanding of instructions given Comment: [facility] ED Patient Summaryon 024 ED Patient Summary [facility] Emergency Department [address] [place] [id number] PATIENT DISCHARGE INSTRUCTIONS Patient Information Name: CHINMAY KNIGHT Age: 48 Years Date of : 1975 Reason For Visit: Foot pain; LT SWOLLEN AND BRUISED, PAINFUL Arrival Time: 07/21/2023 13:58:12 Primary Care Physician: Provider, None Attending Physician: Thao Santana MD Comment: Visit Diagnosis: Diagnoses This Visit Foot pain (969107559) S/P foot surgery (Z98.890) The Pharmacy at [facility] is open Friday through Friday from 9A [...] alcohol and/or drug addiction problems; contact the [facility] 07/10 Crisis Hotline -Text 9KWVR to 708083. If you received any narcotics, sedation, or [...] legal documents With: Address: When: Provider, None [address] [place] [address] Within 3 to 5 days Medication Information: The exam and treatment you received today in the [facility] Emergency Department were for an urgent problem and are not intended as complete care. It is important for you to follow up with a doctor, nurse practitioner, or physician?s assistant in nursing for ongoing care. If your symptoms become [...] so we can reach you if necessary. [facility] Emergency Department has provided you with a complete list of medications post discharge. Please inform your detention attendant/provider of your visit and for further instruction [...] after an (more content not included)... Normal [facility] XR Foot Complete Lefton -0 XR Foot Complete Left EXAM: XR Foot [...] MD 07/21/23 3:01 pm Technologist: Travis DAVIS [facility] MR LUMBAR SPINE WO CONTon MR [...] Maciel MD on 05/27/2023 10:23 PM Normal [facility] MAMM SCREENING BILATERAL W C wine maker 05-15-2023 MAMM SCREENING BILATERAL W CAD MAMM [...] AM 1 a MAMM 1 YR Normal [facility] AMYLASEon 07-15-2022 Amylase [Catalytic activity/Vol] 23 U/L Critically low 25-115 [facility] Comment on above: Performed By: #### C MADM, LENO, LIPA, CMP ####[facility] [address] [id number]. Marcell Jaxon BNPon 07-15-2022 Natriuretic peptide B (Bld) [Mass/Vol] 80372.0 pg/mL Critically high <=900.0 [facility] Comment on above: Performed By: #### B DRUM SANDER OFFBEARER ####[facility] [address] [id number]. Marcell Coates CARDIAC ISACC 3-6on 3 CK [Catalytic activity/Vol] 72 U/L Normal 26-192 [facility] Comment on above: Performed By: #### B MP #### [facility] [address] [address] [address] Marcell Coates CK.MB [Mass/Vol] 1.21 ng/mL Normal <=3.60 [facility] Comment on above: Performed By: #### B MP #### [facility] [address] [address] [address] Marcell Coates HSTROP 47.6 pg/mL Normal 4.0-51.3 [facility] Comment on above: Result Comment: CUT- OFF POINTS HAVE BEEN ESTABLISHED BASED ON THE FOURTH UNIVERSAL DEFINITIONS OF MYOCARDIAL INFARCTION. THE UPPER REFERENCE LIMIT (URL) OF TROPONIN, DEFINED THE 99TH PERCENTILE OF cTnI DISTRIBUTION IN A REFERENCE POPULATION, HAS BEEN CONFIRMED THE DECISION THRESHOLD FOR [place] DIAGNOSIS. Performed By: #### B MP #### [facility] [address] [address] [address] Marcell Coates CARDIAC ISACC ADMITon 023 CK [Catalytic activity/Vol] 64 U/L Normal 26-192 [facility] Comment on above: Performed By: #### C MADM, LENO, LIPA, CMP ####[facility] [address] [address]Dr. Marcell Coates CK.MB [Mass/Vol] 1.33 ng/mL Normal <=3.60 [facility] Comment on above: Performed By: #### C MADM, LENO, LIPA, CMP ####[facility] [address] [address]Dr. Marcell Coates HSTROP 47.5 pg/mL Normal 4.0-51.3 [facility] Comment on above: Result Comment: CUT- OFF POINTS HAVE BEEN ESTABLISHED BASED ON THE FOURTH UNIVERSAL DEFINITIONS OF MYOCARDIAL INFARCTION. THE UPPER REFERENCE LIMIT (URL) OF TROPONIN, DEFINED THE 99TH PERCENTILE OF cTnI DISTRIBUTION IN A REFERENCE POPULATION, HAS BEEN CONFIRMED THE DECISION THRESHOLD FOR MN DIAGNOSIS. Performed By: #### C MADM, LENO, LIPA, CMP ####[facility] [address] [address]Dr. Marcell Coates CHASITY 44 ng/mL Normal 9-82 [facility] Comment on above: Performed By: #### C MADM, LENO, LIPA, CMP ####[facility] [address] [address]Dr. Marcell Coates CBC AUTO DIFFon 07-15-2022 BASO # 0.1 103/ul Normal 0.0-0.1 [facility] Comment on above: Performed By: #### B MP #### [facility] [address] [address] [address] Marcell Coates Basophils/100 WBC (Bld) 1.0 % Normal 0.2-2.0 [facility] Comment on above: Performed By: #### B MP #### [facility] [address] [address] [address] Marcell Coates EO # 0.4 103/ul Normal 0.0-0.7 [facility] Comment on above: Performed By: #### B MP #### [facility] [address] [address] [address] Marcell Coates Eosinophils/100 WBC (Bld) 3.0 % Normal 0.9-7.0 [facility] Comment on above: Performed By: #### B MP #### [facility] [address] [address] [address] Marcell Coates Erythrocyte distribution width (RBC) [Ratio] 14.2 % Normal 11.0-15.0 [facility] Comment on above: Performed By: #### B MP #### [facility] [address] [address] [address] Marcell Coates Hematocrit (Bld) [Volume fraction] 48.1 % Critically high 36.0-48.0 [facility] Comment on above: Performed By: #### B MP #### [facility] [address] [address] [address] Marcell Coates Hemoglobin (Bld) [Mass/Vol] 15.7 g/dL Normal 12.0-16.0 [facility] Comment on above: Performed By: #### B MP #### [facility] [address] [place] [address] Dr. Marcell Coates IG # 0.03 10e3/ul Normal 0.00-0.03 [facility] Comment on above: Performed By: #### B MP #### [facility] [address] [place] [address] Dr. Marcell Coates IG % 0.2 % Normal 0.0-0.5 [facility] Comment on above: Performed By: #### B MP #### [facility] [address] [place] [address] Dr. Marcell Coates LYMPH # 3.8 103/ul Normal 1.2-3.8 [facility] Comment on above: Performed By: #### B MP #### [facility] [address] [place] [address] Dr. aMrcell Coates Lymphocytes/100 WBC (Bld) 30.5 % Normal 20.5-60.0 [facility] Comment on above: Performed By: #### B MP #### [facility] [address] [place] [address] Dr. Marcell Coates MANUAL DIFF REQ NO Normal [facility] Comment on above: Performed By: #### B MP #### [facility] [address] [place] [address] Dr. Marcell Coates MCH (RBC) [Entitic mass] 29.1 pg Normal 26.7-34.0 [facility] Comment on above: Performed By: #### B MP #### [facility] [address] [place] [address] Dr. Marcell Coates MCHC (RBC) [Mass/Vol] 32.6 g/dL Normal 29.9-35.2 [facility] Comment on above: Performed By: #### B MP #### [facility] [address] [place] [address] Dr. Marcell Coates MCV (RBC) [Entitic vol] 89.2 fL Normal 81.0-99.0 [facility] Comment on above: Performed By: #### B MP #### [facility] [address] [place] [address] Dr. Marcell Coates MONO # 0.9 103/ul Critically high 0.3-0.8 [facility] Comment on above: Performed By: #### B MP #### [facility] [address] [place] [address] Dr. Marcell Coates Monocytes/100 WBC (Bld) 6.9 % Normal 1.7-12.0 [facility] Comment on above: Performed By: #### B MP #### [facility] [address] [place] [address] Dr. Marcell Coates NEUT # 7.3 103/ul Critically high 1.4-6.5 The [facility] Comment on above: Performed By: #### B MP #### [facility] [address] [place] [address] Dr. Marcell Coates Neutrophils/100 WBC (Bld) 58.4 % Normal 43.0-75.0 [facility] Comment on above: Performed By: #### B MP #### [facility] [address] [place] [address] Dr. Marcell Coates Platelet mean volume (Bld) [Entitic vol] 9.9 fL Normal 9.5-13.5 [facility] Comment on above: Performed By: #### B MP #### [facility] [address] [place] [address] Dr. Marcell Coates PLT 288 103/ul Normal 150-450 [facility] Comment on above: Performed By: #### B MP #### [facility] [address] [place] [address] Dr. Marcell Coates RBC 5.39 106/ul Normal 4.20-5.40 [facility] Comment on above: Performed By: #### B MP #### [facility] [address] [place] [address] Dr. Marcell Coates WBC 12.5 103/ul Critically high 4.0-11.0 [facility] Comment on above: Performed By: #### B MP #### [facility] [address] [place] [address] Dr. Marcell Coates CTA CHEST WO W [...] TRINITY ELLIS Date: 2022-07-15 02:50 Normal [facility] LACTATE/LACTIC ACIDon 2022 Lactate [Moles/Vol] 1.2 mmol/L Normal 0.4-2.0 [facility] Comment on above: Performed By: #### L IPA, LENO, CMP #### [facility] [address] [address] [address] Marcell Coates LIPASEon 07-15-2022 Lipase [Catalytic activity/Vol] 116.0 U/L Normal 73.0-393.0 [facility] Comment on above: Performed By: #### B MP #### [facility] [address] [place], [place] [address] Dr. Marcell Coates PROF 14(COMP METB)on 023 Albumin [Mass/Vol] 3.5 g/dL Normal 3.4-5.0 [facility] Comment on above: Performed By: #### C MADM, LENO, LIPA, CMP ####[facility] [address] [address]Dr. Marcell Coates Albumin/Globulin [Mass ratio] 1.1 {ratio} Normal [facility] Comment on above: Performed By: #### C MADM, LENO, LIPA, CMP ####[facility] [address] [address]Dr. Marcell Jaxon ALP [Catalytic activity/Vol] 106 U/L Normal 46-116 [facility] Comment on above: Performed By: #### C MADM, LENO, LIPA, CMP ####[facility] [address] [address]Dr. Marcell Coates ALT [Catalytic activity/Vol] 31 U/L Normal 14-59 [facility] Comment on above: Performed By: #### C MADM, LENO, LIPA, CMP ####[facility] [address] [address]Dr. Marcell Coates Anion gap [Moles/Vol] 14.8 mmol/L Normal [facility] Comment on above: Performed By: #### C MADM, LENO, LIPA, CMP ####[facility] [address] [place], [place] [address]Dr. Ansilvio Coates AST [Catalytic activity/Vol] 30 U/L Normal 15-37 [facility] Comment on above: Performed By: #### C MADM, LENO, LIPA, CMP ####[facility] [address] [address]Dr. Marcell Coates Bilirubin [Mass/Vol] 0.4 mg/dL Normal 0.2-1.0 [facility] Comment on above: Performed By: #### C MADM, LENO, LIPA, CMP ####[facility] [address] [address]Dr. Marcell Coates Calcium [Mass/Vol] 8.8 mg/dL Normal 8.5-10.1 [facility] Comment on above: Performed By: #### C MADM, LENO, LIPA, CMP ####[facility] [address] [address]Dr. Marcell Coates Chloride [Moles/Vol] 106 mmol/L Normal 98-107 [facility] Comment on above: Performed By: #### C RAFY, LENO, LIPA, CMP ####[facility] [address] [address]Dr. Marcell Coates CO2 [Moles/Vol] 26.6 mmol/L Normal 21.0-32.0 [facility] Comment on above: Performed By: #### C RAFY, LENO, LIPA, CMP ####[facility] [address] [address]Dr. Marcell Coates Creatinine [Mass/Vol] 1.11 mg/dL Critically high 0.55-1.02 [facility] Comment on above: Performed By: #### C RAFY, LENO, LIPA, CMP ####[facility] [address] [address]Dr. Marcell Coates EGFR-AF FILIPINO >60 Normal >=60 [facility] Comment on above: Performed By: #### C RAFY, LENO, LIPA, CMP ####[facility] [address] [address]Dr. Marcell Coates EGFR-NON AF FILIPINO 52 mL/min/1.73m2 Critically low >=60 [facility] Comment on above: Performed By: #### C MADJennifer, LENO, LIPA, CMP ####[facility] [address] [address]Dr. Marcell Coates Globulin (S) [Mass/Vol] 3.1 g/dL Normal [facility] Comment on above: Performed By: #### C MADM, LENO, LIPA, CMP ####[facility] [address] [address]Dr. Marcell Coates Glucose [Mass/Vol] 126 mg/dL Critically high 74-106 [facility] Comment on above: Performed By: #### C MADM, LENO, LIPA, CMP ####[facility] [address] [address]Dr. Marcell Coates Potassium [Moles/Vol] 3.4 mmol/L Critically low 3.5-5.1 [facility] Comment on above: Performed By: #### C LENO HILLMAN, LIPA, CMP ####[facility] [address] [address]Dr. Marcell Coates Protein [Mass/Vol] 6.6 g/dL Normal 6.4-8.2 The [facility] Comment on above: Performed By: #### C LENO HILLMAN, LIPA, CMP ####[facility] [address] [address]Dr. Marcell Coates Sodium [Moles/Vol] 144 mmol/L Normal 136-145 [facility] Comment on above: Performed By: #### C LENO HILLMAN, LIPA, CMP ####[facility] [address] [address]Dr. Marcell Coates Urea nitrogen [Mass/Vol] 16.0 mg/dL Normal 7.0-18.0 [facility] Comment on above: Performed By: #### C LENO HILLMAN, LIPA, CMP ####[facility] [address] [address]Dr. Marcell Coates Urea nitrogen/Creatinine [Mass ratio] 14.4 mg/mg Normal [facility] Comment on above: Performed By: #### C LENO HILLMAN, LIPA, CMP ####[facility] [address] [address]Dr. Marcell Coates XR ABD FLAT UP_PA Germaine [...] in the colon. Electronically authenticated by: PEDRO DILCIA Date: 2022-07-14 23:48 Normal [facility] US SINGLE QUAD RT UPPERon US SINGLE [...] JT GRADY Date: 2022-06-18 12:36 Normal [facility] AMYLASEon 06-14-2022 Amylase [Catalytic activity/Vol] 19 U/L Critically low 25-115 [facility] Comment on above: Performed By: #### L IPA, LENO, CMP #### [facility] [address] [address] [address] Marcell Coates CBC AUTO DIFFon 06-14-2022 BASO # 0.1 103/ul Normal 0.0-0.1 [facility] Comment on above: Performed By: #### B MP #### [facility] [address] [address] [address] Marcell Coates Basophils/100 WBC (Bld) 0.6 % Normal 0.2-2.0 [facility] Comment on above: Performed By: #### B MP #### [facility] [address] [address] [address] Marcell Coates EO # 0.3 103/ul Normal 0.0-0.7 [facility] Comment on above: Performed By: #### B MP #### [facility] [address] [place] [address] Dr. Marcell Coates Eosinophils/100 WBC (Bld) 1.8 % Normal 0.9-7.0 [facility] Comment on above: Performed By: #### B MP #### [facility] [address] [place] [address] Dr. Marcell Coates Erythrocyte distribution width (RBC) [Ratio] 14.2 % Normal 11.0-15.0 [facility] Comment on above: Performed By: #### B MP #### [facility] [address] [place] [address] Dr. Marcell Coates Hematocrit (Bld) [Volume fraction] 44.9 % Normal 36.0-48.0 [facility] Comment on above: Performed By: #### B MP #### [facility] [address] [place] [address] Dr. Marcell Coates Hemoglobin (Bld) [Mass/Vol] 14.8 g/dL Normal 12.0-16.0 [facility] Comment on above: Performed By: #### B MP #### [facility] [address] [place] [address] Dr. Marcell Coates IG # 0.18 10e3/ul Critically high 0.00-0.03 [facility] Comment on above: Performed By: #### B MP #### [facility] [address] [place] [address] Dr. Marcell Coates IG % 1.3 % Critically high 0.0-0.5 The [facility] Comment on above: Performed By: #### B MP #### [facility] [address] [place] [address] Dr. Marcell Coates LYMPH # 3.4 103/ul Normal 1.2-3.8 [facility] Comment on above: Performed By: #### B MP #### [facility] [address] [place] [address] Dr. Marcell Coates Lymphocytes/100 WBC (Bld) 24.4 % Normal 20.5-60.0 [facility] Comment on above: Performed By: #### B MP #### [facility] [address] [place] [address] Dr. Marcell Coates MANUAL DIFF REQ NO Normal [facility] Comment on above: Performed By: #### B MP #### [facility] [address] [place] [address] Dr. Marcell Coates MCH (RBC) [Entitic mass] 29.4 pg Normal 26.7-34.0 [facility] Comment on above: Performed By: #### B MP #### [facility] [address] [place] [address] Dr. Marcell Coates MCHC (RBC) [Mass/Vol] 33.0 g/dL Normal 29.9-35.2 [facility] Comment on above: Performed By: #### B MP #### [facility] [address] [place] [address] Dr. Marcell Coates MCV (RBC) [Entitic vol] 89.3 fL Normal 81.0-99.0 [facility] Comment on above: Performed By: #### B MP #### [facility] [address] [place] [address] Dr. Marcell Coates MONO # 1.1 103/ul Critically high 0.3-0.8 The [facility] Comment on above: Performed By: #### B MP #### [facility] [address] [place] [address] Dr. Marcell Coates Monocytes/100 WBC (Bld) 8.1 % Normal 1.7-12.0 [facility] Comment on above: Performed By: #### B MP #### [facility] [address] [place] [address] Dr. Marcell Coates NEUT # 8.9 103/ul Critically high 1.4-6.5 The [facility] Comment on above: Performed By: #### B MP #### [facility] [address] [place] [address] Dr. Marcell Coates Neutrophils/100 WBC (Bld) 63.8 % Normal 43.0-75.0 [facility] Comment on above: Performed By: #### B MP #### [facility] [address] [place] [address] Dr. Marcell Coates Platelet mean volume (Bld) [Entitic vol] 10.2 fL Normal 9.5-13.5 [facility] Comment on above: Performed By: #### B MP #### [facility] [address] [place] [address] Dr. Marcell Coates PLT 284 103/ul Normal 150-450 [facility] Comment on above: Performed By: #### B MP #### [facility] [address] [place] [address] Dr. Marcell Coates RBC 5.03 106/ul Normal 4.20-5.40 [facility] Comment on above: Performed By: #### B MP #### [facility] [address] [place] [address] Dr. Marcell Coates WBC 13.9 103/ul Critically high 4.0-11.0 [facility] Comment on above: Performed By: #### B MP #### [facility] [address] [place] [address] Dr. Marcell Coates LIPASEon 06-14-2022 Lipase [Catalytic activity/Vol] 81.0 U/L Normal 73.0-393.0 [facility] Comment on above: Performed By: #### L LENO STERN CMP #### [facility] [address] [place] [address] Dr. Marcell Coates PROF 14(COMP METB)on 023 Albumin [Mass/Vol] 3.5 g/dL Normal 3.4-5.0 [facility] Comment on above: Performed By: #### L LENO STERN CMP #### [facility] [address] [place] [address] Dr. Marcell Coates Albumin/Globulin [Mass ratio] 1.3 {ratio} Normal [facility] Comment on above: Performed By: #### L LENO STERN, CMP #### [facility] [address] [address] [address] Marcell Coates ALP [Catalytic activity/Vol] 121 U/L Critically high 46-116 [facility] Comment on above: Performed By: #### L LENO STERN, CMP #### [facility] [address] [address] [address] Marcell Coates ALT [Catalytic activity/Vol] 32 U/L Normal 14-59 [facility] Comment on above: Performed By: #### L LENO STERN, CMP #### [facility] [address] [address] [address] Marcell Coates Anion gap [Moles/Vol] 16.4 mmol/L Normal [facility] Comment on above: Performed By: #### L LENO STERN, CMP #### [facility] [address] [address] [address] Marcell Coates AST [Catalytic activity/Vol] 31 U/L Normal 15-37 [facility] Comment on above: Performed By: #### L LENO STERN, CMP #### [facility] [address] [address] [address] Marcell Coates Bilirubin [Mass/Vol] 0.5 mg/dL Normal 0.2-1.0 [facility] Comment on above: Performed By: #### L LENO STERN, CMP #### [facility] [address] [address] [address] Marcell Coates Calcium [Mass/Vol] 8.6 mg/dL Normal 8.5-10.1 [facility] Comment on above: Performed By: #### L LENO STERN, CMP #### [facility] [address] [address] [address] Marcell Coates Chloride [Moles/Vol] 104 mmol/L Normal 98-107 [facility] Comment on above: Performed By: #### L LENO STERN, CMP #### [facility] [address] [address] [address] Marcell Coates CO2 [Moles/Vol] 21.2 mmol/L Normal 21.0-32.0 [facility] Comment on above: Performed By: #### L LEENA LENO, CMP #### [facility] [address] [address] [address] Marcell Coates Creatinine [Mass/Vol] 1.13 mg/dL Critically high 0.55-1.02 [facility] Comment on above: Performed By: #### L IPA, LENO, CMP #### [facility] [address] [address] [address] Marcell Coates EGFR-AF FILIPINO >60 Normal >=60 [facility] Comment on above: Performed By: #### L IPA, LENO, CMP #### [facility] [address] [address] [address] Marcell Coates EGFR-NON AF FILIPINO 51 mL/min/1.73m2 Critically low >=60 [facility] Comment on above: Performed By: #### L IPA LENO, CMP #### [facility] [address] [address] [address] Marcell Coatse Globulin (S) [Mass/Vol] 2.6 g/dL Normal [facility] Comment on above: Performed By: #### L IPA LEON, CMP #### [facility] [address] [address] [address] Marcell Coates Glucose [Mass/Vol] 139 mg/dL Critically high 74-106 [facility] Comment on above: Performed By: #### L LEENA LENO, CMP #### [facility] [address] [address] [address] Marcell Coates Potassium [Moles/Vol] 3.6 mmol/L Normal 3.5-5.1 [facility] Comment on above: Performed By: #### L IPA LENO, CMP #### [facility] [address] [address] [address] Marcell Coates Protein [Mass/Vol] 6.1 g/dL Critically low 6.4-8.2 [facility] Comment on above: Performed By: #### L IPA LENO, CMP #### [facility] [address] [address] [address] Marcell Coates Sodium [Moles/Vol] 138 mmol/L Normal 136-145 [facility] Comment on above: Performed By: #### L IPA, LENO, CMP #### [facility] [address] [address] [address] Marcell Coates Urea nitrogen [Mass/Vol] 18.0 mg/dL Normal 7.0-18.0 [facility] Comment on above: Performed By: #### L IPA, LENO, CMP #### [facility] [address] [place] [address] Dr. Marcell Coates Urea nitrogen/Creatinine [Mass ratio] 15.9 mg/mg Normal [facility] Comment on above: Performed By: #### L IPA, LENO, CMP #### [facility] [address] [place] [address] Dr. Marcell Coates TROPONIN, HIGH SENSITIVITYon 06-14-2022 HSTROP 36.3 pg/mL Normal 4.0-51.3 [facility] Comment on above: Result Comment: CUT- OFF POINTS HAVE BEEN ESTABLISHED BASED ON THE FOURTH UNIVERSAL DEFINITIONS OF MYOCARDIAL INFARCTION. THE UPPER REFERENCE LIMIT (URL) OF TROPONIN, DEFINED THE 99TH PERCENTILE OF cTnI DISTRIBUTION IN A REFERENCE POPULATION, HAS BEEN CONFIRMED THE DECISION THRESHOLD FOR [place] DIAGNOSIS. Performed By: #### H STROPN ####[facility] [id number] [id number]. Marcell Coates AMYLASEon 06-09-2022 Amylase [Catalytic activity/Vol] 22 U/L Critically low 25-115 [facility] Comment on above: Performed By: #### B MP #### [facility] [address] [place] [address] Dr. Marcell Coates CBC AUTO DIFFon 06-09-2022 BASO # 0.1 103/ul Normal 0.0-0.1 [facility] Comment on above: Performed By: #### C BC #### [facility] [address] [place] [address] Dr. Marcell Coates Basophils/100 WBC (Bld) 0.6 % Normal 0.2-2.0 [facility] Comment on above: Performed By: #### C BC #### [facility] [address] [place] [address] Dr. Marcell Coates EO # 0.5 103/ul Normal 0.0-0.7 [facility] Comment on above: Performed By: #### C BC #### [facility] [address] [place] [address] Dr. Marcell Coates Eosinophils/100 WBC (Bld) 4.0 % Normal 0.9-7.0 [facility] Comment on above: Performed By: #### C BC #### [facility] [address] [place] [address] Dr. Marcell Coates Erythrocyte distribution width (RBC) [Ratio] 13.9 % Normal 11.0-15.0 [facility] Comment on above: Performed By: #### C BC #### [facility] [address] [place] [address] Dr. Marcell Coates Hematocrit (Bld) [Volume fraction] 46.2 % Normal 36.0-48.0 [facility] Comment on above: Performed By: #### C BC #### [facility] [address] [place] [address] Dr. Marcell Coates Hemoglobin (Bld) [Mass/Vol] 15.2 g/dL Normal 12.0-16.0 [facility] Comment on above: Performed By: #### C BC #### [facility] [address] [place] [address] Dr. Marcell Coates IG # 0.02 10e3/ul Normal 0.00-0.03 [facility] Comment on above: Performed By: #### C BC #### [facility] [address] [place] [address] Dr. Marcell Coates IG % 0.2 % Normal 0.0-0.5 [facility] Comment on above: Performed By: #### C BC #### [facility] [address] [place] [address] Dr. Marcell Coates LYMPH # 3.8 103/ul Normal 1.2-3.8 [facility] Comment on above: Performed By: #### C BC #### [facility] [address] [place] [address] Dr. Marcell Coates Lymphocytes/100 WBC (Bld) 31.4 % Normal 20.5-60.0 [facility] Comment on above: Performed By: #### C BC #### [facility] [address] [place] [address] Dr. Marcell Coates MANUAL DIFF REQ NO Normal [facility] Comment on above: Performed By: #### C BC #### [facility] [address] [place] [address] Dr. Marcell Coates MCH (RBC) [Entitic mass] 29.6 pg Normal 26.7-34.0 [facility] Comment on above: Performed By: #### C BC #### [facility] [address] [place] [address] Dr. Marcell Coates MCHC (RBC) [Mass/Vol] 32.9 g/dL Normal 29.9-35.2 [facility] Comment on above: Performed By: #### C BC #### [facility] [address] [place] [address] Dr. Marcell Coates MCV (RBC) [Entitic vol] 90.1 fL Normal 81.0-99.0 [facility] Comment on above: Performed By: #### C BC #### [facility] [address] [place] [address] Dr. Marcell Coates MONO # 0.9 103/ul Critically high 0.3-0.8 [facility] Comment on above: Performed By: #### C BC #### [facility] [address] [place] [address] Dr. Marcell Coates Monocytes/100 WBC (Bld) 7.7 % Normal 1.7-12.0 [facility] Comment on above: Performed By: #### C BC #### [facility] [address] [place] [address] Dr. Marcell Coates NEUT # 6.7 103/ul Critically high 1.4-6.5 [facility] Comment on above: Performed By: #### C BC #### [facility] [address] [place] [address] Dr. Marcell Coates Neutrophils/100 WBC (Bld) 56.1 % Normal 43.0-75.0 [facility] Comment on above: Performed By: #### C BC #### [facility] [address] [place] [address] Dr. Marcell Coates Platelet mean volume (Bld) [Entitic vol] 9.6 fL Normal 9.5-13.5 [facility] Comment on above: Performed By: #### C BC #### [facility] [address] [place] [address] Dr. Marcell Coates PLT 297 103/ul Normal 150-450 [facility] Comment on above: Performed By: #### C BC #### [facility] [address] [place] [address] Dr. Marcell Coates RBC 5.13 106/ul Normal 4.20-5.40 [facility] Comment on above: Performed By: #### C BC #### [facility] [address] [place] [address] Dr. Marcell Coates WBC 11.9 103/ul Critically high 4.0-11.0 [facility] Comment on above: Performed By: #### C BC #### [facility] [address] [place], [place] [id number] Dr. Marcell Coates CT ABD/PELVIS WO CONon [...] OSWALDO SAID Date: 2022-06-09 01:12 Normal [facility] URINE PROFILEon 3 Bilirubin Ql (U) Negative Normal NEGATIVE [facility] Comment on above: Performed By: #### B MP #### [facility] [address] [address] [address] Marcell Coates Clarity (U) CLEAR Normal CLEAR [facility] Comment on above: Performed By: #### B MP #### [facility] [address] [address] [address] Marcell Coates Color (U) LT. YELLOW Normal YELLOW [facility] Comment on above: Performed By: #### B MP #### [facility] [address] [place] [address] Dr. Marcell ASHTON A micrscopic examination will be performed if indicated. Normal [facility] Comment on above: Performed By: #### B MP #### [facility] [address] [place] [address] Dr. Marcell Coates Glucose Ql (U) Negative Normal NEGATIVE [facility] Comment on above: Performed By: #### B MP #### [facility] [address] [address] [address] Marcell Coates Hemoglobin Ql (U) Negative Normal NEGATIVE [facility] Comment on above: Performed By: #### B MP #### [facility] [address] [address] [address] Marcell Coates Ketones Ql (U) Negative Normal NEGATIVE [facility] Comment on above: Performed By: #### B MP #### [facility] [address] [address] [address] Marcell Coates LEUKOCYTES Negative Normal NEGATIVE [facility] Comment on above: Performed By: #### B MP #### [facility] [address] [address] [address] Marcell Coates Nitrite Ql (U) Negative Normal NEGATIVE [facility] Comment on above: Performed By: #### B MP #### [facility] [address] [place] [address] Dr. Marcell Coates pH (U) 6.0 [pH] Normal 5-9 [facility] Comment on above: Performed By: #### B MP #### [facility] [address] [place] [address] Dr. Marcell Coates Protein (U) [Mass/Vol] 30 mg/dL Abnormal NEGAT CASEY/ TRACE [facility] Comment on above: Performed By: #### B MP #### [facility] [address] [place] [address] Dr. Marcell Coates SPEC GRAVITY <=1.005 Abnormal 1.005-<=1.[address] [facility] Comment on above: Performed By: #### B MP #### [facility] [address] [place] [address] Dr. Marcell Coates UR MICRO IND NOT INDICATED Normal [facility] Comment on above: Performed By: #### B MP #### [facility] [address] [place] [address] Dr. Marcell Coates Urobilinogen Qn (U) 0.2 {Jl'U}/dL Normal 0.2 - 1. 0 [facility] Comment on above: Performed By: #### B MP #### [facility] [address] [place] [address] Dr. Marcell Coates LIPASEon 06-09-2022 Lipase [Catalytic activity/Vol] 82.0 U/L Normal 73.0-393.0 [facility] Comment on above: Performed By: #### B MP #### [facility] [address] [place] [address] Dr. Marcell Coates PROF 14(COMP METB)on 023 Albumin [Mass/Vol] 3.6 g/dL Normal 3.4-5.0 [facility] Comment on above: Performed By: #### B MP #### [facility] [address] [place] [address] Dr. Marcell Coates Albumin/Globulin [Mass ratio] 1.2 {ratio} Normal [facility] Comment on above: Performed By: #### B MP #### [facility] [address] [address] [address] Marcell Coates ALP [Catalytic activity/Vol] 92 U/L Normal 46-116 [facility] Comment on above: Performed By: #### B MP #### [facility] [address] [address] [address] Marcell Coates ALT [Catalytic activity/Vol] 30 U/L Normal 14-59 [facility] Comment on above: Performed By: #### B MP #### [facility] [address] [place] [address] Dr. Marcell Coates Anion gap [Moles/Vol] 12.0 mmol/L Normal [facility] Comment on above: Performed By: #### B MP #### [facility] [address] [place] [address] Dr. Marcell Coates AST [Catalytic activity/Vol] 25 U/L Normal 15-37 [facility] Comment on above: Performed By: #### B MP #### [facility] [address] [place] [address] Dr. Marcell Coates Bilirubin [Mass/Vol] 0.4 mg/dL Normal 0.2-1.0 [facility] Comment on above: Performed By: #### B MP #### [facility] [address] [place] [address] Dr. Marcell Coates Calcium [Mass/Vol] 8.7 mg/dL Normal 8.5-10.1 [facility] Comment on above: Performed By: #### B MP #### [facility] [address] [place] [address] Dr. Marcell Coates Chloride [Moles/Vol] 103 mmol/L Normal 98-107 [facility] Comment on above: Performed By: #### B MP #### [facility] [address] [place] [address] Dr. Marcell Coates CO2 [Moles/Vol] 24.5 mmol/L Normal 21.0-32.0 [facility] Comment on above: Performed By: #### B MP #### [facility] [address] [place], [place] [id number] Dr. Marcell Coates Creatinine [Mass/Vol] 1.04 mg/dL Critically high 0.55-1.02 [facility] Comment on above: Performed By: #### B MP #### [facility] [address] [place] [address] Dr. Marcell Coates EGFR-AF FILIPINO >60 Normal >=60 [facility] Comment on above: Performed By: #### B MP #### [facility] [address] [address] [address] Marcell Coates EGFR-NON AF FILIPINO 56 mL/min/1.73m2 Critically low >=60 [facility] Comment on above: Performed By: #### B MP #### [facility] [address] [place] [address] Dr. Marcell Coates Globulin (S) [Mass/Vol] 3.0 g/dL Normal [facility] Comment on above: Performed By: #### B MP #### [facility] [address] [place] [address] Dr. Marcell Coates Glucose [Mass/Vol] 109 mg/dL Critically high 74-106 [facility] Comment on above: Performed By: #### B MP #### [facility] [address] [place] [address] Dr. Marcell Coates Potassium [Moles/Vol] 3.5 mmol/L Normal 3.5-5.1 [facility] Comment on above: Performed By: #### B MP #### [facility] [address] [place] [address] Dr. Marcell Coates Protein [Mass/Vol] 6.6 g/dL Normal 6.4-8.2 [facility] Comment on above: Performed By: #### B MP #### [facility] [address] [place] [address] Dr. Marcell Coates Sodium [Moles/Vol] 136 mmol/L Normal 136-145 [facility] Comment on above: Performed By: #### B MP #### [facility] [address] [place] [address] Dr. Marcell Coates Urea nitrogen [Mass/Vol] 10.0 mg/dL Normal 7.0-18.0 [facility] Comment on above: Performed By: #### B MP #### [facility] [address] [place] [address] Dr. Marcell Coates Urea nitrogen/Creatinine [Mass ratio] 9.6 mg/mg Normal [facility] Comment on above: Performed By: #### B MP #### [facility] [address] [place] [address] Dr. Marcell Coates XR CHEST 1 Von [...] by: LIOR JIANG Date: 2022-05-11 03:[address] [facility] BNPon 04-22-2022 Natriuretic peptide B (Bld) [Mass/Vol] 9289.0 pg/mL Critically high <=450.0 [facility] Comment on above: Performed By: #### B DRUM SANDER OFFBEARER, BMP #### [facility] [address] [place] [address] Dr. Marcell Coates CBC AUTO DIFFon 04-22-2022 BASO # 0.1 103/ul Normal 0.0-0.1 [facility] Comment on above: Performed By: #### L LENO STERN, CMP #### [facility] [address] [place] [address] Dr. Marcell Coates Basophils/100 WBC (Bld) 0.6 % Normal 0.2-2.0 [facility] Comment on above: Performed By: #### L LENO STERN, CMP #### [facility] [address] [place] [address] Dr. Marcell Coates EO # 0.4 103/ul Normal 0.0-0.7 [facility] Comment on above: Performed By: #### L LENO STERN, CMP #### [facility] [address] [place] [address] Dr. Marcell Coates Eosinophils/100 WBC (Bld) 2.9 % Normal 0.9-7.0 [facility] Comment on above: Performed By: #### L LENO STERN, CMP #### [facility] [address] [place] [address] Dr. Marcell Coates Erythrocyte distribution width (RBC) [Ratio] 14.5 % Normal 11.0-15.0 [facility] Comment on above: Performed By: #### L LENO STERN, CMP #### [facility] [address] [place] [address] Dr. Marcell Coates Hematocrit (Bld) [Volume fraction] 41.6 % Normal 36.0-48.0 [facility] Comment on above: Performed By: #### L LENO STERN, CMP #### [facility] [address] [place] [address] Dr. Marcell Coates Hemoglobin (Bld) [Mass/Vol] 13.1 g/dL Normal 12.0-16.0 [facility] Comment on above: Performed By: #### L LENO STERN, CMP #### [facility] [address] [place] [address] Dr. Marcell Coates IG # 0.05 10e3/ul Critically high 0.00-0.03 [facility] Comment on above: Performed By: #### L LENO STERN, CMP #### [facility] [address] [place], [place] [id number] Dr. Marcell Coates IG % 0.4 % Normal 0.0-0.5 [facility] Comment on above: Performed By: #### L LENO STERN, CMP #### [facility] [address] [place] [address] Dr. Marcell Coates LYMPH # 3.1 103/ul Normal 1.2-3.8 [facility] Comment on above: Performed By: #### L LENO STERN, CMP #### [facility] [address] [place] [address] Dr. Marcell Coates Lymphocytes/100 WBC (Bld) 22.1 % Normal 20.5-60.0 [facility] Comment on above: Performed By: #### L LENO STERN, CMP #### [facility] [address] [place] [address] Dr. Marcell Coates MANUAL DIFF REQ NO Normal [facility] Comment on above: Performed By: #### L LENO STERN, CMP #### [facility] [address] [place] [address] Dr. Marcell Coates MCH (RBC) [Entitic mass] 29.8 pg Normal 26.7-34.0 [facility] Comment on above: Performed By: #### L LENO STERN, CMP #### [facility] [address] [place] [address] Dr. Marcell Coates MCHC (RBC) [Mass/Vol] 31.5 g/dL Normal 29.9-35.2 [facility] Comment on above: Performed By: #### L LENO STERN, CMP #### [facility] [address] [place] [address] Dr. Marcell Coates MCV (RBC) [Entitic vol] 94.5 fL Normal 81.0-99.0 [facility] Comment on above: Performed By: #### L LENO STERN, CMP #### [facility] [address] [place] [address] Dr. Marcell Coates MONO # 0.9 103/ul Critically high 0.3-0.8 [facility] Comment on above: Performed By: #### L LENO STERN, CMP #### [facility] [address] [address] [address] Marcell Coates Monocytes/100 WBC (Bld) 6.1 % Normal 1.7-12.0 [facility] Comment on above: Performed By: #### L IPA, LENO, CMP #### [facility] [address] [address] [address] Marcell Coates NEUT # 9.5 103/ul Critically high 1.4-6.5 [facility] Comment on above: Performed By: #### L IPA LENO, CMP #### [facility] [address] [address] [address] Marcell Coates Neutrophils/100 WBC (Bld) 67.9 % Normal 43.0-75.0 [facility] Comment on above: Performed By: #### L LEENA LENO, CMP #### [facility] [address] [place] [address] Dr. Marcell Coates Platelet mean volume (Bld) [Entitic vol] 10.0 fL Normal 9.5-13.5 [facility] Comment on above: Performed By: #### L LENO STERN, CMP #### [facility] [address] [place] [address] Dr. Marcell Coates PLT 285 103/ul Normal 150-450 [facility] Comment on above: Performed By: #### L LENO STERN, CMP #### [facility] [address] [place] [address] Dr. Marcell Coates RBC 4.40 106/ul Normal 4.20-5.40 [facility] Comment on above: Performed By: #### L IPA LENO, CMP #### [facility] [address] [place] [address] Dr. Marcell Coates WBC 13.9 103/ul Critically high 4.0-11.0 [facility] Comment on above: Performed By: #### L IPA, LENO, CMP #### [facility] [address] [place] [address] Dr. Marcell Coates PROF CHEM 8 (BAS METB)on Anion gap [Moles/Vol] 15.0 mmol/L Normal Th [facility] Comment on above: Performed By: #### B DRUM SANDER OFFBEARER, BMP #### [facility] [address] [place] [address] Dr. Marcell Coates Calcium [Mass/Vol] 9.1 mg/dL Normal 8.5-10.1 [facility] Comment on above: Performed By: #### B DRUM SANDER OFFBEARER, BMP #### [facility] [address] [place] [address] Dr. Marcell Coates Chloride [Moles/Vol] 107 mmol/L Normal 98-107 [facility] Comment on above: Performed By: #### B DRUM SANDER OFFBEARER, BMP #### [facility] [address] [place] [address] Dr. Marclel Coates CO2 [Moles/Vol] 23.4 mmol/L Normal 21.0-32.0 [facility] Comment on above: Performed By: #### B DRUM SANDER OFFBEARER, BMP #### [facility] [address] [place] [address] Dr. Marcell Coates Creatinine [Mass/Vol] 1.00 mg/dL Normal 0.55-1.02 [facility] Comment on above: Performed By: #### B DRUM SANDER OFFBEARER, BMP #### [facility] [address] [place] [address] Dr. Marcell Coates EGFR-AF FILIPINO >60 Normal >=60 [facility] Comment on above: Performed By: #### B DRUM SANDER OFFBEARER, BMP #### [facility] [address] [place] [address] Dr. Marcell Coates EGFR-NON AF FILIPINO 59 mL/min/1.73m2 Critically low >=60 [facility] Comment on above: Performed By: #### B DRUM SANDER OFFBEARER, BMP #### [facility] [address] [place] [address] Dr. Marcell Coates Glucose [Mass/Vol] 166 mg/dL Critically high 74-106 [facility] Comment on above: Performed By: #### B DRUM SANDER OFFBEARER, BMP #### [facility] [address] [place] [address] Dr. Marcell Coates Potassium [Moles/Vol] 3.4 mmol/L Critically low 3.5-5.1 [facility] Comment on above: Performed By: #### B DRUM SANDER OFFBEARER, BMP #### [facility] [address] [address] [address] Marcell Coates Sodium [Moles/Vol] 142 mmol/L Normal 136-145 [facility] Comment on above: Performed By: #### B DRUM SANDER OFFBEARER, BMP #### [facility] [address] [address] [address] Marcell Coates Urea nitrogen [Mass/Vol] 21.0 mg/dL Critically high 7.0-18.0 [facility] Comment on above: Performed By: #### B DRUM SANDER OFFBEARER, BMP #### [facility] [address] [address] [address] Marcell Coates Urea nitrogen/Creatinine [Mass ratio] 21.0 mg/mg Normal [facility] Comment on above: Performed By: #### B DRUM SANDER OFFBEARER, BMP #### [facility] Laboratory [address] [address] [address] Marcell Coates TROPONIN, HIGH SENSITIVITYon 04-22-2022 HSTROP 48.9 pg/mL Normal 4.0-51.3 [facility] Comment on above: Result Comment: CUT- OFF POINTS HAVE BEEN ESTABLISHED BASED ON THE FOURTH UNIVERSAL DEFINITIONS OF MYOCARDIAL INFARCTION. THE UPPER REFERENCE LIMIT (URL) OF TROPONIN, DEFINED THE 99TH PERCENTILE OF cTnI DISTRIBUTION IN A REFERENCE POPULATION, HAS BEEN CONFIRMED THE DECISION THRESHOLD FOR [place] DIAGNOSIS. Performed By: #### H STROPN ####[facility] [address] [address]Dr. Marcell Coates XR CHEST 1 Von 04-22-2022 [...] LIZANDRO LATIF Date: 2022-04-22 19:45 Normal [facility] CARDIAC ISACC 3-6on 2 CK [Catalytic activity/Vol] 63 U/L Normal 26-192 [facility] Comment on above: Performed By: #### C JOHNSONP ####[facility] Y[address] [place], [place] [address]Ik. Marcell Coates CK.MB [Mass/Vol] 1.16 ng/mL Normal <=3.60 The [facility] Comment on above: Performed By: #### C JOHNSONP ####[facility] [address] [id number]. Marcell Coates HSTROP 27.4 pg/mL Normal 4.0-51.3 [facility] Comment on above: Result Comment: CUT- OFF POINTS HAVE BEEN ESTABLISHED BASED ON THE FOURTH UNIVERSAL DEFINITIONS OF MYOCARDIAL INFARCTION. THE UPPER REFERENCE LIMIT (URL) OF TROPONIN, DEFINED THE 99TH PERCENTILE OF cTnI DISTRIBUTION IN A REFERENCE POPULATION, HAS BEEN CONFIRMED THE DECISION THRESHOLD FOR MN DIAGNOSIS. Performed By: #### C JOHNSONP ####[facility] [address] [id number]. Marcell Coates CARDIAC ISACC ADMITon 022 CK [Catalytic activity/Vol] 67 U/L Normal 26-192 [facility] Comment on above: Performed By: #### C RAFY, BMP ####[facility] [address]xf[address] [place], [place] [address]Xv. Marcell Coates CK.MB [Mass/Vol] 0.84 ng/mL Normal <=3.60 [facility] Comment on above: Performed By: #### C RAFY, BMP ####[facility] [address] [id number]. Marcell Coates HSTROP 25.4 pg/mL Normal 4.0-51.3 [facility] Comment on above: Result Comment: CUT- OFF POINTS HAVE BEEN ESTABLISHED BASED ON THE FOURTH UNIVERSAL DEFINITIONS OF MYOCARDIAL INFARCTION. THE UPPER REFERENCE LIMIT (URL) OF TROPONIN, DEFINED THE 99TH PERCENTILE OF cTnI DISTRIBUTION IN A REFERENCE POPULATION, HAS BEEN CONFIRMED THE DECISION THRESHOLD FOR MN DIAGNOSIS. Performed By: #### C RAFY, BMP ####[facility] [address] [id number]. Marcell Coates CHASITY 44 ng/mL Normal 9-82 [facility] Comment on above: Performed By: #### C MADM, BMP ####[facility] [address] [id number]. Marcell Coates CBC AUTO DIFFon 01-22-2022 BASO # 0.1 103/ul Normal 0.0-0.1 [facility] Comment on above: Performed By: #### L IPA, LENO, CMP #### [facility] Laboratory [address] [address] [address] Marcell Coates Basophils/100 WBC (Bld) 0.7 % Normal 0.2-2.0 [facility] Comment on above: Performed By: #### L IPA, LENO, CMP #### [facility] Laboratory [address] [place] [address] Dr. Marcell Coates EO # 0.5 103/ul Normal 0.0-0.7 [facility] Comment on above: Performed By: #### L IPA LENO, CMP #### [facility] Laboratory [address] [address] [address] Marcell Coates Eosinophils/100 WBC (Bld) 4.4 % Normal 0.9-7.0 [facility] Comment on above: Performed By: #### L IPA, LENO, CMP #### [facility] Laboratory [address] [address] [address] Marcell Coates Erythrocyte distribution width (RBC) [Ratio] 13.3 % Normal 11.0-15.0 [facility] Comment on above: Performed By: #### L IPA, LENO, CMP #### [facility] Laboratory [address] [address] [address] Marcell Coates Hematocrit (Bld) [Volume fraction] 41.9 % Normal 36.0-48.0 [facility] Comment on above: Performed By: #### L IPA, LENO, CMP #### [facility] Laboratory [address] [address] [address] Marcell Coates Hemoglobin (Bld) [Mass/Vol] 14.2 g/dL Normal 12.0-16.0 [facility] Comment on above: Performed By: #### L IPA, LENO, CMP #### [facility] Laboratory [address] [place] [address] Dr. Marcell Coates IG # 0.03 10e3/ul Normal 0.00-0.03 [facility] Comment on above: Performed By: #### L IPA, LENO, CMP #### [facility] Laboratory [address] [place] [address] Dr. Marcell Coates IG % 0.2 % Normal 0.0-0.5 [facility] Comment on above: Performed By: #### L IPA, LENO, CMP #### [facility] Laboratory [address] [place] [address] Dr. Marcell Coates LYMPH # 4.0 103/ul Critically high 1.2-3.8 [facility] Comment on above: Performed By: #### L IPA, LENO, CMP #### [facility] Laboratory [address] [place] [address] Dr. Marcell Coates Lymphocytes/100 WBC (Bld) 32.9 % Normal 20.5-60.0 [facility] Comment on above: Performed By: #### L IPA LENO, CMP #### [facility] Laboratory [address] [place] [address] Dr. Marcell Coates MANUAL DIFF REQ NO Normal [facility] Comment on above: Performed By: #### L IPA, LENO, CMP #### [facility] Laboratory [address] [place] [address] Dr. Marcell Coates MCH (RBC) [Entitic mass] 30.3 pg Normal 26.7-34.0 [facility] Comment on above: Performed By: #### L IPA, LENO, CMP #### [facility] Laboratory [address] [place] [address] Dr. Marcell Coates MCHC (RBC) [Mass/Vol] 33.9 g/dL Normal 29.9-35.2 [facility] Comment on above: Performed By: #### L IPA, LENO, CMP #### [facility] Laboratory [address] [place] [address] Dr. Marcell Coates MCV (RBC) [Entitic vol] 89.5 fL Normal 81.0-99.0 [facility] Comment on above: Performed By: #### L LENO STERN, CMP #### [facility] Laboratory [address] [place] [address] Dr. Marcell Coates MONO # 0.9 103/ul Critically high 0.3-0.8 The [facility] Comment on above: Performed By: #### L LENO STERN, CMP #### [facility] Laboratory [address] [place] [address] Dr. Marcell Coates Monocytes/100 WBC (Bld) 7.3 % Normal 1.7-12.0 [facility] Comment on above: Performed By: #### L LENO STERN, CMP #### [facility] Laboratory [address] [place] [address] Dr. Marcell Coates NEUT # 6.6 103/ul Critically high 1.4-6.5 The [facility] Comment on above: Performed By: #### L LENO STERN, CMP #### [facility] Laboratory [address] [place] [address] Dr. Marcell Coates Neutrophils/100 WBC (Bld) 54.5 % Normal 43.0-75.0 [facility] Comment on above: Performed By: #### L LENO STERN, CMP #### [facility] Laboratory [address] [place] [address] Dr. Marcell Coates Platelet mean volume (Bld) [Entitic vol] 10.0 fL Normal 9.5-13.5 [facility] Comment on above: Performed By: #### L LENO STERN, CMP #### [facility] Laboratory [address] [place] [address] Dr. Marcell Coates PLT 250 103/ul Normal 150-450 [facility] Comment on above: Performed By: #### L LENO STERN, CMP #### [facility] Laboratory [address] [place] [address] Dr. Marcell Coates RBC 4.68 106/ul Normal 4.20-5.40 [facility] Comment on above: Performed By: #### L LENO STERN, CMP #### [facility] Laboratory [address] [address] [address] Marcell Coates WBC 12.1 103/ul Critically high 4.0-11.0 [facility] Comment on above: Performed By: #### L LENO STERN, CMP #### [facility] Laboratory [address] [address] [address] HEAD WO CONon [...] HAYLEE KILPATRICK Date: 2022-01-22 01:46 Normal [facility] PROF CHEM 8 (BAS METB)on Anion gap [Moles/Vol] 13.4 mmol/L Normal [facility] Comment on above: Performed By: #### C LILLY HILLMAN ####[facility] [address] [address]DrSherrie Coates Calcium [Mass/Vol] 9.6 mg/dL Normal 8.5-10.1 The [facility] Comment on above: Performed By: #### C RAFY BMP ####[facility] [address] [id number] Coates Chloride [Moles/Vol] 103 mmol/L Normal 98-107 [facility] Comment on above: Performed By: #### C RAFY, BMP ####[facility] [address] [address]DrSherrie Coates CO2 [Moles/Vol] 25.4 mmol/L Normal 21.0-32.0 [facility] Comment on above: Performed By: #### C MADM, BMP ####[facility] [address] [address]Dr. Marcell Coates Creatinine [Mass/Vol] 0.97 mg/dL Normal 0.55-1.02 [facility] Comment on above: Performed By: #### C MADM, BMP ####[facility] [address] [address]Dr. Marcell Coates EGFR-AF FILIPINO >60 Normal >=60 [facility] Comment on above: Performed By: #### C MADM, BMP ####[facility] [address] [address]Dr. Marcell Coates EGFR-NON AF FILIPINO >60 Normal >=60 [facility] Comment on above: Performed By: #### C MADM, BMP ####[facility] [address] [address]Dr. Marcell Coates Glucose [Mass/Vol] 146 mg/dL Critically high 74-106 [facility] Comment on above: Performed By: #### C MADM, BMP ####[facility] [address] [address]Dr. Marcell Coates Potassium [Moles/Vol] 3.8 mmol/L Normal 3.5-5.1 [facility] Comment on above: Performed By: #### C MADM, BMP ####[facility] [address] [address]Dr. Marcell Coates Sodium [Moles/Vol] 138 mmol/L Normal 136-145 [facility] Comment on above: Performed By: #### C MADM, BMP ####[facility] [address] [address]Dr. Marcell Coates Urea nitrogen [Mass/Vol] 19.0 mg/dL Critically high 7.0-18.0 [facility] Comment on above: Performed By: #### C MADM, BMP ####[facility] [address] [address]Dr. Marcell Coates Urea nitrogen/Creatinine [Mass ratio] 19.6 mg/mg Normal [facility] Comment on above: Performed By: #### C MADM, [facility] ####[facility] [address] [address]Dr. Marcell Coates XR CHEST 1 Von 01-22-2022 [...] Minal HARRIS Date: 2022-01-22 01:40 Normal [facility] XR SHOULDER LT 2V or >on XR [...] Minal HARRIS Date: 2022-01-22 04:36 Normal [facility] CBC AUTO DIFFon 12-22-2021 BASO # 0.1 103/ul Normal 0.0-0.1 [facility] Comment on above: Performed By: #### C BC ####[facility] [address] [address]Dr. Marcell Coates Basophils/100 WBC (Bld) 0.6 % Normal 0.2-2.0 [facility] Comment on above: Performed By: #### C BC ####[facility] [address] [address]Dr. Marcell Coates EO # 0.6 103/ul Normal 0.0-0.7 [facility] Comment on above: Performed By: #### C BC ####[facility] [address] [address]Dr. Marcell Coates Eosinophils/100 WBC (Bld) 4.8 % Normal 0.9-7.0 [facility] Comment on above: Performed By: #### C BC ####[facility] [address] [address]Dr. Marcell Coates Erythrocyte distribution width (RBC) [Ratio] 13.5 % Normal 11.0-15.0 [facility] Comment on above: Performed By: #### C BC ####[facility] [address] [place], [place] [address]Dr. Marcell Coates Hematocrit (Bld) [Volume fraction] 43.7 % Normal 36.0-48.0 [facility] Comment on above: Performed By: #### C BC ####[facility] By[address] [place], [place] [address]Dr. Marcell Coates Hemoglobin (Bld) [Mass/Vol] 14.4 g/dL Normal 12.0-16.0 [facility] Comment on above: Performed By: #### C BC ####[facility] [address] [place], [place] [address]Dr. Marcell Coates IG # 0.04 10e3/ul Critically high 0.00-0.03 [facility] Comment on above: Performed By: #### C BC ####[facility] [address] [place], [place] [address]Dr. Marcell Coates IG % 0.3 % Normal 0.0-0.5 [facility] Comment on above: Performed By: #### C BC ####[facility] Y[address] [place], [place] [address]Dr. Marcell Coates LYMPH # 3.2 103/ul Normal 1.2-3.8 [facility] Comment on above: Performed By: #### C BC ####[facility] Ibs[address] [place], [place] [address]Dr. Marcell Coates Lymphocytes/100 WBC (Bld) 24.6 % Normal 20.5-60.0 [facility] Comment on above: Performed By: #### C BC ####[facility] [address] [address]Dr. Marcell Coates MANUAL DIFF REQ NO Normal The [facility] Comment on above: Performed By: #### C BC ####[facility] [address] [address]Dr. Marcell Coates MCH (RBC) [Entitic mass] 29.9 pg Normal 26.7-34.0 [facility] Comment on above: Performed By: #### C BC ####[facility] [address] [place], [place] [address]Dr. Marcell Coates MCHC (RBC) [Mass/Vol] 33.0 g/dL Normal 29.9-35.2 [facility] Comment on above: Performed By: #### C BC ####[facility] Nx[address] [place], [place] [address]Dr. Marcell Coates MCV (RBC) [Entitic vol] 90.9 fL Normal 81.0-99.0 [facility] Comment on above: Performed By: #### C BC ####[facility] [address] [place], [place] [address]Dr. Marcell Coates MONO # 1.2 103/ul Critically high 0.3-0.8 [facility] Comment on above: Performed By: #### C BC ####[facility] [address]sv[address] [place], [place] [address]Dr. aMrcell Coates Monocytes/100 WBC (Bld) 9.1 % Normal 1.7-12.0 [facility] Comment on above: Performed By: #### C BC ####[facility] [address] [place], [place] [address]Dr. Marcell Coates NEUT # 7.9 103/ul Critically high 1.4-6.5 The [facility] Comment on above: Performed By: #### C BC ####[facility] [address]sw[address] [place], [place] [address]Dr. Marcell Coates Neutrophils/100 WBC (Bld) 60.6 % Normal 43.0-75.0 [facility] Comment on above: Performed By: #### C BC ####[facility] [address]ef[address] [place], [place] [address]Zo. Marcell Coates Platelet mean volume (Bld) [Entitic vol] 10.2 fL Normal 9.5-13.5 [facility] Comment on above: Performed By: #### C BC ####[facility] [address] [place], [place] [address]Cr. Marcell Coates PLT 284 103/ul Normal 150-450 [facility] Comment on above: Performed By: #### C BC ####[facility] [address]zxfpfwxii8667 [place], [place] [address]Yf. Marcell Coates RBC 4.81 106/ul Normal 4.20-5.40 [facility] Comment on above: Performed By: #### C BC ####[facility] Hrdgdeizcx3723 [place], [place] [address]Ul. Marcell Coates WBC 13.0 103/ul Critically high 4.0-11.0 [facility] Comment on above: Performed By: #### C BC ####[facility] T[address]bk[address]nfv[address] [place], [place] [address]Kh. Marcell Coates CTA CHEST WO W CONon [...] LIOR JIANG Date: 2021-12-22 03:52 Normal [facility] Covid-19 PCR ([facility])on SARS-CoV-2 (COVID-19) RNA RUSSELL+probe Ql (Unsp spec) Not detected Normal NOT DETECTED [facility] Comment on above: Result Comment: When diagnostic [...] for this test is supported by the Energy Project Manager of Health and Human Service's declaration [...] By: #### L LENO STERN CMP #### [facility] Laboratory [address] [place], [place] [address] Dr. Marcell Coates INFLUENZA A AND B AGon 12-22 INFLUENZA A AG Negative Normal NEGATIVE SEE COMMENT [facility] Comment on above: Performed By: #### I NFLUAB ####[facility] [address] [address]Dr. Marcell Coates INFLUENZA B AG Negative Normal NEGATIVE SEE COMMENT [facility] Comment on above: Performed By: #### I NFLUAB ####[facility] [address] [place], [place] [address]Dr. Marcell Coates INFLUPOSH SEE BELOW Normal [facility] Comment on above: Result Comment: NOTE : Live attenuated influenzae vaccine viruses can cause a positive result for a rapid influenza diagnostic test if administered up to 7 days prior to rapid testing. Performed By: #### I NFLUAB ####[facility] [address] [place], [place] [address]Dr. Marcell Coates INFLUPOSHB SEE BELOW Normal [facility] Comment on above: Result Comment: NOTE : Live attenuated influenzae vaccine viruses can cause a positive result for a rapid influenza diagnostic test if administered up to 7 days prior to rapid testing. Performed By: #### I NFLUAB ####[facility] [address] [place], [place] [address]Dr. Marcell Coates INTERNAL CONTROLS Within Normal Limits Normal Wi thin Normal Limits [facility] Comment on above: Performed By: #### I NFLUAB ####[facility] [address] [place], [place] [address]DrSherrie Coates PROF CHEM 8 (BAS METB)on Anion gap [Moles/Vol] 14.3 mmol/L Normal [facility] Comment on above: Performed By: #### B MP #### [facility] Laboratory [address] [place] [address] Dr. Marcell Coates Calcium [Mass/Vol] 9.0 mg/dL Normal 8.5-10.1 [facility] Comment on above: Performed By: #### B MP #### [facility] Laboratory [address] [address] [address] Marcell Coates Chloride [Moles/Vol] 105 mmol/L Normal 98-107 [facility] Comment on above: Performed By: #### B MP #### [facility] Laboratory [address] [address] [address] Marcell Coates CO2 [Moles/Vol] 24.6 mmol/L Normal 21.0-32.0 [facility] Comment on above: Performed By: #### B MP #### [facility] Laboratory [address] [address] [address] Marcell Coates Creatinine [Mass/Vol] 1.19 mg/dL Critically high 0.55-1.02 [facility] Comment on above: Performed By: #### B MP #### [facility] Laboratory [address] [address] [address] Marcell Coates EGFR-AF FILIPINO 59 mL/min/1.73m2 Critically low >=60 [facility] Comment on above: Performed By: #### B MP #### [facility] Laboratory [address] [address] [address] Marcell Coates EGFR-NON AF FILIPINO 48 mL/min/1.73m2 Critically low >=60 [facility] Comment on above: Performed By: #### B MP #### [facility] Laboratory [address] [address] [address] Marcell Coates Glucose [Mass/Vol] 124 mg/dL Critically high 74-106 [facility] Comment on above: Performed By: #### B MP #### [facility] Laboratory [address] [place] [address] Dr. Marcell Coates Potassium [Moles/Vol] 3.9 mmol/L Normal 3.5-5.1 [facility] Comment on above: Performed By: #### B MP #### [facility] Laboratory [address] [address] [address] Marcell Coates Sodium [Moles/Vol] 140 mmol/L Normal 136-145 [facility] Comment on above: Performed By: #### B MP #### [facility] Laboratory [address] [address] [address] Marcell Coates Urea nitrogen [Mass/Vol] 18.0 mg/dL Normal 7.0-18.0 [facility] Comment on above: Performed By: #### B MP #### [facility] Laboratory [address] [address] [address] Marcell Coates Urea nitrogen/Creatinine [Mass ratio] 15.1 mg/mg Normal [facility] Comment on above: Performed By: #### B MP #### [facility] Laboratory [address] [address] [address] Marcell Coates XR CHEST 1 Von [...] LIOR JIANG Date: 2021-12-22 01:41 Normal [facility] CBC AUTO DIFFon 11-07-2021 BASO # 0.1 103/ul Normal 0.0-0.1 [facility] Comment on above: Performed By: #### C BC ####[facility] [address] [address]Dr. Marcell Coates Basophils/100 WBC (Bld) 1.0 % Normal 0.2-2.0 [facility] Comment on above: Performed By: #### C BC ####[facility] [address] [address]DrSherrie Coates EO # 0.4 103/ul Normal 0.0-0.7 [facility] Comment on above: Performed By: #### C BC ####[facility] [address] [address]DrSherrie Coates Eosinophils/100 WBC (Bld) 3.7 % Normal 0.9-7.0 [facility] Comment on above: Performed By: #### C BC ####[facility] [address] [address]DrSherrie Coates Erythrocyte distribution width (RBC) [Ratio] 13.8 % Normal 11.0-15.0 [facility] Comment on above: Performed By: #### C BC ####[facility] [address] [address]Dr. Marcell Coates Hematocrit (Bld) [Volume fraction] 45.2 % Normal 36.0-48.0 [facility] Comment on above: Performed By: #### C BC ####[facility] [address] [address]Dr. Marcell Coates Hemoglobin (Bld) [Mass/Vol] 15.2 g/dL Normal 12.0-16.0 [facility] Comment on above: Performed By: #### C BC ####[facility] [address]tsr[address] [place], [place] [address]Dr. Marcell Coates IG # 0.03 10e3/ul Normal 0.00-0.03 [facility] Comment on above: Performed By: #### C BC ####[facility] [address] [place], [place] [address]Dr. Marcell Coates IG % 0.3 % Normal 0.0-0.5 [facility] Comment on above: Performed By: #### C BC ####[facility] [address]vhqhyae[address] [place], [place] [address]Dr. Marcell Coates LYMPH # 4.0 103/ul Critically high 1.2-3.8 The [facility] Comment on above: Performed By: #### C BC ####[facility] [address]cliz[address] [place], [place] [address]Dr. Marcell Coates Lymphocytes/100 WBC (Bld) 34.8 % Normal 20.5-60.0 [facility] Comment on above: Performed By: #### C BC ####[facility] Bhbiay[address]ak[address] [place], [place] [address]Dr. Marcell Coates MANUAL DIFF REQ NO Normal The [facility] Comment on above: Performed By: #### C BC ####[facility] Revzvbnlwi[address] [place], [place] [address]Dr. Marcell Coates MCH (RBC) [Entitic mass] 30.3 pg Normal 26.7-34.0 [facility] Comment on above: Performed By: #### C BC ####[facility] [address] [id number]. Marcell Jaxon MCHC (RBC) [Mass/Vol] 33.6 g/dL Normal 29.9-35.2 [facility] Comment on above: Performed By: #### C BC ####[facility] [address]rw[address] [id number]. Ansilvio Coates MCV (RBC) [Entitic vol] 90.2 fL Normal 81.0-99.0 [facility] Comment on above: Performed By: #### C BC ####[facility] X[address]by[address] [place], [place] [address]Dr. Marcell Coates MONO # 1.0 103/ul Critically high 0.3-0.8 The [facility] Comment on above: Performed By: #### C BC ####[facility] B[address]jc[address]wf[address] [place], [place] [address]Dr. Marcell Coates Monocytes/100 WBC (Bld) 8.7 % Normal 1.7-12.0 [facility] Comment on above: Performed By: #### C BC ####[facility] [address]nrufqxr[address] [place], [place] [address]Dr. Marcell Coates NEUT # 5.9 103/ul Normal 1.4-6.5 [facility] Comment on above: Performed By: #### C BC ####[facility] N[address]qkksjp[address] [place], [place] [address]Dr. Marcell Coates Neutrophils/100 WBC (Bld) 51.5 % Normal 43.0-75.0 [facility] Comment on above: Performed By: #### C BC ####[facility] Xfeurtxpyj[address] [place], [place] [address]Dr. Marcell Coates Platelet mean volume (Bld) [Entitic vol] 9.7 fL Normal 9.5-13.5 [facility] Comment on above: Performed By: #### C BC ####[facility] N[address] [place], [place] [address]Dr. Marcell Coates PLT 326 103/ul Normal 150-450 [facility] Comment on above: Performed By: #### C BC ####[facility] [address]ix[address]nx[address]zh[address] [place], [place] [address]Uq. Marcell Coates RBC 5.01 106/ul Normal 4.20-5.40 [facility] Comment on above: Performed By: #### C BC ####[facility] Wuntg[address]wdl20[address] [place], [place] [address]Qo. Marcell Coates WBC 11.4 103/ul Critically high 4.0-11.0 [facility] Comment on above: Performed By: #### C BC ####[facility] Ljbrbfhxrb[address]42 [place], [place] [address]. [address] HEAD WO CONon 11-07-2021 [...] CELINE KO Date: 2021-11-06 23:14 Normal [facility] PROF 14(COMP METB)on 022 Albumin [Mass/Vol] 4.1 g/dL Normal 3.4-5.0 [facility] Comment on above: Performed By: #### C MP ####[facility] [address]p57[address] [place], [place] [address]Nc. Marcell Coates Albumin/Globulin [Mass ratio] 1.1 {ratio} Normal [facility] Comment on above: Performed By: #### C MP ####[facility] [address]bwxfxou480[address] [place] [id number]. Marcell Coates ALP [Catalytic activity/Vol] 85 U/L Normal 46-116 [facility] Comment on above: Performed By: #### C MP ####[facility] Qvxgbrrmzd6602 [place] [id number]. Marcell Coates ALT [Catalytic activity/Vol] 21 U/L Normal 14-59 [facility] Comment on above: Performed By: #### C MP ####[facility] Lhcctemwmq9426 [place] [id number]. Marcell Coates Anion gap [Moles/Vol] 14.7 mmol/L Normal Th [facility] Comment on above: Performed By: #### C MP ####[facility] [address] [place] [address]Dr. Marcell Coates AST [Catalytic activity/Vol] 18 U/L Normal 15-37 [facility] Comment on above: Performed By: #### C MP ####[facility] [address]wzp60[address] [place] [address]Dr. Marcell Coates Bilirubin [Mass/Vol] 0.3 mg/dL Normal 0.2-1.0 [facility] Comment on above: Performed By: #### C MP ####[facility] Ssggmkpmjp7760 [place] [id number]. Marcell Coates Calcium [Mass/Vol] 9.3 mg/dL Normal 8.5-10.1 [facility] Comment on above: Performed By: #### C MP ####[facility] Lkejhooupl58[address] [place] [id number]. Marcell Coates Chloride [Moles/Vol] 101 mmol/L Normal 98-107 [facility] Comment on above: Performed By: #### C MP ####[facility] [address]ks[address] [place] [address]Dr. Marcell Coates CO2 [Moles/Vol] 22.6 mmol/L Normal 21.0-32.0 The [facility] Comment on above: Performed By: #### C MP ####[facility] Kddlmjcyyq9834 [place] [id number]. Marcell Coates Creatinine [Mass/Vol] 1.25 mg/dL Critically high 0.55-1.02 [facility] Comment on above: Performed By: #### C MP ####[facility] Gejhvpmztz2319 [place], [place] [address]Wm. Marcell Coates EGFR-AF FILIPINO 55 mL/min/1.73m2 Critically low >=60 [facility] Comment on above: Performed By: #### C MP ####[facility] Ogbloklcef[address] [place] [address]Dr. Marcell Coates EGFR-NON AF FILIPINO 46 mL/min/1.73m2 Critically low >=60 [facility] Comment on above: Performed By: #### C MP ####[facility] [address]xakvzy4[address] [place] [address]Dr. Marcell Coates Globulin (S) [Mass/Vol] 3.6 g/dL Normal [facility] Comment on above: Performed By: #### C MP ####[facility] Fgujpeiobp6251 [place] [address]Dr. Marcell Coates Glucose [Mass/Vol] 107 mg/dL Critically high 74-106 T [facility] Comment on above: Performed By: #### C MP ####[facility] Awgaxrfbnq25[address] [place] [id number]. Marcell Coates Potassium [Moles/Vol] 3.3 mmol/L Critically low 3.5-5.1 [facility] Comment on above: Performed By: #### C MP ####[facility] Roaargoewp[address] [place] [id number]. Marcell Coates Protein [Mass/Vol] 7.7 g/dL Normal 6.4-8.2 [facility] Comment on above: Performed By: #### C MP ####[facility] Qdwjcjckam53[address] [place] [id number]. Marcell Coates Sodium [Moles/Vol] 135 mmol/L Critically low 136-145 [facility] Comment on above: Performed By: #### C MP ####[facility] Gntdnfbdda9407 [place], [place] [address]XiDr. Marcell Coates Urea nitrogen [Mass/Vol] 20.0 mg/dL Critically high 7.0-18.0 [facility] Comment on above: Performed By: #### C MP ####[facility] Aojaavumdj3461 [place], [place] [address]DjDr. Marcell Coates Urea nitrogen/Creatinine [Mass ratio] 16.0 mg/mg Normal [facility] Comment on above: Performed By: #### C MP ####[facility] Eunasgvrmf4743 [place], [place] [address]UrDr. Marcell Coates CBC AUTO DIFFon 09-14-2021 BASO # 0.0 103/ul Normal 0.0-0.1 [facility] Comment on above: Performed By: #### L LENO STERN, CMP #### [facility] [address] [address] [address] Marcell Coates Basophils/100 WBC (Bld) 0.1 % Critically low 0.2-2.0 [facility] Comment on above: Performed By: #### L LENO STERN, CMP #### [facility] [address] [address] [address] Marcell Coates EO # 0.0 103/ul Normal 0.0-0.7 [facility] Comment on above: Performed By: #### L LENO STERN, CMP #### [facility] [address] [address] [address] Marcell Coates Eosinophils/100 WBC (Bld) 0.0 % Critically low 0.9-7.0 [facility] Comment on above: Performed By: #### L LENO STERN, CMP #### [facility] [address] [address] [address] Marcell Coates Erythrocyte distribution width (RBC) [Ratio] 12.8 % Normal 11.0-15.0 [facility] Comment on above: Performed By: #### L LENO STERN, CMP #### [facility] [address] [address] [address] Marcell Coates Hematocrit (Bld) [Volume fraction] 40.8 % Normal 36.0-48.0 [facility] Comment on above: Performed By: #### L LNEO STERN, CMP #### [facility] [address] [place] [address] Dr. Marcell Coates Hemoglobin (Bld) [Mass/Vol] 13.2 g/dL Normal 12.0-16.0 [facility] Comment on above: Performed By: #### L LENO STERN, CMP #### [facility] [address] [place] [address] Dr. Marcell Coates IG # 0.07 10e3/ul Critically high 0.00-0.03 [facility] Comment on above: Performed By: #### L LENO STERN, CMP #### [facility] [address] [place] [address] Dr. Marcell Coates IG % 0.6 % Critically high 0.0-0.5 The [facility] Comment on above: Performed By: #### L LENO STERN, CMP #### [facility] [address] [place] [address] Dr. Marcell Coates LYMPH # 1.6 103/ul Normal 1.2-3.8 [facility] Comment on above: Performed By: #### L LENO STERN, CMP #### [facility] [address] [place] [address] Dr. Marcell Coates Lymphocytes/100 WBC (Bld) 14.3 % Critically low 20.5-60.0 [facility] Comment on above: Performed By: #### L LENO STERN, CMP #### [facility] [address] [place] [address] Dr. Marcell Coates MANUAL DIFF REQ NO Normal The [facility] Comment on above: Performed By: #### L LENO STERN, CMP #### [facility] [address] [place] [address] Dr. Marcell Coates MCH (RBC) [Entitic mass] 29.8 pg Normal 26.7-34.0 [facility] Comment on above: Performed By: #### L LENO STERN, CMP #### [facility] [address] [place] [address] Dr. Marcell Coates MCHC (RBC) [Mass/Vol] 32.4 g/dL Normal 29.9-35.2 [facility] Comment on above: Performed By: #### L LENO STERN, CMP #### [facility] [address] [place] [address] Dr. Marcell Coates MCV (RBC) [Entitic vol] 92.1 fL Normal 81.0-99.0 [facility] Comment on above: Performed By: #### L LENO STERN, CMP #### [facility] [address] [place] [address] Dr. Marcell Coates MONO # 0.3 103/ul Normal 0.3-0.8 [facility] Comment on above: Performed By: #### L LENO STERN, CMP #### [facility] [address] [place] [address] Dr. Marcell Coates Monocytes/100 WBC (Bld) 2.4 % Normal 1.7-12.0 [facility] Comment on above: Performed By: #### L LENO STERN, CMP #### [facility] [address] [place] [address] Dr. Marcell Coates NEUT # 9.3 103/ul Critically high 1.4-6.5 The [facility] Comment on above: Performed By: #### L LENO STERN, CMP #### [facility] [address] [place] [address] Dr. Marcell Coates Neutrophils/100 WBC (Bld) 82.6 % Critically high 43.0-75.0 [facility] Comment on above: Performed By: #### L LENO STERN, CMP #### [facility] [address] [place] [address] Dr. Marcell Coates Platelet mean volume (Bld) [Entitic vol] 9.8 fL Normal 9.5-13.5 [facility] Comment on above: Performed By: #### L LENO STERN, CMP #### [facility] [address] [place] [address] Dr. Marcell Coates PLT 292 103/ul Normal 150-450 [facility] Comment on above: Performed By: #### L LENO STERN, CMP #### [facility] [address] [address] [address] Marcell Coates RBC 4.43 106/ul Normal 4.20-5.40 [facility] Comment on above: Performed By: #### L LENO STERN, CMP #### [facility] [address] [place] [address] Dr. Marcell Coates WBC 11.3 103/ul Critically high 4.0-11.0 [facility] Comment on above: Performed By: #### L LENO STERN, CMP #### [facility] [address] [place] [address] Dr. Marcell Coates PROF CHEM 8 (BAS METB)on Anion gap [Moles/Vol] 13.8 mmol/L Normal [facility] Comment on above: Performed By: #### B MP #### [facility] [address] [place] [address] Dr. Marcell Coates Calcium [Mass/Vol] 8.9 mg/dL Normal 8.5-10.1 [facility] Comment on above: Performed By: #### B MP #### [facility] [address] [place] [address] Dr. Marcell Coates Chloride [Moles/Vol] 102 mmol/L Normal 98-107 [facility] Comment on above: Performed By: #### B MP #### [facility] [address] [place] [address] Dr. Marcell Coates CO2 [Moles/Vol] 24.3 mmol/L Normal 21.0-32.0 [facility] Comment on above: Performed By: #### B MP #### [facility] [address] [place] [address] Dr. Marcell Coates Creatinine [Mass/Vol] 1.15 mg/dL Critically high 0.55-1.02 [facility] Comment on above: Performed By: #### B MP #### [facility] [address] [place] [address] Dr. Marcell Coates EGFR-AF FILIPINO >60 Normal >=60 [facility] Comment on above: Performed By: #### B MP #### [facility] [address] [address] [address] Marcell Coates EGFR-NON AF FILIPINO 50 mL/min/1.73m2 Critically low >=60 [facility] Comment on above: Performed By: #### B MP #### [facility] [address] [address] [address] Marcell Coates Glucose [Mass/Vol] 317 mg/dL Critically high 74-106 T [facility] Comment on above: Performed By: #### B MP #### [facility] [address] [address] [address] Marcell Coates Potassium [Moles/Vol] 4.1 mmol/L Normal 3.5-5.1 [facility] Comment on above: Performed By: #### B MP #### [facility] [address] [address] [address] Marcell Coates Sodium [Moles/Vol] 136 mmol/L Normal 136-145 [facility] Comment on above: Performed By: #### B MP #### [facility] [address] [address] [address] Marcell Coates Urea nitrogen [Mass/Vol] 25.0 mg/dL Critically high 7.0-18.0 [facility] Comment on above: Performed By: #### B MP #### [facility] [address] [address] [address] Marcell Coates Urea nitrogen/Creatinine [Mass ratio] 21.7 mg/mg Normal [facility] Comment on above: Performed By: #### B MP #### [facility] [address] [address] [address] Marcell Coates CBC AUTO DIFFon 09-13-2021 BASO # 0.1 103/ul Normal 0.0-0.1 [facility] Comment on above: Performed By: #### C BC ####[facility] [address]oytadmc0894 [place], [place] [address]YiDr. Marcell Coates Basophils/100 WBC (Bld) 0.8 % Normal 0.2-2.0 [facility] Comment on above: Performed By: #### C BC ####[facility] W[address]wiocjykt[address] [place] [id number]. Marcell Coates EO # 0.4 103/ul Normal 0.0-0.7 [facility] Comment on above: Performed By: #### C BC ####[facility] [address]ksgay[address] [place] [address]Dr. Marcell Coates Eosinophils/100 WBC (Bld) 4.1 % Normal 0.9-7.0 [facility] Comment on above: Performed By: #### C BC ####[facility] [address] [place], [place] [address]Dr. Marcell Coates Erythrocyte distribution width (RBC) [Ratio] 13.3 % Normal 11.0-15.0 [facility] Comment on above: Performed By: #### C BC ####[facility] [address] [place], [place] [address]Dr. Marcell Coates Hematocrit (Bld) [Volume fraction] 41.5 % Normal 36.0-48.0 [facility] Comment on above: Performed By: #### C BC ####[facility] [address] [place], [place] [address]Dr. Marcell Coates Hemoglobin (Bld) [Mass/Vol] 13.6 g/dL Normal 12.0-16.0 [facility] Comment on above: Performed By: #### C BC ####[facility] [address] [place], [place] [address]Dr. Marcell Coates IG # 0.02 10e3/ul Normal 0.00-0.03 [facility] Comment on above: Performed By: #### C BC ####[facility] [address] [place], [place] [address]Dr. Marcell Coates IG % 0.2 % Normal 0.0-0.5 [facility] Comment on above: Performed By: #### C BC ####[facility] [address] [place], [place] [address]Dr. Ansilvio Coates LYMPH # 3.9 103/ul Critically high 1.2-3.8 The [facility] Comment on above: Performed By: #### C BC ####[facility] [address]whimttgi[address] [place] [id number]. Marcell Coates Lymphocytes/100 WBC (Bld) 37.9 % Normal 20.5-60.0 [facility] Comment on above: Performed By: #### C BC ####[facility] [address]cltr[address] [place] [address]Dr. Marcell Coates MANUAL DIFF REQ NO Normal The [facility] Comment on above: Performed By: #### C BC ####[facility] V[address]pxgbkpf8[address] [place] [address]Dr. Marcell Coates MCH (RBC) [Entitic mass] 30.2 pg Normal 26.7-34.0 [facility] Comment on above: Performed By: #### C BC ####[facility] [address]irtpmvan[address] [place] [address]Dr. Marcell Coates MCHC (RBC) [Mass/Vol] 32.8 g/dL Normal 29.9-35.2 [facility] Comment on above: Performed By: #### C BC ####[facility] [address]xbqej[address] [place] [address]Dr. Marcell Coates MCV (RBC) [Entitic vol] 92.2 fL Normal 81.0-99.0 [facility] Comment on above: Performed By: #### C BC ####[facility] Txnmphwznr[address] [place] [address]Dr. Marcell Coates MONO # 0.8 103/ul Normal 0.3-0.8 [facility] Comment on above: Performed By: #### C BC ####[facility] Bdavqlhyrg[address] [place] [id number]. Marcell Coates Monocytes/100 WBC (Bld) 8.1 % Normal 1.7-12.0 [facility] Comment on above: Performed By: #### C BC ####[facility] [address] [place], [place] [id number]. Marcell Coates NEUT # 5.0 103/ul Normal 1.4-6.5 [facility] Comment on above: Performed By: #### C BC ####[facility] Uvmgkmztkm1673 [place], [place] [address]Ef. Marcell Coates Neutrophils/100 WBC (Bld) 48.9 % Normal 43.0-75.0 [facility] Comment on above: Performed By: #### C BC ####[facility] Waqykjxuvf7830 [place], [place] [address]Ri. Marcell Coates Platelet mean volume (Bld) [Entitic vol] 9.5 fL Normal 9.5-13.5 [facility] Comment on above: Performed By: #### C BC ####[facility] Phhjnkpvqm1567 [place], [place] [address]Ly. Marcell Jaxon PLT 288 103/ul Normal 150-450 [facility] Comment on above: Performed By: #### C BC ####[facility] [address]sp[address] [place] [id number]. Marcell Coates RBC 4.50 106/ul Normal 4.20-5.40 [facility] Comment on above: Performed By: #### C BC ####[facility] Taydxtwsiy2309 [place], [place] [address]Vs. Marcell Coates WBC 10.2 103/ul Normal 4.0-11.0 [facility] Comment on above: Performed By: #### C BC ####[facility] Xfzetgaygb[address] [place] [id number]. Marcell Jaxon CRPon 09-13-2021 CRP 1.0 mg/dL Normal <=1.0 [facility] Comment on above: Performed By: #### L LEENA, LENO, CMP #### [facility] [address] [place], [place] [address] Dr. Marcell Coates [facility]-17 SARS-CoV-2 (COVID-19) RNA RUSSELL+probe Ql (Unsp spec) Not detected Normal NOT DETECTED [facility] Comment on above: Result Comment: When diagnostic [...] for this test is supported by the [place] of Health and Human Service's declaration that [...] By: #### L LENO STERN CMP #### [facility] [address] [place] [address] Dr. Marcell Coates GLYCOHEMOGLOBIN A1Con 2021 ADA RECOMMENDATION SEE BELOW Normal The [facility] Comment on above: Result Comment: ADA RECOMMENDED LIMIT 4.0 - 6.0 ADA THERAPEUTIC TARGET < 7.0 ACTION SUGGESTED > 7.0 Performed By: #### B MP #### [facility] [address] [place] [address] Dr. Marcell Coates Glucose [Mass/Vol] 128 mg/dL Normal [facility] Comment on above: Performed By: #### B MP #### [facility] [address] [place] [address] Dr. Marcell Coates HbA1c (Bld) [Mass fraction] 6.1 % Normal 4.5-6.2 [facility] Comment on above: Performed By: #### B MP #### [facility] [address] [place] [address] Dr. Marcell Coates PROF CHEM 8 (BAS METB)on Anion gap [Moles/Vol] 13.5 mmol/L Normal [facility] Comment on above: Performed By: #### L LENO STERN, CMP #### [facility] [address] [place] [address] Dr. Marcell Coates Calcium [Mass/Vol] 8.6 mg/dL Normal 8.5-10.1 [facility] Comment on above: Performed By: #### L LENO STERN, CMP #### [facility] [address] [address] [address] Marcell Coates Chloride [Moles/Vol] 107 mmol/L Normal 98-107 [facility] Comment on above: Performed By: #### L LENO STERN, CMP #### [facility] [address] [place] [address] Dr. Marcell Coates CO2 [Moles/Vol] 25.5 mmol/L Normal 21.0-32.0 [facility] Comment on above: Performed By: #### L LENO STERN, CMP #### [facility] [address] [place] [address] Dr. Marcell Coates Creatinine [Mass/Vol] 1.25 mg/dL Critically high 0.55-1.02 [facility] Comment on above: Performed By: #### L LENO STERN, CMP #### [facility] [address] [place] [address] Dr. Marcell Coates EGFR-AF FILIPINO 58 mL/min/1.73m2 Critically low >=60 [facility] Comment on above: Performed By: #### L LENO STERN, CMP #### [facility] [address] [place] [address] Dr. Marcell Coates EGFR-NON AF FILIPINO 47 mL/min/1.73m2 Critically low >=60 [facility] Comment on above: Performed By: #### L LENO STERN, CMP #### [facility] [address] [place] [address] Dr. Marcell Coates Glucose [Mass/Vol] 154 mg/dL Critically high 74-106 [facility] Comment on above: Performed By: #### L LENO STERN, CMP #### [facility] [address] [place] [address] Dr. Marcell Coates Potassium [Moles/Vol] 4.0 mmol/L Normal 3.5-5.1 [facility] Comment on above: Performed By: #### L LENO STERN, CMP #### [facility] [address] [place] [address] Dr. Marcell Coates Sodium [Moles/Vol] 142 mmol/L Normal 136-145 [facility] Comment on above: Performed By: #### L LENO STERN, CMP #### [facility] [address] [address] [address] Marcell Coates Urea nitrogen [Mass/Vol] 18.0 mg/dL Normal 7.0-18.0 [facility] Comment on above: Performed By: #### L LENO STERN, CMP #### [facility] [address] [place] [address] Dr. Marcell Coates Urea nitrogen/Creatinine [Mass ratio] 14.4 mg/mg Normal [facility] Comment on above: Performed By: #### L LENO STERN, CMP #### [facility] [address] [place] [address] Dr. Marcell Coates [facility] mm/hr Normal <=20 [facility] Comment on above: Performed By: #### L LENO STERN, CMP #### [facility] [address] [place] [address] Dr. Marcell Coates XR HIP RT 2 [...] by: EDDY MELGOZA Date: 2021-09-13 05:[address] [facility] XR LSPINE 2_3 VIEWSon 2021 XR [...] LIZANDRO PENDLETON Date: 2021-09-13 07:37 Normal [facility] CBC W/DIFFon 08-09-2020 BASOPHILS ABS AUTO [facility] 0.1 x10E3/uL Normal 0.0-0.2 [facility] Comment on above: Performed By: #### L AB293, LAB17 #### [facility] 1 , BASOPHILS RELATIVE AUTO [facility] 1 % Normal Not Estab. [facility] Comment on above: Performed By: #### L AB293, LAB17 #### [facility] 1 , Eosinophils (Bld) [#/Vol] 0.2 10*3/uL Normal 0.0-0.4 [facility] Comment on above: Performed By: #### L AB293, LAB17 #### [facility] 1 , Eosinophils/100 WBC (Bld) 3 % Normal Not Estab. [facility] Comment on above: Performed By: #### L AB293, LAB17 #### [facility] 1 , Erythrocyte distribution width (RBC) [Ratio] 11.9 % Normal 11.7-15.4 [facility] Comment on above: Performed By: #### L AB293, LAB17 #### [facility] 1 , Hematocrit (Bld) [Volume fraction] 43.8 % Normal 34.0-46.6 [facility] Comment on above: Performed By: #### L AB293, LAB17 #### [facility] 1 , HEMOGLOBIN [facility] 14.9 g/dL Normal 11.1-15.9 [facility] Comment on above: Performed By: #### L AB293, LAB17 #### [facility] 1 , IMMATURE GRANS (ABS) 0.0 x10E3/uL Normal 0.0-0.1 [facility] Comment on above: Performed By: #### L AB293, LAB17 #### [facility] 1 , Immature granulocytes/100 WBC (Bld) 0 % Normal Not Estab. [facility] Comment on above: Performed By: #### L AB293, LAB17 #### [facility] 1 , Lymphocytes (Bld) [#/Vol] 2.4 10*3/uL Normal 0.7-3.1 [facility] Comment on above: Performed By: #### L AB293, LAB17 #### [facility] 1 , Lymphocytes/100 WBC (Bld) 26 % Normal Not Estab. [facility] Comment on above: Performed By: #### L AB293, LAB17 #### [facility] 1 , MCH (RBC) [Entitic mass] 31.2 pg Normal 26.6-33.0 [facility] Comment on above: Performed By: #### L AB293, LAB17 #### [facility] 1 , MCHC (RBC) [Mass/Vol] 34.0 g/dL Normal 31.5-35.7 [facility] Comment on above: Performed By: #### L AB293, LAB17 #### [facility] 1 , MCV [facility] 92 fL Normal 79-97 [facility] Comment on above: Performed By: #### L AB293, LAB17 #### [facility] 1 , Monocytes (Bld) [#/Vol] 0.5 10*3/uL Normal 0.1-0.9 [facility] Comment on above: Performed By: #### L AB293, LAB17 #### [facility] 1 , Monocytes/100 WBC (Bld) 6 % Normal Not Estab. [facility] Comment on above: Performed By: #### L AB293, LAB17 #### [facility] 1 , NEUTROPHIL ABS AUTO [facility] 6.1 x10E3/uL Normal 1.4-7.0 [facility] Comment on above: Performed By: #### L AB293, LAB17 #### [facility] 1 , NEUTROPHILS RELATIVE AUTO [facility] 64 % Normal Not Estab. [facility] Comment on above: Performed By: #### L AB293, LAB17 #### [facility] 1 , PLATELET COUNT [facility] 336 x10E3/uL Normal 150-450 [facility] Comment on above: Performed By: #### L AB293, LAB17 #### [facility] 1 , RED BLOOD CELL COUNT [facility] 4.77 x10E6/uL Normal 3.77-5.28 [facility] Comment on above: Performed By: #### L AB293, LAB17 #### [facility] 1 , WBC (Bld) [#/Vol] 9.4 10*3/uL Normal 3.4-10.8 [facility] Comment on above: Performed By: #### L AB293, LAB17 #### [facility] 1 , COMPREHENSIVE METABOLIC PANE Bulmaro 08-09-2020 Albumin [Mass/Vol] 4.8 g/dL Normal 3.8-4.8 [facility] Comment on above: Order Comment: Relea se to patient->Immediate Performed By: #### L [id number], [id number] #### [facility] , Albumin/Globulin [Mass ratio] 1.7 {ratio} Normal 1.2-2.2 [facility] [place] Comment on above: Order Comment: Relea se to patient->Immediate Performed By: #### L [id number], [id number] #### [facility] , ALP [Catalytic activity/Vol] 74 U/L Normal 48-121 [facility] [place] Comment on above: Order Comment: Relea se to patient->Immediate Result Comment: Pl ease note reference interval change Performed By: #### L AB293, LAB17 #### [facility] 1 , ALT [Catalytic activity/Vol] 13 U/L Normal 0-32 [facility] [place] Comment on above: Order Comment: Relea se to patient->Immediate Result Comment: Perf ormed At: 01 [facility] [address] [address] [place], [place] [id number] Aletha Menendez PhD [id number] Performed By: #### L AB293, LAB17 #### [facility] 1 , AST [Catalytic activity/Vol] 17 U/L Normal 0-40 [facility] [place] Comment on above: Order Comment: Relea se to patient->Immediate Performed By: #### L AB293, LAB17 #### [facility] , Bilirubin [Mass/Vol] 0.2 mg/dL Normal 0.0-1.2 [facility] Comment on above: Order Comment: Relea se to patient->Immediate Performed By: #### L AB293, LAB17 #### [facility] , Calcium [Mass/Vol] 9.9 mg/dL Normal 8.7-10.2 [facility] Comment on above: Order Comment: Relea se to patient->Immediate Performed By: #### L AB293, LAB17 #### [facility] , Chloride [Moles/Vol] 102 mmol/L Normal 96-106 [facility] Comment on above: Order Comment: Relea se to patient->Immediate Performed By: #### L AB293, LAB17 #### [facility] 1 , CO2 [Moles/Vol] 22 mmol/L Normal 20-29 [facility] [place] Comment on above: Order Comment: Relea se to patient->Immediate Performed By: #### L AB293, LAB17 #### [facility] , Creatinine [Mass/Vol] 0.85 mg/dL Normal 0.57-1.00 [facility] Comment on above: Order Comment: Relea se to patient->Immediate Performed By: #### L AB293, LAB17 #### [facility] , EGFR IF NONAFRICN AM 82 mL/min/1.73 Normal >59 [facility] [place] Comment on above: Order Comment: Relea se to patient->Immediate Performed By: #### L AB293, LAB17 #### [facility] , GFR/1.73 sq M.predicted among blacks MDRD (S/P/Bld) [Vol rate/Area] 94 mL/min/{1.73_m2} Normal >59 [facility] [place] Comment on above: Order Comment: Relea se to patient->Immediate Result Comment: [facility] currently reports eGFR in compliance with the current recommendations of the National Kidney Foundation. [facility] will update reporting as new guidelines are published from the NKF-ASN Task force. Performed By: #### L AB293, LAB17 #### [facility] , Globulin (S) [Mass/Vol] 2.9 g/dL Normal 1.5-4.5 [facility] [place] Comment on above: Order Comment: Relea se to patient->Immediate Performed By: #### L AB293, LAB17 #### [facility] 1 , Glucose [Mass/Vol] 91 mg/dL Normal 65-99 [facility] Comment on above: Order Comment: Relea se to patient->Immediate Performed By: #### L AB293, LAB17 #### [facility] , Potassium [Moles/Vol] 4.2 mmol/L Normal 3.5-5.2 [facility] Comment on above: Order Comment: Relea se to patient->Immediate Performed By: #### L AB293, LAB17 #### [facility] 1 , Protein [Mass/Vol] 7.7 g/dL Normal 6.0-8.5 [facility] Comment on above: Order Comment: Relea se to patient->Immediate Performed By: #### L AB293, LAB17 #### [facility] , Sodium [Moles/Vol] 139 mmol/L Normal 134-144 [facility] Comment on above: Order Comment: Relea se to patient->Immediate Performed By: #### L AB293, LAB17 #### [facility] , Urea nitrogen [Mass/Vol] 14 mg/dL Normal 6-24 [facility] [place] Comment on above: Order Comment: Relea se to patient->Immediate Performed By: #### L AB293, LAB17 #### [facility] 1 , Urea nitrogen/Creatinine [Mass ratio] 16 mg/mg Normal 9-23 [facility] [place] Comment on above: Order Comment: Relea se to patient->Immediate Performed By: #### L AB293, LAB17 #### [facility] , Vital Signs Date Time Vital Sign Value Performing Clinician Rip siu 01-06-2024 11:03-0400 Body height 157.5 cm Travis Bowser MD Work Phone: [facility] 01-06-2024 11:03-0400 Body mass index (BMI) [Ratio] 38.59 kg/m2 Travis Bowser MD Work Phone: [facility] 01-06-2024 11:03-0400 Body weight 95.71 kg Travis Bowser MD Work Phone: [facility] 01-06-2024 11:03-0400 Diastolic blood pressure 79 mm[Hg] Travis Bowser MD Work Phone: [facility] 01-06-2024 11:03-0400 Heart rate 70 /min Travis Bowser MD Work Phone: [facility] 01-06-2024 11:03-0400 SaO2% (BldA) [Mass fraction] 93 % Travis Bowser MD Work Phone: [facility] 01-06-2024 11:03-0400 Systolic blood pressure 127 mm[Hg] Travis Bowser MD Work Phone: [facility] 12-09-2023 13:25-0400 Diastolic blood pressure 68 mm[Hg] DRUM SANDER OFFBEARER-C Claudine Kastor Work Phone: [facility] 12-09-2023 13:25-0400 Heart rate 66 /min DRUM SANDER OFFBEARER-C Claudine Kastor Work Phone: [facility] 12-09-2023 13:25-0400 Respiratory rate 18 /min DRUM SANDER OFFBEARER-C Claudine Kastor Work Phone: [facility] 12-09-2023 13:25-0400 SaO2% (BldA) [Mass fraction] 100 % DRUM SANDER OFFBEARER-C Claudine Kastor Work Phone: [facility] 12-09-2023 13:25-0400 Systolic blood pressure 128 mm[Hg] DRUM SANDER OFFBEARER-C Claudine Kastor Work Phone: [facility] 12-09-2023 10:51-0400 Body height 157.48 cm DRUM SANDER OFFBEARER-C Claudine Kastor Work Phone: [facility] 12-09-2023 10:51-0400 Body weight 97.52 kg DRUM SANDER OFFBEARER-C Claudine Kastor Work Phone: [facility] 11-06-2023 08:51-0400 Body height 157.48 cm DRUM SANDER OFFBEARER-C Claudine Hernadez Work Phone: [facility] 11-06-2023 08:51-0400 Body weight 97.06 kg DRUM SANDER OFFBEARER-C Claudine Hernadez Work Phone: [facility] Encounters Encounter Date Encounter Type Care Provider Facility Start: 08-30-2024 End: 08-31-2024 Refill Romeo Colon OVERNIGHT HOUSEPERSON-INFECTION CONTROL SPECIALIST Work Phone: [facility] Comment on above: Med Refill Start: 07-14-2024 ambulatory JESSE BECKMAN [facility] Start: 06-30-2024 End: 07-01-2024 Refill Shaniqua Joshua OVERNIGHT HOUSEPERSON-INFECTION CONTROL SPECIALIST Work Phone: [facility] Comment on above: Med Refill Start: 06-10-2024 End: 06-10-2024 ambulatory Kerridilcia Varela [facility] Work Phone: Start: 06-10-2024 End: 06-10-2024 Departed Referred Khushbu Hernandez DO Work Phone: [facility] Start: 06-10-2024 End: 06-11-2024 Clinisync Result Encounter Generic External Data Provider [facility] External Department Unsolicited Start: 06-10-2024 End: 06-11-2024 Clinisync Result Encounter Generic External Data Provider [facility] External Department Unsolicited Start: 04-30-2024 End: 04-30-2024 ambulatory JESSE BECKMAN [facility] Start: 04-01-2024 End: 04-01-2024 ambulatory None Provider Facility:[facility] Start: 03-31-2024 End: 04-01-2024 ambulatory Lesley Lanza OVERNIGHT HOUSEPERSON-INFECTION CONTROL SPECIALIST Facility:[facility] Start: 03-15-2024 End: 03-15-2024 ambulatory Khushbu Hernandez [facility] Work Phone: Start: 03-15-2024 End: 03-15-2024 Departed Referred Khushbu Marker DO Work Phone: [facility] Start: 02-27-2024 End: 02-27-2024 ambulatory None Provider Facility:[facility] Start: 02-27-2024 End: 02-27-2024 ambulatory Murali Waterman MD Facility:[facility] Start: 02-11-2024 End: 02-11-2024 ambulatory None Provider Facility:[facility] Start: 02-05-2024 End: 02-05-2024 ambulatory None Provider Facility:[facility] Start: 02-05-2024 End: 02-05-2024 ambulatory Lesley Lanza OVERNIGHT HOUSEPERSON-INFECTION CONTROL SPECIALIST Facility:[facility] Start: 01-30-2024 End: 02-03-2024 Refill Romeo Colon OVERNIGHT HOUSEPERSON-INFECTION CONTROL SPECIALIST Work Phone: [facility] Comment on above: Med Refill Start: 01-30-2024 End: 01-30-2024 ambulatory None Provider Facility: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) Start: 01-05-2024 End: 01-09-2024 ambulatory None Provider Facility:[facility] Start: 01-02-2024 End: 01-02-2024 Telephone encounter Michelle Goodwin MA [facility] Start: 01-01-2024 End: 01-07-2024 Refill Josi Ba MD Work Phone: [facility] Comment on above: Med Refill Start: 12-26-2023 End: 12-26-2023 Telephone encounter Mary Vance CMA [facility] Start: 12-22-2023 Registered Recurring DRUM SANDER OFFBEARER-C Claudinerod Godfreyjose Work Phone: [facility] Start: 12-22-2023 ambulatory Fletcher Rhodes acility:[facility] Start: 12-17-2023 Non-patient / Non-visit DRUM SANDER OFFBEARER-C Claudine Hernadez Work Phone: [facility] Work Phone: Start: 12-12-2023 End: 12-12-2023 ambulatory None Provider Facility:[facility] Start: 12-12-2023 End: 12-12-2023 ambulatory Murali Waterman MD Facility:[facility] Start: 12-09-2023 Non-patient / Non-visit DRUM SANDER OFFBEARER-C Claudinerod Godfreyjose Work Phone: [facility] Work Phone: Start: 12-09-2023 End: 12-09-2023 Admission to same day surgery center DRUM SANDER OFFBEARER-C Claudine Godfreyjose Work Phone: [facility] Work Phone: Start: 12-09-2023 End: 12-09-2023 ambulatory DRUM SANDER OFFBEARER-C Claudine Isabell Epifaniojose Work Phone: [facility] Work Phone: Start: 12-04-2023 End: 12-05-2023 Refill Zara Bazan APRN-INFECTION CONTROL SPECIALIST Work Phone: [facility] Start: 11-27-2023 End: 11-27-2023 ambulatory None Provider Facility:[facility] Start: 11-27-2023 End: 11-27-2023 ambulatory Lesley Yulikrissy Lanza OVERNIGHT HOUSEPERSON-INFECTION CONTROL SPECIALIST Facility:[facility] Start: 11-06-2023 End: 11-06-2023 ambulatory DRUM SANDER OFFBEARER-C Claudine Hernadez Work Phone: [facility] Work Phone: Start: 11-06-2023 End: 11-06-2023 Departed Referred DRUM SANDER OFFBEARER-C Claudine Hernadez Work Phone: [facility] Work Phone: Start: 11-03-2023 End: 11-05-2023 Refill Aubrey Sanchez OVERNIGHT HOUSEPERSON-INFECTION CONTROL SPECIALIST Work Phone: [facility] Comment on above: Med Refill Start: 10-09-2023 End: 10-10-2023 Refill Germania Hameed RN [facility] Comment on above: Med Refill Start: 09-29-2023 Non-patient / Non-visit DRUM SANDER OFFBEARER-Coleen Hernadez Work Phone: [facility] Work Phone: Start: 09-01-2023 End: 09-01-2023 ambulatory None Provider Facility:[facility] Start: 08-15-2023 End: 08-18-2023 Refill Janell Rivera OVERNIGHT HOUSEPERSON-INFECTION CONTROL SPECIALIST Work Phone: [facility] Comment on above: Med Refill Start: 07-24-2023 End: 07-25-2023 Emergency department patient visit None Provider Facility:[facility] Start: 07-21-2023 End: 07-21-2023 Emergency department patient visit None Provider Facility:[facility] Start: 07-07-2023 End: 07-07-2023 ambulatory [facility] Start: 06-16-2023 End: 06-16-2023 ambulatory Kendrick Aguilar MD [facility]: [facility] Start: 05-26-2023 End: 05-27-2023 ambulatory JAMAR CARUSO [facility] Start: 05-16-2023 End: 06-16-2023 ambulatory JAMAR CARUSO [facility] Start: 05-14-2023 End: 05-15-2023 ambulatory JOSI BA [facility] Start: 05-08-2023 End: 05-09-2023 ambulatory TYRON WAGNER [facility] Start: 05-07-2023 Refill Josi Ba MD Work Phone: [facility] Start: 05-01-2023 End: 05-16-2023 ambulatory JAMAR CARUSO [facility] Comment on above: Encounter for screen ing mammogram for malignant neoplasm of breast (Primary Dx) Start: 04-03-2023 Refill Hiro Kaba RN [facility] Start: 03-07-2023 Refill Aubrey Velazquez sser OVERNIGHT HOUSEPERSON-INFECTION CONTROL SPECIALIST Work Phone: [facility] Comment on above: Med Refill Start: 03-06-2023 Refill Josi Ba MD Work Phone: [facility] Comment on above: Primary hypertension ; Combined systolic and diastolic congestive heart failure, unspecified HF chronicity (CMS-HCC); Acute combined systolic and diastolic congestive heart failure (CMS-HCC); Cardiomegaly Start: 07-29-2022 End: 07-29-[address] KHUSHBU HERNANDEZ . Facility:[facility] Start: 07-15-2022 End: 07-15-2022 ambulatory ROBERT DIAS Facility:[facility] Start: 07-10-2022 ambulatory EDILSON~[id number] PIERSON PIERSON [facility] Start: 06-18-2022 End: 06-19-[address] KHUSHBU HERNANDEZ . Facility:[facility] Start: 06-14-2022 ambulatory EDILSON~[id number] PIERSON PIERSON [facility] Start: 06-14-2022 End: 06-14-[address] KHUSHBU HERNANDEZ . Facility:[facility] Start: 06-09-2022 End: 06-09-2022 ambulatory PENNY MASON . Facility:[facility] Start: 05-14-2022 ambulatory EDILSON~[id number] KENNA WAGGONER [facility] Start: 05-11-2022 End: 05-11-[address] ISACC SABA Facility:[facility] Start: 04-22-2022 End: 04-22-[address] YOLIS ARDON . Facility:[facility] Start: 04-03-2022 End: 04-03-2022 ambulatory ROBERT DIAS Facility:[facility] Start: 01-22-2022 End: 01-22-2022 ambulatory ALVA DIETZ Facility:[facility] Start: 12-22-2021 End: 12-22-2021 ambulatory ALVA MIRELA Facility:[facility] Start: 11-06-2021 End: 11-07-2021 ambulatory ALVAOlivia DIETZ Facility:[facility] Start: 09-13-2021 End: 09-14-2021 ambulatory ALVAOlivia DIETZ Facility:[facility] Procedures Date Procedure Procedure Detail Performing Clinician Start: 06-10-2024 [facility] [place] [facility] External Data Provider Start: 03-15-2024 Streptococcus pyogen es culture Khushbu Marker DO Work Phone: Start: 01-06-2024 Follow-up visit Follow-up BOLIVAR BOWSER Start: 12-09-2023 Screening colonoscopy N P-C Claudine Hernadez Work Phone: Start: 05-14-2023 Mammography Janell Rivera OVERNIGHT HOUSEPERSON-INFECTION CONTROL SPECIALIST Work Phone: Start: 09-14-2022 Adult depression scr eening assessment Aubrey Sanchez OVERNIGHT HOUSEPERSON-INFECTION CONTROL SPECIALIST Work Phone: Start: 05-09-2022 Mammography Aubrey byers OVERNIGHT HOUSEPERSON-INFECTION CONTROL SPECIALIST Work Phone: Plan of Treatment Date Care Activity Detail Author Start: 05-14-2025 Screening for malign ant neoplasm of breast Mammogram [facility] Start: 01-05-2025 Adult BMI Screening Adult BMI Screen ing [facility] Start: 11-15-2024 Influenza vaccination Influenza Vacc ine [facility] Start: 06-10-2024 Urine culture [facility] Start: 03-27-2025 Bacteria identified in Urine by Culture Urine Culture [facility] Start: 05-14-2024 Adult BMI Screening Adult BMI Screen ing [facility] Start: 05-09-2024 Screening for malign ant neoplasm of breast Mammogram [facility] Start: 03-15-2024 Group A Streptococcu s Culture Group A Streptococcus Culture [facility] Start: 02-02-2024 Tobacco Counseling Tobacco Counselin g [facility] Start: 01-06-2024 End: 01-05-2025 Echo complete W/O contrast Echo complete W/O contrast Echocardiography Routine Primary hypertension Left ventricular failure (CMS-HCC) 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) Shortness of breath Expected: 01/06/2024, Expires: 01/05/2025 [facility] Work Phone: Comment on above: Expected: 01/06/2024 , Expires: 01/05/2025 Start: 01-06-2024 End: 01-05-2025 NM Heart Perfusion W stress and W radionuclide IV Nuc stress [facility] Routine Primary hypertension Left ventricular failure (CMS-HCC) 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) Shortness of breath Expected: 01/06/2024, Expires: 01/05/2025 [facility] Comment on above: Expected: 01/06/2024 , Expires: 01/05/2025 Start: 01-06-2024 End: 01-06-2024 Patient encounter procedure 01/06/2024 11:00 AM EDT Office Visit [facility] [address] [place] [phone] Travis Bowser MD [address] [place] [address] [facility] Start: 12-09-2023 [facility] Start: 11-29-2023 Adult BMI Screening Adult BMI Screen ing [facility] Start: 11-29-2023 Tobacco Screening Tobacco Screening [facility] Start: 11-16-2023 COVID-19 Vaccine ( season) COVID-19 Vaccine () [facility] Start: 11-16-2023 COVID-19 Vaccine ( season) COVID-19 Vaccine ( season) [facility] Start: 11-16-2023 Influenza vaccination Influenza Vacc ine [facility] Start: 09-15-2023 Depression Screening Depression Scre ening [facility] Start: 06-16-2023 End: 06-16-2023 Patient encounter procedure 06/16/2023 3:00 PM EDT Office Visit [facility] [address] [place] [address] [place] [phone] Anusha Roberto MD [address] [facility] [address] [place] [address] [facility] Start: 05-26-2023 Administration of varicella zoster vaccine Zoster (Shingles) Vaccine (1 of 2) [facility] Start: 05-14-2023 End: 05-14-2023 Patient encounter procedure 05/14/2023 3:15 PM EST Appointment [facility] - Mammogram DEXA [address] [place] [phone] [facility] Start: 05-12-2023 End: 05-12-2023 Patient encounter procedure 05/12/2023 2:45 PM EST Appointment [facility] [address] [place] [phone] Arrived [facility] Comment on above: Arrived Start: 05-08-2023 Subsequent hospital visit by physician [facility] Start: 05-01-2023 End: 05-01-2024 DBT Breast - bilateral screening Mammography screening bilateral with CAD Imaging Routine Encounter for screening mammogram for malignant neoplasm of breast Expected: 05/01/2023, Expires: 05/01/2024 [facility] Work Phone: Comment on above: Expected: 05/01/2023 , Expires: 05/01/2024 Start: 03-31-2023 End: 03-31-2023 Patient encounter procedure 03/31/2023 11:00 AM EST [facility] [address] [place] [address] [place] [phone] Tyron [place], [place] [address] [place] [address] [facility] Start: 03-24-2023 End: 03-24-2023 Patient encounter procedure [facility] Start: 11-15-2022 COVID-19 Vaccine ( season) COVID-19 Vaccine ( season) [facility] Start: 11-15-2022 Influenza vaccination Influenza Vacc ine [facility] Start: 05-26-1991 Adult BMI Follow Up Plan Adult BMI F ollow Up Plan [facility] Start: 1984 DTaP,Tdap and Td Vaccines (5 - Tdap) DTaP,Tdap and Td Vaccines (5 - Tdap) [facility] End: 10-08-2024 CBC panel - Blood by Automated count CBC Lab Routine 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 Occurrences starting 10/10/2023 until 10/08/2024 [employer] Work Phone: Comment on above: 1 Occurrences starti ng 10/10/2023 until 10/08/2024 End: 10-08-2024 Comprehensive metabolic 2000 panel - Serum or Plasma Comprehensive metabolic panel Lab Routine 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 Occurrences starting 10/10/2023 until 10/08/2024 [facility] Comment on above: 1 Occurrences starti ng 10/10/2023 until 10/08/2024 End: 10-08-2024 Lipid panel Lipid panel Lab Routine 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 Occurrences starting 10/10/2023 until 10/08/2024 [facility] Comment on above: 1 Occurrences starti ng 10/10/2023 until 10/08/2024 End: 10-08-2024 Magnesium [Mass/volume] in Serum or Plasma Magnesium Lab Routine 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 Occurrences starting 10/10/2023 until 10/08/2024 [facility] Comment on above: 1 Occurrences starti ng 10/10/2023 until 10/08/2024 Patient Education Colon Polypect eduardo (DC) Know your Meds [facility] Work Phone: [facility] [place] [facility] [place]ULTU RE [place] [facility] Lab Routine 06/10/2024 3:22 PM EDT [facility] Immunizations Immunization Date Immunization Notes Care Provider Sabrina richey 05-15-2021 influenza, seasonal, injectable Mischell Laura OVERNIGHT HOUSEPERSON-INFECTION CONTROL SPECIALIST Work Phone: [facility] 05-15-2021 influenza virus vaccine, unspecified formulation Mischell Laura OVERNIGHT HOUSEPERSON-INFECTION CONTROL SPECIALIST Work Phone: [facility] 01-02-2021 Influenza, injectabl e, Madin Greene Canine Kidney, quadrivalent with preservative Mischell Laura OVERNIGHT HOUSEPERSON-INFECTION CONTROL SPECIALIST Work Phone: [facility] 11-14-2020 COVID-19, mRNA, LNP- S, PF, 30mcg/0.3mL Dose Mischell Laura OVERNIGHT HOUSEPERSON-INFECTION CONTROL SPECIALIST Work Phone: [facility] 11-26-2018 influenza, injectabl e, quadrivalent, preservative free Mischell Laura OVERNIGHT HOUSEPERSON-INFECTION CONTROL SPECIALIST Work Phone: [facility] 12-03-2007 hepatitis B vaccine, adult dosage Mischell Laura OVERNIGHT HOUSEPERSON-INFECTION CONTROL SPECIALIST Work Phone: [facility] 08-27-2007 hepatitis B vaccine, adult dosage Mischell Laura OVERNIGHT HOUSEPERSON-INFECTION CONTROL SPECIALIST Work Phone: [facility] 07-27-2007 hepatitis B vaccine, adult dosage Mischell Laura OVERNIGHT HOUSEPERSON-INFECTION CONTROL SPECIALIST Work Phone: [facility] 04-16-1982 measles, mumps and rubella virus vaccine Mischell Laura OVERNIGHT HOUSEPERSON-INFECTION CONTROL SPECIALIST Work Phone: [facility] 10-31-1978 diphtheria, tetanus toxoids and pertussis vaccine Mischell Laura OVERNIGHT HOUSEPERSON-INFECTION CONTROL SPECIALIST Work Phone: [facility] 10-31-1978 poliovirus vaccine, unspecified formulation Mischell Laura OVERNIGHT HOUSEPERSON-INFECTION CONTROL SPECIALIST Work Phone: [facility] 12-01-1976 poliovirus vaccine, unspecified formulation Mischell Laura OVERNIGHT HOUSEPERSON-INFECTION CONTROL SPECIALIST Work Phone: [facility] 07-05-1975 diphtheria, tetanus toxoids and pertussis vaccine Mischell Laura OVERNIGHT HOUSEPERSON-INFECTION CONTROL SPECIALIST Work Phone: [facility] 07-05-1975 poliovirus vaccine, unspecified formulation Mischell Laura OVERNIGHT HOUSEPERSON-INFECTION CONTROL SPECIALIST Work Phone: [facility] 09-29-1974 diphtheria, tetanus toxoids and pertussis vaccine Mischell Laura OVERNIGHT HOUSEPERSON-INFECTION CONTROL SPECIALIST Work Phone: [facility] 09-29-1974 measles, mumps and rubella virus vaccine Mischell Laura OVERNIGHT HOUSEPERSON-INFECTION CONTROL SPECIALIST Work Phone: [facility] 09-29-1974 poliovirus vaccine, unspecified formulation Mischell Laura OVERNIGHT HOUSEPERSON-INFECTION CONTROL SPECIALIST Work Phone: [facility] 08-03-1974 diphtheria, tetanus toxoids and pertussis vaccine Mischell Laura OVERNIGHT HOUSEPERSON-INFECTION CONTROL SPECIALIST Work Phone: [facility] 08-03-1974 poliovirus vaccine, unspecified formulation Mischell Laura OVERNIGHT HOUSEPERSON-INFECTION CONTROL SPECIALIST Work Phone: [facility] Payers Date Payer Category Payer Self-pay 2023 Unknown 2022 Medicaid [id number] 2022 Medicaid [id number] 1975 Unknown [id number] 2.16.84 0.1.208568.3.579.2.593 1975 Unknown [id number] 2.16.84 0.1.197885.3.579.2.593 1973 Unknown [id number] 2.16.84 0.1.442295.3.579.2.593 1973 Unknown [id number] 2.16.84 0.1.882722.3.579.2.593 1973 Unknown [id number] 2.16.84 0.1.657108.3.579.2.593 1973 Unknown [id number] 2.16.84 0.1.064546.3.579.2.593 1973 Unknown [id number] 2.16.84 0.1.721068.3.579.2.593 1973 Unknown [id number] 2.16.84 0.1.422235.3.579.2.593 1973 Unknown [id number] 2.16.84 0.1.387629.3.579.2.593 1973 Unknown [id number] 2.16.84 0.1.508008.3.579.2.593 1973 Unknown [id number] 2.16.84 0.1.124146.3.579.2.593 1973 Unknown [id number] 2.16.84 0.1.780073.3.579.2.593 1973 Unknown [id number] 2.16.8 40.1.043385.3.579.2.1286 1973 Unknown [id number] 2.16.8 40.1.905798.3.579.2.1286 1973 Unknown [id number] 2.16.8 40.1.710605.3.579.2.1286 1973 Unknown [id number] 2.16.8 40.1.912997.3.579.2.6 1973 Unknown [id number] 2.16.8 40.1.589689.3.579.2.6 1973 Unknown [id number] 2.16.8 40.1.924748.3.579.2.1286 1973 Unknown [id number] 2.16.8 40.1.799119.3.579.2.6 1973 Unknown [id number] 2.16. 840.1.030368.3.579.2. 1973 Unknown [id number] 2.16. 840.1.782534.3.579.2. 1973 Unknown [id number] 2.16. 840.1.977817.3.579.2.196 1973 Unknown [id number] 2.16. 840.1.324027.3.579.2.196 1973 Unknown [id number] 2.16. 840.1.399249.3.579.2.196 1973 Unknown [id number] 2.16. 840.1.382170.3.579.2.196 1973 Unknown [id number] 2.16. 840.1.422466.3.579.2.196 1973 Unknown [id number] 2.16. 840.1.533598.3.579.2.196 1973 Unknown [id number] 2.16.8 40.1.127753.3.579.2.8 1973 Unknown [id number] 2.16.8 40.1.869467.3.579.2.718 1973 Unknown [id number] 2.16.8 40.1.464174.3.579.2.8 1973 Unknown [id number] 2.16.8 40.1.667265.3.579.2.8 1973 Unknown [id number] 2.16.8 40.1.714393.3.579.2. 1973 Unknown [id number] 2.16.8 40.1.770208.3.579.2. 1973 Unknown [id number] 2.16.8 40.1.608078.3.579.2. 1973 Unknown [id number] 2.16.8 40.1.987877.3.579.2. 1973 Unknown [id number] 2.16.8 40.1.264507.3.579.2. 1973 Unknown [id number] 2.16.8 40.1.215254.3.579.2. 1973 Unknown [id number] 2.16.8 40.1.145356.3.579.2. 1973 Unknown [id number] 2.16.8 40.1.861155.3.579.2.718 1959 Unknown [id number] Private Health Insurance [id number] Unknown [id number] 2.16.8 40.1.528212.3.579.2.531 Unknown [id number] 2.16.8 40.1.815477.3.579.2.531 Unknown [id number] 2.16.8 40.1.806700.3.579.2.531 Unknown [id number] 2.16.8 40.1.031165.3.579.2.531 Unknown [id number] 2.16.8 40.1.564349.3.579.2.531 Social History Date Type Detail Facility Start: 12-09-2023 End: 12-09-2023 Tobacco smoking status KYIS Smoker (finding) [facility] Start: 1975 Sex Assigned At Female [facility] Start: 03-17-2024 Sex Patient sex unknown (finding) [facility] Start: 08-22-2022 Tobacco smoking status NHIS Smokes tobacco daily [facility] History of tobacco use Cigarette Smoker P [facility] Start: 08-22-2022 End: 01-06-2024 Cigarettes smoked current (pack per day) - Reported 0.5 [facility] Start: 08-22-2022 Tobacco use and exposure Smokeless tobacco non-user [facility] Start: 11-28-2022 End: 05-14-2023 Alcohol intake Lifetime non-drinker (finding) [facility] Start: 09-14-2022 End: 01-06-2024 Alcohol Use Disorder Identification Test - Consumption [AUDIT-C] [facility] How often to you hav e a drink containing alcohol? Never [facility] How many standard dr inks containing alcohol do you have on a typical day? Patient does not drink [facility] Start: 1975 Sex Assigned At Not on file [facility] Start: 10-20-2014 End: 06-12-2024 Sex Female (finding) [facility] Tobacco smoking stat us NHIS Tobacco smoking consumption unknown [facility] Goals Date Patient Goal Desired Activity /State Personal health goal Comment on above: Formatting of this n ote might be different from the original. Evaluation of progress towards goal: safe transition from PMH to H Clinical Notes 08-09-2020 to 07-14-2024 Telephone Encounter - Minnie Cotton RN - 06/30/2024 7:46 PM EDTTelephone Encounter - Minnie Cotton RN - 06/30/2024 7:46 PM Makenna Bowser MD - 01/06/2024 11:00 AM EDT Note Date & Type Note Facility 07-14-2024 Note In person visit Chief complaint: back pain SELDOVIA: 49 y/o woman - here with her She is here today with Lizandro Peoples - he is to this lady now He says that his prior left him int fci to She says that her back is hurting her 49 y/o right handed She is on disability She didn't work before She is disabled due to her knees - she had knee repalcements on both sides - one side (R) was done twice She feels like her back has been an issue for her for a couple years - No clear starting event The pain is in the back = then down monse the buttocks The pain over the spine is in the middle of the spine She doesn't know how to explain it She has some pain down into the legs - she says it varies with which side It is hard for her to sleep due tot eh apin She si tossing and turning at night due tot he pain - it makes it hard for both of them to sleep She thinks the pain is bad most of the time She has to use the cart at the grocery store If she can sit miguelangel position taht is comfotable then she can do sort of OK She has not had any prior surgery on her back She had an ablation on her back - at [facility] She thinks that was back around March or so (she maybe went home around [place]) - so maybe Jan or Feb Her says that when they did it that it didn't seem to help her - it seemed to make things worse Aroudn the same time they took her off lyrica Then she started seeing a new DRUM SANDER OFFBEARER for her primary care She says that she had to go off the lyrica just to be seen She said that she hurt so much one night that tshe had to go to the ER - They put her on a musclerelaxer - but nothing is really helping The amitriptyline is new for her ROS: Pain in the lower back and down into the buttocks Cchronic Not having as much pain higher up Had bilateral knee replacements No past medical history on file. Past Surgical History: Procedure Laterality Date ANKLE SURGERY Left KNEE SURGERY Bilateral SHOULDER SURGERY Bilateral rotator Current Outpatient Medications on File Prior to Visit Medication Sig Dispense Refill amitriptyline (Elavil) 25 mg tablet Take 25 mg by mouth at bedtime. aspirin 81 mg EC tablet Take 1 tablet by mouth in the morning. bumetanide (Bumex) 0.5 mg tablet Take 1 tablet by mouth in the morning. cholecalciferol, vitamin D3, 50 mcg (2,000 unit) capsule isosorbide mononitrate ER (Imdur) 30 mg 24 hr tablet Take 30 mg by mouth in the morning. Jardiance 10 mg take 1 tablet by mouth once daily in the morning losartan (Cozaar) 25 mg tablet take 1 tablet by mouth once daily in the morning metoprolol succinate XL (Toprol-XL) 100 mg 24 hr tablet take 1 tablet by mouth once daily for 30 days fx-db-irnb-FA-Ca carb-vit K (Women's Multivitamin) 18 mg-400 mcg- 500 mg-50 mcg tablet Take 1 tablet by mouth in the morning. omeprazole (PriLOSEC) [address] capsule 40 mg. ondansetron (Zofran) 4 mg tablet take 1 tablet by mouth every 6 hours if needed for nausea or vomiting promethazine (Phenergan) 12.5 mg tablet Take 12.5 mg by mouth every 6 (six) hours if needed. rosuvastatin (Crestor) 10 mg tablet TAKE TWO (2) TABLETS BY MOUTH EACH MORNING spironolactone (Aldactone) 25 mg tablet 25 mg. No current facility-administered medications on file prior to visit. Allergies Allergen Reactions Cephalexin Hallucinations and Itching Codeine Anaphylaxis Exam; BP 130/89 (BP Location: Left wrist, Patient Position: Sitting, BP Cuff Size: Adult) Pulse 67 Ht 1.575 m (5' 2 ) Wt 96.2 kg (212 lb) SpO2 98% BMI 38.78 kg/m??? Age appropriate yes family present - her - Lizandro Castellanos NC/AT Well developed, well nourished Mood/affect normal Awake, alert, oriented CN intact Speech intact Cognition intact No clear focal motor deficit - B UE and LE Sensory intact to LT throughout - arms and legs Ambulatory - but antalgic due to her pain Station intact Coordination intact Reflexes: - deferred Review of films; I personally reviewed and interpreted her imaging studies while she was in clinic today She has lumbar spondyloiss She does not seem to have any true high grade stenosis She may have a left pars defect - this is not really clear to me There is not a clearly significant spondylolistehsis at this point Radiology report: L4-L5:Diffuse disc bulge, marginal disc osteophyte extends [...] facet arthropathy. Paraspinal soft tissues grossly within norm (more content not included)... [facility] 06-30-2024 Miscellaneous Notes Ov-01/06/24 Lipid-09/24/23 documented in this encounter [facility] 06-30-2024 Telephone encounter Note Ov-01/06/24 Lipid-09/24/23 [facility] 03-01-2024 Note [id number] [facility] 02-27-2024 Note [facility] SURGERY Clinical Discharge Summary PERSON INFORMATION Name CHINMAY KNIGHT Age 48 Years 1975 Sex FEMALE Language [place] PCP Provider, None Marital Status Other Med Service Pain Management Surgery Acct# Arrival 02/27/2024 06:37:50 Visit Reason LUMBAR PAIN Acuity LOS 007 17:50 Address: [address] [address] Comment: PROVIDER INFORMATION VITALS INFORMATION Vital Sign [...] every day. pregabalin (more content not included)... [facility] 02-26-2024 Note [id number] The patient?s history of present illness, physical findings and plan of care have been reviewed. There are no changes. [Electronically Signed on: 02/27/2024 07:33 EST] MURALI WATERMAN MD [Electronically Signed on: 02/27/2024 07:26 EST] Renee Dean MA [Verified on: 02/27/2024 07:33 EST] MURALI WATERMAN MD [Transcribed on: 02/26/2024 12:31 EST] [facility] 02-02-2024 Note [id number] [facility] 01-30-2024 Note [facility] SURGERY Clinical Discharge Summary PERSON INFORMATION Name CHINMAY KNIGHT Age 48 Years 1975 Sex FEMALE Language [place] PCP Provider, None Marital Status Other Med Service Pain Management Surgery Acct# Arrival 01/30/2024 09:04:47 Visit Reason LUMBAR PAIN Acuity LOS 003 19:01 Address: [address] [address] Comment: PROVIDER INFORMATION VITALS INFORMATION Vital Sign [...] tablet) 1 tab( (more content not included)... [facility] 01-06-2024 History of Present illness Narrative Chinmay Barrientos Eugene Date of visit: 01/06/2024 Date of : 1975 Age: 48 y.o. Patient Active Problem List Diagnosis Knee pain, chronic Degenerative arthritis of left knee Hypertension Morbid [place] Osteoarthritis Depression GERD (gastroesophageal reflux disease) ABBEY (obstructive sleep apnea) Respiratory failure with hypercapnia [place] Combined systolic and diastolic congestive heart failure [place] Left ventricular failure [place] Right arm pain ASCVD (arteriosclerotic cardiovascular disease) Dyslipidemia Acute on chronic HFrEF (heart failure with reduced ejection fraction) [place] Radial artery thrombosis [place] Elevated serum creatinine Hypokalemia CHF (congestive heart failure) [place] Occlusion of right radial artery [place] Shortness of breath Allergies Allergen Reactions Codeine [...] Knight was seen in follow-up in the [facility] office. Records are reviewed. She is a 48-year-old obese woman with diabetes, modest essential hypertension, nonischemic cardiomyopathy, small-vessel obstructive coronary artery disease. She initially presented in August of 2022 with worsening breathlessness pedal edema and chest pain. Echocardiogram revealed ejection fraction on the order of 25-30% with ldai-la-fszvnnkb tricuspid regurgitation and estimates of elevation right-sided pressures. She was transferred to [facility] underwent cardiac catheterization ultimately through [...] Diagnosis Date Arthritis CHF (congestive heart failure) ([facility]) Diabetes mellitus type 2, controlled [place] GERD (gastroesophageal reflux disease) Hypertension Obesity Shortness [...] APRN-LANRE Referring Physician: Josi Ba MD [address] [place] [address] documented in this encounter [facility] 01-02-2024 Miscellaneous Notes Called patient to remind them to bring their most current copy of their medication list with them to their appt. Patient verbalizes understanding. documented in this encounter [facility] 01-02-2024 Telephone encounter Note Called patient to remind them to bring their most current copy of their medication list with them to their appt. Patient verbalizes understanding. [facility] 01-01-2024 Miscellaneous Notes Discontinued at visit with FRS on 01/05 documented in this encounter [facility] 01-01-2024 Telephone encounter Note Discontinued at visit with FRS on 01/05 [facility] 12-26-2023 Miscellaneous Notes PHONED PT TO SCHEDULE APPT PER [facility], MISAEL ON VM TO CALL OFFICE TO SCHEDULE APPT. documented in this encounter [facility] 12-26-2023 Telephone encounter Note PHONED PT TO SCHEDULE APPT PER [facility], MISAEL ON VM TO CALL OFFICE TO SCHEDULE APPT. [facility] 12-22-2023 Note Patient called [facility] her relief obtained after the procedure performed on 12/12/2023. Patient states she felt greater than 80% relief for two hours after the procedure. [Electronically Signed on: 12/22/2023 15:12 EDT] SolorzanoAgatha conti [Verified on: 12/22/2023 15:12 EDT] Agatha Solorzano [facility] 12-15-2023 Note [id number] [facility] 12-12-2023 Note [facility] SURGERY Clinical Discharge Summary PERSON INFORMATION Name CHINMAY KNIGHT Age 48 Years 1975 Sex FEMALE Language [place] PCP Provider, None Marital Status Other Med Service Pain Management Surgery Acct# Arrival 12/12/2023 11:37:50 Visit Reason LUMBAR PAIN Acuity LOS 002 02:44 Address: [address] [facility] [address] Comment: PROVIDER INFORMATION VITALS INFORMATION Vital Sign [...] Dose 81 m (more content not included)... [facility] 12-11-2023 Note [id number] The history of present illness has been reviewed. There are no changes document. [Electronically Signed on: 12/12/2023 11:54 EDT] MURALI WATERMAN MD [Verified on: 12/12/2023 11:54 EDT] MURALI WATERMAN MD [Transcribed on: 12/11/2023 13:21 EDT] [facility] 12-09-2023 Procedure note [facility] 11-03-2023 Miscellaneous Notes Please sign and route. Thank you CAITLIN 11/28/22 - Letter mailed documented in this encounter [facility] 11-03-2023 Telephone encounter Note Please sign and route. Thank you CAITLIN 11/28/22 - Letter mailed [facility] 10-09-2023 Miscellaneous Notes Received call from [facility] unsure how a refill was sent with [facility] context, she is a patient of [facility]. OV 11/28/22 CBC and CMP 09/15/22 Labs pended, message sent ot patient in mychart Lab work needs diagnosis. Thanks. 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 OV 11/28/22 CBC and CMP 09/15/22 Labs pended, message sent ot patient in mychart [facility] 10-09-2023 Telephone encounter Note Lab work needs diagnosis. [facility]. 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 Medicines may be gjeb-hpz-xvmnyli or prescription. You may be told to use one or more of the following: ? Medicine that is taken by mouth (orally). ? Medicine that is applied as a cream (topically). ? Medicine that is inserted directly into the vagina (suppository). Follow these instructions at home: ? Take or apply qjij-lhe-mkxlwut and prescription medicines only as told by [...] is treated with medicine. Medicines may be xagq-ghj-pjabypq or prescription. ? Take or apply dpxn-uhn-kbyzdyh and prescription medicines only as told by [...] provider. Document Revised: 05/21/2021 Document Reviewed: 05/21/2021 [employer] Patient Education ? 2022 [employer]. [facility] 08-15-2023 Miscellaneous Notes pcp name on rx. Sending to pcp office for refill. documented in this encounter [facility] 08-15-2023 Telephone encounter Note pcp name on rx. Sending to pcp office for refill. [facility] 07-25-2023 Note Education Materials Endocrinology Diabetes [...] Carrots. Green beans. Tomatoes. Peppers. Onions. Cucumbers. [place] sprouts. Grains Whole grains, such as whole-wheat or whole-grain bread, crackers, tortillas, cereal, and pasta. (more content not included)... [facility] 07-21-2023 Note Education Materials Orthopedics Foot [...] on your foot. General instructions ? Take sohx-bwd-dvgihzy and prescription medicines only as told by your health care provider. ? When you can walk without pain, w (more content not included)... [facility] 04-03-2023 Miscellaneous Notes Images from the original note were not included. documented in this encounter [facility] 04-03-2023 Telephone encounter Note Images from the original note were not included. [facility] [employer] [facility] 08-09-2020 Note Encounter Department : [facility] Progress Notes by Landy Bose APRN-LANRE at 08/09/2020 3:00 PM Author: REMBERTO McclellanService: -Author Type: Nurse Practitioner Filed: 08/09/2020 4:11 PMEncounter Date: 08/09/2020tatus: Signed Pharmacy Consultant: REMBERTO Mcclellan (Nurse Practitioner) Chinmay Knight [address] [place] [address] : 45 y.o.: 1975Phone: (home) Encounter Date: 08/09/2020 Assessment Assessment and Plan: ICD-10-CM 1.Essential hypertension [id number] tartrate 37.5 mg Tab CBC W/DIFF Comprehensive Metabolic Panel Diagnoses and all orders for this visit: Essential hypertension (Primary) (Chronic) - metoprolol tartrate 37.5 mg Tab Dispense: 30 tablet; Refill: 6 - CBC W/DIFF - Comprehensive Metabolic Panel Will increase patient metoprolol to 37.5mg and have patient call in 2 week with an update. Will draw some labs in the office today. [facility] Evaluation as of 08/09/2020: -Determined Barrier: [...] at visit Current Outpatient Medications Ordered in [facility] MedicationSigDispenseRefill -hydroCHLOROthiazide (HYDRODIURIL) 25 mg tabletTake 25 mg by mouth 2 times a day. -lisinopriL (ZESTRIL) 40 mg tabletTake 40 mg by mouth daily. -metoprolol tartrate 37.5 mg TabTake 37.5 mg by mouth 2 times a day.30 tablet6 -topiramate (TOPAMAX) 25 mg tabletTake 50 mg by mouth daily. No current [facility]-ordered facility-administered medications on file. No Known [...] necessary. Electronically Signed by: Landy SR 08/09/2020 [facility] 08-09-2020 Note Encounter Department : [facility] PHYS[facility] Progress Notes by REMBERTO Mcclellan at 08/09/2020 3:00 PM Author: REMBERTO McclellanService: -Author Type: Nurse Practitioner Filed: 08/10/2020 9:48 AMEncounter Date: 08/09/2020tatus: Signed Pharmacy Consultant: REMBERTO Mcclellan (Nurse Practitioner) Please inform patient that her labs are all normal. Please inform her that her kidney function is back to normal [facility] 08-09-2020 Note Encounter Department : [facility] Progress Notes by Maci Holden CMA at 08/09/2020 3:00 PM Author: Maci Holden CMAService: -Author Type: Wash Oil Pump Operator Filed: 08/10/2020 12:44 PMEncounter Date: 08/09/2020tatus: Signed Pharmacy Consultant: Maci Holden CMA (Wash Oil Pump Operator) Left VM for patient with results and advised to return call with questions or concerns. [facility] Evaluation note No assessment inform [facility] Work Phone: Evaluation note Diagnosis Primary hypertension Unspecified essential hypertension Combined systolic and diastolic congestive heart failure, unspecified HF chronicity (CMS-HCC) Acute combined systolic and diastolic congestive heart failure (CMS-HCC) Cardiomegaly documented in this encounter [facility] Diagnosis Primary hypertension Unspecified essential hypertension 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) ASCVD (arteriosclerotic cardiovascular disease) Unspecified cardiovascular disease Dyslipidemia Other and unspecified hyperlipidemia documented in this encounter [facility]* Diagnosis Encounter for screening mammogram for malignant neoplasm of breast- Primary documented in this encounter [facility]* Diagnosis 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)- Primary Occlusion of right radial artery (CMS-HCC) Embolism and thrombosis of unspecified artery documented in this encounter [facility]* Diagnosis Primary hypertension- Primary Unspecified essential hypertension Left ventricular failure (CMS-HCC) Left heart failure 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) Shortness of breath Acute systolic congestive heart failure (CMS-HCC) Acute on chronic HFrEF (heart failure with reduced ejection fraction) (CMS-HCC) documented in this encounter [facility]* Diagnosis Cardiomyopathy, unspecified type (CMS-HCC)- Primary documented in this encounter [facility]* Diagnosis Primary hypertension Unspecified essential hypertension 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) ASCVD (arteriosclerotic cardiovascular disease) Unspecified cardiovascular disease Dyslipidemia Other and unspecified hyperlipidemia documented in this encounter [facility] Author Natalie Garcia [facility] December 09, 2023 12:25pm Note Date/Time December 09, 2023 11:55am [facility] [address] [place] [address] Gastroenterology H&P Signed Patient: Chinmay Knight MR#: [id number] : 1975 Acct:[id number] Age/Sex: 48 / F Adm Date: 4 Loc: Room: Type: [facility] Attending Dr: Natalie Garcia DO Copies to: DO Claudine Etienne CNP~ Date of Service: 12/09/2023 HISTORY & PHYSICAL: [...] signed by Natalie Garcia DO> 12/09/23 1225 [facility] Work Phone: InstructionsNot on filedocumented [...] section and content) DATE CREATED AUTHOR 08/12/2020 [facility] DATE CREATED AUTHOR AUTHOR'S ORGANIZ ATION 07/11/2022 [facility] DATE CREATED AUTHOR AUTHOR'S ORGANIZ ATION 07/30/2022 [facility] DATE CREATED AUTHOR AUTHOR'S ORGANIZ ATION 06/16/2023 [facility] DATE CREATED AUTHOR AUTHOR'S ORGANIZ ATION 01/08/2024 [facility] DATE CREATED AUTHOR AUTHOR'S ORGANIZ ATION 04/10/2024 [facility] DATE CREATED AUTHOR AUTHOR'S ORGANIZ ATION 04/13/2024 [facility] DATE CREATED AUTHOR AUTHOR'S ORGANIZ ATION 06/13/2024 [facility] DATE CREATED AUTHOR AUTHOR'S ORGANIZ ATION 07/27/2024 [facility] Care Teams (unrecognized sec tion and [...] Active Member Role Status Dates Claudine Hernadez , DRUM SANDER OFFBEARER-C Primary Care Provider Act casey Start: December 22, 2023 Fletcher Flores MD Attending Provider Active Start: December 22, 2023 Team Status: Active Member Role Status Dates Natalie Garcia DO Attending Provider Active St art: September 29, 2023 Team Status: Inactive Member Role Status Dates Khushbu Frederick DO Mary Attending Provider Active Start: March 15, 2024 End: March 15, 2024 Access Control Specialist Relationship Specialty Start Date End Date Josi Ba MD [address], [place] [address] PCP - General Internal Medicine 09/12/22 Access Control Specialist Relationship Specialty Start Date End Date Josi Ba MD [address], [place] [address] PCP - General Internal Medicine 09/12/22 Access Control Specialist Relationship Specialty Start Date End Date Josi Ba MD [address], [place] [address] PCP - General Internal Medicine 09/12/22 Access Control Specialist Relationship Specialty Start Date End Date Josi Ba MD [address], [place] [address] PCP - General Internal Medicine 09/12/22 Access Control Specialist Relationship Specialty Start Date End Date Josi Ba MD [address], [place] [address] PCP - General Internal Medicine 09/12/22 Access Control Specialist Relationship Specialty Start Date End Date Josi Ba MD [address], [place] [address] PCP - General Internal Medicine 09/12/22 Access Control Specialist Relationship Specialty Start Date End Date Claudine Hernadez APRN-CNP [address] [place] [address] PCP - General Nurse Practitioner 01/06/24 Access Control Specialist Relationship Specialty Start Date End Date Claudine Hernadez APRN-CNP [address] [place] [address] PCP - General Nurse Practitioner 01/06/24 Access Control Specialist Relationship Specialty Start Date End Date Claudine Hernadez APRN-CNP [address] [place] [address] PCP - General Nurse Practitioner 01/06/24 Team Status: Inactive Member Role Status Dates Kerri Varela PA-C Attending Provider Active Start: June 10, 2024 End: June 10, 2024 Access Control Specialist Relationship Specialty Start Date End Date Claudine Hernadez APRN-CNP [address] [place] [address] PCP - General Nurse Practitioner 01/06/24 Access Control Specialist Relationship Specialty Start Date End Date Claudine Hernadez APRN-CNP [address] [place] [address] PCP - General Nurse Practitioner 01/06/24 Goals [...] ON THE PRIMARY CLINICAL RECORDS. [facility]. provides no warranty or guarantee of the accuracy or completeness of information in this document.
[2024-09-25 01:23] VITALS: BP 145/100
--- NOTE | 2024-09-25 01:37 | ED.EXTPRO1 ---
HPI - Extremity Problem General Chief complaint: Extremity Problem, Nontraumatic Stated complaint: HIP PAAIN DOWN LEG Time Seen by Provider: 09/25/24 01:16 Source: patient Mode of arrival: Wheelchair Limitations: no limitations History of Present Illness HPI Narrative: The patient is a 49 year old female presenting to the ED for right hip and leg pain. She has a history of spinal stenosis and right hip arthritis. The patient and her state that she was with the pain clinic, but they will not call her back. And when she was going, they only burned the nerves and gave her Lyrica which does not work. No back doctor for the spinal stenosis and no recent MRI. Thee expectation from the is that wee admit his to get an MRI and get a pain consult. Her pain starts in the back of the hip on the right side and radiates around the right hip and down the front of her right leg to her foot. No weakness. No numbness in the legs. The patient states that there is no loss of bowl or bladder and no retention. No IVDA or immune modulating agents. No fever or chills. No trauma. pain 10/10 worse to move, relived by nothing. Tylenol and ibuprofen are ineffective. Related Data Home Medications ?Medication ?Instructions ?Recorded ?Confirmed aspirin 81 mg tablet,delayed 81 mg PO DAILY 03/13/23 05/08/24 release (Lynn Low Dose Aspirin) bumetanide 0.5 mg tablet 1 mg PO DAILY 03/13/23 05/08/24 empagliflozin 10 mg tablet 10 mg PO DAILY 03/13/23 05/08/24 (Jardiance) metoprolol succinate 100 mg 100 mg PO DAILY 03/13/23 05/08/24 tablet,extended release 24 hr omeprazole 40 mg capsule,delayed 40 mg PO DAILY 03/13/23 05/08/24 release rosuvastatin 10 mg tablet 20 mg PO DAILY 03/13/23 05/08/24 spironolactone 25 mg tablet 25 mg PO DAILY 03/13/23 05/08/24 isosorbide mononitrate 30 mg 30 mg PO DAILY 06/02/23 05/08/24 tablet,extended release 24 hr Previous Rx's ?Medication ?Instructions ?Recorded cyclobenzaprine 10 mg tablet 10 mg PO BID PRN muscle spasm #10 05/08/24 tabs hyoscyamine sulfate 0.125 mg 0.125 mg PO Q6H PRN abdominal pain 06/10/24 tablet (Levsin) #12 tabs ondansetron 4 mg disintegrating 4 mg PO Q6H PRN nausea and 06/10/24 tablet vomiting #12 tabs gabapentin 300 mg capsule 300 mg PO TID #30 caps 09/25/24 hydrocodone 5 mg-acetaminophen 325 1 tab PO Q4H PRN pain #18 tabs 09/25/24 mg tablet prednisone 10 mg tablet 10 mg PO DAILY #30 tabs 09/25/24 Allergies Allergy/AdvReac Type Severity Reaction Status Date / Time codeine AdvReac Mild Nausea Verified 03/15/24 20:37 keflex AdvReac Intermediate Hallucinati Uncoded 03/15/24 20:37 ng Review of Systems ROS Narrative 10 Systems were reviewed, and unless noted in the HPI, all other systems are reviewed, unremarkable, or noncontributory. [facility] Medical History (Updated 09/25/24 @ 01:45 by Isabell Sal DO) Osteoarthritis ?M19.90 - Unspecified osteoarthritis, unspecified site (ICD-10) Heartburn ?R12 - Heartburn (ICD-10) Smoker ?F17.200 - Nicotine dependence, unspecified, uncomplicated (ICD-10) HTN (hypertension) ?I10 - Essential (primary) hypertension (ICD-10) CHF (congestive heart failure) ?I50.9 - Heart failure, unspecified (ICD-10) Surgical History History of hysterectomy ?Z90.710 - Acquired absence of both cervix and uterus (ICD-10) History of shoulder surgery ?Z98.890 - Other specified postprocedural states (ICD-10) History of knee replacement ?Z96.659 - Presence of unspecified artificial knee joint (ICD-10) Social History Smoking status: Current every day smoker Little interest or pleasure in doing things: not at all Feeling down, depressed, or hopeless: not at all Exam Narrative Exam Narrative: Prior to examining the patient, I have washed with hospital approved and provided Antiseptic Hand Loop Machine Operator and have also applied gloves.? Prior to touching the patient, I asked for consent to examine the patient.? General: Alert and oriented, well nourished, mild distress. Eye: PERRL, EOMI, normal conjunctiva. HENT: Normocephalic, normal hearing, moist oral mucosa, no scleral icterus Lungs: Clear to auscultation and percussion, non-labored respiration. Heart: Normal rate, regular rhythm, no murmur, gallop or edema. Abdomen: Soft, non-tender, non-distended, normal bowel sounds, no masses. Musculoskeletal: Normal range of motion and strength, no tenderness or swelling. Skin: Skin is warm, dry and pink, no rashes or lesions. Neurologic: Awake, alert, and oriented X3, CN II-XII intact. No loss of sensation to light touch or presssure. 2/4 patella reflexes bilaterally. The patient has 5/5 and symmetrical strength to DF, PF, EHL, HF, Q, and H. Psychiatric: Cooperative, appropriate mood and affect.? Following the conclusion of the examination, I have washed my hands thoroughly after removing examination gloves. Constitutional Vital Signs, click to edit/add: Last Vital Signs Temp 97.9 F 09/25/24 01:15 Pulse 84 09/25/24 01:15 Resp 20 09/25/24 01:15 BP 145/100 H 09/25/24 01:23 Pulse Ox 98 09/25/24 01:15 O2 Del Method Room Air 09/25/24 01:15 Course Course Hospital Course: Provided analgesic control to the patient with: Morphine 4 mg IM, methylprednisolone 125 mg IM, and Norflex 60 mg IM. Patient needs to find another physician or be dilagent about getting follow up. Explained that we do not do emergent MRIs in the ED and that she does not qualify for admission to the hospital at this time. Reevaluation(s) Reevaluation #1: Improved after injections but explained that her expectations should not to be pain free, but significantly improved should be the goal of therapy. Vital Signs Vital signs: Vital Signs Temperature 97.9 F 09/25/24 01:15 Pulse Rate 84 09/25/24 01:15 Respiratory Rate 20 09/25/24 01:15 Pulse Oximetry 98 09/25/24 01:15 Oxygen Delivery Method Room Air 09/25/24 01:15 Temperature 97.9 F 09/25/24 01:15 Pulse Rate 84 09/25/24 01:15 Respiratory Rate 20 09/25/24 01:15 Blood Pressure 145/100 H 09/25/24 01:23 Pulse Oximetry 98 09/25/24 01:15 Oxygen Delivery Method Room Air 09/25/24 01:15 MDM - Extremity (Nontraumatic) MDM Narrative Medical decision making narrative: Patient has a history of pain in the right hip radiating down the leg. No PCP, spine surgeon, or pain management connections. Been going on for years. Reviewed old charts. gives additional history. NO imaging done. There was no trauma and no point tenderness. THis patinet needs an outpatinet MRI to further investigate. This is not an acute issue. Differential Diagnosis Differential diagnosis: Likely other (SEA, radicular pain, arthritis, muscle spasm) Medical Records Attestation: I reviewed the patient's medical records. Discharge Plan Discharge Chief Complaint: Extremity Problem, Nontraumatic Clinical Impression: Lumbar radiculopathy Patient Disposition: Home, Self-Care Time of Disposition Decision: 01:43 Condition: Good Mode of Transportation: Private Vehicle Prescriptions / Home Meds: New gabapentin 300 mg capsule 300 mg PO TID Qty: 30 0RF prednisone 10 mg tablet 10 mg PO DAILY Qty: 30 0RF Rx Instructions: 4 tabs x 3 days, 3 tabs x 3 days, 2 tabs x 3 days, 1 tab x 3 days hydrocodone-acetaminophen 5-325 mg tablet 1 tab PO Q4H PRN (Reason: pain) Qty: 18 0RF No Action cyclobenzaprine 10 mg tablet 10 mg PO BID PRN (Reason: muscle spasm) Qty: 10 0RF hyoscyamine sulfate [Levsin] 0.125 mg tablet 0.125 mg PO Q6H PRN (Reason: abdominal pain) Qty: 12 0RF ondansetron 4 mg tablet,disintegrating 4 mg PO Q6H PRN (Reason: nausea and vomiting) Qty: 12 0RF metoprolol succinate 100 mg tablet extended release 24 hr 100 mg PO DAILY omeprazole 40 mg capsule,delayed release(DR/EC) 40 mg PO DAILY aspirin [Lynn Low Dose Aspirin] 81 mg tablet,delayed release (DR/EC) 81 mg PO DAILY spironolactone 25 mg tablet 25 mg PO DAILY bumetanide 0.5 mg tablet 1 mg PO DAILY rosuvastatin 10 mg tablet 20 mg PO DAILY Jardiance 10 mg tablet 10 mg PO DAILY isosorbide mononitrate 30 mg tablet extended release 24 hr 30 mg PO DAILY Print Language: Kuwaiti Instructions: Lumbar Radiculopathy (ED) Additional Instructions: Please contact your primary care physician about the next steps. Here she may need to refer you to a new pain clinic in a different area if the 1 here is unresponsive. I see that you have not been seen at this particular clinic since 2023. Your symptoms are from a lumbar radiculopathy which is a nerve. Your L4 nerve is being impinged either from your spinal stenosis or from disc degeneration or arthritic changes. See picture. Although she has degeneration of her hip, it is not the cause of your pain at this time. In reference to pain management you need something chronic for your pain management. The emergency department is not designed to write for recurrent pain meds. It is available to help get you out of acute pain. There are no neurologic deficits and she does not require hospital admission at this time. Referrals: ISABELLA MOSCOSO [Primary Care Provider, Family Practice] - 1 week Discharge Date/Time: 09/25/24 02:24
[2024-09-25] MEDS: ORPHENADRINE 60 MG/2 ML VIAL IM (01:58)
[2024-09-25] MEDS: METHYLPREDNISOLONE SOD SUCC PF 125 MG/2 ML VIAL IM (01:59)
[2024-09-25] MEDS: DIPHENHYDRAMINE HCL 50 MG/ML VIAL IM (01:59)
[2024-09-25] MEDS: MORPHINE SULFATE 4 MG/ML VIAL IM (01:59)
== END 2024-09-25 02:24 | disposition home or self-care (01) ==
PROVIDERS: Emergency Provider Emergency Medicine; PCP Nurse Practitioner Family
DX: M54.16 Radiculopathy, lumbar region (principal); M25.551 Pain in right hip; M79.604 Pain in right leg
CPT/HCPCS: 96372; 99284; J1200; J2270; J2360; J2919

== ENCOUNTER 2024-10-12 00:15 | Emergency (ER) | payer MEDICAID, SELFPAY ==
--- OUTSIDE RECORDS SUMMARY | 2024-10-12 00:24 | XMS_ITS | CCD ---
Author Organization [facility] Care Team Providers Care Battery Tester Field Name Role Phone PIERSON EDILSON, EDILSON~[phone] PIERSON Attending Unavailable PIERSON EDILSON, EDILSON~[phone] PIERSON Primary Care Unavailable PIERSON EDILSON, EDILSON~[phone] PIERSON Attending Unavailable PIERSON EDILSON, EDILSON~[phone] PIERSON Primary Care Unavailable PIERSON EDILSON, EDILSON~[phone] PIERSON Primary Care Unavailable PIERSON EDILSON, EDILSON~[phone] PIERSON Attending Unavailable MIRELA, ALVA Primary Care [...] THAO, MUHAMID M Primary Care Unavailable Satya, HEEL EMERY BUFFER-C Claudine Isabell Primary Care Provide r DO Natalie Garcia Attending Provider [phone] DO Natalie Garcia Attending Provider DIMITRIOS Hernadez-Coleen Staples Isabell Primary Care Provide r DEWAYNE Hernadez Referring Provider MD Fletcher Flores Attending Provider TRAVIS BOWSER Attending Unavailabl e THAO, MUHAMID M Referring Unavailable KASTOR, CLAUDINE C Primary Care Unavailable Marker Khushbu RAYO Attending Provider Lauren CLAROS, Kendrick Reaves Attending Unavailable Lauren CLAROS, Kendrick Reaves Attending Unavailable [place] DAY LIGHT RELIEF OPERATOR-LANRE, Lesley Roldan Attending U salina [place] DAY LIGHT RELIEF OPERATOR-SOUND TRUCK OPERATOR, Lesley Roldan Attending U salina [place] [...] Admitting Unavailable Provider, None Primary Care Unavailable [place], Lesley M Attending Unavailable [place], Lesley M Admitting Unavailable Provider, None Primary Care Unavailable [place], Lesley M Attending Unavailable [place], Lesley M Admitting Unavailable [place], Lesley M Attending Unavailable [place], Lesley M Admitting Unavailable Provider, None Primary Care Unavailable Provider, None Primary Care Unavailable [place], Lesley M Attending Unavailable [place], Lesley M Admitting Unavailable Provider, None Primary [...] Care Provider Claudine Jay Primary Care Provider Unavailable Primary Care Provider Unavailabl e Khushbu Hernandez DO Attending Provider Kerri Varela PA-C Attending Provider [phone] Ly, Natalie L Admitting Unavailable Ly, Natalie L Attending Unavailable KastorClaudine Isabell Primary Care Unavailab jeet MarkerKhushbu Yoly Admitting Unavailable Marker, Khushbu Yoly Attending Unavailable GresmoothfrankAlexaie Admitting Unavailable [place]frank, Kerri Attending Unavailable MarkFletcher summers Admitting Unavailab le MarkFletcher mcneil Attending Unavailab le [facility] Unavailab le Ly, Natalie L Admitting Unavailable Ly, Natalie Gonzalez Attending Unavailable Kastor, Claudine Gonzalesine Referring Unavailab le Kastor, [facility] Unavailab le BECKMANCATHIEJESSE Referring Unavailable BECKMAN, JESSE Attending Unavailable Allergies Allergy Classification Reported Allergen(s) Allergy Type Date of Onset Reaction(s) Facility (20 sources) Codeine; Translations: [CODEINE] Drug Allergy 1 Anaphylaxis [facility] Repository (2 sources) Cephalexin; Translations: [Keflex] Drug Allergy [address] [facility] Repository (20 sources) Cephalexin; Translations: [CEPHALEXIN] Drug Allergy 2 Hallucinations [facility] Repository (1 source) ALLERGIES NOT ON FILE; Translations: [ALLERGIES NOT ON FILE] Propensity to adverse reactions (disorder) [facility] Repository Medications Current Medications Medication Drug Class(es) Dates Sig (Normalized) Sig (Original) [id number] 200 actuat albuterol 0.09 mg/actuat metered dose [...] 24 hr tablet Indications: Cardiomyopathy, unspecified type ([facility]) TAKE 1 TABLET BY MOUTH [...] vascular disease; Translations: [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] Onset: 09-12-2022 [...] 09-18-2021 Chronic Other aftercare (1 source) Other shelter (current) drug therapy; Translations: [OTH TICKET DISPENSER CHANGER CURRENT DRUG THERAPY] Onset: 07-16-2022 Episodic Other [...] visceral atherosclerosis (20 sources) Unspecified atherosclerosis of quile[place] arteries of extremities, other extremity; Translations: [Occlusion [...] Range Facility Office Visiton 07-14-2024 Follow-up visit [id number] Cameron Knighte 1975 F Date Provider Department Center 07/14/2024 JESSE MCGRAW ONC DCC No family history on file Level of Service:01518 IN OFFICE/OUTPATIENT NEW LOW MDM 30 MINUTES Normal [facility] Urine Cultureon 06-10-2024 Bacteria identified Cx Nom (U) <9,000 colonies/ml mixed bacterial skin contaminants 2 Days PERFORMED BY: [facility] [address] [place] [address] PATHOLOGIST HYDRAULIC STRAINER OPERATOR WEN DAVIS M.D. Normal [facility] Comment on above: Performed By: #### C UU #### [facility] [address] Progress Note - Provideron 0 04-12-2024 Progress Note - Provider [phone] [id number] [id number] [facility] Coding Summaryon 04-06-2024 Coding Summary HTMLBase 64 LarsmooqZPh3wIq+PGhlY WQ+ZJ8CRNAvF06orLNefU 8fD8JEWSnZVljdXLAQPGy AEuYkvlFyLQ5usBWwOTAb IC8+VK8xNSRyZisqyXDql 2I3aLG7G79rik4eEIwdpN B4GKLkCqBffefne3zmeJp 6IDcuNmluOyBt DFXpgH74ZOF5lG48Wk91e JNffFMar7vobEe2YhWhAQ ZfWUR4tMznPPhyv8MrPLW nU55opTBkr0K2 BVAwlWqyhGQaJpPzgLU3j Q6jCLeabvlmw4nlfukpQx k5sj39yMVjj4Y9aRN3W6F etvQ7KNOkgZWv CrlrxXRWpZ9jlzmsn5cmy yibDkAtBOToTGe4UMr9PU GulLrkTdMoEA36EVG9OUX pstKpC3ZdKFJh sNydLzU0e7B4Jm0DY9TGO uqtS5XRZJEIPZzygAR+PC 90ik65B0FsXmjhSxk2TKP jCNB8bJE9uS0l XFTlDTbcq5Q2rAD2U1Dbb wKhof2it0unBURjAQovO7 2rtGDid7C3KCTgsLS8WGR ywHbsYvHvwC16 Oyc+LLLbpAwnk6WiKjbzk 2stu6bmzAd5KmnjSMLwng EpaZglMJV4g3CySz1eSSC vvLT4uKC2tP9x PyYtSuB7NQbbB307HrJoj UCrUowyR68iU8IxbJU+PH IaJcf2DYYtdFgjGH7pZ4W hZGRpbmctbGVm kJwvNL1lOXUhilzvHXJhu G7kHETyJ8g1NpBrYmQ2WI pyR7SaFTRathpePy33iS6 zLaLqPsB2YJek X5DedjG9HQPtvBWcQPpvZ LO0W28iy6J4OWCzHGEmLK Q5kGL8cN7wkTtpfbbjvGZ mdDsgdmVydGlj MIpuCQwdJ326LDUhfDcmQ kNvZGluZyBEYXRlOiAgMD EvMjEvMjAyNTwvdGQ+PHR pHHY5nRzhHNFc rQDyVYvoTu7ybMdwhXnwC A3uKJMbcuroCDKcbK7pJL JinNGbuVziSE4bFYLzzhf gp758ZhQmCLA6 FMRrrLBjN6VzuR5hKlZyC ZPeLRCsE1PpnQUgXQtjM8 66RLujCsU2VVAhdbQeR0L sLWFsaWduOiB0 b7X2Yv9Ch1NqbqtgX5Zvi SFlBtXuWcvgMNc2T0JdCk wvdHI+QZ32JMXnLU07SOo 8MKK8nIpoOVmg QQUxG4CvqX2iNmJaLCLgA GRkOyc+PHRhYmxlIHdpZH RoPScxMDAlJyBzdHlsZT0 uDx8rUYBoKAQq zJksaUSkDuLxd1cuAMCtX OihRZ3ceFbiU5NrjLX1BF Kqk0j7Pl22P16dC8BqdPN +OYGliRD5pQB0 aT9sJqBuRkK3AGqhB252X eSvwLTjDtvil0gyh6frmM r3WwK7MWQihcAcqRtdFMR 6e6TyUb34S68y IHdpZHRoPSIxNSUiIHZhb Fldux2vvD6jXj6+PGNvbC B2uIX4qR3xXsSiRgP0GNw nL781ZwQeoIIh Emxtz0thv9gomPa8DzYmT MPpquPukDnkEPG6x8LqLn 81L4DggIijc2AsKlb1cj1 4qNAps8O4xBV8 G6RmTNCvtukiwHFmwRjnU O5yVDXtxjwmJQRocT6kAW KmM6x7ObOsMfR4TAloX9W cygI8CSJsyOZp RCEwaGWUuX9ukmpej2hzn ietJuXeFESuMNw4AVk7TJ GxzScpWnYpDRJ5OsJ3KHN 4oKAkqR8fxEzy fegfdZ4vZwd+TEM9kKJqo GJRFR3sZulntRZ+PHRkIH U9kOxeDLpgJWXfiS0cBFH sT7x9TdRdKiK7 TNxbG1GfvbH9PTPofVPlV VLghCZIhV2ueqhgr5wood xrKrQnTRRqQPo3SFw0GDH saWduOiBsZWZ0 GzW7RJZ7gFKrnK2yzYxkx gltgR7fEkl+QmlydGggRG Q5YOr8P8RxEgf8SKVzkSc qAR6xsSMfSChz Rp9drHwhbDodYK6fLPLtt pkva512JqWaq2mkYSAomF YxEJqzLPA4N25qa9P0SJS mGTUyMBM7iLP7 eK1ddNqdhhgqbJMirMvsb lMkdCxtULxqPMonY991UC FxqMvgOzDzPSx9I8UjFht 3ZWGwnWwdDB1s nIHfFLbcMr9cgNwhvLncK D3eYOYfuuxug391NrAyq1 pzWGGgsURvOYlcOUQ1D80 cb3O7XLQeWVBd WFP0qSU8cG9nnJorfdoso GVmdDsgdmVydGljYWwtYW tuB519OCQmxJskBsOmdXk 1O3TqYvb2DDGf zTooUL4ewYAzQYccKz7ue OuhzHlwIA0uTFNubosbv0 27XaYwi0yhNUEqgXSpOXr dHWJ6Y13gp5E4 LUHqAKYhKTE5xVC2tY4kk GlnbjogbGVmdDsgdmVydG ohTBgfGHquI464ZJNxlSt nPlBhdGllbnQg WSusRCh7K9LtDkrcsFO+P Z63UHKiZQ00gVNjfLInu6 tuaOv7EnImZNQeSQV9gPo iGHfgy6XlKKAa H44qpRTny0I7EJQorGukp RNdIeVwaFR8lM1uHKnhxu ini5xixhrnHrwkq7xueq3 8aD70K05jPFmg ZHRoPSIzMCUiIHZhbGlnb m2zrH4yHh1+NORryKK6rK B1pH7aLDSxIsC8EEpgB65 9InRvcCIvPjxj r4uoh7znzZk7OfS2GHRst hMnsZirEXO8b5AgXq27A1 9sIHdpZHRoPSIyMCUiIHZ syKpsry1xaR1b Ii8+WCIxgYJ3eGM6vE7aW jVwRuT4WEgfG751QtVdnD ScRwqlQ57rH7WkmUB+PHR tLzf1IJYztRrj WB4knYRuZOmjCt6hVMQ6H gVkPhNjGOnwM6ViNONqtf qrkmxnpFD8AVKhDTLyuF1 2Hr1fsMabNLHc fJYOeV2joooif6mabclhS wDpQLQcMUc2ZHo2IOZkhK mrXrMoTUU0RqI6BFE7oSV guG2giUtubelg jS7hP7MxGYBlamgeKy67f K5oJrMyOtN2IYejZzu+SE LTGW5EPSHOIOASVCOkZZY NZS53BV98kCEr v0Q4yNI0X6TwJITglpfrx twudYL9ZOOmTWWjtV63gK LjWDhyFl0oz8J8f503IIG pCHSsgD71Tn0g kPbeSMDreQCNzC2bwrszt 2fdzkizFcRqDSIjDWs6BJ w0WSBgmWxmBrSyTNL6UyG 9KQL3gPNtjG7m sKndhurlfA6kDkw+MDMvM SYuWGg1CGwbtQB+PHRkIH E6jEtqZSzlUQWozC5iEVH eO3r7NtVlRcH1 NKeeA9VjBPFffvebGl77z N5mDnVrSxQ5BGudW6Nomu L0HHXacUUuSAjcJPU8U94 gv1N7JXDnFAAr AFN5qRF0xD2ekJratqeat GVmdDsgdmVydGljYWwtYW ljE465BWMhpEuwXrVfKSl sBBSdQT66GI27 qTMlw4L9mPB9T6SpSNWht zyzfcdscVO9DUPkKBUsaF 11vXEeNHaeMu7lq0H8v09 4KDPnDHDuxN83 Me3rnOkzWWTldTSVcQ0ph fckl2pveonbMvMaAJLcMT l2INg4EPOayCvtWuFaOQE 6YpM1TIL9cSLl qY0mdIvmtoozcD6vXof+R dBERUyFJS62XW75uWRqc9 N1vWI6L0TtUHCyioiwfjz xqNB7CLIbWTTb mH25fOSiMHjqQp2cu3P9s 526YKWjAHJjmE24Fa2icI tvFRDffSHIsX3yyeyre3q vcjogIzAwMDAw VWq2GTp8EPUoxYxsApKxF PO3HnZ6PKG9hIJphU9foL cekcufcD9yDmy+C5Q9X4R kPjwvdHI+PC90 JDWyHE75xHXtlTMhr3sgb Az8NhVmYSBiKRQ6dUfdJR cya3ApPAIvX10ubHYfr4G 6IGNvbGxhcHNl IrUaxNR2zM0bRYbiplbyk 8fxkwfuKewgm2wtzi06bH 82A93zUFtqHZBlECYfRDV hGJNzbGccxb3c jZ3iMy9+JWJglCJ6gBW2j Q1fZcTjWyI7NHnqJ781Zu RhnMVuBpogh0cmk2bhwYj 9IjIwJSIgdmFs yMsrOLY3e5KiWq23P51cQ HdpZHRoPSIyMCUiIHZhbG iztk4ddX2iPb4+NQ2tb0n ymj29dG10vJT+ OERcLCY2iYmnMQnuBFZqb B3iBAmnDfE3BVJiXzWlfB 81hXLnFYmsLa8dnCaexTn jSC6cORTcoqtk q349RwQbb6shQWOkyOYlX IwwLBO7Z31pv1C0CSRoQZ ZnTMF2fBW9oA6hnGtvmeh gbGVmdDsgdmVy jUnwODqtSApqN794FJWgu DyqSnDybTIpI0vsmbGFVF 1lOjwvdGQ+MEPwUAH0cMu xWCwvFTRuaM0h RQIeV4n9DcDhPuA2LWryN 1CjirI2OLQlyCYdIRWgtK PLsN0gezztu3bkluneZfI xSXFcZMi3ETs6 IKOpqVbcUsKaZNK1RbA5Y RU5uEUhzG1tmTkzohnvlH 9wOyc+RklOOjwvdGQ+PHR vZAM6kVgcTGtx SFImnG6gRGYoG1d3JiBtJ yI6SXxjV9UamcJ8IDUxfZ ExUIJvdZOKnU7ytuaqc6g vcjogIzAwMDAw YKm0YNi2SUDfdXekZzJcD EE8PeM3FVA0wILecH4bgR ucshwseF0hCdc+TVJOOjw vdGQ+PHRkIHN0 mTekBAquUUSxrZ2xSLApQ 7u2LsDkJvW4FOojP9Qvar K2VRIzhLSdKTKajKJTbW1 dwssof5qlkhkd LjYnIFRxCKg2MHo5SVYza HtcYjPlIMV2ApD5IEH3sY BblS0dxIpksvphaC8kJja +UXG8AEY8CX46 FU41M2KyJqhkaLQiyVM+P HRhYmxlIHdpZHRoPScxMD CwHgEggFoiEZ5pVg3bYVE yLWNvbGxhcHNl OiB (more content not included)... Normal [facility] S. pyogenes Org specific cx Ql (Unsp spec)Ordered By: Khushbu Marker on 03-15-2024 Group A Streptococcus Culture Abnormal [facility] Strep A Culture Onlyon 03-15 Strep A Culture Only Strep A Only Cult No Group A Beta Streptococcus Isolated 2 Days ORGANISM: Ana albicans (O:CANALB) Quantity of Growth Moderate Growth PERFORMED BY: [place] [address] PATHOLOGIST HYDRAULIC STRAINER OPERATOR WEN DAVIS M.D. Normal [facility] Comment on above: Performed By: #### C [facility] #### [address] Coding Summaryon 03-08-2024 Coding Summary [facility]Base 64 NjzfomcuRGa5jOz+PGhlY WQ+TR7QAWZwQ96jpJQgmF 1fJ9LCVKgWRswhYATIDZv KLvQnluZdDB4oqVYkRCSj IC8+GC9vTOCtOsddlCKwv 3T9kAB1Z02iiy4xRQffcT N7OSNxBbYhelpvj5kmsAe 6IDcuNmluOyBt MQYumZ51NLE9yO23Rd07q BCgbCEqr0hkzGj4QsUnDN MkBAY3wKbwVYzqn3RuNJB vR89qfOBno2W9 AUQwyLbpuVFmOcNefHM5o B1sXUjyxptar4zxhhiyUa g7rj90tCXmb2T2fMU8O2J rluX8WLTlbFQr NpalpDDQvM4qrkmmz8kng tttHdHxJXKeRUc7SBf0KL QazGosMzRnWB93VDH3OZW ryoFgB0LxEPOv gNdiTvD4m7M0Fk2CE2IDH skrJ4XASVCNCUjgwWF+PC 86gu99Z7OxPgiaHrr6AWW fLAP8qXS7nG3g WYVhDCvly2P9wXH8P9Vjc mRscn5ku5xxCCFjNBlaC9 4pyOEgo8I3LFMcrJH0CYT ziMkiPlFyfA66 Oyc+IMSdlHxzx6QxLhjnz 3qjf6chhLn3JqfzNORmss ErlAksHEH9f1SwYf0kZKZ mfJE7jLU1qK6y MsDkZdF4MShnC621PwLtt NEnAivjO13cC8IzlNE+PH GrAcy9OTAaaKalTA3eY0M hZGRpbmctbGVm lDjlBH8nHNOymmocBOWlr K8fSZWlI2r5ZlFqCcY4DB onT8SdLOLirnyiPz35sW7 zSnPqOnA9IGnv W1HrzrM9TFPrlSIoVFmsO EU8J87pe1P5SXRxMFOoNJ N2mTV4kS3lrJpjqbwlhOW mdDsgdmVydGlj YXjqOSuhL642GJOgfVvpH kNvZGluZyBEYXRlOiAgMT IvMjMvMjAyNDwvdGQ+PHR rPUL0bQylDCLl sFItPWjsQe3ddLgxnQlpA X8zRIHgujilYJOnnG7uTW JpaRSbfDjpSE7oWYBcilp sx981YaGkTWD1 FUEapKRnG4BnzG0nMlRuH WXfPZZxP7VilTYmTLxsJ7 47BUakBqP0PLLlumYyL2N sLWFsaWduOiB0 a0A7Jf1Uh4KkqteiL5Wbj IHdUxMvNkjyXQq0G6PtWg wvdHI+AE02EMCeFJ52FAt 1VOR7pJwuLWay YJOhF5CqjU2zXpLzHUGiN GRkOyc+PHRhYmxlIHdpZH RoPScxMDAlJyBzdHlsZT0 aJc2aTEYkPIAj eEpddRIdKbVqs3fiDORzV TgwHV5ghZhrI0EviND5IM Lpk1u2At55V47gP4AydAL +OSIqvEU9vXV4 fT7kVkKrJdZ7VIcmU992D cGbbKVfGuxuj9ezy2pprH v0BsW0YGLzdzOmuUllAQF 7c8LtSx65H28p IHdpZHRoPSIxNSUiIHZhb Bcugv2xpO1aBl3+PGNvbC T2tZH3uB7dTfXgSzR1COv eO293XiVqzEZd Gwvhv1seo2prfDt2RySiJ HEpvxJoaFmyLYT0u8JfLu 88U2TeoAjmo9QlRjx2fl5 2eSWqq2Z7qGS5 Z3MeQEFydgonwWVqjGojH J3iUVFkjwetDFBqfP3oTQ ZsC4n2GaCaUtW5VRehX5V xfyO5QWBwvNBo LWJsmUQQlF2byrifw7qit yevErPhJKYcKAv5UIn9MP CuoUiyCpCdZVO1JpB7VWY 4dOBgeX1hgXos pjrmyM9eIka+WFD1xLTms CCFPR7vOtougQY+PHRkIH R9zJysIDfgHDAusX8uGMA rK5r6AgQlLsI7 YJcsV5XolgE2BBPijDPuM UPrgWOHxF1sfilkk2quiu kaDyIeVLWvHAy1YQt9IHD saWduOiBsZWZ0 AiJ7WFZ5lPQikS8qiXhsg brvrI0aGhm+QmlydGggRG C2CSa5H6DvQvk4OJQsuBo vDK4oeQRwILiy Bk8wdMfydZsyAG7fAKTsz ropf813XlIle4tlKIQvbK KpUHdvULZ1P34go2R0GFC uGQUcQPK6iVX0 hT3esRsijmmwaIHffSeeq gDxyEynFZiaOJwnI021AL OzyMcyZzTcSIn3F9YsCao 8IDVchGirPT8l mLSdCPyvPu7lyHrhrAftE T8dPAYyqegsr639NvCau5 odVLSquPKyOLdtTEY6W92 cv3P8EBGaXWJj MXE0fUK9cY9toHaewexgq GVmdDsgdmVydGljYWwtYW ecA992WRSbuJtzMqAgjOg 0O7OjTri8DNWl uLuaEB2cyDDcMWjuFw7pj HyudIugKT2sBKVwaapvo9 61QnJjz7wqDDBztUPrTRq eBCW9I49co4X4 SUCgNPGgJGI8kVV6qV2nd GlnbjogbGVmdDsgdmVydG naASbdKWmjW960ZMXgxEy nPlBhdGllbnQg FGcfVIw4Y9IoWmpplKL+P L54AYRtHJ88yUDrqKMbx6 eysPp5WyKzQVFoBOT2nVl wOGaae3AsCMFl X59erINng6C2VUEugSitl FFwEbKvbZH5gR0uXUqjzu bjs3vgyguiTfffb9ugzq7 1jW37X24pZWaz ZHRoPSIzMCUiIHZhbGlnb h7erI2wBq1+HADbtNJ4zQ Y5bF1cPTPiSxM5TJatW42 9InRvcCIvPjxj r4khe9rciIi4XjD8JVCim wKrdXpgVVX0f9IaSm54M8 9sIHdpZHRoPSIyMCUiIHZ xkFpjwv4tdL2z Ii8+JOOotNZ1zOE5qC0aO dUdIrU4EYmiE120LoVvuJ RnWuuwX98lT4BvjUV+PHR oVti6FBWnpWas ZX7xaIHwIAcxBo7mLLG4V rFsSpEqNQbeH9RdRRSafk blydqhdKD0LYNeVKMesT7 4Ye1zmTftLTMp hXTGhT4wdyqdo2gwbmkaO nQtWQOiAUq0SZu4XUAljX ppTgNgWGV4EpQ4MYN3rDY xoX4bzZygalar jD7pS9VqKFIdlqgyUr73x X8aMzCpAfN8FHiwAmo+SE MRYJ9POQZRTVBVBDJdZNS YFM36XZ53nTUa c4Z6gVF4J7DqJTCuowaxd ojjmLM7YPQzLTBddE62wN NmPWgiAx0ys9N9i190GYO rYHWpxS22Aj8h lBvaGSZlhJFHpB7kayqvf 5rmpjxlQjNxPJCgPHu3MJ y4WBZwjVeaUxCdMSQ6ThM 2ING0iAFffK7l yKvtvamxkV8zJlc+MDMvM LRwFTf8NKyyhUQ+PHRkIH Q1tSufTKgfQJIxeY0sFZD kG2d9TwLpOaP5 BEdiM6HuBDUzgkhkQn51i M9nQyBaMhG2NFuvF7Lkdq S6IVCwgWWoSSmoVHE4N12 qf1X3UGAdGWHp VHJ0pDW6rO1zsNbbzvojf GVmdDsgdmVydGljYWwtYW zmP141XHWasEooNkJpFRo dCHPpAX94OB78 bEIue4C3cXY6X5QaCOTxz lwrvvpqeRQ5EKFnUWHnrR 31mDNgKEipGi7oa2T3a59 2TEBjPUBjpZ10 Lw5noAsrENKliDUPvC4ih zysy1rdcrzzEkQfOBYsVV r1MLs5XBLlmNjaDqLaTXN 4BsQ0OOE7jHHl yO9kaPtfzpudbW9yPpr+R rQNXRxCJM13QZ34xCRos7 E6tDW2L9RkDFMaqzxvlpr etNY1DTRlNAUp aF40tJTtMEceKa9th0N5l 567ZPIsFQEmkD05Aq8siX vgTSWsvAAZtC8xjfcoq9h vcjogIzAwMDAw XEm6BBu4KQKhmDgdErFrE WS5CaE4WLX6bHUpeJ0apH jvbtdpaM8wZtg+TCN9BUP 8ztecbpx7U8Hx PjwvdHI+MO48FHAxWH59f FEztUKrt6paoUo6QwPfFB PoWQT3pArnROgew5YgEHK uD98cwQGca4D7 QJSzrXkzfCPhZtZhrLH4y R2kQOkalgzet5cgapdmJx bbb0hpxx64lJ98Z33oBGf pZHRoPSIzMCUi FFZzwAeqoz1pwL1tIr0+P NArfBC2nKT1mD1xSeWyBd I7PGxsP493KmQgnGNwIbj va5iwd7hrwWm4 NmJyNDZoomPjlNjyTNW1w 7YpLz17A33cHPfhLHFpFI CmROUnRHYbqGnkzs8hrB0 wIi8+SP9vz1nf fj99pQ09rGS+AGPaHTX9l WjhKItdNCXcbI3jJGelXo D7CMFlSeBckC81wPKeUAe iFs7ahKtztGig ZN3rQWGbvyfos333GiInl 2upBMVukETlHWjeVVJ9V9 6qk9M2JICqVXPyVRE3mXM 1dB7gmZsfzlzy bGVmdDsgdmVydGljYWwtY FnmF387CXMilXypVsUkxR KwO2uqozOALZ1kRvqikVS +HKHfALC6rGkr NGeiSNIdoQ9qJWWrU0k5F vCdCnS5ZXxoV3IisjO1VL XftOVwQZBpsEQIwR0apxf cy4exizfwMdZz TJNlDVm6OJk8IBJhbUbjB dXiUQW3JtV3FVC0bHEhyT 4axAoteoxbqI9tJwk+Rkl OOjwvdGQ+PHRk PUQ6iUvxUJkcXKMnwM7qI BXgQ3q1TvBoVzS2CLxqG1 PnzvJ4LXHwaZToKXHvaGJ OrA1scspmi6bm iazmToPaBRNiYSv2OYw9S PFjoZygPmLxPBP2GeT8NJ Q5yPWtfV8bmXfsfidntI3 wOyc+TVJOOjwv dGQ+GHLlSOM6yFqtMCthY JHmvT3iSTXqF2n1NgRvNa V9GXtgK5IwaoU0RHHjuZK nZILlpRMTnE1f sakis5gmlhwnShWeSWFuW Wu8CLw1GCDolHjwUjLmWO J4RwS1MGM0eJKvvM5moRw fxsznvJ6sSrl+ FVE8ANY8DT40EF87K8FyY jwvdGFibGU+PHRhYmxlIH dpZHRoPScxMDAlJyBzdHl nBV2uOv4hGDSu LWN (more content not included)... [facility] Coding Summaryon 03-03-2024 Coding Summary HTMLBase 64 RwjsaiquCNi0iXy+PGhlY WQ+OD9MQYSqB54qiFKhcG 2sZ7PRLWhGLctgHYCVFDx UUbNdeeWzEU2arGUlFXWa IC8+AD6lTHKmSgkblVHwu 4C4yDD6D75fdy4dKYriqO Y0FPWiNuIectgov5widUv 6IDcuNmluOyBt LPJwpJ66LGN0sD59Vz21n WGodUWae6ajnZp9TcZfPD BvMUV3aEhbHIkhd5YnAMU aW93zuQXkt0I5 ZHSknXhwmSTuEfKnfOT4n L5sGVyowoxxo0rmceulRi y3ii80yFKrs0M2xRN7P8B rlkS8MNQafMSl RtwacCUAuE0bmhmnb3jxj eosQtYnAJZgPHt8CGj4MR FehZhkCdSrLJ37YBS3ZNC bbmHaU2AgSZAx mIsrIoL3l4B5Uk3SI9HEC yipX8NLVASWVQtxkIE+PC 19yu37Q5QpWagsFcs9ELZ gHLN0uOP6iC5s KVNrOBfzs0H7yNM1P9Kng bLbus7kd9ofBPNuWOehG7 3ulFXxj3W2ETBkyAI3ZUX lyVbbTuWwcF22 Oyc+TYCntWrrm2WvVruft 0yry0vtuBq8LwpzHKHgcs YrjUunCFZ8n7YfEx5xDDA prJW1wRG0uC3t OxDpXjU5XWgmJ690ZrJme ICgDmfiU98tU4OdlUS+PH ChOzb3UCNmdRlyEK3bJ9Z hZGRpbmctbGVm mAxrAX6aCAUgadokBAVnv R3mLISiN6a7MzWxEbN4HT awM2NmKYSruhjwMl65sX7 nJpAcDpR0FCqr C6NonnP0THJmjEGiFDfzK IH0V81tk0M5WXDjGNWpYK R4qQX7aB9ayWbfjhsgvYU mdDsgdmVydGlj LYfzLBfdY144QHTedZflS kNvZGluZyBEYXRlOiAgMT IvMTgvMjAyNDwvdGQ+PHR lZQC1vQsfJIMe rMLzQTirAs9nyFgjtIcoY T3lVHCivllcFQCyzX9pKB XiqJBasNmiQW9bQCYbqyn og364IvMcEJA3 LVWfcJPsE5TmjL4rZySrO QSsRCWqM0XdsNXyMNlnK6 44LDazKjS3JQTtelWaX7Z sLWFsaWduOiB0 b2A6As6Ku6YzqmutW9Xpc FYbJzQnUnzuYLd3A2ExGb wvdHI+CN57DVPiTU96FBy 5KPI4cQmqHZwx ZWUnM4QjxV6tFjFwBUUgU GRkOyc+PHRhYmxlIHdpZH RoPScxMDAlJyBzdHlsZT0 vOz6aJLGdEQJm lBkgdATzFoFeh4wmYROwB MvfON4dqNfrQ9RfjVY3UR Swu8s0Yx67W21yP7RveMM +LEIdoOM9tON9 aB0gVvYdMrG7KLguR561O gIkaLDlGspgb8zms4vwhP w4McJ2GRPbfxSgzXpnLZP 4c5AqYa42R26h IHdpZHRoPSIxNSUiIHZhb Nluaa1tgM0wXc8+PGNvbC M4tIU1vS7iLhQoGuI1BDr jX627OkAlgPLl Foajm9gmt0fxvMz4HcKrM EZoqyCnxDxyCWD3w9BiDk 35J3ItvNvxo0WmJfq7xd2 8bYKhg1H5wST1 P9DmMUBkmxhrbJQsmBgkV Y8vZDKjjmnkXSEftY7mPT IqM0x3LcKyPtV0POqcX4K ttmJ0KTRjbKGe PSZgfDQMzL2ngjklc8pjg rcxZtPuQAHyEGm3AQe8AT JsrYmpOcPgCTH0HzA0IRK 7oMPbmN5vyEla wnttbK7aAdn+AFS9hDRtx FBEGS0yByjgpSQ+PHRkIH W5aJbaIFqmSHGgzB1gFRC sT4o5KhBhGfW8 ONimB4CpkdF2LPFbdWUqE FEtfXMOnC5yxdqgj5agoy baEcVaFKCrRGl6OXb2ZMJ saWduOiBsZWZ0 AdG1CXM4iRAajQ0koZkrd hvupV8uBvt+QmlydGggRG W2OYs8T5RpXsh2MRWbiWg yKY4rdYCiGVoq Zd6uiAncfWijNU1oSBHbc fdpm444RdRxm5gnTPKfpE ZaKOooRAY3C90xo7T3FFF pVBViIVQ9iPS1 wT1iuNjwdccjpSLukCoks oAzuAboAVchQMnmV096IQ OpdHlvBeLlDKc9G2KqVik 7EUDifHjfOX9t zWKuPLzvVc8xyZelsVnxF F5fFZWycfrlg887BqJuy4 grHKIqdWPlTXjtSQK2E18 qh7C1SWEdFQLe GFK0zDE8gQ0ijOrhwzekj GVmdDsgdmVydGljYWwtYW rjG477VKCyaPdwFeMxqBo 9X8BtAzk8OMKe yWbsOR8jxNDiVOciXj2ow GwbhZjpCV0kBSTnujowr9 64RkDet4cdISDsnHAiSVq zQJM8N02tb4Z7 LXEuPFLzXOE8aNL9vY2rm GlnbjogbGVmdDsgdmVydG zyXHsoCVqvF844YPZgcHy nPlBhdGllbnQg TIclNIw5W2OhOeuiqEY+P D19EONjLS91zICwdRVtr8 nyyRu8MjLeNMSlYRP4mBr jQVzbd6FmDIAo G39yaDJao8V9YFRapNneb MMyXbMruCD3oV6vPMmfxi fgw8fsssctSzuox2lopw4 7yD79T57fHYev ZHRoPSIzMCUiIHZhbGlnb f7weG5dOn5+KDXpzDG2gA C9qE4cSJGcJaC6ONovU57 9InRvcCIvPjxj g0uhx2rghVa4VdX4KWTjp uTzwBvcVIN7v7NqHq24R6 9sIHdpZHRoPSIyMCUiIHZ rrFhozs8xwV6b Ii8+HMDurBC4uNB3vR2mS jRuJgC2AUiiT279MnEetW FiZlbsI76uP1UjyYJ+PHR iWpf2DJGvtMkn NM6gzUNcTLviJe2hVEU1B jXvUzVsAVwxM7GrUXWaqo lgmqyybGE3LGGjEYYesZ9 8Gt0ydNwdNDGw eZOObI3erpdsy1dbxgzgE hFvRDMyAUn6RRg8AHQjdV biCnYlHCB7ZkC9SIV0cVJ xxK3gfYtnjbvs zW3dX7ZdQFDfeqnuFh97a H9xWrWvQvD0NGubTka+SE RHAO6ATVQGPDGUIDKiQKL TKK39OF80bXZx s5J1lEY6J1ZcFFHplzpde fjmtHE0DEHtWSNluD43eA SvRPeeMs1uy9Z5c170DWL dEPLonG67Ft0f mTpmXCTirNDZyD0emvrmx 6fmoafsGvShXUEhIHt0NQ o7FTSqtHdlQrUyBQU5UaW 0WAQ3xXXhxM7q eYeonfkerB7rGsq+MDMvM OMqADd1HUqyiWG+PHRkIH T4kWmlUCazMFKdjZ0mYXS mC7l9QlYfGmF7 XUasQ1PjQXTnecshFp64r X2vWyZaSgP9LSgtC7Fshx P4QNXxnCTsHGyvZCT0D96 na0L4JYUgCACs WOB2xEH7oC2zgSmawdvyq GVmdDsgdmVydGljYWwtYW wpJ779PIGrxNllLxRdCCt zRVYjOO80WZ24 nLRud8W1eZB5X1YnUQIru sguslxjwIJ3TFOzYRQikP 57fAQbLUooTz0li4Z1h43 6FASaSFMcyJ11 Us1rsGqkCQBgaKQKlJ8ek kxwl2kwmtsgJkVhKVZvJP s5RAi9YDOrsMesLjCoNCO 5OlM6SST2yFFo uZ7adTszqvougJ6nAiw+R yWPUUkKJJ05TX81gHKll0 E7fQC2G3AnVSRsjieagyj uvNX2NYRaOBXo yN00oNArLXbkYq1nx2F4z 562CLBnVQOtnI64Ax5kvV mcQDAluLQYhH9jtjkuj3v vcjogIzAwMDAw FSd6ODg9GUZdqLbaAxQbE ES7MuC5RVE4sFIksO3khL dnitjfzI0qHjn+HBI9GIZ 1cyshvxo5S7Vt PjwvdHI+BL50AFXhAI95f DVipKKez7toaAt6RoQdSH OrKET2lPnsAFadt6HgRDW vB51vlPNrt2W3 CENseUkepKVwZqXctMI5k J5iXTzoitpir7qbowjgWl fdk0btfy95jW58M05lXNn pZHRoPSIzMCUi OKCwdSzpad4gwB2nIb8+P CQpgNV4mFT9zK7rGzSnOv C6IPqdL829KjEmhVYdDri hq4yob6vmiDb2 LmYbHYCtjaGkaUraDLH8u 6IbDk77X10eNNcqIDBoKI RfLBXfPTIgeHrikh8nqI3 wIi8+XF8wd0fm za43jC13kIZ+MJUeGBB4a WggANbfXGXrkF5sORdgLw U4IHJfKkDveA94tPYxAMc cEg0nnGnmsGjp ER9aBJDigyndu484TqPsx 7qmDLHpvTGyAZyjEWR7F1 3yc2D5VRXbTIIeJVO9nXT 7rQ6zbUyqjnsu bGVmdDsgdmVydGljYWwtY UioP353IRVasSthQtQqmS ZxL3ljcwYSVO5pTyxfcZA +TQEdRVS4iGyl HZwaGPEtuW1iEUDoB9b0S xAqXgM4HZhvS7VnscV8BB AvwFIpHCDwtOTRiL4lxdw zo4arrawnAtGh ENPbTXq1YPx0VXWlzLciT uGuYGE2MbI1KWR2yECbcK 2lfZcebxvlqO3zFie+Rkl OOjwvdGQ+PHRk MUC3yGajCAhsCRQsbW6dF ABfQ8j8BbEzMxM4QYnoL9 PohnE3DQWylOCmPKUbbNU KgO5batpwv2gg gmrcNiOhGAQmCKs8TZz6G YWftNkwAxUaOJB1ZgL0OO T8fUXdoY6ntBxlsbhxqK4 wOyc+TVJOOjwv dGQ+IMXsILQ4zOjrVXhqJ CQqlK8jZMImY6i5AwOtNd T4HBdqD7IpkwP1TJOpzQX eOGBkcENJrS9y pxmva9mmfcgoEnHyEVObD Pr9SGs7BMDeyJyiUxRaUV O4LfC0UWP2gRIyzJ6pkYj mhqqgvP4rJwe+ OZK8CAH3IH18QC84J3QfG jwvdGFibGU+PHRhYmxlIH dpZHRoPScxMDAlJyBzdHl cOD2cCx8qLJEe LWN (more content not included)... [facility] Consent Formson 03-01-2024 Consent Forms [id number] 0 [id number]. [id number] [facility] Anesthesia Noteon 02-27-2024 Anesthesia Note Patient: [...] on: 02/27/2024 10:36 EST] Shahab Rivera MD [facility] Anesthesia Note Patient: CHINMAY KNIGHT Age: [...] [employer]ner NKP Tobacco user / SNOMED CT [id number] / Probable Histories Family History: No family history items have been selected or recorded. Procedure history: Facet joint nerve block ([id number]) on 01/30/2024 at 48 Years. Comments: 01/30/2024 10:50 REJI - Renee Dean MA Bilateral L345 Foot ([id number]). Social History Electronic Cigarette/Vaping Assessment Electronic Cigarette [...] Oriented. Review / Management Laboratory Results Plan [place] [employer] (ASA) physical status classification: Class III. Anesthetic Preoperative Plan Anesthesia: Monitored anesthesia care. Anesthetic plan, risks, benefits, and alternatives discussed with the patient and/or family. Patient verbalized understanding. Informed consent was given. Consent was signed by the patient. [Electronically Signed on: 02/27/2024 08:40 EST] Shahab Rivera MD [Verified on: 02/27/2024 08:40 EST] Shahab Rivera MD Normal [facility] Inpatient Patient Summaryon 02-27-2024 [place] [address] Patient Discharge Instructions Name: CHINMAY KNIGHT : 1975 Patient Address: [address] [address] Primary Care Provider: Name: Provider, None Phone: After you are discharged if you find you have any questions, please, call [phone] ext [phone] to speak to a nurse. Discharge Diagnosis: Prescription Information: If you have been given a prescription for narcotics, seek immediate medical attention if you have any difficulty breathing or any sudden status changes such as confusion and sleepiness. If you or anyone you know is experiencing suicidal thoughts, mental health, alcohol and/or drug addiction problems; contact the [facility] 07/10 Crisis Hotline -Text 4HVIF to 441315. If you received any narcotics, sedation, or [...] business decisions or sign any legal documents [facility] would like to thank you for allowing [...] (in otherwise (more content not included)... Normal [facility] MAGR Intraoperative Recordon 02-27-2024 MAGR Intraoperative Record MAGR Intra-Op Record Summary Primary Physician: MURALI WATERMAN MD Finalized Date/Time: 02/27/24 09:06:32 Pt. Name: CHINMAY KNIGHT FLOYD /Sex: 1975 FEMALE Med Rec #: [id number] Physician: MURALI WATERMAN MD Financial #: [id number] Pt. Type: D Room/Bed: / Admit/Disch: 02/27/24 [...] Kokinda, Diane RN Role Performed Anesthesiologist of Installer Technician Installer Technician Record Time In 02/27/24 08:41:00 02/27/24 08:41:00 02/27/24 08:41:00 Time Out 02/27/24 09:06:00 02/27/24 09:06:00 02/27/24 09:06:00 Procedure Radiofrequency Radiofrequency Radiofrequency Ablation(Bilateral) Ablation(Bilateral) Ablation(Bilateral) Last Modified By: Noemy Bermudez RN, Diane RN Kokinda, Diane RN 02/27/24 09:06:20 02/27/24 09:06:20 02/27/24 09:06:20 Entry 4 Entry 5 Entry 6 Case Attendee Maine García RN Guilherme Cornell RT (R) Merlin Lemos RT (R) Role Performed Installer Technician Radiographer Technologist Radiographer Technologist Time In 02/27/24 08:41:00 02/27/24 08:41:00 02/27/24 08:41:00 Time Out 02/27/24 09:06:00 02/27/24 09:06:00 02/27/24 09:06:00 Procedure Radiofrequency Radiofrequency Radiofrequency Ablation(Bilateral) Ablation(Bilateral) Ablation(Bilateral) Last Modified By: Noemy Bermudez RN, Diane RN Kokinda, Diane RN 02/27/24 09:06:20 02/27/24 09:06:20 02/27/24 09:06:20 Entry 7 Entry 8 Case Attendee Rukhsana Bang NEUROLOGICAL SURGEON MURALI WATERMAN MD Role Performed Scrub Personnel [...] (R), Renee Dean MA, Truitt, Regina CSFA NEUROLOGICAL SURGEON, MURALI WATERMAN MD, Noemy Bermudez RN, Merlin Lemos RT (R) Last Modified By: Noemy Bermudez RN 02/27/24 08:44:35 Patient Positioning MAGR Pre-Care Text: A.280 Identifies baseline musculoskeletal status Im.40 Positions the patient Im.80 Applies (more content not included)... [facility] Preoperative Record MAGR Pre-Op Record Summary Primary Physician: MURALI WATERMAN MD Finalized Date/Time: 02/27/24 09:17:57 Pt. Name: EUGENE CHINMAY FLOYD /Sex: 1975 FEMALE Med Rec #: [id number] Physician: MURALI WATERMAN MD Financial #: [id number] Pt. Type: D Room/Bed: / Admit/Disch: 02/27/24 [...] consent correct. General Comments: Pt arrives to [facility] ambulatory. PT denies cp, sob, cough or flu like symptoms. PT denies pacemaker/defibillato r or sleep apnea. Finalized By: Marta Sousa RN Document Signatures Signed By: Marta Sousa RN 02/27/24 09:17 [facility] POCT Glucose Levelon 024 Glucose [Mass/Vol] 195 mg/dL High [address] [place] [address] Comment on above: Result Comment: OPR_ ID=IN_LIST,TGC FLAG = False,Meter:[phone] Charge Nurse:[id number] Halblaub Sidsel Performed By: #### 4 [id number] ####[facility] (DEFAULT)[address] [place] [address] Glucose [Mass/Vol] 211 mg/dL High [address] [place] [address] Comment on above: Result Comment: OPR_ ID=IN_LIST,TGC FLAG = False,Meter:[phone] Charge Nurse:[id number] Halblaub Sidsel Performed By: #### 4 [id number] ####[facility] (DEFAULT)[address] [place] [address] Patient Handouton 02-27-2024 Patient Handout [facility] Progress Note - Provideron 1 04-12-2023 Progress Note - Provider [id number]#1. [facility]-10-2024 Coding Summary HTMLBase 64 CkwkofvsDCu2bVh+PGhlY WQ+ZI5QTSRvT89gpLScfZ 1aC0XYYGoITihuBLCYYLo GDpHyesAyFT8sjTAnXEJh IC8+RX8gSQYtZxedtYTir 1X8jAQ8C50uop7aQWkhbG S4KBLtSwLsrnkbs7jjrIr 6IDcuNmluOyBt RTNpyE45DTR3qI61Kx37i PChiNBdc3dphXa9DhYiST DvCZB1cHznXMhoy4GcXNL yW12baQPjc2R6 MDGglMejxMPwOpFozBA9l A3qGXqzeqlas4ktzxokXf p8qy87hYDrz7W7oZV3N4C gokB2ZRXnbHCk QkpjkOOOhX5tshwmj6eaf xeaJsVoABHnQRj8CHg1AH HfbHcnZcKnOI90ELH5VGF tfkCgR8QfPXEy vHhcUpL1u4U2Pv9ZH2WTN eygE8FYEJKCSUsknDV+PC 99dh98K0WzKljkUgn4SNT lIGQ1lUK5yH5q SGXuYHrhz3G9hRM5K4Xxa lZqen3ak6qpYCAwUAwrR0 8moZCli7W6XMUihEE2APQ qsLgqBeCerM23 Oyc+NDLigCctx5RgIokeb 6uww1rfxMm5KmdgEVBclo MxlUjqYKD1f2FgHv0aLOF niPD8fGE5eG5x CkQlSwF2HRrlR339VsWum CEySvfeX13iB5EcsRF+PH FvXmb6RMKknKudYE5uN5L hZGRpbmctbGVm qQmdMK6pELCigvbzZGVtq D7nFLHzN6j2TrPtTbQ6CA jwQ5OoUIEurbwxTn10lS3 hHcVnBlD0QUns O2EygcR1QMTimBDpANpuB FO0U80jk1I3ULLrCKKaWQ D4cLI4oZ0saCyblerodVG mdDsgdmVydGlj UKbdGVwaN105IAUhoLqwV kNvZGluZyBEYXRlOiAgMT EvMjYvMjAyNDwvdGQ+PHR kULZ4oLlhGLSd qTLqYStiTe1hkGhyjIuaE V6fTALvvkneQWDxqW8jKM BbgUTuzUtnND6qLYMxwgl zv820IoAxMIG7 HMMxhMRbN5MhnW7dBxLmW NQpRHKjD6SqnJKuZOmnS7 28GSvgTrE0QSIbjzLsX9I sLWFsaWduOiB0 b7Y9Px0Cz6CoriamT4Trj VMrYrDiEpyoZEq8U6ZjOq wvdHI+EF97CFPbEE21BYn 2INZ3jYlkNBmj NAJrH7DouW2fAbYpCNHqE GRkOyc+PHRhYmxlIHdpZH RoPScxMDAlJyBzdHlsZT0 bTu2lOWNyLPNi gWolmCUmKqNif5ioBKYkM GkcKN0rsOsvY1UsoHJ0YV Ous9u5Or92B15zJ2CsyWE +YXMvnJY7mPA0 xY7qCyRaCnU8CZktE228W uAtsYEdIldcz8ayq2wygW t0SaU0CSZnybVwqMldLVJ 5j4VoNo61S58g IHdpZHRoPSIxNSUiIHZhb Qfodr8nxS6oFy0+PGNvbC J7qFO6sQ8oZxLcZvH8SOo oH212JiYveFYd Fpsdo3rtz3fgtPg7WsJpD SNzhbCkaJmgPRA1r1TlRf 06W5YtwMjtx6FaEfj2nk1 7nBYhk3E7yLG8 M4JsZMAzbmhwuXQfkLslA K1pAADqeafvGYTzjM7tCX TaV0d8GwOeRuL0WLesQ6S prvP4JUNakKGg VKJqaXQKgS9nsfkuj2ttt jrkFuOqVZWeHZe8UVn5DY OhyVvkUoFtSPT0JiV3PQZ 0tEYqnO0teRxd pfnpdV4nObi+VYH4bLAdh YALSI0wObkeoOC+PHRkIH U8mFwdJLakCPGyeM3oIOB tV6p5HwDxKnU6 PXwmK6BheyR7SKHbxCZtX LBmrJQHqS3syuyju1gtgl prAgMwNQPxAKa5HFp3JZG saWduOiBsZWZ0 QtH8LUJ6tRZqdI3pcFwui epofI7qZtk+QmlydGggRG L4ISu3A1JtYgb4CVZqrCp nBX9fqXCoHJsr Iv1guMvezEhgGM2gJXZef tyac501DyTxc9ymPHGtrI OdIEelNEH4O33sd0X6QSI eGLLhEOK0qQW1 jY9wmMpxdqakrUOclSced zKmoHgfXIsmLNvcG075EP AnoWmvJoUhSZf3H9JqCug 5OUDsgDuzVB1a bPBxLWryRs3vsXmyzIbpO M0kSGUizvgvh307DxJyp5 yqOIIzwCAxUEchPXB3M24 rq0Z4EHSzVRAr YTJ7lWK0oO3tyInijvhco GVmdDsgdmVydGljYWwtYW ggJ097FLCgpOkcYgFwpWq 9D7OqMdp0GQBt fQudEQ6nwINiALlwGw7qv ZgheHvmFE2xKFYmsurpo3 77PxSqy3xaEKZhjPMvRGa bZLT5E99ag0T8 BJXnXMMiJBH7hJA0uO1pz GlnbjogbGVmdDsgdmVydG zrVBsbXHokO208TAMiaXp nPlBhdGllbnQg YMoyNJk9I0EnLqbxdKV+P I10IYVuVL76iSDtqNRxy2 jehMl0VnQaDPAbREN6iNw lLXzyo8JkJKJo B34ykTGfy3U7VAFteKqve NJqRbWxuNO7aP5sBJmwzv vub6gzcifhVovau6grau9 8eY93G40zABxt ZHRoPSIzMCUiIHZhbGlnb y0zwI3lVt5+HDQpuUX6mA T2kN1yQOGhKcG1FNdfU22 9InRvcCIvPjxj q6toc7aewJy1IiE2UOKpr vRtnQgsSLL6u4MeBj60I7 9sIHdpZHRoPSIyMCUiIHZ leAmzjh2mwN7q Ii8+WYJayIC2xPA8cP7gB yGxNeX7VAyzP849JgYfjH FpFbdlK61hW8BafZL+PHR oSsu6KKOdyUue GF4abNKvUZaiFq7nSXM9J ePiDeNnQBhuX3WtGUFwzy ydnvbxvEZ1OBTdGGLzbG1 9Oe5jrOqwZRMh fOCNhB7bxahep9ducohrS aWjMNDjENl3CVo7DNOfsN bnEyScCZB8FnB8OKH9iZR iwP8izPwtolxr fI8qP4UxDNTenedwLw79e Y8iOzBxFiJ3AMglBuy+SE DOMS4EQCCOQHWSLYMlSYA TIY38UW23xTRf o2X5lTY7H1OmLGQkvjfei sxrsER8OYJwRSCsdB63vD UbSTpwQd9em8X4l117JLV fMIPgvD13Kc9z yMyeBRZwaAHWcX2iymgxg 2gkqvipSzWsTUYcIPl4MT n4TGFpsIblZnSnTHO8CpW 2FLA0gEGxvB6b eBrlfphpyX2oJrn+MDMvM YHrUSs2EMzwqML+PHRkIH H7uFjfWHevUUJujU3kJOL zG2d9FzLjKtO8 IFptC6BgDXQytuhdZq58s P6yGyAoNbE4KIzlR6Jaso M0LYLvaJRtOJsoLYB6I07 fs1W2AZNlBQJu AWQ5jOE5uL2whMpytllwo GVmdDsgdmVydGljYWwtYW wlW324NKXmzDqbNkYdDNj jHIBiRH42ZL50 iSDva7A8bAP2M6TdSZMet rxpdyaauLI6GGCrLMNvfE 70gUCuOYhoIc0rk4K2b54 7MQNfYTZqqG83 Xn7rdSlgQZHskCZLpW6qa lagq1clyciiHpQbOGWpXA t2VBp2EUWctFiqYoIqRCB 0MtH5ETH7xEFx eA5jpJuhlwkknQ6cXla+R mABUOtYKA01MU08tLJin1 P0wRW6W9UcROXcdzzmums rjNW0QGWtAMTh pA16tBVxYWbgKd6tw0S3y 258LKJrKXXixA30Ku3jkB xtYTHjfGWDwD1zercds1b vcjogIzAwMDAw EOs4LWd3HZCbfWhrXcJeD EG6ZiX4FXO1xMWagK0wnM gnxkskuT9aCun+XAO2XIA 5gfvepco9J5Gv PjwvdHI+SE50UNUvJH43l NIqqDSzw4cdhRn2BvNeUW OqWUA8dZbfFMnen2BwWNH wT93oyTRai2G7 XVDdwFmkrZYtQdPalPS2w P4bXQrqwmhke4qvmfccQm emg6fwfc08wL79B99aHSt pZHRoPSIzMCUi AETrnCnrnk7eyI6fRo9+P IHghGJ9tJZ1bA8rWwNsRf Z4UMysJ456XrCcfLOcHrs uj2htp1cztPn3 JxVrBGNihdTmtElxUML9b 1GbTp15D93wAAvlHKLfSF DhTJFxFCGtjQcoer6qzJ1 wIi8+JZ5ik0ym vn07wI22kJC+KDOhSPX8f ErgZEbhOQKcvF3cEAdyGf E8PYKeJoXrzW44lNPxKHb uUl3xpFnmiRoi KT5tATOdvhxbm313AeOtc 2wjLIMxgDAzRNciQSJ9X5 9et7Z0MPLaBXYmKCK3wIH 0wL9icZdonmep bGVmdDsgdmVydGljYWwtY AsdE537YZOggJtjUiNxaG GhR4oeyuHIVE8yOeyrlGQ +XCSqXWA3bDpu ZBaqCIRljV9zRBVhG4n4I iZzTnN1JCtnI2KqifC8YI SkvCAzDNVlcVCLgY5bexa tb3rbisijJgYk DAMvZFt9DWw4GHGejCnzY wEuNHL3SmG9BAO1fKAfmX 8gbQanliqhhF6vSla+Rkl OOjwvdGQ+PHRk YOD9dUsuCIwsDIKnlY1jS MXsV2o2BrHpPbN6HUgiQ1 ErbdF3ENXnhPJgQEDljGY KiY0zabwly1sd xwgoMvMuCPXpFUm7ZMv9O RSkzYvjBrIjGRQ4UmW8TV H6kVGwhH7cfVandhxorU5 wOyc+TVJOOjwv dGQ+VMQrMHG0tYygXWkmV JVdbM1dNHMeC4c0SeIwUl S0GMzwR8TyosM9LRTslYL gGXVhhBLZcO7c puynb5sqhbxnImHqFQIbZ Cl2PTh8DDIzeXhdQdOnTV X9ZgD4OUX9pDCmfX4jbTb cfqtzgX6xIzp+ TUB1NBB8RK99SJ37X2RnX jwvdGFibGU+PHRhYmxlIH dpZHRoPScxMDAlJyBzdHl uCV4lKm2iRNTr LWN (more content not included)... [facility] Coding Summaryon 02-09-2024 Coding Summary HTMLBase 64 YmcmejlzNEy7jQb+PGhlY WQ+TL5VEOKhU01jsFYitX 6lI4UZJGjVWqelARMHZWb NSxXgbiUoLA5hgODnMYHs IC8+TD6pHDSaGedyoHXgx 9R3oIH5W38kor9rJQutoJ J4FLEnUiNxudmqi6wutKb 6IDcuNmluOyBt MXZjlM58VMI7qK42Zh33x ZNndERjh2gqrMy1MvEhNA NqMTZ3iLdeIQixz5JzGYC oU20xwJLhz1P5 LPGihMvnkBTsOxMvsOM4w G7lPQhledcqe4jdklyoXo t2wq33wKDun8D6kRK7K4Q pfdK0WCXliNJt QxpxiPSByA9wpnlxw6jre hdtJzKySMYuFGz0BIo9RL QksQvnFbIaDK63CFX0QCL taiAmY1YlCJZy lWpoXvN4t9Z1Kh7JZ6YOW kyxO2PUOKCMFFaulLD+PC 18vv52X3WrOafcToi7XAN aJYU0xRO7hY0h SGGoBHsil9O0nMA3L0Fnv sLnvs1cz0heJLRwEMbbI0 9niVNsq9M4YAFgzUK8WUA lkLfeJrTzoN53 Oyc+DHOweMxoi5OhCrfat 7xjo3kwzYf0NbxlZZQdla TlfHnbQXB5z3VrQc7zJKZ vfGV9gSS7nL7a UoSuBgB7HNetL829JtNit PXiSuyeJ69uO2JvzHG+PH MaQmt9OPKcfNfpKR2iO3M hZGRpbmctbGVm oFruVD5qDIFbuvgzHYPnr E0yQCAkN4x4QoNrMeP1LJ xhO8JzKQDytkkbKz90hQ6 hSaIaDwK2EIhh E5AvjyD1PYRbpSZuNZwrW ET3H51pa1I7URTlYEGiQA K0eVH0qP6aaMowozhqaYY mdDsgdmVydGlj BRgrBFegU240NLHzuKsdU kNvZGluZyBEYXRlOiAgMT EvMjUvMjAyNDwvdGQ+PHR nUIY7dNycXDOw xLMqBLhxMp9yuWpbxEziW I0jLBJqzvamZIQotH3gQN NezFBtyDfyMT9jXBPjsbg yi900MwKbXHT7 CIGqqXZcT9QrlU8fBfWyH XCiFWPeQ7TunXVkGVsfJ4 45ZAhpNpJ6TKTjmlNxN6M sLWFsaWduOiB0 h3W9Lr5Sm1KfuuezW0Poo FCwWeTgJawiJJd5F7QiDu wvdHI+XF60NRTtWO57YHy 5DRL7aOwtQHsk PGEwZ2OpdC2pSdFzQCQnR GRkOyc+PHRhYmxlIHdpZH RoPScxMDAlJyBzdHlsZT0 wVd4qLZJyOFNl rKjirJQmKlCqu6sbVDAbL AiyAX5bpCieR9LjoOL6QX Wtn9f6Jq00A55xT8AebOH +IDQeaJB2xJI4 iJ6rDkHkJkE2WJbsA685P cUhpZAkBcqra1tvu5xhrL o9JaS8XZMhnxYydCdsICC 7h8HcMu89U62z IHdpZHRoPSIxNSUiIHZhb Refws6ngL0gZg4+PGNvbC Z2hWL6pH9xPrGoVnV2HOm oT250WsTcdPOh Yejrg0xzq1gbpLb8AkNkT KSmbeMsdGbyVXF9a6JmOq 88A2CivJakk7KfHus3vu3 0wRUvv1F9yHU2 H0SiFYAdoyaplWEtlUdfD L8gIEPiodrlYJKhqU3oCU XqS5m4NmJkFyR6LKprQ3A zgkV2QTRpqXIz UOCmzJXJuJ4vvlkam5fqk olmSrMgIJZjMVz2RSy3NE ZjsJsiIcMkYLQ4VyK5RRD 4iGUmzH1ogReo zftxtD8dZtg+JIZ1vCTtg TEQOD4oHsflbVT+PHRkIH H2uOijAHfyKIUbpS2lWXD aP9e9ZoFqTpT3 FGczQ7FqzkI6YROvqGVxE CFwjWJEvQ9bjrynu8ququ zgLiGqTGRdGJx7MDu0ZKV saWduOiBsZWZ0 WnG2GYA7tRVbhV4nwEjsd fkwrC6kLyf+QmlydGggRG R9CSf9D7ZuPja7DXSnvIy cUR5caZVmTRqu Uk6njWnopHffQY8kRVQba oszd690VaKnj7wfBAQueI KrGLyiNXV3V50vr2E5RTZ dPDBcSKW0fJH7 oA6fdJffkhqlwZNokZuls rXdhUsfLVhaRShlT916BC HhwSorFbDlLXv0D1LbDwi 3YQIlqKpaMV4s dTYuJKplBs6iuJbezSziD E1qMIOutenoa139HfUwy7 kwFFGogHHzIUgvXTE4B88 hh6E2IPOfMIPq BYK0sVP0wL8liWafpphae GVmdDsgdmVydGljYWwtYW gyA165FMDesXjqSqRpqAv 6T3WvLea9XMDc iBmpFY5hrHGxKNxgQh8qv QhwcPweML6uAEQkzxmwr2 35RuNcm2bjWNVaqSNdYCc cAAL8N46pi7C1 CKDnFWZtKGH3sMO9uM0it GlnbjogbGVmdDsgdmVydG ouRYngSMesO298UWGdmRw nPlBhdGllbnQg DZsjNCi4S2QpOmypjBP+P K55DOSlOU92qSCxpGEyg1 rcdYl8HbQtQPCsQNY2nIa yLPyoj5KaUYWa C40rhJMff2T6RVUwcEgvx LRsWcWsnUF2qT1fCZdbvw qvl0utuoeyRmwxn4hdii9 1oP05D64kOWax ZHRoPSIzMCUiIHZhbGlnb v7mzE9qQl1+FFXkrIZ0nB U1aX9iXJIwFqZ6EWpiQ00 9InRvcCIvPjxj n6kwc2dymOn3SsF7NAXst hUvvSubFFP4u2YwTd37R8 9sIHdpZHRoPSIyMCUiIHZ grGwvvp9dfG8m Ii8+GVMquGS0oBV8uD8fY oTrElX7MNghE070RjRwdC ZeRohdR81wR7BllDI+PHR rKxn1BMJcbEwf ZJ5akBLbLSxbQn2oWSW5T gRcJzEtAEbvA3EcUVEdng tfgwqxeTJ9IMOsHZSfaS5 0Zf6dtRqeLIUn oPQTpG5vbxcpj1xovvbeA pKkLJPwAEx2FGm4HILnfM ziGtUpDEV8QuF0LBC3zVN cmQ5vaXgnqpvh bT7lQ7EwSDRvsqzrOs96x W0oTxHqBxY7HItzHxf+SE KXJN0XRVWOPFZPBCXtQRK QYP14ZY23pLAy b7M1vLO4L1SrPFPezagnq gvyrSW6WZXeLRGttK31dB GhPPbsPg7gz6Y7p783KAJ oGHSzwE18Na4p xYdiDAFcrTWDgV6pinlii 5zunrefOnFuUHLkYPy2UD f3EKJsuTiwCyIuUIZ7EzE 5PEI0kBQfeW1q kIydxqkbrW1lXde+MDMvM NGuULx3HSuqbCF+PHRkIH U9nBycFJmtGNSidO4lZLF oY9t3NpFkLuG2 ZTgtB8QrJPGfvnhcJb45q X0xXeFqKrX2HFfpH5Wftz B6FLLyfNUsQKuuVYH4W98 zf0P7TQGbWEJs FFE2tOU5sS5isQwpopboj GVmdDsgdmVydGljYWwtYW znP433IOWinUopYrMzIOz wOHOvGX72VV89 nEXij7F0fEX3A8EeECKrp djvxyusfTZ2OJOmKKQnvQ 34uNPxYOmxJt7hy8R6l85 1VAWmRRNidC90 Pp4atXwaGOCyqGEKgR4hf vpxs8ilynusDuPiBPSrHM k4JYd6HZChbCixDaIhOUV 3AdJ4MFA4vCJe tF7qvUeclsbcmG2fXsq+R bNJUYqTBF03XL81pCYbn3 I0bEG9U9DtNWRzvwfqnqy qjVB5RDEuPKVi eJ90bKFjKNxnJy1ty6V6t 778WZUnVQCrfV54Xu9vjR woDWTvuSXIwE2txkrgn6u vcjogIzAwMDAw CFd1GYd0AOKdbPckZcTwB JI4GeU1PJW7zAWtwK8oeT frawisaK8cTws+A7I3O4X kPjwvdHI+PC90 SZWpMW35yXDxrPUjp9gbc Hw7EiJvDBAlLBY8lDaxQX agd6PbQHQnN75yhTRbf5R 6IGNvbGxhcHNl PcMkkNZ2rF6qGWlibvtqm 1mdwteyWwjdn9ahso93hT 57T62dHMumEAZlIHVuBFL gWGJrmBmycb7x uT6nSg2+WHVnlYC6mXA1d S1hJjEfXfM2YRrcG895Ny OgbVWnEirjx3qwb5qywAw 9IjIwJSIgdmFs yLpqNIK4d0RxBw40A58fU HdpZHRoPSIyMCUiIHZhbG ksgu0pgP3tXt3+FG3qg5f pvf87sY43uZN+ EBXzTXJ7gJxeQXxxXWUwv X2tESklFmM0XMWnVmQluK 12gABjDXylMp8tsElluMp xTX6gMJEciqom v002QiBgj1dlESReuVYuI XyqOJU9N61jt8D7MKWpXF BnKLS4qHV0xM2ykNxamws gbGVmdDsgdmVy rQquTTqrESooM825SULgi BroFxBibUQpM2fdfnAOLD 1lOjwvdGQ+VXDtLFK9zPy rTPjnHPJibW2h BFFnT3r1LtIeKeB6WZjaM 6WafyQ9RELxmTZrZZCipR RIyW9imtbuk0kkrmhmOdJ yRIGyYZa3QYa8 QJLfdFqkXuZoJER3AfV8U FL7bDObpN6hbBkikecveK 9wOyc+RklOOjwvdGQ+PHR bCGJ6jDuaCYxz LHTlcQ4hMIRzY7s1LlPtX wD2MTmbU5YfpwJ2KWYqaH ExFHMokHHTfG2kgjshh9w vcjogIzAwMDAw CNt7SUi9ILKcgGdcZyZrY QL1OzI7BGB8tAFzhJ1dkZ nskwrbcL2kGqj+TVJOOjw vdGQ+PHRkIHN0 tBmsDBkdOLMfhQ6sDTEfH 8y7JrCpMqR5LBxyQ0Sikl G0ZZPcvXJgAGXkqANAhU1 jxibeg0dmlwww TgOxSGZdYVe2UDf7QPUal IugJhIaGCJ4QsX7PXP1dF JllO1oeVxqhlnfrJ6vFtu +FBC3GSU6ZY27 WI00V7FtDpuiaMGdkFR+P HRhYmxlIHdpZHRoPScxMD SsXwEstHlrJK7uVl7eBFF yLWNvbGxhcHNl Oi[employer] (more content not included)... [facility] Consent Formson 02-02-2024 Consent Forms [id number]#1. 00OTGTIFF [facility] Inpatient Patient Summaryon 01-30-2024 Inpatient Patient Summary [facility] [address] [place] [address] Patient Discharge Instructions Name: CHINMAY KNIGHT : 1975 Patient Address: [address] [address] Primary Care Provider: Name: Provider, None Phone: After you are discharged if you find you have any questions, please, call [phone] ext [phone] to speak to a nurse. Discharge Diagnosis: Prescription Information: If you have been given a prescription for narcotics, seek immediate medical attention if you have any difficulty breathing or any sudden status changes such as confusion and sleepiness. If you or anyone you know is experiencing suicidal thoughts, mental health, alcohol and/or drug addiction problems; contact the [facility] 07/10 Crisis Hotline -Text 4HOPE zm 702428. If you received any narcotics, sedation, or [...] business decisions or sign any legal documents [facility] would like to thank you for allowing [...] Take onl (more content not included)... Normal [facility] MAGR Intraoperative Recordon 01-30-2024 MAGR Intraoperative Record MAGR Intra-Op Record Summary Primary Physician: MURALI WATERMAN MD Finalized Date/Time: 01/30/24 10:23:16 Pt. Name: CHINMAY KNIGHT /Sex: 1975 FEMALE Med Rec #: [id number] Physician: MRUALI WATERMAN MD Financial #: [id number] Pt. Type: D Room/Bed: / Admit/Disch: 01/30/24 [...] RN Truitt, Regina CSFA CST Role Performed Installer Technician Installer Technician Scrub Personnel Time In 01/30/24 10:14:00 01/30/24 [...] Role Performed Scrub Personnel Surgeon - Primary Installer Technician Time In 01/30/24 10:14:00 01/30/24 10:14:00 01/30/24 10:14:00 Time Out 01/30/24 10:22:00 01/30/24 10:22:00 01/30/24 10:22:00 Procedure Medial Branch Medial Branch Medial Branch Block(Bilateral) Block(Bilateral) Block(Bilateral) Last Modified By: Maine García RN, Erica RN Baumer, Erica RN 01/30/24 10:20:27 01/30/24 10:20:27 01/30/24 10:20:27 Entry 7 Case Attendee Georgina Rodriguez RT (R) Role Performed Radiographer Technologist Time In 01/30/24 10:14:00 Time Out 01/30/24 [...] Time 01/30/24 10:15:00 Participants (R), Rukhsana Bang NEUROLOGICAL SURGEON, Renee Dean MA, MURALI WATERMAN MD, [place] [...] Extended Right (more content not included)... [facility] MAGR Pre-Op Record Summary Primary Physician: MURALI WATERMAN MD Finalized Date/Time: 01/30/24 10:30:46 Pt. Name: CHINMAY KNIGHT/Sex: 1975 FEMALE Med Rec #: [id number] Physician: MURALI WATERMAN MD Financial #: [id number] Pt. Type: D Room/Bed: / Admit/Disch: 01/30/24 [...] Signed By: Marta Sousa RN 01/30/24 10:30 [facility] POCT Glucose Levelon 024 Glucose [Mass/Vol] 125 mg/dL High 74-118 [facility] Comment on above: Result Comment: OPR_ ID=[email or web address],TGC FLAG = False,Meter:[id number] Charge Nurse:[id number] Ager Jacey Performed By: #### 4 [id number] ####[facility] (DEFAULT)[address] [place] [address] Patient Handouton 01-30-2024 Patient Handout [facility] Coding Summaryon 01-19-2024 Coding Summary HTMLBase 64 OyfidqijUXd1lAw+PGhlY WQ+ZC8MQTHfQ40vbALzdZ 0rJ0UAYIdBEizkDNRUZQc IAqWmsvGpKT2inZUjXLCx IC8+MX7aWYBhMwntqRFlj 2I5dSU3O24fwz4nQVqzzA O7VRCzZoEebfrid2gnzOq 6IDcuNmluOyBt UAUplR35GIN0wB53Qb01k USouHPjo5ygcUd5GtQtXT LwHUL0nHbrZYzbx0UhBUL iT52qtOMfi6K7 LOOwlWjcpYQjWqPgkDC1o B4iTLjrjvwhw4cttzkbFs j7wn98fLTsk7F7qLL8A2T cfrT2FHJimAVo IrcvlOUUwD5cpqydc3qnw cbwYhGjAUEeMXc7OEx7SA AuwShoBvAwXQ39UMK4JXK xzeIhK1ThQVGd rXdqHgR5x7W4Fg4TS1NIE qcjJ0LCYGFYXBapzBJ+PC 77xj78Y8IvOhduNlm2UEL oULT6gFR3sN7k DVUxDAsqx7Y0wPV5W1Pkn bQigi6jg2nhDPVlDJaiX8 2awACnk6T1TPKuqMN9NWI efIfyJjQpeK94 Oyc+UYEreMosp1ChXftxw 4cgv4vxbEc0DsckVZPvko XlbEctRVZ1h2HiEj1hMNH alIV6wWF9fI2o DlQoTwR0PJqrD221VoAxp DUsAqqvV63mG0EwcDO+PH HeCos0ZQWbzSzhYY5fA5G hZGRpbmctbGVm zZagNH5wPTPkewrtSTHxb P7pZCDlH2g8RjQtNmG3PT egR1DmXDPchqxoKs03bV1 rHfBvJmH1EQhu X0SibbD9ZCJvpMVcCJztN EG0T09vr6A7UNEgJKLtER G5eRT5eB7vhMqkbzaqhTG mdDsgdmVydGlj JVkjYIxxB038ZDZprOcwI kNvZGluZyBEYXRlOiAgMT EvMDQvMjAyNDwvdGQ+PHR dDZV1xFhrQXQq jGIwSQjvWx0knUuraRzjO B7hBRWqwqkiZLAefL7zOH GptOKxdQxhLZ1nHVNypvf ju004YuPaKTM9 STItvFCpU3GcyL9wEkAsX CTtELNgW1AqyCMjJVwrZ7 49RDacGiP0ETHmlqRvC6E sLWFsaWduOiB0 d9Q8Jo1Eg3IrfscbE3Htl PSeNfCvRqjhNOu6D9GaFo wvdHI+GZ97YUNdLE56PQn 6FCJ0eTbdNNyu KISxT1VlsO4sUrCxNBZoA GRkOyc+PHRhYmxlIHdpZH RoPScxMDAlJyBzdHlsZT0 sEo6bUNAaEUIw zMfhnWKgTrPcq3neMJXpC GwqTO2dwFegH8VgwUN6LE Hib1y5Rl22I21uS2XsmUQ +ETOrvKD3lFT1 lD2iEqSzUtT3HQlvX451R aPmlCPwRggnj0adz2hjbP a0DaB1WPDtvlFubSsyFRK 6u1XlPf25X78s IHdpZHRoPSIxNSUiIHZhb Owatk8ynN5lZr1+PGNvbC L9tNC2pM6eXqXkTgK2MIy kW628EsWxgWAa Cqcqx2cmr1fdbNq8MkUpH QOgotFflUhrSXH4n1GpEc 73F2IvxFfif0QlJkk4mq2 5yACmj4V0lCI7 K6UtJQGrahnueDJvcZmvO S3nYSWjixarLGSgmS2pYK NcG3u5JcPuUdZ4XCcdU2P zecW9JSIokQVt IUIilGIZzG7mhswrm0xqz cawRpRuJXDaLAt7KOt4QB AmlKeqKpHaEFY7UkR4KPD 7bGYsbI8weEli lqinfY7lCfl+KSN3aQOdp UZSAI3iHoghjKP+PHRkIH D4wFutUYgnZSQtdK1pDQU aL4a8FxBpNvZ4 ZFidG5SprlH0WBPxxEBnN ULfnXLFnY4icjxjz3veoi msUnNyXIMrSIx9VUu4XPF saWduOiBsZWZ0 VbJ0MXI2vUJxnC1mxSfpq gqgvB2mUqd+QmlydGggRG I4VKs0T6GmLnf4YZQjeYt fOQ8ruGFeKSff Qt7qvMuhoUocQA4tCCToz nylb770VwFpe8gdTRCzdF QoRLpcHWX5F47te3F1GPD mISWhCXI4mYQ4 mH3ckQjgnmrduRKbtWcbs iSrwKumFGxyYCdnI059BN TviRmgDfBlYGz8T4VnGgz 0JIAtkCzkDB2r bBKpZNqrOg4zjOmrgKjlM R4vPHAcajuyt096ReEel5 yjMMZzgDFrQMgrGQZ7V80 tr4O6CDEgLVNs NEJ2xYB7sT5biJsrfvlkg GVmdDsgdmVydGljYWwtYW naG698TWSjbMnoIvMwbWq 4Y9NxDtx7XZGk eCdrKA9yeLHxPKofCc3wc MfhdQsyFJ9bHIRbwwijg8 90VdVrv2lhMPRrpWKnORa bMAZ0K06az2J0 EIPxKLDrFBY6hQT6eM7wp GlnbjogbGVmdDsgdmVydG doOWfhBOsrU057GXHhxRd nPlBhdGllbnQg YEcuLZh3E2PtKfavkCI+P M22TPQqFF77sNPssORhe8 qdbYv0RiAgAECpCZD0rNf uKMfhg6PhAJMg Z30onUGkn5K0ZDZsuCbyi ZOiVkJrsVL6pY9qYIfotx nzv1dugmgeXnwnj8szpg1 3uF50R28uFZmx ZHRoPSIzMCUiIHZhbGlnb n6lhL1gEn1+VUDfgUY7mF G9mL8sPHUbHhI1JGxlG10 9InRvcCIvPjxj v9kmc6xttWs9LwC0XVHgf sGcyJauEAY8q5AsVm44K4 9sIHdpZHRoPSIyMCUiIHZ hcDxzxo7gaX7y Ii8+NGIltRI4aKL5aY0hN lMoPxV3EEltF031PsRnqK NvSbmaG94yQ2YqbTP+PHR rUnt9SLIjpRqx YV5doTRcRUnmCt1mXER8T lMyYdJaEUckR2DjMQBolf wwcrafkZZ3OLRnZYUuxD2 1Qf9ubMwkGBUv mAUVcO4hebqxv8cxdelvJ gCkTOVkSNt2LOd8LJJuqM glCfLgZWX9XxQ2CWV5nFO viP2qbMwvwera tV0nS6HwXBDmdlcbMo71f D1lDjWxZbS0ARzbSzf+SE IIMR8NADDWXEQHVXLxVWE XSF52QH48rHPd y4W0jYN9E7GwYRByyucoh xdjnCC3JGWgDBVpjU74hQ HgHXmgWk5ty0O8e327TUB hEVThsH02Qr8e jNjgMNIksNSNsC7judsqf 6rvqaiqAgTcDRCdIMs5QX x1TBPrpCzfZbOrQTH9MkO 3FHQ7vXPuzA3w bPvzkrlysG8nZuz+MDMvM UGyXGd4CLunhKO+PHRkIH K4wMaeJOgdAESytQ6sWMT fS7i2WeMkKsG0 ZZgfF5LvBSDzfdtmGe22x I9gBaVxVlQ5ZYfmS8Aslh T2HOLgjWLiUUksFGP0V60 ol8U3RMDgGVPo ZEN0pKT3dX9pfEhqlqxlp GVmdDsgdmVydGljYWwtYW rqT693LTGttQrxQtXmGAo wUBLxEV77KD00 tGFvg5T5aRJ4R6BbRLLab bsrbuixoBP3FFBhCSDjqU 07sUXdXXxjXe5yu6J8g61 5NWTtIUMnjS92 Ls9qjRbwZGCjjUDQxB6hg qpzi5cwfoojQuDsNEWoKH r6FAg9DOBtyTrsAkBtEUH 0TcL5LSE5cVLl yU4geZkveeolzP0fGhw+R nZRKAuBPG26UP96iQEju3 Q4nPN7B4DbWCFxegkpxss onRZ4PCMwHSKy mD27sBTzUUlqNi9jb2G9t 308CZOxKHOjzH37Ny1pfD ahVENasOJAiE3eggucm7r vcjogIzAwMDAw LWs3UEj4DTBpcBccElJoZ QT2WlX8QUP6wPMgvF3abG mybhplnN4bJts+D9F2vMI 0aWVudCBpbiBh IEJlZDwvdGQ+WY34jn66T 0ScOqidWtk7RNJrBCL7zS Y9qM6uBDGxCJege5K1gPP 5T1SmehEpyw6i t0yzZEAzDRtvK85meREjj 0Y7KHAkjHT0IHOodPfbZx NmgC57Rfs+MRYgdAwhh2T nAfhmf4qsy3xi cGm1IgCjJOJagjVbhFahB TB0e7WuVs44G79oQVjoLX RoPSIzMCUiIHZhbGlnbj0 hhO8pXg7+PGNv fAI0cYK6aO3nPyUeRiW1R FdxX860RfPbeBXfJtpxk3 nek3czlXm3UqVrOPKjckH vcQtiJZZ8s6Uy Nj76W4HkiBbgb0JrJuo9h e85vBTgb6J2mOW4T8ZnCE DxcljzkTZhaYsiJG9kHSM eaxjcIKVrkP5x MXDoH6k7XvXzLqX3IXysJ 0NzcdM4QZFpjJVnYLDxcC WUhV5hgfscd5vgcfkeFsU qJASdGEk6OTt0 XXHnqYqrYpAqBUH5BsA2A TM2bNVepW1plXecjubwuK 9wOyc+FAq8v4yzcTKiLP1 zgOZ5CZ14YC59 rVSzi6A0sPK8C4NfRPPfz gngqturgGT8CRFzLBHozJ 83Re9qaDpjUk0rRKNvXDN 6OBZqcNOtG6Wx lU3wPsAeGIZhGPJgK1Zfn WIcNPgvK488DIpjMeW6JM KgfeTaZ8MqVXHbrMmtDvC 0j1O4Eu2QVX60 FI48NL27zFUth9F3tXL7V 5XcTSUdeuszjprzuMC9LF DnCOPxfW65Tx5vtAxrJy7 bUHVqAZG3MTBx yEKrO8CmyH1rBtOaYUNjV RNgT4IsuUIuSPjoD180TF uxXuJ4KZJlzpGvG7ZjRTS osJmjTeL2l8Y0 Xf5VOa35PW26ZQ28xIZqd 6F5fML4I0KzKMXvpdiksc dmlSS2QLQtTCOpvU60Bn5 avLpkTg5oFKGr PKK2RPTtaIDdP6OxeJ3uB oWlNJKbMTXpY1OaeUVfYS ovK668PEsjKlR8CPPxpxN mA4KnRLJfuIle GvM3a5G4Xr9VSCysekw7J 3RkPjwvdHI+GY84EDHlUZ 98mASkeURvr0tqwJs6KcE uKLQfKYB1rNhe PSd (more content not included)... [facility] Provider Orderson 01-08-2024 Provider Orders [id number] #1.00OTGTIFF [facility] Consent Formson 01-06-2024 Consent Forms [id number]#1. 00OTGTIFF [facility] Stress Teston 01-06-2024 Stress Test [id number]#1 .[email or web address] [facility] CV Stress ECGon 01-05-2024 CV Stress [...] MD 01/05/24 11:24 a Technologist: BRENDAN Lion [facility] Coding Summaryon 12-29-2023 Coding Summary HTMLBase 64 SyghyhowQDd9aNy+PGhlY WQ+XO8ZTZUvG15bnHYmjQ 6xL6NOYIsWQrlhDCQAUEu MSxNzfhOwPK1qgGQcYAIe IC8+CO1vMAPbLfhkpJXbj 4N2kOZ7M47zob9bQApgmN U9PGLxCcLxtxlaz5yukZv 6IDcuNmluOyBt UPIuxG04EXA7xY45Ce65n HNjaHVcz7fgdTm3CqDhOW KmEXD5mJfvMKbwl4BtHAM kE64bjWEzn0N2 IAXxdXvfjFDkEzBjpSH4q Q0bWMuewrhyo7mavqxfGg a6ha00kHCxx2I5tSW7N8N naqM8QQEojWKc ZfufzFPEwI8iiestw0klp yauUrRoCTAjCSp2ZBs7WJ JgmEupUpEoFQ03MBJ6DCV flbAxC5TmOIVb aPihJxZ3j1Q2Zd3UZ7IUY geiZ6DNLCBEJNfpcEM+PC 28mx28O9IvUegiLme2LKC bUZT5uBX3wD5l DKAgAOgoy1Y9jRI1A8Gkx hFjyt4dv7onCFCsFTjlR6 8ooXKnv1T4PYHqxKA9TCY hvNriFpLbnZ77 Oyc+WEPenGlhv0FsVljqg 5sqi8tlfYo5ImopNLYdav QjuMpyNQC7x8AlWh2oZIQ sfXL1cLS2rX4y BjKrSjJ4IZkwP772YhBgu KMsYnsqR09eL4WzqDT+PH ZqOrv1WAWxvRhhAL3cZ0W hZGRpbmctbGVm oCbpRV0uBCKqjaocUBZva J6qDYQkW6z6CbFcVwO5QN llU5RnZJIgrkeyFr58tL9 qXrUyCuA7QWln S8CnxqX0TREwyPIwVWuzO NC2Z84im6O0FIEdLTDiCV R8cWJ2hV5qxCwjmjprrKC mdDsgdmVydGlj ARvpWSyfY836RPHuwTgqO kNvZGluZyBEYXRlOiAgMT AvMTQvMjAyNDwvdGQ+PHR xBYN1wGvnBAMz gWLdWLpnEv4dzAsylZdlP X7zTERepivaEROmkO7hYJ UgoTLpbMuaQW5dDJYivzz qn061DvSfSJN7 QMNrxQRtM6XsrK7jRqJhU MGqPFStC8HixDYuQZjmI8 24EHdoBkJ3GTZpbgFcV1C sLWFsaWduOiB0 v1O5Qq0Ml9AioxqeP0Hpm SXdUaNzPwsqNNm9Y7HlMc wvdHI+SR63FJXsFR88LLq 0DVX1xBshAIfp EDUeM7HypI3tOlDnGWEsI GRkOyc+PHRhYmxlIHdpZH RoPScxMDAlJyBzdHlsZT0 cXy8fGMRdAYNi bNnqcHIhSyIli3uwPAMfK GcbMF8dcZywN4WvsDN4VT Oid6i6Fm68Z32sF6JygOZ +FALmlXJ7hUC4 eZ2yQwNeYuU9RWcbX768H jFnbRWzTuufs6clf1kkjH c9EiB6UIVwrmYsuVmcJMQ 9i8LuEn01L79j IHdpZHRoPSIxNSUiIHZhb Pxpdx3anW0gRi8+PGNvbC P8xGN2nP8wJsNvKtU7GTr uG778FsWiqRTy Sbanx8pls4cepEo8FfRuM TCjffEcuUjuZCZ6a7RhOc 97Y4RhiWquw5YpFxl7dm6 3sHPhl3F3lNH0 I7QyJTDqyvwhfNXyhIwrB X6kLYFjkqyeOJTjrS2sAC CrZ1b3EuFlSlX5UQoqM5Z xboV7TALxpDOn CVJthXPLoH8kaymmy2ngu agaRiDuCJEtELy1WXm9VL VwtEniIoQlYPY5VyH8GBQ 3nBOyhN7unOob hpfrxV4kWyq+XWS2cBWre PLCEC7jAuxyjPF+PHRkIH I3fHgbFKmpOGRbyV8tUDO rA4w7TmHtIbC9 AFqbU1ZezyH2BWQjgBCzO DTpuGRCtW3odkdij6xguu xnGlGiRCAgKTk6YRi7SCG saWduOiBsZWZ0 QrH2KOA8iCLmsF7pjChqb owgdM4iGcl+QmlydGggRG L0NEf0G4TcKwe0LUYyxSe uHG0lcZVzZCob Xj7ayIjzbCruCB1oLZXrt asjo771EzWdb1qyPZUkvF KgODeiMPB7B91zc3L5BAD hWQHgWKG3kIR4 cK3qjWvsjfqnsWXryPpqp lBwvSaeCXqtIFjnC267XN NdqQjdPbIjCFt6M5UrXol 7KAEqaLntCV2i pNGcHUnjRz4hcVymfObpP A7kKJEnmossa260XpIec2 qjTQMjbSIcWBwgJDU2S74 lc6C9DPOgMOIv XJR0dKW1uL2qdAgurhoor GVmdDsgdmVydGljYWwtYW coT451ZNHgvPlyAaAuuOs 7E2SeLio8SETm wHbqAQ6jnXMqCAxlVo0sh PidkKdwUC0nDBEkamrwe7 80PxSko5gmBUKbrFOyNOa sURE4C05zz1F0 APYpQTMsLHY5fIS5fX0gi GlnbjogbGVmdDsgdmVydG ooLQetUWixF417KOEdzXl nPlBhdGllbnQg BAycWRb1Q4YbIklshGG+P M38HVEnQP77zKHphHOgx8 qokLh4DeHrNIWkWYL6fAi oWMzjl2LwTAYt S41cqGOkx9O1LZUzaRqwc ZRzQeDgaUH2kZ1kFNpmhc jee5igprbqJhvic0yypj6 8bR19C34zISag ZHRoPSIzMCUiIHZhbGlnb q7ddZ0gZs5+HEEssGD6hK P1sV1mOAJvFnL1UGrpM82 9InRvcCIvPjxj y1vhx2lkwGg1UyJ6HSQbb vVlgVrrMZB4n8NjTg98L2 9sIHdpZHRoPSIyMCUiIHZ tiSzwea2bnZ0e Ii8+NMMczLK9oEB8uD7sN kHfEwM9UBpoV624WsTwoZ IvWxsvY09fP3GayZP+PHR fTxu7BEYbjEre AV1rxPOnQEqwZi0zFAV6S vHdPpHiYEaiP1CkQFHeae gqrejeaCB4HJClTRMavL2 5Es1uxAhaZINw pVSAjG1onsonu3ikuettS eBsSWPbKJc1URj9LWFbzF fwEcKsHZU0OqS1JRO3zWD plP7pzVuiphcs rP3tT7KnSMNosnaoEq69d N5uCvQwQbZ2DLmdPyg+SE HZYR3IAETLXKGVHMAgZMR SXU17BX61tQNl z8N8zRB5J4CsRZCylfcex zkylDJ9CRRuQKGnvM57kA XsRYabLy1gb1W8y235ZFQ yJNIenD84Bo3v hQarFCDcrBKOlN9bytrmb 1eqqlxnVvFlYHKbFXt6HB o9UJArnJrlDqUvGZO2LkB 6XFY1kXSapR6j dUchcaovxT7mAsv+MDMvM KCfSWf3VVbowHS+PHRkIH A8sYisEDivFIUkyB9mZBH hY9g9EtZjFpO0 QXggF7JkZOQdrdvzBz47e O0rWjWtXyR0WHbfR7Ezzz Q3QBNxgSNyHEqiGQY5U85 fh8S7DVXwHZEt PSW7iNE0mZ8qdJvoquqbr GVmdDsgdmVydGljYWwtYW ybM972QRLauMwmOuUbDIx oKWYeTD44ZL36 oDMkj9J8yHJ9Q8XtQFVwp lzxiywhrTV2RIQzLOYogV 42rTIpWDutDf2ew4Z4l42 6MLTjTAUleT25 Vb7bsUzdQYLmkUFBvI2st ypzo4umajvhYzUmOZAzOO y3RFl2KBVhkEpmKdRgOGF 6CqQ7SDD6xVPn wO2ssYirpcbonT0fPgr+R bJDVVuJLS19FS95kTKop2 E3sXS5T7SxXYZdbvwbwnt fpYW8BLJqZZSx wS69tUYsEHkbMr2qn5J2n 415HXMbKZOecS04Hn6ujW fuLTIjxTTKzD3xhlyzy3c vcjogIzAwMDAw SZh6WPc9ETNkjEgeSoUzD LO7YeQ3ZDH7mMTjoY3swN gionghkX0zRdf+WGQ1ONX 9fnatocp1M3Fw PjwvdHI+EE44ABTwXU59t NHckQCcz8dwbNg6SyEuUM JnJQR5kSvnTLdfr3EkOTD qN98arTVgw3V7 ITIefClfrSKaWiAskXK3g M5uTHkhcldhi0fmcjeaAg fep7cmhs03uL35E05ySNq pZHRoPSIzMCUi PEWmqPzekw6awR8kCb9+P RZyeHF5mOG1uZ0iWyPjYz J6FTdlW036UxIlgGTuEay xe7hzg2uzeNe4 BqWtYMGajyNbaNciDCV3d 6AdVd66Q21mSEqvOBAnQW YyAFHpWYLncYygyb5oqU9 wIi8+EY0hc9ig te84vE77hMJ+FPPlBIS3c ChiQZqmYHLpsZ2uGEgxDh J7ETPaWtFvsY10jJFsAXd iWh9gcFkgpIox IQ6zWMVltmtpc910QxWun 8phJORohINdPUyjRSK6F5 7vh8Q3PPFgFNKrZYV8zBI 7eT8ayHjxxjfu bGVmdDsgdmVydGljYWwtY MrkA378NVJsfHxgYhFlvC KzW2lhveILBV3xWuqkxQO +ESEkHWY4jXcs QVwdDUQbfO6bMFJoC7d4X qHdOiI5RPbfB0NjxsC8HP RnhGYkUSGplXTNsE2hpbn lc5ksrlhrWlXi CAEyLFj7RNg5FFZncCtdZ nCrMFH4IcI5WXK3zQBgmF 6mvAjivrcfhX5pPae+Rkl OOjwvdGQ+PHRk RAJ4gCwhAImqGVMyjX8rF ANmS5w7XyUbDxK5NYziU8 SghiG9SETdxONbFGZdyHB MtC9mbatgw7up svuqYpXdJPLhWNv8YRh8A ETcbBkmFwCdLGN5VvX2AE R4oBBsuD7hqVlehgcoxN5 wOyc+TVJOOjwv dGQ+GHTiTHR3yJbdUAlpQ VEehB5vFCOeF8x9SfYhMc E9KHtcX5RyfyM7EWVmjHJ zGVVuhURRuX8d qudep7xwquqeZuFsJMQvJ Hh5QTb1IWIhpDifStBeBR Y4UjZ4QIP0zHVjzZ5naIm asmylgS5kUwo+ OKN9DSU4EF85CY40K8XtA jwvdGFibGU+PHRhYmxlIH dpZHRoPScxMDAlJyBzdHl iNW9gDe8qGOBi LWN (more content not included)... [facility] Provider Orderson 12-29-2023 Provider Orders [id number]#1 .00OTGTIFF [facility] Progress Note - Nurseon 12-15 Progress [...] 12/26/2023 10:51 EDT] Sohail MATA, Felicia Love [facility] Consent Formson 12-15-2023 Consent Forms [id number]#1. 00OTGTIFF [facility] Inpatient Patient Summaryon 12-12-2023 Inpatient Patient Summary [facility] [address] [id number] Patient Discharge Instructions Name: CHINMAY KNIGHT : 1975 Patient Address: [address] [address] Primary Care Provider: Name: Provider, Stewart Phone: After you are discharged if you find you have any questions, please, call [phone] ext [phone] to speak to a nurse. Discharge Diagnosis: Prescription Information: If you have been given a prescription for narcotics, seek immediate medical attention if you have any difficulty breathing or any sudden status changes such as confusion and sleepiness. If you or anyone you know is experiencing suicidal thoughts, mental health, alcohol and/or drug addiction problems; contact the [facility] 07/10 Crisis Hotline -Text 4HUDQ zt 659531. If you received any narcotics, sedation, or [...] business decisions or sign any legal documents [facility] would like to thank you for allowing [...] Comment: Dallin (more content not included)... Normal [facility] MAGR Intraoperative Recordon 12-12-2023 MAGR Intraoperative Record MAGR Intra-Op Record Summary Primary Physician: MURALI WATERMAN MD Finalized Date/Time: 12/12/23 12:39:40 Pt. Name: CHINMAY KNIGHT/Sex: 1975 FEMALE Med Rec #: [id number] Physician: MURALI WATERMAN MD Financial #: [id number] Pt. Type: D Room/Bed: / Admit/Disch: 12/12/23 [...] Heintschel, Sara L RT (R) Role Performed Installer Technician Installer Technician Radiographer Technologist Time In 12/12/23 12:31:00 12/12/23 12:31:00 12/12/23 12:31:00 Time Out 12/12/23 12:39:00 12/12/23 12:39:00 12/12/23 12:39:00 Procedure Medial Branch Medial Branch Medial Branch Block(Bilateral) Block(Bilateral) Block(Bilateral) Last Modified By: Catalina RN, Crissy Arnold RN, Crissy Arnold RN, Crissy 12/12/23 12:39:37 12/12/23 12:39:37 12/12/23 12:39:37 Entry 4 Entry 5 Entry 6 Case Attendee Georgina Rodriguez RT (R) Aaron Dias THOMAS F MD Role Performed Radiographer Technologist Scrub Personnel Surgeon - Primary Time In [...] Diaz RT (R) M CT Role Performed Installer Technician Installer Technician Radiographer Technologist Time In 12/12/23 12:31:00 12/12/23 12:31:00 12/12/23 [...] RN 12/12/23 12:33 (more content not included)... [facility] Preoperative [facility] MAGR Pre-Op Record Summary Primary Physician: MURALI WATERMAN MD Finalized Date/Time: 12/12/23 12:51:12 Pt. Name: CHINMAY KNIGHT MAE /Sex: 1975 FEMALE Med Rec #: [id number] Physician: MURALI WATERMAN MD Financial #: [id number] Pt. Type: D Room/Bed: / Admit/Disch: 12/12/23 [...] By: Megan Hamlin RN 12/12/23 12:51 Normal [facility] POCT Glucose Levelon 024 Glucose [Mass/Vol] 137 mg/dL High 74-118 [facility] Comment on above: Result Comment: OPR_ ID=[email or web address],TGC FLAG = False,Meter:[id number] Charge Nurse:[id number] Ager Jacey Performed By: #### [id number] ####[facility] (DEFAULT)[address] [place] [address] Patient Handouton 12-12-2023 Patient Handout Normal [facility] Capillary blood glucose melissa urement by glucometer (mass/volume)Ordered By: Natalie Garcia on 12-09-2023 Glucose [Mass/Vol] 137 mg/dL Normal [facility] Comment on above: Random Glucose Refer ence Range is dependent on time and content of last meal. Glucose of more than 200 mg/dL in a nonstressed, ambulatory subject supports the diagnosis of Diabetes Mellitus. Result Comment: [place] Glucose Reference Range is dependent on time and content of last meal. Glucose of more than 200 mg/dL in a nonstressed, ambulatory subject supports the diagnosis of Diabetes Mellitus. Performed By: #### G LULS #### Point of Care testing , Glucose Poct Glucometerson 0 12-09-2023 Commemt1 Glu2: Cleaned Meter Normal [facility] Comment on above: Result Comment: PERF ORMED BY: [facility] [address] [place] [address] PATHOLOGIST HYDRAULIC STRAINER OPERATOR CASSIDY LEONARDO M.D. Performed By: #### G LULS #### Point of Care testing , [place] 12-09-2023 L Specimen: [id number] Received: 12/09/23-1640 Status: SOUT Req Num: [id number] Spec Type: Surgical Subm Dr: Natalie Garcia, DO Tissues: A Colon Biopsy (SIGMOID POLYPS) Procedures: HE/2, Gross/Micro L4 Age/ Patient Sex Location Account Attending Physician Chinmay Knight 48/F [id number] Natalie Garcia DO SPEC NUM: [id number] RECD: 12/09/23 STATUS: MAXCynthia OLSON NUM: [id number] ANGUS: 12/09/23 [facility] DR: Natalie Garcia DO ENTERED: 12/09/23 [facility] DR: SPEC TYPE: Surgical DEPT: S ENTERED BY: [id number] RECV BY: [id number] ORDERED: HE/2, Gross/Micro L4 ORDERED: HE/2, Gross/Micro [...] Description Microscopic examination is performed. CPT Codes 95424 -------- -------- Specimen: [id number] Received: 12/09/23 Status: LILIANA Kayy Num: [id number] Spec Type: Surgical Subm Dr: Natalie Garcia DO Tissues: A Colon Biopsy (SIGMOID POLYPS) Procedures: HE/2, Gross/Micro L4 -------- Patient: Chinmay Knight [id number] (Continued) -------- Signed (signature on file) Jeremy Spencer MD 12/15/23 1447 Normal [facility] No Panel InformationOrdered By: Natalie Garcia on 12-09-2023 Bedside Glucose Comment Glu2: cleaned meter [facility] Consent Formson 12-04-2023 Consent Forms [id number]#[facility]. [facility] Agreem entson 12-04-2023 Controlled Substances Agreements [id number]#1 [facility] Outside Recordson 12-04-2023 Outside Records [id number]#1. [facility] - Provideron 0 12-04-2023 Progress Note - Provider [id number]#[facility]. [facility] 12-03-2023 Coding Summary HTMLBase 64 PujrepcdASf6wGo+PGhlY WQ+BO9ZONQsV34qlLWjbW 6dJ4EPLZsKLaakNTUHFRb EBxVtxhIaLZ1beZSrSBRk IC8+TD6sHUWrDkdmeBZyo 6M8lPN1Z05svi8lWHrziB R0QYHzSsXwhhtnn5vuyMq 6IDcuNmluOyBt VWCmvH45ERJ7eK53Qy99z NNelFQte6jbeFl4IdGdFA VtKUH0tOndXWyor2OaTLX qO74umSFkt0T8 SBQysOpscIWnHxZgwTX5v H8mIYbgjxfyw9qvneexGk m9la59sAAvv4F0lPF6G9S tuhO2HNQtwOBv IiifqLKFpO8fmpobi6bgw wqrOpEyHKYaOKp1UEq6HQ TxgYefBhQfSM63AVR3HHN hsiDcQ5DhFTWx pOaaMzO4m1H2Ri3EW1ZYY gtkO7IRVHSBHQgydGU+PC 62wx27O6IxCbhzLkk4VUV qYHJ7qJV2iD9y FSYoROplz2L8mGI7Z9Bvr lZnom4fd9wmFOSeKPboK1 9ybAIuy8Q5GBOndXO6XXD pnWnpIpMfkG10 Oyc+OLTipLgax9TjLgqsu 4rsm5xmrRm2JjwvPDSsdh IccImtRAO8i7ZbYg5aDKR gjVG6oIC2uQ5k YzRdCqJ5LWerT876CrZkd PMbDglkM84zH0LwpWV+PH DkTew9WHPptVniNH1jP4E hZGRpbmctbGVm mPmrBM8sFDZgncqfHNJti U7pBSZyX9e0JrViIyA4JK mzG1LuFIXhufeoBk29xA0 iAwLxDiT9WYzv J9EeffP1JWEtwEIiLDhkN CO3F73mu6I0VQEuZATsFS R1nMJ2sJ6qjJnkxirrdND mdDsgdmVydGlj XAbeWKskP491EIWvmXcyH kNvZGluZyBEYXRlOiAgMD kvMTgvMjAyNDwvdGQ+PHR uPBE5dRwaLRGt cSVeRBkgVm5otAansDeiJ T9wWRPqlxkbOKVshY3yHA QusUPizQrbKM5lCADysto st506EbAoNLL1 OJXonOHeT1JqxN4dIkDrG LRyPBPxX0VmlVPqEUxxF7 67KOrgXpG3ZEEgsuFeW2H sLWFsaWduOiB0 u0J5Bm8Eb4UthiulZ3Oha XXjYdKgAmftHXy6N4LfDd wvdHI+FU42DAZpIR16YNl 2JKF2fVdjFBsa BBWhH8FvcA6mXqUdNGUzI GRkOyc+PHRhYmxlIHdpZH RoPScxMDAlJyBzdHlsZT0 aYn0yCDMrGJUd uLsqhCOiNaJjy8mgIJVxV IzoDV5haYqnL0AbxJD6DY Tmw6s4Ph97E99xO4KdyTC +EADndVX7cWB0 hG0aNmZyErH1JNpxL342Q cSdvPRwZgssl6vkt4hovB z4EmM3XLBaoaQurUcuHJG 6f2ZrQx68E79t IHdpZHRoPSIxNSUiIHZhb Oqeiq0bcW4bGr3+PGNvbC L7iMO0rA6gCyLzZgW3DVn rA745AzFlvZTl Ilsnt3uvk6vapGz5BrZqH ZTtzzOnjUktHJX6b2FrKr 69G3KhuPgwj1RnQwb6ck1 0iIHek0G3eTY0 L9SpMDAbcypnwBOitBfxZ H8lOWGdkwwnMZMkmW1eLC WsT2s3FxRdJfM5BZuyV6C lyoW7WMDmzQOu SAVnaJAEcA8qugnzr5fkt bqgAoDiFNLdEYr8RWh9VB TifJnbBpNoFUD5VrV5ZEL 0wULagU5eaDip tgtprZ2xUpg+JLI5oARxx UATGJ1yMsoxoKK+PHRkIH T6fJjrNZklRVActF4lTSG sL3s8KtHgVoW1 YDfpB5KixxS6NIVghEZzA QExqSVEzG5mryahb4lxum blYoXrHVLlBZp3WOs3IKY saWduOiBsZWZ0 UyA3GIL1fAOijN3pyUwke pyqpW5pVqs+QmlydGggRG E6WAl5S4LrCvk4PQUgpUv uBF1rxYGjJWbb Is9fuXymkXgzBN8lMVDvl vhfa017UjNex1tqSZXqrM WpYDtyYQC8D41vk4N0OGJ oQWBgFMU9aVH3 yO7lsPpivyawyJVucMdbx lTcoWfpRPeuWAuuF433RJ ZkmTndKhNgCQn4Q6VoBqh 7NDCoqRapXZ3s aCCjXUeuUz1blEjvpPgtN K6rUUPldowwu438KxAij4 htSOCjyLRvDZylUSQ8W14 uh9D3AJQiDOBh NTG2kTT4qL0qzJdeoqnce GVmdDsgdmVydGljYWwtYW npR165ZAOxaHteSfOyrRv 2E3VwQnp3MOIr hRqhLI5uyKStSUeqFv2fw UgngIqcZI8hXYWfnbrvm9 10UhFgu1ljPEGfePNiPWu vOML0J01zv2N7 WYWxVUStHBI3iXG7mW6dn GlnbjogbGVmdDsgdmVydG caWJbhRBpkF731VWXbjVn nPlBhdGllbnQg IAshWNn3C3YaKzlgnVF+P H63TPQcDH21zUXisQOsb0 wlcOc9QfMhZABzPZL4jOq sTJpyx8PpCJGd P60ytQFzi2L2GLRgtTifk NGaNbOqlZQ0qU9fRFjmqj dmg8jhasjtNubaa2kdel8 8kE62A76wWAfe ZHRoPSIzMCUiIHZhbGlnb f5hsA7iGz5+ULFewVI4mW F3lZ4fUQKvCsX1GCiuR23 9InRvcCIvPjxj u5pgp7pniDn8VyC7BHNnq uJniUrlXVJ3z2IiTo39L0 9sIHdpZHRoPSIyMCUiIHZ cdGmynw6coQ1h Ii8+YQCegRN8kSV2kO2bC kAfNgJ0LWtmZ886SeRncL HzXyoqY87zT2VxxFE+PHR xUnd6WPTcvGny WR6xrVScQDlbJv7zOXK0E bXiXkDaTMcbO1EzGRWpbg siduaotLD1LDIoGEUobW8 5Gp3chVxpMFSp fGZOcY4ibtakd8oeqfwyQ pNwICYyETz2ITr6XDRfnC spJwApSGS8VbX7WOC4bXI kqN6pfOaxigob tR2gA9MuDRMkanchZr42q T6bGrLiWkX9VYwkScf+SE ZMZT4QORKYXJZFVGAdRLU IVV86VE47nNCy v6H0nHV3C4DrPGTcvqugv felsSX1IQPgCSZheZ75uM AsCCxhSo3eb3K6d067AXB sPZWzkH08Eb5s iRleRYJpxQKVrQ2okkcaa 9ncxgkxQdRnTYOjLXv3RH d4VDZcnVhkJgUrAXN8XeG 6DEH5bGLwoA1g vQwxhpbqzO9kKjj+MDMvM NEaGCg2RPxfmIG+PHRkIH I0uPjrNWcxHYLpwA1eHTA sC8j9LnNvNqD4 ISguL2MaOJQsgsadPz64a W2qPyBoMwG1DYszB9Hedl K5GXDjaCUzFSeyCWK4S59 aw9F1APRfWKWk RGX9iAL6hJ4euQjjimgou GVmdDsgdmVydGljYWwtYW rxI645JXCkxOmdCwVnOTa lRGJcPN69PY67 jZHzl2F8nZR7W3UeVMLqb weqhkqvpQG6GVHyVYNemG 29uJMbSJyrIg5sf3L5f05 7KBMhNDTeuY38 Sr2enLouAGKbqPOUvD1kl kovb5zyhsifWcKrOWUuTQ u3WOu9CSSpoEngQuQgANM 1FsC4SLT8zOQy oS9llZuivjlqwO8hRzt+R qNKJHrXTW89NL71iXSlq0 Z1dSX7X1XmFGGmghvmkav doCD2XLLcEYDm mK90tJQdURatLo1oz1H9m 402BKWnJQYzaP46Jw3dtL zyTZWnkODIcZ4atzoaz2n vcjogIzAwMDAw BTc1GKt9TDYvvMdwLnZfR KT0MhK1GDX4aGBhlI8jaS sqofmktU0pPwc+V5W3K9E kPjwvdHI+PC90 WXZkLG69gVTdkMAad2aje Sp1JzUgIPAaWYY3cSvoEF xcg1AnFZEqA03mmVBsw6Q 6IGNvbGxhcHNl CcDhdDY3zV4dNHrwypaxs 8bfbsoaPjvox0wcvf18bA 79Z96tCDfzDARtHTEgLUA gPRLfpInaez2g xI9wWa9+TOCmyBA7oAF5n R9gUvAsVkM1BMgvB008Cw ZtjKKxQulzc8pgq2fyaMz 9IjIwJSIgdmFs tZxeAJO4n2ZwAr34K46iY HdpZHRoPSIyMCUiIHZhbG dueu5pyW0fRt2+KD0ib8l ppq28nW35pAZ+ BWDqFZH4pYafVAdaYPYmp O6qEHgbWwI4SDFyQvVpjF 89nRMwQByjIq8rlFzlrYa eHT2bRHBwvkca z176YsMrf6ahJNCgmJFjP IqiCQD0Z99vi3J5WZFpSG EpWFC6zWV2yO5nbWmdojg gbGVmdDsgdmVy lHdtHEeqLZneW396LQOgn DpvTvVnmGHuW3qcxwVUWV 1lOjwvdGQ+KQNcLTU5zJq gARkkBCPcsQ8f OVEzF0u0UhLiYzU2SMahR 0NnxdI0ZEKkpKFfDHVohZ DWnC8covmhj5gxdokzFsA jDUGoHGs5SNe4 TBDwmHyyEqNwLFO5CzX6T MN3rLAyqP4waPpuvmtopO 9wOyc+RklOOjwvdGQ+PHR aUPK9qCfxKXdw OMQbaI7fPKXvS7n5KkAoZ xM2QBdmD1OpmaI0VJCbzD KqUNFhbVLVqS2aifcav9u vcjogIzAwMDAw XBv1KXy0XIZrvPzhRyEfC OP0YiK1JFS1rMWnfA6buK ynxpbdxZ4xPcq+TVJOOjw vdGQ+PHRkIHN0 aKmgXSzsRWLtjG8mDUNfP 4j2AhPkUyS7QPjbC5Ijqa U7AHYucBKpGGLccIDKdN5 gnvdwn8joavsw OxEnVQGsNXx3OOf5ZKPel OutAnZgLMU1EyF5GSC9fY VbcD5muJiajdxyyG4oKfr +VKB9JXH0PB76 IZ40M8InObfepVJtmZZ+P HRhYmxlIHdpZHRoPScxMD XrXxUhnXlaLP1bQc9xSLY yLWNvbGxhcHNl OiB (more content not included)... [facility] Coding Summaryon 09-15-2023 Coding Summary HTMLBase 64 FupzocaxVOc4zVd+PGhlY WQ+VX8VXPFeV35ytBZzpP 5bL1MLVHjOQewfWHZRFAl RVjWehxLrMX0ghVMjZKQx IC8+JD2aNAQcRzqboHKqs 1T9jTY2R98bxw8aGQhvqR Q8JCXyEsBbdppps5rmfYq 6IDcuNmluOyBt RSVmuF79TVK8fP89Fd41g FZldXDbi9fxwZc2CaDsWF MxQAI9tJfbPArtp0YgCQV bQ77kiLCsu1D6 LAJdmVmocLReQgLoeNZ1l H6bCKzemytdq5hjcfnpAp w7gx34kDXwr9T0xMB0Q6N kpbF7GJSrqNWq IcemyUQCnB2owgdki8ypd piyHeJyXEFcZCt5QVc0MJ UhnGpvZsZdLF52RGJ8VHV qjhWgI2KoKWMu iVxmHbY7b7F0Ye6OA9GTN gmlP0RGSUTKBWvinVT+PC 52io93Y1KiIrqhFyr5HYT mDAS0kFM8cM9q AKUjSBhpk4N2aUO8Q9Vvt xXuyn9qk9pwCQHsCZmnR3 1dgAXas5Z1HGRboWJ1SBQ atKtwLwZciD73 Oyc+IXEjnIjxl7CgXthhp 4crp8claAz3QxapWRStbx XbwJwgJEI6u3MsPn5oRWP bkLP2eYJ9fF2h QrTcPeS4TEnhG876RwMoo LLvKisbH69wS4ZqbII+PH VyKwg0FJDenZxnIK0vI8X hZGRpbmctbGVm vZlaWX1vZIVhrjjrSTGmx G1vBQDzF2x1MlTiAuL2EI aeP7OoJSTdrapuEi81cW8 dEzPsHeA9QHjw Z0QjosI2AHVkjUFbKSzdV FI3Q56hy8K8UWYdHFGdNY Y2bEQ7iF6nmJxovbmfdSH mdDsgdmVydGlj UHecDKnfZ486YDQgeIqlY kNvZGluZyBEYXRlOiAgMD cvMDEvMjAyNDwvdGQ+PHR hTDK1dLryBAOz jGMtCXixXf9edWnpsVxcT S4vHYSpfclgWMSbqA6jZM ImdCCejKctBO1hSKAnfdv yu922HpLfLZQ1 UJBdaSNkJ2JblQ2qDqElQ ZSqGZBiE6XshROeMHjyU4 82BCtcXhX5EKOetaEoU5J sLWFsaWduOiB0 t3A9Ip6Uf8RgworyF1Mwy CIcAyMoZzvjLYr1P8DlEu wvdHI+PL94KNNnOP14EKj 2VLU3lQcoDPsk ILStU1UuhB5kGkByMLFyT GRkOyc+PHRhYmxlIHdpZH RoPScxMDAlJyBzdHlsZT0 wOm2jEXQtYHBq eWeazXYuLiIbd4tiEGAdX GmyQH4jsCqbY2JdbFY1LX Eyv5y3Nh00V10uB1SvtGB +VREfnGV0yCC5 wO2cZnAaHcA7CCgbK979A rVyjFFoOxbzu3hdl7ntgX m9JeM8SMGyyaJkgVeiKVQ 5b4BgUw73P53t IHdpZHRoPSIxNSUiIHZhb Ldngc3ofU2aXr4+PGNvbC C0nTS0hK0yIwMbMjM4HUo nI201GgOxbQWa Xotnx6egt9fjbWj8GmLjG FMzygGdvYsmTUN3f4LuFw 06P0AraKdmb0RaEgx4gc9 0fJXne8V5iKA3 M0BxCMWhfkinuQCauNrrX X4mZCWnsnxhEGSbcZ9rLG BiA0z1CjVfJbI3BYkiM7N htcZ7DPOiwQIw LSMzwJAWtA5fgqtqh9msr ibfKrUhVPEgDIt4QPi9VT VjcWcvXhFzGRK1HaP5KPI 1wDIleQ8cnWwk bjvxaA8wBzp+GZQ1uARmr OIBTI5fZxiemHC+PHRkIH R2oFiuJSglKUWenD1iGOE nW3b6XvWpIdL6 TKgjJ0NeycM0TFOyjMOeC PDkkPZVdF9amsccx8ntps hiJgJpFDAfBHh1APi0ARA saWduOiBsZWZ0 EtH8DDX9bQFmvH8frKmie wruuY8mUrk+QmlydGggRG G8UWe5N7UsWot1TRExhLi hWN7dlUOuBJnz Gd3peAddfFwwSD2xJJXdt otnb843CyPhq1qvQMCnqM HfIKubLPD8A12qr7D3QWY gAEZeEXL7xXC5 mO6rmArqfgkqaPZehYewp oCvhCrdIWxiACxyL644PK JytNhrKrWfCRa5W3StEzh 4UTBzpQmaYB1m aTGzAUktTc1xbZmbkBbvO P4iCXKbajbwp221CtUts8 bxDUShiPMbKVtkNBY6H73 ry9U6PETdZPEu YNB3kPJ4hA9hlAiikiasr GVmdDsgdmVydGljYWwtYW uiS337NYXyzSvdZlDbpTq 7Z7QoLtl2LVQh mWuhRO2ioSBjUYmbSy3lk AqemNggUM4mKQZrsprzn5 83SbNjc2msDFJfjSTvNRg xYDJ6Z21oe2I3 BCXlILFpELZ9bEW7rT9dj GlnbjogbGVmdDsgdmVydG cxKEarCOeaJ390RKRliWf nPlBhdGllbnQg DQxmZLr2V7CoYtbskNT+P B01QCAgIT68bFJotAUdh0 vswLt2XhAvVNVfLCI8kKd wVLwgk1CiDSSb C98jgVYly7P0NWZbiPcod GQiRcLiaFR3lP9fGVxqxr hjn4rmkqyxBauym4ykmv2 7lG56I34fSBtb ZHRoPSIzMCUiIHZhbGlnb m6hmI3nMq7+ZFEwhVX2sR D2nL3wNMApRtW3OTjpR56 9InRvcCIvPjxj u2kze9bezQe5VlT8LCPcy pVpbMhnVBQ8z8MpLf14M8 9sIHdpZHRoPSIyMCUiIHZ dwAmtwb8urT6z Ii8+MOFagXR8lOB2oK8fS kRzFaB9MQfsC478YzKgcH WzUcrqD90aU3GpoFI+PHR jBpa8TRYztUta MP6fdLJjXIyoQa6lQYV3B fIsPyXdEDklS7UxVPOhba brxfewzCE7SKUvTIAtwS3 8Zs4gxQwzAZDj rPYTyC8xhvqlk8ywfestF mMuXXGvSXb5ZMk3QJCbaH dwJjEbKUL0PcL9QLE9fCO odR4icVlxqvoy cT3yO2HnUELkbtykEf56h P8xYbSaIcV8QMcsTkg+SE TOSM3FAOWDDNIIBFXcGJQ INY80JF91fFEv b8S7jOP2I0ZxMUDfbecxr phcmZW4HJHbKISxoF25qX VeZCiaFy3lo4W6t358MDV tUFNmcY67Mm6i cLewIKWboRRTiH1aqqken 9vuhnklDeJfRYUrHLt8BW w3MHJtjRyuDpYkDEU0TbP 5KBM0zPEyhC6q sHxvnlptsY1jCkk+MDMvM HVqDMk3SCsszNQ+PHRkIH F1zKvpJAmsPHObgU9cLCV nW6u8XbWeElW3 ILgjQ8HqJYQnmbhjUr80r Z9oTjSjSpB5LXbgP1Henu B0VUVkaAEeTMtuGZS5M55 xx3A7SUEqYSTf QTK8oSZ3oU4yxSgcbnfrv GVmdDsgdmVydGljYWwtYW uwQ930NCPixGswHcHiDJc aREZvVC40NG57 hKYhv2N4eUF2S7ObAATfl hhkgxihcVU0DROaEGIkvZ 83iTDlSYrjSq8mh8H8u77 1HDSwXUZxjF26 Yq7akUefQCPerUDLsO1xy sgxh5knmhzwDyFwIASsSA p7AKt7KXEsoFbaHoIjAVC 6XzU5BTU3pVAg bN3joXrduxibvQ3lRdv+R hGPEBtBHG41YQ26jKMwt3 V7xVZ1T3ApIMFnxkxbmde vzYN4ZORoWGYg jR49kPCeWHqwWn5it8A3f 226CKFhAWTrgE29Rc9dcJ niKWVgtVBJpB1wthppz5w vcjogIzAwMDAw LAx6HHs0HZAhcIwoAcWoM SI8NwU7JJN3iFDunD9wnV qpdtkhxP2aBtx+F6G1A1L kPjwvdHI+PC90 ATYdJB09vAGivFSkp3fan Bx7ZbNnVWHqJYZ5lDcmTR hkh8ClCURxR70teKLdb4S 6IGNvbGxhcHNl ZjKsvRG2qR1bHEnqjhwep 3agycahXaffm3slny70mG 70L14nHUfkYJCcRHNrIZE yOGRcaFolrc4w tF2kXh8+MMVacOF9sDP4h M6cUwHoDfM6FLijW422Wf QklHAsTstsv0uft8jrcCq 9IjIwJSIgdmFs wJinTTH0i9BfRh59J49iN HdpZHRoPSIyMCUiIHZhbG wxsn0rjC4bRk8+KG2wd8v wyx54oR60qZS+ JJEgXUK7zTtxQIruMUAzz E3fSEnlGoK0TIOpBkEvsW 04uFXmDNrqGh6taKoixDm fUB7hYPZrkykn b262MgXtg1wmYAUyxKVnB BlvKZO0I83mq1J8QLIzZS JcMTZ3xJA3uN6ydWgipwt gbGVmdDsgdmVy nEpgGJwhCKizD257ATYqv HjvCaVruQXgH7lclvRBSN 1lOjwvdGQ+CQNpLXZ9jQc lAOjmBFBwxD2q JBKmS6b6JkBmUiK0JAwpK 7ClloX7UWIkqLVpINOtbP HWjG5rcwnfk0tenvwzUbE dTSDcWQb7QUz6 VADqaRyrRwHpPRJ1RmB2H ZG5uMIeeJ0ulGszsidipC 9wOyc+RklOOjwvdGQ+PHR mTVX7hYtgVUgv ZHWbdC8zVZNnQ6x9OdOuP oZ0HOeuM7BioyE7ROSigU MhOOSolUDNjT1vlcufo3s vcjogIzAwMDAw RAq3TQt2UWArePyfPsSmB UP6JnO9MAT2pHNwjZ7ruL bydrryvB5gIyk+TVJOOjw vdGQ+PHRkIHN0 aAtdSWuwQWMklJ3wXEFiL 4f6ZwPgLpT0LWqsN9Npwh S8UBGqkWIuPLVniFNIlB6 buygvt2uepujd OmRdNRBcVNz0GEr2LVXru EcyLdZcBVK7EqB4IUA8sL TzbI7iwFpkywipyA9vJla +[id number] CC53V1PlRymceLHeoOS+P HRhYmxlIHdpZHRoPScxMD RkLcLawVeuWN2yBn1yRSB yLWNvbGxhcHNl OiB (more content not included)... Normal [facility] C Urineon 09-03-2023 C Urine Urine Culture ordere d as a result of parameters set on specific urine dip and urine microsopic results. Mixed skin, or urogenital wally. Clinically insignificant Normal [facility] Comment on above: Performed By: #### 5 [id number] ####[facility] (DEFAULT)[address] [place] [address] ED Clinical Summaryon 2023 ED Clinical Summary [facility] ? Urgent Care [address] [place] [address] Clinical Summary PERSON INFORMATION Name: CHINMAY KNIGHT Age: 48 Years Sex: FEMALE : 1975 MRN: Acct#: Visit Reason: UC - Genital Itching/Lesions; UC - Urinary Frequency; GENITAL ITCHINESS Arrival: 09/01/2023 14:44:59 Discharge: 09/01/2023 15:34:00 LOS: 000 00:50 Check In: 09/01/2023 14:44:59 Checkout: 09/01/2023 15:34:00 Address: [address] [address] PCP: Provider, None PROVIDER INFORMATION Provider Role [...] verbalizes understanding of instructions given Comment: Normal [facility] ED Patient Summaryon 024 ED Patient Summary [facility] ? Urgent Care [address] [place] [address] PATIENT DISCHARGE INSTRUCTIONS Patient Information Name: CHINMAY KNIGHT Age: 48 Years Date of : 1975 [facility]: [id number] Reason For Visit: UC - Genital Itching/Lesions; [...] is treated with medicine. Medicines may be jujv-fjb-yfuawjn or prescription. You may be told to use one or more of the following: ? Medicine that is taken by mouth (orally). ? Medicine that is applied as a cream (topically). ? Medicine that is inserted directly into the vagina (suppository). Follow these instructions at home: ? Take or apply htvk-gbq-dxddrns and prescription medicines only as told by [...] is treated with medicine. Medicines may be rowz-mma-xurunsm or prescription. ? Take or apply tqah-ydy-ovqaqcg and prescription medicines only as told by [...] provider. Document Revised: 05/21/2021 Document Reviewed: 05/21/2021 [employer] Patient Education ? 2022 [employer]. Medication In (more content not included)... [facility] UA Edhqx3iy 09-01-2023 UA Bacteria Rare [facility] Comment on above: Order Comment: Urina lysis Microscopic order added on by [employer] Expert Rules system. Performed By: #### 5 [id number] ####[facility] (DEFAULT)[address] [place] [id number] UA RBC 3-5 [facility] Comment on above: Order Comment: Urina lysis Microscopic order added on by [employer] Rules system. Performed By: #### 5 [id number] ####[facility] (DEFAULT)[address] [place] [id number] UA Squam Epi Few [facility] Comment on above: Order Comment: Urina lysis Microscopic order added on by [employer] Rules system. Performed By: #### 5 [id number] ####[facility] (DEFAULT)[address] [place] [id number] UA WBC 25-30 [facility] Comment on above: Order Comment: Urina lysis Microscopic order added on by [employer] Rules system. Performed By: #### 5 [id number] ####[facility] (DEFAULT)[address] [place] [address] UA w Culture if Ind Standard on 09-01-2023 Breakpoint UA [facility] Comment on above: Performed By: #### 5 [id number] ####[facility] (DEFAULT)[address] [place] [address] Color (U) Yellow Normal [facility] Comment on above: Performed By: #### 5 [id number] ####[facility] (DEFAULT)[address] [place] [address] Culture? Indicated Invalid Interpretation Code [facility] Comment on above: Result Comment: Resu lt created by rule GL_MAGR_ADD_UA_CULT Result created by rule GL_MAGR_ADD_UA_CULT Result created by rule GL_MAGR_ADD_UA_CULT1 Result created by rule GL_MAGR_ADD_UA_CULT Performed By: #### 5 [id number], [id number] ####[facility] (DEFAULT)[address] [place] [address] Glucose (U) [Mass/Vol] mg/dL Normal [facility] Comment on above: Performed By: #### 5 [id number], [id number], [id number] ####[facility] (DEFAULT)[address] [place] [address] Ketones Ql (U) Negative Normal [facility] Comment on above: Performed By: #### 5 [id number], [id number], [id number] ####[facility] (DEFAULT)[address] [place] [address] Micro? Indicated Invalid Interpretation Code [facility] Comment on above: Result Comment: Resu lt created by rule GL_MAGR_ADD_UA_MICRO Performed By: #### 5 [id number], [id number], [id number] ####[facility] (DEFAULT)[address] [place] [address] UA Bilirubin Negative Normal [facility] Comment on above: Performed By: #### 5 [id number], [id number], [id number] ####[facility] (DEFAULT)[address] [place] [address] UA Blood Negative Normal NEGATIVE [facility] Comment on above: Performed By: #### 5 [id number], [id number], [id number] ####[facility] (DEFAULT)[address] [place] [address] UA Clarity CLEAR Normal CLEAR [facility] Comment on above: Performed By: #### 5 [id number], [id number], [id number] ####[facility] (DEFAULT)[address] [place] [address] UA Leuk Est SMALL Abnormal NEGATIVE [facility] Comment on above: Performed By: #### 5 [id number], [id number], [id number] ####[facility] (DEFAULT)[address] [place] [address] UA Nitrite Negative Normal NEGATIVE [facility] Comment on above: Performed By: #### 5 [id number], [id number], [id number] ####[facility] (DEFAULT)[address] [place] [address] UA pH 6.0 Normal 5-8 [facility] Comment on above: Performed By: #### 5 [id number], [id number], [id number] ####[facility] (DEFAULT)[address] [place] [address] UA Protein Negative Normal NEGATIVE [facility] Comment on above: Performed By: #### 5 [id number], [id number], [id number] ####[facility] (DEFAULT)[address] [place] [address] UA Spec Grav >=1.030 Normal 1.001-1.035 [facility] Comment on above: Performed By: #### 5 [id number], [id number], [id number] ####[facility] (DEFAULT)[address] [place] [address] UA Urobilinogen 0.2 mg/dL Normal 0.2-1.0 [facility] Comment on above: Performed By: #### 5 [id number], [id number], [id number] ####[facility] (DEFAULT)[address] [place] [address] Urine Source Clean Catch Normal [facility] Comment on above: Performed By: #### 5 [id number], [id number], [id number] ####[facility] (DEFAULT)[address] [place] [address] Urgent Care Rec[facility] 024 Urgent Care Record [facility] ? Urgent Care [address] [place] [address] PATIENT DISCHARGE INSTRUCTIONS Patient Information Name: CHINMAY KNIGHT Age: 48 Years Date of : 1975 Reason For Visit: Itching; GENITAL ITCHINESS Arrival Time: 09/01/2023 14:44:59 Primary Care Physician: Provider, None Attending Physician: Romeo Meneses Comment: Visit Diagnosis: Diagnoses This Visit Abnormal urinalysis (R82.90) Itching ([id number]) Yeast infection of the vagina (B37.31) If [...] and treatment you received today in the [facility] were for an urgent problem and are not intended as complete care. It is important for you to follow up with a doctor, nurse practitioner, or physician?s car rental sales assistant for ongoing care. If your symptoms [...] so we can reach you if necessary. [facility] has provided you with a complete list of medications post discharge. Please inform your tool lathe operator/provider of your visit and for further instruction on these medications. Any specific questions regarding your chronic medications and dosages should be discussed with your primary care physician(s) and/or pharmacist. New Medications [id number], [address], [place] [id number], [phone] fluconazole (Diflucan 150 mg oral tablet) 1 [...] (Inserted Image. Un (more content not included)... [facility] Coding Summaryon 08-21-2023 Coding Summary [facility]Base 64 ZahmqqjvWGc0yTb+PGhlY WQ+ZZ1PIYCgN00nnEHfiR 9sS3TNPCsBPulbJSDDGAq WZqObgkViGR0xeOMpWXXd IC8+YE2uMTXlBytmgCXzx 2H4vPN9R62qyt4nSBnkpN H8YUDxPhUdqcirq9byjXv 6IDcuNmluOyBt ABHqoI37ZVW8sX45Jf44q YNmuMDjz0fvlVf0MjCxKR NiOSG1lHnkQVtns7RjROW vP24peACsi4F1 CRYowJchzDAdLyLkzYL1e H2aSCmexbghs4dedcivYb k7hg72kVLpf3C0yVT1E2L lybD5CHDrgZKb BltmmFRUzY9imitlk5zza psgYcYaKJEfVAg3ZYp8XL QbbYwbNvZsEC49XCT5BJW urfPxH2AeHMIp aKqmXxE6t6Y0Jr2XD4TAQ ujgA2BQQTCWLDdasFA+PC 56wp55H2QqBljuObc1WXD tBTM7kRF4xK2p YATkDClpg9K4kDI0M2Ejo bZavt7bc9tgRXRzYJvzS5 0oyWMhi2H6KKQubHV3TPV riTnpAfMxhN87 Oyc+AGSdbPsyo3KxTeefu 5gdt3mxzZw4UaugRVEibd SbaNczNQB5h1JcOz6tADX tlQM1cJD6cF0x PuOwClN1EJksG622HiKqb AIeXqkpD56uY2OxmTD+PH ZmOdr2RBStmOraLB6rM4E hZGRpbmctbGVm cCpkCB5nMEXbfjzaSWIia F1vOFZhO8l1HfWrJvM2FP qwV3PzZXMstfrfIu39wX6 lAtOcMaH8CZtk Z3ApuxX8JBSoxLPwGEheQ LO7C52fh5I8EKUbPTIiCA O9jFG4tC1kgZjjgbzwqDY mdDsgdmVydGlj VPsqPHzeK394YJRzpSumM kNvZGluZyBEYXRlOiAgMD YvMDYvMjAyNDwvdGQ+PHR eODV8nQtyBSHo lPKpOYbcYw9voIcoiFjuT O8qGWWxnthcHLZhiW8lDJ CfoTEhtYekHQ1pSKDizqv bv264OgEfPIR9 TXLqpQLrF4PpoD8tFjPzG AVpMDHtG4VkvHRjWXsmY4 53SSztSwY5HCNbtoRfF4J sLWFsaWduOiB0 w4J7Xx2Ls4WmuuyyD6Luq VPlZgNwCnvsYEz1P9ZtEw wvdHI+VD79XFDqXH37AUf 5GDH1wZxcAMgi PSKnK5FmeB7wJqZyAPIsJ GRkOyc+PHRhYmxlIHdpZH RoPScxMDAlJyBzdHlsZT0 hRi8uDIXeYPNc pLkmuFYpLrDks9htRNZzI JozNP9bhZowD1HsnBG5QH Hqs9t3Zl11J44iL0SrrHJ +DZJedUT5sOU6 zD5kHtCgUdU2XVoqJ319J xWohRRzYlisu1ecn5dvgB r8FrA3DOPwbjIytBfzQVD 9z1KpCp52V33w IHdpZHRoPSIxNSUiIHZhb Kupjm2cwF3eKp2+PGNvbC O0hDY0bT6jPgZlQmD6PWx nL484IgYezKMs Sylxk5kxw6ycwXr2BbQdO HRhmaTjvHdmZMN0b6RyFm 62V8DgwEqke8OsJso0xo5 3vVMwz6B9sPN7 G2UsRQZqgwkhpWItlQxsA T8vCIOuqiuvRRMmrG7wXN OyO3r3IgGbQoQ9INtuA7L icwD5RUIpzGKt DGWdhLRNmX8cfoiwx5dbf inuXsJaKZWeOXs3LPi5NT KenScpPrRcAOP8IvQ9MCY 0qGNzeI6ihCdm bpeylJ8aGth+CKX3oVVfh ORMHF7vUsfahRX+PHRkIH Y8dFtmCDwjMELrrG5qVWT pR2e1IaKjZgG7 MHctX5GykdQ4UDTxsDDqE OHjtNHCgD6iknqsf4jdwq fyNtGdAXWfVHv2DYb2WDJ saWduOiBsZWZ0 CuX0GSU8hGMlpL8nkXcil xqfgL6tIoq+QmlydGggRG Z9QLy3V1IzMhy4PRChxZl tUA9lqALgJTkb Om1leZnwaAozPL6lBSVdn ohsb062XzTze1vdICUvzR BpACaaCMD7O82jw8P3LFQ uHOCpBVH6wTU6 tO0hjWsannximYMwaGesj yWkhGxsOUptTRzyF912AI YeeLhnPlNrCOj3H3FnYvw 9VFOqyZsrQO3z oDAqCYftPw7etScztLtxC J9kMIVyqtavb410LcAve7 jqTXYtwXCpHDptBAW3Y09 ki1U0JUYxHWVg VOD4fGA6vP7ruLudkgcie GVmdDsgdmVydGljYWwtYW trY117ICGimGirPqDanMp 4W6ApHqx8VGQg iUnzFT5qwZUkSAbjWz2cp CmtfWddUG7vGTVevfyvr1 03WsYxr1tyNEGogEMwFXf pHXX6Y43xr9Q7 ACHhLFVkPNC6lUK7gI7ba GlnbjogbGVmdDsgdmVydG wjRGswOJtjZ674KKGnvXq nPlBhdGllbnQg SYfcXOv7O5TuUljvqTY+P V48JIOiFL14cUScyHGlu1 ljeQa5KdEsWCPhDNR7wQm qWDqmv0CsPLFd J62wjYWbn8O7PBYdgOgjd XIsIcLckRD5sA1jPWcuef foj1gbhyroUrcfq7txez9 3vV22J27kSAar ZHRoPSIzMCUiIHZhbGlnb c0tmD8aYv2+MJRdbDR4eT U5yF6xNIZmLwJ4NLrzH30 9InRvcCIvPjxj o6ysd7lohBn6QbA6AIEgt sDsuFanJWD5d5OkWo98W7 9sIHdpZHRoPSIyMCUiIHZ lcXmfpv9eqA6j Ii8+JAOuxMT8uNB7tY7uQ eZcPmA7LJtvN172JqHdnU BvZebkM34nK6AfzYL+PHR fZhb1SFGecYui CF0vpBAlDZfsWl1fRSJ5S vWvBzRaNAieG5DbUNSsdz rjewjxrBL8VMIeGJRitB2 1Qk3ffFqeQSMv oIJGeP5hrdtxi4zvjzayN oMuBKZpOEd0WNc1PBRmxT wmZkWeDRM5PiN2MDB8zBX arS8gaOrgdnlw mX5tF0GkXDRfrvyfOu36e O9vPnMdHwQ6TOblGho+SE ZCDF1RPBUMQZNLYPNcIQg vdGQ+PHRkIHN0 lEyoXQtbWAWedU6nFQAjP 5w2ZgAgBdV4ZIliA7DxFM FbfmieYk48eY7wVnKbXzD 3YAyjQ8JdhlA6 GPYpiMQnLYooINU6Z80rn 9H0TBLvPMDsDUD6xPS5jU 1hbGlnbjogbGVmdDsgdmV ydGljYWwtYWxp P640PMLwqPyiZcNeOlIpY vH4DpH5F9VfXpt6MZGffO wuJE1vgNXgIWqlVz8knIw ueUcxRZ9wJWVf mqtkSMSnsJ1iHVFzgYJmp EztUA5rJNMzsaeys149Tn XyLYU3YAFhkQFnM4LmoQ0 yOiAjMDAwMDAw X0WfwHTtBIheM143CUlhV nD6SMMascJhH5OlDAEtoH fxYcI4y6D7Gs50HGIAZLR yczwvdGQ+PHRk FQY3lGddCVsnTACikF0aJ LXsK9x4UbDbZzE7DFwmN5 GlGPIujnyxRb54zY8vYqY nVhT8OIozL5Vd fzG4HAEylKJdYFxvWGY7U 88ne1I6RMRwBGUsTEU9yT A8nF1yoGxbrblokVWdsZm gdmVydGljYWwt HOoqH690LLIbqFdiEoFRI UFMRTwvdGQ+FPOqWZN3xT haDKgfGNOvbK1lWDRxI8e 5VoHnKrF3IHmr B4RsMNUcpymxRy58jE0bI tRpPvW5QWvsB2FsmgT8UY BynBCaQRvmJUV3R39wb2T 5CQZmNYEmQIE0 hKN3sQ6kxJpizafcrKAzd DsgdmVydGljYWwtYWxpZ2 56HJOajDvbSfWqLAYaLK2 jeTwvdGQ+PC90 me38V2DvMhcfMxw5TGZsX PO9aHK2vM2nJGTvMVvcy1 A7jIP4E5DiniImfo7df9x aVRZiCCqnO06h kRRrc8J6MXVuzWT8TEQhl ZroIeCvaE93Jwz+PGNvbG axc5RlBmmzn7btk7svqAu 9IjMwJSIgdmFs nBfsBZI2r2UjHv20J21kP HdpZHRoPSIzMCUiIHZhbG scof1toQ3iRk7+PGNvbCB 2tWW5eY8kSiQg XiP2VVzkG961TgZpaVLeZ jefe8mqe0zshXu7EzSoSF HtvgAulTduZJV4f1YdRn5 2R5YhwOgkf7Mn Cbg0co69qMWgu1D0oWM7Q 3BhZGRpbmctbGVmdDogMC 2fKRIyxxcbBTBkdL8qCBG zZ9v6BwHsStG0 LZtmU4AajjR7JOMksKIeK ITkpVHFoU0ksveaq9praz rcXvFaPYBzUBt5KTc3XRP saWduOiBsZWZ0 VsM3CMY0xPYefS8juWvvo socuX7kPmb+ZCa7m5oeuH TgSV1kiDL7VW56CV74tXL jf4I7qBA0O9Zp IAOaklgkokcrbRS9PUQrU HLlnQ92Jz7wtZrjGd8tXP NwOCE3HSJbhXCtE5AlfD7 yOiAjMDAwMDAw V2LbsRFjCJolF003FInfP iB1SLKalhHyP6ZiRESahM foZqG6v4T6Fq3WLE12CX6 0AB74vXEio8L5 yAL3L3HuIJZlvaufocicq XN5FFWpPTYdsQ41Xd5bzG ycNl2sACPiIMN7NQIwdXX pK3FihB3yBiIl NPIrCLXjP8WdgSVwECswW 286NMukDdI7JLJwbkJnA0 KsRBVitTjkQqB7r1T1Fz6 GCw84CQ59DC12 iMXma5U9rYO1R4HzBEJnc nqfvahozWL9BKLwFXZoeD 02Xf5cnBzhZw1oJDIeBAS 6BNNxpSNvM4Kj aM9sPwEgKZCrJGKkR4Yqf RMyTLsdH264MVxiLoN8AQ SrevUsG7LlXOLhwJyhIjA 4i6N1Mo5PODsf fry7X5ZzJnrxzPH+PC90Y BXlZG23bLJpySFto5tlaL b4EzOzNWZuXHI3oWhpDAi bu5SdNDVaX49a bGF (more content not included)... [facility] Coding Summaryon 07-31-2023 Coding Summary HTMLBase 64 HyuvlowzWUu1mDt+PGhlY WQ+AG2IITZmB59bmHWuqK 5oE6WWHIpZWovkXAMSYGh REhOlwdDgCH4mfYJiUASw IC8+SW2pSOInPphpvSVuc 6E7zFZ8G43lrq0wQNyzwL X1DGJvPmLfhqjer8ehpQu 6IDcuNmluOyBt BQXnoV61CBF8qV31Pe35g AMogCGhl6fezWw0FzMaEX VzUXL4dOzcVVpgl7FoXEJ kP93gnWUkp6Z2 NTEhzPlhrPDdSnItgUG5x S2yNMezdqybk8xnmozyEa o7za60lQAlh7D5cEJ6L3B lorW5ISIrsVSd ZvvwqPGSaG7lsbxaf8iyw mlmMvPlZWRoOUn2OBy0NX WdwPwnQgGvFT06ZAW4JQG wlqCbD9LdEMTw vAotMbF3a8X6Im5BI2WCG xqjX6BAFCVFWUnvgHD+PC 07bw98P5XoXddbSbd9ALW cGLY5yWZ1jK7h JEOeCZzjb6L1zFT6I1Fdv bGojt5so9xpXQZjJBatA4 7sdRUnh5D1KVShaEE0GMK awUlfAeEmhO55 Oyc+NQPulDjcf8HcTtuqz 6hqr7qyeOh9MaozGPTyuu NaxJzlNLR4o4VkDh9aWOP mtDT1bYR4dB2c KxEiUvK6EZcnM831NkOhy SThAmtyV87cL7EsiMU+PH StJxd6KGYigRwgIW4aX3F hZGRpbmctbGVm rZduVI7sWPQalnytXFDmg I4pLHHyU5a3ZzRoRwK6RB klP6DjTUEcawdgSq99lT5 cQsVvMdB7MMgj L3ZxtzM0AHEpbRVxDBdlA VW3Q75da9N9SBWiKJGqBO P4sLD9kD8beAwtxkaurUK mdDsgdmVydGlj ZApmTGioN150AMIgnYwzM kNvZGluZyBEYXRlOiAgMD UvMTYvMjAyNDwvdGQ+PHR gKHY5hKzwOXUc vMSmCNreUv7esSldfMilI H4cQSHcfezeUTYzqZ7dOQ ZaqHOenKxcMJ7wGJMnhoc uj022WvBiKOE1 HRBziOUmN0IejY9oUwLnD WSlXMSnQ5PwsPSdFJvkE1 40BHyfLpL0TKEwxwAiO9F sLWFsaWduOiB0 a2A4Vo2Sz2VojqzoY0Inh OIvYoFwBllwGFt4U3ObEh wvdHI+VS26MQTxAA12MIo 2CIA6tLovYTxg DIDbC6IvhZ8ePpVqXVCqF GRkOyc+PHRhYmxlIHdpZH RoPScxMDAlJyBzdHlsZT0 qRu7mAQWbFGJo oRafsPGwVgKfy7nkQLVaQ HkeNO0tuRuxF2AqeYJ1IZ Syx2q8Qq96G79sO5YzgPM +RSElsPP3fYQ7 qZ2gQxNlLbD6HOlpT721V rCgzGTmEccfy0uum2enwS h1KdP4JJWfpxAqiRduAPK 0a2XyIq69G14r IHdpZHRoPSIxNSUiIHZhb Jpvan8lgC8xYe6+PGNvbC U6cJX6hG3eQjGzBzP4RDu nE575BmHngTBm Lomyt9hmm0arzGl6RtXfJ NLjcfOvyXcvPMQ2p1BuRf 87E1ZteWinq1DuZnh4ey2 5tVHnm4R2pQV6 Y5VsECVyzvejkKZryOusX F6vHTLzwegaETJgvH6aZG TdW3t4KjWyKgZ1DShcK0S yofY9HPInpNVt OKDpkUKTzX2iexkap1nda ccyZnNwMPDyMVf9MPh2WW UieSamOuMeXNS9ZqD7XDK 7mBVkfY7rxRcf euwllV0eDpg+NWA7sBYqr UXBCT4fQtmyuWS+PHRkIH Q5tTctGYyiQOJqgO2hJFU zS0k5ZfRuSsV9 LDqpH8QndwV5OBHvpDWsR BGhqDCDmQ7xvgpcd2ccwm pwJbCoXLMlHHb6EKq2YQD saWduOiBsZWZ0 KwB2FLZ2hERbxN8zwZlpk gegsH2cDod+QmlydGggRG N4AYh0I7YhDim6QCUshKk hMW9vlABeEXif Wx7beSskaKbvOT6aVJSqf cngc199GpRul8wyWXOdeY JrCVsjBCU4H35ti8W9ZVP tIFUiBKQ1cYU6 gK6qdSflhoehyXFnkDmfz qXxdZevXZohAMurF329OX PjjIkuMyWuSVg7Z5GyFvb 4IOOfpKatRW7i nJKiHBwwGv6ttPtowTfxS U7xLCGnjsivz010LcKmi5 whKLIkbDYsDHypHCQ5O02 ub3N7VZNnOBOl HMH2cOE6mN3vzAcpprooq GVmdDsgdmVydGljYWwtYW zeM968DMIclJdjKpQfcXc 6P9DdSaa6JXIy pMkpXD0lxELuERubJp2ko ZcvjYwlUC8cPSFicjelz3 24JqNrg7rlKSWhqKIfXTb aUJV8M96ay6B8 JGJfHNKmAUK5oMM2gY4nu GlnbjogbGVmdDsgdmVydG ttQJuaOPptP535NHZoeTg nPlBhdGllbnQg OFrqTUj3U2MeKwapaTA+P H90DEQmOG52qGRdeFCah7 adtSh8PtWnSGMjDXY3wSm kHTkir0DrIIUc W67gxKRux8U2XYRygBidt QFiXyVgkBB0rP0aBTfuec okn0wyadhmPmgmp3hdhi3 8jM74E21uKYam ZHRoPSIzMCUiIHZhbGlnb m9ooO1hBn9+HSRktZN1aH E2wC1zZZGqPhM4RHpeT66 9InRvcCIvPjxj h3mhr5rksAi5NrH9XECcz uLnnZquVGC2r9JyIj66N3 9sIHdpZHRoPSIyMCUiIHZ rxAdxfp2sqB1y Ii8+XFVofXN8mUT9wS0aM fFbZzZ4PFmuP052EoQvbH CsMwheG80iD0UdmEM+PHR uMxb2KGEdyVgl LU4oqURdYNkhMv7bBZF8U jLhRlJhCRdzC9JnVQWawn kijkgvdPP8QVCwORBqsC3 3Ko4pmTikQUZp aMDQcG2hxbnyb8wjlkulF lAkOBEmYOb5KZn4YJZbfQ krVrUdHTJ7MlL9SGA2dFQ xtF0jtFwjtjyu aR3tZ3TbXNMyotysXl87d C3yLeBlMhP3FEayCjm+SE VRCM4IFVZTKGUJUTLxOEc vdGQ+PHRkIHN0 lPpwCCgnQVJceE2zJQWlE 2a8TeZsYlF5AGfcJ9IvOP KkjmdeXq57kY7oTsZbNvZ 7NQqxR4EqraZ9 KDTioYAcTYqdXOJ8N15oh 8X9ORRhYTNpTSU6wRS4kN 1hbGlnbjogbGVmdDsgdmV ydGljYWwtYWxp D072CNFysJntLoYrZaBiC fK1MqB2Q4DwHzd2PLIdvJ fjOF2eiHGyDLgcRa1ovVk siDalYM0sVOVe evyaFOQwxM6cXGLppQVaw FpsHM6tWYUazhuzc901Bb KlZRA5CEOlkZTwK5UslP1 yOiAjMDAwMDAw J9KqrKGyYApaX190ANkhR mO3DKJbwkDhA8FaNPSefM wkAiC4d8F7Zr13BKUGCVA yczwvdGQ+PHRk LPO4iHwzTLvwERDfhD5kT SKjF8x3NoOwItJ4YBtaE2 VwKJKqllhnDj93jA6nGoX lHjZ1ZYytE3Mk idV1KSJugIFmVEmxVII5Q 70qr1U0IQLkPOQeXJY8dF H6kE2wxQibxiiakUPmbMb gdmVydGljYWwt OCtlN917YVTddJqrQpLTM UFMRTwvdGQ+RJByDAR6rS rqVMbbPBVyfU6cGWKnJ0y 3HfGePjD1JWfs Q6OtRNLicsyjIq53yN8pA aFrSiV4ARkuJ2LkdhC0WV GpuHOiFAinGBQ7L76vg9F 1CHOeVUXoPKF2 bDZ2eV7mkGuhsstnoYEhm DsgdmVydGljYWwtYWxpZ2 78WFDjxDkkXcUwQLAlXP2 jeTwvdGQ+PC90 np43H7CxIyeeMnn5CVWpJ YQ5qYD5tZ9tBBHrRZxvf8 A1bZK8D4LrwaLeot9tm7f vPDVsXLmqV70r kYLhx2H7HBPckFX6LFLtu ZvaAbQjrR26Qyh+PGNvbG fxy4RuUnavu0qab1ylfGu 9IjMwJSIgdmFs gXskGHS6l9CsGg56V25eN HdpZHRoPSIzMCUiIHZhbG qtzv8ybH5fFo9+PGNvbCB 5eYK4vC6qJbJr XtE3DNriZ247NbCgiLMdT noag7lli9wwqIl8AuWnBS FnxbKgbQkrRGH5m4DuTq2 2D8FaeDvmi1Mf Mth7pv02bNSte5I2oNQ1I 3BhZGRpbmctbGVmdDogMC 0pNKRmhkanRHMlwF6sMOD wM7z0ZbFcEdZ3 HVtiD9GbnkI5NPSddXBvQ VZnjPZYcW6hsaihl9ymxu ktVnKtDDRiTTf3FRl2NTU saWduOiBsZWZ0 RxJ1WYC1wVJyyZ5lmCdyv zbalV7iMcb+JTe2n4imqF OxLW0kpGE9QD65IA76wOQ io3R4zYJ8L5Gw RMIhtilopqpphQN3XIHxN AOoiE54Fc2agGrcBu0mRM CqLYJ2VNXauFVvV3KwqD6 yOiAjMDAwMDAw Q3DkoJEdFAcsQ521LBxrJ eK4AMUxptPnQ5VgHTCxgO urCbN5w5Q4Dk8XWA45DR1 6FZ68hLUzu9G0 mJI5S2GxFHBjyypuipetb BW5AATeYXGsfX73Gx2gxA euRx2bCLMiPUT7PXQesTL tM2IyiF0eFmCl RYFqCLHoO9LswVCmIWlaG 029UTcwQzB0GLGbpeKoH6 ZrYKCfjOeiLxJ1e8G2Sy6 YMf94YX30YU16 cXRtt6D8oQR2W4RbKUJiu opmchhoxNX5JIByWMWfeY 62Or8dhPynCk2fZCPiCDF 7CMZkxIBvA0Qi oI1hBbFiOMUxFJJhG5Oiu IAnQRsvF961IWemVrZ8JG NuryCcV2JwYSEoyEriTdJ 2t5R3Wn8KFVuc jpk2W6SxNjrxhMY+PC90Y FWrJD23zTVlyQQzr1dagY l7BrTdSZUoZFH3aSvcACb pl7HySDIuH41n bGF (more content not included)... [facility] Coding Summary HTMLBase 64 QbdmvbbfTPz7pQx+PGhlY WQ+BP9WCIQvH73hkKBmeS 5gO0ASERqNGxxfBPPXFHm SYyWbndOlYW2iuUElPUHg IC8+MD1bXZLgRsodjSVuq 5Q5qEM3C44uyw6fZQdwsF Z1BJZbJnCbhachv6sjfNl 6IDcuNmluOyBt PVHxrO25HKS2wC49Gu71f MPngXGur8oumWu7BzBqHI AzPLM3mNzvNVezh0MmEGA bN03pcMHsz6E5 GEOfgCeqfOBcBhOxqZU3x I3nPWsicwdij3ehufgqHj z6bp69hFRhh2M8eRE7N6U vcpN4SXJhfYQn UzzprSBMiA5ympraq6aui kzyFcSxOOQpBQl8GFw7NR ZsuUksHuBhWE20LCK6XMZ xdmQwS5JnPZXp yNpkJqV2v9L2Ib4KY9RYD hyiD1YWEEHYRFnwwPW+PC 53rn04Z0OzIixiFmw5NIJ xRBS2gDB5iR1a QQHrYRfyt1Q2sPY5Z1Kpp eHdck7ln6xaJIKnKCeuN0 0klUIjl3N0DJXteKN0WWR dxQicBzAxnM60 Oyc+FSDxtIxkc7NfFdlao 8xvx9mgpVg7GzfyOFAger UhgVyxRFU4w1TbWl7cUVZ ykID7gXU3jD3s JyGmCfV9TGusX528YdCfr IZvCmpgB99fH2TiuXI+PH EwKxz9LPUidBnxCE2mW8T hZGRpbmctbGVm vWptUM7fDFQlgnupGDHeb G2gCYXaH6x8QoSsIxQ0HO syC5TdDSRazlwqMd79hR8 dPiTiDdL5IJtk Y4AglqG2PCVqrFLdTAhoX XX0C34la5M2CEDkIEGkZS K8mKT5xU1zdWbkqicoqVJ mdDsgdmVydGlj MRceHIvoG417DCZejImnB kNvZGluZyBEYXRlOiAgMD UvMTYvMjAyNDwvdGQ+PHR gFTQ4eFhkGYWt fZWbNHygVh2rhEpcoDwoH X1vOCPgojusDNOalZ5dWC CecBApeTsuKK0wTJVhsxo az528IjZpIGF3 XNLmuHQbE0WbtS6wSbJcH BSuWYOaR3YhfVWgYJcoE5 85AWlyGuI2UKZdpeZjO0A sLWFsaWduOiB0 h6W0Wk4Tk0NpcyphK7Ose SZcFeXeEijkTLj4J5CmGq wvdHI+TS33DZHnVN02HIj 1YGE9hBtxNNxb SIBuJ4GpvR8kBwItWOHcC GRkOyc+PHRhYmxlIHdpZH RoPScxMDAlJyBzdHlsZT0 iYz4gBDGlNHRw yQngcKIaCkJpq8ezTGUxX PniLE5tbLvfJ0HvuKN4TM Ver7u3Ye98Q54cJ2PntTL +MSQgfHD6jUR5 uN6hLqZrYkP9RFdsO756B qAmiYEuBvsfv6rxg4ahnX i7BuK0STNjfwCvnDmxTKD 1y9LvZj04X74e IHdpZHRoPSIxNSUiIHZhb Wbwij0meS2iBe5+PGNvbC Z3sYI5dI2uWoOjMbZ5FYv aY033YmYvlGDi Qzzzg3igc0uahKo3IxQlA TQjtmFcmSwdNUB7o1FbYw 47F2WntGfmn9EvEug6uh9 4uAMjv6U4rNT3 C9AsKTHehhdkmETbvCqwT S6qALProqdiYPTlsF7tBE XdI5d1RiTzHdM8SRjzL4P hhnU6PEPegWUb CNEeeZUPpR4gglbji4css hbpVtHtJQTbSCx4ONw3YO GhkLmxPtRkUUM1OvJ2RCE 4lRZqwN1doXzx dupakF9uNoi+QJD8kDJep EYIDL4aHrizyZU+PHRkIH F9yMcfJCrmJOZntK8hFUB qE3v3VeYbZzQ4 IMmuV3GjhfT2PPPzeYHeX MWuhSKJuO3nphkkc6jedp thPuFvKYRmFCq9UDo9KWI saWduOiBsZWZ0 LhR6CQG6fBWwzY2gcKrgl kezaW5pEeu+QmlydGggRG F7GTy1E8CzIxb0RGQeaQo iCH5ttQOdOFrj Yl5weKfreCzwMD0xCBAyz lvta219XrXii8keADXmuS SoXUwxYOS3S77dv9H0GZD sLUSuUHK9uRH8 dM2juVvvyknqrDTulYlff tZohDlbQThpEHjaT880SE HcoAjcCyBrGDz7O2YpKnu 1HAGvyUjnUT5n nYLgKXbnJi8kmXipmZxlV E8dRXRqefskm263XpMsj9 nlNMYpiWFbMWwuWXI4U89 uz7U9GBHdJZSz ZEP5hIL8nM8ghGxsphovm GVmdDsgdmVydGljYWwtYW jmM706NMUqcOjrGkLhhPd 6Z3QgKfv9NRWa sWooFI7kfLQoAMheKc0mv TxedEsrMU1yCGGziibmd7 27CxNjs8aoFRCinGSnRAy sJND6T09og4F8 YTIsBZTpVOU2bGE9tR8vb GlnbjogbGVmdDsgdmVydG ugBGpdHUdiP745XSBskEb nPlBhdGllbnQg MWiyZEt0S0HcQnyruOF+P T70JYCbXY39iMTfjTDrp6 utrKp6TgHxYKZmVUK1nJz lVCkjs5UlAQTq H03koYSfh1V3MAMycVvbh IVzYiPonCQ8oQ5tQTulnp uqj4xkbqzlUzryy8zqgp9 1aO35C12qCLbe ZHRoPSIzMCUiIHZhbGlnb k6omF0pLw5+XNVsdWW1yC V7fU9aBMYbSoD3FRslZ09 9InRvcCIvPjxj m9wdx2chfJj0HcE5LQPkr iTitSecISZ9i5BjXp56H4 9sIHdpZHRoPSIyMCUiIHZ laMnhqr2wsL2v Ii8+URXciXJ4dMV7mY3wN cZvGgX3OAhmP854JrApdP MqZahxS61eU4WlmFR+PHR aSsr7SZHjwGce JV4yoOPyEItrDx7lORP5W tTlMuVoQNcuL6CtQSMarb avsinmhHM9FKVfXRSriG4 7Uy9jrFrlRTHw cZWQjB4ckzggs3gidmddI nXySYXbLNa9SRd9IRPbbW tjByJzVSU2McK3QHX8gPY qhF0yvFzvclhn aQ4hX0EjAOEogpjkYt34r I2jDyHlBfU7WKurLgm+SE ENSB3EBKASOJAYANDkDTg vdGQ+PHRkIHN0 iXdvQBumZHUqtX5tYXOiB 3y2OeZzUkQ5LQkhH4PzXT JpoyjdCo42jT8wKnZvWoQ 8FFdmF7VjsfP5 VORriAFzEGajEAL1H21mj 8E0DUZbAZDoGLQ0cDJ3lE 1hbGlnbjogbGVmdDsgdmV ydGljYWwtYWxp I862YKKswIysLeMaMvQiO hF9QjG9P7PdXmo6PXFjiH mhMQ3grTFvZVrsSi8jwTv xkEapHH5nOWEh ezkpPFYwoE5fTBDovKZoq OikRV8dJHUqqxbaf903Zf KuHRH9EPCkeDMuF2BvvU0 yOiAjMDAwMDAw Y5PzyEViOZipE461HFqwD pN8QKWadyEtF0NvRNRhrI obPvR3x8G3Hq12AIIVFKZ yczwvdGQ+PHRk UDM1lMjsEEhoTMXzmI8sU SOtV0s0NkPkOrU6SFocQ6 GpJUBsrpuiLy43wE8jPuC xFhH5ZNmaD7Up rwJ4UCPfsCNfQYveWTY3V 80nm7B2YQLrCJIkSVU6wS B0jJ3oqAxqatdeoJTrwCi gdmVydGljYWwt NZpnK489UYYqkImcGmNVB UFMRTwvdGQ+WFOrHZN7mX jpOPqyOVPqjH4eTRUzM0i 2EdDuOrN7VUgr L0OeBMKssibrQy26vV7cE pUrYdH1EBzsN4DifpV4YB CxbOEuHQpoMWD0U52mg8Q 2HECqDMQrHYQ2 fSP3oD7cmXispsjrpAHws DsgdmVydGljYWwtYWxpZ2 65NENjhClsMiKyLNVzAX7 jeTwvdGQ+PC90 vs43Z3AoWcivIcs9GFGtO RA0zIX2kJ7kWRBwSGygv9 H1eCS1S6SrvqPlqm3jn7j hZFIdJZaiZ07t mRHvs6P8PRDtxBB4FGPpn IhpXgNqtJ47Gjr+PGNvbG nhw7ScOoryi0vta6zufSe 9IjMwJSIgdmFs lLtdXLD6n2ExZi04S07kI HdpZHRoPSIzMCUiIHZhbG inqh6qcV3tKn9+PGNvbCB 4dKR2uE1nJlEc WuS4QRqeL151JjZrxBCcL ylgv9rah3gtkUr1XdSrBJ IsrzWreJqrDTJ3s9BzAf2 8C1MpiWtcq3Or Qom9qd10gWTgz0A8aAF1F 3BhZGRpbmctbGVmdDogMC 2oVISgfdaeGWBnjF0hWQH yT7d1KoSpJxZ8 MOuuR6IkzeK3ESXnhSDgA XNjjQRJqL7oaavsf3rjij wqWqEjQUZaOAk0UCy6MKR saWduOiBsZWZ0 EdB6IRW7tDUmnF9egGvdz pkpeF4qRor+XIn6q7xtnJ UqTG9bqTU4AY63BF66yUR fw0H6xYB4P8Tq CLSxsdaubchraLX0IKDpY ZWvfI41Ws5fbComEm0xFP BdAWW0SBSeiEHvE3HwcU4 yOiAjMDAwMDAw Y2XwgMNuARlnG470IEeaA qW0SWAomqEhQ2XeFLJmgW edSqB3y0B2Uc7YZJ10CU6 1VI76dAJcp0Z4 bMD6S8HrHBIaxxhlwhxqw RX4OXPlJMMniF80Lg1azZ brWn8dECNhNPC2BTTmiNA zX8WyuZ6lMqIu AJZrFIEgT3HrbASyTSfgM 493PJfdSpU0TSNjtkApT3 XhJXUxdTaaChK9g5M2Gr4 ZMu50ZA37CK06 lXSyb0A0lKF3W9RiRBJpd wmuloefmPV6JFKaFENmvT 98Jo6jlGnwRb3eTVCnZYE 6RXYvaVKuW3Iy qR1gNiHiYBWpEYFzW4Wpv RDhCDgpC770QQmkEiM4DO LavaKdB4WqHGUtwZscWfJ 3z6X1Zq1BVJwe hlx5N1EjGoghcBT+PC90Y NWeCA20dVVbzKPvm1hmkS k9VlIbCAKlQXV4oKgnKSb za6JzVXNtA51n bGF (more content not included)... [facility] Coding Queryon 07-26-2023 Coding Query The diagnosis of S/P foot surgery is an accessory diagnosis and is not covered by Medicaid. Can you please review and add additional diagnosis information - if there isn't anything definitive you can add the patient's signs and symptoms to the ED note. Thanks. Thao Santana MD [Transcribed on: 07/26/2023 14:52 EDT] [facility] Consent Formson 07-25-2023 Consent Forms [id number] [email or web address] [facility] ED Clinical Summaryon 2023 ED Clinical Summary [facility] - Emergency Department [address] [place] [address] ED Clinical Summary PERSON INFORMATION Name: CHINMAY KNIGHT Age: 48 Years Sex: FEMALE : 1975 MRN: Acct#: Visit Reason: Upper respiratory infection; Facial pain; Facial swelling; Cough; COUGH, HEADACHE, FACIAL SWELLING Arrival: 07/24/2023 21:29:22 Discharge: 07/25/2023 01:01:00 LOS: 000 03:32 Check In: 07/24/2023 21:29:22 Checkout:07/25/2023 01:01:00 Address: [address] [facility] [address] PCP: Provider, None PROVIDER INFORMATION Provider Role Assigned Unassigned Baljit Cope OPTICAL ENGINEERING TECHNICIAN Nurse 07/24/2023 21:33:10 Romeo Resendez DO ED [...] PATIENT EDUCATION INFORMATION Instructions: Sinus Infection, Adult, [id number]; Diabetes Mellitus and Nutrition, Adult; Hyperglycemia, [id number] Follow-Up: With: Address: When: Romeo Addison [address] [place] [id number] [facility] (1) In 2 days 07/27/2023 With: Address: When: [facility] In 2 days 07/26/2023 Comments: home you have a sinus infection; warm compresses take the antibiotic ibuprofen for discomfort reduce your smoking; recheck: [facility], 48 hours, walk in 9 am-7 pm you have a physician in [place]. Continue with that physician, until you locate a physician around here. You may call DR ADDISON'S office, here in [facility], to see about continuing with him. watch your diet, as a diabetic you need to be careful about what you eat You are welcomed to return anytime, especially if fever, increased pain, vomiting T H OMLEY< ER PHYSICIAN< [facility] DIAGNOSIS: Facial swelling; Hyperglycemia; Sinusitis, acute Patient Understands: Yes - Patient/family/caregi marcello verbalizes understanding of instructions given Comment: Normal [facility] ED Patient Summaryon 024 ED Patient Summary [facility] - Emergency Department [address] [place] [id number] PATIENT DISCHARGE INSTRUCTIONS Patient Information Name: CHINMAY KNIGHT Age: 48 Years Date of : 1975 Reason For Visit: Upper respiratory infection; Facial pain; Facial swelling; Cough; COUGH, HEADACHE, FACIAL SWELLING Arrival Time: 07/24/2023 21:29:22 Primary Care Physician: Provider, None Attending Physician: Romeo Resendez DO Comment: Visit Diagnosis: Diagnoses This Visit Cough ([id number]) Facial pain ([id number]) Facial swelling ([id number]) Facial swelling (R22.0) Hyperglycemia (R73.9) Sinusitis, acute (J01.90) Upper respiratory infection ([id number]) The Pharmacy at [facility] is open Friday through Friday from [...] alcohol and/or drug addiction problems; contact the [facility] 07/10 Crisis Hotline -Text 9HKTX ks [phone]. If you received any narcotics, sedation, or [...] legal documents With: Address: When: Romeo Addison [address] [place] [address] Business ([employer] In 2 days 07/27/2023 With: Address: When: [facility] In 2 days 07/26/2023 Comments: home you have a sinus infection; warm compresses take the antibiotic ibuprofen for discomfort reduce your smoking; recheck: [facility], 48 hours, walk in 9 am-7 pm you have a physician in [place]. Continue with that physician, until you locate a physician around here. You may call DR ADDISON'S office, here in [facility], to see about continuing with him. watch your diet, as a diabetic you need to be careful about what you eat You are welcomed to return anytime, especially if fever, increased pain, vomiting T H OMLEY< ER PHYSICIAN< H B [facility] Medication Information: The exam and treatment you received today in the [facility] Emergency Department were for an urgent problem and are not intended as complete care. It is important for you to follow up with a doctor, nurse practitioner, or physician?s car rental sales assistant for ongoing care. If your symptoms [...] so we can reach you if necessary. [facility] Emergency Department has provided you with a complete list of medications post discharge. Please inform your tool lathe operator/provider of your visit and for further instruction on these medications. Any specific questions regarding your chronic medications and dosages should be discussed with your primary care physician(s) and/or pharmacist. New Medications [id number], [address], [place] [id number], [phone] clindamycin (clindamycin 300 mg oral capsule) 1 [...] spironolactone (s (more content not included)... Normal [facility] HgbA1c Standardon 07-25-2023 .Hb 15.6 Invalid Interpretation Code [facility] Comment on above: Performed By: #### 1 [id number], [id number], 2479575617, 8132127, 15844539, 6056074026, [id number] ####[facility] (DEFAULT)[address] [place] [address] .Hgb A1c 1.18 g/dL Invalid Interpretation Code [facility] Comment on above: Performed By: #### 1 [id number], 9647650450, 3795817277, 2909891, 89361919, 9856198713, 6008780763 ####[facility] (DEFAULT)[address] [place] [address] 23972 Glucose [Mass/Vol] 212 mg/dL Invalid Interpretation Code [facility] Comment on above: Performed By: #### 1 [id number], 4571810618, 3479904702, 6099055, 41271242, 9396075812, 9498036913 ####[facility] (DEFAULT)[address] [place] [address] 13344 HbA1c (Bld) [Mass fraction] 9.0 % High 4.6-6.2 [facility] Comment on above: Performed By: #### 1 [id number], 8165568029, 2856712842, 5932093, 36562922, 6647843148, 9093734833 ####[facility] (DEFAULT)[address] [place] [address] 04585 POCT Glucose Levelon 024 Glucose [Mass/Vol] 267 mg/dL High 74-118 [facility] Comment on above: Result Comment: OPR_ ID=[email or web address],TGC FLAG = False,Meter:[id number] Charge Nurse:89Zhen Prisca Smiley Performed By: #### 4 [id number] ####[facility] (DEFAULT)[address] [place] [address] .Auto Diff 1on 07-24-2023 Auto [place] % 8 % Normal 12 [facility] Comment on above: Performed By: #### 1 [id number], 9192398297, 4243736431, 3343950, 92707255, 4142816305, 6408117303 #### [facility] (DEFAULT) [address] [place] [address] Baso Abs# 0.1 x10 Normal 0.0-0.2 [facility] Comment on above: Performed By: #### 1 [id number], 9921512669, 0477257852, 5900649, 28104522, 2305445368, 6693145551 #### [facility] (DEFAULT) [address] [place] [address] Basophils/100 WBC (Bld) 0.8 % Normal 0.2-2.0 [facility] Comment on above: Performed By: #### 1 [id number], 0564886270, 4378534210, 2800034, 63261721, 3669456071, 1228041471 #### [facility] (DEFAULT) [address] [place] [address] Eos Abs# 0.3 x10 Normal 0.0-0.4 [facility] Comment on above: Performed By: #### 1 045198736, 7056097753, 0315004755, 7914450, 88916612, 0971810045, 4052773094 #### [facility] (DEFAULT) [address] [place] [address] Eosinophils/100 WBC (Bld) 2.3 % Normal 0.9-4.0 [facility] Comment on above: Performed By: #### 1 285171364, 8135155585, 7223144244, 8948106, 86578084, 5818836131, 7938531190 #### [facility] (DEFAULT) [address] [place] [address] Lymph Abs# 2.6 x10 Normal 1.3-2.9 [facility] Comment on above: Performed By: #### 1 665264447, 3860742833, 3355902655, 4035098, 99873763, 6654452176, 0927213080 #### [facility] (DEFAULT) [address] [place] [address] Lymphocytes/100 WBC (Bld) 18 % Normal 14-48 [facility] Comment on above: Performed By: #### 1 988342580, 6542660155, 3282618405, 8827571, 02546953, 1315154392, 8936197457 #### [facility] (DEFAULT) [address] [place] [address] [place] Abs# 1.1 x10 High 0.0-0.8 [facility] Comment on above: Performed By: #### 1 437290907, 7410696995, 7287965061, 5562582, 78688132, 2206994902, 5595113202 #### [facility] (DEFAULT) [address] [place] [address] Neut Abs# 10.1 x10 High 1.5-9.2 [facility] Comment on above: Performed By: #### 1 613964554, 7332475858, 5386225217, 0958347, 18557256, 6596188416, 4431156842 #### [facility] (DEFAULT) [address] [place] [address] Neutrophils/100 WBC (Bld) 71 % Normal 44-88 [facility] Comment on above: Performed By: #### 1 324467928, 9909500234, 9024558132, 5395512, 02736387, 6363668201, 0693172780 #### [facility] (DEFAULT) [address] [place] [address] CBC w/ Auto Diffon 4 Erythrocyte distribution width (RBC) [Ratio] 14.2 % Normal 11.5-15.0 [facility] Comment on above: Performed By: #### 1 174490191, 2015784143, 1127948709, 2540492, 35027956, 9952350564, 5143563360 #### [facility] (DEFAULT) [address] [place] [address] Hematocrit (Bld) [Volume fraction] 45.4 % High 33.7-40.4 [facility] Comment on above: Performed By: #### 1 924641715, 1813157111, 2621812652, 5891008, 65341228, 3883781062, 3398514166 #### [facility] (DEFAULT) [address] [place] [address] Hemoglobin (Bld) [Mass/Vol] 15.1 g/dL Normal 11.3-15.9 [facility] Comment on above: Performed By: #### 1 798376850, 2797392525, 1721036459, 3218534, 58546613, 3040949212, 8919255856 #### [facility] (DEFAULT) [address] [place] [address] Man Diff? Auto Invalid Interpretation Code [facility] Comment on above: Performed By: #### 1 047705072, 8407347839, 0784975020, 4196835, 37162656, 9790828293, 2661759586 #### [facility] (DEFAULT) [address] [place] [address] MCH (RBC) [Entitic mass] 30 pg Normal 24-34 [facility] Comment on above: Performed By: #### 1 161178245, 8403260992, 1377370509, 0223862, 89422606, 8834031017, 9738561589 #### [facility] (DEFAULT) [address] [place] [address] MCHC (RBC) [Mass/Vol] 33 g/dL Normal 26-37 [facility] Comment on above: Performed By: #### 1 800284219, 2718066483, 3113612714, 8466332, 10926753, 0429868575, 9574805397 #### [facility] (DEFAULT) [address] [place] [address] 61105 MCV (RBC) [Entitic vol] 92 fL Normal 81-100 [facility] Comment on above: Performed By: #### 1 385970620, 3723425165, 8337849044, 6175384, 55037546, 3059542236, 8314691990 #### [facility] (DEFAULT) [address] [place] [address] 77309 Platelet 275 x10 Normal 138-427 [facility] Comment on above: Performed By: #### 1 853111241, 1414676936, 1702181218, 9629794, 63093805, 7321159038, 9296482695 #### [facility] (DEFAULT) [address] [place] [address] 19444 Platelet mean volume (Bld) [Entitic vol] 9.0 fL Normal 6.3-10.2 [facility] Comment on above: Performed By: #### 1 939685352, 2716767844, 5516548247, 6056529, 30921456, 3579791178, 9411992809 #### [facility] (DEFAULT) [address] [place] [address] 08489 RBC 4.93 x10 Normal 3.70-5.30 [facility] Comment on above: Performed By: #### 1 821005488, 1371476101, 4846216988, 3831770, 48336592, 0276208056, 0649031566 #### [facility] (DEFAULT) [address] [place] [address] 30582 WBC 14.3 x10 High 3.5-10.5 [facility] Comment on above: Performed By: #### 1 379787553, 5660380909, 0552188461, 6970225, 95620822, 7321874978, 3270232454 #### [facility] (DEFAULT) [address] [place] [address] 59311 CMP Standardon 07-24-2023 eGFR Non AA 48 mL/min/1.73m2 Invalid Interpretation Code [facility] Comment on above: Performed By: #### 1 885991397, 0172374080, 6209370850, 5680308, 08988141, 9690557083, 8749430600 ####[facility] (DEFAULT)[address] [place] [address] 33405 eGFR AA 58 mL/min/1.73m2 Invalid Interpretation Code [facility] Comment on above: Performed By: #### 1 981741753, 9153376484, 3884315566, 7534940, 83694670, 1782760000, 3192022011 ####[facility] (DEFAULT)[address] [place] [address] Albumin [Mass/Vol] 4.4 g/dL Normal 3.5-5.0 [facility] Comment on above: Performed By: #### 1 062736446, 6340548199, 1088656872, 6513606, 05522974, 8606481067, 0846619888 ####[facility] (DEFAULT)[address] [place] [address] Albumin/Globulin [Mass ratio] 0.9 {ratio} Low 1.4-2.6 [facility] Comment on above: Performed By: #### 1 040440198, 1866284847, 3865976970, 3240790, 89264179, 4303343782, 6055583894 ####[facility] (DEFAULT)[address] [place] [address] 12378 Alk Phos 107 IU/L High 32-91 [facility] Comment on above: Performed By: #### 1 735265405, 4697611186, 0335565153, 0250151, 44922206, 4331086805, 4830697838 ####[facility] (DEFAULT)[address] [place] [address] ALT [Catalytic activity/Vol] 16.0 U/L Normal 14.0-54.0 [facility] Comment on above: Performed By: #### 1 668117763, 1715508786, 6208027058, 4309068, 44147452, 0604338748, 2143860690 ####[facility] (DEFAULT)[address] [place] [address] 93668 Anion gap [Moles/Vol] 12.8 mmol/L Normal 5.0-19.0 [facility] Comment on above: Performed By: #### 1 474399834, 3796812856, 8317348306, 7997227, 12185223, 9461527503, 4498871590 ####[facility] (DEFAULT)[address] [place] [address] 79085 AST [Catalytic activity/Vol] 17 U/L Normal 15-41 [facility] Comment on above: Performed By: #### 1 893513852, 9882703637, 5106708921, 0083204, 35586123, 7748485573, 0653055119 ####[facility] (DEFAULT)[address] [place] [address] 51981 Bili Total 0.3 mg/dL Normal 0.3-1.2 [facility] Comment on above: Performed By: #### 1 073992641, 5837789340, 3409562088, 7100497, 96980929, 0100235892, 2578193157 ####[facility] (DEFAULT)[address] [place] [address] 73268 Calcium [Mass/Vol] 9.5 mg/dL Normal 8.9-10.3 [facility] Comment on above: Performed By: #### 1 084592054, 1123596940, 0587399963, 8803120, 72355560, 6781887528, 2773137495 ####[facility] (DEFAULT)[address] [place] [address] 19672 Chloride [Moles/Vol] 102 mmol/L Normal 101-111 [facility] Comment on above: Performed By: #### 1 355788102, 2695279506, 1537731475, 2520204, 64351403, 8783980807, 6963132111 ####[facility] (DEFAULT)[address] [place] [address] 12791 CO2 [Moles/Vol] 27 mmol/L Normal 21-32 [facility] Comment on above: Performed By: #### 1 059040114, 1205698740, 3538532934, 5100786, 79696063, 4478638227, 6637480240 ####[facility] (DEFAULT)[address] [place] [address] 33247 Creatinine [Mass/Vol] 1.19 mg/dL Normal 0.60-1.30 [facility] Comment on above: Performed By: #### 1 944851224, 0098441691, 4898831906, 6657198, 28523412, 1443761333, 9414724874 ####[facility] (DEFAULT)[address] [place] [address] 44529 Globulin (S) [Mass/Vol] 4.6 g/dL High 1.5-4.3 [facility] Comment on above: Performed By: #### 1 989232671, 3888305149, 8176296393, 3482356, 18841440, 1967981428, 4788397710 ####[facility] (DEFAULT)[address] [place] [address] 92993 Glucose [Mass/Vol] 301.0 mg/dL High 74.0-118.0 [facility] Comment on above: Performed By: #### 1 089541328, 7014147382, 2574554264, 1774743, 65076687, 6049020084, 5307792923 ####[facility] (DEFAULT)[address] [place] [address] 81044 Osmolality 289 mOsm/L Invalid Interpretation Code [facility] Comment on above: Performed By: #### 1 855976920, 9372884186, 4721520397, 7868342, 90093735, 9187076350, 1518337151 ####[facility] (DEFAULT)[address] [place] [address] 83583 Potassium [Moles/Vol] 3.8 mmol/L Normal 3.6-5.1 [facility] Comment on above: Performed By: #### 1 328718986, 3858982887, 1516842048, 0712857, 21794143, 9779227432, 1063588812 ####[facility] (DEFAULT)[address] [place] [address] 64716 Protein [Mass/Vol] 9.0 g/dL High 6.5-8.1 [facility] Comment on above: Performed By: #### 1 676819143, 0389971124, 1155597165, 9385444, 23345826, 5239301971, 7584040367 ####[facility] (DEFAULT)[address] [place] [address] 42478 Sodium [Moles/Vol] 138.0 mmol/L Normal 136.0-144.0 [facility] Comment on above: Performed By: #### 1 660751456, 4479087949, 6737289180, 5025584, 10740945, 2852472950, 6273866727 ####[facility] (DEFAULT)[address] [place] [address] 04185 Urea nitrogen [Mass/Vol] 19 mg/dL Normal 8-26 [facility] Comment on above: Performed By: #### 1 352429581, 4798652899, 3680672568, 0964727, 99770814, 0962902314, 0594141284 ####[facility] (DEFAULT)[address] [place] [address] 21793 Urea nitrogen/Creatinine [Mass ratio] 15.9 mg/mg Normal 4.6-16.2 [facility] Comment on above: Performed By: #### 1 296497440, 8030696197, 5469999821, 9019907, 37062870, 2259727307, 9693890113 ####[facility] (DEFAULT)[address] [place] [address] Maxillofacial w/ Contrast on 07-24-2023 CT [...] maxilla sinus with an air-fluid level. The substation manager spaces, parotid glands and parapharyngeal spaces appear [...] Norwood MD 07/25/23 0:04 am Technologist: MONTSE [facility] ED Note - Physicianon 2023 ED [...] not seen her physician, who is in [place], she is now living in for [place] because she had a break-up with her [...] is otherwise symmetric, no RPA PPA or FIELD APPRAISER, tympanic membrane canal pinna and mastoids are [...] Pharmacy: clindamycin (Order): 600 mg, IV Piggyback, Hot Wire Glass Tube Cutter ketorolac (Order): 30 mg, IV Push, Once [...] she follows up with her doctor in [place] until such time as she does develop relationship with a physician in this area. [place] is not that far away. Impression and Plan Diagnosis Facial swelling (LGO17-XI R22.0, Discharge, Medical) Hyperglycemia (ZBV73-TM R73.9, Discharge, Medical) Sinusitis, acute (CSQ21-IQ J01.90, Discharge, Medical) Plan Condition: Improved. Disposition: Discharged: time 07/25/2023 00:52:00. Prescriptions Patient was given the following educational materials: Hyperglycemia, Xxia-jv-Plkd, Diabetes Mellitus and Nutrition, Adult, Diabetes Mellitus and Nutrition, Adult, Hyperglycemia, Pndu-xl-Ulss, Sinus Infection, Adult, Iakq-fv-Fjnp. Follow up with: Romeo Addison In 2 days 07/27/2023; [facility] In 2 days 07/26/2023 home you have a sinus infection; warm compresses take the antibiotic ibuprofen for discomfort reduce your smoking; recheck: [facility], 48 hours, walk in 9 am-7 pm you have a physician in [place]. Continue with that physician, until you locate a physician around he (more content not included)... [facility] ED Note-Nursingon 07-24-2023 ED Note-Nursing private [...] imaging. oriented to call light. no distress. [facility] Extra Greenon 07-24-2023 Tube Collected Yes Invalid Interpretation Code [facility] Comment on above: Performed By: #### 1 [id number], 5243220967, 2489260627, 7371249, 55877021, 9378049677, 3810310559 #### [facility] (DEFAULT) [address] [place] [address] POCT Glucose Levelon 024 Glucose [Mass/Vol] 318 mg/dL High 74-118 [facility] Comment on above: Result Comment: OPR_ ID=[email or web address],TGC FLAG = False,Meter:[id number] Charge Nurse:Alisa Morley Performed By: #### 4 [id number] #### [facility] (DEFAULT) [address] [place] [address] 52800 XR Chest 2 Viewson XR Chest 2 [...] Hinkle MD 07/24/23 11:34 p Technologist: SUSAN [facility] ED Clinical Summaryon 2023 ED Clinical Summary [facility] Emergency Department [address] [place] [address]34 ED Clinical Summary PERSON INFORMATION Name: CHINMAY KNIGHT Age: 48 Years Sex: FEMALE : 1975 MRN: Acct#: Visit Reason: Foot pain; LT SWOLLEN AND BRUISED, PAINFUL Arrival: 07/21/2023 13:58:12 Discharge: 07/21/2023 15:30:00 LOS: 000 01:32 Check In: 07/21/2023 13:58:12 Checkout:07/21/2023 15:30:00 Address: [address] [facility] [address] PCP: Provider, None PROVIDER INFORMATION Provider Role [...] Sprain Follow-Up: With: Address: When: Provider, None [address] [place], [place] [id number] Within 3 to 5 days DIAGNOSIS: 1:S/P foot surgery Patient Understands: Yes - Patient/family/caregi marcello verbalizes understanding of instructions given Comment: [facility] ED Patient Summaryon 024 ED Patient Summary [facility] Emergency Department [address] [place] [address] 80062 PATIENT DISCHARGE INSTRUCTIONS Patient Information Name: CHINMAY KNIGHT Age: 48 Years Date of : 1975 Reason For Visit: Foot pain; LT SWOLLEN AND BRUISED, PAINFUL Arrival Time: 07/21/2023 13:58:12 Primary Care Physician: Provider, None Attending Physician: Thao Santana MD Comment: Visit Diagnosis: Diagnoses This Visit Foot pain (216100195) S/P foot surgery (Z98.890) The Pharmacy at [facility] is open Friday through Friday from [...] alcohol and/or drug addiction problems; contact the [facility] 07/10 Crisis Hotline -Text 5PTLC to [phone]. If you received any narcotics, sedation, or [...] legal documents With: Address: When: Provider, None [address] [place] [address] Within 3 to 5 days Medication Information: The exam and treatment you received today in the [facility] Emergency Department were for an urgent problem and are not intended as complete care. It is important for you to follow up with a doctor, nurse practitioner, or physician?s car rental sales assistant for ongoing care. If your symptoms [...] so we can reach you if necessary. [facility] Emergency Department has provided you with a complete list of medications post discharge. Please inform your tool lathe operator/provider of your visit and for further instruction [...] after an (more content not included)... 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 Marcell Jaxon BNPon 07-15-2022 Natriuretic peptide B (Bld) [Mass/Vol] 69355.0 pg/mL Critically high <=900.0 [facility] Comment on above: Performed By: #### B HEEL EMERY BUFFER ####[facility] [address] [place] [id number]. Marcell Coates CARDIAC ISACC 3-6on 3 CK [Catalytic activity/Vol] 72 U/L Normal 26-192 [facility] Comment on above: Performed By: #### B MP #### [facility] [address] [address] [address] Marcell Coates CK.MB [Mass/Vol] 1.21 ng/mL Normal <=3.60 [facility] Comment on above: Performed By: #### B MP #### [facility] [address] [address] [address] Marcell Coates HSTROP 47.6 pg/mL Normal 4.0-51.3 [facility] Comment on above: Result Comment: CUT- OFF POINTS HAVE BEEN ESTABLISHED BASED ON THE FOURTH UNIVERSAL DEFINITIONS OF MYOCARDIAL INFARCTION. THE UPPER REFERENCE LIMIT (URL) OF TROPONIN, DEFINED THE 99TH PERCENTILE OF cTnI DISTRIBUTION IN A REFERENCE POPULATION, HAS BEEN CONFIRMED THE DECISION THRESHOLD FOR AR DIAGNOSIS. Performed By: #### B MP #### [facility] [address] [address] [address] Marcell Coates CARDIAC ISACC ADMITon 023 CK [Catalytic activity/Vol] 64 U/L Normal 26-[address] [facility] Comment on above: Performed By: #### C MADM, LENO, LIPA, CMP ####[facility] [address] [place] [address]Dr. Marcell Coates CK.MB [Mass/Vol] 1.33 ng/mL Normal <=3.60 [facility] Comment on above: Performed By: #### C MADM, LENO, LIPA, CMP ####[facility] [address] [place] [address]Dr. Marcell Coates HSTROP 47.5 pg/mL Normal 4.0-51.3 [facility] Comment on above: Result Comment: CUT- OFF POINTS HAVE BEEN ESTABLISHED BASED ON THE FOURTH UNIVERSAL DEFINITIONS OF MYOCARDIAL INFARCTION. THE UPPER REFERENCE LIMIT (URL) OF TROPONIN, DEFINED THE 99TH PERCENTILE OF cTnI DISTRIBUTION IN A REFERENCE POPULATION, HAS BEEN CONFIRMED THE DECISION THRESHOLD FOR AR DIAGNOSIS. Performed By: #### C MADM, LENO, LIPA, CMP ####[facility] [address] [place] [address]Dr. Marcell Coates CHASITY 44 ng/mL Normal 9-82 [facility] Comment on above: Performed By: #### C MADM, LENO, LIPA, CMP ####[facility] [address] [place] [address]Dr. Marcell Coates CBC AUTO DIFFon 07-15-2022 BASO # 0.1 103/ul Normal 0.0-0.[address] [facility] Comment on above: Performed By: #### B MP #### [facility] [address] [address] [address] Marcell Coates Basophils/100 WBC (Bld) 1.0 % Normal 0.2-2.[address] [facility] Comment on above: Performed By: #### B MP #### [facility] [address] [address] [address] Marcell Coates EO # 0.4 103/ul Normal 0.0-0.[address] [facility] Comment on above: Performed By: #### B MP #### [facility] [address] [address] [address] Marcell Coates Eosinophils/100 WBC (Bld) 3.0 % Normal 0.9-7.[address] [facility] Comment on above: Performed By: #### B MP #### [facility] [address] [address] [address] Marcell Coates Erythrocyte distribution width (RBC) [Ratio] 14.2 % Normal 11.0-15.[address] [facility] Comment on above: Performed By: #### B MP #### [facility] [address] [address] [address] Marcell Coates Hematocrit (Bld) [Volume fraction] 48.1 % Critically high 36.0-48.[address] [facility] Comment on above: Performed By: #### B MP #### [facility] [address] [address] [address] Marcell Coates Hemoglobin (Bld) [Mass/Vol] 15.7 g/dL Normal 12.0-16.[address] [facility] Comment on above: Performed By: #### B MP #### [facility] [address] [place] [address] Dr. Marcell Coates IG # 0.03 10e3/ul Normal 0.00-0.[address] [facility] Comment on above: Performed By: #### B MP #### [facility] [address] [place] [address] Dr. Marcell Coates IG % 0.2 % Normal 0.0-0.[address] [facility] Comment on above: Performed By: #### B MP #### [facility] [address] [place] [address] Dr. Marcell Coates LYMPH # 3.8 103/ul Normal 1.2-3.[address] [facility] Comment on above: Performed By: #### B MP #### [facility] [address] [place] [address] Dr. Marcell Coates Lymphocytes/100 WBC (Bld) 30.5 % Normal 20.5-60.[address] [facility] Comment on above: Performed By: #### B MP #### [facility] [address] [place] [address] Dr. Marcell Coates MANUAL DIFF REQ NO Normal [facility] Comment on above: Performed By: #### B MP #### [facility] [address] [place] [address] Dr. Marcell Coates MCH (RBC) [Entitic mass] 29.1 pg Normal 26.7-34.[address] [facility] Comment on above: Performed By: #### B MP #### [facility] [address] [place] [address] Dr. Marcell Coates MCHC (RBC) [Mass/Vol] 32.6 g/dL Normal 29.9-35.[address] [facility] Comment on above: Performed By: #### B MP #### [facility] [address] [place] [address] Dr. Marcell Coates MCV (RBC) [Entitic vol] 89.2 fL Normal 81.0-99.[address] [facility] Comment on above: Performed By: #### B MP #### [facility] [address] [place] [address] Dr. Marcell Coates MONO # 0.9 103/ul Critically high 0.3-0.[address] [facility] Comment on above: Performed By: #### B MP #### [facility] [address] [place] [address] Dr. Marcell Coates Monocytes/100 WBC (Bld) 6.9 % Normal 1.7-12.[address] [facility] Comment on above: Performed By: #### B MP #### [facility] [address] [place] [address] Dr. Marcell Coates NEUT # 7.3 103/ul Critically high 1.4-6.[address] [facility] Comment on above: Performed By: #### B MP #### [facility] [address] [place] [address] Dr. Marcell Coates Neutrophils/100 WBC (Bld) 58.4 % Normal 43.0-75.[address] [facility] Comment on above: Performed By: #### B MP #### [facility] [address] [place] [address] Dr. Marcell Coates Platelet mean volume (Bld) [Entitic vol] 9.9 fL Normal 9.5-13.5 [facility] Comment on above: Performed By: #### B MP #### [facility] [address] [place] [address] Dr. Marcell Coates PLT 288 103/ul Normal 150-450 [facility] Comment on above: Performed By: #### B MP #### [facility] [address] [place] [address] Dr. Marcell Coates RBC 5.39 106/ul Normal 4.20-5.40 [facility] Comment on above: Performed By: #### B MP #### [facility] [address] [place] [address] Dr. Marcell Coates WBC 12.5 103/ul Critically high 4.0-11.0 [facility] Comment on above: Performed By: #### B MP #### [facility] [address] [place] [address] Dr. Marcell Coates CTA CHEST WO W [...] TRINITY ELLIS Date: 2022-07-15 02:50 Normal [facility] LACTATE/LACTIC ACIDon 2022 Lactate [Moles/Vol] 1.2 mmol/L Normal 0.4-2.0 [facility] Comment on above: Performed By: #### L IPA, LENO, CMP #### [facility] [address] [address] [address] Marcell Coates LIPASEon 07-15-2022 Lipase [Catalytic activity/Vol] 116.0 U/L Normal 73.0-393.[address] [facility] Comment on above: Performed By: #### B MP #### [facility] [address] [place], [place] [address] Dr. Marcell Coates PROF 14(COMP METB)on 023 Albumin [Mass/Vol] 3.5 g/dL Normal 3.4-5.0 [facility] Comment on above: Performed By: #### C MADM, LENO, LIPA, CMP ####[facility] [address] [address]Dr. Marcell Coates Albumin/Globulin [Mass ratio] 1.1 {ratio} Normal [facility] Comment on above: Performed By: #### C MADM, LENO, LIPA, CMP ####[facility] [id number] [address]Dr. Marcell Jaxon ALP [Catalytic activity/Vol] 106 U/L Normal 46-[address] [facility] Comment on above: Performed By: #### C MADM, LENO, LIPA, CMP ####[facility] [address] [address]Dr. Marcell Coates ALT [Catalytic activity/Vol] 31 U/L Normal 14-[address] [facility] Comment on above: Performed By: #### C MADM, LENO, LIPA, CMP ####[facility] [address] [address]Dr. Marcell Coates Anion gap [Moles/Vol] 14.8 mmol/L Normal [facility] Comment on above: Performed By: #### C MADM, LENO, LIPA, CMP ####[facility] [address] [place], [place] [address]Dr. Ansilvio Coates AST [Catalytic activity/Vol] 30 U/L Normal 15-[address] [facility] Comment on above: Performed By: #### C MADM, LENO, LIPA, CMP ####[facility] [address] [address]Dr. Marcell Coates Bilirubin [Mass/Vol] 0.4 mg/dL Normal 0.2-1.[address] [facility] Comment on above: Performed By: #### C MADM, LENO, LIPA, CMP ####[facility] [address] [address]Dr. Marcell Coates Calcium [Mass/Vol] 8.8 mg/dL Normal 8.5-10.1 [facility] Comment on above: Performed By: #### C MADM, LENO, LIPA, CMP ####[facility] [address] [address]Dr. Marcell Coates Chloride [Moles/Vol] 106 mmol/L Normal 98-107 [facility] Comment on above: Performed By: #### C RAFY, LENO, LIPA, CMP ####[facility] [address] [address]Dr. Marcell Coates CO2 [Moles/Vol] 26.6 mmol/L Normal 21.0-32.0 [facility] Comment on above: Performed By: #### C RAFY, LENO, LIPA, CMP ####[facility] [address] [address]Dr. Marcell Coates Creatinine [Mass/Vol] 1.11 mg/dL Critically high 0.55-1.[address] [facility] Comment on above: Performed By: #### C RAFY, LENO, LIPA, CMP ####[facility] [address] [address]Dr. Marcell Coates EGFR-AF BRUNEIAN >60 Normal >=60 [facility] Comment on above: Performed By: #### C RAFY, LENO, LIPA, CMP ####[facility] [address] [address]Dr. Marcell Coates EGFR-NON AF BRUNEIAN 52 mL/min/1.73m2 Critically low >=60 [facility] Comment on above: Performed By: #### C MADJennifer, LENO, LIPA, CMP ####[facility] [address] [address]Dr. Marcell Coates Globulin (S) [Mass/Vol] 3.1 g/dL Normal [facility] Comment on above: Performed By: #### C MADM, LENO, LIPA, CMP ####[facility] [address] [address]Dr. Marcell Coates Glucose [Mass/Vol] 126 mg/dL Critically high 74-106 [facility] Comment on above: Performed By: #### C MADM, LENO, LIPA, CMP ####[facility] [address] [address]Dr. Marcell Coates Potassium [Moles/Vol] 3.4 mmol/L Critically low 3.5-5.1 [facility] Comment on above: Performed By: #### C LENO HILLMAN, LIPA, CMP ####[facility] [address] [address]Dr. Marcell Coates Protein [Mass/Vol] 6.6 g/dL Normal 6.4-8.2 The [facility] Comment on above: Performed By: #### C LENO HILLMAN, LIPA, CMP ####[facility] [address] [address]Dr. Marcell Coates Sodium [Moles/Vol] 144 mmol/L Normal 136-145 The [facility] Comment on above: Performed By: #### C LENO HILLMAN, LIPA, CMP ####[facility] [address] [address]Dr. Marcell Coates Urea nitrogen [Mass/Vol] 16.0 mg/dL Normal 7.0-18.0 [facility] Comment on above: Performed By: #### C LENO HILLMAN, LIPA, CMP ####[facility] [address] [address]Dr. Marcell Coates Urea nitrogen/Creatinine [Mass ratio] 14.4 mg/mg Normal [facility] Comment on above: Performed By: #### C LENO HILLMAN, LIPA, CMP ####[facility] [address] [address]Dr. Marcell Coates XR ABD FLAT UP_PA Germaine [...] PEDRO DILCIA Date: 2022-07-14 23:48 Normal [facility] US SINGLE QUAD RT UPPERon US SINGLE [...] JT GRADY Date: 2022-06-18 12:36 Normal [facility] AMYLASEon 06-14-2022 Amylase [Catalytic activity/Vol] 19 U/L Critically low 25-115 [facility] Comment on above: Performed By: #### L IPA, LENO, CMP #### [facility] [address] [address] [address] Marcell Coates CBC AUTO DIFFon 06-14-2022 BASO # 0.1 103/ul Normal 0.0-0.[address] [facility] Comment on above: Performed By: #### B MP #### [facility] [address] [address] [address] Marcell Coates Basophils/100 WBC (Bld) 0.6 % Normal 0.2-2.[address] [facility] Comment on above: Performed By: #### B MP #### [facility] [address] [address] [address] Marcell Coates EO # 0.3 103/ul Normal 0.0-0.7 [facility] Comment on above: Performed By: #### B MP #### [facility] [address] [place] [address] Dr. Marcell Coates Eosinophils/100 WBC (Bld) 1.8 % Normal 0.9-7.[address] [facility] Comment on above: Performed By: #### B MP #### [facility] [address] [place] [address] Dr. Marcell Coates Erythrocyte distribution width (RBC) [Ratio] 14.2 % Normal 11.0-15.[address] [facility] Comment on above: Performed By: #### B MP #### [facility] [address] [place] [address] Dr. Marcell Coates Hematocrit (Bld) [Volume fraction] 44.9 % Normal 36.0-48.[address] [facility] Comment on above: Performed By: #### B MP #### [facility] [address] [place] [address] Dr. Marcell Coates Hemoglobin (Bld) [Mass/Vol] 14.8 g/dL Normal 12.0-16.0 [facility] Comment on above: Performed By: #### B MP #### [facility] [address] [place] [address] Dr. Marcell Coates IG # 0.18 10e3/ul Critically high 0.00-0.[address] [facility] Comment on above: Performed By: #### B MP #### [facility] [address] [place] [address] Dr. Marcell Coates IG % 1.3 % Critically high 0.0-0.[address] [facility] Comment on above: Performed By: #### B MP #### [facility] [address] [place] [address] Dr. Marcell Coates LYMPH # 3.4 103/ul Normal 1.2-3.8 [facility] Comment on above: Performed By: #### B MP #### [facility] [address] [place] [address] Dr. Marcell Coates Lymphocytes/100 WBC (Bld) 24.4 % Normal 20.5-60.[address] [facility] Comment on above: Performed By: #### B MP #### [facility] [address] [place] [address] Dr. Marcell Coates MANUAL DIFF REQ NO Normal [facility] Comment on above: Performed By: #### B MP #### [facility] [address] [place] [address] Dr. Marcell Coates MCH (RBC) [Entitic mass] 29.4 pg Normal 26.7-34.[address] [facility] Comment on above: Performed By: #### B MP #### [facility] [address] [place] [address] Dr. Marcell Coates MCHC (RBC) [Mass/Vol] 33.0 g/dL Normal 29.9-35.2 [facility] Comment on above: Performed By: #### B MP #### [facility] [address] [place] [address] Dr. Marcell Coates MCV (RBC) [Entitic vol] 89.3 fL Normal 81.0-99.[address] [facility] Comment on above: Performed By: #### B MP #### [facility] [address] [place] [address] Dr. Marcell Coates MONO # 1.1 103/ul Critically high 0.3-0.[address] [facility] Comment on above: Performed By: #### B MP #### [facility] [address] [place] [address] Dr. Marcell Coates Monocytes/100 WBC (Bld) 8.1 % Normal 1.7-12.0 [facility] Comment on above: Performed By: #### B MP #### [facility] [address] [place] [address] Dr. Marcell Coates NEUT # 8.9 103/ul Critically high 1.4-6.[address] [facility] Comment on above: Performed By: #### B MP #### [facility] [address] [place] [address] Dr. Marcell Coates Neutrophils/100 WBC (Bld) 63.8 % Normal 43.0-75.[address] [facility] Comment on above: Performed By: #### B MP #### [facility] [address] [place] [address] Dr. Marcell Coates Platelet mean volume (Bld) [Entitic vol] 10.2 fL Normal 9.5-13.[address] [facility] Comment on above: Performed By: #### B MP #### [facility] [address] [place] [address] Dr. Marcell Coates PLT 284 103/ul Normal 150-450 [facility] Comment on above: Performed By: #### B MP #### [facility] [address] [place] [address] Dr. Marcell Coates RBC 5.03 106/ul Normal 4.20-5.[address] [facility] Comment on above: Performed By: #### B MP #### [facility] [address] [place] [address] Dr. Marcell Coates WBC 13.9 103/ul Critically high 4.0-11.0 [facility] Comment on above: Performed By: #### B MP #### [facility] [address] [place] [address] Dr. Marcell Coates LIPASEon 06-14-2022 Lipase [Catalytic activity/Vol] 81.0 U/L Normal 73.0-393.[address] [facility] Comment on above: Performed By: #### L LENO STERN CMP #### [facility] [address] [place] [address] Dr. Marcell Coates PROF 14(COMP METB)on 023 Albumin [Mass/Vol] 3.5 g/dL Normal 3.4-5.0 [facility] Comment on above: Performed By: #### L LENO STERN CMP #### [facility] [address] [place] [address] Dr. Marcell Coates Albumin/Globulin [Mass ratio] 1.3 {ratio} Normal [facility] Comment on above: Performed By: #### L LENO STERN, CMP #### [facility] [address] [address] [address] Marcell Coates ALP [Catalytic activity/Vol] 121 U/L Critically high 46-[address] [facility] Comment on above: Performed By: #### L LENO STERN, CMP #### [facility] [address] [address] [address] Marcell Coates ALT [Catalytic activity/Vol] 32 U/L Normal 14-[address] [facility] Comment on above: Performed By: #### L LENO STERN, CMP #### [facility] [address] [address] [address] Marcell Coates Anion gap [Moles/Vol] 16.4 mmol/L Normal [facility] Comment on above: Performed By: #### L LENO STERN, CMP #### [facility] [address] [address] [address] Marcell Coates AST [Catalytic activity/Vol] 31 U/L Normal 15-[address] [facility] Comment on above: Performed By: #### L LENO STERN, CMP #### [facility] [address] [address] [address] Marcell Coates Bilirubin [Mass/Vol] 0.5 mg/dL Normal 0.2-1.[address] [facility] Comment on above: Performed By: #### L LENO STERN, CMP #### [facility] [address] [address] [address] Marcell Coates Calcium [Mass/Vol] 8.6 mg/dL Normal 8.5-10.1 [facility] Comment on above: Performed By: #### L LENO STERN, CMP #### [facility] [address] [address] [address] Marcell Coates Chloride [Moles/Vol] 104 mmol/L Normal 98-[address] [facility] Comment on above: Performed By: #### L LENO STERN, CMP #### [facility] [address] [address] [address] Marcell Coates CO2 [Moles/Vol] 21.2 mmol/L Normal 21.0-32.0 [facility] Comment on above: Performed By: #### L LEENA LENO, CMP #### [facility] [address] [address] [address] Marcell Coates Creatinine [Mass/Vol] 1.13 mg/dL Critically high 0.55-1.[address] [facility] Comment on above: Performed By: #### L IPA, LENO, CMP #### [facility] [address] [address] [address] Marcell Coates EGFR-AF BRUNEIAN >60 Normal >=60 [facility] Comment on above: Performed By: #### L IPA, LENO, CMP #### [facility] [address] [address] [address] Marcell Coates EGFR-NON AF BRUNEIAN 51 mL/min/1.73m2 Critically low >=[address] [facility] Comment on above: Performed By: #### L IPA LENO, CMP #### [facility] [address] [address] [address] Marcell Coates Globulin (S) [Mass/Vol] 2.6 g/dL Normal [facility] Comment on above: Performed By: #### L IPA LENO, CMP #### [facility] [address] [address] [address] Marcell Coates Glucose [Mass/Vol] 139 mg/dL Critically high 74-106 [facility] Comment on above: Performed By: #### L LEENA LENO, CMP #### [facility] [address] [address] [address] Marcell Coates Potassium [Moles/Vol] 3.6 mmol/L Normal 3.5-5.[address] [facility] Comment on above: Performed By: #### L IPA LENO, CMP #### [facility] [address] [address] [address] Marcell Coates Protein [Mass/Vol] 6.1 g/dL Critically low 6.4-8.2 [facility] Comment on above: Performed By: #### L IPA LENO, CMP #### [facility] [address] [address] [address] Marcell Coates Sodium [Moles/Vol] 138 mmol/L Normal 136-145 [facility] Comment on above: Performed By: #### L IPA, LENO, CMP #### [facility] [address] [address] [address] Marcell Coates Urea nitrogen [Mass/Vol] 18.0 mg/dL Normal 7.0-18.[address] [facility] Comment on above: Performed By: #### L IPA, LENO, CMP #### [facility] [address] [place] [address] Dr. Marcell Coates Urea nitrogen/Creatinine [Mass ratio] 15.9 mg/mg Normal [facility] Comment on above: Performed By: #### L IPA, LENO, CMP #### [facility] [address] [place] [address] Dr. Marcell Coates TROPONIN, HIGH SENSITIVITYon 06-14-2022 HSTROP 36.3 pg/mL Normal 4.0-51.[address] [facility] Comment on above: Result Comment: CUT- OFF POINTS HAVE BEEN ESTABLISHED BASED ON THE FOURTH UNIVERSAL DEFINITIONS OF MYOCARDIAL INFARCTION. THE UPPER REFERENCE LIMIT (URL) OF TROPONIN, DEFINED THE 99TH PERCENTILE OF cTnI DISTRIBUTION IN A REFERENCE POPULATION, HAS BEEN CONFIRMED THE DECISION THRESHOLD FOR AR DIAGNOSIS. Performed By: #### H STROPN ####[facility] [address] [address]Dr. Marcell Coates AMYLASEon 06-09-2022 Amylase [Catalytic activity/Vol] 22 U/L Critically low 25-[address] [facility] Comment on above: Performed By: #### B MP #### [facility] [address] [place] [address] Dr. Marcell Coates CBC AUTO DIFFon 06-09-2022 BASO # 0.1 103/ul Normal 0.0-0.[address] [facility] Comment on above: Performed By: #### C BC #### [facility] [address] [place] [address] Dr. Marcell Coates Basophils/100 WBC (Bld) 0.6 % Normal 0.2-2.[address] [facility] Comment on above: Performed By: #### C BC #### [facility] [address] [place] [address] Dr. Marcell Coates EO # 0.5 103/ul Normal 0.0-0.[address] [facility] Comment on above: Performed By: #### C BC #### [facility] [address] [place] [address] Dr. Marcell Coates Eosinophils/100 WBC (Bld) 4.0 % Normal 0.9-7.[address] [facility] Comment on above: Performed By: #### C BC #### [facility] [address] [place] [address] Dr. Marcell Coates Erythrocyte distribution width (RBC) [Ratio] 13.9 % Normal 11.0-15.[address] [facility] Comment on above: Performed By: #### C BC #### [facility] [address] [place] [address] Dr. Marcell Coates Hematocrit (Bld) [Volume fraction] 46.2 % Normal 36.0-48.[address] [facility] Comment on above: Performed By: #### C BC #### [facility] [address] [place] [address] Dr. Marcell Coates Hemoglobin (Bld) [Mass/Vol] 15.2 g/dL Normal 12.0-16.[address] [facility] Comment on above: Performed By: #### C BC #### [facility] [address] [place] [address] Dr. Marcell Coates IG # 0.02 10e3/ul Normal 0.00-0.[address] [facility] Comment on above: Performed By: #### C BC #### [facility] [address] [place] [address] Dr. Marcell Coates IG % 0.2 % Normal 0.0-0.5 [facility] Comment on above: Performed By: #### C BC #### [facility] [address] [place] [address] Dr. Marcell Coates LYMPH # 3.8 103/ul Normal 1.2-3.8 [facility] Comment on above: Performed By: #### C BC #### [facility] [address] [place] [address] Dr. Marcell Coates Lymphocytes/100 WBC (Bld) 31.4 % Normal 20.5-60.[address] [facility] Comment on above: Performed By: #### C BC #### [facility] [address] [place] [address] Dr. Marcell Coates MANUAL DIFF REQ NO Normal [facility] Comment on above: Performed By: #### C BC #### [facility] [address] [place] [address] Dr. Marcell Coates MCH (RBC) [Entitic mass] 29.6 pg Normal 26.7-34.[address] [facility] Comment on above: Performed By: #### C BC #### [facility] [address] [place] [address] Dr. Marcell Coates MCHC (RBC) [Mass/Vol] 32.9 g/dL Normal 29.9-35.[address] [facility] Comment on above: Performed By: #### C BC #### [facility] [address] [place] [address] Dr. Marcell Coates MCV (RBC) [Entitic vol] 90.1 fL Normal 81.0-99.[address] [facility] Comment on above: Performed By: #### C BC #### [facility] [address] [place] [address] Dr. Marcell Coates MONO # 0.9 103/ul Critically high 0.3-0.[address] [facility] Comment on above: Performed By: #### C BC #### [facility] [address] [place] [address] Dr. Marcell Coates Monocytes/100 WBC (Bld) 7.7 % Normal 1.7-12.[address] [facility] Comment on above: Performed By: #### C BC #### [facility] [address] [place] [address] Dr. Marcell Coates NEUT # 6.7 103/ul Critically high 1.4-6.[address] [facility] Comment on above: Performed By: #### C BC #### [facility] [address] [place] [address] Dr. Marcell Coates Neutrophils/100 WBC (Bld) 56.1 % Normal 43.0-75.[address] [facility] Comment on above: Performed By: #### C BC #### [facility] [address] [place] [address] Dr. Marcell Coates Platelet mean volume (Bld) [Entitic vol] 9.6 fL Normal 9.5-13.[address] [facility] Comment on above: Performed By: #### C BC #### [facility] [address] [place] [address] Dr. Marcell Coates PLT 297 103/ul Normal 150-450 [facility] Comment on above: Performed By: #### C BC #### [facility] [address] [place] [address] Dr. Marcell Coates RBC 5.13 106/ul Normal 4.20-5.[address] [facility] Comment on above: Performed By: #### C BC #### [facility] [address] [place] [address] Dr. Marcell Coates WBC 11.9 103/ul Critically high 4.0-11.0 [facility] Comment on above: Performed By: #### C BC #### [facility] [address] [place], [place] [id number] Dr. Marcell Coates CT ABD/PELVIS WO CONon [...] OSWALDO SAID Date: 2022-06-09 01:12 Normal [facility] ER URINE PROFILEon 3 Bilirubin Ql (U) Negative Normal NEGATIVE [facility] Comment on above: Performed By: #### B MP #### [facility] [address] [address] [address] Marcell Coates Clarity (U) CLEAR Normal CLEAR [facility] Comment on above: Performed By: #### B MP #### [facility] [address] [address] [address] Marcell Coates Color (U) LT. YELLOW Normal YELLOW [facility] Comment on above: Performed By: #### B MP #### [facility] [address] [place] [address] Dr. Marcell ASHTON A micrscopic examination will be performed if indicated. Normal [facility] Comment on above: Performed By: #### B MP #### [facility] [address] [place] [address] Dr. Marcell Coates Glucose Ql (U) Negative Normal NEGATIVE [facility] Comment on above: Performed By: #### B MP #### [facility] [address] [address] [address] Marcell Coates Hemoglobin Ql (U) Negative Normal NEGATIVE [facility] Comment on above: Performed By: #### B MP #### [facility] [address] [address] [address] Marcell Coates Ketones Ql (U) Negative Normal NEGATIVE [facility] Comment on above: Performed By: #### B MP #### [facility] [address] [address] [address] Marcell Coates LEUKOCYTES Negative Normal NEGATIVE [facility] Comment on above: Performed By: #### B MP #### [facility] [address] [address] [address] Marcell Coates Nitrite Ql (U) Negative Normal NEGATIVE [facility] Comment on above: Performed By: #### B MP #### [facility] [address] [place] [address] Dr. Marcell Coates pH (U) 6.0 [pH] Normal 5-[address] [facility] Comment on above: Performed By: #### B MP #### [facility] [address] [place] [address] Dr. Marcell Coates Protein (U) [Mass/Vol] 30 mg/dL Abnormal NEGAT CASEY/ TRACE [facility] Comment on above: Performed By: #### B MP #### [facility] [address] [place] [address] Dr. Marcell Coates SPEC GRAVITY <=1.005 Abnormal 1.005-<=1.[address] [facility] Comment on above: Performed By: #### B MP #### [facility] [address] [place] [address] Dr. Marcell Coates UR MICRO IND NOT INDICATED Normal [facility] Comment on above: Performed By: #### B MP #### [facility] [address] [place] [address] Dr. Marcell Coates Urobilinogen Qn (U) 0.2 {Jl'U}/dL Normal 0.2 - 1. 0 [facility] Comment on above: Performed By: #### B MP #### [facility] [address] [place] [address] Dr. Marcell Coates LIPASEon 06-09-2022 Lipase [Catalytic activity/Vol] 82.0 U/L Normal 73.0-393.[address] [facility] Comment on above: Performed By: #### B MP #### [facility] [address] [place] [address] Dr. Marcell Coates PROF 14(COMP METB)on 023 Albumin [Mass/Vol] 3.6 g/dL Normal 3.4-5.0 [facility] Comment on above: Performed By: #### B MP #### [facility] [address] [place] [address] Dr. Marcell Coates Albumin/Globulin [Mass ratio] 1.2 {ratio} Normal [facility] Comment on above: Performed By: #### B MP #### [facility] [address] [address] [address] Marcell Coates ALP [Catalytic activity/Vol] 92 U/L Normal 46-[address] [facility] Comment on above: Performed By: #### B MP #### [facility] [address] [address] [address] Marcell Coates ALT [Catalytic activity/Vol] 30 U/L Normal 14-[address] [facility] Comment on above: Performed By: #### B MP #### [facility] [address] [place] [address] Dr. Marcell Coates Anion gap [Moles/Vol] 12.0 mmol/L Normal [facility] Comment on above: Performed By: #### B MP #### [facility] [address] [place] [address] Dr. Marcell Coates AST [Catalytic activity/Vol] 25 U/L Normal 15-[address] [facility] Comment on above: Performed By: #### B MP #### [facility] [address] [place] [address] Dr. Marcell Coates Bilirubin [Mass/Vol] 0.4 mg/dL Normal 0.2-1.[address] [facility] Comment on above: Performed By: #### B MP #### [facility] [address] [place] [address] Dr. Marcell Coates Calcium [Mass/Vol] 8.7 mg/dL Normal 8.5-10.1 [facility] Comment on above: Performed By: #### B MP #### [facility] [address] [place] [address] Dr. Marcell Coates Chloride [Moles/Vol] 103 mmol/L Normal 98-[address] [facility] Comment on above: Performed By: #### B MP #### [facility] [address] [place] [address] Dr. Marcell Coates CO2 [Moles/Vol] 24.5 mmol/L Normal 21.0-32.0 [facility] Comment on above: Performed By: #### B MP #### [facility] [address] [place], [place] [id number] Dr. Marcell Coates Creatinine [Mass/Vol] 1.04 mg/dL Critically high 0.55-1.[address] [facility] Comment on above: Performed By: #### B MP #### [facility] [address] [place] [address] Dr. Marcell Coates EGFR-AF BRUNEIAN >60 Normal >=60 [facility] Comment on above: Performed By: #### B MP #### [facility] [address] [address] [address] Marcell Coates EGFR-NON AF BRUNEIAN 56 mL/min/1.73m2 Critically low >=[address] [facility] Comment on above: Performed By: #### B MP #### [facility] [address] [place] [address] Dr. Marcell Coates Globulin (S) [Mass/Vol] 3.0 g/dL Normal [facility] Comment on above: Performed By: #### B MP #### [facility] [address] [place] [address] Dr. Marcell Coates Glucose [Mass/Vol] 109 mg/dL Critically high 74-106 [facility] Comment on above: Performed By: #### B MP #### [facility] [address] [place] [address] Dr. Marcell Coates Potassium [Moles/Vol] 3.5 mmol/L Normal 3.5-5.[address] [facility] Comment on above: Performed By: #### B MP #### [facility] [address] [place] [address] Dr. Marcell Coates Protein [Mass/Vol] 6.6 g/dL Normal 6.4-8.2 The [facility] Comment on above: Performed By: #### B MP #### [facility] [address] [place] [address] Dr. Marcell Coates Sodium [Moles/Vol] 136 mmol/L Normal 136-145 [facility] Comment on above: Performed By: #### B MP #### [facility] [address] [place] [address] Dr. Marcell Coates Urea nitrogen [Mass/Vol] 10.0 mg/dL Normal 7.0-18.[address] [facility] Comment on above: Performed By: #### B MP #### [facility] [address] [place] [address] Dr. Marcell Coates Urea nitrogen/Creatinine [Mass ratio] 9.6 mg/mg Normal [facility] Comment on above: Performed By: #### B MP #### [facility] [address] [place] [address] Dr. Marcell Coates XR CHEST 1 Von [...] by: LIOR JIANG Date: 2022-05-11 03:[address] [facility] BNPon 04-22-2022 Natriuretic peptide B (Bld) [Mass/Vol] 9289.0 pg/mL Critically high <=450.0 [facility] Comment on above: Performed By: #### B HEEL EMERY BUFFER, BMP #### [facility] [address] [place] [address] Dr. Marcell Coates CBC AUTO DIFFon 04-22-2022 BASO # 0.1 103/ul Normal 0.0-0.[address] [facility] Comment on above: Performed By: #### L LENO STERN, CMP #### [facility] [address] [place] [address] Dr. Marcell Coates Basophils/100 WBC (Bld) 0.6 % Normal 0.2-2.[address] [facility] Comment on above: Performed By: #### L LENO STERN, CMP #### [facility] [address] [place] [address] Dr. Marcell Coates EO # 0.4 103/ul Normal 0.0-0.[address] [facility] Comment on above: Performed By: #### L LENO STERN, CMP #### [facility] [address] [place] [address] Dr. Marcell Coates Eosinophils/100 WBC (Bld) 2.9 % Normal 0.9-7.[address] [facility] Comment on above: Performed By: #### L LENO STERN, CMP #### [facility] [address] [place] [address] Dr. Marcell Coates Erythrocyte distribution width (RBC) [Ratio] 14.5 % Normal 11.0-15.[address] [facility] Comment on above: Performed By: #### L LENO STERN, CMP #### [facility] [address] [place] [address] Dr. Marcell Coates Hematocrit (Bld) [Volume fraction] 41.6 % Normal 36.0-48.[address] [facility] Comment on above: Performed By: #### L LENO STERN, CMP #### [facility] [address] [place] [address] Dr. Marcell Coates Hemoglobin (Bld) [Mass/Vol] 13.1 g/dL Normal 12.0-16.[address] [facility] Comment on above: Performed By: #### L LENO STERN, CMP #### [facility] [address] [place] [address] Dr. Marcell Coates IG # 0.05 10e3/ul Critically high 0.00-0.03 [facility] Comment on above: Performed By: #### L LENO STERN, CMP #### [facility] [address] [place], [place] [id number] Dr. Marcell Coates IG % 0.4 % Normal 0.0-0.5 [facility] Comment on above: Performed By: #### L LENO SETRN, CMP #### [facility] [address] [place] [address] Dr. Marcell Coates LYMPH # 3.1 103/ul Normal 1.2-3.8 [facility] Comment on above: Performed By: #### L LENO STERN, CMP #### [facility] [address] [place] [address] Dr. Marcell Coates Lymphocytes/100 WBC (Bld) 22.1 % Normal 20.5-60.0 [facility] Comment on above: Performed By: #### L LENO STERN, CMP #### [facility] [address] [place] [address] Dr. Marcell Coates MANUAL DIFF REQ NO Normal [facility] Comment on above: Performed By: #### L LENO STERN, CMP #### [facility] [address] [place] [address] Dr. Marcell Coates MCH (RBC) [Entitic mass] 29.8 pg Normal 26.7-34.0 [facility] Comment on above: Performed By: #### L LENO STERN, CMP #### [facility] [address] [place] [address] Dr. Marcell Coates MCHC (RBC) [Mass/Vol] 31.5 g/dL Normal 29.9-35.2 [facility] Comment on above: Performed By: #### L LENO STERN, CMP #### [facility] [address] [place] [address] Dr. Marcell Coates MCV (RBC) [Entitic vol] 94.5 fL Normal 81.0-99.0 [facility] Comment on above: Performed By: #### L LENO STERN, CMP #### [facility] [address] [place] [address] Dr. Marcell Coates MONO # 0.9 103/ul Critically high 0.3-0.[address] [facility] Comment on above: Performed By: #### L LENO STERN, CMP #### [facility] [address] [address] [address] Marcell Coates Monocytes/100 WBC (Bld) 6.1 % Normal 1.7-12.[address] [facility] Comment on above: Performed By: #### L IPA, LENO, CMP #### [facility] [address] [address] [address] Marcell Coates NEUT # 9.5 103/ul Critically high 1.4-6.5 [facility] Comment on above: Performed By: #### L IPA LENO, CMP #### [facility] [address] [address] [address] Marcell Coates Neutrophils/100 WBC (Bld) 67.9 % Normal 43.0-75.[address] [facility] Comment on above: Performed By: #### L LEENA LENO, CMP #### [facility] [address] [place] [address] Dr. Marcell Coates Platelet mean volume (Bld) [Entitic vol] 10.0 fL Normal 9.5-13.[address] [facility] Comment on above: Performed By: #### L LENO STERN, CMP #### [facility] [address] [place] [address] Dr. Marcell Coates PLT 285 103/ul Normal 150-450 [facility] Comment on above: Performed By: #### L LENO STERN, CMP #### [facility] [address] [place] [address] Dr. Marcell Coates RBC 4.40 106/ul Normal 4.20-5.40 [facility] Comment on above: Performed By: #### L IPA LENO, CMP #### [facility] [address] [place] [address] Dr. Marcell Coates WBC 13.9 103/ul Critically high 4.0-11.0 [facility] Comment on above: Performed By: #### L IPA, LENO, CMP #### [facility] [address] [place] [address] Dr. Marcell Coates PROF CHEM 8 (BAS METB)on Anion gap [Moles/Vol] 15.0 mmol/L Normal [facility] Comment on above: Performed By: #### B HEEL EMERY BUFFER, BMP #### [facility] [address] [place] [address] Dr. Marcell Coates Calcium [Mass/Vol] 9.1 mg/dL Normal 8.5-10.1 [facility] Comment on above: Performed By: #### B HEEL EMERY BUFFER, BMP #### [facility] [address] [place] [address] Dr. Marcell Coates Chloride [Moles/Vol] 107 mmol/L Normal 98-[address] [facility] Comment on above: Performed By: #### B HEEL EMERY BUFFER, BMP #### [facility] [address] [place] [address] Dr. Marcell Coates CO2 [Moles/Vol] 23.4 mmol/L Normal 21.0-32.0 [facility] Comment on above: Performed By: #### B HEEL EMERY BUFFER, BMP #### [facility] [address] [place] [address] Dr. Marcell Coates Creatinine [Mass/Vol] 1.00 mg/dL Normal 0.55-1.[address] [facility] Comment on above: Performed By: #### B HEEL EMERY BUFFER, BMP #### [facility] [address] [place] [address] Dr. Marcell Coates EGFR-AF BRUNEIAN >60 Normal >=60 [facility] Comment on above: Performed By: #### B HEEL EMERY BUFFER, BMP #### [facility] [address] [place] [address] Dr. Marcell Coates EGFR-NON AF BRUNEIAN 59 mL/min/1.73m2 Critically low >=[address] [facility] Comment on above: Performed By: #### B HEEL EMERY BUFFER, BMP #### [facility] [address] [place] [address] Dr. Marcell Coates Glucose [Mass/Vol] 166 mg/dL Critically high 74-106 [facility] Comment on above: Performed By: #### B HEEL EMERY BUFFER, BMP #### [facility] [address] [place] [address] Dr. Marcell Coates Potassium [Moles/Vol] 3.4 mmol/L Critically low 3.5-5.[address] [facility] Comment on above: Performed By: #### B HEEL EMERY BUFFER, BMP #### [facility] [address] [address] [address] Marcell Coates Sodium [Moles/Vol] 142 mmol/L Normal 136-145 [facility] Comment on above: Performed By: #### B HEEL EMERY BUFFER, BMP #### [facility] [address] [address] [address] Marcell Coates Urea nitrogen [Mass/Vol] 21.0 mg/dL Critically high 7.0-18.[address] [facility] Comment on above: Performed By: #### B HEEL EMERY BUFFER, BMP #### [facility] [address] [address] [address] Marcell Coates Urea nitrogen/Creatinine [Mass ratio] 21.0 mg/mg Normal [facility] Comment on above: Performed By: #### B HEEL EMERY BUFFER, BMP #### [facility] [address] [address] [address] Marcell Coates TROPONIN, HIGH SENSITIVITYon 04-22-2022 HSTROP 48.9 pg/mL Normal 4.0-51.[address] [facility] Comment on above: Result Comment: CUT- OFF POINTS HAVE BEEN ESTABLISHED BASED ON THE FOURTH UNIVERSAL DEFINITIONS OF MYOCARDIAL INFARCTION. THE UPPER REFERENCE LIMIT (URL) OF TROPONIN, DEFINED THE 99TH PERCENTILE OF cTnI DISTRIBUTION IN A REFERENCE POPULATION, HAS BEEN CONFIRMED THE DECISION THRESHOLD FOR AR DIAGNOSIS. Performed By: #### H STROPN ####[facility] [id number] [address]Dr. Marcell Coates XR CHEST 1 Von 04-22-2022 [...] LIZANDRO LATIF Date: 2022-04-22 19:45 Normal [facility] CARDIAC ISACC 3-6on 2 CK [Catalytic activity/Vol] 63 U/L Normal 26-192 [facility] Comment on above: Performed By: #### C JOHNSONP ####[facility] [id number] [place], [place] [address]Pb. Marcell Coates CK.MB [Mass/Vol] 1.16 ng/mL Normal <=3.60 [facility] Comment on above: Performed By: #### C JOHNSONP ####[facility] [id number] [id number]. Marcell Coates HSTROP 27.4 pg/mL Normal 4.0-51.3 [facility] Comment on above: Result Comment: CUT- OFF POINTS HAVE BEEN ESTABLISHED BASED ON THE FOURTH UNIVERSAL DEFINITIONS OF MYOCARDIAL INFARCTION. THE UPPER REFERENCE LIMIT (URL) OF TROPONIN, DEFINED THE 99TH PERCENTILE OF cTnI DISTRIBUTION IN A REFERENCE POPULATION, HAS BEEN CONFIRMED THE DECISION THRESHOLD FOR AR DIAGNOSIS. Performed By: #### C JOHNSONP ####[facility] [id number] [id number]. Marcell Coates CARDIAC ISACC ADMITon 022 CK [Catalytic activity/Vol] 67 U/L Normal 26-192 [facility] Comment on above: Performed By: #### C RAFY, BMP ####[facility] [id number] [place], [place] [address]Df. Marcell Coates CK.MB [Mass/Vol] 0.84 ng/mL Normal <=3.60 [facility] Comment on above: Performed By: #### C RAFY, BMP ####[facility] [id number] [id number]. Marcell Coates HSTROP 25.4 pg/mL Normal 4.0-51.3 [facility] Comment on above: Result Comment: CUT- OFF POINTS HAVE BEEN ESTABLISHED BASED ON THE FOURTH UNIVERSAL DEFINITIONS OF MYOCARDIAL INFARCTION. THE UPPER REFERENCE LIMIT (URL) OF TROPONIN, DEFINED THE 99TH PERCENTILE OF cTnI DISTRIBUTION IN A REFERENCE POPULATION, HAS BEEN CONFIRMED THE DECISION THRESHOLD FOR AR DIAGNOSIS. Performed By: #### C RAFY, BMP ####[facility] [id number] [id number]. Marcell Coates CHASITY 44 ng/mL Normal 9-82 [facility] Comment on above: Performed By: #### C MADM, BMP ####[facility] [id number] [id number]. Marcell Coates CBC AUTO DIFFon 01-22-2022 BASO # 0.1 103/ul Normal 0.0-0.[address] [facility] Comment on above: Performed By: #### L IPA, LENO, CMP #### [facility] [address] [address] [address] Marcell Coates Basophils/100 WBC (Bld) 0.7 % Normal 0.2-2.[address] [facility] Comment on above: Performed By: #### L IPA, LENO, CMP #### [facility] [address] [place] [address] Dr. Marcell Coates EO # 0.5 103/ul Normal 0.0-0.[address] [facility] Comment on above: Performed By: #### L IPA LENO, CMP #### [facility] [address] [address] [address] Marcell Coates Eosinophils/100 WBC (Bld) 4.4 % Normal 0.9-7.[address] [facility] Comment on above: Performed By: #### L IPA, LENO, CMP #### [facility] [address] [address] [address] Marcell Coates Erythrocyte distribution width (RBC) [Ratio] 13.3 % Normal 11.0-15.[address] [facility] Comment on above: Performed By: #### L IPA, LENO, CMP #### [facility] [address] [address] [address] Marcell Coates Hematocrit (Bld) [Volume fraction] 41.9 % Normal 36.0-48.[address] [facility] Comment on above: Performed By: #### L IPA, LENO, CMP #### [facility] [address] [address] [address] Marcell Coates Hemoglobin (Bld) [Mass/Vol] 14.2 g/dL Normal 12.0-16.[address] [facility] Comment on above: Performed By: #### L IPA, LENO, CMP #### [facility] [address] [place] [address] Dr. Marcell Coates IG # 0.03 10e3/ul Normal 0.00-0.[address] [facility] Comment on above: Performed By: #### L IPA, LENO, CMP #### [facility] [address] [place] [address] Dr. Marcell Coates IG % 0.2 % Normal 0.0-0.[address] [facility] Comment on above: Performed By: #### L IPA, LENO, CMP #### [facility] [address] [place] [address] Dr. Marcell Coates LYMPH # 4.0 103/ul Critically high 1.2-3.8 [facility] Comment on above: Performed By: #### L IPA, LENO, CMP #### [facility] [address] [place] [address] Dr. Marcell Coates Lymphocytes/100 WBC (Bld) 32.9 % Normal 20.5-60.[address] [facility] Comment on above: Performed By: #### L IPA LENO, CMP #### [facility] [address] [place] [address] Dr. Marcell Coates MANUAL DIFF REQ NO Normal [facility] Comment on above: Performed By: #### L IPA, LENO, CMP #### [facility] [address] [place] [address] Dr. Marcell Coates MCH (RBC) [Entitic mass] 30.3 pg Normal 26.7-34.[address] [facility] Comment on above: Performed By: #### L IPA, LENO, CMP #### [facility] [address] [place] [address] Dr. Marcell Coates MCHC (RBC) [Mass/Vol] 33.9 g/dL Normal 29.9-35.[address] [facility] Comment on above: Performed By: #### L IPA, LENO, CMP #### [facility] [address] [place] [address] Dr. Marcell Coates MCV (RBC) [Entitic vol] 89.5 fL Normal 81.0-99.0 [facility] Comment on above: Performed By: #### L LENO STERN, CMP #### [facility] [address] [place] [address] Dr. Marcell Coates MONO # 0.9 103/ul Critically high 0.3-0.[address] [facility] Comment on above: Performed By: #### L LENO STERN, CMP #### [facility] [address] [place] [address] Dr. Marcell Coates Monocytes/100 WBC (Bld) 7.3 % Normal 1.7-12.0 [facility] Comment on above: Performed By: #### L LENO STERN, CMP #### [facility] [address] [place] [address] Dr. Marcell Coates NEUT # 6.6 103/ul Critically high 1.4-6.[address] [facility] Comment on above: Performed By: #### L LENO STERN, CMP #### [facility] [address] [place] [address] Dr. Marcell Coates Neutrophils/100 WBC (Bld) 54.5 % Normal 43.0-75.0 [facility] Comment on above: Performed By: #### L LENO STERN, CMP #### [facility] [address] [place] [address] Dr. Marcell Coates Platelet mean volume (Bld) [Entitic vol] 10.0 fL Normal 9.5-13.5 [facility] Comment on above: Performed By: #### L LENO STERN, CMP #### [facility] [address] [place] [address] Dr. Marcell Coates PLT 250 103/ul Normal 150-450 [facility] Comment on above: Performed By: #### L LENO STERN, CMP #### [facility] [address] [place] [address] Dr. Marcell Coates RBC 4.68 106/ul Normal 4.20-5.40 [facility] Comment on above: Performed By: #### L LENO STERN, CMP #### [facility] [address] [address] [address] Marcell Coates WBC 12.1 103/ul Critically high 4.0-11.0 [facility] Comment on above: Performed By: #### L LENO STERN, CMP #### [facility] [address] [address] HEAD WO CONon [...] HAYLEE KILPATRICK Date: 2022-01-22 01:46 Normal [facility] PROF CHEM 8 (BAS METB)on Anion gap [Moles/Vol] 13.4 mmol/L Normal [facility] Comment on above: Performed By: #### C LILLY HILLMAN ####[facility] [address] [address]DrSherrie Coates Calcium [Mass/Vol] 9.6 mg/dL Normal 8.5-10.1 The [facility] Comment on above: Performed By: #### C RAFY BMP ####[facility] [address] [phone] Coates Chloride [Moles/Vol] 103 mmol/L Normal 98-[address] [facility] Comment on above: Performed By: #### C RAFY, BMP ####[facility] [address] [phone] Coates CO2 [Moles/Vol] 25.4 mmol/L Normal 21.0-32.0 [facility] Comment on above: Performed By: #### C MADM, BMP ####[facility] [address] [id number]. Marcell Coates Creatinine [Mass/Vol] 0.97 mg/dL Normal 0.55-1.[address] [facility] Comment on above: Performed By: #### C MADM, BMP ####[facility] [address] [id number]. Marcell Coates EGFR-AF BRUNEIAN >60 Normal >=60 [facility] Comment on above: Performed By: #### C MADM, BMP ####[facility] [address] [id number]. Marcell Coates EGFR-NON AF BRUNEIAN >60 Normal >=[address] [facility] Comment on above: Performed By: #### C MADM, BMP ####[facility] [address] [place] [phone]. Marcell Coates Glucose [Mass/Vol] 146 mg/dL Critically high 74-106 [facility] Comment on above: Performed By: #### C MADM, BMP ####[facility] [address] [place] [phone]. Marcell Coates Potassium [Moles/Vol] 3.8 mmol/L Normal 3.5-5.[address] [facility] Comment on above: Performed By: #### C MADM, BMP ####[facility] [address] [place] [phone]. Marcell Coates Sodium [Moles/Vol] 138 mmol/L Normal 136-145 [facility] Comment on above: Performed By: #### C MADM, BMP ####[facility] [address] [place] [phone]. Marcell Coates Urea nitrogen [Mass/Vol] 19.0 mg/dL Critically high 7.0-18.[address] [facility] Comment on above: Performed By: #### C MADM, BMP ####[facility] [address] [place] [phone]. Marcell Coates Urea nitrogen/Creatinine [Mass ratio] 19.6 mg/mg Normal [facility] Comment on above: Performed By: #### C MADM, [facility] ####[facility] [address] [phone]. Marcell Coates XR CHEST 1 Von 01-22-2022 [...] Minal HARRIS Date: 2022-01-22 01:40 Normal [facility] XR SHOULDER LT 2V or >on XR [...] Minal HARRIS Date: 2022-01-22 04:36 Normal [facility] CBC AUTO DIFFon 12-22-2021 BASO # 0.1 103/ul Normal 0.0-0.[address] [facility] Comment on above: Performed By: #### C BC ####[facility] [address] [phone]. Marcell Coates Basophils/100 WBC (Bld) 0.6 % Normal 0.2-2.0 [facility] Comment on above: Performed By: #### C BC ####[facility] [address] [place] [phone]. Marcell Coates EO # 0.6 103/ul Normal 0.0-0.7 [facility] Comment on above: Performed By: #### C BC ####[facility] [address] [address]Dr. Marcell Coates Eosinophils/100 WBC (Bld) 4.8 % Normal 0.9-7.[address] [facility] Comment on above: Performed By: #### C BC ####[facility] [address] [address]Dr. Marcell Coates Erythrocyte distribution width (RBC) [Ratio] 13.5 % Normal 11.0-15.[address] [facility] Comment on above: Performed By: #### C BC ####[facility] [address] [place], [place] [address]Dr. Marcell Coates Hematocrit (Bld) [Volume fraction] 43.7 % Normal 36.0-48.[address] [facility] Comment on above: Performed By: #### C BC ####[facility] [address] [place], [place] [address]Dr. Marcell Coates Hemoglobin (Bld) [Mass/Vol] 14.4 g/dL Normal 12.0-16.[address] [facility] Comment on above: Performed By: #### C BC ####[facility] [address] [place], [place] [address]Dr. Marcell Caotes IG # 0.04 10e3/ul Critically high 0.00-0.03 [facility] Comment on above: Performed By: #### C BC ####[facility] [address] [place], [place] [address]Dr. Marcell Coates IG % 0.3 % Normal 0.0-0.5 [facility] Comment on above: Performed By: #### C BC ####[facility] [address] [place], [place] [address]Dr. Marcell Coates LYMPH # 3.2 103/ul Normal 1.2-3.8 [facility] Comment on above: Performed By: #### C BC ####[facility] [address] [place], [place] [address]Dr. Marcell Coates Lymphocytes/100 WBC (Bld) 24.6 % Normal 20.5-60.[address] [facility] Comment on above: Performed By: #### C BC ####[facility] [address] [place] [phone]. Marcell Coates MANUAL DIFF REQ NO Normal [facility] Comment on above: Performed By: #### C BC ####[facility] [address] [place] [phone]. Marcell Coates MCH (RBC) [Entitic mass] 29.9 pg Normal 26.7-34.0 [facility] Comment on above: Performed By: #### C BC ####[facility] [address] [place], [place] [id number]. Marcell Coates MCHC (RBC) [Mass/Vol] 33.0 g/dL Normal 29.9-35.[address] [facility] Comment on above: Performed By: #### C BC ####[facility] [address] [place], [place] [address]Dr. Marcell Coates MCV (RBC) [Entitic vol] 90.9 fL Normal 81.0-99.[address] [facility] Comment on above: Performed By: #### C BC ####[facility] [address] [place], [place] [id number]. Marcell Coates MONO # 1.2 103/ul Critically high 0.3-0.8 [facility] Comment on above: Performed By: #### C BC ####[facility] [address] [place], [place] [address]Dr. Marcell Coates Monocytes/100 WBC (Bld) 9.1 % Normal 1.7-12.0 [facility] Comment on above: Performed By: #### C BC ####[facility] [address] [place], [place] [address]Dr. Marcell Coates NEUT # 7.9 103/ul Critically high 1.4-6.[address] [facility] Comment on above: Performed By: #### C BC ####[facility] [address] [place], [place] [id number]. Marcell Coates Neutrophils/100 WBC (Bld) 60.6 % Normal 43.0-75.0 [facility] Comment on above: Performed By: #### C BC ####[facility] [address] [place], [place] [address]Oj. Marcell Coates Platelet mean volume (Bld) [Entitic vol] 10.2 fL Normal 9.5-13.[address] [facility] Comment on above: Performed By: #### C BC ####[facility] [address] [place], [place] [address]El. Marcell Coates PLT 284 103/ul Normal 150-450 [facility] Comment on above: Performed By: #### C BC ####[facility] [address] [place], [place] [address]Fp. Marcell Coates RBC 4.81 106/ul Normal 4.20-5.[address] [facility] Comment on above: Performed By: #### C BC ####[facility] [address] [place], [place] [address]Jk. Marcell Coates WBC 13.0 103/ul Critically high 4.0-11.0 [facility] Comment on above: Performed By: #### C BC ####[facility] [address] [place], [place] [address]Ia. Marcell Coates CTA CHEST WO W CONon [...] LIOR JIANG Date: 2021-12-22 03:52 Normal [facility] Covid-19 PCR ([facility])on SARS-CoV-2 (COVID-19) RNA RUSSELL+probe Ql (Unsp spec) Not detected Normal NOT DETECTED [facility] Comment on above: Result Comment: When diagnostic [...] for this test is supported by the Occupational Hygienist of Health and Human Service's declaration that [...] By: #### L LENO STERN CMP #### [facility] [address] [place], [place] [address] Dr. Marcell Coates INFLUENZA A AND B AGon 12-22 INFLUENZA A AG Negative Normal NEGATIVE SEE COMMENT [facility] Comment on above: Performed By: #### I NFLUAB ####[facility] [address] [address]Dr. Marcell Coates INFLUENZA B AG Negative Normal NEGATIVE SEE COMMENT [facility] Comment on above: Performed By: #### I NFLUAB ####[facility] [address] [place], [place] [address]Dr. Marcell Coates INFLUPOSH SEE BELOW Normal [facility] Comment on above: Result Comment: NOTE : Live attenuated influenzae vaccine viruses can cause a positive result for a rapid influenza diagnostic test if administered up to 7 days prior to rapid testing. Performed By: #### I NFLUAB ####[facility] [address] [place], [place] [address]Dr. Marcell Coates INFLUPOSHB SEE BELOW Normal [facility] Comment on above: Result Comment: NOTE : Live attenuated influenzae vaccine viruses can cause a positive result for a rapid influenza diagnostic test if administered up to 7 days prior to rapid testing. Performed By: #### I NFLUAB ####[facility] [address] [place], [place] [address]Dr. Marcell Coates INTERNAL CONTROLS Within Normal Limits Normal Wi thin Normal Limits [facility] Comment on above: Performed By: #### I NFLUAB ####[facility] [address] [place], [place] [address]DrSherrie Coates PROF CHEM 8 (BAS METB)on Anion gap [Moles/Vol] 14.3 mmol/L Normal [facility] Comment on above: Performed By: #### B MP #### [facility] [address] [place] [address] Dr. Marcell Coates Calcium [Mass/Vol] 9.0 mg/dL Normal 8.5-10.1 [facility] Comment on above: Performed By: #### B MP #### [facility] [address] [address] [address] Marcell Coates Chloride [Moles/Vol] 105 mmol/L Normal 98-[address] [facility] Comment on above: Performed By: #### B MP #### [facility] [address] [address] [address] Marcell Coates CO2 [Moles/Vol] 24.6 mmol/L Normal 21.0-32.0 [facility] Comment on above: Performed By: #### B MP #### [facility] [address] [address] [address] Marcell Coates Creatinine [Mass/Vol] 1.19 mg/dL Critically high 0.55-1.[address] [facility] Comment on above: Performed By: #### B MP #### [facility] [address] [address] [address] Marcell Coates EGFR-AF BRUNEIAN 59 mL/min/1.73m2 Critically low >=[address] [facility] Comment on above: Performed By: #### B MP #### [facility] [address] [address] [address] Marcell Coates EGFR-NON AF BRUNEIAN 48 mL/min/1.73m2 Critically low >=[address] [facility] Comment on above: Performed By: #### B MP #### [facility] [address] [address] [address] Marcell Coates Glucose [Mass/Vol] 124 mg/dL Critically high 74-106 [facility] Comment on above: Performed By: #### B MP #### [facility] [address] [place] [address] Dr. Marcell Coates Potassium [Moles/Vol] 3.9 mmol/L Normal 3.5-5.[address] [facility] Comment on above: Performed By: #### B MP #### [facility] [address] [address] [address] Marcell Coates Sodium [Moles/Vol] 140 mmol/L Normal 136-145 [facility] Comment on above: Performed By: #### B MP #### [facility] [address] [address] [address] Marcell Coates Urea nitrogen [Mass/Vol] 18.0 mg/dL Normal 7.0-18.[address] [facility] Comment on above: Performed By: #### B MP #### [facility] [address] [address] [address] Marcell Coates Urea nitrogen/Creatinine [Mass ratio] 15.1 mg/mg Normal [facility] Comment on above: Performed By: #### B MP #### [facility] [address] [address] [address] Marcell Coates XR CHEST 1 Von [...] LIOR JIANG Date: 2021-12-22 01:41 Normal [facility] CBC AUTO DIFFon 11-07-2021 BASO # 0.1 103/ul Normal 0.0-0.[address] [facility] Comment on above: Performed By: #### C BC ####[facility] [address] [address]Dr. Marcell Coates Basophils/100 WBC (Bld) 1.0 % Normal 0.2-2.0 [facility] Comment on above: Performed By: #### C BC ####[facility] [address] [address]DrSherrie Coates EO # 0.4 103/ul Normal 0.0-0.7 [facility] Comment on above: Performed By: #### C BC ####[facility] [address] [address]DrSherrie Coates Eosinophils/100 WBC (Bld) 3.7 % Normal 0.9-7.0 [facility] Comment on above: Performed By: #### C BC ####[facility] [address] [address]DrSherrie Coates Erythrocyte distribution width (RBC) [Ratio] 13.8 % Normal 11.0-15.0 [facility] Comment on above: Performed By: #### C BC ####[facility] [address] [address]Dr. Marcell Coates Hematocrit (Bld) [Volume fraction] 45.2 % Normal 36.0-48.0 [facility] Comment on above: Performed By: #### C BC ####[facility] [address] [place] [address]Dr. Marcell Coates Hemoglobin (Bld) [Mass/Vol] 15.2 g/dL Normal 12.0-16.0 [facility] Comment on above: Performed By: #### C BC ####[facility] [address] [place], [place] [address]Dr. Marcell Coates IG # 0.03 10e3/ul Normal 0.00-0.03 [facility] Comment on above: Performed By: #### C BC ####[facility] [address] [place], [place] [address]Dr. Marcell Coates IG % 0.3 % Normal 0.0-0.5 [facility] Comment on above: Performed By: #### C BC ####[facility] [address] [place], [place] [address]Dr. Marcell Coates LYMPH # 4.0 103/ul Critically high 1.2-3.[address] [facility] Comment on above: Performed By: #### C BC ####[facility] [address] [place], [place] [address]Dr. Marcell Coates Lymphocytes/100 WBC (Bld) 34.8 % Normal 20.5-60.0 [facility] Comment on above: Performed By: #### C BC ####[facility] [address] [place], [place] [address]Dr. Marcell Coates MANUAL DIFF REQ NO Normal [facility] Comment on above: Performed By: #### C BC ####[facility] [address] [place], [place] [address]Dr. Marcell Coates MCH (RBC) [Entitic mass] 30.3 pg Normal 26.7-34.0 [facility] Comment on above: Performed By: #### C BC ####[facility] [address] [place] [phone]. Marcell Jaxon MCHC (RBC) [Mass/Vol] 33.6 g/dL Normal 29.9-35.2 [facility] Comment on above: Performed By: #### C BC ####[facility] [address] [place] [phone]. Ansilvio Coates MCV (RBC) [Entitic vol] 90.2 fL Normal 81.0-99.0 [facility] Comment on above: Performed By: #### C BC ####[facility] [address] [place], [place] [phone]. Marcell Coates MONO # 1.0 103/ul Critically high 0.3-0.[address] [facility] Comment on above: Performed By: #### C BC ####[facility] [address] [place], [place] [address]Dr. Marcell Coates Monocytes/100 WBC (Bld) 8.7 % Normal 1.7-12.0 [facility] Comment on above: Performed By: #### C BC ####[facility] [address] [place], [place] [address]Dr. Marcell Coates NEUT # 5.9 103/ul Normal 1.4-6.5 [facility] Comment on above: Performed By: #### C BC ####[facility] [address] [place], [place] [address]Dr. Marcell Coates Neutrophils/100 WBC (Bld) 51.5 % Normal 43.0-75.0 [facility] Comment on above: Performed By: #### C BC ####[facility] [address]xs[address] [place], [place] [address]Dr. Marcell Coates Platelet mean volume (Bld) [Entitic vol] 9.7 fL Normal 9.5-13.5 [facility] Comment on above: Performed By: #### C BC ####[facility] [address] [place], [place] [address]Dr. Marcell Coates PLT 326 103/ul Normal 150-450 [facility] Comment on above: Performed By: #### C BC ####[facility] [address] [place], [place] [address]Ys. Marcell Coates RBC 5.01 106/ul Normal 4.20-5.40 [facility] Comment on above: Performed By: #### C BC ####[facility] [address] [place], [place] [address]Gt. Marcell Coates WBC 11.4 103/ul Critically high 4.0-11.0 [facility] Comment on above: Performed By: #### C BC ####[facility] [address] [place], [place] [address]Po. [address] HEAD WO CONon 11-07-2021 [...] CELINE KO Date: 2021-11-06 23:14 Normal [facility] PROF 14(COMP METB)on 022 Albumin [Mass/Vol] 4.1 g/dL Normal 3.4-5.0 [facility] Comment on above: Performed By: #### C MP ####[facility] [address] [place], [place] [address]Xn. Marcell Coates Albumin/Globulin [Mass ratio] 1.1 {ratio} Normal [facility] Comment on above: Performed By: #### C MP ####[facility] [address] [place] [id number]. Marcell Coates ALP [Catalytic activity/Vol] 85 U/L Normal 46-[address] [facility] Comment on above: Performed By: #### C MP ####[facility] [address] [place] [id number]. Marcell Coates ALT [Catalytic activity/Vol] 21 U/L Normal 14-[address] [facility] Comment on above: Performed By: #### C MP ####[facility] [address] [place] [phone]. Marcell Coates Anion gap [Moles/Vol] 14.7 mmol/L Normal [facility] Comment on above: Performed By: #### C MP ####[facility] [address] [place] [address]Dr. Marcell Coates AST [Catalytic activity/Vol] 18 U/L Normal 15-[address] [facility] Comment on above: Performed By: #### C MP ####[facility] [address] [place] [address]Dr. Marcell Coates Bilirubin [Mass/Vol] 0.3 mg/dL Normal 0.2-1.[address] [facility] Comment on above: Performed By: #### C MP ####[facility] [address] [place] [phone]. Marcell Coates Calcium [Mass/Vol] 9.3 mg/dL Normal 8.5-10.1 [facility] Comment on above: Performed By: #### C MP ####[facility] [address] [place] [phone]. Marcell Coates Chloride [Moles/Vol] 101 mmol/L Normal 98-[address] [facility] Comment on above: Performed By: #### C MP ####[facility] [address] [place] [address]Dr. Marcell Coates CO2 [Moles/Vol] 22.6 mmol/L Normal 21.0-32.0 [facility] Comment on above: Performed By: #### C MP ####[facility] [address] [place] [phone]. Marcell Coates Creatinine [Mass/Vol] 1.25 mg/dL Critically high 0.55-1.[address] [facility] Comment on above: Performed By: #### C MP ####[facility] [address] [place], [place] [address]Ei. Marcell Coates EGFR-AF BRUNEIAN 55 mL/min/1.73m2 Critically low >=[address] [facility] Comment on above: Performed By: #### C MP ####[facility] [address] [place] [id number]. Marcell Coates EGFR-NON AF BRUNEIAN 46 mL/min/1.73m2 Critically low >=[address] [facility] Comment on above: Performed By: #### C MP ####[facility] [address] [place] [id number]. Marcell Coates Globulin (S) [Mass/Vol] 3.6 g/dL Normal [facility] Comment on above: Performed By: #### C MP ####[facility] [address] [place] [id number]. Marcell Coates Glucose [Mass/Vol] 107 mg/dL Critically high 74-106 T [facility] Comment on above: Performed By: #### C MP ####[facility] [address] [place] [id number]. Marcell Coates Potassium [Moles/Vol] 3.3 mmol/L Critically low 3.5-5.[address] [facility] Comment on above: Performed By: #### C MP ####[facility] [address] [place] [id number]. Marcell Coates Protein [Mass/Vol] 7.7 g/dL Normal 6.4-8.2 [facility] Comment on above: Performed By: #### C MP ####[facility] [address] [place] [id number]. Marcell Coates Sodium [Moles/Vol] 135 mmol/L Critically low 136-145 [facility] Comment on above: Performed By: #### C MP ####[facility] [address] [place], [place] [address]UqDr. Marcell Coates Urea nitrogen [Mass/Vol] 20.0 mg/dL Critically high 7.0-18.[address] [facility] Comment on above: Performed By: #### C MP ####[facility] [address] [place], [place] [address]Dr. Marcell Coates Urea nitrogen/Creatinine [Mass ratio] 16.0 mg/mg Normal [facility] Comment on above: Performed By: #### C MP ####[facility] [address] [place], [place] [address]QzDr. Marcell Coates CBC AUTO DIFFon 09-14-2021 BASO # 0.0 103/ul Normal 0.0-0.[address] [facility] Comment on above: Performed By: #### L LENO STERN, CMP #### [facility] [address] [place] [address] [address] Marcell Coates Basophils/100 WBC (Bld) 0.1 % Critically low 0.2-2.[address] [facility] Comment on above: Performed By: #### L LENO STERN, CMP #### [facility] [address] [place] [address] [address] Marcell Coates EO # 0.0 103/ul Normal 0.0-0.[address] [facility] Comment on above: Performed By: #### L LENO STERN, CMP #### [facility] [address] [place] [address] [address] Marcell Coates Eosinophils/100 WBC (Bld) 0.0 % Critically low 0.9-7.[address] [facility] Comment on above: Performed By: #### L LENO STERN, CMP #### [facility] [address] [address] [address] Marcell Coates Erythrocyte distribution width (RBC) [Ratio] 12.8 % Normal 11.0-15.[address] [facility] Comment on above: Performed By: #### L LENO STERN, CMP #### [facility] [address] [place] [address] [address] Marcell Coates Hematocrit (Bld) [Volume fraction] 40.8 % Normal 36.0-48.[address] [facility] Comment on above: Performed By: #### L LENO STERN, CMP #### [facility] [address] [place] [address] Dr. Marcell Coates Hemoglobin (Bld) [Mass/Vol] 13.2 g/dL Normal 12.0-16.[address] [facility] Comment on above: Performed By: #### L LENO STERN, CMP #### [facility] [address] [place] [address] Dr. Marcell Coates IG # 0.07 10e3/ul Critically high 0.00-0.03 [facility] Comment on above: Performed By: #### L LENO STERN, CMP #### [facility] [address] [place] [address] Dr. Marcell Coates IG % 0.6 % Critically high 0.0-0.[address] [facility] Comment on above: Performed By: #### L LENO STERN, CMP #### [facility] [address] [place] [address] Dr. Marcell Coates LYMPH # 1.6 103/ul Normal 1.2-3.[address] [facility] Comment on above: Performed By: #### L LENO STERN, CMP #### [facility] [address] [place] [address] Dr. Marcell Coates Lymphocytes/100 WBC (Bld) 14.3 % Critically low 20.5-60.[address] [facility] Comment on above: Performed By: #### L LENO STERN, CMP #### [facility] [address] [place] [address] Dr. Marcell Coates MANUAL DIFF REQ NO Normal [facility] Comment on above: Performed By: #### L LENO STERN, CMP #### [facility] [address] [place] [address] Dr. Marcell Coates MCH (RBC) [Entitic mass] 29.8 pg Normal 26.7-34.[address] [facility] Comment on above: Performed By: #### L LENO STERN, CMP #### [facility] [address] [place] [address] Dr. Marcell Coates MCHC (RBC) [Mass/Vol] 32.4 g/dL Normal 29.9-35.2 [facility] Comment on above: Performed By: #### L LENO STERN, CMP #### [facility] [address] [place] [address] Dr. Marcell Coates MCV (RBC) [Entitic vol] 92.1 fL Normal 81.0-99.0 [facility] Comment on above: Performed By: #### L LENO STERN, CMP #### [facility] [address] [place] [address] Dr. Marcell Coates MONO # 0.3 103/ul Normal 0.3-0.8 [facility] Comment on above: Performed By: #### L LENO STERN, CMP #### [facility] [address] [place] [address] Dr. Marcell Coates Monocytes/100 WBC (Bld) 2.4 % Normal 1.7-12.0 [facility] Comment on above: Performed By: #### L LENO STERN, CMP #### [facility] [address] [place] [address] Dr. Marcell Coates NEUT # 9.3 103/ul Critically high 1.4-6.[address] [facility] Comment on above: Performed By: #### L LENO STERN, CMP #### [facility] [address] [place] [address] Dr. Marcell Caotes Neutrophils/100 WBC (Bld) 82.6 % Critically high 43.0-75.0 [facility] Comment on above: Performed By: #### L LENO STERN, CMP #### [facility] [address] [place] [address] Dr. Marcell Coates Platelet mean volume (Bld) [Entitic vol] 9.8 fL Normal 9.5-13.5 [facility] Comment on above: Performed By: #### L LENO STERN, CMP #### [facility] [address] [place] [address] Dr. Marcell Coates PLT 292 103/ul Normal 150-450 [facility] Comment on above: Performed By: #### L LENO STERN, CMP #### [facility] [address] [place] [address] [address] Marcell Coates RBC 4.43 106/ul Normal 4.20-5.[address] [facility] Comment on above: Performed By: #### L LENO STERN, CMP #### [facility] [address] [place] [address] Dr. Marcell Coates WBC 11.3 103/ul Critically high 4.0-11.0 [facility] Comment on above: Performed By: #### L LENO STERN, CMP #### [facility] [address] [place] [address] Dr. Marcell Coates PROF CHEM 8 (BAS METB)on Anion gap [Moles/Vol] 13.8 mmol/L Normal [facility] Comment on above: Performed By: #### B MP #### [facility] [address] [place] [address] Dr. Marcell Coates Calcium [Mass/Vol] 8.9 mg/dL Normal 8.5-10.1 [facility] Comment on above: Performed By: #### B MP #### [facility] [address] [place] [address] Dr. Marcell Coates Chloride [Moles/Vol] 102 mmol/L Normal 98-[address] [facility] Comment on above: Performed By: #### B MP #### [facility] [address] [place] [address] Dr. Marcell Coates CO2 [Moles/Vol] 24.3 mmol/L Normal 21.0-32.0 [facility] Comment on above: Performed By: #### B MP #### [facility] [address] [place] [address] Dr. Marcell Coates Creatinine [Mass/Vol] 1.15 mg/dL Critically high 0.55-1.[address] [facility] Comment on above: Performed By: #### B MP #### [facility] [address] [place] [address] Dr. Marcell Coates EGFR-AF BRUNEIAN >60 Normal >=60 [facility] Comment on above: Performed By: #### B MP #### [facility] [address] [place] [address] [address] Marcell Coates EGFR-NON AF BRUNEIAN 50 mL/min/1.73m2 Critically low >=[address] [facility] Comment on above: Performed By: #### B MP #### [facility] [address] [place] [address] [address] Marcell Coates Glucose [Mass/Vol] 317 mg/dL Critically high 74-106 T [facility] Comment on above: Performed By: #### B MP #### [facility] [address] [place] [address] [address] Marcell Coates Potassium [Moles/Vol] 4.1 mmol/L Normal 3.5-5.[address] [facility] Comment on above: Performed By: #### B MP #### [facility] [address] [place] [address] [address] Marcell Coates Sodium [Moles/Vol] 136 mmol/L Normal 136-145 [facility] Comment on above: Performed By: #### B MP #### [facility] [address] [place] [address] [address] Marcell Coates Urea nitrogen [Mass/Vol] 25.0 mg/dL Critically high 7.0-18.[address] [facility] Comment on above: Performed By: #### B MP #### [facility] [address] [place] [address] [address] Marcell Coates Urea nitrogen/Creatinine [Mass ratio] 21.7 mg/mg Normal [facility] Comment on above: Performed By: #### B MP #### [facility] [address] [place] [address] [address] Marcell Coates CBC AUTO DIFFon 09-13-2021 BASO # 0.1 103/ul Normal 0.0-0.[address] [facility] Comment on above: Performed By: #### C BC ####[facility] [address] [place], [place] [address]SbDr. Marcell Coates Basophils/100 WBC (Bld) 0.8 % Normal 0.2-2.[address] [facility] Comment on above: Performed By: #### C BC ####[facility] [address] [place] [id number]. Marcell Coates EO # 0.4 103/ul Normal 0.0-0.7 [facility] Comment on above: Performed By: #### C BC ####[facility] [address] [place] [address]Dr. Marcell Coates Eosinophils/100 WBC (Bld) 4.1 % Normal 0.9-7.0 [facility] Comment on above: Performed By: #### C BC ####[facility] [address] [place], [place] [address]Dr. Marcell Coates Erythrocyte distribution width (RBC) [Ratio] 13.3 % Normal 11.0-15.[address] [facility] Comment on above: Performed By: #### C BC ####[facility] [address] [place], [place] [address]Dr. Marcell Coates Hematocrit (Bld) [Volume fraction] 41.5 % Normal 36.0-48.[address] [facility] Comment on above: Performed By: #### C BC ####[facility] [address] [place], [place] [address]Dr. Marcell Coates Hemoglobin (Bld) [Mass/Vol] 13.6 g/dL Normal 12.0-16.0 [facility] Comment on above: Performed By: #### C BC ####[facility] [address] [place], [place] [address]Dr. Marcell Coates IG # 0.02 10e3/ul Normal 0.00-0.03 [facility] Comment on above: Performed By: #### C BC ####[facility] [address] [place], [place] [address]Dr. Marcell Coates IG % 0.2 % Normal 0.0-0.5 [facility] Comment on above: Performed By: #### C BC ####[facility] [address] [place], [place] [address]Dr. Ansilvio Coates LYMPH # 3.9 103/ul Critically high 1.2-3.[address] [facility] Comment on above: Performed By: #### C BC ####[facility] [address] [place] [id number]. Marcell Coates Lymphocytes/100 WBC (Bld) 37.9 % Normal 20.5-60.[address] [facility] Comment on above: Performed By: #### C BC ####[facility] [address] [place] [id number]. Marcell Cotaes MANUAL DIFF REQ NO Normal [facility] Comment on above: Performed By: #### C BC ####[facility] [address] [place] [id number]. Marcell Coates MCH (RBC) [Entitic mass] 30.2 pg Normal 26.7-34.0 [facility] Comment on above: Performed By: #### C BC ####[facility] [address] [place] [address]Dr. Marcell Coates MCHC (RBC) [Mass/Vol] 32.8 g/dL Normal 29.9-35.2 [facility] Comment on above: Performed By: #### C BC ####[facility] [address] [place] [id number]. Marcell Coates MCV (RBC) [Entitic vol] 92.2 fL Normal 81.0-99.0 [facility] Comment on above: Performed By: #### C BC ####[facility] [address] [place] [address]Dr. Marcell Coates MONO # 0.8 103/ul Normal 0.3-0.8 [facility] Comment on above: Performed By: #### C BC ####[facility] [address] [place] [id number]. Marcell Coates Monocytes/100 WBC (Bld) 8.1 % Normal 1.7-12.0 [facility] Comment on above: Performed By: #### C BC ####[facility] [address] [place], [place] [id number]. Marcell Coates NEUT # 5.0 103/ul Normal 1.4-6.5 [facility] Comment on above: Performed By: #### C BC ####[facility] [address] [place], [place] [address]Nj. Marcell Coates Neutrophils/100 WBC (Bld) 48.9 % Normal 43.0-75.[address] [facility] Comment on above: Performed By: #### C BC ####[facility] [address] [place], [place] [address]Su. Marcell Coates Platelet mean volume (Bld) [Entitic vol] 9.5 fL Normal 9.5-13.[address] [facility] Comment on above: Performed By: #### C BC ####[facility] [address] [place], [place] [address]De. Marcell Jaxon PLT 288 103/ul Normal 150-450 [facility] Comment on above: Performed By: #### C BC ####[facility] [address] [place] [id number]. Marcell Coates RBC 4.50 106/ul Normal 4.20-5.40 [facility] Comment on above: Performed By: #### C BC ####[facility] [address] [place], [place] [address]Xq. Marcell Coates WBC 10.2 103/ul Normal 4.0-11.0 [facility] Comment on above: Performed By: #### C BC ####[facility] [address] [place] [id number]. Marcell Jaxon CRPon 09-13-2021 CRP 1.0 mg/dL Normal <=1.[address] [facility] Comment on above: Performed By: #### L LEENA, LENO, CMP #### [facility] [address] [place], [place] [address] Dr. Marcell Coates [facility]17 SARS-CoV-2 (COVID-19) RNA RUSSELL+probe Ql (Unsp spec) Not detected Normal NOT DETECTED [facility] Comment on above: Result Comment: When diagnostic [...] for this test is supported by the [place] of Health and Human Service's declaration that [...] By: #### L LENO STERN CMP #### [facility] [address] [place] [address] Dr. Marcell Coates GLYCOHEMOGLOBIN A1Con 2021 ADA RECOMMENDATION SEE BELOW Normal The [facility] Comment on above: Result Comment: ADA RECOMMENDED LIMIT 4.0 - 6.0 ADA THERAPEUTIC TARGET < 7.0 ACTION SUGGESTED > 7.0 Performed By: #### B MP #### [facility] [address] [place] [address] Dr. Marcell Coates Glucose [Mass/Vol] 128 mg/dL Normal The [facility] Comment on above: Performed By: #### B MP #### [facility] [address] [place] [address] Dr. Marcell Coates HbA1c (Bld) [Mass fraction] 6.1 % Normal 4.5-6.[address] [facility] Comment on above: Performed By: #### B MP #### [facility] [address] [place] [address] Dr. Marcell Coates PROF CHEM 8 (BAS METB)on Anion gap [Moles/Vol] 13.5 mmol/L Normal [facility] Comment on above: Performed By: #### L LENO STERN, CMP #### [facility] [address] [place] [address] Dr. Marcell Coates Calcium [Mass/Vol] 8.6 mg/dL Normal 8.5-10.1 [facility] Comment on above: Performed By: #### L LENO STERN, CMP #### [facility] [address] [place] [address] [address] Marcell Coates Chloride [Moles/Vol] 107 mmol/L Normal 98-[address] [facility] Comment on above: Performed By: #### L LENO STERN, CMP #### [facility] [address] [place] [address] Dr. Marcell Coates CO2 [Moles/Vol] 25.5 mmol/L Normal 21.0-32.0 [facility] Comment on above: Performed By: #### L LENO STERN, CMP #### [facility] [address] [place] [address] Dr. Marcell Coates Creatinine [Mass/Vol] 1.25 mg/dL Critically high 0.55-1.[address] [facility] Comment on above: Performed By: #### L LENO STERN, CMP #### [facility] [address] [place] [address] Dr. Marcell Coates EGFR-AF BRUNEIAN 58 mL/min/1.73m2 Critically low >=[address] [facility] Comment on above: Performed By: #### L LENO STERN, CMP #### [facility] [address] [place] [address] Dr. Marcell Coates EGFR-NON AF BRUNEIAN 47 mL/min/1.73m2 Critically low >=[address] [facility] Comment on above: Performed By: #### L LENO STERN, CMP #### [facility] [address] [place] [address] Dr. Marcell Coates Glucose [Mass/Vol] 154 mg/dL Critically high 74-106 [facility] Comment on above: Performed By: #### L LENO STERN, CMP #### [facility] [address] [place] [address] Dr. Marcell Coates Potassium [Moles/Vol] 4.0 mmol/L Normal 3.5-5.[address] [facility] Comment on above: Performed By: #### L LENO STERN, CMP #### [facility] [address] [place] [address] Dr. Marcell Coates Sodium [Moles/Vol] 142 mmol/L Normal 136-145 [facility] Comment on above: Performed By: #### L LENO STERN, CMP #### [facility] [address] [place] [address] [address] Marcell Coates Urea nitrogen [Mass/Vol] 18.0 mg/dL Normal 7.0-18.[address] [facility] Comment on above: Performed By: #### L LENO STERN, CMP #### [facility] [address] [place] [address] Dr. Marcell Coates Urea nitrogen/Creatinine [Mass ratio] 14.4 mg/mg Normal [facility] Comment on above: Performed By: #### L LENO STERN, CMP #### [facility] [address] [place] [address] Dr. Marcell Coates [facility] 16 mm/hr Normal <=[address] [facility] Comment on above: Performed By: #### L LNEO STERN, CMP #### [facility] [address] [place] [address] Dr. Marcell Coates XR HIP RT 2 [...] by: EDDY MELGOZA Date: 2021-09-13 05:[address] [facility] XR LSPINE 2_3 VIEWSon [...] LIZANDRO PENDLETON Date: 2021-09-13 07:37 Normal [facility] CBC W/DIFFon 08-09-2020 BASOPHILS ABS AUTO [facility] 0.1 x10E3/uL Normal 0.0-0.2 [facility] Comment on above: Performed By: #### L AB293, LAB17 #### [facility] 1 , BASOPHILS RELATIVE AUTO [facility] 1 % Normal Not Estab. [facility] Comment on above: Performed By: #### L AB293, LAB17 #### [facility] 1 , Eosinophils (Bld) [#/Vol] 0.2 10*3/uL Normal 0.0-0.4 [facility] Comment on above: Performed By: #### L AB293, LAB17 #### [facility] 1 , Eosinophils/100 WBC (Bld) 3 % Normal Not Estab. [facility] Comment on above: Performed By: #### L AB293, LAB17 #### [facility] 1 , Erythrocyte distribution width (RBC) [Ratio] 11.9 % Normal 11.7-15.4 [facility] Comment on above: Performed By: #### L AB293, LAB17 #### [facility] 1 , Hematocrit (Bld) [Volume fraction] 43.8 % Normal 34.0-46.6 [facility] Comment on above: Performed By: #### L AB293, LAB17 #### [facility] 1 , HEMOGLOBIN [facility] 14.9 g/dL Normal 11.1-15.9 [facility] Comment on above: Performed By: #### L AB293, LAB17 #### [facility] 1 , IMMATURE GRANS (ABS) 0.0 x10E3/uL Normal 0.0-0.1 [facility] Comment on above: Performed By: #### L AB293, LAB17 #### [facility] 1 , Immature granulocytes/100 WBC (Bld) 0 % Normal Not Estab. [facility] Comment on above: Performed By: #### L AB293, LAB17 #### [facility] 1 , Lymphocytes (Bld) [#/Vol] 2.4 10*3/uL Normal 0.7-3.1 [facility] Comment on above: Performed By: #### L AB293, LAB17 #### [facility] 1 , Lymphocytes/100 WBC (Bld) 26 % Normal Not Estab. [facility] Comment on above: Performed By: #### L AB293, LAB17 #### [facility] 1 , MCH (RBC) [Entitic mass] 31.2 pg Normal 26.6-33.0 [facility] Comment on above: Performed By: #### L AB293, LAB17 #### [facility] 1 , MCHC (RBC) [Mass/Vol] 34.0 g/dL Normal 31.5-35.7 [facility] Comment on above: Performed By: #### L AB293, LAB17 #### [facility] 1 , MCV [facility] 92 fL Normal 79-97 [facility] Comment on above: Performed By: #### L AB293, LAB17 #### [facility] 1 , Monocytes (Bld) [#/Vol] 0.5 10*3/uL Normal 0.1-0.9 [facility] Comment on above: Performed By: #### L AB293, LAB17 #### [facility] 1 , Monocytes/100 WBC (Bld) 6 % Normal Not Estab. [facility] Comment on above: Performed By: #### L AB293, LAB17 #### [facility] 1 , NEUTROPHIL ABS AUTO [facility] 6.1 x10E3/uL Normal 1.4-7.0 [facility] Comment on above: Performed By: #### L AB293, LAB17 #### [facility] 1 , NEUTROPHILS RELATIVE AUTO [facility] 64 % Normal Not Estab. [facility] Comment on above: Performed By: #### L AB293, LAB17 #### [facility] 1 , PLATELET COUNT [facility] 336 x10E3/uL Normal 150-450 [facility] Comment on above: Performed By: #### L AB293, LAB17 #### [facility] 1 , RED BLOOD CELL COUNT [facility] 4.77 x10E6/uL Normal 3.77-5.28 [facility] Comment on above: Performed By: #### L AB293, LAB17 #### [facility] 1 , WBC (Bld) [#/Vol] 9.4 10*3/uL Normal 3.4-10.8 [facility] Comment on above: Performed By: #### L AB293, LAB17 #### [facility] 1 , COMPREHENSIVE METABOLIC PANE Bulmaro 08-09-2020 Albumin [Mass/Vol] 4.8 g/dL Normal 3.8-4.8 [facility] Comment on above: Order Comment: Relea se to patient->Immediate Performed By: #### L AB293, LAB17 #### [facility] 1 , Albumin/Globulin [Mass ratio] 1.7 {ratio} Normal 1.2-2.2 [facility] Comment on above: Order Comment: Relea se to patient->Immediate Performed By: #### L AB293, LAB17 #### [facility] 1 , ALP [Catalytic activity/Vol] 74 U/L Normal 48-121 [facility] Comment on above: Order Comment: Relea se to patient->Immediate Result Comment: Pl ease note reference interval change Performed By: #### L AB293, LAB17 #### [facility] 1 , ALT [Catalytic activity/Vol] 13 U/L Normal 0-32 [facility] Comment on above: Order Comment: Relea se to patient->Immediate Result Comment: Perf ormed At: 01 [facility] [place] [address] [place], [place] [id number] Aletha Menendez PhD [id number] Performed By: #### L [id number], LAB17 #### [facility] 1 , AST [Catalytic activity/Vol] 17 U/L Normal 0-40 [facility] Comment on above: Order Comment: Relea se to patient->Immediate Performed By: #### L AB293, LAB17 #### [facility] 1 , Bilirubin [Mass/Vol] 0.2 mg/dL Normal 0.0-1.[address] [facility] Comment on above: Order Comment: Relea se to patient->Immediate Performed By: #### L AB293, LAB17 #### [facility] 1 , Calcium [Mass/Vol] 9.9 mg/dL Normal 8.7-10.2 [facility] Comment on above: Order Comment: Relea se to patient->Immediate Performed By: #### L AB293, LAB17 #### [facility] 1 , Chloride [Moles/Vol] 102 mmol/L Normal 96-[address] [facility] Comment on above: Order Comment: Relea se to patient->Immediate Performed By: #### L AB293, LAB17 #### [facility] 1 , CO2 [Moles/Vol] 22 mmol/L Normal 20-29 [facility] Comment on above: Order Comment: Relea se to patient->Immediate Performed By: #### L AB293, LAB17 #### [facility] 1 , Creatinine [Mass/Vol] 0.85 mg/dL Normal 0.57-1.00 [facility] Comment on above: Order Comment: Relea se to patient->Immediate Performed By: #### L AB293, LAB17 #### [facility] 1 , EGFR IF NONAFRICN AM 82 mL/min/1.73 Normal >59 [facility] Comment on above: Order Comment: Relea se to patient->Immediate Performed By: #### L AB293, LAB17 #### [facility] 1 , GFR/1.73 sq M.predicted among blacks MDRD (S/P/Bld) [Vol rate/Area] 94 mL/min/{1.73_m2} Normal >59 [facility] Comment on above: Order Comment: Relea se to patient->Immediate Result Comment: [facility] currently reports eGFR in compliance with the current recommendations of the [employer] Kid[employer]. [facility] will update reporting as new guidelines are published from the NKF-ASN Task force. Performed By: #### L AB293, LAB17 #### [facility] 1 , Globulin (S) [Mass/Vol] 2.9 g/dL Normal 1.5-4.5 [facility] Comment on above: Order Comment: Relea se to patient->Immediate Performed By: #### L AB293, LAB17 #### [facility] 1 , Glucose [Mass/Vol] 91 mg/dL Normal 65-99 [facility] Comment on above: Order Comment: Relea se to patient->Immediate Performed By: #### L AB293, LAB17 #### [facility] 1 , Potassium [Moles/Vol] 4.2 mmol/L Normal 3.5-5.2 [facility] Comment on above: Order Comment: Relea se to patient->Immediate Performed By: #### L AB293, LAB17 #### [facility] 1 , Protein [Mass/Vol] 7.7 g/dL Normal 6.0-8.5 [facility] Comment on above: Order Comment: Relea se to patient->Immediate Performed By: #### L AB293, LAB17 #### [facility] 1 , Sodium [Moles/Vol] 139 mmol/L Normal 134-144 [facility] Comment on above: Order Comment: Relea se to patient->Immediate Performed By: #### L AB293, LAB17 #### [facility] 1 , Urea nitrogen [Mass/Vol] 14 mg/dL Normal 6-24 [facility] Comment on above: Order Comment: Relea se to patient->Immediate Performed By: #### L AB293, LAB17 #### [facility] 1 , Urea nitrogen/Creatinine [Mass ratio] 16 mg/mg Normal 9-23 [facility] Comment on above: Order Comment: Relea se to patient->Immediate Performed By: #### L AB293, LAB17 #### [facility] 1 , Vital Signs Date Time Vital Sign Value Performing Clinician Rip siu 01-06-2024 11:03-0400 Body height 157.5 cm Travis Bowser MD Work Phone: [facility] 01-06-2024 11:03-0400 Body mass index (BMI) [Ratio] 38.59 kg/m2 Travis Bowser MD Work Phone: [facility] 01-06-2024 11:03-0400 Body weight 95.71 kg Travis Bowser MD Work Phone: [facility] 01-06-2024 11:03-0400 Diastolic blood pressure 79 mm[Hg] Travis Bowser MD Work Phone: [facility] 01-06-2024 11:03-0400 Heart rate 70 /min Travis Bowser MD Work Phone: [facility] 01-06-2024 11:03-0400 SaO2% (BldA) [Mass fraction] 93 % Travis Bowser MD Work Phone: [facility] 01-06-2024 11:03-0400 Systolic blood pressure 127 mm[Hg] Travis Bowser MD Work Phone: [facility] 12-09-2023 13:25-0400 Diastolic blood pressure 68 mm[Hg] HEEL EMERY BUFFER-C Claudine Kastor Work Phone: [facility] 12-09-2023 13:25-0400 Heart rate 66 /min HEEL EMERY BUFFER-C Claudine Kastor Work Phone: [facility] 12-09-2023 13:25-0400 Respiratory rate 18 /min HEEL EMERY BUFFER-C Claudine Kastor Work Phone: [facility] 12-09-2023 13:25-0400 SaO2% (BldA) [Mass fraction] 100 % HEEL EMERY BUFFER-C Claudine Kastor Work Phone: [facility] 12-09-2023 13:25-0400 Systolic blood pressure 128 mm[Hg] HEEL EMERY BUFFER-C Claudine Kastor Work Phone: [facility] 12-09-2023 10:51-0400 Body height 157.48 cm HEEL EMERY BUFFER-C Claudine Kastor Work Phone: [facility] 12-09-2023 10:51-0400 Body weight 97.52 kg HEEL EMERY BUFFER-C Claudine Kastor Work Phone: [facility] 11-06-2023 08:51-0400 Body height 157.48 cm HEEL EMERY BUFFER-C Claudine Hernadez Work Phone: [facility] 11-06-2023 08:51-0400 Body weight 97.06 kg HEEL EMERY BUFFER-C Claudine Hernadez Work Phone: [facility] Encounters Encounter Date Encounter Type Care Provider Facility Start: 08-30-2024 End: 08-31-2024 Refill Romeo Colon DAY LIGHT RELIEF OPERATOR-SOUND TRUCK OPERATOR Work Phone: [facility] Comment on above: Med Refill Start: 07-14-2024 ambulatory JESSE BECKMAN [facility] Start: 06-30-2024 End: 07-01-2024 Refill Shaniqua Joshua DAY LIGHT RELIEF OPERATOR-SOUND TRUCK OPERATOR Work Phone: [facility] Comment on above: Med Refill Start: 06-10-2024 End: 06-10-[address] [facility] Work Phone: Start: 06-10-2024 End: 06-10-2024 Departed Referred Khushbu Hernandez DO Work Phone: 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 Work Phone: Start: 03-15-2024 End: 03-15-2024 Departed Referred Khushbu Marker DO Work Phone: 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 Facility:[facility] Start: 01-30-2024 End: 02-03-2024 Refill Rmoeo Colon DAY LIGHT RELIEF OPERATOR-SOUND TRUCK OPERATOR Work Phone: [facility] Comment on above: Med Refill Start: 01-30-2024 End: 01-30-2024 ambulatory None Provider Facility:[facility] Start: 01-29-2024 End: 01-29-2024 ambulatory Murali Waterman MD Facility:[facility] Start: 01-06-2024 End: 01-06-2024 ambulatory TRAVIS BOWSER [facility] Start: 01-06-2024 End: 01-06-2024 Office outpatient visit 25 minutes Travis Bowser MD Work Phone: [facility] Comment on above: Primary hypertension (Primary Dx); Left ventricular failure (CMS-HCC); 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); Shortness of breath; Acute systolic congestive heart failure (CMS-HCC); Acute on chronic HFrEF (heart failure with reduced ejection fraction) ([facility]-HCC) Start: 01-05-2024 End: 01-09-2024 ambulatory None Provider Facility:[facility] Start: 01-02-2024 End: 01-02-2024 Telephone encounter Michelle Goodwin MA [facility] Start: 01-01-2024 End: 01-07-2024 Refill Josi Ba MD Work Phone: [facility] Comment on above: Med Refill Start: 12-26-2023 End: 12-26-2023 Telephone encounter Mary Vance CMA [facility] Start: 12-22-2023 Registered Recurring HEEL EMERY BUFFER-C Claudinerod Godfreyjose Work Phone: [facility] Start: 12-22-2023 ambulatory Fletcher Rhodes acility:[facility] Start: 12-17-2023 Non-patient / Non-visit HEEL EMERY BUFFER-C Claudine Hernadez Work Phone: [facility] Work Phone: Start: 12-12-2023 End: 12-12-2023 ambulatory None Provider Facility:[facility] Start: 12-12-2023 End: 12-12-2023 ambulatory Murali Waterman MD Facility:[facility] Start: 12-09-2023 Non-patient / Non-visit HEEL EMERY BUFFER-C Claudinerod Godfreyjose Work Phone: [facility] Work Phone: Start: 12-09-2023 End: 12-09-2023 Admission to same day surgery center HEEL EMERY BUFFER-C Claudine Godfreyjose Work Phone: [facility] Work Phone: Start: 12-09-2023 End: 12-09-2023 ambulatory HEEL EMERY BUFFER-C Claudine Isabell Epifaniojose Work Phone: [facility] Work Phone: Start: 12-04-2023 End: 12-05-2023 Refill Zara Bazan APRN-SOUND TRUCK OPERATOR Work Phone: [facility] Start: 11-27-2023 End: 11-27-2023 ambulatory None Provider Facility:[facility] Start: 11-27-2023 End: 11-27-2023 ambulatory Lesley Yulikrissy Lanza DAY LIGHT RELIEF OPERATOR-SOUND TRUCK OPERATOR Facility:[facility] Start: 11-06-2023 End: 11-06-2023 ambulatory HEEL EMERY BUFFER-C Claudine Hernadez Work Phone: [facility] Work Phone: Start: 11-06-2023 End: 11-06-2023 Departed Referred HEEL EMERY BUFFER-C Claudine Hernadez Work Phone: [facility] Work Phone: Start: 11-03-2023 End: 11-05-2023 Refill Aubrey Sanchez DAY LIGHT RELIEF OPERATOR-SOUND TRUCK OPERATOR Work Phone: [facility] Comment on above: Med Refill Start: 10-09-2023 End: 10-10-2023 Refill Germania Hameed RN [facility] Comment on above: Med Refill Start: 09-29-2023 Non-patient / Non-visit HEEL EMERY BUFFER-Coleen Hernadez Work Phone: [facility] Work Phone: Start: 09-01-2023 End: 09-01-2023 ambulatory None Provider Facility:[facility] Start: 08-15-2023 End: 08-18-2023 Refill Janell Rivera DAY LIGHT RELIEF OPERATOR-SOUND TRUCK OPERATOR Work Phone: [facility] Comment on above: Med Refill Start: 07-24-2023 End: 07-25-2023 Emergency department patient visit None Provider Facility:[facility] Start: 07-21-2023 End: 07-21-2023 Emergency department patient visit None Provider Facility:[facility] Start: 07-07-2023 End: 07-07-2023 ambulatory [facility] Start: 06-16-2023 End: 06-16-2023 ambulatory Kendrick Aguilar MD Facility: [facility] Start: 05-26-2023 End: 05-27-2023 ambulatory JAMAR CARUSO [facility] Start: 05-16-2023 End: 06-16-2023 ambulatory JAMAR CARUSO [facility] Start: 05-14-2023 End: 05-15-2023 ambulatory JOSI BA [facility] Start: 05-08-2023 End: 05-09-2023 ambulatory TYRON WAGNER [facility] Start: 05-07-2023 Refill Josi Ba MD Work Phone: [facility] Start: 05-01-2023 End: 05-16-2023 ambulatory JAMAR CARUSO [facility] Comment on above: Encounter for screen ing mammogram for malignant neoplasm of breast (Primary Dx) Start: 04-03-2023 Refill Hiro Kaba RN [facility] Start: 03-07-2023 Refill Aubrey Velazquez sser DAY LIGHT RELIEF OPERATOR-SOUND TRUCK OPERATOR Work Phone: [facility] Comment on above: Med Refill Start: 03-06-2023 Refill Josi Ba MD Work Phone: [facility] Comment on above: Primary hypertension ; Combined systolic and diastolic congestive heart failure, unspecified HF chronicity (CMS-HCC); Acute combined systolic and diastolic congestive heart failure (CMS-HCC); Cardiomegaly Start: 07-29-2022 End: 07-29-[address] KHUSHBU HERNANDEZ . Facility:[facility] Start: 07-15-2022 End: 07-15-2022 ambulatory ROBERT DIAS Facility:[facility] Start: 07-10-2022 ambulatory EDILSON~[id number] [facility]ERSON [facility] Start: 06-18-2022 End: 06-19-[address] KHUSHBU HERNANDEZ . Facility:[facility] Start: 06-14-2022 ambulatory EDILSON~[id number] PIERSON PIERSON [facility] Start: 06-14-2022 End: 06-14-[address] KHUSHBU HERNANDEZ . Facility:[facility] Start: 06-09-2022 End: 06-09-2022 ambulatory PENNY MASON . Facility:[facility] Start: 05-14-2022 ambulatory EDILSON~[id number] KENNA WAGGONER [facility] Start: 05-11-2022 End: 05-11-[address] [...] Performing Clinician Start: 06-10-2024 URINE CULTURE - [facility] Ge neric External Data Provider Start: 03-15-2024 Streptococcus pyogen es culture Khushbu Marker DO Work Phone: Start: 01-06-2024 Follow-up visit Follow-up BOLIVAR BOWSER Start: 12-09-2023 Screening colonoscopy N P-C Claudine Hernadez Work Phone: Start: 05-14-2023 Mammography Janell Rivera DAY LIGHT RELIEF OPERATOR-SOUND TRUCK OPERATOR Work Phone: Start: 09-14-2022 Adult depression scr eening assessment Aubrey Sanchez DAY LIGHT RELIEF OPERATOR-SOUND TRUCK OPERATOR Work Phone: Start: 05-09-2022 Mammography Aubrey byers DAY LIGHT RELIEF OPERATOR-SOUND TRUCK OPERATOR Work Phone: Plan of Treatment Date Care Activity Detail Author Start: 05-14-2025 Screening for malign ant neoplasm of breast Mammogram [facility] Start: 01-05-2025 Adult BMI Screening Adult BMI Screen ing [facility] Start: 11-15-2024 Influenza vaccination Influenza Vacc ine [facility] Start: 06-10-2024 Urine culture [facility] Start: 03-27-2025 Bacteria identified in Urine by Culture Urine Culture [facility] Start: 05-14-2024 Adult BMI Screening Adult BMI Screen ing [facility] Start: 05-09-2024 Screening for malign ant neoplasm of breast Mammogram [facility] Start: 03-15-2024 Group A Streptococcu s Culture Group A Streptococcus Culture [facility] Start: 02-02-2024 Tobacco Counseling Tobacco Counselin g [facility] Start: 01-06-2024 End: 01-05-2025 Echo complete W/O contrast Echo complete W/O contrast Echocardiography Routine Primary hypertension Left ventricular failure (CMS-HCC) 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) Shortness of breath Expected: 01/06/2024, Expires: 01/05/2025 [facility] Work Phone: Comment on above: Expected: 01/06/2024 , Expires: 01/05/2025 Start: 01-06-2024 End: 01-05-2025 NM Heart Perfusion W stress and W radionuclide IV Nuc stress [facility] Routine Primary hypertension Left ventricular failure (CMS-HCC) 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) Shortness of breath Expected: 01/06/2024, Expires: 01/05/2025 [facility] Comment on above: Expected: 01/06/2024 , Expires: 01/05/2025 Start: 01-06-2024 End: 01-06-2024 Patient encounter procedure 01/06/2024 11:00 AM EDT Office Visit [facility] [address] [place] [phone] Travis Bowser MD [address] [place] [address] [facility] Start: 12-09-2023 [facility] Start: 11-29-2023 Adult BMI Screening Adult BMI Screen ing [facility] Start: 11-29-2023 Tobacco Screening Tobacco Screening [facility] Start: 11-16-2023 COVID-19 Vaccine ( season) COVID-19 Vaccine () [facility] Start: 11-16-2023 COVID-19 Vaccine ( season) COVID-19 Vaccine ( season) [facility] Start: 11-16-2023 Influenza vaccination Influenza Vacc ine [facility] Start: 09-15-2023 Depression Screening Depression Scre ening [facility] Start: 06-16-2023 End: 06-16-2023 Patient encounter procedure 06/16/2023 3:00 PM EDT Office Visit [facility] [address] [place] [address] [place] [phone] Anusha Roberto MD [address] [facility] [address] [place] [address] [facility] Start: 05-26-2023 Administration of varicella zoster vaccine Zoster (Shingles) Vaccine (1 of 2) [facility] Start: 05-14-2023 End: 05-14-2023 Patient encounter procedure 05/14/2023 3:15 PM EST Appointment [facility] [address] [place] [phone] [facility] Start: 05-12-2023 End: 05-12-2023 Patient encounter procedure 05/12/2023 2:45 PM EST Appointment [facility] [address] [place] [phone] Arrived [facility] Comment on above: Arrived Start: 05-08-2023 Subsequent hospital visit by physician [facility] Start: 05-01-2023 End: 05-01-2024 DBT Breast - bilateral screening Mammography screening bilateral with CAD Imaging Routine Encounter for screening mammogram for malignant neoplasm of breast Expected: 05/01/2023, Expires: 05/01/2024 [facility] Work Phone: Comment on above: Expected: 05/01/2023 , Expires: 05/01/2024 Start: 03-31-2023 End: 03-31-2023 Patient encounter procedure 03/31/2023 11:00 AM EST [facility] [address] [place] [address] [place] [phone] [place]ron [place], [place] [address] [place] [address] [facility] Start: 03-24-2023 End: 03-24-2023 Patient encounter procedure [facility] Start: 11-15-2022 COVID-19 Vaccine ( season) COVID-19 Vaccine ( season) [facility] Start: 11-15-2022 Influenza vaccination Influenza Vacc ine [facility] Start: 05-26-1991 Adult BMI Follow Up Plan Adult BMI F ollow Up Plan [facility] Start: 1984 DTaP,Tdap and Td Vaccines (5 - Tdap) DTaP,Tdap and Td Vaccines (5 - Tdap) [facility] End: 10-08-2024 CBC panel - Blood by Automated count CBC Lab Routine 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 Occurrences starting 10/10/2023 until 10/08/2024 [email or web address] Work Phone: Comment on above: 1 Occurrences starti ng 10/10/2023 until 10/08/2024 End: 10-08-2024 Comprehensive metabolic 2000 panel - Serum or Plasma Comprehensive metabolic panel Lab Routine 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 Occurrences starting 10/10/2023 until 10/08/2024 [facility] Comment on above: 1 Occurrences starti ng 10/10/2023 until 10/08/2024 End: 10-08-2024 Lipid panel Lipid panel Lab Routine 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 Occurrences starting 10/10/2023 until 10/08/2024 [facility] Comment on above: 1 Occurrences starti ng 10/10/2023 until 10/08/2024 End: 10-08-2024 Magnesium [Mass/volume] in Serum or Plasma Magnesium Lab Routine 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 Occurrences starting 10/10/2023 until 10/08/2024 [facility] Comment on above: 1 Occurrences starti ng 10/10/2023 until 10/08/2024 Patient Education Colon Polypect eduardo (DC) Know your Meds [facility] Work Phone: URINE CULTURE - [facility] URINE CULTU RE - [facility] Lab Routine 06/10/2024 3:22 PM EDT [facility] Immunizations Immunization Date Immunization Notes Care Provider Sabrina richey 05-15-2021 influenza, seasonal, injectable Mischell Laura DAY LIGHT RELIEF OPERATOR-SOUND TRUCK OPERATOR Work Phone: [facility] 05-15-2021 influenza virus vaccine, unspecified formulation Mischell Laura DAY LIGHT RELIEF OPERATOR-SOUND TRUCK OPERATOR Work Phone: [facility] 01-02-2021 Influenza, injectabl e, Madin Brockwell Canine Kidney, quadrivalent with preservative Mischell Laura DAY LIGHT RELIEF OPERATOR-SOUND TRUCK OPERATOR Work Phone: [facility] 11-14-2020 COVID-19, mRNA, LNP- S, PF, 30mcg/0.3mL Dose Mischell Laura DAY LIGHT RELIEF OPERATOR-SOUND TRUCK OPERATOR Work Phone: [facility] 11-26-2018 influenza, injectabl e, quadrivalent, preservative free Mischell Laura DAY LIGHT RELIEF OPERATOR-SOUND TRUCK OPERATOR Work Phone: [facility] 12-03-2007 hepatitis B vaccine, adult dosage Mischell Laura DAY LIGHT RELIEF OPERATOR-SOUND TRUCK OPERATOR Work Phone: [facility] 08-27-2007 hepatitis B vaccine, adult dosage Mischell Laura DAY LIGHT RELIEF OPERATOR-SOUND TRUCK OPERATOR Work Phone: [facility] 07-27-2007 hepatitis B vaccine, adult dosage Mischell Laura DAY LIGHT RELIEF OPERATOR-SOUND TRUCK OPERATOR Work Phone: [facility] 04-16-1982 measles, mumps and rubella virus vaccine Mischell Laura DAY LIGHT RELIEF OPERATOR-SOUND TRUCK OPERATOR Work Phone: [facility] 10-31-1978 diphtheria, tetanus toxoids and pertussis vaccine Mischell Laura DAY LIGHT RELIEF OPERATOR-SOUND TRUCK OPERATOR Work Phone: [facility] 10-31-1978 poliovirus vaccine, unspecified formulation Mischell Laura DAY LIGHT RELIEF OPERATOR-SOUND TRUCK OPERATOR Work Phone: [facility] 12-01-1976 poliovirus vaccine, unspecified formulation Mischell Laura DAY LIGHT RELIEF OPERATOR-SOUND TRUCK OPERATOR Work Phone: [facility] 07-05-1975 diphtheria, tetanus toxoids and pertussis vaccine Mischell Laura DAY LIGHT RELIEF OPERATOR-SOUND TRUCK OPERATOR Work Phone: [facility] 07-05-1975 poliovirus vaccine, unspecified formulation Mischell Laura DAY LIGHT RELIEF OPERATOR-SOUND TRUCK OPERATOR Work Phone: [facility] 09-29-1974 diphtheria, tetanus toxoids and pertussis vaccine Mischell Laura DAY LIGHT RELIEF OPERATOR-SOUND TRUCK OPERATOR Work Phone: [facility] 09-29-1974 measles, mumps and rubella virus vaccine Mischell Laura DAY LIGHT RELIEF OPERATOR-SOUND TRUCK OPERATOR Work Phone: [facility] 09-29-1974 poliovirus vaccine, unspecified formulation Mischell Laura DAY LIGHT RELIEF OPERATOR-SOUND TRUCK OPERATOR Work Phone: [facility] 08-03-1974 diphtheria, tetanus toxoids and pertussis vaccine Mischell Laura DAY LIGHT RELIEF OPERATOR-SOUND TRUCK OPERATOR Work Phone: [facility] 08-[birth year]-1974 poliovirus vaccine, unspecified formulation Mischell Laura DAY LIGHT RELIEF OPERATOR-SOUND TRUCK OPERATOR Work Phone: [facility] Payers Date Payer Category Payer Self-pay 2023 Unknown 2022 Medicaid [id number] 2022 Medicaid [id number] 1975 Unknown [id number] 2.16.84 0.1.949812.3.579.2.593 1973 Unknown [id number] 2.16.84 0.1.252519.3.579.2.593 1973 Unknown [id number] 2.16.84 0.1.909910.3.579.2.593 1973 Unknown [id number] 2.16.84 0.1.466850.3.579.2.593 1973 Unknown [id number] 2.16.84 0.1.261933.3.579.2.593 1973 Unknown [id number] 2.16.84 0.1.153571.3.579.2.593 1973 Unknown [id number] 2.16.84 0.1.703982.3.579.2.593 1973 Unknown [id number] 2.16.84 0.1.383047.3.579.2.593 1973 Unknown [id number] 2.16.84 0.1.523101.3.579.2.593 1973 Unknown [id number] 2.16.84 0.1.473345.3.579.2.593 1973 Unknown [id number] 2.16.84 0.1.343161.3.579.2.593 1973 Unknown [id number] 2.16.84 0.1.645125.3.579.2.593 1973 Unknown [id number] 2.16.8 40.1.319290.3.579.2.1286 1973 Unknown [id number] 2.16.8 40.1.666954.3.579.2.1286 1973 Unknown [id number] 2.16.8 40.1.916532.3.579.2.1286 1973 Unknown [id number] 2.16.8 40.1.682591.3.579.2.6 1973 Unknown [id number] 2.16.8 40.1.220529.3.579.2.6 1973 Unknown [id number] 2.16.8 40.1.264870.3.579.2.1286 1973 Unknown [id number] 2.16.8 40.1.535805.3.579.2.6 1973 Unknown [id number] 2.16. 840.1.869833.3.579.2. 1973 Unknown [id number] 2.16. 840.1.053065.3.579.2. 1973 Unknown [id number] 2.16. 840.1.021458.3.579.2.196 1973 Unknown [id number] 2.16. 840.1.247639.3.579.2.196 1973 Unknown [id number] 2.16. 840.1.084765.3.579.2.196 1973 Unknown [id number] 2.16. 840.1.962306.3.579.2.196 1973 Unknown [id number] 2.16. 840.1.863848.3.579.2.196 1973 Unknown [id number] 2.16. 840.1.097791.3.579.2.196 1973 Unknown [id number] 2.16.8 40.1.128762.3.579.2.8 1973 Unknown [id number] 2.16.8 40.1.531400.3.579.2.718 1973 Unknown [id number] 2.16.8 40.1.293989.3.579.2.8 1973 Unknown [id number] 2.16.8 40.1.601508.3.579.2.8 1973 Unknown [id number] 2.16.8 40.1.478067.3.579.2. 1973 Unknown [id number] 2.16.8 40.1.786629.3.579.2. 1973 Unknown [id number] 2.16.8 40.1.363182.3.579.2. 1973 Unknown [id number] 2.16.8 40.1.606754.3.579.2. 1973 Unknown [id number] 2.16.8 40.1.822674.3.579.2. 1973 Unknown [id number] 2.16.8 40.1.893161.3.579.2. 1973 Unknown [id number] 2.16.8 40.1.146077.3.579.2. 1973 Unknown [id number] 2.16.8 40.1.911663.3.579.2.718 1959 Unknown [id number] Private Health Insurance [id number] Unknown [id number] 2.16.8 40.1.605370.3.579.2.531 Unknown [id number] 2.16.8 40.1.931969.3.579.2.531 Unknown [id number] 2.16.8 40.1.400052.3.579.2.531 Unknown [id number] 2.16.8 40.1.395411.3.579.2.531 Unknown [id number] 2.16.8 40.1.213126.3.579.2.531 Social History Date Type Detail Facility Start: 12-09-2023 End: 12-09-2023 Tobacco smoking status ALIS Smoker (finding) [facility] Start: 1975 Sex Assigned At Female [facility] Start: 03-17-2024 Sex Patient sex unknown (finding) [facility] Start: 08-22-2022 Tobacco smoking status NHIS Smokes tobacco daily [facility] History of tobacco use Cigarette Smoker P [facility] Start: 08-22-2022 End: 01-06-2024 Cigarettes smoked current (pack per day) - Reported 0.5 [facility] Start: 08-22-2022 Tobacco use and exposure Smokeless tobacco non-user [facility] Start: 11-28-2022 End: 05-14-2023 Alcohol intake Lifetime non-drinker (finding) [facility] Start: 09-14-2022 End: 01-06-2024 Alcohol Use Disorder Identification Test - Consumption [AUDIT-C] [facility] How often to you hav e a drink containing alcohol? Never [facility] How many standard dr inks containing alcohol do you have on a typical day? Patient does not drink [facility] Start: 1975 Sex Assigned At Not on file [facility] Start: 10-20-2014 End: 06-12-2024 Sex Female (finding) [facility] Tobacco smoking stat us NHIS Tobacco [...] In person visit Chief complaint: back pain EYAK: 49 y/o woman - here with her She is here today with Lizandro Peoples - he is to this lady now He says that his prior left him int correction to She says that her back is [...] an ablation on her back - at [facility] She thinks that was back around March or so (she maybe went home around Nunda) - so maybe Jan or Feb Her says that when they did it that it didn't seem to help her - it seemed to make things worse Aroudn the same time they took her off lyrica Then she started seeing a new HEEL EMERY BUFFER for her primary care She says that [...] by mouth once daily for [address]-vh-azji-FA-Ca carb-vit K (Women's Multivitamin) 18 mg-400 mcg- [...] grossly within norm (more content not included)... [facility] 06-30-2024 Miscellaneous Notes Ov-01/06/24 Lipid-09/24/23 documented in this encounter [facility] 06-30-2024 Telephone encounter Note Ov-01/06/24 Lipid-09/24/23 [facility] 03-01-2024 Note [id number] [facility] 02-27-2024 Note [facility] SURGERY Clinical Discharge Summary PERSON INFORMATION Name CHINMAY KNIGHT Age 48 Years 1975 Sex FEMALE Language Ukrainian PCP Provider, None Marital Status Other Med Service Pain Management Surgery Acct# Arrival 02/27/2024 06:37:50 Visit Reason LUMBAR PAIN Acuity LOS 007 17:50 Address: [address] [facility] [address] Comment: PROVIDER INFORMATION VITALS INFORMATION Vital Sign [...] every day. pregabalin (more content not included)... [facility] 02-26-2024 Note [id number] The patient?s history of present illness, physical findings and plan of care have been reviewed. There are no changes. [Electronically Signed on: 02/27/2024 07:33 EST] MURALI WATERMAN MD [Electronically Signed on: 02/27/2024 07:26 EST] Renee Dean MA [Verified on: 02/27/2024 07:33 EST] MURALI WATERMAN MD [Transcribed on: 02/26/2024 12:31 EST] [facility] 02-02-2024 Note [id number] [facility] 01-30-2024 Note [facility] SURGERY Clinical Discharge Summary PERSON INFORMATION Name CHINMAY KNIGHT Age 48 Years 1975 Sex FEMALE Language Ukrainian PCP Provider, None Marital Status Other Med Service Pain Management Surgery Acct# Arrival 01/30/2024 09:04:47 Visit Reason LUMBAR PAIN Acuity LOS 003 19:01 Address: [address] [facility] [address] Comment: PROVIDER INFORMATION VITALS INFORMATION Vital Sign [...] tablet) 1 tab( (more content not included)... [facility] 01-06-2024 History of Present illness Narrative Chinmay Barrientos Eugene Date of visit: 01/06/2024 Date of : 1975 Age: 48 y.o. Patient Active Problem List Diagnosis Knee pain, chronic Degenerative arthritis of left knee Hypertension Morbid obesity ([facility]) Osteoarthritis Depression GERD (gastroesophageal reflux disease) ABBEY (obstructive sleep apnea) Respiratory failure with hypercapnia ([facility]) Combined systolic and diastolic congestive heart failure ([facility]) Left ventricular failure ([facility]) Right arm pain ASCVD (arteriosclerotic cardiovascular disease) Dyslipidemia Acute on chronic HFrEF (heart failure with reduced ejection fraction) (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) Elevated serum creatinine Hypokalemia CHF (congestive heart failure) ([facility]) Occlusion of right radial artery ([facility]) Shortness of breath Allergies Allergen Reactions Codeine [...] Knight was seen in follow-up in the [facility] office. Records are reviewed. She is a 48-year-old obese woman with diabetes, modest essential hypertension, nonischemic cardiomyopathy, small-vessel obstructive coronary artery disease. She initially presented in August of 2022 with worsening breathlessness pedal edema and chest pain. Echocardiogram revealed ejection fraction on the order of 25-30% with tjwe-zf-bepxntzv tricuspid regurgitation and estimates of elevation right-sided pressures. She was transferred to [facility] underwent cardiac catheterization ultimately through a right [...] Diagnosis Date Arthritis CHF (congestive heart failure) ([facility]) Diabetes mellitus type 2, controlled ([facility]) GERD (gastroesophageal reflux disease) Hypertension Obesity Shortness of breath No data recorded No data recorded No data recorded Past Surgical History: Procedure Laterality Date Coronary angiogram and right heart and left ventricular gram/pressure N/A 09/03/2022 Performed by Victor Hugo Jiménez MD at [facility] CARDIAC CATH LABS HYSTERECTOMY OOPHORECTOMY REPLACEMENT TOTAL [...] Physician: Josi Ba MD [address] [place] [address] documented in this encounter [facility] 01-02-2024 Miscellaneous Notes Called patient to remind them to bring their most current copy of their medication list with them to their appt. Patient verbalizes understanding. documented in this encounter [facility] 01-02-2024 Telephone encounter Note Called patient to remind them to bring their most current copy of their medication list with them to their appt. Patient verbalizes understanding. [facility] 01-01-2024 Miscellaneous Notes Discontinued at visit with FRS on 01/05 documented in this encounter [facility] 01-01-2024 Telephone encounter Note Discontinued at visit with FRS on 01/05 [facility] 12-26-2023 Miscellaneous Notes PHONED PT TO SCHEDULE APPT PER [facility], MISAEL ON VM TO CALL OFFICE TO SCHEDULE APPT. documented in this encounter [facility] 12-26-2023 Telephone encounter Note PHONED PT TO SCHEDULE APPT PER [facility], MISAEL ON VM TO CALL OFFICE TO SCHEDULE APPT. [facility] 12-22-2023 Note Patient called roosevelt langstong her relief obtained after the procedure performed on 12/12/2023. Patient states she felt greater than 80% relief for two hours after the procedure. [Electronically Signed on: 12/22/2023 15:12 EDT] SolorzanoAgatha conti [Verified on: 12/22/2023 15:12 EDT] Agatha Solorzano [facility] 12-15-2023 Note [id number] [facility] 12-12-2023 Note [facility] SURGERY Clinical Discharge Summary PERSON INFORMATION Name CHINMAY KNIGHT Age 48 Years 1975 Sex FEMALE Language Ukrainian PCP Provider, None Marital Status Other Med Service Pain Management Surgery Acct# Arrival 12/12/2023 11:37:50 Visit Reason LUMBAR PAIN Acuity LOS 002 02:44 Address: [address] [facility] [address] Comment: PROVIDER INFORMATION VITALS INFORMATION Vital Sign [...] Dose 81 m (more content not included)... [facility] 12-11-2023 Note [id number] The history of present illness has been reviewed. There are no changes document. [Electronically Signed on: 12/12/2023 11:54 EDT] MURALI WATERMAN MD [Verified on: 12/12/2023 11:54 EDT] MURALI WATERMAN MD [Transcribed on: 12/11/2023 13:21 EDT] [facility] 12-09-[address] [facility] 11-03-2023 Miscellaneous Notes Please sign and route. Thank you CAITLIN 11/28/22 - Letter mailed documented in this encounter [facility] 11-03-2023 Telephone encounter Note Please sign and route. Thank you CAITLIN 11/28/22 - Letter mailed [facility] 10-09-2023 Miscellaneous Notes Received call from [facility] unsure how a refill was sent with [facility] context, she is a patient of [facility]. OV 11/28/22 CBC and CMP 09/15/22 Labs pended, message sent ot patient in mychart Lab work needs diagnosis. Thanks. 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 OV 11/28/22 CBC and CMP 09/15/22 Labs pended, message sent ot patient in mychart [facility] 10-09-2023 Telephone encounter Note Lab work needs diagnosis. Thanks. 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 Medicines may be dxqi-ngw-brjbnrd or prescription. You may be told to use one or more of the following: ? Medicine that is taken by mouth (orally). ? Medicine that is applied as a cream (topically). ? Medicine that is inserted directly into the vagina (suppository). Follow these instructions at home: ? Take or apply osyx-dmb-jrfozgu and prescription medicines only as told by [...] is treated with medicine. Medicines may be zjcl-sch-xyjzpsz or prescription. ? Take or apply bybr-tog-bkdguoo and prescription medicines only as told by [...] provider. Document Revised: 05/21/2021 Document Reviewed: 05/21/2021 [employer] Patient Education ? 2022 [employer] [facility] 08-15-2023 Miscellaneous Notes pcp name on rx. Sending to pcp office for refill. documented in this encounter [email or web address] 08-15-2023 Telephone encounter Note pcp name on rx. Sending to pcp office for refill. [facility] 07-25-2023 Note Education Materials Endocrinology Diabetes [...] Carrots. Green beans. Tomatoes. Peppers. Onions. Cucumbers. Portal sprouts. Grains Whole grains, such as whole-wheat or whole-grain bread, crackers, tortillas, cereal, and pasta. (more content not included)... [facility] 07-21-2023 Note Education Materials Orthopedics Foot Sprain [...] on your foot. General instructions ? Take hmlh-trz-kxsovbr and prescription medicines only as told by your health care provider. ? When you can walk without pain, w (more content not included)... [facility] 04-03-2023 Miscellaneous Notes Images from the original note were not included. documented in this encounter [facility] 04-03-2023 Telephone encounter Note Images from the original note were not included. [facility] 08-09-2020 Note Encounter Department : [facility] Progress Notes by Landy Bose APRN-LANRE at 08/09/2020 3:00 PM Author: REMBERTO McclellanService: -Author Type: Nurse Practitioner Filed: 08/09/2020 4:11 PMEncounter Date: 08/09/2020tatus: Signed [employer] Superintendent: REMBERTO Mcclellan (Nurse Practitioner) Chinmay Knight [address] [place] [address] : 45 y.o.: 1975Phone: (home) Encounter Date: 08/09/2020 Assessment Assessment and Plan: ICD-10-CM 1.Essential hypertension [id number] tartrate 37.5 mg Tab CBC W/DIFF Comprehensive Metabolic Panel Diagnoses and all orders for this visit: Essential hypertension (Primary) (Chronic) - metoprolol tartrate 37.5 mg Tab Dispense: 30 tablet; Refill: 6 - CBC W/DIFF - Comprehensive Metabolic Panel Will increase patient metoprolol to 37.5mg and have patient call in 2 week with an update. Will draw some labs in the office today. [facility] Evaluation as of 08/09/2020: -Determined [...] at visit Current Outpatient Medications Ordered in [facility] MedicationSigDispenseRefill -hydroCHLOROthiazide (HYDRODIURIL) 25 mg tabletTake 25 mg by mouth 2 times a day. -lisinopriL (ZESTRIL) 40 mg tabletTake 40 mg by mouth daily. -metoprolol tartrate 37.5 mg TabTake 37.5 mg by mouth 2 times a day.30 tablet6 -topiramate (TOPAMAX) 25 mg tabletTake 50 mg by mouth daily. No current [facility]-ordered facility-administered medications on file. No Known [...] necessary. Electronically Signed by: Landy SR 08/09/2020 [facility] 08-09-2020 Note Encounter Department : [facility] PHYSICIAN [facility] Progress Notes by REMBERTO Mcclellan at 08/09/2020 3:00 PM Author: REMEBRTO McclellanService: -Author Type: Nurse Practitioner Filed: 08/10/2020 9:48 AMEncounter Date: 08/09/2020tatus: Signed [employer] Superintendent: REMBERTO Mcclellan (Nurse Practitioner) Please inform patient that her labs are all normal. Please inform her that her kidney function is back to normal [facility] 08-09-2020 Note Encounter Department : [facility] Progress Notes by Maci Holden CMA at 08/09/2020 3:00 PM Author: Maci Holden CMAService: -Author Type: Corsage Maker Filed: 08/10/2020 12:44 PMEncounter Date: 08/09/2020tatus: Signed [employer] Superintendent: Maci Holden CMA (Corsage Maker) Left VM for patient with results and advised to return call with questions or concerns. [facility] Evaluation note No assessment inform [facility] Work Phone: Evaluation note Diagnosis Primary hypertension Unspecified essential hypertension Combined systolic and diastolic congestive heart failure, unspecified HF chronicity (CMS-HCC) Acute combined systolic and diastolic congestive heart failure (CMS-HCC) Cardiomegaly documented in this encounter [facility]* Diagnosis Primary hypertension Unspecified essential hypertension 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) ASCVD (arteriosclerotic cardiovascular disease) Unspecified cardiovascular disease Dyslipidemia Other and unspecified hyperlipidemia documented in this encounter [facility]* Diagnosis Encounter for screening mammogram for malignant neoplasm of breast- Primary documented in this encounter [facility]* Diagnosis 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)- Primary Occlusion of right radial artery (CMS-HCC) Embolism and thrombosis of unspecified artery documented in this encounter [facility]* Diagnosis Primary hypertension- Primary Unspecified essential hypertension Left ventricular failure (CMS-HCC) Left heart failure 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) Shortness of breath Acute systolic congestive heart failure (CMS-HCC) Acute on chronic HFrEF (heart failure with reduced ejection fraction) (CMS-HCC) documented in this encounter [facility]* Diagnosis Cardiomyopathy, unspecified type (CMS-HCC)- Primary documented in this encounter [facility]* Diagnosis Primary hypertension Unspecified essential hypertension 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) ASCVD (arteriosclerotic cardiovascular disease) Unspecified cardiovascular disease Dyslipidemia Other and unspecified hyperlipidemia documented [facility] encounter [facility] Author Natalie Garcia [facility] December 09, 2023 12:25pm Note Date/Time December 09, 2023 11:55am [facility] [address] [place] [address] Gastroenterology H&P Signed Patient: Chinmay Knight MR#: [id number] : 1975 Acct:[id number] Age/Sex: 48 / F Adm Date: 4 Loc: Room: Type: [facility] Attending Dr: Natalie Garcia DO [...] signed by Natalie Garcia DO> 12/09/[address] [facility] Work Phone: InstructionsNot on filedocumented [...] section and content) DATE CREATED AUTHOR 08/12/2020 [facility] DATE CREATED AUTHOR AUTHOR'S ORGANIZ ATION 07/11/2022 [facility] DATE CREATED AUTHOR AUTHOR'S ORGANIZ ATION 07/30/2022 [facility] DATE CREATED AUTHOR AUTHOR'S ORGANIZ ATION 06/16/2023 [facility] DATE CREATED AUTHOR AUTHOR'S ORGANIZ ATION 01/08/2024 [facility] DATE CREATED AUTHOR AUTHOR'S ORGANIZ ATION 04/10/2024 [facility] DATE CREATED AUTHOR AUTHOR'S ORGANIZ ATION 04/13/2024 [facility] DATE CREATED AUTHOR AUTHOR'S ORGANIZ ATION 06/13/2024 [facility] DATE CREATED AUTHOR AUTHOR'S ORGANIZ ATION 07/27/2024 [facility] Care Teams (unrecognized sec tion and [...] Member Role Status Dates Claudine Hernadez , HEEL EMERY BUFFER-C Primary Care Provider Act casey Start: December 22, 2023 Fletcher Flores MD Attending Provider Active Start: December 22, 2023 Team Status: Active Member Role Status Dates Natalie Garcia DO Attending Provider Active St art: September 29, 2023 Team Status: Inactive Member Role Status Dates Khushbu Frederick DO Mary Attending Provider Active Start: March 15, 2024 End: March 15, 2024 Battery Tester Field Relationship Specialty Start Date End Date Josi Ba MD [address] [place] [address] PCP - General Internal Medicine 09/12/22 Battery Tester Field Relationship Specialty Start Date End Date Josi Ba MD [address], [place] [address] PCP - General Internal Medicine 09/12/22 Battery Tester Field Relationship Specialty Start Date End Date Josi Ba MD [address], [place] [address] PCP - General Internal Medicine 09/12/22 Battery Tester Field Relationship Specialty Start Date End Date Josi Ba MD [address], [place] [address] PCP - General Internal Medicine 09/12/22 Battery Tester Field Relationship Specialty Start Date End Date Josi Ba MD [address], [place] [address] PCP - General Internal Medicine 09/12/22 Battery Tester Field Relationship Specialty Start Date End Date Josi Ba MD [address], [place] [address] PCP - General Internal Medicine 09/12/22 Battery Tester Field Relationship Specialty Start Date End Date Claudine Hernadez APRN-CNP [address] [place] [address] PCP - General Nurse Practitioner 01/06/24 Battery Tester Field Relationship Specialty Start Date End Date Claudine Hernadez APRN-CNP [address] [place] [address] PCP - General Nurse Practitioner 01/06/24 Battery Tester Field Relationship Specialty Start Date End Date Claudine Hernadez APRN-CNP [address] [place] [address] PCP - General Nurse Practitioner 01/06/24 Team Status: Inactive Member Role Status Dates Kerri Varela PA-C Attending Provider Active Start: June 10, 2024 End: June 10, 2024 Battery Tester Field Relationship Specialty Start Date End Date Claudine Hernadez APRN-CNP [address] [place] [address] PCP - General Nurse Practitioner 01/06/24 Battery Tester Field Relationship Specialty Start Date End Date Claudine Hernadez APRN-CNP [address] [place] [address] PCP - General Nurse Practitioner 01/06/24 Goals [...] BE BASED ON THE PRIMARY CLINICAL RECORDS. [facility]. provides no warranty or guarantee of the accuracy or completeness of information in this document.
[2024-10-12 00:33] VITALS: BP 161/70; PULSE 87; TEMP 36.6; O2SAT 97; BMI 43.0
--- NOTE | 2024-10-12 00:50 | XR_ITS ---
[facility] [place] [id number] Patient Name: CHINMAY HANNAH MRN: [id number] date: 1975 Sex: F Assigned Patient Location: ER Current Patient Location: Accession/Order Number: [id number] Exam Date: 10/12/2024 08:25 Report Date: 10/12/2024 08:26 At the request of: ALISHA GALVEZ MD Procedure: XR knee RT 3V RIGHT KNEE - 3 views COMPARISON: None CLINICAL DATA: Right leg pain at the knee the past couple days. No injury. Previous joint replacement. AP, lateral and internal oblique views were obtained. A knee prosthesis with long stems is visualized. The hardware appears intact and in appropriate position. No acute fractures or dislocation are noted. There is no significant knee effusion or focal soft tissue swelling. XR/XR knee RT 3V IMPRESSION: SATISFACTORY APPEARANCE OF KNEE PROSTHESIS. NO ACUTE BONY FINDINGS. Impression dictated by: Candy Mccarty M.D. 10/12/2024 8:26 AM Dictation Location: [place] [address] Electronically authenticated by: [id number] Y Date: 10/12/2024 08:26
--- NOTE | 2024-10-12 00:51 | ED.LOWEXI1 ---
HPI HPI - Extremity Injury (Lower) General Chief Complaint: Extremity Injury, Lower Stated Complaint: RIGHT LEG HURTS Time Seen by Provider: 10/12/24 00:16 Source: patient Mode of arrival: Wheelchair History of Present Illness HPI Narrative: This 49-year-old female with a history of chronic back pain with lumbar stenosis presents for evaluation of right knee pain. She denies any injury. She has had a knee replacement in the past. Her significant other states he felt a lump in the area lateral to her incision on the right knee. She is not having any calf pain or swelling. She does have a history of chronic back pain with lumbar radiculopathy but she states this feels different. She is not currently with pain management. She has an appointment later today with her PCP. She was formally taking gabapentin but allegedly that turned her into a bitch according to her significant other. She was formally on Eliquis for a DVT in her arm but is not currently on Eliquis. She denies any chest pain or shortness of breath. She denies any significant back pain at this time. She has no redness or swelling to her right calf. Related Data Home Medications ?Medication ?Instructions ?Recorded ?Confirmed aspirin 81 mg tablet,delayed 81 mg PO DAILY 03/13/23 10/12/24 release (Lynn Low Dose Aspirin) bumetanide 0.5 mg tablet 1 mg PO DAILY 03/13/23 10/12/24 empagliflozin 10 mg tablet 10 mg PO DAILY 03/13/23 10/12/24 (Jardiance) metoprolol succinate 100 mg 100 mg PO DAILY 03/13/23 10/12/24 tablet,extended release 24 hr omeprazole 40 mg capsule,delayed 40 mg PO DAILY 03/13/23 10/12/24 release rosuvastatin 10 mg tablet 20 mg PO DAILY 03/13/23 10/12/24 spironolactone 25 mg tablet 25 mg PO DAILY 03/13/23 10/12/24 isosorbide mononitrate 30 mg 30 mg PO DAILY 06/02/23 10/12/24 tablet,extended release 24 hr Previous Rx's ?Medication ?Instructions ?Recorded ondansetron 4 mg disintegrating 4 mg PO Q6H PRN nausea and 06/10/24 tablet vomiting #12 tabs prednisone 10 mg tablet 10 mg PO DAILY #30 tabs 09/25/24 Allergies Allergy/AdvReac Type Severity Reaction Status Date / Time keflex AdvReac Intermediate Hallucinati Uncoded 10/12/24 00:42 ng Opioid HPI Opioid Management Most Recent Pain and Opioid Data: Last Pain Scale 10 Today, 01:17 Last MAR Pain Assessment Today, 01:17 Review of Systems ROS Status of ROS 10 or more systems reviewed and unremarkable except as noted in history and below [facility] Medical History (Updated 10/12/24 @ 01:54 by Khushbu Hernandez MD) Osteoarthritis ?M19.90 - Unspecified osteoarthritis, unspecified site (ICD-10) Heartburn ?R12 - Heartburn (ICD-10) Smoker ?F17.200 - Nicotine dependence, unspecified, uncomplicated (ICD-10) HTN (hypertension) ?I10 - Essential (primary) hypertension (ICD-10) CHF (congestive heart failure) ?I50.9 - Heart failure, unspecified (ICD-10) Surgical History History of hysterectomy ?Z90.710 - Acquired absence of both cervix and uterus (ICD-10) History of shoulder surgery ?Z98.890 - Other specified postprocedural states (ICD-10) History of knee replacement ?Z96.659 - Presence of unspecified artificial knee joint (ICD-10) Social History Smoking status: Current every day smoker Little interest or pleasure in doing things: not at all Feeling down, depressed, or hopeless: not at all Exam Narrative Exam Narrative: Vital signs and Nursing Notes reviewed: Patient is afebrile with a normal pulse, blood pressure is elevated at 161/70, she is not hypoxic with pulse ox of 97% on room air General: Awake, alert, oriented, no acute distress, lying comfortably on the stretcher HEENT: Normocephalic atraumatic, mucous membranes are moist and pink, eyes are clear, normal conjunctiva, vision is grossly intact Chest: Lungs are clear to auscultation with good air entry, there is no wheezing rhonchi or rales appreciated no accessory muscle use, patient is speaking in complete sentences-no chest wall tenderness to palpation CVS: Regular rate and rhythm S1-S2, no murmurs rubs or gallops, pulses are brisk and equal bilaterally Extremities: There is a large incision overlying both knees, I do not appreciate any redness, effusion or other notable abnormality to the right knee. Patient easily bends and flexes. There is no swelling, redness or tenderness to the right calf. There is no redness or swelling to the right medial thigh. Skin: Normal in appearance without rash,pallor, petechiae or purpura Neuro: No focal deficits Constitutional Vital Signs, click to edit/add: Last Vital Signs Temp 98 F 10/12/24 00:33 Pulse 87 10/12/24 00:33 Resp 16 10/12/24 00:33 BP 161/70 H 10/12/24 00:33 Pulse Ox 97 10/12/24 00:33 O2 Del Method Room Air 10/12/24 00:33 Course Vital Signs Vital signs: Vital Signs Temperature 98 F 10/12/24 00:33 Pulse Rate 87 10/12/24 00:33 Respiratory Rate 16 10/12/24 00:33 Blood Pressure 161/70 H 10/12/24 00:33 Pulse Oximetry 97 10/12/24 00:33 Oxygen Delivery Method Room Air 10/12/24 00:33 Temperature 98 F 10/12/24 00:33 Pulse Rate 87 10/12/24 00:33 Respiratory Rate 16 10/12/24 00:33 Blood Pressure 161/70 H 10/12/24 00:33 Pulse Oximetry 97 10/12/24 00:33 Oxygen Delivery Method Room Air 10/12/24 00:33 MDM - Extremity Injury (Lower) MDM Narrative Medical decision making narrative: This 49-year-old female with a history of chronic back pain with lumbar stenosis with history of lumbar radiculopathy and neurogenic claudication presents for evaluation of right knee pain. She denies any injury. She has had knee surgery in the past. She had knee replacement surgery many years ago. She has a large healed incision over her right knee. She states that her significant other felt a lump in this area. I do not appreciate any lump, effusion or bony deformity. I did review her [facility] report. She last received gabapentin which her boyfriend states made her a bitch and Tye on 09/25/2024, a little over 2 weeks ago. She states she was kicked out of pain management but it is unclear exactly why. She does have an appointment with her PCP later today. She has formally been on Eliquis for a DVT in her arm that occurred after she had a cardiac catheterization. She has no sign of DVT on her exam. An x-ray of the right knee and D-dimer was ordered due to her history of DVTs in the past as well as chronic back pain and likely some degree of immobilization. Patient's D-dimer is normal. X-ray of the right knee shows normal-appearing hardware with no effusion, bony deformity, dislocation or other abnormality. The results of the x-ray and D-dimer were discussed with the patient and her significant other. She was medicated with a dose of Tye and is comfortable in the emergency department. She has an appointment later today with her PCP. 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 The patient states she is trying to get preapproval for an MRI of her back. I explained to her this may be some degree of lumbar radiculopathy as she is known to have that as I do not find anything specifically wrong with the knee. Discharge Plan Discharge Chief Complaint: Extremity Injury, Lower Clinical Impression: Knee pain, Lumbar radiculopathy Patient Disposition: Home, Self-Care Time of Disposition Decision: 01:54 Condition: Good Prescriptions / Home Meds: No Action ondansetron 4 mg tablet,disintegrating 4 mg PO Q6H PRN (Reason: nausea and vomiting) Qty: 12 0RF prednisone 10 mg tablet 10 mg PO DAILY Qty: 30 0RF Rx Instructions: 4 tabs x 3 days, 3 tabs x 3 days, 2 tabs x 3 days, 1 tab x 3 days metoprolol succinate 100 mg tablet extended release 24 hr 100 mg PO DAILY omeprazole 40 mg capsule,delayed release(DR/EC) 40 mg PO DAILY aspirin [Lynn Low Dose Aspirin] 81 mg tablet,delayed release (DR/EC) 81 mg PO DAILY spironolactone 25 mg tablet 25 mg PO DAILY bumetanide 0.5 mg tablet 1 mg PO DAILY rosuvastatin 10 mg tablet 20 mg PO DAILY Jardiance 10 mg tablet 10 mg PO DAILY isosorbide mononitrate 30 mg tablet extended release 24 hr 30 mg PO DAILY Print Language: Cypriot Instructions: Lumbar Radiculopathy (ED), Knee Pain (ED) Referrals: ISABELLA MOSCOSO [Primary Care Provider, Family Practice] - 1 week
[2024-10-12] MEDS: HYDROCODONE/ACET 5-325 MG TABLET 1 TAB PO (01:17)
== END 2024-10-12 02:18 | disposition home or self-care (01) ==
PROVIDERS: Emergency Provider Emergency Medicine; PCP Nurse Practitioner Family
DX: M25.561 Pain in right knee (principal); M54.16 Radiculopathy, lumbar region; Z96.651 Presence of right artificial knee joint
CPT/HCPCS: 36415; 73562; 85378; 99284